=== PATIENT | female | born 1945 | race Caucasian/White ===

== ENCOUNTER 2016-11-24 05:46 | Outpatient (CLI) | payer MEDICARE ==
[~2016-11-24] VITALS: Ht 170.2 cm; Wt 122.5 kg
[~2016-11-24 05:46] MED LIST: ALBU8.5H2 IH; ALBUTEROL 90 MCG; ALPR.5T PO; AMLO1CAP31 PO; ASPI-84 PO; ATOR20TA66 PO; CALC-250 PO; CEFP500T4 PO; CHOL10003; CHOL10003 PO; CHOL2000 PO; CIPR-225 PO; CPR500T PO; ENXP40I.4 SQ; ERGO400C PO; ESTR0.3T PO; ESTR0.5T PO; EZET1TAB43 PO; FESO8TAB PO; FEXO-104 PO; FLONASE 50 MCG; FLT05NA16 NSEACH; FLUT16SP22 NS; HYDR-3454 PO; HYDR-3730 PO; HYDR1TAB PO; HYOS0.1217 SL; METH4TAB PO; MNTL10T PO; MTP100TCR PO; OXYC-309 PO; OXYC10TA8 PO; PREMARIN CREAM; SLMFT1E INH; SOLI10TA4 PO; SRTR100T PO; TR1C15; TRAZ50TA67 PO; TRIA1CAP4 PO
== END 2016-11-24 14:11 ==
LOC: PREOP 05:46
PROVIDERS: ATTEND Surgery Pediatric Surgery
DX: Z01.818 Encounter for other preprocedural examination (principal); Z86.010 Personal history of colon polyps

== ENCOUNTER 2016-11-27 11:29 | Day surgery (SDC) | payer MEDICARE ==
[~2016-11-27] VITALS: Ht 170.2 cm; Wt 122.5 kg
[2016-11-27] MEDS ORDERED: NS IV 500 ML 500 ML ONE (11:37)
[2016-11-27] MEDS ORDERED: LIDOCAINE JELLY 2% (XYLOCAINE) 5 ML TUBE MM PRN (11:45)
[2016-11-27] MEDS ORDERED: FLUMAZENIL (ROMAZICON) 0.1 MG/ML 5 ML VIAL INJ PRN (11:45)
[2016-11-27] MEDS ORDERED: NALOXONE 0.4 MG/ML 1 ML (NARCAN) VIAL IVP PRN (11:45)
[2016-11-27] MEDS ORDERED: NS IV 500 ML 500 ML IV PRN (12:00)
[2016-11-27 12:02] VITALS: BP 139/82
[2016-11-27] MEDS ORDERED: LIDOCAINE JELLY 2% (XYLOCAINE) 5 ML TUBE ONE (12:08)
[2016-11-27] MEDS ORDERED: fentaNYL INJECTION 100 MCG/2 ML AMP ONE ×2 (12:08)
[2016-11-27] MEDS ORDERED: MIDAZOLAM 2 MG/2 ML (VERSED) VIAL ONE ×4 (12:09)
[2016-11-27] MEDS: MIDAZOLAM 2 MG/2 ML (VERSED) VIAL IVP PRN ×3 (12:10→12:18)
[2016-11-27] MEDS: fentaNYL INJECTION 100 MCG/2 ML AMP IVP PRN ×2 (12:11→12:15)
--- NOTE | 2016-11-27 12:44 | Progress Note-Pre Operative ---
Pre-Operative Progress Note H&P Reviewed The H&P was reviewed, patient examined and no changes noted. Date H&P Reviewed: November 27, 2016 Time H&P Reviewed: 11:20 Pre-Operative Diagnosis: hx colon polyp, family hx colon ca JACOBO VALENCIA MD November 27, 2016 12:44 pm
--- NOTE | 2016-11-27 12:44 | Conscious Sedation/ASA ---
Conscious Sedation Pre-Proced Time Reviewed: 11:20 ASA Class: 2 Airway Mallampati Classification: ([place] appropriate class) I. II. III, IV Lungs Heart ASA score ASA 1: a normal healthy patient ASA 2: a patient with a mild systemic disease (mid diabetes, controlled hypertension, obesity ASA 3: a patient with a severe systemic disease that limits activity (angina , COPD, prior Myocardial infarction) ASA 4: a patient with an incapacitating disease that is a constant threat to life (CHF, renal failure) ASA 5: a moribund patient not expected to survive 24 hrs. (ruptured aneurysm) ASA 6: a declared brain patient whose organs are being harvested. For emergent operations, add the letter E after the classification Grade 3 Sedation Plan: Analgesia, Amnesia, Plan communicated to team members, Discussed options with patient/fam, Discussed risks with patient/fam Note The patient is an appropriate candidate to undergo the planned procedure, sedation, and anesthesia. The patient immediately re-assessed prior to indication. JACOBO VALENCIA MD November 27, 2016 12:44 pm
--- NOTE | 2016-11-27 12:46 | Progress Note-Post Operative ---
Post-Operative Progess Note Surgeon (s)/Hr Clerk (s) Surgeon JACOBO VALENCAI MD Hr Clerk: none Pre-Operative Diagnosis hx colon polyp, family hx colon ca Post-Operative Diagnosis chronic stage 1-2 ext and int hemorrhoids, mild sigmoid diverticulosis. Post-Op Procedure Note Date of Procedure: November 27, 2016 Name of Procedure Performed: Colonoscopy Description of the Procedure: Colonoscopy Findings of the Procedure . Anesthesia Type CS Estimated blood loss (mL): minimal Specimen(s) collected/removed none JACOBO VALENCIA MD November 27, 2016 12:46 pm
--- NOTE | 2016-11-27 12:47 | Discharge Inst-Surgical ---
D/C Lap Instructions-ANNIE Follow Up 5 years Activity as tolerated High Fiber Diet 25g or more per day Avoid Alcohol, Caffeine, Spicy [place] and Acid foods. Drink 64 fluid oz or more of fluids per day. Symptoms to Report: Fever over 101 degree F, Nausea/Vomiting If any problems/questions: Contact your physician or go to Emergency Room JACOBO VALENCIA MD November 27, 2016 12:47 pm
[2016-11-27 13:00] VITALS: BP 134/78
[2016-11-27 13:29] VITALS: BP 136/70
[2016-11-27 13:30] VITALS: BP 136/70
--- NOTE | 2016-11-27 13:41 | OPERATIVE REPORT ---
DATE OF SERVICE: 11/27/2016 PRIMARY CARE PHYSICIAN: Dr. Broderick. PREOPERATIVE DIAGNOSIS: History of colon polyp, family history of colon cancer. POSTOPERATIVE DIAGNOSIS: Chronic stage I external and internal hemorrhoids, mild sigmoid diverticulosis. PROCEDURE: Colonoscopy. SURGEON: Dr. Clements. ANESTHESIA: Conscious sedation. ESTIMATED BLOOD LOSS: Minimal. FINDINGS: Chronic stage I-II external and internal hemorrhoids, not actively edematous or inflamed and no bleeding. There was a mild or early sigmoid diverticulosis. The remainder of the colon was normal. There were no polyps identified. The patient is a 71-year-old female who we have seen before in the past. She underwent a ventral abdominal incisional hernia repair with mesh on 06/04/2016. She is doing well from that standpoint; however, is in need of a followup colonoscopy. She has had a total of three colonoscopies done in the past with the last one done in 2008 where two hyperplastic polyps were identified. She reports for the most part she is having normal bowel movements. She does not report any major issues of diarrhea or constipation, as well as no red blood per rectum or any dark tarry stools. She does have a family history of colon cancer with her father having the disease. The patient was brought to the endoscopy suite, laid in the left lateral decubitus position. After adequate IV pain and sedating medications and general anesthesia, a digital rectal examination was performed. Chronic stage II external internal hemorrhoids were identified which are not actively edematous or inflamed and no bleeding. Normal sphincter tone was felt and there were no palpable masses. The endoscope was then intubated to the anus and rectum and gently insufflated. The endoscope was then advanced to the [facility] [place] in the rectum with no polyps or any neoplasms identified. A mild or early sigmoid diverticulosis identified. There were no mucosal inflammatory changes to indicate any active diverticulitis. The endoscope was then advanced to the remainder of the descending, transverse, ascending colon to the cecum. These segments were normal. There were no polyps or any neoplasms identified throughout the colon or rectum. The endoscope was then slowly withdrawn while taking a second look and suctioning residual air with no additional findings. The patient tolerated the procedure well. We will recommend a high fiber diet with at least 25 grams of fiber daily to promote soft stools on a daily basis. We will also recommend a followup colonoscopy in approximately 5 years due to her family history of colon cancer. Job ID: [id number] DocumentID: [id number] Dictated Date: 11/27/2016 12:39:26 Property Utilization Officer Date: 11/27/2016 13:41:19 Dictated By: JACOBO CLEMENTS MD
== END 2016-11-27 13:31 | disposition home or self-care (01) ==
LOC: ENDO 11:29
PROVIDERS: ATTEND Surgery Pediatric Surgery
DX: Z12.11 Encounter for screening for malignant neoplasm of colon (principal); K57.30 Diverticulosis of large intestine without perforation or abscess without bleeding; K64.0 First degree hemorrhoids; Z86.010 Personal history of colon polyps; Z80.0 Family history of malignant neoplasm of digestive organs; I10 Essential (primary) hypertension; E78.00 Pure hypercholesterolemia, unspecified; G47.33 Obstructive sleep apnea (adult) (pediatric); J45.909 Unspecified asthma, uncomplicated; E66.01 Morbid (severe) obesity due to excess calories; Z68.41 Body mass index [BMI] 40.0-44.9, adult; Z79.899 Other long term (current) drug therapy

== ENCOUNTER → 2016-12-22 | Outpatient (CLI) | payer MEDICARE | LOC: RAD 09:22 | PROVIDERS: ATTEND Internal Medicine | DX: Z12.31 Encounter for screening mammogram for malignant neoplasm of breast (principal) | CPT/HCPCS: 77067 ==

== ENCOUNTER 2016-12-29 01:03 | Observation (INO) | payer MEDICARE ==
[~2016-12-29] VITALS: Ht 170.2 cm; Wt 127.1 kg
[2016-12-29] VITALS (10 sets, daily range): BP systolic 123–157; BP diastolic 59–82
[2016-12-29 01:23] LABS: BASOPHILS % (AUTO) 0 % (0-10); EOSINOPHILS # (AUTO) 0.3 10^3/uL (0.0-0.3); EOSINOPHILS % (AUTO) 3 % (0-10); LYMPHOCYTES # (AUTO) 2.6 X 10^3 (1.0-4.0); LYMPHOCYTES % (AUTO) 26 % (12-44); MEAN CORPUSCULAR HEMOGLOBIN 29 PG (25-34); MEAN CORPUSCULAR HGB CONC 33 G/DL (32-36); MEAN CORPUSCULAR VOLUME 87 FL (80-99); MEAN PLATELET VOLUME 9.7 FL (7.4-10.4); MONOCYTES # (AUTO) 0.8 X 10^3 (0.0-1.0); MONOCYTES % (AUTO) 8 % (0-12); NEUTROPHILS # (AUTO) 6.2 X 10^3 (1.8-7.8); NEUTROPHILS % (AUTO) 63 % (42-75); PLATELET COUNT 212 10^3/uL (130-400); RED BLOOD COUNT 4.95 10^6/uL (4.35-5.85); RED CELL DISTRIBUTION WIDTH 14.6 % (10.0-14.5)
[2016-12-29 01:33] LABS: BILIRUBIN,URINE NEGATIVE (NEGATIVE); KETONES,URINE NEGATIVE (NEGATIVE); LEUKOCYTE ESTERASE ,URINE 3+ (NEGATIVE); NITRITE,URINE POSITIVE (NEGATIVE); PH,URINE 6 (5-9); PROTEIN,URINE NEGATIVE (NEGATIVE); UROBILINOGEN,URINE NORMAL (NORMAL)
[2016-12-29 01:33] LABS: INR 0.9 (0.8-1.4); PROTHROMBIN TIME PATIENT 11.5 SEC (12.2-14.7)
[2016-12-29 01:44] LABS: WBC,URINE 25-50 /HPF
[2016-12-29 01:44] LABS: ALANINE AMINOTRANSFERASE 22 U/L (0-55); ALBUMIN 3.8 G/DL (3.2-4.5); ANION GAP 13 MMOL/L (5-14); ASPARTATE AMINO TRANSFERASE 22 U/L (5-34); BILIRUBIN,TOTAL 0.7 MG/DL (0.1-1.0); BLOOD UREA NITROGEN 20 MG/DL (7-18); BUN/CREATININE RATIO 21; CALCIUM 9.3 MG/DL (8.5-10.1); CARBON DIOXIDE 22 MMOL/L (21-32); CHLORIDE 106 MMOL/L (98-107); CREATININE SERUM 0.96 MG/DL (0.60-1.30); GFR ESTIMATED 58; GLUCOSE 113 MG/DL (70-105); POTASSIUM 4.3 MMOL/L (3.6-5.0); SODIUM 141 MMOL/L (135-145)
[2016-12-29 01:50] LABS: TROPONIN I < 0.30 NG/ML (<0.30)
[2016-12-29] MEDS ORDERED: cefTRIAXone INJECTION 1,000 MG in NS (IVPB) 50 ML IV ONE (02:00)
--- NOTE | 2016-12-29 02:13 | ED Neurological Problem ---
General Chief Complaint: Neuro-Stroke Like Symptoms Stated Complaint: DISORIENTED Nursing Triage Note: brought in by [facility] for altered mental status, delayed speech, last known well time approx. 2230 12/28/16 Nursing Sepsis Screen: No Definite Risk Source: patient, family Exam Limitations: no limitations History of Present Illness Time seen by provider: 01:06 Initial Comments This 71-year-old woman presents to the emergency room accompanied by her with complaints of stuttering and slow speech. She started feeling this way upon waking from sleep about 30 minutes prior to arrival. Her last known well time was at 22:15 when she went to bed. She arrives via EMS and her [place] stroke screening was negative. Fingerstick blood sugar was 120. Rhythm per EMS was normal sinus rhythm. Stroke activation was paged and patient was sent to CT. She also complains of some right posterior knee pain. Patient does feel anxious. She denies any focal numbness or weakness. Her systems project manager is Dr. Ang. Her primary care provider is Dr. Darnell. Allergies and Home Medications Allergies Coded Allergies: No Known Drug Allergies (Verified , 01/21/09) Home Medications Albuterol 8.5 Gm Hfa.aer.ad, 2 PUFF IH PRN Q4H, (Reported) Amlodipine Besylate/Benazepril 1 Each Capsule, 1 EACH PO DAILY, Ref 0 (Reported) Aspirin 81 Mg Tablet.dr, 81 MG PO daily, Ref 0 (Reported) Atorvastatin 20 Mg Tablet, 20 MG PO HS, (Reported) Cholecalciferol 5,000 Unit Capsule, 5,000 UNIT PO DAILY, (Reported) Estradiol 0.5 Mg Tablet, 0.5 MG PO DAILY, (Reported) Fluticasone Propionate 16 Gm Naspr, 1 SPRAY NS NEEDED, (Reported) Metoprolol Succinate 100 Mg Tab, 100 MG PO BID, Ref 0 (Reported) Montelukast Sodium 10 Mg Tab, 10 MG PO HS, Ref 0 (Reported) Salmeterol Xinaf/Fluticasone 1 Diskus Inhp, 0 DISKUS INH DAILY PRN, (Reported) Sertraline Hcl 100 Mg Tab, 150 MG PO DAILY, Ref 0 (Reported) TAKE 1 1/2 OF 100 MG TAB TO TOTAL 150MG Trazodone Hcl 50 Mg Tablet, 50 MG PO HS, Ref 0 (Reported) Triamterene/Hydrochlorothiazid 1 Each Capsule, 1 EACH PO DAILY, (Reported) Constitutional: no symptoms reported Eyes: No Symptoms Reported Ears, Nose, Mouth, Throat: no symptoms reported Respiratory: no symptoms reported Cardiovascular: no symptoms reported Gastrointestinal: no symptoms reported Genitourinary: no symptoms reported : No Musculoskeletal: see HPI Skin: no symptoms reported Psychiatric/Neurological: See HPI Endocrine: No Symptoms Reported Past Duolkcm-Tplndv-Oqbzxh Hx Patient Social History Alcohol Use: Denies Use Recreational Drug Use: No Smoking Status: Never a Smoker 2nd Hand Smoke Exposure: No Recent Foreign Travel: No Contact w/Someone Who Travel: No Recent Infectious Disease Expo: No Recent Hopitalizations: No Immunizations Up To Date Tetanus Booster (TDap): Less than 5yrs Date of Pneumonia Vaccine: May 22, 2015 Date of Influenza Vaccine: May 22, 2016 Seasonal Allergies Seasonal Allergies: No Surgeries HX Surgeries: Yes (HIATAL HERNIA, L TKR, R HIP REPLACEMENT, BLADDER x8, BILAT FOOT SX) Surgeries: Bladder Surgery, Gallbladder, Hysterectomy, Joint Replacement, Orthopedic Respiratory Hx Respiratory Disorders: Yes Respiratory Disorders: Asthma, Sleep Apnea Cardiovascular Hx Cardiac Disorders: Yes (history of tachycardia) Cardiac Disorders: High Cholesterol, Hypertension Neurological Hx Neurological Disorders: No Reproductive System : No Hx Reproductive Disorders: No Sexually Transmitted Disease: No 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 Genitourinary Hx Genitourinary Disorders: Yes (FOR STRESS INCONTINENCE, BOTOX INJECTIONS INTO BLADDER ) Genitourinary Disorders: UTI-Chronic Gastrointestinal Hx Gastrointestinal Disorders: Yes Gastrointestinal Disorders: Abdominal Hernia, Diverticulosis Musculoskeletal Hx Musculoskeletal Disorders: Yes Musculoskeletal Disorders: Arthritis Endocrine Hx Endocrine Disorders: No Endocrine Disorders: Diabetes, Non-Insulin dep HEENT HX ENT Disorders: Yes (GLASSES) HEENT Disorders: Cataract Loss of Vision: Bilateral Hearing Impairment: Denies Cancer Hx Cancer: No Psychosocial Hx Psychiatric Problems: Yes Behavioral Health Disorders: Anxiety, Depression Integumentary HX Skin/Integumentary Disorder: No Blood Transfusions Hx Blood Disorders: No Physical Exam Vital Signs Vital Sign - Last 12Hours 12/29/16 01:09 Temp 99.3 Pulse 52 Resp 16 B/P (MAP) 173/80 Pulse Ox 97 O2 Delivery Room Air Capillary Refill : Less Than 3 Seconds General Appearance: WD/WN, no apparent distress HEENT: PERRL/EOMI, normal ENT inspection, pharynx normal Neck: normal inspection Respiratory: lungs clear, normal breath sounds, no respiratory distress, no accessory muscle use Cardiovascular: regular rate, rhythm, no edema, no murmur Gastrointestinal: normal bowel sounds, non tender, soft Extremities: normal inspection, no pedal edema Neurologic/Psychiatric: no motor/sensory deficits, alert, normal mood/affect, oriented x 3, other (stuttering with delayed speech) Crainal Nerves: normal hearing, PERRL Coordination/Gait: normal finger to nose, abnormal gait (slow deliberate gait) Motor/Sensory: no motor deficit, no sensory deficit, no pronator drift Skin: normal color, warm/dry Stroke NIH Stroke Scale Assessment Level of Consciousness: 0=Alert Level of Consciousness-[place]: 0=Answers both month/age LOC Commands: 0=Performs both tasks Gaze: 0=Normal Visual [place]: 0=No visual loss Facial Movement (Facial Paresi: 0=Normal symmetrical mnt Motor Function-Arms Right: 0=No drift Motor Function-Arms Left: 0=No drift Motor Function-Legs Right: 0=No drift Limb Ataxia: 0=Absent Sensory: 0=Normal:no loss Best Language: 0=No aphasia Dysarthria: 0=Normal Extinction & Inattention: 0=No abnormality NIH Stroke Scale Score: 0 Progress/Results/Core Measures Results/Orders Lab Results Laboratory Tests Test 12/29/16 01:10 12/29/16 01:20 Range/Units White Blood Count 10.0 4.3-11.0 10^3/uL Red Blood Count 4.95 4.35-5.85 10^6/uL Hemoglobin 14.3 11.5-16.0 G/DL Hematocrit 43 35-52 % Mean Corpuscular Volume 87 80-99 FL Mean Corpuscular Hemoglobin 29 25-34 PG Mean Corpuscular Hemoglobin Concent 33 32-36 G/DL Red Cell Distribution Width 14.6 H 10.0-14.5 % Platelet Count 212 130-400 10^3/uL Mean Platelet Volume 9.7 7.4-10.4 FL Neutrophils (%) (Auto) 63 42-75 % Lymphocytes (%) (Auto) 26 12-44 % Monocytes (%) (Auto) 8 0-12 % Eosinophils (%) (Auto) 3 0-10 % Basophils (%) (Auto) 0 0-10 % Neutrophils # (Auto) 6.2 1.8-7.8 X 10^3 Lymphocytes # (Auto) 2.6 1.0-4.0 X 10^3 Monocytes # (Auto) 0.8 0.0-1.0 X 10^3 Eosinophils # (Auto) 0.3 0.0-0.3 10^3/uL Basophils # (Auto) 0.0 0.0-0.1 10^3/uL Prothrombin Time 11.5 L 12.2-14.7 SEC INR Comment 0.9 0.8-1.4 Activated Partial Thromboplast Time 22 L 24-35 SEC D-Dimer 0.67 H 0.00-0.49 UG/ML Sodium Level 141 135-145 MMOL/L Potassium Level 4.3 3.6-5.0 MMOL/L Chloride Level 106 98-107 MMOL/L Carbon Dioxide Level 22 21-32 MMOL/L Anion Gap 13 5-14 MMOL/L Blood Urea Nitrogen 20 H 7-18 MG/DL Creatinine 0.96 0.60-1.30 MG/DL Estimat Glomerular Filtration Rate 58 BUN/Creatinine Ratio 21 Glucose Level 113 H 70-105 MG/DL Calcium Level 9.3 8.5-10.1 MG/DL Total Bilirubin 0.7 0.1-1.0 MG/DL Aspartate Amino Transf (AST/SGOT) 22 5-34 U/L Alanine Aminotransferase (ALT/SGPT) 22 0-55 U/L Alkaline Phosphatase 79 40-136 U/L Troponin I < 0.30 <0.30 NG/ML Total Protein 7.0 6.4-8.2 G/DL Albumin 3.8 3.2-4.5 G/DL Urine Color YELLOW Urine Clarity SLIGHTLY CLOUDY Urine pH 6 5-9 Urine Specific [place] 1.010 L 1.016-1.022 Urine Protein NEGATIVE NEGATIVE Urine Glucose (UA) NEGATIVE NEGATIVE Urine Ketones NEGATIVE NEGATIVE Urine Nitrite POSITIVE H NEGATIVE Urine Bilirubin NEGATIVE NEGATIVE Urine Urobilinogen NORMAL NORMAL MG/DL Urine Leukocyte Esterase 3+ H NEGATIVE Urine RBC (Auto) 1+ H NEGATIVE Urine RBC NONE /HPF Urine WBC 25-50 H /HPF Urine Crystals NONE /LPF Urine Bacteria LARGE H /HPF Urine Casts NONE /LPF Urine Mucus NEGATIVE /LPF Urine Culture Indicated YES My Orders Orders - WOODY CAMPO MD Ct Head Wo (12/29/16 01:13) Cbc With Automated Diff (12/29/16 01:15) Protime With Inr (12/29/16 01:15) Partial Thromboplastin Time (12/29/16 01:15) Comprehensive Metabolic Panel (12/29/16 01:15) Fibrin Degradation Products (12/29/16 01:15) Troponin I (12/29/16 01:15) Ua Culture If Indicated (12/29/16 01:15) Chest 1 View, Ap/Pa Only (12/29/16 01:15) Ekg Tracing (12/29/16 01:15) Saline Lock/Iv-Start (12/29/16 01:15) Saline Lock/Iv-Start (12/29/16 01:15) Vital Signs-Stroke Q1H (12/29/16 01:15) O2 (12/29/16 01:15) Intake & Output 06,14,22 (12/29/16 01:15) Monitor-Rhythm Ecg Trace Only (12/29/16 01:15) Dysphagia Screening Tool (12/29/16 01:15) Urine Culture (12/29/16 01:20) Us Venous Lower Ext Rt (12/29/16 01:55) Ceftriaxone Injection (Rocephin Injectio (12/29/16 02:00) Aspirin Tablet (Aspirin Tablet) (12/29/16 02:15) Medications Given in ED Current Medications Medications Dose Ordered Sig/Lisa Route Start Time Stop Time Status Last Admin Dose Admin Aspirin 325 mg ONCE ONCE PO 12/29/16 02:15 12/29/16 02:16 DC 12/29/16 02:12 325 MG Ceftriaxone Sodium 1000 mg/ Sodium Chloride 50 ml @ 100 mls/hr ONCE ONCE IV 12/29/16 02:00 12/29/16 02:29 DC 12/29/16 02:05 100 MLS/HR Vital Signs/I&O Vital Sign - Last 12Hours 12/29/16 12/29/16 12/29/16 01:09 01:30 01:30 Temp 99.3 Pulse 52 49 Resp 16 21 B/P (MAP) 173/80 152/77 Pulse Ox 97 94 97 O2 Delivery Room Air Room Air Blood Pressure Mean: 111 Progress Note : Progress Note Stroke activation was paged after initial assessment. NIH stroke score was zero. Patient had subtle stuttering and delay of speech which appeared to resolve completely during her ER stay. Patient was not a TPA candidate due to very minor symptoms and low suspicion of stroke. Patient agrees with my assessment that TPA administration is not worth the risk. Urinary tract infection was identified. Urine cultures from prior visits were reviewed. Rocephin was selected as initial antibiotic therapy. Case was reviewed with Dr. Darnell who agrees with admission for observation and neuro checks. ECG Initial ECG Impression Date: Dec 29, 2016 Initial ECG Impression Time: 02:03 Initial ECG Rate: 51 Initial ECG Rhythm: Normal Sinus Comment Normal sinus rhythm with right bundle branch block and LVH. No ST elevation or depression. Diagnostic Imaging Diagonstic Imaging: Xray Plain Films/CT/US/NM/MRI: chest Comments Chest x-ray viewed by me and report available. No acute abnormalities appreciated. Diagonstic Imaging: CT Plain Films/CT/US/NM/MRI: head Comments CT head viewed by me and Stat Rad report reviewed. No acute abnormalities appreciated. Departure Communication Time/Spoke to Admitting Phy: 01:57 Impression Impression: Primary Impression: Dysarthria Additional Impression: Urinary tract infection Qualified Codes: N39.0 - Urinary tract infection, site not specified Disposition: ADMITTED INPATIENT Condition: Improved Decision to Admit Reason: Admit from ER (General) Decision to Admit/Date: Dec 29, 2016 Time/Decision to Admit Time: 01:57 Departure-Patient Inst. Referrals: ANAY DARNELL DO (PCP/Family) Primary Care Physician WOODY CAMPO MD Dec 29, 2016 02:13
[2016-12-29] MEDS ORDERED: ASPIRIN 325 MG (5 GR) TABLET PO ONE (02:15)
--- NOTE | 2016-12-29 07:18 | Diagnostic Imaging Report ---
PROCEDURE: CT head without contrast. TECHNIQUE: Multiple contiguous axial images were obtained through the brain without the use of intravenous contrast. INDICATION: CVA. FINDINGS: There is no mass, shift of midline or hemorrhage to suggest an acute intracranial abnormality. There is no evidence for an asymmetric hyperdense vessel either. The ventricles are not abnormally dilated and appear stable when compared to the prior exam of 06/15/14. There is cortical atrophy present. The degree of atrophy is consistent with the patient's age. The bone windows show no sign of a fracture or destructive lesion. The orbits are symmetrical and within normal limits. The sinuses are generally clear. IMPRESSION: 1. There is no evidence for an acute intracranial abnormality. When compared to the prior study, there has been no significant change. 2. If clinical concern regarding an underlying abnormality persists, then MRI would be recommended for further study. Dictated by: Dictated on workstation # [id number]
--- NOTE | 2016-12-29 07:59 | Diagnostic Imaging Report ---
INDICATION: Right leg pain. Right leg venous Doppler study was performed in the routine fashion with color flow Doppler and waveform analysis. FINDINGS: The right common femoral vein, superficial femoral vein, popliteal vein and visualized portion of the tibial veins show normal compressibility and venous flow patterns. There is normal augmentation. IMPRESSION: No evidence of deep vein thrombosis of the major veins of the right leg. Dictated by: Dictated on workstation # [id number]
--- NOTE | 2016-12-29 08:07 | Diagnostic Imaging Report ---
INDICATION: Stroke symptoms Frontal chest obtained at 1:33 a.m. Heart is mildly enlarged. There is no sign of edema or infiltrate or pleural fluid. There is no pneumothorax. IMPRESSION: Mild cardiomegaly with no acute process in the chest. Improved vascular congestion compared to 06/15/14. Dictated by: Dictated on workstation # [id number]
[2016-12-29] MEDS ORDERED: FLUT1DIS28 INH (08:15)
[2016-12-29] MEDS ORDERED: METO100T2 PO (08:15)
[2016-12-29] MEDS ORDERED: TRIA1TAB3 PO (08:15)
[2016-12-29] MEDS ORDERED: NAPR220T66 PO (08:16)
[2016-12-29] MEDS ORDERED: FLUTICASONE NASAL SPRAY (FLONASE) 16 GM BTL NS PRN (09:30)
--- NOTE | 2016-12-29 09:49 | Short Stay Summary-Hospitalist ---
HPI History of Present Illness: HPI/Chief Complaint CC: Stuttering w/altered mental status HPI: This is a 71-year-old white female clinic patient of mine for the past 12 years with past medical history of asthma, morbid obesity, osteoarthritis, insomnia, depression, and borderline diabetes the presents to the emergency room with abrupt onset of stuttering and thought that she may have sustained a stroke. She went for stroke protocol and that was ruled out but UTI was diagnosed of which she has multiple recurrent UTIs and sees urology [facility] regularly for procedures to prevent UTIs. She's never had issues like this before but she has become septic from UTI. At this current time patient feels much better has received Rocephin empirically urine culture pending and only having difficulties with right knee pain that she is unable to really ambulate well. Ultrasound was obtained in the right lower extremity showing no evidence of DVT and she has a history of Cuevas cyst and severe arthritis of the knees in the past that Dr. Rosenthal had managed before so I have talked to him and ordered x-rays and he will see the patient in consultation and I instructed her to bring back all of her home medication that I reconciled and bring back her walker which she has at home. Source: patient Exam Limitations: no limitations Date Seen 12/29/16 Attending Physician Breanna Darnell DO PCP Breanna Darnell DO Referring Physician Date of Admission Dec 29, 2016 at 02:17 Home Medications & Allergies Home Medications Reviewed patient Home Medication Reconciliation Form Allergies Allergies Coded Allergies No Known Drug Allergies (Verified01/21/09) Past Wfuhlxn-Wadpxn-Fnaxtp Hx Patient Social History Marrital Status: Employed/Student: retired Alcohol Use: Denies Use Recreational Drug Use: No Smoking Status: Never a Smoker 2nd Hand Smoke Exposure: No Physical Abuse Screen: No Sexual Abuse: No Recent Foreign Travel: No Contact w/other who traveled: No Recent Hopitalizations: No Recent Infectious Disease Expo: No Immunizations Up To Date Tetanus Booster (TDap): Less than 5yrs Date of Pneumonia Vaccine: May 22, 2015 Date of Influenza Vaccine: May 22, 2016 Seasonal Allergies Seasonal Allergies: No Surgeries HX Surgeries: Yes (HIATAL HERNIA, L TKR, R HIP REPLACEMENT, BLADDER x8, BILAT FOOT SX) Surgeries: Bladder Surgery, Gallbladder, Hysterectomy, Joint Replacement, Orthopedic Respiratory Hx Respiratory Disorders: Yes Respiratory Disorders: Asthma Cardiovascular Hx Cardiovascular Disorders: Yes (history of tachycardia) Cardiac Disorders: High Cholesterol, Hypertension Neurological Hx Neurological Disorders: No Reproductive System : No Hx Reproductive Disorders: No 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 Genitourinary Hx Genitourinary Disorders: Yes (FOR STRESS INCONTINENCE, BOTOX INJECTIONS INTO BLADDER ) Genitourinary Disorders: Bladder Infection, UTI-Chronic Gastrointestinal Hx Gastrointestinal Disorders: Yes Gastrointestinal Disorders: Abdominal Hernia, Diverticulosis Musculoskeletal Hx Musculoskeletal Disorders: Yes Musculoskeletal Disorders: Arthritis Endocrine Hx Endocrine Disorders: No Endocrine Disorders: Diabetes, Non-Insulin dep HEENT HX ENT Disorders: Yes (GLASSES) HEENT Disorders: Cataract Loss of Vision: Bilateral Hearing Impairment: Denies Cancer Hx Cancer: No Psychosocial Hx Psychiatric Problems: Yes Behavioral Health Disorders: Depression Integumentary HX Skin/Integumentary Disorder: No Blood Transfusions Hx Blood Disorders: No Family Medical History Family Hx: Arthritis 19 MOTHER Cataracts 19 FATHER 19 MOTHER Colon cancer 19 FATHER Deafness or hearing loss 19 FATHER Dementia 19 FATHER FH: macular degeneration 19 MOTHER FH: prostate cancer 19 FATHER FH: skin cancer 19 FATHER Gout 19 MOTHER Hypertension 19 FATHER 19 MOTHER Myocardial infarction 19 FATHER 19 MOTHER Review of Systems Date Seen by Provider: Dec 29, 2016 Time Seen by Provider: 09:50 Constitutional: see HPI, weakness EENTM: no symptoms reported Respiratory: no symptoms reported Cardiovascular: no symptoms reported Gastrointestinal: no symptoms reported Genitourinary: frequency Musculoskeletal: joint pain (right knee) Skin: no symptoms reported Psychiatric/Neurological: No Symptoms Reported All Other Systems Reviewed Negative Unless Noted: Yes Physical Exam Physical Exam Vital Signs Vital Sign - Last 12Hours 12/29/16 01:09 Temp 99.3 Pulse 52 Resp 16 B/P (MAP) 173/80 Pulse Ox 97 O2 Delivery Room Air Capillary Refill : Less Than 3 Seconds General Appearance: No Apparent Distress, WD/WN, Chronically ill, Obese Eyes: Bilateral Eye Normal Inspection, Bilateral Eye PERRL HEENT: PERRL/EOMI, Normal ENT Inspection, Pharynx Normal Neck: Full Range of Motion, Normal Inspection, Non Tender, Supple, Carotid Bruit Respiratory: Chest Non Tender, Lungs Clear, Normal Breath Sounds, No Accessory Muscle Use, No Respiratory Distress Cardiovascular: Regular Rate, Rhythm, No Edema, No Gallop, No JVD, No Murmur, Normal Peripheral Pulses Gastrointestinal: Normal Bowel Sounds, No Organomegaly, No Pulsatile Mass, Non Tender, Soft Back: Normal Inspection, No CVA Tenderness, No Vertebral Tenderness Extremity: Normal Capillary Refill, Normal Inspection, Normal Range of Motion ( decreased ROM right leg due to posterior knee pain), Non Tender, No Calf Tenderness, No Pedal Edema Neurologic/Psychiatric: Alert, Oriented x3, No Motor/Sensory Deficits, Normal Mood/Affect Skin: Normal Color, Warm/Dry Lymphatic: No Adenopathy Results Results/Procedures Lab Laboratory Tests 12/29/16 01:10 Short Stay Diagnosis Discharge Diagnosis-Short Stay Admission Diagnosis Assessment: Abrupt onset of neurological deficit manifested as stuttering but negative workup for stroke protocol UTI acute on chronic sees urologist at [facility] Morbid obesity Acute right posterior knee pain precluding ambulation Asthma Borderline diabetes Severe osteoarthritis of the knees Hypertension Hyperlipidemia Final Discharge Diagnosis Assessment: Abrupt onset of neurological deficit manifested as stuttering but negative workup for stroke protocol UTI acute on chronic sees urologist at [facility] Morbid obesity Acute right posterior knee pain precluding ambulation Asthma Borderline diabetes Severe osteoarthritis of the knees Hypertension Hyperlipidemia Conclusion Plan Plan: Empiric antibiotics Reviewed urine culture from 2014 and 2015 showing Escherichia coli pansensitive Reconcile all home meds Pain medication X-ray of right knee Consult Dr. ROSENTHAL Clinical Quality Measures DVT/VTE Risk/Contraindication: Risk Factor Score Per Nursin RFS Level Per Nursing on Admit: 4+=Very High BREANNA DARNELL DO Dec 29, 2016 09:49
[2016-12-29] MEDS ORDERED: HYDROcodone/APAP 5 MG/325 MG (LORTAB) TAB PO PRN (10:00)
[2016-12-29] MEDS ORDERED: amLODIPine 10 MG (NORVASC) TAB PO SCH (10:17)
[2016-12-29] MEDS ORDERED: meTOprolol TARTRATE 50 MG (LOPRESSOR) TAB PO SCH (10:18)
[2016-12-29] MEDS ORDERED: NAPROXEN 250 MG (NAPROSYN) TABLET PO PRN (10:30)
[2016-12-29] MEDS ORDERED: TRIAMTERENE/HCTZ 75-50 (MAXZIDE,DYAZIDE) TABLET PO SCH (10:30)
[2016-12-29] MEDS ORDERED: ESTRADIOL 1 MG TAB (ESTRACE) PO SCH (10:30)
[2016-12-29] MEDS ORDERED: RT-ALBUTEROL SULF 2.5 MG/3 ML PRE-MIX VIAL IH PRN (10:30)
--- NOTE | 2016-12-29 10:53 | Diagnostic Imaging Report ---
EXAMINATION: 3 views of the right knee. INDICATION: Right knee pain. FINDINGS: There is no fracture, dislocation or radiopaque foreign body. There is a tricompartmental osteoarthritis with the prominent osteophytes formation seen. There is a moderate suprapatellar effusion. No significant joint space narrowing in the medial and lateral compartments. There is suggestion of a significant joint space narrowing however in the patellofemoral compartment although this is better evaluated sunrise view. IMPRESSION: Mild to moderate osteoarthritis. Dictated by: Dictated on workstation # [id number]
[2016-12-29] MEDS ORDERED: LIDOCAINE 1% INJ 20 ML (XYLOCAINE) VIAL INJ NR (13:15)
[2016-12-29] MEDS ORDERED: BUPIVACAINE 0.25% 30 ML (SENSORCAINE) VIAL INJ NR (13:15)
[2016-12-29] MEDS ORDERED: DEXAMETHASONE 4 MG/ML SDV (DECADRON) IV NR (14:00)
[2016-12-29] MEDS ORDERED: HYDR-3812 PO (15:34)
[2016-12-29] MEDS ORDERED: AMOX-355 PO (15:34)
--- NOTE | 2016-12-29 17:30 | Consultation ---
KIZZY RODRIGUEZ [facility] 12/29/16 1730: History of Present Illness History of Present Illness Patient Consulted On(hayes/time) 12/29/16 17:25 Date of Admission Reason for Visit: admitted with stroke like symptoms and found to have a UTI/ Right knee History of Present Illness this 71-year-old female with admitted yesterday and found to have a urinary tract infection and is currently being treated. She is status post left total knee arthroplasty he and has been treated in the past for right knee pain also. Patient reports that she has done well with right knee Cortizone injections. she denies any recent injury or significant symptoms and involving the right knee. She does report pain and popping symptoms. Allergies and Home Medications Allergies Coded Allergies: No Known Drug Allergies (Verified , 01/21/09) Home Medications Albuterol 8.5 Gm Hfa.aer.ad, 2 PUFF IH Q4H PRN for SHORTNESS OF BREATH, ( Reported) Amlodipine Besylate/Benazepril 1 Each Capsule, 1 CAP PO DAILY, (Reported) Amoxicillin/Potassium Clav 1 Each Tablet, 1 EACH PO BID, #14 Prescribed by: ANAY DARNELL on 12/29/16 1534 Aspirin 81 Mg Tablet.dr, 81 MG PO DAILY, (Reported) Atorvastatin 20 Mg Tablet, 20 MG PO HS, (Reported) Cholecalciferol 5,000 Unit Capsule, 5,000 UNIT PO DAILY, (Reported) Estradiol 0.5 Mg Tablet, 0.5 MG PO DAILY, (Reported) Fluticasone Propionate 16 Gm Naspr, 2 SPRAY NS DAILY PRN for CONGESTION, ( Reported) Fluticasone/Salmeterol 1 Each Blst.w.dev, 1 PUFF INH BID PRN for SHORTNESS OF BREATH, (Reported) Hydrocodone/Acetaminophen 1 Each Tablet, 1 TAB PO Q4H PRN for PAIN-MODERATE, #30 Prescribed by: ANAY DARNELL on 12/29/16 1534 Metoprolol Tartrate 100 Mg Tablet, 100 MG PO BID, (Reported) Montelukast Sodium 10 Mg Tab, 10 MG PO HS, (Reported) Naproxen Sodium 220 Mg Tablet, 220 MG PO Q8H PRN for PAIN-MILD, (Reported) Sertraline Hcl 100 Mg Tab, 150 MG PO DAILY, (Reported) TAKES 1 & 1/2 (100MG) TABLET Trazodone Hcl 50 Mg Tablet, 50 MG PO HS, (Reported) Triamterene/Hydrochlorothiazid 1 Each Tablet, 1 TAB PO DAILY, (Reported) Past Qvzfrij-Fchwtn-Wdvbgt Hx Patient Social History Alcohol Use: Denies Use Recreational Drug Use: No Smoking Status: Never a Smoker 2nd Hand Smoke Exposure: No Recent Foreign Travel: No Contact w/Someone Who Travel: No Recent Infectious Disease Expo: No Recent Hopitalizations: No Physical Abuse Screen: No Sexual Abuse: No Immunizations Up To Date Tetanus Booster (TDap): Less than 5yrs Date of Pneumonia Vaccine: May 22, 2015 Date of Influenza Vaccine: May 22, 2016 Seasonal Allergies Seasonal Allergies: No Surgeries HX Surgeries: Yes (HIATAL HERNIA, L TKR, R HIP REPLACEMENT, BLADDER x8, BILAT FOOT SX) Surgeries: Bladder Surgery, Gallbladder, Hysterectomy, Joint Replacement, Orthopedic Respiratory Hx Respiratory Disorders: Yes Respiratory Disorders: Asthma, Sleep Apnea Cardiovascular Hx Cardiac Disorders: Yes (history of tachycardia) Cardiac Disorders: High Cholesterol, Hypertension Neurological Hx Neurological Disorders: No Reproductive System : No Hx Reproductive Disorders: No 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 Genitourinary Hx Genitourinary Disorders: Yes (FOR STRESS INCONTINENCE, BOTOX INJECTIONS INTO BLADDER ) Genitourinary Disorders: Bladder Infection, UTI-Chronic Gastrointestinal Hx Gastrointestinal Disorders: Yes Gastrointestinal Disorders: Abdominal Hernia, Diverticulosis Musculoskeletal Hx Musculoskeletal Disorders: Yes Musculoskeletal Disorders: Arthritis Endocrine Hx Endocrine Disorders: No Endocrine Disorders: Diabetes, Non-Insulin dep HEENT HX ENT Disorders: Yes (GLASSES) HEENT Disorders: Cataract Loss of Vision: Bilateral Hearing Impairment: Denies Cancer Hx Cancer: No Psychosocial Hx Psychiatric Problems: Yes Behavioral Health Disorders: Depression Integumentary HX Skin/Integumentary Disorder: No Blood Transfusions Hx Blood Disorders: No Family Medical History Family Medial History: Arthritis 19 MOTHER Cataracts 19 FATHER 19 MOTHER Colon cancer 19 FATHER Deafness or hearing loss 19 FATHER Dementia 19 FATHER FH: macular degeneration 19 MOTHER FH: prostate cancer 19 FATHER FH: skin cancer 19 FATHER Gout 19 MOTHER Hypertension 19 FATHER 19 MOTHER Myocardial infarction 19 FATHER 19 MOTHER Physical Exam-General Problems Physical Exam Vital Signs Vital Sign - Last 12Hours 12/29/16 01:09 Temp 99.3 Pulse 52 Resp 16 B/P (MAP) 173/80 Pulse Ox 97 O2 Delivery Room Air Capillary Refill : Less Than 3 Seconds Extremities: normal range of motion, non-tender, normal inspection, no pedal edema, no calf tenderness, normal capillary refill, pelvis stable, calf tenderness, inflammation, pedal edema, slow capillary refill, swelling, other Assessment/Plan Assessment/Plan Admission Diagnosis/Plan Diagnosis: right knee synovitis Plan:under sterile conditions with alcohol and Betadine prep the right knee was injected with 8 mg of Decadron and 2 mL each of lidocaine and Marcaine. She tolerated the injection well. Standard post injection precautions where discussed and ice treatments were recommended. She will call for outpatient follow-up in four weeks or as needed. Clinical Quality Measures DVT/VTE Risk/Contraindication: Risk Factor Score Per Nursin RFS Level Per Nursing on Admit: 4+=Very High STEPHANIE ARIAS MD 12/30/16 1153: Allergies and Home Medications Allergies Coded Allergies: No Known Drug Allergies (Verified , 01/21/09) Home Medications Albuterol 8.5 Gm Hfa.aer.ad, 2 PUFF IH Q4H PRN for SHORTNESS OF BREATH, ( Reported) Amlodipine Besylate/Benazepril 1 Each Capsule, 1 CAP PO DAILY, (Reported) Amoxicillin/Potassium Clav 1 Each Tablet, 1 EACH PO BID, #14 Prescribed by: ANAY DARNELL on 12/29/16 1534 Aspirin 81 Mg Tablet.dr, 81 MG PO DAILY, (Reported) Atorvastatin 20 Mg Tablet, 20 MG PO HS, (Reported) Cholecalciferol 5,000 Unit Capsule, 5,000 UNIT PO DAILY, (Reported) Estradiol 0.5 Mg Tablet, 0.5 MG PO DAILY, (Reported) Fluticasone Propionate 16 Gm Naspr, 2 SPRAY NS DAILY PRN for CONGESTION, ( Reported) Fluticasone/Salmeterol 1 Each Blst.w.dev, 1 PUFF INH BID PRN for SHORTNESS OF BREATH, (Reported) Hydrocodone/Acetaminophen 1 Each Tablet, 1 TAB PO Q4H PRN for PAIN-MODERATE, #30 Prescribed by: ANAY DARNELL on 12/29/16 1534 Metoprolol Tartrate 100 Mg Tablet, 100 MG PO BID, (Reported) Montelukast Sodium 10 Mg Tab, 10 MG PO HS, (Reported) Naproxen Sodium 220 Mg Tablet, 220 MG PO Q8H PRN for PAIN-MILD, (Reported) Sertraline Hcl 100 Mg Tab, 150 MG PO DAILY, (Reported) TAKES 1 & 1/2 (100MG) TABLET Trazodone Hcl 50 Mg Tablet, 50 MG PO HS, (Reported) Triamterene/Hydrochlorothiazid 1 Each Tablet, 1 TAB PO DAILY, (Reported) Past Lbinkps-Qcflfr-Dxspbe Hx Family Medical History Family Medial History: Arthritis 19 MOTHER Cataracts 19 FATHER 19 MOTHER Colon cancer 19 FATHER Deafness or hearing loss 19 FATHER Dementia 19 FATHER FH: macular degeneration 19 MOTHER FH: prostate cancer 19 FATHER FH: skin cancer 19 FATHER Gout 19 MOTHER Hypertension 19 FATHER 19 MOTHER Myocardial infarction 19 FATHER 19 MOTHER KIZZY RODRIGUEZ Dec 29, 2016 17:30 STEPHANIE ARIAS MD Dec 30, 2016 11:53
[2016-12-29] MEDS ORDERED: RT-ADVAIR HFA 115/21 MCG PER PUFF IH PRN (20:00)
[2016-12-29] MEDS ORDERED: traZODone 50 MG (DESYREL) TAB PO SCH (21:00)
[2016-12-29] MEDS ORDERED: ATORVASTATIN 20 MG (LIPITOR) TABLET PO SCH (21:00)
[2016-12-29] MEDS ORDERED: MONTELUKAST 10 MG (SINGULAIR) TAB PO SCH (21:00)
[2016-12-30] MEDS ORDERED: cefTRIAXone INJECTION 1,000 MG in NS (IVPB) 50 ML IV SCH (02:00)
[2016-12-30] MEDS ORDERED: ASPIRIN E.C. 81 MG (ECOTRIN) TAB PO SCH (09:00)
[2016-12-30] MEDS ORDERED: VITAMIN D3 5,000 UNITS (CHOLECALCIFEROL ) CAPSULE PO SCH (09:00)
[2016-12-30] MEDS ORDERED: SERTRALINE 100 MG (ZOLOFT) TAB PO SCH (09:00)
[2016-12-30] MEDS ORDERED: BENAZEPRIL 20 MG (LOTENSIN) TAB PO SCH (10:20)
== END 2016-12-29 17:04 | disposition home or self-care (01) ==
LOC: EDUNIT# 01:03 → ER 01:06 → UNDOADMOB 02:17 → 4TH 02:17
PROVIDERS: ADMIT Internal Medicine; ATTEND Internal Medicine
DX: F98.5 Adult onset fluency disorder (principal); N39.0 Urinary tract infection, site not specified; E66.01 Morbid (severe) obesity due to excess calories; M17.0 Bilateral primary osteoarthritis of knee; J45.909 Unspecified asthma, uncomplicated; R73.03 Prediabetes; I10 Essential (primary) hypertension; Z68.41 Body mass index [BMI] 40.0-44.9, adult
CPT/HCPCS: 36415; 70450; 71010; 73562; 80053; 81000; 84484; 85025; 85379; 85610; 85730; 87077; 87088; 87186; 93005; 93041; 99211; G0378

== ENCOUNTER → 2017-01-06 | Outpatient (CLI) | payer MEDICARE ==
[~2017-01-06] MED LIST changes: +AMOX-355 PO; +FLUT1DIS28 INH; +HYDR-3812 PO; +METO100T2 PO; +NAPR220T66 PO; +TRIA1TAB3 PO
== END ==
LOC: CARD 09:01
PROVIDERS: ATTEND Internal Medicine Cardiovascular Disease
DX: I25.10 Atherosclerotic heart disease of native coronary artery without angina pectoris (principal); E78.4 Other hyperlipidemia; I10 Essential (primary) hypertension; G47.33 Obstructive sleep apnea (adult) (pediatric); Z86.79 Personal history of other diseases of the circulatory system

== ENCOUNTER → 2018-03-11 | Outpatient (CLI) | payer MEDICARE ==
[~2018-03-11] MED LIST changes: +ACHD5005 PO; -HYDR-3812 PO; +METO100T12 PO; -METO100T2 PO
--- NOTE | 2018-03-11 10:41 | Diagnostic Imaging Report ---
INDICATION: Routine screening. Comparison is made with prior study from 12/22/2016 and 12/16/2015. 2-D and 3-D bilateral screening mammography was performed with a Computer Aided Detection (CAD) system. FINDINGS: Both breasts are heterogeneously dense, limiting the sensitivity of mammography. Rounded densities in both breasts are identified, waxing and waning in size consistent with cysts. No spiculated mass is seen. There are no malignant appearing microcalcifications. Benign calcifications are noted. The axillae are unremarkable. IMPRESSION: No mammographic features suspicious for malignancy are identified. ACR BI-RADS Category 2: Benign findings. Result letter will be mailed to the patient. Note: At least 10% of breast cancer is not imaged by mammography. Dictated by: Dictated on workstation # [id number]
== END ==
LOC: RAD 08:17
PROVIDERS: ATTEND Internal Medicine
DX: Z12.31 Encounter for screening mammogram for malignant neoplasm of breast (principal)
CPT/HCPCS: 77067

== ENCOUNTER 2018-10-02 20:38 | Inpatient (IN) | payer MEDICARE ==
[~2018-10-02] VITALS: Ht 170.2 cm; Wt 122.5 kg
[2018-10-02] MEDS ORDERED: NS IV 500 ML 500 ML IV ONE (21:05)
[2018-10-02] MEDS ORDERED: ASPIRIN 81 MG CHEW (CHILDREN'S ASA) PO ONE (21:15)
[2018-10-02] MEDS ORDERED: DILTIAZEM 25 MG/5 ML INJ (CARDIZEM) VIAL IVP ONE (21:30)
[2018-10-02] MEDS ORDERED: DILTIAZEM INJECTION 125 MG in NS (IVPB) 100 ML IV SCH (21:30)
[2018-10-02 21:32] LABS: BASOPHILS % (AUTO) 0 % (0-10); EOSINOPHILS # (AUTO) 0.2 10^3/uL (0.0-0.3); EOSINOPHILS % (AUTO) 2 % (0-10); HEMATOCRIT 43 % (35-52); HEMOGLOBIN 14.5 G/DL (11.5-16.0); LYMPHOCYTES # (AUTO) 1.8 X 10^3 (1.0-4.0); LYMPHOCYTES % (AUTO) 21 % (12-44); MEAN CORPUSCULAR HEMOGLOBIN 29 PG (25-34); MEAN CORPUSCULAR HGB CONC 34 G/DL (32-36); MEAN CORPUSCULAR VOLUME 87 FL (80-99); MEAN PLATELET VOLUME 9.5 FL (7.4-10.4); MONOCYTES # (AUTO) 0.5 X 10^3 (0.0-1.0); MONOCYTES % (AUTO) 6 % (0-12); NEUTROPHILS # (AUTO) 6.1 X 10^3 (1.8-7.8); NEUTROPHILS % (AUTO) 71 % (42-75); PLATELET COUNT 221 10^3/uL (130-400); RED CELL DISTRIBUTION WIDTH 14.3 % (10.0-14.5); WHITE BLOOD COUNT 8.6 10^3/uL (4.3-11.0)
[2018-10-02 21:45] LABS: INR 0.9 (0.8-1.4)
--- NOTE | 2018-10-02 21:45 | NUR ---
PT TOOK HOME ELIQUIS 5MG PO DOSE AT THIS TIME PER REQUEST OF DR. FOY.
[2018-10-02 21:51] LABS: ALANINE AMINOTRANSFERASE 19 U/L (0-55); ALKALINE PHOSPHATASE 90 U/L (40-136); BILIRUBIN,TOTAL 0.5 MG/DL (0.1-1.0); BUN/CREATININE RATIO 22; CALCIUM 9.3 MG/DL (8.5-10.1); CARBON DIOXIDE 22 MMOL/L (21-32); CHLORIDE 106 MMOL/L (98-107); GFR ESTIMATED > 60; GLUCOSE 189 MG/DL (70-105); MAGNESIUM 2.1 MG/DL (1.8-2.4); SODIUM 142 MMOL/L (135-145); TOTAL PROTEIN 7.1 GM/DL (6.4-8.2)
[2018-10-02 21:57] LABS: MYOGLOBIN SERUM 45.6 NG/ML (10.0-92.0)
--- NOTE | 2018-10-02 21:58 | Diagnostic Imaging Report ---
INDICATION: Shortness of air. EXAMINATION: Chest, 10/02/2018. 06/15/2014 COMPARISON: 12/29/2016. FINDINGS: There is cardiomegaly. Lungs are clear. No infiltrates, effusions or pneumothorax. The pulmonary vasculature is unremarkable. IMPRESSION: Cardiomegaly, otherwise negative chest. Please add up above a comparison of 2013 as well as Dictated by: Dictated on workstation # [id number]
[2018-10-02] MEDS ORDERED: meTOproloL SUCCINATE 50 MG (TOPROL XL) TAB PO SCH (22:30)
--- NOTE | 2018-10-02 22:46 | ED Cardiac General ---
History of Present Illness General Chief Complaint: Cardiac/General Problems Stated Complaint: A-FIB W/ RVR Source: patient Exam Limitations: no limitations History of Present Illness Date Seen by Provider: Oct 02, 2018 Time Seen by Provider: 21:00 Initial Comments Here with report of rapid heart rate. Feels the palpitations. Apparently just recently had bladder surgery at and after surgery she was told that she had atrial fibrillation as a result of the surgery and had fast heart rate. She was put on IV medicines and ultimately pills. Her heart rate improved after the IV medicines and they started her on some new medicines including flecainide. They did decrease her metoprolol as she was getting low heart rate. Arrives tonight with a palpitations and rapid heart rate in the 140s to 160s range. Blood pressure is normal. Denies chest pain otherwise. Timing/Duration: 1-3 hours Severity: moderate Location: central Activities at Onset: none Prior CP/Workup: cardiac cath, echocardiography, stress test NTG SL ENTRY SPECIALIST: No ASA po ENTRY SPECIALIST: No Associated Systoms: No Chest Pain, No Cough, No Diaphoresis, No Fever/Chills, No Nausea/Vomiting, No Shortness of Air, No Weakness Allergies and Home Medications Allergies Coded Allergies: No Known Drug Allergies (Verified , 01/21/09) Home Medications Albuterol 8.5 Gm Hfa.aer.ad, 2 PUFF IH Q4H PRN for SHORTNESS OF BREATH, ( Reported) Amlodipine Besylate/Benazepril 1 Each Capsule, 1 CAP PO DAILY, (Reported) Amoxicillin/Potassium Clav 1 Each Tablet, 1 EACH PO BID Prescribed by: ANAY DARNELL on 12/29/16 1534 Aspirin 81 Mg Tablet.dr, 81 MG PO DAILY, (Reported) Atorvastatin 20 Mg Tablet, 20 MG PO HS, (Reported) Cholecalciferol 5,000 Unit Capsule, 5,000 UNIT PO DAILY, (Reported) Estradiol 0.5 Mg Tablet, 0.5 MG PO DAILY, (Reported) Fluticasone Propionate 16 Gm Naspr, 2 SPRAY NS DAILY PRN for CONGESTION, ( Reported) Fluticasone/Salmeterol 1 Each Blst.w.dev, 1 PUFF INH BID PRN for SHORTNESS OF BREATH, (Reported) Hydrocodone Bit/Acetaminophen 1 Each Tablet, 1 TAB PO Q4H PRN for PAIN-MODERATE Prescribed by: ANAY DARNELL on 12/29/16 1534 Metoprolol Tartrate 100 Mg Tablet, 100 MG PO BID, (Reported) Montelukast Sodium 10 Mg Tab, 10 MG PO HS, (Reported) Naproxen Sodium 220 Mg Tablet, 220 MG PO Q8H PRN for PAIN-MILD, (Reported) Sertraline Hcl 100 Mg Tab, 150 MG PO DAILY, (Reported) TAKES 1 & 1/2 (100MG) TABLET Trazodone Hcl 50 Mg Tablet, 50 MG PO HS, (Reported) Triamterene/Hydrochlorothiazid 1 Each Tablet, 1 TAB PO DAILY, (Reported) Patient Home Medication List Home Medication List Reviewed: Yes Review of Systems Review of Systems Constitutional: see HPI; No chills, No fever EENTM: No Symptoms Reported Cardiovascular: See HPI, Irregular Heart Rate, Palpitations Gastrointestinal: Denies Abdominal Pain, Denies Nausea, Denies Vomiting Genitourinary: No Symptoms Reported All Other Systems Reviewed Negative Unless Noted: Yes Past Tjqbhir-Vgjhub-Ycnfkg Hx Past Med/Social Hx: Reviewed Nursing Past Med/Soc Hx Patient Social History Alcohol Use: Denies Use Recreational Drug Use: No Smoking Status: Never a Smoker 2nd Hand Smoke Exposure: No Recent Foreign Travel: No Contact w/Someone Who Travel: No Recent Hopitalizations: No Immunizations Up To Date Tetanus Booster (TDap): Less than 5yrs Date of Pneumonia Vaccine: May 22, 2015 Date of Influenza Vaccine: May 22, 2016 Seasonal Allergies Seasonal Allergies: No Past Medical History Surgeries: Yes (HIATAL HERNIA, L TKR, R HIP REPLACEMENT, BLADDER x8, BILAT FOOT SX) Bladder Surgery, Gallbladder, Hysterectomy, Joint Replacement, Orthopedic Respiratory: Yes Asthma, Sleep Apnea Currently Using CPAP: Yes Cardiac: Yes High Cholesterol, Hypertension Neurological: No 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 Sexually Transmitted Disease: No Genitourinary: No Bladder Infection, UTI-Chronic Gastrointestinal: Yes Abdominal Hernia, Diverticulosis Musculoskeletal: Yes Arthritis Endocrine: No Diabetes, Non-Insulin dep Cataract Loss of Vision: Bilateral Hearing Impairment: Denies Cancer: No Psychosocial: Yes Depression Integumentary: No Blood Disorders: No Family Medical History Reviewed Nursing Family Hx Arthritis 19 MOTHER Cataracts 19 FATHER 19 MOTHER Colon cancer 19 FATHER Deafness or hearing loss 19 FATHER Dementia 19 FATHER FH: macular degeneration 19 MOTHER FH: prostate cancer 19 FATHER FH: skin cancer 19 FATHER Gout 19 MOTHER Hypertension 19 FATHER 19 MOTHER Myocardial infarction 19 FATHER 19 MOTHER Physical Exam Vital Signs Capillary Refill : Height, Weight, BMI Height: 5'7.00" Weight: 280lbs. 4.8oz. [id number]; 43.9 BMI Method:Stated General Appearance: No Apparent Distress, WD/WN HEENT: PERRL/EOMI, Pharynx Normal Neck: Non Tender, Supple Respiratory: Lungs Clear, Normal Breath Sounds Cardiovascular: No Murmur, Irregularly Irregular, Tachycardia Gastrointestinal: Non Tender, Soft Extremity: Normal Range of Motion, Non Tender Neurologic/Psychiatric: Alert, Oriented x3 Skin: Normal Color, Warm/Dry Progress/Results/Core Measures Results/Orders Lab Results Laboratory Tests Test 10/02/18 21:25 Range/Units White Blood Count 8.6 4.3-11.0 10^3/uL Red Blood Count 4.98 4.35-5.85 10^6/uL Hemoglobin 14.5 11.5-16.0 G/DL Hematocrit 43 35-52 % Mean Corpuscular Volume 87 80-99 FL Mean Corpuscular Hemoglobin 29 25-34 PG Mean Corpuscular Hemoglobin Concent 34 32-36 G/DL Red Cell Distribution Width 14.3 10.0-14.5 % Platelet Count 221 130-400 10^3/uL Mean Platelet Volume 9.5 7.4-10.4 FL Neutrophils (%) (Auto) 71 42-75 % Lymphocytes (%) (Auto) 21 12-44 % Monocytes (%) (Auto) 6 0-12 % Eosinophils (%) (Auto) 2 0-10 % Basophils (%) (Auto) 0 0-10 % Neutrophils # (Auto) 6.1 1.8-7.8 X 10^3 Lymphocytes # (Auto) 1.8 1.0-4.0 X 10^3 Monocytes # (Auto) 0.5 0.0-1.0 X 10^3 Eosinophils # (Auto) 0.2 0.0-0.3 10^3/uL Basophils # (Auto) 0.0 0.0-0.1 10^3/uL Prothrombin Time 12.0 L 12.2-14.7 SEC INR Comment 0.9 0.8-1.4 Activated Partial Thromboplast Time 24 24-35 SEC Sodium Level 142 135-145 MMOL/L Potassium Level 4.0 3.6-5.0 MMOL/L Chloride Level 106 98-107 MMOL/L Carbon Dioxide Level 22 21-32 MMOL/L Anion Gap 14 5-14 MMOL/L Blood Urea Nitrogen 20 H 7-18 MG/DL Creatinine 0.90 0.60-1.30 MG/DL Estimat Glomerular Filtration Rate > 60 BUN/Creatinine Ratio 22 Glucose Level 189 H 70-105 MG/DL Calcium Level 9.3 8.5-10.1 MG/DL Corrected Calcium 9.3 8.5-10.1 MG/DL Magnesium Level 2.1 1.8-2.4 MG/DL Total Bilirubin 0.5 0.1-1.0 MG/DL Aspartate Amino Transf (AST/SGOT) 30 5-34 U/L Alanine Aminotransferase (ALT/SGPT) 19 0-55 U/L Alkaline Phosphatase 90 40-136 U/L Myoglobin 45.6 10.0-92.0 NG/ML Troponin I < 0.028 <0.028 NG/ML Total Protein 7.1 6.4-8.2 GM/DL Albumin 4.0 3.2-4.5 GM/DL My Orders Orders - FARHEEN FOY MD Cbc With Automated Diff (10/02/18 21:05) Magnesium (10/02/18 21:05) Chest 1 View, Ap/Pa Only (10/02/18 21:05) Ekg Tracing (10/02/18 21:05) Cardiac Profile 1 (10/02/18 21:05) Comprehensive Metabolic Panel (10/02/18 21:05) Myoglobin Serum (10/02/18 21:05) Protime With Inr (10/02/18 21:05) Partial Thromboplastin Time (10/02/18 21:05) O2 (10/02/18 21:05) Monitor-Rhythm Ecg Trace Only (10/02/18 21:05) Lipid Panel (10/03/18 06:00) Aspirin Chewable Tablet (Baby Aspirin Ch (10/02/18 21:15) Saline Lock/Iv-Start (10/02/18 21:05) Saline Lock/Iv-Start (10/02/18 21:05) Ns Iv 500 Ml (Sodium Chloride 0.9%) (10/02/18 21:05) Ns (Ivpb) (Sodium C... W/Diltiazem Injec (10/02/18 21:30) Diltiazem Injection (Cardizem Injection) (10/02/18 21:30) Metoprolol Succinate (Xl) Tab (Toprol Xl (10/02/18 22:30) Medications Given in ED Current Medications Medications Dose Ordered Sig/Lisa Route Start Time Stop Time Status Last Admin Dose Admin Aspirin 324 mg ONCE ONCE PO 10/02/18 21:15 10/02/18 21:16 DC 10/02/18 21:45 324 MG Diltiazem HCl 10 mg ONCE ONCE IVP 10/02/18 21:30 10/02/18 21:31 DC 10/02/18 21:44 10 MG Sodium Chloride 500 ml @ 0 mls/hr Q0M ONCE IV 10/02/18 21:05 10/02/18 21:06 DC 10/02/18 21:49 999 MLS/HR Progress Progress Note : Progress Note Seen and evaluated. IV, labs, EKG and chest x-ray ordered. ASA 324 mg by mouth. Patient did take her dose of liquids 5 mg by mouth. Cardizem bolus of 10 mg IV and drip of 10 mg an hour initiated. Normal saline 500 mL bolus ordered. Monitor patient. 2209 I did discuss the case with Dr. Darnell and she accepts patient for admission, inpatient status. I did discuss the case with Dr. Ang at 2217. He agrees with Rahulm. We will add metoprolol XL 50 mg by mouth now. Patient to be admitted to the ICU. Discussed with patient and family who agree with plan. Initial ECG Impression Date: Oct 02, 2018 Initial ECG Impression Time: 20:50 Initial ECG Rate: 154 Initial ECG Rhythm: A Fib/Flutter Comment Atrial fibrillation with rapid ventricular response. Normal axis. No evidence of ST elevation [place]. LVH noted. Right bundle branch block on this EKG. Interpreted by me. Diagnostic Imaging Diagonstic Imaging: Xray Plain Films/CT/US/NM/MRI: chest Comments NAME: TUSHAR ESTEVEZ [facility] REC#: [id number] PT STATUS: REG ER : 1945 PHYSICIAN: FARHEEN FOY MD ADMIT DATE: 10/02/18/ER Signed Date of Exam: 10/02/18 CHEST 1 VIEW, AP/PA ONLY INDICATION: Shortness of air. EXAMINATION: Chest, 10/02/2018. 06/15/2014 COMPARISON: 12/29/2016. FINDINGS: There is cardiomegaly. Lungs are clear. No infiltrates, effusions or pneumothorax. The pulmonary vasculature is unremarkable. IMPRESSION: Cardiomegaly, otherwise negative chest. Please add up above a comparison of 2013 as well as Dictated by: Dictated on workstation # [id number] Dict: 10/02/182141 Trans: 10/02/182226 Interpreted by: ALEXA DOUGHERTY MD Electronically signed by: ALEXA DOUGHERTY MD 10/02/182226 Departure Communication (Admissions) Time/Spoke to Admitting Phy: 22:10 Time/Spoke to Consulting Phy: 22:17 Impression Primary Impression: Atrial fibrillation with rapid ventricular response Disposition: ADMITTED INPATIENT Condition: Stable Admissions Decision to Admit Reason: Admit from ER (General) Decision to Admit/Date: Oct 02, 2018 Time/Decision to Admit Time: 22:10 Departure-Patient Inst. Referrals: ANAY DARENLL DO (PCP/Family) Primary Care Physician FARHEEN FOY MD Oct 02, 2018 22:46
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
--- OUTSIDE RECORDS SUMMARY | 2018-10-02 22:52 | XMS REPORT | Encounter Summary ---
Author Author [facility] Organization [facility] Address Unknown Phone Unavailable Care Team Providers Care Human Resources Benefits Manager Name Role Phone Alan Ramachandran MD Unavailable Shefali Herring MD Unavailable Breanna Broderick DO PCP Jody Salazar RN Unavailable Unavailable Jass Loving MD Unavailable Carla Bernal MD Unavailable Unavailable Louise Knott MD Unavailable Park Han RN Unavailable Unavailable Breanna Lazo MD Unavailable Unavailable Marjorie Wilburn RN Unavailable Unavailable Gumaro Lynne MD Unavailable Glory Ford RN Unavailable Unavailable Quintin Ivan RN Unavailable Unavailable Adeel Avila MD Unavailable Reason for Visit * Auth/Cert Referred By Contact Referred To Contact Status Reason Specialty Diagnoses / Procedures Diagnoses Urge urinary incontinence Urge urinary incontinence [N39.41] P rocedures AR CYSTOURETHROSCOPY INJ CHEMODENERVATION BLADDER CYSTOSCOPY WITH BOTOX INJECTION (150 UNITS) Encounter Details Care Team Description Date Type Department Nathanael Bradley SRNA 09/30/2018 Anesthesia Main Operating Room Event Main [facility] [address] [place] [address] Anesthesia Record Responsible Anesthesiologist Anesthesia Start Time Anesthesia Stop Time Procedure Name Pooja Morales MD 09/30/18 1002 09/30/18 1045 CYSTOSCOPY WITH BOTOX INJECTION (150 UNITS) (N/A ) Date Time Event Comment 932 AN Equip Check 2018 1002 1002 Anes Start 1005 An Start Data 1005 In Room 1010 An Induction The patient was reevaluated immediately before moderate or deep sedation use and before anesthesia induction. 1012 An Intubation 1014 Anesthesia Ready 1021 Antibiotic Given 1025 Proc Start 1037 An Extubation 1038 an stop data 1044 Handoff to RN I completed my SBAR handoff to the receiving nurse. 1045 An Stop Meds Name Total fentaNYL PF (SUBLIMAZE) injection 25 mcg lidocaine (2%) 200 mg/10mL Injection 80 mg syringe propofol (DIPRIVAN) 200 mg/ 20 mL 180 mg injection (VIAL) ondansetron (ZOFRAN) injection 4 mg dexamethasone (DECADRON) 4 mg/mL 4 mg injection dextran 70/hypromellose (GENTEAL TEARS; 2 drop BION TEARS) ophthalmic solution ceFAZolin (ANCEF) injection 2 g ePHEDrine 50 mg/mL 50 mg in sodium 30 mg chloride PF 0.9% 5 mL IV syringe glycopyrrolate (ROBINUL) 0.2mg/mL 0.4 mg injection lactated ringers infusion 650 mL * Name O2 N2O Inspired N2O Sevoflurane Inspired Sevoflurane * No blood administrations on file. Removal Type Details Placement Wounds 04/23/17; 0802; Perineum; Surgical 04/23/17 0802 by Yajaira, (NOT for Incision; no dressing MARIANO Oshea Pressure Injuries) Wounds 09/28/17; 1140; Perineum; Surgical 09/28/17 1140 by (NOT for Incision; no dressing Loren Nieto RN Pressure Injuries) Wounds 03/29/18; 1434; Groin; Surgical 03/29/18 1434 by Julee, (NOT for Incision; CLEANED AND DRIED MARIANO Patel Pressure Injuries) 10/02/18 1234 by Angle Montgomery RN Peripheral 09/30/18; 0948; RN; L; Lower; Wrist; 20 09/30/18 0948 by JESSICA Hale G; No; 1; Therapy completed; 10/02/18; MARIANO Hendrickson 1234 09/30/18 1037 by Joana Banerjee CRNA [place] 09/30/18; 1012; Ventilated by mask with 09/30/18 1012 by ic Airway oral airway (2); LMA; 4; 1 insertion Joana Banerjee CRNA attempt; Auscultation, End-tidal CO2; 09/30/18; 1037 in this encounter Social History Date Tobacco Use Types Packs/Day Years Used Never Smoker Smokeless Tobacco: Never Used Alcohol Use Drinks/Week oz/Week Comments No Sex Assigned at Date Recorded Not on file Industry Job Start Date Occupation Not on file Not on file Not on file Travel End Travel History Travel Start No recent travel history available. as of this encounter Plan of Treatment Care Team Description Date Type Specialty Shefali Herring MD [address] [facility] [address] [place] [address] [phone] CYSTOURETHROSCOPY WITH INJECTION FOR CHEMODENERVATION OF THE BLADDER (150UNITS) 03/31/2019 Surgery as of this encounter Results * ECG-SCAN (09/30/2018 12:00 AM BODY MAKE UP ARTIST) Narrative Performed At Ordered by an unspecified provider. in this encounter Visit Diagnoses Not on filein this encounter Administered Medications Action Date Dose Rate Site Medication Order MAR Action 09/30/2018 10:21 AM BODY MAKE [employer] ARTIST 2 g ceFAZolin (ANCEF) injection Given INTRA-PROCEDURE MED, Starting Wed09/30/18 at 1021, Until Wed09/30/18 at 1050, Anesthesia Intra-op 09/30/2018 10:25 AM BODY MAKE UP ARTIST 4 mg dexamethasone (DECADRON) injection Given Intravenous, INTRA-PROCEDURE MED, Starting Wed09/30/18 at 1025, Until Wed09/30/18 at 1050, Anesthesia Intra-op 09/30/2018 10:12 AM BODY MAKE UP ARTIST 2 drops dextran 70/hypromellose (GENTEAL TEARS; Given BION TEARS) ophthalmic solution INTRA-PROCEDURE MED, Starting Wed09/30/18 at 1012, Until Wed09/30/18 at 1050, Anesthesia Intra-op 09/30/2018 10:30 AM BODY MAKE UP ARTIST 10 mg ePHEDrine 50 mg/mL 50 mg in sodium Bolus chloride PF 0.9% 5 mL IV syringe 5 mL, INTRA-PROCEDURE MED(CONT), Starting Wed09/30/18 at 1015, Until Wed09/30/18 at 1050, Anesthesia Intra-op 10 mg Bolus 09/30/2018 10:22 AM BODY MAKE UP ARTIST 10 mg Given - New Bag 09/30/2018 10:15 AM BODY MAKE UP ARTIST 09/30/2018 10:10 AM BODY MAKE UP ARTIST 25 mcg fentaNYL citrate PF (SUBLIMAZE) Given injection INTRA-PROCEDURE MED, Starting Wed09/30/18 at 1010, Until Wed09/30/18 at 1050, Anesthesia Intra-op 09/30/2018 10:24 AM BODY MAKE UP ARTIST 0.2 mg glycopyrrolate (ROBINUL) injection Given INTRA-PROCEDURE MED, Starting Wed09/30/18 at 1015, Until Wed09/30/18 at 1050, Anesthesia Intra-op 0.2 mg Given 09/30/2018 10:15 AM BODY MAKE UP ARTIST 09/30/2018 11:33 AM BODY MAKE UP ARTIST 1,000 mL 20 mL/hr lactated ringers infusion Given - New 1,000 mL, 1,000 mL, Intravenous, at 20 Bag mL/hr, CONTINUOUS, Starting Wed09/30/18 at 0930, Until Wed09/30/18 at 1642, Pre-Op Given - New Bag 09/30/2018 9:55 AM BODY MAKE UP ARTIST 09/30/2018 10:10 AM BODY MAKE UP ARTIST 80 mg lidocaine (PF) injection Given INTRA-PROCEDURE MED, Starting Wed09/30/18 at 1010, Until Wed09/30/18 at 1050, Anesthesia Intra-op 09/30/2018 10:25 AM BODY MAKE UP ARTIST 4 mg ondansetron (ZOFRAN) injection Given Intravenous, INTRA-PROCEDURE MED, Starting Wed09/30/18 at 1025, Until Wed09/30/18 at 1050, Anesthesia Intra-op 09/30/2018 10:17 AM BODY MAKE UP ARTIST 40 mg propofol (DIPRIVAN) injection Given INTRA-PROCEDURE MED, Starting Wed09/30/18 at 1010, Until Wed09/30/18 at 1050, Anesthesia Intra-op 140 mg Given 09/30/2018 10:10 AM BODY MAKE UP ARTIST in this encounter
--- OUTSIDE RECORDS SUMMARY | 2018-10-02 22:52 | XMS REPORT | Encounter Summary ---
[facility] Address Unknown Phone Unavailable Care Team Providers Care Glass Setter Name Role Phone Alan Ramachandran MD Unavailable [...] incontinence Urge urinary incontinence [N39.41] P rocedures [place] CYSTOURETHROSCOPY INJ CHEMODENERVATION BLADDER CYSTOSCOPY WITH BOTOX INJECTION (150 UNITS) Encounter Details Care Team Description Date Type Department Shefali Herring MD [address] [facility] Ortho/Med Pavilion [address] [place], [place] [id number] Gumaro Dietrich MD [address] [place], [place] [id number] Amita Dye MD [address] [place] [address] [phone] Atrial fibrillation with rapid ventricular response (HCC) 09/30/2018 Hospital [facility] - Encounter [id number] 10/02/2018 [place] [address] Social History Date Tobacco Use Types Packs/Day Years Used Never Smoker Smokeless Tobacco: Never Used Alcohol Use Drinks/Week oz/Week Comments No Sex Assigned at Date Recorded Not on file Industry Job Start Date Occupation Not on file Not on file Not on file Travel End Travel History Travel Start No recent travel history available. as of this encounter Last Filed Vital Signs Time Taken Vital Sign Reading 10/02/2018 8:18 AM CDT Blood Pressure 171/59 10/02/2018 8:18 AM CDT Pulse 56 10/02/2018 8:18 AM CDT Temperature 36.9 C (98.4 F) - Respiratory Rate - 10/02/2018 8:18 AM CDT Oxygen Saturation 93% - Inhaled Oxygen - Concentration 10/01/2018 2:00 PM COLOR PRINT INSPECTOR Weight 121.6 kg (268 lb) 10/01/2018 2:00 PM COLOR PRINT INSPECTOR Height 170.2 cm (5' 7") 10/01/2018 2:00 PM COLOR PRINT INSPECTOR Body Mass Index 41.97 in this encounter Functional Status Date of Assessment Functional Status Response 10/02/2018 Does the patient have a hearing impairment: No 10/02/2018 Does the patient have a visual impairment: No 10/02/2018 Does the patient have impaired ambulation: No 10/02/2018 Does the patient have an activity of daily living No (ADL) impairment: 10/02/2018 Does the patient have an instrumental activity of No daily living (IADL) impairment: Date of Assessment Cognitive Status Response 10/02/2018 Does the patient have a cognitive impairment: No as of this encounter Discharge Instructions * Patient Instructions* Karly Mcmillan RN - 09/30/2018 10:54 AM COLOR PRINT INSPECTOR Discharge Instructions: After Your Surgery Youve just had surgery. During surgery, you were given medicine called anesthesia to keep you relaxed and free of pain. After surgery, you may have some pain or nausea. This is common. Here are some tips for feeling better and getting well after surgery. Stay on schedule with your medicine. Going home Your healthcare provider will show you how to take care of yourself when you go home. He or she will also answer your questions. Have an adult family member or friend drive you home. For the first 24 hours after your surgery: Do not drive or use heavy equipment. Do not make important decisions or sign legal papers. Do not drink alcohol. Have someone stay with you, if needed. He or she can watch for problems and help keep you safe. Be sure to go to all follow-up visits with your healthcare provider. And rest after your surgery for as long as your healthcare provider tells you to. Coping with pain If you have pain after surgery, pain medicine will help you feel better. Take it as told, before pain becomes severe. Also, ask your healthcare provider or pharmacist about other ways to control pain. This might be with heat, ice, or relaxation. And follow any other instructions your surgeon or nurse gives you. Tips for taking pain medicine To get the best relief possible, remember these points: Pain medicines can upset your stomach. Taking them with a little food may help. Most pain relievers taken by mouth need at least 20 to 30 minutes to start to work. Taking medicine on a schedule can help you remember to take it. Try to time your medicine so that you can take it before starting an activity. This might be before you get dressed, go for a walk, or sit down for dinner. Constipation is a common side effect of pain medicines. Call your healthcare provider before taking any medicines such as laxatives or stool softeners to help ease constipation. Also ask if you should skip any foods. Drinkinglots of fluids andeating foodssuch as fruits and vegetables that are high in fiber can also help. Remember, do not take laxatives unless your surgeon has prescribed them. Drinking alcohol and taking pain medicine can cause dizziness and slow your breathing. It can even be deadly. Do not drink alcohol while taking pain medicine. Pain medicine can make you react more slowly to things. Do not drive or run machinery while taking pain medicine. Your healthcare providermay tell you to take acetaminophen to help ease your pain. Ask him or her how much you are supposed to take each day. Acetaminophen or other pain relievers may interact with your prescription medicines or other sjyz-ybg-vyzarwf (OTC) medicines. Some prescription medicines have acetaminophen and other ingredients.Using both prescription and OTC acetaminophenfor paincan cause you to overdose. Readthe labels on your OTC medicineswith care. This will help youto clearly know the list of ingredients, how much to take, and anywarnings. It may also help you not take too muchacetaminophen.If you have questions or do not understand the information, ask your pharmacist or healthcare provider to explain it to you before you take the OTC medicine. Managing nausea Some people have an upset stomach after surgery. This is often because of anesthesia, pain, or pain medicine, or the stress of surgery. These tips will help you handle nausea and eat healthy foods as you get better. If you were on a special food plan before surgery, ask your healthcare provider if you should follow it while you get better. These tips may help: Do not push yourself to eat. Your body will tell you when to eat and how much. Start off with clear liquids and soup. They are easier to digest. Next try semi-solid foods, such as mashed potatoes, applesauce, and gelatin, as you feel ready. Slowly move to solid foods. Dont eat fatty, rich, or spicy foods at first. Do not force yourself to have 3 large meals a day. Instead eat smaller amounts more often. Take pain medicines with a small amount of solid food, such as crackers or toast, to avoid nausea. Call your surgeon if You still have pain an hour after taking medicine. The medicine may not be strong enough. You feel too sleepy, dizzy, or groggy. The medicine may be too strong. You have side effects like nausea, vomiting, or skin changes, such as rash, itching, or hives. If you have obstructive sleep apnea You were given anesthesia medicine during surgery to keep you comfortable and free of pain. After surgery, you may have more apnea spells because of this medicine and other medicines you were given. The spells may last longer than usual. At home: Keep using the continuous positive airway pressure (CPAP) device when you sleep. Unless your healthcare provider tells you not to, use it when you sleep, day or night. CPAP is a common device used to treat obstructive sleep apnea. Talk with your provider before taking any pain medicine, muscle relaxants, or sedatives. Your provider will tell you about the possible dangers of taking these medicines. Date Last Reviewed: 06/25/201619990569-3763 [employer] [address] [place] [address]. All rights reserved. This information is not intended as a substitute for professional medical care. Always follow your healthcare professional's instructions. R PRINT INSPECTOR * Appointments* Amita Dye MD - 10/02/2018 10:00 AM CDT Please schedule a follow up appointment with your primary field services director in the next 2-4 weeks. * Pre-Anesthesia Patient Instructions* Lucille Gomez RN - 09/06/2018 12:11 PM COLOR PRINT INSPECTOR GENERAL INFORMATION Before you come to the hospital Make arrangements for a responsible adult to drive you home and stay with you for 24 hours following surgery. Bath/Shower Instructions Take a bath or shower with antibacterial soap the night before or the morning of your procedure. Use clean towels. Put on clean clothes after bath or shower. Avoid using lotion and oils. Sleep on clean sheets if bath or shower is done the night before procedure. Leave money, credit cards, jewelry, and any other valuables at home. [facility] is not responsible for the loss or breakage of personal items. Remove nail tanzanian, makeup and all jewelry (including piercings) before coming to the hospital. The morning of your procedure: brush your teeth and tongue do not smoke do not shave the area where you will have surgery What to bring to the hospital ID/ Insurance Card Runner Worker card Official documents for legal guardianship Copy of your Living Will, Advanced Directives, and/or Durable Power of Principal Architectural Firm Small bag with a few personal belongings CPAP/BiPAP machine (including all supplies) Cases for glasses/hearing aids/contact lens (bring solutions for contacts) Dress in clean, loose, comfortable clothing Eating or drinking before surgery Do not eat or drink anything after 11:00 p.m. the day before your procedure ( including gum, mints, candy, or chewing tobacco) OR follow the specific instructions you were given by your Surgeon. You may have WATER ONLY up to 2 hours before arriving at the hospital. Other instructionsNotify your surgeon if: you become ill with a cough, fever, sore throat, nausea, vomiting or flu- like symptoms you have any open wounds/sores that are red, painful, draining, or are new since you last saw the doctor you need to cancel your procedure You will receive a call with your surgery arrival time from between 2:30pm and 4:30pm the last business day before your procedure. If you do not receive a call, please call [phone] before 4:30pm or [phone] after 4:30pm. Notify us at [facility]: if you need to cancel your procedure if you are going to [place] [address] Park in the Parking Garage, located directly across from the main entrance to the hospital. Straight Knife Machine Cutter parking is available from 7 AM to 4 PM Wednesday through Wednesday. Enter through the ground floor [place] hospital entrance and check in at the Information Desk in the lobby. They will validate your parking ticket and direct you to the next location. If you are a woman between the ages of 10 and 55, and have not had a hysterectomy, you will be asked for a urine sample prior to surgery. Please do not urinate before arriving in the Surgery Waiting Room. Once there, check in and let the attendant know if you need to provide a sample. R PRINT INSPECTOR * Pre-Anesthesia Medication Instructions* Lucille Gomez, MARIANO - 09/06/2018 12:13 PM COLOR PRINT INSPECTOR YOUR MEDICATIONS: albuterol (VENTOLIN HFA, PROAIR HFA, PROVENTIL HFA) 90 mcg/actuation inhaler Inhale 1-2 Puffs by mouth into the lungs every 6 hours as needed for Wheezing or Shortness of Breath. Shake well before use. amLODIPine/benazepril(+) (LOTREL) 10/20 mg tablet 1 Tab Take 1 Tab by mouth daily. aspirin 81 mg chewable tablet Take 81 mg by mouth every morning. ATORVASTATIN CALCIUM (LIPITOR PO) Take 1 Tab by mouth at bedtime daily. cholecalciferol (Vitamin D3) (VITAMIN D-3) 1,000 units tablet Take 5,000 Units by mouth every morning. estradiol (ESTRACE) 0.01 % (0.1 mg/g) vaginal cream INSERT OR APPLY TO VAGINAL AREA DAILY FOR SEVEN DAYS THEN TWICE A WEEK estradiol (ESTRACE) 0.5 mg tablet Take 0.5 mg by mouth daily. ezetimibe/simvastatin (VYTORIN) 10/20 mg tablet 1 Tab Take 1 Tab by mouth at bedtime daily. fluticasone (FLONASE) 50 mcg/actuation nasal spray Apply 2 Sprays to each nostril as directed twice daily. Shake bottle gently before using. FLUTICASONE/SALMETEROL (ADVAIR DISKUS IN) Inhale 1 Puff by mouth into the lungs as Needed. metoprolol (LOPRESSOR) 100 mg tablet Take 100 mg by mouth twice daily. montelukast (SINGULAIR) 10 mg tablet Take 10 mg by mouth at bedtime daily. sertraline (ZOLOFT) 100 mg tablet Take 150 mg by mouth every morning. traZODone (DESYREL) 50 mg tablet Take 50 mg by mouth at bedtime daily. triamterene/hydrochlorothiazide (MAXZIDE) 37.5/25 mg tablet Take 1 Tab by mouth every morning. YOUR MEDICATION INSTRUCTIONS FOR SURGERY: Before surgery Do not start any new vitamins, herbals, and natural supplements 14 days before surgery: Stop the following medications 7 days before surgery: Anti-inflammatory medications such as ibuprofen (Advil, Motrin) and naproxen (Aleve) You may use acetaminophen (Tylenol) Please follow these instructions regarding your blood thinner medications: Aspirin - please hold for 7 days before surgery Morning of surgery On the morning of surgery, do NOT take these medications: Remaining vitamins/supplements Ointments/creams/lotions Amlodipine/Benazepril Vitamin D Estrace Triamterene/HCTZ On the morning of surgery, take ONLY these medications with a sip (1-2 ounces) of water: Inhalers and nasal sprays Singulair Metoprolol Sertraline Other information Before surgery, please contact MARIANO Adkins with any medicine updates or questions. E-mail: [email or web address] Before going home from the hospital, please ask your doctor when you should re- start your medicines that were stopped before surgery. R PRINT INSPECTOR in this encounter Medications at Time of Discharge Start Date End Date Medication Sig Dispensed Refills albuterol (VENTOLIN HFA, Inhale 1-2 0 PROAIR HFA, PROVENTIL Puffs by HFA) 90 mcg/actuation mouth into inhaler the lungs every 6 hours as needed for Wheezing or Shortness of Breath. Shake well before use. amlodipine-benazepril Take 1 0 (LOTREL) 10-20 mg capsule capsule by mouth daily. 10/02/2018 apixaban (ELIQUIS) 5 mg Take one 60 tablet 1 tablet tablet by mouth twice daily. aspirin EC 81 mg tablet Take 81 mg by 0 mouth daily. Take with food. atorvastatin (LIPITOR) 20 Take 20 mg by 0 mg tablet mouth nightly as needed. cholecalciferol(+) Take 5,000 0 (VITAMIN D-3) 5,000 unit Units by tablet mouth daily. 03/20/2013 estradiol (ESTRACE) 0.01 INSERT OR 1 Container 11 % (0.1 mg/g) vaginal APPLY TO cream VAGINAL AREA DAILY FOR SEVEN DAYS THEN TWICE A WEEK estradiol (ESTRACE) 0.5 Take 0.5 mg 0 mg tablet by mouth daily. 10/02/2018 flecainide (TAMBOCOR) 150 Take two 6 tablet 0 mg tablet tablets by mouth daily as needed. For palpitations and symptoms of atrial fibrillation. Do not take more than once in a 24 hour period. Call your field services director if you have to use this medication. fluticasone (FLONASE) 50 Apply 2 0 mcg/actuation nasal sprays to sprayIndications: each nostril inflammation of the nose as directed due to an allergy daily as needed. Shake bottle gently before using. FLUTICASONE/SALMETEROL Inhale 1 Puff 0 (ADVAIR DISKUS IN) by mouth into the lungs as Needed. 10/02/2018 metoprolol tartrate Take one 180 tablet 3 (LOPRESSOR) 50 mg tablet tablet by mouth twice daily. montelukast (SINGULAIR) Take 10 mg by 0 10 mg tablet mouth at bedtime daily. sertraline (ZOLOFT) 100 Take 150 mg 0 mg tablet by mouth every morning. traZODone (DESYREL) 50 mg Take 50 mg by 0 tablet mouth at bedtime daily. triamterene/hydrochloroth Take 1 Tab by 0 iazide (MAXZIDE) 37.5/25 mouth every mg tablet morning. as of this encounter Progress Notes * Angle Montgomery RN - 10/02/2018 12:18 PM CDT Mame Archer discharged on 10/02/2018. . Discharge instructions reviewed with patient. Where Are Valuables Stored?: Pt belongings are stored in [facility]. . Functional assessment at discharge complete: Yes . AVS reviewed. Pt responded "no" when asked if she has any questions or concerns. Meds to Beds delivered pt's medications. This RN will wheel pt to lobby. * Harris Mckenzie PHARMD - 10/02/2018 11:27 AM CDT Pharmacy Anticoagulation Teaching Mame Archer was provided with both verbal and written drug information about Apixaban. Discussion with the patient included: the medication regimen, dosing, monitoring, possible adverse effects, food/drug interactions to be aware of and OTC/herbal medication use. Emphasis was placed on the importance of medication compliance. The patient was also encouraged to contact the pharmacist with any further questions. Harris Mckenzie PHARMD 10/02/2018 * Belia Hansen MD - 10/01/2018 5:16 PM COLOR PRINT INSPECTOR Cardiology progress note. Subjective: No acute events overnight. Patient converted to sinus rhythm. However she is sinus bradycardia currently. Current Facility-Administered Medications Medication Dose Route Frequency Provider Last Rate Last Dose acetaminophen (TYLENOL) tablet 650 mg 650 mg Oral Q6H PRN Gumaro Dietrich MD 650 mg at 10/01/18 1210 albuterol (PROAIR HFA, VENTOLIN HFA, or PROVENTIL HFA) inhaler 1-2 puff 1- 2 puff Inhalation Q6H PRN Gumaro Dietrich MD amLODIPine (NORVASC) tablet 10 mg 10 mg Oral QDAY Gumaro Dietrich MD 10 mg at 10/01/18 1003 aspirin EC tablet 81 mg 81 mg Oral QDAY Gumaro Dietrich MD 81 mg at 10/01/18 1004 atorvastatin (LIPITOR) tablet 80 mg 80 mg Oral QHS Gumaro Dietrich MD 80 mg at 09/30/18 210 cholecalciferol (VITAMIN D-3) tablet 5,000 Units 5,000 Units Oral QDAY Amita Dye MD 5,000 Units at 10/01/18 1210 diltiazem (cardIZEM) 125 mg in sodium chloride 0.9% (NS) 125 mL IV drip ( std conc) 5-15 mg/hr Intravenous TITRATE Gumaro Dietrich MD Stopped at 0221 enoxaparin (LOVENOX) syringe 120 mg 1 mg/kg Subcutaneous Q12H* Gumaro Dietrich MD 120 mg at 10/01/18 0605 estradiol (ESTRACE) tablet 0.5 mg 0.5 mg Oral QDAY Gumaro Dietrich MD 0.5 mg at 10/01/18 100 metoprolol tartrate (LOPRESSOR) tablet 50 mg 50 mg Oral BID Amita Dye MD montelukast (SINGULAIR) tablet 10 mg 10 mg Oral QHS Gumaro Dietrich MD 10 mg at 09/30/18 210 ondansetron (ZOFRAN) injection 4 mg 4 mg Intravenous Q6H PRN Gumaro Dietrich MD sertraline (ZOLOFT) tablet 150 mg 150 mg Oral Gumaro Stewart MD 150 mg at 10/01/18 100 traZODone (DESYREL) tablet 50 mg 50 mg Oral QHS Gumaro Dietrich MD 50 mg at 09/30/18 210 triamterene-hydrochlorothiazide (MAXZIDE) 37.5-25 mg tablet 1 tablet 1 tablet Oral Gumaro Stewart MD 1 tablet at 10/01/18 1004 Objective: Patient Vitals for the past 8 hrs: BP Temp Pulse SpO2 Height Weight 10/01/18 1440 152/79 36.2 C (97.2 F) 50 95 % 10/01/18 1400 1.702 m (5' 7") 121.6 kg (268 lb) 10/01/18 1053 135/61 36.3 C (97.3 F) 40 95 % Intake/Output Summary (Last 24 hours) at 10/01/2018 1717 Last data filed at 10/01/2018 1625 Gross per 24 hour Intake 1686.52 ml Output 1500 ml Net 186.52 ml General Appearance: Alert, cooperative, no distress, appears stated age Head: Normocephalic, without obvious abnormality, atraumatic Eyes: PERRL, conjunctiva/corneas clear Throat: Lips, mucosa, and tongue normal Neck: no carotid bruit or JVD Back: Symmetric, no curvature Lungs: Clear to auscultation bilaterally, respirations unlabored Chest Wall: No tenderness or deformity Heart: Regular rate and rhythm, S1 and S2 normal, no murmur, rub or gallop Abdomen: Soft, non-tender, bowel sounds active all four quadrants, no masses , no organomegaly Extremities: No edema Pulses: 2+ and symmetric all extremities Skin: Skin color, texture, turgor normal, no rashes or lesions Neurologic: Non focal TELE: SB, rates 40's-50's ECHO : LVEF=55% Moderate LV Dilatation Mild RV Dilatation On Some Contrast Views Moderate Left Atrial Dilatation Mild Mitral Valve Regurgitation No Pericardial Effusion PASP=37mmHg Assessment, plan: 1. Perioperative atrial fibrillation with rapid ventricular response: - Conversion to sinus bradycardia in less than 24 hours on Cardizem drip. - She received him metoprolol 100 mg daily this morning - She is sinus bradycardia in the 40s. I had a long discussion with the patient. - She will be treated with metoprolol twice daily will lower the dose to 50 mg twice daily for today. If heart rate is above 70BPM tomorrow might increase to 75 mg twice daily. - Please provide with zio patch for 14 days monitor on discharge - Please provide with flecainide 300 mg x1(pill in the pocket approach; may not repeat in ?24 hours) - [id number] at least 3. Discussed benefits and risk for anti-correlation. Patient is agreeable to proceed with anticoagulation at least temporary for the next 6 weeks. She will follow with outpatient cardiology with the results of the monitor monitor. Consideration for implantable loop recorder with discussion with outpatient field services director given 2 episodes of perioperative A. Fib to determine the longevity of anticoagulate. R PRINT INSPECTOR * Amita Dye MD - 10/01/2018 11:33 AM COLOR PRINT INSPECTOR Progress Note - Medicine Today's Date: 10/01/2018 Date of Admission: 09/30/2018 8:30 AM HD # LOS: 1 day Name: Mame Archer : 1945 Age: 73 y.o. Assessment/Plan: Active Problems: Atrial flutter with rapid ventricular response (HCC) MsSesar Archer is a 73 y.o. female with PMH of periprocedural atrial fibrillation, coronary artery disease, right bundle branch block, asthma, urinary incontinence, hypertension, depression, insomnia, ADOLPH, morbid obesity who presents with new onset atrial fibrillation with RVR following procedure. 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 Now with bradycardia, asymptomatic. We will decrease metoprolol to 50 mg twice daily Continue therapeutic anticoagulation for now, [facility] Card[facility] discussed flecainide for abortive therapy Patient to follow-up with her home field services director for zio patch monitoring to determine long-term anticoagulation Obtain echocardiogram today Coronary artery disease HTN Continue daily aspirin Continue amlodipine and benazepril, metoprolol, triamterene/ hydrochlorothiazide Asthma, currently controlled Continue Singulair and albuterol Depression Continue sertraline Insomnia Continue trazodone ADOLPH Continue CPAP Morbid obesity Body mass index is 41.97 kg/m. FEN: No IV fluids Cardiac diet DVT prophylaxis: Fully anticoagulated with therapeutic Lovenox Full code Disposition: Continue inpatient admission for further workup of atrial fibrillation. Anticipate discharge tomorrow. Greater than 35 minutes was spent in patient care with greater than 50% of time spent discussing current plan of care with patient and her granddaughter. Amita Dye MD [facility] Q- [id number] __ Subjective: No acute overnight events. Patient converted to sinus rhythm overnight in the morning. She was asleep so could not tell. Denies any lightheadedness this morning or shortness of breath. But has had limited movement. No palpitations. No chest pain. Objective: Medications: Scheduled Meds: amLODIPine (NORVASC) tablet 10 mg 10 mg Oral QDAY aspirin EC tablet 81 mg 81 mg Oral QDAY atorvastatin (LIPITOR) tablet 80 mg 80 mg Oral QHS enoxaparin (LOVENOX) syringe 120 mg 1 mg/kg Subcutaneous Q12H* estradiol (ESTRACE) tablet 0.5 mg 0.5 mg Oral QDAY metoprolol tartrate (LOPRESSOR) tablet 100 mg 100 mg Oral BID montelukast (SINGULAIR) tablet 10 mg 10 mg Oral QHS sertraline (ZOLOFT) tablet 150 mg 150 mg Oral QAM8 traZODone (DESYREL) tablet 50 mg 50 mg Oral QHS triamterene-hydrochlorothiazide (MAXZIDE) 37.5-25 mg tablet 1 tablet 1 tablet Oral QAM8 Continuous Infusions: diltiazem (cardIZEM) 125 mg in sodium chloride 0.9% (NS) 125 mL IV drip ( std conc) Stopped (10/01/18220) PRN and Respiratory Meds:acetaminophen Q6H PRN, albuterol Q6H PRN, ondansetron ( ZOFRAN) IV Q6H PRN Vitals: Vital Signs: Last Filed Vital Signs: 24 Hour Range BP: 139/86 (03/09 0730) Temp: 36.4 C (97.5 F) (10/01 0800) Pulse: (P) 40 (10/01 1053) Respirations: (P) 18 PER MINUTE (10/01 105) SpO2: 95 % (10/01 0902) O2 Delivery: (P) None (Room Air) (10/01 1053) SpO2 Pulse: 116 (09/30 1530) BP: (102-176)/(45-128) Temp: [36.4 C (97.5 F)-37.6 C (99.7 F)] Pulse: [40-129] Respirations: [14 PER MINUTE-30 PER MINUTE] SpO2: [88 %-97 %] O2 Delivery: (P) None (Room Air) Intensity Pain Scale (Self Report): (not recorded) Vitals: 09/30/18 0948 09/30/18 1635 Weight: 120 kg (264 lb 9.6 oz) 121.7 kg (268 lb 3.2 oz) Wt Readings from Last 1 Encounters: 09/30/18 121.7 kg (268 lb 3.2 oz) PIPP Score FLACC Intake/Output Summary : (Last 24 hours) Intake/Output Summary (Last 24 hours) at 10/01/2018 1133 Last data filed at 10/01/2018 1035 Gross per 24 hour Intake 1344.52 ml Output 2350 ml Net -1005.48 ml Physical Exam: Body mass index is 42.01 kg/m. Constitutional: Alert, no distress Heart: Regular rate and rhythm, no murmur Lungs: Good not examined as patient was getting an echocardiogram at the time of my visit Abdomen: Soft, nontender, normoactive bowel sounds Extremities: Trace pretibial edema Lab Review Recent Labs 09/30/18 1413 10/01/18 0429 NA 142 141 K 4.2 3.6 CL 108 108 CO2 25 25 GAP 9 8 BUN 17 15 CR 0.76 0.71 GLU 126* 112* CA 9.6 9.0 ALBUMIN -- 3.6 MG 1.9 1.9 PO4 3.4 -- Recent Labs 09/30/18 1413 09/30/18 1810 10/01/18 0429 WBC -- 10.2 9.1 HGB -- 15.1* 14.0 HCT -- 42.7 41.6 PLTCT -- 261 202 INR -- 1.0 -- AST -- -- 11 ALT -- -- 11 ALKPHOS -- -- 85 TNI 0.01 0.01 -- Estimated Creatinine Clearance: 98.2 mL/min (based on SCr of 0.71 mg/dL). Vitals: 09/30/18 0948 09/30/18 1635 Weight: 120 kg (264 lb 9.6 oz) 121.7 kg (268 lb 3.2 oz) No results for input(s): PHART, PO2ART in the last 72 hours. Invalid input(s): PC02A Point of Care Testing (Last 24 hours) Glucose: (!) 112 (10/01/18 2916) Radiology and other Diagnostics Review: Pertinent radiology reviewed. R PRINT INSPECTOR * Liza Hendricks RN - 10/01/2018 10:43 AM COLOR PRINT INSPECTOR Patient takes 5,000u vitamin D daily. Currently not on SEP. Sent text page to [facility] to notify. Tracking # [id number] R PRINT INSPECTOR * Mary Rowley - 10/01/2018 2:20 AM COLOR PRINT INSPECTOR MP Swing 4 paged to notify that patient has been at lowest rate of cardizem drip for one hour, has converted to sinus bradycardia and is sustaining a HR of low 40's. Pt BP low 100s/50s and pt resting comfortably in bed. Per william OVALLE to DC drip at this time. RN will continue to monitor. RAH * Lynda Barroso RN - 09/30/2018 5:18 PM COLOR PRINT INSPECTOR Patient arrived to room # (HC815*) via cart accompanied by RN. Patient transferred to the chair without assistance. Bedside safety checks completed. Initial patient assessment completed, refer to flowsheet for details. Admission skin assessment completed by: Lynda Sen and Elizabeth Gardner Pressure Injury Present on Hospital Admission (within 24 hours): No 1. Occiput: No 2. Ear: No 3. Scapula: No 4. Spinous Process: No 5. Shoulder: No 6. Elbow: No 7. Iliac Crest: No 8. Sacrum/Coccyx: No 9. Ischial Tuberosity: No 10. Trochanter: No 11. Knee: No 12. Malleolus: No 13. Heel: No 14. Toes: No 15. Assessed for device associated injury No 16. Nursing Nutrition Assessment Completed No See Doc Flowsheet for additional wound details. INTERVENTIONS: R PRINT INSPECTOR * Gumaro Dietrich MD - 09/30/2018 5:00 PM COLOR PRINT INSPECTOR Notified of preference for central line with esmolol infusion if duration anticipated to be prolonged. Since she has had minimal response to initial doses of esmolol, favor switching to Cardizem for rate control. Additionally, confirmed with her field services director that she does not have a history of tachybradycardia syndrome and therefore a short acting agent is not the most important characteristic of the infused medication. Will switch to Cardizem with dose to titrate 5-15 mg to keep rate less than 110 greater than 60. Gumaro Dietrich MD R PRINT INSPECTOR * Lucille Gomez RN - 09/06/2018 12:06 PM COLOR PRINT INSPECTOR PAC phone triage completed with patient for surgery on 09/27/[address] Herring. Medications, allergies and medical history reviewed and updated in chart. Had last surgery on 03/29/18 and denies changes to medical or functional status. She had hop replacement and states that stairs are not easy for her but can walk a couple of blocks without becoming symptomatic. Denies chest pain, SANDOVAL , palpitations or URI symptoms. No PAC visit indicated. Preop and medication instructions reviewed with patient. No vitamins or supplements for 14 days and no NSAIDS for 7 days before surgery. Will hold Aspirin for 7 days before surgery. NPO after 11 pm the night before surgery but ok to drink water until 2 hours before arrival at hospital. Patient verbalized understanding and copy of instructions emailed to her R PRINT INSPECTOR in this encounter H&P Notes * Gumaro Dietrich MD - 09/30/2018 2:13 PM COLOR PRINT INSPECTOR Admission H&P Department of Internal Medicine Assessment (current differential diagnosis) | Status Newonset atrial fibrillation with history of tachycardia (procedural physiologic stress v botulinum v ephedrine) | Asymptomatic, and the patient notes that historically had similar episodes.ERICH(2)DS(2)-VAsc score 3 and CVA risk ~3.2% per year for HTN, Age, Sex. Follows with a Kiln Puller in [facility], and she notes she has had "fast heart rates" in the past, and has been on metoprolol for up to 2 years. She took her dose this morning. She denies ever having been on anticoagulation, and states that she has been told to take a baby aspirin for thromboembolic prophylaxis. No known history of bleeding, and she denies it. *Update 3:34 PM I spoke with her primary Kiln Puller, who states after his note review that she has a history of palpitations, but no documented arrhythmia. Coronary artery disease | Asymptomatic. Prior to admission, on aspirin 81 mg daily. Her primary Kiln Puller highlighted that in 2006 she had a catheterization that demonstrated mild coronary artery disease. RBBB | Not new. Noted on old EKG. Asthma | Controlled, with no evidence of exacerbation. Prior to admission, on Singulair and albuterol asneeded. Has not regularly needed it. 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 Urinary incontinence | Status post Botox injection on 09/30/2018. Hypertension (essential versus secondary versus obesity) | Currently uncontrolled. Prior to admission, on amlodipine 10 mg combined with benazepril 20 mg. Also on metoprolol 100 mg twice daily. Also on triamterene hydrochlorothiazide 37.5-25 mg every morning. Depression | Controlled. On sertraline 150 mg every morning. Insomnia | Controlled on trazodone 50 mg every afternoon. 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 At risk for DVT (hospitalization/immobility) | Anticipating use of enoxaparin -- > DOAC v warfarin. Plan Start IV esmolol drip with goal heart rate less than 110 (update 9:52 PM transitioned to diltiazem) Give home dose of metoprolol now Check hemoglobin A1c based on fasting hyperglycemia and risk factors for DM Check lipid profile Trend troponins at least thrice (first negative) (update 7:50 PM 2nd negative and remains chest pain free so will DC) Initiate anticoagulation with enoxaparin unless formalized weight is less than 120kg, since there is a lack of clinical data in this population Check renal function prior to AC Echocardiogram Cardiology evaluation CPAP for ADOLPH Replace magnesium CBC/INR TSH *I spoke with her Primary Kiln Puller: Dr. Елена Ang [facility] [place] [address] [phone] Pager (I spoke with Urology, who stated that none of their procedures precluded use of anticoagulants post procedurally) Discharge Planning Back to home Chief Complaint (CC) Palpitations History of Present Illness (HPI) She is a 73-year-old female with a history of reported tachycardia who presented today to have a botulinum injection for urinary incontinence by Urology. During the procedure, she had intermittent episodes of tachycardia that were refractory to 25 mg of IV metoprolol. She notes that when the symptoms first started she had a sensation of her heart "pounding", but has not had any chest pain, shortness of breath, and has had no lightheadedness or back pain. No new LE edema. No hypotension. She is been in good health recently, with no recent illnesses or sick contacts. Denies fever, chills, nausea, vomiting, and has noted that she has been working hard to lose weight recently and the 20lb weight loss has been intentional. Reviewing her risk factors for atrial fibrillation/tachycardia, she has no known history of coronary artery disease (states she has had cardiac catheterization twice), does not have diabetes, has hyperlipidemia, has no known peripheral arterial disease. I spoke with her field services director, and he highlighted that she had a catheterization in 2006 that demonstrated mild coronary artery disease. She has no history of epistaxis, GI bleeding, surgery within 6 weeks, known brain mass, history of intracerebral hemorrhage. EKG demonstrated atrial fibrillation/flutter with RVR. She currently remains asymptomatic. In the PACU, she received 1 L of LR, and since 10 AM this morning, has received 25 mg IV metoprolol. During the procedure she received 0.2 mg of glycopyrrolate injections twice. She also received ephedrine. She received botulinum injection during the procedure and there were no complications. Review of Systems (ROS) A full 10-point review of systems was obtained and was negative except for symptoms outlined in the HPI as well as none. Diagnostic Studies Labs were reviewed, and notable for: Troponin 0 0.01 Sodium 142 Potassium 4.2 Chloride 108 BUN 17 Creatinine 0.76 Mg 1.9 Imaging studies were reviewed, and notable for: Single view chest x-ray performed on 09/30/2018 with poor depth of inspiration with bibasilar atelectasis. Telemetry reviewed - atrial fibrillation with RVR and rates in 120s. EKG reviewed and ?atrial flutter. Microbiological studies were reviewed, and notable for: None Operative report 09/30/18 reviewed. No immediate complications. Past Medical History (PMH) Past Medical History: Diagnosis Date Arthritis Asthma Coronary artery disease Depression (disease) Hyperlipidemia Hypertension Incontinence Obstructive sleep apnea on CPAP Urinary tract infection Past Surgical History (PSH) Past Surgical History: Procedure Laterality Date HX FOOT SURGERY Left 12/22/2006 Bebo's fracture KNEE REPLACEMENT Left 09/14/2012 HIP REPLACEMENT Right 05/25/2013 [place] CYSTOURETHROSCOPY INJ CHEMODENERVATION BLADDER N/A 10/22/2015 CYSTOSCOPY, INTRAVESICAL BOTOX INJECTION (150Units) performed by [facility]fali [facility] [place] CYSTOURETHROSCOPY INJ CHEMODENERVATION BLADDER N/A 04/21/2016 CYSTOSCOPY, INTRAVESICAL BOTOX INJECTION (150 UNITS) performed by [facility]fali [facility] ABDOMINAL HERNIA REPAIR 05/2016 [place] NDSC NJX IMPLT MATRL URT&/BLDR NCK N/A 10/23/2016 CYSTOSCOPY, INJECTION BOTOX (150 UNITS) performed by Shefali Her[facility] [place] CYSTOURETHROSCOPY INJ CHEMODENERVATION BLADDER N/A 04/23/2017 CYSTOSCOPY, INJECTION BOTOX (150 UNITS) performed by Shefali Herring MD [facility] CYSTOSCOPY N/A 09/28/2017 CYSTOSCOPY, INJECTION BOTOX (150 UNITS) performed by Shefali Her[facility] [place] CYSTOURETHROSCOPY INJ CHEMODENERVATION BLADDER N/A 03/29/2018 CYSTOSCOPY, INTRAVESICAL BOTOX INJECTION (150 UNITS) performed by Shefali Herring MD at [facility] BLADDER SURGERY CYSTOSCOPY FOOT FRACTURE SURGERY Left HIATAL HERNIA REPAIR HX CHOLECYSTECTOMY HX HEART CATHETERIZATION x2; aug 2006 last HX HYSTERECTOMY total HX KNEE SURGERY Left HX KNEE SURGERY Left HX TONSILLECTOMY Family History (FH) Family History Problem Relation Age of Onset Melanoma Father Social History (SH) Social History Tobacco Use Smoking status: Never Smoker Smokeless tobacco: Never Used Substance Use Topics Alcohol use: No Drug use: No Allergies Patient has no known allergies. Reported Home Medications Prior to Admission medications Medication Sig Start Date End Date Taking? Authorizing Provider albuterol (VENTOLIN HFA, PROAIR HFA, PROVENTIL HFA) 90 mcg/actuation inhaler Inhale 1-2 Puffs by mouth into the lungs every 6 hours as needed for Wheezing or Shortness of Breath. Shake well before use. HISTORICAL PROVIDER amLODIPine/benazepril(+) (LOTREL) 10/20 mg tablet 1 Tab Take 1 Tab by mouth daily. Provider, Historical aspirin 81 mg chewable tablet Take 81 mg by mouth every morning. Provider, Historical ATORVASTATIN CALCIUM (LIPITOR PO) Take 1 Tab by mouth at bedtime daily. Provider, Historical cholecalciferol (Vitamin D3) (VITAMIN D-3) 1,000 units tablet Take 5,000 Units by mouth every morning. Provider, Historical estradiol (ESTRACE) 0.01 % (0.1 mg/g) vaginal cream INSERT OR APPLY TO VAGINAL AREA DAILY FOR SEVEN DAYS THEN TWICE A WEEK 03/20/13 Shefali Herring MD estradiol (ESTRACE) 0.5 mg tablet Take 0.5 mg by mouth daily. HISTORICAL PROVIDER ezetimibe/simvastatin (VYTORIN) 10/20 mg tablet 1 Tab Take 1 Tab by mouth at bedtime daily. Provider, Historical fluticasone (FLONASE) 50 mcg/actuation nasal spray Apply 2 Sprays to each nostril as directed twice daily. Shake bottle gently before using. HISTORICAL PROVIDER FLUTICASONE/SALMETEROL (ADVAIR DISKUS IN) Inhale 1 Puff by mouth into the lungs as Needed. HISTORICAL PROVIDER metoprolol (LOPRESSOR) 100 mg tablet Take 100 mg by mouth twice daily. Provider, Historical montelukast (SINGULAIR) 10 mg tablet Take 10 mg by mouth at bedtime daily. Provider, Historical sertraline (ZOLOFT) 100 mg tablet Take 150 mg by mouth every morning. Provider, Historical traZODone (DESYREL) 50 mg tablet Take 50 mg by mouth at bedtime daily. Provider, Historical triamterene/hydrochlorothiazide (MAXZIDE) 37.5/25 mg tablet Take 1 Tab by mouth every morning. Provider, Historical Physical Examination Temp: [36.5 C (97.7 F)-36.8 C (98.2 F)] Pulse: [53-128] Respirations: [14 PER MINUTE-30 PER MINUTE] SpO2 Pulse: [78-124] SpO2: [88 %-99 %] BP: (125-169)/(60-130) Body mass index is 41.44 kg/m. GEN: Alert and oriented x3 (person/place/time). In no acute distress. Obese. EYES: PERRL, EOMI, no scleral icterus. HENT: Normocephalic, atraumatic. RESP: Lungs clear to ascultation. No wheezes, rhonchi, nor crackles CVS: S1/S2 audible, no murmurs audible. Appears and feels warm and well- perfused. Irregular rhythm. GI: Abdomen soft. Non-tender to palpation. MSK: No visible joint swelling. No obvious deformities. Normal bulk and tone. NEURO: CNII-XII intact grossly. Strength 5/5 in muscle groups tested. HEME/LYMPH: No palpable submandibular, anterior/posterior cervical lymphadenopathy. SKIN: Warm. Dry. PSYCH: Mood euthymic. Affect congruent with mood. Patient Name Mame Archer Patient Date of 1945 Date of Admission 09/30/2018 Primary Care Provider Breanna Broderick ____ Gumaro Dietrich M.D. Internal Medicine I spent a total of 70 minutes involved in this patient's initial hospital care. This included time spent communicating with the physician who accepted the patient from the PACU I spoke directly with the Urologist. R PRINT INSPECTOR * Shefali Herring MD - 09/30/2018 9:48 AM COLOR PRINT INSPECTOR Admission History and Physical Examination Name: Mame Archer Admission Date: 09/30/2018 Assessment/Plan: Active Problems: * No active hospital problems. * To OR for cysto botox 150 units. __ Primary Care Physician: Breanna Broderick Verified Chief Complaint: urge incontinence. History of Present Illness: Mame Archer is a 73 y.o. female presents with urge incontinence History of Present Illness Mame Archer is a 72 y.o. female with history of urge urinary incontinence with prior good response to intravesical Botox injection who presents for scheduled Botox injection. She has had worsening urinary urgency and frequency since she was last treated and desires repeat therapy. The patient denies any recent changes to her health including surgeries, hospitalizations, or other illnesses. Patient denies any history of trouble with anesthesia, bleeding problems, and confirms they have been NPO since midnight. Patient also specifically denies current fevers, chills, chest pain, SOB, nausea, vomiting, diarrhea, signs and symptoms of UTI. Denies current anticoagulation therapy. Past Medical History: Diagnosis Date Arthritis Asthma Coronary artery disease Depression (disease) Hyperlipidemia Hypertension Incontinence Obstructive sleep apnea on CPAP Urinary tract infection Past Surgical History: Procedure Laterality Date HX FOOT SURGERY Left 12/22/2006 Bebo's fracture KNEE REPLACEMENT Left 09/14/2012 HIP REPLACEMENT Right 05/25/2013 [place] CYSTOU[place]ROS[place] INJ CHEMODENERVATION BLADDER N/A 10/22/2015 CYSTOSCOPY, INTRAVESICAL BOTOX INJECTION (150Units) performed by Shefali Her[facility] [place] CYSTOU[place]THROS[place] INJ CHEMODENERVATION BLADDER N/A 04/21/2016 CYSTOSCOPY, INTRAVESICAL BOTOX INJECTION (150 UNITS) performed by Shefali Her[facility] MD [facility] ABDOMINAL HERNIA REPAIR 05/2016 [place] NDSC NJX IMPLT MATRL URT&/BLDR NCK N/A 10/23/2016 CYSTOSCOPY, INJECTION BOTOX (150 UNITS) performed by Shefali Her[facility] [place] CYSTOURETHROSCOPY INJ CHEMODENERVATION BLADDER N/A 04/23/2017 CYSTOSCOPY, INJECTION BOTOX (150 UNITS) performed by Shefali Her[facility] CYSTOSCOPY N/A 09/28/2017 CYSTOSCOPY, INJECTION BOTOX (150 UNITS) performed by Shefali Herring [facility] [place] CYSTOU[place]THROS[place] INJ CHEMODENERVATION BLADDER N/A 03/29/2018 CYSTOSCOPY, INTRAVESICAL BOTOX INJECTION (150 UNITS) performed by Shefali Herring MD at [facility] BLADDER SURGERY CYSTOSCOPY FOOT FRACTURE SURGERY Left HIATAL HERNIA REPAIR HX CHOLECYSTECTOMY HX HEART CATHETERIZATION x2; aug 2006 last HX HYSTERECTOMY total HX KNEE SURGERY Left HX KNEE SURGERY Left HX TONSILLECTOMY Family History Problem Relation Age of Onset Melanoma Father Social History Socioeconomic History Marital status: Spouse name: Not on file Number of children: Not on file Years of education: Not on file Highest education level: Not on file Social Needs Financial resource strain: Not on file Food insecurity - worry: Not on file Food insecurity - inability: Not on file Transportation needs - medical: Not on file Transportation needs - non-medical: Not on file Occupational History Not on file Tobacco Use Smoking status: Never Smoker Smokeless tobacco: Never Used Substance and Sexual Activity Alcohol use: No Drug use: No Sexual activity: Not Currently Other Topics Concern Not on file Social History Narrative Not on file Immunizations (includes history and patient reported): There is no immunization history on file for this patient. Allergies: Patient has no known allergies. Medications: Medications Prior to Admission Medication Sig albuterol (VENTOLIN HFA, PROAIR HFA, PROVENTIL HFA) 90 mcg/actuation inhaler Inhale 1-2 Puffs by mouth into the lungs every 6 hours as needed for Wheezing or Shortness of Breath. Shake well before use. amLODIPine/benazepril(+) (LOTREL) 10/20 mg tablet 1 Tab Take 1 Tab by mouth daily. aspirin 81 mg chewable tablet Take 81 mg by mouth every morning. ATORVASTATIN CALCIUM (LIPITOR PO) Take 1 Tab by mouth at bedtime daily. cholecalciferol (Vitamin D3) (VITAMIN D-3) 1,000 units tablet Take 5,000 Units by mouth every morning. estradiol (ESTRACE) 0.01 % (0.1 mg/g) vaginal cream INSERT OR APPLY TO VAGINAL AREA DAILY FOR SEVEN DAYS THEN TWICE A WEEK estradiol (ESTRACE) 0.5 mg tablet Take 0.5 mg by mouth daily. ezetimibe/simvastatin (VYTORIN) 10/20 mg tablet 1 Tab Take 1 Tab by mouth at bedtime daily. fluticasone (FLONASE) 50 mcg/actuation nasal spray Apply 2 Sprays to each nostril as directed twice daily. Shake bottle gently before using. FLUTICASONE/SALMETEROL (ADVAIR DISKUS IN) Inhale 1 Puff by mouth into the lungs as Needed. metoprolol (LOPRESSOR) 100 mg tablet Take 100 mg by mouth twice daily. montelukast (SINGULAIR) 10 mg tablet Take 10 mg by mouth at bedtime daily. sertraline (ZOLOFT) 100 mg tablet Take 150 mg by mouth every morning. traZODone (DESYREL) 50 mg tablet Take 50 mg by mouth at bedtime daily. triamterene/hydrochlorothiazide (MAXZIDE) 37.5/25 mg tablet Take 1 Tab by mouth every morning. ROS A 10 point review of systems was negative except for the above HPI. Physical Exam Vital Signs: Last Filed In 24 Hours Vital Signs: 24 Hour Range General: well developed, well appearing female in no acute distress HEENT: normocephalic and atraumatic Cardiovascular: regular rate and rhythm, equal pulses in all extremities Respiratory: Equal chest rise bilaterally, non labored respirations GI: soft, nontender, nondistended, no organomegaly : no CVA tenderness, normal genitalia Neuro: grossly intact moves all extremities Psych: normal behavior, normal cognition Extremities: no edema, no cyanosis Skin: warm, dry, intact Lab/Radiology/Other Diagnostic Tests: 24-hour labs: No results found for this visit on 09/30/18 (from the past 24 hour(s)). Pertinent radiology reviewed. Malcom Chaidez MD Pager [phone] ATTESTATION I personally performed the westfall portions of the E/M visit, discussed case with resident and concur with resident documentation of history, physical exam, assessment, and treatment plan unless otherwise noted. Staff name: Shefali Herring MD R PRINT INSPECTOR in this encounter Consult Notes * Megan Cutler MD - 09/30/2018 5:05 PM COLOR PRINT INSPECTOR Associated Order(s): CONSULT CARDIOLOGY PHYSICIAN STAFF CARDIOLOGY CONSULT NOTE Admission Date: 09/30/2018 Code Status: Full Code Reason for Consultation: New onset atrial fibrillation History of Present Illness: This is a 73 y.o. white female patient that was admitted to [facility] 2 undergo Botox injection of her bladder for urinary incontinence. During the procedure patient was noted to have intermittent episodes of tachycardia. She received metoprolol intravenously, the tachycardia did not resolve. Prior to the procedure, going to the operating room patient was in normal sinus rhythm. Fifteen minutes after being in the recovery, patient developed atrial fibrillation. She was also symptomatic with heart palpitations. Patient reports that she had a similar episode approximately 7 or 8 years ago when she underwent left foot surgery. She recalls that at that time she also developed atrial fibrillation in the postop period. She was started on metoprolol and sinus rhythm was restored. Patient does follow-up with a field services director in [place], [place]. She underwent a left heart catheterization in 2006, she was not found to have any significantly obstructive coronary artery disease. She was seen by her field services director a few days ago and was found to be stable. Patient thinks that she did undergo evaluation with an electrocardiogram in the past few months and she was told that she had normal sinus rhythm. Patient also has sleep apnea, she uses a CPAP machine. She does have hypertension that is treated with metoprolol, amlodipine and Maxide. She is morbidly obese with a BMI of 41.44. Family history: It is significant for premature CAD, both parents. Past Medical History Past Medical History: Diagnosis Date Arthritis Asthma Coronary artery disease Depression (disease) Hyperlipidemia Hypertension Incontinence Obstructive sleep apnea on CPAP Urinary tract infection Social History Social History Socioeconomic History Marital status: Spouse name: Not on file Number of children: Not on file Years of education: Not on file Highest education level: Not on file Social Needs Financial resource strain: Not on file Food insecurity - worry: Not on file Food insecurity - inability: Not on file Transportation needs - medical: Not on file Transportation needs - non-medical: Not on file Occupational History Not on file Tobacco Use Smoking status: Never Smoker Smokeless tobacco: Never Used Substance and Sexual Activity Alcohol use: No Drug use: No Sexual activity: Not Currently Other Topics Concern Not on file Social History Narrative Not on file Family History Family History Problem Relation Age of Onset Melanoma Father Home Medications Medications Prior to Admission Medication Sig albuterol (VENTOLIN HFA, PROAIR HFA, PROVENTIL HFA) 90 mcg/actuation inhaler Inhale 1-2 Puffs by mouth into the lungs every 6 hours as needed for Wheezing or Shortness of Breath. Shake well before use. amLODIPine/benazepril(+) (LOTREL) 10/20 mg tablet 1 Tab Take 1 Tab by mouth daily. aspirin 81 mg chewable tablet Take 81 mg by mouth every morning. ATORVASTATIN CALCIUM (LIPITOR PO) Take 1 Tab by mouth at bedtime daily. cholecalciferol (Vitamin D3) (VITAMIN D-3) 1,000 units tablet Take 5,000 Units by mouth every morning. estradiol (ESTRACE) 0.01 % (0.1 mg/g) vaginal cream INSERT OR APPLY TO VAGINAL AREA DAILY FOR SEVEN DAYS THEN TWICE A WEEK estradiol (ESTRACE) 0.5 mg tablet Take 0.5 mg by mouth daily. [DISCONTINUED] ezetimibe/simvastatin (VYTORIN) 10/20 mg tablet 1 Tab Take 1 Tab by mouth at bedtime daily. fluticasone (FLONASE) 50 mcg/actuation nasal spray Apply 2 Sprays to each nostril as directed twice daily. Shake bottle gently before using. FLUTICASONE/SALMETEROL (ADVAIR DISKUS IN) Inhale 1 Puff by mouth into the lungs as Needed. metoprolol (LOPRESSOR) 100 mg tablet Take 100 mg by mouth twice daily. montelukast (SINGULAIR) 10 mg tablet Take 10 mg by mouth at bedtime daily. sertraline (ZOLOFT) 100 mg tablet Take 150 mg by mouth every morning. traZODone (DESYREL) 50 mg tablet Take 50 mg by mouth at bedtime daily. triamterene/hydrochlorothiazide (MAXZIDE) 37.5/25 mg tablet Take 1 Tab by mouth every morning. Current Medications amLODIPine (NORVASC) tablet 10 mg 10 mg Oral QDAY atorvastatin (LIPITOR) tablet 80 mg 80 mg Oral QHS enoxaparin (LOVENOX) syringe 120 mg 1 mg/kg Subcutaneous BID [START ON 10/01/2018] estradiol (ESTRACE) tablet 0.5 mg 0.5 mg Oral QDAY magnesium chloride (MAG DELAY) tablet 535 mg 535 mg Oral BID metoprolol tartrate (LOPRESSOR) tablet 100 mg 100 mg Oral BID montelukast (SINGULAIR) tablet 10 mg 10 mg Oral QHS sertraline (ZOLOFT) tablet 150 mg 150 mg Oral QAM8 traZODone (DESYREL) tablet 50 mg 50 mg Oral QHS triamterene-hydrochlorothiazide (MAXZIDE) 37.5-25 mg tablet 1 tablet 1 tablet Oral QAM8 acetaminophen Q6H PRN, albuterol Q6H PRN, ondansetron (ZOFRAN) IV Q6H PRN Allergies No Known Allergies Review of Systems Constitutional: denies fever, chills, night sweats, weight loss Eyes: denies double vision, sudden vision loss ENT & mouth: no ringing in the ears, mucosas are moist Cardiovascular: denies chest pain, + palpitations Respiratory:denies cough, + shortness of breath GI: denies nausea, vomiting, diarrhea, constipation : denies increased urinary frequency, dysuria Musculoskeletal: denies joint pain, weakness Skin: denies new skin rash or skin lesions Neurological: denies dizziness, denies loss of consciousness Psychiatric: denies depression, suicidal ideation Endocrine: denies heat or cold intolerance Hematology/lymphatic: denies abnormal bleeding, bruising, new lymph nodes Vital Signs: Most Recent Vital Signs: 24 Hour Range BP: 143/110 (09/30 163) Temp: 37.2 C (99 F) (09/30 1634) Pulse: 106 (09/30 163) Respirations: 22 PER MINUTE (09/30 163) SpO2: 93 % (09/30 163) O2 Delivery: None (Room Air) (09/30 163) SpO2 Pulse: 116 (09/30 1530) Height: 170.2 cm (5' 7") (10/01 947) BP: (125-176)/(60-130) Temp: [36.5 C (97.7 F)-37.2 C (99 F)] Pulse: [53-129] Respirations: [14 PER MINUTE-30 PER MINUTE] SpO2: [88 %-99 %] O2 Delivery: None (Room Air) Vitals: 09/30/18 0948 09/30/18 1635 Weight: 120 kg (264 lb 9.6 oz) 121.7 kg (268 lb 3.2 oz) Intake/Output Summary (Last 24 hours) at 09/30/2018 1705 Last data filed at 09/30/2018 1635 Gross per 24 hour Intake 650 ml Output 850 ml Net -200 ml Stool Occurrence: 0 Physical Exam General Appearance: Morbidly obese Skin: warm, moist, no ulcers or xanthomas Eyes: conjunctivae and lids normal, pupils are equal and round Lips & Oral Mucosa: no pallor or cyanosis Neck Veins: neck veins are flat, neck veins are not distended Chest Inspection: chest is normal in appearance Respiratory Effort: breathing comfortably, no respiratory distress Auscultation/Percussion: lungs clear to auscultation, no rales or rhonchi, no wheezing Cardiac Rhythm: irregularly irregular rhythm and normal rate Cardiac Auscultation: S1, S2 normal, no rub, no gallop Murmurs: no murmur Carotid Arteries: normal carotid upstroke bilaterally, no bruit Abdominal Aorta: no abdominal aortic bruit Lower Extremity Edema: no lower extremity edema Abdominal Exam: soft, non-tender, no masses, bowel sounds normal Liver & Spleen: no organomegaly Neurologic Exam: neurological assessment grossly intact Labs Results for orders placed or performed during the hospital encounter of (from the past 24 hour(s)) BASIC METABOLIC PANEL Collection Time: 09/30/18 2:13 PM Result Value Ref Range Sodium 142 137 - 147 MMOL/L Potassium 4.2 3.5 - 5.1 MMOL/L Chloride 108 98 - 110 MMOL/L CO2 25 21 - 30 MMOL/L Anion Gap 9 3 - 12 Glucose 126 (H) 70 - 100 MG/DL Blood Urea Nitrogen 17 7 - 25 MG/DL Creatinine 0.76 0.4 - 1.00 MG/DL Calcium 9.6 8.5 - 10.6 MG/DL eGFR Non >60 >60 mL/min eGFR >60 >60 mL/min MAGNESIUM Collection Time: 09/30/18 2:13 PM Result Value Ref Range Magnesium 1.9 1.6 - 2.6 mg/dL PHOSPHORUS Collection Time: 09/30/18 2:13 PM Result Value Ref Range Phosphorus 3.4 2.0 - 4.5 MG/DL TROPONIN-I Collection Time: 09/30/18 2:13 PM Result Value Ref Range Troponin-I 0.01 0.0 - 0.05 NG/ML Cardiographics: Twelve-lead EKG demonstrates atrial fibrillation, ventricular rate was in the range of 110-120 bpm Assessment & Plan Mame Archer is a 73 y.o. patient with the following problems: Active Problems: Atrial flutter with rapid ventricular response (HCC) In summary: This is a very pleasant 73-year-old white female that presented today at our hospital to undergo Botox injection of the gallbladder due to underlying urinary incontinence, patient developed tachycardia and then later atrial fibrillation in the recovery room, patient was symptomatic with heart palpitations. She does have a history of atrial fibrillation that occurred several years ago following another surgical procedure. Patient follows with a field services director in [place], [place] and she does not have coronary artery disease, she underwent a left heart catheterization in 2006. In the light of the above, I recommend the followin. Admit to telemetry 2. Start diltiazem intravenously 3. Anticoagulation with enoxaparin, 1 mg/kg subcu twice daily 4. Continue all other home medications for blood pressure control 5. 2D echo Doppler study evaluation in the morning 6. The patient will not convert to normal sinus rhythm this , then she will undergo a T guided cardioversion on Wednesday. 7. Fasting lipid and liver profile 8. Risk factor modification, educational weight reduction, low-fat, low- cholesterol, low sugar and low carbohydrate diet 9. Patient will follow-up with her field services director in her hometown. Megan Cutler MD R PRINT INSPECTOR in this encounter Miscellaneous Notes * Care Plan - Angle Montgomery RN - 10/02/2018 12:11 PM CDT Problem: Discharge Planning Goal: Participation in plan of care Outcome: Goal Achieved Date Met: 10/02/18 Pt actively participated in care including medication management, ambulation, and personal care Goal: Knowledge regarding plan of care Outcome: Goal Achieved Date Met: 10/02/18 Pt aware of discharge today Goal: Prepared for discharge Outcome: Goal Achieved Date Met: 10/02/18 AVS will be reviewed and PIVs will be removed. * Care Coordination-Inpatient - Carlo He MD - 10/01/2018 3:50 AM COLOR PRINT INSPECTOR Please page [phone] with any questions until 8am after that please page med private Q R PRINT INSPECTOR * Operative Report (Direct Entry) - Shefali Herring MD - 09/30/2018 10:25 AM COLOR PRINT INSPECTOR OPERATIVE REPORT Name: Mame Archer is a 73 y.o. female : 1945 DATE OF OPERATION: 09/30/2018 Surgeon(s) and Role: * Shefali Herring MD - Primary * Malcom Chaidez MD - Resident - Assisting Preoperative Diagnosis: Urge urinary incontinence [N39.41] Post-op Diagnosis * Urge urinary incontinence [N39.41] Procedure(s): CYSTOSCOPY WITH BOTOX INJECTION (150 UNITS) Anesthesia Type: Defer to Anesthesia Indications For Procedure: 73yoF with urge incontinence. here for repeat botox injections. Description and Findings of Operative Procedure: After obtaining informed consent, patient was brought back to the operating room and placed in the supine position. General anesthesia was induced smoothly without complication. A proper timeout was performed confirming proper patient, procedure, and laterality. Patient was moved to the dorsal lithotomy position. Patient was prepped and draped in the usual sterile fashion. All instruments were sterile. We began by placing the injection scope into the urethra and this is passed into the bladder with ease. 360 panendoscopy the bladder performance revealed no tumors stones or defects. There was 2+ trabeculation noted. We then began to inject her Botox and were careful not to inject any large vessels. We used 150units of Botox injected in 3 rows of 5. Patient tolerated this well afterwards there is noted to be hemostasis. The bladder was drained and patient was awoken from anesthesia. Patient was transferred to the PACU in stable condition. Dr. Herring was present scrubbed and directed all [place] portions of procedure. Estimated Blood Loss: None Specimen(s) Removed/Disposition: none Malcom Chaidez MD ATTESTATION I performed this procedure with a resident. Staff name: Shefali Herring MD R PRINT INSPECTOR in this encounter Plan of Treatment Care Team Description Date Type Specialty Shefali Herring MD [address] [facility] [address] [place] [address] CYSTOURETHROSCOPY WITH INJECTION FOR CHEMODENERVATION OF THE BLADDER (150UNITS) 03/31/2019 Surgery as of this encounter Procedures Comments Procedure Name Priority Date/Time Associated Diagnosis CBC AND DIFF Routine 10/02/2018 5:49 AM CDT MAGNESIUM Routine 10/02/2018 5:49 AM CDT COMPREHENSIVE METABOLIC Routine 10/02/2018 PANEL 5:49 AM CDT 2-D + DOPPLER Routine 10/01/2018 ECHOCARDIOGRAM 2:00 PM COLOR PRINT INSPECTOR CBC AND DIFF Routine 10/01/2018 4:29 AM COLOR PRINT INSPECTOR THYROID STIMULATING Add on 10/01/2018 HORMONE-TSH 4:29 AM COLOR PRINT INSPECTOR MAGNESIUM Routine 10/01/2018 4:29 AM COLOR PRINT INSPECTOR HEMOGLOBIN A1C Add on 10/01/2018 4:29 AM COLOR PRINT INSPECTOR LIPID PROFILE Routine 10/01/2018 4:29 AM COLOR PRINT INSPECTOR COMPREHENSIVE METABOLIC Routine 10/01/2018 PANEL 4:29 AM COLOR PRINT INSPECTOR TROPONIN-I STAT 09/30/2018 6:10 PM COLOR PRINT INSPECTOR PROTIME INR (PT) STAT 09/30/2018 6:10 PM COLOR PRINT INSPECTOR CBC STAT 09/30/2018 6:10 PM COLOR PRINT INSPECTOR ECG 12-LEAD Routine 09/30/2018 4:42 PM COLOR PRINT INSPECTOR TROPONIN-I 09/30/2018 2:13 PM COLOR PRINT INSPECTOR PHOSPHORUS STAT 09/30/2018 2:13 PM COLOR PRINT INSPECTOR MAGNESIUM STAT 09/30/2018 2:13 PM COLOR PRINT INSPECTOR BASIC METABOLIC PANEL STAT 09/30/2018 2:13 PM COLOR PRINT INSPECTOR CHEST SINGLE VIEW STAT 09/30/2018 2:11 PM COLOR PRINT INSPECTOR CYSTOURETHROSCOPY WITH 09/30/2018 Urge urinary incontinence INJECTION FOR 10:25 AM COLOR PRINT INSPECTOR CHEMODENERVATION OF THE BLADDER Special Needs 09/13 PER CHANGE FORM CASE MOVED FROM 09/27 TO 09/30 TO FOLLOW - CSesar DEXTER RN ([id number]) ECG-SCAN 09/30/2018 12:00 AM COLOR PRINT INSPECTOR in this encounter Results * MAGNESIUM (10/02/2018 5:49 AM CDT) Magnesium 1.8 1.6 - 2.6 mg/dL [facility] Specimen Blood Performing Organization Address City/State/Zipcode Phone Number [facility] [address] [place] [address] * COMPREHENSIVE METABOLIC PANEL (10/02/2018 5:49 AM CDT) Sodium 142 137 - 147 MMOL/L [facility] [...] Organization Address City/State/Zipcode Phone Number MAIN LAB [address] [place] [address] * CBC AND DIFF (10/02/2018 5:49 AM CDT) White Blood Cells 6.4 4.5 - 11.0 [...] Basophil Count 0.00 0 - 0.20 K/UL [employer] [facility] Specimen Blood Performing Organization Address City/State/Zipcode Phone Number [facility] [address] [place] [address] * 2-D + DOPPLER ECHOCARDIOGRAM (10/01/2018 2:00 PM COLOR PRINT INSPECTOR) IVS 0.64 0.6 - 0.9 cm OTHER [...] 34 OTHER OUTSIDE LAB Cardiology Ultrasound Siemens [id number] OTHER OUTSIDE LAB Machine Left Ventricle Mass [...] No Pericardial Effusion PASP=37mmHg Performing Organization Address City/[facility]/Zipcode Phone Number OTHER OUTSIDE LAB * THYROID STIMULATING HORMONE-TSH (10/01/2018 4:29 AM COLOR PRINT INSPECTOR) TSH 0.970 0.35 - 5.00 MCU/ML [facility] Performing Organization Address City/[facility] Phone Number [facility] [address] [phone] * HEMOGLOBIN A1C (10/01/2018 4:29 AM COLOR PRINT INSPECTOR) Hemoglobin A1C 6.0 4.0 - 6.0 % [facility] Comment: The ADA recommends that most patients with type 1 and type 2 diabetes maintain an A1c level <7%. Performing Organization Address City/[facility] Phone Number [facility] [address] [place] [address] * MAGNESIUM (10/01/2018 4:29 AM COLOR PRINT INSPECTOR) Magnesium 1.9 1.6 - 2.6 mg/dL [facility] Specimen Blood Performing Organization Address [facility] Phone Number [facility] [address] [place] [address] * COMPREHENSIVE METABOLIC PANEL (10/01/2018 4:29 AM COLOR PRINT INSPECTOR) Sodium 141 137 - 147 MMOL/L [facility] Potassium 3.6 3.5 - 5.1 MMOL/L [facility] Chloride 108 98 - 110 MMOL/L [facility] Glucose 112 (H) 70 - 100 MG/DL [facility] Blood Urea Nitrogen 15 7 - 25 MG/DL [facility] Creatinine 0.71 0.4 - 1.00 MG/DL [facility] Calcium 9.0 8.5 - 10.6 MG/DL [facility] Total Protein 6.0 6.0 - 8.0 G/DL [facility] Total Bilirubin 0.6 0.3 - 1.2 MG/DL [facility] Albumin 3.6 3.5 - 5.0 G/DL [facility] Alk Phosphatase 85 25 - 110 U/L [facility] AST (SGOT) 11 7 - 40 U/L [facility] CO2 25 21 - 30 MMOL/L [facility] ALT (SGPT) 11 7 - 56 U/L [facility] Anion Gap 8 3 - 12 [facility] eGFR [...] Address City/State/Zipcode Phone Number [facility] [address] [place] [address] * CBC AND DIFF (10/01/2018 4:29 AM COLOR PRINT INSPECTOR) White Blood Cells 9.1 4.5 - 11.0 K/UL [facility] RBC 4.80 4.0 - 5.0 M/UL [facility] Hemoglobin 14.0 12.0 - 15.0 GM/DL [facility] Hematocrit 41.6 36 - 45 % [facility] MCV 86.6 80 - 100 FL [facility] MCH 29.2 26 - 34 PG [facility] MCHC 33.7 32.0 - 36.0 G/DL [facility] RDW 14.2 11 - 15 % [facility] Platelet Count 202 150 - 400 K/UL [facility] MPV 7.7 7 - 11 FL [facility] Neutrophils 77 41 - 77 % [facility] Lymphocytes 16 (L) 24 - 44 % [facility] Monocytes 7 4 - 12 % [facility] Eosinophils 0 0 - 5 % [facility] Basophils 0 0 - 2 % [facility] Absolute Neutrophil Count 6.90 1.8 - 7.0 K/UL [facility] Absolute Lymph Count 1.50 1.0 - 4.8 K/UL [facility] Absolute Monocyte Count 0.60 0 - 0.80 K/UL [facility] Absolute Eosinophil Count 0.00 0 - 0.45 K/UL [facility] Absolute Basophil Count 0.00 0 - 0.20 K/UL [facility] Specimen Blood Performing Organization Address [facility] Phone Number MA[facility] LAB [address] [place] [address] * LIPID PROFILE (10/01/2018 4:29 AM COLOR PRINT INSPECTOR) Cholesterol 123 <200 MG/DL [facility] [...] 130 mg/dL. Specimen Blood Performing Organization Address [facility] Phone Number [facility] [address] [place] [address] * CBC (09/30/2018 6:10 PM COLOR PRINT INSPECTOR) White Blood Cells 10.2 4.5 - 11.0 K/UL [facility] RBC 5.06 (H) 4.0 - 5.0 M/UL [facility] Hemoglobin 15.1 (H) 12.0 - 15.0 GM/DL [facility] Hematocrit 42.7 36 - 45 % [facility] MCV 84.3 80 - 100 FL [facility]IN [facility] MCH 29.7 26 - 34 PG MAIN [facility] MCHC 35.3 32.0 - 36.0 G/DL [facility] RDW 14.5 11 - 15 % MAIN LAB Platelet Count 261 150 - 400 K/UL [facility] MPV 8.5 7 - 11 FL [facility] Specimen Blood Performing Organization Address [facility] Phone Number MA[facility] [address] [place] [address] * PROTIME INR (PT) (09/30/2018 6:10 PM COLOR PRINT INSPECTOR) INR 1.0 0.8 - 1.2 [facility] Specimen Blood Performing Organization Address City/[facility] Phone Number [facility] [address] [place] [address] * TROPONIN-I (09/30/2018 6:10 PM COLOR PRINT INSPECTOR) Troponin-I 0.01 0.0 - 0.05 NG/ML [facility] Specimen Blood Performing Organization Address [facility] Phone Number [facility] [address] [place] [address] * TROPONIN-I (09/30/2018 2:13 PM COLOR PRINT INSPECTOR) Troponin-I 0.01 0.0 - 0.05 NG/ML [facility] Performing Organization Address [facility] Phone Number [facility] [address] [place] [phone] * PHOSPHORUS (09/30/2018 2:13 PM COLOR PRINT INSPECTOR) Phosphorus 3.4Comment: NOTE NEW REFERENCE 2.0 - 4.5 MG/DL [facility] RANGES Specimen Blood Performing Organization Address [facility] Phone Number [facility] [address] [phone] * MAGNESIUM (09/30/2018 2:13 PM COLOR PRINT INSPECTOR) Magnesium 1.9 1.6 - 2.6 mg/dL [facility] Specimen Blood Performing Organization Address [facility] Phone Number [facility] [address] [place] [address] * BASIC METABOLIC PANEL (09/30/2018 2:13 PM COLOR PRINT INSPECTOR) Sodium 142 137 - 147 MMOL/L [facility] [...] Address City/State/Zipcode Phone Number [facility] [address] [place] [address] * CHEST SINGLE VIEW (09/30/2018 2:11 PM COLOR PRINT INSPECTOR) Impressions Performed At Poor depth of inspiration [...] Interface, Radiant Results - 09/30/2018 2:15 PM COLOR PRINT INSPECTOR Single view of the chest Clinical history: [...] RAD RESULTS * ECG-SCAN (09/30/2018 12:00 AM COLOR PRINT INSPECTOR) Narrative Performed At Ordered by an unspecified provider. in this encounter Visit Diagnoses Diagnosis Atrial fibrillation with rapid ventricular response (HCC) - Primary Atrial fibrillation Urge incontinence Paroxysmal atrial fibrillation (HCC) Atrial fibrillation Morbid obesity (HCC) Morbid obesity Coronary artery disease Coronary atherosclerosis of unspecified type of vessel, [place] or graft Hypertension Unspecified essential hypertension Depression (disease) Depressive disorder, not elsewhere classified Hyperlipidemia Other and unspecified hyperlipidemia Obstructive sleep apnea on CPAP Obstructive sleep apnea (adult) (pediatric) Asthma Unspecified asthma in this encounter Admitting Diagnoses Diagnosis Atrial flutter with rapid ventricular response (HCC) Atrial flutter in this encounter Administered Medications Action Date Dose Rate Site Medication Order MAR Action 10/01/2018 12:10 PM COLOR PRINT INSPECTOR 650 mg acetaminophen (TYLENOL) tablet 650 mg Given 650 mg, Oral, EVERY 6 HOURS PRN, Starting Wed09/30/18 at 1642, Until 10/02/18 at 1511, Pain non-opioid: may be used alone or in combination with opioid analgesia, TOTAL ACETAMINOPHEN DOSE NOT TO EXCEED 4GM DAILY, 10/02/2018 10:13 AM CDT 10 mg amLODIPine (NORVASC) tablet 10 mg Given 10 mg, Oral, DAILY, First dose on Wed09/30/18 at 1645, Until Discontinued, NURSING: Please educate patient and document: Do not give with grapefruit juice., 10 mg Given 10/01/2018 10:03 AM COLOR PRINT INSPECTOR 10 mg Given 09/30/2018 5:47 PM COLOR PRINT INSPECTOR 10/02/2018 10:13 AM CDT 81 mg aspirin EC tablet 81 mg Given 81 mg, Oral, DAILY, First dose on Wed10/01/18 at 0900, Until Discontinued 81 mg Given 10/01/2018 10:04 AM COLOR PRINT INSPECTOR 10/01/2018 8:37 PM COLOR PRINT INSPECTOR 80 mg atorvastatin (LIPITOR) tablet 80 mg Given 80 mg, Oral, AT BEDTIME DAILY, First dose on Wed09/30/18 at 2100, Until Discontinued 80 mg Given 09/30/2018 9:05 PM COLOR PRINT INSPECTOR 10/02/2018 10:13 AM CDT 5,000 Units cholecalciferol (VITAMIN D-3) tablet Given 5,000 Units 5,000 Units, Oral, DAILY, First dose on Wed10/01/18 at 1245, Until Discontinued 5,000 Units Given 10/01/2018 12:10 PM COLOR PRINT INSPECTOR 10/01/2018 1:37 AM COLOR PRINT INSPECTOR 5 mg/hr 5 mL/hr diltiazem (cardIZEM) 125 mg in sodium Dose/Rate chloride 0.9% (NS) 125 mL IV drip (std Change conc) 5-15 mg/hr (5-15 mL/hr) 125 mL, at 5-15 mL/hr, Intravenous, TITRATE DIRECTED , Starting Wed09/30/18 at 1700, Until Wed10/02/18 at 0957, Initiate at 5 mg/hr Titrate to keep at: HR 60 to 110 Call MD if Diltiazem 5 mg/hr or less and patient able to tolerate oral medications. Std Conc: 1mg/mL., 7.5 mg/hr 7.5 mL/hr Given - New Bag 10/01/2018 1:19 AM COLOR PRINT INSPECTOR 10 mg/hr 10 mL/hr Dose/Rate Change 10/01/2018 1:06 AM COLOR PRINT INSPECTOR 10/02/2018 6:07 AM CDT 120 mg Abdominal Tissue enoxaparin (LOVENOX) syringe 120 mg Given 120 mg (1 mg/kg 120 kg), Subcutaneous, EVERY 12 HOURS, First dose on Wed09/30/18 at 1800, Until Discontinued, GIVE ONLY AFTER WEIGHT VERIFIED For patients undergoing surgery: Consult physician in advance -- enoxaparin is an anticoagulant and may need to be held for 12hr prior to surgery or invasive procedures. NOTE: This is a HIGH ALERT Medication., 120 mg Abdominal Tissue Given 10/01/2018 5:48 PM COLOR PRINT INSPECTOR 120 mg Abdominal Tissue Given 10/01/2018 6:05 AM COLOR PRINT INSPECTOR 09/30/2018 4:52 PM COLOR PRINT INSPECTOR 175 mcg/kg/min 126 mL/hr esmolol (BREVIBLOC) 2500 mg/NS 250 mL Dose/Rate infusion (std conc) Change 50-300 mcg/kg/min 120 kg (36-216 mL/hr) 250 mL, at 36-216 mL/hr, Intravenous, TITRATE DIRECTED , Starting Wed09/30/18 at 1445, Until Wed09/30/18 at 1659, Initiate at 50 mcg/kg/min Hold for heart rate < 100 bpm Hold if SBPBP less than 110mmHg Titrate to keep: HR <100 >60 Std Conc=10,000 mcg/ml NOTE: For weight-based dosing, use patient dosing weight., 125 mcg/kg/min 90 mL/hr Dose/Rate Change 09/30/2018 4:06 PM COLOR PRINT INSPECTOR 100 mcg/kg/min 72 mL/hr Dose/Rate Change 09/30/2018 3:46 PM COLOR PRINT INSPECTOR 10/02/2018 10:13 AM CDT 0.5 mg estradiol (ESTRACE) tablet 0.5 mg Given 0.5 mg, Oral, DAILY, First dose on 3/9/19 at 0900, Until Discontinued 0.5 mg Given 10/01/2018 10:05 AM COLOR PRINT INSPECTOR 09/30/2018 11:33 AM COLOR PRINT INSPECTOR 1,000 mL 20 mL/hr lactated ringers infusion Given - New 1,000 mL, 1,000 mL, Intravenous, at 20 Bag mL/hr, CONTINUOUS, Starting Wed09/30/18 at 0930, Until Wed09/30/18 at 1642, Pre-Op Given - New Bag 09/30/2018 9:55 AM COLOR PRINT INSPECTOR 10/01/2018 10:04 AM COLOR PRINT INSPECTOR 535 mg magnesium chloride (MAG DELAY) tablet Given 535 mg 535 mg, Oral, TWICE DAILY, 2 doses, First dose on Wed09/30/18 at 1515, Last dose on Wed10/01/18 at 0900, Each 535mg delivers 64mg elemental magnesium., 535 mg Given 09/30/2018 3:42 PM COLOR PRINT INSPECTOR 09/30/2018 12:38 PM COLOR PRINT INSPECTOR 10 mg metoprolol (LOPRESSOR) injection 10 mg Given 10 mg, Intravenous, ONCE, 1 dose, Wed09/30/18 at 1245, PROTECT FROM LIGHT, PACU (only) 09/30/2018 11:35 AM COLOR PRINT INSPECTOR 5 mg metoprolol (LOPRESSOR) injection 5 mg Given 5 mg, Intravenous, ONCE, 1 dose, Wed09/30/18 at 1145, PROTECT FROM LIGHT, PACU (only) 09/30/2018 11:58 AM COLOR PRINT INSPECTOR 5 mg metoprolol (LOPRESSOR) injection 5 mg Given 5 mg, Intravenous, ONCE, 1 dose, Wed09/30/18 at 1200, PROTECT FROM LIGHT, PACU (only) 09/30/2018 12:17 PM COLOR PRINT INSPECTOR 5 mg metoprolol (LOPRESSOR) injection 5 mg Given 5 mg, Intravenous, ONCE, 1 dose, Wed09/30/18 at 1230, PROTECT FROM LIGHT, PACU (only) 09/30/2018 9:05 PM COLOR PRINT INSPECTOR 100 mg metoprolol tartrate (LOPRESSOR) tablet Given 100 mg 100 mg, Oral, TWICE DAILY, First dose on Wed09/30/18 at 2100, Until Discontinued, Hold for heart rate < 60 bpm Hold if SBP less 100, metoprolol tartrate (LOPRESSOR) tablet 50 mg 50 mg, Oral, TWICE DAILY, First dose on Wed10/01/18 at 2100, Until Discontinued, Hold for heart rate < 60 bpm Hold if SBP less 100, METOPROLOL TARTRATE 5 MG/5 ML IV SOLN (Cabinet Override) NOW, 1 dose, Wed09/30/18 at 0945, Created by cabinet override PROTECT FROM LIGHT, Created by cabinet override, 10/01/2018 8:37 PM COLOR PRINT INSPECTOR 10 mg montelukast (SINGULAIR) tablet 10 mg Given 10 mg, Oral, AT BEDTIME DAILY, First dose on Wed09/30/18 at 2100, Until Discontinued 10 mg Given 09/30/2018 9:05 PM COLOR PRINT INSPECTOR 09/30/2018 4:07 PM COLOR PRINT INSPECTOR 100 Units ONAbotulinum toxin (BOTOX) syringe 100 Given - See Units OR/Proc 100 Units, SEE ADMIN INSTRUCTIONS, ONCE, Flowsheet 1 dose, Wed09/30/18 at 0730, ++For immediate use ++ Short Stability++, 10/01/2018 2:01 PM COLOR PRINT INSPECTOR 1 Diluted mL perflutren lipid microspheres (DEFINITY) Given injection 1-20 Diluted mL 1-20 Diluted mL, Intravenous, ONCE PRN, 1 dose, Starting 10/01/18 at 1305, Until 10/01/18 at 1401, For Procedure, A horse racer may only administer Definity through a saline lock. If IV is in use or a port, PICC, or central line is being used a nurse must administer. NOTE: This is a HIGH ALERT Medication., MAC Procedure Area Only - Medications 10/02/2018 10:13 AM CDT 150 mg sertraline (ZOLOFT) tablet 150 mg Given 150 mg, Oral, EVERY MORNING, First dose on Wed10/01/18 at 0800, Until Discontinued 150 mg Given 10/01/2018 10:04 AM COLOR PRINT INSPECTOR 10/01/2018 8:37 PM COLOR PRINT INSPECTOR 50 mg traZODone (DESYREL) tablet 50 mg Given 50 mg, Oral, AT BEDTIME DAILY, First dose on Wed09/30/18 at 2100, Until Discontinued 50 mg Given 09/30/2018 9:05 PM COLOR PRINT INSPECTOR 10/02/2018 10:14 AM CDT 1 tablet triamterene-hydrochlorothiazide Given (MAXZIDE) 37.5-25 mg tablet 1 tablet 1 tablet, Oral, EVERY MORNING, First dose on 10/01/18 at 0800, Until Discontinued 1 tablet Given 10/01/2018 10:04 AM COLOR PRINT INSPECTOR in this encounter
--- OUTSIDE RECORDS SUMMARY | 2018-10-02 22:53 | XMS REPORT | Encounter Summary ---
Author Author [facility] Organization [facility] Address Unknown Phone Unavailable Care Team Providers Care Director Clinical Pharmacology Name Role Phone Alan Ramachandran MD Unavailable [...] incontinence Urge urinary incontinence [N39.41] P rocedures [place] CYSTOURETHROSCOPY INJ CHEMODENERVATION BLADDER CYSTOSCOPY WITH BOTOX INJECTION (150 UNITS) Encounter Details Care Team Description Date Type Department Shefali Herring MD [address] [facility] [address] [place] [address] CYSTOSCOPY WITH BOTOX INJECTION (150 UNITS) 09/30/2018 Surgery [address] Operating Room [facility] [address] [place] [address] Social History Date Tobacco Use Types Packs/Day [...] Inhaled Oxygen - Concentration 10/01/2018 2:00 PM NEONATAL PEDIATRIC NURSE Weight 121.6 kg (268 lb) 10/01/2018 2:00 PM NEONATAL PEDIATRIC NURSE Height 170.2 cm (5' 7") 10/01/2018 2:00 PM NEONATAL PEDIATRIC NURSE Body Mass Index 41.97 in this encounter [...] cognitive impairment: No as of this encounter Medications at Time of Discharge [...] in a 24 hour period. Call your electrician apprentice powerhouse if you have to use this medication. [...] mg tablet morning. as of this encounter Plan of Treatment Care Team Description Date Type Specialty Shefali Herring MD [address] [facility] [address] [place] [address] [phone] CYSTOURETHROSCOPY WITH INJECTION FOR CHEMODENERVATION OF THE BLADDER (150UNITS) 03/31/2019 Surgery as of this encounter Procedures Comments Procedure Name Priority Date/Time Associated Diagnosis CBC AND DIFF Routine 10/02/2018 5:49 AM CDT MAGNESIUM Routine 10/02/2018 5:49 AM CDT COMPREHENSIVE METABOLIC Routine 10/02/2018 PANEL 5:49 AM CDT 2-D + DOPPLER Routine 10/01/2018 ECHOCARDIOGRAM 2:00 PM NEONATAL PEDIATRIC NURSE CBC AND DIFF Routine 10/01/2018 4:29 AM NEONATAL PEDIATRIC NURSE THYROID STIMULATING Add on 10/01/2018 HORMONE-TSH 4:29 AM NEONATAL PEDIATRIC NURSE MAGNESIUM Routine 10/01/2018 4:29 AM NEONATAL PEDIATRIC NURSE HEMOGLOBIN A1C Add on 10/01/2018 4:29 AM NEONATAL PEDIATRIC NURSE LIPID PROFILE Routine 10/01/2018 4:29 AM NEONATAL PEDIATRIC NURSE COMPREHENSIVE METABOLIC Routine 10/01/2018 PANEL 4:29 AM NEONATAL PEDIATRIC NURSE TROPONIN-I STAT 09/30/2018 6:10 PM NEONATAL PEDIATRIC NURSE PROTIME INR (PT) STAT 09/30/2018 6:10 PM NEONATAL PEDIATRIC NURSE CBC STAT 09/30/2018 6:10 PM NEONATAL PEDIATRIC NURSE ECG 12-LEAD Routine 09/30/2018 4:42 PM NEONATAL PEDIATRIC NURSE TROPONIN-I 09/30/2018 2:13 PM NEONATAL PEDIATRIC NURSE PHOSPHORUS STAT 09/30/2018 2:13 PM NEONATAL PEDIATRIC NURSE MAGNESIUM STAT 09/30/2018 2:13 PM NEONATAL PEDIATRIC NURSE BASIC METABOLIC PANEL STAT 09/30/2018 2:13 PM NEONATAL PEDIATRIC NURSE CHEST SINGLE VIEW STAT 09/30/2018 2:11 PM NEONATAL PEDIATRIC NURSE CYSTOURETHROSCOPY WITH 09/30/2018 Urge urinary incontinence INJECTION FOR 10:25 AM NEONATAL PEDIATRIC NURSE CHEMODENERVATION OF THE BLADDER Special Needs 09/13 PER CHANGE FORM CASE MOVED FROM 09/27 TO 09/30 TO FOLLOW - Viola DEXTER RN ([id number]) ECG-SCAN 09/30/2018 12:00 AM NEONATAL PEDIATRIC NURSE in this encounter Results * MAGNESIUM (10/02/2018 5:49 AM CDT) Magnesium 1.8 1.6 - 2.6 mg/dL [facility] Specimen Blood Performing Organization Address City/[facility] Phone Number [facility] [address] [phone] * COMPREHENSIVE METABOLIC PANEL (10/02/2018 5:49 AM [...] for questions. Specimen Blood Performing Organization Address [facility]/Zipcode Phone Number MAIN LAB [address] [place] [address] * CBC AND DIFF (10/02/2018 5:49 AM [...] LAB MCHC 34.6 32.0 - 36.0 G/DL [facility] RDW 14.1 11 - 15 % [facility] Platelet Count 179 150 - 400 K/UL [facility] MPV 7.4 7 - 11 FL [facility] Neutrophils 60 41 - 77 % [facility] Lymphocytes 30 24 - 44 % [facility] Monocytes 6 4 - 12 % [facility] Eosinophils 3 0 - 5 % [facility] Basophils 1 0 - 2 % [facility] Absolute Neutrophil Count 3.80 1.8 - 7.0 K/UL [facility] Absolute Lymph Count 1.90 1.0 - 4.8 K/UL [facility] Absolute Monocyte Count 0.40 0 - 0.80 K/UL [facility] Absolute Eosinophil Count 0.20 0 - 0.45 K/UL [facility] Absolute Basophil Count 0.00 0 - 0.20 K/UL [facility] Specimen Blood Performing Organization Address City/State/Zipcode Phone Number [facility] [address] [place] [address] * 2-D + DOPPLER ECHOCARDIOGRAM (10/01/2018 2:00 PM NEONATAL PEDIATRIC NURSE) IVS 0.64 0.6 - 0.9 cm OTHER [...] 34 OTHER OUTSIDE LAB Cardiology Ultrasound Siemens [id number] OTHER OUTSIDE LAB Machine Left Ventricle Mass [...] No Pericardial Effusion PASP=37mmHg Performing Organization Address City/[facility]/Zipcode Phone Number OTHER OUTSIDE LAB * THYROID STIMULATING HORMONE-TSH (10/01/2018 4:29 AM NEONATAL PEDIATRIC NURSE) TSH 0.970 0.35 - 5.00 MCU/ML MAIN LAB Performing Organization Address City/[facility] Phone Number MAIN [facility] [address] [place] [address] * HEMOGLOBIN A1C (10/01/2018 4:29 AM NEONATAL PEDIATRIC NURSE) Hemoglobin A1C 6.0 4.0 - 6.0 % MAIN [facility] Comment: The ADA recommends that most patients with type 1 and type 2 diabetes maintain an A1c level <7%. Performing Organization Address City/State/Zipcode Phone Number MAIN LAB [address] [place] [address] * MAGNESIUM (10/01/2018 4:29 AM NEONATAL PEDIATRIC NURSE) Magnesium 1.9 1.6 - 2.6 mg/dL MAIN LAB Specimen Blood Performing Organization Address City/[facility]/[employer] Phone Number MAIN LAB [address] [place] [address] * COMPREHENSIVE METABOLIC PANEL (10/01/2018 4:29 AM NEONATAL PEDIATRIC NURSE) Sodium 141 137 - 147 MMOL/L [facility] [...] Address City/State/Zipcode Phone Number [facility] [address] [place] [address] * CBC AND DIFF (10/01/2018 4:29 AM NEONATAL PEDIATRIC NURSE) White Blood Cells 9.1 4.5 - 11.0 [...] MAIN LAB Specimen Blood Performing Organization Address [facility] Phone Number [facility] [address] [place] [address] * LIPID PROFILE (10/01/2018 4:29 AM NEONATAL PEDIATRIC NURSE) Cholesterol 123 <200 MG/DL [facility] Triglycerides 155 (H) <150 MG/DL [facility] HDL 37 (L) >40 MG/DL [facility] LDL 62 <100 MG/DL [facility] VLDL 31 MG/DL [facility] Non HDL Cholesterol 86 MG/DL [facility] Comment: Calculated non-HDL Cholesterol (non-HDL-C) indirectly measures LDL-C, Lp(a), IDL-C, and VLDL-C.It is a surrogate marker for Apoprotein B.Goal should be less than 130 mg/dL. Specimen Blood Performing Organization Address [facility] Phone Number [facility] [address] [place] [address] * CBC (09/30/2018 6:10 PM NEONATAL PEDIATRIC NURSE) White Blood Cells 10.2 4.5 - 11.0 [...] MAIN LAB Specimen Blood Performing Organization Address City/[facility]code Phone Number MAIN LAB [address] [place] [address] * PROTIME INR (PT) (09/30/2018 6:10 PM NEONATAL PEDIATRIC NURSE) INR 1.0 0.8 - 1.2 MAIN LAB Specimen Blood Performing Organization Address [facility] Phone Number MAIN LAB [address] [place] [address] * TROPONIN-I (09/30/2018 6:10 PM NEONATAL PEDIATRIC NURSE) Troponin-I 0.01 0.0 - 0.05 NG/ML MAIN LAB Specimen Blood Performing Organization Address [facility]/[place] Phone Number MAIN LAB [address] [place] [address] * TROPONIN-I (09/30/2018 2:13 PM NEONATAL PEDIATRIC NURSE) Troponin-I 0.01 0.0 - 0.05 NG/ML MAIN LAB Performing Organization Address [facility]/[place] Phone Number MAIN LAB [address] [place] [address] * PHOSPHORUS (09/30/2018 2:13 PM NEONATAL PEDIATRIC NURSE) Phosphorus 3.4Comment: NOTE NEW REFERENCE 2.0 - 4.5 MG/DL MAIN LAB RANGES Specimen Blood Performing Organization Address [facility]/[place] Phone Number MAIN LAB [address] [place] [address] * MAGNESIUM (09/30/2018 2:13 PM NEONATAL PEDIATRIC NURSE) Magnesium 1.9 1.6 - 2.6 mg/dL [facility] Specimen Blood Performing Organization Address [facility] Phone Number MAIN LAB [address] [place] [address] * BASIC METABOLIC PANEL (09/30/2018 2:13 PM NEONATAL PEDIATRIC NURSE) Sodium 142 137 - 147 MMOL/L [facility] [...] City/State/Zipcode Phone Number [facility] [address] [place] [address] * CHEST SINGLE VIEW (09/30/2018 2:11 PM NEONATAL PEDIATRIC NURSE) Impressions Performed At Poor depth of inspiration [...] Interface, Radiant Results - 09/30/2018 2:15 PM NEONATAL PEDIATRIC NURSE Single view of the chest Clinical history: [...] RAD RESULTS * ECG-SCAN (09/30/2018 12:00 AM NEONATAL PEDIATRIC NURSE) Narrative Performed At Ordered by an unspecified provider. in this encounter Visit Diagnoses Diagnosis Urge urinary incontinence Urge incontinence in this encounter Admitting Diagnoses Diagnosis Atrial flutter with rapid ventricular response (HCC) Atrial flutter in this encounter Administered Medications Action Date Dose Rate Site Medication Order MAR Action 10/01/2018 12:10 PM NEONATAL PEDIATRIC NURSE 650 mg acetaminophen (TYLENOL) tablet 650 mg Given 650 mg, Oral, EVERY 6 HOURS PRN, Starting Wed09/30/18 at 1642, Until Wed10/02/18 at 1511, Pain non-opioid: may be used [...] juice., 10 mg Given 10/01/2018 10:03 AM NEONATAL PEDIATRIC NURSE 10 mg Given 09/30/2018 5:47 PM NEONATAL PEDIATRIC NURSE 10/02/2018 10:13 AM CDT 81 mg aspirin EC tablet 81 mg Given 81 mg, Oral, DAILY, First dose on Wed10/01/18 at 0900, Until Discontinued 81 mg Given 10/01/2018 10:04 AM NEONATAL PEDIATRIC NURSE 10/01/2018 8:37 PM NEONATAL PEDIATRIC NURSE 80 mg atorvastatin (LIPITOR) tablet 80 mg Given 80 mg, Oral, AT BEDTIME DAILY, First dose on Wed09/30/18 at 2100, Until Discontinued 80 mg Given 09/30/2018 9:05 PM NEONATAL PEDIATRIC NURSE 10/02/2018 10:13 AM CDT 5,000 Units cholecalciferol (VITAMIN D-3) tablet Given 5,000 Units 5,000 Units, Oral, DAILY, First dose on Wed10/01/18 at 1245, Until Discontinued 5,000 Units Given 10/01/2018 12:10 PM NEONATAL PEDIATRIC NURSE 10/02/2018 6:07 AM CDT 120 mg Abdominal [...] mg Abdominal Tissue Given 10/01/2018 5:48 PM NEONATAL PEDIATRIC NURSE 120 mg Abdominal Tissue Given 10/01/2018 6:05 AM NEONATAL PEDIATRIC NURSE 10/02/2018 10:13 AM CDT 0.5 mg estradiol (ESTRACE) tablet 0.5 mg Given 0.5 mg, Oral, DAILY, First dose on Wed10/01/18 at 0900, Until Discontinued 0.5 mg Given 10/01/2018 10:05 AM NEONATAL PEDIATRIC NURSE metoprolol tartrate (LOPRESSOR) tablet 50 mg 50 mg, Oral, TWICE DAILY, First dose on Wed10/01/18 at 2100, Until Discontinued, Hold for heart rate < 60 bpm Hold if SBP less 100, 10/01/2018 8:37 PM NEONATAL PEDIATRIC NURSE 10 mg montelukast (SINGULAIR) tablet 10 mg Given 10 mg, Oral, AT BEDTIME DAILY, First dose on Wed09/30/18 at 2100, Until Discontinued 10 mg Given 09/30/2018 9:05 PM NEONATAL PEDIATRIC NURSE 09/30/2018 10:15 AM NEONATAL PEDIATRIC NURSE 150 Units ONAbotulinum toxin A (BOTOX) injection Given INTRA-PROCEDURE MED, Starting Wed09/30/18 at 1026, Until Wed09/30/18 at 1037, Intra-op 10/02/2018 10:13 AM CDT 150 mg sertraline (ZOLOFT) tablet 150 mg Given 150 mg, Oral, EVERY MORNING, First dose on Wed10/01/18 at 0800, Until Discontinued 150 mg Given 10/01/2018 10:04 AM NEONATAL PEDIATRIC NURSE 09/30/2018 10:26 AM NEONATAL PEDIATRIC NURSE 3,000 mL sodium chloride 0.9 % irrigation bag Given INTRA-PROCEDURE MED, Starting Wed09/30/18 at 1026, Until Wed09/30/18 at 1037, Intra-op 10/01/2018 8:37 PM NEONATAL PEDIATRIC NURSE 50 mg traZODone (DESYREL) tablet 50 mg Given 50 mg, Oral, AT BEDTIME DAILY, First dose on Wed09/30/18 at 2100, Until Discontinued 50 mg Given 09/30/2018 9:05 PM NEONATAL PEDIATRIC NURSE 10/02/2018 10:14 AM CDT 1 tablet triamterene-hydrochlorothiazide Given (MAXZIDE) 37.5-25 mg tablet 1 tablet 1 tablet, Oral, EVERY MORNING, First dose on 10/01/18 at 0800, Until Discontinued 1 tablet Given 10/01/2018 10:04 AM NEONATAL PEDIATRIC NURSE in this encounter
--- OUTSIDE RECORDS SUMMARY | 2018-10-02 23:09 | XMS REPORT | Continuity of Care Document ---
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 CORONARY 01/13/2017 LISA OVALLE FACC, QAMAR FACP CCDS Ot Z86.79 PERSONAL HISTORY OF OTHER DISEASES OF TH 01/13/2017 QAMAR GONZALEZ MD, FACC FACP CCDS Ot E78.4 OTHER HYPERLIPIDEMIA 01/13/2017 LISA OVALLE FACC, QAMAR FACP CCDS Ot G47.33 OBSTRUCTIVE SLEEP APNEA (ADULT) (PEDIATR 01/13/2017 LISA OVALLE FACC, ALI FACP CCDS Ot I10 ESSENTIAL (PRIMARY) HYPERTENSION 01/13/2017 LISA OVALLE FACC, QAMAR FACP CCDS Ot I25.10 ATHSCL HEART DISEASE OF [place] CORONARY 01/13/2017 QAMAR GONZALEZ MD, FACC FACP CCDS Ot Z86.79 PERSONAL HISTORY OF OTHER DISEASES OF TH 01/13/2017 LISA OVALLE FACC, ALI FACP CCDS Ot E78.4 OTHER HYPERLIPIDEMIA 01/13/2017 LISA OVALLE FACC, ALI FACP CCDS Ot G47.33 OBSTRUCTIVE SLEEP APNEA (ADULT) (PEDIATR 01/13/2017 LISA OVALLE FACC, ALI FACP CCDS Ot I10 ESSENTIAL (PRIMARY) HYPERTENSION 01/13/2017 LISA OVALLE FACC, ALI FACP CCDS Ot I25.10 ATHSCL HEART DISEASE OF [place] CORONARY 01/13/2017 LISA OVALLE FACC, ALI FACP CCDS Ot Z86.79 PERSONAL HISTORY OF OTHER DISEASES OF TH 01/13/2017 LISA OVALLE FACC, ALI FACP CCDS Ot E78.4 OTHER HYPERLIPIDEMIA 01/13/2017 LISA OVALLE FACC, ALI FACP CCDS Ot G47.33 OBSTRUCTIVE SLEEP APNEA (ADULT) (PEDIATR 01/13/2017 LISA OVALLE FACC, ALI FACP CCDS Ot I10 ESSENTIAL (PRIMARY) HYPERTENSION 01/13/2017 LISA OVALLE FACC, ALI FACP CCDS Ot I25.10 ATHSCL HEART DISEASE OF [place] CORONARY 01/13/2017 LISA OVALLE FACC, ALI FACP CCDS Ot Z86.79 PERSONAL HISTORY OF OTHER DISEASES OF TH 01/13/2017 LISA OVALLE FACC, QAMAR FACP CCDS Ot E78.4 OTHER HYPERLIPIDEMIA 01/13/2017 LIAS OVALLE FACC, ALI FACP CCDS Ot G47.33 OBSTRUCTIVE SLEEP APNEA (ADULT) (PEDIATR 01/13/2017 LISA OVALLE FACC, QAMAR FACP CCDS Ot I10 ESSENTIAL (PRIMARY) HYPERTENSION 01/13/2017 LISA OVALLE FACC, ALI FACP CCDS Ot I25.10 ATHSCL HEART DISEASE OF [place] CORONARY 01/13/2017 LISA OVALLE FACC, ALI FACP CCDS Ot Z86.79 PERSONAL HISTORY OF OTHER DISEASES OF 01/21/2017 LISA OVALLE FACC, ALI FACP CCDS Ot E78.4 OTHER HYPERLIPIDEMIA 01/21/2017 LISA OVALLE FACC, ALI FACP CCDS Ot G47.33 OBSTRUCTIVE SLEEP APNEA (ADULT) (PEDIATR 01/21/2017 LISA OVALLE FACC, ALI FACP CCDS Ot I10 ESSENTIAL (PRIMARY) HYPERTENSION 01/21/2017 LISA OVALLE FACC, ALI FACP CCDS Ot I25.10 ATHSCL HEART DISEASE OF [place] CORONARY 01/21/2017 [facility]I FACP CCDS Ot Z86.79 PERSONAL HISTORY OF OTHER DISEASES OF TH 02/08/2017 LISA OVALLE [facility], ALI FACP CCDS Ot E78.4 OTHER HYPERLIPIDEMIA 02/08/2017 LISA OVALLE [facility], ALI FACP CCDS Ot G47.33 OBSTRUCTIVE SLEEP APNEA (ADULT) (PEDIATR 02/08/2017 LISA OVALLE [facility], ALI FACP CCDS Ot I10 ESSENTIAL (PRIMARY) HYPERTENSION 02/08/2017 LISA OVALLE [facility], ALI FACP CCDS Ot I25.10 ATHSCL HEART DISEASE OF [place] CORONARY 02/08/2017 LISA OVALLE [facility], ALI FACP CCDS Ot Z86.79 PERSONAL HISTORY OF OTHER DISEASES OF TH 03/01/2017 [facility]I FACP CCDS Ot E78.4 OTHER HYPERLIPIDEMIA 03/01/2017 [facility], [facility]I FACP CCDS Ot G47.33 OBSTRUCTIVE SLEEP APNEA (ADULT) (PEDIATR 03/01/2017 LISA OVALLE [facility], ALI FACP CCDS Ot I10 ESSENTIAL (PRIMARY) HYPERTENSION 03/01/2017 LISA OVALLE [facility], ALI FACP CCDS Ot I25.10 ATHSCL HEART DISEASE OF [place] CORONARY 03/01/2017 LISA OVALLE [facility], ALI FACP CCDS Ot Z86.79 PERSONAL HISTORY OF OTHER DISEASES OF 03/11/2018 Ot 401.9 HYPERTENSION NOS 03/11/2018 Ot 578.1 BLOOD IN STOOL 03/11/2018 Ot 782.3 EDEMA 03/11/2018 Ot 791.9 ABN URINE FINDINGS NEC 03/11/2018 Ot V43.65 KNEE JOINT REPLACEMENT STATUS 03/11/2018 DARNELL DOTABATHAI Ot V76.12 OTH SCREEN MAMMO-MALIGN NEOPLASM OF [place]LA[place] 03/11/2018 DARNELLTABATHA LEZAMA DOI Ot V76.12 OTH SCREEN MAMMO-MALIGN NEOPLASM OF [place]LA[place] 03/11/2018 RASHAUN HORN ROD DRAWER Ot 401.9 HYPERTENSION NOS 03/11/2018 RASHAUN HORN L ROD DRAWER Ot 414.00 CORON ATHEROSCLER NOS TYPE VESSEL, NATIV 03/11/2018 RASHAUN HORN L ROD DRAWER Ot 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 HEART DIS NEC 03/11/2018 RASHAUN HORN ROD DRAWER Ot 780.57 UNSPECIFIED SLEEP APNEA 03/11/2018 ANAY DARNELL DO Ot V76.12 OTH SCREEN MAMMO-MALIGN NEOPLASM OF [place]LA[place] 03/11/2018 ANNIE OVALLE, JACOBO Ot 530.81 ESOPHAGEAL REFLUX 03/11/2018 LISA MARTE, ALI FACP CCDS Ot 272.4 HYPERLIPIDEMIA NEC/NOS 03/11/2018 LISA OVALLE FACC, ALI FACP CCDS Ot 278.00 OBESITY, NOS 03/11/2018 LISA OVALLE FACC, ALI FACP CCDS Ot 401.9 HYPERTENSION NOS 03/11/2018 LISA OVALLE FACC, ALI FACP CCDS Ot 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 HEART DIS NEC 03/11/2018 LISA OVALLE FACC, ALI FACP CCDS Ot 780.57 UNSPECIFIED SLEEP APNEA 03/11/2018 LISA OVALLE FACC, ALI FACP CCDS Ot 790.29 OTHER ABNORMAL GLUCOSE 03/11/2018 ANAY DARNELL DO Ot Z12.31 ENCNTR SCREEN MAMMOGRAM FOR MALIGNANT NE 03/11/2018 BETHELRASHAUN PANTOJA Josh ROD DRAWER Ot R50.9 FEVER, UNSPECIFIED 03/11/2018 ANAY DARNELL DO Ot Z12.31 ENCNTR SCREEN MAMMOGRAM FOR MALIGNANT NE 03/11/2018 LISA MARTE, ALI FACP CCDS Ot E78.4 OTHER HYPERLIPIDEMIA 03/11/2018 LISA OVALLE FAC, ALI FACP CCDS Ot G47.33 OBSTRUCTIVE SLEEP APNEA (ADULT) (PEDIATR 03/11/2018 LISA MARTEC, ALI FACP CCDS Ot I10 ESSENTIAL (PRIMARY) HYPERTENSION 03/11/2018 LISA MARTE, ALI FACP CCDS Ot I25.10 ATHSCL HEART DISEASE OF [place] CORONARY 03/11/2018 LISA MARTEC, ALI FACP CCDS Ot Z86.79 PERSONAL HISTORY OF OTHER DISEASES OF TH 03/11/2018 ANAY DARNELL DO Ot Z12.31 ENCNTR SCREEN MAMMOGRAM FOR MALIGNANT NE 03/14/2018 ANAY DARNELL DO Ot Z12.31 ENCNTR SCREEN MAMMOGRAM FOR MALIGNANT NE 04/13/2018 ANAY DARNELL DO Ot Z12.31 ENCNTR SCREEN MAMMOGRAM FOR MALIGNANT NE Procedures Code Description Performed By Performed On 81.54 TOTAL KNEE REPLACEMENT 09/14/2012 Results Test Result Range Methicillin resistant Staphylococcus aureus (MRSA) screening culture - 13:35 Methicillin resistant Staphylococcus aureus (MRSA) screening culture NEG NRG Automated blood complete blood count (hemogram) panel - 06/04/16 07:31 Blood leukocytes automated count (number/volume) 8.4 10*3/uL 4.3-11.0 Blood erythrocytes automated count (number/volume) 4.79 10*6/uL 4.35-5.85 Venous blood hemoglobin measurement (mass/volume) 14.2 g/dL 11.5-16.0 Blood hematocrit (volume fraction) 42 % 35-52 Automated erythrocyte mean corpuscular volume 87 [foz_us] 80-99 Automated erythrocyte mean corpuscular hemoglobin (mass per erythrocyte) 30 pg 25-34 Automated erythrocyte mean corpuscular hemoglobin concentration measurement ( mass/volume) 34 g/dL 32-36 Automated erythrocyte distribution width ratio 13.9 % 10.0-14.5 Automated blood platelet count (count/volume) 221 10*3/uL 130-400 Automated blood platelet mean volume measurement 9.6 [foz_us] 7.4-10.4 Complete blood count (CBC) with automated white blood cell (WBC) differential - 06/26/16 15:42 Blood leukocytes automated count (number/volume) 9.8 10*3/uL 4.3-11.0 Blood erythrocytes automated count (number/volume) 4.55 10*6/uL 4.35-5.85 Venous blood hemoglobin measurement (mass/volume) 13.4 g/dL 11.5-16.0 Blood hematocrit (volume fraction) 40 % 35-52 Automated erythrocyte mean corpuscular volume 89 [foz_us] 80-99 Automated erythrocyte mean corpuscular hemoglobin (mass per erythrocyte) 30 pg 25-34 Automated erythrocyte mean corpuscular hemoglobin concentration measurement ( mass/volume) 33 g/dL 32-36 Automated erythrocyte distribution width ratio 14.3 % 10.0-14.5 Automated blood platelet count (count/volume) 239 10*3/uL 130-400 Automated blood platelet mean volume measurement 9.9 [foz_us] 7.4-10.4 Automated blood neutrophils/100 leukocytes 70 % 42-75 Automated blood lymphocytes/100 leukocytes 17 % 12-44 Blood monocytes/100 leukocytes 7 % 0-12 Automated blood eosinophils/100 leukocytes 6 % 0-10 Automated blood basophils/100 leukocytes 0 % 0-10 Blood neutrophils automated count (number/volume) 6.8 10*3 1.8-7.8 Blood lymphocytes automated count (number/volume) 1.7 10*3 1.0-4.0 Blood monocytes automated count (number/volume) 0.7 10*3 0.0-1.0 Automated eosinophil count 0.6 10*3/uL 0.0-0.3 Automated blood basophil count (count/volume) 0.0 10*3/uL 0.0-0.1 Complete urinalysis with reflex to culture - 06/26/16 15:45 Urine color determination YELLOW NRG Urine clarity determination CLEAR NRG Urine pH measurement by test strip 6.5 5-9 Specific gravity of urine by test strip 1.015 1.016- 1.022 Urine protein assay by test strip, semi-quantitative NEGATIVE NEGATIVE Urine glucose detection by automated test strip NEGATIVE NEGATIVE Erythrocytes detection in urine sediment by light microscopy 1+ NEGATIVE Urine ketones detection by automated test strip NEGATIVE NEGATIVE Urine nitrite detection by test strip NEGATIVE NEGATIVE Urine total bilirubin detection by test strip NEGATIVE NEGATIVE Urine urobilinogen measurement by automated test strip (mass/volume) NORMAL NORMAL Urine leukocyte esterase detection by dipstick 1+ NEGATIVE Automated urine sediment erythrocyte count by microscopy (number/high power field) [HPF] NRG Automated urine sediment leukocyte count by microscopy (number/high power field ) [HPF] NRG Bacteria detection in urine sediment by light microscopy MODERATE NRG Squamous epithelial cells detection in urine sediment by light microscopy 5-10 NRG Crystals detection in urine sediment by light microscopy NONE NRG Casts detection in urine sediment by light microscopy NONE NRG Mucus detection in urine sediment by light microscopy NEGATIVE NRG Complete urinalysis with reflex to culture YES NRG Bacterial urine culture - 06/26/16 15:45 Bacterial urine culture [id number] NRG COLONY COUNT <10,000 NRG FTX;REPORTABLE (AND NOT GROUP D STREP) NRG Complete blood count (CBC) with automated white blood cell (WBC) differential - 12/29/16 01:10 Blood leukocytes automated count (number/volume) 10.0 10*3/uL 4.3-11.0 Blood erythrocytes automated count (number/volume) 4.95 10*6/uL 4.35-5.85 Venous blood hemoglobin measurement (mass/volume) 14.3 g/dL 11.5-16.0 Blood hematocrit (volume fraction) 43 % 35-52 Automated erythrocyte mean corpuscular volume 87 [foz_us] 80-99 Automated erythrocyte mean corpuscular hemoglobin (mass per erythrocyte) 29 pg 25-34 Automated erythrocyte mean corpuscular hemoglobin concentration measurement ( mass/volume) 33 g/dL 32-36 Automated erythrocyte distribution width ratio 14.6 % 10.0-14.5 Automated blood platelet count (count/volume) 212 10*3/uL 130-400 Automated blood platelet mean volume measurement 9.7 [foz_us] 7.4-10.4 Automated blood neutrophils/100 leukocytes 63 % 42-75 Automated blood lymphocytes/100 leukocytes 26 % 12-44 Blood monocytes/100 leukocytes 8 % 0-12 Automated blood eosinophils/100 leukocytes 3 % 0-10 Automated blood basophils/100 leukocytes 0 % 0-10 Blood neutrophils automated count (number/volume) 6.2 10*3 1.8-7.8 Blood lymphocytes automated count (number/volume) 2.6 10*3 1.0-4.0 Blood monocytes automated count (number/volume) 0.8 10*3 0.0-1.0 Automated eosinophil count 0.3 10*3/uL 0.0-0.3 Automated blood basophil count (count/volume) 0.0 10*3/uL 0.0-0.1 PT panel in platelet poor plasma by coagulation assay - 12/29/16 01:10 Prothrombin time (PT) in platelet poor plasma by coagulation assay 11.5 s 12.2-14.7 INR in platelet poor plasma or blood by coagulation assay 0.9 0.8-1.4 Activated partial thromboplastin time (aPTT) in platelet poor plasma bycoagulation assay - 12/29/16 01:10 Activated partial thromboplastin time (aPTT) in platelet poor plasma bycoagulation assay 22 s 24-35 Fibrin D-dimer FEU measurement in platelet poor plasma (mass/volume) - 01:10 Fibrin D-dimer FEU measurement in platelet poor plasma (mass/volume) 0.67 ug/mL 0.00-0.49 Comprehensive metabolic panel - 12/29/16 01:10 Serum or plasma sodium measurement (moles/volume) 141 mmol/L 135-145 Serum or plasma potassium measurement (moles/volume) 4.3 mmol/L 3.6-5.0 Serum or plasma chloride measurement (moles/volume) 106 mmol/L 98-107 Carbon dioxide 22 mmol/L 21-32 Serum or plasma anion gap determination (moles/volume) 13 mmol/L 5-14 Serum or plasma urea nitrogen measurement (mass/volume) 20 mg/dL 7-18 Serum or plasma creatinine measurement (mass/volume) 0.96 mg/dL 0.60-1.30 Serum or plasma urea nitrogen/creatinine mass ratio 21 NRG Serum or plasma creatinine measurement with calculation of estimated glomerular filtration rate 58 NRG Serum or plasma glucose measurement (mass/volume) 113 mg/dL 70-105 Serum or plasma calcium measurement (mass/volume) 9.3 mg/dL 8.5-10.1 Serum or plasma total bilirubin measurement (mass/volume) 0.7 mg/dL 0.1-1.0 Serum or plasma alkaline phosphatase measurement (enzymatic activity/volume) 79 U/L 40-136 Serum or plasma aspartate aminotransferase measurement (enzymatic activity/ volume) 22 U/L 5-34 Serum or plasma alanine aminotransferase measurement (enzymatic activity/volume ) 22 U/L 0-55 Serum or plasma protein measurement (mass/volume) 7.0 g/dL 6.4-8.2 Serum or plasma albumin measurement (mass/volume) 3.8 g/dL 3.2-4.5 Serum or plasma troponin i.cardiac measurement (mass/volume) - 12/29/16 01:10 Serum or plasma troponin i.cardiac measurement (mass/volume) < ng/ mL <0.30 Complete urinalysis with reflex to culture - 12/29/16 01:20 Urine color determination YELLOW NRG Urine clarity determination SLIGHTLY CLOUDY NRG Urine pH measurement by test strip 6 5-9 Specific gravity of urine by test strip 1.010 1.016- 1.022 Urine protein assay by test strip, semi-quantitative NEGATIVE NEGATIVE Urine glucose detection by automated test strip NEGATIVE NEGATIVE Erythrocytes detection in urine sediment by light microscopy 1+ NEGATIVE Urine ketones detection by automated test strip NEGATIVE NEGATIVE Urine nitrite detection by test strip POSITIVE NEGATIVE Urine total bilirubin detection by test strip NEGATIVE NEGATIVE Urine urobilinogen measurement by automated test strip (mass/volume) NORMAL NORMAL Urine leukocyte esterase detection by dipstick 3+ NEGATIVE Automated urine sediment erythrocyte count by microscopy (number/high power field) NONE NRG Automated urine sediment leukocyte count by microscopy (number/high power field ) [HPF] NRG Bacteria detection in urine sediment by light microscopy LARGE NRG Crystals detection in urine sediment by light microscopy NONE NRG Casts detection in urine sediment by light microscopy NONE NRG Mucus detection in urine sediment by light microscopy NEGATIVE NRG Complete urinalysis with reflex to culture YES NRG Bacterial urine culture - 12/29/16 01:20 Bacterial urine culture [id number] NRG COLONY COUNT 10,000/ML - 100,000/ML NRG FTX;REPORTABLE SENSITIVITY REPORTED AT 1000, 6-17 NR URINE CULTURE RESULTS PLUS [facility] Bacterial susceptibility panel - 12/29/16 01:20 Gentamicin susceptibility test by minimum inhibitory concentration < = NRG Trimethoprim/sulfamethoxazole susceptibility test by minimum inhibitoryconcentration <= NRG Ampicillin susceptibility test by minimum inhibitory concentration R NRG Tobramycin susceptibility test by minimum inhibitory concentration < = NRG Cefazolin susceptibility test by minimum inhibitory concentration < = NRG Ceftriaxone susceptibility test by minimum inhibitory concentration <= NRG Ampicillin/sulbactam susceptibility test by minimum inhibitory concentration 4 NRG Piperacillin/tazobactam susceptibility test by minimum inhibitory concentration <= NRG Ciprofloxacin susceptibility test by minimum inhibitory concentration <= NRG Meropenem susceptibility test by minimum inhibitory concentration < = NRG Nitrofurantoin susceptibility test by minimum inhibitory concentration <= NRG Aztreonam susceptibility test by minimum inhibitory concentration < = NRG Extended spectrum beta lactamase (ESBL) producing bacteria susceptibility test by minimum inhibitory concentration - [facility] Bacterial susceptibility panel - 12/29/16 01:20 Gentamicin susceptibility test by minimum inhibitory concentration < = NRG Trimethoprim/sulfamethoxazole susceptibility test by minimum inhibitoryconcentration <= NRG Ampicillin susceptibility test by minimum inhibitory concentration < = NRG Tobramycin susceptibility test by minimum inhibitory concentration < = NRG Cefazolin susceptibility test by minimum inhibitory concentration < = NRG Ceftriaxone susceptibility test by minimum inhibitory concentration <= NRG Ampicillin/sulbactam susceptibility test by minimum inhibitory concentration <= NRG Piperacillin/tazobactam susceptibility test by minimum inhibitory concentration <= NRG Ciprofloxacin susceptibility test by minimum inhibitory concentration <= NRG Meropenem susceptibility test by minimum inhibitory concentration < = NRG Nitrofurantoin susceptibility test by minimum inhibitory concentration 128 NRG Aztreonam susceptibility test by minimum inhibitory concentration < = NRG Encounters ACCT No. Visit Date/Time Discharge Status Pt. Type Provider Facility Loc./Unit Complaint [id number] 03/11/2018 08:17:00 03/11/2018 23:59:59 CLS Outpatient TABATHA DARNELL DOI [facility] RAD Z12.31 SCREENING MAMMO [id number] 01/06/2017 09:01:00 01/06/2017 23:59:59 CLS Outpatient LISA OVALLE FACCQAMAR FACP CCDS [facility] CARD CAD I25.10 [id number] 12/29/2016 02:40:00 12/29/2016 17:25:00 DIS Inpatient ANAY DARNELL DO [facility] 4TH DYSARTHRIA,UTI [id number] 12/22/2016 09:22:00 12/22/2016 23:59:59 CLS Outpatient TABATHA DARNELL DOI [facility] RAD Z12.31 [id number] 11/27/2016 11:29:00 11/27/2016 13:31:00 DIS Outpatient JACOBO VALENCIA MD [facility] ENDO HISTORY OF POLYPS [id number] 11/24/2016 05:46:00 11/24/2016 14:11:00 DIS Outpatient JACOBO VALENCIA MD [facility] PREOP HISTORY OF POLYPS [id number] 06/26/2016 15:31:00 06/26/2016 23:59:59 CLS Outpatient RASHAUN HORN [facility] LAB FEVER,LOW GRADE [id number] 06/04/2016 07:00:00 06/05/2016 10:45:00 DIS Outpatient JACOBO VALENCIA MD [facility] SDC INCISIONAL HERNIA [id number] 05/28/2016 13:11:00 05/28/2016 13:50:00 DIS Outpatient JACOBO VALENCIA MD [facility] PREOP INCISIONAL HERNIA [id number] 12/16/2015 09:30:00 12/16/2015 23:59:59 CLS Outpatient ANAY DARNELL DO [facility] RAD SCREENING [id number] 04/10/2015 02:40:00 04/10/2015 04:53:00 DIS Emergency RENÉ KATE MD [facility] ER POSS KIDNEY INFECTION [id number] 01/17/2015 07:48:00 01/17/2015 23:59:59 CLS Outpatient LISA OVALLE FACC, QAMAR POST CCDS [facility] CARD HTN,HLP, [id number] 01/09/2015 08:17:00 01/09/2015 23:59:59 CLS Outpatient JACOBO VALENCIA MD [facility] RAD REFLUX [id number] 12/13/2014 10:49:00 12/13/2014 23:59:59 CLS Outpatient DARNELL DO, ANAY [facility] RAD SCREENING [id number] 06/15/2014 12:07:00 06/15/2014 14:06:00 DIS Emergency LINSEY LOERA MEDIA BUYER [facility] ER FALL [id number] 03/05/2014 13:48:00 03/05/2014 23:59:59 CLS Outpatient RASHAUN HORNP [facility] CARD CAD HTN HYPLIPIDEMIA [id number] 12/12/2013 11:16:00 12/12/2013 23:59:59 CLS Outpatient DARNELL DO, ANAY [facility] RAD ROUTINE [id number] 06/21/2013 09:36:00 07/12/2013 14:38:00 DIS Outpatient CLEOPATRA TARIQ MD [facility] REHAB TOTAL HIP REPLACEMENT [id number] 12/06/2012 09:11:00 12/06/2012 23:59:59 CLS Outpatient DARNELL DO, ANAY [facility] RAD SCREENING [id number] 11/25/2012 12:58:00 11/29/2012 08:52:00 DIS Outpatient KIZZY RODRIGUEZ ROD DRAWER [facility] REHAB S/P L TKR [id number] 09/23/2012 11:20:00 Document Registration [id number] 09/14/2012 06:12:00 Document Registration [id number] 09/08/2012 09:54:00 Document Registration [id number] 09/01/2012 13:14:00 Document Registration [id number] 07/05/2012 14:15:00 Document Registration [id number] 06/18/2012 12:31:00 Document Registration [id number] 06/16/2012 21:37:00 Document Registration [id number] 04/10/2012 08:43:00 Document Registration [id number] 01/13/2012 10:41:00 Document Registration [id number] 11/04/2011 09:26:00 Document Registration [id number] 09/04/2011 13:44:00 Document Registration [id number] 05/14/2011 15:42:00 Document Registration [id number] 05/12/2011 13:31:00 Document Registration [id number] 03/09/2011 06:27:00 Document Registration [id number] 03/03/2011 08:07:00 Document Registration [id number] 01/27/2011 10:49:00 Document Registration [id number] 01/23/2011 07:28:00 Document Registration [id number] 01/19/2011 08:56:00 Document Registration [id number] 01/16/2011 21:07:00 Document Registration [id number] 08/22/2010 12:50:00 Document Registration [id number] 08/14/2010 05:45:00 Document Registration [id number] 08/07/2010 15:18:00 Document Registration [id number] 07/29/2010 07:52:00 Document Registration [id number] 01/15/2010 12:57:00 Document Registration [id number] 12/26/2009 08:42:00 Document Registration [id number] 04/10/2015 09:00:09 ACT Document Registration
[2018-10-02 23:45] VITALS: BP 153/107
[2018-10-03] VITALS (16 sets, daily range): BP systolic 113–154; BP diastolic 56–94
[2018-10-03] MEDS ORDERED: DILTIAZEM 125 MG/NS 100 ML IV SCH ×2 (00:15)
[2018-10-03] MEDS ORDERED: ONDANSETRON 4 MG/2 ML (SDV) Z0FRAN IV PRN (00:15)
[2018-10-03] MEDS: NS IV 1000 ML 1,000 ML IV SCH ×2 (00:19→15:25)
[2018-10-03] MEDS ORDERED: traZODone 50 MG (DESYREL) TAB PO PRN (01:45)
[2018-10-03 03:45] LABS: BASOPHILS % (AUTO) 0 % (0-10); EOSINOPHILS # (AUTO) 0.2 10^3/uL (0.0-0.3); EOSINOPHILS % (AUTO) 2 % (0-10); HEMATOCRIT 40 % (35-52); HEMOGLOBIN 13.1 G/DL (11.5-16.0); LYMPHOCYTES % (AUTO) 25 % (12-44); MEAN CORPUSCULAR HEMOGLOBIN 29 PG (25-34); MEAN CORPUSCULAR HGB CONC 33 G/DL (32-36); MEAN CORPUSCULAR VOLUME 88 FL (80-99); MEAN PLATELET VOLUME 9.4 FL (7.4-10.4); MONOCYTES # (AUTO) 0.6 X 10^3 (0.0-1.0); MONOCYTES % (AUTO) 8 % (0-12); NEUTROPHILS # (AUTO) 5.3 X 10^3 (1.8-7.8); NEUTROPHILS % (AUTO) 65 % (42-75); PLATELET COUNT 216 10^3/uL (130-400); RED CELL DISTRIBUTION WIDTH 14.3 % (10.0-14.5); WHITE BLOOD COUNT 8.2 10^3/uL (4.3-11.0)
[2018-10-03 04:04] LABS: BUN/CREATININE RATIO 24; CALCIUM 8.9 MG/DL (8.5-10.1); CARBON DIOXIDE 24 MMOL/L (21-32); CHLORIDE 109 MMOL/L (98-107); CREATININE SERUM 0.72 MG/DL (0.60-1.30); GFR ESTIMATED > 60; GLUCOSE 100 MG/DL (70-105); MAGNESIUM 1.7 MG/DL (1.8-2.4); PHOSPHORUS 4.8 MG/DL (2.3-4.7); POTASSIUM 3.6 MMOL/L (3.6-5.0); SODIUM 144 MMOL/L (135-145)
[2018-10-03 04:06] LABS: CHOLESTEROL 115 MG/DL (< 200); HDL CHOLESTEROL 42 MG/DL (40-60); TRIGLYCERIDES 70 MG/DL (<150); VLDL CHOLESTEROL 14 MG/DL (5-40)
[2018-10-03] MEDS: POTASSIUM CL 10MEQ/50ML IVPB 50 ML IV SCH ×2 (05:51→06:44)
[2018-10-03] MEDS: MAGNESIUM 1 GM/100 ML IVPB 100 ML IV SCH ×2 (05:52→06:44)
[2018-10-03] MEDS ORDERED: KCL 20 MEQ TAB (K-DUR) PO SCH (06:00)
[2018-10-03] MEDS ORDERED: MAGNESIUM 1 GM/100 ML IVPB 100 ML IV SCH (06:00)
[2018-10-03] MEDS ORDERED: POTASSIUM CL 10MEQ/50ML IVPB 50 ML IV SCH (06:00)
--- NOTE | 2018-10-03 07:01 | Pulmonary Consultation ---
History of Present Illness History of Present Illness Date of Consultation 10/03/18 06:56 Time Seen by Provider: 07:05 Date of Admission History of Present Illness 73yo with hx of recent bladder surgery at , new dx of Afib, and ADOLPH compliant with CPAP per patient and is managed by Dr. Cuevas. She presented to ED secondary to palpitations she was found to have Afib RVR in the ED she was admitted to ICU with Cardizem gtt and cardiology consultation. PFT from 2007 shows mild COPD. I am consulted for ICU management. Allergies and Home Medications Allergies Coded Allergies: cephalexin (Verified Allergy, Unknown, 10/02/18) Home Medications Albuterol 8.5 Gm Hfa.aer.ad, 2 PUFF IH Q4H PRN for SHORTNESS OF BREATH, ( Reported) Amlodipine Besylate/Benazepril 1 Each Capsule, 1 CAP PO DAILY, (Reported) Amoxicillin/Potassium Clav 1 Each Tablet, 1 EACH PO BID Prescribed by: ANAY DARNELL on 12/29/161533 Aspirin 81 Mg Tablet.dr, 81 MG PO DAILY, (Reported) Atorvastatin 20 Mg Tablet, 20 MG PO HS, (Reported) Cholecalciferol 5,000 Unit Capsule, 5,000 UNIT PO DAILY, (Reported) Estradiol 0.5 Mg Tablet, 0.5 MG PO DAILY, (Reported) Fluticasone Propionate 16 Gm Naspr, 2 SPRAY NS DAILY PRN for CONGESTION, ( Reported) Fluticasone/Salmeterol 1 Each Blst.w.dev, 1 PUFF INH BID PRN for SHORTNESS OF BREATH, (Reported) Hydrocodone Bit/Acetaminophen 1 Each Tablet, 1 TAB PO Q4H PRN for PAIN-MODERATE Prescribed by: ANAY DARNELL on 12/29/161533 Metoprolol Tartrate 100 Mg Tablet, 100 MG PO BID, (Reported) Montelukast Sodium 10 Mg Tab, 10 MG PO HS, (Reported) Naproxen Sodium 220 Mg Tablet, 220 MG PO Q8H PRN for PAIN-MILD, (Reported) Sertraline Hcl 100 Mg Tab, 150 MG PO DAILY, (Reported) TAKES 1 & 1/2 (100MG) TABLET Trazodone Hcl 50 Mg Tablet, 50 MG PO HS, (Reported) Triamterene/Hydrochlorothiazid 1 Each Tablet, 1 TAB PO DAILY, (Reported) Past Auboefv-Bafapk-Jhmwgz Hx Past Med/Social Hx: Reviewed Nursing Past Med/Soc Hx Patient Social History Alcohol Use: Denies Use Recreational Drug Use: No Smoking Status: Never a Smoker 2nd Hand Smoke Exposure: No Recent Foreign Travel: No Contact w/Someone Who Travel: No Recent Infectious Disease Expo: No Recent Hopitalizations: Yes (RELEASED TODAY FROM P/O BLADDER SX ON 09/30/18) Immunizations Up To Date Tetanus Booster (TDap): Less than 5yrs Date of Pneumonia Vaccine: May 04, 2017 Date of Influenza Vaccine: May 04, 2018 Seasonal Allergies Seasonal Allergies: No Past Medical History Surgeries: Yes (HIATAL HERNIA, L TKR, R HIP REPLACEMENT, BLADDER x8, BILAT FOOT SX) Bladder Surgery, Gallbladder, Hysterectomy, Joint Replacement, Orthopedic Respiratory: Yes Asthma, Sleep Apnea Currently Using CPAP: Yes Cardiac: Yes High Cholesterol, Hypertension Neurological: No Reproductive Disorders: No 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 Sexually Transmitted Disease: No Genitourinary: No Bladder Infection, UTI-Chronic Gastrointestinal: Yes Abdominal Hernia, Diverticulosis Musculoskeletal: Yes Arthritis Endocrine: No Diabetes, Non-Insulin dep Cataract Loss of Vision: Bilateral Hearing Impairment: Denies Cancer: No Psychosocial: Yes Depression Integumentary: No Blood Disorders: No Family Medical History Reviewed Nursing Family Hx Arthritis 19 MOTHER Cataracts 19 FATHER 19 MOTHER Colon cancer 19 FATHER Deafness or hearing loss 19 FATHER Dementia 19 FATHER FH: macular degeneration 19 MOTHER FH: prostate cancer 19 FATHER FH: skin cancer 19 FATHER Gout 19 MOTHER Hypertension 19 FATHER 19 MOTHER Myocardial infarction 19 FATHER 19 MOTHER Review of Systems Time Seen by Provider: 07:05 Constitutional: No: Fever, Chills, Sweats, Weakness, Malaise, Other Eyes: No: Pain, Vision change, Conjunctivae inflammation, Eyelid inflammation, Other, Redness ENT: No: Ear pain, Ear discharge, Nose pain, Nose discharge, Nose congestion, Mouth pain, Mouth swelling, Throat pain, Throat swelling, Other Respiratory: No: Cough, Dry, Shortness of breath, SOB with excertion, Wheezing , Hemoptysis, Pleuritic Pain, Sputum, Wheezing, Other Cardiovascular: Palpitations; No: Chest Pain, Orthopnea, Paroxysmal Noc. Dyspnea, Edema, Lt Headedness, Other Gastrointestinal: No: Nausea, Vomiting, Abdominal Pain, Diarrhea, Constipation , Melena, Hematochezia, Other Sepsis Event Evaluation Height, Weight, BMI Height: 5'7.00" Weight: 268lbs. 3.0oz. 121.556905iu; 42.0 BMI Method:Stated Exam Exam Vital Signs Date Time Temp Pulse Resp B/P (MAP) Pulse Ox O2 Delivery O2 Flow Rate FiO2 10/03/18 06:00 52 15 124/67 (86) 97 Nasal Cannula 2.00 10/03/18 05:00 60 20 123/56 (78) 96 Nasal Cannula 2.00 10/03/18 04:45 97.6 10/03/18 04:00 Room Air 10/03/18 04:00 49 16 140/65 (90) 97 Nasal Cannula 2.00 10/03/18 03:00 49 17 115/68 (84) 96 Nasal Cannula 2.00 10/03/18 02:00 54 17 142/70 (94) 97 Nasal Cannula 2.00 10/03/18 01:30 103 18 121/73 (89) 96 Room Air 10/03/18 01:00 79 19 135/86 (102) 93 Room Air 10/03/18 01:00 114 10/03/18 00:30 93 19 119/82 (94) 94 Room Air 10/03/18 00:15 100 21 113/94 (100) 95 Room Air 10/03/18 00:00 105 17 121/86 (98) 96 Room Air 10/03/18 00:00 Room Air 10/02/18 23:48 111 10/02/18 23:45 99.1 105 17 153/107 (122) 95 Room Air 10/02/18 23:40 Room Air 10/02/18 23:30 99.7 122 18 127/88 (101) 93 Room Air 10/02/18 20:50 99.7 147 19 160/107 (124) I & O 10/03/18 06:59 Intake Total 550 ml Output Total 500 ml Balance 50 ml Height & Weight Height: 5'7.00" Weight: 268lbs. 3.0oz. 121.734604lx; 42.0 BMI Method:Stated General Appearance: No Apparent Distress, WD/WN HEENT: PERRL/EOMI, Pharynx Normal Neck: Non Tender, Supple Respiratory: Lungs Clear, Normal Breath Sounds Cardiovascular: No Murmur, Irregularly Irregular, Tachycardia Capillary Refill: Less Than 3 Seconds Extremity: Normal Range of Motion, Non Tender Neurologic/Psychiatric: Alert, Oriented x3 Skin: Normal Color, Warm/Dry Results Lab Laboratory Tests 10/02/18 21:25 10/03/18 03:20 Assessment/Plan Assessment/Plan Afib RVR - now converted and is nicolette -Cardiology following -Cardizem gtt is now off Hypomag -replace ADOLHP -Have family bring in home CPAP if possible -Dr. Cuevas manages ALEXSANDER LARSEN DO Oct 03, 2018 07:01
--- NOTE | 2018-10-03 08:32 | Diagnostic Imaging Report ---
INDICATION: Atrial fibrillation. TIME OF EXAM: 3:44 AM Correlation is made with prior study from one day earlier. FINDINGS: The heart size is stable. Lungs are clear. No infiltrate or failure is seen. There is no effusion or pneumothorax. IMPRESSION: No acute abnormality is detected. Dictated by: Dictated on workstation # [id number]
--- NOTE | 2018-10-03 08:33 | Consultation-Cardiology ---
HPI-Cardiology Cardiology Consultation: Date of Consultation 10/03/18 Time Seen by a Provider: 08:30 Date of Admission 10-03-18 Attending Physician Breanna Broderick DO Admitting Physician Breanna Broderick DO Consulting Physician Елена Ang MD HPI: Chief Complaint: A-fib with RVR Ms. Archer is a 73 year old female admitted to ICU 9 from the ED with new onset a -fib with RVR. She reports she went to [facility] on Wednesday for Botox injection in her bladder d/t urinary incontinence. She states while in recovery at [facility] she began to feel her heart "flutter" she states they told her she was in a-fib. She states she converted back to SR. She reports she was started on Eliquis and given Flecainde to use as a "pill in the pocket method'. She reports she was discharge home from [facility] yesterday morning and advised to call our office for an appt and "heart monitoring patch". She states yesterday afternoon she began to have palpitations again. No assoc CP or dyspnea. She reports she did not take the Flecainide and instead came to the ED. She was found to be in a- fib with RVR. She has since converted back a SR. She does report some lightheadedness with position changes while she was in a-fib. She denies any LE swelling. Review of Systems-Cardiology Review of Systems Constitutional: No chills, No fever, No malaise Eyes: No vision change Ears/Nose/Throat: No epistaxis, No recent hearing loss, No ulcerations Respiratory: As described under HPI Cardiovascular: As described under HPI Gastrointestinal: No constipation, No diarrhea, No nausea, No vomiting Genitourinary: No dysuria, No hematuria; incontinence (chronic) Musculoskeletal: no symptoms reported Skin: No rash, No ulcerations Psychiatric/Neurological: No anxiety, No depression, No seizure, No focal weakness, No syncope Hematologic: No bleeding abnormalities All Other Systems Reviewed Negative Unless Noted: Yes PVM-Eujhud-Hrneln Hx Patient Social History Alcohol Use: Denies Use Recreational Drug Use: No Smoking Status: Never a Smoker 2nd Hand Smoke Exposure: No Recent Foreign Travel: No Recent Infectious Disease Expo: No Hospitalization with Isolation: Denies Immunizations Up To Date Tetanus Booster (TDap): Less than 5yrs Date of Pneumonia Vaccine: May 04, 2017 Date of Influenza Vaccine: May 04, 2018 Past Medical History PMH As described under Assessment. Family Medical History Family Medical History: She reports her mother and father both had CAD and HTN. Family History: Arthritis 19 MOTHER Cataracts 19 FATHER 19 MOTHER Colon cancer 19 FATHER Deafness or hearing loss 19 FATHER Dementia 19 FATHER FH: macular degeneration 19 MOTHER FH: prostate cancer 19 FATHER FH: skin cancer 19 FATHER Gout 19 MOTHER Hypertension 19 FATHER 19 MOTHER Myocardial infarction 19 FATHER 19 MOTHER Allergies and Home Medications Allergies Coded Allergies: cephalexin (Verified Allergy, Unknown, 10/02/18) Home Medications Acetaminophen 500 Mg Tablet, 500-1,000 MG PO Q6H PRN for PAIN-MILD, (Reported) Albuterol Sulfate 18 Gm Hfa.aer.ad, 2 PUFF INH Q4H PRN for SHORTNESS OF BREATH, (Reported) Amlodipine Besylate/Benazepril 1 Each Capsule, 1 CAP PO DAILY, (Reported) Apixaban 5 Mg Tablet, 5 MG PO BID, (Reported) Aspirin 81 Mg Tablet.dr, 81 MG PO DAILY, (Reported) Atorvastatin Calcium 20 Mg Tablet, 20 MG PO HS, (Reported) Cholecalciferol 5,000 Unit Capsule, 5,000 UNIT PO DAILY, (Reported) Diltiazem HCl 240 Mg Cap.er.24h, 240 MG PO DAILY Prescribed by: RASHAUN HORN on 10/03/18 1323 Estradiol 0.5 Mg Tablet, 0.5 MG PO DAILY, (Reported) Estradiol 42.5 Gm Cream.appl, VG SuTuTh, (Reported) Flecainide Acetate 100 Mg Tablet, 100 MG PO BID Prescribed by: RASHAUN HORN on 10/03/18 1323 Fluticasone Propionate 16 Gm [place].susp, 2 SPRAYS NS DAILY PRN for ALLERGIES, ( Reported) Fluticasone/Salmeterol 1 Each Blst.w.dev, 1 PUFF INH BID PRN for SHORTNESS OF BREATH, (Reported) Montelukast Sodium 10 Mg Tablet, 10 MG PO HS, (Reported) Sertraline HCl 100 Mg Tablet, 150 MG PO DAILY, (Reported) TAKES 1 & 1/2 (100MG) TABLET Trazodone HCl 50 Mg Tablet, 50 MG PO HS, (Reported) Triamterene/Hydrochlorothiazid 1 Each Tablet, 1 TAB PO DAILY, (Reported) Physical Exam-Cardiology Physical Exam Vital Signs/I&O Capillary Refill : Less Than 3 Seconds Constitutional: well-developed, well-nourished HEENT: PERRL, hearing is well preserved, oral hygience is good Neck: No carotid bruit; carotid pulses are 2 + bilaterally Respiratory: No accessory muscle use, No respiratory distress; chest expansion is symmetric, chest is bilaterally symmetric, lungs clear to auscultation Cardiovascular: regular rate-rhythm; No JVD; S1 and S2 Gastrointestinal: No tender; soft, round, audible bowel sounds Rectal: deferred Extremities: no lower extremity edema bilateral Neurologic/Psychiatric: grossly intact, power is 5/5 both on sides Skin: No rash, No ulcerations Data Review Labs Microbiology 10/03/18 MRSA Screen - Final, Complete MRSA not isolated ECG Impression ECG Initial ECG Impression: Atrial Fibrillation w/RVR A/P-Cardiology Assessment/Admission Diagnosis PAF with RVR - (first documented on 09-30-18 at [facility]) converted to SR OAC with Eliquis Minor coronary artery disease per cardiac catheterization of July 2006. MPI of 01/17/15 did not show ischemia or infarction, and LVEF was 54% History of bronchial asthma, currently controlled. Hyperlipidemia, being treated and being followed by Dr. Broderick. Glucose intolerance being managed by Dr. Broderick Hypertension, under fair control Elevated body mass index of approximately 42 Echocardiography of 01/06/17 showed LVEF 55 - 60%, mild MR & TR, PASP 35-40 mmHg Minimal carotid arterial disease on carotid u/s of 03/09/17 H/o mild pulmonary hypertension probable related to obesity-hypoventilation syndrome due to body habitus. Sleep apnea syndrome for which is being treated with C-PAP therapy. History of overactive bladder and urinary incontinence. S/p botox injection September 30, 2017 by her urologist in [facility] in [place]. Left knee and R hip replacement. RBBB, chronic Chronic urinary incontinence treated with Botox bladder injections at [facility], [place] Discussion and Recomendations PAF with RVR - currently converted to SR. We will change Flecainde to 100mg BID instead of the "pill in the pocket method" We will add Diltiazem 240mg daily Stop BB Continue OAC with Eliquis Replace Mag Monitor lab Continue with tx for sleep apnea with CPAP tx Further recs will be based on her hospital course We would like to thank medical services for this consult Clinical Quality Measures AMI/AHF: ASA po Prior to arrival: No DVT/VTE Risk/Contraindication: Risk Factor Score Per Nursin RFS Level Per Nursing on Admit: 3=High RASHAUN HORN Oct 03, 2018 08:33
--- NOTE | 2018-10-03 08:48 | NUR ---
Initial visit: Pt is [employer], Her Michele less than a year ago. Pt's daughter travelled from [place] to be with pt overnight. Pt also has children in this area. Pt demonstrates trust in God and gratitude for community mental health social worker's visit. She welcomed prayer.
[2018-10-03] MEDS ORDERED: FLECAINIDE 100 MG (TAMBOCOR) TAB PO SCH (09:00)
[2018-10-03] MEDS ORDERED: APIXABAN 5 MG (ELIQUIS) TABLET PO SCH ×2 (09:00→21:00)
[2018-10-03] MEDS ORDERED: DILTIAZEM 240 MG (CARDIZEM CD) CAP PO NR (09:00)
--- NOTE | 2018-10-03 10:56 | Short Stay Summary-Hospitalist ---
History of Present Illness HPI/Chief Complaint CC: AF w/RVR HPI: This is a 73-year-old white female clinic patient of mine for the past 15 years who presented to the ER after palpitations were experienced and was found to have atrial fibrillation with rapid ventricular response new onset. She just recently was discharged from on Wednesday and they noted an episode of atrial fibrillation at that time was told to take flecainide if she felt palpitations and placed her on Eliquis for stroke prophylaxis so she settled in at home but then began experiencing palpitations which was very scary for her so she presented to the ER placed in the ICU on Cardizem drip and attained conversion at 1 o'clock this morning. She regularly sees Dr. Ang on a regular basis. I checked meds and labs and reconciled all home meds. She reports that Dr. Ang intends to discharge her today so I already arranged for follow-up with me on 10/10/18. Source: patient, RN/MD Exam Limitations: no limitations Date Seen 10/03/18 Time Seen by a Provider: 10:00 Attending Physician Breanna Broderick DO PCP Breanna Broderick DO Referring Physician Date of Admission Oct 02, 2018 at 22:15 Home Medications & Allergies Home Medications Reviewed patient Home Medication Reconciliation performed by pharmacy medication reconciliations orthodontic lab technician and/or nursing. Patients Allergies have been reviewed. Allergies Allergies Coded Allergies cephalexin (Verified Allergy, Unknown, 10/02/18) Past Knyxorn-Ldoygd-Qvudma Hx Past Med/Social Hx: Reviewed Nursing Past Med/Soc Hx, Reviewed and Corrections made Patient Social History Marrital Status: Employed/Student: retired Alcohol Use: Denies Use Recreational Drug Use: No Smoking Status: Never a Smoker 2nd Hand Smoke Exposure: No Recent Foreign Travel: No Contact w/other who traveled: No Recent Hopitalizations: Yes (RELEASED TODAY FROM P/O BLADDER SX ON 09/30/18) Recent Infectious Disease Expo: No Immunizations Up To Date Tetanus Booster (TDap): Less than 5yrs Date of Pneumonia Vaccine: May 04, 2017 Date of Influenza Vaccine: May 04, 2018 Seasonal Allergies Seasonal Allergies: No Past Medical History Surgeries: Bladder Surgery, Gallbladder, Hysterectomy, Joint Replacement, Orthopedic Respiratory: Asthma, Sleep Apnea Currently Using CPAP: Yes Cardiac: High Cholesterol, Hypertension Reproductive: No Sexually Transmitted Disease: No Menopausal Genitourinary: Bladder Infection, UTI-Chronic Gastrointestinal: Abdominal Hernia, Diverticulosis Musculoskeletal: Arthritis Endocrine: Diabetes, Non-Insulin dep HEENT: Cataract Loss of Vision: Bilateral Hearing Impairment: Denies Psychosocial: Depression History of Blood Disorders: No Family History Reviewed Nursing Family Hx Arthritis 19 MOTHER Cataracts 19 FATHER 19 MOTHER Colon cancer 19 FATHER Deafness or hearing loss 19 FATHER Dementia 19 FATHER FH: macular degeneration 19 MOTHER FH: prostate cancer 19 FATHER FH: skin cancer 19 FATHER Gout 19 MOTHER Hypertension 19 FATHER 19 MOTHER Myocardial infarction 19 FATHER 19 MOTHER Review of Systems Constitutional: see HPI, weakness EENTM: no symptoms reported Respiratory: dyspnea on exertion Cardiovascular: palpitations Gastrointestinal: no symptoms reported Genitourinary: no symptoms reported Musculoskeletal: no symptoms reported Skin: no symptoms reported Psychiatric/Neurological: No Symptoms Reported All Other Systems Reviewed Negative Unless Noted: Yes Physical Exam Physical Exam Vital Signs Vital Signs - First Documented 10/02/18 10/02/18 10/03/18 20:50 23:30 02:00 Temp 99.7 Pulse 147 Resp 19 B/P (MAP) 160/107 (124) Pulse Ox 93 O2 Delivery Room Air O2 Flow Rate 2.00 Capillary Refill : Less Than 3 Seconds Height, Weight, BMI Height: 5'7.00" Weight: 270lbs. 3.0oz. 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 Short Stay Diagnosis Discharge Diagnosis-Short Stay Admission Diagnosis Atrial fibrillation with rapid ventricular response new onset Hypertension ADOLPH on CPAP Asthma Hyperlipidemia Obesity Depression Insomnia Final Discharge Diagnosis Atrial fibrillation with rapid ventricular response new onset Hypertension ADOLPH on CPAP Asthma Hyperlipidemia Obesity Depression Insomnia Conclusion Plan Await plan from cardiology Discharge if okay with cardiology after confirming all cardiac meds Follow-up with me Wednesday Diagnosis/Problems Diagnosis/Problems (1) Atrial fibrillation with rapid ventricular response Status: Acute Clinical Quality Measures AMI/AHF: ASA po Prior to arrival: No DVT/VTE Risk/Contraindication: Risk Factor Score Per Nursin RFS Level Per Nursing on Admit: 3=High BREANNA BRODERICK DO Oct 03, 2018 10:56
[2018-10-03] MEDS ORDERED: APIX5TAB PO (11:27)
[2018-10-03] MEDS ORDERED: METO50TA15 PO (11:27)
[2018-10-03] MEDS ORDERED: FLUT16SP22 NS (11:27)
[2018-10-03] MEDS ORDERED: ATOR20TA66 PO (11:27)
[2018-10-03] MEDS ORDERED: ESTR42.52 VG (11:27)
[2018-10-03] MEDS ORDERED: MONT10TA24 PO (11:27)
[2018-10-03] MEDS ORDERED: ACET-2267 PO (11:27)
[2018-10-03] MEDS ORDERED: SERT100T8 PO (11:27)
[2018-10-03] MEDS ORDERED: ALBU18HF2 INH (11:27)
[2018-10-03] MEDS ORDERED: TRAZ-189 PO (11:27)
[2018-10-03] MEDS ORDERED: FLEC150T15 PO (11:27)
[2018-10-03] MEDS ORDERED: AMLO1CAP9 PO (11:27)
[2018-10-03] MEDS ORDERED: ASPI-983 PO (11:27)
--- NOTE | 2018-10-03 11:32 | NUR ---
WENT OVER THE EXT MED HX WITH THE PATIENT. SHE WAS VERY KNOWLEDGEABLE ABOUT WHAT SHE TAKES AND THE RECENT CHANGES. I UPDATED THE MED REC TO WHAT SHE WAS TAKING PRIOR TO BEING ADMITTED TO VIA [facility] THIS VISIT. SHE TAKES ASPIRIN 81MG DAILY, VITAMIN D, AND TYLENOL PRN OTC. SHE STATES SHE PREVIOUSLY TOOK ALEVE BUT WAS TOLD AT TO STOP THAT AND ONLY TAKE TYLENOL.
[2018-10-03] MEDS ORDERED: NON-FORMULARY MEDICATION 1 EA EA (Fluticasone/Salmeterol (Advair 100-50 Diskus) 1 PUFF) INH PRN (11:45)
[2018-10-03] MEDS ORDERED: NON-FORMULARY MEDICATION 1 EA EA (Acetaminophen (Tylenol Extra Strength) 1,000 MG) PO PRN (11:45)
[2018-10-03] MEDS ORDERED: FLUTICASONE NASAL SPRAY (FLONASE) 16 GM BTL NS PRN (11:45)
[2018-10-03] MEDS ORDERED: RT-ALBUTEROL SULF 2.5 MG/3 ML PRE-MIX VIAL INH PRN (11:45)
--- NOTE | 2018-10-03 13:13 | Consultation-Cardiology ---
HPI-Cardiology Cardiology Consultation: Date of Consultation 10/03/18 Time Seen by a Provider: 09:15 Date of Admission Attending Physician Breanna Broderick DO Admitting Physician Breanna Broderick DO Consulting Physician QAMAR GONZALEZ MD, MA, FACP, [facility]ACC, [facility], [facility] HPI: Chief Complaint: Reason for consultation: A-fib with RVR HPI: Ms. Archer is a 73 year old female admitted to ICU 9 from the ED with new onset a -fib with RVR. She reports she went to [facility] on Wednesday for Botox injection in her bladder d/t urinary incontinence. She states while in recovery at [facility] she began to feel her heart "flutter" she states they told her she was in a-fib. She states she converted back to SR. She reports she was started on Eliquis and given Flecainde to use as a "pill in the pocket method'. She reports she was discharge home from [facility] yesterday morning and advised to call our office for an appt and "heart monitoring patch". She states yesterday afternoon she began to have palpitations again. No assoc CP or dyspnea. She reports she did not take the Flecainide and instead came to the ED. She was found to be in a- fib with RVR. She has since converted back a SR. She does report some lightheadedness with position changes while she was in a-fib. She denies any LE swelling. Review of Systems-Cardiology Review of Systems Constitutional: No chills, No fever, No malaise Eyes: No vision change Ears/Nose/Throat: No epistaxis, No recent hearing loss, No ulcerations Respiratory: As described under HPI Cardiovascular: As described under HPI Gastrointestinal: No constipation, No diarrhea, No nausea, No vomiting Genitourinary: No dysuria, No hematuria; incontinence (chronic) Musculoskeletal: no symptoms reported Skin: No rash, No ulcerations Psychiatric/Neurological: No anxiety, No depression, No seizure, No focal weakness, No syncope Hematologic: No bleeding abnormalities All Other Systems Reviewed Negative Unless Noted: Yes [id number]-Fcvpiz Hx Patient Social History Marrital Status: Employed/Student: retired Alcohol Use: Denies Use Recreational Drug Use: No Smoking Status: Never a Smoker 2nd Hand Smoke Exposure: No Recent Foreign Travel: No Recent Infectious Disease Expo: No Hospitalization with Isolation: Denies Immunizations Up To Date Tetanus Booster (TDap): Less than 5yrs Date of Pneumonia Vaccine: May 04, 2017 Date of Influenza Vaccine: May 04, 2018 Past Medical History PMH As described under Assessment. Family Medical History Family Medical History: She reports her mother and father both had CAD and HTN. Family History: Arthritis 19 MOTHER Cataracts 19 FATHER 19 MOTHER Colon cancer 19 FATHER Deafness or hearing loss 19 FATHER Dementia 19 FATHER FH: macular degeneration 19 MOTHER FH: prostate cancer 19 FATHER FH: skin cancer 19 FATHER Gout 19 MOTHER Hypertension 19 FATHER 19 MOTHER Myocardial infarction 19 FATHER 19 MOTHER Allergies and Home Medications Allergies Coded Allergies: cephalexin (Verified Allergy, Unknown, 10/02/18) Home Medications Acetaminophen 500 Mg Tablet, 500-1,000 MG PO Q6H PRN for PAIN-MILD, (Reported) Albuterol Sulfate 18 Gm Hfa.aer.ad, 2 PUFF INH Q4H PRN for SHORTNESS OF BREATH, (Reported) Amlodipine Besylate/Benazepril 1 Each Capsule, 1 CAP PO DAILY, (Reported) Apixaban 5 Mg Tablet, 5 MG PO BID, (Reported) Aspirin 81 Mg Tablet.dr, 81 MG PO DAILY, (Reported) Atorvastatin Calcium 20 Mg Tablet, 20 MG PO HS, (Reported) Cholecalciferol 5,000 Unit Capsule, 5,000 UNIT PO DAILY, (Reported) Estradiol 0.5 Mg Tablet, 0.5 MG PO DAILY, (Reported) Estradiol 42.5 Gm Cream.appl, VG SuTuTh, (Reported) Flecainide Acetate 150 Mg Tablet, 300 MG PO DAILY PRN for HEART FLUTTER, ( Reported) TAKES 2 (150MG) TABLETS Fluticasone Propionate 16 Gm Holland.susp, 2 SPRAYS NS DAILY PRN for ALLERGIES, ( Reported) Fluticasone/Salmeterol 1 Each Blst.w.dev, 1 PUFF INH BID PRN for SHORTNESS OF BREATH, (Reported) Metoprolol Tartrate 50 Mg Tablet, 50 MG PO BID, (Reported) Montelukast Sodium 10 Mg Tablet, 10 MG PO HS, (Reported) Sertraline HCl 100 Mg Tablet, 150 MG PO DAILY, (Reported) TAKES 1 & 1/2 (100MG) TABLET Trazodone HCl 50 Mg Tablet, 50 MG PO HS, (Reported) Triamterene/Hydrochlorothiazid 1 Each Tablet, 1 TAB PO DAILY, (Reported) Patient Home Medication List Home Medication List Reviewed: Yes Physical Exam-Cardiology Physical Exam Vital Signs/I&O 10/03/18 10/03/18 10/03/18 10/03/18 01:30 02:00 03:00 04:00 Pulse 103 54 49 49 Resp 18 17 17 16 B/P (MAP) 121/73 (89) 142/70 (94) 115/68 (84) 140/65 (90) Pulse Ox 96 97 96 97 O2 Delivery Room Air Nasal Cannula Nasal Cannula Nasal Cannula O2 Flow Rate 2.00 2.00 2.00 10/03/18 10/03/18 10/03/18 10/03/18 04:00 04:45 05:00 06:00 Temp 97.6 Pulse 60 52 Resp 20 15 B/P (MAP) 123/56 (78) 124/67 (86) Pulse Ox 96 97 O2 Delivery Room Air Nasal Cannula Nasal Cannula O2 Flow Rate 2.00 2.00 10/03/18 10/03/18 10/03/18 10/03/18 07:00 07:00 07:46 08:15 Temp 97.7 Pulse 59 54 58 Resp 18 B/P (MAP) 132/75 (94) 149/72 (97) Pulse Ox 96 96 O2 Delivery Room Air Room Air Room Air 10/03/18 10/03/18 10/03/18 10/03/18 09:00 10:00 11:00 12:00 Pulse 62 58 54 63 Resp 36 25 44 33 B/P (MAP) 150/65 (93) 154/74 (100) 127/80 (96) Pulse Ox 95 95 93 94 O2 Delivery Room Air Room Air Room Air Room Air 10/03/18 00:00 Intake Total 500 ml Balance 500 ml Capillary Refill : Less Than 3 Seconds Constitutional: well-developed, well-nourished HEENT: PERRL, hearing is well preserved, oral hygience is good Neck: No carotid bruit; carotid pulses are 2 + bilaterally Respiratory: No accessory muscle use, No respiratory distress; chest expansion is symmetric, chest is bilaterally symmetric, lungs clear to auscultation Cardiovascular: regular rate-rhythm; No JVD; S1 and S2 Gastrointestinal: No tender; soft, round, audible bowel sounds Rectal: deferred Extremities: no lower extremity edema bilateral Neurologic/Psychiatric: grossly intact, power is 5/5 both on sides Skin: No rash, No ulcerations Data Review Labs Laboratory Tests 10/02/18 21:25: White Blood Count 8.6, Red Blood Count 4.98, Hemoglobin 14.5, Hematocrit 43, Mean Corpuscular Volume 87, Mean Corpuscular Hemoglobin 29, Mean Corpuscular Hemoglobin Concent 34, Red Cell Distribution Width 14.3, Platelet Count 221, Mean Platelet Volume 9.5, Neutrophils (%) (Auto) 71, Lymphocytes (%) (Auto) 21, Monocytes (%) (Auto) 6, Eosinophils (%) (Auto) 2, Basophils (%) (Auto) 0, Neutrophils # (Auto) 6.1, Lymphocytes # (Auto) 1.8, Monocytes # (Auto) 0.5, Eosinophils # (Auto) 0.2, Basophils # (Auto) 0.0, Prothrombin Time 12.0L, INR Comment 0.9, Activated Partial Thromboplast Time 24, Sodium Level 142, Potassium Level 4.0, Chloride Level 106, Carbon Dioxide Level 22, Anion Gap 14, Blood Urea Nitrogen 20H, Creatinine 0.90, Estimat Glomerular Filtration Rate > 60, BUN/Creatinine Ratio 22, Glucose Level 189H, Calcium Level 9.3, Corrected Calcium 9.3, Magnesium Level 2.1, Total Bilirubin 0.5, Aspartate Amino Transf ( AST/SGOT) 30, Alanine Aminotransferase (ALT/SGPT) 19, Alkaline Phosphatase 90, Myoglobin 45.6, Troponin I < 0.028, Total Protein 7.1, Albumin 4.0 10/03/18 03:20: White Blood Count 8.2, Red Blood Count 4.56, Hemoglobin 13.1, Hematocrit 40, Mean Corpuscular Volume 88, Mean Corpuscular Hemoglobin 29, Mean Corpuscular Hemoglobin Concent 33, Red Cell Distribution Width 14.3, Platelet Count 216, Mean Platelet Volume 9.4, Neutrophils (%) (Auto) 65, Lymphocytes (%) (Auto) 25, Monocytes (%) (Auto) 8, Eosinophils (%) (Auto) 2, Basophils (%) (Auto) 0, Neutrophils # (Auto) 5.3, Lymphocytes # (Auto) 2.0, Monocytes # (Auto) 0.6, Eosinophils # (Auto) 0.2, Basophils # (Auto) 0.0, Sodium Level 144, Potassium Level 3.6, Chloride Level 109H, Carbon Dioxide Level 24, Anion Gap 11, Blood Urea Nitrogen 17, Creatinine 0.72, Estimat Glomerular Filtration Rate > 60, BUN/ Creatinine Ratio 24, Glucose Level 100, Calcium Level 8.9, Magnesium Level 1.7L , Phosphorus Level 4.8H, Triglycerides Level 70, Cholesterol Level 115, LDL Cholesterol Direct 57, VLDL Cholesterol 14, HDL Cholesterol 42 A/P-Cardiology Assessment/Admission Diagnosis PAF with RVR - (first documented on 09-30-18 at [facility]) converted to SR OAC with Eliquis Minor coronary artery disease per cardiac catheterization of July 2006. MPI of 01/17/15 did not show ischemia or infarction, and LVEF was 54% History of bronchial asthma, currently controlled. Hyperlipidemia, being treated and being followed by Dr. Broderick. Glucose intolerance being managed by Dr. Broderick Hypertension, under fair control Elevated body mass index of approximately 42 Echocardiography of 01/06/17 showed LVEF 55 - 60%, mild MR & TR, PASP 35-40 mmHg Minimal carotid arterial disease on carotid u/s of 03/09/17 H/o mild pulmonary hypertension probable related to obesity-hypoventilation syndrome due to body habitus. Sleep apnea syndrome for which is being treated with C-PAP therapy. History of overactive bladder and urinary incontinence. S/p botox injection September 30, 2017 by her urologist in [facility] in [place]. Left knee and R hip replacement. RBBB, chronic Chronic urinary incontinence treated with Botox bladder injections at [facility], Discussion and Recomendations * Long-acting dilt for vent rate control (d/c beta-coy) * Flecainide for A Fib prevention * Eliquis for stroke prophylaxis * I had a long and detailed discussion with her regarding her new diagnosis and our treatment plan and treatment options * Close outpt f/u is advised Clinical Quality Measures AMI/AHF: ASA po Prior to arrival: No DVT/VTE Risk/Contraindication: Risk Factor Score Per Nursin RFS Level Per Nursing on Admit: 3=High QAMAR GONZALEZ MD [facility] CCDS Oct 03, 2018 13:13
[2018-10-03] MEDS ORDERED: FLEC100T PO (13:23)
[2018-10-03] MEDS ORDERED: DILT240C PO (13:23)
[2018-10-03] MEDS ORDERED: ATORVASTATIN 20 MG (LIPITOR) TABLET PO SCH (21:00)
[2018-10-03] MEDS ORDERED: traZODone 50 MG (DESYREL) TAB PO SCH (21:00)
[2018-10-03] MEDS ORDERED: MONTELUKAST 10 MG (SINGULAIR) TAB PO SCH (21:00)
[2018-10-04] MEDS ORDERED: VITAMIN D3 5,000 UNITS (CHOLECALCIFEROL ) CAPSULE PO SCH (09:00)
[2018-10-04] MEDS ORDERED: ASPIRIN E.C. 81 MG (ECOTRIN) TAB PO SCH (09:00)
[2018-10-04] MEDS ORDERED: SERTRALINE 100 MG (ZOLOFT) TAB PO SCH (09:00)
[2018-10-04] MEDS ORDERED: NON-FORMULARY MEDICATION 1 EA EA (Estradiol (Estradiol Tablet) 0.5 MG) PO SCH (09:00)
[2018-10-04] MEDS ORDERED: ESTRADIOL VAGINAL CREAM 42.5 GM (ESTRACE) VG SCH (11:45)
== END 2018-10-03 15:42 | disposition home or self-care (01) | DRG 309 ==
LOC: EDUNIT# 20:38 → ER 20:40 → ICU 22:15
PROVIDERS: ADMIT Internal Medicine; ATTEND Internal Medicine
DX: I48.0 Paroxysmal atrial fibrillation (principal); E83.42 Hypomagnesemia; E66.2 Morbid (severe) obesity with alveolar hypoventilation; Z68.41 Body mass index [BMI] 40.0-44.9, adult; J45.909 Unspecified asthma, uncomplicated; I10 Essential (primary) hypertension; E78.5 Hyperlipidemia, unspecified; E11.9 Type 2 diabetes mellitus without complications; F32.9 Major depressive disorder, single episode, unspecified; I25.10 Atherosclerotic heart disease of native coronary artery without angina pectoris; I08.1 Rheumatic disorders of both mitral and tricuspid valves; I45.10 Unspecified right bundle-branch block; I27.20 Pulmonary hypertension, unspecified
CPT/HCPCS: 36415; 71045; 80048; 80053; 80061; 83735; 83874; 84100; 84484; 85025; 85610; 85730; 87081; 93005; 93041

== ENCOUNTER 2018-10-09 21:38 | Emergency (ER) | payer MEDICARE ==
[~2018-10-09] VITALS: Ht 170.2 cm; Wt 122.6 kg
[~2018-10-09 21:38] MED LIST changes: +ACET-2267 PO; +ALBU18HF2 INH; +AMLO1CAP9 PO; +APIX5TAB PO; +ASPI-983 PO; +DILT240C PO; +ESTR42.52 VG; +FLEC100T PO; +FLEC150T15 PO; +METO50TA15 PO; +MONT10TA24 PO; +SERT100T8 PO; +TRAZ-189 PO
--- OUTSIDE RECORDS SUMMARY | 2018-10-09 21:44 | XMS REPORT | Clinical Summary ---
Author Author [facility] Organization [facility] Address Unknown Phone Unavailable Care Team Providers Care Print Finisher Name Role Phone Alan Ramachandran MD Unavailable Shefali Herring MD Unavailable Breanna Broderick DO PCP Jody Salazar RN Unavailable Unavailable Jass Loving MD Unavailable Carla Bernal MD Unavailable Unavailable Louise Knott MD Unavailable [place] RN Unavailable Unavailable Breanna Lazo MD Unavailable Unavailable Marjorie Wilburn RN Unavailable Unavailable Gumaro Lynne MD Unavailable Glory Ford RN Unavailable Unavailable FrostburgQuintin Canas RN Unavailable Unavailable Adeel Avila MD Unavailable Source Comments Some departments are not documenting in the electronic medical record. If you do not see the information that you expected, contact Release of Information in the Health Information Management department at [phone] for further assistance in locating additional records.[facility] Allergies No Known Allergies Medications End Date [...] a 24 hour period. Call your field supervisor seed production if you have to use this medication. [...] a 24 hour period. Call your field supervisor seed production if you have to use this medication. Active Problems Problem Noted Date Coronary artery disease 10/02/2018 Hypertension 10/02/2018 Depression (disease) 10/02/2018 Hyperlipidemia 10/02/2018 Obstructive sleep apnea on CPAP 10/02/2018 Asthma 10/02/2018 Paroxysmal atrial fibrillation 10/01/2018 Morbid obesity 10/01/2018 Urge urinary incontinence 10/11/2017 Overview: Added automatically from request for surgery [id number] Urinary urgency 04/23/2017 Overview: Added automatically from request for surgery [id number] Urge incontinence 07/28/2012 Overview: Anticholinergic refractory urgency [...] botox 04/21/2016 - 150u botox 07/13/2016 - [id number]; not performing timed and double voiding Last [...] Inhaled Oxygen - Concentration 10/01/2018 2:00 PM WINDOW DRESSER Weight 121.6 kg (268 lb) 10/01/2018 2:00 PM WINDOW DRESSER Height 170.2 cm (5' 7") 10/01/2018 2:00 PM WINDOW DRESSER Body Mass Index 41.97 Plan of Treatment Care Team Description Date Type Specialty Shefali Herring MD [address] [facility] [address] [place] [address] [phone] Urge incontinence 03/31/2019 Hospital Encounter Shefali Herring MD [address] [facility] [address] [place] [address] [phone] CYSTOURETHROSCOPY WITH INJECTION FOR CHEMODENERVATION OF THE BLADDER (BOTOX 150 UNITS) 03/31/2019 Surgery Health Maintenance Due Date Last [...] + DOPPLER Routine 10/01/2018 ECHOCARDIOGRAM 2:00 PM WINDOW DRESSER THYROID STIMULATING Add on 10/01/2018 HORMONE-TSH 4:29 AM WINDOW DRESSER HEMOGLOBIN A1C Add on 10/01/2018 4:29 AM WINDOW DRESSER LIPID PROFILE Routine 10/01/2018 4:29 AM WINDOW DRESSER MAGNESIUM Routine 10/01/2018 4:29 AM WINDOW DRESSER COMPREHENSIVE METABOLIC Routine 10/01/2018 PANEL 4:29 AM WINDOW DRESSER CBC AND DIFF Routine 10/01/2018 4:29 AM WINDOW DRESSER CBC STAT 09/30/2018 6:10 PM WINDOW DRESSER PROTIME INR (PT) STAT 09/30/2018 6:10 PM WINDOW DRESSER TROPONIN-I STAT 09/30/2018 6:10 PM WINDOW DRESSER ECG 12-LEAD Routine 09/30/2018 4:42 PM WINDOW DRESSER TROPONIN-I 09/30/2018 2:13 PM WINDOW DRESSER PHOSPHORUS STAT 09/30/2018 2:13 PM WINDOW DRESSER MAGNESIUM STAT 09/30/2018 2:13 PM WINDOW DRESSER BASIC METABOLIC PANEL STAT 09/30/2018 2:13 PM WINDOW DRESSER CHEST SINGLE VIEW STAT 09/30/2018 2:11 PM WINDOW DRESSER CYSTOURETHROSCOPY WITH 09/30/2018 Urge urinary incontinence INJECTION FOR 10:25 AM WINDOW DRESSER CHEMODENERVATION OF THE BLADDER Special Needs 09/13 PER CHANGE FORM CASE MOVED FROM 09/27 TO 09/30 TO FOLLOW - CSesar DEXTER RN ([id number]) TELEMETRY STRIPS-SCAN 09/30/2018 12:00 AM WINDOW DRESSER TELEMETRY STRIPS-SCAN 09/30/2018 12:00 AM WINDOW DRESSER TELEMETRY STRIPS-SCAN 09/30/2018 12:00 AM WINDOW DRESSER ECG-SCAN 09/30/2018 12:00 AM WINDOW DRESSER ECG-SCAN 09/30/2018 12:00 AM WINDOW DRESSER from Last 3 Months Results * CBC [...] MAIN LAB Specimen Blood Performing Organization Address City/[facility]/Zipcode Phone Number MAIN LAB [address] [place] [address] * MAGNESIUM (10/02/2018 5:49 AM CDT) Only the most recent of 3 results within the time period is included. Magnesium 1.8 1.6 - 2.6 mg/dL [facility] MAIN LAB Specimen Blood Performing Organization Address City/[facility] Phone Number MA[facility] LAB [address] [place] [address] * COMPREHENSIVE METABOLIC PANEL (10/02/2018 5:49 AM [...] Blood Performing Organization Address City/State/Zipcode Phone Number [facility] [address] [place] [address] * 2-D + DOPPLER ECHOCARDIOGRAM (10/01/2018 2:00 PM WINDOW DRESSER) IVS 0.64 0.6 - 0.9 cm OTHER [...] 34 OTHER OUTSIDE LAB Cardiology Ultrasound Siemens [id number] OTHER OUTSIDE LAB Machine Left Ventricle Mass [...] No Pericardial Effusion PASP=37mmHg Performing Organization Address City/[facility]/[place] Phone Number OTHER OUTSIDE LAB * THYROID STIMULATING HORMONE-TSH (10/01/2018 4:29 AM WINDOW DRESSER) TSH 0.970 0.35 - 5.00 MCU/ML [facility] MAIN LAB Performing Organization Address City/[facility]/[place] Phone Number [facility] MAIN LAB [address] [place] [phone] * HEMOGLOBIN A1C (10/01/2018 4:29 AM WINDOW DRESSER) Hemoglobin A1C 6.0 4.0 - 6.0 % [facility] MAIN [facility] Comment: The ADA recommends that most patients with type 1 and type 2 diabetes maintain an A1c level <7%. Performing Organization Address City/[facility]/Zipcode Phone Number MAIN LAB [address] [place] [address] * LIPID PROFILE (10/01/2018 4:29 AM WINDOW DRESSER) Cholesterol 123 <200 MG/DL [facility] MAIN LAB [...] 130 mg/dL. Specimen Blood Performing Organization Address [facility] Phone Number MAIN LAB [address] [place] [phone] * TROPONIN-I (09/30/2018 6:10 PM WINDOW DRESSER) Only the most recent of 2 results within the time period is included. Troponin-I 0.01 0.0 - 0.05 NG/ML MAIN LAB Specimen Blood Performing Organization Address [facility] Phone Number MAIN LAB [address] [place] [phone] * PROTIME INR (PT) (09/30/2018 6:10 PM WINDOW DRESSER) INR 1.0 0.8 - 1.2 MAIN LAB Specimen Blood Performing Organization Address [facility] Phone Number MAIN LAB [address] [place] [address] * CBC (09/30/2018 6:10 PM WINDOW DRESSER) White Blood Cells 10.2 4.5 - 11.0 K/UL MAIN LAB RBC 5.06 (H) 4.0 - 5.0 M/UL [facility] Hemoglobin 15.1 (H) 12.0 - 15.0 [...] MAIN LAB Specimen Blood Performing Organization Address [facility] Phone Number MAIN LAB [address] [place] [address] * PHOSPHORUS (09/30/2018 2:13 PM WINDOW DRESSER) Phosphorus 3.4Comment: NOTE NEW REFERENCE 2.0 - 4.5 MG/DL MAIN LAB RANGES Specimen Blood Performing Organization Address [facility] Phone Number MAIN LAB [address] [place] [address] * BASIC METABOLIC PANEL (09/30/2018 2:13 PM WINDOW DRESSER) Sodium 142 137 - 147 MMOL/L [facility] [...] Organization Address City/State/Zipcode Phone Number MAIN LAB [address] [place] [address] * CHEST SINGLE VIEW (09/30/2018 2:11 PM WINDOW DRESSER) Impressions Performed At Poor depth of inspiration [...] Interface, Radiant Results - 09/30/2018 2:15 PM WINDOW DRESSER Single view of the chest Clinical history: [...] City/State/Zipcode Phone Number [facility] RAD RESULTS * TELEMETRY STRIPS-SCAN (09/30/2018 12:00 AM WINDOW DRESSER) Narrative Performed At Ordered by an unspecified provider. * TELEMETRY STRIPS-SCAN (09/30/2018 12:00 AM WINDOW DRESSER) Narrative Performed At Ordered by an unspecified provider. * TELEMETRY STRIPS-SCAN (09/30/2018 12:00 AM WINDOW DRESSER) Narrative Performed At Ordered by an unspecified provider. * ECG-SCAN (09/30/2018 12:00 AM WINDOW DRESSER) Narrative Performed At Ordered by an unspecified provider. * ECG-SCAN (09/30/2018 12:00 AM WINDOW DRESSER) Narrative Performed At Ordered by an unspecified provider. from Last 3 Months Insurance Payer Benefit Subscriber ID Type Phone Address Plan / Group MEDICARE MEDICARE xxxxxxxxxx Medicare PART A AND B [facility] AARP xxxxxxxxxxx PPO Advance Directives Patient has advance care planning documents, and code status on file. For more information, please contact: [facility] [address] [place] [address] Date Inactivated Comments Code Status Date Activated 10/02/2018 3:17 PM Full Code 09/30/2018 4:42 PM Provider has discussed Code Status Yes w/Patient or Family?
--- OUTSIDE RECORDS SUMMARY | 2018-10-09 21:45 | XMS REPORT | Encounter Summary ---
Author Author [facility] Organization [facility] Address Unknown Phone Unavailable Care Team Providers Care Internet Retailer Name Role Phone Alan Ramachandran MD Unavailable [...] incontinence Urge urinary incontinence [N39.41] P rocedures RI CYSTOURETHROSCOPY INJ CHEMODENERVATION BLADDER CYSTOSCOPY WITH BOTOX INJECTION (150 UNITS) Encounter Details Care Team Description Date Type Department Shefali Herring MD [address] [facility] [address] [place] [address] [phone] Gumaro Dietrich MD [address] [place] [address] [phone] Inocente Kate MD [address] [place] [address] [phone] Atrial fibrillation with rapid ventricular response (HCC) 09/30/2018 Hospital HC[facility] - Encounter [id number] 10/02/2018 [place] [address] Social History Date Tobacco Use Types Packs/Day [...] Inhaled Oxygen - Concentration 10/01/2018 2:00 PM [employer]WORK[employer] Weight 121.6 kg (268 lb) 10/01/2018 2:00 PM [employer] Height 170.2 cm (5' 7") 10/01/2018 2:00 PM [employer] Body Mass Index 41.97 in this encounter [...] impairment: No as of this encounter Discharge Summaries * Breanna Houston - 10/02/2018 1:01 PM CDT Physician Discharge Summary Name: Mame Archer Date Of : 1945 Age: 73 years Admit date: 09/30/2018 Discharge date: 10/02/2018 Attending Physician: Inocente Kate MD Service: [facility] - 7052 Physician Summary completed by: Inocente Kate MD Reason for hospitalization: post-procedural atrial fibrillation with rapid ventricular response Significant PMH: Past Medical History: Diagnosis Date Arthritis Asthma Coronary artery disease Depression (disease) Hyperlipidemia Hypertension Incontinence Obstructive sleep apnea on CPAP Urinary tract infection Allergies: Patient has no known allergies. Admission Physical Exam notable for: GEN: Alert and oriented x3 (person/place/time). In [...] PSYCH: Mood euthymic. Affect congruent with mood. Admission Lab/Radiology studies notable for: Sodium 142 Potassium 4.2 Chloride 108 BUN 17 Creatinine 0.76 Mg 1.9 Ref. Range 10/01/2018 04:29 Cholesterol Latest Ref Range: <200 MG/DL 123 Triglycerides Latest Ref Range: <150 MG/DL 155 (H) HDL Latest Ref Range: >40 MG/DL 37 (L) LDL Latest Ref Range: <100 MG/DL 62 VLDL Latest Units: MG/DL 31 Non HDL Cholesterol Latest Units: MG/DL 86 Single view chest x-ray performed on 09/30/2018 with poor depth of inspiration with bibasilar atelectasis. 10/01/18 - 2-D + DOPPLER ECHOCARDIOGRAM Location Performed: [facility] Status: Final result Procedure Ordered By: Megan Cutler MD [phone] Referring Provider: Interpreting Physician: Aram Rojas MD Fellow: Location of Interp: [facility] Sales Coach: Lindsey Diaz Machine: Earnix [id number] Indications: Atrial fibrillation Study done at patient bedside Definity contrast was given to enhance imaging. Vitals Height Weight BSA (Calculated) BP Comments 170.2 cm (67") 121.6 kg (268 lb) 2.4 135/61 Interpretation Summary LVEF=55% Moderate LV Dilatation Mild RV Dilatation On Some Contrast Views Moderate Left Atrial Dilatation Mild Mitral Valve Regurgitation No Pericardial Effusion PASP=37mmHg Echocardiographic Findings Left Ventricle Normal wall thickness and mass. Moderately dilated. Normal ejection fraction. Normal left ventricular diastolic function. Normal left atrial pressure. Right Ventricle Normal wall thickness and septal motion. Mildly dilated. Mildly reduced ejection fraction. Left Atrium Moderately dilated. Right Atrium Normal size. IVC/SVC Normal central venous pressure (0-5 mm Hg). Mitral Valve Normal valve structure. No stenosis. Mild regurgitation. Tricuspid Valve The tricuspid valve was not well seen. No stenosis. Mild regurgitation. Aortic Valve Normal valve structure. No stenosis. No regurgitation. Pulmonary The pulmonic valve was not well seen. Normal valve structure. No stenosis. No regurgitation. Aorta Normal aorta. Pericardium Pericardium is normal. No pericardial effusion. Left Heart 2D Measurements (Normal Ranges) EF 55 % LVIDD 6.40 cm (Range: 3.8 - 5.2) LVIDS 3.92 cm (Range: 2.2 - 3.5) IVS 0.64 cm (Range: 0.6 - 0.9) LV PW 0.70 cm (Range: 0.6 - 0.9) LA Size 4.46 cm (Range: 2.7 - 3.8) Right Heart 2D & M-Mode Measurements (Normal Ranges) (Range) RV Basal Julita 5.52 cm (2.5 - 4.1) RV Mid Julita 3.97 cm (1.9 - 3.5) RAA 22.64 cm2 (<18) M-Mode TAPSE 3.82 cm (>1.7) Left Heart 2D Addnl Measurements (Normal Ranges) LV Systolic Vol 78.0 mL (Range: 14 - 42) LV Systolic Vol Index 32.50 mL (Range: 8 - 24) LV Diastolic Vol 208.0 mL (Range: 46 - 106) LV Diastolic Vol Index 86.67 mL (Range: 29 - 61) LA Vol 86.68 mL (Range: 22 - 52) LA Vol Index 36.12 (Range: 16 - 34) LV Mass 168.28 g (Range: 66 - 150) LV Mass Index 70.12 g/m2 (Range: 44 - 88) RWT 0.22 (Range: <=0.42) Aortic Root Measurements (Normal Ranges) Sinus 2.77 cm (Range: 2.4 - 3.6) Doppler (Spectral and Color Flow) Estimated Peak Systolic PA Pressure 37 mmHg Aortic valve peak velocity 1.86 m/s Signed at 1538 [employer] Brief Hospital Course: The patient was admitted and the following issues were addressed during this hospitalization: (with pertinent details). Patient was admitted following urologic procedure (botox injection for urge incontinence) for atrial fibrillation with rapid ventricular response. Patient symptomatic with palpitations. She had a similar episode of symptomatic afib following another procedure that resolved. Not on anticoagulation currently. She was started on IV diltiazem for rate control and lovenox for anticoagulation (chadsvasc score of 3). Cardiology was consulted. She converted to sinus rhythm and then became bradycardic to the 40s-50s. She was asymptomatic. She was taking metoprolol 100mg BID prior to admission, this was restarted but decreased to 50mg BID due to bradycardia and she tolerated this well. She was transitioned to Eliquis. We recommended that she follow up with her primary microsoft windows engineer and have a zio patch or some sort of longer-term atrial fibrillation monitoring in order to determine whether she needed mcfp anticoagulation or if afib was truly ollie -procedural and limited. Cardiology gave her flecainide for abortive therapy if symptoms recur. Condition at Discharge: Stable Discharge Diagnoses: Hospital Problems Active Problems Paroxysmal atrial fibrillation (HCC) Morbid obesity (HCC) Coronary artery disease Hypertension Depression (disease) Hyperlipidemia Obstructive sleep apnea on CPAP Asthma Resolved Problems * (Principal) RESOLVED: Atrial fibrillation with rapid ventricular response ( HCC) Surgical Procedures: None Significant Diagnostic Studies and Procedures: noted in brief hospital course Consults: Cardiology Patient Disposition: Home Patient instructions/medications: Activity as Tolerated It is important to keep increasing your activity level after you leave the hospital. Moving around can help prevent blood clots, lung infection (pneumonia ) and other problems. Gradually increasing the number of times you are up moving around will help you return to your normal activity level more quickly. Continue to increase the number of times you are up to the chair and walking daily to return to your normal activity level. Begin to work toward your normal activity level at discharge Report These Signs and Symptoms Please contact your doctor if you have any of the following symptoms: uncontrolled pain, difficulty breathing or chest pain. Questions About Your Stay For questions or concerns regarding your hospital stay. Call [phone] Discharging attending physician: INOCENTE KATE [[id number]] Regular Diet You have no dietary restriction. Please continue with a healthy balanced diet. Current Discharge Medication List START taking these medications Details apixaban (ELIQUIS) 5 mg tablet Take one tablet by mouth twice daily. Qty: 60 tablet, Refills: 1 PRESCRIPTION TYPE: Normal flecainide (TAMBOCOR) 150 mg tablet Take two tablets by mouth daily as needed. For palpitations and symptoms of atrial fibrillation. Do not take more than once in a 24 hour period. Call your microsoft windows engineer if you have to use this medication. Qty: 6 tablet, Refills: 0 PRESCRIPTION TYPE: Normal CONTINUE these medications which have been CHANGED or REFILLED Details metoprolol tartrate (LOPRESSOR) 50 mg tablet Take one tablet by mouth twice daily. Qty: 180 tablet, Refills: 3 PRESCRIPTION TYPE: Normal CONTINUE these medications which have NOT CHANGED Details albuterol (VENTOLIN HFA, PROAIR HFA, PROVENTIL HFA) 90 mcg/actuation inhaler Inhale 1-2 Puffs by mouth into the lungs every 6 hours as needed for Wheezing or Shortness of Breath. Shake well before use. PRESCRIPTION TYPE: Historical Med amlodipine-benazepril (LOTREL) 10-20 mg capsule Take 1 capsule by mouth daily. PRESCRIPTION TYPE: Historical Med aspirin EC 81 mg tablet Take 81 mg by mouth daily. Take with food. PRESCRIPTION TYPE: Historical Med atorvastatin (LIPITOR) 20 mg tablet Take 20 mg by mouth nightly as needed. PRESCRIPTION TYPE: Historical Med cholecalciferol(+) (VITAMIN D-3) 5,000 unit tablet Take 5,000 Units by mouth daily. PRESCRIPTION TYPE: Historical Med estradiol (ESTRACE) 0.01 % (0.1 mg/g) vaginal cream INSERT OR APPLY TO VAGINAL AREA DAILY FOR SEVEN DAYS THEN TWICE A WEEK Qty: 1 Container, Refills: 11 PRESCRIPTION TYPE: Normal estradiol (ESTRACE) 0.5 mg tablet Take 0.5 mg by mouth daily. PRESCRIPTION TYPE: Historical Med fluticasone (FLONASE) 50 mcg/actuation nasal spray Apply 2 sprays to each nostril as directed daily as needed. Shake bottle gently before using. PRESCRIPTION TYPE: Historical Med FLUTICASONE/SALMETEROL (ADVAIR DISKUS IN) Inhale 1 Puff by mouth into the lungs as Needed. PRESCRIPTION TYPE: Historical Med montelukast (SINGULAIR) 10 mg tablet Take 10 mg by mouth at bedtime daily. PRESCRIPTION TYPE: Historical Med sertraline (ZOLOFT) 100 mg tablet Take 150 mg by mouth every morning. PRESCRIPTION TYPE: Historical Med traZODone (DESYREL) 50 mg tablet Take 50 mg by mouth at bedtime daily. PRESCRIPTION TYPE: Historical Med triamterene/hydrochlorothiazide (MAXZIDE) 37.5/25 mg tablet Take 1 Tab by mouth every morning. PRESCRIPTION TYPE: Historical Med Scheduled appointments: Please schedule a follow up appointment with your primary microsoft windows engineer in the next 2-4 weeks. Pending items needing follow up: 1. Ambulatory cardiac monitoring 2. Determination of anticoagulation timeline Signed: Inocente Kate MD 10/05/2018 cc: Primary Care Physician: Breanna Broderick Verified Referring physicians: Breanna Broderick DO Additional provider(s): Dr. Елена Ang [address] [place] [phone] in this encounter Discharge Instructions * Patient Instructions* Karly Mcmillan RN - 09/30/2018 10:54 AM [employer] Discharge Instructions: After Your Surgery Youve just [...] interact with your prescription medicines or other iery-wrs-bpxgcvh (OTC) medicines. Some prescription medicines have acetaminophen [...] of taking these medicines. Date Last Reviewed: 06/25/201619995801-2659 [employer]. [address] [place] [address], [place] [address]. All rights reserved. This information is not intended as a substitute for professional medical care. Always follow your healthcare professional's instructions. WORKING [employer]OP HAND * Appointments* Inocente Kate MD - 10/02/2018 10:00 AM CDT Please schedule a follow up appointment with your primary microsoft windows engineer in the next 2-4 weeks. * Pre-Anesthesia Patient Instructions* Lucille Gomez RN - 09/06/2018 12:11 PM [employer] GENERAL INFORMATION Before you come to the [...] or breakage of personal items. Remove nail georgian, makeup and all jewelry (including piercings) before coming to the hospital. The morning of your procedure: brush your teeth and tongue do not smoke do not shave the area where you will have surgery What to bring to the hospital ID/ Insurance Card Supervisor [place] card Official documents for legal guardianship Copy of your Living Will, Advanced Directives, and/or Durable Power of Slubber Runner Small bag with a few personal belongings [...] do not receive a call, please call [phone] before 4:30pm or [phone] after 4:30pm. Notify us at [facility]: if you need to cancel your procedure if you are going to be late Arrival at the [facility] [address] [place] [address] Park in the [address]age, located directly across from the main entrance to the hospital. Electrical Development Engineer parking is available from 7 AM to 4 PM Wednesday through Wednesday. Enter through the ground floor [facility] entrance and check in at the [...] if you need to provide a sample. WORKING [employer] HAND * Pre-Anesthesia Medication Instructions* Lucille Gomez RN - 09/06/2018 12:13 PM [employer]WORK[employer] YOUR MEDICATIONS: albuterol (VENTOLIN HFA, PROAIR HFA, [...] with any medicine updates or questions. E-mail: [email or web address] Before going home from the hospital, please ask your doctor when you should re- start your medicines that were stopped before surgery. WORKING SHOP HAND in this encounter Medications at Time of [...] in a 24 hour period. Call your microsoft windows engineer if you have to use this medication. [...] as of this encounter Progress Notes * Inocente Kate MD - 10/02/2018 1:01 PM CDT Discharge day note: Patient seen and examined on rounds. Vital signs stable. Physical exam unchanged from prior. Patient remains in sinus rhythm today. Discussed discharge plans. Patient given new prescriptions. Patient to follow-up with her outside microsoft windows engineer for Zio patch. Return precautions discussed. Greater than 31 minutes spent in discharge planning including discussion with patient, placement of discharge orders, documentation of discharge summary. Inocente Kate MD [facility] Q- [id number] * Angle Montgomery RN - 10/02/2018 12:18 [...] Belia Hansen MD - 10/01/2018 5:16 PM [employer] Cardiology progress note. Subjective: No acute events [...] tablet 5,000 Units 5,000 Units Oral QDAY Inocente Kate MD 5,000 Units at 10/01/18 1210 diltiazem (cardIZEM) 125 mg in sodium chloride 0.9% (NS) 125 mL IV drip ( std conc) 5-15 mg/hr Intravenous TITRATE Gumaro Dietrich MD Stopped at 0221 enoxaparin (LOVENOX) syringe 120 mg 1 mg/kg Subcutaneous Q12H* Gmuaro Dietrich MD 120 mg at 10/01/18 0605 estradiol (ESTRACE) tablet 0.5 mg 0.5 mg Oral QDAY Gumaro Dietrich MD 0.5 mg at 10/01/18 1005 metoprolol tartrate (LOPRESSOR) tablet 50 mg 50 mg Oral BID Inocente Kate MD montelukast (SINGULAIR) tablet 10 mg 10 mg Oral QHS Gumaro Dietrich MD 10 mg at 09/30/18 210 ondansetron (ZOFRAN) injection 4 mg 4 mg Intravenous Q6H PRN Gumaro Dietrich MD sertraline (ZOLOFT) tablet 150 mg 150 mg Oral QAM8 Gumaro Dietrich MD 150 mg at 10/01/18 100 traZODone (DESYREL) tablet 50 mg 50 mg Oral QHS Gumaro Dietrich MD 50 mg at 09/30/18 210 triamterene-hydrochlorothiazide (MAXZIDE) 37.5-25 mg tablet 1 tablet 1 tablet Oral QAGumaro Jara MD 1 tablet at 10/01/18 1004 Objective: [...] may not repeat in ?24 hours) - [id number] at least 3. Discussed benefits and risk for anti-correlation. Patient is agreeable to proceed with anticoagulation at least temporary for the next 6 weeks. She will follow with outpatient cardiology with the results of the monitor monitor. Consideration for implantable loop recorder with discussion with outpatient microsoft windows engineer given 2 episodes of perioperative A. Fib to determine the longevity of anticoagulate. WORKING SHOP HAND * Inocente Kate MD - 10/01/2018 11:33 AM WOODWORK[employer] HAND Progress Note - Medicine Today's Date: 10/01/2018 [...] due to age, sex, hypertension Taking metoprolol [employer] COACH 100 mg twice daily Started on diltiazem and converted to sinus rhythm on 09/30. Now with bradycardia, asymptomatic. We will decrease metoprolol to 50 mg twice daily Continue therapeutic anticoagulation for now, okay to discharge on Eliis Cardiology discussed flecainide for abortive therapy Patient to follow-up with her home microsoft windows engineer for zio patch monitoring to determine long-term [...] of care with patient and her granddaughter. Inocente Kate MD [facility] Q- [id number] __ Subjective: No acute overnight events. Patient [...] mL IV drip ( std conc) Stopped (10/01/18 0221) PRN and Respiratory Meds:acetaminophen Q6H PRN, albuterol Q6H PRN, ondansetron ( ZOFRAN) IV Q6H PRN Vitals: Vital Signs: Last Filed Vital Signs: 24 Hour Range BP: 139/86 (10/01 0730) Temp: 36.4 C (97.5 F) (10/01 0800) Pulse: (P) 40 (10/01 1053) Respirations: (P) 18 PER MINUTE (10/01 105) SpO2: 95 % (10/01 0902) O2 Delivery: (P) None (Room Air) (10/01 105) SpO2 Pulse: 116 (09/30 1530) BP: (102-176)/(45-128) [...] (Last 24 hours) Glucose: (!) 112 (10/01/18 042) Radiology and other Diagnostics Review: Pertinent radiology reviewed. WORKING SHOP HAND * Liza Hendricks RN - 10/01/2018 10:43 AM WOODWORK[employer] HAND Patient takes 5,000u vitamin D daily. Currently not on SEP. Sent text page to [facility] to notify. Tracking # [id number] WORKING [employer]OP HAND * Mary Rowley - 10/01/2018 2:20 AM WOODWORK[employer] MP Swing 4 paged to notify that patient has been at lowest rate of cardizem drip for one hour, has converted to sinus bradycardia and is sustaining a HR of low 40's. Pt BP low 100s/50s and pt resting comfortably in bed. Per , william to DC drip at this time. RN will continue to monitor. Lynda Beltrán RN - 09/30/2018 5:18 PM [employer]WORK[employer] Patient arrived to room # (HC815*) via [...] Doc Flowsheet for additional wound details. INTERVENTIONS: WORKING SHOP HAND * Gumaro Dietrich MD - 09/30/2018 5:00 PM [employer] Notified of preference for central line with esmolol infusion if duration anticipated to be prolonged. Since she has had minimal response to initial doses of esmolol, favor switching to Cardizem for rate control. Additionally, confirmed with her microsoft windows engineer that she does not have a history of tachybradycardia syndrome and therefore a short acting agent is not the most important characteristic of the infused medication. Will switch to Cardizem with dose to titrate 5-15 mg to keep rate less than 110 greater than 60. Gumaro Dietrich MD WORK[employer] * Lucille Gomez RN - 09/06/2018 12:06 PM WOODWORK[employer] HAND PAC phone triage completed with patient for [...] and copy of instructions emailed to her WORKING SHOP HAND in this encounter H&P Notes * Gumaro Dietrich MD - 09/30/2018 2:13 PM [employer]WORK[employer] Admission H&P Department of Internal Medicine Assessment (current differential diagnosis) | Status Newonset atrial fibrillation with history of tachycardia (procedural physiologic stress v botulinum v ephedrine) | Asymptomatic, and the patient notes that historically had similar episodes.ERICH(2)DS(2)-VAsc score 3 and CVA risk ~3.2% per year for HTN, Age, Sex. Follows with a Surtass Analyst in [facility], and she notes she has had "fast [...] 3:34 PM I spoke with her primary Surtass Analyst, who states after his note review that she has a history of palpitations, but no documented arrhythmia. Coronary artery disease | Asymptomatic. Prior to admission, on aspirin 81 mg daily. Her primary Surtass Analyst highlighted that in 2006 she had a catheterization that demonstrated mild coronary artery disease. RBBB | Not new. Noted on old EKG. Asthma | Controlled, with no evidence of exacerbation. Prior to admission, on Singulair and albuterol asneeded. Has not regularly needed it. 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 Urinary incontinence | Status [...] mg every afternoon. 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 Елена Ang [address] [place] [address] [phone] Pager (I spoke with Urology, who stated [...] peripheral arterial disease. I spoke with her microsoft windows engineer, and he highlighted that she had a [...] REPLACEMENT Left 09/14/2012 HIP REPLACEMENT Right 05/25/2013 RI CYSTOURETHROSCOPY INJ CHEMODENERVATION BLADDER N/A 10/22/2015 CYSTOSCOPY, INTRAVESICAL BOTOX INJECTION (150Units) performed by Shefali Herring MD at [facility] RI CYSTOURETHROSCOPY INJ CHEMODENERVATION BLADDER N/A 04/21/2016 CYSTOSCOPY, INTRAVESICAL BOTOX INJECTION (150 UNITS) performed by Shefali Herring MD at [facility] ABDOMINAL HERNIA REPAIR 05/2016 RI NDSC NJX IMPLT MATRL URT&/BLDR NCK N/A 10/23/2016 CYSTOSCOPY, INJECTION BOTOX (150 UNITS) performed by Shefali Herring MD at [facility] RI CYSTOURETHROSCOPY INJ CHEMODENERVATION BLADDER N/A 04/23/2017 CYSTOSCOPY, INJECTION BOTOX (150 UNITS) performed by Shefali Herring MD at [facility] CYSTOSCOPY N/A 09/28/2017 CYSTOSCOPY, INJECTION BOTOX (150 UNITS) performed by Shefali Herring MD at [facility] RI CYSTOURETHROSCOPY INJ CHEMODENERVATION BLADDER N/A 03/29/2018 CYSTOSCOPY, [...] PACU I spoke directly with the Urologist. WORKING SHOP HAND * Shefali Herring MD - 09/30/2018 9:48 AM WOODWORKING [employer] HAND Admission History and Physical Examination Name: Mame [...] REPLACEMENT Left 09/14/2012 HIP REPLACEMENT Right 05/25/2013 RI CYSTOURETHROSCOPY INJ CHEMODENERVATION BLADDER N/A 10/22/2015 CYSTOSCOPY, INTRAVESICAL BOTOX INJECTION (150Units) performed by Shefali Herring MD at [facility]iop RI CYSTOURETHROSCOPY INJ CHEMODENERVATION BLADDER N/A 04/21/2016 CYSTOSCOPY, INTRAVESICAL BOTOX INJECTION (150 UNITS) performed by Shefali Herring MD at [facility] ABDOMINAL HERNIA REPAIR 05/2016 RI NDSC NJX IMPLT MATRL URT&/BLDR NCK N/A 10/23/2016 CYSTOSCOPY, INJECTION BOTOX (150 UNITS) performed by Shefali Herring MD at [facility] RI CYSTOURETHROSCOPY INJ CHEMODENERVATION BLADDER N/A 04/23/2017 CYSTOSCOPY, INJECTION BOTOX (150 UNITS) performed by Shefali Herring MD at [facility] CYSTOSCOPY N/A 09/28/2017 CYSTOSCOPY, INJECTION BOTOX (150 UNITS) performed by Shefali Herring MD at [facility] OR[facility]iop RI CYSTOURETHROSCOPY INJ CHEMODENERVATION BLADDER N/A 03/29/2018 CYSTOSCOPY, [...] Pertinent radiology reviewed. Malcom Chaidez MD Pager [phone] ATTESTATION I personally performed the westfall portions of the E/M visit, discussed case with resident and concur with resident documentation of history, physical exam, assessment, and treatment plan unless otherwise noted. Staff name: Shefali Hrering MD WORKING SHOP HAND in this encounter Consult Notes * Megan Cutler MD - 09/30/2018 5:05 PM WOODWORKING SHOP HAND Associated Order(s): CONSULT CARDIOLOGY PHYSICIAN STAFF CARDIOLOGY CONSULT NOTE Admission Date: 09/30/2018 Code Status: Full Code Reason for Consultation: New onset atrial fibrillation History of Present Illness: This is a 73 y.o. white female patient that was admitted to [facility] 2 undergo Botox injection of her [...] was restored. Patient does follow-up with a microsoft windows engineer in [place], [place]. She underwent a left heart catheterization in 2006, she was not found to have any significantly obstructive coronary artery disease. She was seen by her microsoft windows engineer a few days ago and was found [...] Signs: 24 Hour Range BP: 143/110 (09/30 1634) Temp: 37.2 C (99 F) (09/30 1634) Pulse: 106 (09/30 1634) Respirations: 22 PER MINUTE (09/30 1634) SpO2: 93 % (09/30 1634) O2 Delivery: None (Room Air) (09/30 1634) SpO2 Pulse: 116 (09/30 1530) Height: 170.2 [...] Intake/Output Summary (Last 24 hours) at 09/30/2018 170 Last data filed at 09/30/2018 1635 Gross [...] range of 110-120 bpm Assessment & Plan Mmae Archer is a 73 y.o. patient with [...] another surgical procedure. Patient follows with a microsoft windows engineer in [place], [place] and she does not have coronary [...] diet 9. Patient will follow-up with her microsoft windows engineer in her hometown. Megan Cutler MD WORKING SHOP HAND in this encounter Miscellaneous Notes * Care [...] Carlo He MD - 10/01/2018 3:50 AM [employer] Please page [phone] with any questions until 8am after that please page med private Q [employer] * Operative Report (Direct Entry) - Shefali Herring MD - 09/30/2018 10:25 AM [employer] OPERATIVE REPORT Name: Mame Archer is a [...] a resident. Staff name: Shefali Herring MD [employer] in this encounter Plan of Treatment Care Team Description Date Type Specialty Shefali Herring MD [address] [facility] [address] [place] [address] Urge incontinence 03/31/2019 Hospital Encounter Shefali Herring MD [address] [facility] [address] [place] [address] CYSTOURETHROSCOPY WITH INJECTION FOR CHEMODENERVATION OF THE BLADDER (BOTOX 150 UNITS) 03/31/2019 Surgery as of this encounter Procedures Comments Procedure Name Priority Date/Time Associated Diagnosis CBC AND DIFF Routine 10/02/2018 5:49 AM CDT MAGNESIUM Routine 10/02/2018 5:49 AM CDT COMPREHENSIVE METABOLIC Routine 10/02/2018 PANEL 5:49 AM CDT 2-D + DOPPLER Routine 10/01/2018 ECHOCARDIOGRAM 2:00 PM [employer] CBC AND DIFF Routine 10/01/2018 4:29 AM [employer] THYROID STIMULATING Add on 10/01/2018 HORMONE-TSH 4:29 AM [employer] MAGNESIUM Routine 10/01/2018 4:29 AM [employer] HEMOGLOBIN A1C Add on 10/01/2018 4:29 AM [employer] LIPID PROFILE Routine 10/01/2018 4:29 AM [employer] COMPREHENSIVE METABOLIC Routine 10/01/2018 PANEL 4:29 AM [employer] TROPONIN-I STAT 09/30/2018 6:10 PM [employer] PROTIME INR (PT) STAT 09/30/2018 6:10 PM [employer] CBC STAT 09/30/2018 6:10 PM [employer] ECG 12-LEAD Routine 09/30/2018 4:42 PM [employer] TROPONIN-I 09/30/2018 2:13 PM [employer] PHOSPHORUS STAT 09/30/2018 2:13 PM [employer] MAGNESIUM STAT 09/30/2018 2:13 PM [employer] BASIC METABOLIC PANEL STAT 09/30/2018 2:13 PM [employer] CHEST SINGLE VIEW STAT 09/30/2018 2:11 PM [employer] CYSTOURETHROSCOPY WITH 09/30/2018 Urge urinary incontinence INJECTION FOR 10:25 AM [employer] CHEMODENERVATION OF THE BLADDER Special Needs 09/13 PER CHANGE FORM CASE MOVED FROM 09/27 TO 09/30 TO FOLLOW - C. MARIANO DEXTER ([id number]) TELEMETRY STRIPS-SCAN 09/30/2018 12:00 AM [employer] HAND TELEMETRY STRIPS-SCAN 09/30/2018 12:00 AM [employer] TELEMETRY STRIPS-SCAN 09/30/2018 12:00 AM [employer] ECG-SCAN 09/30/2018 12:00 AM [employer] in this encounter Results * MAGNESIUM (10/02/2018 5:49 AM CDT) Magnesium 1.8 1.6 - 2.6 mg/dL [facility] Specimen Blood Performing Organization Address [facility] [place] [facility] [address] [phone] * COMPREHENSIVE METABOLIC PANEL (10/02/2018 5:49 AM [...] for questions. Specimen Blood Performing Organization Address [facility] Phone Number [facility] [address] [place] [address] * CBC AND DIFF (10/02/2018 5:49 AM CDT) White Blood Cells 6.4 4.5 - 11.0 K/UL [facility] RBC 4.75 4.0 - 5.0 M/UL [facility] Hemoglobin 14.1 12.0 - 15.0 GM/DL [facility] Hematocrit 40.6 36 - 45 % [facility] MCV 85.5 80 - 100 FL [facility] MCH 29.6 26 - 34 PG [facility] MCHC 34.6 32.0 - 36.0 G/DL [facility] RDW 14.1 11 - 15 % [facility] Platelet Count 179 150 - 400 K/UL [facility] MPV 7.4 7 - 11 FL [facility] Neutrophils 60 41 - 77 % [facility] Lymphocytes 30 24 - 44 % [facility] Monocytes 6 4 - 12 % [facility] Eosinophils 3 0 - 5 % [facility] Basophils 1 0 - 2 % [facility] Absolute Neutrophil Count 3.80 1.8 - 7.0 K/UL [facility] Absolute Lymph Count 1.90 1.0 - 4.8 K/UL [facility] Absolute Monocyte Count 0.40 0 - 0.80 K/UL [facility] Absolute Eosinophil Count 0.20 0 - 0.45 K/UL [facility] Absolute Basophil Count 0.00 0 - 0.20 K/UL [facility] Specimen Blood Performing Organization Address City/State/Zipcode Phone Number [facility] [address] [place] [address] * 2-D + DOPPLER ECHOCARDIOGRAM (10/01/2018 2:00 PM [employer]) IVS 0.64 0.6 - 0.9 cm OTHER [...] 34 OTHER OUTSIDE LAB Cardiology Ultrasound Siemens [id number] OTHER OUTSIDE LAB Machine Left Ventricle Mass [...] No Pericardial Effusion PASP=37mmHg Performing Organization Address City/State/Zipcode Phone Number OTHER OUTSIDE LAB * THYROID STIMULATING HORMONE-TSH (10/01/2018 4:29 AM [employer]) TSH 0.970 0.35 - 5.00 MCU/ML [facility] Performing Organization Address City/State/Zipcode Phone Number [facility] [address] [place] [address] * HEMOGLOBIN A1C (10/01/2018 4:29 AM [employer]) Hemoglobin A1C 6.0 4.0 - 6.0 % [facility] Comment: The ADA recommends that most patients with type 1 and type 2 diabetes maintain an A1c level <7%. Performing Organization Address City/State/Zipcode Phone Number [facility] [address] [place] [address] * MAGNESIUM (10/01/2018 4:29 AM [employer]) Magnesium 1.9 1.6 - 2.6 mg/dL [facility] Specimen Blood Performing Organization Address [facility] Phone Number [facility] [address] [place] [address] * COMPREHENSIVE METABOLIC PANEL (10/01/2018 4:29 AM [employer]) Sodium 141 137 - 147 MMOL/L [facility] [...] for questions. Specimen Blood Performing Organization Address City/[facility]/Zipcode Phone Number [facility] [address] [place] [address] * CBC AND DIFF (10/01/2018 4:29 AM [employer]) White Blood Cells 9.1 4.5 - 11.0 K/UL [facility] RBC 4.80 4.0 - 5.0 M/UL [facility] Hemoglobin 14.0 12.0 - 15.0 GM/DL [facility] Hematocrit 41.6 36 - 45 % [facility] MCV 86.6 80 - 100 FL [facility] MCH 29.2 26 - 34 PG [facility] MCHC 33.7 32.0 - 36.0 G/DL [facility] RDW 14.2 11 - 15 % [facility] Platelet Count 202 150 - 400 K/UL [facility] MPV 7.7 7 - 11 FL [facility] Neutrophils 77 41 - 77 % [facility] Lymphocytes 16 (L) 24 - 44 % [facility] Monocytes 7 4 - 12 % [facility] Eosinophils 0 0 - 5 % [facility] Basophils 0 0 - 2 % [facility] Absolute Neutrophil Count 6.90 1.8 - 7.0 K/UL MA[facility] Absolute Lymph Count 1.50 1.0 - 4.8 K/UL [facility] Absolute Monocyte Count 0.60 0 - 0.80 K/UL MA[facility] Absolute Eosinophil Count 0.00 0 - 0.45 K/UL [facility] Absolute Basophil Count 0.00 0 - 0.20 K/UL [facility] Specimen Blood Performing Organization Address City/[facility]/Zipcode Phone Number MAIN LAB [address] [place] [address] * LIPID PROFILE (10/01/2018 4:29 AM [employer]) Cholesterol 123 <200 MG/DL [facility] Triglycerides 155 (H) <150 MG/DL [facility] HDL 37 (L) >40 MG/DL [facility] LDL 62 <100 MG/DL [facility] VLDL 31 MG/DL [facility] Non HDL Cholesterol 86 MG/DL [facility] Comment: Calculated non-HDL Cholesterol (non-HDL-C) indirectly measures LDL-C, Lp(a), IDL-C, and VLDL-C.It is a surrogate marker for Apoprotein B.Goal should be less than 130 mg/dL. Specimen Blood Performing Organization Address City/[facility]/Zipcode Phone Number [facility] [address] [place] [address] * CBC (09/30/2018 6:10 PM [employer]) White Blood Cells 10.2 4.5 - 11.0 [...] MAIN LAB Specimen Blood Performing Organization Address City/[facility] Phone Number [facility] [address] [place] [address] * PROTIME INR (PT) (09/30/2018 6:10 PM [employer]) INR 1.0 0.8 - 1.2 [facility] Specimen Blood Performing Organization Address City/[facility] Phone Number [facility] [address] [place] [address] * TROPONIN-I (09/30/2018 6:10 PM [employer]) Troponin-I 0.01 0.0 - 0.05 NG/ML [facility] Specimen Blood Performing Organization Address [facility] Phone Number [facility] [address] [place] [address] * TROPONIN-I (09/30/2018 2:13 PM [employer]) Troponin-I 0.01 0.0 - 0.05 NG/ML [facility] Performing Organization Address [facility] Phone Number [facility] [address] [place] [address] * PHOSPHORUS (09/30/2018 2:13 PM [employer]) Phosphorus 3.4Comment: NOTE NEW REFERENCE 2.0 - 4.5 MG/DL [facility] RANGES Specimen Blood Performing Organization Address [facility] Phone Number [facility] [address] [place] [address] * MAGNESIUM (09/30/2018 2:13 PM [employer]) Magnesium 1.9 1.6 - 2.6 mg/dL [facility] Specimen Blood Performing Organization Address City/[facility] Phone Number [facility] [address] [place] [address] * BASIC METABOLIC PANEL (09/30/2018 2:13 PM [employer]) Sodium 142 137 - 147 MMOL/L [facility] [...] Address City/State/Zipcode Phone Number MAIN [facility] [address] [place] [address] * CHEST SINGLE VIEW (09/30/2018 2:11 PM [employer]) Impressions Performed At Poor depth of inspiration [...] Interface, Radiant Results - 09/30/2018 2:15 PM [employer] Single view of the chest Clinical history: [...] RESULTS * TELEMETRY STRIPS-SCAN (09/30/2018 12:00 AM [employer]) Narrative Performed At Ordered by an unspecified provider. * TELEMETRY STRIPS-SCAN (09/30/2018 12:00 AM [employer]) Narrative Performed At Ordered by an unspecified provider. * TELEMETRY STRIPS-SCAN (09/30/2018 12:00 AM [employer]) Narrative Performed At Ordered by an unspecified provider. * ECG-SCAN (09/30/2018 12:00 AM [employer]) Narrative Performed At Ordered by an unspecified provider. in this encounter Visit Diagnoses Diagnosis Atrial fibrillation with rapid ventricular response (HCC) - Primary Atrial fibrillation Urge incontinence Paroxysmal atrial fibrillation (HCC) Atrial fibrillation Morbid obesity (HCC) Morbid obesity Coronary artery disease Coronary atherosclerosis of unspecified type of vessel, makah or graft Hypertension Unspecified essential hypertension Depression (disease) Depressive disorder, not elsewhere classified Hyperlipidemia Other and unspecified hyperlipidemia Obstructive sleep apnea on CPAP Obstructive sleep apnea (adult) (pediatric) Asthma Unspecified asthma in this encounter Admitting Diagnoses Diagnosis Atrial flutter with rapid ventricular response (HCC) Atrial flutter in this encounter Administered Medications Action Date Dose Rate Site Medication Order MAR Action 10/01/2018 12:10 PM [employer] 650 mg acetaminophen (TYLENOL) tablet 650 mg Given 650 mg, Oral, EVERY 6 HOURS PRN, Starting 09/30/18 at 1642, Until 10/02/18 at 1511, Pain non-opioid: may be used alone or in combination with opioid analgesia, TOTAL ACETAMINOPHEN DOSE NOT TO EXCEED 4GM DAILY, 10/02/2018 10:13 AM CDT 10 mg amLODIPine (NORVASC) tablet 10 mg Given 10 mg, Oral, DAILY, First dose on 09/30/18 at 1645, Until Discontinued, NURSING: Please educate patient and document: Do not give with grapefruit juice., 10 mg Given 10/01/2018 10:03 AM [employer] 10 mg Given 09/30/2018 5:47 PM [employer] 10/02/2018 10:13 AM CDT 81 mg aspirin EC tablet 81 mg Given 81 mg, Oral, DAILY, First dose on Wed10/01/18 at 0900, Until Discontinued 81 mg Given 10/01/2018 10:04 AM [employer] 10/01/2018 8:37 PM [employer] 80 mg atorvastatin (LIPITOR) tablet 80 mg Given 80 mg, Oral, AT BEDTIME DAILY, First dose on Wed09/30/18 at 2100, Until Discontinued 80 mg Given 09/30/2018 9:05 PM [employer] 10/02/2018 10:13 AM CDT 5,000 Units cholecalciferol (VITAMIN D-3) tablet Given 5,000 Units 5,000 Units, Oral, DAILY, First dose on Wed10/01/18 at 1245, Until Discontinued 5,000 Units Given 10/01/2018 12:10 PM [employer] 10/01/2018 1:37 AM [employer] 5 mg/hr 5 mL/hr diltiazem (cardIZEM) 125 [...] Given - New Bag 10/01/2018 1:19 AM [employer] 10 mg/hr 10 mL/hr Dose/Rate Change 10/01/2018 1:06 AM [employer] 10/02/2018 6:07 AM CDT 120 mg Abdominal [...] mg Abdominal Tissue Given 10/01/2018 5:48 PM [employer] 120 mg Abdominal Tissue Given 10/01/2018 6:05 AM [employer] 09/30/2018 4:52 PM [employer] 175 mcg/kg/min 126 mL/hr esmolol (BREVIBLOC) 2500 [...] 90 mL/hr Dose/Rate Change 09/30/2018 4:06 PM [employer] 100 mcg/kg/min 72 mL/hr Dose/Rate Change 09/30/2018 3:46 PM [employer] 10/02/2018 10:13 AM CDT 0.5 mg estradiol (ESTRACE) tablet 0.5 mg Given 0.5 mg, Oral, DAILY, First dose on Wed10/01/18 at 0900, Until Discontinued 0.5 mg Given 10/01/2018 10:05 AM [employer] 09/30/2018 11:33 AM [employer] 1,000 mL 20 mL/hr lactated ringers infusion Given - New 1,000 mL, 1,000 mL, Intravenous, at 20 Bag mL/hr, CONTINUOUS, Starting Wed09/30/18 at 0930, Until Wed09/30/18 at 1642, Pre-Op Given - New Bag 09/30/2018 9:55 AM [employer] 10/01/2018 10:04 AM [employer] 535 mg magnesium chloride (MAG DELAY) tablet Given 535 mg 535 mg, Oral, TWICE DAILY, 2 doses, First dose on Wed09/30/18 at 1515, Last dose on Wed10/01/18 at 0900, Each 535mg delivers 64mg elemental magnesium., 535 mg Given 09/30/2018 3:42 PM [employer] 09/30/2018 12:38 PM [employer] 10 mg metoprolol (LOPRESSOR) injection 10 mg Given 10 mg, Intravenous, ONCE, 1 dose, Wed09/30/18 at 1245, PROTECT FROM LIGHT, PACU (only) 09/30/2018 11:35 AM [employer] 5 mg metoprolol (LOPRESSOR) injection 5 mg Given 5 mg, Intravenous, ONCE, 1 dose, Wed09/30/18 at 1145, PROTECT FROM LIGHT, PACU (only) 09/30/2018 11:58 AM [employer] 5 mg metoprolol (LOPRESSOR) injection 5 mg Given 5 mg, Intravenous, ONCE, 1 dose, Wed09/30/18 at 1200, PROTECT FROM LIGHT, PACU (only) 09/30/2018 12:17 PM [employer] 5 mg metoprolol (LOPRESSOR) injection 5 mg Given 5 mg, Intravenous, ONCE, 1 dose, Wed09/30/18 at 1230, PROTECT FROM LIGHT, PACU (only) 09/30/2018 9:05 PM [employer] 100 mg metoprolol tartrate (LOPRESSOR) tablet Given [...] Created by cabinet override, 10/01/2018 8:37 PM [employer] 10 mg montelukast (SINGULAIR) tablet 10 mg Given 10 mg, Oral, AT BEDTIME DAILY, First dose on Wed09/30/18 at 2100, Until Discontinued 10 mg Given 09/30/2018 9:05 PM [employer] 09/30/2018 4:07 PM [employer] 100 Units ONAbotulinum toxin (BOTOX) syringe 100 Given - See Units OR/Proc 100 Units, SEE ADMIN INSTRUCTIONS, ONCE, Flowsheet 1 dose, Wed09/30/18 at 0730, ++For immediate use ++ Short Stability++, 10/01/2018 2:01 PM [employer] 1 Diluted mL perflutren lipid microspheres (DEFINITY) Given injection 1-20 Diluted mL 1-20 Diluted mL, Intravenous, ONCE PRN, 1 dose, Starting 10/01/18 at 1305, Until 10/01/18 at 1401, For Procedure, A wiring inspector may only administer Definity through a saline lock. If IV is in use or a port, PICC, or central line is being used a nurse must administer. NOTE: This is a HIGH ALERT Medication., MAC Procedure Area Only - Medications 10/02/2018 10:13 AM CDT 150 mg sertraline (ZOLOFT) tablet 150 mg Given 150 mg, Oral, EVERY MORNING, First dose on 10/01/18 at 0800, Until Discontinued 150 mg Given 10/01/2018 10:04 AM [employer] 10/01/2018 8:37 PM [employer] 50 mg traZODone (DESYREL) tablet 50 mg Given 50 mg, Oral, AT BEDTIME DAILY, First dose on Wed09/30/18 at 2100, Until Discontinued 50 mg Given 09/30/2018 9:05 PM [employer] 10/02/2018 10:14 AM CDT 1 tablet triamterene-hydrochlorothiazide Given (MAXZIDE) 37.5-25 mg tablet 1 tablet 1 tablet, Oral, EVERY MORNING, First dose on 10/01/18 at 0800, Until Discontinued 1 tablet Given 10/01/2018 10:04 AM [employer] in this encounter
--- OUTSIDE RECORDS SUMMARY | 2018-10-09 21:45 | XMS REPORT | Encounter Summary ---
Author Author [facility] Organization [facility] Address Unknown Phone Unavailable Care Team Providers Care Tactical Debriefer Officer Name Role Phone Alan Ramachandran MD Unavailable [...] incontinence Urge urinary incontinence [N39.41] P rocedures [place] CYSTOURETHROSCOPY INJ CHEMODENERVATION BLADDER CYSTOSCOPY WITH BOTOX INJECTION (150 UNITS) Encounter Details Care Team Description Date Type Department Nathanael Bradley SRNA 09/30/2018 Anesthesia Main Operating Room Event Main [facility] [address] [place] [address] Anesthesia Record Responsible Anesthesiologist Anesthesia Start Time [...] Date Type Specialty Shefali Herring MD [address] [facility] [address] [place] [address] [phone] Urge incontinence 03/31/2019 Hospital Encounter Shefali Herring MD [address] [facility] [address] [place] [address] [phone] CYSTOURETHROSCOPY WITH INJECTION FOR CHEMODENERVATION OF THE BLADDER (BOTOX 150 UNITS) 03/31/2019 Surgery as of this encounter Results * ECG-SCAN (09/30/2018 12:00 AM AUTOMOTIVE LUBE TECHNICIAN) Narrative Performed At Ordered by an unspecified provider. in this encounter Visit Diagnoses Not on filein this encounter Administered Medications Action Date Dose Rate Site Medication Order MAR Action 09/30/2018 10:21 AM AUTOMOTIVE LUBE TECHNICIAN 2 g ceFAZolin (ANCEF) injection Given INTRA-PROCEDURE MED, Starting Wed09/30/18 at 1021, Until Wed09/30/18 at 1050, Anesthesia Intra-op 09/30/2018 10:25 AM AUTOMOTIVE LUBE TECHNICIAN 4 mg dexamethasone (DECADRON) injection Given Intravenous, INTRA-PROCEDURE MED, Starting Wed09/30/18 at 1025, Until Wed09/30/18 at 1050, Anesthesia Intra-op 09/30/2018 10:12 AM AUTOMOTIVE LUBE TECHNICIAN 2 drops dextran 70/hypromellose (GENTEAL TEARS; Given BION TEARS) ophthalmic solution INTRA-PROCEDURE MED, Starting Wed09/30/18 at 1012, Until Wed09/30/18 at 1050, Anesthesia Intra-op 09/30/2018 10:30 AM AUTOMOTIVE LUBE TECHNICIAN 10 mg ePHEDrine 50 mg/mL 50 mg in sodium Bolus chloride PF 0.9% 5 mL IV syringe 5 mL, INTRA-PROCEDURE MED(CONT), Starting Wed09/30/18 at 1015, Until Wed09/30/18 at 1050, Anesthesia Intra-op 10 mg Bolus 09/30/2018 10:22 AM AUTOMOTIVE LUBE TECHNICIAN 10 mg Given - New Bag 09/30/2018 10:15 AM AUTOMOTIVE LUBE TECHNICIAN 09/30/2018 10:10 AM AUTOMOTIVE LUBE TECHNICIAN 25 mcg fentaNYL citrate PF (SUBLIMAZE) Given injection INTRA-PROCEDURE MED, Starting Wed09/30/18 at 1010, Until Wed09/30/18 at 1050, Anesthesia Intra-op 09/30/2018 10:24 AM AUTOMOTIVE LUBE TECHNICIAN 0.2 mg glycopyrrolate (ROBINUL) injection Given INTRA-PROCEDURE MED, Starting Wed09/30/18 at 1015, Until Wed09/30/18 at 1050, Anesthesia Intra-op 0.2 mg Given 09/30/2018 10:15 AM AUTOMOTIVE LUBE TECHNICIAN 09/30/2018 11:33 AM AUTOMOTIVE LUBE TECHNICIAN 1,000 mL 20 mL/hr lactated ringers infusion Given - New 1,000 mL, 1,000 mL, Intravenous, at 20 Bag mL/hr, CONTINUOUS, Starting Wed09/30/18 at 0930, Until Wed09/30/18 at 1642, Pre-Op Given - New Bag 09/30/2018 9:55 AM AUTOMOTIVE LUBE TECHNICIAN 09/30/2018 10:10 AM AUTOMOTIVE LUBE TECHNICIAN 80 mg lidocaine (PF) injection Given INTRA-PROCEDURE MED, Starting Wed09/30/18 at 1010, Until Wed09/30/18 at 1050, Anesthesia Intra-op 09/30/2018 10:25 AM AUTOMOTIVE LUBE TECHNICIAN 4 mg ondansetron (ZOFRAN) injection Given Intravenous, INTRA-PROCEDURE MED, Starting Wed09/30/18 at 1025, Until Wed09/30/18 at 1050, Anesthesia Intra-op 09/30/2018 10:17 AM AUTOMOTIVE LUBE TECHNICIAN 40 mg propofol (DIPRIVAN) injection Given INTRA-PROCEDURE MED, Starting Wed09/30/18 at 1010, Until Wed09/30/18 at 1050, Anesthesia Intra-op 140 mg Given 09/30/2018 10:10 AM AUTOMOTIVE LUBE TECHNICIAN in this encounter
--- OUTSIDE RECORDS SUMMARY | 2018-10-09 21:46 | XMS REPORT | Encounter Summary ---
Author Author [facility] Organization [facility] Address Unknown Phone Unavailable Care Team Providers Care Song Writer Name Role Phone Alan Ramachandran MD Unavailable [...] incontinence Urge urinary incontinence [N39.41] P rocedures [place] CYSTOURETHROSCOPY INJ CHEMODENERVATION BLADDER CYSTOSCOPY WITH BOTOX INJECTION (150 UNITS) Encounter Details Care Team Description Date Type Department Shefali Herring MD [address] [facility] [address] [place] [address] CYSTOSCOPY WITH BOTOX INJECTION (150 UNITS) 09/30/2018 Surgery Main Operating Room [facility] [address] [place] [address] Social History Date Tobacco Use [...] Inhaled Oxygen - Concentration 10/01/2018 2:00 PM [employer] Weight 121.6 kg (268 lb) 10/01/2018 2:00 PM [employer] Height 170.2 cm (5' 7") 10/01/2018 2:00 PM [employer] Body Mass Index 41.97 in this encounter [...] in a 24 hour period. Call your director validation if you have to use this medication. [...] Date Type Specialty Shefali Herring MD [address] [facility] [address] [place] [address] [phone] Urge incontinence 03/31/2019 Hospital Encounter Shefali Herring MD [address] [facility] L[address] [place] [address] CYSTOURETHROSCOPY WITH INJECTION FOR CHEMODENERVATION OF THE BLADDER (BOTOX 150 UNITS) 03/31/2019 Surgery as of this encounter Procedures Comments Procedure Name Priority Date/Time Associated Diagnosis CBC AND DIFF Routine 10/02/2018 5:49 AM CDT MAGNESIUM Routine 10/02/2018 5:49 AM CDT COMPREHENSIVE METABOLIC Routine 10/02/2018 PANEL 5:49 AM CDT 2-D + DOPPLER Routine 10/01/2018 ECHOCARDIOGRAM 2:00 PM [employer] CBC AND DIFF Routine 10/01/2018 4:29 AM [employer] THYROID STIMULATING Add on 10/01/2018 HORMONE-TSH 4:29 AM [employer] MAGNESIUM Routine 10/01/2018 4:29 AM [employer] HEMOGLOBIN A1C Add on 10/01/2018 4:29 AM [employer] LIPID PROFILE Routine 10/01/2018 4:29 AM [employer] COMPREHENSIVE METABOLIC Routine 10/01/2018 PANEL 4:29 AM [employer] TROPONIN-I STAT 09/30/2018 6:10 PM [employer] PROTIME INR (PT) STAT 09/30/2018 6:10 PM [employer] CBC STAT 09/30/2018 6:10 PM [employer] ECG 12-LEAD Routine 09/30/2018 4:42 PM [employer] TROPONIN-I 09/30/2018 2:13 PM [employer] PHOSPHORUS STAT 09/30/2018 2:13 PM [employer] MAGNESIUM STAT 09/30/2018 2:13 PM [employer] BASIC METABOLIC PANEL STAT 09/30/2018 2:13 PM [employer] CHEST SINGLE VIEW STAT 09/30/2018 2:11 PM [employer] CYSTOURETHROSCOPY WITH 09/30/2018 Urge urinary incontinence INJECTION FOR 10:25 AM [employer] CHEMODENERVATION OF THE BLADDER Special Needs 09/13 PER CHANGE FORM CASE MOVED FROM 09/27 TO 09/30 TO FOLLOW - C. MARIANO DEXTER ([id number]) TELEMETRY STRIPS-SCAN 09/30/2018 12:00 AM [employer]ER [employer] TELEMETRY STRIPS-SCAN 09/30/2018 12:00 AM [employer]ER [employer] TELEMETRY STRIPS-SCAN 09/30/2018 12:00 AM [employer]ER [employer] ECG-SCAN 09/30/2018 12:00 AM [employer] in this encounter Results * MAGNESIUM (10/02/2018 5:49 AM CDT) Magnesium 1.8 1.6 - 2.6 mg/dL [facility] Specimen Blood Performing Organization Address City/State/Zipcode Phone Number MAIN LAB [address] [place] [address] * COMPREHENSIVE METABOLIC PANEL (10/02/2018 5:49 AM [...] for questions. Specimen Blood Performing Organization Address [facility]/Zipcode Phone Number [facility] [address] [place] [address] * CBC AND DIFF (10/02/2018 5:49 AM CDT) White Blood Cells 6.4 4.5 - 11.0 K/UL [facility] RBC 4.75 4.0 - 5.0 M/UL [facility] Hemoglobin 14.1 12.0 - 15.0 GM/DL [facility] Hematocrit 40.6 36 - 45 % [facility] MCV 85.5 80 - 100 FL [facility] MCH 29.6 26 - 34 PG [facility] MCHC 34.6 32.0 - 36.0 G/DL [facility] RDW 14.1 11 - 15 % [facility] Platelet Count 179 150 - 400 K/UL [facility] MPV 7.4 7 - 11 FL [facility] Neutrophils 60 41 - 77 % [facility] Lymphocytes 30 24 - 44 % [facility] Monocytes 6 4 - 12 % [facility] Eosinophils 3 0 - 5 % [facility] Basophils 1 0 - 2 % [facility] Absolute Neutrophil Count 3.80 1.8 - 7.0 K/UL [facility] Absolute Lymph Count 1.90 1.0 - 4.8 K/UL [facility] Absolute Monocyte Count 0.40 0 - 0.80 K/UL [facility] Absolute Eosinophil Count 0.20 0 - 0.45 K/UL [facility] Absolute Basophil Count 0.00 0 - 0.20 K/UL [facility] Specimen Blood Performing Organization Address City/[facility]/Zipcode Phone Number [facility] [address] [place] [address] * 2-D + DOPPLER ECHOCARDIOGRAM (10/01/2018 2:00 PM [employer]IN [employer]ER [employer]) IVS 0.64 0.6 - 0.9 cm OTHER [...] 34 OTHER OUTSIDE LAB Cardiology Ultrasound Siemens [id number] OTHER OUTSIDE LAB Machine Left Ventricle Mass [...] * THYROID STIMULATING HORMONE-TSH (10/01/2018 4:29 AM [employer]) TSH 0.970 0.35 - 5.00 MCU/ML MAIN LAB Performing Organization Address City/State/Zipcode Phone Number MAIN LAB [address] [place] [address] * HEMOGLOBIN A1C (10/01/2018 4:29 AM [employer]) Hemoglobin A1C 6.0 4.0 - 6.0 % [facility] Comment: The ADA recommends that most patients with type 1 and type 2 diabetes maintain an A1c level <7%. Performing Organization Address City/[facility] Phone Number [facility] [address] [place] [phone] * MAGNESIUM (10/01/2018 4:29 AM [employer]) Magnesium 1.9 1.6 - 2.6 mg/dL [facility] Specimen Blood Performing Organization Address [facility] Phone Number MA[facility] LAB [address] [place] [address] * COMPREHENSIVE METABOLIC PANEL (10/01/2018 4:29 AM [employer]) Sodium 141 137 - 147 MMOL/L [facility] [...] for questions. Specimen Blood Performing Organization Address [facility] Phone Number [facility] [address] [place] [place] [phone] * CBC AND DIFF (10/01/2018 4:29 AM [employer]ER [employer]) White Blood Cells 9.1 4.5 - 11.0 [...] MAIN LAB Specimen Blood Performing Organization Address City/[facility] Phone Number [facility] LAB [address] [place] [address] * LIPID PROFILE (10/01/2018 4:29 AM [employer]) Cholesterol 123 <200 MG/DL [facility] [...] 130 mg/dL. Specimen Blood Performing Organization Address [facility]/Zipcode Phone Number [facility] [address] [place] [address] * CBC (09/30/2018 6:10 PM TIN CON[employer]ER [employer]) White Blood Cells 10.2 4.5 - 11.0 [...] MAIN LAB Specimen Blood Performing Organization Address City/[facility] Phone Number MA[facility] LAB [address] [place] [address] * PROTIME INR (PT) (09/30/2018 6:10 PM [employer]ER [employer]) INR 1.0 0.8 - 1.2 MAIN LAB Specimen Blood Performing Organization Address [facility] Phone Number MA[facility] LAB [address] [place] [address] * TROPONIN-I (09/30/2018 6:10 PM [employer]ER [employer]) Troponin-I 0.01 0.0 - 0.05 NG/ML MAIN LAB Specimen Blood Performing Organization Address [facility] Phone [facility] LAB [address] [place] [address] * TROPONIN-I (09/30/2018 2:13 PM [employer]IN CON[employer]ER [employer]) Troponin-I 0.01 0.0 - 0.05 NG/ML MAIN LAB Performing Organization Address [facility] Phone Number [facility] LAB [address] [place] [address] * PHOSPHORUS (09/30/2018 2:13 PM [employer] CON[employer]ER [employer]) Phosphorus 3.4Comment: NOTE NEW REFERENCE 2.0 - 4.5 MG/DL MAIN LAB RANGES Specimen Blood Performing Organization Address [facility] Phone Number MA[facility] LAB [address] [place] [address] * MAGNESIUM (09/30/2018 2:13 PM TIN CON[employer]ER STRA[employer]ENER) Magnesium 1.9 1.6 - 2.6 mg/dL [facility] Specimen Blood Performing Organization Address City/[facility]/Zipcode Phone Number MAIN LAB [address] [place] [address] * BASIC METABOLIC PANEL (09/30/2018 2:13 PM TIN CON[employer]ER [employer]ENER) Sodium 142 137 - 147 MMOL/L [facility] [...] for questions. Specimen Blood Performing Organization Address [facility]/Zipcode Phone Number MAIN LAB [address] [place] [phone] * CHEST SINGLE VIEW (09/30/2018 2:11 PM TIN CONTAINER STRA[employer]ENER) Impressions Performed At Poor depth of inspiration [...] Interface, Radiant Results - 09/30/2018 2:15 PM TIN CON[employer]ER [employer] Single view of the chest Clinical history: [...] RESULTS * TELEMETRY STRIPS-SCAN (09/30/2018 12:00 AM TIN CONTAINER STRA[employer]ENER) Narrative Performed At Ordered by an unspecified provider. * TELEMETRY STRIPS-SCAN (09/30/2018 12:00 AM TIN CONTAINER STRA[employer]ENER) Narrative Performed At Ordered by an unspecified provider. * TELEMETRY STRIPS-SCAN (09/30/2018 12:00 AM TIN CON[employer]ER [employer]ENER) Narrative Performed At Ordered by an unspecified provider. * ECG-SCAN (09/30/2018 12:00 AM TIN CONTAINER STRA[employer]ENER) Narrative Performed At Ordered by an unspecified provider. in this encounter Visit Diagnoses Diagnosis Urge urinary incontinence Urge incontinence in this encounter Admitting Diagnoses Diagnosis Atrial flutter with rapid ventricular response (HCC) Atrial flutter in this encounter Administered Medications Action Date Dose Rate Site Medication Order MAR Action 10/01/2018 12:10 PM TIN CONTAINER STRA[employer]ENER 650 mg acetaminophen (TYLENOL) tablet 650 mg [...] juice., 10 mg Given 10/01/2018 10:03 AM TIN CON[employer]ER STRA[employer]ENER 10 mg Given 09/30/2018 5:47 PM TIN CON[employer]ER [employer]ENER 10/02/2018 10:13 AM CDT 81 mg aspirin EC tablet 81 mg Given 81 mg, Oral, DAILY, First dose on Wed10/01/18 at 0900, Until Discontinued 81 mg Given 10/01/2018 10:04 AM TIN CON[employer]ER [employer]ENER 10/01/2018 8:37 PM [employer]IN CON[employer]ER [employer]ENER 80 mg atorvastatin (LIPITOR) tablet 80 mg Given 80 mg, Oral, AT BEDTIME DAILY, First dose on Wed09/30/18 at 2100, Until Discontinued 80 mg Given 09/30/2018 9:05 PM TIN CON[employer]ER [employer]ENER 10/02/2018 10:13 AM CDT 5,000 Units cholecalciferol (VITAMIN D-3) tablet Given 5,000 Units 5,000 Units, Oral, DAILY, First dose on Wed10/01/18 at 1245, Until Discontinued 5,000 Units Given 10/01/2018 12:10 PM [employer]IN CON[employer]ER [employer]ENER 10/02/2018 6:07 AM CDT 120 mg Abdominal [...] mg Abdominal Tissue Given 10/01/2018 5:48 PM TIN CON[employer]ER [employer]ENER 120 mg Abdominal Tissue Given 10/01/2018 6:05 AM TIN CON[employer]ER [employer]ENER 10/02/2018 10:13 AM CDT 0.5 mg estradiol (ESTRACE) tablet 0.5 mg Given 0.5 mg, Oral, DAILY, First dose on Wed10/01/18 at 0900, Until Discontinued 0.5 mg Given 10/01/2018 10:05 AM [employer]ER [employer] metoprolol tartrate (LOPRESSOR) tablet 50 mg 50 mg, Oral, TWICE DAILY, First dose on Wed10/01/18 at 2100, Until Discontinued, Hold for heart rate < 60 bpm Hold if SBP less 100, 10/01/2018 8:37 PM [employer]ER [employer] 10 mg montelukast (SINGULAIR) tablet 10 mg Given 10 mg, Oral, AT BEDTIME DAILY, First dose on Wed09/30/18 at 2100, Until Discontinued 10 mg Given 09/30/2018 9:05 PM [employer]IN CON[employer]ER [employer]ENER 09/30/2018 10:15 AM [employer]IN CON[employer]ER [employer]ENER 150 Units ONAbotulinum toxin A (BOTOX) injection Given INTRA-PROCEDURE MED, Starting Wed09/30/18 at 1026, Until Wed09/30/18 at 1037, Intra-op 10/02/2018 10:13 AM CDT 150 mg sertraline (ZOLOFT) tablet 150 mg Given 150 mg, Oral, EVERY MORNING, First dose on 10/01/18 at 0800, Until Discontinued 150 mg Given 10/01/2018 10:04 AM TIN [employer]ER [employer] 09/30/2018 10:26 AM [employer]IN [employer]ER [employer] 3,000 mL sodium chloride 0.9 % irrigation bag Given INTRA-PROCEDURE MED, Starting Wed09/30/18 at 1026, Until Wed09/30/18 at 1037, Intra-op 10/01/2018 8:37 PM [employer]IN [employer]ER [employer] 50 mg traZODone (DESYREL) tablet 50 mg Given 50 mg, Oral, AT BEDTIME DAILY, First dose on Wed09/30/18 at 2100, Until Discontinued 50 mg Given 09/30/2018 9:05 PM [employer]IN CON[employer]ER [employer]ENER 10/02/2018 10:14 AM CDT 1 tablet triamterene-hydrochlorothiazide Given (MAXZIDE) 37.5-25 mg tablet 1 tablet 1 tablet, Oral, EVERY MORNING, First dose on 10/01/18 at 0800, Until Discontinued 1 tablet Given 10/01/2018 10:04 AM TIN CON[employer]ER STRA[employer]ENER in this encounter
--- OUTSIDE RECORDS SUMMARY | 2018-10-09 22:01 | XMS REPORT | Continuity of Care Document ---
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 17:25:00 DIS Inpatient ANAY DARNELL DO [facility] 4TH DYSARTHRIA,UTI [id number] 12/22/2016 09:22:00 12/22/2016 23:59:59 CLS Outpatient MANN KINGSLEY ANAY [facility] RAD Z12.31 [id number] 11/27/2016 11:29:00 11/27/2016 13:31:00 DIS Outpatient JCAOBO VALENCIA MD [facility] ENDO HISTORY OF POLYPS [id number] 11/24/2016 05:46:00 11/24/2016 14:11:00 DIS Outpatient JACOBO VALENCIA MD [facility] PREOP HISTORY OF POLYPS [id number] 06/26/2016 15:31:00 06/26/2016 23:59:59 CLS Outpatient RASHAUN HORN [facility] LAB FEVER,LOW GRADE [id number] 06/04/2016 07:00:00 06/05/2016 10:45:00 DIS Outpatient JACOBO VALENCIA MD [facility] SDC INCISIONAL HERNIA [id number] 05/28/2016 13:11:00 05/28/2016 13:50:00 DIS Outpatient JACOBO VALENCIA MD [facility] PREOP INCISIONAL HERNIA [id number] 12/16/2015 09:30:00 12/16/2015 23:59:59 CLS Outpatient DARNELL DO ANAY [facility] RAD SCREENING [id number] 04/10/2015 02:40:00 04/10/2015 04:53:00 DIS Emergency RENÉ KATE MD [facility] ER POSS KIDNEY INFECTION [id number] 01/17/2015 07:48:00 01/17/2015 23:59:59 CLS Outpatient LISA OVALLE FACCQAMAR FACP CCDS [facility] CARD HTN,HLP, [id number] 01/09/2015 08:17:00 01/09/2015 23:59:59 CLS Outpatient JACOBO VALENCIA MD [facility] RAD REFLUX [id number] 12/13/2014 10:49:00 12/13/2014 23:59:59 CLS Outpatient MANN KINGSLEY ANAY [facility] RAD SCREENING [id number] 06/15/2014 12:07:00 06/15/2014 14:06:00 DIS Emergency LINSEY LOERA [employer]CREATION 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 SPECIALIST [facility] ER FALL [id number] 03/05/2014 13:48:00 03/05/2014 23:59:59 CLS Outpatient RASHAUN HORN [facility] CARD CAD HTN HYPLIPIDEMIA [id number] 12/12/2013 11:16:00 12/12/2013 23:59:59 CLS Outpatient DARNELL DO ANAY [facility] RAD ROUTINE [id number] 06/21/2013 09:36:00 07/12/2013 14:38:00 DIS Outpatient CLEOPATRA TARIQ MD [facility] REHAB TOTAL HIP REPLACEMENT [id number] 12/06/2012 09:11:00 12/06/2012 23:59:59 CLS Outpatient ANAY DARNELL DO [facility] RAD SCREENING [id number] 11/25/2012 12:58:00 11/29/2012 08:52:00 DIS Outpatient KIZZY RODRIGUEZ Jigar DOMINGO [facility] REHAB S/P L TKR [id number] 09/23/2012 11:20:00 Document Registration [id number] 09/14/2012 06:12:00 Document Registration [id number] 09/08/2012 09:54:00 Document Registration [id number] 09/01/2012 13:14:00 Document Registration [id number] 07/05/2012 14:15:00 Document Registration [id number] 06/18/2012 12:31:00 Document Registration [id number] 06/16/2012 21:37:00 Document Registration [id number] 04/10/2012 08:43:00 Document Registration [id number] 01/13/2012 10:41:00 Document Registration [id number] 11/04/2011 09:26:00 Document Registration [id number] 09/04/2011 13:44:00 Document Registration [id number] 05/14/2011 15:42:00 Document Registration [id number] 05/12/2011 13:31:00 Document Registration [id number] 03/09/2011 06:27:00 Document Registration [id number] 03/03/2011 08:07:00 Document Registration [id number] 01/27/2011 10:49:00 Document Registration [id number] 01/23/2011 07:28:00 Document Registration [id number] 01/19/2011 08:56:00 Document Registration [id number] 01/16/2011 21:07:00 Document Registration [id number] 08/22/2010 12:50:00 Document Registration [id number] 08/14/2010 05:45:00 Document Registration [id number] 08/07/2010 15:18:00 Document Registration [id number] 07/29/2010 07:52:00 Document Registration [id number] 01/15/2010 12:57:00 Document Registration [id number] 12/26/2009 08:42:00 Document Registration [id number] 04/10/2015 09:00:09 ACT Document Registration
[2018-10-09] MEDS ORDERED: NS IV 1000 ML 1,000 ML IV SCH ×2 (22:13)
[2018-10-09 22:23] LABS: BASOPHILS % (AUTO) 0 % (0-10); EOSINOPHILS # (AUTO) 0.2 10^3/uL (0.0-0.3); EOSINOPHILS % (AUTO) 2 % (0-10); HEMATOCRIT 42 % (35-52); HEMOGLOBIN 14.1 G/DL (11.5-16.0); LYMPHOCYTES # (AUTO) 2.3 X 10^3 (1.0-4.0); LYMPHOCYTES % (AUTO) 21 % (12-44); MEAN CORPUSCULAR HEMOGLOBIN 29 PG (25-34); MEAN CORPUSCULAR HGB CONC 33 G/DL (32-36); MEAN CORPUSCULAR VOLUME 87 FL (80-99); MEAN PLATELET VOLUME 9.7 FL (7.4-10.4); MONOCYTES # (AUTO) 0.9 X 10^3 (0.0-1.0); MONOCYTES % (AUTO) 8 % (0-12); NEUTROPHILS # (AUTO) 7.7 X 10^3 (1.8-7.8); NEUTROPHILS % (AUTO) 69 % (42-75); PLATELET COUNT 313 10^3/uL (130-400); RED CELL DISTRIBUTION WIDTH 14.4 % (10.0-14.5); WHITE BLOOD COUNT 11.2 10^3/uL (4.3-11.0)
--- NOTE | 2018-10-09 22:24 | ED Cardiac General ---
History of Present Illness General Stated Complaint: HEART RATE RACING Source: patient, family (son) Exam Limitations: no limitations History of Present Illness Date Seen by Provider: Oct 09, 2018 Time Seen by Provider: 21:59 Initial Comments Patient presents by private conveyance with chief complaint of racing heart today. She's been expansion this intermittently over the past couple days. She has a history of paroxysmal atrial fibrillation and was here a week ago with atrial fibrillation and rapid ventricular response. At that time her heart control medications were changed and now she is on diltiazem cr 240 and flecainide 100 mg twice a day. She's not having any chest pain cough fevers chills nausea vomiting diarrhea or dysuria. She does have a history of incontinence because last week she got out of [facility] after having spent 8 days for a bladder repair with Botox. She says it has not helped yet because she is still having incontinence of urine. She is known to Dr. Ang. She is on Eliquis. Allergies and Home Medications Allergies Coded Allergies: cephalexin (Verified Allergy, Unknown, 10/02/18) Home Medications Acetaminophen 500 Mg Tablet, 500-1,000 MG PO Q6H PRN for PAIN-MILD, (Reported) Albuterol Sulfate 18 Gm Hfa.aer.ad, 2 PUFF INH Q4H PRN for SHORTNESS OF BREATH, (Reported) Amlodipine Besylate/Benazepril 1 Each Capsule, 1 CAP PO DAILY, (Reported) Apixaban 5 Mg Tablet, 5 MG PO BID, (Reported) Aspirin 81 Mg Tablet.dr, 81 MG PO DAILY, (Reported) Atorvastatin Calcium 20 Mg Tablet, 20 MG PO HS, (Reported) Cholecalciferol 5,000 Unit Capsule, 5,000 UNIT PO DAILY, (Reported) Diltiazem HCl 240 Mg Cap.er.24h, 240 MG PO DAILY Prescribed by: RASHAUN HORN on 10/03/18 1323 Estradiol 0.5 Mg Tablet, 0.5 MG PO DAILY, (Reported) Estradiol 42.5 Gm Cream.appl, VG HumauTh, (Reported) Flecainide Acetate 100 Mg Tablet, 100 MG PO BID Prescribed by: RASHAUN HORN on 10/03/18 1323 Fluticasone Propionate 16 Gm [place].susp, 2 SPRAYS NS DAILY PRN for ALLERGIES, ( Reported) Fluticasone/Salmeterol 1 Each Blst.w.dev, 1 PUFF INH BID PRN for SHORTNESS OF BREATH, (Reported) Montelukast Sodium 10 Mg Tablet, 10 MG PO HS, (Reported) Sertraline HCl 100 Mg Tablet, 150 MG PO DAILY, (Reported) TAKES 1 & 1/2 (100MG) TABLET Trazodone HCl 50 Mg Tablet, 50 MG PO HS, (Reported) Triamterene/Hydrochlorothiazid 1 Each Tablet, 1 TAB PO DAILY, (Reported) Patient Home Medication List Home Medication List Reviewed: Yes Review of Systems Review of Systems Constitutional: No chills, No fever, No malaise EENTM: No Blurred Vision, No Double Vision Respiratory: Denies Cough, Denies Shortness of Air Cardiovascular: See HPI; Denies Chest Pain, Denies Edema, Denies Irregular Heart Rate; Palpitations; Denies Syncope Gastrointestinal: Denies Abdomen Distended, Denies Abdominal Pain, Denies Constipated, Denies Diarrhea, Denies Nausea Genitourinary: Denies Burning, Denies Discharge, Denies Frequency, Denies Flank Pain; Incontinence Musculoskeletal: No back pain, No joint pain Skin: No pruritus, No rash Past Phkwnax-Bvrlpm-Awkqxt Hx Patient Social History Alcohol Use: Denies Use Recreational Drug Use: No Smoking Status: Never a Smoker 2nd Hand Smoke Exposure: No Recent Foreign Travel: No Contact w/Someone Who Travel: No Recent Hopitalizations: Yes (RELEASED TODAY FROM P/O BLADDER SX ON 09/30/18) Immunizations Up To Date Tetanus Booster (TDap): Less than 5yrs Date of Pneumonia Vaccine: May 04, 2017 Date of Influenza Vaccine: May 04, 2018 Seasonal Allergies Seasonal Allergies: No Past Medical History Surgeries: Yes (HIATAL HERNIA, L TKR, R HIP REPLACEMENT, BLADDER x8, BILAT FOOT SX) Bladder Surgery, Gallbladder, Hysterectomy, Joint Replacement, Orthopedic Respiratory: Yes Asthma, Sleep Apnea Currently Using CPAP: Yes Cardiac: Yes High Cholesterol, Hypertension Neurological: No Reproductive Disorders: No [employer] OUT[employer] 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 History: Menopausal Sexually Transmitted Disease: No Genitourinary: No Bladder Infection, UTI-Chronic Gastrointestinal: Yes Abdominal Hernia, Diverticulosis Musculoskeletal: Yes Arthritis Endocrine: No Diabetes, Non-Insulin dep Cataract Loss of Vision: Bilateral Hearing Impairment: Denies Cancer: No Psychosocial: Yes Depression Integumentary: No Blood Disorders: No Family Medical History Arthritis 19 MOTHER Cataracts 19 FATHER 19 MOTHER Colon cancer 19 FATHER Deafness or hearing loss 19 FATHER Dementia 19 FATHER FH: macular degeneration 19 MOTHER FH: prostate cancer 19 FATHER FH: skin cancer 19 FATHER Gout 19 MOTHER Hypertension 19 FATHER 19 MOTHER Myocardial infarction 19 FATHER 19 MOTHER Physical Exam Vital Signs Vital Signs - First Documented 10/09/18 21:55 Temp 99.6 Pulse 115 Resp 20 B/P (MAP) 135/84 (101) O2 Delivery Room Air Capillary Refill : Height, Weight, BMI Height: 5'7.00" Weight: 270lbs. 3.0oz. 122.540213ew; 42.0 BMI Method:Stated General Appearance: No Apparent Distress, Obese HEENT: PERRL/EOMI, Normal ENT Inspection, Pharynx Normal, Moist Mucous Membranes Neck: Full Range of Motion, Normal Inspection, Non Tender, Supple Respiratory: Chest Non Tender, Lungs Clear, Normal Breath Sounds, No Accessory Muscle Use, No Respiratory Distress Cardiovascular: Regular Rate, Rhythm, No Murmur, Normal Peripheral Pulses, Tachycardia (120) Gastrointestinal: Normal Bowel Sounds, Non Tender, Soft Extremity: Normal Inspection, No Pedal Edema Neurologic/Psychiatric: Alert, Oriented x3, No Motor/Sensory Deficits Skin: Normal Color, Warm/Dry Focused Exam Lactate Level 10/09/18 22:10: Lactic Acid Level 1.02 Lactic Acid Level Laboratory Tests Test 10/09/18 22:10 Lactic Acid Level 1.02 MMOL/L (0.50-2.00) Progress/Results/Core Measures Results/Orders Lab Results Laboratory Tests Test 10/09/18 22:10 10/09/18 22:20 Range/Units White Blood Count 11.2 H 4.3-11.0 10^3/uL Red Blood Count 4.88 4.35-5.85 10^6/uL Hemoglobin 14.1 11.5-16.0 G/DL Hematocrit 42 35-52 % Mean Corpuscular Volume 87 80-99 FL Mean Corpuscular Hemoglobin 29 25-34 PG Mean Corpuscular Hemoglobin Concent 33 32-36 G/DL Red Cell Distribution Width 14.4 10.0-14.5 % Platelet Count 313 130-400 10^3/uL Mean Platelet Volume 9.7 7.4-10.4 FL Neutrophils (%) (Auto) 69 42-75 % Lymphocytes (%) (Auto) 21 12-44 % Monocytes (%) (Auto) 8 0-12 % Eosinophils (%) (Auto) 2 0-10 % Basophils (%) (Auto) 0 0-10 % Neutrophils # (Auto) 7.7 1.8-7.8 X 10^3 Lymphocytes # (Auto) 2.3 1.0-4.0 X 10^3 Monocytes # (Auto) 0.9 0.0-1.0 X 10^3 Eosinophils # (Auto) 0.2 0.0-0.3 10^3/uL Basophils # (Auto) 0.0 0.0-0.1 10^3/uL Prothrombin Time 12.2 12.2-14.7 SEC INR Comment 0.9 0.8-1.4 Activated Partial Thromboplast Time 30 24-35 SEC Sodium Level 139 135-145 MMOL/L Potassium Level 3.7 3.6-5.0 MMOL/L Chloride Level 104 98-107 MMOL/L Carbon Dioxide Level 23 21-32 MMOL/L Anion Gap 12 5-14 MMOL/L Blood Urea Nitrogen 21 H 7-18 MG/DL Creatinine 1.02 0.60-1.30 MG/DL Estimat Glomerular Filtration Rate 53 BUN/Creatinine Ratio 21 Glucose Level 140 H 70-105 MG/DL Lactic Acid Level 1.02 0.50-2.00 MMOL/L Calcium Level 9.8 8.5-10.1 MG/DL Corrected Calcium 9.6 8.5-10.1 MG/DL Total Bilirubin 0.6 0.1-1.0 MG/DL Aspartate Amino Transf (AST/SGOT) 22 5-34 U/L Alanine Aminotransferase (ALT/SGPT) 39 0-55 U/L Alkaline Phosphatase 157 H 40-136 U/L Troponin I < 0.028 <0.028 NG/ML B-Type Natriuretic Peptide 13.9 <100.0 PG/ML Total Protein 7.3 6.4-8.2 GM/DL Albumin 4.3 3.2-4.5 GM/DL Urine Color YELLOW Urine Clarity CLEAR Urine pH 6.5 5-9 Urine Specific [place] 1.010 L 1.016-1.022 Urine Protein NEGATIVE NEGATIVE Urine Glucose (UA) NEGATIVE NEGATIVE Urine Ketones NEGATIVE NEGATIVE Urine Nitrite NEGATIVE NEGATIVE Urine Bilirubin NEGATIVE NEGATIVE Urine Urobilinogen NORMAL NORMAL MG/DL Urine Leukocyte Esterase NEGATIVE NEGATIVE Urine RBC (Auto) NEGATIVE NEGATIVE Urine RBC NONE /HPF Urine WBC NONE /HPF Urine Squamous Epithelial Cells 0-2 /HPF Urine Crystals NONE /LPF Urine Bacteria TRACE /HPF Urine Casts NONE /LPF Urine Mucus NEGATIVE /LPF Urine Culture Indicated CULTURE PENDING My Orders Orders - [place] Cbc With Automated Diff (10/09/18 22:13) Comprehensive Metabolic Panel (10/09/18 22:13) Blood Culture (10/09/18 22:13) Urinalysis (10/09/18 22:13) Urine Culture (10/09/18 22:13) Protime With Inr (10/09/18 22:13) Partial Thromboplastin Time (10/09/18 22:13) Saline Lock/Iv-Start (10/09/18 22:13) Saline Lock/Iv-Start (10/09/18 22:13) Ekg Tracing (10/09/18 22:13) Troponin I (10/09/18 22:13) O2 (10/09/18 22:13) Lactic Acid Analyzer (10/09/18 22:13) Ns Iv 1000 Ml (Sodium Chloride 0.9%) (10/09/18 22:13) Saline Lock/Iv-Start (10/09/18 22:13) Ns Iv 1000 Ml (Sodium Chloride 0.9%) (10/09/18 22:13) Chest Pa/Lat (2 View) (10/09/18 22:13) BNP (10/09/18 22:13) Flecainide Tablet (Tambocor Tablet) (10/09/18 23:52) Vital Signs/I&O 10/09/18 21:55 Temp 99.6 Pulse 115 Resp 20 B/P (MAP) 135/84 (101) O2 Delivery Room Air 10/10/18 00:00 Intake Total 1000 ml Balance 1000 ml Progress Progress Note : Time: 22:23 Progress Note Her pulse is regular and EKG demonstrates P waves. We'll treat this like sinus tachycardia. Her temperature is elevated at 99.5. Plan to get labs, urine give her a 20 mL/kg ideal body weight adjusted at 185 pounds fluid bolus of normal saline. Initial ECG Impression Date: Oct 09, 2018 Initial ECG Impression Time: 22:03 Initial ECG Rate: 117 Initial ECG Rhythm: Normal Sinus Initial ECG Intervals: QT (564) Initial ECG Impression: Normal, Nonspecific Changes Comment Sinus tachycardia with a right bundle branch block. Diagnostic Imaging Diagonstic Imaging: Xray Plain Films/CT/US/NM/MRI: chest Comments No acute cardiopulmonary processes a 2 view chest x-ray. Reviewed: Reviewed by Me Departure Impression Primary Impression: Mild dehydration Additional Impressions: Tachycardia History of atrial fibrillation Disposition: HOME, SELF-CARE Condition: Improved Departure-Patient Inst. Decision time for Depature: 00:18 Referrals: ANAY DARNELL DO (PCP) Primary Care Physician Patient Instructions: Dehydration, Adult (DC) Add. Discharge Instructions: Follow-up tomorrow at your scheduled appointment with primary care. Follow-up with cardiology. Return to the ER to begin to have a fast racing heart rate, palpitations, chest pain or other worrisome symptoms. BROCK GUERRA J Oct 09, 2018 22:24
[2018-10-09 22:31] LABS: BILIRUBIN,URINE NEGATIVE (NEGATIVE); CLARITY,URINE CLEAR; COLOR,URINE YELLOW; GLUCOSE, URINE (UA) NEGATIVE (NEGATIVE); KETONES,URINE NEGATIVE (NEGATIVE); LEUKOCYTE ESTERASE ,URINE NEGATIVE (NEGATIVE); NITRITE,URINE NEGATIVE (NEGATIVE); PH,URINE 6.5 (5-9); PROTEIN,URINE NEGATIVE (NEGATIVE); UROBILINOGEN,URINE NORMAL (NORMAL)
[2018-10-09 22:34] LABS: INR 0.9 (0.8-1.4); PROTHROMBIN TIME PATIENT 12.2 SEC (12.2-14.7)
[2018-10-09 22:37] LABS: BACTERIA,URINE TRACE /HPF; SQUAMOUS EPITHELIAL CELL,UR 0-2 /HPF
[2018-10-09 22:43] LABS: ALANINE AMINOTRANSFERASE 39 U/L (0-55); ALBUMIN 4.3 GM/DL (3.2-4.5); ALKALINE PHOSPHATASE 157 U/L (40-136); BILIRUBIN,TOTAL 0.6 MG/DL (0.1-1.0); BUN/CREATININE RATIO 21; CALCIUM 9.8 MG/DL (8.5-10.1); CARBON DIOXIDE 23 MMOL/L (21-32); CHLORIDE 104 MMOL/L (98-107); CREATININE SERUM 1.02 MG/DL (0.60-1.30); GFR ESTIMATED 53; GLUCOSE 140 MG/DL (70-105); POTASSIUM 3.7 MMOL/L (3.6-5.0); SODIUM 139 MMOL/L (135-145); TOTAL PROTEIN 7.3 GM/DL (6.4-8.2)
[2018-10-09] MEDS ORDERED: FLECAINIDE 100 MG (TAMBOCOR) TAB PO STA (23:52)
[2018-10-10 00:25] VITALS: BP 135/76
--- NOTE | 2018-10-10 07:04 | Diagnostic Imaging Report ---
INDICATION: Tachycardia. PA and lateral views of the chest are obtained. Comparison is made study of 10/03/2018. FINDINGS: Heart size and pulmonary vascularity are within normal limits. There is no pneumothorax or consolidation. There may be slight right perihilar atelectasis and/or pneumonitis. IMPRESSION: Slight right perihilar atelectasis and/or pneumonitis with otherwise unremarkable chest. Dictated by: Dictated on workstation # [id number]
== END 2018-10-10 00:28 | disposition home or self-care (01) ==
LOC: EDUNIT# 21:38 → ER 21:40
DX: E86.0 Dehydration (principal); R00.0 Tachycardia, unspecified; G47.30 Sleep apnea, unspecified; J45.909 Unspecified asthma, uncomplicated; E78.00 Pure hypercholesterolemia, unspecified; I10 Essential (primary) hypertension; I48.0 Paroxysmal atrial fibrillation; E11.9 Type 2 diabetes mellitus without complications; F32.9 Major depressive disorder, single episode, unspecified; Z87.19 Personal history of other diseases of the digestive system; Z96.641 Presence of right artificial hip joint; Z96.652 Presence of left artificial knee joint; Z80.0 Family history of malignant neoplasm of digestive organs; Z82.49 Family history of ischemic heart disease and other diseases of the circulatory system; Z80.42 Family history of malignant neoplasm of prostate; Z87.440 Personal history of urinary (tract) infections; Z87.448 Personal history of other diseases of urinary system; Z90.710 Acquired absence of both cervix and uterus; Z98.890 Other specified postprocedural states; Z88.1 Allergy status to other antibiotic agents; Z79.51 Long term (current) use of inhaled steroids; Z79.01 Long term (current) use of anticoagulants; Z79.82 Long term (current) use of aspirin
CPT/HCPCS: 36415; 71046; 80053; 81000; 83605; 83880; 84484; 85025; 85610; 85730; 87040; 87077; 87088; 87186; 93005; 96360

== ENCOUNTER 2018-10-16 13:08 | Emergency (ER) | payer MEDICARE ==
[~2018-10-16] VITALS: Ht 167.6 cm; Wt 117.9 kg
[2018-10-16] MEDS ORDERED: NS IV 500 ML 500 ML IV ONE (13:36)
[2018-10-16 13:41] LABS: BASOPHILS % (AUTO) 0 % (0-10); EOSINOPHILS # (AUTO) 0.2 10^3/uL (0.0-0.3); EOSINOPHILS % (AUTO) 2 % (0-10); HEMATOCRIT 43 % (35-52); HEMOGLOBIN 14.3 G/DL (11.5-16.0); LYMPHOCYTES # (AUTO) 1.7 X 10^3 (1.0-4.0); LYMPHOCYTES % (AUTO) 17 % (12-44); MEAN CORPUSCULAR HEMOGLOBIN 29 PG (25-34); MEAN CORPUSCULAR HGB CONC 33 G/DL (32-36); MEAN CORPUSCULAR VOLUME 87 FL (80-99); MEAN PLATELET VOLUME 9.1 FL (7.4-10.4); MONOCYTES # (AUTO) 0.6 X 10^3 (0.0-1.0); MONOCYTES % (AUTO) 6 % (0-12); NEUTROPHILS # (AUTO) 7.7 X 10^3 (1.8-7.8); NEUTROPHILS % (AUTO) 75 % (42-75); PLATELET COUNT 354 10^3/uL (130-400); RED CELL DISTRIBUTION WIDTH 14.5 % (10.0-14.5); WHITE BLOOD COUNT 10.2 10^3/uL (4.3-11.0)
[2018-10-16] MEDS ORDERED: DILTIAZEM 120 MG (CARDIZEM CD) CAP PO SCH (13:45)
[2018-10-16 13:55] LABS: ALBUMIN 4.1 GM/DL (3.2-4.5); BILIRUBIN,TOTAL 0.7 MG/DL (0.1-1.0); CALCIUM 9.2 MG/DL (8.5-10.1); CREATININE SERUM 1.09 MG/DL (0.60-1.30); MAGNESIUM 1.9 MG/DL (1.8-2.4); POTASSIUM 4.2 MMOL/L (3.6-5.0); TOTAL PROTEIN 7.1 GM/DL (6.4-8.2)
--- NOTE | 2018-10-16 14:04 | ED Cardiac General ---
History of Present Illness General Chief Complaint: Cardiac/General Problems Stated Complaint: HR OVER 100 FOR 4 HRS Source: patient Exam Limitations: no limitations History of Present Illness Date Seen by Provider: Oct 16, 2018 Time Seen by Provider: 13:18 Initial Comments Here with report of elevated heart rate and atrial fibrillation. Heart rates been over 100 for the last few hours. She had an episode yesterday and the day before the same that lasted about 2 hours. Denies chest pain with that. Does have known history of atrial fibrillation and is on oral anticoagulant. She has had adjustments of her meds and is currently on diltiazem ER 240 mg daily as well as flecainide 100 mg twice daily. Reports taking her medications as directed. Denies breathing problems or weakness. Reports eating and drinking okay. Timing/Duration: 4-6 hours, constant Severity: mild Location: central (palpitations) Activities at Onset: none Prior CP/Workup: cardiac cath, stress test Modifying Factors: improves with rest NTG SL SPOT WASHER: No ASA po SPOT WASHER: Yes Associated Systoms: No Chest Pain, No Cough, No Fever/Chills; Headaches ( Palpitations); No Nausea/Vomiting, No Shortness of Air, No Weakness Allergies and Home Medications Allergies Coded Allergies: cephalexin (Verified Allergy, Unknown, 10/02/18) Home Medications Acetaminophen 500 Mg Tablet, 500-1,000 MG PO Q6H PRN for PAIN-MILD, (Reported) Albuterol Sulfate 18 Gm Hfa.aer.ad, 2 PUFF INH Q4H PRN for SHORTNESS OF BREATH, (Reported) Amlodipine Besylate/Benazepril 1 Each Capsule, 1 CAP PO DAILY, (Reported) Apixaban 5 Mg Tablet, 5 MG PO BID, (Reported) Aspirin 81 Mg Tablet.dr, 81 MG PO DAILY, (Reported) Atorvastatin Calcium 20 Mg Tablet, 20 MG PO HS, (Reported) Cholecalciferol 5,000 Unit Capsule, 5,000 UNIT PO DAILY, (Reported) Diltiazem HCl 240 Mg Cap.er.24h, 240 MG PO DAILY Prescribed by: RASHAUN HORN on 10/03/18 1323 Estradiol 0.5 Mg Tablet, 0.5 MG PO DAILY, (Reported) Estradiol 42.5 Gm Cream.appl, [facility], (Reported) Flecainide Acetate 100 Mg Tablet, 100 MG PO BID Prescribed by: RASHAUN HORN on 10/03/18 1323 Fluticasone Propionate 16 Gm White Cloud.susp, 2 SPRAYS NS DAILY PRN for ALLERGIES, ( Reported) Fluticasone/Salmeterol 1 Each Blst.w.dev, 1 PUFF INH BID PRN for SHORTNESS OF BREATH, (Reported) Montelukast Sodium 10 Mg Tablet, 10 MG PO HS, (Reported) Sertraline HCl 100 Mg Tablet, 150 MG PO DAILY, (Reported) TAKES 1 & 1/2 (100MG) TABLET Trazodone HCl 50 Mg Tablet, 50 MG PO HS, (Reported) Triamterene/Hydrochlorothiazid 1 Each Tablet, 1 TAB PO DAILY, (Reported) Patient Home Medication List Home Medication List Reviewed: Yes Review of Systems Review of Systems Constitutional: see HPI; No chills, No fever EENTM: No Symptoms Reported Respiratory: No Symptoms Reported Cardiovascular: See HPI, Irregular Heart Rate, Palpitations Gastrointestinal: No Symptoms Reported Musculoskeletal: no symptoms reported Skin: no symptoms reported Psychiatric/Neurological: No Symptoms Reported Past Bafnwue-Oziyot-Cxtnui Hx Past Med/Social Hx: Reviewed Nursing Past Med/Soc Hx Patient Social History Alcohol Use: Denies Use Recreational Drug Use: No Smoking Status: Never a Smoker 2nd Hand Smoke Exposure: No Recent Foreign Travel: No Contact w/Someone Who Travel: No Recent Hopitalizations: Yes (RELEASED RECENTLY FROM P/O BLADDER SX ON 09/30/18 ) Immunizations Up To Date Tetanus Booster (TDap): Less than 5yrs Date of Pneumonia Vaccine: May 04, 2017 Date of Influenza Vaccine: May 04, 2018 Seasonal Allergies Seasonal Allergies: No Past Medical History Surgeries: Yes (HIATAL HERNIA, L TKR, R HIP REPLACEMENT, BLADDER x8, BILAT FOOT SX) Bladder Surgery, Gallbladder, Hysterectomy, Joint Replacement, Orthopedic Respiratory: Yes Asthma, Sleep Apnea Currently Using CPAP: Yes Cardiac: Yes High Cholesterol, Hypertension Neurological: No Reproductive Disorders: No 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 Sexually Transmitted Disease: No Genitourinary: No Bladder Infection, UTI-Chronic Gastrointestinal: Yes Abdominal Hernia, Diverticulosis Musculoskeletal: Yes Arthritis Endocrine: No Diabetes, Non-Insulin dep Cataract Loss of Vision: Bilateral Hearing Impairment: Denies Cancer: No Psychosocial: Yes Depression Integumentary: No Blood Disorders: No Family Medical History Reviewed Nursing Family Hx Arthritis 19 MOTHER Cataracts 19 FATHER 19 MOTHER Colon cancer 19 FATHER Deafness or hearing loss 19 FATHER Dementia 19 FATHER FH: macular degeneration 19 MOTHER FH: prostate cancer 19 FATHER FH: skin cancer 19 FATHER Gout 19 MOTHER Hypertension 19 FATHER 19 MOTHER Myocardial infarction 19 FATHER 19 MOTHER Physical Exam Vital Signs Vital Signs - First Documented 10/16/18 10/16/18 14:05 15:49 Temp 99.1 Pulse 108 Resp 18 B/P (MAP) 114/86 (95) Pulse Ox 92 Capillary Refill : Height, Weight, BMI Height: 5'7.00" Weight: 270lbs. 3.0oz. 122.226494ja; 42.0 BMI Method:Stated General Appearance: No Apparent Distress, WD/WN HEENT: PERRL/EOMI, Pharynx Normal Neck: Non Tender, Supple Respiratory: Lungs Clear, Normal Breath Sounds Cardiovascular: No Murmur, Irregularly Irregular, Tachycardia Gastrointestinal: Non Tender, Soft Extremity: Normal Range of Motion, Non Tender Neurologic/Psychiatric: Alert, Oriented x3 Skin: Normal Color, Warm/Dry Progress/Results/Core Measures Results/Orders Lab Results Laboratory Tests Test 10/16/18 13:28 Range/Units White Blood Count 10.2 4.3-11.0 10^3/uL Red Blood Count 4.94 4.35-5.85 10^6/uL Hemoglobin 14.3 11.5-16.0 G/DL Hematocrit 43 35-52 % Mean Corpuscular Volume 87 80-99 FL Mean Corpuscular Hemoglobin 29 25-34 PG Mean Corpuscular Hemoglobin Concent 33 32-36 G/DL Red Cell Distribution Width 14.5 10.0-14.5 % Platelet Count 354 130-400 10^3/uL Mean Platelet Volume 9.1 7.4-10.4 FL Neutrophils (%) (Auto) 75 42-75 % Lymphocytes (%) (Auto) 17 12-44 % Monocytes (%) (Auto) 6 0-12 % Eosinophils (%) (Auto) 2 0-10 % Basophils (%) (Auto) 0 0-10 % Neutrophils # (Auto) 7.7 1.8-7.8 X 10^3 Lymphocytes # (Auto) 1.7 1.0-4.0 X 10^3 Monocytes # (Auto) 0.6 0.0-1.0 X 10^3 Eosinophils # (Auto) 0.2 0.0-0.3 10^3/uL Basophils # (Auto) 0.0 0.0-0.1 10^3/uL Sodium Level 140 135-145 MMOL/L Potassium Level 4.2 3.6-5.0 MMOL/L Chloride Level 105 98-107 MMOL/L Carbon Dioxide Level 23 21-32 MMOL/L Anion Gap 12 5-14 MMOL/L Blood Urea Nitrogen 24 H 7-18 MG/DL Creatinine 1.09 0.60-1.30 MG/DL Estimat Glomerular Filtration Rate 49 BUN/Creatinine Ratio 22 Glucose Level 134 H 70-105 MG/DL Calcium Level 9.2 8.5-10.1 MG/DL Corrected Calcium 9.1 8.5-10.1 MG/DL Magnesium Level 1.9 1.8-2.4 MG/DL Total Bilirubin 0.7 0.1-1.0 MG/DL Aspartate Amino Transf (AST/SGOT) 19 5-34 U/L Alanine Aminotransferase (ALT/SGPT) 23 0-55 U/L Alkaline Phosphatase 105 40-136 U/L Troponin I < 0.028 <0.028 NG/ML Total Protein 7.1 6.4-8.2 GM/DL Albumin 4.1 3.2-4.5 GM/DL Thyroid Stimulating Hormone (TSH) 2.45 0.35-4.94 UIU/ML My Orders Orders - FARHEEN FOY MD Cbc With Automated Diff (10/16/18 13:22) Comprehensive Metabolic Panel (10/16/18 13:22) Magnesium (10/16/18 13:22) Saline Lock/Iv-Start (10/16/18 13:22) Ekg Tracing (10/16/18 13:22) Monitor-Rhythm Ecg Trace Only (10/16/18 13:22) Diltiazem Cd 24 Hr Capsule (Cardizem Cd (10/16/18 13:45) Saline Lock/Iv-Start (10/16/18 13:36) Ns Iv 500 Ml (Sodium Chloride 0.9%) (10/16/18 13:36) Troponin I (10/16/18 13:37) Thyroid Stimulating Hormone (10/16/18 14:15) Medications Given in ED Current Medications Medications Dose Ordered Sig/Lisa Route Start Time Stop Time Status Last Admin Dose Admin Sodium Chloride 500 ml @ 0 mls/hr Q0M ONCE IV 10/16/18 13:36 10/16/18 13:37 DC 10/16/18 13:56 500 MLS/HR Vital Signs/I&O 10/16/18 10/16/18 14:05 15:49 Temp 99.1 Pulse 108 107 Resp 18 18 B/P (MAP) 114/86 (95) 140/80 (100) Pulse Ox 92 Progress Progress Note : Progress Note Seen and evaluated. IV, labs, EKG, normal saline 1 L bolus and diltiazem 120 mg ER by mouth given. I did discuss the case with Dr. Randle. We will try the Cardizem by mouth. If this fails and will have to consider further evaluation and possibly hospitalization patient agrees. Monitor patient. 1630: Labs reviewed. Patient's heart rate now more in the range of 95-105. Patient has no chest pain. Overall feels well and feels comfortable to go home. I have rediscussed the case with Dr. Randle. We both agree that she is safe at this point with the understanding that she needs to return for any concerns including chest pain or increased or persistent heart rate. She does have appointment with Dr. Ang on Wednesday and will keep that. Her daughter is staying with her currently. We will initiate the diltiazem increased with to 240 in the morning and 120 in the evening. Discharged home with return precautions. Patient verbalize understanding instructions and agreement with plan. Initial ECG Impression Date: Oct 16, 2018 Initial ECG Impression Time: 13:21 Initial ECG Rate: 106 Initial ECG Rhythm: A Fib/Flutter Initial ECG Comparisson: Unchanged Comment Atrial flutter/fibrillation with rate of 106. LVH and right bundle branch block noted. Left axis deviation. Overall similar to 10/09/18 that overall lower rate. No evidence of ST elevation VT. Interpreted by me. Departure Impression Primary Impression: Atrial fibrillation Qualified Codes: I48.0 - Paroxysmal atrial fibrillation Disposition: 01 HOME, SELF-CARE Condition: Stable Departure-Patient Inst. Decision time for Depature: 16:41 Referrals: ANAY DARNELL DO (PCP/Family) Primary Care Physician Patient Instructions: Atrial Fibrillation (DC) Add. Discharge Instructions: All discharge instructions reviewed with patient and/or family. Voiced understanding. Take medications as directed. You will start new prescription of diltiazem ER 120 mg taking it in the evening and continuing her 240 mg dosing in the morning. Keep appointment with Dr. Ang on Wednesday as scheduled. Return for any chest pain, persistent increased heart rate greater than 110 bpm, weakness, breathing problems, sweating, nausea or vomiting or other concerns as needed. Continue other medications as previously prescribed. Scripts Diltiazem HCl (Diltiazem 24Hr ER) 120 Mg Cap.er.24h 120 MG PO DAILY, #14 CAP 0 Refills Prov: FARHEEN FOY MD 10/16/18 Copy Copies To 1: QAMAR ANG MD FACP [facility] FARHEEN FOY MD Oct 16, 2018 14:04
[2018-10-16 15:49] VITALS: BP 140/80
[2018-10-16 16:39] VITALS: BP 135/81
[2018-10-16] MEDS ORDERED: DILT-27 PO (16:45)
[2018-10-23] MEDS ORDERED: CIPR-225 PO (14:06)
[2018-10-23] MEDS ORDERED: NF-XOP-HFA INH (14:06)
[2018-10-23] MEDS ORDERED: PRD20T PO (14:40)
[2018-10-25] MEDS ORDERED: DILT-27 PO (09:57)
[2018-10-25] MEDS ORDERED: METO-370 PO (09:58)
== END 2018-10-16 16:51 | disposition home or self-care (01) ==
LOC: EDUNIT# 13:08 → ER 13:09
DX: I48.91 Unspecified atrial fibrillation (principal); J45.909 Unspecified asthma, uncomplicated; G47.30 Sleep apnea, unspecified; E78.00 Pure hypercholesterolemia, unspecified; E11.9 Type 2 diabetes mellitus without complications; I10 Essential (primary) hypertension; F32.9 Major depressive disorder, single episode, unspecified; Z87.440 Personal history of urinary (tract) infections; Z88.1 Allergy status to other antibiotic agents; Z87.19 Personal history of other diseases of the digestive system; Z80.0 Family history of malignant neoplasm of digestive organs; Z80.8 Family history of malignant neoplasm of other organs or systems; Z82.49 Family history of ischemic heart disease and other diseases of the circulatory system; Z80.42 Family history of malignant neoplasm of prostate; Z79.51 Long term (current) use of inhaled steroids; Z79.01 Long term (current) use of anticoagulants; Z79.82 Long term (current) use of aspirin; Z98.890 Other specified postprocedural states; Z96.641 Presence of right artificial hip joint; Z90.710 Acquired absence of both cervix and uterus
CPT/HCPCS: 36415; 80053; 83735; 84443; 84484; 85025; 93005; 93041; 96360

== ENCOUNTER 2018-10-18 10:36 | Emergency (ER) | payer MEDICARE ==
[~2018-10-18] VITALS: Ht 170.2 cm; Wt 117.9 kg
[~2018-10-18 10:36] MED LIST changes: +DILT-27 PO
--- OUTSIDE RECORDS SUMMARY | 2018-10-18 10:44 | XMS REPORT | Clinical Summary ---
Author Author [facility] Organization [facility] Address Unknown Phone Unavailable Care Team Providers Care Stummel Selector Name Role Phone Alan Ramachandran MD Unavailable Shefali Herring MD Unavailable Breanna Broderick DO PCP Jody Salazar RN Unavailable Unavailable Jass Loving MD Unavailable Carla Bernal MD Unavailable Unavailable Louise Knott MD Unavailable Park Han RN Unavailable Unavailable Breanna Lazo MD Unavailable Unavailable Marjorie Wilburn RN Unavailable Unavailable Gumaro Lynne MD Unavailable Glory Ford RN Unavailable Unavailable BeamanQuintin Canas RN Unavailable Unavailable Adeel Avila MD Unavailable Source Comments Some departments are not documenting in the electronic medical record. If you do not see the information that you expected, contact Release of Information in the Health Information Management department at [phone] for further assistance in locating additional records.[facility] Allergies No Known Allergies Medications End [...] mcg/actuation nasal sprays to sprayIndications: each nostril allergic rhinitis as directed daily as needed. Shake bottle [...] in a 24 hour period. Call your threat analyst if you have to use this medication. [...] in a 24 hour period. Call your threat analyst if you have to use this medication. Active Problems Problem Noted Date Coronary artery disease 10/02/2018 Hypertension 10/02/2018 Depression (disease) 10/02/2018 Hyperlipidemia 10/02/2018 Obstructive sleep apnea on CPAP 10/02/2018 Asthma 10/02/2018 Paroxysmal atrial fibrillation 10/01/2018 Morbid obesity 10/01/2018 Urge urinary incontinence 10/11/2017 Overview: Added automatically from request for surgery [id number] Urinary urgency 04/23/2017 Overview: Added automatically from request for surgery [id number] Urge incontinence 07/28/2012 Overview: Anticholinergic refractory urgency [...] botox 04/21/2016 - 150u botox 07/13/2016 - URU=405bM; not performing timed and double voiding Last [...] Inhaled Oxygen - Concentration 10/01/2018 2:00 PM [facility]ICAL SCIENCE [facility]IAISON Weight 121.6 kg (268 lb) 10/01/2018 2:00 PM [facility]ICAL SCIENCE LIAISON Height 170.2 cm (5' 7") 10/01/2018 2:00 PM MEDICAL SCIENCE LIAISON Body Mass Index 41.97 Plan of Treatment Care Team Description Date Type Specialty Shefali Herring MD [address] [facility] [address] [place] [address] [phone] Urge incontinence 03/31/2019 Hospital Encounter Shefali Herring MD [address] [facility] [address] [place] [address] [phone] CYSTOURETHROSCOPY WITH INJECTION FOR CHEMODENERVATION OF THE [...] + DOPPLER Routine 10/01/2018 ECHOCARDIOGRAM 2:00 PM [facility] THYROID STIMULATING Add on 10/01/2018 HORMONE-TSH 4:29 AM [facility]ICAL [facility]ENCE [facility]IA[facility] HEMOGLOBIN A1C Add on 10/01/2018 4:29 AM [facility] LIPID PROFILE Routine 10/01/2018 4:29 AM [facility]IA[facility] MAGNESIUM Routine 10/01/2018 4:29 AM [facility]IA[facility] COMPREHENSIVE METABOLIC Routine 10/01/2018 PANEL 4:29 AM MEDICAL [facility]ENCE [facility]IAISON CBC AND DIFF Routine 10/01/2018 4:29 AM MEDICAL SCIENCE LIAISON CBC STAT 09/30/2018 6:10 PM [facility]ICAL SCIENCE [facility]IAISON PROTIME INR (PT) STAT 09/30/2018 6:10 PM [facility] SCIENCE LIAISON TROPONIN-I STAT 09/30/2018 6:10 PM [facility]ICAL [facility]ENCE LIAISON ECG 12-LEAD Routine 09/30/2018 4:42 PM [facility]ICAL SCIENCE LIAISON TROPONIN-I 09/30/2018 2:13 PM [facility]ENCE [facility] PHOSPHORUS STAT 09/30/2018 2:13 PM [facility]ENCE [facility]IAISON MAGNESIUM STAT 09/30/2018 2:13 PM [facility]ICAL [facility]ENCE [facility]IAISON BASIC METABOLIC PANEL STAT 09/30/2018 2:13 PM [employer]ENCE [facility]IAISON CHEST SINGLE VIEW STAT 09/30/2018 2:11 PM [employer] [facility]ENCE [facility]IAISON CYSTOURETHROSCOPY WITH 09/30/2018 Urge urinary incontinence INJECTION FOR 10:25 AM MEDICAL [facility]ENCE [facility]IAISON CHEMODENERVATION OF THE BLADDER Special Needs 09/13 PER CHANGE FORM CASE MOVED FROM 09/27 TO 09/30 TO FOLLOW - Viola DEXTER RN ([id number]) TELEMETRY STRIPS-SCAN 09/30/2018 12:00 AM [facility]ICAL [facility]ENCE [facility]IAISON TELEMETRY STRIPS-SCAN 09/30/2018 12:00 AM MEDICAL SCIENCE LIAISON TELEMETRY STRIPS-SCAN 09/30/2018 12:00 AM MEDICAL SCIENCE LIAISON ECG-SCAN 09/30/2018 12:00 AM MEDICAL SCIENCE LIAISON ECG-SCAN 09/30/2018 12:00 AM MEDICAL SCIENCE LIAISON from Last 3 Months Results * CBC AND DIFF (10/02/2018 5:49 AM CDT) Only the most recent of 2 results within the time period is included. White Blood 6.4 4.5 - 11.0 K/UL [facility] Cells RBC 4.75 4.0 - 5.0 M/UL [facility] [...] - 2 % [facility] Absolute 3.80 1.8 - 7.0 K/UL [facility] Neutrophil Count Absolute Lymph 1.90 1.0 - 4.8 K/UL [facility] Count Absolute 0.40 0 - 0.80 K/UL [facility] Monocyte Count Absolute 0.20 0 - 0.45 K/UL [facility] Eosinophil Count Absolute 0.00 0 - 0.20 K/UL [facility] Basophil Count Specimen Blood Performing Organization Address City/[facility]/Zipcode Phone Number MAIN LAB [address] [place] [address] * MAGNESIUM (10/02/2018 5:49 AM CDT) Only the most recent of 3 results within the time period is included. Magnesium 1.8 1.6 - 2.6 mg/dL [facility] Specimen Blood Performing Organization Address City/[facility] Phone Number MAIN LAB [address] [place] [address] * COMPREHENSIVE METABOLIC PANEL (10/02/2018 5:49 AM CDT) Only the most recent of 2 results within the time period is included. Sodium 142 137 - 147 MMOL/L [facility] Potassium 3.5 3.5 - 5.1 MMOL/L [facility] Chloride 110 98 - 110 MMOL/L [facility] Glucose 108 (H) 70 - 100 MG/DL [facility] Blood Urea 17 7 - 25 MG/DL [facility] Nitrogen Creatinine 0.70 0.4 - 1.00 MG/DL [facility] [...] >60 >60 mL/min [facility] Comment: [place] The eGFR is not validated for use in drug dosing adjustments.Continue to use estimated creatinine clearance per dosing reference text.Please contact the Clinical Pharmacist for questions. eGFR >60 >60 mL/min [facility] [place] Comment: The eGFR is not validated for use in drug dosing adjustments.Continue to use estimated creatinine clearance per dosing reference text.Please contact the Clinical Pharmacist for questions. Specimen Blood Performing Organization Address City/State/Zipcode Phone Number [facility] [address] [place] [address] * 2-D + DOPPLER ECHOCARDIOGRAM (10/01/2018 2:00 PM MEDICAL SCIENCE LIAISON) IVS 0.64 0.6 - 0.9 cm OTHER OUTSIDE LAB LVIDD 6.40 3.8 - 5.2 cm OTHER OUTSIDE LAB LVIDS 3.92 2.2 - 3.5 cm OTHER OUTSIDE LAB PW 0.70 0.6 - 0.9 cm OTHER OUTSIDE LAB TDI e' 0.17 m/s OTHER OUTSIDE LAB Right 3.97 1.9 - 3.5 cm OTHER OUTSIDE Ventricular Mid LAB Diameter LA size 4.46 2.7 - 3.8 cm OTHER OUTSIDE LAB LA volume 86.68 22 - 52 mL OTHER OUTSIDE LAB Right Atrial 22.64 <18 cm2 OTHER OUTSIDE Area LAB Right Atrial 6.29 2.2 - 2.8 cm OTHER OUTSIDE Major Dimension LAB AV peak 1.86 m/s OTHER OUTSIDE velocity LAB MV Peak A [place] 0.73 m/s OTHER OUTSIDE LAB MV Peak E [place] 0.96 m/s OTHER OUTSIDE PW LAB Right 5.52 2.5 - 4.1 cm OTHER OUTSIDE Ventricular LAB Basal Diameter Right Heart 3.82 >1.7 cm OTHER OUTSIDE Systolic Mmode LAB TAPSE Sinus 2.77 2.4 - 3.6 cm OTHER OUTSIDE LAB BSA 2.4 m2 OTHER OUTSIDE LAB FS 38.75 28 - 44 % OTHER OUTSIDE LAB EF 65.88 % OTHER OUTSIDE LAB LV mass 168.28 66 - 150 g OTHER OUTSIDE LAB RWT 0.22 <=0.42 OTHER OUTSIDE LAB E/A ratio 1.32 OTHER OUTSIDE LAB E/E' ratio 5.65 OTHER OUTSIDE LAB Left Atrium 36.12 16 - 34 OTHER OUTSIDE Index LAB Cardiology Siemens [id number] OTHER OUTSIDE Ultrasound LAB Machine Left Ventricle 70.12 44 - 88 g/m2 OTHER OUTSIDE Mass Index LAB Left Ventricle 208.0 46 - 106 mL OTHER OUTSIDE Diastolic LAB Volume Left Ventricle 86.67 29 - 61 mL OTHER OUTSIDE Diastolic LAB Volume Index Left Ventricle 78.0 14 - 42 mL OTHER OUTSIDE Systolic Volume LAB Left Ventricle 32.50 8 - 24 mL OTHER OUTSIDE Systolic Volume LAB Index TV rest 37 mmHg OTHER OUTSIDE pulmonary LAB artery pressure Right Heart 0.150 m/s OTHER OUTSIDE Systolic TDI S' LAB ECHO EF 55 % OTHER OUTSIDE LAB Narrative Performed At OTHER OUTSIDE LAB LVEF=55% Moderate LV Dilatation Mild RV Dilatation On Some Contrast Views Moderate Left Atrial Dilatation Mild Mitral Valve Regurgitation No Pericardial Effusion PASP=37mmHg Performing Organization Address City/State/Zipcode Phone Number OTHER OUTSIDE LAB * THYROID STIMULATING HORMONE-TSH (10/01/2018 4:29 AM MEDICAL SCIENCE LIAISON) TSH 0.970 0.35 - 5.00 MCU/ML [facility] Performing Organization Address City/[facility]/Zipcode Phone Number [facility] [address] [place] [address] * HEMOGLOBIN A1C (10/01/2018 4:29 AM MEDICAL SCIENCE LIAISON) Hemoglobin A1C 6.0 4.0 - 6.0 % [facility] Comment: The ADA recommends that most patients with type 1 and type 2 diabetes maintain an A1c level <7%. Performing Organization Address City/State/Zipcode Phone Number [facility] [address] [place] [address] * LIPID PROFILE (10/01/2018 4:29 AM MEDICAL SCIENCE LIAISON) Cholesterol 123 <200 MG/DL [facility] Triglycerides 155 (H) <150 MG/DL [facility] HDL 37 (L) >40 MG/DL [facility] LDL 62 <100 MG/DL [facility] VLDL 31 MG/DL [facility] Non HDL 86 MG/DL [facility] Cholesterol Comment: Calculated non-HDL Cholesterol (non-HDL-C) indirectly measures LDL-C, Lp(a), IDL-C, and VLDL-C.It is a surrogate marker for Apoprotein B.Goal should be less than 130 mg/dL. Specimen Blood Performing Organization Address [facility]ode Phone Number MAIN LAB [address] [place] [phone] * TROPONIN-I (09/30/2018 6:10 PM MEDICAL SCIENCE LIAISON) Only the most recent of 2 results within the time period is included. Pathologist [facility] Troponin-I 0.01 0.0 - 0.05 NG/ML MAIN LAB Specimen Blood Performing Organization Address [facility] Cent[facility]ode Phone Number MAIN LAB [address] [place] [phone] * PROTIME INR (PT) (09/30/2018 6:10 PM MEDICAL SCIENCE LIAISON) Pathologist [facility] INR 1.0 0.8 - 1.2 MAIN LAB Specimen Blood Performing Organization Address [facility] Phone Number MAIN LAB [address] [place] [phone] * CBC (09/30/2018 6:10 PM MEDICAL SCIENCE LIAISON) Pathologist [facility] White Blood 10.2 4.5 - 11.0 K/UL MAIN LAB Cells RBC 5.06 (H) 4.0 - 5.0 M/UL [...] MAIN LAB Specimen Blood Performing Organization Address [facility] Centerconj Phone Number MAIN LAB [address] [place] [phone] * PHOSPHORUS (09/30/2018 2:13 PM MEDICAL SCIENCE LIAISON) Phosphorus 3.4Comment: NOTE NEW REFERENCE 2.0 - 4.5 MG/DL [facility] RANGES Specimen Blood Performing Organization Address [facility] Centercode Phone Number MAIN LAB [address] [place] [address] * BASIC METABOLIC PANEL (09/30/2018 2:13 PM MEDICAL SCIENCE LIAISON) Sodium 142 137 - 147 MMOL/L [facility] Potassium 4.2 3.5 - 5.1 MMOL/L [facility] Chloride 108 98 - 110 MMOL/L [facility] CO2 25 21 - 30 MMOL/L [facility] Anion Gap 9 3 - 12 [facility] Glucose 126 (H) 70 - 100 MG/DL [facility] Blood Urea 17 7 - 25 MG/DL [facility] Nitrogen Creatinine 0.76 0.4 - 1.00 MG/DL [facility] Calcium 9.6 8.5 - 10.6 MG/DL [facility] eGFR Non >60 >60 mL/min [facility] Comment: [place] The eGFR is not validated for use in drug dosing adjustments.Continue to use estimated creatinine clearance per dosing reference text.Please contact the Clinical Pharmacist for questions. eGFR >60 >60 mL/min [facility] [place] Comment: The eGFR is not validated for use in drug dosing adjustments.Continue to use estimated creatinine clearance per dosing reference text.Please contact the Clinical Pharmacist for questions. Specimen Blood Performing Organization Address City/State/Zipcode Phone Number MAIN LAB [address] [place] [address] * CHEST SINGLE VIEW (09/30/2018 2:11 PM MEDICAL SCIENCE LIAISON) Impressions Performed At Poor depth of inspiration [...] Interface, Radiant Results - 09/30/2018 2:15 PM MEDICAL SCIENCE LIAISON Single view of the chest Clinical history: [...] RESULTS * TELEMETRY STRIPS-SCAN (09/30/2018 12:00 AM MEDICAL SCIENCE LIAISON) Narrative Performed At Ordered by an unspecified provider. * TELEMETRY STRIPS-SCAN (09/30/2018 12:00 AM MEDICAL SCIENCE LIAISON) Narrative Performed At Ordered by an unspecified provider. * TELEMETRY STRIPS-SCAN (09/30/2018 12:00 AM MEDICAL SCIENCE LIAISON) Narrative Performed At Ordered by an unspecified provider. * ECG-SCAN (09/30/2018 12:00 AM MEDICAL SCIENCE LIAISON) Narrative Performed At Ordered by an unspecified provider. * ECG-SCAN (09/30/2018 12:00 AM MEDICAL SCIENCE LIAISON) Narrative Performed At Ordered by an unspecified provider. from Last 3 Months Insurance Type Payer Benefit Subscriber ID Effective Phone Address Plan / Dates Group Medicare MEDICARE MEDICARE xxxxxxxxxx 2012-P PART A AND resent B PPO FORMERLY [facility] xxxxxxxxxxx 2012-P resent (Home) [place] [address] Advance Directives Patient has advance care planning documents, and code status on file. For more information, please contact: [facility] [address] [place] [address] Date Inactivated Comments Code Status Date Activated 10/02/2018 3:17 PM Full Code 09/30/2018 4:42 PM Provider has discussed Code Status Yes w/Patient or Family?
--- OUTSIDE RECORDS SUMMARY | 2018-10-18 10:44 | XMS REPORT | Encounter Summary ---
Author Author [facility] Organization [facility] Address Unknown Phone Unavailable Care Team Providers Care Roller Helper Name Role Phone Alan Ramachandran MD Unavailable Shefali Herring MD Unavailable Breanna Broderick DO PCP Jody Salazar RN Unavailable Unavailable Jass Loving MD Unavailable Carla Bernal MD Unavailable Unavailable Louise Knott MD Unavailable Park Han RN Unavailable Unavailable Breanna Lazo MD Unavailable Unavailable Marjorie Wilburn RN Unavailable Unavailable Gumaro Lynne MD Unavailable Glory oFrd RN Unavailable Unavailable Quintin Ivan RN Unavailable Unavailable Adeel Avila MD Unavailable Reason for Visit * Auth/Cert Referred By Contact Referred To Contact Status Reason Specialty Diagnoses / Procedures Diagnoses Urge urinary incontinence Urge urinary incontinence [N39.41] P rocedures [place] CYSTOURETHROSCOPY INJ CHEMODENERVATION BLADDER CYSTOSCOPY WITH BOTOX INJECTION (150 UNITS) Encounter Details Care Team Description Date Type Department Nathanael Bradley SRNA 09/30/2018 Anesthesia [facility] OR [address] [address] Anesthesia Record Responsible Anesthesiologist Anesthesia Start Time Anesthesia Stop Time Procedure Name Pooja Morales MD 09/30/18 1002 09/30/18 1045 CYSTOSCOPY WITH BOTOX INJECTION (150 UNITS) (N/A ) Date Time Event Comment 932 AN Equip Check 2018 1001 1002 Anes Start 1005 An Start Data [...] oral airway (2); LMA; 4; 1 insertion Chriss, Joana, AUTHORIZATION NURSE attempt; Auscultation, End-tidal CO2; 09/30/18; 1037 documented in this encounter Social History Date Tobacco Use Types Packs/Day Years Used Never Smoker Smokeless Tobacco: Never Used Alcohol Use Drinks/Week oz/Week Comments No Sex Assigned at Date Recorded Not on file Industry Job Start Date Occupation Not on file Not on file Not on file Travel End Travel History Travel Start No recent travel history available. documented as of this encounter OR Notes * Anesthesia Postprocedure Evaluation - Susana Rojo MD - 09/30/2018 2:46 PM COLOR MAKER FORMULATOR Post-Anesthesia Evaluation Name: Mame Archer : 1945 Age: 73 y.o. Sex: female Procedure Date: 09/30/2018 Procedure: Procedure(s) with comments: CYSTOSCOPY WITH BOTOX INJECTION (150 UNITS) - CASE LENGTH 30 MINUTES Surgeon: Surgeon(s): Shefali Herring MD Jensen, Derek, MD Post-Anesthesia Vitals BP: 174/77 (09/30 1430) Pulse: 118 (09/30 1430) Respirations: 15 PER MINUTE (09/30 1430) SpO2: 93 % (09/30 1430) O2 Delivery: None (Room Air) (09/30 1430) SpO2 Pulse: 118 (09/30 1430) Post Anesthesia Evaluation Note Evaluation location: Pre/Post Patient participation: recovered; patient participated in evaluation Level of consciousness: alert Pain score: 1 Pain management: adequate Hydration: normovolemia Temperature: 36.0C - 38.4C Airway patency: adequate Perioperative Events Perioperative events: no Post-op nausea and vomiting: no PONV Postoperative Status Cardiovascular status: tachycardic (atrial fibrillation with HR in 110-120s) Respiratory status: spontaneous ventilation Follow-up needed: none Additional comments: Patient noted to be tachycardic to 120s and with symptomatic palpitations. EKG completed and notable for atrial fibrillation. Patient given a total of 25 mg IV metoprolol without slowing of HR, this was given in 5-10mg bolus doses. Her BP remained stable throughout. She did report the palpitations stopped after the IV metoprolol. Discussion with urology about admitting this patient for further monitoring. Internal medicine service to admit patient. AOD at bedside when patient signed out. Perioperative Events Perioperative Event: No Emergency Case Activation: No R MAKER FORMULATOR Associated attestation - Yobani Bahena MD - 09/30/2018 4:11 PM COLOR MAKER FORMULATOR ATTESTATION Post-Anesthesia Evaluation Attestation: I reviewed and agree the indicated post- anesthesia care was provided. Staff name: Yobani Bahena MD Date: 09/30/2018 * Anesthesia Preprocedure Evaluation - Pooja Morales MD - 09/30/2018 8:48 AM COLOR MAKER FORMULATOR Anesthesia Pre-Procedure Evaluation Name: Mame Archer : 1945 Age: 73 y.o. Sex: female Procedure Date: 09/30/2018 Procedure: Procedure(s) with comments: CYSTOSCOPY WITH BOTOX INJECTION (150 UNITS) - CASE LENGTH 30 MINUTES Physical Assessment Vital Signs (last filed in past 24 hours): Patient History No Known Allergies Current Medications Medication Directions albuterol (VENTOLIN HFA, PROAIR HFA, PROVENTIL HFA) [...] Take 1 Tab by mouth every morning. Scheduled Meds:Continuous Infusions: PRN and Respiratory Meds: Review of Systems/Medical History Patient summary reviewed Nursing notes reviewed Pertinent labs reviewed PONV Screening: Female gender, Non-smoker and Postoperative opioids No history of anesthetic complications No family history of anesthetic complications Pulmonary Asthma (Took Albuterol inhaler this AM) Sleep apnea Interventions: CPAP; compliant Cardiovascular Exercise tolerance: <4 METS (due to hip and knee issue) Beta Fabian therapy: Yes Beta blockers within 24 hours: Yes Hypertension, well controlled Coronary artery disease (last cardiac cath 5 years ago with mild CAD.) Dysrhythmias (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 See a telecommunications field engineer for tachycarida ) Hyperlipidemia Denies CP or SOB GI/Hepatic/Renal Hiatal hernia No GERD, Neuro/Psych Psychiatric history Depression Musculoskeletal Arthritis Endocrine/Other Obesity Physical Exam Airway Findings Mallampati: III TM distance: <3 FB Neck ROM: full Mouth opening: good Airway patency: adequate Dental Findings: Negative Cardiovascular Findings: Rhythm: regular Rate: normal Comments: Pt SB 40-50's. This is normal for pt. Pt took Metoprolol this AM. Pulmonary Findings: Breath sounds clear to auscultation. Abdominal Findings: Obese Abdomen soft Neurological Findings: Normal mental status Diagnostic Tests Hematology: Lab Results Component Value Date HGB 14.0 01/29/2012 HCT 43.1 01/29/2012 PLTCT 279 01/29/2012 WBC 8.6 01/29/2012 MCV 89.0 01/29/2012 MCH 29.0 01/29/2012 MCHC 33.0 01/29/2012 MPV 8.0 01/29/2012 RDW 14.2 01/29/2012 General Chemistry: Lab Results Component Value Date NA 139 01/29/2012 K 3.6 01/29/2012 CL 106 01/29/2012 CO2 23 01/29/2012 GAP 10 01/29/2012 BUN 17 01/29/2012 CR 0.72 01/29/2012 GLU 117 01/29/2012 CA 9.3 01/29/2012 Coagulation: Lab Results Component Value Date PTT 25.5 01/29/2012 INR 0.9 01/29/2012 Anesthesia Plan ASA score: 3 Plan: general Induction method: intravenous NPO status: acceptable Informed Consent Anesthetic plan and risks discussed with patient and spouse. Use of blood products discussed with patient and spouse Plan discussed with: anesthesiologist, AUTHORIZATION NURSE and SRNA. R MAKER FORMULATOR documented in this encounter Plan of Treatment Care Team Description Date Type Specialty Shefali Herring MD [address] [facility] [address] [place] [address] [phone] Urge incontinence 03/31/2019 Hospital Encounter Shefali Herring MD [address] [facility] [address] [place] [address] [phone] CYSTOURETHROSCOPY WITH INJECTION FOR CHEMODENERVATION OF THE BLADDER (BOTOX 150 UNITS) 03/31/2019 Surgery documented as of this encounter Results * ECG-SCAN (09/30/2018 12:00 AM COLOR MAKER FORMULATOR) Narrative Performed At Ordered by an unspecified provider. documented in this encounter Visit Diagnoses Not on filedocumented in this encounter Administered Medications Action Date Dose Rate Site Medication Order MAR Action 09/30/2018 10:21 AM COLOR MAKER FORMULATOR 2 g ceFAZolin (ANCEF) injection Given INTRA-PROCEDURE MED, Starting Wed09/30/18 at 1021, Until Wed09/30/18 at 1050, Anesthesia Intra-op 09/30/2018 10:25 AM COLOR MAKER FORMULATOR 4 mg dexamethasone (DECADRON) injection Given Intravenous, INTRA-PROCEDURE MED, Starting Wed09/30/18 at 1025, Until Wed09/30/18 at 1050, Anesthesia Intra-op 09/30/2018 10:12 AM COLOR MAKER FORMULATOR 2 drops dextran 70/hypromellose (GENTEAL TEARS; Given BION TEARS) ophthalmic solution INTRA-PROCEDURE MED, Starting Wed09/30/18 at 1012, Until Wed09/30/18 at 1050, Anesthesia Intra-op 09/30/2018 10:30 AM COLOR MAKER FORMULATOR 10 mg ePHEDrine 50 mg/mL 50 mg in sodium Bolus chloride PF 0.9% 5 mL IV syringe 5 mL, INTRA-PROCEDURE MED(CONT), Starting Wed09/30/18 at 1015, Until Wed09/30/18 at 1050, Anesthesia Intra-op 10 mg Bolus 09/30/2018 10:22 AM COLOR MAKER FORMULATOR 10 mg Given - New Bag 09/30/2018 10:15 AM COLOR MAKER FORMULATOR 09/30/2018 10:10 AM COLOR MAKER FORMULATOR 25 mcg fentaNYL citrate PF (SUBLIMAZE) Given injection INTRA-PROCEDURE MED, Starting Wed09/30/18 at 1010, Until Wed09/30/18 at 1050, Anesthesia Intra-op 09/30/2018 10:24 AM COLOR MAKER FORMULATOR 0.2 mg glycopyrrolate (ROBINUL) injection Given INTRA-PROCEDURE MED, Starting Wed09/30/18 at 1015, Until Wed09/30/18 at 1050, Anesthesia Intra-op 0.2 mg Given 09/30/2018 10:15 AM COLOR MAKER FORMULATOR 09/30/2018 11:33 AM COLOR MAKER FORMULATOR 1,000 mL 20 mL/hr lactated ringers infusion Given - New 1,000 mL, 1,000 mL, Intravenous, at 20 Bag mL/hr, CONTINUOUS, Starting Wed09/30/18 at 0930, Until Wed09/30/18 at 1642, Pre-Op Given - New Bag 09/30/2018 9:55 AM COLOR MAKER FORMULATOR 09/30/2018 10:10 AM COLOR MAKER FORMULATOR 80 mg lidocaine (PF) injection Given INTRA-PROCEDURE MED, Starting Wed09/30/18 at 1010, Until Wed09/30/18 at 1050, Anesthesia Intra-op 09/30/2018 10:25 AM COLOR MAKER FORMULATOR 4 mg ondansetron (ZOFRAN) injection Given Intravenous, INTRA-PROCEDURE MED, Starting Wed09/30/18 at 1025, Until Wed09/30/18 at 1050, Anesthesia Intra-op 09/30/2018 10:17 AM COLOR MAKER FORMULATOR 40 mg propofol (DIPRIVAN) injection Given INTRA-PROCEDURE MED, Starting Wed09/30/18 at 1010, Until Wed09/30/18 at 1050, Anesthesia Intra-op 140 mg Given 09/30/2018 10:10 AM COLOR MAKER FORMULATOR documented in this encounter
--- OUTSIDE RECORDS SUMMARY | 2018-10-18 10:44 | XMS REPORT | Encounter Summary ---
Author Author [facility] Organization [facility] Address Unknown Phone Unavailable Care Team Providers Care Shipping Support Clerk Name Role Phone Alan Ramachandran MD Unavailable [...] incontinence Urge urinary incontinence [N39.41] P rocedures [place] CYSTOURETHROSCOPY INJ CHEMODENERVATION BLADDER CYSTOSCOPY WITH BOTOX INJECTION (150 UNITS) Encounter Details Care Team Description Date Type Department Shefali Herring MD [address] [facility] [address] [place] [address] [phone] Gumaro Dietrich MD [address] [place] [address] [phone] Inocente Kate MD [address] [place] [address] Atrial fibrillation with rapid ventricular response (HCC) 09/30/2018 [facility] 10/02/2018 [place] [address] Social History Date Tobacco Use Types Packs/Day Years Used Never Smoker Smokeless Tobacco: Never Used Alcohol Use Drinks/Week oz/Week Comments No Sex Assigned at Date Recorded Not on file Industry Job Start Date Occupation Not on file Not on file Not on file Travel End Travel History Travel Start No recent travel history available. documented as of this encounter Last Filed Vital Signs Time Taken Vital Sign Reading 10/02/2018 8:18 AM CDT Blood Pressure 171/59 10/02/2018 8:18 AM CDT Pulse 56 10/02/2018 8:18 AM CDT Temperature 36.9 C (98.4 F) - Respiratory Rate - 10/02/2018 8:18 AM CDT Oxygen Saturation 93% - Inhaled Oxygen - Concentration 10/01/2018 2:00 PM DAIRY WORKER Weight 121.6 kg (268 lb) 10/01/2018 2:00 PM DAIRY WORKER Height 170.2 cm (5' 7") 10/01/2018 2:00 PM DAIRY WORKER Body Mass Index 41.97 documented in this encounter Functional Status Date of [...] the patient have a cognitive impairment: No documented as of this encounter Discharge Summaries * Breanna Houston - 10/02/2018 1:01 PM CDT Physician Discharge Summary Name: Mame Archer Date Of : 1945 Age: 73 years Admit date: 09/30/2018 Discharge date: 10/02/2018 Attending Physician: Inocente Kate MD Service: [facility] Q - [id number] Physician Summary completed by: Inocente [...] - 2-D + DOPPLER ECHOCARDIOGRAM Location Performed: [facility] Status: Final result Procedure Ordered By: Megan Cutler MD [phone] Referring Provider: Interpreting Physician: Aram Rojas MD Fellow: Location of Interp: [facility] Grouter Helper: Lindsey Diaz Machine: Shellcatch [id number] Indications: Atrial fibrillation Study done at patient [...] peak velocity 1.86 m/s Signed at 1538 DAIRY WORKER Brief Hospital Course: The patient was admitted [...] that she follow up with her primary track equipment operator and have a zio patch or some sort of longer-term atrial fibrillation monitoring in order to determine whether she needed long term care pharmacist anticoagulation or if afib was truly ollie [...] or concerns regarding your hospital stay. Call [phone] Discharging attending physician: INOCENTE KATE [[id number]] Regular Diet You have no dietary restriction. [...] in a 24 hour period. Call your track equipment operator if you have to use this [...] a follow up appointment with your primary track equipment operator in the next 2-4 weeks. Pending items needing follow up: 1. Ambulatory cardiac monitoring 2. Determination of anticoagulation timeline Signed: Inocente Kate MD 10/05/2018 cc: Primary Care Physician: Breanna Broderick Verified Referring physicians: Breanna Broderick DO Additional provider(s): Dr. Елена Ang [address] [place] [address] [phone] documented in this encounter Discharge Instructions * Patient Instructions* Karly Mcmillan RN - 09/30/2018 10:54 AM DAIRY WORKER Discharge Instructions: After Your Surgery Youve just [...] interact with your prescription medicines or other zjwq-vqi-ksblktl (OTC) medicines. Some prescription medicines have acetaminophen [...] of taking these medicines. Date Last Reviewed: 06/25/[id number] [employer]. [address] [place] [address], [place] [address]. All rights reserved. This information is not intended as a substitute for professional medical care. Always follow your healthcare professional's instructions. Y WORKER * Appointments* Inocente Kate MD - 10/02/2018 10:00 AM CDT Please schedule a follow up appointment with your primary track equipment operator in the next 2-4 weeks. * Pre-Anesthesia Patient Instructions* Lucille Gomez RN - 09/06/2018 12:11 PM DAIRY WORKER GENERAL INFORMATION Before you come to the [...] and any other valuables at home. The [facility] is not responsible for the loss or breakage of personal items. Remove nail italian, makeup and all jewelry (including piercings) before coming to the hospital. The morning of your procedure: brush your teeth and tongue do not smoke do not shave the area where you will have surgery What to bring to the hospital ID/ Insurance Card Disease And Insect Control Boss card Official documents for legal guardianship Copy of your Living Will, Advanced Directives, and/or Durable Power of Biomedical Service Engineer Small bag with a few personal belongings [...] do not receive a call, please call [phone] before 4:30pm or [phone] after 4:30pm. Notify us at [facility]: if you need to cancel your procedure if you are going to be late Arrival at the [facility] [address] [place] [address] Park in the [address] Parking Garage, located directly across from the main entrance to the hospital. Hog Room Supervisor parking is available from 7 AM to 4 PM Wednesday through Wednesday. Enter through the ground floor [facility] entrance and check in at the [...] if you need to provide a sample. Y WORKER * Pre-Anesthesia Medication Instructions* Lucille Gomez RN - 09/06/2018 12:13 PM DAIRY WORKER YOUR MEDICATIONS: albuterol (VENTOLIN HFA, PROAIR HFA, [...] with any medicine updates or questions. E-mail: [email or web address] Before going home from the hospital, please ask your doctor when you should re- start your medicines that were stopped before surgery. Y WORKER documented in this encounter Medications at Time of [...] in a 24 hour period. Call your track equipment operator if you have to use this [...] (MAXZIDE) 37.5/25 mouth every mg tablet morning. documented as of this encounter Progress Notes * Inocente Kate MD - 10/02/2018 1:01 PM CDT Discharge day note: Patient seen and examined on rounds. Vital signs stable. Physical exam unchanged from prior. Patient remains in sinus rhythm today. Discussed discharge plans. Patient given new prescriptions. Patient to follow-up with her outside track equipment operator for Zio patch. Return precautions discussed. Greater than 31 minutes spent in discharge planning including discussion with patient, placement of discharge orders, documentation of discharge summary. Inocente Kate MD [facility] Q- [id number] * Angle Montgomery RN - [...] Belia Hansen MD - 10/01/2018 5:16 PM DAIRY WORKER Cardiology progress note. Subjective: No acute events overnight. Patient converted to sinus rhythm. However she is sinus bradycardia currently. Current Facility-Administered Medications Medication Dose Route Frequency Provider Last Rate Last Dose acetaminophen (TYLENOL) tablet 650 mg 650 mg Oral Q6H PRN Gumrao Dietrich MD 650 mg at 10/01/18 1210 albuterol (PROAIR HFA, VENTOLIN HFA, or PROVENTIL HFA) inhaler 1-2 puff 1- 2 puff Inhalation Q6H PRN Gumaro Dietrich MD amLODIPine (NORVASC) tablet 10 mg 10 mg Oral QDAY Gumaro Dietrich MD 10 mg at 10/01/18 1003 aspirin EC tablet 81 mg 81 mg Oral QDAY Gumaro Dietrich MD 81 mg at 10/01/18 100 atorvastatin (LIPITOR) tablet 80 mg 80 mg [...] may not repeat in ?24 hours) - [id number] at least 3. Discussed benefits and risk for anti-correlation. Patient is agreeable to proceed with anticoagulation at least temporary for the next 6 weeks. She will follow with outpatient cardiology with the results of the monitor monitor. Consideration for implantable loop recorder with discussion with outpatient track equipment operator given 2 episodes of perioperative A. Fib to determine the longevity of anticoagulate. Y WORKER * Inocente Kate MD - 10/01/2018 11:33 AM DAIRY WORKER Progress Note - Medicine Today's Date: 10/01/2018 [...] due to age, sex, hypertension Taking metoprolol PROTECTIVE SIGNAL INSTALLER 100 mg twice daily Started on diltiazem and converted to sinus rhythm on 09/30. Now with bradycardia, asymptomatic. We will decrease metoprolol to 50 mg twice daily Continue therapeutic anticoagulation for now, okay to discharge on Eliquis Cardiology discussed flecainide for abortive therapy Patient to follow-up with her home track equipment operator for zio patch monitoring to determine long-term [...] patient and her granddaughter. Inocente Kate MD [facility] Q- 7052 __ Subjective: No acute overnight events. Patient [...] IV drip ( std conc) Stopped (10/01/18 022) PRN and Respiratory Meds:acetaminophen Q6H PRN, albuterol Q6H PRN, ondansetron ( ZOFRAN) IV Q6H PRN Vitals: Vital Signs: Last Filed Vital Signs: 24 Hour Range BP: 139/86 (10/01 0730) Temp: 36.4 C (97.5 F) (10/01 0800) Pulse: (P) 40 (10/01 1053) Respirations: (P) 18 PER MINUTE (10/01 1053) SpO2: 95 % (10/01 0902) O2 Delivery: [...] Testing (Last 24 hours) Glucose: (!) 112 (10/01/18428) Radiology and other Diagnostics Review: Pertinent radiology reviewed. Y WORKER * Liza Hendricks RN - 10/01/2018 10:43 AM DAIRY WORKER Patient takes 5,000u vitamin D daily. Currently not on SEP. Sent text page to [facility] to notify. Tracking # [id number] Y WORKER * Mary Rowley - 10/01/2018 2:20 AM DAIRY WORKER MP Swing 4 paged to notify that patient has been at lowest rate of cardizem drip for one hour, has converted to sinus bradycardia and is sustaining a HR of low 40's. Pt BP low 100s/50s and pt resting comfortably in bed. Per william OVALLE to DC drip at this time. RN will continue to monitor. Lynda Beltrán RN - 09/30/2018 5:18 PM DAIRY WORKER Patient arrived to room # (HC815*) via cart accompanied by RN. Patient transferred to the chair without assistance. Bedside safety checks completed. Initial patient assessment completed, refer to flowsheet for details. Admission skin assessment completed by: Lynda Sen Merle Gardner Pressure Injury Present on Hospital Admission [...] Doc Flowsheet for additional wound details. INTERVENTIONS: Y WORKER * Gumaro Dietrich MD - 09/30/2018 5:00 PM DAIRY WORKER Notified of preference for central line with esmolol infusion if duration anticipated to be prolonged. Since she has had minimal response to initial doses of esmolol, favor switching to Cardizem for rate control. Additionally, confirmed with her track equipment operator that she does not have a history of tachybradycardia syndrome and therefore a short acting agent is not the most important characteristic of the infused medication. Will switch to Cardizem with dose to titrate 5-15 mg to keep rate less than 110 greater than 60. Gumaro Dietrich MD Y WORKER * Lucille Gomez RN - 09/06/2018 12:06 PM DAIRY WORKER PAC phone triage completed with patient for [...] and copy of instructions emailed to her Y WORKER documented in this encounter H&P Notes * Gumaro Dietrich MD - 09/30/2018 2:13 PM DAIRY WORKER Admission H&P Department of Internal Medicine Assessment (current differential diagnosis) | Status Newonset atrial fibrillation with history of tachycardia (procedural physiologic stress v botulinum v ephedrine) | Asymptomatic, and the patient notes that historically had similar episodes.ERICH(2)DS(2)-VAsc score 3 and CVA risk ~3.2% per year for HTN, Age, Sex. Follows with a Food Analyst in [facility], and she notes she has had [...] 3:34 PM I spoke with her primary Food Analyst, who states after his note review that she has a history of palpitations, but no documented arrhythmia. Coronary artery disease | Asymptomatic. Prior to admission, on aspirin 81 mg daily. Her primary Food Analyst highlighted that in 2006 she had a catheterization that demonstrated mild coronary artery disease. RBBB | Not new. Noted on old EKG. Asthma | Controlled, with no evidence of exacerbation. Prior to admission, on Singulair and albuterol asneeded. Has not regularly needed it. Tolerates beta-coy PROTECTIVE SIGNAL INSTALLER with no bronchospasm. Urinary incontinence | Status [...] mg every afternoon. ADOLPH | On CPAP PROTECTIVE SIGNAL INSTALLER Morbid obesity | Body mass index is [...] CBC/INR TSH *I spoke with her Primary Food Analyst: Dr. Елена Ang [address] [place] [address] [phone] Pager (I spoke with Urology, who stated [...] peripheral arterial disease. I spoke with her track equipment operator, and he highlighted that she had a [...] REPLACEMENT Left 09/14/2012 HIP REPLACEMENT Right 05/25/2013 MO CYSTOURETHROSCOPY INJ CHEMODENERVATION BLADDER N/A 10/22/2015 CYSTOSCOPY, INTRAVESICAL BOTOX INJECTION (150Units) performed by Shefali Herring MD at Main OR/Periop MO CYSTOURETHROSCOPY INJ CHEMODENERVATION BLADDER N/A 04/21/2016 CYSTOSCOPY, INTRAVESICAL BOTOX INJECTION (150 UNITS) performed by Shefali Herring MD at Main OR/Periop ABDOMINAL HERNIA REPAIR 05/2016 MO NDSC NJX IMPLT MATRL URT&/BLDR NCK N/A 10/23/2016 CYSTOSCOPY, INJECTION BOTOX (150 UNITS) performed by Shefali Herring MD at Main OR/Periop [place] CYSTOURETHROSCOPY INJ CHEMODENERVATION BLADDER N/A 04/23/2017 CYSTOSCOPY, INJECTION BOTOX (150 UNITS) performed by Shefali Herring MD at Main OR/Periop CYSTOSCOPY N/A 09/28/2017 CYSTOSCOPY, INJECTION BOTOX (150 UNITS) performed by Shefali Herring MD at Main OR/Periop [place] CYSTOURETHROSCOPY INJ CHEMODENERVATION BLADDER N/A 03/29/2018 CYSTOSCOPY, [...] PACU I spoke directly with the Urologist. Y WORKER * Shefali Herring MD - 09/30/2018 9:48 AM DAIRY WORKER Admission History and Physical Examination Name: Mame [...] REPLACEMENT Left 09/14/2012 HIP REPLACEMENT Right 05/25/2013 MO CYSTOURETHROSCOPY INJ CHEMODENERVATION BLADDER N/A 10/22/2015 CYSTOSCOPY, INTRAVESICAL BOTOX INJECTION (150Units) performed by Shefali Herring MD at Main OR/Periop [place] CYSTOURETHROSCOPY INJ CHEMODENERVATION BLADDER N/A 04/21/2016 CYSTOSCOPY, INTRAVESICAL BOTOX INJECTION (150 UNITS) performed by Shefali Herring MD at Main OR/Periop ABDOMINAL HERNIA REPAIR 05/2016 MO NDSC NJX IMPLT MATRL URT&/BLDR NCK N/A 10/23/2016 CYSTOSCOPY, INJECTION BOTOX (150 UNITS) performed by Shefali Herring MD at Main OR/Periop [place] CYSTOURETHROSCOPY INJ CHEMODENERVATION BLADDER N/A 04/23/2017 CYSTOSCOPY, INJECTION BOTOX (150 UNITS) performed by Shefali Herring MD at Main OR/Periop CYSTOSCOPY N/A 09/28/2017 CYSTOSCOPY, INJECTION BOTOX (150 UNITS) performed by Shefali Herring MD at Main OR/Periop [place] CYSTOURETHROSCOPY INJ CHEMODENERVATION BLADDER N/A 03/29/2018 CYSTOSCOPY, [...] Pertinent radiology reviewed. Malcom Chaidez MD Pager [phone] ATTESTATION I personally performed the westfall portions of the E/M visit, discussed case with resident and concur with resident documentation of history, physical exam, assessment, and treatment plan unless otherwise noted. Staff name: Shefali Herring MD Y WORKER documented in this encounter Consult Notes * Megan Cutler MD - 09/30/2018 5:05 PM DAIRY WORKER Associated Order(s): CONSULT CARDIOLOGY PHYSICIAN STAFF CARDIOLOGY CONSULT NOTE Admission Date: 09/30/2018 Code Status: Full Code Reason for Consultation: New onset atrial fibrillation History of Present Illness: This is a 73 y.o. white female patient that was admitted to [facility] 2 undergo Botox injection of her bladder [...] was restored. Patient does follow-up with a track equipment operator in [place], [place]. She underwent a left heart catheterization in 2006, she was not found to have any significantly obstructive coronary artery disease. She was seen by her track equipment operator a few days ago and was found [...] another surgical procedure. Patient follows with a track equipment operator in [place], [place] and she does not have coronary [...] not convert to normal sinus rhythm this weekend, then she will undergo a T guided cardioversion on Wednesday. 7. Fasting lipid and liver profile 8. Risk factor modification, educational weight reduction, low-fat, low- cholesterol, low sugar and low carbohydrate diet 9. Patient will follow-up with her track equipment operator in her hometown. Megan Cutler MD Y WORKER documented in this encounter Miscellaneous Notes * Care [...] Carlo He MD - 10/01/2018 3:50 AM DAIRY WORKER Please page [phone] with any questions until 8am after that please page med private Q Y WORKER * Operative Report (Direct Entry) - Shefali Herring MD - 09/30/2018 10:25 AM DAIRY WORKER OPERATIVE REPORT Name: Mame Archer is a [...] a resident. Staff name: Shefali Herring MD documented in this encounter Plan of Treatment Care Team Description Date Type Specialty Shefali Herring MD [address] [facility]Med Pavilion L[address] [place] [address] Urge incontinence 03/31/2019 Hospital Encounter Shefali Herring MD [address] Ortho[facility]Med Pavilion [address] [place] [address] CYSTOURETHROSCOPY WITH INJECTION FOR CHEMODENERVATION OF THE BLADDER (BOTOX 150 UNITS) 03/31/2019 Surgery documented as of this encounter Procedures Comments Procedure Name Priority Date/Time Associated Diagnosis CBC AND DIFF Routine 10/02/2018 5:49 AM CDT MAGNESIUM Routine 10/02/2018 5:49 AM CDT COMPREHENSIVE METABOLIC Routine 10/02/2018 PANEL 5:49 AM CDT 2-D + DOPPLER Routine 10/01/2018 ECHOCARDIOGRAM 2:00 PM DAIRY WORKER CBC AND DIFF Routine 10/01/2018 4:29 AM DAIRY WORKER THYROID STIMULATING Add on 10/01/2018 HORMONE-TSH 4:29 AM DAIRY WORKER MAGNESIUM Routine 10/01/2018 4:29 AM DAIRY WORKER HEMOGLOBIN A1C Add on 10/01/2018 4:29 AM DAIRY WORKER LIPID PROFILE Routine 10/01/2018 4:29 AM DAIRY WORKER COMPREHENSIVE METABOLIC Routine 10/01/2018 PANEL 4:29 AM DAIRY WORKER TROPONIN-I STAT 09/30/2018 6:10 PM DAIRY WORKER PROTIME INR (PT) STAT 09/30/2018 6:10 PM DAIRY WORKER CBC STAT 09/30/2018 6:10 PM DAIRY WORKER ECG 12-LEAD Routine 09/30/2018 4:42 PM DAIRY WORKER TROPONIN-I 09/30/2018 2:13 PM DAIRY WORKER PHOSPHORUS STAT 09/30/2018 2:13 PM DAIRY WORKER MAGNESIUM STAT 09/30/2018 2:13 PM DAIRY WORKER BASIC METABOLIC PANEL STAT 09/30/2018 2:13 PM DAIRY WORKER CHEST SINGLE VIEW STAT 09/30/2018 2:11 PM DAIRY WORKER CYSTOURETHROSCOPY WITH 09/30/2018 Urge urinary incontinence INJECTION FOR 10:25 AM DAIRY WORKER CHEMODENERVATION OF THE BLADDER Special Needs 09/13 PER CHANGE FORM CASE MOVED FROM 09/27 TO 09/30 TO FOLLOW - CSesar DEXTER RN ([id number]) TELEMETRY STRIPS-SCAN 09/30/2018 12:00 AM DAIRY WORKER TELEMETRY STRIPS-SCAN 09/30/2018 12:00 AM DAIRY WORKER TELEMETRY STRIPS-SCAN 09/30/2018 12:00 AM DAIRY WORKER ECG-SCAN 09/30/2018 12:00 AM DAIRY WORKER documented in this encounter Results * MAGNESIUM (10/02/2018 5:49 AM CDT) Magnesium 1.8 1.6 - 2.6 mg/dL [facility] Specimen Blood Performing Organization Address [facility] Hospital[facility] Phone Number [facility] [address] [place] [address] * COMPREHENSIVE METABOLIC PANEL (10/02/2018 5:49 AM [...] >60 >60 mL/min [facility] Comment: [place] The eGFR is not validated for use in drug dosing adjustments.Continue to use estimated creatinine clearance per dosing reference text.Please contact the Clinical Pharmacist for questions. eGFR >60 >60 mL/min [facility] [place] Comment: The eGFR is not validated for use in drug dosing adjustments.Continue to use estimated creatinine clearance per dosing reference text.Please contact the Clinical Pharmacist for questions. Specimen Blood Performing Organization Address [facility] Hospital[facility] Phone Number [facility] [address] [place] [address] * CBC AND DIFF (10/02/2018 5:49 AM CDT) [facility] White Blood 6.4 4.5 - 11.0 K/UL [...] Basophil Count Specimen Blood Performing Organization Address City/State/Zipcode Phone Number MAIN LAB [address] [place] [phone] * 2-D + DOPPLER ECHOCARDIOGRAM (10/01/2018 2:00 PM DAIRY WORKER) [facility] IVS 0.64 0.6 - 0.9 cm OTHER [...] 34 OTHER OUTSIDE Index LAB Cardiology Siemens [id number] OTHER OUTSIDE Ultrasound LAB Machine Left Ventricle [...] * THYROID STIMULATING HORMONE-TSH (10/01/2018 4:29 AM DAIRY WORKER) TSH 0.970 0.35 - 5.00 MCU/ML [facility] Performing Organization Address City/State/Zipcode Phone Number [facility] [address] [place] [address] * HEMOGLOBIN A1C (10/01/2018 4:29 AM DAIRY WORKER) Hemoglobin A1C 6.0 4.0 - 6.0 % [facility] Comment: The ADA recommends that most patients with type 1 and type 2 diabetes maintain an A1c level <7%. Performing Organization Address [facility] Hospital[facility] Phone Number MAIN LAB [address] [place] [address] * MAGNESIUM (10/01/2018 4:29 AM DAIRY WORKER) Pathologist [facility] Magnesium 1.9 1.6 - 2.6 mg/dL [facility] Specimen Blood Performing Organization Address [facility] Phone Number MAIN LAB [address] [place] [address] * COMPREHENSIVE METABOLIC PANEL (10/01/2018 4:29 AM DAIRY WORKER) Pathologist [facility] Sodium 141 137 - 147 MMOL/L [facility] Potassium 3.6 3.5 - 5.1 MMOL/L [facility] Chloride 108 98 - 110 MMOL/L [facility] Glucose 112 (H) 70 - 100 MG/DL [facility] Blood Urea 15 7 - 25 MG/DL [facility] Nitrogen Creatinine 0.71 0.4 - 1.00 MG/DL [facility] [...] >60 >60 mL/min [facility] Comment: [place] The eGFR is not validated for use in drug dosing adjustments.Continue to use estimated creatinine clearance per dosing reference text.Please contact the Clinical Pharmacist for questions. eGFR >60 >60 mL/min [facility] [place] Comment: The eGFR is not validated for use in drug dosing adjustments.Continue to use estimated creatinine clearance per dosing reference text.Please contact the Clinical Pharmacist for questions. Specimen Blood Performing Organization Address [facility]/Zipcode Phone Number MAIN LAB [address] [place] [address] * CBC AND DIFF (10/01/2018 4:29 AM DAIRY WORKER) White Blood 9.1 4.5 - 11.0 K/UL [facility] Cells RBC 4.80 4.0 - 5.0 M/UL [facility] [...] - 2 % [facility] Absolute 6.90 1.8 - 7.0 K/UL [facility] Neutrophil Count Absolute Lymph 1.50 1.0 - 4.8 K/UL [facility] Count Absolute 0.60 0 - 0.80 K/UL [facility] Monocyte Count Absolute 0.00 0 - 0.45 K/UL [facility] Eosinophil Count Absolute 0.00 0 - 0.20 K/UL [facility] Basophil Count Specimen Blood Performing Organization Address City/[facility]/Zipcode Phone Number MAIN LAB [address] [place] [address] * LIPID PROFILE (10/01/2018 4:29 AM DAIRY WORKER) [facility] Cholesterol 123 <200 MG/DL [facility] [...] 130 mg/dL. Specimen Blood Performing Organization Address City/[facility]/Zipcode Phone Number MAIN LAB [address] [place] [address] * CBC (09/30/2018 6:10 PM DAIRY WORKER) [facility] White Blood 10.2 4.5 - 11.0 K/UL [...] MAIN LAB Specimen Blood Performing Organization Address City/[facility]/Zipcode Phone Number MAIN LAB [address] [place] [address] * PROTIME INR (PT) (09/30/2018 6:10 PM DAIRY WORKER) [facility] INR 1.0 0.8 - 1.2 MAIN LAB Specimen Blood Performing Organization Address City/[facility] Hospital[facility] Phone Number MAIN LAB [address] [place] [phone] * TROPONIN-I (09/30/2018 6:10 PM DAIRY WORKER) [facility] Troponin-I 0.01 0.0 - 0.05 NG/ML MAIN LAB Specimen Blood Performing Organization Address [facility] Hospital[facility] Phone Number MAIN LAB [address] [place] [address] * TROPONIN-I (09/30/2018 2:13 PM DAIRY WORKER) [facility] Troponin-I 0.01 0.0 - 0.05 NG/ML MAIN LAB Performing Organization Address [facility] System/[facility] Hospital[facility] Phone Number MAIN LAB [address] [place] [address] * PHOSPHORUS (09/30/2018 2:13 PM DAIRY WORKER) [facility] Phosphorus 3.4Comment: NOTE NEW REFERENCE 2.0 - 4.5 MG/DL MAIN LAB RANGES Specimen Blood Performing Organization Address [facility]/Zipcode Phone Number MAIN LAB [address] [place] [address] * MAGNESIUM (09/30/2018 2:13 PM DAIRY WORKER) Magnesium 1.9 1.6 - 2.6 mg/dL [facility] MAIN LAB Specimen Blood Performing Organization Address City/[facility]/Zipcode Phone Number MAIN LAB [address] [place] [address] * BASIC METABOLIC PANEL (09/30/2018 2:13 PM DAIRY WORKER) Sodium 142 137 - 147 MMOL/L [facility] [...] >60 >60 mL/min [facility] MAIN LAB Comment: [place] The eGFR is not validated for use in drug dosing adjustments.Continue to use estimated creatinine clearance per dosing reference text.Please contact the Clinical Pharmacist for questions. eGFR >60 >60 mL/min [facility] MAIN LAB [place] Comment: The eGFR is not validated for use in drug dosing adjustments.Continue to use estimated creatinine clearance per dosing reference text.Please contact the Clinical Pharmacist for questions. Specimen Blood Performing Organization Address City/[facility]/Zipcode Phone Number MAIN LAB [address] [place] [phone] * CHEST SINGLE VIEW (09/30/2018 2:11 PM DAIRY WORKER) Impressions Performed At Poor depth of inspiration [...] Interface, Radiant Results - 09/30/2018 2:15 PM DAIRY WORKER Single view of the chest Clinical history: [...] RESULTS * TELEMETRY STRIPS-SCAN (09/30/2018 12:00 AM DAIRY WORKER) Narrative Performed At Ordered by an unspecified provider. * TELEMETRY STRIPS-SCAN (09/30/2018 12:00 AM DAIRY WORKER) Narrative Performed At Ordered by an unspecified provider. * TELEMETRY STRIPS-SCAN (09/30/2018 12:00 AM DAIRY WORKER) Narrative Performed At Ordered by an unspecified provider. * ECG-SCAN (09/30/2018 12:00 AM DAIRY WORKER) Narrative Performed At Ordered by an unspecified provider. documented in this encounter Visit Diagnoses Diagnosis Atrial fibrillation with rapid ventricular response (HCC) - Primary Atrial fibrillation Urge incontinence Paroxysmal atrial fibrillation (HCC) Atrial fibrillation Morbid obesity (HCC) Morbid obesity Coronary artery disease Coronary atherosclerosis of unspecified type of vessel, [place] or graft Hypertension Unspecified essential hypertension Depression (disease) Depressive disorder, not elsewhere classified Hyperlipidemia Other and unspecified hyperlipidemia Obstructive sleep apnea on CPAP Obstructive sleep apnea (adult) (pediatric) Asthma Unspecified asthma documented in this encounter Admitting Diagnoses Diagnosis Atrial flutter with rapid ventricular response (HCC) Atrial flutter documented in this encounter Administered Medications Action Date Dose Rate Site Medication Order MAR Action 10/01/2018 12:10 PM DAIRY WORKER 650 mg acetaminophen (TYLENOL) tablet 650 mg [...] juice., 10 mg Given 10/01/2018 10:03 AM DAIRY WORKER 10 mg Given 09/30/2018 5:47 PM DAIRY WORKER 10/02/2018 10:13 AM CDT 81 mg aspirin EC tablet 81 mg Given 81 mg, Oral, DAILY, First dose on Wed10/01/18 at 0900, Until Discontinued 81 mg Given 10/01/2018 10:04 AM DAIRY WORKER 10/01/2018 8:37 PM DAIRY WORKER 80 mg atorvastatin (LIPITOR) tablet 80 mg Given 80 mg, Oral, AT BEDTIME DAILY, First dose on Wed09/30/18 at 2100, Until Discontinued 80 mg Given 09/30/2018 9:05 PM DAIRY WORKER 10/02/2018 10:13 AM CDT 5,000 Units cholecalciferol (VITAMIN D-3) tablet Given 5,000 Units 5,000 Units, Oral, DAILY, First dose on Wed10/01/18 at 1245, Until Discontinued 5,000 Units Given 10/01/2018 12:10 PM DAIRY WORKER 10/01/2018 1:37 AM DAIRY WORKER 5 mg/hr 5 mL/hr diltiazem (cardIZEM) 125 [...] Given - New Bag 10/01/2018 1:19 AM DAIRY WORKER 10 mg/hr 10 mL/hr Dose/Rate Change 10/01/2018 1:06 AM DAIRY WORKER 10/02/2018 6:07 AM CDT 120 mg Abdominal [...] mg Abdominal Tissue Given 10/01/2018 5:48 PM DAIRY WORKER 120 mg Abdominal Tissue Given 10/01/2018 6:05 AM DAIRY WORKER 09/30/2018 4:52 PM DAIRY WORKER 175 mcg/kg/min 126 mL/hr esmolol (BREVIBLOC) 2500 [...] 90 mL/hr Dose/Rate Change 09/30/2018 4:06 PM DAIRY WORKER 100 mcg/kg/min 72 mL/hr Dose/Rate Change 09/30/2018 3:46 PM DAIRY WORKER 10/02/2018 10:13 AM CDT 0.5 mg estradiol (ESTRACE) tablet 0.5 mg Given 0.5 mg, Oral, DAILY, First dose on Wed10/01/18 at 0900, Until Discontinued 0.5 mg Given 10/01/2018 10:05 AM DAIRY WORKER 09/30/2018 11:33 AM DAIRY WORKER 1,000 mL 20 mL/hr lactated ringers infusion Given - New 1,000 mL, 1,000 mL, Intravenous, at 20 Bag mL/hr, CONTINUOUS, Starting Wed09/30/18 at 0930, Until Wed09/30/18 at 1642, Pre-Op Given - New Bag 09/30/2018 9:55 AM DAIRY WORKER 10/01/2018 10:04 AM DAIRY WORKER 535 mg magnesium chloride (MAG DELAY) tablet Given 535 mg 535 mg, Oral, TWICE DAILY, 2 doses, First dose on Wed09/30/18 at 1515, Last dose on Wed10/01/18 at 0900, Each 535mg delivers 64mg elemental magnesium., 535 mg Given 09/30/2018 3:42 PM DAIRY WORKER 09/30/2018 12:38 PM DAIRY WORKER 10 mg metoprolol (LOPRESSOR) injection 10 mg Given 10 mg, Intravenous, ONCE, 1 dose, Wed09/30/18 at 1245, PROTECT FROM LIGHT, PACU (only) 09/30/2018 11:35 AM DAIRY WORKER 5 mg metoprolol (LOPRESSOR) injection 5 mg Given 5 mg, Intravenous, ONCE, 1 dose, Wed09/30/18 at 1145, PROTECT FROM LIGHT, PACU (only) 09/30/2018 11:58 AM DAIRY WORKER 5 mg metoprolol (LOPRESSOR) injection 5 mg Given 5 mg, Intravenous, ONCE, 1 dose, Wed09/30/18 at 1200, PROTECT FROM LIGHT, PACU (only) 09/30/2018 12:17 PM DAIRY WORKER 5 mg metoprolol (LOPRESSOR) injection 5 mg Given 5 mg, Intravenous, ONCE, 1 dose, Wed09/30/18 at 1230, PROTECT FROM LIGHT, PACU (only) 09/30/2018 9:05 PM DAIRY WORKER 100 mg metoprolol tartrate (LOPRESSOR) tablet Given [...] Created by cabinet override, 10/01/2018 8:37 PM DAIRY WORKER 10 mg montelukast (SINGULAIR) tablet 10 mg Given 10 mg, Oral, AT BEDTIME DAILY, First dose on Wed09/30/18 at 2100, Until Discontinued 10 mg Given 09/30/2018 9:05 PM DAIRY WORKER 09/30/2018 4:07 PM DAIRY WORKER 100 Units ONAbotulinum toxin (BOTOX) syringe 100 Given - See Units OR/Proc 100 Units, SEE ADMIN INSTRUCTIONS, ONCE, Flowsheet 1 dose, Wed09/30/18 at 0730, ++For immediate use ++ Short Stability++, 10/01/2018 2:01 PM DAIRY WORKER 1 Diluted mL perflutren lipid microspheres (DEFINITY) Given injection 1-20 Diluted mL 1-20 Diluted mL, Intravenous, ONCE PRN, 1 dose, Starting 10/01/18 at 1305, Until 10/01/18 at 1401, For Procedure, A grain oilseed or pasture farm manager may only administer Definity through a saline [...] Discontinued 150 mg Given 10/01/2018 10:04 AM DAIRY WORKER 10/01/2018 8:37 PM DAIRY WORKER 50 mg traZODone (DESYREL) tablet 50 mg Given 50 mg, Oral, AT BEDTIME DAILY, First dose on Wed09/30/18 at 2100, Until Discontinued 50 mg Given 09/30/2018 9:05 PM DAIRY WORKER 10/02/2018 10:14 AM CDT 1 tablet triamterene-hydrochlorothiazide Given (MAXZIDE) 37.5-25 mg tablet 1 tablet 1 tablet, Oral, EVERY MORNING, First dose on 10/01/18 at 0800, Until Discontinued 1 tablet Given 10/01/2018 10:04 AM DAIRY WORKER documented in this encounter
--- OUTSIDE RECORDS SUMMARY | 2018-10-18 10:45 | XMS REPORT | Encounter Summary ---
Author [facility] Address Unknown Phone Unavailable Care Team Providers Care Permastone Applicator Name Role Phone Alan Ramachandran MD Unavailable [...] Date Type Department Shefali Herring MD [address] Ortho/Med Pavilion L[address] [place] [address] CYSTOSCOPY WITH BOTOX INJECTION (150 UNITS) 09/30/2018 [facility] OR [address] [address] Social History Date Tobacco Use Types [...] Inhaled Oxygen - Concentration 10/01/2018 2:00 PM COMMISSIONING EDITOR Weight 121.6 kg (268 lb) 10/01/2018 2:00 PM COMMISSIONING EDITOR Height 170.2 cm (5' 7") 10/01/2018 2:00 PM COMMISSIONING EDITOR Body Mass Index 41.97 documented in this [...] 10/02/2018 Attending Physician: Inocente Kate MD Service: [facility] Q - [id number] Physician Summary completed [...] Location Performed: [facility] Status: Final result Procedure Ordered By: Megan Cutler MD [phone] Referring Provider: Interpreting Physician: Aram Rojas MD Fellow: Location of Interp: [facility] Care Consultant: Lindsey Diaz Machine: Siemens [id number] Indications: Atrial fibrillation Study done at patient [...] peak velocity 1.86 m/s Signed at 1538 COMMISSIONING EDITOR Brief Hospital Course: The patient was admitted [...] that she follow up with her primary poultry farmworker and have a zio patch or some sort of longer-term atrial fibrillation monitoring in order to determine whether she needed long term acute care registered nurse anticoagulation or if afib was truly ollie [...] or concerns regarding your hospital stay. Call [phone] Discharging attending physician: INOCENTE KATE [[id number]] Regular Diet You have no dietary restriction. [...] in a 24 hour period. Call your poultry farmworker if you have to use this medication. [...] a follow up appointment with your primary poultry farmworker in the next 2-4 weeks. Pending items needing follow up: 1. Ambulatory cardiac monitoring 2. Determination of anticoagulation timeline Signed: Inocente Kate MD 10/05/2018 cc: Primary Care Physician: Breanna Broderick Verified Referring physicians: Breanna Broderick DO Additional provider(s): Dr. Елена Ang [address] [place] [phone] documented in this encounter Discharge Instructions * Patient Instructions* Karly Mcmillan RN - 09/30/2018 10:54 AM COMMISSIONING EDITOR Discharge Instructions: After Your Surgery Youve just [...] interact with your prescription medicines or other shux-fex-zlkrlgq (OTC) medicines. Some prescription medicines have acetaminophen [...] of taking these medicines. Date Last Reviewed: 06/25/201619998787-1652 [employer]. [address] [place] [address]. All rights reserved. This information is not intended as a substitute for professional medical care. Always follow your healthcare professional's instructions. ISSIONING EDITOR * Appointments* Inocente Kate MD - 10/02/2018 10:00 AM CDT Please schedule a follow up appointment with your primary poultry farmworker in the next 2-4 weeks. * Pre-Anesthesia Patient Instructions* Lucille Gomez RN - 09/06/2018 12:11 PM COMMISSIONING EDITOR GENERAL INFORMATION Before you come to the [...] and any other valuables at home. [facility] is not responsible for the loss or breakage of personal items. Remove nail yemeni, makeup and all jewelry (including piercings) before coming to the hospital. The morning of your procedure: brush your teeth and tongue do not smoke do not shave the area where you will have surgery What to bring to the hospital ID/ Insurance Card Asbestos Abatement Worker card Official documents for legal guardianship Copy of your Living Will, Advanced Directives, and/or Durable Power of Installer Soft Top Small bag with a few personal belongings [...] do not receive a call, please call [phone] before 4:30pm or [phone] after 4:30pm. Notify us at [facility]: if you need to cancel your procedure if you are going to be late Arrival at the [facility] [address] [place] [address] Park in the Parking Garage, located directly across from the main entrance to the hospital. Direct Entry Midwife parking is available from 7 AM to 4 PM Wednesday through Wednesday. Enter through the ground floor main hospital entrance and check in at the [...] if you need to provide a sample. ISSIONING EDITOR * Pre-Anesthesia Medication Instructions* Lucille Gomez RN - 09/06/2018 12:13 PM COMMISSIONING EDITOR YOUR MEDICATIONS: albuterol (VENTOLIN HFA, PROAIR HFA, [...] with any medicine updates or questions. E-mail: [email or web address] Before going home from the hospital, please ask your doctor when you should re- start your medicines that were stopped before surgery. ISSIONING EDITOR documented in this encounter Medications at Time [...] in a 24 hour period. Call your poultry farmworker if you have to use this medication. [...] prescriptions. Patient to follow-up with her outside poultry farmworker for Zio patch. Return precautions discussed. Greater than 31 minutes spent in discharge planning including discussion with patient, placement of discharge orders, documentation of discharge summary. Inocente Kate MD [facility] Q- [id number] * Angle Montgomery RN [...] will wheel pt to lobby. * Harris Mckenzie, PHARMD - 10/02/2018 11:27 AM CDT Pharmacy [...] Belia Hansen MD - 10/01/2018 5:16 PM COMMISSIONING EDITOR Cardiology progress note. Subjective: No acute events [...] Gumaro Dietrich MD 10 mg at 09/30/18 2105 ondansetron (ZOFRAN) injection 4 mg 4 mg Intravenous Q6H PRN Gumaro Dietrich MD sertraline (ZOLOFT) tablet 150 mg 150 mg Oral QAM8 Gumaro Dietrich MD 150 mg at 10/01/18 1004 traZODone (DESYREL) tablet 50 mg 50 mg Oral QHS Gumaro Dietrich MD 50 mg at 09/30/18 2105 triamterene-hydrochlorothiazide (MAXZIDE) 37.5-25 mg tablet 1 tablet 1 tablet Oral QAM8 Gumaro Dietrich MD 1 tablet at 10/01/18 1004 Objective: [...] may not repeat in ?24 hours) - [id number] at least 3. Discussed benefits and risk for anti-correlation. Patient is agreeable to proceed with anticoagulation at least temporary for the next 6 weeks. She will follow with outpatient cardiology with the results of the monitor monitor. Consideration for implantable loop recorder with discussion with outpatient poultry farmworker given 2 episodes of perioperative A. Fib to determine the longevity of anticoagulate. ISSIONING EDITOR * Inocente Kate MD - 10/01/2018 11:33 AM COMMISSIONING EDITOR Progress Note - Medicine Today's Date: 10/01/2018 [...] due to age, sex, hypertension Taking metoprolol TORQUE TESTER 100 mg twice daily Started on diltiazem and converted to sinus rhythm on 09/30. Now with bradycardia, asymptomatic. We will decrease metoprolol to 50 mg twice daily Continue therapeutic anticoagulation for now, okay to discharge on [facility] Cardiology discussed flecainide for abortive therapy Patient to follow-up with her home poultry farmworker for zio patch monitoring to determine long-term [...] patient and her granddaughter. Inocente Kate MD [facility] Q- [id number] __ Subjective: No acute overnight events. Patient [...] Signs: 24 Hour Range BP: 139/86 (10/01 729) Temp: 36.4 C (97.5 F) (10/01 0800) Pulse: (P) 40 (10/01 1053) Respirations: (P) 18 PER MINUTE (10/01 105) SpO2: 95 % (03/09 0902) O2 Delivery: (P) None (Room Air) [...] (Last 24 hours) Glucose: (!) 112 (10/01/18 0429) Radiology and other Diagnostics Review: Pertinent radiology reviewed. ISSIONING EDITOR * Liza Hendricks RN - 10/01/2018 10:43 AM COMMISSIONING EDITOR Patient takes 5,000u vitamin D daily. Currently not on SEP. Sent text page to [facility] to notify. Tracking # [id number] ISSIONING EDITOR * Mary Rowley - 10/01/2018 2:20 AM COMMISSIONING EDITOR MP Swing 4 paged to notify that [...] Lynda Barroso RN - 09/30/2018 5:18 PM COMMISSIONING EDITOR Patient arrived to room # (HC815*) via cart accompanied by RN. Patient transferred to the chair without assistance. Bedside safety checks completed. Initial patient assessment completed, refer to flowsheet for details. Admission skin assessment completed by: Lynda Sen and Elizabeth Blanc. Pressure Injury Present on Hospital Admission (within [...] Doc Flowsheet for additional wound details. INTERVENTIONS: ISSIONING EDITOR * Gumaro Dietrich MD - 09/30/2018 5:00 PM COMMISSIONING EDITOR Notified of preference for central line with esmolol infusion if duration anticipated to be prolonged. Since she has had minimal response to initial doses of esmolol, favor switching to Cardizem for rate control. Additionally, confirmed with her poultry farmworker that she does not have a history of tachybradycardia syndrome and therefore a short acting agent is not the most important characteristic of the infused medication. Will switch to Cardizem with dose to titrate 5-15 mg to keep rate less than 110 greater than 60. Gumaro Dietrich MD ISSIONING EDITOR * Lucille Gomez RN - 09/06/2018 12:06 PM COMMISSIONING EDITOR PAC phone triage completed with patient for [...] and copy of instructions emailed to her ISSIONING EDITOR documented in this encounter H&P Notes * Gumaro Dietrich MD - 09/30/2018 2:13 PM COMMISSIONING EDITOR Admission H&P Department of Internal Medicine Assessment (current differential diagnosis) | Status Newonset atrial fibrillation with history of tachycardia (procedural physiologic stress v botulinum v ephedrine) | Asymptomatic, and the patient notes that historically had similar episodes.ERICH(2)DS(2)-VAsc score 3 and CVA risk ~3.2% per year for HTN, Age, Sex. Follows with a District Home Economics Agent in [facility], and she notes she has [...] 3:34 PM I spoke with her primary District Home Economics Agent, who states after his note review that she has a history of palpitations, but no documented arrhythmia. Coronary artery disease | Asymptomatic. Prior to admission, on aspirin 81 mg daily. Her primary District Home Economics Agent highlighted that in 2006 she had a catheterization that demonstrated mild coronary artery disease. RBBB | Not new. Noted on old EKG. Asthma | Controlled, with no evidence of exacerbation. Prior to admission, on Singulair and albuterol asneeded. Has not regularly needed it. Tolerates beta-coy TORQUE TESTER with no bronchospasm. Urinary incontinence | Status [...] mg every afternoon. ADOLPH | On CPAP TORQUE TESTER Morbid obesity | Body mass index is [...] CBC/INR TSH *I spoke with her Primary District Home Economics Agent: Dr. Елена Ang [address] [place] [address] [phone] Pager (I spoke with Urology, who stated [...] peripheral arterial disease. I spoke with her poultry farmworker, and he highlighted that she had a [...] REPLACEMENT Left 09/14/2012 HIP REPLACEMENT Right 05/25/2013 [place] CYSTOURETHROSCOPY INJ CHEMODENERVATION BLADDER N/A 10/22/2015 CYSTOSCOPY, INTRAVESICAL BOTOX INJECTION (150Units) performed by Shefali Herring MD at Main OR/Periop [place] CYSTOURETHROSCOPY INJ CHEMODENERVATION BLADDER N/A 04/21/2016 CYSTOSCOPY, INTRAVESICAL BOTOX INJECTION (150 UNITS) performed by Shefali Herring MD at Main OR/Periop ABDOMINAL HERNIA REPAIR 05/2016 [place] NDSC NJX IMPLT MATRL URT&/BLDR NCK N/A 10/23/2016 CYSTOSCOPY, INJECTION BOTOX (150 UNITS) performed by Shefali Herring MD at Main OR/Periop [place] CYSTOURETHROSCOPY INJ CHEMODENERVATION BLADDER N/A 04/23/2017 CYSTOSCOPY, INJECTION BOTOX (150 UNITS) performed by Shefali Herring MD at Main OR/Periop CYSTOSCOPY N/A 09/28/2017 CYSTOSCOPY, INJECTION BOTOX (150 UNITS) performed by Shefali Herring MD at Main OR/Periop [place] CYSTOURETHROSCOPY INJ CHEMODENERVATION BLADDER N/A 03/29/2018 CYSTOSCOPY, [...] PACU I spoke directly with the Urologist. ISSIONING EDITOR * Shefali Herring MD - 09/30/2018 9:48 AM COMMISSIONING EDITOR Admission History and Physical Examination Name: Mame [...] REPLACEMENT Left 09/14/2012 HIP REPLACEMENT Right 05/25/2013 [place] CYSTOURETHROSCOPY INJ CHEMODENERVATION BLADDER N/A 10/22/2015 CYSTOSCOPY, INTRAVESICAL BOTOX INJECTION (150Units) performed by Shefali Herring MD at Main OR/Periop [place] CYSTOURETHROSCOPY INJ CHEMODENERVATION BLADDER N/A 04/21/2016 CYSTOSCOPY, INTRAVESICAL BOTOX INJECTION (150 UNITS) performed by Shefali Herring MD at Main OR/Periop ABDOMINAL HERNIA REPAIR 05/2016 GA NDSC NJX IMPLT MATRL URT&/BLDR NCK N/A 10/23/2016 CYSTOSCOPY, INJECTION BOTOX (150 UNITS) performed by Shefali Herring MD at Main OR/Periop [place] CYSTOURETHROSCOPY INJ CHEMODENERVATION BLADDER N/A 04/23/2017 CYSTOSCOPY, INJECTION BOTOX (150 UNITS) performed by Shefali Herring MD at Main OR/Periop CYSTOSCOPY N/A 09/28/2017 CYSTOSCOPY, INJECTION BOTOX (150 UNITS) performed by Shefali Herring MD at Main OR/Periop [place] CYSTOURETHROSCOPY INJ CHEMODENERVATION BLADDER N/A 03/29/2018 CYSTOSCOPY, [...] Pertinent radiology reviewed. Malcom Chaidez MD Pager [phone] ATTESTATION I personally performed the westfall portions of the E/M visit, discussed case with resident and concur with resident documentation of history, physical exam, assessment, and treatment plan unless otherwise noted. Staff name: Shefali Herring MD ISSIONING EDITOR documented in this encounter Consult Notes * Megan Cutler MD - 09/30/2018 5:05 PM COMMISSIONING EDITOR Associated Order(s): CONSULT CARDIOLOGY PHYSICIAN STAFF CARDIOLOGY CONSULT NOTE Admission Date: 09/30/2018 Code Status: Full Code Reason for Consultation: New onset atrial fibrillation History of Present Illness: This is a 73 y.o. white female patient that was admitted to [facility] 2 undergo Botox injection of her [...] was restored. Patient does follow-up with a poultry farmworker in [place], [place]. She underwent a left heart catheterization in 2006, she was not found to have any significantly obstructive coronary artery disease. She was seen by her poultry farmworker a few days ago and was found [...] (09/30 1634) Temp: 37.2 C (99 F) (03/08 1635) Pulse: 106 (09/30 1635) Respirations: 22 PER MINUTE (09/30 1635) SpO2: 93 % (09/30 1635) O2 Delivery: None (Room Air) (09/30 163) [...] another surgical procedure. Patient follows with a poultry farmworker in [place], [place] and she does not have coronary [...] diet 9. Patient will follow-up with her poultry farmworker in her hometown. Megan Cutler MD ISSIONING EDITOR documented in this encounter Miscellaneous Notes * [...] Carlo He MD - 10/01/2018 3:50 AM COMMISSIONING EDITOR Please page [phone] with any questions until 8am after that please page med private Q ISSIONING EDITOR * Operative Report (Direct Entry) - Shefali Herring MD - 09/30/2018 10:25 AM COMMISSIONING EDITOR OPERATIVE REPORT Name: Mame Archer is a [...] Date Type Specialty Shefali Herring MD [address] Ortho/Med Pavilion Lvl [address] [place] [address] [phone] Urge incontinence 03/31/2019 Hospital Encounter Shefali Herring MD [address] Ortho/Med Pavilion L[address] [place] [address] [phone] CYSTOURETHROSCOPY WITH INJECTION FOR CHEMODENERVATION OF THE BLADDER (BOTOX 150 UNITS) 03/31/2019 Surgery documented as of this encounter Procedures Comments Procedure Name Priority Date/Time Associated Diagnosis CBC AND DIFF Routine 10/02/2018 5:49 AM CDT MAGNESIUM Routine 10/02/2018 5:49 AM CDT COMPREHENSIVE METABOLIC Routine 10/02/2018 PANEL 5:49 AM CDT 2-D + DOPPLER Routine 10/01/2018 ECHOCARDIOGRAM 2:00 PM COMMISSIONING EDITOR CBC AND DIFF Routine 10/01/2018 4:29 AM COMMISSIONING EDITOR THYROID STIMULATING Add on 10/01/2018 HORMONE-TSH 4:29 AM COMMISSIONING EDITOR MAGNESIUM Routine 10/01/2018 4:29 AM COMMISSIONING EDITOR HEMOGLOBIN A1C Add on 10/01/2018 4:29 AM COMMISSIONING EDITOR LIPID PROFILE Routine 10/01/2018 4:29 AM COMMISSIONING EDITOR COMPREHENSIVE METABOLIC Routine 10/01/2018 PANEL 4:29 AM COMMISSIONING EDITOR TROPONIN-I STAT 09/30/2018 6:10 PM COMMISSIONING EDITOR PROTIME INR (PT) STAT 09/30/2018 6:10 PM COMMISSIONING EDITOR CBC STAT 09/30/2018 6:10 PM COMMISSIONING EDITOR ECG 12-LEAD Routine 09/30/2018 4:42 PM COMMISSIONING EDITOR TROPONIN-I 09/30/2018 2:13 PM COMMISSIONING EDITOR PHOSPHORUS STAT 09/30/2018 2:13 PM COMMISSIONING EDITOR MAGNESIUM STAT 09/30/2018 2:13 PM COMMISSIONING EDITOR BASIC METABOLIC PANEL STAT 09/30/2018 2:13 PM COMMISSIONING EDITOR CHEST SINGLE VIEW STAT 09/30/2018 2:11 PM COMMISSIONING EDITOR CYSTOURETHROSCOPY WITH 09/30/2018 Urge urinary incontinence INJECTION FOR 10:25 AM COMMISSIONING EDITOR CHEMODENERVATION OF THE BLADDER Special Needs 09/13 PER CHANGE FORM CASE MOVED FROM 09/27 TO 09/30 TO FOLLOW - CSesar DEXTER RN ([id number]) TELEMETRY STRIPS-SCAN 09/30/2018 12:00 AM COMMISSIONING EDITOR TELEMETRY STRIPS-SCAN 09/30/2018 12:00 AM COMMISSIONING EDITOR TELEMETRY STRIPS-SCAN 09/30/2018 12:00 AM COMMISSIONING EDITOR ECG-SCAN 09/30/2018 12:00 AM COMMISSIONING EDITOR documented in this encounter Results * MAGNESIUM (10/02/2018 5:49 AM CDT) Magnesium 1.8 1.6 - 2.6 mg/dL [facility] Specimen Blood Performing Organization Address City/[facility]/Zipcode Phone Number [facility] [address] [place] [address] * COMPREHENSIVE METABOLIC PANEL (10/02/2018 5:49 AM CDT) [facility] [address] Sodium 142 137 - 147 MMOL/L [facility] [...] >60 >60 mL/min [facility] Comment: Iranian The eGFR is not validated for use in drug dosing adjustments.Continue to use estimated creatinine clearance per dosing reference text.Please contact the Clinical Pharmacist for questions. eGFR >60 >60 mL/min [facility] Iranian Comment: The eGFR is not validated for use in drug dosing adjustments.Continue to use estimated creatinine clearance per dosing reference text.Please contact the Clinical Pharmacist for questions. Specimen Blood Performing Organization Address City/[facility]/Zipcode Phone Number MAIN LAB [address] [place] [address] * CBC AND DIFF (10/02/2018 5:49 AM CDT) [facility] [address] White Blood 6.4 4.5 - 11.0 K/UL [facility] Cells RBC 4.75 4.0 - 5.0 M/UL [facility] Hemoglobin 14.1 12.0 - 15.0 GM/DL [facility] Hematocrit 40.6 36 - 45 % [facility] MCV 85.5 80 - 100 FL MAIN LAB MCH 29.6 26 - 34 PG [facility] MCHC 34.6 32.0 - 36.0 G/DL MAIN LAB RDW 14.1 11 - 15 [...] Absolute Lymph 1.90 1.0 - 4.8 K/UL [facility]IN [facility] Count Absolute 0.40 0 - 0.80 K/UL [facility] MAIN LAB Monocyte Count Absolute 0.20 0 - 0.45 K/UL [facility] Eosinophil Count Absolute 0.00 0 - 0.20 K/UL [facility] Basophil Count Specimen Blood Performing Organization Address City/State/Zipcode Phone Number [facility] [address] [place] [address] * 2-D + DOPPLER ECHOCARDIOGRAM (10/01/2018 2:00 PM COMMISSIONING EDITOR) IVS 0.64 0.6 - 0.9 cm OTHER [...] 34 OTHER OUTSIDE Index LAB Cardiology Siemens [id number] OTHER OUTSIDE Ultrasound LAB Machine Left Ventricle [...] No Pericardial Effusion PASP=37mmHg Performing Organization Address City/[facility]/Zipcode Phone Number OTHER OUTSIDE LAB * THYROID STIMULATING HORMONE-TSH (10/01/2018 4:29 AM COMMISSIONING EDITOR) TSH 0.970 0.35 - 5.00 MCU/ML MAIN LAB Performing Organization Address City/[facility] Phone Number [facility] LAB [address] [place] [address] * HEMOGLOBIN A1C (10/01/2018 4:29 AM COMMISSIONING EDITOR) Hemoglobin A1C 6.0 4.0 - 6.0 % [facility] Comment: The ADA recommends that most patients with type 1 and type 2 diabetes maintain an A1c level <7%. Performing Organization Address City/State/Zipcode Phone Number MAIN LAB [address] [place] [address] * MAGNESIUM (10/01/2018 4:29 AM COMMISSIONING EDITOR) Magnesium 1.9 1.6 - 2.6 mg/dL [facility] Specimen Blood Performing Organization Address City/[facility]/Zipcode Phone Number [facility] [address] [place] [address] * COMPREHENSIVE METABOLIC PANEL (10/01/2018 4:29 AM COMMISSIONING EDITOR) Sodium 141 137 - 147 MMOL/L [facility] [...] >60 >60 mL/min [facility] Comment: Iranian The eGFR is not validated for use in drug dosing adjustments.Continue to use estimated creatinine clearance per dosing reference text.Please contact the Clinical Pharmacist for questions. eGFR >60 >60 mL/min [facility] Iranian Comment: The eGFR is not validated for use in drug dosing adjustments.Continue to use estimated creatinine clearance per dosing reference text.Please contact the Clinical Pharmacist for questions. Specimen Blood Performing Organization Address City/State/Zipcode Phone Number [facility] [address] [place] [address] * CBC AND DIFF (10/01/2018 4:29 AM COMMISSIONING EDITOR) White Blood 9.1 4.5 - 11.0 K/UL [...] Basophil Count Specimen Blood Performing Organization Address City/[facility] Phone Number MAIN LAB [address] [place] [address] * LIPID PROFILE (10/01/2018 4:29 AM COMMISSIONING EDITOR) Cholesterol 123 <200 MG/DL [facility]IN [facility] [...] 130 mg/dL. Specimen Blood Performing Organization Address City/[facility] Phone Number [facility] [address] [place] [address] * CBC (09/30/2018 6:10 PM COMMISSIONING EDITOR) White Blood 10.2 4.5 - 11.0 K/UL [facility] Cells RBC 5.06 (H) 4.0 [...] MAIN LAB Specimen Blood Performing Organization Address City/[facility] Phone Number MAIN LAB [address] [place] [address] * PROTIME INR (PT) (09/30/2018 6:10 PM COMMISSIONING EDITOR) INR 1.0 0.8 - 1.2 MAIN LAB Specimen Blood Performing Organization Address City/[facility] Phone Number MAIN LAB [address] [place] [address] * TROPONIN-I (09/30/2018 6:10 PM COMMISSIONING EDITOR) Troponin-I 0.01 0.0 - 0.05 NG/ML MAIN LAB Specimen Blood Performing Organization Address [facility] Phone Number MAIN LAB [address] [place] [address] * TROPONIN-I (09/30/2018 2:13 PM COMMISSIONING EDITOR) Troponin-I 0.01 0.0 - 0.05 NG/ML MAIN LAB Performing Organization Address [facility] Phone Number MAIN LAB [address] [place] [address] * PHOSPHORUS (09/30/2018 2:13 PM COMMISSIONING EDITOR) Phosphorus 3.4Comment: NOTE NEW REFERENCE 2.0 - 4.5 MG/DL MAIN LAB RANGES Specimen Blood Performing Organization Address City/[facility] Phone Number MAIN LAB [address] [place] [address] * MAGNESIUM (09/30/2018 2:13 PM COMMISSIONING EDITOR) Magnesium 1.9 1.6 - 2.6 mg/dL MAIN LAB Specimen Blood Performing Organization Address [facility] Phone Number MAIN LAB [address] [place] [address] * BASIC METABOLIC PANEL (09/30/2018 2:13 PM COMMISSIONING EDITOR) Sodium 142 137 - 147 MMOL/L MAIN LAB Potassium 4.2 3.5 - 5.1 [...] >60 >60 mL/min [facility] Comment: Iranian The eGFR is not validated for use in drug dosing adjustments.Continue to use estimated creatinine clearance per dosing reference text.Please contact the Clinical Pharmacist for questions. eGFR >60 >60 mL/min [facility] Iranian Comment: The eGFR is not validated for use in drug dosing adjustments.Continue to use estimated creatinine clearance per dosing reference text.Please contact the Clinical Pharmacist for questions. Specimen Blood Performing Organization Address City/State/Zipcode Phone Number MAIN LAB [address] [place] [address] * CHEST SINGLE VIEW (09/30/2018 2:11 PM COMMISSIONING EDITOR) Impressions Performed At Poor depth of inspiration [...] Interface, Radiant Results - 09/30/2018 2:15 PM COMMISSIONING EDITOR Single view of the chest Clinical history: [...] RESULTS * TELEMETRY STRIPS-SCAN (09/30/2018 12:00 AM COMMISSIONING EDITOR) Narrative Performed At Ordered by an unspecified provider. * TELEMETRY STRIPS-SCAN (09/30/2018 12:00 AM COMMISSIONING EDITOR) Narrative Performed At Ordered by an unspecified provider. * TELEMETRY STRIPS-SCAN (09/30/2018 12:00 AM COMMISSIONING EDITOR) Narrative Performed At Ordered by an unspecified provider. * ECG-SCAN (09/30/2018 12:00 AM COMMISSIONING EDITOR) Narrative Performed At Ordered by an unspecified provider. documented in this encounter Visit Diagnoses Diagnosis Urge urinary incontinence Urge incontinence documented in this encounter Admitting Diagnoses Diagnosis Atrial flutter with rapid ventricular response (HCC) Atrial flutter documented in this encounter Administered Medications Action Date Dose Rate Site Medication Order MAR Action 10/01/2018 12:10 PM COMMISSIONING EDITOR 650 mg acetaminophen (TYLENOL) tablet 650 mg [...] juice., 10 mg Given 10/01/2018 10:03 AM COMMISSIONING EDITOR 10 mg Given 09/30/2018 5:47 PM COMMISSIONING EDITOR 10/02/2018 10:13 AM CDT 81 mg aspirin EC tablet 81 mg Given 81 mg, Oral, DAILY, First dose on Wed10/01/18 at 0900, Until Discontinued 81 mg Given 10/01/2018 10:04 AM COMMISSIONING EDITOR 10/01/2018 8:37 PM COMMISSIONING EDITOR 80 mg atorvastatin (LIPITOR) tablet 80 mg Given 80 mg, Oral, AT BEDTIME DAILY, First dose on 09/30/18 at 2100, Until Discontinued 80 mg Given 09/30/2018 9:05 PM COMMISSIONING EDITOR 10/02/2018 10:13 AM CDT 5,000 Units cholecalciferol (VITAMIN D-3) tablet Given 5,000 Units 5,000 Units, Oral, DAILY, First dose on Wed10/01/18 at 1245, Until Discontinued 5,000 Units Given 10/01/2018 12:10 PM COMMISSIONING EDITOR 10/02/2018 6:07 AM CDT 120 mg Abdominal [...] mg Abdominal Tissue Given 10/01/2018 5:48 PM COMMISSIONING EDITOR 120 mg Abdominal Tissue Given 10/01/2018 6:05 AM COMMISSIONING EDITOR 10/02/2018 10:13 AM CDT 0.5 mg estradiol (ESTRACE) tablet 0.5 mg Given 0.5 mg, Oral, DAILY, First dose on Wed10/01/18 at 0900, Until Discontinued 0.5 mg Given 10/01/2018 10:05 AM COMMISSIONING EDITOR metoprolol tartrate (LOPRESSOR) tablet 50 mg 50 mg, Oral, TWICE DAILY, First dose on Wed10/01/18 at 2100, Until Discontinued, Hold for heart rate < 60 bpm Hold if SBP less 100, 10/01/2018 8:37 PM COMMISSIONING EDITOR 10 mg montelukast (SINGULAIR) tablet 10 mg Given 10 mg, Oral, AT BEDTIME DAILY, First dose on Wed09/30/18 at 2100, Until Discontinued 10 mg Given 09/30/2018 9:05 PM COMMISSIONING EDITOR 09/30/2018 10:15 AM COMMISSIONING EDITOR 150 Units ONAbotulinum toxin A (BOTOX) injection Given INTRA-PROCEDURE MED, Starting Wed09/30/18 at 1026, Until Wed09/30/18 at 1037, Intra-op 10/02/2018 10:13 AM CDT 150 mg sertraline (ZOLOFT) tablet 150 mg Given 150 mg, Oral, EVERY MORNING, First dose on Wed10/01/18 at 0800, Until Discontinued 150 mg Given 10/01/2018 10:04 AM COMMISSIONING EDITOR 09/30/2018 10:26 AM COMMISSIONING EDITOR 3,000 mL sodium chloride 0.9 % irrigation bag Given INTRA-PROCEDURE MED, Starting Wed09/30/18 at 1026, Until Wed09/30/18 at 1037, Intra-op 10/01/2018 8:37 PM COMMISSIONING EDITOR 50 mg traZODone (DESYREL) tablet 50 mg Given 50 mg, Oral, AT BEDTIME DAILY, First dose on Wed09/30/18 at 2100, Until Discontinued 50 mg Given 09/30/2018 9:05 PM COMMISSIONING EDITOR 10/02/2018 10:14 AM CDT 1 tablet triamterene-hydrochlorothiazide Given (MAXZIDE) 37.5-25 mg tablet 1 tablet 1 tablet, Oral, EVERY MORNING, First dose on Wed10/01/18 at 0800, Until Discontinued 1 tablet Given 10/01/2018 10:04 AM COMMISSIONING EDITOR documented in this encounter
[2018-10-18] MEDS ORDERED: NS IV 1000 ML 1,000 ML IV SCH (10:58)
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
--- NOTE | 2018-10-18 11:06 | ED Cardiac General ---
History of Present Illness General Chief Complaint: Cardiac/General Problems Stated Complaint: TACHYCARDIA Source: patient Exam Limitations: no limitations History of Present Illness Date Seen by Provider: Oct 18, 2018 Time Seen by Provider: 10:45 Initial Comments Patient presents to ER by private conveyance with her daughter and chief complaint she's been having 3 days now of palpitations, racing heart rate. Her watch as detected her heart rate to be around the 120 for the past 3 days. It makes her dizzy lightheaded like she's tired but not about the pass out. She's not having any problems with vertigo. She's not having any chest pain nausea fevers chills cough shortness of breath. It's not worse with exertion or resting. She has a history of atrial fibrillation for the past 3 weeks since she had a bladder scope done at . She was put on Eliquis and Cardizem 240 mg a day. She was seen Wednesday, 2 days ago in the ER for this problem and he did a full workup including thyroid and increased her Cardizem to 120 mg at night in addition to her daily 240 mg. She does not feel like this has helped keep her heart rate under control. She's had several heart catheterizations in the past but never a stent or heart attack. She denies diabetes, hypertension, thyroidism. She does have high cholesterol and a familial history of coronary disease. The patient says she's been fastidious about taking her medications. Her daughter was recently diagnosed with pneumonia yesterday at the walk-in clinic. Allergies and Home Medications Allergies Coded Allergies: cephalexin (Verified Allergy, Unknown, 10/02/18) Home Medications Acetaminophen 500 Mg Tablet, 500-1,000 MG PO Q6H PRN for PAIN-MILD, (Reported) Albuterol Sulfate 18 Gm Hfa.aer.ad, 2 PUFF INH Q4H PRN for SHORTNESS OF BREATH, (Reported) Amlodipine Besylate/Benazepril 1 Each Capsule, 1 CAP PO DAILY, (Reported) Apixaban 5 Mg Tablet, 5 MG PO BID, (Reported) Aspirin 81 Mg Tablet.dr, 81 MG PO DAILY, (Reported) Atorvastatin Calcium 20 Mg Tablet, 20 MG PO HS, (Reported) Cholecalciferol 5,000 Unit Capsule, 5,000 UNIT PO DAILY, (Reported) Diltiazem HCl 240 Mg Cap.er.24h, 240 MG PO DAILY Prescribed by: RASHAUN HORN on 10/03/18 1323 Diltiazem HCl 120 Mg Cap.er.24h, 120 MG PO DAILY Prescribed by: FARHEEN FOY on 10/16/18 1645 Estradiol 0.5 Mg Tablet, 0.5 MG PO DAILY, (Reported) Estradiol 42.5 Gm Cream.appl, VG SuTuTh, (Reported) Flecainide Acetate 100 Mg Tablet, 100 MG PO BID Prescribed by: RASHAUN HORN on 10/03/18 1323 Fluticasone Propionate 16 Gm [place].susp, 2 SPRAYS NS DAILY PRN for ALLERGIES, ( Reported) Fluticasone/Salmeterol 1 Each Blst.w.dev, 1 PUFF INH BID PRN for SHORTNESS OF BREATH, (Reported) Montelukast Sodium 10 Mg Tablet, 10 MG PO HS, (Reported) Sertraline HCl 100 Mg Tablet, 150 MG PO DAILY, (Reported) TAKES 1 & 1/2 (100MG) TABLET Trazodone HCl 50 Mg Tablet, 50 MG PO HS, (Reported) Triamterene/Hydrochlorothiazid 1 Each Tablet, 1 TAB PO DAILY, (Reported) Patient Home Medication List Home Medication List Reviewed: Yes Review of Systems Review of Systems Constitutional: No chills, No fever, No malaise EENTM: No Blurred Vision, No Double Vision Respiratory: Denies Cough, Denies Shortness of Air Cardiovascular: Denies Chest Pain, Denies Edema; Irregular Heart Rate, Lightheadedness, Palpitations; Denies Syncope Gastrointestinal: Denies Abdominal Pain, Denies Constipated, Denies Diarrhea, Denies Nausea Genitourinary: Denies Burning, Denies Discharge Musculoskeletal: No back pain, No joint pain Skin: No pruritus, No rash Psychiatric/Neurological: Denies Headache, Denies Numbness, Denies Paresthesia Past Egajxij-Iokixd-Juxyem Hx Patient Social History Alcohol Use: Denies Use Recreational Drug Use: No Smoking Status: Never a Smoker 2nd Hand Smoke Exposure: No Recent Foreign Travel: No Contact w/Someone Who Travel: No Recent Hopitalizations: Yes (RELEASED RECENTLY FROM P/O BLADDER SX ON 09/30/18 ) Immunizations Up To Date Tetanus Booster (TDap): Less than 5yrs Date of Pneumonia Vaccine: May 04, 2017 Date of Influenza Vaccine: May 04, 2018 Seasonal Allergies Seasonal Allergies: No Past Medical History Surgeries: Yes (HIATAL HERNIA, L TKR, R HIP REPLACEMENT, BLADDER x8, BILAT FOOT SX) Bladder Surgery, Gallbladder, Hysterectomy, Joint Replacement, Orthopedic Respiratory: Yes Asthma, Sleep Apnea Currently Using CPAP: Yes Cardiac: Yes High Cholesterol, Hypertension Neurological: No Reproductive Disorders: No 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 Sexually Transmitted Disease: No Genitourinary: No Bladder Infection, UTI-Chronic Gastrointestinal: Yes Abdominal Hernia, Diverticulosis Musculoskeletal: Yes Arthritis Endocrine: No Diabetes, Non-Insulin dep Cataract Loss of Vision: Bilateral Hearing Impairment: Denies Cancer: No Psychosocial: Yes Depression Integumentary: No Blood Disorders: No Family Medical History Arthritis 19 MOTHER Cataracts 19 FATHER 19 MOTHER Colon cancer 19 FATHER Deafness or hearing loss 19 FATHER Dementia 19 FATHER FH: macular degeneration 19 MOTHER FH: prostate cancer 19 FATHER FH: skin cancer 19 FATHER Gout 19 MOTHER Hypertension 19 FATHER 19 MOTHER Myocardial infarction 19 FATHER 19 MOTHER Physical Exam Vital Signs Vital Signs - First Documented 10/18/18 11:05 Temp 98.9 Pulse 100 Resp 18 B/P (MAP) 113/71 (85) Pulse Ox 94 Capillary Refill : Height, Weight, BMI Height: 5'6.00" Weight: 260lbs. 3.0oz. 117.200060fg; 42.0 BMI Method:Stated General Appearance: No Apparent Distress, WD/WN HEENT: PERRL/EOMI, Pharynx Normal, Moist Mucous Membranes Neck: Normal Inspection, Non Tender, Supple Respiratory: Chest Non Tender, Lungs Clear, Normal Breath Sounds, No Accessory Muscle Use, No Respiratory Distress Cardiovascular: Regular Rate, Rhythm, No Edema, Normal Peripheral Pulses Gastrointestinal: Non Tender, Soft Extremity: Normal Capillary Refill, Normal Inspection, No Pedal Edema Neurologic/Psychiatric: Alert, Oriented x3 Skin: Normal Color, Warm/Dry Progress/Results/Core Measures Results/Orders Lab Results Laboratory Tests Test 10/18/18 11:07 Range/Units White Blood Count 10.5 4.3-11.0 10^3/uL Red Blood Count 4.98 4.35-5.85 10^6/uL Hemoglobin 14.6 11.5-16.0 G/DL Hematocrit 43 35-52 % Mean Corpuscular Volume 87 80-99 FL Mean Corpuscular Hemoglobin 29 25-34 PG Mean Corpuscular Hemoglobin Concent 34 32-36 G/DL Red Cell Distribution Width 14.4 10.0-14.5 % Platelet Count 322 130-400 10^3/uL Mean Platelet Volume 9.3 7.4-10.4 FL Neutrophils (%) (Auto) 77 H 42-75 % Lymphocytes (%) (Auto) 14 12-44 % Monocytes (%) (Auto) 7 0-12 % Eosinophils (%) (Auto) 1 0-10 % Basophils (%) (Auto) 1 0-10 % Neutrophils # (Auto) 8.0 H 1.8-7.8 X 10^3 Lymphocytes # (Auto) 1.5 1.0-4.0 X 10^3 Monocytes # (Auto) 0.8 0.0-1.0 X 10^3 Eosinophils # (Auto) 0.2 0.0-0.3 10^3/uL Basophils # (Auto) 0.1 0.0-0.1 10^3/uL Sodium Level 141 135-145 MMOL/L Potassium Level 4.1 3.6-5.0 MMOL/L Chloride Level 108 H 98-107 MMOL/L Carbon Dioxide Level 23 21-32 MMOL/L Anion Gap 10 5-14 MMOL/L Blood Urea Nitrogen 23 H 7-18 MG/DL Creatinine 0.91 0.60-1.30 MG/DL Estimat Glomerular Filtration Rate > 60 BUN/Creatinine Ratio 25 Glucose Level 107 H 70-105 MG/DL Calcium Level 9.4 8.5-10.1 MG/DL Corrected Calcium 9.3 8.5-10.1 MG/DL Magnesium Level 1.8 1.8-2.4 MG/DL Total Bilirubin 0.8 0.1-1.0 MG/DL Aspartate Amino Transf (AST/SGOT) 15 5-34 U/L Alanine Aminotransferase (ALT/SGPT) 18 0-55 U/L Alkaline Phosphatase 95 40-136 U/L Troponin I < 0.028 <0.028 NG/ML B-Type Natriuretic Peptide 60.4 <100.0 PG/ML Total Protein 6.9 6.4-8.2 GM/DL Albumin 4.1 3.2-4.5 GM/DL My Orders Orders - BROCK GUERRA Chest Pa/Lat (2 View) (10/18/18 10:58) BNP (10/18/18 10:58) Cbc With Automated Diff (10/18/18 10:58) Comprehensive Metabolic Panel (10/18/18 10:58) Magnesium (10/18/18 10:58) Troponin I (10/18/18 10:58) Saline Lock/Iv-Start (10/18/18 10:58) Ns Iv 1000 Ml (Sodium Chloride 0.9%) (10/18/18 10:58) Ekg Tracing (10/18/18 10:58) Continuous Ekg Monitoring (10/18/18 10:58) Vital Signs/I&O 10/18/18 11:05 Temp 98.9 Pulse 100 Resp 18 B/P (MAP) 113/71 (85) Pulse Ox 94 Progress Progress Note : Time: 11:05 Progress Note Patient is in A. fib with a heart rate 98-105. Seems like the last few days she' s not had good control of her heart heart rate is acceptable at rest now. We'll obtain some basic labs reviewed history and if her heart rate maintains his level will talk to Dr. Paul about modifying her medications. Initial ECG Impression Date: Oct 18, 2018 Initial ECG Impression Time: 10:53 Initial ECG Rate: 98 Initial ECG Rhythm: A Fib/Flutter Initial ECG Intervals: Normal Initial ECG Impression: Atrial Fibrillation Initial ECG Comparisson: Unchanged Comment A. fib with a rate of 98. Lots of artifact. Diagnostic Imaging Diagonstic Imaging: Xray Plain Films/CT/US/NM/MRI: chest (2v) Comments NAME: TUSHAR ESTEVEZ [facility] REC#: [id number] PHYSICIAN: BROCK GUERRA MD CC: ANDRIA RICHTER; BROCK GUERRA Page 1 of 1 RADIOLOGY REPORT [facility] [place], [place] CC: ANDRIA RICHTER; BROCK GUERRA Page 1 of 1 RADIOLOGY REPORT NAME: HERBTUSHAR [facility] REC#: [id number] PT STATUS: REG ER : 1945 PHYSICIAN: BROCK GUERRA MD ADMIT DATE: 10/18/18/ER Signed Date of Exam: 10/18/18 CHEST PA/LAT (2 VIEW) INDICATION: Tachycardia COMPARISON: 10/09/2018 FINDINGS: Frontal and lateral views the chest demonstrate clear lungs bilaterally. The heart is slightly enlarged but stable.. There is no pneumothorax. Osseous structures are normal. IMPRESSION: No acute findings. Dictated by: Dictated on workstation # [id number] Dict: 10/18/18 1155 Trans: 10/18/18 1156 Interpreted by: ANDRIA RICHTER Electronically signed by: ANDRIA RICHTER 10/18/18 1156 Reviewed: Reviewed by Me Consults : Consulting Physician: QAAMR ANG MD [facility] Consults Notes After discussing the case, symptoms, EKG labs and previous interventions he would recommend we do 180 mg additional dose now have her continue the other regimen of 240+120 and see him in the clinic tomorrow. Departure Impression Primary Impression: History of atrial fibrillation Disposition: HOME, SELF-CARE Condition: Stable Departure-Patient Inst. Decision time for Depature: 12:05 Referrals: ANAY DARNELL DO (PCP/Family) Primary Care Physician QAMAR ANG MD [facility] Add. Discharge Instructions: Continue to take the Cardizem 240 mg in the morning and 120 mg at night. [address] Dr. Ang's clinic and request an appointment tomorrow to decide whether medication changes or discussed possibility of an ablation. If you begin to have chest pain, shortness of breath or other worrisome symptoms then you should return to the nearest ER. All discharge instructions reviewed with patient and/or family. Voiced understanding. BROCK GUERRA Oct 18, 2018 11:05
[2018-10-18 11:19] LABS: BASOPHILS # (AUTO) 0.1 10^3/uL (0.0-0.1); BASOPHILS % (AUTO) 1 % (0-10); EOSINOPHILS # (AUTO) 0.2 10^3/uL (0.0-0.3); EOSINOPHILS % (AUTO) 1 % (0-10); HEMATOCRIT 43 % (35-52); HEMOGLOBIN 14.6 G/DL (11.5-16.0); LYMPHOCYTES # (AUTO) 1.5 X 10^3 (1.0-4.0); LYMPHOCYTES % (AUTO) 14 % (12-44); MEAN CORPUSCULAR HEMOGLOBIN 29 PG (25-34); MEAN CORPUSCULAR HGB CONC 34 G/DL (32-36); MEAN CORPUSCULAR VOLUME 87 FL (80-99); MEAN PLATELET VOLUME 9.3 FL (7.4-10.4); MONOCYTES # (AUTO) 0.8 X 10^3 (0.0-1.0); MONOCYTES % (AUTO) 7 % (0-12); NEUTROPHILS % (AUTO) 77 % (42-75); PLATELET COUNT 322 10^3/uL (130-400); RED CELL DISTRIBUTION WIDTH 14.4 % (10.0-14.5); WHITE BLOOD COUNT 10.5 10^3/uL (4.3-11.0)
[2018-10-18 11:42] LABS: ALANINE AMINOTRANSFERASE 18 U/L (0-55); ALBUMIN 4.1 GM/DL (3.2-4.5); ALKALINE PHOSPHATASE 95 U/L (40-136); BILIRUBIN,TOTAL 0.8 MG/DL (0.1-1.0); BUN/CREATININE RATIO 25; CALCIUM 9.4 MG/DL (8.5-10.1); CARBON DIOXIDE 23 MMOL/L (21-32); CHLORIDE 108 MMOL/L (98-107); CREATININE SERUM 0.91 MG/DL (0.60-1.30); GFR ESTIMATED > 60; GLUCOSE 107 MG/DL (70-105); MAGNESIUM 1.8 MG/DL (1.8-2.4); POTASSIUM 4.1 MMOL/L (3.6-5.0); SODIUM 141 MMOL/L (135-145); TOTAL PROTEIN 6.9 GM/DL (6.4-8.2)
--- NOTE | 2018-10-18 11:58 | Diagnostic Imaging Report ---
INDICATION: Tachycardia COMPARISON: 10/09/2018 FINDINGS: Frontal and lateral views the chest demonstrate clear lungs bilaterally. The heart is slightly enlarged but stable.. There is no pneumothorax. Osseous structures are normal. IMPRESSION: No acute findings. Dictated by: Dictated on workstation # [id number]
[2018-10-18 12:10] VITALS: BP 128/77
[2018-10-18] MEDS ORDERED: DILTIAZEM 180 MG (CARDIZEM CD) CAP PO ONE (12:15)
== END 2018-10-18 12:10 | disposition home or self-care (01) ==
LOC: EDUNIT# 10:36 → ER 10:37
DX: I48.91 Unspecified atrial fibrillation (principal); J45.909 Unspecified asthma, uncomplicated; I10 Essential (primary) hypertension; E78.00 Pure hypercholesterolemia, unspecified; E11.9 Type 2 diabetes mellitus without complications; F32.9 Major depressive disorder, single episode, unspecified; Z87.440 Personal history of urinary (tract) infections; Z87.19 Personal history of other diseases of the digestive system; Z95.9 Presence of cardiac and vascular implant and graft, unspecified; Z88.1 Allergy status to other antibiotic agents; Z96.652 Presence of left artificial knee joint; Z96.641 Presence of right artificial hip joint; Z90.710 Acquired absence of both cervix and uterus; Z80.0 Family history of malignant neoplasm of digestive organs; Z80.42 Family history of malignant neoplasm of prostate; Z80.59 Family history of malignant neoplasm of other urinary tract organ; Z79.82 Long term (current) use of aspirin
CPT/HCPCS: 36415; 71046; 80053; 83735; 83880; 84484; 85025; 93005; 96360

== ENCOUNTER 2018-10-23 11:57 | Emergency (ER) | payer MEDICARE ==
[~2018-10-23] VITALS: Ht 170.2 cm; Wt 117.9 kg
--- OUTSIDE RECORDS SUMMARY | 2018-10-23 12:23 | XMS REPORT | Clinical Summary ---
Author Author [facility] Organization [facility] Address Unknown Phone Unavailable Care Team Providers Care Desizing Machine Operator Head End Name Role Phone Alan Ramachandran MD Unavailable Shefali Herring MD Unavailable Breanna Broderick DO PCP Jdoy Salazar RN Unavailable Unavailable Jass Loving MD Unavailable Carla Bernal MD Unavailable Unavailable Louise Knott MD Unavailable Park Han RN Unavailable Unavailable Breanna Lazo MD Unavailable Unavailable Marjorie Wilburn RN Unavailable Unavailable Gumaro Lynne MD Unavailable Glory Ford RN Unavailable Unavailable CatronQuintin Canas RN Unavailable Unavailable Adeel Avila MD Unavailable Source Comments Some departments are not documenting in the electronic medical record. If you do not see the information that you expected, contact Release of Information in the Health Information Management department at [phone] for further assistance in locating additional records.[facility] Allergies No Known Allergies Medications End [...] in a 24 hour period. Call your pricing consultant if you have to use this medication. [...] in a 24 hour period. Call your pricing consultant if you have to use this medication. Active Problems Problem Noted Date Coronary artery disease 10/02/2018 Hypertension 10/02/2018 Depression (disease) 10/02/2018 Hyperlipidemia 10/02/2018 Obstructive sleep apnea on CPAP 10/02/2018 Asthma 10/02/2018 Paroxysmal atrial fibrillation 10/01/2018 Morbid obesity 10/01/2018 Urge urinary incontinence 10/11/2017 Overview: Added automatically from request for surgery [id number] Urinary urgency 04/23/2017 Overview: Added automatically from request for surgery [id number] Urge incontinence 07/28/2012 Overview: Anticholinergic refractory urgency [...] botox 04/21/2016 - 150u botox 07/13/2016 - UTB=241pO; not performing timed and double voiding Last [...] Inhaled Oxygen - Concentration 10/01/2018 2:00 PM SADDLE AND SIDE WIRE STITCHER Weight 121.6 kg (268 lb) 10/01/2018 2:00 PM SADDLE AND SIDE WIRE STITCHER Height 170.2 cm (5' 7") 10/01/2018 2:00 PM SADDLE AND SIDE WIRE STITCHER Body Mass Index 41.97 Plan of Treatment Care Team Description Date Type Specialty Shefali Herring MD [address] [facility] [address] [place] [address] [phone] Urge incontinence 03/31/2019 Hospital Encounter Shefali Herring MD [address] [facility] [address] [place] [address] [phone] CYSTOURETHROSCOPY WITH INJECTION FOR CHEMODENERVATION OF THE [...] + DOPPLER Routine 10/01/2018 ECHOCARDIOGRAM 2:00 PM SADDLE AND SIDE WIRE STITCHER THYROID STIMULATING Add on 10/01/2018 HORMONE-TSH 4:29 AM SADDLE AND SIDE WIRE STITCHER HEMOGLOBIN A1C Add on 10/01/2018 4:29 AM S[employer] AND SIDE WIRE STITCHER LIPID PROFILE Routine 10/01/2018 4:29 AM [employer] AND SIDE WIRE STITCHER MAGNESIUM Routine 10/01/2018 4:29 AM S[employer]LE AND SIDE WIRE STITCHER COMPREHENSIVE METABOLIC Routine 10/01/2018 PANEL 4:29 AM [employer]LE AND SIDE WIRE STITCHER CBC AND DIFF Routine 10/01/2018 4:29 AM [employer] AND SIDE WIRE STITCHER CBC STAT 09/30/2018 6:10 PM SADDLE AND SIDE WIRE STITCHER PROTIME INR (PT) STAT 09/30/2018 6:10 PM SADD[employer] AND SIDE WIRE STITCHER TROPONIN-I STAT 09/30/2018 6:10 PM S[employer]LE AND SIDE WIRE STITCHER ECG 12-LEAD Routine 09/30/2018 4:42 PM S[employer] AND SIDE WIRE STITCHER TROPONIN-I 09/30/2018 2:13 PM S[employer] AND SIDE WIRE STITCHER PHOSPHORUS STAT 09/30/2018 2:13 PM S[employer] AND SIDE WIRE STITCHER MAGNESIUM STAT 09/30/2018 2:13 PM S[employer] AND SIDE WIRE STITCHER BASIC METABOLIC PANEL STAT 09/30/2018 2:13 PM S[employer] AND SIDE WIRE STITCHER CHEST SINGLE VIEW STAT 09/30/2018 2:11 PM SADD[employer] AND SIDE WIRE STITCHER CYSTOURETHROSCOPY WITH 09/30/2018 Urge urinary incontinence INJECTION FOR 10:25 AM SADDLE AND SIDE WIRE STITCHER CHEMODENERVATION OF THE BLADDER Special Needs 09/13 PER CHANGE FORM CASE MOVED FROM 09/27 TO 09/30 TO FOLLOW - Viola DEXTER RN ([id number]) TELEMETRY STRIPS-SCAN 09/30/2018 12:00 AM SADDLE AND SIDE WIRE STITCHER TELEMETRY STRIPS-SCAN 09/30/2018 12:00 AM SADDLE AND SIDE WIRE STITCHER TELEMETRY STRIPS-SCAN 09/30/2018 12:00 AM SADDLE AND SIDE WIRE STITCHER ECG-SCAN 09/30/2018 12:00 AM SADDLE AND SIDE WIRE STITCHER ECG-SCAN 09/30/2018 12:00 AM SADDLE AND SIDE WIRE STITCHER from Last 3 Months Results * CBC [...] Basophil Count Specimen Blood Performing Organization Address City/[facility]/Zipcode Phone Number MAIN LAB [address] [place] [address] * MAGNESIUM (10/02/2018 5:49 AM CDT) Only the most recent of 3 results within the time period is included. Magnesium 1.8 1.6 - 2.6 mg/dL [facility] MAIN [facility] Specimen Blood Performing Organization Address City/[facility] Phone Number MAIN LAB [address] [place] [address] * COMPREHENSIVE METABOLIC PANEL (10/02/2018 5:49 AM [...] >60 >60 mL/min [facility]IN [facility] Comment: [place] The eGFR is not validated for use in drug dosing adjustments.Continue to use estimated creatinine clearance per dosing reference text.Please contact the Clinical Pharmacist for questions. eGFR >60 >60 mL/min [facility] [place] Comment: The eGFR is not validated for use in drug dosing adjustments.Continue to use estimated creatinine clearance per dosing reference text.Please contact the Clinical Pharmacist for questions. Specimen Blood Performing Organization Address City/State/Zipcode Phone Number [facility]3] LAB [address] [place] [address] * 2-D + DOPPLER ECHOCARDIOGRAM (10/01/2018 2:00 PM SADDLE AND SIDE WIRE STITCHER) IVS 0.64 0.6 - 0.9 cm OTHER [...] 34 OTHER OUTSIDE Index LAB Cardiology Siemens CO1021 OTHER OUTSIDE Ultrasound LAB Machine Left Ventricle [...] * THYROID STIMULATING HORMONE-TSH (10/01/2018 4:29 AM SADDLE AND SIDE WIRE STITCHER) TSH 0.970 0.35 - 5.00 MCU/ML [facility] MAIN [facility] Performing Organization Address City/[facility]/Zipcode Phone Number [facility] MAIN [facility] [address] [place] [address] * HEMOGLOBIN A1C (10/01/2018 4:29 AM SADDLE AND SIDE WIRE STITCHER) Hemoglobin A1C 6.0 4.0 - 6.0 % [facility]IN [facility] Comment: The ADA recommends that most patients with type 1 and type 2 diabetes maintain an A1c level <7%. Performing Organization Address City/State/Zipcode Phone Number [facility]IN [facility] [address] [place] [address] * LIPID PROFILE (10/01/2018 4:29 AM SADDLE AND SIDE WIRE STITCHER) Cholesterol 123 <200 MG/DL [facility] MAIN LAB [...] 130 mg/dL. Specimen Blood Performing Organization Address [facility] Phone Number MAIN LAB [address] [place] [phone] * TROPONIN-I (09/30/2018 6:10 PM SADDLE AND SIDE WIRE STITCHER) Only the most recent of 2 results within the time period is included. Pathologist [facility] Troponin-I 0.01 0.0 - 0.05 NG/ML MAIN LAB Specimen Blood Performing Organization Address [facility] Phone Number MAIN LAB [address] [place] [phone] * PROTIME INR (PT) (09/30/2018 6:10 PM SADDLE AND SIDE WIRE STITCHER) Pathologist [facility] INR 1.0 0.8 - 1.2 MAIN LAB Specimen Blood Performing Organization Address [facility] Phone Number MAIN LAB [address] [place] [phone] * CBC (09/30/2018 6:10 PM SADDLE AND SIDE WIRE STITCHER) Pathologist [facility] White Blood 10.2 4.5 - 11.0 K/UL [...] MAIN LAB Specimen Blood Performing Organization Address [facility] Phone Number MAIN LAB [address] [place] [phone] * PHOSPHORUS (09/30/2018 2:13 PM SADDLE AND SIDE WIRE STITCHER) Phosphorus 3.4Comment: NOTE NEW REFERENCE 2.0 - 4.5 MG/DL [facility] MAIN LAB RANGES Specimen Blood Performing Organization Address [facility] Phone Number MAIN LAB [address] [place] [address] * BASIC METABOLIC PANEL (09/30/2018 2:13 PM SADDLE AND SIDE WIRE STITCHER) Sodium 142 137 - 147 MMOL/L [facility] [...] >60 >60 mL/min [facility] Comment: [place] The eGFR is not validated for use in drug dosing adjustments.Continue to use estimated creatinine clearance per dosing reference text.Please contact the Clinical Pharmacist for questions. eGFR >60 >60 mL/min [facility] [place] Comment: The eGFR is not validated for use in drug dosing adjustments.Continue to use estimated creatinine clearance per dosing reference text.Please contact the Clinical Pharmacist for questions. Specimen Blood Performing Organization Address City/State/Zipcode Phone Number MAIN LAB [address] [place] [address] * CHEST SINGLE VIEW (09/30/2018 2:11 PM SADDLE AND SIDE WIRE STITCHER) Impressions Performed At Poor depth of inspiration [...] Interface, Radiant Results - 09/30/2018 2:15 PM SADDLE AND SIDE WIRE STITCHER Single view of the chest Clinical history: [...] RESULTS * TELEMETRY STRIPS-SCAN (09/30/2018 12:00 AM SADDLE AND SIDE WIRE STITCHER) Narrative Performed At Ordered by an unspecified provider. * TELEMETRY STRIPS-SCAN (09/30/2018 12:00 AM SADDLE AND SIDE WIRE STITCHER) Narrative Performed At Ordered by an unspecified provider. * TELEMETRY STRIPS-SCAN (09/30/2018 12:00 AM SADDLE AND SIDE WIRE STITCHER) Narrative Performed At Ordered by an unspecified provider. * ECG-SCAN (09/30/2018 12:00 AM SADDLE AND SIDE WIRE STITCHER) Narrative Performed At Ordered by an unspecified provider. * ECG-SCAN (09/30/2018 12:00 AM SADDLE AND SIDE WIRE STITCHER) Narrative Performed At Ordered by an unspecified provider. from Last 3 Months Insurance Type Payer Benefit Subscriber ID Effective Phone Address Plan / Dates Group Medicare MEDICARE MEDICARE xxxxxxxxxx 2012-P PART A AND resent B PPO [facility] xxxxxxxxxxx 2012-P resent (Home) [place] [address] Advance Directives Patient has advance care planning documents, and code status on file. For more information, please contact: [facility] [address] [place] [address] Date Inactivated Comments Code Status Date Activated 10/02/2018 3:17 PM Full Code 09/30/2018 4:42 PM Provider has discussed Code Status Yes w/Patient or Family?
[2018-10-23] MEDS ORDERED: NS IV 1000 ML 1,000 ML IV SCH (12:24)
[2018-10-23] MEDS ORDERED: RT-LEVALBUTEROL (XOPENEX) 1.25 MG/3 ML NEB NON-FORMULARY INH STA (12:24)
--- OUTSIDE RECORDS SUMMARY | 2018-10-23 12:24 | XMS REPORT | Encounter Summary ---
Author Author [facility] Organization [facility] Address Unknown Phone Unavailable Care Team Providers Care Ug Designer Name Role Phone Alan Ramachandran MD Unavailable [...] incontinence Urge urinary incontinence [N39.41] P rocedures NM CYSTOURETHROSCOPY INJ CHEMODENERVATION BLADDER CYSTOSCOPY WITH BOTOX INJECTION (150 UNITS) Encounter Details Care Team Description Date Type Department Nathanael Bradley SRNA 09/30/2018 Anesthesia [facility] OR [address] [address] Anesthesia Record Responsible Anesthesiologist Anesthesia [...] (2); LMA; 4; 1 insertion Chriss, Joana, STREET SWEEPER OPERATOR attempt; Auscultation, End-tidal CO2; 09/30/18; 1037 documented [...] Susana Rojo MD - 09/30/2018 2:46 PM ACCOUNTS PAYABLES CLERK Post-Anesthesia Evaluation Name: Mame Archer : 1945 [...] Perioperative Event: No Emergency Case Activation: No UNTS PAYABLES CLERK Associated attestation - Yobani Bahena MD - 09/30/2018 4:11 PM ACCOUNTS PAYABLES CLERK ATTESTATION Post-Anesthesia Evaluation Attestation: I reviewed and agree the indicated post- anesthesia care was provided. 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 See a nurse practitioner home assessments for tachycarida ) Hyperlipidemia Denies CP or [...] patient and spouse Plan discussed with: anesthesiologist, STREET SWEEPER OPERATOR and SRNA. UNTS PAYABLES CLERK documented in this encounter Plan of Treatment Care Team Description Date Type Specialty Shefali Herring MD [address] [facility] [address] [place] [address] [phone] Urge incontinence 03/31/2019 Hospital Encounter Shefali Herring MD [address] [facility] [address] [place] [address] [phone] CYSTOURETHROSCOPY WITH INJECTION FOR CHEMODENERVATION OF THE BLADDER (BOTOX 150 UNITS) 03/31/2019 Surgery documented as of this encounter Results * ECG-SCAN (09/30/2018 12:00 AM ACCOUNTS PAYABLES CLERK) Narrative Performed At Ordered by an unspecified provider. documented in this encounter Visit Diagnoses Not on filedocumented in this encounter Administered Medications Action Date Dose Rate Site Medication Order MAR Action 09/30/2018 10:21 AM ACCOUNTS PAYABLES CLERK 2 g ceFAZolin (ANCEF) injection Given INTRA-PROCEDURE MED, Starting Wed09/30/18 at 1021, Until Wed09/30/18 at 1050, Anesthesia Intra-op 09/30/2018 10:25 AM ACCOUNTS PAYABLES CLERK 4 mg dexamethasone (DECADRON) injection Given Intravenous, INTRA-PROCEDURE MED, Starting Wed09/30/18 at 1025, Until Wed09/30/18 at 1050, Anesthesia Intra-op 09/30/2018 10:12 AM ACCOUNTS PAYABLES CLERK 2 drops dextran 70/hypromellose (GENTEAL TEARS; Given BION TEARS) ophthalmic solution INTRA-PROCEDURE MED, Starting Wed09/30/18 at 1012, Until Wed09/30/18 at 1050, Anesthesia Intra-op 09/30/2018 10:30 AM ACCOUNTS PAYABLES CLERK 10 mg ePHEDrine 50 mg/mL 50 mg in sodium Bolus chloride PF 0.9% 5 mL IV syringe 5 mL, INTRA-PROCEDURE MED(CONT), Starting Wed09/30/18 at 1015, Until Wed09/30/18 at 1050, Anesthesia Intra-op 10 mg Bolus 09/30/2018 10:22 AM ACCOUNTS PAYABLES CLERK 10 mg Given - New Bag 09/30/2018 10:15 AM ACCOUNTS PAYABLES CLERK 09/30/2018 10:10 AM ACCOUNTS PAYABLES CLERK 25 mcg fentaNYL citrate PF (SUBLIMAZE) Given injection INTRA-PROCEDURE MED, Starting Wed09/30/18 at 1010, Until Wed09/30/18 at 1050, Anesthesia Intra-op 09/30/2018 10:24 AM ACCOUNTS PAYABLES CLERK 0.2 mg glycopyrrolate (ROBINUL) injection Given INTRA-PROCEDURE MED, Starting Wed09/30/18 at 1015, Until Wed09/30/18 at 1050, Anesthesia Intra-op 0.2 mg Given 09/30/2018 10:15 AM ACCOUNTS PAYABLES CLERK 09/30/2018 11:33 AM ACCOUNTS PAYABLES CLERK 1,000 mL 20 mL/hr lactated ringers infusion Given - New 1,000 mL, 1,000 mL, Intravenous, at 20 Bag mL/hr, CONTINUOUS, Starting Wed09/30/18 at 0930, Until Wed09/30/18 at 1642, Pre-Op Given - New Bag 09/30/2018 9:55 AM ACCOUNTS PAYABLES CLERK 09/30/2018 10:10 AM ACCOUNTS PAYABLES CLERK 80 mg lidocaine (PF) injection Given INTRA-PROCEDURE MED, Starting Wed09/30/18 at 1010, Until Wed09/30/18 at 1050, Anesthesia Intra-op 09/30/2018 10:25 AM ACCOUNTS PAYABLES CLERK 4 mg ondansetron (ZOFRAN) injection Given Intravenous, INTRA-PROCEDURE MED, Starting Wed09/30/18 at 1025, Until Wed09/30/18 at 1050, Anesthesia Intra-op 09/30/2018 10:17 AM ACCOUNTS PAYABLES CLERK 40 mg propofol (DIPRIVAN) injection Given INTRA-PROCEDURE MED, Starting Wed09/30/18 at 1010, Until Wed09/30/18 at 1050, Anesthesia Intra-op 140 mg Given 09/30/2018 10:10 AM ACCOUNTS PAYABLES CLERK documented in this encounter
--- OUTSIDE RECORDS SUMMARY | 2018-10-23 12:24 | XMS REPORT | Encounter Summary ---
Author Author [facility] Organization [facility] Address Unknown Phone Unavailable Care Team Providers Care Snow Maker Name Role Phone Alan Ramachandran MD Unavailable [...] incontinence Urge urinary incontinence [N39.41] P rocedures DE CYSTOURETHROSCOPY INJ CHEMODENERVATION BLADDER CYSTOSCOPY WITH BOTOX INJECTION (150 UNITS) Encounter Details Care Team Description Date Type Department Shefali Herring MD [address] Ortho[facility]Med Pavilion L[address] [place] [address] [phone] Gumaro Dietrich MD [address] [place] [address] [phone] Inocente Kate MD [address] [place] [address] Atrial fibrillation with rapid ventricular response (HCC) 09/30/2018 [facility] 10/02/2018 [place] [address] Social History Date Tobacco Use Types Packs/Day [...] Inhaled Oxygen - Concentration 10/01/2018 2:00 PM COOLER SUPERVISOR Weight 121.6 kg (268 lb) 10/01/2018 2:00 PM COOLER SUPERVISOR Height 170.2 cm (5' 7") 10/01/2018 2:00 PM COOLER SUPERVISOR Body Mass Index 41.97 documented in this [...] Physician: Inocente Kate MD Service: [facility] Q - [id number] Physician Summary completed [...] - 2-D + DOPPLER ECHOCARDIOGRAM Location Performed: [facility] Status: Final result Procedure Ordered By: Megan Cutler MD [phone] Referring Provider: Interpreting Physician: Aram Rojas MD Fellow: Location of Interp: [facility] Editorial Writer: Lindsey Diaz Machine: [id number] [id number] Indications: Atrial fibrillation Study done at patient [...] peak velocity 1.86 m/s Signed at 1538 COOLER SUPERVISOR Brief Hospital Course: The patient was admitted [...] that she follow up with her primary kettle loader and have a zio patch or some sort of longer-term atrial fibrillation monitoring in order to determine whether she needed exterminator anticoagulation or if afib was truly ollie [...] or concerns regarding your hospital stay. Call [phone] Discharging attending physician: INOCENTE KATE [[id number]] Regular Diet You have no dietary restriction. [...] in a 24 hour period. Call your kettle loader if you have to use this medication. [...] a follow up appointment with your primary kettle loader in the next 2-4 weeks. Pending items needing follow up: 1. Ambulatory cardiac monitoring 2. Determination of anticoagulation timeline Signed: Inocente Kate MD 10/05/2018 cc: Primary Care Physician: Breanna Broderick Verified Referring physicians: Breanna Broderick DO Additional provider(s): Dr. Елена Ang [address] [place] [address] [phone] documented in this encounter Discharge Instructions * Patient Instructions* Karly Mcmillan RN - 09/30/2018 10:54 AM COOLER SUPERVISOR Discharge Instructions: After Your Surgery Youve just [...] interact with your prescription medicines or other hgmw-dkf-nhkzuta (OTC) medicines. Some prescription medicines have acetaminophen [...] of taking these medicines. Date Last Reviewed: 06/25/[id number] [employer]. [address] [place] [address], [place] [address]. All rights reserved. This information is not intended as a substitute for professional medical care. Always follow your healthcare professional's instructions. ER SUPERVISOR * Appointments* Inocente Kate MD - 10/02/2018 10:00 AM CDT Please schedule a follow up appointment with your primary kettle loader in the next 2-4 weeks. * Pre-Anesthesia Patient Instructions* Lucille Gomez RN - 09/06/2018 12:11 PM COOLER SUPERVISOR GENERAL INFORMATION Before you come to the [...] and any other valuables at home. The [facility] is not responsible for the loss or breakage of personal items. Remove nail nauruan, makeup and all jewelry (including piercings) before coming to the hospital. The morning of your procedure: brush your teeth and tongue do not smoke do not shave the area where you will have surgery What to bring to the hospital ID/ Insurance Card Employment Recruiter card Official documents for legal guardianship Copy of your Living Will, Advanced Directives, and/or Durable Power of Military Cook Small bag with a few personal belongings [...] do not receive a call, please call [phone] before 4:30pm or [phone] after 4:30pm. Notify us at [facility]: if you need to cancel your procedure if you are going to be late Arrival at the [facility] [address] [place] [address] Park in the [address], located directly across from the main entrance to the hospital. Printing Machine Mechanic parking is available from 7 AM to 4 PM Wednesday through Wednesday. Enter through the ground floor [facility] entrance and check in at the [...] if you need to provide a sample. ER SUPERVISOR * Pre-Anesthesia Medication Instructions* Lucille Gomez RN - 09/06/2018 12:13 PM COOLER SUPERVISOR YOUR MEDICATIONS: albuterol (VENTOLIN HFA, PROAIR HFA, [...] with any medicine updates or questions. E-mail: [email or web address] Before going home from the hospital, please ask your doctor when you should re- start your medicines that were stopped before surgery. ER SUPERVISOR documented in this encounter Medications at Time [...] in a 24 hour period. Call your kettle loader if you have to use this medication. [...] prescriptions. Patient to follow-up with her outside kettle loader for Zio patch. Return precautions discussed. Greater than 31 minutes spent in discharge planning including discussion with patient, placement of discharge orders, documentation of discharge summary. Inocente Kate MD [facility] Q- [id number] * Angle Montgomery RN [...] Belia Hansen MD - 10/01/2018 5:16 PM COOLER SUPERVISOR Cardiology progress note. Subjective: No acute events [...] may not repeat in ?24 hours) - [id number] at least 3. Discussed benefits and risk for anti-correlation. Patient is agreeable to proceed with anticoagulation at least temporary for the next 6 weeks. She will follow with outpatient cardiology with the results of the monitor monitor. Consideration for implantable loop recorder with discussion with outpatient kettle loader given 2 episodes of perioperative A. Fib to determine the longevity of anticoagulate. ER SUPERVISOR * Inocente Kate MD - 10/01/2018 11:33 AM COOLER SUPERVISOR Progress Note - Medicine Today's Date: 10/01/2018 [...] due to age, sex, hypertension Taking metoprolol JET OPERATOR 100 mg twice daily Started on diltiazem and converted to sinus rhythm on 09/30. Now with bradycardia, asymptomatic. We will decrease metoprolol to 50 mg twice daily Continue therapeutic anticoagulation for now, okay to discharge on Eliquis Cardiology discussed flecainide for abortive therapy Patient to follow-up with her home kettle loader for zio patch monitoring to determine long-term [...] her granddaughter. Inocente Kate MD [facility] Q- [id number] __ Subjective: No acute [...] and other Diagnostics Review: Pertinent radiology reviewed. ER SUPERVISOR * Liza Hendricks RN - 10/01/2018 10:43 AM COOLER SUPERVISOR Patient takes 5,000u vitamin D daily. Currently not on SEP. Sent text page to [facility] to notify. Tracking # [id number] ER SUPERVISOR * Mary Rowley - 10/01/2018 2:20 AM COOLER SUPERVISOR MP Swing 4 paged to notify that patient has been at lowest rate of cardizem drip for one hour, has converted to sinus bradycardia and is sustaining a HR of low 40's. Pt BP low 100s/50s and pt resting comfortably in bed. Per william OVALLE to DC drip at this time. RN will continue to monitor. Lynda Beltrán RN - 09/30/2018 5:18 PM COOLER SUPERVISOR Patient arrived to room # (HC815*) via [...] Doc Flowsheet for additional wound details. INTERVENTIONS: ER SUPERVISOR * Gumaro Dietrich MD - 09/30/2018 5:00 PM COOLER SUPERVISOR Notified of preference for central line with esmolol infusion if duration anticipated to be prolonged. Since she has had minimal response to initial doses of esmolol, favor switching to Cardizem for rate control. Additionally, confirmed with her kettle loader that she does not have a history of tachybradycardia syndrome and therefore a short acting agent is not the most important characteristic of the infused medication. Will switch to Cardizem with dose to titrate 5-15 mg to keep rate less than 110 greater than 60. Gumaro Dietrich MD ER SUPERVISOR * Lucille Gomez RN - 09/06/2018 12:06 PM COOLER SUPERVISOR PAC phone triage completed with patient for [...] and copy of instructions emailed to her ER SUPERVISOR documented in this encounter H&P Notes * Gumaro Dietrich MD - 09/30/2018 2:13 PM COOLER SUPERVISOR Admission H&P Department of Internal Medicine Assessment (current differential diagnosis) | Status Newonset atrial fibrillation with history of tachycardia (procedural physiologic stress v botulinum v ephedrine) | Asymptomatic, and the patient notes that historically had similar episodes.ERICH(2)DS(2)-VAsc score 3 and CVA risk ~3.2% per year for HTN, Age, Sex. Follows with a Combat Engineer in [facility], and she notes she has had "fast [...] 3:34 PM I spoke with her primary Combat Engineer, who states after his note review that she has a history of palpitations, but no documented arrhythmia. Coronary artery disease | Asymptomatic. Prior to admission, on aspirin 81 mg daily. Her primary Combat Engineer highlighted that in 2006 she had a catheterization that demonstrated mild coronary artery disease. RBBB | Not new. Noted on old EKG. Asthma | Controlled, with no evidence of exacerbation. Prior to admission, on Singulair and albuterol asneeded. Has not regularly needed it. Tolerates beta-coy JET OPERATOR with no bronchospasm. Urinary incontinence | Status [...] mg every afternoon. ADOLPH | On CPAP JET OPERATOR Morbid obesity | Body mass index is [...] CBC/INR TSH *I spoke with her Primary Combat Engineer: Dr. Елена Ang [address] [place] [address] 13055 [phone] Pager (I spoke with Urology, who stated [...] peripheral arterial disease. I spoke with her kettle loader, and he highlighted that she had a [...] REPLACEMENT Left 09/14/2012 HIP REPLACEMENT Right 05/25/2013 DE CYSTOURETHROSCOPY INJ CHEMODENERVATION BLADDER N/A 10/22/2015 CYSTOSCOPY, INTRAVESICAL BOTOX INJECTION (150Units) performed by Shefali Herring MD at Main OR/Periop DE CYSTOURETHROSCOPY INJ CHEMODENERVATION BLADDER N/A 04/21/2016 CYSTOSCOPY, INTRAVESICAL BOTOX INJECTION (150 UNITS) performed by Shefali Herring MD at Main OR/Periop ABDOMINAL HERNIA REPAIR 05/2016 DE NDSC NJX IMPLT MATRL URT&/BLDR NCK N/A 10/23/2016 CYSTOSCOPY, INJECTION BOTOX (150 UNITS) performed by Shefali Herring MD at Main OR/Periop DE CYSTOURETHROSCOPY INJ CHEMODENERVATION BLADDER N/A 04/23/2017 CYSTOSCOPY, INJECTION BOTOX (150 UNITS) performed by Shefali Herring MD at Main OR/Periop CYSTOSCOPY N/A 09/28/2017 CYSTOSCOPY, INJECTION BOTOX (150 UNITS) performed by Shefali Herring MD at Main OR/Periop DE CYSTOURETHROSCOPY INJ CHEMODENERVATION BLADDER N/A 03/29/2018 CYSTOSCOPY, [...] PACU I spoke directly with the Urologist. ER SUPERVISOR * Shefali Herring MD - 09/30/2018 9:48 AM COOLER SUPERVISOR Admission History and Physical Examination Name: Mame [...] REPLACEMENT Left 09/14/2012 HIP REPLACEMENT Right 05/25/2013 DE CYSTOURETHROSCOPY INJ CHEMODENERVATION BLADDER N/A 10/22/2015 CYSTOSCOPY, INTRAVESICAL BOTOX INJECTION (150Units) performed by Shefali Herring MD at Main OR/Periop DE CYSTOURETHROSCOPY INJ CHEMODENERVATION BLADDER N/A 04/21/2016 CYSTOSCOPY, INTRAVESICAL BOTOX INJECTION (150 UNITS) performed by Shefali Herring MD at Main OR/Periop ABDOMINAL HERNIA REPAIR 05/2016 DE NDSC NJX IMPLT MATRL URT&/BLDR NCK N/A 10/23/2016 CYSTOSCOPY, INJECTION BOTOX (150 UNITS) performed by Shefali Herring MD at Main OR/Periop DE CYSTOURETHROSCOPY INJ CHEMODENERVATION BLADDER N/A 04/23/2017 CYSTOSCOPY, INJECTION BOTOX (150 UNITS) performed by Shefali Herring MD at Main OR/Periop CYSTOSCOPY N/A 09/28/2017 CYSTOSCOPY, INJECTION BOTOX (150 UNITS) performed by Shefali Herring MD at Main OR/Periop DE CYSTOURETHROSCOPY INJ CHEMODENERVATION BLADDER N/A 03/29/2018 CYSTOSCOPY, [...] Pertinent radiology reviewed. Malcom Chaidez MD Pager [phone] ATTESTATION I personally performed the westfall portions of the E/M visit, discussed case with resident and concur with resident documentation of history, physical exam, assessment, and treatment plan unless otherwise noted. Staff name: Shefali Herring MD ER SUPERVISOR documented in this encounter Consult Notes * Megan Cutler MD - 09/30/2018 5:05 PM COOLER SUPERVISOR Associated Order(s): CONSULT CARDIOLOGY PHYSICIAN STAFF CARDIOLOGY CONSULT NOTE Admission Date: 09/30/2018 Code Status: Full Code Reason for Consultation: New onset atrial fibrillation History of Present Illness: This is a 73 y.o. white female patient that was admitted to [facility] 2 undergo Botox injection of her [...] was restored. Patient does follow-up with a kettle loader in [place], [place]. She underwent a left heart catheterization in 2006, she was not found to have any significantly obstructive coronary artery disease. She was seen by her kettle loader a few days ago and was found [...] another surgical procedure. Patient follows with a kettle loader in [place], [place] and she does not have coronary [...] diet 9. Patient will follow-up with her kettle loader in her hometown. Megan Cutler MD ER SUPERVISOR documented in this encounter Miscellaneous Notes * [...] Carlo He MD - 10/01/2018 3:50 AM COOLER SUPERVISOR Please page [phone] with any questions until 8am after that please page med private Q ER SUPERVISOR * Operative Report (Direct Entry) - Shefali Herring MD - 09/30/2018 10:25 AM COOLER SUPERVISOR OPERATIVE REPORT Name: Mame Archer is a [...] Date Type Specialty Shefali Herring MD [address] [facility] Orth[facility]/Med Pavilion Lvl [address] [place] [address] Urge incontinence 03/31/2019 Hospital Encounter Shefali Herring MD [address] Ortho/Med Pavilion Lvl [address] [place] [address] CYSTOURETHROSCOPY WITH INJECTION FOR CHEMODENERVATION OF THE BLADDER (BOTOX 150 UNITS) 03/31/2019 Surgery documented as of this encounter Procedures Comments Procedure Name Priority Date/Time Associated Diagnosis CBC AND DIFF Routine 10/02/2018 5:49 AM CDT MAGNESIUM Routine 10/02/2018 5:49 AM CDT COMPREHENSIVE METABOLIC Routine 10/02/2018 PANEL 5:49 AM CDT 2-D + DOPPLER Routine 10/01/2018 ECHOCARDIOGRAM 2:00 PM COOLER SUPERVISOR CBC AND DIFF Routine 10/01/2018 4:29 AM COOLER SUPERVISOR THYROID STIMULATING Add on 10/01/2018 HORMONE-TSH 4:29 AM COOLER SUPERVISOR MAGNESIUM Routine 10/01/2018 4:29 AM COOLER SUPERVISOR HEMOGLOBIN A1C Add on 10/01/2018 4:29 AM COOLER SUPERVISOR LIPID PROFILE Routine 10/01/2018 4:29 AM COOLER SUPERVISOR COMPREHENSIVE METABOLIC Routine 10/01/2018 PANEL 4:29 AM COOLER SUPERVISOR TROPONIN-I STAT 09/30/2018 6:10 PM COOLER SUPERVISOR PROTIME INR (PT) STAT 09/30/2018 6:10 PM COOLER SUPERVISOR CBC STAT 09/30/2018 6:10 PM COOLER SUPERVISOR ECG 12-LEAD Routine 09/30/2018 4:42 PM COOLER SUPERVISOR TROPONIN-I 09/30/2018 2:13 PM COOLER SUPERVISOR PHOSPHORUS STAT 09/30/2018 2:13 PM COOLER SUPERVISOR MAGNESIUM STAT 09/30/2018 2:13 PM COOLER SUPERVISOR BASIC METABOLIC PANEL STAT 09/30/2018 2:13 PM COOLER SUPERVISOR CHEST SINGLE VIEW STAT 09/30/2018 2:11 PM COOLER SUPERVISOR CYSTOURETHROSCOPY WITH 09/30/2018 Urge urinary incontinence INJECTION FOR 10:25 AM COOLER SUPERVISOR CHEMODENERVATION OF THE BLADDER Special Needs 09/13 PER CHANGE FORM CASE MOVED FROM 09/27 TO 09/30 TO FOLLOW - CSesar DEXTER RN ([id number]) TELEMETRY STRIPS-SCAN 09/30/2018 12:00 AM COOLER SUPERVISOR TELEMETRY STRIPS-SCAN 09/30/2018 12:00 AM COOLER SUPERVISOR TELEMETRY STRIPS-SCAN 09/30/2018 12:00 AM COOLER SUPERVISOR ECG-SCAN 09/30/2018 12:00 AM COOLER SUPERVISOR documented in this encounter Results * MAGNESIUM (10/02/2018 5:49 AM CDT) Magnesium 1.8 1.6 - 2.6 mg/dL [facility] Specimen Blood Performing Organization Address [facility] Phone Number [facility] [address] [place] [address] * COMPREHENSIVE METABOLIC PANEL (10/02/2018 5:49 AM [...] >60 >60 mL/min [facility] Comment: [place] The eGFR is not validated for use in drug dosing adjustments.Continue to use estimated creatinine clearance per dosing reference text.Please contact the Clinical Pharmacist for questions. eGFR >60 >60 mL/min [facility] [place] Comment: The eGFR is not validated for use in drug dosing adjustments.Continue to use estimated creatinine clearance per dosing reference text.Please contact the Clinical Pharmacist for questions. Specimen Blood Performing Organization Address [facility] Phone Number [facility] [address] [place] [address] * CBC AND DIFF (10/02/2018 5:49 AM CDT) [facility] White Blood 6.4 4.5 - 11.0 [...] Address City/State/Zipcode Phone Number MAIN LAB [address] [place] [phone] * 2-D + DOPPLER ECHOCARDIOGRAM (10/01/2018 2:00 PM COOLER SUPERVISOR) [facility] IVS 0.64 0.6 - 0.9 cm [...] 34 OTHER OUTSIDE Index LAB Cardiology Siemens [id number] OTHER OUTSIDE Ultrasound LAB Machine Left Ventricle [...] * THYROID STIMULATING HORMONE-TSH (10/01/2018 4:29 AM COOLER SUPERVISOR) TSH 0.970 0.35 - 5.00 MCU/ML [facility] Performing Organization Address City/State/Zipcode Phone Number [facility] [address] [place] [address] * HEMOGLOBIN A1C (10/01/2018 4:29 AM COOLER SUPERVISOR) Hemoglobin A1C 6.0 4.0 - 6.0 % [facility] Comment: The ADA recommends that most patients with type 1 and type 2 diabetes maintain an A1c level <7%. Performing Organization Address [facility] Phone Number MAIN LAB [address] [place] [address] * MAGNESIUM (10/01/2018 4:29 AM COOLER SUPERVISOR) Pathologist [facility] Magnesium 1.9 1.6 - 2.6 mg/dL [facility] Specimen Blood Performing Organization Address [facility] Phone Number MAIN LAB [address] [place] [address] * COMPREHENSIVE METABOLIC PANEL (10/01/2018 4:29 AM COOLER SUPERVISOR) Pathologist [facility] Sodium 141 137 - 147 MMOL/L [facility] [...] >60 >60 mL/min [facility] Comment: [place] The eGFR is not validated for use in drug dosing adjustments.Continue to use estimated creatinine clearance per dosing reference text.Please contact the Clinical Pharmacist for questions. eGFR >60 >60 mL/min [facility] [place] Comment: The eGFR is not validated for use in drug dosing adjustments.Continue to use estimated creatinine clearance per dosing reference text.Please contact the Clinical Pharmacist for questions. Specimen Blood Performing Organization Address [facility]/Zipcode Phone Number MAIN LAB [address] [place] [address] * CBC AND DIFF (10/01/2018 4:29 AM COOLER SUPERVISOR) White Blood 9.1 4.5 - 11.0 K/UL [...] Basophil Count Specimen Blood Performing Organization Address City/[facility]/Zipcode Phone Number MAIN LAB [address] [place] [address] * LIPID PROFILE (10/01/2018 4:29 AM COOLER SUPERVISOR) [facility] Cholesterol 123 <200 MG/DL [facility] MAIN [...] 130 mg/dL. Specimen Blood Performing Organization Address City/[facility]/Zipcode Phone Number MAIN LAB [address] [place] [address] * CBC (09/30/2018 6:10 PM COOLER SUPERVISOR) [facility] White Blood 10.2 4.5 - 11.0 [...] MAIN LAB Specimen Blood Performing Organization Address City/[facility]/Zipcode Phone Number MAIN LAB [address] [place] [address] * PROTIME INR (PT) (09/30/2018 6:10 PM COOLER SUPERVISOR) [facility] INR 1.0 0.8 - 1.2 MAIN LAB Specimen Blood Performing Organization Address City/[facility] Phone Number MAIN LAB [address] [place] [phone] * TROPONIN-I (09/30/2018 6:10 PM COOLER SUPERVISOR) [facility] Troponin-I 0.01 0.0 - 0.05 NG/ML MAIN LAB Specimen Blood Performing Organization Address [facility] Phone Number MAIN LAB [address] [place] [address] * TROPONIN-I (09/30/2018 2:13 PM COOLER SUPERVISOR) [facility] Troponin-I 0.01 0.0 - 0.05 NG/ML MAIN LAB Performing Organization Address [facility] Phone Number MAIN LAB [address] [place] [address] * PHOSPHORUS (09/30/2018 2:13 PM COOLER SUPERVISOR) [facility] Phosphorus 3.4Comment: NOTE NEW REFERENCE 2.0 - 4.5 MG/DL MAIN LAB RANGES Specimen Blood Performing Organization Address [facility]/Zipcode Phone Number MAIN LAB [address] [place] [address] * MAGNESIUM (09/30/2018 2:13 PM COOLER SUPERVISOR) Magnesium 1.9 1.6 - 2.6 mg/dL [facility] Specimen Blood Performing Organization Address City/[facility]/Zipcode Phone Number MAIN LAB [address] [place] [address] * BASIC METABOLIC PANEL (09/30/2018 2:13 PM COOLER SUPERVISOR) Sodium 142 137 - 147 MMOL/L [facility] [...] >60 >60 mL/min [facility] Comment: [place] The eGFR is not validated for use in drug dosing adjustments.Continue to use estimated creatinine clearance per dosing reference text.Please contact the Clinical Pharmacist for questions. eGFR >60 >60 mL/min [facility] [place] Comment: The eGFR is not validated for use in drug dosing adjustments.Continue to use estimated creatinine clearance per dosing reference text.Please contact the Clinical Pharmacist for questions. Specimen Blood Performing Organization Address City/[facility]/Zipcode Phone Number MAIN LAB [address] [place] [phone] * CHEST SINGLE VIEW (09/30/2018 2:11 PM COOLER SUPERVISOR) Impressions Performed At Poor depth of inspiration [...] Interface, Radiant Results - 09/30/2018 2:15 PM COOLER SUPERVISOR Single view of the chest Clinical history: [...] RESULTS * TELEMETRY STRIPS-SCAN (09/30/2018 12:00 AM COOLER SUPERVISOR) Narrative Performed At Ordered by an unspecified provider. * TELEMETRY STRIPS-SCAN (09/30/2018 12:00 AM COOLER SUPERVISOR) Narrative Performed At Ordered by an unspecified provider. * TELEMETRY STRIPS-SCAN (09/30/2018 12:00 AM COOLER SUPERVISOR) Narrative Performed At Ordered by an unspecified provider. * ECG-SCAN (09/30/2018 12:00 AM COOLER SUPERVISOR) Narrative Performed At Ordered by an unspecified provider. documented in this encounter Visit Diagnoses Diagnosis Atrial fibrillation with rapid ventricular response (HCC) - Primary Atrial fibrillation Urge incontinence Paroxysmal atrial fibrillation (HCC) Atrial fibrillation Morbid obesity (HCC) Morbid obesity Coronary artery disease Coronary atherosclerosis of unspecified type of vessel, [place] or graft Hypertension Unspecified essential hypertension Depression [...] Medication Order MAR Action 10/01/2018 12:10 PM COOLER SUPERVISOR 650 mg acetaminophen (TYLENOL) tablet 650 mg [...] juice., 10 mg Given 10/01/2018 10:03 AM COOLER SUPERVISOR 10 mg Given 09/30/2018 5:47 PM COOLER SUPERVISOR 10/02/2018 10:13 AM CDT 81 mg aspirin EC tablet 81 mg Given 81 mg, Oral, DAILY, First dose on Wed10/01/18 at 0900, Until Discontinued 81 mg Given 10/01/2018 10:04 AM COOLER SUPERVISOR 10/01/2018 8:37 PM COOLER SUPERVISOR 80 mg atorvastatin (LIPITOR) tablet 80 mg Given 80 mg, Oral, AT BEDTIME DAILY, First dose on Wed09/30/18 at 2100, Until Discontinued 80 mg Given 09/30/2018 9:05 PM [employer]OLER SUPERVISOR 10/02/2018 10:13 AM CDT 5,000 Units cholecalciferol (VITAMIN D-3) tablet Given 5,000 Units 5,000 Units, Oral, DAILY, First dose on Wed10/01/18 at 1245, Until Discontinued 5,000 Units Given 10/01/2018 12:10 PM [employer]ER SUPER[employer]OR 10/01/2018 1:37 AM [employer]ER SUPERVISOR 5 mg/hr 5 mL/hr diltiazem (cardIZEM) 125 [...] Given - New Bag 10/01/2018 1:19 AM [employer]ER SUPER[employer]OR 10 mg/hr 10 mL/hr Dose/Rate Change 10/01/2018 1:06 AM [employer]ER SUPER[employer] 10/02/2018 6:07 AM CDT 120 mg Abdominal [...] mg Abdominal Tissue Given 10/01/2018 5:48 PM [employer]ER SUPERVISOR 120 mg Abdominal Tissue Given 10/01/2018 6:05 AM [employer]ER SUPERVISOR 09/30/2018 4:52 PM [employer]ER SUPER[employer]OR 175 mcg/kg/min 126 mL/hr esmolol (BREVIBLOC) 2500 [...] 90 mL/hr Dose/Rate Change 09/30/2018 4:06 PM [employer]ER SUPER[employer]OR 100 mcg/kg/min 72 mL/hr Dose/Rate Change 09/30/2018 3:46 PM [employer]ER SUPER[employer]OR 10/02/2018 10:13 AM CDT 0.5 mg estradiol (ESTRACE) tablet 0.5 mg Given 0.5 mg, Oral, DAILY, First dose on Wed10/01/18 at 0900, Until Discontinued 0.5 mg Given 10/01/2018 10:05 AM [employer]ER SUPERVISOR 09/30/2018 11:33 AM [employer]ER SUPERVISOR 1,000 mL 20 mL/hr lactated ringers infusion Given - New 1,000 mL, 1,000 mL, Intravenous, at 20 Bag mL/hr, CONTINUOUS, Starting Wed09/30/18 at 0930, Until Wed09/30/18 at 1642, Pre-Op Given - New Bag 09/30/2018 9:55 AM [employer]ER SUPER[employer]OR 10/01/2018 10:04 AM [employer]ER SUPERVISOR 535 mg magnesium chloride (MAG DELAY) tablet Given 535 mg 535 mg, Oral, TWICE DAILY, 2 doses, First dose on Wed09/30/18 at 1515, Last dose on Wed10/01/18 at 0900, Each 535mg delivers 64mg elemental magnesium., 535 mg Given 09/30/2018 3:42 PM [employer]ER SUPERVISOR 09/30/2018 12:38 PM [employer]ER SUPERVISOR 10 mg metoprolol (LOPRESSOR) injection 10 mg Given 10 mg, Intravenous, ONCE, 1 dose, Wed09/30/18 at 1245, PROTECT FROM LIGHT, PACU (only) 09/30/2018 11:35 AM [employer]ER SUPERVISOR 5 mg metoprolol (LOPRESSOR) injection 5 mg Given 5 mg, Intravenous, ONCE, 1 dose, Wed09/30/18 at 1145, PROTECT FROM LIGHT, PACU (only) 09/30/2018 11:58 AM [employer]ER SUPERVISOR 5 mg metoprolol (LOPRESSOR) injection 5 mg Given 5 mg, Intravenous, ONCE, 1 dose, Wed09/30/18 at 1200, PROTECT FROM LIGHT, PACU (only) 09/30/2018 12:17 PM [employer]ER SUPERVISOR 5 mg metoprolol (LOPRESSOR) injection 5 mg Given 5 mg, Intravenous, ONCE, 1 dose, Wed09/30/18 at 1230, PROTECT FROM LIGHT, PACU (only) 09/30/2018 9:05 PM CO[employer]ER SUPERVISOR 100 mg metoprolol tartrate (LOPRESSOR) tablet Given [...] Created by cabinet override, 10/01/2018 8:37 PM CO[employer]ER SUPERVISOR 10 mg montelukast (SINGULAIR) tablet 10 mg Given 10 mg, Oral, AT BEDTIME DAILY, First dose on Wed09/30/18 at 2100, Until Discontinued 10 mg Given 09/30/2018 9:05 PM CO[employer]ER SUPERVISOR 09/30/2018 4:07 PM COOLER SUPERVISOR 100 Units ONAbotulinum toxin (BOTOX) syringe 100 Given - See Units OR/Proc 100 Units, SEE ADMIN INSTRUCTIONS, ONCE, Flowsheet 1 dose, Wed09/30/18 at 0730, ++For immediate use ++ Short Stability++, 10/01/2018 2:01 PM COOLER SUPERVISOR 1 Diluted mL perflutren lipid microspheres (DEFINITY) Given injection 1-20 Diluted mL 1-20 Diluted mL, Intravenous, ONCE PRN, 1 dose, Starting 10/01/18 at 1305, Until 10/01/18 at 1401, For Procedure, A photoengraving sketch maker may only administer Definity through a saline [...] Discontinued 150 mg Given 10/01/2018 10:04 AM COOLER SUPERVISOR 10/01/2018 8:37 PM [employer]ER SUPERVISOR 50 mg traZODone (DESYREL) tablet 50 mg Given 50 mg, Oral, AT BEDTIME DAILY, First dose on Wed09/30/18 at 2100, Until Discontinued 50 mg Given 09/30/2018 9:05 PM [employer]ER SUPERVISOR 10/02/2018 10:14 AM CDT 1 tablet triamterene-hydrochlorothiazide Given (MAXZIDE) 37.5-25 mg tablet 1 tablet 1 tablet, Oral, EVERY MORNING, First dose on 10/01/18 at 0800, Until Discontinued 1 tablet Given 10/01/2018 10:04 AM COOLER SUPERVISOR documented in this encounter
--- OUTSIDE RECORDS SUMMARY | 2018-10-23 12:25 | XMS REPORT | Encounter Summary ---
Author Author [facility] Organization [facility] Address Unknown Phone Unavailable Care Team Providers Care Project Controls Scheduler Name Role Phone Alan Ramachandran MD Unavailable [...] incontinence Urge urinary incontinence [N39.41] P rocedures CA CYSTOURETHROSCOPY INJ CHEMODENERVATION BLADDER CYSTOSCOPY WITH BOTOX INJECTION (150 UNITS) Encounter Details Care Team Description Date Type Department Shefali Herring MD [address] Ortho/Med Pavilion L[address] [place] [address] CYSTOSCOPY WITH BOTOX INJECTION (150 UNITS) 09/30/2018 Surgery [facility] OR [address] [address] Social History Date Tobacco Use [...] Inhaled Oxygen - Concentration 10/01/2018 2:00 PM 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 Weight 121.6 kg (268 lb) 10/01/2018 2:00 PM 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 Height 170.2 cm (5' 7") 10/01/2018 2:00 PM 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 Body Mass Index 41.97 documented in this [...] 10/02/2018 Attending Physician: Inocente Kate MD Service: [facility] Q - [id number] Physician Summary completed by: [...] - 2-D + DOPPLER ECHOCARDIOGRAM Location Performed: [facility] Status: Final result Procedure Ordered By: Megan Cutler MD [phone] Referring Provider: Interpreting Physician: Aram Rojas MD Fellow: Location of Interp: [facility] Final Inspector Paper: Lindsey Diaz Machine: Siemens [id number] Indications: Atrial fibrillation Study done at patient [...] peak velocity 1.86 m/s Signed at 1538 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 Brief Hospital Course: The patient was admitted [...] that she follow up with her primary supply crib attendant and have a zio patch or some sort of longer-term atrial fibrillation monitoring in order to determine whether she needed predatory animal exterminator anticoagulation or if afib was truly [...] or concerns regarding your hospital stay. Call [phone] Discharging attending physician: INOCENTE KATE [[id number]] Regular Diet You have no dietary restriction. [...] in a 24 hour period. Call your supply crib attendant if you have to use this medication. [...] a follow up appointment with your primary supply crib attendant in the next 2-4 weeks. Pending items needing follow up: 1. Ambulatory cardiac monitoring 2. Determination of anticoagulation timeline Signed: Inocente Kate MD 10/05/2018 cc: Primary Care Physician: Breanna Broderick Verified Referring physicians: Breanna Broderick DO Additional provider(s): Dr. Елена Ang [address] [place] [phone] documented in this encounter Discharge Instructions * Patient Instructions* Karly Mcmillan RN - 09/30/2018 10:54 AM 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 Discharge Instructions: After Your Surgery Youve just [...] interact with your prescription medicines or other dmce-utn-pdteacl (OTC) medicines. Some prescription medicines have acetaminophen [...] of taking these medicines. Date Last Reviewed: 06/25/201619991428-1642 [employer]. [address] [place] [address]. All rights reserved. This information is not intended as a substitute for professional medical care. Always follow your healthcare professional's instructions. TROPLATING LABORER * Appointments* Inocente Kate MD - 10/02/2018 10:00 AM CDT Please schedule a follow up appointment with your primary supply crib attendant in the next 2-4 weeks. * Pre-Anesthesia Patient Instructions* Lucille Gomez RN - 09/06/2018 12:11 PM 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 GENERAL INFORMATION Before you come to the [...] and any other valuables at home. The [facility] is not responsible for the loss or breakage of personal items. Remove nail latvian, makeup and all jewelry (including piercings) before coming to the hospital. The morning of your procedure: brush your teeth and tongue do not smoke do not shave the area where you will have surgery What to bring to the hospital ID/ Insurance Card Bull Bucker card Official documents for legal guardianship Copy of your Living Will, Advanced Directives, and/or Durable Power of Painter Airbrush Small bag with a few personal belongings [...] do not receive a call, please call [phone] before 4:30pm or [phone] after 4:30pm. Notify us at [facility]: if you need to cancel your procedure if you are going to be late Arrival at the [facility] [address] [place] [address] Park in the Parking Garage, located directly across from the main entrance to the hospital. [employer] parking is available from 7 AM to [...] if you need to provide a sample. TROPLATING LABORER * Pre-Anesthesia Medication Instructions* Lucille Gomez RN - 09/06/2018 12:13 PM 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 YOUR MEDICATIONS: albuterol (VENTOLIN HFA, PROAIR HFA, [...] with any medicine updates or questions. E-mail: [email or web address] Before going home from the hospital, please ask your doctor when you should re- start your medicines that were stopped before surgery. TROPLATING LABORER documented in this encounter Medications at Time [...] in a 24 hour period. Call your supply crib attendant if you have to use this medication. [...] prescriptions. Patient to follow-up with her outside supply crib attendant for Zio patch. Return precautions discussed. Greater than 31 minutes spent in discharge planning including discussion with patient, placement of discharge orders, documentation of discharge summary. Inocente Kate MD [facility] Q- [id number] * Angle Montgomery RN [...] Belia Hansen MD - 10/01/2018 5:16 PM 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 Cardiology progress note. Subjective: No acute events [...] may not repeat in ?24 hours) - [id number] at least 3. Discussed benefits and risk for anti-correlation. Patient is agreeable to proceed with anticoagulation at least temporary for the next 6 weeks. She will follow with outpatient cardiology with the results of the monitor monitor. Consideration for implantable loop recorder with discussion with outpatient supply crib attendant given 2 episodes of perioperative A. Fib to determine the longevity of anticoagulate. TROPLATING LABORER * Inocente Kate MD - 10/01/2018 11:33 AM 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 Progress Note - Medicine Today's Date: 10/01/2018 [...] due to age, sex, hypertension Taking metoprolol SPA SUPERVISOR 100 mg twice daily Started on diltiazem and converted to sinus rhythm on 09/30. Now with bradycardia, asymptomatic. We will decrease metoprolol to 50 mg twice daily Continue therapeutic anticoagulation for now, okay to discharge on [facility] Cardiology discussed flecainide for abortive therapy Patient to follow-up with her home supply crib attendant for zio patch monitoring to determine long-term [...] patient and her granddaughter. Inocente Kate MD [facility] Q- [id number] __ Subjective: No acute overnight events. Patient [...] and other Diagnostics Review: Pertinent radiology reviewed. TROPLATING LABORER * Liza Hendricks RN - 10/01/2018 10:43 AM 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 Patient takes 5,000u vitamin D daily. Currently not on SEP. Sent text page to [facility] to notify. Tracking # [id number] TROPLATING LABORER * Mary Rowley - 10/01/2018 2:20 AM 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 MP Swing 4 paged to notify that [...] Lynda Barroso RN - 09/30/2018 5:18 PM 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 Patient arrived to room # (HC815*) via [...] Doc Flowsheet for additional wound details. INTERVENTIONS: TROPLATING LABORER * Gumaro Dietrich MD - 09/30/2018 5:00 PM 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 Notified of preference for central line with esmolol infusion if duration anticipated to be prolonged. Since she has had minimal response to initial doses of esmolol, favor switching to Cardizem for rate control. Additionally, confirmed with her supply crib attendant that she does not have a history of tachybradycardia syndrome and therefore a short acting agent is not the most important characteristic of the infused medication. Will switch to Cardizem with dose to titrate 5-15 mg to keep rate less than 110 greater than 60. Gumaro Dietrich MD TROPLATING LABORER * Lucille Gomez RN - 09/06/2018 12:06 PM 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 PAC phone triage completed with patient for [...] and copy of instructions emailed to her TROPLATING LABORER documented in this encounter H&P Notes * Gumaro Dietrich MD - 09/30/2018 2:13 PM 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 Admission H&P Department of Internal Medicine Assessment (current differential diagnosis) | Status Newonset atrial fibrillation with history of tachycardia (procedural physiologic stress v botulinum v ephedrine) | Asymptomatic, and the patient notes that historically had similar episodes.ERICH(2)DS(2)-VAsc score 3 and CVA risk ~3.2% per year for HTN, Age, Sex. Follows with a Health Insurance Assessor in [facility], and she notes she has had [...] 3:34 PM I spoke with her primary Health Insurance Assessor, who states after his note review that she has a history of palpitations, but no documented arrhythmia. Coronary artery disease | Asymptomatic. Prior to admission, on aspirin 81 mg daily. Her primary Health Insurance Assessor highlighted that in 2006 she had a catheterization that demonstrated mild coronary artery disease. RBBB | Not new. Noted on old EKG. Asthma | Controlled, with no evidence of exacerbation. Prior to admission, on Singulair and albuterol asneeded. Has not regularly needed it. Tolerates beta-coy SPA SUPERVISOR with no bronchospasm. Urinary incontinence | Status [...] mg every afternoon. ADOLPH | On CPAP SPA SUPERVISOR Morbid obesity | Body mass index is [...] CBC/INR TSH *I spoke with her Primary Health Insurance Assessor: Dr. Елена Ang [address] [place] [address] [phone] Pager (I spoke with Urology, who stated [...] peripheral arterial disease. I spoke with her supply crib attendant, and he highlighted that she had a [...] REPLACEMENT Left 09/14/2012 HIP REPLACEMENT Right 05/25/2013 CA CYSTOURETHROSCOPY INJ CHEMODENERVATION BLADDER N/A 10/22/2015 CYSTOSCOPY, INTRAVESICAL BOTOX INJECTION (150Units) performed by Shefali Herring MD at Main OR/Periop CA CYSTOURETHROSCOPY INJ CHEMODENERVATION BLADDER N/A 04/21/2016 CYSTOSCOPY, INTRAVESICAL BOTOX INJECTION (150 UNITS) performed by Shefali Herring MD at [facility] OR/Periop ABDOMINAL HERNIA REPAIR 05/2016 CA NDSC NJX IMPLT MATRL URT&/BLDR NCK N/A 10/23/2016 CYSTOSCOPY, INJECTION BOTOX (150 UNITS) performed by Shefali Herring MD at Main OR/Periop CA CYSTOURETHROSCOPY INJ CHEMODENERVATION BLADDER N/A 04/23/2017 CYSTOSCOPY, INJECTION BOTOX (150 UNITS) performed by Shefali Herring MD at Main OR/Periop CYSTOSCOPY N/A 09/28/2017 CYSTOSCOPY, INJECTION BOTOX (150 UNITS) performed by Shefali Herring MD at Main OR/Periop CA CYSTOURETHROSCOPY INJ CHEMODENERVATION BLADDER N/A 03/29/2018 CYSTOSCOPY, [...] PACU I spoke directly with the Urologist. TROPLATING LABORER * Shefali Herring MD - 09/30/2018 9:48 AM 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 Admission History and Physical Examination Name: Mame [...] REPLACEMENT Left 09/14/2012 HIP REPLACEMENT Right 05/25/2013 CA CYSTOURETHROSCOPY INJ CHEMODENERVATION BLADDER N/A 10/22/2015 CYSTOSCOPY, INTRAVESICAL BOTOX INJECTION (150Units) performed by Shefali Herring MD at Main OR/Periop CA CYSTOURETHROSCOPY INJ CHEMODENERVATION BLADDER N/A 04/21/2016 CYSTOSCOPY, INTRAVESICAL BOTOX INJECTION (150 UNITS) performed by Shefali Herring MD at Main OR/Periop ABDOMINAL HERNIA REPAIR 05/2016 CA NDSC NJX IMPLT MATRL URT&/BLDR NCK N/A 10/23/2016 CYSTOSCOPY, INJECTION BOTOX (150 UNITS) performed by Shefali Herring MD at Main OR/Periop CA CYSTOURETHROSCOPY INJ CHEMODENERVATION BLADDER N/A 04/23/2017 CYSTOSCOPY, INJECTION BOTOX (150 UNITS) performed by Shefali Herring MD at Main OR/Periop CYSTOSCOPY N/A 09/28/2017 CYSTOSCOPY, INJECTION BOTOX (150 UNITS) performed by Shefali Herring MD at Main OR/Periop CA CYSTOURETHROSCOPY INJ CHEMODENERVATION BLADDER N/A 03/29/2018 CYSTOSCOPY, [...] Pertinent radiology reviewed. Malcom Chaidez MD Pager [phone] ATTESTATION I personally performed the westfall portions of the E/M visit, discussed case with resident and concur with resident documentation of history, physical exam, assessment, and treatment plan unless otherwise noted. Staff name: Shefali Herring MD TROPLATING LABORER documented in this encounter Consult Notes * Megan Cutler MD - 09/30/2018 5:05 PM 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 Associated Order(s): CONSULT CARDIOLOGY PHYSICIAN STAFF CARDIOLOGY CONSULT NOTE Admission Date: 09/30/2018 Code Status: Full Code Reason for Consultation: New onset atrial fibrillation History of Present Illness: This is a 73 y.o. white female patient that [facility] undergo Botox injection of her [...] was restored. Patient does follow-up with a supply crib attendant in [place]. She underwent a left heart catheterization in 2006, she was not found to have any significantly obstructive coronary artery disease. She was seen by her supply crib attendant a few days ago and was found [...] another surgical procedure. Patient follows with a supply crib attendant in [place], [place] and she does not have coronary [...] diet 9. Patient will follow-up with her supply crib attendant in her hometown. Megan Cutler MD TROPLATING LABORER documented in this encounter Miscellaneous Notes * [...] Carlo He MD - 10/01/2018 3:50 AM 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 Please page [phone] with any questions until 8am after that please page med private Q TROPLATING LABORER * Operative Report (Direct Entry) - Shefali Herring MD - 09/30/2018 10:25 AM 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 OPERATIVE REPORT Name: Mame Archer is a [...] Date Type Specialty Shefali Herring MD [address] Ortho/Med Pavilion L[address] [place] [address] [phone] Urge incontinence 03/31/2019 Hospital Encounter Shefali Herring MD [address] Ortho/Med Pavilion [address] [place] [address] [phone] CYSTOURETHROSCOPY WITH INJECTION FOR CHEMODENERVATION OF THE BLADDER (BOTOX 150 UNITS) 03/31/2019 Surgery documented as of this encounter Procedures Comments Procedure Name Priority Date/Time Associated Diagnosis CBC AND DIFF Routine 10/02/2018 5:49 AM CDT MAGNESIUM Routine 10/02/2018 5:49 AM CDT COMPREHENSIVE METABOLIC Routine 10/02/2018 PANEL 5:49 AM CDT 2-D + DOPPLER Routine 10/01/2018 ECHOCARDIOGRAM 2:00 PM 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 CBC AND DIFF Routine 10/01/2018 4:29 AM 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 THYROID STIMULATING Add on 10/01/2018 HORMONE-TSH 4:29 AM 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 MAGNESIUM Routine 10/01/2018 4:29 AM 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 HEMOGLOBIN A1C Add on 10/01/2018 4:29 AM 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 LIPID PROFILE Routine 10/01/2018 4:29 AM 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 COMPREHENSIVE METABOLIC Routine 10/01/2018 PANEL 4:29 AM 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 TROPONIN-I STAT 09/30/2018 6:10 PM 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 PROTIME INR (PT) STAT 09/30/2018 6:10 PM 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 CBC STAT 09/30/2018 6:10 PM 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 ECG 12-LEAD Routine 09/30/2018 4:42 PM 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 TROPONIN-I 09/30/2018 2:13 PM 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 PHOSPHORUS STAT 09/30/2018 2:13 PM 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 MAGNESIUM STAT 09/30/2018 2:13 PM 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 BASIC METABOLIC PANEL STAT 09/30/2018 2:13 PM 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 CHEST SINGLE VIEW STAT 09/30/2018 2:11 PM 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 CYSTOURETHROSCOPY WITH 09/30/2018 Urge urinary incontinence INJECTION FOR 10:25 AM 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 CHEMODENERVATION OF THE BLADDER Special Needs 09/13 PER CHANGE FORM CASE MOVED FROM 09/27 TO 09/30 TO FOLLOW - CSesar DEXTER RN ([id number]) TELEMETRY STRIPS-SCAN 09/30/2018 12:00 AM 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 TELEMETRY STRIPS-SCAN 09/30/2018 12:00 AM 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 TELEMETRY STRIPS-SCAN 09/30/2018 12:00 AM 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 ECG-SCAN 09/30/2018 12:00 AM 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 documented in this encounter Results * MAGNESIUM (10/02/2018 5:49 AM CDT) Magnesium 1.8 1.6 - 2.6 mg/dL [facility] Specimen Blood Performing Organization Address City/[facility]/Zipcode Phone Number [facility] [address] [place] [address] * COMPREHENSIVE METABOLIC PANEL (10/02/2018 5:49 AM CDT) [facility] Sodium 142 137 - 147 MMOL/L [facility] [...] >60 >60 mL/min [facility] Comment: [place] The eGFR is not validated for use in drug dosing adjustments.Continue to use estimated creatinine clearance per dosing reference text.Please contact the Clinical Pharmacist for questions. eGFR >60 >60 mL/min [facility] [place] Comment: The eGFR is not validated for use in drug dosing adjustments.Continue to use estimated creatinine clearance per dosing reference text.Please contact the Clinical Pharmacist for questions. Specimen Blood Performing Organization Address City/[facility]/Zipcode Phone Number MAIN LAB [address] [place] [address] * CBC AND DIFF (10/02/2018 5:49 AM CDT) [facility] White Blood 6.4 4.5 - 11.0 K/UL [...] Absolute Lymph 1.90 1.0 - 4.8 K/UL [facility] MAIN LAB Count Absolute 0.40 0 - 0.80 K/UL [facility] MAIN LAB Monocyte Count Absolute 0.20 0 - 0.45 K/UL [facility] Eosinophil Count Absolute 0.00 0 - 0.20 K/UL [facility] Basophil Count Specimen Blood Performing Organization Address City/State/Zipcode Phone Number [facility] [address] [place] [address] * 2-D + DOPPLER ECHOCARDIOGRAM (10/01/2018 2:00 PM 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) IVS 0.64 0.6 - 0.9 cm OTHER [...] 34 OTHER OUTSIDE Index LAB Cardiology Siemens [id number] OTHER OUTSIDE Ultrasound LAB Machine Left Ventricle [...] No Pericardial Effusion PASP=37mmHg Performing Organization Address City/[facility]/Zipcode Phone Number OTHER OUTSIDE LAB * THYROID STIMULATING HORMONE-TSH (10/01/2018 4:29 AM 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) TSH 0.970 0.35 - 5.00 MCU/ML MAIN LAB Performing Organization Address City/[facility] Phone Number [facility] [address] [place] [address] * HEMOGLOBIN A1C (10/01/2018 4:29 AM 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) Hemoglobin A1C 6.0 4.0 - 6.0 % [facility] Comment: The ADA recommends that most patients with type 1 and type 2 diabetes maintain an A1c level <7%. Performing Organization Address City/State/Zipcode Phone Number MAIN LAB [address] [place] [address] * MAGNESIUM (10/01/2018 4:29 AM 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) Magnesium 1.9 1.6 - 2.6 mg/dL [facility] Specimen Blood Performing Organization Address City/[facility]/Zipcode Phone Number [facility] [address] [place] [address] * COMPREHENSIVE METABOLIC PANEL (10/01/2018 4:29 AM 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) Sodium 141 137 - 147 MMOL/L [facility] [...] >60 >60 mL/min [facility] Comment: [place] The eGFR is not validated for use in drug dosing adjustments.Continue to use estimated creatinine clearance per dosing reference text.Please contact the Clinical Pharmacist for questions. eGFR >60 >60 mL/min [facility] [place] Comment: The eGFR is not validated for use in drug dosing adjustments.Continue to use estimated creatinine clearance per dosing reference text.Please contact the Clinical Pharmacist for questions. Specimen Blood Performing Organization Address City/State/Zipcode Phone Number [facility] [address] [place] [address] * CBC AND DIFF (10/01/2018 4:29 AM 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) White Blood 9.1 4.5 - 11.0 K/UL [...] Basophil Count Specimen Blood Performing Organization Address City/[facility] Phone Number MAIN LAB [address] [place] [address] * LIPID PROFILE (10/01/2018 4:29 AM 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) Cholesterol 123 <200 MG/DL [facility]IN [facility] [...] 130 mg/dL. Specimen Blood Performing Organization Address City/[facility] Phone Number [facility] [address] [place] [address] * CBC (09/30/2018 6:10 PM 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) White Blood 10.2 4.5 - 11.0 K/UL [...] MAIN LAB Specimen Blood Performing Organization Address City/[facility] Phone Number MAIN LAB [address] [place] [address] * PROTIME INR (PT) (09/30/2018 6:10 PM 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) INR 1.0 0.8 - 1.2 MAIN LAB Specimen Blood Performing Organization Address City/[facility] Cent[facility]ode Phone Number MAIN LAB [address] [place] [address] * TROPONIN-I (09/30/2018 6:10 PM 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) Troponin-I 0.01 0.0 - 0.05 NG/ML MAIN LAB Specimen Blood Performing Organization Address [facility] Cent[facility] Phone Number MAIN LAB [address] [place] [address] * TROPONIN-I (09/30/2018 2:13 PM 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) Troponin-I 0.01 0.0 - 0.05 NG/ML MAIN LAB Performing Organization Address [facility] Phone Number MAIN LAB [address] [place] [address] * PHOSPHORUS (09/30/2018 2:13 PM 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) Phosphorus 3.4Comment: NOTE NEW REFERENCE 2.0 - 4.5 MG/DL MAIN LAB RANGES Specimen Blood Performing Organization Address City/[facility] Cent[facility] Phone Number MAIN LAB [address] [place] [address] * MAGNESIUM (09/30/2018 2:13 PM 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) Magnesium 1.9 1.6 - 2.6 mg/dL MAIN LAB Specimen Blood Performing Organization Address [facility] Cent[facility]ode Phone Number MAIN LAB [address] [place] [address] * BASIC METABOLIC PANEL (09/30/2018 2:13 PM 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) Sodium 142 137 - 147 MMOL/L MAIN [...] >60 >60 mL/min [facility] Comment: [place] The eGFR is not validated for use in drug dosing adjustments.Continue to use estimated creatinine clearance per dosing reference text.Please contact the Clinical Pharmacist for questions. eGFR >60 >60 mL/min [facility] [place] Comment: The eGFR is not validated for use in drug dosing adjustments.Continue to use estimated creatinine clearance per dosing reference text.Please contact the Clinical Pharmacist for questions. Specimen Blood Performing Organization Address City/State/Zipcode Phone Number MAIN LAB [address] [place] [address] * CHEST SINGLE VIEW (09/30/2018 2:11 PM 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) Impressions Performed At Poor depth of inspiration [...] Interface, Radiant Results - 09/30/2018 2:15 PM 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 Single view of the chest Clinical history: [...] RESULTS * TELEMETRY STRIPS-SCAN (09/30/2018 12:00 AM 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) Narrative Performed At Ordered by an unspecified provider. * TELEMETRY STRIPS-SCAN (09/30/2018 12:00 AM 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) Narrative Performed At Ordered by an unspecified provider. * TELEMETRY STRIPS-SCAN (09/30/2018 12:00 AM 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) Narrative Performed At Ordered by an unspecified provider. * ECG-SCAN (09/30/2018 12:00 AM 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) Narrative Performed At Ordered by an unspecified provider. documented in this encounter Visit Diagnoses Diagnosis Urge urinary incontinence Urge incontinence documented in this encounter Admitting Diagnoses Diagnosis Atrial flutter with rapid ventricular response (HCC) Atrial flutter documented in this encounter Administered Medications Action Date Dose Rate Site Medication Order MAR Action 10/01/2018 12:10 PM 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 650 mg acetaminophen (TYLENOL) tablet 650 mg [...] juice., 10 mg Given 10/01/2018 10:03 AM 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 10 mg Given 09/30/2018 5:47 PM 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 10/02/2018 10:13 AM CDT 81 mg aspirin EC tablet 81 mg Given 81 mg, Oral, DAILY, First dose on Wed10/01/18 at 0900, Until Discontinued 81 mg Given 10/01/2018 10:04 AM 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 10/01/2018 8:37 PM 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 80 mg atorvastatin (LIPITOR) tablet 80 mg Given 80 mg, Oral, AT BEDTIME DAILY, First dose on 09/30/18 at 2100, Until Discontinued 80 mg Given 09/30/2018 9:05 PM 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 10/02/2018 10:13 AM CDT 5,000 Units cholecalciferol (VITAMIN D-3) tablet Given 5,000 Units 5,000 Units, Oral, DAILY, First dose on Wed10/01/18 at 1245, Until Discontinued 5,000 Units Given 10/01/2018 12:10 PM 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 10/02/2018 6:07 AM CDT 120 mg Abdominal [...] mg Abdominal Tissue Given 10/01/2018 5:48 PM 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 120 mg Abdominal Tissue Given 10/01/2018 6:05 AM 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 10/02/2018 10:13 AM CDT 0.5 mg estradiol (ESTRACE) tablet 0.5 mg Given 0.5 mg, Oral, DAILY, First dose on Wed10/01/18 at 0900, Until Discontinued 0.5 mg Given 10/01/2018 10:05 AM 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 metoprolol tartrate (LOPRESSOR) tablet 50 mg 50 mg, Oral, TWICE DAILY, First dose on Wed10/01/18 at 2100, Until Discontinued, Hold for heart rate < 60 bpm Hold if SBP less 100, 10/01/2018 8:37 PM 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 10 mg montelukast (SINGULAIR) tablet 10 mg Given 10 mg, Oral, AT BEDTIME DAILY, First dose on Wed09/30/18 at 2100, Until Discontinued 10 mg Given 09/30/2018 9:05 PM 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 09/30/2018 10:15 AM 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 150 Units ONAbotulinum toxin A (BOTOX) injection Given INTRA-PROCEDURE MED, Starting Wed09/30/18 at 1026, Until Wed09/30/18 at 1037, Intra-op 10/02/2018 10:13 AM CDT 150 mg sertraline (ZOLOFT) tablet 150 mg Given 150 mg, Oral, EVERY MORNING, First dose on Wed10/01/18 at 0800, Until Discontinued 150 mg Given 10/01/2018 10:04 AM 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 09/30/2018 10:26 AM 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 3,000 mL sodium chloride 0.9 % irrigation bag Given INTRA-PROCEDURE MED, Starting Wed09/30/18 at 1026, Until Wed09/30/18 at 1037, Intra-op 10/01/2018 8:37 PM 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 50 mg traZODone (DESYREL) tablet 50 mg Given 50 mg, Oral, AT BEDTIME DAILY, First dose on Wed09/30/18 at 2100, Until Discontinued 50 mg Given 09/30/2018 9:05 PM 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 10/02/2018 10:14 AM CDT 1 tablet triamterene-hydrochlorothiazide Given (MAXZIDE) 37.5-25 mg tablet 1 tablet 1 tablet, Oral, EVERY MORNING, First dose on Wed10/01/18 at 0800, Until Discontinued 1 tablet Given 10/01/2018 10:04 AM 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 documented in this encounter
[2018-10-23] MEDS ORDERED: ACETAMINOPHEN 500 MG TAB (TYLENOL) PO PRN (12:30)
[2018-10-23] MEDS ORDERED: methylPREDNISolone 125 MG (Solu-MEDROL) VIAL IVP ONE (12:30)
[2018-10-23] MEDS ORDERED: diphenhydrAMINE 50 MG/ML INJ (BENADRYL) IVP ONE (12:30)
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
[2018-10-23 12:56] LABS: BASOPHILS % (AUTO) 0 % (0-10); EOSINOPHILS # (AUTO) 0.1 10^3/uL (0.0-0.3); EOSINOPHILS % (AUTO) 1 % (0-10); HEMATOCRIT 42 % (35-52); HEMOGLOBIN 13.8 G/DL (11.5-16.0); LYMPHOCYTES # (AUTO) 0.9 X 10^3 (1.0-4.0); LYMPHOCYTES % (AUTO) 13 % (12-44); MEAN CORPUSCULAR HEMOGLOBIN 29 PG (25-34); MEAN CORPUSCULAR HGB CONC 33 G/DL (32-36); MEAN CORPUSCULAR VOLUME 87 FL (80-99); MEAN PLATELET VOLUME 9.8 FL (7.4-10.4); MONOCYTES # (AUTO) 0.6 X 10^3 (0.0-1.0); MONOCYTES % (AUTO) 8 % (0-12); NEUTROPHILS # (AUTO) 5.3 X 10^3 (1.8-7.8); NEUTROPHILS % (AUTO) 77 % (42-75); PLATELET COUNT 218 10^3/uL (130-400); RED CELL DISTRIBUTION WIDTH 14.5 % (10.0-14.5); WHITE BLOOD COUNT 6.9 10^3/uL (4.3-11.0)
[2018-10-23 13:07] LABS: INR 1.1 (0.8-1.4); PROTHROMBIN TIME PATIENT 14.7 SEC (12.2-14.7)
[2018-10-23 13:15] LABS: ALANINE AMINOTRANSFERASE 31 U/L (0-55); ALBUMIN 4.1 GM/DL (3.2-4.5); ALKALINE PHOSPHATASE 121 U/L (40-136); BILIRUBIN,TOTAL 0.7 MG/DL (0.1-1.0); BUN/CREATININE RATIO 19; CALCIUM 9.2 MG/DL (8.5-10.1); CARBON DIOXIDE 22 MMOL/L (21-32); CHLORIDE 107 MMOL/L (98-107); CREATININE SERUM 0.84 MG/DL (0.60-1.30); GFR ESTIMATED > 60; GLUCOSE 147 MG/DL (70-105); POTASSIUM 3.6 MMOL/L (3.6-5.0); SODIUM 143 MMOL/L (135-145)
--- NOTE | 2018-10-23 13:24 | ED Respiratory ---
General Chief Complaint: Respiratory Problems Stated Complaint: SOA,POSSIBLE ALLERGIC RXN Nursing Triage Note: Ambulatory to rm 8. Pt reports SOB, rash on chest, groin, and legs since starting Bactrim for UTI yesterday. Pt 93% O2 on room air. Pt placed on 2 L NC for pt comfort. History of Present Illness Date Seen by Provider: Oct 23, 2018 Time Seen by Provider: 12:00 Initial Comments 73-year-old female began Bactrim DS for UTI yesterday, she took her second dose this morning and began to have pruritic rash to chest, abdomen, upper arms, groin and upper thigh. She also reports shortness of air and feeling similar to when she has an asthma attack. He is been trying to limit her use of albuterol inhaler because of the A. fib. She is scheduled shoulder for a cardioversion in [address] Ang. Timing/Duration: just prior to arrival Severity: mild Prior Episodes/Possible Cause: occasional episodes Associated Symptoms: No chest pain/soreness; cough; No dizziness, No earache, No facial pain, No fever/chills, No headache, No lightheadedness, No muscle aches, No nasal congestion, No nasal drainage; shortness of breath; No sinus infection, No sore throat; wheezing Allergies and Home Medications Allergies Coded Allergies: sulfamethoxazole (Verified Allergy, Intermediate, rash, SOB, 10/23/18) trimethoprim (Verified Allergy, Intermediate, rash, SOB, 10/23/18) cephalexin (Verified Allergy, Unknown, 10/02/18) Home Medications Acetaminophen 500 Mg Tablet, 500-1,000 MG PO Q6H PRN for PAIN-MILD, (Reported) Albuterol Sulfate 18 Gm Hfa.aer.ad, 2 PUFF INH Q4H PRN for SHORTNESS OF BREATH, (Reported) Amlodipine Besylate/Benazepril 1 Each Capsule, 1 CAP PO DAILY, (Reported) Apixaban 5 Mg Tablet, 5 MG PO BID, (Reported) Aspirin 81 Mg Tablet.dr, 81 MG PO DAILY, (Reported) Atorvastatin Calcium 20 Mg Tablet, 20 MG PO HS, (Reported) Cholecalciferol 5,000 Unit Capsule, 5,000 UNIT PO DAILY, (Reported) Ciprofloxacin HCl 500 Mg Tablet, 500 MG PO BID Prescribed by: SARANYA PRATT on 10/23/18 1406 Diltiazem HCl 240 Mg Cap.er.24h, 240 MG PO DAILY Prescribed by: RASHAUN HORN on 10/03/18 1323 Diltiazem HCl 120 Mg Cap.er.24h, 120 MG PO DAILY Prescribed by: FARHEEN FOY on 10/16/18 1645 Estradiol 0.5 Mg Tablet, 0.5 MG PO DAILY, (Reported) Estradiol 42.5 Gm Cream.appl, VG SuTuTh, (Reported) Flecainide Acetate 100 Mg Tablet, 100 MG PO BID Prescribed by: RASHAUN HORN on 10/03/18 1323 Fluticasone Propionate 16 Gm [place].susp, 2 SPRAYS NS DAILY PRN for ALLERGIES, ( Reported) Fluticasone/Salmeterol 1 Each Blst.w.dev, 1 PUFF INH BID PRN for SHORTNESS OF BREATH, (Reported) Levalbuterol Tartrate 15 Gm Hfa.aer.ad, 15 GM INH Q4H Prescribed by: SARANYA PRATT on 10/23/18 1406 Montelukast Sodium 10 Mg Tablet, 10 MG PO HS, (Reported) Prednisone 20 Mg Tab, 40 MG PO DAILY Take 2 tablets once daily for 3 days, then take one tablet once daily for 3 days. Prescribed by: SARANYA PRATT on 10/23/18 1440 Sertraline HCl 100 Mg Tablet, 150 MG PO DAILY, (Reported) TAKES 1 & 1/2 (100MG) TABLET Trazodone HCl 50 Mg Tablet, 50 MG PO HS, (Reported) Triamterene/Hydrochlorothiazid 1 Each Tablet, 1 TAB PO DAILY, (Reported) Patient Home Medication List Home Medication List Reviewed: Yes Review of Systems Review of Systems Constitutional: no symptoms reported, chills Respiratory: see HPI, dyspnea on exertion, short of breath, wheezing Skin: see HPI, pruritus, rash All Other Systems Reviewed Negative Unless Noted: Yes Past Ukndqyn-Pdofrv-Rcaqqd Hx Past Med/Social Hx: Reviewed Nursing Past Med/Soc Hx Patient Social History Alcohol Use: Denies Use Recreational Drug Use: No 2nd Hand Smoke Exposure: No Recent Foreign Travel: No Contact w/Someone Who Travel: No Recent Infectious Disease Expo: No Recent Hopitalizations: Yes (RELEASED RECENTLY FROM [facility] P/O BLADDER SX ON 09/30/18 ) Physical Abuse: No Sexual Abuse: No Immunizations Up To Date Tetanus Booster (TDap): Less than 5yrs Date of Pneumonia Vaccine: May 04, 2017 Date of Influenza Vaccine: May 04, 2018 Seasonal Allergies Seasonal Allergies: No Past Medical History Surgeries: Yes (HIATAL HERNIA, L TKR, R HIP REPLACEMENT, BLADDER x8, BILAT FOOT SX) Bladder Surgery, Gallbladder, Hysterectomy, Joint Replacement, Orthopedic Respiratory: Yes Asthma, Sleep Apnea Currently Using CPAP: Yes Cardiac: Yes Atrial Fibrillation, High Cholesterol, Hypertension Neurological: No Reproductive Disorders: No [employer]EDIT [employer] History: Menopausal Sexually Transmitted Disease: No Genitourinary: No Bladder Infection, UTI-Chronic Gastrointestinal: Yes Abdominal Hernia, Diverticulosis Musculoskeletal: Yes Arthritis Endocrine: No Diabetes, Non-Insulin dep Cataract Loss of Vision: Bilateral Hearing Impairment: Denies Cancer: No Psychosocial: Yes Depression Integumentary: No Blood Disorders: No Family Medical History Arthritis 19 MOTHER Cataracts 19 FATHER 19 MOTHER Colon cancer 19 FATHER Deafness or hearing loss 19 FATHER Dementia 19 FATHER FH: macular degeneration 19 MOTHER FH: prostate cancer 19 FATHER FH: skin cancer 19 FATHER Gout 19 MOTHER Hypertension 19 FATHER 19 MOTHER Myocardial infarction 19 FATHER 19 MOTHER Physical Exam Vital Signs - First Documented 10/23/18 12:00 Temp 100.6 Pulse 104 Resp 27 B/P (MAP) 146/96 (113) Pulse Ox 93 O2 Delivery Room Air Capillary Refill : Less Than 3 Seconds Height: 5'7.00" Weight: 260lbs. 3.0oz. 117.287173hi; 42.0 BMI Method:Stated General Appearance: WD/WN, no apparent distress Eyes: Bilateral Eye Normal Inspection, Bilateral Eye PERRL, Bilateral Eye EOMI HEENT: PERRL/EOMI, normal ENT inspection, TMs normal, pharynx normal Neck: non-tender, full range of motion, supple, normal inspection Respiratory: chest non-tender, no respiratory distress, decreased breath sounds , wheezing, expiration, inspiration Cardiovascular: no JVD, no murmur, tachycardia, irregularly irregular Gastrointestinal: normal bowel sounds, non tender, soft Extremities: normal range of motion, non-tender, normal capillary refill, pedal edema (1+) Neurologic/Psychiatric: no motor/sensory deficits, alert, normal mood/affect, oriented x 3 Skin: normal color, warm/dry, cyanosis, rash (macular papular rash to chest, abdomen, arms, and upper leg/groin.) Focused Exam Lactate Level 10/23/18 12:18: Lactic Acid Level 1.14 Lactic Acid Level Laboratory Tests Test 10/23/18 12:18 Lactic Acid Level 1.14 MMOL/L (0.50-2.00) Progress/Results/Core Measures Suspected Sepsis Recent Fever Within 48 Hours: Yes Infection Criteria Present: None New/Unexplained Altered Menta: No Sepsis Screen: No Definite Risk SIRS Temperature:100.6 Pulse: 104 Respiratory Rate: 27 Laboratory Tests 10/23/18 12:18: White Blood Count 6.9 Blood Pressure 146 /96 Mean: 113 10/23/18 12:18: Lactic Acid Level 1.14 Laboratory Tests 10/23/18 12:18: Creatinine 0.84, INR Comment 1.1, Platelet Count 218, Total Bilirubin 0.7 Results/Orders Lab Results Laboratory Tests Test 10/23/18 12:18 10/23/18 13:45 Range/Units White Blood Count 6.9 4.3-11.0 10^3/uL Red Blood Count 4.79 4.35-5.85 10^6/uL Hemoglobin 13.8 11.5-16.0 G/DL Hematocrit 42 35-52 % Mean Corpuscular Volume 87 80-99 FL Mean Corpuscular Hemoglobin 29 25-34 PG Mean Corpuscular Hemoglobin Concent 33 32-36 G/DL Red Cell Distribution Width 14.5 10.0-14.5 % Platelet Count 218 130-400 10^3/uL Mean Platelet Volume 9.8 7.4-10.4 FL Neutrophils (%) (Auto) 77 H 42-75 % Lymphocytes (%) (Auto) 13 12-44 % Monocytes (%) (Auto) 8 0-12 % Eosinophils (%) (Auto) 1 0-10 % Basophils (%) (Auto) 0 0-10 % Neutrophils # (Auto) 5.3 1.8-7.8 X 10^3 Lymphocytes # (Auto) 0.9 L 1.0-4.0 X 10^3 Monocytes # (Auto) 0.6 0.0-1.0 X 10^3 Eosinophils # (Auto) 0.1 0.0-0.3 10^3/uL Basophils # (Auto) 0.0 0.0-0.1 10^3/uL Prothrombin Time 14.7 12.2-14.7 SEC INR Comment 1.1 0.8-1.4 Activated Partial Thromboplast Time 33 24-35 SEC Sodium Level 143 135-145 MMOL/L Potassium Level 3.6 3.6-5.0 MMOL/L Chloride Level 107 98-107 MMOL/L Carbon Dioxide Level 22 21-32 MMOL/L Anion Gap 14 5-14 MMOL/L Blood Urea Nitrogen 16 7-18 MG/DL Creatinine 0.84 0.60-1.30 MG/DL Estimat Glomerular Filtration Rate > 60 BUN/Creatinine Ratio 19 Glucose Level 147 H 70-105 MG/DL Lactic Acid Level 1.14 0.50-2.00 MMOL/L Calcium Level 9.2 8.5-10.1 MG/DL Corrected Calcium 9.1 8.5-10.1 MG/DL Total Bilirubin 0.7 0.1-1.0 MG/DL Aspartate Amino Transf (AST/SGOT) 24 5-34 U/L Alanine Aminotransferase (ALT/SGPT) 31 0-55 U/L Alkaline Phosphatase 121 40-136 U/L Troponin I < 0.028 <0.028 NG/ML Total Protein 7.0 6.4-8.2 GM/DL Albumin 4.1 3.2-4.5 GM/DL Urine Color YELLOW Urine Clarity CLEAR Urine pH 6 5-9 Urine Specific [place] 1.015 L 1.016-1.022 Urine Protein 1+ H NEGATIVE Urine Glucose (UA) NEGATIVE NEGATIVE Urine Ketones NEGATIVE NEGATIVE Urine Nitrite NEGATIVE NEGATIVE Urine Bilirubin NEGATIVE NEGATIVE Urine Urobilinogen NORMAL NORMAL MG/DL Urine Leukocyte Esterase NEGATIVE NEGATIVE Urine RBC (Auto) 2+ H NEGATIVE Urine RBC RARE /HPF Urine WBC RARE /HPF Urine Squamous Epithelial Cells 10-25 H /HPF Urine Crystals NONE /LPF Urine Bacteria TRACE /HPF Urine Casts NONE /LPF Urine Mucus NEGATIVE /LPF Urine Culture Indicated YES Micro Results Microbiology 10/23/18 Influenza Types A,B Antigen (JONY) - Final, Complete My Orders Orders - SARANYA PRATT Cbc With Automated Diff (10/23/18 12:24) Comprehensive Metabolic Panel (10/23/18 12:24) Blood Culture (10/23/18 12:24) Urinalysis (10/23/18 12:24) Urine Culture (10/23/18 12:24) Protime With Inr (10/23/18 12:24) Partial Thromboplastin Time (10/23/18 12:24) Acetaminophen Tablet (Tylenol Tablet) (10/23/18 12:30) Saline Lock/Iv-Start (10/23/18 12:24) Ekg Tracing (10/23/18 12:24) Troponin I (10/23/18 12:24) Vital Signs Adult Sepsis Patie Q15M (10/23/18 12:24) O2 (10/23/18 12:24) Influenza A And B Antigens (10/23/18 12:24) Ns Iv 1000 Ml (Sodium Chloride 0.9%) (10/23/18 12:24) Lactic Acid Analyzer (10/23/18 12:24) Levalbuterol (Non-Formulary) (Xopenex (N (10/23/18 12:24) Chest Pa/Lat (2 View) (10/23/18 12:24) Methylprednisolone Sod Succ (Solu-Medrol (10/23/18 12:30) Diphenhydramine Injection (Benadryl Inje (10/23/18 12:30) Medications Given in ED Current Medications Medications Dose Ordered Sig/Lisa Route Start Time Stop Time Status Last Admin Dose Admin Acetaminophen 1,000 mg ONCE PRN PO 10/23/18 12:30 10/23/18 12:43 DC 10/23/18 12:42 1,000 MG Diphenhydramine HCl 25 mg ONCE ONCE IVP 10/23/18 12:30 10/23/18 12:31 DC 10/23/18 12:42 25 MG Methylprednisolone Sodium Succinate 125 mg ONCE ONCE IVP 10/23/18 12:30 10/23/18 12:31 DC 10/23/18 12:43 125 MG Vital Signs/I&O 10/23/18 10/23/18 12:00 14:50 Temp 100.6 98.8 Pulse 104 99 Resp 27 22 B/P (MAP) 146/96 (113) 154/108 (123) Pulse Ox 93 94 O2 Delivery Room Air Room Air Capillary Refill : Less Than 3 Seconds Blood Pressure Mean: 113 Progress Note : Time: 12:00 Progress Note Patient seen and evaluated. Will obtain CXR, UA, Labs, EKG, continue O2 per NC, IV 1 Liter NS for fever 100.6 and pulse 104. Recently diagnosed and treated for A-Fib with RVR. SoluMedrol 125 mg IV and Xopenex Neb breathing Tx (since Tachy, will avoid Albuterol). Tylenol 1,000 mg. 1300 Rash has improved to chest and arms, less erythema and pruritus. 1320 only 500 ml of IV fluid infused, pulse down to 93. Temp 98.8. 1400 patient reports improvement in her rash, decreased SOA, less wheezing, and request discharge to home. Discharge instructions and return precautions reviewed with her. We will switch her to Cipro from the Bactrim for her urinary tract infection. ECG Initial ECG Impression Date: Oct 23, 2018 Initial ECG Impression Time: 11:10 Initial ECG Rate: 111 Initial ECG Rhythm: A Fib/Flutter Initial ECG Intervals: Normal Initial ECG Intervals QRSD 164, QT 336, QTc 457. [place] QRS 1, T 75 Initial ECG Impression: Nonspecific Changes Initial ECG Comparisson: Unchanged Comment Reviewed with Dr. Avina, No ST elevation. Agreed with interpretation. Diagnostic Imaging Diagonstic Imaging: Xray Plain Films/CT/US/NM/MRI: chest Comments ARUNA: TUSHAR ESTEVEZ [facility] REC#: [id number] PT STATUS: REG ER : 1945 PHYSICIAN: SARANYA PRATT ADMIT DATE: 10/23/18/ER Draft Date of Exam:10/23/18 CHEST PA/LAT (2 VIEW) EXAMINATION: CHEST (PA AND LATERAL) CLINICAL INDICATION: 73-year-old female, shortness of breath. Possible allergic reaction. COMPARISON: October 18, 2018. FINDINGS: Heart size and mediastinal contours are unremarkable. There is no identified pneumothorax. There is no pleural effusion. There is no identified interval focal airspace consolidation. There are degenerative changes of the thoracic spine. IMPRESSION: No identified interval acute cardiopulmonary abnormality. Dictated on workstation # [id number] Dict: 10/23/18 1303 Trans: 10/23/18 1346 [facility] [id number] Interpreted by: MARVA CULVER MD Electronically signed by: Reviewed: Reviewed by Me Departure Impression Primary Impression: Urinary tract infection Qualified Codes: N30.01 - Acute cystitis with hematuria Additional Impressions: Allergic reaction caused by a drug Qualified Codes: T78.40XA - Allergy, unspecified, initial encounter Acute asthma exacerbation Qualified Codes: J45.21 - Mild intermittent asthma with (acute) exacerbation Atrial fibrillation and flutter Disposition: 01 HOME, SELF-CARE Condition: Improved Departure-Patient Inst. Decision time for Depature: 13:50 Referrals: ANAY DARNELL DO (PCP/Family) Primary Care Physician Patient Instructions: Adverse Drug Reactions, Adult (DC), Asthma, Adult (DC), Atrial Fibrillation (DC) Add. Discharge Instructions: Discontinue Bactrim, take Cipro as prescribed. Take prednisone as prescribed. You may take Benadryl 25 mg every 8 hours for rash or itching. This may make you drowsy. Use Xopenex instead of albuterol, if good coverage with your insurance. Keep your scheduled appointment with Dr. Ang, call his office tomorrow to make him aware of this ER visit. Continue all of your home medications. You may take Tylenol 650 mg alternating with ibuprofen 600 mg every 4 hours for pain or fever Follow-up with Dr. Darnell in 2-3 days, sooner if symptoms are not improving or worsen. Return to emergency department for difficulty breathing, fever greater than 101 not relieved by Tylenol or ibuprofen, or new concerns. All discharge instructions reviewed with patient and/or family. Voiced understanding. Scripts Prednisone (Prednisone) 20 Mg Tab 40 MG PO DAILY, #9 TAB 0 Refills Take 2 tablets once daily for 3 days, then take one tablet once daily for 3 days. Prov: SARANYA PRATT 10/23/18 Ciprofloxacin HCl (Cipro) 500 Mg Tablet 500 MG PO BID, #10 TAB 0 Refills Prov: SARANYA PRATT 10/23/18 Levalbuterol Tartrate (Xopenex Hfa) 15 Gm Hfa.aer.ad 15 GM INH Q4H, #1 GM 2 Refills Prov: SARANYA PRATT 10/23/18 Copy Copies To 1: ANAY DARNELL DO; QAMAR ANG MD [facility] SARANYA PRATT Oct 23, 2018 13:24
--- NOTE | 2018-10-23 13:45 | NUR ---
Pt's temperature 98.8 tympanic at this time. Reported to Svetlana Lagos.
--- NOTE | 2018-10-23 13:46 | Diagnostic Imaging Report ---
EXAMINATION: CHEST (PA AND LATERAL) CLINICAL INDICATION: 73-year-old female, shortness of breath. Possible allergic reaction. COMPARISON: October 18, 2018. FINDINGS: Heart size and mediastinal contours are unremarkable. There is no identified pneumothorax. There is no pleural effusion. There is no identified interval focal airspace consolidation. There are degenerative changes of the thoracic spine. IMPRESSION: No identified interval acute cardiopulmonary abnormality. Dictated by: Dictated on workstation # [id number]
[2018-10-23 14:02] LABS: BILIRUBIN,URINE NEGATIVE (NEGATIVE); CLARITY,URINE CLEAR; COLOR,URINE YELLOW; GLUCOSE, URINE (UA) NEGATIVE (NEGATIVE); KETONES,URINE NEGATIVE (NEGATIVE); LEUKOCYTE ESTERASE ,URINE NEGATIVE (NEGATIVE); NITRITE,URINE NEGATIVE (NEGATIVE); PH,URINE 6 (5-9); PROTEIN,URINE 1+ (NEGATIVE); UROBILINOGEN,URINE NORMAL (NORMAL)
[2018-10-23] MEDS ORDERED: CIPR-225 PO ×2 (14:06)
[2018-10-23] MEDS ORDERED: NF-XOP-HFA INH ×2 (14:06)
[2018-10-23 14:09] LABS: BACTERIA,URINE TRACE /HPF; RBC,URINE RARE /HPF; WBC,URINE RARE /HPF
[2018-10-23] MEDS ORDERED: PRD20T PO ×2 (14:40)
[2018-10-23 14:50] VITALS: BP 154/108
[2018-10-25] MEDS ORDERED: DILT-27 PO ×2 (09:57)
[2018-10-25] MEDS ORDERED: METO-370 PO ×2 (09:58)
== END 2018-10-23 14:50 | disposition home or self-care (01) ==
LOC: EDUNIT# 11:57 → ER 11:58
DX: T36.8X5A Adverse effect of other systemic antibiotics, initial encounter (principal); N39.0 Urinary tract infection, site not specified; I48.91 Unspecified atrial fibrillation; J45.901 Unspecified asthma with (acute) exacerbation; G47.30 Sleep apnea, unspecified; E78.00 Pure hypercholesterolemia, unspecified; I10 Essential (primary) hypertension; E11.9 Type 2 diabetes mellitus without complications; F32.9 Major depressive disorder, single episode, unspecified; Z87.19 Personal history of other diseases of the digestive system; Z82.49 Family history of ischemic heart disease and other diseases of the circulatory system; Z80.8 Family history of malignant neoplasm of other organs or systems; Z80.42 Family history of malignant neoplasm of prostate; Z87.448 Personal history of other diseases of urinary system; Z87.440 Personal history of urinary (tract) infections; Z88.2 Allergy status to sulfonamides; Z88.1 Allergy status to other antibiotic agents; Z88.8 Allergy status to other drugs, medicaments and biological substances; Z79.01 Long term (current) use of anticoagulants; Z79.82 Long term (current) use of aspirin; Z79.51 Long term (current) use of inhaled steroids; Z79.52 Long term (current) use of systemic steroids; Z96.652 Presence of left artificial knee joint; Z96.641 Presence of right artificial hip joint; Z90.710 Acquired absence of both cervix and uterus
CPT/HCPCS: 36415; 71046; 80053; 81000; 83605; 84484; 85025; 85610; 85730; 87040; 87088; 87804; 93005; 96361; 96374; 96375

== ENCOUNTER → 2018-10-25 | Day surgery (SDC) | payer MEDICARE ==
[2018-10-25] VITALS (8 sets, daily range): BP systolic 109–136; BP diastolic 68–103
[~2018-10-25] VITALS: Ht 170.2 cm; Wt 117.9 kg
[~2018-10-25] MED LIST changes: +METO-370 PO; +MIDAZOLAM 2 MG/2 ML (VERSED) VIAL ONE; +NF-XOP-HFA INH; +NS IV 1000 ML 1,000 ML IV SCH; +NS IV 1000 ML 1,000 ML ONE; +PRD20T PO; +proPOfol 200 MG/20 ML (DIPRIVAN) VIAL IV ONE
--- OUTSIDE RECORDS SUMMARY | 2018-10-25 08:50 | XMS REPORT | Clinical Summary ---
Author Author [facility] Organization [facility] Address Unknown Phone Unavailable Care Team Providers Care Hospital Attendant Name Role Phone Alan Ramachandran MD Unavailable Shefali Herring MD Unavailable Breanna Broderick DO PCP Jody Salazar RN Unavailable Unavailable Jass Loving MD Unavailable Carla Bernal MD Unavailable Unavailable Louise Knott MD Unavailable Park Han RN Unavailable Unavailable Breanna Lazo MD Unavailable Unavailable Marjorie Wilburn RN Unavailable Unavailable Gumaro Lynne MD Unavailable Glory Ford RN Unavailable Unavailable QueenslandQuintin Canas RN Unavailable Unavailable Adeel Avila MD Unavailable Source Comments Some departments are not documenting in the electronic medical record. If you do not see the information that you expected, contact Release of Information in the Health Information Management department at [phone] for further assistance in locating additional records.[facility] Allergies No Known Allergies Medications End [...] in a 24 hour period. Call your knifer up if you have to use this medication. [...] in a 24 hour period. Call your knifer up if you have to use this medication. Active Problems Problem Noted Date Coronary artery disease 10/02/2018 Hypertension 10/02/2018 Depression (disease) 10/02/2018 Hyperlipidemia 10/02/2018 Obstructive sleep apnea on CPAP 10/02/2018 Asthma 10/02/2018 Paroxysmal atrial fibrillation 10/01/2018 Morbid obesity 10/01/2018 Urge urinary incontinence 10/11/2017 Overview: Added automatically from request for surgery [id number] Urinary urgency 04/23/2017 Overview: Added automatically from request for surgery [id number] Urge incontinence 07/28/2012 Overview: Anticholinergic refractory urgency [...] botox 04/21/2016 - 150u botox 07/13/2016 - [id number]; not performing timed and double voiding Last [...] Inhaled Oxygen - Concentration 10/01/2018 2:00 PM SHREDDER OPERATOR Weight 121.6 kg (268 lb) 10/01/2018 2:00 PM SHREDDER OPERATOR Height 170.2 cm (5' 7") 10/01/2018 2:00 PM SHREDDER OPERATOR Body Mass Index 41.97 Plan of Treatment Care Team Description Date Type Specialty Shefali Herring MD [address] [facility] [address] [place] [address] [phone] Urge incontinence 03/31/2019 Hospital Encounter Shefali Herring MD [address] [facility] [address] [place] [address] [phone] CYSTOURETHROSCOPY WITH INJECTION FOR CHEMODENERVATION OF THE [...] + DOPPLER Routine 10/01/2018 ECHOCARDIOGRAM 2:00 PM SHREDDER OPERATOR THYROID STIMULATING Add on 10/01/2018 HORMONE-TSH 4:29 AM SHREDDER OPERATOR HEMOGLOBIN A1C Add on 10/01/2018 4:29 AM SHREDDER OPERATOR LIPID PROFILE Routine 10/01/2018 4:29 AM SHREDDER OPERATOR MAGNESIUM Routine 10/01/2018 4:29 AM SHREDDER OPERATOR COMPREHENSIVE METABOLIC Routine 10/01/2018 PANEL 4:29 AM SHREDDER OPERATOR CBC AND DIFF Routine 10/01/2018 4:29 AM SHREDDER OPERATOR CBC STAT 09/30/2018 6:10 PM SHREDDER OPERATOR PROTIME INR (PT) STAT 09/30/2018 6:10 PM SHREDDER OPERATOR TROPONIN-I STAT 09/30/2018 6:10 PM SHREDDER OPERATOR ECG 12-LEAD Routine 09/30/2018 4:42 PM SHREDDER OPERATOR TROPONIN-I 09/30/2018 2:13 PM SHREDDER OPERATOR PHOSPHORUS STAT 09/30/2018 2:13 PM SHREDDER OPERATOR MAGNESIUM STAT 09/30/2018 2:13 PM SHREDDER OPERATOR BASIC METABOLIC PANEL STAT 09/30/2018 2:13 PM SHREDDER OPERATOR CHEST SINGLE VIEW STAT 09/30/2018 2:11 PM SHREDDER OPERATOR CYSTOURETHROSCOPY WITH 09/30/2018 Urge urinary incontinence INJECTION FOR 10:25 AM SHREDDER OPERATOR CHEMODENERVATION OF THE BLADDER Special Needs 09/13 PER CHANGE FORM CASE MOVED FROM 09/27 TO 09/30 TO FOLLOW - Viola DEXTER RN ([id number]) TELEMETRY STRIPS-SCAN 09/30/2018 12:00 AM SHREDDER OPERATOR TELEMETRY STRIPS-SCAN 09/30/2018 12:00 AM SHREDDER OPERATOR TELEMETRY STRIPS-SCAN 09/30/2018 12:00 AM SHREDDER OPERATOR ECG-SCAN 09/30/2018 12:00 AM SHREDDER OPERATOR ECG-SCAN 09/30/2018 12:00 AM SHREDDER OPERATOR from Last 3 Months Results * CBC [...] Basophil Count Specimen Blood Performing Organization Address City/[facility]/Zipcode Phone Number MAIN LAB [address] [place] [address] * MAGNESIUM (10/02/2018 5:49 AM CDT) Only the most recent of 3 results within the time period is included. Magnesium 1.8 1.6 - 2.6 mg/dL [facility] Specimen Blood Performing Organization Address City/[facility] [address] [place] [address] * COMPREHENSIVE METABOLIC PANEL (10/02/2018 5:49 AM [...] >60 >60 mL/min [facility] Comment: [place] The eGFR is not validated for use in drug dosing adjustments.Continue to use estimated creatinine clearance per dosing reference text.Please contact the Clinical Pharmacist for questions. eGFR >60 >60 mL/min [facility] [place] Comment: The eGFR is not validated for use in drug dosing adjustments.Continue to use estimated creatinine clearance per dosing reference text.Please contact the Clinical Pharmacist for questions. Specimen Blood Performing Organization Address City/State/Zipcode Phone Number [facility] [address] [place] [address] * 2-D + DOPPLER ECHOCARDIOGRAM (10/01/2018 2:00 PM SHREDDER OPERATOR) IVS 0.64 0.6 - 0.9 cm OTHER [...] 34 OTHER OUTSIDE Index LAB Cardiology Siemens [id number] OTHER OUTSIDE Ultrasound LAB Machine Left Ventricle [...] * THYROID STIMULATING HORMONE-TSH (10/01/2018 4:29 AM SHREDDER OPERATOR) TSH 0.970 0.35 - 5.00 MCU/ML [facility] Performing Organization Address City/[facility]/Zipcode Phone Number [facility] [address] [place] [address] * HEMOGLOBIN A1C (10/01/2018 4:29 AM SHREDDER OPERATOR) Hemoglobin A1C 6.0 4.0 - 6.0 % [facility] Comment: The ADA recommends that most patients with type 1 and type 2 diabetes maintain an A1c level <7%. Performing Organization Address City/State/Zipcode Phone Number [facility] [address] [place] [address] * LIPID PROFILE (10/01/2018 4:29 AM SHREDDER OPERATOR) Cholesterol 123 <200 MG/DL [facility] [...] 130 mg/dL. Specimen Blood Performing Organization Address [facility] Phone Number MA[facility] [address] [place] [phone] * TROPONIN-I (09/30/2018 6:10 PM SHREDDER OPERATOR) Only the most recent of 2 results within the time period is included. Pathologist [facility] Troponin-I 0.01 0.0 - 0.05 NG/ML MAIN LAB Specimen Blood Performing Organization Address [facility] Phone Number MA[facility] [address] [place] [phone] * PROTIME INR (PT) (09/30/2018 6:10 PM SHREDDER OPERATOR) Pathologist [facility] INR 1.0 0.8 - 1.2 MAIN LAB Specimen Blood Performing Organization Address [facility] Phone Number MAIN [facility] [address] [place] [phone] * CBC (09/30/2018 6:10 PM SHREDDER OPERATOR) Pathologist [facility] White Blood 10.2 4.5 - 11.0 K/UL [...] MAIN LAB Specimen Blood Performing Organization Address [facility] Phone Number MA[facility] [address] [place] [phone] * PHOSPHORUS (09/30/2018 2:13 PM SHREDDER OPERATOR) Phosphorus 3.4Comment: NOTE NEW REFERENCE 2.0 - 4.5 MG/DL [facility]IN [facility] RANGES Specimen Blood Performing Organization Address [facility]ode Phone Number MAIN [facility] [address] [place] [address] * BASIC METABOLIC PANEL (09/30/2018 2:13 PM SHREDDER OPERATOR) Sodium 142 137 - 147 MMOL/L [facility] [...] >60 >60 mL/min [facility] Comment: [place] The eGFR is not validated for use in drug dosing adjustments.Continue to use estimated creatinine clearance per dosing reference text.Please contact the Clinical Pharmacist for questions. eGFR >60 >60 mL/min [facility] [place] Comment: The eGFR is not validated for use in drug dosing adjustments.Continue to use estimated creatinine clearance per dosing reference text.Please contact the Clinical Pharmacist for questions. Specimen Blood Performing Organization Address City/State/Zipcode Phone Number MAIN LAB [address] [place] [address] * CHEST SINGLE VIEW (09/30/2018 2:11 PM SHREDDER OPERATOR) Impressions Performed At Poor depth of inspiration [...] Interface, Radiant Results - 09/30/2018 2:15 PM SHREDDER OPERATOR Single view of the chest Clinical history: [...] RESULTS * TELEMETRY STRIPS-SCAN (09/30/2018 12:00 AM SHREDDER OPERATOR) Narrative Performed At Ordered by an unspecified provider. * TELEMETRY STRIPS-SCAN (09/30/2018 12:00 AM SHREDDER OPERATOR) Narrative Performed At Ordered by an unspecified provider. * TELEMETRY STRIPS-SCAN (09/30/2018 12:00 AM SHREDDER OPERATOR) Narrative Performed At Ordered by an unspecified provider. * ECG-SCAN (09/30/2018 12:00 AM SHREDDER OPERATOR) Narrative Performed At Ordered by an unspecified provider. * ECG-SCAN (09/30/2018 12:00 AM SHREDDER OPERATOR) Narrative Performed At Ordered by an unspecified provider. from Last 3 Months Insurance Type Payer Benefit Subscriber ID Effective Phone Address Plan / Dates Group Medicare MEDICARE MEDICARE xxxxxxxxxx 2012-P PART A AND resent B PPO [facility] xxxxxxxxxxx 2012-P resent (Home) [place] [address] Advance Directives Patient has advance care planning documents, and code status on file. For more information, please contact: [facility] [address] [place] [address] Date Inactivated Comments Code Status Date Activated 10/02/2018 3:17 PM Full Code 09/30/2018 4:42 PM Provider has discussed Code Status Yes w/Patient or Family?
--- OUTSIDE RECORDS SUMMARY | 2018-10-25 08:51 | XMS REPORT | Encounter Summary ---
Author Author [facility] Organization [facility] Address Unknown Phone Unavailable Care Team Providers Care Bung Dropper Name Role Phone Alan Ramachandran MD Unavailable Shefali Herring MD Unavailable Breanna Broderick DO PCP Jody Salazar RN Unavailable Unavailable Jass Loving MD Unavailable Carla Bernal MD Unavailable Unavailable Louise Knott MD Unavailable Prak Han RN Unavailable Unavailable Breanna Lazo MD Unavailable Unavailable Marjorie Wilburn RN Unavailable Unavailable Gumaro Lynne MD Unavailable Glory Ford RN Unavailable Unavailable Quintin Ivan RN Unavailable Unavailable Adeel Avila MD Unavailable Reason for Visit * Auth/Cert Referred By Contact Referred To Contact Status Reason Specialty Diagnoses / Procedures Diagnoses Urge urinary incontinence Urge urinary incontinence [N39.41] P rocedures [place] CYSTOURETHROSCOPY INJ CHEMODENERVATION BLADDER CYSTOSCOPY WITH BOTOX INJECTION (150 UNITS) Encounter Details Care Team Description Date Type Department Shefali Herring MD [address] Ortho/Med Pavilion [address] [place] [address] [phone] Gumaro Dietrich MD [address] [place] [address] [phone] Inocente Kate MD [address] [place] [address] Atrial fibrillation with rapid ventricular response (HCC) 09/30/2018 [facility] 10/02/2018 [place] [address] Social History Date Tobacco Use Types Packs/Day [...] Inhaled Oxygen - Concentration 10/01/2018 2:00 PM FISH GRADER Weight 121.6 kg (268 lb) 10/01/2018 2:00 PM FISH GRADER Height 170.2 cm (5' 7") 10/01/2018 2:00 PM FISH GRADER Body Mass Index 41.97 documented in this [...] 10/02/2018 Attending Physician: Inocente Kate MD Service: [facility] Q - [id number] Physician Summary completed by: [...] - 2-D + DOPPLER ECHOCARDIOGRAM Location Performed: [facility] Status: Final result Procedure Ordered By: Megan Cutler MD [phone] Referring Provider: Interpreting Physician: Aram Rojas MD Fellow: Location of Interp: [facility] Humane Officer: Lindsey Diaz Machine: [id number] Indications: Atrial fibrillation Study done at patient [...] peak velocity 1.86 m/s Signed at 1538 FISH GRADER Brief Hospital Course: The patient was admitted [...] that she follow up with her primary structural steel shop supervisor and have a zio patch or some sort of longer-term atrial fibrillation monitoring in order to determine whether 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 Call [phone] Discharging attending physician: INOCNETE KATE [[id number]] Regular Diet You have no dietary restriction. [...] in a 24 hour period. Call your structural steel shop supervisor if you have to use this medication. [...] a follow up appointment with your primary structural steel shop supervisor in the next 2-4 weeks. Pending items needing follow up: 1. Ambulatory cardiac monitoring 2. Determination of anticoagulation timeline Signed: Inocente Kate MD 10/05/2018 cc: Primary Care Physician: Breanna Broderick Verified Referring physicians: Breanna Broderick DO Additional provider(s): Dr. Елена Ang [address] [place] [address] [phone] documented in this encounter Discharge Instructions * Patient Instructions* Karly Mcmillan RN - 09/30/2018 10:54 AM FISH GRADER Discharge Instructions: After Your Surgery Youve just [...] interact with your prescription medicines or other enlr-kxs-oyvjqya (OTC) medicines. Some prescription medicines have acetaminophen [...] of taking these medicines. Date Last Reviewed: 06/25/[id number] [facility]. [address] [place] [address], [place] [address]. All rights reserved. This information is not intended as a substitute for professional medical care. Always follow your healthcare professional's instructions. GRADER * Appointments* Inocente Kate MD - 10/02/2018 10:00 AM CDT Please schedule a follow up appointment with your primary structural steel shop supervisor in the next 2-4 weeks. * Pre-Anesthesia Patient Instructions* Lucille Gomez RN - 09/06/2018 12:11 PM FISH GRADER GENERAL INFORMATION Before you come to the [...] and any other valuables at home. The [facility] is not responsible for the loss or breakage of personal items. Remove nail bhutanese, makeup and all jewelry (including piercings) before coming to the hospital. The morning of your procedure: brush your teeth and tongue do not smoke do not shave the area where you will have surgery What to bring to the hospital ID/ Insurance Card General Helper card Official documents for legal guardianship Copy of your Living Will, Advanced Directives, and/or Durable Power of Health Assistant Small bag with a few personal belongings [...] do not receive a call, please call [phone] before 4:30pm or [phone] after 4:30pm. Notify us at [facility]: if you need to cancel your procedure if you are going to be late Arrival at the [facility] [address] [place] [address] Park in the [address]age, located directly across from the main entrance to the hospital. [employer] parking is available from 7 AM to 4 PM Wednesday through Wednesday. Enter through the ground floor [facility] entrance and check in at the [...] if you need to provide a sample. GRADER * Pre-Anesthesia Medication Instructions* Lucille Gomez RN - 09/06/2018 12:13 PM FISH GRADER YOUR MEDICATIONS: albuterol (VENTOLIN HFA, PROAIR HFA, [...] updates or questions. E-mail: [email or web address] Before going home from the hospital, please ask your doctor when you should re- start your medicines that were stopped before surgery. GRADER documented in this encounter Medications at Time [...] in a 24 hour period. Call your structural steel shop supervisor if you have to use this medication. [...] prescriptions. Patient to follow-up with her outside structural steel shop supervisor for Zio patch. Return precautions discussed. Greater than 31 minutes spent in discharge planning including discussion with patient, placement of discharge orders, documentation of discharge summary. Inocente Kate MD [facility] Q- 7052 * Angle Montgomery RN - [...] Belia Hansen MD - 10/01/2018 5:16 PM FISH GRADER Cardiology progress note. Subjective: No acute events [...] may not repeat in ?24 hours) - [id number] at least 3. Discussed benefits and risk for anti-correlation. Patient is agreeable to proceed with anticoagulation at least temporary for the next 6 weeks. She will follow with outpatient cardiology with the results of the monitor monitor. Consideration for implantable loop recorder with discussion with outpatient structural steel shop supervisor given 2 episodes of perioperative A. Fib to determine the longevity of anticoagulate. GRADER * Inocente Kate MD - 10/01/2018 11:33 AM FISH GRADER Progress Note - Medicine Today's Date: 10/01/2018 [...] due to age, sex, hypertension Taking metoprolol GRINDER OPERATOR TOOL 100 mg twice daily Started on diltiazem and converted to sinus rhythm on 09/30. Now with bradycardia, asymptomatic. We will decrease metoprolol to 50 mg twice daily Continue therapeutic anticoagulation for now, okay to discharge on Eliquis Cardiology discussed flecainide for abortive therapy Patient to follow-up with her home structural steel shop supervisor for zio patch monitoring to determine long-term [...] patient and her granddaughter. Inocente Kate MD [facility] Q- 7052 __ Subjective: No acute overnight [...] and other Diagnostics Review: Pertinent radiology reviewed. GRADER * Liza Hendricks RN - 10/01/2018 10:43 AM FISH GRADER Patient takes 5,000u vitamin D daily. Currently not on SEP. Sent text page to [facility] to notify. Tracking # [id number] GRADER * Mary Rowley - 10/01/2018 2:20 AM FISH GRADER MP Swing 4 paged to notify that patient has been at lowest rate of cardizem drip for one hour, has converted to sinus bradycardia and is sustaining a HR of low 40's. Pt BP low 100s/50s and pt resting comfortably in bed. Per william OVALLE to DC drip at this time. RN will continue to monitor. Lynda Beltrán RN - 09/30/2018 5:18 PM FISH GRADER Patient arrived to room # (HC815*) via [...] Doc Flowsheet for additional wound details. INTERVENTIONS: GRADER * Gumaro Dietrich MD - 09/30/2018 5:00 PM FISH GRADER Notified of preference for central line with esmolol infusion if duration anticipated to be prolonged. Since she has had minimal response to initial doses of esmolol, favor switching to Cardizem for rate control. Additionally, confirmed with her structural steel shop supervisor that she does not have a history of tachybradycardia syndrome and therefore a short acting agent is not the most important characteristic of the infused medication. Will switch to Cardizem with dose to titrate 5-15 mg to keep rate less than 110 greater than 60. Gumaro Dietrich MD GRADER * Lucille Gomez RN - 09/06/2018 12:06 PM FISH GRADER PAC phone triage completed with patient for [...] and copy of instructions emailed to her GRADER documented in this encounter H&P Notes * Gumaro Dietrich MD - 09/30/2018 2:13 PM FISH GRADER Admission H&P Department of Internal Medicine Assessment (current differential diagnosis) | Status Newonset atrial fibrillation with history of tachycardia (procedural physiologic stress v botulinum v ephedrine) | Asymptomatic, and the patient notes that historically had similar episodes.ERICH(2)DS(2)-VAsc score 3 and CVA risk ~3.2% per year for HTN, Age, Sex. Follows with a City Letter Carrier in [facility], and she notes she has had [...] 3:34 PM I spoke with her primary City Letter Carrier, who states after his note review that she has a history of palpitations, but no documented arrhythmia. Coronary artery disease | Asymptomatic. Prior to admission, on aspirin 81 mg daily. Her primary City Letter Carrier highlighted that in 2006 she had a catheterization that demonstrated mild coronary artery disease. RBBB | Not new. Noted on old EKG. Asthma | Controlled, with no evidence of exacerbation. Prior to admission, on Singulair and albuterol asneeded. Has not regularly needed it. Tolerates beta-coy GRINDER OPERATOR TOOL with no bronchospasm. Urinary incontinence | Status [...] mg every afternoon. ADOLPH | On CPAP GRINDER OPERATOR TOOL Morbid obesity | Body mass index is [...] CBC/INR TSH *I spoke with her Primary City Letter Carrier: Dr. Елена Ang [address] [place] [address]7224 [phone] Pager (I spoke with Urology, who stated [...] peripheral arterial disease. I spoke with her structural steel shop supervisor, and he highlighted that she had a [...] REPLACEMENT Left 09/14/2012 HIP REPLACEMENT Right 05/25/2013 [place] CYSTOURETHROSCOPY INJ CHEMODENERVATION BLADDER N/A 10/22/2015 CYSTOSCOPY, INTRAVESICAL BOTOX INJECTION (150Units) performed by Shefali Herring MD at Main OR/Periop [place] CYSTOURETHROSCOPY INJ CHEMODENERVATION BLADDER N/A 04/21/2016 CYSTOSCOPY, INTRAVESICAL BOTOX INJECTION (150 UNITS) performed by Shefali Herring MD at Main OR/Periop ABDOMINAL HERNIA REPAIR 05/2016 [place] NDSC NJX IMPLT MATRL URT&/BLDR NCK N/A 10/23/2016 CYSTOSCOPY, INJECTION BOTOX (150 UNITS) performed by Shefali Herring MD at Main OR/Periop [place] CYSTOURETHROSCOPY INJ CHEMODENERVATION BLADDER N/A 04/23/2017 CYSTOSCOPY, INJECTION BOTOX (150 UNITS) performed by Shefali Herrnig MD at Main OR/Periop CYSTOSCOPY N/A 09/28/2017 CYSTOSCOPY, INJECTION BOTOX (150 UNITS) performed by Shefali Herring MD at Main OR/Periop [place] CYSTOURETHROSCOPY INJ CHEMODENERVATION BLADDER N/A 03/29/2018 CYSTOSCOPY, [...] PACU I spoke directly with the Urologist. GRADER * Shefail Herring MD - 09/30/2018 9:48 AM FISH GRADER Admission History and Physical Examination Name: Mame [...] REPLACEMENT Left 09/14/2012 HIP REPLACEMENT Right 05/25/2013 [place] CYSTOURETHROSCOPY INJ CHEMODENERVATION BLADDER N/A 10/22/2015 CYSTOSCOPY, INTRAVESICAL BOTOX INJECTION (150Units) performed by Shefali Herring MD at Main OR/Periop [place] CYSTOURETHROSCOPY INJ CHEMODENERVATION BLADDER N/A 04/21/2016 CYSTOSCOPY, INTRAVESICAL BOTOX INJECTION (150 UNITS) performed by Shefali Herring MD at Main OR/Periop ABDOMINAL HERNIA REPAIR 05/2016 [place] NDSC NJX IMPLT MATRL URT&/BLDR NCK N/A 10/23/2016 CYSTOSCOPY, INJECTION BOTOX (150 UNITS) performed by Shefali Herring MD at Main OR/Periop [place] CYSTOURETHROSCOPY INJ CHEMODENERVATION BLADDER N/A 04/23/2017 CYSTOSCOPY, INJECTION BOTOX (150 UNITS) performed by Shefali Herring MD at Main OR/Periop CYSTOSCOPY N/A 09/28/2017 CYSTOSCOPY, INJECTION BOTOX (150 UNITS) performed by Shefali Herring MD at Main OR/Periop [place] CYSTOURETHROSCOPY INJ CHEMODENERVATION BLADDER N/A 03/29/2018 CYSTOSCOPY, [...] Pertinent radiology reviewed. Malcom Chaidez MD Pager [phone] ATTESTATION I personally performed the westfall portions of the E/M visit, discussed case with resident and concur with resident documentation of history, physical exam, assessment, and treatment plan unless otherwise noted. Staff name: Shefali Herring MD GRADER documented in this encounter Consult Notes * Megan Cutler MD - 09/30/2018 5:05 PM FISH GRADER Associated Order(s): CONSULT CARDIOLOGY PHYSICIAN STAFF CARDIOLOGY CONSULT NOTE Admission Date: 09/30/2018 Code Status: Full Code Reason for Consultation: New onset atrial fibrillation History of Present Illness: This is a 73 y.o. white female patient that was admitted to [facility] 2 undergo Botox injection of her [...] was restored. Patient does follow-up with a structural steel shop supervisor in [place], [place]. She underwent a left heart catheterization in 2006, she was not found to have any significantly obstructive coronary artery disease. She was seen by her structural steel shop supervisor a few days ago and was found [...] another surgical procedure. Patient follows with a structural steel shop supervisor in [place] and she does not have coronary [...] diet 9. Patient will follow-up with her structural steel shop supervisor in her hometown. Megan Cutler MD GRADER documented in this encounter Miscellaneous Notes * [...] Carlo He MD - 10/01/2018 3:50 AM FISH GRADER Please page [phone] with any questions until 8am after that please page med private Q GRADER * Operative Report (Direct Entry) - Shefali Herring MD - 09/30/2018 10:25 AM FISH GRADER OPERATIVE REPORT Name: Mame Archer is a [...] Date Type Specialty Shefali Herring MD [address] [facility] Ortho/Med Pavilion Lvl 2 [address] [place] [address] Urge incontinence 03/31/2019 Hospital Encounter Shefali Herring MD [address] Ortho/Med Pavilion Lvl [address] [place] [address] CYSTOURETHROSCOPY WITH INJECTION FOR CHEMODENERVATION OF THE BLADDER (BOTOX 150 UNITS) 03/31/2019 Surgery documented as of this encounter Procedures Comments Procedure Name Priority Date/Time Associated Diagnosis CBC AND DIFF Routine 10/02/2018 5:49 AM CDT MAGNESIUM Routine 10/02/2018 5:49 AM CDT COMPREHENSIVE METABOLIC Routine 10/02/2018 PANEL 5:49 AM CDT 2-D + DOPPLER Routine 10/01/2018 ECHOCARDIOGRAM 2:00 PM FISH GRADER CBC AND DIFF Routine 10/01/2018 4:29 AM FISH GRADER THYROID STIMULATING Add on 10/01/2018 HORMONE-TSH 4:29 AM FISH GRADER MAGNESIUM Routine 10/01/2018 4:29 AM FISH GRADER HEMOGLOBIN A1C Add on 10/01/2018 4:29 AM FISH GRADER LIPID PROFILE Routine 10/01/2018 4:29 AM FISH GRADER COMPREHENSIVE METABOLIC Routine 10/01/2018 PANEL 4:29 AM FISH GRADER TROPONIN-I STAT 09/30/2018 6:10 PM FISH GRADER PROTIME INR (PT) STAT 09/30/2018 6:10 PM FISH GRADER CBC STAT 09/30/2018 6:10 PM FISH GRADER ECG 12-LEAD Routine 09/30/2018 4:42 PM FISH GRADER TROPONIN-I 09/30/2018 2:13 PM FISH GRADER PHOSPHORUS STAT 09/30/2018 2:13 PM FISH GRADER MAGNESIUM STAT 09/30/2018 2:13 PM FISH GRADER BASIC METABOLIC PANEL STAT 09/30/2018 2:13 PM FISH GRADER CHEST SINGLE VIEW STAT 09/30/2018 2:11 PM FISH GRADER CYSTOURETHROSCOPY WITH 09/30/2018 Urge urinary incontinence INJECTION FOR 10:25 AM FISH GRADER CHEMODENERVATION OF THE BLADDER Special Needs 09/13 PER CHANGE FORM CASE MOVED FROM 09/27 TO 09/30 TO FOLLOW - CSesar DEXTER RN ([id number]) TELEMETRY STRIPS-SCAN 09/30/2018 12:00 AM FISH GRADER TELEMETRY STRIPS-SCAN 09/30/2018 12:00 AM FISH GRADER TELEMETRY STRIPS-SCAN 09/30/2018 12:00 AM FISH GRADER ECG-SCAN 09/30/2018 12:00 AM FISH GRADER documented in this encounter Results * MAGNESIUM (10/02/2018 5:49 AM CDT) Magnesium 1.8 1.6 - 2.6 mg/dL [facility] Specimen Blood Performing Organization Address [facility] Phone Number [facility] [address] [place] [address] * COMPREHENSIVE METABOLIC PANEL (10/02/2018 5:49 AM [...] >60 >60 mL/min [facility] Comment: [place] The eGFR is not validated for use in drug dosing adjustments.Continue to use estimated creatinine clearance per dosing reference text.Please contact the Clinical Pharmacist for questions. eGFR >60 >60 mL/min [facility] [place]ian Comment: The eGFR is not validated for use in drug dosing adjustments.Continue to use estimated creatinine clearance per dosing reference text.Please contact the Clinical Pharmacist for questions. Specimen Blood Performing Organization Address [facility] Centercode Phone Number [facility] [address] [place] [address] * CBC AND DIFF (10/02/2018 5:49 AM CDT) [facility] White Blood 6.4 4.5 - 11.0 [...] Address City/State/Zipcode Phone Number MAIN LAB [address] [place] [phone] * 2-D + DOPPLER ECHOCARDIOGRAM (10/01/2018 2:00 PM FISH GRADER) [facility] IVS 0.64 0.6 - 0.9 cm [...] 34 OTHER OUTSIDE Index LAB Cardiology Siemens [id number] OTHER OUTSIDE Ultrasound LAB Machine Left Ventricle [...] * THYROID STIMULATING HORMONE-TSH (10/01/2018 4:29 AM FISH GRADER) TSH 0.970 0.35 - 5.00 MCU/ML [facility] Performing Organization Address City/State/Zipcode Phone Number [facility] [address] [place] [address] * HEMOGLOBIN A1C (10/01/2018 4:29 AM FISH GRADER) Hemoglobin A1C 6.0 4.0 - 6.0 % [facility] Comment: The ADA recommends that most patients with type 1 and type 2 diabetes maintain an A1c level <7%. Performing Organization Address [facility] Centercode Phone Number MAIN LAB [address] [place] [address] * MAGNESIUM (10/01/2018 4:29 AM FISH GRADER) Pathologist [facility] Magnesium 1.9 1.6 - 2.6 mg/dL [facility] Specimen Blood Performing Organization Address [facility] Centercode Phone Number MAIN LAB [address] [place] [address] * COMPREHENSIVE METABOLIC PANEL (10/01/2018 4:29 AM FISH GRADER) Pathologist [facility] Sodium 141 137 - 147 MMOL/L [facility] [...] >60 >60 mL/min [facility] Comment: [place] The eGFR is not validated for use in drug dosing adjustments.Continue to use estimated creatinine clearance per dosing reference text.Please contact the Clinical Pharmacist for questions. eGFR >60 >60 mL/min [facility] [place] Comment: The eGFR is not validated for use in drug dosing adjustments.Continue to use estimated creatinine clearance per dosing reference text.Please contact the Clinical Pharmacist for questions. Specimen Blood Performing Organization Address [facility]/Zipcode Phone Number MAIN LAB [address] [place] [address] * CBC AND DIFF (10/01/2018 4:29 AM FISH GRADER) White Blood 9.1 4.5 - 11.0 K/UL [...] Basophil Count Specimen Blood Performing Organization Address City/[facility]/Zipcode Phone Number MAIN LAB [address] [place] [address] * LIPID PROFILE (10/01/2018 4:29 AM FISH GRADER) [facility] Cholesterol 123 <200 MG/DL [facility] MAIN [...] 130 mg/dL. Specimen Blood Performing Organization Address City/[facility]/Zipcode Phone Number MAIN LAB [address] [place] [address] * CBC (09/30/2018 6:10 PM FISH GRADER) [facility] White Blood 10.2 4.5 - 11.0 [...] MAIN LAB Specimen Blood Performing Organization Address City/[facility]/Zipcode Phone Number MAIN LAB [address] [place] [address] * PROTIME INR (PT) (09/30/2018 6:10 PM FISH GRADER) [facility] INR 1.0 0.8 - 1.2 MAIN LAB Specimen Blood Performing Organization Address City/[facility] Centercode Phone Number MAIN LAB [address] [place] [phone] * TROPONIN-I (09/30/2018 6:10 PM FISH GRADER) [facility] Troponin-I 0.01 0.0 - 0.05 NG/ML MAIN LAB Specimen Blood Performing Organization Address [facility] Centercode Phone Number MAIN LAB [address] [place] [address] * TROPONIN-I (09/30/2018 2:13 PM FISH GRADER) [facility] Troponin-I 0.01 0.0 - 0.05 NG/ML MAIN LAB Performing Organization Address [facility] Centercode Phone Number MAIN LAB [address] [place] [address] * PHOSPHORUS (09/30/2018 2:13 PM FISH GRADER) [facility] Phosphorus 3.4Comment: NOTE NEW REFERENCE 2.0 - 4.5 MG/DL MAIN LAB RANGES Specimen Blood Performing Organization Address [facility]/Zipcode Phone Number MAIN LAB [address] [place] [address] * MAGNESIUM (09/30/2018 2:13 PM FISH GRADER) Magnesium 1.9 1.6 - 2.6 mg/dL [facility] Specimen Blood Performing Organization Address City/[facility]/Zipcode Phone Number MAIN LAB [address] [place] [address] * BASIC METABOLIC PANEL (09/30/2018 2:13 PM FISH GRADER) Sodium 142 137 - 147 MMOL/L [facility] [...] >60 >60 mL/min [facility] Comment: [place] The eGFR is not validated for use in drug dosing adjustments.Continue to use estimated creatinine clearance per dosing reference text.Please contact the Clinical Pharmacist for questions. eGFR >60 >60 mL/min [facility] [place] Comment: The eGFR is not validated for use in drug dosing adjustments.Continue to use estimated creatinine clearance per dosing reference text.Please contact the Clinical Pharmacist for questions. Specimen Blood Performing Organization Address City/[facility]/Zipcode Phone Number MAIN LAB [address] [place] [phone] * CHEST SINGLE VIEW (09/30/2018 2:11 PM FISH GRADER) Impressions Performed At Poor depth of inspiration [...] Interface, Radiant Results - 09/30/2018 2:15 PM FISH GRADER Single view of the chest Clinical history: [...] RESULTS * TELEMETRY STRIPS-SCAN (09/30/2018 12:00 AM FISH GRADER) Narrative Performed At Ordered by an unspecified provider. * TELEMETRY STRIPS-SCAN (09/30/2018 12:00 AM FISH GRADER) Narrative Performed At Ordered by an unspecified provider. * TELEMETRY STRIPS-SCAN (09/30/2018 12:00 AM FISH GRADER) Narrative Performed At Ordered by an unspecified provider. * ECG-SCAN (09/30/2018 12:00 AM FISH GRADER) Narrative Performed At Ordered by an unspecified provider. documented in this encounter Visit Diagnoses Diagnosis Atrial fibrillation with rapid ventricular response (HCC) - Primary Atrial fibrillation Urge incontinence Paroxysmal atrial fibrillation (HCC) Atrial fibrillation Morbid obesity (HCC) Morbid obesity Coronary artery disease Coronary atherosclerosis of unspecified type of vessel, telida or graft Hypertension Unspecified essential hypertension Depression [...] Medication Order MAR Action 10/01/2018 12:10 PM FISH GRADER 650 mg acetaminophen (TYLENOL) tablet 650 mg [...] juice., 10 mg Given 10/01/2018 10:03 AM FISH GRADER 10 mg Given 09/30/2018 5:47 PM FISH GRADER 10/02/2018 10:13 AM CDT 81 mg aspirin EC tablet 81 mg Given 81 mg, Oral, DAILY, First dose on Wed10/01/18 at 0900, Until Discontinued 81 mg Given 10/01/2018 10:04 AM FISH GRADER 10/01/2018 8:37 PM FISH GRADER 80 mg atorvastatin (LIPITOR) tablet 80 mg Given 80 mg, Oral, AT BEDTIME DAILY, First dose on Wed09/30/18 at 2100, Until Discontinued 80 mg Given 09/30/2018 9:05 PM FISH GRADER 10/02/2018 10:13 AM CDT 5,000 Units cholecalciferol (VITAMIN D-3) tablet Given 5,000 Units 5,000 Units, Oral, DAILY, First dose on Wed10/01/18 at 1245, Until Discontinued 5,000 Units Given 10/01/2018 12:10 PM FISH GRADER 10/01/2018 1:37 AM FISH GRADER 5 mg/hr 5 mL/hr diltiazem (cardIZEM) 125 [...] Given - New Bag 10/01/2018 1:19 AM FISH GRADER 10 mg/hr 10 mL/hr Dose/Rate Change 10/01/2018 1:06 AM FISH GRADER 10/02/2018 6:07 AM CDT 120 mg Abdominal [...] mg Abdominal Tissue Given 10/01/2018 5:48 PM FISH GRADER 120 mg Abdominal Tissue Given 10/01/2018 6:05 AM FISH GRADER 09/30/2018 4:52 PM FISH GRADER 175 mcg/kg/min 126 mL/hr esmolol (BREVIBLOC) 2500 [...] 90 mL/hr Dose/Rate Change 09/30/2018 4:06 PM FISH GRADER 100 mcg/kg/min 72 mL/hr Dose/Rate Change 09/30/2018 3:46 PM FISH GRADER 10/02/2018 10:13 AM CDT 0.5 mg estradiol (ESTRACE) tablet 0.5 mg Given 0.5 mg, Oral, DAILY, First dose on Wed10/01/18 at 0900, Until Discontinued 0.5 mg Given 10/01/2018 10:05 AM FISH GRADER 09/30/2018 11:33 AM FISH GRADER 1,000 mL 20 mL/hr lactated ringers infusion Given - New 1,000 mL, 1,000 mL, Intravenous, at 20 Bag mL/hr, CONTINUOUS, Starting Wed09/30/18 at 0930, Until Wed09/30/18 at 1642, Pre-Op Given - New Bag 09/30/2018 9:55 AM FISH GRADER 10/01/2018 10:04 AM FISH GRADER 535 mg magnesium chloride (MAG DELAY) tablet Given 535 mg 535 mg, Oral, TWICE DAILY, 2 doses, First dose on Wed09/30/18 at 1515, Last dose on Wed10/01/18 at 0900, Each 535mg delivers 64mg elemental magnesium., 535 mg Given 09/30/2018 3:42 PM FISH GRADER 09/30/2018 12:38 PM FISH GRADER 10 mg metoprolol (LOPRESSOR) injection 10 mg Given 10 mg, Intravenous, ONCE, 1 dose, Wed09/30/18 at 1245, PROTECT FROM LIGHT, PACU (only) 09/30/2018 11:35 AM FISH GRADER 5 mg metoprolol (LOPRESSOR) injection 5 mg Given 5 mg, Intravenous, ONCE, 1 dose, Wed09/30/18 at 1145, PROTECT FROM LIGHT, PACU (only) 09/30/2018 11:58 AM FISH GRADER 5 mg metoprolol (LOPRESSOR) injection 5 mg Given 5 mg, Intravenous, ONCE, 1 dose, Wed09/30/18 at 1200, PROTECT FROM LIGHT, PACU (only) 09/30/2018 12:17 PM FISH GRADER 5 mg metoprolol (LOPRESSOR) injection 5 mg Given 5 mg, Intravenous, ONCE, 1 dose, Wed09/30/18 at 1230, PROTECT FROM LIGHT, PACU (only) 09/30/2018 9:05 PM FISH GRADER 100 mg metoprolol tartrate (LOPRESSOR) tablet Given [...] Created by cabinet override, 10/01/2018 8:37 PM FISH GRADER 10 mg montelukast (SINGULAIR) tablet 10 mg Given 10 mg, Oral, AT BEDTIME DAILY, First dose on Wed09/30/18 at 2100, Until Discontinued 10 mg Given 09/30/2018 9:05 PM FISH GRADER 09/30/2018 4:07 PM FISH GRADER 100 Units ONAbotulinum toxin (BOTOX) syringe 100 Given - See Units OR/Proc 100 Units, SEE ADMIN INSTRUCTIONS, ONCE, Flowsheet 1 dose, Wed09/30/18 at 0730, ++For immediate use ++ Short Stability++, 10/01/2018 2:01 PM FISH GRADER 1 Diluted mL perflutren lipid microspheres (DEFINITY) Given injection 1-20 Diluted mL 1-20 Diluted mL, Intravenous, ONCE PRN, 1 dose, Starting 10/01/18 at 1305, Until 10/01/18 at 1401, For Procedure, A j2ee software engineer may only administer Definity through a saline [...] Discontinued 150 mg Given 10/01/2018 10:04 AM FISH GRADER 10/01/2018 8:37 PM FISH GRADER 50 mg traZODone (DESYREL) tablet 50 mg Given 50 mg, Oral, AT BEDTIME DAILY, First dose on Wed09/30/18 at 2100, Until Discontinued 50 mg Given 09/30/2018 9:05 PM FISH GRADER 10/02/2018 10:14 AM CDT 1 tablet triamterene-hydrochlorothiazide Given (MAXZIDE) 37.5-25 mg tablet 1 tablet 1 tablet, Oral, EVERY MORNING, First dose on 10/01/18 at 0800, Until Discontinued 1 tablet Given 10/01/2018 10:04 AM FISH GRADER documented in this encounter
--- OUTSIDE RECORDS SUMMARY | 2018-10-25 08:51 | XMS REPORT | Encounter Summary ---
Author Author [facility] Organization [facility] Address Unknown Phone Unavailable Care Team Providers Care Modeling Analyst Name Role Phone Alan Ramachandran MD Unavailable [...] Department Nathanael Bradley SRNA 09/30/2018 Anesthesia [facility] OR [address] [address] Anesthesia Record Responsible Anesthesiologist Anesthesia [...] (2); LMA; 4; 1 insertion Chriss, Joana, DIRECTOR MEDICAL SAFETY attempt; Auscultation, End-tidal CO2; 09/30/18; 1037 documented [...] Susana Rojo MD - 09/30/2018 2:46 PM H[facility]MER SMITH Post-Anesthesia Evaluation Name: Mame Archer : 1945 [...] Perioperative Event: No Emergency Case Activation: No ER SMITH Associated attestation - Yobani Bahena MD - 09/30/2018 4:11 PM [facility]MER SM[facility] ATTESTATION Post-Anesthesia Evaluation Attestation: I reviewed and agree the indicated post- anesthesia care was provided. 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 See a salon shampoo assistant for tachycarida ) Hyperlipidemia Denies CP or [...] patient and spouse Plan discussed with: anesthesiologist, DIRECTOR MEDICAL SAFETY and SRNA. ER SMITH documented in this encounter Plan of Treatment Care Team Description Date Type Specialty Shefali Herring MD [address] [facility] [address] [place] [address] [phone] Urge incontinence 03/31/2019 Hospital Encounter Shefali Herring MD [address] [facility] [address] [place] [address] [phone] CYSTOURETHROSCOPY WITH INJECTION FOR CHEMODENERVATION OF THE BLADDER (BOTOX 150 UNITS) 03/31/2019 Surgery documented as of this encounter Results * ECG-SCAN (09/30/2018 12:00 AM HAMMER SMITH) Narrative Performed At Ordered by an unspecified provider. documented in this encounter Visit Diagnoses Not on filedocumented in this encounter Administered Medications Action Date Dose Rate Site Medication Order MAR Action 09/30/2018 10:21 AM HAMMER SMITH 2 g ceFAZolin (ANCEF) injection Given INTRA-PROCEDURE MED, Starting Wed09/30/18 at 1021, Until Wed09/30/18 at 1050, Anesthesia Intra-op 09/30/2018 10:25 AM HAMMER SMITH 4 mg dexamethasone (DECADRON) injection Given Intravenous, INTRA-PROCEDURE MED, Starting Wed09/30/18 at 1025, Until Wed09/30/18 at 1050, Anesthesia Intra-op 09/30/2018 10:12 AM HAMMER SMITH 2 drops dextran 70/hypromellose (GENTEAL TEARS; Given BION TEARS) ophthalmic solution INTRA-PROCEDURE MED, Starting Wed09/30/18 at 1012, Until Wed09/30/18 at 1050, Anesthesia Intra-op 09/30/2018 10:30 AM HAMMER SMITH 10 mg ePHEDrine 50 mg/mL 50 mg in sodium Bolus chloride PF 0.9% 5 mL IV syringe 5 mL, INTRA-PROCEDURE MED(CONT), Starting Wed09/30/18 at 1015, Until Wed09/30/18 at 1050, Anesthesia Intra-op 10 mg Bolus 09/30/2018 10:22 AM HAMMER SMITH 10 mg Given - New Bag 09/30/2018 10:15 AM HAMMER SMITH 09/30/2018 10:10 AM HAMMER SMITH 25 mcg fentaNYL citrate PF (SUBLIMAZE) Given injection INTRA-PROCEDURE MED, Starting Wed09/30/18 at 1010, Until Wed09/30/18 at 1050, Anesthesia Intra-op 09/30/2018 10:24 AM HAMMER SMITH 0.2 mg glycopyrrolate (ROBINUL) injection Given INTRA-PROCEDURE MED, Starting Wed09/30/18 at 1015, Until Wed09/30/18 at 1050, Anesthesia Intra-op 0.2 mg Given 09/30/2018 10:15 AM HAMMER SMITH 09/30/2018 11:33 AM HAMMER SMITH 1,000 mL 20 mL/hr lactated ringers infusion Given - New 1,000 mL, 1,000 mL, Intravenous, at 20 Bag mL/hr, CONTINUOUS, Starting Wed09/30/18 at 0930, Until Wed09/30/18 at 1642, Pre-Op Given - New Bag 09/30/2018 9:55 AM HAMMER SMITH 09/30/2018 10:10 AM HAMMER SMITH 80 mg lidocaine (PF) injection Given INTRA-PROCEDURE MED, Starting Wed09/30/18 at 1010, Until Wed09/30/18 at 1050, Anesthesia Intra-op 09/30/2018 10:25 AM HAMMER SMITH 4 mg ondansetron (ZOFRAN) injection Given Intravenous, INTRA-PROCEDURE MED, Starting Wed09/30/18 at 1025, Until Wed09/30/18 at 1050, Anesthesia Intra-op 09/30/2018 10:17 AM HAMMER SMITH 40 mg propofol (DIPRIVAN) injection Given INTRA-PROCEDURE MED, Starting Wed09/30/18 at 1010, Until Wed09/30/18 at 1050, Anesthesia Intra-op 140 mg Given 09/30/2018 10:10 AM HAMMER SMITH documented in this encounter
--- OUTSIDE RECORDS SUMMARY | 2018-10-25 08:52 | XMS REPORT | Encounter Summary ---
Author Author [facility] Address Unknown Phone Unavailable Care Team Providers Care Embedded Software Development Engineer Name Role Phone Alan Ramachandran MD Unavailable [...] Date Type Department Shefali Herring MD [address] Ortho/Med Pavilion L[address] [place] [address] CYSTOSCOPY WITH BOTOX INJECTION (150 UNITS) 09/30/2018 Surgery [facility] - [facility] OR [address] [address] Social History Date Tobacco Use [...] Inhaled Oxygen - Concentration 10/01/2018 2:00 PM SUPERVISOR COMPUTER OPERATIONS Weight 121.6 kg (268 lb) 10/01/2018 2:00 PM SUPERVISOR COMPUTER OPERATIONS Height 170.2 cm (5' 7") 10/01/2018 2:00 PM SUPERVISOR COMPUTER OPERATIONS Body Mass Index 41.97 documented in this [...] 10/02/2018 Attending Physician: Inocente Kate MD Service: [facility] Q - [id number] Physician Summary [...] - 2-D + DOPPLER ECHOCARDIOGRAM Location Performed: [facility] Status: Final result Procedure Ordered By: Megan Cutler MD [phone] Referring Provider: Interpreting Physician: Aram Rojas MD Fellow: Location of Interp: [facility] Ammonium Sulfate Operator: Lindsey Diaz Machine: Siemens [id number] Indications: Atrial fibrillation Study done at patient [...] peak velocity 1.86 m/s Signed at 1538 SUPERVISOR COMPUTER OPERATIONS Brief Hospital Course: The patient was admitted [...] that she follow up with her primary director of global sales and have a zio patch or some sort of longer-term atrial fibrillation monitoring in order to determine whether she needed local intermodal truck driver anticoagulation or if afib [...] or concerns regarding your hospital stay. Call [phone] Discharging attending physician: INOCENTE KATE [[id number]] Regular Diet You have no dietary restriction. [...] a 24 hour period. Call your director of global sales if you have to use this medication. [...] a follow up appointment with your primary director of global sales in the next 2-4 weeks. Pending items needing follow up: 1. Ambulatory cardiac monitoring 2. Determination of anticoagulation timeline Signed: Inocente Kate MD 10/05/2018 cc: Primary Care Physician: Breanna Broderick Verified Referring physicians: Breanna Broderick DO Additional provider(s): Dr. Елена Ang [address] [place] [address] [phone] documented in this encounter Discharge Instructions * Patient Instructions* Karly Mcmillan RN - 09/30/2018 10:54 AM SUPERVISOR COMPUTER OPERATIONS Discharge Instructions: After Your Surgery Youve just [...] interact with your prescription medicines or other hxay-vdj-dhvrtvz (OTC) medicines. Some prescription medicines have acetaminophen [...] of taking these medicines. Date Last Reviewed: 06/25/[id number] [employer]. [address] [place] [address]. All rights reserved. This information is not intended as a substitute for professional medical care. Always follow your healthcare professional's instructions. RVISOR COMPUTER OPERATIONS * Appointments* Inocente Kate MD - 10/02/2018 10:00 AM CDT Please schedule a follow up appointment with your primary director of global sales in the next 2-4 weeks. * Pre-Anesthesia Patient Instructions* Lucille Gomez RN - 09/06/2018 12:11 PM SUPERVISOR COMPUTER OPERATIONS GENERAL INFORMATION Before you come to the [...] and any other valuables at home. The [facility] is not responsible for the loss or breakage of personal items. Remove nail czech, makeup and all jewelry (including piercings) before coming to the hospital. The morning of your procedure: brush your teeth and tongue do not smoke do not shave the area where you will have surgery What to bring to the hospital ID/ Insurance Card Training And Development Manager card Official documents for legal guardianship Copy of your Living Will, Advanced Directives, and/or Durable Power of Supervisor Powdered Metal Small bag with a few personal belongings [...] do not receive a call, please call [phone] before 4:30pm or [phone] after 4:30pm. Notify us at [facility]: if you need to cancel your procedure if you are going to be late Arrival at the [facility] [address] [place] [address] Park in the Parking Garage, located directly across from the main entrance to the hospital. Transportation Solutions Manager parking is available from 7 AM to [...] if you need to provide a sample. RVISOR COMPUTER OPERATIONS * Pre-Anesthesia Medication Instructions* Lucille Gomez RN - 09/06/2018 12:13 PM SUPERVISOR COMPUTER OPERATIONS YOUR MEDICATIONS: albuterol (VENTOLIN HFA, PROAIR HFA, [...] with any medicine updates or questions. E-mail: [email or web address] Before going home from the hospital, please ask your doctor when you should re- start your medicines that were stopped before surgery. RVISOR COMPUTER OPERATIONS documented in this encounter Medications at Time [...] a 24 hour period. Call your director of global sales if you have to use this medication. [...] prescriptions. Patient to follow-up with her outside director of global sales for Zio patch. Return precautions discussed. Greater than 31 minutes spent in discharge planning including discussion with patient, placement of discharge orders, documentation of discharge summary. Inocente Kate MD [facility] Q- [id number] * Angle Montgomery [...] Belia Hansen MD - 10/01/2018 5:16 PM SUPERVISOR COMPUTER OPERATIONS Cardiology progress note. Subjective: No acute events [...] may not repeat in ?24 hours) - [id number] at least 3. Discussed benefits and risk for anti-correlation. Patient is agreeable to proceed with anticoagulation at least temporary for the next 6 weeks. She will follow with outpatient cardiology with the results of the monitor monitor. Consideration for implantable loop recorder with discussion with outpatient director of global sales given 2 episodes of perioperative A. Fib to determine the longevity of anticoagulate. RVISOR COMPUTER OPERATIONS * Inocente Kate MD - 10/01/2018 11:33 AM SUPERVISOR COMPUTER OPERATIONS Progress Note - Medicine Today's Date: 10/01/2018 [...] due to age, sex, hypertension Taking metoprolol THERMOSPRAY OPERATOR 100 mg twice daily Started on diltiazem and converted to sinus rhythm on 09/30. Now with bradycardia, asymptomatic. We will decrease metoprolol to 50 mg twice daily Continue therapeutic anticoagulation for now, okay to discharge on [facility] Cardiology discussed flecainide for abortive therapy Patient to follow-up with her home director of global sales for zio patch monitoring to determine long-term [...] patient and her granddaughter. Inocente Kate MD [facility] Q- [id number] __ Subjective: No acute overnight events. Patient [...] and other Diagnostics Review: Pertinent radiology reviewed. RVISOR COMPUTER OPERATIONS * Liza Hendricks RN - 10/01/2018 10:43 AM SUPERVISOR COMPUTER OPERATIONS Patient takes 5,000u vitamin D daily. Currently not on SEP. Sent text page to [facility] to notify. Tracking # [id number] [employer]OR COMPUTER [employer]PERATIONS * Mary Rowley - 10/01/2018 2:20 AM SUPERVISOR COMPUTER OPERATIONS MP Swing 4 paged to notify that [...] Lynda Barroso RN - 09/30/2018 5:18 PM SUPERVISOR COMPUTER OPERATIONS Patient arrived to room # (HC815*) via [...] Doc Flowsheet for additional wound details. INTERVENTIONS: RVISOR COMPUTER OPERATIONS * Gumaro Dietrich MD - 09/30/2018 5:00 PM SUPERVISOR COMPUTER OPERATIONS Notified of preference for central line with esmolol infusion if duration anticipated to be prolonged. Since she has had minimal response to initial doses of esmolol, favor switching to Cardizem for rate control. Additionally, confirmed with her director of global sales that she does not have a history of tachybradycardia syndrome and therefore a short acting agent is not the most important characteristic of the infused medication. Will switch to Cardizem with dose to titrate 5-15 mg to keep rate less than 110 greater than 60. Gumaro Dietrich MD RVISOR COMPUTER [employer]PERATIONS * Lucille Gomez RN - 09/06/2018 12:06 PM SUPERVISOR COMPUTER OPERATIONS PAC phone triage completed with patient for [...] and copy of instructions emailed to her RVISOR COMPUTER OPERATIONS documented in this encounter H&P Notes * Gumaro Dietrich MD - 09/30/2018 2:13 PM SUPERVISOR COMPUTER OPERATIONS Admission H&P Department of Internal Medicine Assessment (current differential diagnosis) | Status Newonset atrial fibrillation with history of tachycardia (procedural physiologic stress v botulinum v ephedrine) | Asymptomatic, and the patient notes that historically had similar episodes.ERICH(2)DS(2)-VAsc score 3 and CVA risk ~3.2% per year for HTN, Age, Sex. Follows with a Meter And Service Line Inspector in [facility], and she notes she has [...] 3:34 PM I spoke with her primary Meter And Service Line Inspector, who states after his note review that she has a history of palpitations, but no documented arrhythmia. Coronary artery disease | Asymptomatic. Prior to admission, on aspirin 81 mg daily. Her primary Meter And Service Line Inspector highlighted that in 2006 she had a catheterization that demonstrated mild coronary artery disease. RBBB | Not new. Noted on old EKG. Asthma | Controlled, with no evidence of exacerbation. Prior to admission, on Singulair and albuterol asneeded. Has not regularly needed it. Tolerates beta-coy THERMOSPRAY OPERATOR with no bronchospasm. Urinary incontinence | [...] mg every afternoon. ADOLPH | On CPAP THERMOSPRAY OPERATOR Morbid obesity | Body mass index [...] CBC/INR TSH *I spoke with her Primary Meter And Service Line Inspector: Dr. Елена Ang [address] [place] [address] [phone] Pager (I spoke with Urology, who stated [...] peripheral arterial disease. I spoke with her director of global sales, and he highlighted that she had a [...] REPLACEMENT Left 09/14/2012 HIP REPLACEMENT Right 05/25/2013 NM CYSTOURETHROSCOPY INJ CHEMODENERVATION BLADDER N/A 10/22/2015 CYSTOSCOPY, INTRAVESICAL BOTOX INJECTION (150Units) performed by Shefali Herring MD at Main OR/Periop NM CYSTOURETHROSCOPY INJ CHEMODENERVATION BLADDER N/A 04/21/2016 CYSTOSCOPY, INTRAVESICAL BOTOX INJECTION (150 UNITS) performed by Shefali Herring MD at Main OR/Periop ABDOMINAL HERNIA REPAIR 05/2016 NM NDSC NJX IMPLT MATRL URT&/BLDR NCK N/A 10/23/2016 CYSTOSCOPY, INJECTION BOTOX (150 UNITS) performed by Shefali Herring MD at Main OR/Periop NM CYSTOURETHROSCOPY INJ CHEMODENERVATION BLADDER N/A 04/23/2017 CYSTOSCOPY, INJECTION BOTOX (150 UNITS) performed by Shefali Herring MD at Main OR/Periop CYSTOSCOPY N/A 09/28/2017 CYSTOSCOPY, INJECTION BOTOX (150 UNITS) performed by Shefali Herring MD at Main OR/Periop NM CYSTOURETHROSCOPY INJ CHEMODENERVATION BLADDER N/A 03/29/2018 CYSTOSCOPY, [...] PACU I spoke directly with the Urologist. RVISOR COMPUTER OPERATIONS * Shefali Herring MD - 09/30/2018 9:48 AM SUPERVISOR COMPUTER OPERATIONS Admission History and Physical Examination Name: Mame [...] REPLACEMENT Left 09/14/2012 HIP REPLACEMENT Right 05/25/2013 NM CYSTOURETHROSCOPY INJ CHEMODENERVATION BLADDER N/A 10/22/2015 CYSTOSCOPY, INTRAVESICAL BOTOX INJECTION (150Units) performed by Shefali Herring MD at Main OR/Periop NM CYSTOURETHROSCOPY INJ CHEMODENERVATION BLADDER N/A 04/21/2016 CYSTOSCOPY, INTRAVESICAL BOTOX INJECTION (150 UNITS) performed by Shefali Herring MD at Main OR/Periop ABDOMINAL HERNIA REPAIR 05/2016 NM NDSC NJX IMPLT MATRL URT&/BLDR NCK N/A 10/23/2016 CYSTOSCOPY, INJECTION BOTOX (150 UNITS) performed by Shefali Herring MD at Main OR/Periop NM CYSTOURETHROSCOPY INJ CHEMODENERVATION BLADDER N/A 04/23/2017 CYSTOSCOPY, INJECTION BOTOX (150 UNITS) performed by Shefali Herring MD at Main OR/Periop CYSTOSCOPY N/A 09/28/2017 CYSTOSCOPY, INJECTION BOTOX (150 UNITS) performed by Shefali Herring MD at Main OR/Periop NM CYSTOURETHROSCOPY INJ CHEMODENERVATION BLADDER N/A 03/29/2018 CYSTOSCOPY, [...] Pertinent radiology reviewed. Malcom Chaidez MD Pager [phone] ATTESTATION I personally performed the westfall portions of the E/M visit, discussed case with resident and concur with resident documentation of history, physical exam, assessment, and treatment plan unless otherwise noted. Staff name: Shefali Herring MD [employer]ISOR COMPUTER [employer]PERATIONS documented in this encounter Consult Notes * Megan Cutler MD - 09/30/2018 5:05 PM SUPERVISOR COMPUTER OPERATIONS Associated Order(s): CONSULT CARDIOLOGY PHYSICIAN STAFF CARDIOLOGY CONSULT NOTE Admission Date: 09/30/2018 Code Status: Full Code Reason for Consultation: New onset atrial fibrillation History of Present Illness: This is a 73 y.o. white female patient that was admitted to [facility] 2 undergo Botox injection of her [...] was restored. Patient does follow-up with a director of global sales in [place]. She underwent a left heart catheterization in 2006, she was not found to have any significantly obstructive coronary artery disease. She was seen by her director of global sales a few days ago and was found [...] another surgical procedure. Patient follows with a director of global sales in [place], [place] and she does not have coronary [...] diet 9. Patient will follow-up with her director of global sales in her hometown. Megan Cutler MD RVISOR COMPUTER OPERATIONS documented in this encounter Miscellaneous Notes * [...] Carlo He MD - 10/01/2018 3:50 AM SUPERVISOR COMPUTER OPERATIONS Please page [phone] with any questions until 8am after that please page med private Q [employer]ISOR COMPUTER OPERATIONS * Operative Report (Direct Entry) - Shefali Herring MD - 09/30/2018 10:25 AM SUPERVISOR COMPUTER OPERATIONS OPERATIVE REPORT Name: Mame Archer is a [...] Date Type Specialty Shefali Herring MD [address] Ortho/Med Pavilion L[address] [place] [address] [phone] Urge incontinence 03/31/2019 Hospital Encounter Shefali Herring MD [address] Ortho/Med Pavilion [address] [place] [address] [phone] CYSTOURETHROSCOPY WITH INJECTION FOR CHEMODENERVATION OF THE BLADDER (BOTOX 150 UNITS) 03/31/2019 Surgery documented as of this encounter Procedures Comments Procedure Name Priority Date/Time Associated Diagnosis CBC AND DIFF Routine 10/02/2018 5:49 AM CDT MAGNESIUM Routine 10/02/2018 5:49 AM CDT COMPREHENSIVE METABOLIC Routine 10/02/2018 PANEL 5:49 AM CDT 2-D + DOPPLER Routine 10/01/2018 ECHOCARDIOGRAM 2:00 PM SUPERVISOR COMPUTER OPERATIONS CBC AND DIFF Routine 10/01/2018 4:29 AM SUPERVISOR COMPUTER OPERATIONS THYROID STIMULATING Add on 10/01/2018 HORMONE-TSH 4:29 AM SUPERVISOR COMPUTER OPERATIONS MAGNESIUM Routine 10/01/2018 4:29 AM SUPERVISOR COMPUTER OPERATIONS HEMOGLOBIN A1C Add on 10/01/2018 4:29 AM SUPERVISOR COMPUTER OPERATIONS LIPID PROFILE Routine 10/01/2018 4:29 AM SUPERVISOR COMPUTER OPERATIONS COMPREHENSIVE METABOLIC Routine 10/01/2018 PANEL 4:29 AM SUPERVISOR COMPUTER OPERATIONS TROPONIN-I STAT 09/30/2018 6:10 PM SUPERVISOR COMPUTER OPERATIONS PROTIME INR (PT) STAT 09/30/2018 6:10 PM SUPERVISOR COMPUTER OPERATIONS CBC STAT 09/30/2018 6:10 PM SUPERVISOR COMPUTER OPERATIONS ECG 12-LEAD Routine 09/30/2018 4:42 PM SUPERVISOR COMPUTER OPERATIONS TROPONIN-I 09/30/2018 2:13 PM SUPERVISOR COMPUTER OPERATIONS PHOSPHORUS STAT 09/30/2018 2:13 PM SUPERVISOR COMPUTER OPERATIONS MAGNESIUM STAT 09/30/2018 2:13 PM SUPERVISOR COMPUTER OPERATIONS BASIC METABOLIC PANEL STAT 09/30/2018 2:13 PM SUPERVISOR COMPUTER OPERATIONS CHEST SINGLE VIEW STAT 09/30/2018 2:11 PM SUPERVISOR COMPUTER OPERATIONS CYSTOURETHROSCOPY WITH 09/30/2018 Urge urinary incontinence INJECTION FOR 10:25 AM SUPERVISOR COMPUTER OPERATIONS CHEMODENERVATION OF THE BLADDER Special Needs 09/13 PER CHANGE FORM CASE MOVED FROM 09/27 TO 09/30 TO FOLLOW - CSesar DEXTER RN ([id number]) TELEMETRY STRIPS-SCAN 09/30/2018 12:00 AM SUPERVISOR COMPUTER OPERATIONS TELEMETRY STRIPS-SCAN 09/30/2018 12:00 AM SUPERVISOR COMPUTER OPERATIONS TELEMETRY STRIPS-SCAN 09/30/2018 12:00 AM SUPERVISOR COMPUTER OPERATIONS ECG-SCAN 09/30/2018 12:00 AM SUPERVISOR COMPUTER OPERATIONS documented in this encounter Results * MAGNESIUM (10/02/2018 5:49 AM CDT) Magnesium 1.8 1.6 - 2.6 mg/dL [facility] Specimen Blood Performing Organization Address City/[facility]/Zipcode Phone Number [facility] [address] [place] [address] * COMPREHENSIVE METABOLIC PANEL (10/02/2018 5:49 AM CDT) [facility] Sodium 142 137 - 147 MMOL/L K[facility] [...] >60 >60 mL/min [facility] Comment: [place] The eGFR is not validated for use in drug dosing adjustments.Continue to use estimated creatinine clearance per dosing reference text.Please contact the Clinical Pharmacist for questions. eGFR >60 >60 mL/min [facility] [place] Comment: The eGFR is not validated for use in drug dosing adjustments.Continue to use estimated creatinine clearance per dosing reference text.Please contact the Clinical Pharmacist for questions. Specimen Blood Performing Organization Address City/[facility]/Zipcode Phone Number MAIN LAB [address] [place] [address] * CBC AND DIFF (10/02/2018 5:49 AM CDT) [facility] White Blood 6.4 4.5 - 11.0 K/UL [...] Absolute Lymph 1.90 1.0 - 4.8 K/[facility]IN [facility] Count Absolute 0.40 0 - 0.80 K/[facility]IN [facility] Monocyte Count Absolute 0.20 0 - 0.45 K/UL [facility] Eosinophil Count Absolute 0.00 0 - 0.20 K/UL [facility] Basophil Count Specimen Blood Performing Organization Address City/State/Zipcode Phone Number [facility] [address] [place] [address] * 2-D + DOPPLER ECHOCARDIOGRAM (10/01/2018 2:00 PM SUPERVISOR COMPUTER OPERATIONS) IVS 0.64 0.6 - 0.9 cm OTHER [...] 34 OTHER OUTSIDE Index LAB Cardiology Siemens [id number] OTHER OUTSIDE Ultrasound LAB Machine Left Ventricle [...] No Pericardial Effusion PASP=37mmHg Performing Organization Address City/[facility]/Zipcode Phone Number OTHER OUTSIDE LAB * THYROID STIMULATING HORMONE-TSH (10/01/2018 4:29 AM SUPERVISOR COMPUTER OPERATIONS) TSH 0.970 0.35 - 5.00 MCU/ML MAIN LAB Performing Organization Address City/[facility] Phone Number MA[facility] LAB [address] [place] [address] * HEMOGLOBIN A1C (10/01/2018 4:29 AM SUPERVISOR COMPUTER OPERATIONS) Hemoglobin A1C 6.0 4.0 - 6.0 % [facility] Comment: The ADA recommends that most patients with type 1 and type 2 diabetes maintain an A1c level <7%. Performing Organization Address City/State/Zipcode Phone Number MAIN LAB [address] [place] [address] * MAGNESIUM (10/01/2018 4:29 AM SUPERVISOR COMPUTER OPERATIONS) Magnesium 1.9 1.6 - 2.6 mg/dL [facility] Specimen Blood Performing Organization Address City/[facility]/Zipcode Phone Number [facility] [address] [place] [address] * COMPREHENSIVE METABOLIC PANEL (10/01/2018 4:29 AM SUPERVISOR COMPUTER OPERATIONS) Sodium 141 137 - 147 MMOL/L K[facility] [...] >60 >60 mL/min [facility] Comment: [place] The eGFR is not validated for use in drug dosing adjustments.Continue to use estimated creatinine clearance per dosing reference text.Please contact the Clinical Pharmacist for questions. eGFR >60 >60 mL/min [facility] [place] Comment: The eGFR is not validated for use in drug dosing adjustments.Continue to use estimated creatinine clearance per dosing reference text.Please contact the Clinical Pharmacist for questions. Specimen Blood Performing Organization Address City/State/Zipcode Phone Number [facility] [address] [place] [address] * CBC AND DIFF (10/01/2018 4:29 AM SUPERVISOR COMPUTER OPERATIONS) White Blood 9.1 4.5 - 11.0 K/UL [...] Organization Address City/[facility] Phone Number MAIN LAB [address] [place] [address] * LIPID PROFILE (10/01/2018 4:29 AM SUPERVISOR COMPUTER OPERATIONS) Cholesterol 123 <200 MG/DL [facility] [...] Organization Address City/[facility] Phone Number [facility] [address] [place] [address] * CBC (09/30/2018 6:10 PM SUPERVISOR COMPUTER OPERATIONS) White Blood 10.2 4.5 - 11.0 K/UL [...] Organization Address City/[facility] Phone Number MAIN LAB [address] [place] [address] * PROTIME INR (PT) (09/30/2018 6:10 PM SUPERVISOR COMPUTER OPERATIONS) INR 1.0 0.8 - 1.2 MAIN LAB Specimen Blood Performing Organization Address City/[facility] Phone Number MAIN LAB [address] [place] [address] * TROPONIN-I (09/30/2018 6:10 PM SUPERVISOR COMPUTER OPERATIONS) Troponin-I 0.01 0.0 - 0.05 NG/ML MAIN LAB Specimen Blood Performing Organization Address [facility] Phone Number MAIN LAB [address] [place] [address] * TROPONIN-I (09/30/2018 2:13 PM SUPERVISOR COMPUTER OPERATIONS) Troponin-I 0.01 0.0 - 0.05 NG/ML MAIN LAB Performing Organization Address [facility] Phone Number MAIN LAB [address] [place] [address] * PHOSPHORUS (09/30/2018 2:13 PM SUPERVISOR COMPUTER OPERATIONS) Phosphorus 3.4Comment: NOTE NEW REFERENCE 2.0 - 4.5 MG/DL MAIN LAB RANGES Specimen Blood Performing Organization Address City/[facility] Phone Number MAIN LAB [address] [place] [address] * MAGNESIUM (09/30/2018 2:13 PM SUPERVISOR COMPUTER OPERATIONS) Magnesium 1.9 1.6 - 2.6 mg/dL MAIN LAB Specimen Blood Performing Organization Address [facility] Phone Number MAIN LAB [address] [place] [address] * BASIC METABOLIC PANEL (09/30/2018 2:13 PM SUPERVISOR COMPUTER OPERATIONS) Sodium 142 137 - 147 MMOL/L MAIN [...] >60 >60 mL/min [facility] Comment: [place] The eGFR is not validated for use in drug dosing adjustments.Continue to use estimated creatinine clearance per dosing reference text.Please contact the Clinical Pharmacist for questions. eGFR >60 >60 mL/min [facility] [place] Comment: The eGFR is not validated for use in drug dosing adjustments.Continue to use estimated creatinine clearance per dosing reference text.Please contact the Clinical Pharmacist for questions. Specimen Blood Performing Organization Address City/State/Zipcode Phone Number MAIN LAB [address] [place] [address] * CHEST SINGLE VIEW (09/30/2018 2:11 PM SUPERVISOR COMPUTER OPERATIONS) Impressions Performed At Poor depth of inspiration [...] Interface, Radiant Results - 09/30/2018 2:15 PM SUPERVISOR COMPUTER OPERATIONS Single view of the chest Clinical history: [...] RESULTS * TELEMETRY STRIPS-SCAN (09/30/2018 12:00 AM SUPERVISOR COMPUTER OPERATIONS) Narrative Performed At Ordered by an unspecified provider. * TELEMETRY STRIPS-SCAN (09/30/2018 12:00 AM SUPERVISOR COMPUTER OPERATIONS) Narrative Performed At Ordered by an unspecified provider. * TELEMETRY STRIPS-SCAN (09/30/2018 12:00 AM SUPERVISOR COMPUTER OPERATIONS) Narrative Performed At Ordered by an unspecified provider. * ECG-SCAN (09/30/2018 12:00 AM SUPERVISOR COMPUTER OPERATIONS) Narrative Performed At Ordered by an unspecified provider. documented in this encounter Visit Diagnoses Diagnosis Urge urinary incontinence Urge incontinence documented in this encounter Admitting Diagnoses Diagnosis Atrial flutter with rapid ventricular response (HCC) Atrial flutter documented in this encounter Administered Medications Action Date Dose Rate Site Medication Order MAR Action 10/01/2018 12:10 PM SUPERVISOR COMPUTER OPERATIONS 650 mg acetaminophen (TYLENOL) tablet 650 mg [...] juice., 10 mg Given 10/01/2018 10:03 AM [employer] 10 mg Given 09/30/2018 5:47 PM [employer] 10/02/2018 10:13 AM CDT 81 mg aspirin EC tablet 81 mg Given 81 mg, Oral, DAILY, First dose on Wed10/01/18 at 0900, Until Discontinued 81 mg Given 10/01/2018 10:04 AM [employer] 10/01/2018 8:37 PM [employer] 80 mg atorvastatin (LIPITOR) tablet 80 mg Given 80 mg, Oral, AT BEDTIME DAILY, First dose on 09/30/18 at 2100, Until Discontinued 80 mg Given 09/30/2018 9:05 PM [employer] 10/02/2018 10:13 AM CDT 5,000 Units cholecalciferol (VITAMIN D-3) tablet Given 5,000 Units 5,000 Units, Oral, DAILY, First dose on Wed10/01/18 at 1245, Until Discontinued 5,000 Units Given 10/01/2018 12:10 PM [employer] 10/02/2018 6:07 AM CDT 120 mg Abdominal [...] mg Abdominal Tissue Given 10/01/2018 5:48 PM [employer] 120 mg Abdominal Tissue Given 10/01/2018 6:05 AM [employer] 10/02/2018 10:13 AM CDT 0.5 mg estradiol (ESTRACE) tablet 0.5 mg Given 0.5 mg, Oral, DAILY, First dose on Wed10/01/18 at 0900, Until Discontinued 0.5 mg Given 10/01/2018 10:05 AM [employer] metoprolol tartrate (LOPRESSOR) tablet 50 mg 50 mg, Oral, TWICE DAILY, First dose on Wed10/01/18 at 2100, Until Discontinued, Hold for heart rate < 60 bpm Hold if SBP less 100, 10/01/2018 8:37 PM [employer] 10 mg montelukast (SINGULAIR) tablet 10 mg Given 10 mg, Oral, AT BEDTIME DAILY, First dose on Wed09/30/18 at 2100, Until Discontinued 10 mg Given 09/30/2018 9:05 PM [employer] 09/30/2018 10:15 AM [employer] 150 Units ONAbotulinum toxin A (BOTOX) injection Given INTRA-PROCEDURE MED, Starting Wed09/30/18 at 1026, Until Wed09/30/18 at 1037, Intra-op 10/02/2018 10:13 AM CDT 150 mg sertraline (ZOLOFT) tablet 150 mg Given 150 mg, Oral, EVERY MORNING, First dose on Wed10/01/18 at 0800, Until Discontinued 150 mg Given 10/01/2018 10:04 AM [employer] 09/30/2018 10:26 AM [employer] 3,000 mL sodium chloride 0.9 % irrigation bag Given INTRA-PROCEDURE MED, Starting Wed09/30/18 at 1026, Until Wed09/30/18 at 1037, Intra-op 10/01/2018 8:37 PM [employer] 50 mg traZODone (DESYREL) tablet 50 mg Given 50 mg, Oral, AT BEDTIME DAILY, First dose on Wed09/30/18 at 2100, Until Discontinued 50 mg Given 09/30/2018 9:05 PM [employer] 10/02/2018 10:14 AM CDT 1 tablet triamterene-hydrochlorothiazide Given (MAXZIDE) 37.5-25 mg tablet 1 tablet 1 tablet, Oral, EVERY MORNING, First dose on Wed10/01/18 at 0800, Until Discontinued 1 tablet Given 10/01/2018 10:04 AM [employer] documented in this encounter
[2018-10-25 09:02] LABS: HEMOGLOBIN 13.8 G/DL (11.5-16.0); MEAN PLATELET VOLUME 9.2 FL (7.4-10.4); RED CELL DISTRIBUTION WIDTH 14.5 % (10.0-14.5); WHITE BLOOD COUNT 10.6 10^3/uL (4.3-11.0)
--- OUTSIDE RECORDS SUMMARY | 2018-10-25 09:10 | XMS REPORT | Continuity of Care Document ---
Author Author [facility] Organization [facility] Address Unknown Phone Unavailable Allergies Active Description Code Type Severity Reaction Onset Reported/Identified Relationship to Patient Clinical Status Yes No Known Drug Allergies [id number] Drug Allergy Unknown N/A 01/21/2009 Yes cephalexin [id number] Drug Allergy Unknown N/A 10/02/2018 Yes sulfamethoxazole [id number] Drug Allergy Moderate rash, SOB 10/23/2018 Yes trimethoprim [id number] Drug Allergy Moderate rash, SOB 10/23/2018 Medications There is no data. 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 06/18/2012 Ot 786.50 CHEST PAIN NOS 06/18/2012 [...] 727.51 POPLITEAL SYNOVIAL CYST 11/29/2012 KIZZY RODRIGUEZ 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 Ot V43.65 KNEE JOINT REPLACEMENT STATUS 11/29/2012 KIZZY RODRIGUEZ 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 Ot V54.81 AFTERCARE FOLLOWING JOINT REPLACEMENT 11/29/2012 KIZZY RODRIGUEZ 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 Ot V57.1 PHYSICAL THERAPY NEC 07/12/2013 CLEOPATRA [...] OTHER EXTERNAL CAUSE STATUS 06/15/2014 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 FILTER TIP Ot E849.[address] NEC 06/15/2014 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 FILTER TIP Ot E888.9 FALL NOS 01/17/2015 ANAY DARNELL [...] 04/10/2015 Ot 791.9 04/10/2015 Ot V43.65 04/10/2015 MANN KINGSLEY, ANAY Ot V76.12 04/10/2015 MANN KINGSLEY ANAY Ot V76.12 04/10/2015 BAISCARLETT RASHAUN L 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 Ot 401.9 04/10/2015 BAIMA RASHAUN L 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 Ot 414.00 04/10/2015 BAIMA RASHAUN L 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 Ot 416.8 04/10/2015 BAIMA RASHAUN L 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 Ot 780.57 04/10/2015 MANN KINGSLEY ANAY Ot V76.12 04/10/2015 JACOBO VALENCIA MD Ot 530.81 04/10/2015 LISA OVALLE FACC, ALI FACP CCDS Ot 272.4 04/10/2015 LISA VOALLE FACC, ALI FACP CCDS Ot 278.00 04/10/2015 [...] MAMMO-MALIGN NEOPLASM OF BLA[place] 12/16/2015 RASHAUN HORN 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 Ot 401.9 HYPERTENSION NOS 12/16/2015 RASHAUN HORN 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 Ot 414.00 CORON ATHEROSCLER NOS TYPE VESSEL, NATIV 12/16/2015 RASHAUN HORN 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 Ot 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 HEART DIS NEC 12/16/2015 RASHAUN HORN 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 Ot 780.57 UNSPECIFIED SLEEP APNEA [...] OTH SCREEN MAMMO-MALIGN NEOPLASM OF [place]LA[place] 05/28/2016 BETHELEBENEZER PANTOJAHER Moreno 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 Ot 401.9 HYPERTENSION NOS 05/28/2016 BAIRASHAUN PANTOJA L 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 Ot 414.00 CORON ATHEROSCLER NOS TYPE VESSEL, NATIV 05/28/2016 BETHELRASHAUN PANTOJA L 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 Ot 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 HEART DIS NEC 05/28/2016 BAIRASHAUN PANTOJA L 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 Ot 780.57 UNSPECIFIED SLEEP APNEA 05/28/2016 ANAY DARNELL DO Ot V76.12 OTH SCREEN MAMMO-MALIGN NEOPLASM OF [place]LA[place] 05/28/2016 ANNIE OVALLE, JACOBO Ot 530.81 ESOPHAGEAL REFLUX 05/28/2016 LISA OVALLE FACC, ALI FACP CCDS Ot 272.4 HYPERLIPIDEMIA NEC/NOS 05/28/2016 LISA OVALLE FACC, ALI FACP CCDS Ot 278.00 OBESITY, NOS 05/28/2016 LISA OVALLE FACC, ALI FACP CCDS Ot 401.9 HYPERTENSION NOS 05/28/2016 LISA OVALLE [facility] CCDS Ot 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 HEART DIS NEC 05/28/2016 LISA OVALLE [facility] CCDS Ot 780.57 UNSPECIFIED SLEEP APNEA 05/28/2016 LISA OVALLE [facility], [facility] FACP CCDS Ot 790.29 OTHER ABNORMAL GLUCOSE 05/28/2016 ANAY DARNELL DO Ot Z12.31 ENCNTR SCREEN MAMMOGRAM FOR MALIGNANT NE 05/28/2016 JACOBO VALENCIA MD Ot K43.2 INCISIONAL HERNIA WITHOUT OBSTRUCTION OR 05/28/2016 JACOBO VALENCIA MD Ot Z01.818 ENCOUNTER FOR OTHER PREPROCEDURAL EXAMIN 05/28/2016 JACOBO VALENCIA MD, Ot Z11.2 ENCOUNTER FOR SCREENING FOR OTHER BACTER 05/29/2016 JACOBO VALENCIA MD, Ot K43.2 INCISIONAL HERNIA WITHOUT OBSTRUCTION OR 05/29/2016 JACOBO VALENCIA MD Ot Z01.818 ENCOUNTER FOR OTHER PREPROCEDURAL EXAMIN 05/29/2016 JACOBO VALENCIA MD Ot Z11.2 ENCOUNTER FOR [...] MAMMO-MALIGN NEOPLASM OF [place]LA[place] 06/04/2016 RASHAUN HORN 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 Ot 401.9 HYPERTENSION NOS 06/04/2016 RASHAUN HORN 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 Ot 414.00 CORON ATHEROSCLER NOS TYPE VESSEL, NATIV 06/04/2016 BETHELRASHAUN PANTOJA Josh 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 Ot 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 HEART DIS NEC 06/04/2016 BETHELRASHAUN PANTOJA 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 Ot 780.57 UNSPECIFIED SLEEP APNEA 06/04/2016 ANAY DARNELL DO Ot V76.12 OTH SCREEN MAMMO-MALIGN NEOPLASM OF [place] 06/04/2016 JACOBO VALENCIA MD Ot 530.81 ESOPHAGEAL REFLUX 06/04/2016 LISA OVALLE FACC, ALI FACP CCDS Ot 272.4 HYPERLIPIDEMIA NEC/NOS 06/04/2016 LISA OVALLE FACC, ALI FACP CCDS Ot 278.00 OBESITY, NOS 06/04/2016 LISA OVALLE FACC, ALI FACP CCDS Ot 401.9 HYPERTENSION NOS 06/04/2016 LISA OVALLE FACC, ALI FACP CCDS Ot 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 HEART DIS NEC 06/04/2016 LISA OVALLE FACC, ALI FACP CCDS Ot 780.57 UNSPECIFIED SLEEP APNEA 06/04/2016 LISA OVALLE FACFrancy, ALI FACP CCDS Ot 790.29 OTHER ABNORMAL [...] NEOPLASM OF [place]LA[place] 06/26/2016 BETHELRASHAUN PANTOJA Josh 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 Ot 401.9 HYPERTENSION NOS 06/26/2016 BAIRASHAUN PANTOJA Josh 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 Ot 414.00 CORON ATHEROSCLER NOS TYPE VESSEL, NATIV 06/26/2016 BETHELSCARLETT RASHAUN Josh 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 Ot 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 HEART DIS NEC 06/26/2016 BETHELRASHAUN PANTOJA 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 Ot 780.57 UNSPECIFIED SLEEP APNEA 06/26/2016 ANAY DARNELL DO Ot V76.12 OTH SCREEN MAMMO-MALIGN NEOPLASM OF [place]LA[place] 06/26/2016 ANNIE OVALLE, JACOBO Ot 530.81 ESOPHAGEAL REFLUX 06/26/2016 LISA OVALLE FACC, ALI FACP CCDS Ot 272.4 HYPERLIPIDEMIA NEC/NOS 06/26/2016 [...] OTH SCREEN MAMMO-MALIGN NEOPLASM OF [place]LA[place] 06/30/2016 RASHAUN HORN 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 Ot 401.9 HYPERTENSION NOS 06/30/2016 BAIRASHAUN PANTOJA 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 Ot 414.00 CORON ATHEROSCLER NOS TYPE VESSEL, NATIV 06/30/2016 RASHAUN HORN 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 Ot 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 HEART DIS NEC 06/30/2016 RASHAUN HORN 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 Ot 780.57 UNSPECIFIED SLEEP APNEA 06/30/2016 ANAY DARNELL DO Ot V76.12 OTH SCREEN MAMMO-MALIGN NEOPLASM OF [place] 06/30/2016 ANNIE OVALLE, JACOBO Ot 530.81 ESOPHAGEAL REFLUX 06/30/2016 LISA OVALLE FACC, QAMAR FACP CCDS Ot 272.4 HYPERLIPIDEMIA NEC/NOS 06/30/2016 LISA OVALLE FACC, QAMAR FACP CCDS Ot 278.00 OBESITY, NOS 06/30/2016 LISA OVALLE FACC, ALI FACP CCDS Ot 401.9 HYPERTENSION NOS 06/30/2016 LISA OVALLE FACC, ALI FACP CCDS Ot 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 HEART DIS NEC 06/30/2016 LISA OVALLE FACC, QAMAR FACP CCDS Ot 780.57 UNSPECIFIED SLEEP APNEA 06/30/2016 LISA OVALLE FACC, ALI FACP CCDS Ot 790.29 OTHER ABNORMAL GLUCOSE 06/30/2016 DARNELL ANAY Ot Z12.31 ENCNTR SCREEN MAMMOGRAM FOR MALIGNANT NE 06/30/2016 RASHAUN HORN 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 Ot R50.9 FEVER, UNSPECIFIED 07/23/2016 RASHAUN HORN 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 Ot R50.9 FEVER, UNSPECIFIED 11/23/2016 [...] MAMMO-MALIGN NEOPLASM OF [place]LA[place] 11/23/2016 RASHAUN HORN 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 Ot 401.9 HYPERTENSION NOS 11/23/2016 RASHAUN HORN 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 Ot 414.00 CORON ATHEROSCLER NOS TYPE VESSEL, NATIV 11/23/2016 RASHAUN HORN 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 Ot 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 HEART DIS NEC 11/23/2016 RASHAUN HORN 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 Ot 780.57 UNSPECIFIED SLEEP APNEA 11/23/2016 ANAY DARNELL DO Ot V76.12 OTH SCREEN MAMMO-MALIGN NEOPLASM OF [place]LA[place] 11/23/2016 JACOBO VALENCIA MD Ot 530.81 ESOPHAGEAL REFLUX 11/23/2016 LISA OVALLE FACC, ALI FACP CCDS Ot 272.4 HYPERLIPIDEMIA NEC/NOS 11/23/2016 LISA OVALLE FACC, ALI FACP CCDS Ot 278.00 OBESITY, NOS 11/23/2016 LISA OVALLE FACC, ALI FACP CCDS Ot 401.9 HYPERTENSION NOS 11/23/2016 LISA MARTE, QAMAR POST CCDS Ot 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 HEART DIS NEC 11/23/2016 LISA [facility]VALLE [facility], [facility] 780.57 UNSPECIFIED SLEEP APNEA 11/23/2016 LISA OVALLE FAC, QAMAR POST CCDS Ot 790.29 OTHER ABNORMAL GLUCOSE 11/23/2016 ANAY DARNELL DO Ot Z12.31 ENCNTR SCREEN MAMMOGRAM FOR MALIGNANT NE 11/23/2016 RASHAUN HORN Ot R50.9 FEVER, UNSPECIFIED 11/24/2016 JACOBO VALENCIA [...] SLEEP APNEA (ADULT) (PEDIATR 11/27/2016 JACOBO VALENCIA MD, Ot I10 ESSENTIAL (PRIMARY) HYPERTENSION 11/27/2016 JACOBO VALENCIA MD, Ot J45.909 UNSPECIFIED ASTHMA, UNCOMPLICATED 11/27/2016 JACOBO VALENCIA MD, Ot K57.30 DVRTCLOS OF LG INT W/O PERFORATION OR AB 11/27/2016 JACOBO VALENCIA MD, Ot K64.0 FIRST DEGREE HEMORRHOIDS 11/27/2016 JACOBO VALENCIA MD, Ot Z12.11 ENCOUNTER FOR SCREENING FOR MALIGNANT NE 11/27/2016 JACOBO VALENCIA MD, Ot Z68.41 BODY MASS INDEX (BMI) 40.0-44.9, ADULT 11/27/2016 JACOBO VALENCIA MD, Ot Z79.899 OTHER TRAINING GENERALIST (CURRENT) DRUG THERAPY 11/27/2016 JACOBO VALENCIA MD, Ot Z80.0 FAMILY HISTORY OF MALIGNANT NEOPLASM OF 11/27/2016 JACOBO VALENCIA MD, Ot Z86.010 PERSONAL HISTORY [...] 12/01/2016 JACOBO VALENCIA MD, Ot Z79.899 OTHER LONG-TERM (CURRENT) DRUG THERAPY 12/01/2016 JACOBO VALENCIA MD, [...] OTH SCREEN MAMMO-MALIGN NEOPLASM OF [place]LAINE 12/29/2016 BAIRASHAUN PANTOJA L 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 Ot 401.9 HYPERTENSION NOS 12/29/2016 BAIMARASHAUN L 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 Ot 414.00 CORON ATHEROSCLER NOS TYPE VESSEL, NATIV 12/29/2016 BAIRASHAUN PANTOJA L 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 Ot 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 HEART DIS NEC 12/29/2016 BAIRASHAUN PANTOJA L 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 Ot 780.57 UNSPECIFIED SLEEP APNEA [...] CCDS Ot 790.29 OTHER ABNORMAL GLUCOSE 12/29/2016 TABATHA DARNELL DOI Ot Z12.31 ENCNTR SCREEN MAMMOGRAM FOR MALIGNANT NE 12/29/2016 RASHAUN HORN JOSE L Ot R50.9 FEVER, UNSPECIFIED 12/29/2016 TABATHA DARNELL DOI Ot Z12.31 ENCNTR SCREEN MAMMOGRAM FOR MALIGNANT NE 12/29/2016 TABATHA DARNELL DOI Ot E66.01 MORBID (SEVERE) OBESITY DUE TO EXCESS CA 12/29/2016 TABATHA DARNELL DOI Ot F98.5 ADULT ONSET FLUENCY DISORDER 12/29/2016 MANN KINGSLEY ANAY Ot I10 ESSENTIAL (PRIMARY) HYPERTENSION 12/29/2016 TABATHA DARNELL DOI Ot J45.909 UNSPECIFIED ASTHMA, UNCOMPLICATED 12/29/2016 TABATHA DARNELL DOI Ot M17.0 BILATERAL PRIMARY OSTEOARTHRITIS OF KNEE 12/29/2016 TABATHA DARNELL DOI Ot N39.0 URINARY TRACT INFECTION, SITE NOT SPECIF 12/29/2016 TABATHA DARNELL DOI Ot R73.03 PREDIABETES 12/29/2016 TABATHA DARNELL DOI Ot Z68.41 BODY MASS INDEX (BMI) 40.0-44.9, ADULT 01/05/2017 TABATHA DARNELL DOI Ot Z12.31 ENCNTR SCREEN [...] CCDS Ot I25.10 ATHSCL HEART DISEASE OF [place] CORONARY 01/13/2017 LISA OVALLE FACC, QAMAR FACP CCDS Ot Z86.79 PERSONAL HISTORY OF OTHER DISEASES OF TH 01/13/2017 QAMAR GONZALEZ MD, FACC FACP CCDS Ot E78.4 OTHER HYPERLIPIDEMIA 01/13/2017 LISA OVALLE FACC, QAMAR MARTEP CCDS Ot G47.33 OBSTRUCTIVE SLEEP APNEA (ADULT) (PEDIATR 01/13/2017 LISA MD FACC, ALI FACP CCDS Ot I10 ESSENTIAL (PRIMARY) HYPERTENSION 01/13/2017 LISA OVALLE FACC, ALI FACP CCDS Ot I25.10 ATHSCL HEART DISEASE OF [place] CORONARY 01/13/2017 LISA OVALLE FACC, ALI FACP [...] CCDS Ot I25.10 ATHSCL HEART DISEASE OF [place] CORONARY 01/13/2017 LISA OVALLE FACC, ALI FACP [...] CCDS Ot I25.10 ATHSCL HEART DISEASE OF [place] CORONARY 01/13/2017 LISA OVALLE FACC, ALI FACP [...] CCDS Ot I25.10 ATHSCL HEART DISEASE OF [place] CORONARY 01/13/2017 LISA OVALLE FACC, ALI FACP CCDS Ot Z86.79 PERSONAL HISTORY OF OTHER DISEASES OF TH 01/21/2017 LISA OVALLE FACC, ALI FACP CCDS Ot E78.4 OTHER HYPERLIPIDEMIA 01/21/2017 LISA MD FACC, ALI FACP CCDS Ot G47.33 OBSTRUCTIVE SLEEP APNEA (ADULT) (PEDIATR 01/21/2017 LISA OVALLE FACC, ALI FACP CCDS Ot I10 ESSENTIAL (PRIMARY) HYPERTENSION 01/21/2017 LISA OVALLE FACC, ALI FACP CCDS Ot I25.10 ATHSCL HEART DISEASE OF [place] CORONARY 01/21/2017 LISA OVALLE FACC, ALI FACP CCDS Ot Z86.79 PERSONAL HISTORY OF OTHER DISEASES OF TH 02/08/2017 LISA OVALLE FACC, ALI FACP CCDS Ot E78.4 OTHER HYPERLIPIDEMIA 02/08/2017 LISA OVALLE FACC, ALI FACP CCDS Ot G47.33 OBSTRUCTIVE SLEEP APNEA (ADULT) (PEDIATR 02/08/2017 LISA OVALLE FACC, ALI FACP CCDS Ot I10 ESSENTIAL (PRIMARY) HYPERTENSION 02/08/2017 LISA OVALLE FACC, ALI FACP CCDS Ot I25.10 ATHSCL HEART DISEASE OF [place] CORONARY 02/08/2017 LISA OVALLE [facility], ALI FACP CCDS Ot Z86.79 PERSONAL HISTORY OF OTHER DISEASES OF TH 03/01/2017 LISA OVALLE [facility], ALI FACP CCDS Ot E78.4 OTHER HYPERLIPIDEMIA 03/01/2017 LISA OVALLE [facility], ALI FACP CCDS Ot G47.33 OBSTRUCTIVE SLEEP APNEA (ADULT) (PEDIATR 03/01/2017 LISA OVALLE [facility], ALI FACP CCDS Ot I10 ESSENTIAL (PRIMARY) HYPERTENSION 03/01/2017 LISA OVALLE [facility], ALI FACP CCDS Ot I25.10 ATHSCL HEART DISEASE OF [place] CORONARY 03/01/2017 LISA OVALLE [facility], ALI FACP CCDS Ot Z86.79 PERSONAL HISTORY OF OTHER DISEASES OF 03/11/2018 Ot 401.9 HYPERTENSION NOS 03/11/2018 Ot 578.1 BLOOD IN STOOL 03/11/2018 Ot 782.3 EDEMA 03/11/2018 Ot 791.9 ABN URINE FINDINGS NEC 03/11/2018 Ot V43.65 KNEE JOINT REPLACEMENT STATUS 03/11/2018 ANAY DARNELL DO Ot V76.12 OTH SCREEN MAMMO-MALIGN NEOPLASM OF [place]LA[place] 03/11/2018 ANAY DARNELL DO Ot V76.12 OTH SCREEN MAMMO-MALIGN NEOPLASM OF [place] 03/11/2018 RASHAUN HORN 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 Ot 401.9 HYPERTENSION NOS 03/11/2018 RASHAUN HORN 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 Ot 414.00 CORON ATHEROSCLER NOS TYPE VESSEL, NATIV 03/11/2018 RASHAUN HORN 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 Ot 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 HEART DIS NEC 03/11/2018 RASHAUN HORN 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 Ot 780.57 UNSPECIFIED SLEEP APNEA [...] Ot 780.57 UNSPECIFIED SLEEP APNEA 03/11/2018 LISA MARTEC, ALI FACP CCDS Ot 790.29 OTHER ABNORMAL GLUCOSE 03/11/2018 ANAY DARNELL DO Ot Z12.31 ENCNTR SCREEN MAMMOGRAM FOR MALIGNANT NE 03/11/2018 RASHAUN HORN 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 Ot R50.9 FEVER, UNSPECIFIED 03/11/2018 ANAY DARNELL DO Ot Z12.31 ENCNTR SCREEN MAMMOGRAM FOR MALIGNANT NE 03/11/2018 LISA OVALLE FACC, ALI FACP CCDS Ot E78.4 OTHER HYPERLIPIDEMIA 03/11/2018 LISA MARTEC, ALI FACP CCDS Ot G47.33 OBSTRUCTIVE SLEEP APNEA (ADULT) (PEDIATR 03/11/2018 LISA OVALLE FACC, ALI FACP CCDS Ot I10 ESSENTIAL (PRIMARY) HYPERTENSION 03/11/2018 LISA MARTEC, ALI FACP CCDS Ot I25.10 ATHSCL HEART DISEASE OF [place] CORONARY 03/11/2018 LISA OVALLE FACC, ALI FACP CCDS Ot Z86.79 PERSONAL HISTORY OF OTHER DISEASES OF TH 03/11/2018 ANAY DARNELL DO Ot Z12.31 ENCNTR SCREEN MAMMOGRAM FOR MALIGNANT NE 03/14/2018 ANAY DARNELL DO Ot Z12.31 ENCNTR SCREEN MAMMOGRAM FOR MALIGNANT NE 04/13/2018 ANAY DARNELL DO Ot Z12.31 ENCNTR SCREEN MAMMOGRAM FOR MALIGNANT NE 10/03/2018 ANAY DARNELL DO Ot E11.9 TYPE 2 DIABETES MELLITUS WITHOUT COMPLIC 10/03/2018 MANN KINGSLEY ANAY Ot E66.2 MORBID (SEVERE) OBESITY WITH ALVEOLAR HY 10/03/2018 TABATHA DARNELL DOI Ot E78.5 HYPERLIPIDEMIA, UNSPECIFIED 10/03/2018 MANN KINGSLEY ANAY Ot E83.42 HYPOMAGNESEMIA 10/03/2018 MANN KINGSLEY ANAY Ot F32.9 MAJOR DEPRESSIVE DISORDER, SINGLE EPISOD 10/03/2018 TABATHA DARNELL DOI Ot I08.1 RHEUMATIC DISORDERS OF BOTH MITRAL AND T 10/03/2018 MANN KINGSLEY ANAY Ot I10 ESSENTIAL (PRIMARY) HYPERTENSION 10/03/2018 MANN KINGSLEY ANAY Ot I25.10 ATHSCL HEART DISEASE OF [place] CORONARY 10/03/2018 MANN KINGSLEY ANAY Ot I27.20 PULMONARY HYPERTENSION, UNSPECIFIED 10/03/2018 MANN KINGSLEY ANAY Ot I45.10 UNSPECIFIED RIGHT BUNDLE-BRANCH BLOCK 10/03/2018 MANN KINGSLEY ANAY Ot I48.0 PAROXYSMAL ATRIAL FIBRILLATION 10/03/2018 ANAY DARNELL DO Ot J45.909 UNSPECIFIED ASTHMA, UNCOMPLICATED 10/03/2018 MANN KINGSLEY ANAY Ot Z68.41 BODY MASS INDEX (BMI) 40.0-44.9, ADULT 10/12/2018 MARI OVALLE, BROCK J Ot E11.9 TYPE 2 DIABETES MELLITUS WITHOUT COMPLIC 10/12/2018 MARI OVALLE, BROCK J Ot E78.00 PURE HYPERCHOLESTEROLEMIA, UNSPECIFIED 10/12/2018 MARI OVALLE, BROCK J Ot E86.0 DEHYDRATION 10/12/2018 BROCK GUERRA MD Ot F32.9 MAJOR DEPRESSIVE DISORDER, SINGLE EPISOD 10/12/2018 BROCK GUERRA MD J Ot G47.30 SLEEP APNEA, UNSPECIFIED 10/12/2018 BROCK GUERRA MD J Ot I10 ESSENTIAL (PRIMARY) HYPERTENSION 10/12/2018 BROCK GUERRA MD J Ot I48.0 PAROXYSMAL ATRIAL FIBRILLATION 10/12/2018 BROCK GUERRA MD J Ot J45.909 UNSPECIFIED ASTHMA, UNCOMPLICATED 10/12/2018 BROCK GUERRA MD Ot R00.0 TACHYCARDIA, UNSPECIFIED 10/12/2018 BROCK GUERRA MD Ot Z79.01 LONG-TERM (CURRENT) USE OF ANTICOAGULANT 10/12/2018 BROCK GUERRA MD Ot Z79.51 LONG-TERM (CURRENT) USE OF INHALED STERO 10/12/2018 BROCK GUERRA MD Ot Z79.82 TRAINING GENERALIST (CURRENT) USE OF ASPIRIN 10/12/2018 BROCK GUERRA MD Ot Z80.0 FAMILY HISTORY OF MALIGNANT NEOPLASM OF 10/12/2018 BROCK GUERRA MD Ot Z80.42 FAMILY HISTORY OF MALIGNANT NEOPLASM OF 10/12/2018 BROCK GUERRA MD Ot Z82.49 FAMILY HX OF ISCHEM HEART DIS AND OTH DI 10/12/2018 BROCK GUERRA MD Ot Z87.19 PERSONAL HISTORY [...] UNSPECIFIED 10/18/2018 FARHEEN FOY MD Ot Z79.01 LONG-TERM (CURRENT) USE OF ANTICOAGULANT 10/18/2018 FARHEEN FOY MD, Ot Z79.51 LONG-TERM (CURRENT) USE OF INHALED STERO 10/18/2018 FARHEEN FOY MD Ot Z79.82 LONG-TERM (CURRENT) USE OF ASPIRIN 10/18/2018 FARHEEN FOY MD, Ot Z80.0 FAMILY HISTORY OF MALIGNANT NEOPLASM OF 10/18/2018 FARHEEN FOY MD Ot Z80.42 FAMILY HISTORY OF MALIGNANT NEOPLASM OF 10/18/2018 FARHEEN FOY MD, Ot Z80.8 FAMILY HISTORY OF MALIGNANT NEOPLASM OF 10/18/2018 FARHEEN FOY MD, Ot Z82.49 FAMILY HX OF ISCHEM HEART DIS AND OTH DI 10/18/2018 FARHEEN FOY MD Ot Z87.19 PERSONAL HISTORY OF OTHER [...] Ot R00.0 TACHYCARDIA, UNSPECIFIED 10/19/2018 FARHEEN FOY MD, Ot Z79.01 LONG-TERM (CURRENT) USE OF ANTICOAGULANT 10/19/2018 FARHEEN FOY MD, Ot Z79.51 LONG-TERM (CURRENT) USE OF INHALED STERO 10/19/2018 FARHEEN FOY MD, Ot Z79.82 TRAINING GENERALIST (CURRENT) USE OF ASPIRIN 10/19/2018 FARHEEN FOY MD, Ot Z80.0 FAMILY HISTORY OF MALIGNANT NEOPLASM OF 10/19/2018 FARHEEN FOY MD, Ot Z80.42 FAMILY HISTORY OF MALIGNANT NEOPLASM OF 10/19/2018 FARHEEN FOY MD, Ot Z80.8 FAMILY HISTORY OF MALIGNANT NEOPLASM OF 10/19/2018 FARHEEN FOY MD, Ot Z82.49 FAMILY HX OF ISCHEM HEART DIS AND OTH DI 10/19/2018 FARHEEN FOY MD Ot Z87.19 PERSONAL HISTORY OF OTHER DISEASES OF TH 10/19/2018 FARHEEN FOY MD, Ot Z87.440 PERSONAL HISTORY OF [...] PALPITATIONS 10/21/2018 BROCK GUERRA MD Ot Z79.82 TRAINING GENERALIST (CURRENT) USE OF ASPIRIN 10/21/2018 BROCK GUERRA [...] Z96.652 PRESENCE OF LEFT ARTIFICIAL KNEE JOINT 10/23/2018 ANAY DARNELL DO Ot V76.12 OTH SCREEN MAMMO-MALIGN NEOPLASM OF [place]LA[place] 10/23/2018 RASHAUN HORN 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 Ot 401.9 HYPERTENSION NOS 10/23/2018 RASHAUN HORN 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 Ot 414.00 CORON ATHEROSCLER NOS TYPE VESSEL, NATIV 10/23/2018 RASHAUN HRON 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 Ot 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 HEART DIS NEC 10/23/2018 RASHAUN HORN 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 Ot 780.57 UNSPECIFIED SLEEP APNEA 10/23/2018 MANN KINGSLEY ANAY Ot V76.12 OTH SCREEN MAMMO-MALIGN NEOPLASM OF [place] 10/23/2018 ANNIE OVALLE, JACOBO Ot 530.81 ESOPHAGEAL REFLUX 10/23/2018 LISA OVALLE FACC, ALI FACP CCDS Ot 272.4 HYPERLIPIDEMIA NEC/NOS 10/23/2018 LISA OVALLE [facility], ALI FAC CCDS Ot 278.00 OBESITY, NOS 10/23/2018 LISA OVALLE FAC, ALI FACP CCDS Ot 401.9 HYPERTENSION NOS 10/23/2018 LISA OVALLE FAC, ALI FACP CCDS Ot 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 HEART DIS NEC 10/23/2018 LISA OVALLE FAC, ALI FACP CCDS Ot 780.57 UNSPECIFIED SLEEP APNEA 10/23/2018 LISA OVALLE [facility], ALI FACP CCDS Ot 790.29 OTHER ABNORMAL GLUCOSE 10/23/2018 ANAY DARNELL DO Ot Z12.31 ENCNTR SCREEN MAMMOGRAM FOR MALIGNANT NE 10/23/2018 RASHAUN HORN Ot R50.9 FEVER, UNSPECIFIED Procedures Code Description Performed By Performed On [...] culture - 06/26/16 15:45 Bacterial urine culture [id number] NRG COLONY COUNT <10,000 NRG FTX;REPORTABLE (AND [...] culture - 12/29/16 01:20 Bacterial urine culture [id number] NRG COLONY COUNT 10,000/ML - 100,000/ML NRG [...] susceptibility test by minimum inhibitory concentration - [facility] Bacterial susceptibility panel - 12/29/16 01:20 Gentamicin [...] culture - 10/09/18 22:20 Bacterial urine culture [id number] NRG COLONY COUNT 50,000 CFU/ML NRG FTX;REPORTABLE [...] i.cardiac measurement (mass/volume) < ng/ mL <0.028 Complete blood count (CBC) with automated white blood cell (WBC) differential - 10/23/18 12:18 Blood leukocytes automated count (number/volume) 6.9 10*3/uL 4.3-11.0 Blood erythrocytes automated count (number/volume) 4.79 10*6/uL 4.35-5.85 Venous blood hemoglobin measurement (mass/volume) 13.8 g/dL 11.5-16.0 Blood hematocrit (volume fraction) 42 % 35-52 Automated erythrocyte mean corpuscular volume 87 [foz_us] 80-99 Automated erythrocyte mean corpuscular hemoglobin (mass per erythrocyte) 29 pg 25-34 Automated erythrocyte mean corpuscular hemoglobin concentration measurement ( mass/volume) 33 g/dL 32-36 Automated erythrocyte distribution width ratio 14.5 % 10.0-14.5 Automated blood platelet count (count/volume) 218 10*3/uL 130-400 Automated blood platelet mean volume measurement 9.8 [foz_us] 7.4-10.4 Automated blood neutrophils/100 leukocytes 77 % 42-75 Automated blood lymphocytes/100 leukocytes 13 % 12-44 Blood monocytes/100 leukocytes 8 % 0-12 Automated blood eosinophils/100 leukocytes 1 % 0-10 Automated blood basophils/100 leukocytes 0 % 0-10 Blood neutrophils automated count (number/volume) 5.3 10*3 1.8-7.8 Blood lymphocytes automated count (number/volume) 0.9 10*3 1.0-4.0 Blood monocytes automated count (number/volume) 0.6 10*3 0.0-1.0 Automated eosinophil count 0.1 10*3/uL 0.0-0.3 Automated blood basophil count (count/volume) 0.0 10*3/uL 0.0-0.1 Blood lactic acid measurement (moles/volume) - 10/23/18 12:18 Blood lactic acid measurement (moles/volume) 1.14 mmol/L 0.50-2.00 PT panel in platelet poor plasma by coagulation assay - 10/23/18 12:18 Prothrombin time (PT) in platelet poor plasma by coagulation assay 14.7 s 12.2-14.7 INR in platelet poor plasma or blood by coagulation assay 1.1 0.8-1.4 Activated partial thromboplastin time (aPTT) in platelet poor plasma bycoagulation assay - 10/23/18 12:18 Activated partial thromboplastin time (aPTT) in platelet poor plasma bycoagulation assay 33 s 24-35 Comprehensive metabolic panel - 10/23/18 12:18 Serum or plasma sodium measurement (moles/volume) 143 mmol/L 135-145 Serum or plasma potassium measurement (moles/volume) 3.6 mmol/L 3.6-5.0 Serum or plasma chloride measurement (moles/volume) 107 mmol/L 98-107 Carbon dioxide 22 mmol/L 21-32 Serum or plasma anion gap determination (moles/volume) 14 mmol/L 5-14 Serum or plasma urea nitrogen measurement (mass/volume) 16 mg/dL 7-18 Serum or plasma creatinine measurement (mass/volume) 0.84 mg/dL 0.60-1.30 Serum or plasma urea nitrogen/creatinine mass ratio 19 NRG Serum or plasma creatinine measurement with calculation of estimated glomerular filtration rate > NRG Serum or plasma glucose measurement (mass/volume) 147 mg/dL 70-105 Serum or plasma calcium measurement (mass/volume) 9.2 mg/dL 8.5-10.1 Serum or plasma total bilirubin measurement (mass/volume) 0.7 mg/dL 0.1-1.0 Serum or plasma alkaline phosphatase measurement (enzymatic activity/volume) 121 U/L 40-136 Serum or plasma aspartate aminotransferase measurement (enzymatic activity/ volume) 24 U/L 5-34 Serum or plasma alanine aminotransferase measurement (enzymatic activity/volume ) 31 U/L 0-55 Serum or plasma protein measurement (mass/volume) 7.0 g/dL 6.4-8.2 Serum or plasma albumin measurement (mass/volume) 4.1 g/dL 3.2-4.5 CALCIUM CORRECTED 9.1 mg/dL 8.5-10.1 Serum or plasma troponin i.cardiac measurement (mass/volume) - 10/23/18 12:18 Serum or plasma troponin i.cardiac measurement (mass/volume) < ng/ mL <0.028 Bacterial blood culture - 10/23/18 12:22 Bacterial blood culture [facility] Influenza virus A and B antigen detection - 10/23/18 12:24 FLU RESULT NEGATIVE FOR INFLUENZA A AND B ANTIGENS BY IA NRG Complete urinalysis with reflex to culture - 10/23/18 13:45 Urine color determination YELLOW NRG Urine clarity determination CLEAR NRG Urine pH measurement by test strip 6 5-9 Specific gravity of urine by test strip 1.015 1.016- 1.022 Urine protein assay by test strip, semi-quantitative 1+ NEGATIVE Urine glucose detection by automated test strip NEGATIVE NEGATIVE Erythrocytes detection in urine sediment by light microscopy 2+ NEGATIVE Urine ketones detection by automated test strip NEGATIVE NEGATIVE Urine nitrite detection by test strip NEGATIVE NEGATIVE Urine total bilirubin detection by test strip NEGATIVE NEGATIVE Urine urobilinogen measurement by automated test strip (mass/volume) NORMAL NORMAL Urine leukocyte esterase detection by dipstick NEGATIVE NEGATIVE Automated urine sediment erythrocyte count by microscopy (number/high power field) RARE NRG Automated urine sediment leukocyte count by microscopy (number/high power field ) RARE NRG Bacteria detection in urine sediment by light microscopy TRACE NRG Squamous epithelial cells detection in urine sediment by light microscopy 10-25 NRG Crystals detection in urine sediment by light microscopy NONE NRG Casts detection in urine sediment by light microscopy NONE NRG Mucus detection in urine sediment by light microscopy NEGATIVE NRG Complete urinalysis with reflex to culture YES NRG Bacterial urine culture - 10/23/18 13:45 Bacterial urine culture 3 OR MORE NRG COLONY COUNT 10,000 CFU/ML NRG FTX;REPORTABLE SUGGESTING PROBABLE COLLECTION NRG FREE TEXT ENTRY 2 CONTAMINATION WITH SKIN MAME NRG FREE TEXT ENTRY 3 NO SUSCEPTIBILITY PERFORMED NRG Bacterial blood culture - 10/23/18 13:45 Bacterial blood culture NG NRG Encounters ACCT No. Visit Date/Time Discharge Status Pt. Type Provider Facility Loc./Unit Complaint [id number] 10/23/2018 11:58:00 10/23/2018 14:50:00 DIS Emergency SANTASARANYA Via [facility] ER SOA,POSSIBLE ALLERGIC RXN [id number] 10/18/2018 10:37:00 10/18/2018 12:10:00 DIS Outpatient BROCK GUERRA MD [facility] ER TACHYCARDIA [id number] 10/16/2018 13:09:00 10/16/2018 16:51:00 DIS Outpatient FARHEEN FOY MD [facility] ER HR OVER 100 FOR 4 HRS [id number] 10/09/2018 21:40:00 10/10/2018 00:28:00 DIS Outpatient MARI OVALLE, BROCK Vo [facility] ER HEART RATE RACING [id number] 10/02/2018 22:15:00 10/03/2018 15:42:00 DIS Outpatient DARNELL DO, ANAY [facility] ICU A-FIB W/ RVR [id number] 03/11/2018 08:17:00 03/11/2018 23:59:59 CLS Outpatient DARNELL DO, ANAY [facility] RAD Z12.31 SCREENING MAMMO [id number] 01/06/2017 09:01:00 01/06/2017 23:59:59 CLS Outpatient LISA OVALLE FACCQAMAR FACP CCDS [facility] CARD CAD I25.10 [id number] 12/29/2016 02:40:00 12/29/2016 17:25:00 DIS Inpatient DARNELL DO, ANAY [facility] 4TH DYSARTHRIA,UTI [id number] 12/22/2016 09:22:00 12/22/2016 23:59:59 CLS Outpatient DARNELL DO, ANAY [facility] RAD Z12.31 [id number] 11/27/2016 11:29:00 11/27/2016 13:31:00 DIS Outpatient JACOBO VALENCIA MD [facility] ENDO HISTORY OF POLYPS [id number] 11/24/2016 05:46:00 11/24/2016 14:11:00 DIS Outpatient JACOBO VALENCIA MD [facility] PREOP HISTORY OF POLYPS [id number] 06/26/2016 15:31:00 06/26/2016 23:59:59 CLS Outpatient RASHAUN HORN [facility] LAB FEVER,LOW GRADE [id number] 06/04/2016 07:00:00 06/05/2016 10:45:00 DIS Outpatient JACOBO VALENCIA MD [facility] INCISIONAL HERNIA [id number] 05/28/2016 13:11:00 05/28/2016 13:50:00 DIS Outpatient JACOBO VALENCIA MD [facility] PREOP INCISIONAL HERNIA [id number] 12/16/2015 09:30:00 12/16/2015 23:59:59 CLS Outpatient DARNELL DO, ANAY [facility] RAD SCREENING [id number] 04/10/2015 02:40:00 04/10/2015 04:53:00 DIS Emergency RNEÉ KATE MD [facility] ER POSS KIDNEY INFECTION [id number] 01/17/2015 07:48:00 01/17/2015 23:59:59 CLS Outpatient LISA OVALLE FACC, QAMAR POST CCDS [facility] CARD HTN,HLP, [id number] 01/09/2015 08:17:00 01/09/2015 23:59:59 CLS Outpatient JACOBO VALENCIA MD [facility] RAD REFLUX [id number] 12/13/2014 10:49:00 12/13/2014 23:59:59 CLS Outpatient DARNELL DO, ANAY [facility] RAD SCREENING [id number] 06/15/2014 12:07:00 06/15/2014 14:06:00 DIS Emergency 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 TIP [facility] ER FALL [id number] 03/05/2014 13:48:00 03/05/2014 23:59:59 CLS Outpatient RASHAUN HORN [facility] CARD CAD HTN HYPLIPIDEMIA [id number] 12/12/2013 11:16:00 12/12/2013 23:59:59 CLS Outpatient DARNELL DO, ANAY [facility] RAD ROUTINE [id number] 06/21/2013 09:36:00 07/12/2013 14:38:00 DIS Outpatient CLEOPATRA TARIQ MD [facility] REHAB TOTAL HIP REPLACEMENT [id number] 12/06/2012 09:11:00 12/06/2012 23:59:59 CLS Outpatient DARNELL DO, ANAY [facility] RAD SCREENING [id number] 11/25/2012 12:58:00 11/29/2012 08:52:00 DIS Outpatient KIZZY RODRIGUEZ 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 [facility] REHAB S/P L TKR [id number] 10/25/2018 10:00:00 GALILEA GONZALEZ MD FACC, QAMAR POST CCDS [facility] CATH A-FIB,CAD,CAROTID ARTERIAL DISEASE,HTN [id number] 09/23/2012 11:20:00 Document Registration [id number] 09/14/2012 06:12:00 Document Registration [id number] 09/08/2012 09:54:00 Document Registration [id number] 09/01/2012 13:14:00 Document Registration [id number] 07/05/2012 14:15:00 Document Registration [id number] 06/18/2012 12:31:00 Document Registration [id number] 06/16/2012 21:37:00 Document Registration [id number] 04/10/2012 08:43:00 Document Registration [id number] 01/13/2012 10:41:00 Document Registration [id number] 11/04/2011 09:26:00 Document Registration [id number] 09/04/2011 13:44:00 Document Registration [id number] 05/14/2011 15:42:00 Document Registration [id number] 05/12/2011 13:31:00 Document Registration [id number] 03/09/2011 06:27:00 Document Registration [id number] 03/03/2011 08:07:00 Document Registration [id number] 01/27/2011 10:49:00 Document Registration [id number] 01/23/2011 07:28:00 Document Registration [id number] 01/19/2011 08:56:00 Document Registration [id number] 01/16/2011 21:07:00 Document Registration [id number] 08/22/2010 12:50:00 Document Registration [id number] 08/14/2010 05:45:00 Document Registration [id number] 08/07/2010 15:18:00 Document Registration [id number] 07/29/2010 07:52:00 Document Registration [id number] 01/15/2010 12:57:00 Document Registration [id number] 12/26/2009 08:42:00 Document Registration [id number] 04/10/2015 09:00:09 ACT Document Registration
[2018-10-25 09:14] LABS: INR 1.2 (0.8-1.4); PROTHROMBIN TIME PATIENT 15.6 SEC (12.2-14.7)
[2018-10-25 09:21] LABS: ALANINE AMINOTRANSFERASE 51 U/L (0-55); ALBUMIN 3.9 GM/DL (3.2-4.5); ALKALINE PHOSPHATASE 111 U/L (40-136); BILIRUBIN,TOTAL 0.7 MG/DL (0.1-1.0); BUN/CREATININE RATIO 30; CALCIUM 8.9 MG/DL (8.5-10.1); CARBON DIOXIDE 22 MMOL/L (21-32); CHLORIDE 109 MMOL/L (98-107); CHOLESTEROL 142 MG/DL (< 200); GFR ESTIMATED > 60; GLUCOSE 94 MG/DL (70-105); HDL CHOLESTEROL 56 MG/DL (40-60); POTASSIUM 3.8 MMOL/L (3.6-5.0); SODIUM 143 MMOL/L (135-145); TOTAL PROTEIN 6.6 GM/DL (6.4-8.2); TRIGLYCERIDES 99 MG/DL (<150); VLDL CHOLESTEROL 20 MG/DL (5-40)
--- NOTE | 2018-10-25 09:59 | NUR ---
Received medication list and looked at patient bottles
--- NOTE | 2018-10-25 10:56 | Anesthesia-Procedure Note ---
Procedures/Interventions Procedure Start/Stop/Diagnosis Date of Procedure: Oct 25, 2018 Start Time: 09:46 Referring Physician: Sav Preprocedural Diagnosis: A Fib Brief History [id number] Called to lab assistant to provide sedation for cardioversion. The patient 's history was reviewed directly with her, as well as allergies discussed. O2/ NC. The patient was given 70mg total of Propofol IV total for the procedure and tolerated it well. She was awake and denied complaints after the procedure. I reported off to Ronit Mandel RN. Stop Time: 10:01 SHYAM LUTZ CRNA Oct 25, 2018 10:56
--- NOTE | 2018-10-25 14:43 | OPERATIVE REPORT ---
DATE OF SERVICE: 10/25/2018 PREOPERATIVE DIAGNOSIS: Atrial flutter. POSTOPERATIVE DIAGNOSIS: Sinus rhythm. PROCEDURE PERFORMED: External electrical cardioversion. DESCRIPTION OF PROCEDURE: The patient is a 73-year-old lady, who has paroxysmal atrial flutter. She has been fully anticoagulated with Eliquis for more than 3 weeks without any interruption. She comes in for electrical cardioversion. She provided informed consent. The nurse top flavor attendant delivered short acting anesthesia under, which external electrical cardioversion was carried out. We used 50 joules of synchronized shock, which restored sinus rhythm. She tolerated the procedure well. Job ID: [id number] DocumentID: [id number] Dictated Date: 10/25/2018 10:06:04 Pharmacognosist Date: 10/25/2018 14:42:48 Dictated By: QAMAR GONZALEZ MD, MA, FACP, FACC,
== END | disposition home or self-care (01) ==
LOC: CATH 08:18
PROVIDERS: ATTEND Internal Medicine Cardiovascular Disease
DX: I48.3 Typical atrial flutter (principal); I25.10 Atherosclerotic heart disease of native coronary artery without angina pectoris; I10 Essential (primary) hypertension; E78.5 Hyperlipidemia, unspecified; I27.20 Pulmonary hypertension, unspecified; G47.30 Sleep apnea, unspecified; R73.02 Impaired glucose tolerance (oral); I45.10 Unspecified right bundle-branch block; E66.9 Obesity, unspecified; Z68.41 Body mass index [BMI] 40.0-44.9, adult; Z79.01 Long term (current) use of anticoagulants; Z79.82 Long term (current) use of aspirin; Z79.899 Other long term (current) drug therapy
CPT/HCPCS: 36415; 80053; 80061; 85027; 85610; 85730; 87081; 92960; 93005

== ENCOUNTER 2018-10-28 16:10 | Inpatient (IN) | payer MEDICARE | END 2018-11-01 14:20 | disposition other institution (70) | LOC: 4TH 10-29 17:33 → ICU 16:10 | DX: J45.901 Unspecified asthma with (acute) exacerbation (principal); I48.0 Paroxysmal atrial fibrillation; Z68.41 Body mass index [BMI] 40.0-44.9, adult; I48.3 Typical atrial flutter; E66.2 Morbid (severe) obesity with alveolar hypoventilation; I25.10 Atherosclerotic heart disease of native coronary artery without angina pectoris; E78.5 Hyperlipidemia, unspecified; E74.39 Other disorders of intestinal carbohydrate absorption; I10 Essential (primary) hypertension; I08.1 Rheumatic disorders of both mitral and tricuspid valves; I27.29 Other secondary pulmonary hypertension; N32.81 Overactive bladder; R32 Unspecified urinary incontinence; E11.9 Type 2 diabetes mellitus without complications; F41.9 Anxiety disorder, unspecified; F32.9 Major depressive disorder, single episode, unspecified; F51.01 Primary insomnia; K21.9 Gastro-esophageal reflux disease without esophagitis; M19.91 Primary osteoarthritis, unspecified site; I45.10 Unspecified right bundle-branch block; Z79.01 Long term (current) use of anticoagulants; Z87.440 Personal history of urinary (tract) infections; Z88.2 Allergy status to sulfonamides; Z96.641 Presence of right artificial hip joint; Z96.652 Presence of left artificial knee joint ==

== ENCOUNTER → 2018-11-25 | Outpatient (CLI) | payer MEDICARE ==
[~2018-11-25] MED LIST changes: -MIDAZOLAM 2 MG/2 ML (VERSED) VIAL ONE; -NS IV 1000 ML 1,000 ML IV SCH; -NS IV 1000 ML 1,000 ML ONE; +PRED10TA22 PO; -proPOfol 200 MG/20 ML (DIPRIVAN) VIAL IV ONE
--- NOTE | 2018-11-25 11:55 | Diagnostic Imaging Report ---
PROCEDURE: CT head without contrast. TECHNIQUE: Multiple contiguous axial images were obtained through the brain without the use of intravenous contrast. Auto Exposure Controls were utilized during the CT exam to meet ALARA standards for radiation dose reduction. INDICATION: Hypertension FINDINGS: There is no intracranial hemorrhage, hydrocephalus, edema, mass, mass effect or evidence for elevated intracranial pressures. The orbits and sinuses appear normal at CT. There has been no change from prior performed 12/29/2016. IMPRESSION: Stable unremarkable CT head Dictated by: Dictated on workstation # [id number]
== END ==
LOC: RAD 11:18
PROVIDERS: ATTEND Nurse Practitioner Family
DX: I11.0 Hypertensive heart disease with heart failure (principal); I50.9 Heart failure, unspecified; E78.00 Pure hypercholesterolemia, unspecified; G47.30 Sleep apnea, unspecified; E66.9 Obesity, unspecified; I48.91 Unspecified atrial fibrillation; H11.33 Conjunctival hemorrhage, bilateral; I99.8 Other disorder of circulatory system; R23.3 Spontaneous ecchymoses; R51 Headache
CPT/HCPCS: 70450

== ENCOUNTER → 2018-12-01 | Outpatient (CLI) | payer MEDICARE ==
[2018-12-01 17:20] LABS: HEMOGLOBIN 12.9 G/DL (11.5-16.0); MEAN PLATELET VOLUME 8.6 FL (7.4-10.4); RED CELL DISTRIBUTION WIDTH 14.9 % (10.0-14.5); WHITE BLOOD COUNT 9.4 10^3/uL (4.3-11.0)
--- NOTE | 2018-12-01 17:31 | Diagnostic Imaging Report ---
INDICATION: Dyspnea. COMPARISON: October 28, 2018. TECHNIQUE: Single radiograph of the chest dated December 01, 2018. FINDINGS: The cardiac silhouette is mildly enlarged, though stable. Mild central pulmonary vascular congestion. The lungs are clear of focal pulmonary opacity. No pleural effusion. No pneumothorax. No acute osseous abnormality. IMPRESSION: Borderline cardiomegaly with mild central pulmonary vascular congestion without significant interstitial edema or pleural effusion. Dictated by: Dictated on workstation # [id number]
[2018-12-01 17:42] LABS: ALANINE AMINOTRANSFERASE 18 U/L (0-55); ALBUMIN 4.1 GM/DL (3.2-4.5); ALKALINE PHOSPHATASE 96 U/L (40-136); BUN/CREATININE RATIO 16; CALCIUM 9.2 MG/DL (8.5-10.1); CARBON DIOXIDE 23 MMOL/L (21-32); CHLORIDE 109 MMOL/L (98-107); CREATININE SERUM 0.73 MG/DL (0.60-1.30); GFR ESTIMATED > 60; GLUCOSE 99 MG/DL (70-105); POTASSIUM 3.9 MMOL/L (3.6-5.0); SODIUM 140 MMOL/L (135-145); TOTAL PROTEIN 6.5 GM/DL (6.4-8.2)
== END ==
LOC: RAD 16:10
PROVIDERS: ATTEND Internal Medicine
DX: I51.7 Cardiomegaly (principal); E87.6 Hypokalemia; N28.9 Disorder of kidney and ureter, unspecified; R09.89 Other specified symptoms and signs involving the circulatory and respiratory systems; R06.00 Dyspnea, unspecified
CPT/HCPCS: 36415; 71045; 80053; 83880; 85027; 85652

== ENCOUNTER 2018-12-15 13:55 | Inpatient (IN) | payer MEDICARE ==
[~2018-12-15] VITALS: Ht 170.2 cm; Wt 127.9 kg
[~2018-12-15 13:55] MED LIST changes: -TRAZ-189 PO; +TRAZ-222 PO
[2018-12-15] MEDS ORDERED: KCL 20 MEQ TAB (K-DUR) PO NR ×2 (14:30→19:15)
[2018-12-15] MEDS ORDERED: FUROSEMIDE 40 MG/4 ML INJ (LASIX) IVP NR (14:30)
[2018-12-15] MEDS ORDERED: KCL 20 MEQ TAB (K-DUR) PO ONE (14:34)
[2018-12-15] MEDS ORDERED: FUROSEMIDE 40 MG/4 ML INJ (LASIX) ONE (14:34)
[2018-12-15 14:40] VITALS: BP 161/82
[2018-12-15] MEDS ORDERED: CATHETER FLUSH 10 ML SYR IV PRN ×2 (14:45→16:45)
[2018-12-15 15:29] LABS: BASOPHILS % (AUTO) 1 % (0-10); EOSINOPHILS % (AUTO) 0 % (0-10); HEMATOCRIT 39 % (35-52); HEMOGLOBIN 12.9 G/DL (11.5-16.0); LYMPHOCYTES # (AUTO) 1.7 X 10^3 (1.0-4.0); LYMPHOCYTES % (AUTO) 20 % (12-44); MEAN CORPUSCULAR HEMOGLOBIN 28 PG (25-34); MEAN CORPUSCULAR HGB CONC 33 G/DL (32-36); MEAN CORPUSCULAR VOLUME 85 FL (80-99); MONOCYTES # (AUTO) 0.6 X 10^3 (0.0-1.0); MONOCYTES % (AUTO) 7 % (0-12); NEUTROPHILS # (AUTO) 6.3 X 10^3 (1.8-7.8); NEUTROPHILS % (AUTO) 73 % (42-75); PLATELET COUNT 224 10^3/uL (130-400); RED CELL DISTRIBUTION WIDTH 15.4 % (10.0-14.5); WHITE BLOOD COUNT 8.6 10^3/uL (4.3-11.0)
[2018-12-15] MEDS ORDERED: BUME1TAB4 PO (15:31)
[2018-12-15] MEDS ORDERED: DOXA2TAB2 PO (15:31)
[2018-12-15] MEDS ORDERED: RT-ALBUINH IH (15:31)
[2018-12-15] MEDS ORDERED: ALBU2.5V4 NEB (15:31)
[2018-12-15] MEDS ORDERED: FLEC100T PO (15:31)
[2018-12-15] MEDS ORDERED: POTA10TA36 PO (15:31)
[2018-12-15] MEDS ORDERED: DILT120C85 PO (15:31)
[2018-12-15] MEDS ORDERED: DILT240C87 PO (15:31)
--- NOTE | 2018-12-15 15:33 | Consultation-Cardiology ---
HPI-Cardiology Cardiology Consultation: Date of Consultation 12/15/18 Time Seen by a Provider: 15:45 Date of Admission 12-15-18 Attending Physician Breanna Darnell DO Admitting Physician Breanna Darnell DO Consulting Physician Елена Ang MD HPI: Chief Complaint: Dyspnea Ms. Estevez is a 73 year old female direct admitted from Dr. Darnell's office (her PCP) d/t progressive exertional dyspnea. She reports she feels she has had abdominal distension and bilat LE swelling which has been progressive. She states she felt as though she was in a-fib Mother's day, describing a feeling of palpitations which lasted for approx less than 30 minutes and resolved on its own. She denies any c/o CP, syncope or near syncope. She reports she has been compliant with her medications. She states her PCP has increased her diuretic r egimen, but feels this has not helped her shortness of breath. Review of Systems-Cardiology Review of Systems Constitutional: No chills, No fever; malaise Eyes: No vision change Ears/Nose/Throat: No epistaxis, No recent hearing loss Respiratory: As described under HPI Cardiovascular: As described under HPI Gastrointestinal: No constipation, No diarrhea, No nausea, No vomiting Genitourinary: No dysuria, No hematuria Musculoskeletal: no symptoms reported Skin: No rash, No ulcerations Psychiatric/Neurological: No anxiety, No depression, No seizure, No focal weakness, No syncope Hematologic: No bleeding abnormalities HGF-Ljfzww-Aperxs Hx Patient Social History Alcohol Use: Denies Use Recreational Drug Use: No 2nd Hand Smoke Exposure: No Physical Abuse Screen: No Sexual Abuse: No Immunizations Up To Date Tetanus Booster (TDap): Less than 5yrs Date of Pneumonia Vaccine: May 04, 2017 Date of Influenza Vaccine: May 04, 2018 Past Medical History PMH As described under Assessment. Family Medical History Family Medical History: She reports her mother and father both had CAD and HTN. Family History: Arthritis 19 MOTHER Cataracts 19 FATHER 19 MOTHER Colon cancer 19 FATHER Deafness or hearing loss 19 FATHER Dementia 19 FATHER FH: macular degeneration 19 MOTHER FH: prostate cancer 19 FATHER FH: skin cancer 19 FATHER Gout 19 MOTHER Hypertension 19 FATHER 19 MOTHER Myocardial infarction 19 FATHER 19 MOTHER Allergies and Home Medications Allergies Coded Allergies: sulfamethoxazole (Verified Allergy, Intermediate, rash, SOB, 10/23/18) trimethoprim (Verified Allergy, Intermediate, rash, SOB, 10/23/18) cephalexin (Verified Allergy, Unknown, 10/02/18) Home Medications Albuterol Sulfate 1 Puff Puff, 2 PUFF IH Q4H PRN for SHORTNESS OF BREATH, (Reported) 1 PUFF = 90 MCG Albuterol Sulfate 2.5 Mg/3 Ml Vial.neb, 2.5 MG NEB Q4H PRN for SHORTNESS OF BREATH, (Reported) Apixaban 5 Mg Tablet, 5 MG PO BID, (Reported) Atorvastatin Calcium 20 Mg Tablet, 20 MG PO HS, (Reported) Bumetanide 1 Mg Tablet, 1 MG PO Q48H, (Reported) Cholecalciferol 5,000 Unit Capsule, 5,000 UNIT PO DAILY, (Reported) Diltiazem HCl 240 Mg Capsule.er, 240 MG PO DAILY, (Reported) Diltiazem HCl 120 Mg Capsule.er, 120 MG PO HS, (Reported) Doxazosin Mesylate 2 Mg Tablet, 2 MG PO HS, (Reported) Estradiol 0.5 Mg Tablet, 0.5 MG PO DAILY, (Reported) Flecainide Acetate 100 Mg Tablet, 100 MG PO BID, (Reported) Fluticasone Propionate 16 Gm [place].susp, 2 SPRAYS NS HS PRN for ALLERGIES, (Reported) Fluticasone/Salmeterol 1 Each Blst.w.dev, 1 PUFF INH BID, (Reported) Metoprolol Succinate 50 Mg Tab.er.24h, 50 MG PO BID, (Reported) Montelukast Sodium 10 Mg Tablet, 10 MG PO HS, (Reported) Potassium Chloride 10 Meq Tab.er.prt, 10 MEQ PO Q48H, (Reported) TAKES ALONG WITH BUMETANIDE Sertraline HCl 100 Mg Tablet, 150 MG PO DAILY, (Reported) TAKES 1 & 1/2 (100MG) TABLET Trazodone HCl 50 Mg Tablet, 50 MG PO HS, (Reported) Patient Home Medication List Home Medication List Reviewed: Yes Physical Exam-Cardiology Physical Exam Vital Signs/I&O 12/15/18 12/15/18 12/15/18 14:40 14:40 15:16 Temp 98.9 98.9 Pulse 61 61 Resp 18 18 B/P (MAP) 161/82 161/82 (108) Pulse Ox 95 95 O2 Delivery Nasal Cannula Nasal Cannula Nasal Cannula O2 Flow Rate 2.00 2.00 2.00 Capillary Refill : Constitutional: AAO x 3, well-developed, well-nourished HEENT: PERRL, hearing is well preserved, oral hygience is good Neck: No carotid bruit; carotid pulses are 2 + bilaterally Respiratory: No accessory muscle use, No respiratory distress; chest expansion is symmetric, chest is bilaterally symmetric, lungs clear to auscultation, other (dyspneic with conversation) Cardiovascular: regular rate-rhythm; No JVD; S1 and S2 Gastrointestinal: soft, distended, audible bowel sounds Rectal: deferred Extremities: other (mild bilat LE swelling) Neurologic/Psychiatric: grossly intact, power is 5/5 both on sides Skin: No rash, No ulcerations Data Review Labs Laboratory Tests 12/15/18 15:17: White Blood Count 8.6, Red Blood Count 4.55, Hemoglobin 12.9, Hematocrit 39, Mean Corpuscular Volume 85, Mean Corpuscular Hemoglobin 28, Mean Corpuscular Hemoglobin Concent 33, Red Cell Distribution Width 15.4H, Platelet Count 224, Mean Platelet Volume 9.0, Neutrophils (%) (Auto) 73, Lymphocytes (%) (Auto) 20, Monocytes (%) (Auto) 7, Eosinophils (%) (Auto) 0, Basophils (%) (Auto) 1, Neutrophils # (Auto) 6.3, Lymphocytes # (Auto) 1.7, Monocytes # (Auto) 0.6, Eosinophils # (Auto) 0.0, Basophils # (Auto) 0.0, Sodium Level 145, Potassium Level 3.6, Chloride Level 109H, Carbon Dioxide Level 24, Anion Gap 12, Blood Urea Nitrogen 12, Creatinine 0.78, Estimat Glomerular Filtration Rate > 60, BUN/Creatinine Ratio 15, Glucose Level 95, Calcium Level 9.7, Corrected Calcium 9.5, Total Bilirubin 0.8, Aspartate Amino Transf (AST/SGOT) 17, Alanine Aminotransferase (ALT/SGPT) 13, Alkaline Phosphatase 85, Troponin I < 0.028, B- Type Natriuretic Peptide 116.8H, Total Protein 6.8, Albumin 4.3 Laboratory Tests 12/15/18 15:17 Radiology NAME: TUSHAR ESTEVEZ [facility] REC#: [id number] PT STATUS: ADM Katherine : 1945 PHYSICIAN: BREANNA DARNELL DO ADMIT DATE: 12/15/18/ Signed Date of Exam: 12/15/18 CHEST PA/LAT (2 VIEW) INDICATION: Shortness of breath. TIME OF EXAM: 02:56 p.m. Correlation is made with prior chest from 12/01/2018. FINDINGS: Lungs show some mild hyperinflation suggesting COPD. The heart size is stable. No infiltrates are seen. There is no effusion or pneumothorax. IMPRESSION: No acute cardiopulmonary process is detected. Dictated by: Dictated on workstation # [id number] Dict: 12/15/18 1521 Trans: 12/15/18 1527 Interpreted by: JOHNNY FAITH MD Electronically signed by: JOHNNY FAITH MD 12/15/18 1527 ECG Impression ECG Initial ECG Rhythm: Normal Sinus A/P-Cardiology Assessment/Admission Diagnosis Progressive exertional dyspnea likely multi-factorial, r/t chronic bronchial asthma, obesity hypoventilation syndrome Paroxysmal A fib and typical A flutter. PAF with RVR - (first documented on 09-30-18 at [facility]). Placed on flecainide at [facility] on 09/30/18. Underwent elec cardioversion for A Fl on 10/25/18 - currently maintaining SR - awaiting ablation by Dr. Donna MCKEON with Eliquis Minor coronary artery disease per cardiac catheterization of July 2006. MPI of 01/17/15 did not show ischemia or infarction, and LVEF was 54% History of bronchial asthma Hyperlipidemia, being treated and being followed by Dr. Darnell. Glucose intolerance being managed by Dr. Darnell Hypertension, under fair control Elevated body mass index of approximately 42 Echocardiography of 01/06/17 showed LVEF 55 - 60%, mild MR & TR, PASP 35-40 mmHg Minimal carotid arterial disease on carotid u/s of 03/09/17 H/o mild pulmonary hypertension probable related to obesity-hypoventilation syndrome due to body habitus. Sleep apnea syndrome for which is being treated with C-PAP therapy. History of overactive bladder and urinary incontinence. S/p botox injection September 30, 2017 by her urologist in [facility] in [place]. Left knee and R hip replacement. RBBB, chronic Chronic urinary incontinence treated with Botox bladder injections at [facility], [place] Discussion and Recomendations Progressive dyspnea likely multi-factorial as noted above Echocardiogram to eval structure and LVEF Advise CT angio of the chest Monitor on tele Continue current medication regimen including OAC, BB, calcium channel coy, Flecainide and doxazosin Monitor lab closely Further recs will be based on her hospital course Clinical Quality Measures DVT/VTE Risk/Contraindication: Risk Factor Score Per Nursin RFS Level Per Nursing on Admit: 4+=Very High RASHAUN HORN December 15, 2018 15:33
[2018-12-15] MEDS: CATHETER FLUSH 10 ML SYR IV SCH (15:35)
--- NOTE | 2018-12-15 15:36 | NUR ---
WENT OVER THE EXT MED HX WITH THE PATIENT WELL HER DETAILED MEDICATION LIST SHE BROUGHT IN. SHE VERIFIED HOW SHE TAKES EACH MEDICATION. SHE HAS RECENTLY BEEN STARTED ON THE BUMEX 1MG AND POTASSIUM 10MEQ EVERY OTHER DAY THAT WERE NOT YET UPDATED ON HER LIST HOWEVER SHE HAD THOSE BOTTLES WITH HER.
[2018-12-15 15:45] LABS: ALANINE AMINOTRANSFERASE 13 U/L (0-55); ALBUMIN 4.3 GM/DL (3.2-4.5); ALKALINE PHOSPHATASE 85 U/L (40-136); BILIRUBIN,TOTAL 0.8 MG/DL (0.1-1.0); BUN/CREATININE RATIO 15; CALCIUM 9.7 MG/DL (8.5-10.1); CARBON DIOXIDE 24 MMOL/L (21-32); CHLORIDE 109 MMOL/L (98-107); CREATININE SERUM 0.78 MG/DL (0.60-1.30); GFR ESTIMATED > 60; GLUCOSE 95 MG/DL (70-105); POTASSIUM 3.6 MMOL/L (3.6-5.0); SODIUM 145 MMOL/L (135-145); TOTAL PROTEIN 6.8 GM/DL (6.4-8.2)
[2018-12-15 16:11] VITALS: BP 168/80
[2018-12-15] MEDS ORDERED: FLUTICASONE NASAL SPRAY (FLONASE) 16 GM BTL NS PRN (16:15)
[2018-12-15] MEDS ORDERED: RT-ALBUTEROL SULF 2.5 MG/3 ML PRE-MIX VIAL IH PRN ×2 (16:15)
[2018-12-15] MEDS ORDERED: IOHEXOL 350 MG/ML 100 ML (OMNIPAQUE 350) VIAL IV ONE (16:45)
[2018-12-15] MEDS ORDERED: HOLD METFORMIN - RECEIVED CONTRAST 20 ML VIAL IV SCH (16:45)
[2018-12-15] MEDS ORDERED: NS 100 ML (IVPB) BAG IV ONE (16:45)
[2018-12-15 16:55] VITALS: BP 168/80
[2018-12-15] MEDS ORDERED: RT-ALBUTEROL/IPRATROPIUM 3 ML (DUONEB) VIAL INH PRN (17:15)
--- NOTE | 2018-12-15 19:14 | Consultation-Cardiology ---
HPI-Cardiology Cardiology Consultation: Date of Consultation 12/15/18 Time Seen by a Provider: 18:30 Date of Admission Attending Physician Breanna Broderick DO Admitting Physician Breanna Broderick DO Consulting Physician QAMAR GONZALEZ MD, MA, FACP, FACC, [facility], CCDS Physician requesting consult: Dr Broderick HPI: Chief Complaint: CC: Shortness of breath HPI: Ms. Archer is a 73 year old female direct admitted from Dr. Broderick's office (her PCP) d/t progressive exertional dyspnea. She reports she feels she has had abdominal distension and bilat LE swelling which has been progressive. She states she felt as though she was in a-fib Mother's day, describing a feeling of palpitations which lasted for approx less than 30 minutes and resolved on its own. She denies any c/o CP, syncope or near syncope. She reports she has been compliant with her medications. She states her PCP has increased her diuretic regimen, but feels this has not helped her shortness of breath. Review of Systems-Cardiology Review of Systems Constitutional: No chills, No fever; malaise Eyes: No vision change Ears/Nose/Throat: No epistaxis, No recent hearing loss Respiratory: As described under HPI Cardiovascular: As described under HPI Gastrointestinal: No constipation, No diarrhea, No nausea, No vomiting Genitourinary: No dysuria, No hematuria Musculoskeletal: no symptoms reported Skin: No rash, No ulcerations Psychiatric/Neurological: No anxiety, No depression, No seizure, No focal weakness, No syncope Hematologic: No bleeding abnormalities [id number] Hx Patient Social History Alcohol Use: Denies Use Recreational Drug Use: No 2nd Hand Smoke Exposure: No Recent Foreign Travel: No Recent Infectious Disease Expo: No Physical Abuse Screen: No Sexual Abuse: No Immunizations Up To Date Tetanus Booster (TDap): Less than 5yrs Date of Pneumonia Vaccine: May 04, 2017 Date of Influenza Vaccine: May 04, 2018 Past Medical History PMH As described under Assessment. Family Medical History Family Medical History: She reports her mother and father both had CAD and HTN. Family History: Arthritis 19 MOTHER Cataracts 19 FATHER 19 MOTHER Colon cancer 19 FATHER Deafness or hearing loss 19 FATHER Dementia 19 FATHER FH: macular degeneration 19 MOTHER FH: prostate cancer 19 FATHER FH: skin cancer 19 FATHER Gout 19 MOTHER Hypertension 19 FATHER 19 MOTHER Myocardial infarction 19 FATHER 19 MOTHER Allergies and Home Medications Allergies Coded Allergies: sulfamethoxazole (Verified Allergy, Intermediate, rash, SOB, 10/23/18) trimethoprim (Verified Allergy, Intermediate, rash, SOB, 10/23/18) cephalexin (Verified Allergy, Unknown, 10/02/18) Home Medications Albuterol Sulfate 1 Puff Puff, 2 PUFF IH Q4H PRN for SHORTNESS OF BREATH, (Reported) 1 PUFF = 90 MCG Albuterol Sulfate 2.5 Mg/3 Ml Vial.neb, 2.5 MG NEB Q4H PRN for SHORTNESS OF BREATH, (Reported) Apixaban 5 Mg Tablet, 5 MG PO BID, (Reported) Atorvastatin Calcium 20 Mg Tablet, 20 MG PO HS, (Reported) Bumetanide 1 Mg Tablet, 1 MG PO Q48H, (Reported) Cholecalciferol 5,000 Unit Capsule, 5,000 UNIT PO DAILY, (Reported) Diltiazem HCl 240 Mg Capsule.er, 240 MG PO DAILY, (Reported) Diltiazem HCl 120 Mg Capsule.er, 120 MG PO HS, (Reported) Doxazosin Mesylate 2 Mg Tablet, 2 MG PO HS, (Reported) Estradiol 0.5 Mg Tablet, 0.5 MG PO DAILY, (Reported) Flecainide Acetate 100 Mg Tablet, 100 MG PO BID, (Reported) Fluticasone Propionate 16 Gm [place].susp, 2 SPRAYS NS HS PRN for ALLERGIES, (Reported) Fluticasone/Salmeterol 1 Each Blst.w.dev, 1 PUFF INH BID, (Reported) Metoprolol Succinate 50 Mg Tab.er.24h, 50 MG PO BID, (Reported) Montelukast Sodium 10 Mg Tablet, 10 MG PO HS, (Reported) Potassium Chloride 10 Meq Tab.er.prt, 10 MEQ PO Q48H, (Reported) TAKES ALONG WITH BUMETANIDE Sertraline HCl 100 Mg Tablet, 150 MG PO DAILY, (Reported) TAKES 1 & 1/2 (100MG) TABLET Trazodone HCl 50 Mg Tablet, 50 MG PO HS, (Reported) Patient Home Medication List Home Medication List Reviewed: Yes Physical Exam-Cardiology Physical Exam Vital Signs/I&O 12/15/18 12/15/18 12/15/18 12/15/18 14:40 14:40 15:16 16:11 Temp 98.9 98.9 99.1 Pulse 61 61 59 Resp 18 18 18 B/P (MAP) 161/82 161/82 (108) 168/80 (109) Pulse Ox 95 95 94 O2 Delivery Nasal Cannula Nasal Cannula Nasal Cannula Nasal Cannula O2 Flow Rate 2.00 2.00 2.00 2.00 12/15/18 12/15/18 16:21 16:55 Pulse 60 59 Pulse Ox 94 FiO2 24 Capillary Refill : Constitutional: AAO x 3, well-developed, well-nourished HEENT: PERRL, hearing is well preserved, oral hygience is good Neck: No carotid bruit; carotid pulses are 2 + bilaterally Respiratory: No accessory muscle use, No respiratory distress; chest expansion is symmetric, chest is bilaterally symmetric, lungs clear to auscultation, other (dyspneic with conversation) Cardiovascular: regular rate-rhythm; No JVD; S1 and S2 Gastrointestinal: soft, distended, audible bowel sounds Rectal: deferred Extremities: other (mild bilat LE swelling) Neurologic/Psychiatric: grossly intact, power is 5/5 both on sides Skin: No rash, No ulcerations Data Review Labs Laboratory Tests 12/15/18 15:17: White Blood Count 8.6, Red Blood Count 4.55, Hemoglobin 12.9, Hematocrit 39, Mean Corpuscular Volume 85, Mean Corpuscular Hemoglobin 28, Mean Corpuscular Hemoglobin Concent 33, Red Cell Distribution Width 15.4H, Platelet Count 224, Mean Platelet Volume 9.0, Neutrophils (%) (Auto) 73, Lymphocytes (%) (Auto) 20, Monocytes (%) (Auto) 7, Eosinophils (%) (Auto) 0, Basophils (%) (Auto) 1, Neutr ophils # (Auto) 6.3, Lymphocytes # (Auto) 1.7, Monocytes # (Auto) 0.6, Eosinophils # (Auto) 0.0, Basophils # (Auto) 0.0, Sodium Level 145, Potassium Level 3.6, Chloride Level 109H, Carbon Dioxide Level 24, Anion Gap 12, Blood Urea Nitrogen 12, Creatinine 0.78, Estimat Glomerular Filtration Rate > 60, BUN/Creatinine Ratio 15, Glucose Level 95, Calcium Level 9.7, Corrected Calcium 9.5, Total Bilirubin 0.8, Aspartate Amino Transf (AST/SGOT) 17, Alanine Aminotransferase (ALT/SGPT) 13, Alkaline Phosphatase 85, Troponin I < 0.028, B- Type Natriuretic Peptide 116.8H, Total Protein 6.8, Albumin 4.3 Breanna Broderick DO Laboratory Tests 12/15/18 15:17 A/P-Cardiology Assessment/Admission Diagnosis Progressive exertional dyspnea likely multi-factorial, r/t chronic bronchial asthma, obesity hypoventilation syndrome, ac mendez CHF Paroxysmal A fib and typical A flutter. PAF with RVR - (first documented on 09-30-18 at [facility]). Placed on flecainide at [facility] on 09/30/18. Underwent elec cardioversion for A Fl on 10/25/18 - currently maintaining SR - awaiting ablation OAC with Eliquis Minor coronary artery disease per cardiac catheterization of July 2006. MPI of 01/17/15 did not show ischemia or infarction, and LVEF was 54% History of bronchial asthma Hyperlipidemia, being treated and being followed by Dr. Broderick. Glucose intolerance being managed by Dr. Broderick Hypertension, under fair control Elevated body mass index of approximately 42 Echocardiography of 01/06/17 showed LVEF 55 - 60%, mild MR & TR, PASP 35-40 mmHg Minimal carotid arterial disease on carotid u/s of 03/09/17 H/o mild pulmonary hypertension probable related to obesity-hypoventilation syndrome due to body habitus. Sleep apnea syndrome for which is being treated with C-PAP therapy. History of overactive bladder and urinary incontinence. S/p botox injection September 30, 2017 by her urologist in [facility] in [place]. Left knee and R hip replacement. RBBB, chronic Chronic urinary incontinence treated with Botox bladder injections at [facility], Discussion and Recomendations * Echocardiogram to eval structure and LVEF * Advise CT angio of the chest * Consider Pulm consult * Monitor on tele * Continue current medication regimen including OAC, BB, calcium channel coy, Flecainide, furosemide, and doxazosin * Monitor lab closely * Further recs will be based on her hospital course Clinical Quality Measures DVT/VTE Risk/Contraindication: Risk Factor Score Per Nursin RFS Level Per Nursing on Admit: 4+=Very High QAMAR GONZALEZ MD FACP [facility] CCDS December 15, 2018 19:13
[2018-12-15 19:51] VITALS: BP 158/69
[2018-12-15] MEDS: traZODone 50 MG (DESYREL) TAB PO SCH (20:29)
--- NOTE | 2018-12-15 20:29 | Diagnostic Imaging Report ---
PROCEDURE: CT angiography of the chest with contrast. TECHNIQUE: Multiple contiguous axial images were obtained through the chest after uneventful bolus administration of intravenous contrast. 2D reconstructed CTA MIP acquisitions were also performed. Auto Exposure Controls were utilized during the CT exam to meet ALARA standards for radiation dose reduction. DATE: December 15, 2018. COMPARISON: Chest radiographs, December 15, 2018. INDICATION: 73-year-old female, progressive exertional dyspnea. FINDINGS: There is some respiratory motion artifact. There is no identified pulmonary nodule or lung mass. There are areas of mosaic lung attenuation which may reflect small airways disease and air-trapping. There is mild dependent atelectasis. There is no additional identified focal airspace consolidation. The central airways are patent. There is no pneumothorax. There is a minimal amount of pleural fluid, bilaterally. There is no identified pulmonary embolus. The main pulmonary artery measures 2.9 cm in diameter which is just slightly above upper limits of normal. This potentially could reflect pulmonary artery hypertension. The heart is not enlarged. There is no pericardial effusion. There are atherosclerotic calcifications. The patient is status post cholecystectomy. There is sequela of prior granulomatous disease. There is a right hilar lymph node on axial image 42 measuring 1.5 cm in short axis. There is an AP window lymph node on axial image 36 measuring 9 mm in short axis. There are multilevel degenerative changes of the spine. There is no identified acute bony abnormality. IMPRESSION: CT chest: 1. No identified pulmonary embolus. 2. Minimal pleural effusions, bilaterally. 3. Mosaic lung attenuation which may relate to small airways disease and air-trapping. 4. Slight prominence of main pulmonary artery caliber which may reflect pulmonary artery hypertension. Dictated by: Dictated on workstation # [id number]
[2018-12-15] MEDS: ATORVASTATIN 20 MG (LIPITOR) TABLET PO SCH (20:30)
[2018-12-15] MEDS: APIXABAN 5 MG (ELIQUIS) TABLET PO SCH (20:30)
[2018-12-15] MEDS: FLECAINIDE 100 MG (TAMBOCOR) TAB PO SCH (20:30)
[2018-12-15] MEDS: DILTIAZEM 120 MG (CARDIZEM CD) CAP PO SCH (20:30)
[2018-12-15] MEDS: meTOproloL SUCCINATE 50 MG (TOPROL XL) TAB PO SCH (20:30)
[2018-12-15] MEDS: doxAzosin 2 MG (CARDURA) TAB PO SCH (20:30)
[2018-12-15] MEDS: MONTELUKAST 10 MG (SINGULAIR) TAB PO SCH (20:35)
[2018-12-15] MEDS ORDERED: NON-FORMULARY MEDICATION 1 EA EA (Diltiazem HCl (Diltiazem ER) 120 MG) PO SCH (21:00)
[2018-12-15] MEDS ORDERED: NON-FORMULARY MEDICATION 1 EA EA (Fluticasone/Salmeterol (Advair 100-50 Diskus) 1 PUFF) INH SCH (21:00)
[2018-12-15] MEDS ORDERED: NON-FORMULARY MEDICATION 1 EA EA (Flecainide Acetate 100 MG) PO SCH (21:00)
[2018-12-15] MEDS: RT-ALBUTEROL/IPRATROPIUM 3 ML (DUONEB) VIAL INH SCH (21:15)
[2018-12-15] MEDS: RT-ADVAIR HFA 45/21 MCG PER PUFF IH SCH (21:20)
[2018-12-16] VITALS (7 sets, daily range): BP systolic 130–164; BP diastolic 63–84
[2018-12-16 05:28] LABS: BASOPHILS % (AUTO) 1 % (0-10); EOSINOPHILS % (AUTO) 0 % (0-10); HEMATOCRIT 37 % (35-52); HEMOGLOBIN 12.4 G/DL (11.5-16.0); LYMPHOCYTES # (AUTO) 1.6 X 10^3 (1.0-4.0); LYMPHOCYTES % (AUTO) 23 % (12-44); MEAN CORPUSCULAR HEMOGLOBIN 28 PG (25-34); MEAN CORPUSCULAR HGB CONC 33 G/DL (32-36); MEAN CORPUSCULAR VOLUME 85 FL (80-99); MEAN PLATELET VOLUME 9.3 FL (7.4-10.4); MONOCYTES # (AUTO) 0.7 X 10^3 (0.0-1.0); MONOCYTES % (AUTO) 10 % (0-12); NEUTROPHILS # (AUTO) 4.7 X 10^3 (1.8-7.8); NEUTROPHILS % (AUTO) 66 % (42-75); PLATELET COUNT 159 10^3/uL (130-400); WHITE BLOOD COUNT 7.1 10^3/uL (4.3-11.0)
[2018-12-16 06:06] LABS: ALANINE AMINOTRANSFERASE 13 U/L (0-55); ALBUMIN 3.8 GM/DL (3.2-4.5); ALKALINE PHOSPHATASE 75 U/L (40-136); BILIRUBIN,TOTAL 0.8 MG/DL (0.1-1.0); BUN/CREATININE RATIO 16; CALCIUM 9.1 MG/DL (8.5-10.1); CARBON DIOXIDE 24 MMOL/L (21-32); CHLORIDE 106 MMOL/L (98-107); CREATININE SERUM 0.82 MG/DL (0.60-1.30); GFR ESTIMATED > 60; GLUCOSE 107 MG/DL (70-105); POTASSIUM 3.4 MMOL/L (3.6-5.0); SODIUM 140 MMOL/L (135-145); TOTAL PROTEIN 5.8 GM/DL (6.4-8.2)
[2018-12-16] MEDS: FUROSEMIDE 40 MG/4 ML INJ (LASIX) IVP SCH ×2 (06:08→16:28)
[2018-12-16] MEDS: CATHETER FLUSH 10 ML SYR IV SCH ×3 (06:08→23:22)
[2018-12-16] MEDS ORDERED: KCL 20 MEQ TAB (K-DUR) PO SCH ×2 (07:00→17:00)
[2018-12-16] MEDS: meTOproloL SUCCINATE 50 MG (TOPROL XL) TAB PO SCH ×2 (08:29→20:08)
[2018-12-16] MEDS: ESTRADIOL 1 MG TAB (ESTRACE) PO SCH (08:29)
[2018-12-16] MEDS: APIXABAN 5 MG (ELIQUIS) TABLET PO SCH ×2 (08:29→20:08)
[2018-12-16] MEDS: SERTRALINE 100 MG (ZOLOFT) TAB PO SCH (08:29)
[2018-12-16] MEDS: VITAMIN D3 5,000 UNITS (CHOLECALCIFEROL ) CAPSULE PO SCH (08:29)
[2018-12-16] MEDS: DILTIAZEM 240 MG (CARDIZEM CD) CAP PO SCH (08:29)
[2018-12-16] MEDS: FLECAINIDE 100 MG (TAMBOCOR) TAB PO SCH ×2 (08:39→20:08)
[2018-12-16] MEDS ORDERED: NON-FORMULARY MEDICATION 1 EA EA (Estradiol (Estradiol Tablet) 0.5 MG) PO SCH (09:00)
[2018-12-16] MEDS ORDERED: NON-FORMULARY MEDICATION 1 EA EA (Diltiazem HCl (Diltiazem ER) 240 MG) PO SCH (09:00)
[2018-12-16] MEDS ORDERED: CALCIUM CARBONATE 500 MG (TUMS) TAB.CHEW PO NR (11:00)
[2018-12-16] MEDS ORDERED: CALCIUM CARBONATE 500 MG (TUMS) TAB.CHEW PO PRN (11:00)
--- NOTE | 2018-12-16 11:13 | History & Physical-Hospitalist ---
History of Present Illness HPI/Chief Complaint Chief complaint: Anasarca HPI: This is a 73yoWF clinic Pt of mine for 15 years with a PMH of recent cardiology issues of atrial fibrillation with rapid ventricular response and volume overload managed by Dr. Ang. Pt had failed ora diuretics and required IV Lasix of 80 Mg IV x1 yesterday and [address] Ang and Dr. Jerome consultation due to cardiac and pulmonary issues both being a factor in volume overload. Creatinine was monitored closely. Echocardiogram was ordered along with CT scan and Tums was given for acute reflux issues. At this current time Pt had output of 1500 yesterday afternoon after Lasix and an additional 2100 through the night and has already had a significant decrease in edema and SOB Source: patient Exam Limitations: no limitations Date Seen 12/16/18 Time Seen by a Provider: 09:30 Attending Physician Breanna Darnell DO PCP Breanna Darnell DO Referring Physician Date of Admission December 15, 2018 at 14:33 Home Medications & Allergies Home Medications Reviewed patient Home Medication Reconciliation performed by pharmacy medication reconciliations wind commissioning technician and/or nursing. Patients Allergies have been reviewed. Allergies Allergies Coded Allergies sulfamethoxazole (Verified Allergy, Intermediate, rash, SOB, 10/23/18) trimethoprim (Verified Allergy, Intermediate, rash, SOB, 10/23/18) cephalexin (Verified Allergy, Unknown, 10/02/18) Past [id number] Hx Past Med/Social Hx: Reviewed Nursing Past Med/Soc Hx, Reviewed and Corrections made Patient Social History Marrital Status: Employed/Student: retired Alcohol Use: Denies Use Recreational Drug Use: No Smoking Status: Never a Smoker 2nd Hand Smoke Exposure: No Physical Abuse Screen: No Sexual Abuse: No Recent Foreign Travel: No Contact w/other who traveled: No Recent Hopitalizations: Yes (ER VISIT FEW DAYS AGO DRUG REACTION AND ASTHMA ATTACK) Recent Infectious Disease Expo: No Immunizations Up To Date Tetanus Booster (TDap): Less than 5yrs Date of Pneumonia Vaccine: May 04, 2017 Date of Influenza Vaccine: May 04, 2018 Seasonal Allergies Seasonal Allergies: No Past Medical History Surgeries: Bladder Surgery, Gallbladder, Hysterectomy, Joint Replacement Respiratory: Asthma, Sleep Apnea Currently Using CPAP: Yes Currently Using BIPAP: No Cardiac: Atrial Fibrillation, Chronic Edema/Swelling, Hypertension, Palpitations Reproductive: No Sexually Transmitted Disease: No Menopausal Genitourinary: Bladder Infection Gastrointestinal: Gastroesophageal Reflux Musculoskeletal: Arthritis Endocrine: Diabetes, Non-Insulin dep HEENT: Cataract Loss of Vision: Bilateral Hearing Impairment: Denies Psychosocial: Depression History of Blood Disorders: No Adverse Reaction to Blood Singh: No Family History Arthritis 19 MOTHER Cataracts 19 FATHER 19 MOTHER Colon cancer 19 FATHER Deafness or hearing loss 19 FATHER Dementia 19 FATHER FH: macular degeneration 19 MOTHER FH: prostate cancer 19 FATHER FH: skin cancer 19 FATHER Gout 19 MOTHER Hypertension 19 FATHER 19 MOTHER Myocardial infarction 19 FATHER 19 MOTHER Review of Systems Constitutional: see HPI EENTM: no symptoms reported Respiratory: dyspnea on exertion, short of breath Cardiovascular: edema Gastrointestinal: no symptoms reported Genitourinary: no symptoms reported Musculoskeletal: no symptoms reported Skin: no symptoms reported Psychiatric/Neurological: No Symptoms Reported All Other Systems Reviewed Negative Unless Noted: Yes Physical Exam Physical Exam Vital Signs Vital Signs - First Documented 12/15/18 16:55 FiO2 24 Capillary Refill : Height, Weight, BMI Height: 5'7.00" Weight: 280lbs. 14.4oz. 127.022303bj; 44.0 BMI Method:Stated General Appearance: No Apparent Distress, WD/WN, Chronically ill, Obese Eyes: Right Eye Normal Inspection, Right Eye PERRL HEENT: PERRL/EOMI, Normal ENT Inspection, Pharynx Normal, Moist Mucous Membranes Neck: Full Range of Motion, Normal Inspection, Non Tender Respiratory: Chest Non Tender, Lungs Clear, Normal Breath Sounds, No Accessory Muscle Use, No Respiratory Distress, Decreased Breath Sounds Cardiovascular: Regular Rate, Rhythm, No Gallop, No JVD, No Murmur, Normal Peripheral Pulses Gastrointestinal: Normal Bowel Sounds, No Organomegaly, No Pulsatile Mass, Non Tender, Soft Back: Normal Inspection, No CVA Tenderness, No Vertebral Tenderness Extremity: Normal Capillary Refill, Normal Inspection, Normal Range of Motion, Non Tender, No Calf Tenderness, Pedal Edema Neurologic/Psychiatric: Alert, Oriented x3, No Motor/Sensory Deficits, Normal Mood/Affect Skin: Normal Color, Warm/Dry Lymphatic: No Adenopathy Results Results/Procedures Labs Laboratory Tests 12/15/18 15:17 12/16/18 05:00 12/16/18 05:07 Patient resulted labs reviewed. Assessment/Plan Admission Diagnosis Assessment: AE asthma Anasarca Volume overload with elevated BNP improved with diuresis with aggressive Lasix ADOLPH on CPAP Night time hypoxia on O2 at night HTN AF Borderline DM Recurrent UTI's managed with Botox injections of the urethra at [facility] Chronic depression Severe insomnia Anticoagulation Plan: Monitor O2 sat Lasix Monitor creatinine Steroids Nebs Admission Status: Inpatient Order (span 2 midnights) Reason for Inpatient Admission: Severe anasarca with dyspnea and failure of PO diuretics with elevated BNP Diagnosis/Problems Diagnosis/Problems (1) Anasarca Status: Acute (2) Respiratory insufficiency Status: Acute (3) ADOLPH on CPAP Status: Chronic (4) Recurrent UTI Status: Chronic (5) Obesity Status: Chronic Qualifiers: Obesity type: due to excess calories Obesity classification: adult class 3 (BMI >= 40) Body mass index: BMI 40.0-44.9 (6) Hyperlipidemia Status: Chronic Qualifiers: Hyperlipidemia type: mixed hyperlipidemia Qualified Codes: E78.2 - Mixed hyperlipidemia (7) Anxiety Status: Chronic (8) Insomnia Status: Chronic Qualifiers: Insomnia type: primary Qualified Codes: F51.01 - Primary insomnia (9) Hypertension Status: Chronic Qualifiers: Hypertension type: essential hypertension Qualified Codes: I10 - Essential (primary) hypertension (10) RESPIRATORY FAILURE, UNSP, UNSP W HYPOXIA OR HYPERCAPNIA Status: Chronic (11) Depression Status: Chronic Qualifiers: Depression Type: unspecified Qualified Codes: F32.9 - Major depressive disorder, single episode, unspecified (12) Acute asthma exacerbation Status: Acute Qualifiers: Asthma severity: moderate Asthma persistence: persistent Qualified Codes: J45.41 - Moderate persistent asthma with (acute) exacerbation (13) Atrial fibrillation Status: Chronic Qualifiers: Atrial fibrillation type: paroxysmal Qualified Codes: I48.0 - Paroxysmal atrial fibrillation Clinical Quality Measures DVT/VTE Risk/Contraindication: Risk Factor Score Per Nursin RFS Level Per Nursing on Admit: 4+=Very High BREANNA DARNELL DO December 16, 2018 11:13
--- NOTE | 2018-12-16 12:59 | Pulmonary Consultation ---
History of Present Illness History of Present Illness Date of Consultation 12/16/18 12:59 Date of Admission Allergies and Home Medications Allergies Coded Allergies: sulfamethoxazole (Verified Allergy, Intermediate, rash, SOB, 10/23/18) trimethoprim (Verified Allergy, Intermediate, rash, SOB, 10/23/18) cephalexin (Verified Allergy, Unknown, 10/02/18) Home Medications Albuterol Sulfate 1 Puff Puff, 2 PUFF IH Q4H PRN for SHORTNESS OF BREATH, (Reported) 1 PUFF = 90 MCG Albuterol Sulfate 2.5 Mg/3 Ml Vial.neb, 2.5 MG NEB Q4H PRN for SHORTNESS OF BREATH, (Reported) Apixaban 5 Mg Tablet, 5 MG PO BID, (Reported) Atorvastatin Calcium 20 Mg Tablet, 20 MG PO HS, (Reported) Bumetanide 1 Mg Tablet, 1 MG PO Q48H, (Reported) Cholecalciferol 5,000 Unit Capsule, 5,000 UNIT PO DAILY, (Reported) Diltiazem HCl 240 Mg Capsule.er, 240 MG PO DAILY, (Reported) Diltiazem HCl 120 Mg Capsule.er, 120 MG PO HS, (Reported) Doxazosin Mesylate 2 Mg Tablet, 2 MG PO HS, (Reported) Estradiol 0.5 Mg Tablet, 0.5 MG PO DAILY, (Reported) Flecainide Acetate 100 Mg Tablet, 100 MG PO BID, (Reported) Fluticasone Propionate 16 Gm [place].susp, 2 SPRAYS NS HS PRN for ALLERGIES, (Reported) Fluticasone/Salmeterol 1 Each Blst.w.dev, 1 PUFF INH BID, (Reported) Metoprolol Succinate 50 Mg Tab.er.24h, 50 MG PO BID, (Reported) Montelukast Sodium 10 Mg Tablet, 10 MG PO HS, (Reported) Potassium Chloride 10 Meq Tab.er.prt, 10 MEQ PO Q48H, (Reported) TAKES ALONG WITH BUMETANIDE Sertraline HCl 100 Mg Tablet, 150 MG PO DAILY, (Reported) TAKES 1 & 1/2 (100MG) TABLET Trazodone HCl 50 Mg Tablet, 50 MG PO HS, (Reported) Past Flrwltz-Ozurpu-Gdnwwt Hx Patient Social History Alcohol Use: Denies Use Recreational Drug Use: No 2nd Hand Smoke Exposure: No Recent Foreign Travel: No Contact w/Someone Who Travel: No Recent Infectious Disease Expo: No Recent Hopitalizations: Yes (ER VISIT FEW DAYS AGO DRUG REACTION AND ASTHMA ATTACK) Immunizations Up To Date Tetanus Booster (TDap): Less than 5yrs Date of Pneumonia Vaccine: May 04, 2017 Date of Influenza Vaccine: May 04, 2018 Seasonal Allergies Seasonal Allergies: No Past Medical History Surgeries: Yes (HIATAL HERNIA, L TKR, R HIP REPLACEMENT, BLADDER x8, BILAT FOOT SX) Bladder Surgery, Gallbladder, Hysterectomy, Joint Replacement Respiratory: Yes (pulmonary edema ) Asthma, Sleep Apnea Currently Using CPAP: Yes Currently Using BIPAP: No Cardiac: Yes Atrial Fibrillation, Hypertension, Palpitations Neurological: No Reproductive Disorders: No 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 Sexually Transmitted Disease: No Genitourinary: Yes Bladder Infection Gastrointestinal: Yes Gastroesophageal Reflux Musculoskeletal: Yes Arthritis Endocrine: No Diabetes, Non-Insulin dep Cataract Loss of Vision: Bilateral Hearing Impairment: Denies Cancer: No Psychosocial: Yes Depression Integumentary: No Blood Disorders: No Adverse Reaction/Blood Tranf: No Family Medical History Arthritis 19 MOTHER Cataracts 19 FATHER 19 MOTHER Colon cancer 19 FATHER Deafness or hearing loss 19 FATHER Dementia 19 FATHER FH: macular degeneration 19 MOTHER FH: prostate cancer 19 FATHER FH: skin cancer 19 FATHER Gout 19 MOTHER Hypertension 19 FATHER 19 MOTHER Myocardial infarction 19 FATHER 19 MOTHER Sepsis Event Evaluation Height, Weight, BMI Height: 5'7.00" Weight: 280lbs. 14.4oz. 127.428888zb; 44.0 BMI Method:Stated Exam Exam Vital Signs Date Time Temp Pulse Resp B/P (MAP) Pulse Ox O2 Delivery O2 Flow Rate FiO2 12/16/18 12:00 97.8 56 18 164/84 (110) 92 Room Air 12/16/18 08:00 97.4 51 20 130/63 (85) 92 Room Air 12/16/18 07:04 52 12/16/18 04:43 98.1 57 16 136/66 (89) 94 Nasal Cannula 1.50 12/16/18 02:25 91 NIV Bilevel 2.00 12/16/18 01:00 50 12/16/18 00:28 98.2 61 18 131/72 (91) 91 Nasal Cannula 1.50 12/15/18 21:20 98 Room Air 12/15/18 21:15 93 Room Air 12/15/18 20:00 Nasal Cannula 1.00 12/15/18 19:51 98.6 61 22 158/69 (98) 94 Nasal Cannula 1.50 12/15/18 19:00 60 12/15/18 16:55 59 94 24 12/15/18 16:21 60 12/15/18 16:11 99.1 59 18 168/80 (109) 94 Nasal Cannula 2.00 12/15/18 15:16 Nasal Cannula 2.00 12/15/18 14:40 98.9 61 18 161/82 (108) 95 Nasal Cannula 2.00 12/15/18 14:40 98.9 61 18 161/82 95 Nasal Cannula 2.00 I & O 12/16/18 07:00 Intake Total 1710 ml Output Total 3050 ml Balance -1340 ml Height & Weight Height: 5'7.00" Weight: 280lbs. 14.4oz. 127.889907mc; 44.0 BMI Method:Stated Results Lab Laboratory Tests 12/15/18 15:17 12/16/18 05:00 12/16/18 05:07 Assessment/Plan Assessment/Plan Asthma AE -DuoNebs, Advair -Add Singulair, claritin -Add Solumedrol 40 Q 6 Pulmonary infiltrates with mediastinal lymphadenopathy r/o PNA -No fever, No leukocytosis -Probable airtrapping and pulmonary edema contributing to infiltration on CT scan Diastolic CHFAE EF 54% -Continue Lasix Obesity hypoventilation syndrome -Check ABG CAD -Cardiology following ADOLPH -Home CPAP machine Chronic RBBB ALEXSANDER LARSEN DO December 16, 2018 12:59
--- NOTE | 2018-12-16 14:08 | Progress Note-Cardiology ---
Cardiology SOAP Progress Note Subjective: Feels somewhat better today Less short of breath No cp or palp or syncope Objective: I&O/Vital Signs 12/16/18 12/16/18 12/16/18 12/16/18 02:25 04:43 07:04 08:00 Temp 98.1 97.4 Pulse 57 52 51 Resp 16 20 B/P (MAP) 136/66 (89) 130/63 (85) Pulse Ox 91 94 92 O2 Delivery NIV Bilevel Nasal Cannula Room Air O2 Flow Rate 2.00 1.50 12/16/18 12/16/18 08:00 12:00 Temp 97.8 Pulse 56 Resp 18 B/P (MAP) 164/84 (110) Pulse Ox 92 O2 Delivery Room Air Room Air 12/16/18 00:00 Intake Total 1460 ml Output Total 2150 ml Balance -690 ml Weight (Pounds): 280 Weight (Ounces): 14.4 Weight (Calculated Kilograms): 127.311849 Constitutional: AAO x 3, well-developed, well-nourished Respiratory: No accessory muscle use, No respiratory distress; chest expansion is symmetric, chest is bilaterally symmetric, lungs clear to auscultation, other (dyspneic with conversation) Cardiovascular: regular rate-rhythm; No JVD; S1 and S2 Gastrointestional: soft, distended, audible bowel sounds Extremities: other (mild bilat LE swelling) Neurologic/Psychiatric: grossly intact, power is 5/5 both on sides Skin: No rash, No ulcerations Results/Procedures: Labs Laboratory Tests 12/15/18 15:17: White Blood Count 8.6, Red Blood Count 4.55, Hemoglobin 12.9, Hematocrit 39, Mean Corpuscular Volume 85, Mean Corpuscular Hemoglobin 28, Mean Corpuscular Hemoglobin Concent 33, Red Cell Distribution Width 15.4H, Platelet Count 224, Mean Platelet Volume 9.0, Neutrophils (%) (Auto) 73, Lymphocytes (%) (Auto) 20, Monocytes (%) (Auto) 7, Eosinophils (%) (Auto) 0, Basophils (%) (Auto) 1, Neutrophils # (Auto) 6.3, Lymphocytes # (Auto) 1.7, Monocytes # (Auto) 0.6, Eosinophils # (Auto) 0.0, Basophils # (Auto) 0.0, Sodium Level 145, Potassium Level 3.6, Chloride Level 109H, Carbon Dioxide Level 24, Anion Gap 12, Blood Urea Nitrogen 12, Creatinine 0.78, Estimat Glomerular Filtration Rate > 60, BUN/Creatinine Ratio 15, Glucose Level 95, Calcium Level 9.7, Corrected Calcium 9.5, Total Bilirubin 0.8, Aspartate Amino Transf (AST/SGOT) 17, Alanine Aminotransferase (ALT/SGPT) 13, Alkaline Phosphatase 85, Troponin I < 0.028, B- Type Natriuretic Peptide 116.8H, Total Protein 6.8, Albumin 4.3 12/16/18 05:00: Sodium Level 140, Potassium Level 3.4L, Chloride Level 106, Carbon Dioxide Level 24, Anion Gap 10, Blood Urea Nitrogen 13, Creatinine 0.82, Estimat Glomerular Filtration Rate > 60, BUN/Creatinine Ratio 16, Glucose Level 107H, Calcium Level 9.1, Corrected Calcium 9.3, Total Bilirubin 0.8, Aspartate Amino Transf (AST/SGOT) 13, Alanine Aminotransferase (ALT/SGPT) 13, Alkaline Phosphatase 75, Total Protein 5.8L, Albumin 3.8 12/16/18 05:07: White Blood Count 7.1, Red Blood Count 4.37, Hemoglobin 12.4, Hematocrit 37, Mean Corpuscular Volume 85, Mean Corpuscular Hemoglobin 28, Mean Corpuscular Hemoglobin Concent 33, Red Cell Distribution Width 15.0H, Platelet Count 159, Mean Platelet Volume 9.3, Neutrophils (%) (Auto) 66, Lymphocytes (%) (Auto) 23, Monocytes (%) (Auto) 10, Eosinophils (%) (Auto) 0, Basophils (%) (Auto) 1, Neutrophils # (Auto) 4.7, Lymphocytes # (Auto) 1.6, Monocytes # (Auto) 0.7, Eosinophils # (Auto) 0.0, Basophils # (Auto) 0.0 A/P: Assessment: Progressive exertional dyspnea likely multi-factorial, r/t chronic bronchial asthma, obesity hypoventilation syndrome, ac mendez CHF Paroxysmal A fib and typical A flutter. PAF with RVR - (first documented on 09-30-18 at [facility]). Placed on flecainide at [facility] on 09/30/18. Underwent elec cardioversion for A Fl on 10/25/18 - currently maintaining SR - awaiting ablation OAC with Eliquis Minor coronary artery disease per cardiac catheterization of July 2006. MPI of 01/17/15 did not show ischemia or infarction, and LVEF was 54% History of bronchial asthma Hyperlipidemia, being treated and being followed by Dr. Broderick. Glucose intolerance being managed by Dr. Broderick Hypertension, under fair control Elevated body mass index of approximately 42 Echo 12/16/18 showed LVEF 60-65%, mild MR, RVSP 25 mmHg Minimal carotid arterial disease on carotid u/s of 03/09/17 H/o mild pulmonary hypertension probable related to obesity-hypoventilation syndrome due to body habitus. Sleep apnea syndrome for which is being treated with C-PAP therapy. History of overactive bladder and urinary incontinence. S/p botox injection September 30, 2017 by her urologist in [facility] in [place]. Left knee and R hip replacement. RBBB, chronic Chronic urinary incontinence treated with Botox bladder injections at [facility], Plan: * Consider Pulm consult * Monitor on tele * Continue current medication regimen including OAC, BB, calcium channel coy, Flecainide, furosemide, and doxazosin * Increase K * Monitor lab closely * Dr Randle covering this long weekend QAMAR GONZALEZ MD FACP [facility] December 16, 2018 14:08
[2018-12-16] MEDS: RT-ADVAIR HFA 45/21 MCG PER PUFF IH SCH ×2 (16:17→20:27)
[2018-12-16] MEDS: RT-ALBUTEROL/IPRATROPIUM 3 ML (DUONEB) VIAL INH SCH ×3 (16:19→20:27)
[2018-12-16] MEDS: methylPREDNISolone 40 MG/ML (Solu-MEDROL) VIAL IV SCH ×2 (16:28→23:22)
[2018-12-16] MEDS ORDERED: KCL 10 MEQ TAB (MICRO K) PO NR (16:45)
[2018-12-16] MEDS: traZODone 50 MG (DESYREL) TAB PO SCH (20:08)
[2018-12-16] MEDS: DILTIAZEM 120 MG (CARDIZEM CD) CAP PO SCH (20:08)
[2018-12-16] MEDS: ATORVASTATIN 20 MG (LIPITOR) TABLET PO SCH (20:08)
[2018-12-16] MEDS: doxAzosin 2 MG (CARDURA) TAB PO SCH (20:08)
[2018-12-16] MEDS: MONTELUKAST 10 MG (SINGULAIR) TAB PO SCH (21:04)
[2018-12-17] MEDS: RT-ALBUTEROL/IPRATROPIUM 3 ML (DUONEB) VIAL INH SCH ×4 (02:46→19:26)
[2018-12-17 04:25] VITALS: BP 166/74
--- NOTE | 2018-12-17 05:23 | Pulmonary Progress Note ---
Sepsis Event Evaluation Height, Weight, BMI Height: 5'7.00" Weight: 280lbs. 14.4oz. 127.101327jh; 44.0 BMI Method:Stated Exam Exam Vital Signs Date Time Temp Pulse Resp B/P (MAP) Pulse Ox O2 Delivery O2 Flow Rate FiO2 12/17/18 04:25 96.6 67 18 166/74 (104) 94 Room Air 12/17/18 02:46 93 NIV CPAP 2.00 12/17/18 01:00 55 12/16/18 23:35 97.4 56 18 141/64 (89) 92 Room Air 12/16/18 20:33 Nasal Cannula 1.00 12/16/18 20:27 93 Nasal Cannula 1.00 12/16/18 20:10 Nasal Cannula 0.50 12/16/18 19:53 99.0 64 18 160/63 (95) 90 Room Air 12/16/18 19:00 66 12/16/18 16:24 97.5 58 18 145/66 (92) 91 Room Air 12/16/18 16:23 93 Room Air 12/16/18 13:52 58 12/16/18 12:00 97.8 56 18 164/84 (110) 92 Room Air 12/16/18 08:00 Room Air 12/16/18 08:00 97.4 51 20 130/63 (85) 92 Room Air 12/16/18 07:04 52 I & O 12/17/18 07:00 Intake Total 2630 ml Output Total 3400 ml Balance -770 ml Height & Weight Height: 5'7.00" Weight: 280lbs. 14.4oz. 127.037678er; 44.0 BMI Method:Stated General Appearance: No Apparent Distress, WD/WN, Chronically ill, Obese HEENT: PERRL/EOMI, Normal ENT Inspection, Pharynx Normal, Moist Mucous Membranes Neck: Full Range of Motion, Normal Inspection, Non Tender Respiratory: Chest Non Tender, Lungs Clear, Normal Breath Sounds, No Accessory Muscle Use, No Respiratory Distress, Decreased Breath Sounds Cardiovascular: Regular Rate, Rhythm, No Gallop, No JVD, No Murmur, Normal Peripheral Pulses Extremity: Normal Capillary Refill, Normal Inspection, Normal Range of Motion, Non Tender, No Calf Tenderness, Pedal Edema Neurologic/Psychiatric: Alert, Oriented x3, No Motor/Sensory Deficits, Normal Mood/Affect Skin: Normal Color, Warm/Dry Lymphatic: No Adenopathy Results Lab Laboratory Tests 12/15/18 15:17 12/16/18 05:00 12/16/18 05:07 Assessment/Plan Assessment/Plan Asthma AE -DuoNebs, Advair -Singulair, claritin - Solumedrol 40 Q 6 Pulmonary infiltrates with mediastinal lymphadenopathy r/o PNA -No fever, No leukocytosis -Probable airtrapping and pulmonary edema contributing to infiltration on CT scan Diastolic CHFAE EF 54% -Continue Lasix Obesity hypoventilation syndrome -Check ABG CAD -Cardiology following ADOLPH -Home CPAP machine Chronic RBBB ALEXSANDER LARSEN DO December 17, 2018 05:23
[2018-12-17] MEDS: methylPREDNISolone 40 MG/ML (Solu-MEDROL) VIAL IV SCH ×3 (06:05→17:21)
[2018-12-17] MEDS: KCL 10 MEQ TAB (MICRO K) PO SCH (06:05)
[2018-12-17] MEDS: FUROSEMIDE 40 MG/4 ML INJ (LASIX) IVP SCH ×2 (06:05→17:20)
[2018-12-17] MEDS: CATHETER FLUSH 10 ML SYR IV SCH ×2 (06:06→11:48)
[2018-12-17] MEDS: RT-ADVAIR HFA 45/21 MCG PER PUFF IH SCH ×2 (07:00→19:27)
[2018-12-17 08:00] VITALS: BP 132/66
[2018-12-17] MEDS: ESTRADIOL 1 MG TAB (ESTRACE) PO SCH (09:46)
[2018-12-17] MEDS: VITAMIN D3 5,000 UNITS (CHOLECALCIFEROL ) CAPSULE PO SCH (09:46)
[2018-12-17] MEDS: DILTIAZEM 240 MG (CARDIZEM CD) CAP PO SCH (09:46)
[2018-12-17] MEDS: FLECAINIDE 100 MG (TAMBOCOR) TAB PO SCH ×2 (09:47→19:56)
[2018-12-17] MEDS: LORATADINE (CLARITIN) 10 MG TAB PO SCH (09:49)
[2018-12-17] MEDS: SERTRALINE 100 MG (ZOLOFT) TAB PO SCH (09:49)
[2018-12-17] MEDS: APIXABAN 5 MG (ELIQUIS) TABLET PO SCH ×2 (09:49→19:51)
--- NOTE | 2018-12-17 09:49 | Cardiology Progress Note ---
Subjective Date Seen by Provider: December 17, 2018 Time Seen by Provider: 09:47 Subjective/Events-last exam Patient is in bed, feeling better, no new complaint, still having some dyspnea Review of Systems General: No Chills, No Night Sweats, No Fatigue, No Malaise, No Appetite, No Other HEENT: No Head Aches, No Visual Changes, No Eye Pain, No Ear Pain, No Dysphasia, No Sinus Congestion, No Post Nasal Drip, No Sore Throat, No Other Pulmonary: Dyspnea; No Cough, No Pleuritic Chest Pain, No Other Cardiovascular: Edema; No: Chest Pain, Palpitations, Orthopnea, Paroxysmal Noc. Dyspnea, Lt Headedness, Other Objective-Cardiology Exam Last Set of Vital Signs Vital Signs 12/15/18 12/17/18 12/17/18 16:55 07:01 08:00 Temp 98.2 Pulse 82 Resp 20 B/P (MAP) 132/66 (88) Pulse Ox 91 O2 Delivery Room Air O2 Flow Rate 2.00 FiO2 24 Capillary Refill : I&O Intake and Output 12/17/18 00:00 Intake Total 2880 ml Output Total 4300 ml Balance -1420 ml Intake Oral 2880 ml Output Urine Total 4300 ml # Bowel Movements 3 General: Alert, Oriented X3, Cooperative HEENT: Atraumatic, PERRLA Neck: Supple, No JVD, No Thyromegaly Lungs: Normal Air Movement, Other (rhonchi) Heart: Regular Rate, Normal S1, Normal S2, No Murmurs Abdomen: Normal Bowel Sounds, Soft, No Tenderness, No Hepatosplenomegaly, No Masses Extremities: No Clubbing, No Cyanosis, Normal Pulses, No Tenderness/Swelling Skin: No Rashes, No Breakdown, No Significant Lesion Neuro: Normal Gait, Normal Speech, Strength at 5/5 X4 Ext, Normal Tone, Sensation Intact Psych/Mental Status: Mental Status NL, Mood NL A/P-Cardiology Admission Diagnosis Dyspnea Chronic atrial fibrillation Hypertension Hyperlipidemia Assessment/Plan Progressive exertional dyspnea likely multi-factorial, r/t chronic bronchial asthma, obesity hypoventilation syndrome, feeling better today Paroxysmal A fib and typical A flutter. PAF with RVR - (first documented on 09-30-18 at [facility]). Placed on flecainide at [facility] on 09/30/18. Underwent elec cardioversion for A Fl on 10/25/18 - currently maintaining SR - awaiting ablation OAC with Eliquis Minor coronary artery disease per cardiac catheterization of July 2006. MPI of 01/17/15 did not show ischemia or infarction, and LVEF was 54% History of bronchial asthma Hyperlipidemia, being treated and being followed by Dr. Broderick. Glucose intolerance being managed by Dr. Broderick Hypertension, under fair control Elevated body mass index of approximately 42 Echo 12/16/18 showed LVEF 60-65%, mild MR, RVSP 25 mmHg Minimal carotid arterial disease on carotid u/s of 03/09/17 H/o mild pulmonary hypertension probable related to obesity-hypoventilation syndrome due to body habitus. Sleep apnea syndrome for which is being treated with C-PAP therapy. History of overactive bladder and urinary incontinence. S/p botox injection September 30, 2017 by her urologist in [facility] in [place]. Left knee and R hip replacement. RBBB, chronic Chronic urinary incontinence treated with Botox bladder injections at [facility], Clinical Quality Measures DVT/VTE Risk/Contraindication: Risk Factor Score Per Nursin RFS Level Per Nursing on Admit: 4+=Very High ELLA JEAN-BAPTISET MD December 17, 2018 09:49
[2018-12-17] MEDS: meTOproloL SUCCINATE 50 MG (TOPROL XL) TAB PO SCH ×2 (09:56→19:52)
[2018-12-17 12:00] VITALS: BP 134/74
--- NOTE | 2018-12-17 13:07 | Progress Note-Hospitalist ---
Subjective HPI/CC On Admission Date Seen by Provider: December 17, 2018 Time Seen by Provider: 13:30 Chief complaint: Anasarca HPI: This is a 73[facility]WF clinic [facility] years with a PMH of recent cardiology issues of atrial fibrillation with rapid ventricular response and volume overload managed by Dr. Ang. Pt had failed ora diuretics and required IV Lasix of 80 Mg IV x1 yesterday and [address] Ang and Dr. Jerome consultation due to cardiac and pulmonary issues both being a factor in volume overload. Creatinine was monitored closely. Echocardiogram was ordered along with CT scan and Tums was given for acute reflux issues. At this current time Pt had output of 1500 yesterday afternoon after Lasix and an additional 2100 through the night and has already had a significant decrease in edema and SOB Subjective/Events-last exam Urinary output good with IV Lasix Bowels are moving Potassium 3.4 Daughter at the bedside from [facility] mental restarted IV steroids from asthma inflammation of the bronchioles Ambulating around in room a little bit and now back on oxygen Review of Systems General: Fatigue Pulmonary: Dyspnea Objective Exam Vital Signs Vital Signs Date Time Temp Pulse Resp B/P (MAP) Pulse Ox O2 Delivery O2 Flow Rate FiO2 12/17/18 13:00 78 12/17/18 08:00 Nasal Cannula 0.50 12/17/18 08:00 98.2 20 132/66 (88) 91 12/15/18 16:55 24 Capillary Refill : General Appearance: No Apparent Distress, WD/WN, Chronically ill, Obese HEENT: PERRL/EOMI, Normal ENT Inspection, Pharynx Normal, Moist Mucous Membranes Neck: Full Range of Motion, Normal Inspection, Non Tender Respiratory: Chest Non Tender, Lungs Clear, Normal Breath Sounds, No Accessory Muscle Use, No Respiratory Distress, Decreased Breath Sounds Cardiovascular: Regular Rate, Rhythm, No Gallop, No JVD, No Murmur, Normal Peripheral Pulses Gastrointestinal: Normal Bowel Sounds, No Organomegaly, No Pulsatile Mass, Non Tender, Soft Back: Normal Inspection, No CVA Tenderness, No Vertebral Tenderness Extremity: Normal Capillary Refill, Normal Inspection, Normal Range of Motion, Non Tender, No Calf Tenderness, Pedal Edema Neurologic/Psychiatric: Alert, Oriented x3, No Motor/Sensory Deficits, Normal Mood/Affect Skin: Normal Color, Warm/Dry Lymphatic: No Adenopathy Results/Procedures Lab Patient resulted labs reviewed. Assessment/Plan Assessment and Plan Assess & Plan/Chief Complaint Assessment: AE asthma Anasarca Volume overload with elevated BNP improved with diuresis with aggressive Lasix ADOLPH on CPAP Night time hypoxia on O2 at night HTN AF Borderline DM Recurrent UTI's managed with Botox injections of the urethra at [facility] Dr Law Chronic depression Severe insomnia Anticoagulation Plan: Monitor O2 sat Lasix Monitor creatinine Steroids Nebs Diagnosis/Problems Diagnosis/Problems (1) Anasarca Status: Acute (2) Respiratory insufficiency Status: Acute (3) ADOLPH on CPAP Status: Chronic (4) Recurrent UTI Status: Chronic (5) Obesity Status: Chronic Qualifiers: Obesity type: due to excess calories Obesity classification: adult class 3 (BMI >= 40) Body mass index: BMI 40.0-44.9 (6) Hyperlipidemia Status: Chronic Qualifiers: Hyperlipidemia type: mixed hyperlipidemia Qualified Codes: E78.2 - Mixed hyperlipidemia (7) Anxiety Status: Chronic (8) Insomnia Status: Chronic Qualifiers: Insomnia type: primary Qualified Codes: F51.01 - Primary insomnia (9) Hypertension Status: Chronic Qualifiers: Hypertension type: essential hypertension Qualified Codes: I10 - Essential (primary) hypertension (10) RESPIRATORY FAILURE, UNSP, UNSP W HYPOXIA OR HYPERCAPNIA Status: Chronic (11) Depression Status: Chronic Qualifiers: Depression Type: unspecified Qualified Codes: F32.9 - Major depressive disorder, single episode, unspecified (12) Acute asthma exacerbation Status: Acute Qualifiers: Asthma severity: moderate Asthma persistence: persistent Qualified Codes: J45.41 - Moderate persistent asthma with (acute) exacerbation (13) Atrial fibrillation Status: Chronic Qualifiers: Atrial fibrillation type: paroxysmal Qualified Codes: I48.0 - Paroxysmal atrial fibrillation Clinical Quality Measures DVT/VTE Risk/Contraindication: Risk Factor Score Per Nursin RFS Level Per Nursing on Admit: 4+=Very High ANAY DARNELL DO December 17, 2018 13:07
[2018-12-17 16:15] VITALS: BP 146/67
[2018-12-17] MEDS: MONTELUKAST 10 MG (SINGULAIR) TAB PO SCH (19:51)
[2018-12-17] MEDS: traZODone 50 MG (DESYREL) TAB PO SCH (19:51)
[2018-12-17] MEDS: ATORVASTATIN 20 MG (LIPITOR) TABLET PO SCH (19:51)
[2018-12-17] MEDS: doxAzosin 2 MG (CARDURA) TAB PO SCH (19:52)
[2018-12-17] MEDS: DILTIAZEM 120 MG (CARDIZEM CD) CAP PO SCH (19:52)
[2018-12-17 20:46] VITALS: BP 150/67
[2018-12-18] VITALS (7 sets, daily range): BP systolic 136–190; BP diastolic 61–77
[2018-12-18] MEDS: methylPREDNISolone 40 MG/ML (Solu-MEDROL) VIAL IV SCH ×3 (00:03→12:00)
[2018-12-18] MEDS: CATHETER FLUSH 10 ML SYR IV SCH ×4 (00:03→19:48)
[2018-12-18] MEDS: RT-ALBUTEROL/IPRATROPIUM 3 ML (DUONEB) VIAL INH SCH ×4 (02:35→20:52)
[2018-12-18] MEDS: FUROSEMIDE 40 MG/4 ML INJ (LASIX) IVP SCH ×2 (06:07→18:44)
[2018-12-18] MEDS: KCL 10 MEQ TAB (MICRO K) PO SCH (06:07)
[2018-12-18] MEDS: RT-ADVAIR HFA 45/21 MCG PER PUFF IH SCH ×2 (08:09→20:51)
[2018-12-18] MEDS: meTOproloL SUCCINATE 50 MG (TOPROL XL) TAB PO SCH ×2 (08:38→19:47)
[2018-12-18] MEDS: VITAMIN D3 5,000 UNITS (CHOLECALCIFEROL ) CAPSULE PO SCH (08:38)
[2018-12-18] MEDS: LORATADINE (CLARITIN) 10 MG TAB PO SCH (08:38)
[2018-12-18] MEDS: APIXABAN 5 MG (ELIQUIS) TABLET PO SCH ×2 (08:38→19:47)
[2018-12-18] MEDS: SERTRALINE 100 MG (ZOLOFT) TAB PO SCH (08:38)
[2018-12-18] MEDS: ESTRADIOL 1 MG TAB (ESTRACE) PO SCH (08:38)
[2018-12-18] MEDS: FLECAINIDE 100 MG (TAMBOCOR) TAB PO SCH ×2 (08:38→19:51)
[2018-12-18] MEDS: DILTIAZEM 240 MG (CARDIZEM CD) CAP PO SCH (08:45)
--- NOTE | 2018-12-18 11:26 | Progress Note-Hospitalist ---
Subjective HPI/CC On Admission Date Seen by Provider: December 18, 2018 Time Seen by Provider: 12:15 Chief complaint: Anasarca HPI: This is a 73yoWF clinic Pt of [facility] for 15 years with a PMH of recent cardiology issues of atrial fibrillation with rapid ventricular response and volume overload managed by Dr. Ang. Pt had failed ora diuretics and required IV Lasix of 80 Mg IV x1 yesterday and [address] Ang and Dr. Jerome consultation due to cardiac and pulmonary issues both being a factor in volume overload. Creatinine was monitored closely. Echocardiogram was ordered along with CT scan and Tums was given for acute reflux issues. At this current time Pt had output of 1500 yesterday afternoon after Lasix and an additional 2100 through the night and has already had a significant decrease in edema and SOB Subjective/Events-last exam Patient much improved Lower extremity edema much improved Will change steroids to once daily Elevated wbc from steroid effect Spoke to Dr Randle Elevated BP due to steroids but I have struggled with elevated BP as outpatient also recently BM+ Ambulating well Urinating well Review of Systems General: Fatigue Objective Exam Vital Signs Vital Signs Date Time Temp Pulse Resp B/P (MAP) Pulse Ox O2 Delivery O2 Flow Rate FiO2 12/18/18 15:17 90 Nasal Cannula 2.00 12/18/18 13:00 61 12/18/18 12:00 97.1 19 158/67 (97) 12/15/18 16:55 24 Capillary Refill : General Appearance: No Apparent Distress, WD/WN, Chronically ill, Obese HEENT: PERRL/EOMI, Normal ENT Inspection, Pharynx Normal, Moist Mucous Membranes Neck: Full Range of Motion, Normal Inspection, Non Tender Respiratory: Chest Non Tender, Lungs Clear, Normal Breath Sounds, No Accessory Muscle Use, No Respiratory Distress Cardiovascular: Regular Rate, Rhythm, No Gallop, No JVD, No Murmur, Normal Peripheral Pulses Gastrointestinal: Normal Bowel Sounds, No Organomegaly, No Pulsatile Mass, Non Tender, Soft Back: Normal Inspection, No CVA Tenderness, No Vertebral Tenderness Extremity: Normal Capillary Refill, Normal Inspection, Normal Range of Motion, Non Tender, No Calf Tenderness, Pedal Edema Neurologic/Psychiatric: Alert, Oriented x3, No Motor/Sensory Deficits, Normal M ood/Affect Skin: Normal Color, Warm/Dry Lymphatic: No Adenopathy Results/Procedures Lab Laboratory Tests 12/18/18 11:49 Patient resulted labs reviewed. Assessment/Plan Assessment and Plan Assess & Plan/Chief Complaint Assessment: AE asthma Anasarca much improved decreasing IV diuresis Volume overload with elevated BNP improved with diuresis with aggressive Lasix ADOLPH on CPAP Night time hypoxia on O2 at night HTN AF Borderline DM Recurrent UTI's managed with Botox injections of the urethra at [facility] Dr Law Chronic depression Severe insomnia Anticoagulation Plan: Monitor O2 sat Lasix Monitor creatinine Steroid taper to once daily Nebs Diagnosis/Problems Diagnosis/Problems (1) Anasarca Status: Acute (2) Respiratory insufficiency Status: Acute (3) ADOLPH on CPAP Status: Chronic (4) Recurrent UTI Status: Chronic (5) Obesity Status: Chronic Qualifiers: Obesity type: due to excess calories Obesity classification: adult class 3 (BMI >= 40) Body mass index: BMI 40.0-44.9 (6) Hyperlipidemia Status: Chronic Qualifiers: Hyperlipidemia type: mixed hyperlipidemia Qualified Codes: E78.2 - Mixed hyperlipidemia (7) Anxiety Status: Chronic (8) Insomnia Status: Chronic Qualifiers: Insomnia type: primary Qualified Codes: F51.01 - Primary insomnia (9) Hypertension Status: Chronic Qualifiers: Hypertension type: essential hypertension Qualified Codes: I10 - Essential (primary) hypertension (10) RESPIRATORY FAILURE, UNSP, UNSP W HYPOXIA OR HYPERCAPNIA Status: Chronic (11) Depression Status: Chronic Qualifiers: Depression Type: unspecified Qualified Codes: F32.9 - Major depressive disorder, single episode, unspecified (12) Acute asthma exacerbation Status: Acute Qualifiers: Asthma severity: moderate Asthma persistence: persistent Qualified Codes: J45.41 - Moderate persistent asthma with (acute) exacerbation (13) Atrial fibrillation Status: Chronic Qualifiers: Atrial fibrillation type: paroxysmal Qualified Codes: I48.0 - Paroxysmal atrial fibrillation Clinical Quality Measures DVT/VTE Risk/Contraindication: Risk Factor Score Per Nursin RFS Level Per Nursing on Admit: 4+=Very High ANAY DARNLEL DO December 18, 2018 11:26
--- NOTE | 2018-12-18 12:11 | Cardiology Progress Note ---
Subjective Date Seen by Provider: December 18, 2018 Time Seen by Provider: 12:09 Subjective/Events-last exam patient is sitting in a chair, feeling better, breathing better. No chest pain. Review of Systems General: No Chills, No Night Sweats, No Fatigue, No Malaise, No Appetite, No Other HEENT: No Head Aches, No Visual Changes, No Eye Pain, No Ear Pain, No Dysphasia, No Sinus Congestion, No Post Nasal Drip, No Sore Throat, No Other Pulmonary: Dyspnea; No Cough, No Pleuritic Chest Pain, No Other Cardiovascular: No: Chest Pain, Palpitations, Orthopnea, Paroxysmal Noc. Dyspnea, Edema, Lt Headedness, Other Objective-Cardiology Exam Last Set of Vital Signs Vital Signs 12/15/18 12/18/18 16:55 08:44 Temp 97.2 Pulse 56 Resp 20 B/P (MAP) 190/77 (114) Pulse Ox 92 O2 Delivery Room Air O2 Flow Rate 0.00 FiO2 24 Capillary Refill : I&O Intake and Output 12/18/18 00:00 Intake Total 2310 ml Output Total 3300 ml Balance -990 ml Intake Oral 2310 ml Output Urine Total 3300 ml General: Alert, Oriented X3, Cooperative HEENT: Atraumatic, PERRLA Neck: Supple, No JVD, No Thyromegaly Lungs: Normal Air Movement, Other (rhonchi) Heart: Normal S1, Normal S2, No Murmurs, Other (irregular rhythm) Abdomen: Normal Bowel Sounds, Soft, No Tenderness, No Hepatosplenomegaly, No Masses Extremities: No Clubbing, No Cyanosis, Normal Pulses, No Tenderness/Swelling Skin: No Rashes, No Breakdown, No Significant Lesion Neuro: Normal Gait, Normal Speech, Strength at 5/5 X4 Ext, Normal Tone, Sensation Intact Psych/Mental Status: Mental Status NL, Mood NL A/P-Cardiology Admission Diagnosis Dyspnea Chronic atrial fibrillation Hypertension Hyperlipidemia Assessment/Plan Progressive exertional dyspnea likely multi-factorial, r/t chronic bronchial asthma, obesity hypoventilation syndrome, improving, still on steroid tapering doses Hypertension, poorly controlled. Probably due to the steroid in addition to the underlying hypertension, I will add lisinopril and monitor tolerance and response Anasarca, better at this time, I will decrease Lasix to 20 mg IV twice daily and monitor tolerance and response. Paroxysmal A fib and typical A flutter. PAF with RVR - (first documented on 09-30-18 at [facility]). Placed on flecainide at [facility] on 09/30/18. Underwent elec cardioversion for A Fl on 10/25/18 - currently maintaining SR - awaiting ablation OAC with Eliquis Minor coronary artery disease per cardiac catheterization of July 2006. MPI of 01/17/15 did not show ischemia or infarction, and LVEF was 54% History of bronchial asthma Hyperlipidemia, being treated and being followed by Dr. Broderick. Glucose intolerance being managed by Dr. Broderick Elevated body mass index of approximately 42 Echo 12/16/18 showed LVEF 60-65%, mild MR, RVSP 25 mmHg Minimal carotid arterial disease on carotid u/s of 03/09/17 H/o mild pulmonary hypertension probable related to obesity-hypoventilation syndrome due to body habitus. Sleep apnea syndrome for which is being treated with C-PAP therapy. History of overactive bladder and urinary incontinence. S/p botox injection September 30, 2017 by her urologist in [facility] in [place]. Left knee and R hip replacement. RBBB, chronic Chronic urinary incontinence treated with Botox bladder injections at [facility], Clinical Quality Measures DVT/VTE Risk/Contraindication: Risk Factor Score Per Nursin RFS Level Per Nursing on Admit: 4+=Very High ELLA JEAN-BAPTISTE MD December 18, 2018 12:10
[2018-12-18 12:26] LABS: BASOPHILS % (AUTO) 0 % (0-10); EOSINOPHILS % (AUTO) 0 % (0-10); HEMATOCRIT 40 % (35-52); HEMOGLOBIN 13.7 G/DL (11.5-16.0); LYMPHOCYTES # (AUTO) 0.7 X 10^3 (1.0-4.0); LYMPHOCYTES % (AUTO) 4 % (12-44); MEAN CORPUSCULAR HEMOGLOBIN 29 PG (25-34); MEAN CORPUSCULAR HGB CONC 34 G/DL (32-36); MEAN CORPUSCULAR VOLUME 85 FL (80-99); MEAN PLATELET VOLUME 9.5 FL (7.4-10.4); MONOCYTES # (AUTO) 0.4 X 10^3 (0.0-1.0); MONOCYTES % (AUTO) 2 % (0-12); NEUTROPHILS # (AUTO) 16.9 X 10^3 (1.8-7.8); NEUTROPHILS % (AUTO) 94 % (42-75); PLATELET COUNT 232 10^3/uL (130-400); WHITE BLOOD COUNT 18.1 10^3/uL (4.3-11.0)
[2018-12-18 12:54] LABS: LYMPHOCYTES % (MANUAL) 2 %; NEUTROPHILS % (MANUAL) 98 %; RBC MORPH NORMAL
[2018-12-18 12:59] LABS: ALBUMIN 4.2 GM/DL (3.2-4.5); BILIRUBIN,TOTAL 0.5 MG/DL (0.1-1.0); CALCIUM 9.5 MG/DL (8.5-10.1); CREATININE SERUM 1.02 MG/DL (0.60-1.30); POTASSIUM 3.7 MMOL/L (3.6-5.0); TOTAL PROTEIN 6.6 GM/DL (6.4-8.2)
[2018-12-18] MEDS: lisINopril 10 MG (PRINIVIL) TABLET PO SCH (14:01)
[2018-12-18] MEDS: ATORVASTATIN 20 MG (LIPITOR) TABLET PO SCH (19:47)
[2018-12-18] MEDS: MONTELUKAST 10 MG (SINGULAIR) TAB PO SCH (19:47)
[2018-12-18] MEDS: traZODone 50 MG (DESYREL) TAB PO SCH (19:47)
[2018-12-18] MEDS: doxAzosin 2 MG (CARDURA) TAB PO SCH (19:48)
[2018-12-18] MEDS: DILTIAZEM 120 MG (CARDIZEM CD) CAP PO SCH (19:51)
[2018-12-18] MEDS ORDERED: LORazepam 0.5 MG (ATIVAN) TABLET ONE (23:17)
[2018-12-18] MEDS ORDERED: LORazepam 0.5 MG (ATIVAN) TABLET PO PRN (23:30)
[2018-12-19] VITALS (7 sets, daily range): BP systolic 129–151; BP diastolic 60–77
[2018-12-19] MEDS: RT-ALBUTEROL/IPRATROPIUM 3 ML (DUONEB) VIAL INH SCH ×4 (03:03→20:14)
[2018-12-19 05:43] LABS: BASOPHILS % (AUTO) 0 % (0-10); EOSINOPHILS % (AUTO) 0 % (0-10); HEMATOCRIT 39 % (35-52); HEMOGLOBIN 12.8 G/DL (11.5-16.0); LYMPHOCYTES # (AUTO) 1.4 X 10^3 (1.0-4.0); LYMPHOCYTES % (AUTO) 10 % (12-44); MEAN CORPUSCULAR HEMOGLOBIN 29 PG (25-34); MEAN CORPUSCULAR HGB CONC 33 G/DL (32-36); MEAN CORPUSCULAR VOLUME 87 FL (80-99); MEAN PLATELET VOLUME 9.4 FL (7.4-10.4); MONOCYTES # (AUTO) 1.1 X 10^3 (0.0-1.0); MONOCYTES % (AUTO) 8 % (0-12); NEUTROPHILS # (AUTO) 11.6 X 10^3 (1.8-7.8); NEUTROPHILS % (AUTO) 82 % (42-75); PLATELET COUNT 233 10^3/uL (130-400); RED CELL DISTRIBUTION WIDTH 15.3 % (10.0-14.5); WHITE BLOOD COUNT 14.1 10^3/uL (4.3-11.0)
[2018-12-19] MEDS: KCL 10 MEQ TAB (MICRO K) PO SCH (06:01)
[2018-12-19] MEDS: FUROSEMIDE 40 MG/4 ML INJ (LASIX) IVP SCH ×2 (06:01→17:48)
[2018-12-19] MEDS: CATHETER FLUSH 10 ML SYR IV SCH ×3 (06:01→20:37)
[2018-12-19 06:08] LABS: ALANINE AMINOTRANSFERASE 14 U/L (0-55); ALBUMIN 3.6 GM/DL (3.2-4.5); ALKALINE PHOSPHATASE 68 U/L (40-136); BILIRUBIN,TOTAL 0.3 MG/DL (0.1-1.0); BUN/CREATININE RATIO 36; CARBON DIOXIDE 25 MMOL/L (21-32); CHLORIDE 108 MMOL/L (98-107); CREATININE SERUM 0.78 MG/DL (0.60-1.30); GFR ESTIMATED > 60; GLUCOSE 134 MG/DL (70-105); POTASSIUM 3.5 MMOL/L (3.6-5.0); SODIUM 144 MMOL/L (135-145); TOTAL PROTEIN 5.5 GM/DL (6.4-8.2)
[2018-12-19] MEDS: SERTRALINE 100 MG (ZOLOFT) TAB PO SCH (08:41)
[2018-12-19] MEDS: APIXABAN 5 MG (ELIQUIS) TABLET PO SCH ×2 (08:41→20:36)
[2018-12-19] MEDS: ESTRADIOL 1 MG TAB (ESTRACE) PO SCH (08:41)
[2018-12-19] MEDS: VITAMIN D3 5,000 UNITS (CHOLECALCIFEROL ) CAPSULE PO SCH (08:41)
[2018-12-19] MEDS: lisINopril 10 MG (PRINIVIL) TABLET PO SCH (08:41)
[2018-12-19] MEDS: LORATADINE (CLARITIN) 10 MG TAB PO SCH (08:42)
[2018-12-19] MEDS: FLECAINIDE 100 MG (TAMBOCOR) TAB PO SCH ×2 (08:44→20:36)
--- NOTE | 2018-12-19 08:54 | Pulmonary Progress Note ---
Subjective Date Seen by a Provider: December 18, 2018 (Late entry for 12/18 today is 12/19 ) Time Seen by a Provider: 08:54 Subjective/Events-last exam Pt appears to be doing better. No complications noted. Sepsis Event Evaluation Height, Weight, BMI Height: " Weight: 279lbs. 2.9oz. 126.522243ct; 44.0 BMI Method:Stated Exam Exam Vital Signs Date Time Temp Pulse Resp B/P (MAP) Pulse Ox O2 Delivery O2 Flow Rate FiO2 12/19/18 08:24 96.9 50 22 134/60 (84) 93 Room Air 0.00 12/19/18 07:00 51 12/19/18 04:38 97.1 53 20 151/77 (101) 95 Nasal Cannula 2.00 12/19/18 03:03 94 NIV CPAP 2.00 12/19/18 01:00 50 12/19/18 00:52 96.8 52 22 143/71 (95) 96 Nasal Cannula 2.00 12/18/18 20:58 90 Room Air 12/18/18 20:52 90 Room Air 12/18/18 20:52 55 90 21 12/18/18 20:42 Nasal Cannula 2.00 12/18/18 19:08 98.6 54 18 176/71 (106) 95 Nasal Cannula 2.00 12/18/18 19:00 66 12/18/18 16:11 97.6 58 16 136/61 (86) 93 Nasal Cannula 2.00 12/18/18 15:17 90 Nasal Cannula 2.00 12/18/18 13:00 61 12/18/18 12:00 97.1 60 19 158/67 (97) 93 Nasal Cannula 2.00 I & O 12/19/18 07:00 Intake Total 3140 ml Output Total 2500 ml Balance 640 ml Height & Weight Height: 5'7." Weight: 279lbs. 2.9oz. 126.168075bk; 44.0 BMI Method:Stated General Appearance: No Apparent Distress, WD/WN, Chronically ill, Obese HEENT: PERRL/EOMI, Normal ENT Inspection, Pharynx Normal, Moist Mucous Membranes Neck: Full Range of Motion, Normal Inspection, Non Tender Respiratory: Chest Non Tender, Lungs Clear, Normal Breath Sounds, No Accessory Muscle Use, No Respiratory Distress Cardiovascular: Regular Rate, Rhythm, No Gallop, No JVD, No Murmur, Normal Peripheral Pulses Extremity: Normal Capillary Refill, Normal Inspection, Normal Range of Motion, Non Tender, No Calf Tenderness, Pedal Edema Neurologic/Psychiatric: Alert, Oriented x3, No Motor/Sensory Deficits, Normal Mood/Affect Skin: Normal Color, Warm/Dry Lymphatic: No Adenopathy Results Lab Laboratory Tests 12/18/18 11:49 12/19/18 05:17 Assessment/Plan Assessment/Plan Asthma AE -DuoNebs, Advair -Singulair, claritin - Solumedrol Pulmonary infiltrates with mediastinal lymphadenopathy r/o PNA -No fever, No leukocytosis -Probable airtrapping and pulmonary edema contributing to infiltration on CT scan Diastolic CHFAE EF 54% -Continue Lasix Obesity hypoventilation syndrome -Check ABG CAD -Cardiology following ADOLPH -Home CPAP machine Chronic RBBB ALEXSANDER LARSEN DO December 19, 2018 08:54
--- NOTE | 2018-12-19 08:54 | Pulmonary Progress Note ---
Subjective Time Seen by a Provider: 09:47 Subjective/Events-last exam PT feels improved. Sepsis Event Evaluation Height, Weight, BMI Height: 5'7.00" Weight: 279lbs. 2.9oz. 126.403257vh; 44.0 BMI Method:Stated Exam Exam Vital Signs Date Time Temp Pulse Resp B/P (MAP) Pulse Ox O2 Delivery O2 Flow Rate FiO2 12/19/18 08:24 96.9 50 22 134/60 (84) 93 Room Air 0.00 12/19/18 07:00 51 12/19/18 04:38 97.1 53 20 151/77 (101) 95 Nasal Cannula 2.00 12/19/18 03:03 94 NIV CPAP 2.00 12/19/18 01:00 50 12/19/18 00:52 96.8 52 22 143/71 (95) 96 Nasal Cannula 2.00 12/18/18 20:58 90 Room Air 12/18/18 20:52 90 Room Air 12/18/18 20:52 55 90 21 12/18/18 20:42 Nasal Cannula 2.00 12/18/18 19:08 98.6 54 18 176/71 (106) 95 Nasal Cannula 2.00 12/18/18 19:00 66 12/18/18 16:11 97.6 58 16 136/61 (86) 93 Nasal Cannula 2.00 12/18/18 15:17 90 Nasal Cannula 2.00 12/18/18 13:00 61 12/18/18 12:00 97.1 60 19 158/67 (97) 93 Nasal Cannula 2.00 I & O 12/19/18 07:00 Intake Total 3140 ml Output Total 2500 ml Balance 640 ml Height & Weight Height: 5'7.00" Weight: 279lbs. 2.9oz. 126.085502ac; 44.0 BMI Method:Stated General Appearance: No Apparent Distress, WD/WN, Chronically ill, Obese HEENT: PERRL/EOMI, Normal ENT Inspection, Pharynx Normal, Moist Mucous Membranes Neck: Full Range of Motion, Normal Inspection, Non Tender Respiratory: Chest Non Tender, Lungs Clear, Normal Breath Sounds, No Accessory Muscle Use, No Respiratory Distress Cardiovascular: Regular Rate, Rhythm, No Gallop, No JVD, No Murmur, Normal Peripheral Pulses Extremity: Normal Capillary Refill, Normal Inspection, Normal Range of Motion, Non Tender, No Calf Tenderness, Pedal Edema Neurologic/Psychiatric: Alert, Oriented x3, No Motor/Sensory Deficits, Normal Mood/Affect Skin: Normal Color, Warm/Dry Lymphatic: No Adenopathy Results Lab Laboratory Tests 12/18/18 11:49 12/19/18 05:17 Assessment/Plan Assessment/Plan Asthma AE -DuoNebs, Advair -Singulair, claritin - Solumedrol 40 Q 6 Pulmonary infiltrates with mediastinal lymphadenopathy r/o PNA -Repeat CXR this AM -No fever, No leukocytosis -Probable airtrapping and pulmonary edema contributing to infiltration on CT scan Diastolic CHFAE EF 54% -Continue Lasix Obesity hypoventilation syndrome -Check ABG CAD -Cardiology following ADOLPH -Home CPAP machine Chronic RBBB ALEXSANDER LARSEN DO December 19, 2018 08:54
[2018-12-19] MEDS: meTOproloL SUCCINATE 50 MG (TOPROL XL) TAB PO SCH ×2 (09:00→20:37)
[2018-12-19] MEDS ORDERED: methylPREDNISolone 40 MG/ML (Solu-MEDROL) VIAL IV SCH (09:00)
[2018-12-19] MEDS: DILTIAZEM 240 MG (CARDIZEM CD) CAP PO SCH (09:00)
[2018-12-19] MEDS: RT-ADVAIR HFA 45/21 MCG PER PUFF IH SCH ×2 (09:29→20:15)
--- NOTE | 2018-12-19 10:55 | NUR ---
DR JEAN-BAPTISTE NOTIFIED OF PT HR 50's-65 THIS AM. ORDER RECEIVED TO HOLD AM DOSE OF METOPROLOL AND DILTAZEM.
--- NOTE | 2018-12-19 10:55 | Cardiology Progress Note ---
Subjective Date Seen by Provider: December 19, 2018 Time Seen by Provider: 10:53 Subjective/Events-last exam patient is sitting in a chair, feeling better. Denied any chest pain, reporting improvement in her dyspnea Review of Systems General: No Chills, No Night Sweats, No Fatigue, No Malaise, No Appetite, No Other HEENT: No Head Aches, No Visual Changes, No Eye Pain, No Ear Pain, No Dysphasia, No Sinus Congestion, No Post Nasal Drip, No Sore Throat, No Other Pulmonary: Dyspnea; No Cough, No Pleuritic Chest Pain, No Other Cardiovascular: No: Chest Pain, Palpitations, Orthopnea, Paroxysmal Noc. Dyspnea, Edema, Lt Headedness, Other Objective-Cardiology Exam Last Set of Vital Signs Vital Signs 12/18/18 12/19/18 12/19/18 20:52 08:24 09:30 Temp 96.9 Pulse 50 Resp 22 B/P (MAP) 134/60 (84) Pulse Ox 90 O2 Delivery Room Air O2 Flow Rate 0.00 FiO2 21 Capillary Refill : I&O Intake and Output 12/19/18 00:00 Intake Total 3040 ml Output Total 1100 ml Balance 1940 ml Intake Oral 3040 ml Output Urine Total 1100 ml # Voids 3 # Bowel Movements 1 General: Alert, Oriented X3, Cooperative HEENT: Atraumatic, PERRLA Neck: Supple, No JVD, No Thyromegaly Lungs: Normal Air Movement, Other (rhonchi) Heart: Regular Rate, Normal S1, Normal S2, No Murmurs Abdomen: Normal Bowel Sounds, Soft, No Tenderness, No Hepatosplenomegaly, No Masses Extremities: No Clubbing, No Cyanosis, Normal Pulses, No Tenderness/Swelling Skin: No Rashes, No Breakdown, No Significant Lesion Neuro: Normal Gait, Normal Speech, Strength at 5/5 X4 Ext, Normal Tone, Sensation Intact Psych/Mental Status: Mental Status NL, Mood NL Results Lab Laboratory Tests 12/18/18 11:49 12/19/18 05:17 A/P-Cardiology Admission Diagnosis Dyspnea Chronic atrial fibrillation Hypertension Hyperlipidemia Assessment/Plan Progressive exertional dyspnea likely multi-factorial, r/t chronic bronchial asthma, obesity hypoventilation syndrome, improving, still on steroid tapering doses Hypertension, poorly controlled. Probably due to the steroid in addition to the underlying hypertension, started on lisinopril, noted to be bradycardic today, I will hold metoprolol and Cardizem for today and continue to monitor Anasarca, better at this time, I will decrease Lasix to 20 mg IV twice daily and monitor tolerance and response. Paroxysmal A fib and typical A flutter. PAF with RVR - (first documented on 09-30-18 at [facility]). Placed on flecainide at [facility] on 09/30/18. Underwent elec cardioversion for A Fl on 10/25/18 - currently maintaining SR - awaiting ablation OAC with Eliquis Minor coronary artery disease per cardiac catheterization of July 2006. MPI of 01/17/15 did not show ischemia or infarction, and LVEF was 54% History of bronchial asthma Hyperlipidemia, being treated and being followed by Dr. Broderick. Glucose intolerance being managed by Dr. Broderick Elevated body mass index of approximately 42 Echo 12/16/18 showed LVEF 60-65%, mild MR, RVSP 25 mmHg Minimal carotid arterial disease on carotid u/s of 03/09/17 H/o mild pulmonary hypertension probable related to obesity-hypoventilation syndrome due to body habitus. Sleep apnea syndrome for which is being treated with C-PAP therapy. History of overactive bladder and urinary incontinence. S/p botox injection September 30, 2017 by her urologist in [facility] in [place]. Left knee and R hip replacement. RBBB, chronic Chronic urinary incontinence treated with Botox bladder injections at [facility], Clinical Quality Measures DVT/VTE Risk/Contraindication: Risk Factor Score Per Nursin RFS Level Per Nursing on Admit: 4+=Very High ELLA JEAN-BAPTISTE MD December 19, 2018 10:55
[2018-12-19 11:37] LABS: ABG OXYGEN SATURATION 93 % (94-100); ABG PCO2 41 MMHG (35-45); ABG PH 7.43 (7.37-7.43); ABG PO2 67 MMHG (79-93); ABG TCO2 28.3 MMOL/L (21.0-31.0)
[2018-12-19 11:38] LABS: ALLENS TEST YES-POS; INSPIRED O2 ROOM AIR; PATIENT TEMP 98.2; VENTILATOR NO
--- NOTE | 2018-12-19 11:58 | Diagnostic Imaging Report ---
Indication: Cough. Atrial fibrillation with fluid retention. Comparison made to the CT study from 12/15/2018, prior chest radiograph from 03/17/2019. Findings: Mild prominence of the cardiac silhouette is unchanged. The central pulmonary vascularity appears slightly improved compared to the previous exam. There is no significant effusion. There is no alveolar consolidation. There is no pneumothorax. Impression: 1. Enlarged cardiac silhouette with mild interval improvement in prior pulmonary vascular prominence. There is no overt failure. Dictated by: Dictated on workstation # [id number]
--- NOTE | 2018-12-19 12:37 | Progress Note-Hospitalist ---
Subjective HPI/CC On Admission Date Seen by Provider: December 19, 2018 Time Seen by Provider: 12:00 Chief complaint: Anasarca HPI: This is a 73yoWF clinic Pt of [facility] for 15 years with a PMH of recent cardiology issues of atrial fibrillation with rapid ventricular response and volume overload managed by Dr. Ang. Pt had failed ora diuretics and required IV Lasix of 80 Mg IV x1 yesterday and [address] Ang and Dr. Jerome consultation due to cardiac and pulmonary issues both being a factor in volume overload. Creatinine was monitored closely. Echocardiogram was ordered along with CT scan and Tums was given for acute reflux issues. At this current time Pt had output of 1500 yesterday afternoon after Lasix and an additional 2100 through the night and has already had a significant decrease in edema and SOB Subjective/Events-last exam Patient improved overall ABG ordered from Dr Jerome and noted baseline room air non exertional PaO2 67 No CO2 retention Updated patient and daughter visiting [place] Checked meds and labs DC steroids wbc 14k down Potassium noted on supplement Checked meds and labs Review of Systems General: Fatigue Objective Exam Vital Signs Vital Signs Date Time Temp Pulse Resp B/P (MAP) Pulse Ox O2 Delivery O2 Flow Rate FiO2 12/19/18 12:44 58 12/19/18 09:30 90 Room Air 12/19/18 08:24 96.9 22 134/60 (84) 0.00 12/18/18 20:52 21 Capillary Refill : General Appearance: No Apparent Distress, WD/WN, Chronically ill, Obese HEENT: PERRL/EOMI, Normal ENT Inspection, Pharynx Normal, Moist Mucous Membr anes Neck: Full Range of Motion, Normal Inspection, Non Tender Respiratory: Chest Non Tender, Lungs Clear, Normal Breath Sounds, No Accessory Muscle Use, No Respiratory Distress Cardiovascular: Regular Rate, Rhythm, No Gallop, No JVD, No Murmur, Normal Peripheral Pulses Gastrointestinal: Normal Bowel Sounds, No Organomegaly, No Pulsatile Mass, Non Tender, Soft Back: Normal Inspection, No CVA Tenderness, No Vertebral Tenderness Extremity: Normal Capillary Refill, Normal Inspection, Normal Range of Motion, Non Tender, No Calf Tenderness, Pedal Edema Neurologic/Psychiatric: Alert, Oriented x3, No Motor/Sensory Deficits, Normal Mood/Affect Skin: Normal Color, Warm/Dry Lymphatic: No Adenopathy Results/Procedures Lab Laboratory Tests 12/19/18 05:17 Patient resulted labs reviewed. Assessment/Plan Assessment and Plan Assess & Plan/Chief Complaint Assessment: AE asthma Anasarca much improved decreasing IV diuresis Volume overload with elevated BNP improved with diuresis with aggressive Lasix ADOLPH on CPAP Night time hypoxia on O2 at night HTN AF Borderline DM Recurrent UTI's managed with Botox injections of the urethra at [facility] Dr Law Chronic depression Severe insomnia Anticoagulation Plan: Monitor O2 sat Lasix IV BID Monitor creatinine Steroid DC Nebs Diagnosis/Problems Diagnosis/Problems (1) Anasarca Status: Acute (2) Respiratory insufficiency Status: Acute (3) ADOLPH on CPAP Status: Chronic (4) Recurrent UTI Status: Chronic (5) Obesity Status: Chronic Qualifiers: Obesity type: due to excess calories Obesity classification: adult class 3 (BMI >= 40) Body mass index: BMI 40.0-44.9 (6) Hyperlipidemia Status: Chronic Qualifiers: Hyperlipidemia type: mixed hyperlipidemia Qualified Codes: E78.2 - Mixed hyperlipidemia (7) Anxiety Status: Chronic (8) Insomnia Status: Chronic Qualifiers: Insomnia type: primary Qualified Codes: F51.01 - Primary insomnia (9) Hypertension Status: Chronic Qualifiers: Hypertension type: essential hypertension Qualified Codes: I10 - Essential (primary) hypertension (10) RESPIRATORY FAILURE, UNSP, UNSP W HYPOXIA OR HYPERCAPNIA Status: Chronic (11) Depression Status: Chronic Qualifiers: Depression Type: unspecified Qualified Codes: F32.9 - Major depressive disorder, single episode, unspecified (12) Acute asthma exacerbation Status: Acute Qualifiers: Asthma severity: moderate Asthma persistence: persistent Qualified Codes: J45.41 - Moderate persistent asthma with (acute) exacerbation (13) Atrial fibrillation Status: Chronic Qualifiers: Atrial fibrillation type: paroxysmal Qualified Codes: I48.0 - Paroxysmal atrial fibrillation Clinical Quality Measures DVT/VTE Risk/Contraindication: Risk Factor Score Per Nursin RFS Level Per Nursing on Admit: 4+=Very High ANAY DARNELL DO December 19, 2018 12:37
[2018-12-19] MEDS: DILTIAZEM 120 MG (CARDIZEM CD) CAP PO SCH (20:36)
[2018-12-19] MEDS: ATORVASTATIN 20 MG (LIPITOR) TABLET PO SCH (20:37)
[2018-12-19] MEDS: traZODone 50 MG (DESYREL) TAB PO SCH (20:37)
[2018-12-19] MEDS: MONTELUKAST 10 MG (SINGULAIR) TAB PO SCH (20:37)
[2018-12-19] MEDS: doxAzosin 2 MG (CARDURA) TAB PO SCH (20:37)
[2018-12-20] MEDS: RT-ALBUTEROL/IPRATROPIUM 3 ML (DUONEB) VIAL INH SCH ×2 (03:44→09:32)
[2018-12-20 04:00] VITALS: BP 169/74
[2018-12-20 06:00] LABS: BASOPHILS % (AUTO) 0 % (0-10); EOSINOPHILS % (AUTO) 0 % (0-10); HEMATOCRIT 38 % (35-52); HEMOGLOBIN 12.8 G/DL (11.5-16.0); LYMPHOCYTES # (AUTO) 1.8 X 10^3 (1.0-4.0); LYMPHOCYTES % (AUTO) 16 % (12-44); MEAN CORPUSCULAR HEMOGLOBIN 29 PG (25-34); MEAN CORPUSCULAR HGB CONC 33 G/DL (32-36); MEAN CORPUSCULAR VOLUME 87 FL (80-99); MEAN PLATELET VOLUME 9.4 FL (7.4-10.4); MONOCYTES # (AUTO) 0.9 X 10^3 (0.0-1.0); MONOCYTES % (AUTO) 8 % (0-12); NEUTROPHILS # (AUTO) 8.3 X 10^3 (1.8-7.8); NEUTROPHILS % (AUTO) 76 % (42-75); PLATELET COUNT 209 10^3/uL (130-400)
[2018-12-20] MEDS: KCL 10 MEQ TAB (MICRO K) PO SCH (06:13)
[2018-12-20] MEDS: FUROSEMIDE 40 MG/4 ML INJ (LASIX) IVP SCH (06:13)
[2018-12-20] MEDS: CATHETER FLUSH 10 ML SYR IV SCH (06:14)
[2018-12-20 06:23] LABS: ALANINE AMINOTRANSFERASE 16 U/L (0-55); ALBUMIN 3.5 GM/DL (3.2-4.5); ALKALINE PHOSPHATASE 63 U/L (40-136); BILIRUBIN,TOTAL 0.4 MG/DL (0.1-1.0); BUN/CREATININE RATIO 33; CALCIUM 8.5 MG/DL (8.5-10.1); CARBON DIOXIDE 26 MMOL/L (21-32); CHLORIDE 107 MMOL/L (98-107); CREATININE SERUM 0.82 MG/DL (0.60-1.30); GFR ESTIMATED > 60; GLUCOSE 114 MG/DL (70-105); POTASSIUM 3.7 MMOL/L (3.6-5.0); SODIUM 141 MMOL/L (135-145); TOTAL PROTEIN 5.3 GM/DL (6.4-8.2)
[2018-12-20 08:21] VITALS: BP 161/69
--- NOTE | 2018-12-20 08:46 | Progress Note-Cardiology ---
Cardiology SOAP Progress Note Subjective: Sitting up in a chair at the bedside. States she is feeling better. Reports medical services is wanting to discharge her home today. No c/o CP, palpitations, syncope or near syncope. Feels breathing has improved. Objective: I&O/Vital Signs 12/19/18 12/20/18 12/20/18 12/20/18 23:54 01:00 03:45 04:00 Temp 96.9 98.1 Pulse 68 65 61 Resp 20 20 B/P (MAP) 134/63 (86) 169/74 (105) Pulse Ox 94 94 93 O2 Delivery NIV CPAP NIV CPAP NIV CPAP O2 Flow Rate 2.00 12/20/18 12/20/18 07:00 08:21 Temp 96.9 Pulse 57 58 Resp 20 B/P (MAP) 161/69 (99) Pulse Ox 92 O2 Delivery Room Air O2 Flow Rate 0.00 12/20/18 00:00 Intake Total 2490 ml Output Total 2100 ml Balance 390 ml Weight (Pounds): 282 Weight (Ounces): 2.9 Weight (Calculated Kilograms): 127.923239 Constitutional: AAO x 3, well-developed, well-nourished Respiratory: No accessory muscle use, No respiratory distress; chest expansion is symmetric, chest is bilaterally symmetric, lungs clear to auscultation Cardiovascular: regular rate-rhythm; No JVD; S1 and S2 Gastrointestional: soft, distended, audible bowel sounds Extremities: no lower extremity edema bilateral Neurologic/Psychiatric: grossly intact, power is 5/5 both on sides Skin: No rash, No ulcerations Results/Procedures: Labs Laboratory Tests 12/19/18 11:25: Blood Gas Puncture Site RT RAD, Blood Gas Patient Temperature 98.2, Arterial Blood pH 7.43, Arterial Blood Partial Pressure CO2 41, Arterial Blood Partial Pressure O2 67L, Arterial Blood HCO3 27, Arterial Blood Total CO2 28.3, Arterial Blood Oxygen Saturation 93L, Arterial Blood Base Excess 3.0H, Anish Test YES- POS, Blood Gas Ventilator Setting NO, Blood Gas Inspired Oxygen ROOM AIR 12/20/18 05:40: White Blood Count 11.0, Red Blood Count 4.44, Hemoglobin 12.8, Hematocrit 38, Mean Corpuscular Volume 87, Mean Corpuscular Hemoglobin 29, Mean Corpuscular Hemoglobin Concent 33, Red Cell Distribution Width 15.0H, Platelet Count 209, Mean Platelet Volume 9.4, Neutrophils (%) (Auto) 76H, Lymphocytes (%) (Auto) 16, Monocytes (%) (Auto) 8, Eosinophils (%) (Auto) 0, Basophils (%) (Auto) 0, Neutrophils # (Auto) 8.3H, Lymphocytes # (Auto) 1.8, Monocytes # (Auto) 0.9, Eosinophils # (Auto) 0.0, Basophils # (Auto) 0.0, Sodium Level 141, Potassium Level 3.7, Chloride Level 107, Carbon Dioxide Level 26, Anion Gap 8, Blood Urea Nitrogen 27H, Creatinine 0.82, Estimat Glomerular Filtration Rate > 60, BUN/Creatinine Ratio 33, Glucose Level 114H, Calcium Level 8.5, Corrected Calcium 8.9, Total Bilirubin 0.4, Aspartate Amino Transf (AST/SGOT) 11, Alanine Aminotransferase (ALT/SGPT) 16, Alkaline Phosphatase 63, Total Protein 5.3L, Albumin 3.5 A/P: Assessment: Progressive exertional dyspnea likely multi-factorial, r/t chronic bronchial asthma, obesity hypoventilation syndrome, ac mendez CHF Paroxysmal A fib and typical A flutter. PAF with RVR - (first documented on 09-30-18 at [facility]). Placed on flecainide at [facility] on 09/30/18. Underwent elec cardioversion for A Fl on 10/25/18 - currently maintaining SR - awaiting ablation OAC with Eliquis Minor coronary artery disease per cardiac catheterization of July 2006. MPI of 01/17/15 did not show ischemia or infarction, and LVEF was 54% History of bronchial asthma Hyperlipidemia, being treated and being followed by Dr. Broderick. Glucose intolerance being managed by Dr. Broderick Hypertension, under fair control Elevated body mass index of approximately 42 Echo 12/16/18 showed LVEF 60-65%, mild MR, RVSP 25 mmHg Minimal carotid arterial disease on carotid u/s of 03/09/17 H/o mild pulmonary hypertension probable related to obesity-hypoventilation syndrome due to body habitus. Sleep apnea syndrome for which is being treated with C-PAP therapy. History of overactive bladder and urinary incontinence. S/p botox injection September 30, 2017 by her urologist in [facility] in [place]. Left knee and R hip replacement. RBBB, chronic Chronic urinary incontinence treated with Botox bladder injections at [facility], [place] Plan: * D/t somewhat low HR (albeit asymptomatic) Calcium channel coy and BB have been held * HTN - we will restart BB * Change lasix to oral * F/U appt with lab in a week RASHAUN HORN December 20, 2018 08:46
[2018-12-20] MEDS: ESTRADIOL 1 MG TAB (ESTRACE) PO SCH (08:52)
[2018-12-20] MEDS: LORATADINE (CLARITIN) 10 MG TAB PO SCH (08:53)
[2018-12-20] MEDS: FLECAINIDE 100 MG (TAMBOCOR) TAB PO SCH (08:53)
[2018-12-20] MEDS: APIXABAN 5 MG (ELIQUIS) TABLET PO SCH (08:53)
[2018-12-20] MEDS: meTOproloL SUCCINATE 50 MG (TOPROL XL) TAB PO SCH (08:53)
[2018-12-20] MEDS: lisINopril 10 MG (PRINIVIL) TABLET PO SCH (08:53)
[2018-12-20] MEDS: VITAMIN D3 5,000 UNITS (CHOLECALCIFEROL ) CAPSULE PO SCH (08:53)
[2018-12-20] MEDS: SERTRALINE 100 MG (ZOLOFT) TAB PO SCH (08:53)
[2018-12-20] MEDS: DILTIAZEM 240 MG (CARDIZEM CD) CAP PO SCH (08:53)
[2018-12-20] MEDS ORDERED: LISI10TA2 PO (08:57)
[2018-12-20] MEDS ORDERED: POTA10TA6 PO (08:57)
[2018-12-20] MEDS ORDERED: METO-370 PO (08:57)
[2018-12-20] MEDS ORDERED: FURO-124 PO (08:57)
[2018-12-20] MEDS: RT-ADVAIR HFA 45/21 MCG PER PUFF IH SCH (09:35)
[2018-12-20] MEDS ORDERED: LORA10TA7 PO (09:55)
--- NOTE | 2018-12-20 09:57 | Discharge Summary-Hospitalist ---
Diagnosis/Chief Complaint Date of Admission December 16, 2018 at 14:16 Date of Discharge Discharge Date: December 20, 2018 Admission Diagnosis Assessment: AE asthma Anasarca Volume overload with elevated BNP improved with diuresis with aggressive Lasix ADOLPH on CPAP Night time hypoxia on O2 at night HTN AF Borderline DM Recurrent UTI's managed with Botox injections of the urethra at [facility] Dr Law Chronic depression Severe insomnia Anticoagulation Plan: Monitor O2 sat Lasix Monitor creatinine Steroids Nebs Discharge Diagnosis (1) Anasarca Status: Resolved (2) Respiratory insufficiency Status: Resolved (3) ADOLPH on CPAP Status: Chronic (4) Recurrent UTI Status: Chronic (5) Obesity Status: Chronic (6) Hyperlipidemia Status: Chronic (7) Anxiety Status: Chronic (8) Insomnia Status: Chronic (9) Hypertension Status: Chronic (10) RESPIRATORY FAILURE, UNSP, UNSP W HYPOXIA OR HYPERCAPNIA Status: Chronic (11) Depression Status: Chronic (12) Acute asthma exacerbation Status: Resolved (13) Atrial fibrillation Status: Chronic Discharge Summary Discharge Physical Exam Allergies: Coded Allergies: sulfamethoxazole (Verified Allergy, Intermediate, rash, SOB, 10/23/18) trimethoprim (Verified Allergy, Intermediate, rash, SOB, 10/23/18) cephalexin (Verified Allergy, Unknown, 10/02/18) Vitals & I&Os Vital Signs Date Time Temp Pulse Resp B/P (MAP) Pulse Ox O2 Delivery O2 Flow Rate FiO2 12/20/18 13:00 12/20/18 12:00 96.9 73 19 92 Room Air 0.00 12/18/18 20:52 21 General Appearance: No Apparent Distress, WD/WN, Chronically ill, Obese Respiratory: Chest Non Tender, Lungs Clear, Normal Breath Sounds, No Accessory Muscle Use, No Respiratory Distress Cardiovascular: Regular Rate, Rhythm, No Edema, No Gallop, No JVD, No Murmur, Normal Peripheral Pulses Neurologic/Psychiatric: Alert, Oriented x3, No Motor/Sensory Deficits, Normal Mood/Affect Hospital Course Was the Problem List Reviewed?: Yes Hospital course: Pt had a uneventful but lengthy hospital course for five days after admitted for anasarca, volume overload requiring IV diuresis. Cardiology was consulted and they followed along. A few medications were changed due to bradycardia although asymptomatic. Bowels remained normal, eating and drinking well, Pt stabilized on oxygen and nebulizer treatments. Dr. Jerome was consulted, placed on IV steroids with good results and chest X-ray and CT scan showed air trapping. Pt was maintained on oxygen led into the CPAP machine as she does at home. ABG on room air revealed PA O2 of 67 but no CO2 retention. No evidence of obesity hypoventilation syndrome. Pt was deemed stable for discharge diuretic therapy, she had completed her steroids while hospitalized. Pt will have close follow-up with me on along with Dr. Jerome and Dr. Ang. Labs (last 24 hrs) Laboratory Tests 12/20/18 05:40: White Blood Count 11.0, Red Blood Count 4.44, Hemoglobin 12.8, Hematocrit 38, Mean Corpuscular Volume 87, Mean Corpuscular Hemoglobin 29, Mean Corpuscular Hemoglobin Concent 33, Red Cell Distribution Width 15.0H, Platelet Count 209, Mean Platelet Volume 9.4, Neutrophils (%) (Auto) 76H, Lymphocytes (%) (Auto) 16, Monocytes (%) (Auto) 8, Eosinophils (%) (Auto) 0, Basophils (%) (Auto) 0, Neutrophils # (Auto) 8.3H, Lymphocytes # (Auto) 1.8, Monocytes # (Auto) 0.9, Eosinophils # (Auto) 0.0, Basophils # (Auto) 0.0, Sodium Level 141, Potassium Level 3.7, Chloride Level 107, Carbon Dioxide Level 26, Anion Gap 8, Blood Urea Nitrogen 27H, Creatinine 0.82, Estimat Glomerular Filtration Rate > 60, BUN/Creatinine Ratio 33, Glucose Level 114H, Calcium Level 8.5, Corrected Calcium 8.9, Total Bilirubin 0.4, Aspartate Amino Transf (AST/SGOT) 11, Alanine Aminotransferase (ALT/SGPT) 16, Alkaline Phosphatase 63, Total Protein 5.3L, Albumin 3.5 Patient resulted labs reviewed. Pending Labs Discussion & Recommendations Discharge Planning: <30 minutes discharge planning Discharge Home Medications: Active Scripts Active Loratadine 10 Mg Tablet 10 Mg PO DAILY Metoprolol Succinate 50 Mg Tab.er.24h 50 Mg PO DAILY Lasix (Furosemide) 40 Mg Tablet 40 Mg PO DAILY Klor-Con 10 (Potassium Chloride) 10 Meq Tablet.er 20 Meq PO DAILY@0700 Lisinopril 10 Mg Tablet 10 Mg PO DAILY Reported Albuterol Sulfate 2.5 Mg/3 Ml Vial.neb 2.5 Mg NEB Q4H PRN Proair Hfa (Albuterol Sulfate) 1 Puff Puff 2 Puff IH Q4H PRN 1 PUFF = 90 MCG Diltiazem ER (Diltiazem HCl) 240 Mg Capsule.er 240 Mg PO DAILY Flecainide Acetate 100 Mg Tablet 100 Mg PO BID Doxazosin Mesylate 2 Mg Tablet 2 Mg PO HS Montelukast Sodium 10 Mg Tablet 10 Mg PO HS Atorvastatin Calcium 20 Mg Tablet 20 Mg PO HS Trazodone HCl 50 Mg Tablet 50 Mg PO HS Sertraline HCl 100 Mg Tablet 150 Mg PO DAILY TAKES 1 & 1/2 (100MG) TABLET Eliquis (Apixaban) 5 Mg Tablet 5 Mg PO BID Fluticasone Propionate 16 Gm Kyburz.susp 2 Sprays NS HS PRN Advair 100-50 Diskus (Fluticasone/Salmeterol) 1 Each Blst.w.dev 1 Puff INH BID Vitamin D (Cholecalciferol) 5,000 Unit Capsule 5,000 Unit PO DAILY Estradiol Tablet (Estradiol) 0.5 Mg Tablet 0.5 Mg PO DAILY Instructions to patient/family Please see electronic discharge instructions given to patient. Clinical Quality Measures DVT/VTE Risk/Contraindication: Risk Factor Score Per Nursin RFS Level Per Nursing on Admit: 4+=Very High Problem Qualifiers (1) Obesity: Obesity type: due to excess calories Obesity classification: adult class 3 (BMI >= 40) Body mass index: BMI 40.0-44.9 (2) Hyperlipidemia: Hyperlipidemia type: mixed hyperlipidemia Qualified Codes: E78.2 - Mixed hyperlipidemia (3) Insomnia: Insomnia type: primary Qualified Codes: F51.01 - Primary insomnia (4) Hypertension: Hypertension type: essential hypertension Qualified Codes: I10 - Essential (primary) hypertension (5) Depression: Depression Type: unspecified Qualified Codes: F32.9 - Major depressive disorder, single episode, unspecified (6) Acute asthma exacerbation: Asthma severity: moderate Asthma persistence: persistent Qualified Codes: J45.41 - Moderate persistent asthma with (acute) exacerbation (7) Atrial fibrillation: Atrial fibrillation type: paroxysmal Qualified Codes: I48.0 - Paroxysmal atrial fibrillation ANAY DARNELL DO December 20, 2018 09:57
[2018-12-20 12:00] VITALS: BP 129/60
--- NOTE | 2018-12-20 13:43 | Pulmonary Progress Note ---
Subjective Time Seen by a Provider: 13:43 Sepsis Event Evaluation Height, Weight, BMI Height: 5'7.00" Weight: 282lbs. 2.9oz. 127.290977dm; 44.0 BMI Method:Stated Exam Exam Vital Signs Date Time Temp Pulse Resp B/P (MAP) Pulse Ox O2 Delivery O2 Flow Rate FiO2 12/20/18 12:00 96.9 73 19 129/60 (83) 92 Room Air 0.00 12/20/18 09:34 94 Room Air 12/20/18 08:21 96.9 58 20 161/69 (99) 92 Room Air 0.00 12/20/18 07:00 57 12/20/18 04:00 98.1 61 20 169/74 (105) 93 NIV CPAP 12/20/18 03:45 94 NIV CPAP 2.00 12/20/18 01:00 65 12/19/18 23:54 96.9 68 20 134/63 (86) 94 NIV CPAP 12/19/18 20:27 94 Nasal Cannula 2.00 12/19/18 20:15 93 Nasal Cannula 2.00 12/19/18 20:00 Nasal Cannula 2.00 12/19/18 20:00 98.1 59 20 143/64 (90) 93 Room Air 12/19/18 19:00 64 12/19/18 16:00 98.0 68 20 141/65 (90) 91 Room Air 12/19/18 14:47 90 Room Air I & O 12/20/18 07:00 Intake Total 2590 ml Output Total 2500 ml Balance 90 ml Height & Weight Height: 5'7.00" Weight: 282lbs. 2.9oz. 127.527959cd; 44.0 BMI Method:Stated General Appearance: No Apparent Distress, WD/WN, Chronically ill, Obese HEENT: PERRL/EOMI, Normal ENT Inspection, Pharynx Normal, Moist Mucous Membranes Neck: Full Range of Motion, Normal Inspection, Non Tender Respiratory: Chest Non Tender, Lungs Clear, Normal Breath Sounds, No Accessory Muscle Use, No Respiratory Distress Cardiovascular: Regular Rate, Rhythm, No Gallop, No JVD, No Murmur, Normal Peripheral Pulses Extremity: Normal Capillary Refill, Normal Inspection, Normal Range of Motion, Non Tender, No Calf Tenderness, Pedal Edema Neurologic/Psychiatric: Alert, Oriented x3, No Motor/Sensory Deficits, Normal Mood/Affect Skin: Normal Color, Warm/Dry Lymphatic: No Adenopathy Results Lab Laboratory Tests 12/19/18 05:17 12/20/18 05:40 Assessment/Plan Assessment/Plan Asthma AE -DuoNebs, Advair -Singulair, claritin Pulmonary infiltrates with mediastinal lymphadenopathy r/o PNA -Repeat CXR this AM -No fever, No leukocytosis -Probable airtrapping and pulmonary edema contributing to infiltration on CT scan Diastolic CHFAE EF 54% -Continue Lasix Obesity hypoventilation syndrome - ABG - C02 41 CAD -Cardiology following ADOLPH -Home CPAP machine Chronic RBBB ALEXSANDER LARSEN DO December 20, 2018 13:43
== END 2018-12-20 13:00 | disposition home or self-care (01) | DRG 291 ==
LOC: UNDOADMOB 14:33 → 4TH 14:33 → OBSVTOIN 12-16 14:16 → INTOOBSV 12-16 14:16 → UNDODISIN 12-20 13:00
PROVIDERS: ADMIT Internal Medicine; ATTEND Internal Medicine
DX: I11.0 Hypertensive heart disease with heart failure (principal); I50.31 Acute diastolic (congestive) heart failure; J45.41 Moderate persistent asthma with (acute) exacerbation; E66.2 Morbid (severe) obesity with alveolar hypoventilation; J96.10 Chronic respiratory failure, unspecified whether with hypoxia or hypercapnia; I48.3 Typical atrial flutter; Z68.41 Body mass index [BMI] 40.0-44.9, adult; I48.0 Paroxysmal atrial fibrillation; R73.03 Prediabetes; R91.8 Other nonspecific abnormal finding of lung field; R59.0 Localized enlarged lymph nodes; I27.29 Other secondary pulmonary hypertension; I25.10 Atherosclerotic heart disease of native coronary artery without angina pectoris; E78.2 Mixed hyperlipidemia; F51.01 Primary insomnia; F41.9 Anxiety disorder, unspecified; F32.9 Major depressive disorder, single episode, unspecified; I08.1 Rheumatic disorders of both mitral and tricuspid valves; I45.10 Unspecified right bundle-branch block; M19.91 Primary osteoarthritis, unspecified site; Z79.01 Long term (current) use of anticoagulants; Z96.652 Presence of left artificial knee joint; Z96.641 Presence of right artificial hip joint; Z87.440 Personal history of urinary (tract) infections
CPT/HCPCS: 36415; 36600; 71046; 71275; 80053; 82805; 83880; 84484; 85007; 85025; 85027; 93306; 94640; 94664; 94760; G0378

== ENCOUNTER 2019-01-30 07:16 | Day surgery (SDC) | payer MEDICARE ==
[2019-01-30] VITALS (16 sets, daily range): BP systolic 129–173; BP diastolic 61–90
[~2019-01-30] VITALS: Ht 170.2 cm; Wt 124.7 kg
[~2019-01-30 07:16] MED LIST changes: +ALBU2.5V4 NEB; +BUME1TAB4 PO; +DILT120C85 PO; +DILT240C87 PO; +DOXA2TAB2 PO; +FURO-124 PO; +LISI10TA2 PO; +LORA10TA7 PO; +POTA10TA36 PO; +POTA10TA6 PO; +RT-ALBUINH IH
[2019-01-30] MEDS ORDERED: NS IV 1000 ML 1,000 ML ONE ×2 (07:17→08:55)
[2019-01-30] MEDS ORDERED: LIDOCAINE 1% INJ 20 ML 20 ML VIAL ONE (07:17)
[2019-01-30] MEDS ORDERED: HEParin (CATH LAB) 2,000 ML IV ONE (07:17)
[2019-01-30] MEDS ORDERED: NS IV 1000 ML 1,000 ML IV SCH (07:18)
--- OUTSIDE RECORDS SUMMARY | 2019-01-30 07:21 | XMS REPORT | Encounter Summary ---
Author Author [facility] Organization [facility] Address Unknown Phone Unavailable Care Team Providers Care Plastering Supervisor Name Role Phone Alan Ramachandran MD Unavailable [...] Avila MD Unavailable Reason for Visit * Reason Comments General Question Encounter Details Care Team Description Date Type Department Shefali Herring MD [address] [facility] [address] [place] [address] General Question 11/07/2018 Telephone [facility] [address] [place] [address] Social History Date Tobacco Use Types Packs/Day Years Used Never Smoker Smokeless Tobacco: Never Used Drinks/Week oz/Week Comments Alcohol Use No Sex Assigned at Date Recorded Not on file Industry Job Start Date Occupation Not on file Not on file Not on file Travel End Travel History Travel Start No recent travel history available. documented as of this encounter Functional Status Date of Assessment [...] impairment: No documented as of this encounter Miscellaneous Notes * Telephone Encounter - Alisa Santiago - 11/07/2018 4:48 PM CDT Spoke with patient and she states that she has taken her last dose of the Pred a nd wants to wait for a week or so to see what happens with her bladder. She quincy l call us next week with a update * Telephone Encounter - Alisa Santiago - 11/07/2018 4:44 PM CDT ----- Message from Ana Oreilly sent at 11/04/2018 1:48 PM CDT ----- Regarding: Bladder Control Ms. Archer called to report that she has no bladder control and that she has been taking steroids because of her recent heart issues. She asked if stopping the steroids would help with her bladder control? If not, is there something else that she can take in conjunction with the steroids? Ana Jones documented in this encounter Plan of Treatment Care Team Description Date Type Specialty Ranjit Braun MD [address] [facility] [address] [place] [address] [phone] Urge incontinence 03/30/2019 Hospital Encounter documented as of this encounter Visit Diagnoses Not on filedocumented in this encounter
--- OUTSIDE RECORDS SUMMARY | 2019-01-30 07:21 | XMS REPORT | Clinical Summary ---
Author Author [facility] Organization [facility] Address Unknown Phone Unavailable Care Team Providers Care Fruit Farmer Name Role Phone Alan Ramachandran MD Unavailable Shefali Herring MD Unavailable Breanna Broderick DO PCP Jody Salazar RN Unavailable Unavailable Jass Loving MD Unavailable Carla Bernal MD Unavailable Unavailable Louise Knott MD Unavailable Park Han RN Unavailable Unavailable Breanna Lazo MD Unavailable Unavailable Marjorie Wilburn RN Unavailable Unavailable Gumaro Lynne MD Unavailable Glory Ford RN Unavailable Unavailable ManatiQuintin Canas RN Unavailable Unavailable Adeel Avila MD Unavailable Source Comments Some departments are not documenting in the electronic medical record. If you d o not see the information that you expected, contact Release of Information in [facility] department at [phone] for further assistan ce in locating additional records.[facility] Allergies Comments Active Allergy Reactions Severity Noted Date Sulfamethoxazole-Trimetho HIVES, Medium 11/07/2018 prim SHORTNESS OF BREATH, WHEEZING Medications End Date Status Medication Sig Dispensed [...] in a 24 hour period. Call your pet care associate if you have to use this medication. Active metoprolol tartrate Take one 180 tablet 3 (LOPRESSOR) 50 mg tablet tablet by 9 mouth twice daily. Active Problems Problem Noted Date Coronary artery disease 10/02/2018 Hypertension 10/02/2018 Depression (disease) 10/02/2018 Hyperlipidemia 10/02/2018 Obstructive sleep apnea on CPAP 10/02/2018 Asthma 10/02/2018 Paroxysmal atrial fibrillation 10/01/2018 Morbid obesity 10/01/2018 Urge urinary incontinence 10/11/2017 Overview: Added automatically from request for surgery [id number] Urinary urgency 04/23/2017 Overview: Added automatically from request for surgery [id number] Urge incontinence 07/28/2012 Overview: Anticholinergic refractory urgency [...] botox 04/21/2016 - 150u botox 07/13/2016 - [id number]; not performing timed and double voiding Last [...] Encounters Care Team Description Date Type Specialty Janie Calero RN Appointment Request (evaluation for EPS/ablation) 12/06/2018 Telephone Cardiology Shefali Herring MD General Question 11/07/2018 Telephone Urology from Last 3 Months Family History Medical [...] travel history available. Last Filed Vital Signs Reading Time Taken Comments Vital Sign 171/59 10/02/2018 8:18 AM CDT Blood Pressure 56 10/02/2018 8:18 AM CDT Pulse 36.9 C (98.4 F) 10/02/2018 8:18 AM CDT Temperature 16 03/19/2014 2:10 PM CDT Respiratory Rate 93% 10/02/2018 8:18 AM CDT Oxygen Saturation - - Inhaled Oxygen Concentration 121.6 kg (268 lb) 10/01/2018 2:00 PM MANAGER NON PROFIT Weight 170.2 cm (5' 7") 10/01/2018 2:00 PM MANAGER NON PROFIT Height 41.97 10/01/2018 2:00 PM MANAGER NON PROFIT Body Mass Index Plan of Treatment Care Team Description Date Type Specialty Ranjit Braun MD [address] [facility] [address] [place] [address] [phone] Urge incontinence 03/30/2019 Hospital Encounter Health Maintenance Due Date Last Done Comments HEPATITIS C SCREENING 1947 PHYSICAL (COMPREHENSIVE) 1954 EXAM DTAP/TDAP VACCINES (1 - 1965 Tdap) BREAST CANCER SCREENING 1987 COLORECTAL CANCER 1997 SCREENING SHINGLES RECOMBINANT 1997 VACCINE (1 of 2) OSTEOPOROSIS 2012 SCREENING/MONITORING PNEUMONIA (PCV13/PPSV23) 2012 VACCINES (1 of 2 - PCV13) INFLUENZA VACCINE 04/25/2019 Implants Device Identifier Shelf Expiration Date Model / Serial / Lot Implanted Type Area Manufactur er Hip Hip Knee Knee Results Not on filefrom Last 3 Months Insurance Type Payer Benefit Subscriber ID Effective Phone Address Plan / Dates Group Medicare MEDICARE MEDICARE xxxxxxxxxxx 2012-P PART A AND resent B PPO [facility] xxxxxxxxxxx 2012-P resent ([place]) [place] [address] Advance Directives Patient Bundle Sorter Explanation Type Date Recorded Advance 09/14/2012 12:00 AM Directive/DPOA Advance 09/14/2012 12:00 AM Directive/DPOA Date Inactivated Comments Code Status Date Activated 10/02/2018 3:17 PM Full Code 09/30/2018 4:42 PM Provider has discussed Code Status Yes w/Patient or Family?
--- OUTSIDE RECORDS SUMMARY | 2019-01-30 07:21 | XMS REPORT | Encounter Summary ---
Author Author [facility] Organization [facility] Address Unknown Phone Unavailable Care Team Providers Care Cream Tester Name Role Phone Alan Ramachandran MD Unavailable [...] Unavailable Reason for Visit * Reason Comments Appointment Request evaluation for EPS/ablation Encounter Details Care Team Description Date Type Department Janie Calero RN Appointment Request (evaluation for EPS/ablation) 12/06/2018 Telephone [facility] [address] [place] [address] Social History Date Tobacco Use Types Packs/Day [...] encounter Miscellaneous Notes * Telephone Encounter - Janie Calero RN - 12/06/2018 1:55 PM CDT reviewed with Dr Thompson - will see if she is able to come in at 1 pm and request records STAT * Telephone Encounter - Janie Calero RN - 12/06/2018 1:55 PM CDT ----- Message from Jaxson Gil sent at 11/29/2018 2:34 PM CDT ----- Regarding: New pt requesting MPE Carmelina Lima pt called requesting more information on MPE. Her able bodied watchman in [facility] wants her to have an ablation, but he will not be in office in December and can't sc hedule her until January. She had a cardioversion 10/31/18 and pt is anxious to get t his ablation, wanting it done as soon as possible. She says she is experiencing a lot of fluttering since the cardioversion didn't work. Just schedule first addie ilable with MPE? Thanks! documented in this encounter Plan of Treatment Care Team Description Date Type Specialty Ranjit Braun MD [address] [facility] [address] [place] [address] [phone] Urge incontinence 03/30/2019 Hospital Encounter documented as of this encounter Visit Diagnoses Not on filedocumented in this encounter
--- OUTSIDE RECORDS SUMMARY | 2019-01-30 07:23 | XMS REPORT | Encounter Summary ---
Author Author [facility] Organization [facility] Address Unknown Phone Unavailable Care Team Providers Care Client Services Analyst Name Role Phone Alan Ramachandran MD [...] Date Type Department Shefali Herring MD [address] [facility] [address] [place] [address] [phone] Gumaro Dietrich MD [address] [place] [address] [phone] Amita Kate MD [address] [place] [address] [phone] Atrial fibrillation with rapid ventricular response (HCC) 09/30/2018 [facility] 10/02/2018 [address] [place] [address] Social History Date Tobacco Use Types Packs/Day Years Used Never Smoker Smokeless Tobacco: Never Used Drinks/Week oz/Week Comments Alcohol Use No Sex Assigned at Date Recorded Not on file Industry Job Start Date Occupation Not on file Not on file Not on file Travel End Travel History Travel Start No recent travel history available. documented as of this encounter Last Filed Vital Signs Reading Time Taken Comments Vital Sign 171/59 10/02/2018 8:18 AM CDT Blood Pressure 56 10/02/2018 8:18 AM CDT Pulse 36.9 C (98.4 F) 10/02/2018 8:18 AM CDT Temperature - - Respiratory Rate 93% 10/02/2018 8:18 AM CDT Oxygen Saturation - - Inhaled Oxygen Concentration 121.6 kg (268 lb) 10/01/2018 2:00 PM [employer] Weight 170.2 cm (5' 7") 10/01/2018 2:00 PM [employer] Height 41.97 10/01/2018 2:00 PM [employer] Body Mass Index documented in this encounter Functional Status Date [...] date: 09/30/2018 Discharge date: 10/02/2018 Attending Physician: Amita Kate MD Service: [email or web address] [facility] Q - 7052 Physician Summary completed by: Amita Kate MD Reason for hospitalization: post-procedural atrial fibrillation with rapid ventr icular response Significant PMH: Past Medical History: Diagnosis [...] murmurs audible. Appears and feels warm and well-perfused . Irregular rhythm. GI: Abdomen soft. Non-tender to palpation. MSK: No visible joint swelling. No obvious deformities. Normal bulk and tone. NEURO: CNII-XII intact grossly. Strength 5/5 in muscle groups tested. HEME/LYMPH: No palpable submandibular, anterior/posterior cervical lymphadenopat hy. SKIN: Warm. Dry. PSYCH: Mood euthymic. Affect [...] on 09/30/2018 with poor depth of inspiration wit h bibasilar atelectasis. 10/01/18 - 2-D + DOPPLER ECHOCARDIOGRAM Location Performed: [facility] Status: Final result Procedure Ordered By: Megan Cutler MD [phone] Referring Provider: Interpreting Physician: Aram Rojas MD Fellow: Location of Interp: [facility] Case Picker: Lindsey Diaz Machine: [employer]el [id number] Indications: Atrial fibrillation Study done at patient [...] wall thickness and mass. Moderately dilated. Normal ejecti on fraction. Normal left ventricular diastolic function. Normal left atrial pres sure. Right Ventricle Normal wall thickness and septal motion. Mildly dilated. Mildly reduced ejection fraction. Left Atrium Moderately dilated. Right Atrium Normal size. IVC/SVC Normal central venous pressure (0-5 mm Hg). Mitral Valve Normal valve structure. No stenosis. Mild regurgitation. Tricuspid Valve The tricuspid valve was not well seen. No stenosis. Mild regurgi tation. Aortic Valve Normal valve structure. No stenosis. No regurgitation. Pulmonary The pulmonic valve was not well seen. Normal valve structure. No steno sis. No regurgitation. Aorta Normal aorta. Pericardium Pericardium [...] M-Mode Measurements (Normal Ranges) (Range) RV Basal Shirlene 5.52 cm (2.5 - 4.1) RV Mid Shirlene 3.97 cm (1.9 - 3.5) RAA 22.64 [...] peak velocity 1.86 m/s Signed at 1538 [employer] Brief Hospital Course: The patient was admitted and the following issues were a ddressed during this hospitalization: (with pertinent details). Patient was admitted following urologic procedure (botox injection for urge inco ntinence) for atrial fibrillation with rapid ventricular response. Patient sympt omatic with palpitations. She had a similar episode of symptomatic afib followin g another procedure that resolved. Not on anticoagulation currently. She was started on IV diltiazem for rate control and lovenox for anticoagulatio n (chadsvasc score of 3). Cardiology was consulted. She converted to sinus rhyth m and then became bradycardic to the 40s-50s. She was asymptomatic. She was taking metoprolol 100mg BID prior to admission, this was restarted but d ecreased to 50mg BID due to bradycardia and she tolerated this well. She was tra nsitioned to [place]. We recommended that she follow up with her primary travel accommodations rater and have a o [facility] or some sort of longer-term atrial fibrillation monitoring in order to dete rmine whether she needed snf anticoagulation or if afib was truly ollie-pro cedural and limited. Cardiology gave her flecainide for abortive therapy if symptoms recur. Condition at Discharge: Stable Discharge Diagnoses: Hospital Problems Active Problems Paroxysmal atrial fibrillation (HCC) Morbid obesity (HCC) Coronary artery disease Hypertension Depression (disease) Hyperlipidemia Obstructive sleep apnea on CPAP Asthma Resolved Problems * (Principal) RESOLVED: Atrial fibrillation with rapid ventricular response (HC C) Surgical Procedures: None Significant Diagnostic Studies and Procedures: noted in brief hospital course Consults: Cardiology Patient Disposition: Home Patient instructions/medications: Activity as Tolerated It is important to keep increasing your activity level after you leave the hosp ital. Moving around can help prevent blood clots, lung infection (pneumonia) an d other problems. Gradually increasing the number of times you are up moving ar ound will help you return to your normal activity level more quickly. Continue to increase the number of times you are up to the chair and walking daily to ret urn to your normal activity level. Begin to work toward your normal activity lev el at discharge Report These Signs and Symptoms Please contact your doctor if you have any of the following symptoms: uncontrol led pain, difficulty breathing or chest pain. Questions About Your Stay For questions or concerns regarding your hospital stay. Call [phone] Discharging attending physician: AMITA KATE [[id number]] Regular Diet You have no dietary restriction. Please continue with a healthy balanced diet. Current Discharge Medication List START taking these medications Details apixaban (ELIQUIS) 5 mg tablet Take one tablet by mouth twice daily. Qty: 60 tablet, Refills: 1 PRESCRIPTION TYPE: Normal flecainide (TAMBOCOR) 150 mg tablet Take two tablets by mouth daily as needed. F or palpitations and symptoms of atrial fibrillation. Do not take more than once in a 24 hour period. Call your travel accommodations rater if you have to use this medication. Qty: 6 tablet, Refills: 0 PRESCRIPTION TYPE: Normal CONTINUE these medications which have been CHANGED or REFILLED Details metoprolol tartrate (LOPRESSOR) 50 mg tablet Take one tablet by mouth twice ernie y. Qty: 180 tablet, Refills: 3 PRESCRIPTION TYPE: Normal CONTINUE these medications which have NOT CHANGED Details albuterol (VENTOLIN HFA, PROAIR HFA, PROVENTIL HFA) 90 mcg/actuation inhaler Inh gerber 1-2 Puffs by mouth into the lungs every 6 hours as needed for Wheezing or Sh ortness of Breath. Shake well before use. PRESCRIPTION [...] unit tablet Take 5,000 Units by mouth renaldo ly. PRESCRIPTION TYPE: Historical Med estradiol (ESTRACE) 0.01 % (0.1 mg/g) vaginal cream INSERT OR APPLY TO VAGINAL A JACINTO DAILY FOR SEVEN DAYS THEN TWICE A WEEK Qty: 1 Container, Refills: 11 PRESCRIPTION TYPE: Normal estradiol (ESTRACE) 0.5 mg tablet Take 0.5 mg by mouth daily. PRESCRIPTION TYPE: Historical Med fluticasone (FLONASE) 50 mcg/actuation nasal spray Apply 2 sprays to each nostri l as directed daily as needed. Shake bottle [...] a follow up appointment with your primary travel accommodations rater in the n ext 2-4 weeks. Pending items needing follow up: 1. Ambulatory cardiac monitoring 2. Determination of anticoagulation timeline Signed: Amita Kate MD 10/05/2018 cc: Primary Care Physician: Breanna Broderick Verified Referring physicians: Breanna Broderick DO Additional provider(s): Dr. Елена Ang [address] [place] [phone] documented in this encounter Discharge Instructions * Patient Instructions* Karly Mcmillan RN - 09/30/2018 10:54 AM [employer] Discharge Instructions: After Your Surgery Youve just had surgery. During surgery, you were given medicine called anesth esia to keep you relaxed and free of pain. After surgery, you may have some pain or nausea. This is common. Here are some tips for feeling better and getting we ll after surgery. Stay on schedule with your [...] or she can watch for problems and h elp keep you safe. Be sure to go to all follow-up visits with your healthcare provider. And rest af ter your surgery for as long as your healthcare provider tells you to. Coping with pain If you have pain after surgery, pain medicine will help you feel better. Take it as told, before pain becomes severe. Also, ask your healthcare provider or phar macist about other ways to control pain. This might be with heat, ice, or relaxa tion. And follow any other instructions your surgeon or nurse gives you. Tips for taking pain medicine To get the best relief possible, remember these points: Pain medicines can upset your stomach. Taking them with a little food may hel p. Most pain relievers taken by mouth need at least 20 to 30 minutes to start to work. Taking medicine on a schedule can help you remember to take it. Try to time y our medicine so that you can take it before starting an activity. This might be before you get dressed, go for a walk, or sit down for dinner. Constipation is a common side effect of pain medicines. Call your healthcare provider before taking any medicines such as laxatives or stool softeners to hel p ease constipation. Also ask if you should skip any foods. Drinkinglots of fl uids andeating foodssuch as fruits and vegetables that are high in fiber can also help. Remember, do not take laxatives unless your surgeon has prescribed t hem. Drinking alcohol and taking pain medicine can cause dizziness and slow your b reathing. It can even be deadly. Do not drink alcohol while taking pain medicine . Pain medicine can make you react more slowly to things. Do not drive or run m achinery while taking pain medicine. Your healthcare providermay tell you to take acetaminophen to help ease your p ain. Ask him or her how much you are supposed to take each day. Acetaminophen or other pain relievers may interact with your prescription medicines or other ove b-ypi-kuuhzmv (OTC) medicines. Some prescription medicines have acetaminophen an d other ingredients.Using both prescription and OTC acetaminophenfor painc an cause you to overdose. Readthe labels on your OTC medicineswith care. Thi s will help youto clearly know the list of ingredients, how much to take, and anywarnings. It may also help you not take too muchacetaminophen.If you jarvis ve questions or do not understand the information, ask your pharmacist or health care provider to explain it to you before you take the OTC medicine. Managing nausea Some people have an upset stomach after surgery. This is often because of anesth esia, pain, or pain medicine, or the stress [...] tell you when to eat and how much . Start off with clear liquids and soup. They are easier to digest. Next try semi-solid foods, such as mashed potatoes, applesauce, and gelatin, as you feel ready. Slowly move to solid foods. Dont eat fatty, rich, or spicy foods at first. Do not force yourself to have 3 large meals a day. Instead eat smaller amount s more often. Take pain medicines with a small amount of solid food, such as crackers or to ast, to avoid nausea. Call your surgeon if You still have pain an hour after taking medicine. The medicine may not be st [facility] enough. You feel too sleepy, dizzy, or groggy. The medicine may be too strong. You have side effects like nausea, vomiting, or skin changes, such as rash, i tching, or hives. If you have obstructive sleep apnea You were given anesthesia medicine during surgery to keep you comfortable and fr ee of pain. After surgery, you may have more apnea spells because of this medici ne and other medicines you were given. The spells may last longer than usual. At home: Keep using the continuous positive airway pressure (CPAP) device when you sle ep. Unless your healthcare provider tells you not to, use it when you sleep, day or night. CPAP is a common device used to treat obstructive sleep apnea. Talk with your provider before taking any pain medicine, muscle relaxants, or sedatives. Your provider will tell you about the possible dangers of taking the se medicines. Date Last Reviewed: 06/25/201619991728-3232 [employer]. [address] [place] [address], [place], [place] [address]. All rights reserved. This information is not intended as a substitute for pro fessional medical care. Always follow your healthcare professional's instruction s. L [employer] PLASTIC HEATER * Appointments* Amita Kate MD - 10/02/2018 10:00 AM CDT Please schedule a follow up appointment with your primary travel accommodations rater in the in xt 2-4 weeks. * Pre-Anesthesia Patient Instructions* Lucille Gomez RN - 09/06/2018 12:11 PM [employer] GENERAL INFORMATION Before you come to the [...] and any other valuables at home. The [facility] is not responsible for the loss or breakage of persona [employer] items. Remove nail lebanese, makeup and all jewelry (including piercings) before comin g to the hospital. The morning of your procedure: brush your teeth and tongue do not smoke do not shave the area where you will have surgery What to bring to the hospital ID/ Insurance Card Supervisor Prop Making card Official documents for legal guardianship Copy of your Living Will, Advanced Directives, and/or Durable Power of Attorn ey Small bag with a few personal belongings CPAP/BiPAP machine (including all supplies) Cases for glasses/hearing aids/contact lens (bring solutions for contacts) Dress in clean, loose, comfortable clothing Eating or drinking before surgery Do not eat or drink anything after 11:00 p.m. the day before your procedure ( including gum, mints, candy, or chewing tobacco) OR follow the specific instruct ions you were given by your Surgeon. You may have WATER ONLY up to 2 hours before arriving at the hospital. Other instructions Notify your surgeon if: you become ill with a cough, fever, sore throat, nausea, vomiting or flu-like symptoms you have any open wounds/sores that are red, painful, draining, or are new si nce you last saw the doctor you need to cancel your procedure You will receive a call with your surgery arrival time from between 2:30pm an d 4:30pm the last business day before your procedure. If you do not receive a c all, please call [phone] before 4:30pm or [phone] after 4:30pm. Notify us at [facility]: if you need to cancel your procedure if you are going to [place] [address] Park in the Parking Garage, located directly across from the main entrance to the hospital. [employer] parking is available from 7 AM to 4 PM Wednesday through Wednesday. Enter through the ground floor [facility] entrance and check in at the Inf ormation Desk in the lobby. They will validate your parking ticket and direct you to the next location. If you are a woman between the ages of 10 and 55, and have not had a hysterec matheus, you will be asked for a urine sample prior to surgery. Please do not urin ate before arriving in the Surgery Waiting Room. Once there, check in and let t he attendant know if you need to provide a sample. L [employer] PLASTIC HEATER * Pre-Anesthesia Medication Instructions* Lucille Gomez RN - 09/06/2018 12:13 PM [employer] YOUR MEDICATIONS: albuterol (VENTOLIN HFA, PROAIR HFA, PROVENTIL HFA) 90 mcg/actuation inhaler Inhale 1-2 Puffs by mouth into the lungs every 6 hours as needed for Wheezing o r Shortness of Breath. Shake well before use. amLODIPine/benazepril(+) (LOTREL) 10/20 mg tablet 1 Tab Take 1 Tab by mouth daily. aspirin 81 mg chewable tablet Take 81 mg by mouth every morning. ATORVASTATIN CALCIUM (LIPITOR PO) Take 1 Tab by mouth at bedtime daily. cholecalciferol (Vitamin D3) (VITAMIN D-3) 1,000 units tablet Take 5,000 Uni ts by mouth every morning. estradiol (ESTRACE) 0.01 % (0.1 mg/g) vaginal cream INSERT OR APPLY TO VAGIN AL AREA DAILY FOR SEVEN DAYS THEN TWICE A WEEK estradiol (ESTRACE) 0.5 mg tablet Take 0.5 mg by mouth daily. ezetimibe/simvastatin (VYTORIN) 10/20 mg tablet 1 Tab Take 1 Tab by mouth at bedtime daily. fluticasone (FLONASE) 50 mcg/actuation nasal spray Apply 2 Sprays to each no stril as directed twice daily. Shake bottle gently before using. FLUTICASONE/SALMETEROL (ADVAIR DISKUS IN) Inhale 1 Puff by mouth into the colette ngs as Needed. metoprolol (LOPRESSOR) 100 mg tablet Take 100 mg by mouth twice daily. montelukast (SINGULAIR) 10 mg tablet Take 10 mg by mouth at bedtime daily. sertraline (ZOLOFT) 100 mg tablet Take 150 mg by mouth every morning. traZODone (DESYREL) 50 mg tablet Take 50 mg by mouth at bedtime daily. triamterene/hydrochlorothiazide (MAXZIDE) 37.5/25 mg tablet Take 1 Tab by mo uth every morning. YOUR MEDICATION INSTRUCTIONS FOR SURGERY: Before surgery Do not start any new vitamins, herbals, and natural supplements 14 days before s urgery: Stop the following medications 7 days before [...] these medications with a sip (1-2 ounces) o f water: Inhalers and nasal sprays Singulair Metoprolol Sertraline Other information Before surgery, please contact MARIANO Adkins with any medicine updates or questions . E-mail: [email or web address] Before going home from the hospital, please ask your doctor when you should re-s tart your medicines that were stopped before surgery. L [employer] P[employer]IC HEATER documented in this encounter Medications at Time [...] in a 24 hour period. Call your travel accommodations rater if you have to use this medication. [...] as of this encounter Progress Notes * Amita Kate MD - 10/02/2018 1:01 PM CDT Discharge day note: Patient seen and examined on rounds. Vital signs stable. Physical exam unchang ed from prior. Patient remains in sinus rhythm today. Discussed discharge plan s. Patient given new prescriptions. Patient to follow-up with her outside card iologist for Zio patch. Return precautions discussed. Greater than 31 minutes spent in discharge planning including discussion with jeet campos, placement of discharge orders, documentation of discharge summary. Amita Kate MD [facility] Q- 7052 * Angle Montgomery RN - [...] wheel pt to lobby. * Harris Mckenzie, IVY - 10/02/2018 11:27 AM CDT Pharmacy Anticoagulation Teaching Mame Lacy Suzi was provided with both verbal and written drug information about Apixaban. Discussion with the patient included: the medication regimen, dosing, monitoring, possible adverse effects, food/drug interactions to be aware of and OTC/herbal medication use. Emphasis was placed on the importance of medication compliance. The patient was also encouraged to contact the pharmacist with any f williamther questions. Harris Mckenzie PHARMD 10/02/2018 * Belia Hansen MD - 10/01/2018 5:16 PM [employer] Cardiology progress note. Subjective: No acute events overnight. Patient converted to sinus rhythm. However she is s inus bradycardia currently. Current Facility-Administered Medications Medication Dose Route Frequency Provider Last Rate Last Dose acetaminophen (TYLENOL) tablet 650 mg 650 mg Oral Q6H PRN Gumaro Dietrich MD 650 mg at 10/01/18 1210 albuterol (PROAIR HFA, VENTOLIN HFA, or PROVENTIL HFA) inhaler 1-2 puff 1-2 puff Inhalation Q6H PRN Gumaro Dietrich MD amLODIPine (NORVASC) tablet 10 mg 10 mg Oral QDAY Gumaro Dietrich MD 10 mg at 10/01/18 1003 aspirin EC tablet 81 mg 81 mg Oral QDAY Gumaro Dietrich MD 81 mg at 0 10/01/18 1004 atorvastatin (LIPITOR) tablet 80 mg 80 mg Oral QHS Gumaro Dietrich MD 80 mg at 09/30/18 210 cholecalciferol (VITAMIN D-3) tablet 5,000 Units 5,000 Units Oral QDAY Jonnyl Amita choudhary MD 5,000 Units at 10/01/18 1210 diltiazem (cardIZEM) 125 mg in sodium chloride 0.9% (NS) 125 mL IV drip (std conc) 5-15 mg/hr Intravenous TITRATE Gumaro Dietrich MD Stopped at 10/01 0221 enoxaparin (LOVENOX) syringe 120 mg 1 mg/kg Subcutaneous Q12H* Eliz Dietrich MD 120 mg at 10/01/18 0605 estradiol (ESTRACE) tablet 0.5 mg 0.5 mg Oral QDAY Gumaro Dietrich MD 0.5 mg at 10/01/18 1005 metoprolol tartrate (LOPRESSOR) tablet 50 mg 50 mg Oral BID Amita Kate MD montelukast (SINGULAIR) tablet 10 mg 10 mg Oral QHS Gumaro Dietrich MD 10 mg at 09/30/18 210 ondansetron (ZOFRAN) injection 4 mg 4 mg Intravenous Q6H PRN Nan Dietrich MD sertraline (ZOLOFT) tablet 150 mg 150 mg Oral QASosa8 Gumaro Dietrich MD 150 mg at 10/01/18 1004 traZODone (DESYREL) tablet 50 mg 50 mg Oral QHS Gumaro Dietrich MD 50 mg at 09/30/18 2105 triamterene-hydrochlorothiazide (MAXZIDE) 37.5-25 mg tablet 1 tablet 1 tabl et Oral QASosa8 Gumaro Dietrich MD 1 tablet at 10/01/18 [...] will lower the dose to 50 mg t wice daily for today. If heart rate is above 70BPM tomorrow might increase to 7 5 mg twice daily. - Please provide with zio patch for 14 days monitor on discharge - Please provide with flecainide 300 mg x1(pill in the pocket approach; may not repeat in ?24 hours) - [id number] at least 3. Discussed benefits and risk for anti-correlation. P atient is agreeable to proceed with anticoagulation at least temporary for the n ext 6 weeks. She will follow with outpatient cardiology with the results of the monitor monitor. Consideration for implantable loop recorder with discussion w the [facility] outpatient travel accommodations rater given 2 episodes of perioperative A. Fib to determin e the longevity of anticoagulate. L AND PLASTIC HEATER * Amita Kate MD - 10/01/2018 11:33 AM [employer] Progress Note - Medicine Today's Date: 10/01/2018 Date of Admission: 09/30/2018 8:30 AM # LOS: 1 day Name: Mame Archer : 1945 Age: 73 y.o. Assessment/Plan: Active Problems: Atrial flutter with rapid ventricular response (HCC) Ms. Mame Archer is a 73 y.o. female with PMH of periprocedural atrial fibril lation, coronary artery disease, right bundle branch block, asthma, urinary inco ntinence, hypertension, depression, insomnia, ADOLPH, morbid obesity who presents w ith new onset atrial fibrillation with RVR following procedure. 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 Now with bradycar shirlene, asymptomatic. We will decrease metoprolol to 50 mg twice daily Continue therapeutic anticoagulation for now, okay to discharge on Eliqu Cardiology discussed flecainide for abortive therapy Patient to follow-up with her home travel accommodations rater for zio patch monitoring to d etermine long-term anticoagulation Obtain echocardiogram today Coronary artery disease HTN Continue daily aspirin Continue amlodipine and benazepril, metoprolol, triamterene/hydrochlorothiazi de Asthma, currently controlled Continue Singulair and albuterol Depression Continue sertraline Insomnia Continue trazodone ADOLPH Continue CPAP Morbid obesity Body mass index is 41.97 kg/m. FEN: No IV fluids Cardiac diet DVT prophylaxis: Fully anticoagulated with therapeutic Lovenox Full code Disposition: Continue inpatient admission for further workup of atrial fibrillat ion. Anticipate discharge tomorrow. Greater than 35 minutes was spent in patient care with greater than 50% of time spent discussing current plan of care with patient and her granddaughter. Amita Kate MD [facility] Q- [id number] __ Subjective: No acute overnight events. Patient converted to sinus rhythm overnight in the [facility]. She was asleep so could not tell. Denies any lightheadedness this morn ing or shortness of breath. But has had [...] 37.5-25 mg tablet 1 tablet 1 tablet Or al QAM8 Continuous Infusions: diltiazem (cardIZEM) 125 mg in sodium chloride 0.9% (NS) 125 mL IV drip (std conc) Stopped (10/01/18 0221) PRN and Respiratory [...] -- Recent Labs 09/30/18 1413 09/30/18 1810 10/01/18428 WBC -- 10.2 9.1 HGB -- 15.1* [...] and other Diagnostics Review: Pertinent radiology reviewed. L AND PLASTIC HEATER * Liza Hendricks RN - 10/01/2018 10:43 AM METAL AND PLASTIC HEATER Patient takes 5,000u vitamin D daily. Currently not on SEP. Sent text page to [facility] to notify. Tracking # [id number] L AND PLASTIC HEATER * Mary Rowley - 10/01/2018 2:20 AM METAL AND PLASTIC HEATER MP Swing 4 paged to notify that patient has been at lowest rate of cardizem drip for one hour, has converted to sinus bradycardia and is sustaining a HR of low 40's. Pt BP low 100s/50s and pt resting comfortably in bed. Per , william to DC d rip at this time. RN will continue to monitor. L AND PLASTIC HEATER * Lynda Barroso RN - 09/30/2018 5:18 PM METAL AND PLASTIC HEATER Patient arrived to room # (HC815*) via cart accompanied by RN. Patient transferr ed to the chair without assistance. Bedside safety checks completed. Initial pat ient assessment completed, refer to flowsheet for details. Admission skin assess ment completed by: Lynda Sen and Elizabeth Gardner [...] Doc Flowsheet for additional wound details. INTERVENTIONS: L AND PLASTIC HEATER * Gumaro Dietrich MD - 09/30/2018 5:00 PM METAL AND PLASTIC HEATER Notified of preference for central line with esmolol infusion if duration antici pated to be prolonged. Since she has had minimal response to initial doses of e smolol, favor switching to Cardizem for rate control. Additionally, confirmed w ith her travel accommodations rater that she does not have a history of tachybradycardia syndro me and therefore a short acting agent is not the most important characteristic o f the infused medication. Will switch to Cardizem with dose to titrate 5-15 mg to keep rate less than 110 greater than 60. Gumaro Dietrich MD L AND PLASTIC HEATER * Lucille Gomez RN - 09/06/2018 12:06 PM MET[employer] AND PLASTIC HEATER PAC phone triage completed with patient for surgery on 09/27/[address] Cary jasso. Medications, allergies and medical history reviewed and updated in chart. Ismael caldwell last surgery on 03/29/18 and denies changes to medical or functional status. She had hop replacement and states that stairs are not easy for her but can walk a couple of blocks without becoming symptomatic. Denies chest pain, SANDOVAL, palpitati ons or URI symptoms. No PAC visit indicated. Preop and medication instructions reviewed with patient. No vitamins or suppleme nts for 14 days and no NSAIDS for 7 days before surgery. Will hold Aspirin for 7 days before surgery. NPO after 11 pm the night before surgery but ok to drink w ater until 2 hours before arrival at hospital. Patient verbalized understanding and copy of instructions emailed to her L AND PLASTIC HEATER documented in this encounter H&P Notes * Gumaro Dietrich MD - 09/30/2018 2:13 PM METAL AND PLASTIC HEATER Admission H&P Department of Internal Medicine Assessment (current differential diagnosis) | Status Newonset atrial fibrillation with history of tachycardia (procedural physiol ogic stress v botulinum v ephedrine) | Asymptomatic, and the patient notes that historically had similar episodes.ERICH(2)DS(2)-VAsc score 3 and CVA risk ~3.2% pe r year for HTN, Age, Sex. Follows with a Supervisor [employer] Spl[employer] in [facility], and she notes she has had [...] 3:34 PM I spoke with her primary Supervisor [employer], who states after his note review that she has a history of palpitations, but no documented arrhythmia. Coronary artery disease | Asymptomatic. Prior to admission, on aspirin 81 mg da perry. Her primary Supervisor [employer] highlighted that in 2006 she had a catheterizatio n that demonstrated mild coronary artery disease. RBBB | Not new. Noted on old EKG. Asthma | Controlled, with no evidence of exacerbation. Prior to admission, on S ingulair and albuterol asneeded. Has not regularly needed it. 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 Urinary incontinence | Status post Botox injection on 09/30/2018. Hypertension (essential versus secondary versus obesity) | Currently uncontrolle d. Prior to admission, on amlodipine 10 mg combined with benazepril 20 mg. Als o on metoprolol 100 mg twice daily. Also on triamterene hydrochlorothiazide 37. 5-25 mg every morning. Depression | Controlled. On sertraline 150 mg every morning. Insomnia | Controlled on trazodone 50 mg every afternoon. 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 At risk for DVT (hospitalization/immobility) | Anticipating use of enoxaparin -- > DOAC v warfarin. Plan Start IV esmolol drip with goal heart rate less than 110 (update 9:52 PM transit ioned to diltiazem) Give home dose of metoprolol now Check hemoglobin A1c based on fasting hyperglycemia and risk factors for DM Check lipid profile Trend troponins at least thrice (first negative) (update 7:50 PM 2nd negative an d remains chest pain free so will DC) Initiate anticoagulation with enoxaparin unless formalized weight is less than 1 20kg, since there is a lack of clinical data in this population Check renal function prior to AC Echocardiogram Cardiology evaluation CPAP for ADOLPH Replace magnesium CBC/INR TSH *I spoke with her Primary Supervisor Slate Splitting: Dr. Елена Ang [address] [place] [address] [phone] Pager (I spoke with Urology, who stated [...] had intermittent episodes of tachycardia that were ref ractory to 25 mg of IV metoprolol. She [...] diabetes, has hyperlipidemia, has no known peripheral jackie rial disease. I spoke with her travel accommodations rater, and he highlighted that she had a catheterization in 2006 that demonstrated mild coronary artery disease. She has no history of epistaxis, GI bleeding, surgery within 6 weeks, known brai n mass, history of intracerebral hemorrhage. EKG demonstrated atrial fibrillation/flutter with RVR. She currently remains as ymptomatic. In the PACU, she received 1 L of LR, and since 10 AM this morning, has received 25 mg IV metoprolol. During the procedure she received 0.2 mg of glycopyrrolate injections twice. She also received ephedrine. She received botulinum injection during the procedure and there were no complica tions. Review of Systems (ROS) A full 10-point review of systems was obtained and was negative except for sympt oms outlined in the HPI as well as none. Diagnostic Studies Labs were reviewed, and notable for: Troponin 0 0.01 Sodium 142 Potassium 4.2 Chloride 108 BUN 17 Creatinine 0.76 Mg 1.9 Imaging studies were reviewed, and notable for: Single view chest x-ray performed on 09/30/2018 with poor depth of inspiration wit h bibasilar atelectasis. Telemetry reviewed - atrial fibrillation with RVR and rates in 120s. EKG reviewe d and ?atrial flutter. Microbiological studies were reviewed, [...] REPLACEMENT Left 09/14/2012 HIP REPLACEMENT Right 05/25/2013 [place] CYSTOURETHROSCOPY INJ CHEMODENERVATION BLADDER N/A 10/22/2015 CYSTOSCOPY, INTRAVESICAL BOTOX INJECTION (150Units) performed by Shefali viera MD at [facility]Periop [place] CYSTOURETHROSCOPY INJ CHEMODENERVATION BLADDER N/A 04/21/2016 CYSTOSCOPY, INTRAVESICAL BOTOX INJECTION (150 UNITS) performed by Shefali rhodes MD at [facility] OR/Periop ABDOMINAL HERNIA REPAIR 05/2016 [place] NDSC NJX IMPLT MATRL URT&/BLDR NCK N/A 10/23/2016 CYSTOSCOPY, INJECTION BOTOX (150 UNITS) performed by Shefali Herring MD at [facility] OR/Periop [place] CYSTOURETHROSCOPY INJ CHEMODENERVATION BLADDER N/A 04/23/2017 CYSTOSCOPY, INJECTION BOTOX (150 UNITS) performed by Shefali Herring MD at [facility] OR/Periop CYSTOSCOPY N/A 09/28/2017 CYSTOSCOPY, INJECTION BOTOX (150 UNITS) performed by Shefali Herring MD at [facility] OR/Periop [place] CYSTOURETHROSCOPY INJ CHEMODENERVATION BLADDER N/A 03/29/2018 CYSTOSCOPY, [...] PROAIR HFA, PROVENTIL HFA) 90 mcg/actuation inhaler Inh gerber 1-2 Puffs by mouth into the lungs every 6 hours as needed for Wheezing or Sh ortness of Breath. Shake well before use. HISTORICAL PROVIDER amLODIPine/benazepril(+) (LOTREL) 10/20 mg tablet 1 Tab Take 1 Tab by mouth ernie y. Provider, Historical aspirin 81 mg chewable tablet Take 81 mg by mouth every morning. Provider, [facility] ATORVASTATIN CALCIUM (LIPITOR PO) Take 1 Tab by mouth at bedtime daily. Provi brenda, Historical cholecalciferol (Vitamin D3) (VITAMIN D-3) 1,000 units tablet Take 5,000 Units b y mouth every morning. Provider, Historical estradiol (ESTRACE) 0.01 % (0.1 mg/g) vaginal cream INSERT OR APPLY TO VAGINAL A JACINTO DAILY FOR SEVEN DAYS THEN TWICE A WEEK 03/20/13 Shefali Herring MD estradiol (ESTRACE) 0.5 mg tablet Take 0.5 mg by mouth daily. HISTORICAL PROV IDER ezetimibe/simvastatin (VYTORIN) 10/20 mg tablet 1 Tab Take 1 Tab by mouth at bed time daily. Provider, Historical fluticasone (FLONASE) 50 mcg/actuation nasal spray Apply 2 Sprays to each nostri l as directed twice daily. Shake bottle gently before using. HISTORICAL PROVI BRENDA FLUTICASONE/SALMETEROL (ADVAIR DISKUS IN) Inhale 1 Puff by mouth into the lungs as Needed. HISTORICAL PROVIDER metoprolol (LOPRESSOR) 100 mg tablet Take 100 mg by mouth twice daily. Prov ider, Historical montelukast (SINGULAIR) 10 mg tablet Take 10 mg by mouth at bedtime daily. Pr ovider, Historical sertraline (ZOLOFT) 100 mg tablet Take 150 mg by mouth every morning. Provide r, Historical traZODone (DESYREL) 50 mg tablet Take 50 mg by mouth at bedtime daily. Prov ider, Historical triamterene/hydrochlorothiazide (MAXZIDE) 37.5/25 mg tablet Take [...] murmurs audible. Appears and feels warm and well-perfused . Irregular rhythm. GI: Abdomen soft. Non-tender to palpation. MSK: No visible joint swelling. No obvious deformities. Normal bulk and tone. NEURO: CNII-XII intact grossly. Strength 5/5 in muscle groups tested. HEME/LYMPH: No palpable submandibular, anterior/posterior cervical lymphadenopat hy. SKIN: Warm. Dry. PSYCH: Mood euthymic. Affect congruent with mood. Patient Name Mame Archer Patient Date of 1945 Date of Admission 09/30/2018 Primary Care Provider Breanna Broderick ____ Gumaro Dietrich M.D. Internal Medicine I spent a total of 70 minutes involved in this patient's initial hospital care. This included time spent communicating with the physician who accepted the patie nt from the PACU I spoke directly with the Urologist. L AND PLASTIC HEATER * Shefali Herring MD - 09/30/2018 9:48 AM METAL AND PLASTIC HEATER Admission History and Physical Examination Name: Mame Archer Admission Date: 09/30/2018 Assessment/Plan: Active Problems: * No active hospital problems. * To OR for cysto botox 150 units. __ Primary Care Physician: Breanna Broderick Verified Chief Complaint: urge incontinence. History of Present Illness: Mame Archer is a 73 y.o. female presents with ur ge incontinence History of Present Illness Mame Archer is a 72 y.o. female with history of urge urinary incontinence wi th prior good response to intravesical Botox injection who presents for schedule d Botox injection. She has had worsening urinary urgency and frequency since she was last treated and desires repeat therapy. The patient denies any recent lilly ges to her health including surgeries, hospitalizations, or other illnesses. Shalini hsieh denies any history of trouble with anesthesia, bleeding problems, and confi eduarda they have been NPO since midnight. Patient [...] REPLACEMENT Left 09/14/2012 HIP REPLACEMENT Right 05/25/2013 [place] CYSTOURETHROSCOPY INJ CHEMODENERVATION BLADDER N/A 10/22/2015 CYSTOSCOPY, INTRAVESICAL BOTOX INJECTION (150Units) performed by Shefali viera MD at [facility]iop [place] CYSTOURETHROSCOPY INJ CHEMODENERVATION BLADDER N/A 04/21/2016 CYSTOSCOPY, INTRAVESICAL BOTOX INJECTION (150 UNITS) performed by Shefali rhodes MD at [facility] OR/[facility]iop ABDOMINAL HERNIA REPAIR 05/2016 [facility] NDSC NJX IMPLT MATRL URT&/BLDR NCK N/A 10/23/2016 CYSTOSCOPY, INJECTION BOTOX (150 UNITS) performed by Shefali Herring MD at [facility] OR/Periop [place] CYSTOURETHROSCOPY INJ CHEMODENERVATION BLADDER N/A 04/23/2017 CYSTOSCOPY, INJECTION BOTOX (150 UNITS) performed by Shefali Herring MD at [facility] OR/Periop CYSTOSCOPY N/A 09/28/2017 CYSTOSCOPY, INJECTION BOTOX (150 UNITS) performed by Shefali Herring MD at [facility]iop [place] CYSTOURETHROSCOPY INJ CHEMODENERVATION BLADDER N/A 03/29/2018 CYSTOSCOPY, [...] (VITAMIN D-3) 1,000 units tablet Take 5,000 Uni ts by mouth every morning. estradiol (ESTRACE) 0.01 % (0.1 mg/g) vaginal cream INSERT OR APPLY TO VAGIN AL AREA DAILY FOR SEVEN DAYS THEN TWICE A WEEK estradiol (ESTRACE) 0.5 mg tablet Take 0.5 mg by mouth daily. ezetimibe/simvastatin (VYTORIN) 10/20 mg tablet 1 Tab Take 1 Tab by mouth at bedtime daily. fluticasone (FLONASE) 50 mcg/actuation nasal spray Apply 2 Sprays to each no stril as directed twice daily. Shake bottle gently before using. FLUTICASONE/SALMETEROL (ADVAIR DISKUS IN) Inhale 1 Puff by mouth into the colette ngs as Needed. metoprolol (LOPRESSOR) 100 mg tablet Take 100 mg by mouth twice daily. montelukast (SINGULAIR) 10 mg tablet Take 10 mg by mouth at bedtime daily. sertraline (ZOLOFT) 100 mg tablet Take 150 mg by mouth every morning. traZODone (DESYREL) 50 mg tablet Take 50 mg by mouth at bedtime daily. triamterene/hydrochlorothiazide (MAXZIDE) 37.5/25 mg tablet Take 1 Tab by mo uth every morning. ROS A 10 point review [...] visit on 09/30/18 (from the past 24 kaur r(s)). Pertinent radiology reviewed. Malcom Chaidez MD Pager [phone] ATTESTATION I personally performed the westfall portions of the E/M visit, discussed case with re sident and concur with resident documentation of history, physical exam, assessm ent, and treatment plan unless otherwise noted. Staff name: Shefali Herring MD L AND PLASTIC HEATER documented in this encounter Consult Notes * Megan Cutler MD - 09/30/2018 5:05 PM METAL AND PLASTIC HEATER Associated Order(s): CONSULT CARDIOLOGY PHYSICIAN STAFF CARDIOLOGY CONSULT NOTE Admission Date: 09/30/2018 Code Status: Full Code Reason for Consultation: New onset atrial fibrillation History of Present Illness: This is a 73 y.o. white female patient that was admitted to [facility] 2 undergo Botox injection of her bladder for urina ry incontinence. During the procedure patient was noted to have intermittent ep isodes of tachycardia. She received metoprolol intravenously, the tachycardia d id not resolve. Prior to the procedure, going to the operating room patient was in normal sinus rhythm. Fifteen minutes after being in the recovery, patient d eveloped atrial fibrillation. She was also symptomatic with heart palpitations. Patient reports that she had a similar episode approximately 7 or 8 years ago wh en she underwent left foot surgery. She recalls that at that time she also deve loped atrial fibrillation in the postop period. She was started on metoprolol a nd sinus rhythm was restored. Patient does follow-up with a travel accommodations rater in [place], [place]. She underwent a left heart catheterization in 2006, she was not found to have any si gnificantly obstructive coronary artery disease. She was seen by her travel accommodations rater a few days ago and was found to be stable. Shalini hsieh thinks that she did undergo evaluation with an electrocardiogram in the [facility] t few months and she was told that she had normal sinus rhythm. Patient also has sleep apnea, she uses a CPAP machine. She does have hypertensi on that is treated with metoprolol, amlodipine and Maxide. She is morbidly obes e with a BMI of 41.44. Family history: [...] (VITAMIN D-3) 1,000 units tablet Take 5,000 Uni ts by mouth every morning. estradiol (ESTRACE) 0.01 % (0.1 mg/g) vaginal cream INSERT OR APPLY TO VAGIN AL AREA DAILY FOR SEVEN DAYS THEN TWICE A WEEK estradiol (ESTRACE) 0.5 mg tablet Take 0.5 mg by mouth daily. [DISCONTINUED] ezetimibe/simvastatin (VYTORIN) 10/20 mg tablet 1 Tab Take 1 Tab by mouth at bedtime daily. fluticasone (FLONASE) 50 mcg/actuation nasal spray Apply 2 Sprays to each no stril as directed twice daily. Shake bottle gently before using. FLUTICASONE/SALMETEROL (ADVAIR DISKUS IN) Inhale 1 Puff by mouth into the colette ngs as Needed. metoprolol (LOPRESSOR) 100 mg tablet Take 100 mg by mouth twice daily. montelukast (SINGULAIR) 10 mg tablet Take 10 mg by mouth at bedtime daily. sertraline (ZOLOFT) 100 mg tablet Take 150 mg by mouth every morning. traZODone (DESYREL) 50 mg tablet Take 50 mg by mouth at bedtime daily. triamterene/hydrochlorothiazide (MAXZIDE) 37.5/25 mg tablet Take 1 Tab by mo uth every morning. Current Medications amLODIPine (NORVASC) tablet [...] 37.5-25 mg tablet 1 tablet 1 tablet Or al QAM8 acetaminophen Q6H PRN, albuterol Q6H PRN, [...] Vital Signs: Most Recent Vital Signs: 24 Ho ur Range BP: 143/110 (09/30 163) Temp: 37.2 C (99 F) (09/30 1634) Pulse: 106 (09/30 163) Respirations: 22 PER MINUTE (09/30 1634) SpO2: 93 % (09/30 1634) O2 Delivery: None (Room Air) (09/30 1634) SpO2 Pulse: 116 (09/30 1530) Height: 170.2 cm (5' 7") (03/08 0948) BP: (125-176)/(60-130) Temp: [36.5 C (97.7 F)-37.2 [...] to auscultation, no rales or rhonchi, no wh eezing Cardiac Rhythm: irregularly irregular rhythm and normal [...] or performed during the hospital encounter of 09/30/18 (from the past 24 hour(s)) BASIC METABOLIC [...] Cardiographics: Twelve-lead EKG demonstrates atrial fibrillation, ventricular ra te was in the range of 110-120 bpm Assessment & Plan Mame Archer is a 73 y.o. patient with the following problems: Active Problems: Atrial flutter with rapid ventricular response (HCC) In summary: This is a very pleasant 73-year-old white female that presented toda y at our hospital to undergo Botox injection of the gallbladder due to underlyin g urinary incontinence, patient developed tachycardia and then later atrial fibr illation in the recovery room, patient was symptomatic with heart palpitations. She does have a history of atrial fibrillation that occurred several years ago following another surgical procedure. Patient follows with a travel accommodations rater in [place], [place] and she does not have coronary artery disease, she und erwent a left heart catheterization in 2006. In [...] normal sinus rhythm this , then she w ill undergo a T guided cardioversion on Wednesday. 7. Fasting lipid and liver profile 8. Risk factor modification, educational weight reduction, low-fat, low-cholest jourdan, low sugar and low carbohydrate diet 9. Patient will follow-up with her travel accommodations rater in her hometown. Megan Cutler MD L AND PLASTIC HEATER documented in this encounter Miscellaneous Notes * Care Plan - Angle [place] RN - 10/02/2018 12:11 PM CDT Problem: Discharge Planning Goal: Participation in plan of care Outcome: Goal Achieved Date Met: 10/02/18 Pt actively participated in care including medication management, ambulation, an d personal care Goal: Knowledge regarding plan of care Outcome: Goal Achieved Date Met: 10/02/18 Pt aware of discharge today Goal: Prepared for discharge Outcome: Goal Achieved Date Met: 10/02/18 AVS will be reviewed and PIVs will be removed. * Care Coordination-Inpatient - Carlo He MD - 10/01/2018 3:50 AM METAL AND PLASTIC HEATER Please page [phone] with any questions until 8am after that please page [facility] [place] Q L AND PLASTIC HEATER * Operative Report (Direct Entry) - Sehfali Herring MD - 09/30/2018 10:25 AM METAL AND PLASTIC HEATER OPERATIVE REPORT Name: Mame Archer is a 73 y.o. female : 1945 MRN#: [id number] DATE OF OPERATION: 09/30/2018 Surgeon(s) and Role: * Shefali Herring MD - Primary * Malcom Chaidez MD - Resident - Assisting Preoperative Diagnosis: Urge urinary incontinence [N39.41] Post-op Diagnosis * Urge urinary incontinence [N39.41] Procedure(s): CYSTOSCOPY WITH BOTOX INJECTION (150 UNITS) Anesthesia Type: Defer to Anesthesia Indications For Procedure: 73yoF with urge incontinence. here for repeat botox i njections. Description and Findings of Operative Procedure: After obtaining informed consent, patient was brought back to the operating darling m and placed in the supine position. General anesthesia was induced smoothly wit hout complication. A proper timeout was performed confirming proper patient, pro cedure, and laterality. Patient was moved to the dorsal lithotomy position. Kelsey ent was prepped and draped in the usual sterile fashion. All instruments were st erile. We began by placing the injection scope into the urethra and this is pas sed into the bladder with ease. 360 panendoscopy the bladder performance reve aled no tumors stones or defects. There was 2+ trabeculation noted. We then be gautam to inject her Botox and were careful not to inject any large vessels. We us ed 150units of Botox injected in 3 rows of 5. Patient tolerated this well after wards there is noted to be hemostasis. The bladder was drained and patient was awoken from anesthesia. Patient was transferred to the PACU in stable condition . Dr. Herring was present scrubbed and directed all westfall portions of procedu re. Estimated Blood Loss: None Specimen(s) Removed/Disposition: none Malcom Chaidez MD ATTESTATION I performed this procedure with a resident. Staff name: Shefali Herring MD documented in this encounter Plan of Treatment Care Team Description Date Type Specialty Ranjit Braun MD [address] [facility] [address] [place] [address] [phone] Urge incontinence 03/30/2019 Hospital Encounter documented as of this encounter Procedures Comments Procedure Name Priority Date/Time Associated Diagnosis CBC AND DIFF Routine 10/02/2018 5:49 AM CDT MAGNESIUM Routine 10/02/2018 5:49 AM CDT COMPREHENSIVE METABOLIC Routine 10/02/2018 PANEL 5:49 AM CDT 2-D + DOPPLER Routine 10/01/2018 ECHOCARDIOGRAM 2:00 PM METAL AND PLASTIC HEATER CBC AND DIFF Routine 10/01/2018 4:29 AM METAL AND PLASTIC HEATER THYROID STIMULATING Add on 10/01/2018 HORMONE-TSH 4:29 AM METAL AND PLASTIC HEATER MAGNESIUM Routine 10/01/2018 4:29 AM METAL AND PLASTIC HEATER HEMOGLOBIN A1C Add on 10/01/2018 4:29 AM METAL AND PLASTIC HEATER LIPID PROFILE Routine 10/01/2018 4:29 AM METAL AND PLASTIC HEATER COMPREHENSIVE METABOLIC Routine 10/01/2018 PANEL 4:29 AM METAL AND PLASTIC HEATER TROPONIN-I STAT 09/30/2018 6:10 PM METAL AND PLASTIC HEATER PROTIME INR (PT) STAT 09/30/2018 6:10 PM METAL AND PLASTIC HEATER CBC STAT 09/30/2018 6:10 PM METAL AND PLASTIC HEATER ECG 12-LEAD Routine 09/30/2018 4:42 PM METAL AND PLASTIC HEATER TROPONIN-I 09/30/2018 2:13 PM METAL AND PLASTIC HEATER PHOSPHORUS STAT 09/30/2018 2:13 PM METAL AND PLASTIC HEATER MAGNESIUM STAT 09/30/2018 2:13 PM METAL AND PLASTIC HEATER BASIC METABOLIC PANEL STAT 09/30/2018 2:13 PM METAL AND PLASTIC HEATER CHEST SINGLE VIEW STAT 09/30/2018 2:11 PM METAL AND PLASTIC HEATER CYSTOURETHROSCOPY WITH 09/30/2018 Urge urinary incontinence INJECTION FOR 9:30 AM METAL AND PLASTIC HEATER CHEMODENERVATION OF THE BLADDER Special Needs 09/13 PER CHANGE FORM CASE MOVED FROM 09/27 TO 09/30 TO FOLLOW - CSesar DEXTER RN ([id number]) TELEMETRY STRIPS-SCAN 09/30/2018 12:00 AM METAL AND PLASTIC HEATER TELEMETRY STRIPS-SCAN 09/30/2018 12:00 AM METAL AND PLASTIC HEATER TELEMETRY STRIPS-SCAN 09/30/2018 12:00 AM METAL AND PLASTIC HEATER ECG-SCAN 09/30/2018 12:00 AM METAL AND PLASTIC HEATER documented in this encounter Results * MAGNESIUM (10/02/2018 5:49 AM CDT) Magnesium 1.8 1.6 - 2.6 mg/dL [facility] Specimen Blood Performing Organization Address City/State/Zipcode Phone Number [facility] [address] [place] [address] * COMPREHENSIVE METABOLIC PANEL (10/02/2018 5:49 AM [...] >60 >60 mL/min [facility] Comment: [place] The eGFR is not validated for use in drug dosing adjustments.Continue to use estimated creatinine clearance per dosing reference text.Please contact the Clinical Pharmacist for questions. eGFR >60 >60 mL/min [facility] [place] Comment: The eGFR is not validated for use in drug dosing adjustments.Continue to use estimated creatinine clearance per dosing reference text.Please contact the Clinical Pharmacist for questions. Specimen Blood Performing Organization Address City/State/Zipcode Phone Number MAIN [facility] [address] [place] [address] * CBC AND DIFF (10/02/2018 5:49 AM CDT) White Blood 6.4 4.5 - 11.0 K/UL [...] Blood Performing Organization Address City/State/Zipcode Phone Number [facility] [address] [place] [address] * 2-D + DOPPLER ECHOCARDIOGRAM (10/01/2018 2:00 PM [facility]LASTIC HEATER) IVS 0.64 0.6 - 0.9 cm OTHER [...] 34 OTHER OUTSIDE Index LAB Cardiology Siemens [id number] OTHER OUTSIDE Ultrasound LAB Machine Left Ventricle [...] ECHO EF 55 % OTHER OUTSIDE LAB Specimen Narrative Performed At OTHER OUTSIDE LAB LVEF=55% Moderate LV Dilatation Mild RV Dilatation On Some Contrast Views Moderate Left Atrial Dilatation Mild Mitral Valve Regurgitation No Pericardial Effusion PASP=37mmHg Performing Organization Address City/[facility]/Zipcode Phone Number OTHER OUTSIDE LAB * THYROID STIMULATING HORMONE-TSH (10/01/2018 4:29 AM [facility] HE[facility]) TSH 0.970 0.35 - 5.00 MCU/ML [facility] Specimen Performing Organization Address [facility] Phone Number [facility] [address] [phone] * HEMOGLOBIN A1C (10/01/2018 4:29 AM [facility] PLASTIC HEATER) Hemoglobin A1C 6.0 4.0 - 6.0 % [facility] Comment: The ADA recommends that most patients with type 1 and type 2 diabetes maintain an A1c level <7%. Specimen Performing Organization Address [facility] Phone Number [facility] [address] [place] [address] * MAGNESIUM (10/01/2018 4:29 AM [facility] PLASTIC HEATER) Magnesium 1.9 1.6 - 2.6 mg/dL [facility] Specimen Blood Performing Organization Address [facility] Phone Number [facility] [address] [place] [address] * COMPREHENSIVE METABOLIC PANEL (10/01/2018 4:29 AM [facility] AND PLASTIC HEATER) Sodium 141 137 - 147 MMOL/L [facility] [...] >60 >60 mL/min [facility] Comment: [place] The eGFR is not validated for use in drug dosing adjustments.Continue to use estimated creatinine clearance per dosing reference text.Please contact the Clinical Pharmacist for questions. eGFR >60 >60 mL/min [facility] [place] Comment: The eGFR is not validated for use in drug dosing adjustments.Continue to use estimated creatinine clearance per dosing reference text.Please contact the Clinical Pharmacist for questions. Specimen Blood Performing Organization Address City/State/Zipcode Phone Number [facility] [address] [place] [address] * CBC AND DIFF (10/01/2018 4:29 AM [facility]AL AND PLASTIC HEATER) White Blood 9.1 4.5 - 11.0 K/UL [...] Basophil Count Specimen Blood Performing Organization Address [facility] Phone Number MAIN LAB [address] [place] [address] * LIPID PROFILE (10/01/2018 4:29 AM [facility]AL AND PLASTIC HEATER) [facility] Cholesterol 123 <200 MG/DL [facility] [...] 130 mg/dL. Specimen Blood Performing Organization Address [facility] Phone Number MA[facility] [address] [place] [address] * CBC (09/30/2018 6:10 PM METAL AND PLASTIC HEATER) [facility] White Blood 10.2 4.5 - 11.0 [...] MAIN LAB Specimen Blood Performing Organization Address [facility] Phone Number MAIN LAB [address] [place] [address] * PROTIME INR (PT) (09/30/2018 6:10 PM [facility] AND PLASTIC HEATER) INR 1.0 0.8 - 1.2 [facility] Specimen Blood Performing Organization Address City/[facility]/Zipcode Phone Number [facility] [address] [place] [address] * TROPONIN-I (09/30/2018 6:10 PM [facility] AND PLASTIC HEATER) Troponin-I 0.01 0.0 - 0.05 NG/ML [facility] Specimen Blood Performing Organization Address City/[facility] Phone Number [facility] [address] [place] [address] * TROPONIN-I (09/30/2018 2:13 PM [facility] AND PLASTIC HEATER) Troponin-I 0.01 0.0 - 0.05 NG/ML [facility] Specimen Performing Organization Address [facility] Phone Number [facility] [address] [place] [address] * PHOSPHORUS (09/30/2018 2:13 PM METAL AND PLASTIC HEATER) Phosphorus 3.4Comment: NOTE NEW REFERENCE 2.0 - 4.5 MG/DL [facility] RANGES Specimen Blood Performing Organization Address City/[facility] Phone Number [facility] [address] [place] [address] * MAGNESIUM (09/30/2018 2:13 PM METAL AND PLASTIC HEATER) Magnesium 1.9 1.6 - 2.6 mg/dL [facility] Specimen Blood Performing Organization Address [facility] Phone Number [facility] [address] [place] [address] * BASIC METABOLIC PANEL (09/30/2018 2:13 PM METAL AND PLASTIC HEATER) Sodium 142 137 - 147 MMOL/L [facility] [...] >60 >60 mL/min [facility] Comment: [place] The eGFR is not validated for use in drug dosing adjustments.Continue to use estimated creatinine clearance per dosing reference text.Please contact the Clinical Pharmacist for questions. eGFR >60 >60 mL/min [facility] [place] Comment: The eGFR is not validated for use in drug dosing adjustments.Continue to use estimated creatinine clearance per dosing reference text.Please contact the Clinical Pharmacist for questions. Specimen Blood Performing Organization Address City/State/Zipcode Phone Number MAIN LAB [address] [place] [address] * CHEST SINGLE VIEW (09/30/2018 2:11 PM [facility]AL AND PLASTIC HEATER) Specimen Impressions Performed At Poor depth of inspiration [...] Interface, Radiant Results - 09/30/2018 2:15 PM [facility] AND PLASTIC HEATER Single view of the chest Clinical history: [...] RESULTS * TELEMETRY STRIPS-SCAN (09/30/2018 12:00 AM [facility] AND PLASTIC HEATER) Narrative Performed At Ordered by an unspecified provider. * TELEMETRY STRIPS-SCAN (09/30/2018 12:00 AM [facility] AND PLASTIC HEATER) Narrative Performed At Ordered by an unspecified provider. * TELEMETRY STRIPS-SCAN (09/30/2018 12:00 AM [facility]AL AND PLASTIC HEATER) Narrative Performed At Ordered by an unspecified provider. * ECG-SCAN (09/30/2018 12:00 AM METAL AND PLASTIC HEATER) Narrative Performed At Ordered by an unspecified provider. documented in this encounter Visit Diagnoses Diagnosis Atrial fibrillation with rapid ventricular response (HCC) - Primary Atrial fibrillation Urge incontinence Paroxysmal atrial fibrillation (HCC) Atrial fibrillation Morbid obesity (HCC) Morbid obesity Coronary artery disease Coronary atherosclerosis of unspecified type of vessel, [place] or graft Hypertension Unspecified essential hypertension Depression [...] Medication Order MAR Action 10/01/2018 12:10 PM [facility] AND PLASTIC HEATER 650 mg acetaminophen (TYLENOL) tablet 650 mg [...] juice., 10 mg Given 10/01/2018 10:03 AM [facility]AL AND PLASTIC HEATER 10 mg Given 09/30/2018 5:47 PM [facility]AL AND PLASTIC HEATER 10/02/2018 10:13 AM CDT 81 mg aspirin EC tablet 81 mg Given 81 mg, Oral, DAILY, First dose on Wed10/01/18 at 0900, Until Discontinued 81 mg Given 10/01/2018 10:04 AM [facility]AL AND PLASTIC HEATER 10/01/2018 8:37 PM [facility]AL AND PLASTIC HEATER 80 mg atorvastatin (LIPITOR) tablet 80 mg Given 80 mg, Oral, AT BEDTIME DAILY, First dose on 09/30/18 at 2100, Until Discontinued 80 mg Given 09/30/2018 9:05 PM METAL AND PLASTIC HEATER 10/02/2018 10:13 AM CDT 5,000 Units cholecalciferol (VITAMIN D-3) tablet Given 5,000 Units 5,000 Units, Oral, DAILY, First dose on Wed10/01/18 at 1245, Until Discontinued 5,000 Units Given 10/01/2018 12:10 PM [facility] AND PLASTIC HEATER 10/01/2018 1:37 AM [facility]AL AND PLASTIC HEATER 5 mg/hr 5 mL/hr diltiazem (cardIZEM) 125 mg in sodium Dose/Rate chloride 0.9% (NS) 125 mL IV drip (std Change conc) 5-15 mg/hr (5-15 mL/hr), 125 mL, at 5-15 mL/hr, Intravenous, TITRATE DIRECTED , Starting Wed09/30/18 at 1700, Until Wed10/02/18 at 0957, Initiate at 5 mg/hr Titrate to keep at: HR 60 to 110 Call MD if Diltiazem 5 mg/hr or less and patient able to tolerate oral medications. Std Conc: 1mg/mL., 7.5 mg/hr 7.5 mL/hr Given - New Bag 10/01/2018 1:19 AM [facility]AL AND PLASTIC HEATER 10 mg/hr 10 mL/hr Dose/Rate Change 10/01/2018 1:06 AM [facility]AL AND PLASTIC HEATER 10/02/2018 6:07 AM CDT 120 mg Abdominal [...] mg Abdominal Tissue Given 10/01/2018 5:48 PM METAL AND PLASTIC HEATER 120 mg Abdominal Tissue Given 10/01/2018 6:05 AM [facility]AL AND PLASTIC HEATER 09/30/2018 4:52 PM [facility]AL AND PLASTIC HEATER 175 mcg/kg/min 126 mL/hr esmolol (BREVIBLOC) 2500 mg/NS 250 mL Dose/Rate infusion (std conc) Change 50-300 mcg/kg/min 120 kg (36-216 mL/hr), 250 mL, at 36-216 mL/hr, Intravenous, TITRATE DIRECTED , Starting Wed09/30/18 at 1445, Until Wed09/30/18 at 1659, Initiate at 50 mcg/kg/min Hold for heart rate < 100 bpm Hold if SBPBP less than 110mmHg Titrate to keep: HR <100 >60 Std Conc=10,000 mcg/ml NOTE: For weight-based dosing, use patient dosing weight., 125 mcg/kg/min 90 mL/hr Dose/Rate Change 09/30/2018 4:06 PM [facility]AL AND PLASTIC HEATER 100 mcg/kg/min 72 mL/hr Dose/Rate Change 09/30/2018 3:46 PM [facility]AL AND PLASTIC HEATER 10/02/2018 10:13 AM CDT 0.5 mg estradiol (ESTRACE) tablet 0.5 mg Given 0.5 mg, Oral, DAILY, First dose on Wed10/01/18 at 0900, Until Discontinued 0.5 mg Given 10/01/2018 10:05 AM [facility] AND PLASTIC HEATER 09/30/2018 11:33 AM [facility]AL AND PLASTIC HEATER 1,000 mL 20 mL/hr lactated ringers infusion Given - New 1,000 mL, 1,000 mL, Intravenous, at 20 Bag mL/hr, CONTINUOUS, Starting Wed09/30/18 at 0930, Until Wed09/30/18 at 1642, Pre-Op Given - New Bag 09/30/2018 9:55 AM [facility]AL AND PLASTIC HEATER 10/01/2018 10:04 AM [facility]AL AND PLASTIC HEATER 535 mg magnesium chloride (MAG DELAY) tablet Given 535 mg 535 mg, Oral, TWICE DAILY, 2 doses, First dose on Wed09/30/18 at 1515, Last dose on Wed10/01/18 at 0900, Each 535mg delivers 64mg elemental magnesium., 535 mg Given 09/30/2018 3:42 PM [facility] AND PLASTIC HEATER 09/30/2018 12:38 PM [facility]AL AND PLASTIC HEATER 10 mg metoprolol (LOPRESSOR) injection 10 mg Given 10 mg, Intravenous, ONCE, 1 dose, Wed09/30/18 at 1245, PROTECT FROM LIGHT, PACU (only) 09/30/2018 11:35 AM [facility]AL AND PLASTIC HEATER 5 mg metoprolol (LOPRESSOR) injection 5 mg Given 5 mg, Intravenous, ONCE, 1 dose, Wed09/30/18 at 1145, PROTECT FROM LIGHT, PACU (only) 09/30/2018 11:58 AM [facility]AL AND PLASTIC HEATER 5 mg metoprolol (LOPRESSOR) injection 5 mg Given 5 mg, Intravenous, ONCE, 1 dose, Wed09/30/18 at 1200, PROTECT FROM LIGHT, PACU (only) 09/30/2018 12:17 PM METAL AND PLASTIC HEATER 5 mg metoprolol (LOPRESSOR) injection 5 mg Given 5 mg, Intravenous, ONCE, 1 dose, Wed09/30/18 at 1230, PROTECT FROM LIGHT, PACU (only) 09/30/2018 9:05 PM [facility]AL AND PLASTIC HEATER 100 mg metoprolol tartrate (LOPRESSOR) tablet Given [...] Created by cabinet override, 10/01/2018 8:37 PM [facility] PLASTIC HEATER 10 mg montelukast (SINGULAIR) tablet 10 mg Given 10 mg, Oral, AT BEDTIME DAILY, First dose on Wed09/30/18 at 2100, Until Discontinued 10 mg Given 09/30/2018 9:05 PM [facility] AND PLASTIC HEATER 09/30/2018 4:07 PM [facility] AND PLASTIC HEATER 100 Units ONAbotulinum toxin (BOTOX) syringe 100 Given - See Units OR/Proc 100 Units, SEE ADMIN INSTRUCTIONS, ONCE, Flowsheet 1 dose, Wed09/30/18 at 0730, ++For immediate use ++ Short Stability++, 10/01/2018 2:01 PM [facility] AND PLASTIC HEATER 1 Diluted mL perflutren lipid microspheres (DEFINITY) Given injection 1-20 Diluted mL 1-20 Diluted mL, Intravenous, ONCE PRN, 1 dose, Starting 10/01/18 at 1305, Until 10/01/18 at 1401, For Procedure, A paper novelty maker may only administer Definity through a saline lock. If IV is in use or a port, PICC, or central line is being used a nurse must administer. NOTE: This is a HIGH ALERT Medication., MAC Procedure Area Only - Medications 10/02/2018 10:13 AM CDT 150 mg sertraline (ZOLOFT) tablet 150 mg Given 150 mg, Oral, EVERY MORNING, First dose on 3/9/19 at 0800, Until Discontinued 150 mg Given 10/01/2018 10:04 AM [facility] PLASTIC HEATER 10/01/2018 8:37 PM [facility] AND PLASTIC HEATER 50 mg traZODone (DESYREL) tablet 50 mg Given 50 mg, Oral, AT BEDTIME DAILY, First dose on Wed09/30/18 at 2100, Until Discontinued 50 mg Given 09/30/2018 9:05 PM [facility] AND PLASTIC HEATER 10/02/2018 10:14 AM CDT 1 tablet triamterene-hydrochlorothiazide Given (MAXZIDE) 37.5-25 mg tablet 1 tablet 1 tablet, Oral, EVERY MORNING, First dose on Wed10/01/18 at 0800, Until Discontinued 1 tablet Given 10/01/2018 10:04 AM [facility] documented in this encounter
--- OUTSIDE RECORDS SUMMARY | 2019-01-30 07:23 | XMS REPORT | Encounter Summary ---
Author Author [facility] Organization [facility] Address Unknown Phone Unavailable Care Team Providers Care Direct Marketing Coordinator Name Role Phone Alan Ramachandran MD Unavailable [...] Department Nathanael Bradley SRNA 09/30/2018 Anesthesia [facility] [place] [address] [address] Anesthesia Record Responsible Anesthesiologist Anesthesia [...] CRNA attempt; Auscultation, End-tidal CO2; 09/30/18; 1037 documented [...] Rojo MD - 09/30/2018 2:46 PM COLOR LABORATORY TECHNICIAN Post-Anesthesia Evaluation Name: Mame Archer : 1945 [...] to be tachycardic to 120s and with symptomati c palpitations. EKG completed and notable for atrial fibrillation. Patient given a total of 25 mg IV metoprolol without slowing of HR, this was given in 5-10mg bolus doses. Her BP remained stable throughout. She did report the palpitations stopped after the IV metoprolol. Discussion with urology about admitting this pa tient for further monitoring. Internal medicine service to admit patient. AOD at bedside when patient signed out. Perioperative Events Perioperative Event: No Emergency Case Activation: No R LABORATORY TECHNICIAN Associated attestation - Yobani Bahena MD - 09/30/2018 4:11 PM COLOR LABORATORY TECHNICIAN ATTESTATION Post-Anesthesia Evaluation Attestation: I reviewed and agree the indicated post- anesthesia care was provided. Staff name: Yobani Bahena MD Date: 09/30/2018 * Anesthesia Preprocedure Evaluation - Pooja Morales MD - 09/30/2018 8:48 AM COLOR LABORATORY TECHNICIAN Anesthesia Pre-Procedure Evaluation Name: Mame Archer : [...] ortness of Breath. Shake well before use. amLODIPine/benazepril(+) (LOTREL) 10/20 mg tablet 1 Tab Take 1 Tab by mouth ernie y. aspirin 81 mg chewable tablet Take 81 mg by mouth every morning. ATORVASTATIN CALCIUM (LIPITOR PO) Take 1 Tab by mouth at bedtime daily. cholecalciferol (Vitamin D3) (VITAMIN D-3) 1,000 units tablet Take 5,000 Units b y mouth every morning. estradiol (ESTRACE) 0.01 % (0.1 mg/g) vaginal cream INSERT OR APPLY TO VAGINAL A JACINTO DAILY FOR SEVEN DAYS THEN TWICE A WEEK estradiol (ESTRACE) 0.5 mg tablet Take 0.5 mg by mouth daily. ezetimibe/simvastatin (VYTORIN) 10/20 mg tablet 1 Tab Take 1 Tab by mouth at bed time daily. 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 See a area director for tachycarida ) Hyperlipidemia Denies CP or [...] patient and spouse Plan discussed with: anesthesiologist, COAL GETTER and SRNA. R LABORATORY TECHNICIAN documented in this encounter Plan of Treatment Care Team Description Date Type Specialty Ranjit Braun MD 1997 Counts Include 234 Beds At [facility] [address] [place] [address] [phone] Urge incontinence 03/30/2019 Hospital Encounter documented as of this encounter Results * ECG-SCAN (09/30/2018 12:00 AM COLOR LABORATORY TECHNICIAN) Narrative Performed At Ordered by an unspecified provider. documented in this encounter Visit Diagnoses Not on filedocumented in this encounter Administered Medications Action Date Dose Rate Site Medication Order MAR Action 09/30/2018 10:21 AM COLOR LABORATORY TECHNICIAN 2 g ceFAZolin (ANCEF) injection Given INTRA-PROCEDURE MED, Starting Wed09/30/18 at 1021, Until Wed09/30/18 at 1050, Anesthesia Intra-op 09/30/2018 10:25 AM COLOR LABORATORY TECHNICIAN 4 mg dexamethasone (DECADRON) injection Given Intravenous, INTRA-PROCEDURE MED, Starting Wed09/30/18 at 1025, Until Wed09/30/18 at 1050, Anesthesia Intra-op 09/30/2018 10:12 AM COLOR LABORATORY TECHNICIAN 2 drops dextran 70/hypromellose (GENTEAL TEARS; Given BION TEARS) ophthalmic solution INTRA-PROCEDURE MED, Starting Wed09/30/18 at 1012, Until Wed09/30/18 at 1050, Anesthesia Intra-op 09/30/2018 10:30 AM COLOR LABORATORY TECHNICIAN 10 mg ePHEDrine 50 mg/mL 50 mg in sodium Bolus chloride PF 0.9% 5 mL IV syringe 5 mL, INTRA-PROCEDURE MED(CONT), Starting Wed09/30/18 at 1015, Until Wed09/30/18 at 1050, Anesthesia Intra-op 10 mg Bolus 09/30/2018 10:22 AM COLOR LABORATORY TECHNICIAN 10 mg Given - New Bag 09/30/2018 10:15 AM COLOR LABORATORY TECHNICIAN 09/30/2018 10:10 AM COLOR LABORATORY TECHNICIAN 25 mcg fentaNYL citrate PF (SUBLIMAZE) Given injection INTRA-PROCEDURE MED, Starting Wed09/30/18 at 1010, Until Wed09/30/18 at 1050, Anesthesia Intra-op 09/30/2018 10:24 AM COLOR LABORATORY TECHNICIAN 0.2 mg glycopyrrolate (ROBINUL) injection Given INTRA-PROCEDURE MED, Starting Wed09/30/18 at 1015, Until Wed09/30/18 at 1050, Anesthesia Intra-op 0.2 mg Given 09/30/2018 10:15 AM COLOR LABORATORY TECHNICIAN 09/30/2018 11:33 AM COLOR LABORATORY TECHNICIAN 1,000 mL 20 mL/hr lactated ringers infusion Given - New 1,000 mL, 1,000 mL, Intravenous, at 20 Bag mL/hr, CONTINUOUS, Starting Wed09/30/18 at 0930, Until Wed09/30/18 at 1642, Pre-Op Given - New Bag 09/30/2018 9:55 AM COLOR LABORATORY TECHNICIAN 09/30/2018 10:10 AM COLOR LABORATORY TECHNICIAN 80 mg lidocaine (PF) injection Given INTRA-PROCEDURE MED, Starting Wed09/30/18 at 1010, Until Wed09/30/18 at 1050, Anesthesia Intra-op 09/30/2018 10:25 AM COLOR LABORATORY TECHNICIAN 4 mg ondansetron (ZOFRAN) injection Given Intravenous, INTRA-PROCEDURE MED, Starting Wed09/30/18 at 1025, Until Wed09/30/18 at 1050, Anesthesia Intra-op 09/30/2018 10:17 AM COLOR LABORATORY TECHNICIAN 40 mg propofol (DIPRIVAN) injection Given INTRA-PROCEDURE MED, Starting Wed09/30/18 at 1010, Until Wed09/30/18 at 1050, Anesthesia Intra-op 140 mg Given 09/30/2018 10:10 AM COLOR LABORATORY TECHNICIAN documented in this encounter
--- OUTSIDE RECORDS SUMMARY | 2019-01-30 07:24 | XMS REPORT | Encounter Summary ---
Author Author [facility] Organization [facility] Address Unknown Phone Unavailable Care Team Providers Care Knife Cutter Name Role Phone Alan Ramachanrdan MD Unavailable Shefali Herring MD Unavailable Breanna Broderick DO PCP Jody Salazar RN Unavailable Unavailable Jass Loving MD Unavailable Carla Bernal MD Unavailable Unavailable Louise Knott MD Unavailable aPrk Han RN Unavailable Unavailable Breanna Lazo MD Unavailable Unavailable Marjorie Wilburn RN Unavailable Unavailable Gumaro Lynne MD Unavailable Glory Ford RN Unavailable Unavailable Quintin Ivan RN Unavailable Unavailable Adeel Avila MD Unavailable Reason for Visit * Auth/Cert Referred By Contact Referred To Contact Status Reason Specialty Diagnoses / Procedures Diagnoses Urge urinary incontinence Urge urinary incontinence [N39.41] P rocedures CT CYSTOURETHROSCOPY INJ CHEMODENERVATION BLADDER CYSTOSCOPY WITH BOTOX INJECTION (150 UNITS) Encounter Details Care Team Description Date Type Department Shefali Herring MD [address] Ortho[facility]Med Pavilion L[address] [place] [address] CYSTOSCOPY WITH BOTOX INJECTION (150 UNITS) 09/30/2018 Surgery [facility] OR [address] [address] Social History Date Tobacco Use [...] 121.6 kg (268 lb) 10/01/2018 2:00 PM DIRT BIKE MECHANIC Weight 170.2 cm (5' 7") 10/01/2018 2:00 PM DIRT BIKE MECHANIC Height 41.97 10/01/2018 2:00 PM DIRT BIKE MECHANIC Body Mass Index documented in this encounter [...] 10/02/2018 Attending Physician: Inocente Kate MD Service: [facility] Q - [id number] Physician Summary completed [...] - 2-D + DOPPLER ECHOCARDIOGRAM Location Performed: [facility] Status: Final result Procedure Ordered By: Megan Cutler MD [phone] Referring Provider: Interpreting Physician: Aram Rojas MD Fellow: Location of Interp: [facility] Lokie Driver: Lindsey Diaz Machine: Siemens [id number] Indications: Atrial fibrillation Study done at patient [...] peak velocity 1.86 m/s Signed at 1538 DIRT BIKE MECHANIC Brief Hospital Course: The patient was admitted [...] this well. She was tra nsitioned to Eliquis. We recommended that she follow up with her primary bioassayist and have a o p atc or some sort of longer-term atrial fibrillation monitoring in order to dete rmine whether she needed long-term anticoagulation or if afib was truly ollie-pro [...] or concerns regarding your hospital stay. Call [phone] Discharging attending physician: INOCENTE KATE [[id number]] Regular Diet You have no dietary restriction. [...] in a 24 hour period. Call your bioassayist if you have to use this medication. [...] a follow up appointment with your primary bioassayist in the n ext 2-4 weeks. Pending items needing follow up: 1. Ambulatory cardiac monitoring 2. Determination of anticoagulation timeline Signed: Inocente Kate MD 10/05/2018 cc: Primary Care Physician: Breanna Broderick Verified Referring physicians: Breanna Broderick DO Additional provider(s): Dr. Елена Ang [address] [place] [address] [phone] documented in this encounter Discharge Instructions * Patient Instructions* Karly Mcmillan RN - 09/30/2018 10:54 AM DIRT BIKE MECHANIC Discharge Instructions: After Your Surgery Youve just [...] with your prescription medicines or other ove r-icl-rlnrkus (OTC) medicines. Some prescription medicines have acetaminophen [...] taking the se medicines. Date Last Reviewed: 06/25/[id number] [employer]. [address] [place] [address] 1906 7. All rights reserved. This information is not intended as a substitute for pro fessional medical care. Always follow your healthcare professional's instruction s. BIKE MECHANIC * Appointments* Inocente Kate MD - 10/02/2018 10:00 AM CDT Please schedule a follow up appointment with your primary bioassayist in the ne xt 2-4 weeks. * Pre-Anesthesia Patient Instructions* Lucille Gomez RN - 09/06/2018 12:11 PM DIRT BIKE MECHANIC GENERAL INFORMATION Before you come to the [...] responsible for the loss or breakage of personSmallRivers items. Remove nail urdu, makeup and all jewelry (including piercings) before comin g to the hospital. The morning of your procedure: brush your teeth and tongue do not smoke do not shave the area where you will have surgery What to bring to the hospital ID/ Insurance Card Tailings Worker card Official documents for legal guardianship [...] not receive a c all, please call [phone] before 4:30pm or [phone] after 4:30pm. Notify us at [facility]: if you need to cancel your procedure if you are going to be late Arrival at the [facility] [address] [place] [address] Park in the [address] Park[address]age, located directly across from the main entrance to the hospital. Laboratory Chemist parking is available from 7 AM to 4 PM Wednesday through Wednesday. Enter through the ground floor [facility] entrance and check in at the [...] if you need to provide a sample. BIKE MECHANIC * Pre-Anesthesia Medication Instructions* Lucille Gomez RN - 09/06/2018 12:13 PM DIRT BIKE MECHANIC YOUR MEDICATIONS: albuterol (VENTOLIN HFA, PROAIR HFA, [...] any medicine updates or questions . E-mail: [email or web address] Before going home from the hospital, please ask your doctor when you should re-s tart your medicines that were stopped before surgery. BIKE MECHANIC documented in this encounter Medications at Time [...] in a 24 hour period. Call your bioassayist if you have to use this medication. [...] documentation of discharge summary. Inocente Kate MD [facility] Q- [id number] * Angle Montgomery RN [...] to contact the pharmacist with any f urther questions. Harris Mckenzie PHARMD 10/02/2018 * Belia Hansen MD - 10/01/2018 5:16 PM DIRT BIKE MECHANIC Cardiology progress note. Subjective: No acute events overnight. Patient converted to sinus rhythm. However she is s inus bradycardia currently. Current Facility-Administered Medications Medication Dose Route Frequency Provider Last Rate Last Dose acetaminophen (TYLENOL) tablet 650 mg 650 mg Oral Q6H PRN Sanderse, Gumaro M, MD 650 mg at 10/01/18 1210 albuterol [...] tablet 5,000 Units 5,000 Units Oral QDAY Tayl Inocente choudhary MD 5,000 Units at 10/01/18 1210 [...] tablet 1 tablet 1 tabl et Oral QAM8 Gumaro Dietrich MD 1 tablet [...] may not repeat in ?24 hours) - [id number] at least 3. Discussed benefits and risk for anti-correlation. P atient is agreeable to proceed with anticoagulation at least temporary for the n ext 6 weeks. She will follow with outpatient cardiology with the results of the monitor monitor. Consideration for implantable loop recorder with discussion w [facility] outpatient bioassayist given 2 episodes of perioperative A. Fib to determin e the longevity of anticoagulate. BIKE MECHANIC * Inocente Kate MD - 10/01/2018 11:33 AM DIRT BIKE MECHANIC Progress Note - Medicine Today's Date: 10/01/2018 [...] insomnia, ADOLPH, morbid obesity who presents w [facility] new onset atrial fibrillation with RVR following procedure. Atrial fibrillation with RVRresolved Patient with symptoms of palpitations Chads Vasc score of 3 due to age, sex, hypertension Taking metoprolol AUTOMOTIVE ELECTRICAL HELPER 100 mg twice daily Started on diltiazem and converted to sinus rhythm on 09/30. Now with bradycar shirlene, asymptomatic. We will decrease metoprolol to 50 mg twice daily Continue therapeutic anticoagulation for now, okay to discharge on Eliquis Cardiology discussed flecainide for abortive therapy Patient to follow-up with her home bioassayist for zio patch monitoring to d etermine [...] patient and her granddaughter. Inocente Kate MD [facility] Q- [id number] __ Subjective: No acute overnight events. Patient converted to sinus rhythm overnight in the [facility]. She was asleep so could not [...] F) (10/01 0800) Pulse: (P) 40 (10/01 105) Respirations: (P) 18 PER MINUTE (10/01 105) [...] and other Diagnostics Review: Pertinent radiology reviewed. BIKE MECHANIC * Liza Hendricks RN - 10/01/2018 10:43 AM DIRT BIKE MECHANIC Patient takes 5,000u vitamin D daily. Currently not on SEP. Sent text page to CHARMAINE Del Rosario to notify. Tracking # [id number] RAH * Mary Rowley - 10/01/2018 2:20 AM DEBORAH MONTANO Swing 4 paged to notify that patient has been at lowest rate of cardizem drip for one hour, has converted to sinus bradycardia and is sustaining a HR of low 40's. Pt BP low 100s/50s and pt resting comfortably in bed. Per , okay to ANNIKA caldwell rip at this time. RN will continue to monitor. BIKE MECHANIC * Lynda Barroso RN - 09/30/2018 5:18 PM DIRT BIKE MECHANIC Patient arrived to room # (HC815*) via [...] Doc Flowsheet for additional wound details. INTERVENTIONS: BIKE MECHANIC * Gumaro Dietrich MD - 09/30/2018 5:00 PM DIRT BIKE MECHANIC Notified of preference for central line with esmolol infusion if duration antici pated to be prolonged. Since she has had minimal response to initial doses of e smolol, favor switching to Cardizem for rate control. Additionally, confirmed w ith her bioassayist that she does not have a history of tachybradycardia syndro me and therefore a short acting agent is not the most important characteristic o f the infused medication. Will switch to Cardizem with dose to titrate 5-15 mg to keep rate less than 110 greater than 60. Gumaro Dietrich MD BIKE MECHANIC * Lucille Gomez RN - 09/06/2018 12:06 PM DIRT BIKE MECHANIC PAC phone triage completed with patient for surgery on 09/27/[address] Cary jasso. Medications, allergies and medical history reviewed and updated in chart. Jarvis d last surgery on 03/29/18 and denies changes [...] and copy of instructions emailed to her BIKE MECHANIC documented in this encounter H&P Notes * Gumaro Dietrich MD - 09/30/2018 2:13 PM DIRT BIKE MECHANIC Admission H&P Department of Internal Medicine Assessment (current differential diagnosis) | Status Newonset atrial fibrillation with history of tachycardia (procedural physiol ogic stress v botulinum v ephedrine) | Asymptomatic, and the patient notes that historically had similar episodes.ERICH(2)DS(2)-VAsc score 3 and CVA risk ~3.2% pe r year for HTN, Age, Sex. Follows with a Prototype Deicer Assembler in [facility], and she notes she has had [...] 3:34 PM I spoke with her primary Prototype Deicer Assembler, who states after his note review that she has a history of palpitations, but no documented arrhythmia. Coronary artery disease | Asymptomatic. Prior to admission, on aspirin 81 mg da perry. Her primary Prototype Deicer Assembler highlighted that in 2006 she had a catheterizatio n that demonstrated mild coronary artery disease. RBBB | Not new. Noted on old EKG. Asthma | Controlled, with no evidence of exacerbation. Prior to admission, on S ingulair and albuterol asneeded. Has not regularly needed it. Tolerates beta -coy AUTOMOTIVE ELECTRICAL HELPER with no bronchospasm. Urinary incontinence | Status [...] mg every afternoon. ADOLPH | On CPAP AUTOMOTIVE ELECTRICAL HELPER Morbid obesity | Body mass index is [...] CBC/INR TSH *I spoke with her Primary Prototype Deicer Assembler: Dr. Елена Ang [address] [place] [phone] Pager (I spoke with Urology, who stated [...] jackie rial disease. I spoke with her bioassayist, and he highlighted that she had a [...] REPLACEMENT Left 09/14/2012 HIP REPLACEMENT Right 05/25/2013 CT CYSTOURETHROSCOPY INJ CHEMODENERVATION BLADDER N/A 10/22/2015 CYSTOSCOPY, INTRAVESICAL BOTOX INJECTION (150Units) performed by Shefali viera MD at [facility] OR/Periop CT CYSTOURETHROSCOPY INJ CHEMODENERVATION BLADDER N/A 04/21/2016 CYSTOSCOPY, INTRAVESICAL BOTOX INJECTION (150 UNITS) performed by Shefali rhodes MD at [facility] OR/Periop ABDOMINAL HERNIA REPAIR 05/2016 CT NDSC NJX IMPLT MATRL URT&/BLDR NCK N/A 10/23/2016 CYSTOSCOPY, INJECTION BOTOX (150 UNITS) performed by Shefali Herring MD at [facility] OR/Periop CT CYSTOURETHROSCOPY INJ CHEMODENERVATION BLADDER N/A 04/23/2017 CYSTOSCOPY, INJECTION BOTOX (150 UNITS) performed by Shefali Herring MD at [facility] OR/Periop CYSTOSCOPY N/A 09/28/2017 CYSTOSCOPY, INJECTION BOTOX (150 UNITS) performed by Shefali Herring MD at [facility] OR/Periop CT CYSTOURETHROSCOPY INJ CHEMODENERVATION BLADDER N/A 03/29/2018 CYSTOSCOPY, [...] 81 mg by mouth every morning. Provider, Hi storical ATORVASTATIN CALCIUM (LIPITOR PO) Take 1 Tab [...] PACU I spoke directly with the Urologist. BIKE MECHANIC * Shefali Herring MD - 09/30/2018 9:48 AM DIRT BIKE MECHANIC Admission History and Physical Examination Name: Mame [...] REPLACEMENT Left 09/14/2012 HIP REPLACEMENT Right 05/25/2013 CT CYSTOURETHROSCOPY INJ CHEMODENERVATION BLADDER N/A 10/22/2015 CYSTOSCOPY, INTRAVESICAL BOTOX INJECTION (150Units) performed by Shefali viera MD at [facility] OR/Periop CT CYSTOURETHROSCOPY INJ CHEMODENERVATION BLADDER N/A 04/21/2016 CYSTOSCOPY, INTRAVESICAL BOTOX INJECTION (150 UNITS) performed by Shefali rhodes MD at [facility] OR/Periop ABDOMINAL HERNIA REPAIR 05/2016 CT NDSC NJX IMPLT MATRL URT&/BLDR NCK N/A 10/23/2016 CYSTOSCOPY, INJECTION BOTOX (150 UNITS) performed by Shefali Herring MD at [facility] OR/Periop CT CYSTOURETHROSCOPY INJ CHEMODENERVATION BLADDER N/A 04/23/2017 CYSTOSCOPY, INJECTION BOTOX (150 UNITS) performed by Shefali Herring MD at [facility] OR/Periop CYSTOSCOPY N/A 09/28/2017 CYSTOSCOPY, INJECTION BOTOX (150 UNITS) performed by Shefali Herring MD at [facility] OR/Periop CT CYSTOURETHROSCOPY INJ CHEMODENERVATION BLADDER N/A 03/29/2018 CYSTOSCOPY, [...] Pertinent radiology reviewed. Malcom Chaidez MD Pager [phone] ATTESTATION I personally performed the westfall portions of the E/M visit, discussed case with re sident and concur with resident documentation of history, physical exam, assessm ent, and treatment plan unless otherwise noted. Staff name: Shefali Herring MD BIKE MECHANIC documented in this encounter Consult Notes * Megan Cutler MD - 09/30/2018 5:05 PM DIRT BIKE MECHANIC Associated Order(s): CONSULT CARDIOLOGY PHYSICIAN STAFF CARDIOLOGY CONSULT NOTE Admission Date: 09/30/2018 Code Status: Full Code Reason for Consultation: New onset atrial fibrillation History of Present Illness: This is a 73 y.o. white female patient that was admitted to [facility] 2 undergo Botox injection of her [...] was restored. Patient does follow-up with a bioassayist in [place], [place]. She underwent a left heart catheterization in 2006, she was not found to have any si gnificantly obstructive coronary artery disease. She was seen by her bioassayist a few days ago and was found to be stable. Shalini мария thinks that she did undergo evaluation with an electrocardiogram in the [facility] t few months and she was told [...] 163) Temp: 37.2 C (99 F) (09/30 163) Pulse: 106 (09/30 163) Respirations: 22 PER [...] another surgical procedure. Patient follows with a bioassayist in [place], [place] and she does not have coronary [...] diet 9. Patient will follow-up with her bioassayist in her hometown. Megan Cutler MD BIKE MECHANIC documented in this encounter Miscellaneous Notes * [...] Carlo He MD - 10/01/2018 3:50 AM DIRT BIKE MECHANIC Please page [phone] with any questions until 8am after that please page med vane az Q BIKE MECHANIC * Operative Report (Direct Entry) - Shefali Herring MD - 09/30/2018 10:25 AM DIRT BIKE MECHANIC OPERATIVE REPORT Name: Mame Archer is a 73 y.o. female : 1945 MRN#: [id number] DATE OF OPERATION: 09/30/2018 Surgeon(s) and Role: [...] Date Type Specialty Ranjit Braun MD [address] Ortho[facility] Pavilion [address] [place] [address] [phone] Urge incontinence 03/30/2019 Hospital Encounter documented as of this encounter Procedures Comments Procedure Name Priority Date/Time Associated Diagnosis CBC AND DIFF Routine 10/02/2018 5:49 AM CDT MAGNESIUM Routine 10/02/2018 5:49 AM CDT COMPREHENSIVE METABOLIC Routine 10/02/2018 PANEL 5:49 AM CDT 2-D + DOPPLER Routine 10/01/2018 ECHOCARDIOGRAM 2:00 PM DIRT BIKE MECHANIC CBC AND DIFF Routine 10/01/2018 4:29 AM DIRT BIKE MECHANIC THYROID STIMULATING Add on 10/01/2018 HORMONE-TSH 4:29 AM DIRT BIKE MECHANIC MAGNESIUM Routine 10/01/2018 4:29 AM DIRT BIKE MECHANIC HEMOGLOBIN A1C Add on 10/01/2018 4:29 AM DIRT BIKE MECHANIC LIPID PROFILE Routine 10/01/2018 4:29 AM DIRT BIKE MECHANIC COMPREHENSIVE METABOLIC Routine 10/01/2018 PANEL 4:29 AM DIRT BIKE MECHANIC TROPONIN-I STAT 09/30/2018 6:10 PM DIRT BIKE MECHANIC PROTIME INR (PT) STAT 09/30/2018 6:10 PM DIRT BIKE MECHANIC CBC STAT 09/30/2018 6:10 PM DIRT BIKE MECHANIC ECG 12-LEAD Routine 09/30/2018 4:42 PM DIRT BIKE MECHANIC TROPONIN-I 09/30/2018 2:13 PM DIRT BIKE MECHANIC PHOSPHORUS STAT 09/30/2018 2:13 PM DIRT BIKE MECHANIC MAGNESIUM STAT 09/30/2018 2:13 PM DIRT BIKE MECHANIC BASIC METABOLIC PANEL STAT 09/30/2018 2:13 PM DIRT BIKE MECHANIC CHEST SINGLE VIEW STAT 09/30/2018 2:11 PM DIRT BIKE MECHANIC CYSTOURETHROSCOPY WITH 09/30/2018 Urge urinary incontinence INJECTION FOR 9:30 AM DIRT BIKE MECHANIC CHEMODENERVATION OF THE BLADDER Special Needs 09/13 PER CHANGE FORM CASE MOVED FROM 09/27 TO 09/30 TO FOLLOW - Viola DEXTER RN ([phone]) TELEMETRY STRIPS-SCAN 09/30/2018 12:00 AM DIRT BIKE MECHANIC TELEMETRY STRIPS-SCAN 09/30/2018 12:00 AM DIRT BIKE MECHANIC TELEMETRY STRIPS-SCAN 09/30/2018 12:00 AM DIRT BIKE MECHANIC ECG-SCAN 09/30/2018 12:00 AM DIRT BIKE MECHANIC documented in this encounter Results * MAGNESIUM (10/02/2018 5:49 AM CDT) Magnesium 1.8 1.6 - 2.6 mg/dL [facility] Specimen Blood Performing Organization Address City/State/Zipcode Phone Number MAIN LAB [address] [place] [address] * COMPREHENSIVE METABOLIC PANEL (10/02/2018 5:49 AM [...] >60 >60 mL/min [facility] Comment: [place] The eGFR is not validated for use in drug dosing adjustments.Continue to use estimated creatinine clearance per dosing reference text.Please contact the Clinical Pharmacist for questions. eGFR >60 >60 mL/min [facility] [place] Comment: The eGFR is not validated for use in drug dosing adjustments.Continue to use estimated creatinine clearance per dosing reference text.Please contact the Clinical Pharmacist for questions. Specimen Blood Performing Organization Address City/State/Zipcode Phone Number [facility] [address] [place] [address] * CBC AND DIFF (10/02/2018 5:49 AM [...] Count Absolute 0.00 0 - 0.20 [facility] Basophil Count Specimen Blood Performing Organization Address City/State/Zipcode Phone Number [facility] [address] [place] [address] * 2-D + DOPPLER ECHOCARDIOGRAM (10/01/2018 2:00 PM DIRT BIKE MECHANIC) IVS 0.64 0.6 - 0.9 cm OTHER [...] 34 OTHER OUTSIDE Index LAB Cardiology Siemens [id number] OTHER OUTSIDE Ultrasound LAB Machine Left Ventricle [...] No Pericardial Effusion PASP=37mmHg Performing Organization Address City[facility] Phone Number OTHER OUTSIDE LAB * THYROID STIMULATING HORMONE-TSH (10/01/2018 4:29 AM DIRT BIKE MECHANIC) TSH 0.970 0.35 - 5.00 MCU/ML [facility] Specimen Performing Organization Address [facility] Phone Number [facility] [address] [place] [address] * HEMOGLOBIN A1C (10/01/2018 4:29 AM DIRT BIKE MECHANIC) Hemoglobin A1C 6.0 4.0 - 6.0 % [facility] Comment: The ADA recommends that most patients with type 1 and type 2 diabetes maintain an A1c level <7%. Specimen Performing Organization Address [facility] Phone Number [facility] [address] [place] [address] * MAGNESIUM (10/01/2018 4:29 AM DIRT BIKE MECHANIC) Magnesium 1.9 1.6 - 2.6 mg/dL [facility] Specimen Blood Performing Organization Address [facility] Phone Number [facility] [address] [place] [address] * COMPREHENSIVE METABOLIC PANEL (10/01/2018 4:29 AM DIRT BIKE MECHANIC) Sodium 141 137 - 147 MMOL/L [facility] [...] >60 >60 mL/min [facility] Comment: [place] The eGFR is not validated for use in drug dosing adjustments.Continue to use estimated creatinine clearance per dosing reference text.Please contact the Clinical Pharmacist for questions. eGFR >60 >60 mL/min [facility] [place] Comment: The eGFR is not validated for use in drug dosing adjustments.Continue to use estimated creatinine clearance per dosing reference text.Please contact the Clinical Pharmacist for questions. Specimen Blood Performing Organization Address City/State/Zipcode Phone Number [facility] [address] [place] [address] * CBC AND DIFF (10/01/2018 4:29 AM DIRT BIKE MECHANIC) White Blood 9.1 4.5 - 11.0 [facility] [...] Address City/State/Zipcode Phone Number MAIN LAB [address] [place] [address] * LIPID PROFILE (10/01/2018 4:29 AM DIRT BIKE MECHANIC) Pathologist [facility] Cholesterol 123 <200 MG/DL MAIN LAB Triglycerides 155 (H) <150 MG/DL [facility] HDL 37 (L) >40 MG/DL [facility] LDL 62 <100 MG/DL [facility] VLDL 31 MG/DL [facility] Non HDL 86 MG/DL MAIN [facility] Cholesterol Comment: Calculated non-HDL Cholesterol (non-HDL-C) indirectly measures LDL-C, Lp(a), IDL-C, and VLDL-C.It is a surrogate marker for Apoprotein B.Goal should be less than 130 mg/dL. Specimen Blood Performing Organization Address City/[facility]/Zipcode Phone Number MAIN LAB [address] [place] [phone] * CBC (09/30/2018 6:10 PM DIRT BIKE MECHANIC) [facility] White Blood 10.2 4.5 - 11.0 [facility] Cells RBC 5.06 (H) 4.0 - 5.0 M/[facility] Hemoglobin 15.1 (H) 12.0 - 15.0 GM/DL [facility]IN [facility] Hematocrit 42.7 36 - 45 % [facility] MCV 84.3 80 - 100 FL [facility]IN [facility] MCH 29.7 26 - 34 PG MAIN LAB MCHC 35.3 32.0 - 36.0 G/DL [facility] RDW 14.5 11 - 15 % MAIN LAB Platelet Count 261 150 - 400 [facility] MPV 8.5 7 - 11 FL [facility]IN [facility] Specimen Blood Performing Organization Address City/[facility] Phone Number [facility] [address] [place] [address] * PROTIME INR (PT) (09/30/2018 6:10 PM DIRT BIKE MECHANIC) Pathologist [facility] INR 1.0 0.8 - 1.2 MAIN LAB Specimen Blood Performing Organization Address City/[facility] Phone Number [facility] [address] [place] [address] * TROPONIN-I (09/30/2018 6:10 PM DIRT BIKE MECHANIC) [facility] Troponin-I 0.01 0.0 - 0.05 NG/ML [facility] Specimen Blood Performing Organization Address City/[facility] Phone Number [facility] [address] [place] [address] * TROPONIN-I (09/30/2018 2:13 PM DIRT BIKE MECHANIC) Troponin-I 0.01 0.0 - 0.05 NG/ML [facility] Specimen Performing Organization Address [facility] Phone Number [facility] [address] [place] [address] * PHOSPHORUS (09/30/2018 2:13 PM DIRT BIKE MECHANIC) Phosphorus 3.4Comment: NOTE NEW REFERENCE 2.0 - 4.5 MG/DL [facility] RANGES Specimen Blood Performing Organization Address [facility] Phone Number [facility] [address] [place] [address] * MAGNESIUM (09/30/2018 2:13 PM DIRT BIKE MECHANIC) Magnesium 1.9 1.6 - 2.6 mg/dL [facility] Specimen Blood Performing Organization Address [facility] Phone Number [facility] [address] [place] [address] * BASIC METABOLIC PANEL (09/30/2018 2:13 PM DIRT BIKE MECHANIC) Sodium 142 137 - 147 MMOL/L [facility] [...] >60 >60 mL/min [facility] Comment: [place] The eGFR is not validated for use in drug dosing adjustments.Continue to use estimated creatinine clearance per dosing reference text.Please contact the Clinical Pharmacist for questions. eGFR >60 >60 mL/min [facility] [place] Comment: The eGFR is not validated for use in drug dosing adjustments.Continue to use estimated creatinine clearance per dosing reference text.Please contact the Clinical Pharmacist for questions. Specimen Blood Performing Organization Address City/[facility]/Zipcode Phone Number MAIN LAB [id number] [place] [address] * CHEST SINGLE VIEW (09/30/2018 2:11 PM DIRT BIKE MECHANIC) Specimen Impressions Performed At Poor depth of [...] Interface, Radiant Results - 09/30/2018 2:15 PM DIRT BIKE MECHANIC Single view of the chest Clinical history: [...] on 09/30/2018 2:11 PM. Performing Organization Address [facility]/Zipcode Phone Number [facility] RESULTS * TELEMETRY STRIPS-SCAN (09/30/2018 12:00 AM DIRT BIKE MECHANIC) Narrative Performed At Ordered by an unspecified provider. * TELEMETRY STRIPS-SCAN (09/30/2018 12:00 AM DIRT BIKE MECHANIC) Narrative Performed At Ordered by an unspecified provider. * TELEMETRY STRIPS-SCAN (09/30/2018 12:00 AM DIRT BIKE MECHANIC) Narrative Performed At Ordered by an unspecified provider. * ECG-SCAN (09/30/2018 12:00 AM DIRT BIKE MECHANIC) Narrative Performed At Ordered by an unspecified provider. documented in this encounter Visit Diagnoses Diagnosis Urge urinary incontinence Urge incontinence documented in this encounter Admitting Diagnoses Diagnosis Atrial flutter with rapid ventricular response (HCC) Atrial flutter documented in this encounter Administered Medications Action Date Dose Rate Site Medication Order MAR Action 10/01/2018 12:10 PM DIRT BIKE MECHANIC 650 mg acetaminophen (TYLENOL) tablet 650 mg [...] juice., 10 mg Given 10/01/2018 10:03 AM DIRT BIKE MECHANIC 10 mg Given 09/30/2018 5:47 PM DIRT BIKE MECHANIC 10/02/2018 10:13 AM CDT 81 mg aspirin EC tablet 81 mg Given 81 mg, Oral, DAILY, First dose on Wed10/01/18 at 0900, Until Discontinued 81 mg Given 10/01/2018 10:04 AM DIRT BIKE MECHANIC 10/01/2018 8:37 PM DIRT BIKE MECHANIC 80 mg atorvastatin (LIPITOR) tablet 80 mg Given 80 mg, Oral, AT BEDTIME DAILY, First dose on Wed09/30/18 at 2100, Until Discontinued 80 mg Given 09/30/2018 9:05 PM DIRT BIKE MECHANIC 10/02/2018 10:13 AM CDT 5,000 Units cholecalciferol (VITAMIN D-3) tablet Given 5,000 Units 5,000 Units, Oral, DAILY, First dose on Wed10/01/18 at 1245, Until Discontinued 5,000 Units Given 10/01/2018 12:10 PM DIRT BIKE MECHANIC 10/02/2018 6:07 AM CDT 120 mg Abdominal [...] mg Abdominal Tissue Given 10/01/2018 5:48 PM DIRT BIKE MECHANIC 120 mg Abdominal Tissue Given 10/01/2018 6:05 AM DIRT BIKE MECHANIC 10/02/2018 10:13 AM CDT 0.5 mg estradiol (ESTRACE) tablet 0.5 mg Given 0.5 mg, Oral, DAILY, First dose on Wed10/01/18 at 0900, Until Discontinued 0.5 mg Given 10/01/2018 10:05 AM DIRT BIKE MECHANIC metoprolol tartrate (LOPRESSOR) tablet 50 mg 50 mg, Oral, TWICE DAILY, First dose on Wed10/01/18 at 2100, Until Discontinued, Hold for heart rate < 60 bpm Hold if SBP less 100, 10/01/2018 8:37 PM DIRT BIKE MECHANIC 10 mg montelukast (SINGULAIR) tablet 10 mg Given 10 mg, Oral, AT BEDTIME DAILY, First dose on Wed09/30/18 at 2100, Until Discontinued 10 mg Given 09/30/2018 9:05 PM DIRT BIKE MECHANIC 09/30/2018 10:15 AM DIRT BIKE MECHANIC 150 Units ONAbotulinum toxin A (BOTOX) injection Given INTRA-PROCEDURE MED, Starting Wed09/30/18 at 1026, Until Wed09/30/18 at 1037, Intra-op 10/02/2018 10:13 AM CDT 150 mg sertraline (ZOLOFT) tablet 150 mg Given 150 mg, Oral, EVERY MORNING, First dose on Wed10/01/18 at 0800, Until Discontinued 150 mg Given 10/01/2018 10:04 AM DIRT BIKE MECHANIC 09/30/2018 10:26 AM DIRT BIKE MECHANIC 3,000 mL sodium chloride 0.9 % irrigation bag Given INTRA-PROCEDURE MED, Starting Wed09/30/18 at 1026, Until Wed09/30/18 at 1037, Intra-op 10/01/2018 8:37 PM DIRT BIKE MECHANIC 50 mg traZODone (DESYREL) tablet 50 mg Given 50 mg, Oral, AT BEDTIME DAILY, First dose on Wed09/30/18 at 2100, Until Discontinued 50 mg Given 09/30/2018 9:05 PM DIRT BIKE MECHANIC 10/02/2018 10:14 AM CDT 1 tablet triamterene-hydrochlorothiazide Given (MAXZIDE) 37.5-25 mg tablet 1 tablet 1 tablet, Oral, EVERY MORNING, First dose on Wed10/01/18 at 0800, Until Discontinued 1 tablet Given 10/01/2018 10:04 AM DIRT BIKE MECHANIC documented in this encounter
[2019-01-30] MEDS ORDERED: ISOPROTERENOL 0.2 MG/D5W 50 ML IV ONE (07:30)
[2019-01-30] MEDS ORDERED: proPOfol 200 MG/20 ML (DIPRIVAN) VIAL IV ONE (07:44)
[2019-01-30] MEDS ORDERED: ONDANSETRON 4 MG/2 ML (SDV) Z0FRAN ONE (07:44)
[2019-01-30] MEDS ORDERED: MIDAZOLAM 2 MG/2 ML (VERSED) VIAL ONE (07:44)
[2019-01-30] MEDS ORDERED: SEVOFLURANE (ULTANE) 15 ML INHAL SOLN ONE ×2 (07:45→10:55)
[2019-01-30 07:50] LABS: MEAN PLATELET VOLUME 9.6 FL (7.4-10.4); RED CELL DISTRIBUTION WIDTH 14.8 % (10.0-14.5); WHITE BLOOD COUNT 7.5 10^3/uL (4.3-11.0)
[2019-01-30 08:07] LABS: ALANINE AMINOTRANSFERASE 18 U/L (0-55); ALBUMIN 4.1 GM/DL (3.2-4.5); ALKALINE PHOSPHATASE 112 U/L (40-136); BILIRUBIN,TOTAL 0.7 MG/DL (0.1-1.0); BUN/CREATININE RATIO 17; CALCIUM 9.7 MG/DL (8.5-10.1); CARBON DIOXIDE 28 MMOL/L (21-32); CHLORIDE 105 MMOL/L (98-107); CREATININE SERUM 0.87 MG/DL (0.60-1.30); GFR ESTIMATED > 60; GLUCOSE 117 MG/DL (70-105); POTASSIUM 3.7 MMOL/L (3.6-5.0); SODIUM 143 MMOL/L (135-145); TOTAL PROTEIN 6.8 GM/DL (6.4-8.2)
[2019-01-30] MEDS ORDERED: fentaNYL INJECTION 100 MCG/2 ML AMP ONE (08:10)
[2019-01-30 08:30] LABS: INR 1.1 (0.8-1.4); PROTHROMBIN TIME PATIENT 14.9 SEC (12.2-14.7)
[2019-01-30] MEDS ORDERED: PATIENT MAY USE OWN MEDS, ALL PO SCH (10:45)
--- NOTE | 2019-01-30 10:45 | Electrophysiology Procedure ---
EP Procedure DATE OF SERVICE:01/30/19 REFERRING PHYSICIAN: Елена Ang MD, [facility] DIRECTOR: Divya Thompson MD, [facility] INDICATION: symptomatic typical atrial flutter. PREOPERATIVE DIAGNOSIS:symptomatic typical atrial flutter. POSTOPERATIVE DIAGNOSES: successful typical atrial flutter ablation. HISTORY: this is a 73-year-old lady with history of symptomatic typical atrial flutter and atrial fibrillation. The patient is planned for comprehensive EP study and ablation. PROCEDURE PERFORMED: 1. Comprehensive EP study with induction. 2. Fluoroscopy. 3. left atrial pacing and recording. 4. Drug infusion. 5. Ablation of typical atrial flutter. 6. Comprehensive 3D mapping with the carto system. COMPLICATION: None. ESTIMATED BLOOD LOSS: 10 mL. CONTRAST USED: None. FLUOROSCOPY TIME: 12.4 minutes. FLUOROSCOPY DOSE: 359 mgy. SPECIMENS: None. ANESTHESIA: Done by our anesthesia colleagues. ANTICOAGULATION: uninterrupted oral anticoagulation. PROCEDURE IN DETAIL: After informed consent was taken, the patient was brought to the EP lab. Anesthesia was provided by our anesthesia colleagues. The patient was draped and prepped in the usual sterile fashion. The patient presented to the EP lab in sinus rhythm. Access was gained in the right femoral vein with a 6-Brazilian and an 8-Brazilian sheath. Left access in left femoral vein was gained with 5-Brazilian and 6-Brazilian sheath respectively. High right atrial catheter was an ablation catheter, right ventricular catheter was placed, his catheter and the CS catheter were also placed. A comprehensive EP study was done. left atrial pacing and recording was done which did not demonstrate left lateral pathway. dual AV marla physiology was not demonstrated. RV pacing demonstrated concentric atrial activation. RV pacing at 600 ms demonstrated VA dissociation. Typical atrial flutter was not induced with rapid atrial pacing with and without Isuprel infusion. A 3D electroanatomic mapping was donewith the carto system. Ablation was performed in the cavotricuspid isthmus.CS pacing and pacing from the ablation catheter at different positions on the lateral side of the ablation line were used to verify bidirectional block. We then waited for 30 minutes and rechecked and confirmed bidirectional block.Isuprel was given post-procedure, however, we could not induce atrial flutter.The patienttolerated the procedure well and did not have any complication. The patientleft the lab in sinus rhythm. Total ablation time was 652 seconds. MEASUREMENTS/EP STUDY: AV Wenckebach when pacing at 320 ms, Retrograde Wenckebach when pacing at 700 ms, Atrial ERP 600/340 ms, Retrograde ERP was 750/520 ms, AH interval 1150 ms, AH interval 95 ms, HV interval 50 ms, FL interval 135 ms, QRS duration 74 ms, QT interval 399 ms, R-R interval 1097 ms, dual AV marla physiology not demonstrated, Left atrial pacing and recording did not demonstrate left lateral pathway, RV pacing showed VA dissociation at cycle length 600 ms, RV pacing showed concentric atrial activation. On Isuprel 4 mcg/min: AV Wenckebach cycle length 320 ms, Retrograde Wenckebach cycle length 420 ms, Atrial ERP 600/220 ms, Retrograde ERP 600/290 ms. PLAN: The patient will be observed overnight and will be discharged home tomorrow with precise followup instructions. Divya Thompson MD, [facility] Cardiac Electrophysiology Sosa THOMPSON MD Jan 30, 2019 10:45
--- NOTE | 2019-01-30 10:50 | History & Physicial-Cardiolgy ---
HPI-Cardiology Cardiology Consultation: Date of Consultation 01/30/19 Date of Admission Attending Physician Sosa Thompson MD Admitting Physician Breanna Darnell DO Consulting Physician Sosa THOMPSON MD HPI: Time Seen by a Provider: 07:50 Chief Complaint: symptomatic atrial flutter this is a 73-year-old lady who has been referred by Dr. Ang for typical atrial flutter. She also has history of atrial fibrillation and is on oral anticoagulation and Cardizem. Review of Systems-Cardiology Review of Systems Constitutional: As described under HPI; No As described under HPI, No no symptoms reported, No chills, No fever, No lightheadedness Eyes: No As described under HPI, No no symptoms reported, No blindness, No blurred vision, No contact lenses, No drainage, No decreased acuity, No foreign body sensation, No pain, No vision change Ears/Nose/Throat: No As described under HPI, No no symptoms reported, No chronic hearing loss, No ear discharge, No ear pain, No nasal drainage, No ulcerations Respiratory: No no symptoms reported; As described under HPI; No As described under HPI, No cough, No orthopnea, No shortness of breath, No SOB with excertion Cardiovascular: No no symptoms reported; As described under HPI; No As described under HPI, No chest pain, No edema, No irregular heart rate, No lightheadedness; palpitations Gastrointestinal: No no symptoms reported, No As described under HPI, No abdomen distended, No abdominal pain, No blood streaked bowels, No constipation, No diarrhea, No nausea, No vomiting, No stool coloration changes Genitourinary: No As described under HPI, No burning, No dysuria, No discharge, No frequency, No flank pain, No hematuria, No urgency : Yes : No Skin: No rash, No skin related problems, No ulcerations Psychiatric/Neurological: No anxiety, No depression, No seizure, No focal weakness, No syncope Hematologic: No bleeding abnormalities DAA-Nuhokp-Ymrpom Hx Patient Social History Alcohol Use: Denies Use Recreational Drug Use: No Smoking Status: Never a Smoker 2nd Hand Smoke Exposure: Yes Recent Foreign Travel: No Recent Infectious Disease Expo: No Immunizations Up To Date Tetanus Booster (TDap): Less than 5yrs Date of Pneumonia Vaccine: May 04, 2017 Date of Influenza Vaccine: May 04, 2018 Past Medical History PMH As described under Assessment. Family Medical History Family Medical History: She reports her mother and father both had CAD and HTN. Family History: Arthritis 19 MOTHER Cataracts 19 FATHER 19 MOTHER Colon cancer 19 FATHER Deafness or hearing loss 19 FATHER Dementia 19 FATHER FH: macular degeneration 19 MOTHER FH: prostate cancer 19 FATHER FH: skin cancer 19 FATHER Gout 19 MOTHER Hypertension 19 FATHER 19 MOTHER Myocardial infarction 19 FATHER 19 MOTHER Allergies and Home Medications Allergies Coded Allergies: sulfamethoxazole (Verified Allergy, Intermediate, rash, SOB, 10/23/18) trimethoprim (Verified Allergy, Intermediate, rash, SOB, 10/23/18) cephalexin (Verified Allergy, Unknown, 10/02/18) Home Medications Albuterol Sulfate 1 Puff Puff, 2 PUFF IH Q4H PRN for SHORTNESS OF BREATH, (Reported) 1 PUFF = 90 MCG Albuterol Sulfate 2.5 Mg/3 Ml Vial.neb, 2.5 MG NEB Q4H PRN for SHORTNESS OF BREATH, (Reported) Apixaban 5 Mg Tablet, 5 MG PO BID, (Reported) Atorvastatin Calcium 20 Mg Tablet, 20 MG PO HS, (Reported) Cholecalciferol 5,000 Unit Capsule, 5,000 UNIT PO DAILY, (Reported) Diltiazem HCl 240 Mg Capsule.er, 240 MG PO DAILY, (Reported) Doxazosin Mesylate 2 Mg Tablet, 2 MG PO HS, (Reported) Estradiol 0.5 Mg Tablet, 0.5 MG PO DAILY, (Reported) Flecainide Acetate 100 Mg Tablet, 100 MG PO BID, (Reported) Fluticasone Propionate 16 Gm [place].susp, 2 SPRAYS NS HS PRN for ALLERGIES, (Reported) Fluticasone/Salmeterol 1 Each Blst.w.dev, 1 PUFF INH BID, (Reported) Furosemide 40 Mg Tablet, 40 MG PO DAILY Prescribed by: RASHAUN HORN on 12/20/18856 Lisinopril 10 Mg Tablet, 10 MG PO DAILY Prescribed by: RASHAUN HORN on 12/20/18856 Loratadine 10 Mg Tablet, 10 MG PO DAILY Prescribed by: BREANNA DARNELL on 12/20/18954 Metoprolol Succinate 50 Mg Tab.er.24h, 50 MG PO DAILY Prescribed by: RASHAUN HORN on 12/20/18856 Montelukast Sodium 10 Mg Tablet, 10 MG PO HS, (Reported) Potassium Chloride 10 Meq Tablet.er, 20 MEQ PO DAILY@0700 Prescribed by: RASHAUN HORN on 12/20/18 0857 Sertraline HCl 100 Mg Tablet, 150 MG PO DAILY, (Reported) TAKES 1 & 1/2 (100MG) TABLET Trazodone HCl 50 Mg Tablet, 50 MG PO HS, (Reported) Patient Home Medication List Home Medication List Reviewed: Yes Physical Exam-Cardiology Physical Exam Vital Signs/I&O 01/30/19 07:37 Temp 100.2 Pulse 69 Resp 16 B/P (MAP) 173/90 (117) Pulse Ox 95 O2 Delivery Room Air Capillary Refill : Constitutional: appears stated age, AAO x 3; No apparent distress; well- developed, well-nourished HEENT: PERRL; No discharge; hearing is well preserved, oral hygience is good; No ulceration, No xanthelasmas are seen Neck: No carotid bruit; carotid pulses are 2 + bilaterally Respiratory: No accessory muscle use, No respiratory distress, No chest tender, No chest expansion is symmetric; chest is bilaterally symmetric; No lungs clear to percussion, No lungs clear to auscultation, No crackles, No rhonchi, No rales, No stridor, No wheezing, No pleural rub, No other Cardiovascular: regular rate-rhythm; No irregularly irregular, No extra beats, No parasternal heave is noted, No JVD, No edema, No bradycardia, No tachycardia, No point of maximal impulse, No cardiac thrills are palpable; S1 and S2; No gallop/S3, No gallop/S4, No diastolic murmur, No systolic murmur, No friction rub, No click, No other Gastrointestinal: No tender, No soft, No round, No distended, No pulsatile mass, No organomegaly, No guarding, No rebound, No tenderness, No hernia, No mass, No audible bowel sounds, No abnormal bowel sounds, No abdominal bruits, No spleenomegaly, No other Rectal: deferred Extremities: No clubbing, No cyanosis, No significant edema Neurologic/Psychiatric: no motor/sensory deficits, alert, normal mood/affect, oriented x 3, power is 5/5 both on sides Skin: No rash, No ulcerations Data Review Labs Laboratory Tests 01/30/19 07:35: White Blood Count 7.5, Red Blood Count 4.97, Hemoglobin 14.0, Hematocrit 43, Mean Corpuscular Volume 86, Mean Corpuscular Hemoglobin 28, Mean Corpuscular Hemoglobin Concent 33, Red Cell Distribution Width 14.8H, Platelet Count 253, Mean Platelet Volume 9.6, Prothrombin Time 14.9H, INR Comment 1.1, Activated Partial Thromboplast Time 29, Sodium Level 143, Potassium Level 3.7, Chloride Level 105, Carbon Dioxide Level 28, Anion Gap 10, Blood Urea Nitrogen 15, Creatinine 0.87, Estimat Glomerular Filtration Rate > 60, BUN/Creatinine Ratio 17, Glucose Level 117H, Calcium Level 9.7, Corrected Calcium 9.6, Total Bilirubin 0.7, Aspartate Amino Transf (AST/SGOT) 15, Alanine Aminotransferase (ALT/SGPT) 18, Alkaline Phosphatase 112, Total Protein 6.8, Albumin 4.1 A/P-Cardiology Assessment/Admission Diagnosis symptomatic typical atrial flutter, Paroxysmal atrial fibrillation Admission Status: Observation Plan typical atrial flutter ablation is recommended. Sosa THOMPSON MD Jan 30, 2019 10:50
[2019-01-30] MEDS ORDERED: ONDANSETRON 4 MG/2 ML (SDV) Z0FRAN IVP PRN (11:30)
[2019-01-30] MEDS ORDERED: morphine INJ 10 MG/ML 1ML (SYR OR VIAL) IVP ONE (11:30)
[2019-01-30] MEDS ORDERED: MEPERIDINE (DEMEROL) INJ 50 MG/ML IVP ONE (11:30)
--- NOTE | 2019-01-30 12:10 | NUR ---
TUSHAR ESTEVEZ admitted to room CU9-1, with an admitting diagnosis of S/P EP, on 01/30/19 from PACU via BED, accompanied by STAFF.TUSHAR ESTEVEZ introduced to surroundings, call light, bed controls, phone, TV, temperature control, lights, meal times, smoking policy, visitor policy, side rail policy, bathrooms and showers. Patient Rights given to patient in the handbook. TUSHAR ESTEVEZ verbalizes understanding that [facility] is not responsible for the loss or damage to any personal effects or valuables that are kept in the patients posession during their hospitalization. The following Patient Care Plans were discussed with the PT: Discharge Planning, HIGH RISK BLEEDING,PAIN, and KNOWLEDGE DEFICIT. TUSHAR ESTEVEZ verbalizes understanding of Interdisciplinary Patient Education. Patient and family were informed about the Rapid Response Team and its purpose.
[2019-01-30] MEDS: NS IV 1000 ML 1,000 ML IV SCH ×2 (12:31→20:51)
[2019-01-30] MEDS ORDERED: FLUTICASONE NASAL SPRAY (FLONASE) 16 GM BTL NS PRN (19:30)
[2019-01-30] MEDS ORDERED: RT-ALBUTEROL SULF 2.5 MG/3 ML PRE-MIX VIAL IH PRN ×2 (19:30)
[2019-01-30] MEDS: FLECAINIDE 100 MG (TAMBOCOR) TAB PO SCH (20:49)
[2019-01-30] MEDS: APIXABAN 5 MG (ELIQUIS) TABLET PO SCH (20:50)
[2019-01-30] MEDS ORDERED: NON-FORMULARY MEDICATION 1 EA EA (Flecainide Acetate 100 MG) PO SCH (21:00)
[2019-01-30] MEDS ORDERED: ATORVASTATIN 20 MG (LIPITOR) TABLET PO SCH (21:00)
[2019-01-30] MEDS ORDERED: MONTELUKAST 10 MG (SINGULAIR) TAB PO SCH (21:00)
[2019-01-30] MEDS ORDERED: APIXABAN 5 MG (ELIQUIS) TABLET PO SCH (21:00)
[2019-01-30] MEDS ORDERED: doxAzosin 2 MG (CARDURA) TAB PO SCH (21:00)
[2019-01-30] MEDS ORDERED: NON-FORMULARY MEDICATION 1 EA EA (Fluticasone/Salmeterol (Advair 100-50 Diskus) 1 PUFF) INH SCH (21:00)
[2019-01-30] MEDS ORDERED: traZODone 50 MG (DESYREL) TAB PO SCH (21:00)
[2019-01-31] VITALS: BP 114/65
[2019-01-31 03:58] LABS: HEMOGLOBIN 12.5 G/DL (11.5-16.0); MEAN PLATELET VOLUME 9.5 FL (7.4-10.4); RED CELL DISTRIBUTION WIDTH 14.3 % (10.0-14.5); WHITE BLOOD COUNT 7.6 10^3/uL (4.3-11.0)
[2019-01-31 04:19] LABS: BUN/CREATININE RATIO 16; CALCIUM 8.6 MG/DL (8.5-10.1); CARBON DIOXIDE 24 MMOL/L (21-32); CHLORIDE 110 MMOL/L (98-107); CREATININE SERUM 0.74 MG/DL (0.60-1.30); GFR ESTIMATED > 60; GLUCOSE 102 MG/DL (70-105); POTASSIUM 4.1 MMOL/L (3.6-5.0); SODIUM 143 MMOL/L (135-145)
[2019-01-31] MEDS ORDERED: KCL 10 MEQ TAB (MICRO K) PO SCH (07:00)
[2019-01-31 08:00] VITALS: BP 138/76
[2019-01-31] MEDS: FLECAINIDE 100 MG (TAMBOCOR) TAB PO SCH (08:50)
[2019-01-31] MEDS: APIXABAN 5 MG (ELIQUIS) TABLET PO SCH (08:53)
[2019-01-31] MEDS ORDERED: FUROSEMIDE 40 MG (LASIX) TAB PO SCH (09:00)
[2019-01-31] MEDS ORDERED: VITAMIN D3 5,000 UNITS (CHOLECALCIFEROL ) CAPSULE PO SCH (09:00)
[2019-01-31] MEDS ORDERED: meTOproloL SUCCINATE 50 MG (TOPROL XL) TAB PO SCH (09:00)
[2019-01-31] MEDS ORDERED: ESTRADIOL 1 MG TAB (ESTRACE) PO SCH (09:00)
[2019-01-31] MEDS ORDERED: lisINopril 10 MG (PRINIVIL) TABLET PO SCH (09:00)
[2019-01-31] MEDS ORDERED: NON-FORMULARY MEDICATION 1 EA EA (Estradiol (Estradiol Tablet) 0.5 MG) PO SCH (09:00)
[2019-01-31] MEDS ORDERED: SERTRALINE 100 MG (ZOLOFT) TAB PO SCH (09:00)
[2019-01-31] MEDS ORDERED: LORATADINE (CLARITIN) 10 MG TAB PO SCH (09:00)
[2019-01-31] MEDS ORDERED: DILTIAZEM 240 MG (CARDIZEM CD) CAP PO SCH (09:00)
[2019-01-31] MEDS ORDERED: NON-FORMULARY MEDICATION 1 EA EA (Diltiazem HCl (Diltiazem ER) 240 MG) PO SCH (09:00)
[2019-01-31] MEDS: NS IV 1000 ML 1,000 ML IV SCH (09:03)
[2019-01-31] MEDS: RT-ADVAIR HFA 45/21 MCG PER PUFF IH SCH (09:04)
--- NOTE | 2019-01-31 09:15 | Anesthesia-General Post-Op ---
General Patient Condition Mental Status/LOC: Same as Preop Cardiovascular: Satisfactory Nausea/Vomiting: Absent Respiratory: Satisfactory Pain: Controlled Complications: Absent Post Op Complications Complications None Follow Up Care/Instructions Patient Instructions None needed. Anesthesia/Patient Condition Patient Condition Patient is doing well, no complaints, stable vital signs, no apparent adverse anesthesia problems. No complications reported per nursing. D/C home per [facility] Criteria: Yes CHEKO PARKS CRNA Jan 31, 2019 09:15
--- NOTE | 2019-01-31 09:46 | Cardiology Discharge Summary ---
Diagnosis/Chief Complaint Date of Admission 01/30/2019 Date of Discharge 01/31/2019 Admission Diagnosis Typical atrial flutter Final/Discharge Diagnosis Successful typical atrial flutter ablation Chief Complaint/HPI Chief Complaint/HPI this is a 73-year-old lady who has been referred by Dr. Ang for typical atrial flutter. She also has history of atrial fibrillation and is on oral anticoagulation and Cardizem. Discharge Summary Procedures Typical atrial flutter ablation. Discharge Physical Examination Unremarkable. Hospital Course Was the Problem List Reviewed?: Yes Stable. Pending Labs Discussion & Recommendations Discussion Discharge took over 30 minutes to complete. All discharge instructions were discussed at length. The procedure was discussed at length. Patient will continue oral anticoagulation and rate controlling agent. I will see the patient in 2-3 weeks. Follow up appt.: Dr. Thompson in 3 weeks. Dicharge Diet: Cardiac Diet Activity as Tolerated: Yes Home Medications Reviewed patient Home Medication Reconciliation performed by pharmacy medication reconciliations property maintenance technician and/or nursing. Patients Allergies have been reviewed. Discharge Home Medications: Reviewed and agree with Discharge Medication list on patient's Discharge Instruction sheet Condition at discharge Stable. Instructions to patient/family Discussed with the patient. Sosa THOMPSON MD Jan 31, 2019 09:46
--- NOTE | 2019-01-31 09:47 | Discharge Inst-Post CATH ---
Discharge Inst-CATH/EP Post Cardiac Cath/EP D/C Inst Follow Up/Plan Dr Thompson in 3-4 weeks. <b>CARDIAC CATH/EP PROCEDURE DISCHARGE INSTRUCTIONS</b> ACTIVITY * Go Home directly and rest. * Limit activity of the leg (or wrist if it was used) for 7 days including aerobics, swimming, jogging, bicycling, etc. * Restrict stair-climbing for 7 days if possible, if not, climb up with your non-cath leg, then bring together on the same step. * Avoid lifting, pushing, pulling or excessive movement of the affected extremity for 7 days. * Customary sexual activity may be resumed after 2 days-use caution not to use a position that strains or causes pain to the affected extremity. * No driving for 24 hours. * NO SMOKING. * Avoid straining for bowel movements for 7 days. * Gentle walking on level ground is allowed. * Returning to work will depend on the type of procedure and the results. Your doctor will discuss this with you. CALL YOUR DOCTOR FOR ANY OF THE FOLLOWING: *If bleeding from the puncture site occurs- Apply gentle pressure to site with clean cloth and call your doctor or EMS. * If a knot or lump forms under the skin, increases in size, or causes pain. * If bruising appears to be worsening or moving further down your leg instead of disappearing. * Temperature above 101 F. CARE OF YOUR GROIN INCISION; * Bruising or purple discoloration of the skin near the puncture site is common. * You may shower only, no bathtub bathing for 5 days. Be careful to avoid slipping as your leg may feel stiff. * If a closure device was used on your femoral artery, please see the attached guide regarding care of the device and your leg. * Leave dressing on FOR 24 hours. CARE OF YOUR WRIST INCISION; * Bruising or purple discoloration of the skin near the puncture site is common. * You may shower. * DO NOT submerge wrist. * Leave dressing on FOR 24 hours. Sosa THOMPSON MD Jan 31, 2019 09:47
[2019-01-31 10:43] VITALS: BP 138/76
== END 2019-01-31 10:37 | disposition home or self-care (01) ==
LOC: CATH 07:16 → ICU 12:29 → CATH 01-31 10:37
PROVIDERS: ATTEND Internal Medicine Interventional Cardiology
DX: I48.4 Atypical atrial flutter (principal); I48.0 Paroxysmal atrial fibrillation; I25.10 Atherosclerotic heart disease of native coronary artery without angina pectoris; I10 Essential (primary) hypertension; E78.5 Hyperlipidemia, unspecified; I27.20 Pulmonary hypertension, unspecified; E74.39 Other disorders of intestinal carbohydrate absorption; E66.9 Obesity, unspecified; Z68.41 Body mass index [BMI] 40.0-44.9, adult; Z79.01 Long term (current) use of anticoagulants; Z79.899 Other long term (current) drug therapy
CPT/HCPCS: 36415; 80048; 80053; 85027; 85610; 85730; 87081; 93005; 93613; 93620; 93621; 93623; 93653

== ENCOUNTER 2019-02-28 08:17 | Outpatient (RCR) | payer MEDICARE ==
[~2019-02-28 08:17] MED LIST changes: +AMLO-66 PO; -AMLO1CAP9 PO; -BUME1TAB4 PO; +BUME1TAB8 PO
[2019-05-22] MEDS ORDERED: LISI10TA2 PO (07:44)
[2019-05-22] MEDS ORDERED: METO-370 PO (07:44)
[2019-05-22] MEDS ORDERED: POTA10TA10 PO (07:44)
[2019-05-22] MEDS ORDERED: FURO40TA4 PO (07:44)
[2019-05-22] MEDS ORDERED: LORA10TA7 PO (07:44)
== END 2019-05-29 | disposition home or self-care (01) ==
LOC: CARD 08:17
PROVIDERS: ATTEND Internal Medicine Interventional Cardiology
DX: I48.3 Typical atrial flutter (principal); I48.0 Paroxysmal atrial fibrillation

== ENCOUNTER → 2019-03-16 | Outpatient (CLI) | payer MEDICARE ==
--- NOTE | 2019-03-16 22:32 | Diagnostic Imaging Report ---
INDICATION: Routine screening. Comparison is made with prior mammograms from 03/11/2018 and 12/22/2016. 2-D and 3-D bilateral screening mammography was performed. The current study was also evaluated with a Computer Aided Detection (CAD) system. 3-D tomosynthesis was also performed and reviewed. FINDINGS: Both breasts remain heterogeneously dense, limiting the sensitivity of mammography. Rounded masses in retroareolar right breast appear stable. No malignant-appearing microcalcifications are seen. There are benign calcifications bilaterally. Axillae are unremarkable. IMPRESSION: No mammographic features suspicious for malignancy are identified. ACR BI-RADS Category 2: Benign findings. Result letter will be mailed to the patient. Note: At least 10% of breast cancer is not imaged by mammography. Dictated by: Dictated on workstation # [id number]
== END ==
LOC: RAD 10:39
PROVIDERS: ATTEND Internal Medicine
DX: Z12.31 Encounter for screening mammogram for malignant neoplasm of breast (principal)
CPT/HCPCS: 77067

== ENCOUNTER → 2019-04-06 | Day surgery (SDC) | payer MEDICARE ==
[~2019-04-06] VITALS: Ht 170.2 cm; Wt 124.7 kg
[~2019-04-06] MED LIST changes: +LIDOCAINE 1% INJ 20 ML 20 ML VIAL ONE
[2019-04-06 14:54] VITALS: BP 163/91
--- NOTE | 2019-04-06 16:58 | Implantation of Loop Monitor ---
Implant of Loop Monitior PROCEDURE PHYSICIAN: Divya Thompson MD IMPLANTATION OF LOOP MONITOR REPORT DATE OF PROCEDURE: 04/06/19 PERFORMING PHYSICIAN: Dr. Crescencio Thompson. INDICATION: Long-term surveillance of atrial fibrillation PREOP DIAGNOSIS: Long-term surveillance of atrial fibrillation POSTOP DIAGNOSIS: Atrial fibrillation, s/p implantation of loop recorder. PROCEDURE DETAILS: The patient is a 73 female with history of paroxysmal atrial fibrillation re quiring long-term surveillance. Therefore implantable loop recorder was discussed and agreed with the patient. Informed consent was taken. All risks and complications were discussed at length. The patient was draped and prepped in the usual sterile fashion. Local anesthesia was lidocaine, which was given in the substernal area close to the 4th intercostal space. Loop monitor was i mplanted according to the protocol. Steri-Strips were placed at the end of the procedure. There were no complications and the patient tolerated the procedure well. The device was interrogated with a voltage of 0.44 mV. ANESTHESIA: Local anesthesia with lidocaine. COMPLICATIONS: None CONTRAST/FLUOROSCOPY: None CONCLUSION: 1. Successful implantation of loop monitor for paroxysmal atrial fibrillation. 2. No complication and the patient tolerated the procedure well. Divya Thompson MD, [facility], CCDS Cardiac Electrophysiology Sosa THOMPSON MD Apr 06, 2019 16:58
== END ==
LOC: CATH 14:13
PROVIDERS: ATTEND Internal Medicine Interventional Cardiology
DX: I48.0 Paroxysmal atrial fibrillation (principal); J45.909 Unspecified asthma, uncomplicated; I25.10 Atherosclerotic heart disease of native coronary artery without angina pectoris; I27.20 Pulmonary hypertension, unspecified; E78.5 Hyperlipidemia, unspecified; I10 Essential (primary) hypertension; E66.9 Obesity, unspecified; I48.3 Typical atrial flutter; Z88.1 Allergy status to other antibiotic agents; Z79.52 Long term (current) use of systemic steroids; Z79.51 Long term (current) use of inhaled steroids; Z79.01 Long term (current) use of anticoagulants; Z68.41 Body mass index [BMI] 40.0-44.9, adult; Z82.49 Family history of ischemic heart disease and other diseases of the circulatory system; Z90.710 Acquired absence of both cervix and uterus; Z90.49 Acquired absence of other specified parts of digestive tract; Z96.649 Presence of unspecified artificial hip joint
CPT/HCPCS: 33285

== ENCOUNTER → 2019-04-17 | Outpatient (CLI) | payer MEDICARE ==
[~2019-04-17] MED LIST changes: -LIDOCAINE 1% INJ 20 ML 20 ML VIAL ONE; +RT-ALBUTEROL SULF 2.5 MG/3 ML PRE-MIX VIAL INH ONE
== END ==
LOC: RT 13:10
PROVIDERS: ATTEND Nurse Practitioner Family
DX: J45.909 Unspecified asthma, uncomplicated (principal); G47.36 Sleep related hypoventilation in conditions classified elsewhere; I48.0 Paroxysmal atrial fibrillation
CPT/HCPCS: 94060; 94726; 94729

== ENCOUNTER 2019-05-22 07:06 | Day surgery (SDC) | payer MEDICARE ==
[~2019-05-22] VITALS: Ht 170.2 cm; Wt 133.2 kg
[2019-05-22] VITALS (19 sets, daily range): BP systolic 147–179; BP diastolic 69–93
[~2019-05-22 07:06] MED LIST changes: -RT-ALBUTEROL SULF 2.5 MG/3 ML PRE-MIX VIAL INH ONE
[2019-05-22] MEDS ORDERED: ISOPROTERENOL 0.2 MG/D5W 50 ML IV ONE (07:15)
[2019-05-22] MEDS ORDERED: HEParin (CATH LAB) 4,000 ML IV ONE (07:15)
[2019-05-22] MEDS ORDERED: NS IV 1000 ML 1,000 ML ONE ×3 (07:15→09:53)
[2019-05-22] MEDS ORDERED: LIDOCAINE 1% INJ 20 ML 20 ML VIAL ONE (07:15)
[2019-05-22] MEDS ORDERED: HEParin 1000 UNIT/ML (10ML VIAL) FOR BOLUS ONE ×3 (07:21→11:20)
[2019-05-22] MEDS ORDERED: HEParin DRIP 25000 UNIT/500ML 500 ML IV ONE (07:21)
[2019-05-22 07:41] LABS: HEMOGLOBIN 14.2 G/DL (11.5-16.0); MEAN PLATELET VOLUME 9.3 FL (7.4-10.4); RED CELL DISTRIBUTION WIDTH 14.4 % (10.0-14.5); WHITE BLOOD COUNT 7.4 10^3/uL (4.3-11.0)
[2019-05-22] MEDS ORDERED: FURO40TA4 PO (07:44)
[2019-05-22] MEDS ORDERED: POTA10TA10 PO (07:44)
[2019-05-22] MEDS ORDERED: LORA10TA7 PO (07:44)
[2019-05-22] MEDS ORDERED: LISI10TA2 PO (07:44)
[2019-05-22] MEDS ORDERED: METO-370 PO (07:44)
[2019-05-22] MEDS ORDERED: MIDAZOLAM 2 MG/2 ML (VERSED) VIAL ONE (07:58)
[2019-05-22] MEDS ORDERED: fentaNYL INJECTION 100 MCG/2 ML AMP ONE (07:59)
[2019-05-22] MEDS ORDERED: LIDOCAINE BOLUS 100 MG/5 ML (IMS) SYR ONE (07:59)
[2019-05-22] MEDS ORDERED: proPOfol 200 MG/20 ML (DIPRIVAN) VIAL IV ONE (07:59)
[2019-05-22] MEDS ORDERED: ROCURONIUM 10 MG/ML 5 ML SYRINGE IV ONE ×2 (07:59→09:50)
[2019-05-22 08:02] LABS: ALANINE AMINOTRANSFERASE 16 U/L (0-55); ALBUMIN 4.1 GM/DL (3.2-4.5); ALKALINE PHOSPHATASE 94 U/L (40-136); BILIRUBIN,TOTAL 0.9 MG/DL (0.1-1.0); BUN/CREATININE RATIO 18; CALCIUM 9.4 MG/DL (8.5-10.1); CARBON DIOXIDE 25 MMOL/L (21-32); CHLORIDE 105 MMOL/L (98-107); CREATININE SERUM 0.87 MG/DL (0.60-1.30); GFR ESTIMATED > 60; GLUCOSE 114 MG/DL (70-105); POTASSIUM 3.9 MMOL/L (3.6-5.0); SODIUM 143 MMOL/L (135-145); TOTAL PROTEIN 6.9 GM/DL (6.4-8.2)
--- NOTE | 2019-05-22 08:36 | NUR ---
SPOKE WITH PT WELL CALLING [facility] TO COMPLETE THE MED REC. THE PT WAS ABLE TO TELL HER ALL HER MEDICATIONS AND HOW SHE TAKES THEM. THE FOLLOWING ARE FILL DATES FROM [facility]: 01-03-2019 METOPROLOL #90/90DS 01-05-2019 LISINOPRIL #30/30DS 02-24-2019 ADVAIR INH #1/30DS 02-24-2019 DOXAZOSIN #90/90 04-04-2019 ESTRACE #90/90DS 04-04-2019 FLECAINIDE #180/90DS 04-04-2019 SERTRALINE #135/90DS 04-04-2019 TRAZODONE #90/90DS 04-29-2019 ATORVASTATIN #90/90DS 04-29-2019 MONTELUKAST #90/90DS 04-29-2019 POTASSIUM #60/30DS 05-09-2019 ELIQUIS #60/30DS 05-09-2019 FUROSEMIDE #30/30DS 05-09-2019 DILTAZEM #90/90DS OTC MEDS: LORATADINE FLONASE
[2019-05-22] MEDS ORDERED: SEVOFLURANE (ULTANE) 15 ML INHAL SOLN ONE ×2 (12:35→13:40)
[2019-05-22] MEDS ORDERED: HEParin (CATH LAB) 1,000 ML IV ONE (12:42)
[2019-05-22] MEDS ORDERED: PROTAMINE 50 MG/5 ML VIAL ONE (13:10)
[2019-05-22] MEDS ORDERED: PHENYLEPHRINE 100 MCG/ML 10 ML (ANESTHESIA) SYR ONE (13:12)
--- NOTE | 2019-05-22 13:19 | Electrophysiology Procedure ---
EP Procedure DATE OF SERVICE:05/22/19 REFERRING ADMINISTRATIVE ASSISTANT DATA ENTRY: Елена Ang MD, FACP, FAC, [facility] CARDIAC CORRECTIONAL MAINTENANCE TECHNICIAN: Divya Thompson MD, [facility] INDICATION: symptomatic paroxysmal atrial fibrillation refractory to antiarrhyth truong therapy. PREOPERATIVE DIAGNOSIS: symptomatic paroxysmal atrial fibrillation refractory to antiarrhythmic therapy. POSTOPERATIVE DIAGNOSES: successful paroxysmal atrial fibrillation ablation. HISTORY: 74-year-old lady who has been referred by Dr. Ang. She has history of typical atrial flutter, status post successful ablation. She continued to have symptomatic paroxysmal atrial fibrillation refractory to flecainide. This is a class I indication for paroxysmal atrial fibrillation ablation. PROCEDURE PERFORMED: 1. Comprehensive EP study with induction. 2. Fluoroscopy. 3. Left atrial pacing and recording. 4. Left ventricular pacing and recording. 5. Drug infusion. 6. Pulmonary vein isolation. 7. Comprehensive 3D mapping with the carto system. 8. Intracardiac Echocardiogram. COMPLICATION: None. ESTIMATED BLOOD LOSS: 10 mL. CONTRAST USED: None. FLUOROSCOPY TIME: 4.1 minutes. FLUOROSCOPY DOSE: 79 mgy. SPECIMENS: None. ANESTHESIA: Done by our anesthesia colleagues. ANTICOAGULATION: Uninterrupted oral anticoagulation and IV heparin. PROCEDURE IN DETAIL: After informed consent was taken, the patient was brought to the EP lab. Anesthesia was provided by our anesthesia colleagues. The patient was draped and prepped in the usual sterile fashion. The patient presented to the EP lab in sinus rhythm. Access was gained in the right femoral vein with a 8 [place]an and a 6 Chilean sheath. Left access in the left femoral vein with a 10 [place]an and 6 [place]an sheath respectively. His Catheter and ICE catheter were advanced from the left access sites. CS multipolar catheter was advanced placed in the CS from the right access site. A guidewire was advanced into the SVC. Long sheath was advanced on top of the guidewire into the SVC. The wire was taken out. We then went in with the transseptal needle. Under fluoroscopic and intracardiac echocardiogram guidance, the sheath and transseptal needle were pulled into the fossa ovalis. Transseptal access was performed under intracardiac echocardiogram guidance. This was confirmed with left atrial pressure measurements. IV heparin was given and ACT was kept over 350 seconds. BiosVestor Soto Pentaray catheter was advanced for left atrial mapping. We also used the intracardiac echocardiogram to create an ultrasound shell of the left atrium and identified all vital landmarks including the left atrial appendage, left pulmonary veins, right pulmonary veins, mitral valve, fossa ovalis, aortic cusps. With this multipolar mapping catheter left atrial voltage and electro anatomical map was created. The multipolar mapping catheter was then taken out. We then advanced a guidewire which was placed in the left superior pulmonary vein and the sheath and introducer were taken out. We then advanced a large curve steerable sheath into the left atrium. The guidewire was taken out and a and and irrigated ablation catheter was advanced into the left atrium. Pulmonary vein isolation was performed. Bidirectional block in both left and right sided pulmonary veins was confirmed. This was done with high output pacing in each pulmonary vein. High-dose Isuprel was started at 20mg/minute. Rapid atrial pacing did not induce atrial fibrillation. After 30 minutes of ablation we rechecked the veins and reconfirmed bidirectional block. Comprehensive EP study was done. Left atrial pacing did not demonstrate any evidence of left-sided bypass tract. Left ventricular pacing and recording was also done, which did not demonstrate any VA conduction at pacing at cycle length 600 ms. atrial fibrillation was not induced. A 3D electroanatomic mapping was donewith the carto system. Throughout the procedure, intracardiac echocardiogram did not demonstrate any pericardial effusion.The patienttolerated the procedurewell and did not have any complication. The patientleft the lab in sinus rhythm. Total ablation time was 59.32 minutes. MEASUREMENTS/EP STUDY: A interval 1091 ms, AH interval and 6 ms, HV interval 51 ms, ND interval 161 ms, QRS duration 73 ms, QT interval 365 ms, R-R interval 1097 ms, Left ventricular pacing and recording did not demonstrate a left-sided pathway. Retrograde Wenckebach when pacing at 730 ms. Left atrial pacing and recording did not demonstrate a left lateral bypass tract. AV Wenckebach at cycle length 430 ms. Atrial ERP at 700/250 ms. PLAN: The patient will be observed overnight and will be discharged home tomorrow with precise followup instructions. she will continue oral anticoagulation and flecainide and follow-up in the office in 4 weeks. Divya Thompson MD, [facility] Cardiac Electrophysiology Sosa THOMPSON MD May 22, 2019 1:19 pm POS
--- NOTE | 2019-05-22 13:24 | History & Physicial-Cardiolgy ---
HPI-Cardiology Cardiology Consultation: Date of Consultation 05/22/19 Date of Admission Attending Physician Sosa Thompson MD Admitting Physician Breanna Broderick DO Consulting Physician Sosa THOMPSON MD HPI: Time Seen by a Provider: 08:30 Chief Complaint: Atrial fibrillation 74-year-old lady who was referred by Dr. Ang for typical atrial flutter, atrial fibrillation. Symptomatic atrial fibrillation refractory to antiarrhythmic therapy. Atrial fibrillation ablation is recommended. Review of Systems-Cardiology Review of Systems Constitutional: As described under HPI; No As described under HPI, No no symptoms reported, No chills, No fever, No lightheadedness Eyes: No As described under HPI, No no symptoms reported, No blindness, No blurred vision, No contact lenses, No drainage, No decreased acuity, No foreign body sensation, No pain, No vision change Ears/Nose/Throat: No As described under HPI, No no symptoms reported, No chronic hearing loss, No ear discharge, No ear pain, No nasal drainage, No ulcerations Respiratory: No no symptoms reported; As described under HPI; No As described under HPI, No cough, No orthopnea, No shortness of breath, No SOB with excertion Cardiovascular: No no symptoms reported; As described under HPI; No As described under HPI, No chest pain, No edema, No irregular heart rate, No lightheadedness, No palpitations Gastrointestinal: No no symptoms reported, No As described under HPI, No abdomen distended, No abdominal pain, No blood streaked bowels, No constipation, No diarrhea, No nausea, No vomiting, No stool coloration changes Genitourinary: No As described under HPI, No burning, No dysuria, No discharge, No frequency, No flank pain, No hematuria, No urgency : Yes : No Skin: No rash, No skin related problems, No ulcerations Psychiatric/Neurological: No anxiety, No depression, No seizure, No focal weakness, No syncope Hematologic: No bleeding abnormalities [id number] Hx Patient Social History Alcohol Use: Rarely Uses Recreational Drug Use: No Smoking Status: Never a Smoker Type Used: Cigarettes 2nd Hand Smoke Exposure: No Recent Foreign Travel: No Recent Infectious Disease Expo: No Immunizations Up To Date Tetanus Booster (TDap): Less than 5yrs Date of Pneumonia Vaccine: May 04, 2017 Date of Influenza Vaccine: Apr 25, 2019 Past Medical History PMH As described under Assessment. Family Medical History Family Medical History: She reports her mother and father both had CAD and HTN. Family History: Arthritis 19 MOTHER Cataracts 19 FATHER 19 MOTHER Colon cancer 19 FATHER Deafness or hearing loss 19 FATHER Dementia 19 FATHER FH: macular degeneration 19 MOTHER FH: prostate cancer 19 FATHER FH: skin cancer 19 FATHER Gout 19 MOTHER Hypertension 19 FATHER 19 MOTHER Myocardial infarction 19 FATHER 19 MOTHER Allergies and Home Medications Allergies Coded Allergies: sulfamethoxazole (Verified Allergy, Intermediate, rash, SOB, 10/23/18) trimethoprim (Verified Allergy, Intermediate, rash, SOB, 10/23/18) cephalexin (Verified Allergy, Unknown, 10/02/18) Home Medications Albuterol Sulfate 1 Puff Puff, 2 PUFF IH Q4H PRN for SHORTNESS OF BREATH, (Reported) Albuterol Sulfate 2.5 Mg/3 Ml Vial.neb, 2.5 MG NEB Q4H PRN for SHORTNESS OF BREATH, (Reported) Apixaban 5 Mg Tablet, 5 MG PO BID, (Reported) Atorvastatin Calcium 20 Mg Tablet, 20 MG PO HS, (Reported) Cholecalciferol 5,000 Unit Capsule, 5,000 UNIT PO DAILY, (Reported) Diltiazem HCl 240 Mg Capsule.er, 240 MG PO DAILY, (Reported) Doxazosin Mesylate 2 Mg Tablet, 2 MG PO HS, (Reported) Estradiol 0.5 Mg Tablet, 0.5 MG PO DAILY, (Reported) Flecainide Acetate 100 Mg Tablet, 100 MG PO BID, (Reported) Fluticasone Propionate 16 Gm [place].susp, 2 SPRAYS NS HS PRN for ALLERGIES, (Reported) Fluticasone/Salmeterol 1 Each Blst.w.dev, 1 PUFF INH BID PRN for SHORTNESS OF BREATH, (Reported) Furosemide 40 Mg Tablet, 40 MG PO DAILY, (Reported) Lisinopril 10 Mg Tablet, 10 MG PO DAILY, (Reported) LAST FILLED 01-05-2019 #30 Loratadine 10 Mg Tablet, 10 MG PO DAILY, (Reported) Metoprolol Succinate 50 Mg Tab.er.24h, 50 MG PO DAILY, (Reported) LAST FILLED 01-03-2019 #90 Montelukast Sodium 10 Mg Tablet, 10 MG PO HS, (Reported) Potassium Chloride 10 Meq Tablet.er, 20 MEQ PO DAILY, (Reported) Sertraline HCl 100 Mg Tablet, 150 MG PO DAILY, (Reported) TAKES 1 & 1/2 (100MG) TABLET Trazodone HCl 50 Mg Tablet, 50 MG PO HS, (Reported) Patient Home Medication List Home Medication List Reviewed: Yes Physical Exam-Cardiology Physical Exam Vital Signs/I&O 05/22/19 07:23 Temp 38.1 Pulse 60 Resp 20 B/P (MAP) 147/79 (101) Pulse Ox 93 O2 Delivery Room Air Capillary Refill : Constitutional: appears stated age; No apparent distress; well-developed, well- nourished HEENT: PERRL; No discharge; hearing is well preserved, oral hygience is good; No ulceration, No xanthelasmas are seen Neck: No carotid bruit; carotid pulses are 2 + bilaterally Respiratory: chest is bilaterally symmetric, lungs clear to auscultation Cardiovascular: regular rate-rhythm, S1 and S2 Gastrointestinal: soft, audible bowel sounds; No spleenomegaly Rectal: deferred Extremities: normal range of motion, non-tender, normal inspection; No clubbing, No cyanosis; no lower extremity edema bilateral; No significant edema Neurologic/Psychiatric: no motor/sensory deficits, alert, normal mood/affect, oriented x 3, power is 5/5 both on sides Skin: normal color, warm/dry; No rash, No ulcerations Data Review Labs Laboratory Tests 05/22/19 07:30: White Blood Count 7.4, Red Blood Count 4.96, Hemoglobin 14.2, Hematocrit 42, Mean Corpuscular Volume 85, Mean Corpuscular Hemoglobin 29, Mean Corpuscular Hemoglobin Concent 34, Red Cell Distribution Width 14.4, Platelet Count 248, Mean Platelet Volume 9.3, Prothrombin Time 14.0, INR Comment 1.0, Activated Partial Thromboplast Time 30, Sodium Level 143, Potassium Level 3.9, Chloride Level 105, Carbon Dioxide Level 25, Anion Gap 13, Blood Urea Nitrogen 16, Creatinine 0.87, Estimat Glomerular Filtration Rate > 60, BUN/Creatinine Ratio 18, Glucose Level 114H, Calcium Level 9.4, Corrected Calcium 9.3, Total Bilirubin 0.9, Aspartate Amino Transf (AST/SGOT) 15, Alanine Aminotransferase (ALT/SGPT) 16, Alkaline Phosphatase 94, Total Protein 6.9, Albumin 4.1 ECG Impression ECG Initial ECG Rhythm: Normal Sinus A/P-Cardiology Assessment/Admission Diagnosis Symptomatic proximal atrial fibrillation refractory to antiarrhythmic therapy Admission Status: Observation Plan Atrial fibrillation ablation is recommended. Sosa THOMPSON MD May 22, 2019 1:24 pm POS
[2019-05-22] MEDS ORDERED: PATIENT MAY USE OWN MEDS, ALL PO SCH (13:30)
[2019-05-22] MEDS ORDERED: GLYCOPYRROLATE 0.2 MG/ML (ROBINUL) 2 ML VIAL ONE (13:33)
[2019-05-22] MEDS ORDERED: NEOSTIGMINE 3 MG/3 ML VIAL ONE (13:33)
[2019-05-22] MEDS ORDERED: morphine INJ 10 MG/ML 1ML (SYR OR VIAL) IVP ONE (14:30)
[2019-05-22] MEDS ORDERED: ONDANSETRON 4 MG/2 ML (SDV) Z0FRAN IVP PRN (14:30)
[2019-05-22] MEDS ORDERED: MEPERIDINE (DEMEROL) INJ 50 MG/ML IVP ONE (14:30)
[2019-05-22] MEDS: NS IV 1000 ML 1,000 ML IV SCH ×2 (16:18→23:19)
[2019-05-22] MEDS: APIXABAN 5 MG (ELIQUIS) TABLET PO SCH (20:54)
[2019-05-22] MEDS ORDERED: ACETAMINOPHEN 500 MG TAB (TYLENOL) ONE (22:13)
[2019-05-22] MEDS: ACETAMINOPHEN 500 MG TAB (TYLENOL) PO PRN (22:17)
[2019-05-23] VITALS (7 sets, daily range): BP systolic 134–168; BP diastolic 61–99
[2019-05-23 03:21] LABS: HEMOGLOBIN 11.4 G/DL (11.5-16.0); MEAN PLATELET VOLUME 9.3 FL (7.4-10.4); RED CELL DISTRIBUTION WIDTH 13.9 % (10.0-14.5); WHITE BLOOD COUNT 9.9 10^3/uL (4.3-11.0)
[2019-05-23 03:44] LABS: BUN/CREATININE RATIO 16; CALCIUM 7.7 MG/DL (8.5-10.1); CARBON DIOXIDE 23 MMOL/L (21-32); CHLORIDE 109 MMOL/L (98-107); CREATININE SERUM 0.69 MG/DL (0.60-1.30); GFR ESTIMATED > 60; GLUCOSE 111 MG/DL (70-105); POTASSIUM 3.6 MMOL/L (3.6-5.0); SODIUM 141 MMOL/L (135-145)
[2019-05-23] MEDS: ACETAMINOPHEN 500 MG TAB (TYLENOL) PO PRN (06:34)
--- NOTE | 2019-05-23 07:23 | Anesthesia-General Post-Op ---
General Patient Condition Mental Status/LOC: Same as Preop Cardiovascular: Satisfactory Nausea/Vomiting: Absent Respiratory: Satisfactory Pain: Controlled Complications: Absent Post Op Complications Complications None Follow Up Care/Instructions Patient Instructions None needed. Anesthesia/Patient Condition Patient Condition Patient is doing well, no complaints, stable vital signs, no apparent adverse anesthesia problems. No complications reported per nursing. RAMAKRISHNA SERNA CRNA May 23, 2019 07:23 POS
[2019-05-23] MEDS: APIXABAN 5 MG (ELIQUIS) TABLET PO SCH (08:11)
--- NOTE | 2019-05-23 08:21 | Anesthesia-General Post-Op ---
General Patient Condition Mental Status/LOC: Same as Preop Cardiovascular: Satisfactory Nausea/Vomiting: Absent Respiratory: Satisfactory Pain: Controlled Complications: Absent Post Op Complications Complications None Follow Up Care/Instructions Patient Instructions None needed. Anesthesia/Patient Condition Patient Condition Patient is doing well, no complaints, stable vital signs, no apparent adverse anesthesia problems. No complications reported per nursing. KIZZY LOJA CRNA May 23, 2019 08:21 POS
[2019-05-23] MEDS: NS IV 1000 ML 1,000 ML IV SCH (10:02)
--- NOTE | 2019-05-23 13:45 | NUR ---
Pt given discharge instructions at this time. Encouraged pt follow-up appt with Dr. Thompson. IVs removed prior to discharge. Pt sister to take pt home at this time. Personal belongings with pt.
--- NOTE | 2019-05-23 15:22 | Cardiology Discharge Summary ---
Diagnosis/Chief Complaint Date of Admission 05/22/2019 Date of Discharge 05/23/2019 Admission Diagnosis Paroxysmal atrial fibrillation refractory to antiarrhythmic therapy. Final/Discharge Diagnosis Successful pulmonary vein isolation. Chief Complaint/HPI Chief Complaint/HPI 74-year-old lady who was referred by Dr. Ang for typical atrial flutter, atrial fibrillation. Symptomatic atrial fibrillation refractory to antiarrhythmic therapy. Atrial fibrillation ablation is recommended. Discharge Summary Procedures Successful pulmonary vein isolation. Discharge Physical Examination Normal cardiovascular examination. Hospital Course Was the Problem List Reviewed?: Yes Unremarkable. Discussion & Recommendations Discussion Discharge took over 30 minutes to complete. The procedure were discussed at length with the patient. All the medications were discussed. All restrictions were also discussed. Follow up appt.: Dr. Thompson in 3-4 weeks. Dicharge Diet: Cardiac Diet Activity as Tolerated: Yes Home Medications Reviewed patient Home Medication Reconciliation performed by pharmacy medication reconciliations switch technician and/or nursing. Patients Allergies have been reviewed. Discharge Home Medications: Reviewed and agree with Discharge Medication list on patient's Discharge Instruction sheet Condition at discharge Stable. Instructions to patient/family Discussed with the patient. Clinical Quality Measures DVT/VTE Risk/Contraindication: Risk Factor Score Per Nursin RFS Level Per Nursing on Admit: 4+=Very High Sosa THOMPSON MD May 23, 2019 15:22 POS
== END 2019-05-23 13:45 | disposition home or self-care (01) ==
LOC: CATH 07:06 → ICU 15:49 → CATH 05-23 13:45
PROVIDERS: ATTEND Internal Medicine Interventional Cardiology
DX: I48.0 Paroxysmal atrial fibrillation (principal); Z88.1 Allergy status to other antibiotic agents; Z88.2 Allergy status to sulfonamides; Z79.899 Other long term (current) drug therapy; Z82.49 Family history of ischemic heart disease and other diseases of the circulatory system; Z82.61 Family history of arthritis; Z80.0 Family history of malignant neoplasm of digestive organs
CPT/HCPCS: 36415; 80048; 80053; 82962; 85027; 85610; 85730; 87081; 93005; 93613; 93622; 93623; 93656; 93662

== ENCOUNTER → 2019-08-08 | Outpatient (RCR) | payer MEDICARE ==
[2019-05-03 09:04] LABS: BUN/CREATININE RATIO 18; CREATININE SERUM 0.77 MG/DL (0.60-1.30); GFR ESTIMATED > 60
--- NOTE | 2019-05-03 12:38 | Diagnostic Imaging Report ---
PROCEDURE: CT angiography of the chest with contrast. TECHNIQUE: Multiple contiguous axial images were obtained through the chest after uneventful bolus administration of intravenous contrast. 3D reconstructed CTA MIP acquisitions were also performed. Auto Exposure Controls were utilized during the CT exam to meet ALARA standards for radiation dose reduction. INDICATION: Hypoxemia, dyspnea and abnormal pulmonary function testing. COMPARISON: Correlation is made with prior CT angiogram of the chest from 12/15/2018. FINDINGS: No axillary lymphadenopathy is detected. No mediastinal or hilar lymphadenopathy is detected. The heart remains enlarged. The thoracic aorta is normal caliber. No dissection is seen. There is suboptimal opacification of the pulmonary arterial system, limiting evaluation for pulmonary emboli. No definite central filling defects are seen. There is no pericardial fluid. There appears to be trace right pleural fluid or pleural thickening. No pulmonary mass or parenchymal consolidation is seen. There is minimal dependent atelectasis in the right lower lobe. Upper abdomen is unremarkable. IMPRESSION: Trace right-sided pleural effusion or pleural thickening. The study is otherwise unremarkable apart from cardiomegaly. No acute features detected. Dictated by: Dictated on workstation # [id number]
[~2019-08-08] MED LIST changes: -DILT240C PO; +DILT240C91 PO; +FURO40TA4 PO; +HOLD METFORMIN - RECEIVED CONTRAST 20 ML VIAL IV SCH; +IOHEXOL 350 MG/ML 100 ML (OMNIPAQUE 350) VIAL IV ONE; -METO-370 PO; +METO50TA7 PO; +NS 100 ML (IVPB) BAG IV ONE; +POTA10TA10 PO; -TRAZ-222 PO; +TRZ50T PO
== END | disposition home or self-care (01) ==
LOC: PULM 05-03 07:55
PROVIDERS: ATTEND Nurse Practitioner Family
DX: J30.9 Allergic rhinitis, unspecified (principal); I48.0 Paroxysmal atrial fibrillation; J98.4 Other disorders of lung
CPT/HCPCS: 36415; 71275; 82565; 84520; 99211

== ENCOUNTER 2019-10-05 10:45 | Outpatient (RCR) | payer MEDICARE ==
[2019-08-29 10:40] VITALS: BP 130/85
[2019-08-29 11:55] VITALS: BP 130/80
[2019-09-05 10:30] VITALS: BP 140/60
[2019-09-05 11:50] VITALS: BP 125/82
[2019-09-07 10:40] VITALS: BP 168/60
[2019-09-07 11:55] VITALS: BP 140/60
[2019-09-21 10:40] VITALS: BP 115/50
[2019-09-26 10:40] VITALS: BP 140/60
[2019-09-26 12:00] VITALS: BP 124/62
[2019-09-28 10:35] VITALS: BP 130/70
[2019-09-28 12:05] VITALS: BP 112/73
[2019-10-05 10:42] VITALS: BP 120/68
[~2019-10-05 10:45] MED LIST changes: -HOLD METFORMIN - RECEIVED CONTRAST 20 ML VIAL IV SCH; -IOHEXOL 350 MG/ML 100 ML (OMNIPAQUE 350) VIAL IV ONE; -MONT10TA24 PO; +MONT10TA26 PO; -NS 100 ML (IVPB) BAG IV ONE
[2019-10-12 10:40] VITALS: BP 130/68
[2019-10-12 11:20] VITALS: BP 130/60
== END 2019-11-13 | disposition home or self-care (01) ==
LOC: PULM 10:45
PROVIDERS: ATTEND Nurse Practitioner Family
DX: J30.9 Allergic rhinitis, unspecified (principal); J98.4 Other disorders of lung; I48.0 Paroxysmal atrial fibrillation; R94.2 Abnormal results of pulmonary function studies; R09.02 Hypoxemia

== ENCOUNTER → 2019-12-13 | Outpatient (CLI) | payer MEDICARE | LOC: PULM 10:07 | PROVIDERS: ATTEND Nurse Practitioner Family | DX: R94.2 Abnormal results of pulmonary function studies (principal); R09.02 Hypoxemia; G47.36 Sleep related hypoventilation in conditions classified elsewhere; R05 Cough; R06.00 Dyspnea, unspecified ==

== ENCOUNTER → 2020-04-19 | Outpatient (CLI) | payer MEDICARE ==
[~2020-04-19] MED LIST changes: +ASPI-1238 PO; -ASPI-983 PO
--- NOTE | 2020-04-22 14:23 | Diagnostic Imaging Report ---
Digital mammogram. Bilateral screening This study was compared to the prior exams of 03/16/2019, 03/11/2018 and 12/22/2016. At this time there are no current complaints. Findings: The fibroglandular tissue in both breasts is heterogeneously dense. This does limit the sensitivity of this exam. As on the prior study there are benign-appearing rounded asymmetries in the retroareolar region of the right breast. There are also microcalcifications scattered throughout each breast. These microcalcifications seem stable. There is no primary or secondary sign of malignancy noted. Impression: There is no evidence of malignancy. ACR BI-RADS Category 1: Negative. Result letter will be mailed to the patient. Note: At least 10% of breast cancer is not imaged by mammography. Dictated by: Dictated on workstation # [id number]
== END ==
LOC: RAD 11:12
PROVIDERS: ATTEND Internal Medicine
DX: Z12.31 Encounter for screening mammogram for malignant neoplasm of breast (principal)
CPT/HCPCS: 77063; 77067

== ENCOUNTER 2020-06-16 11:10 | Inpatient (IN) | payer MEDICARE ==
[~2020-06-16] VITALS: Ht 170.2 cm; Wt 130.0 kg
[2020-06-16] VITALS (7 sets, daily range): BP systolic 148–187; BP diastolic 69–96
[2020-06-16] MEDS ORDERED: LACTATED RINGERS 1,000 ML IV SCH (11:30)
[2020-06-16 11:31] LABS: ABG BASE EXCESS 1.6 MMOL/L (-2.5-2.5); ABG OXYGEN SATURATION 97 % (94-100); ABG PCO2 41 MMHG (35-45); ABG PH 7.41 (7.37-7.43); ABG PO2 86 MMHG (79-93); ABG TCO2 27.3 MMOL/L (21.0-31.0); ALLENS TEST YES-POS; INSPIRED O2 ROOM AIR; PATIENT TEMP 96.8; VENTILATOR NO
--- NOTE | 2020-06-16 11:34 | ED Respiratory ---
General Stated Complaint: CHEST PRESSURE/COUGH Source: patient Exam Limitations: no limitations History of Present Illness Date Seen by Provider: Jun 16, 2020 Time Seen by Provider: 11:18 Initial Comments Patient presents ER by EMS from home with chief complaint she's been having a cough nonproductive for greater than a week. She has not been tested for COVID. She follows with Dr. Darnell and did call and talk to her but since her symptoms are mildly did not do any testing or workup. She does have a history of asthma and feels wheezy and tight. She has not been on steroids for over a year. She's had no fevers. Today she started having some pressure in the substernal region of her chest that did not radiate. She was given 324 aspirin by EMS on route and her pressure is gone by the time she's here in the ER. She has no history of coronary disease. She does have a history of atrial fibrillation status post her second ablation by Dr. Thompson. She's known to Dr. Ang for primary cardiology. No nausea vomiting diarrhea. She is still on her Eliquis. Allergies and Home Medications Allergies Coded Allergies: sulfamethoxazole (Verified Allergy, Intermediate, rash, SOB, 10/23/18) trimethoprim (Verified Allergy, Intermediate, rash, SOB, 10/23/18) cephalexin (Verified Allergy, Unknown, 10/02/18) Home Medications Albuterol Sulfate 1 Puff Puff, 2 PUFF IH Q4H PRN for SHORTNESS OF BREATH, (Reported) Albuterol Sulfate 2.5 Mg/3 Ml Vial.neb, 2.5 MG NEB Q4H PRN for SHORTNESS OF BREATH, (Reported) Apixaban 5 Mg Tablet, 5 MG PO BID, (Reported) Atorvastatin Calcium 20 Mg Tablet, 20 MG PO HS, (Reported) Cholecalciferol 5,000 Unit Capsule, 5,000 UNIT PO DAILY, (Reported) Diltiazem HCl 240 Mg Capsule.er, 240 MG PO DAILY, (Reported) Doxazosin Mesylate 2 Mg Tablet, 2 MG PO HS, (Reported) Estradiol 0.5 Mg Tablet, 0.5 MG PO DAILY, (Reported) Flecainide Acetate 100 Mg Tablet, 100 MG PO BID, (Reported) Fluticasone Propionate 16 Gm [place].susp, 2 SPRAYS NS HS PRN for ALLERGIES, (Reported) Fluticasone/Salmeterol 1 Each Blst.w.dev, 1 PUFF INH BID PRN for SHORTNESS OF BREATH, (Reported) Furosemide 40 Mg Tablet, 40 MG PO DAILY, (Reported) Lisinopril 10 Mg Tablet, 10 MG PO DAILY, (Reported) LAST FILLED 01-05-2019 #30 Loratadine 10 Mg Tablet, 10 MG PO DAILY, (Reported) Metoprolol Succinate 50 Mg Tab.er.24h, 50 MG PO DAILY, (Reported) LAST FILLED 01-03-2019 #90 Montelukast Sodium 10 Mg Tablet, 10 MG PO HS, (Reported) Potassium Chloride 10 Meq Tablet.er, 20 MEQ PO DAILY, (Reported) Sertraline HCl 100 Mg Tablet, 150 MG PO DAILY, (Reported) TAKES 1 & 1/2 (100MG) TABLET Trazodone HCl 50 Mg Tablet, 50 MG PO HS, (Reported) Patient Home Medication List Home Medication List Reviewed: Yes Review of Systems Review of Systems Constitutional: No chills, No fever; malaise EENTM: No ear discharge, No hearing loss Respiratory: cough; No phlegm; short of breath, wheezing Cardiovascular: chest pain; No palpitations Gastrointestinal: No abdominal pain, No constipation, No diarrhea, No nausea, No vomiting Genitourinary: No discharge, No dysuria Musculoskeletal: No back pain, No joint pain All Other Systems Reviewed Negative Unless Noted: Yes Past Llmqiut-Rolkcw-Pqhvzg Hx Patient Social History Alcohol Use: Occasionally Uses Alcohol Beverage of Choice: Wine Recreational Drug Use: No Smoking Status: Current Everyday Smoker Type Used: Cigarettes 2nd Hand Smoke Exposure: No Recent Hopitalizations: Yes (ER VISIT FEW DAYS AGO DRUG REACTION AND ASTHMA ATTACK) Immunizations Up To Date Tetanus Booster (TDap): Less than 5yrs Date of Pneumonia Vaccine: May 04, 2017 Date of Influenza Vaccine: Apr 25, 2019 Seasonal Allergies Seasonal Allergies: No Past Medical History Surgeries: Yes (HIATAL HERNIA, L TKR, R HIP REPLACEMENT, BLADDER x8, BILAT FOOT SX) Bladder Surgery, Gallbladder, Hysterectomy, Joint Replacement, Orthopedic Respiratory: Yes Asthma, Sleep Apnea Currently Using CPAP: Yes (WITH O2) Currently Using BIPAP: No Cardiac: Yes Atrial Fibrillation, High Cholesterol, Hypertension Neurological: No 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 Sexually Transmitted Disease: No Genitourinary: Yes (BOTOX FOR URINARY INCONT Q 6 MONTHS) Bladder Infection Gastrointestinal: Yes Hiatal Hernia Musculoskeletal: Yes Arthritis Endocrine: No Diabetes, Non-Insulin dep Cataract Loss of Vision: Bilateral Hearing Impairment: Denies Cancer: No Psychosocial: Yes Depression Integumentary: No Blood Disorders: No Adverse Reaction/Blood Tranf: No Family Medical History Arthritis 19 MOTHER Cataracts 19 FATHER 19 MOTHER Colon cancer 19 FATHER Deafness or hearing loss 19 FATHER Dementia 19 FATHER FH: macular degeneration 19 MOTHER FH: prostate cancer 19 FATHER FH: skin cancer 19 FATHER Gout 19 MOTHER Hypertension 19 FATHER 19 MOTHER Myocardial infarction 19 FATHER 19 MOTHER Physical Exam Vital Signs - First Documented 06/16/20 11:11 Temp 36.0 Pulse 76 Resp 36 B/P (MAP) 177/96 (123) Pulse Ox 95 Capillary Refill : Height: 5'7.00" Weight: 286lbs. 0.4oz. 124.522711cj; 43.70 BMI Method:Stated General Appearance: WD/WN, moderate distress Eyes: Bilateral Eye Normal Inspection, Bilateral Eye PERRL, Bilateral Eye EOMI HEENT: PERRL/EOMI, normal ENT inspection, pharynx normal Neck: full range of motion, normal inspection Respiratory: no accessory muscle use, respiratory distress, decreased breath sounds, wheezing Cardiovascular: normal peripheral pulses, regular rate, rhythm Gastrointestinal: normal bowel sounds, non tender, soft Extremities: normal range of motion, normal capillary refill Neurologic/Psychiatric: alert, normal mood/affect, oriented x 3 Skin: normal color, warm/dry Progress/Results/Core Measures Suspected Sepsis SIRS Temperature: Pulse: Respiratory Rate: Laboratory Tests 06/16/20 11:30: White Blood Count 6.2 Blood Pressure / Mean: Laboratory Tests 06/16/20 11:30: Creatinine 0.77, INR Comment 1.1, Platelet Count 179, Total Bilirubin 0.7 Results/Orders Lab Results Laboratory Tests Test 06/16/20 11:20 06/16/20 11:23 06/16/20 11:30 Range/Units Coronavirus 2019 (JOÃO) Positive H Negative Blood Gas Puncture Site LT RADIAL Blood Gas Patient Temperature 96.8 Arterial Blood pH 7.41 7.37-7.43 Arterial Blood Partial Pressure CO2 41 35-45 MMHG Arterial Blood Partial Pressure O2 86 79-93 MMHG Arterial Blood HCO3 26 23-27 MMOL/L Arterial Blood Total CO2 27.3 21.0-31.0 MMOL/L Arterial Blood Oxygen Saturation 97 94-100 % Arterial Blood Base Excess 1.6 -2.5-2.5 MMOL/L Anish Test YES-POS Blood Gas Ventilator Setting NO Blood Gas Inspired Oxygen ROOM AIR White Blood Count 6.2 4.3-11.0 10^3/uL Red Blood Count 4.84 3.80-5.11 10^6/uL Hemoglobin 14.0 11.5-16.0 g/dL Hematocrit 43 35-52 % Mean Corpuscular Volume 90 80-99 fL Mean Corpuscular Hemoglobin 29 25-34 pg Mean Corpuscular Hemoglobin Concent 32 32-36 g/dL Red Cell Distribution Width 13.5 10.0-14.5 % Platelet Count 179 130-400 10^3/uL Mean Platelet Volume 9.9 9.0-12.2 fL Immature Granulocyte % (Auto) 1 % Neutrophils (%) (Auto) 72 42-75 % Lymphocytes (%) (Auto) 20 12-44 % Monocytes (%) (Auto) 6 0-12 % Eosinophils (%) (Auto) 2 0-10 % Basophils (%) (Auto) 0 0-10 % Neutrophils # (Auto) 4.4 1.8-7.8 10^3/uL Lymphocytes # (Auto) 1.2 1.0-4.0 10^3/uL Monocytes # (Auto) 0.4 0.0-1.0 10^3/uL Eosinophils # (Auto) 0.1 0.0-0.3 10^3/uL Basophils # (Auto) 0.0 0.0-0.1 10^3/uL Immature Granulocyte # (Auto) 0.0 0.0-0.1 10^3/uL Prothrombin Time 14.3 12.2-14.7 SEC INR Comment 1.1 0.8-1.4 Sodium Level 141 135-145 MMOL/L Potassium Level 4.3 3.6-5.0 MMOL/L Chloride Level 105 98-107 MMOL/L Carbon Dioxide Level 22 21-32 MMOL/L Anion Gap 14 5-14 MMOL/L Blood Urea Nitrogen 12 7-18 MG/DL Creatinine 0.77 0.60-1.30 MG/DL Estimat Glomerular Filtration Rate > 60 BUN/Creatinine Ratio 16 Glucose Level 132 H 70-105 MG/DL Calcium Level 8.8 8.5-10.1 MG/DL Corrected Calcium 8.7 8.5-10.1 MG/DL Total Bilirubin 0.7 0.1-1.0 MG/DL Aspartate Amino Transf (AST/SGOT) 17 5-34 U/L Alanine Aminotransferase (ALT/SGPT) 18 0-55 U/L Alkaline Phosphatase 89 40-136 U/L Troponin I < 0.028 <0.028 NG/ML C-Reactive Protein High Sensitivity 0.81 H 0.00-0.50 MG/DL Total Protein 6.8 6.4-8.2 GM/DL Albumin 4.1 3.2-4.5 GM/DL Procalcitonin 0.04 <0.10 NG/ML Micro Results Microbiology 06/16/20 Influenza Types A,B Antigen (JONY) - Final, Complete My Orders Orders - BROCK GUERRA Arterial Blood Gas (06/16/20 11:25) Cbc With Automated Diff (06/16/20 11:28) Comprehensive Metabolic Panel (06/16/20 11:28) Protime With Inr (06/16/20 11:28) Hs C Reactive Protein (06/16/20 11:28) Procalcitonin (Pct) (06/16/20 11:28) Chest 1 View, Ap/Pa Only (06/16/20 11:28) Ekg Tracing (06/16/20 11:28) Continuous Ekg Monitoring (06/16/20 11:28) Troponin I (06/16/20 11:28) Lactated Ringers (Lr 1000 Ml Iv Solution (06/16/20 11:30) Influenza A And B Antigens (06/16/20 11:28) Covid 19 Inhouse Test (06/16/20 11:28) Dexamethasone Injection (Decadron Injec (06/16/20 11:30) Medications Given in ED Current Medications Medications Dose Ordered Sig/Lisa Route Start Time Stop Time Status Last Admin Dose Admin Dexamethasone Sodium Phosphate 6 mg ONCE ONCE IV 06/16/20 11:30 06/16/20 11:32 DC 06/16/20 12:04 6 MG Vital Signs/I&O 06/16/20 11:11 Temp 36.0 Pulse 76 Resp 36 B/P (MAP) 177/96 (123) Pulse Ox 95 Capillary Refill : Progress Note : Time: 12:53 Progress Note The patient is quite wheezy and improved after some albuterol. She has COVID-19. Her labs are unremarkable as is chest x-ray. We discussed this with her primary care doctor who is familiar with her and knows she is a very brittle asthmatic and would like her placed inpatient. We already gave her Decadron. ECG Initial ECG Impression Date: Jun 16, 2020 Initial ECG Impression Time: 11:51 Initial ECG Rate: 56 Initial ECG Rhythm: Normal Sinus Initial ECG Intervals: Normal Initial ECG Impression: Normal Initial ECG Comparisson: No Previous ECG Available Comment Normal sinus rhythm no clinically relevant ST changes. Diagnostic Imaging Diagonstic Imaging: Xray Plain Films/CT/US/NM/MRI: chest Comments [facility] [place] [place] NAME: TUSHAR ESTEVEZ [facility] REC#: [id number] PT STATUS: REG ER : 1945 PHYSICIAN: BROCK GUERRA MD ADMIT DATE: 06/16/20/ER Signed Date of Exam:06/16/20 CHEST 1 VIEW, AP/PA ONLY EXAMINATION: Chest 1 view HISTORY: Cough. Shortness of breath. COMPARISON: 12/19/2018. FINDINGS: The lung volumes are normal. No focal consolidation is seen. No large pleural effusion or pneumothorax is seen. The cardiomediastinal silhouette is prominent. No acute osseous abnormality is seen. IMPRESSION: 1. Cardiomegaly. No overt pulmonary edema. No focal consolidations. Dictated by: Dictated on workstation # [id number] Dict: 06/16/20 1216 Trans: 06/16/20 1227 [facility] [id number] Interpreted by: MICHELE COLLAZO DO Electronically signed by: MICHELE COLLAZO DO 06/16/20 1227 Reviewed: Reviewed by Me Departure Communication (Admissions) Time/Spoke to Admitting Phy: 12:30 Discussed the case with Dr. Darnell and she would like to admit the patient for asthma attack and COVID-19 and initiate steroids, remdesivir, convalescent plasma. She will put orders in. Impression Primary Impression: COVID-19 Additional Impression: Asthma attack Qualified Codes: J45.901 - Unspecified asthma with (acute) exacerbation Disposition: ADMITTED INPATIENT Condition: Stable Admissions Decision to Admit Reason: Admit from ER (General) Decision to Admit/Date: Jun 16, 2020 Time/Decision to Admit Time: 12:00 Departure-Patient Inst. Referrals: ANAY DARNELL DO (PCP/Family) Primary Care Physician BROCK GUERRA Jun 16, 2020 11:33
[2020-06-16 11:43] LABS: BASOPHILS % (AUTO) 0 % (0-10); EOSINOPHILS # (AUTO) 0.1 10^3/uL (0.0-0.3); EOSINOPHILS % (AUTO) 2 % (0-10); HEMATOCRIT 43 % (35-52); LYMPHOCYTES # (AUTO) 1.2 10^3/uL (1.0-4.0); LYMPHOCYTES % (AUTO) 20 % (12-44); MEAN CORPUSCULAR HEMOGLOBIN 29 pg (25-34); MEAN CORPUSCULAR HGB CONC 32 g/dL (32-36); MEAN CORPUSCULAR VOLUME 90 fL (80-99); MEAN PLATELET VOLUME 9.9 fL (9.0-12.2); MONOCYTES # (AUTO) 0.4 10^3/uL (0.0-1.0); MONOCYTES % (AUTO) 6 % (0-12); NEUTROPHILS # (AUTO) 4.4 10^3/uL (1.8-7.8); NEUTROPHILS % (AUTO) 72 % (42-75); PLATELET COUNT 179 10^3/uL (130-400); WHITE BLOOD COUNT 6.2 10^3/uL (4.3-11.0)
[2020-06-16 11:52] LABS: INR 1.1 (0.8-1.4); PROTHROMBIN TIME PATIENT 14.3 SEC (12.2-14.7)
[2020-06-16 11:54] LABS: ALBUMIN 4.1 GM/DL (3.2-4.5); CHLORIDE 105 MMOL/L (98-107); POTASSIUM 4.3 MMOL/L (3.6-5.0); SODIUM 141 MMOL/L (135-145)
[2020-06-16 11:55] LABS: CALCIUM 8.8 MG/DL (8.5-10.1)
[2020-06-16 11:56] LABS: GLUCOSE 132 MG/DL (70-105); TOTAL PROTEIN 6.8 GM/DL (6.4-8.2)
[2020-06-16 11:57] LABS: CARBON DIOXIDE 22 MMOL/L (21-32)
[2020-06-16 11:58] LABS: BILIRUBIN,TOTAL 0.7 MG/DL (0.1-1.0)
[2020-06-16 12:00] LABS: ALKALINE PHOSPHATASE 89 U/L (40-136); CREATININE SERUM 0.77 MG/DL (0.60-1.30); GFR ESTIMATED > 60
[2020-06-16 12:01] LABS: BUN/CREATININE RATIO 16
[2020-06-16 12:03] LABS: ALANINE AMINOTRANSFERASE 18 U/L (0-55)
--- NOTE | 2020-06-16 12:19 | Diagnostic Imaging Report ---
EXAMINATION: Chest 1 view HISTORY: Cough. Shortness of breath. COMPARISON: 12/19/2018. FINDINGS: The lung volumes are normal. No focal consolidation is seen. No large pleural effusion or pneumothorax is seen. The cardiomediastinal silhouette is prominent. No acute osseous abnormality is seen. IMPRESSION: 1. Cardiomegaly. No overt pulmonary edema. No focal consolidations. Dictated by: Dictated on workstation # [id number]
--- NOTE | 2020-06-16 13:13 | History & Physical-Hospitalist ---
History of Present Illness HPI/Chief Complaint CC: Dypsnea HPI: This is a 75yoWF clinic patient of [facility] for the past 17 years who has a complicated medical history mainly from AF RVR requiring ablation and multiple anti-arrhythmic meds managed by Dr Ang and Dr Thompson along with asthma and ADOLPH on CPAP with O2 at night who presents to the ER with worsened dyspnea and the start of a cough and was found to have COVID + swab. she started with a cough a few days after her son was found to have COVID. No fever reported. Patient is at high risk for complications given obesity, asthma, ADOLPH with O2 dependency and diabetes. Patient was counseled regarding convalescent plasma and Decadron and Rendesivir and she agreed with the plan. Source: patient Exam Limitations: no limitations Date Seen 06/16/20 Time Seen by a Provider: 13:00 Attending Physician Breanna Darnell DO PCP Breanna Darnell DO Referring Physician Date of Admission Jun 16, 2020 at 12:43 Home Medications & Allergies Home Medications Reviewed patient Home Medication Reconciliation performed by pharmacy medication reconciliations fisheries technician and/or nursing. Patients Allergies have been reviewed. Allergies Allergies Coded Allergies sulfamethoxazole (Verified Allergy, Intermediate, rash, SOB, 10/23/18) trimethoprim (Verified Allergy, Intermediate, rash, SOB, 10/23/18) cephalexin (Verified Allergy, Unknown, 10/02/18) Past Eiempgs-Mrnhfq-Tgdbkw Hx Past Med/Social Hx: Reviewed Nursing Past Med/Soc Hx, Reviewed and Corrections made Patient Social History Marrital Status: Employed/Student: retired Alcohol Use: Occasionally Uses Alcohol Beverage of Choice: Wine Recreational Drug Use: No Smoking Status: Never a Smoker Type Used: Cigarettes 2nd Hand Smoke Exposure: No Recent Foreign Travel: No Contact w/other who traveled: No Recent Hopitalizations: No (ER VISIT FEW DAYS AGO DRUG REACTION AND ASTHMA ATTACK) Recent Infectious Disease Expo: No Immunizations Up To Date Tetanus Booster (TDap): Less than 5yrs Date of Pneumonia Vaccine: May 04, 2017 Date of Influenza Vaccine: Apr 25, 2019 Seasonal Allergies Seasonal Allergies: No Past Medical History Surgeries: Bladder Surgery, Gallbladder, Hysterectomy, Joint Replacement, Orthopedic Respiratory: Asthma, Sleep Apnea Currently Using CPAP: Yes (WITH O2) Currently Using BIPAP: No Cardiac: Atrial Fibrillation, High Cholesterol, Hypertension Reproductive: No Sexually Transmitted Disease: No Menopausal Genitourinary: Bladder Infection Gastrointestinal: Hiatal Hernia Musculoskeletal: Arthritis Endocrine: Diabetes, Non-Insulin dep HEENT: Cataract Loss of Vision: Bilateral Hearing Impairment: Denies Psychosocial: Depression History of Blood Disorders: No Adverse Reaction to Blood Singh: No Family History Arthritis 19 MOTHER Cataracts 19 FATHER 19 MOTHER Colon cancer 19 FATHER Deafness or hearing loss 19 FATHER Dementia 19 FATHER FH: macular degeneration 19 MOTHER FH: prostate cancer 19 FATHER FH: skin cancer 19 FATHER Gout 19 MOTHER Hypertension 19 FATHER 19 MOTHER Myocardial infarction 19 FATHER 19 MOTHER Review of Systems Constitutional: see HPI, malaise, weakness Respiratory: cough, dyspnea on exertion Physical Exam Physical Exam Vital Signs Vital Signs - First Documented 06/16/20 06/16/20 06/16/20 06/16/20 11:11 14:06 15:41 16:21 Temp 36.0 Pulse 76 Resp 36 B/P (MAP) 177/96 (123) Pulse Ox 95 O2 Delivery Room Air O2 Flow Rate 2.00 FiO2 21 Capillary Refill : Less Than 3 Seconds Height, Weight, BMI Height: 5'7.00" Weight: 286lbs. 0.4oz. 124.491614qk; 43.00 BMI Method:Stated General Appearance: No Apparent Distress, Chronically ill Eyes: Right Eye Normal Inspection, Right Eye PERRL HEENT: PERRL/EOMI, Normal ENT Inspection, Pharynx Normal, Moist Mucous Membranes Neck: Full Range of Motion, Normal Inspection, Non Tender Respiratory: Chest Non Tender, Lungs Clear, No Accessory Muscle Use, No Respiratory Distress, Decreased Breath Sounds Cardiovascular: Regular Rate, Rhythm, No Edema, No Gallop, No JVD, No Murmur, Normal Peripheral Pulses Gastrointestinal: Normal Bowel Sounds, No Organomegaly, No Pulsatile Mass, Non Tender, Soft Back: Normal Inspection, No CVA Tenderness, No Vertebral Tenderness Extremity: Normal Capillary Refill, Normal Inspection, Normal Range of Motion, Non Tender, No Calf Tenderness, No Pedal Edema Neurologic/Psychiatric: Alert, Oriented x3, No Motor/Sensory Deficits, Normal 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 Assessment/Plan Admission Diagnosis Assessment: COVID-19 with dyspnea and cough Asthma ADOLPH on CPAP with O2 at night bled into machine DM HTN HLP AF s/p ablation DR Thompson UTI Urinary incontinence sees Urology [facility] Plan: Plasma Remdesivir Decadron O2 CPAP Dr Thompson counseled Home Eliquis Admission Status: Inpatient Order (span 2 midnights) Reason for Inpatient Admission: covid 19 Diagnosis/Problems Diagnosis/Problems (1) COVID-19 Status: Acute (2) ADOLPH on CPAP Status: Chronic (3) Recurrent UTI Status: Chronic (4) Obesity Status: Chronic (5) Hyperlipidemia Status: Chronic (6) Depression Status: Chronic (7) Anxiety Status: Chronic (8) Insomnia Status: Chronic (9) PAF (paroxysmal atrial fibrillation) (10) Mild dehydration Status: Acute BREANNA DARNELL DO Jun 16, 2020 13:13
[2020-06-16] MEDS ORDERED: CALCIUM CARBONATE 500 MG (TUMS) TAB.CHEW PO PRN (13:15)
[2020-06-16] MEDS ORDERED: REMDESIVIR INJ 100 MG in NS (IVPB) 230 ML IV SCH (13:15)
[2020-06-16] MEDS ORDERED: ACETAMINOPHEN 325 MG TABLET PO PRN (13:15)
[2020-06-16] MEDS ORDERED: REMDESIVIR INJ 200 MG in NS (IVPB) 210 ML IV ONE (13:15)
[2020-06-16] MEDS ORDERED: DOCUSATE SODIUM 100 MG (COLACE) CAP PO PRN (13:15)
[2020-06-16] MEDS ORDERED: diphenhydrAMINE 25 MG TAB (BENADRYL) PO PRN (13:15)
[2020-06-16] MEDS ORDERED: guaiFENesin/CODEINE (ROBITUSSIN AC) 10ML UDC PO PRN (13:15)
[2020-06-16] MEDS ORDERED: ALPRAZolam 0.25 MG (XANAX) TAB PO PRN (13:15)
[2020-06-16] MEDS ORDERED: MELATONIN 3 MG TABLET PO PRN (13:15)
[2020-06-16] MEDS ORDERED: ONDANSETRON 4 MG/5 ML ORAL SOLN (ZOFRAN) 5 ML PO PRN (13:15)
[2020-06-16] MEDS ORDERED: ONDANSETRON 4 MG/2 ML (SDV) Z0FRAN IVP PRN (13:15)
[2020-06-16] MEDS ORDERED: HYDROcodone/APAP 5 MG/325 MG (LORTAB) TAB PO PRN (13:15)
[2020-06-16] MEDS ORDERED: RT-ALBUTEROL INHALER HFA (VENTOLIN HFA) 18 GM IH PRN (15:45)
[2020-06-16] MEDS: NS IV 1000 ML 1,000 ML IV SCH (15:58)
[2020-06-16] MEDS ORDERED: LORATADINE (CLARITIN) 10 MG TAB PO ONE (17:00)
[2020-06-16] MEDS: APIXABAN 5 MG (ELIQUIS) TABLET PO SCH (21:06)
[2020-06-16] MEDS: MONTELUKAST 10 MG (SINGULAIR) TAB PO SCH (21:06)
[2020-06-16] MEDS: SENNA W/DOCUSATE (SENOKOT S) TABLET PO SCH (21:06)
[2020-06-16] MEDS: ADVAIR HFA 115/21 MCG INHALER 8 GM IH SCH (21:26)
[2020-06-16] MEDS: ALBUTEROL/IPRATROP (COMBIVENT RESPIMAT) 4 GM INHALER IH SCH (21:27)
[2020-06-17] VITALS (8 sets, daily range): BP systolic 124–206; BP diastolic 71–86
[2020-06-17] MEDS: ALBUTEROL/IPRATROP (COMBIVENT RESPIMAT) 4 GM INHALER IH SCH ×4 (02:16→19:40)
[2020-06-17 06:07] LABS: BASOPHILS % (AUTO) 0 % (0-10); EOSINOPHILS % (AUTO) 0 % (0-10); HEMATOCRIT 40 % (35-52); HEMOGLOBIN 13.1 g/dL (11.5-16.0); LYMPHOCYTES # (AUTO) 0.9 10^3/uL (1.0-4.0); LYMPHOCYTES % (AUTO) 10 % (12-44); MEAN CORPUSCULAR HEMOGLOBIN 29 pg (25-34); MEAN CORPUSCULAR HGB CONC 32 g/dL (32-36); MEAN CORPUSCULAR VOLUME 90 fL (80-99); MEAN PLATELET VOLUME 9.6 fL (9.0-12.2); MONOCYTES # (AUTO) 0.3 10^3/uL (0.0-1.0); MONOCYTES % (AUTO) 4 % (0-12); NEUTROPHILS # (AUTO) 7.6 10^3/uL (1.8-7.8); NEUTROPHILS % (AUTO) 85 % (42-75); PLATELET COUNT 182 10^3/uL (130-400); WHITE BLOOD COUNT 8.9 10^3/uL (4.3-11.0)
[2020-06-17 06:24] LABS: ALBUMIN 3.8 GM/DL (3.2-4.5); CHLORIDE 104 MMOL/L (98-107); POTASSIUM 4.2 MMOL/L (3.6-5.0); SODIUM 140 MMOL/L (135-145)
[2020-06-17 06:25] LABS: CALCIUM 8.6 MG/DL (8.5-10.1)
[2020-06-17 06:27] LABS: GLUCOSE 130 MG/DL (70-105); TOTAL PROTEIN 6.4 GM/DL (6.4-8.2)
[2020-06-17 06:28] LABS: BILIRUBIN,TOTAL 0.6 MG/DL (0.1-1.0); CARBON DIOXIDE 24 MMOL/L (21-32)
[2020-06-17 06:30] LABS: ALKALINE PHOSPHATASE 79 U/L (40-136); CREATININE SERUM 0.76 MG/DL (0.60-1.30); GFR ESTIMATED > 60
[2020-06-17 06:31] LABS: BUN/CREATININE RATIO 20
[2020-06-17 06:33] LABS: ALANINE AMINOTRANSFERASE 19 U/L (0-55)
[2020-06-17] MEDS: dexAMETHasone 6 MG TAB (DECADRON) PO SCH (08:08)
[2020-06-17] MEDS: SENNA W/DOCUSATE (SENOKOT S) TABLET PO SCH ×2 (08:08→20:22)
[2020-06-17] MEDS: LORATADINE (CLARITIN) 10 MG TAB PO SCH (08:09)
[2020-06-17] MEDS: APIXABAN 5 MG (ELIQUIS) TABLET PO SCH ×3 (08:09→19:51)
[2020-06-17] MEDS: NS IV 1000 ML 1,000 ML IV SCH (10:24)
[2020-06-17] MEDS: ADVAIR HFA 115/21 MCG INHALER 8 GM IH SCH ×2 (11:02→19:40)
--- NOTE | 2020-06-17 11:04 | Progress Note - Hospitalist ---
Subjective HPI/CC On Admission Date Seen by Provider: Jun 17, 2020 Time Seen by Provider: 10:30 CC: Dypsnea HPI: This is a 75yoWF clinic patient of [facility] for the past 17 years who has a complicated medical history mainly from AF RVR requiring ablation and multiple anti-arrhythmic meds managed by Dr Ang and Dr Thompson along with asthma and ADOLPH on CPAP with O2 at night who presents to the ER with worsened dyspnea and start of a cough and was found to have COVID + swab. she started with a cough a few days after her son was found to have COVID. No fever reported. Patient is at high risk for complications given obesity, asthma, ADOLPH with O2 dependency and diabetes. Patient was counseled regarding convalescent plasma and Decadron and Rendesivir and she agreed with the plan. Subjective/Events-last exam Pt doing pretty well although having urinary frequency so UA will be obtained with in and out cath Received plasma yesterday for Covid-19 On Remdesivir Cardiology consulted but no acute issues so will monitor that closely Will heplock IV fluid to decrease the chance of overload Review of Systems General: Fatigue, Malaise Objective Exam Vital Signs Vital Signs Date Time Temp Pulse Resp B/P (MAP) Pulse Ox O2 Delivery O2 Flow Rate FiO2 06/18/20 02:23 94 Nasal Cannula 2.00 06/18/20 01:43 36.0 46 18 184/92 (122) 06/16/20 15:41 21 Capillary Refill : Less Than 3 SecondsLess Than 3 Seconds General Appearance: No Apparent Distress, WD/WN, Chronically ill, Obese Respiratory: Chest Non Tender, Normal Breath Sounds, No Accessory Muscle Use, No Respiratory Distress, Decreased Breath Sounds Cardiovascular: Regular Rate, Rhythm, No Edema, No Gallop, No JVD, No Murmur, Normal Peripheral Pulses Neurologic/Psychiatric: Alert, Oriented x3, No Motor/Sensory Deficits, Normal Mood/Affect Results/Procedures Lab Laboratory Tests 06/17/20 05:33 Patient resulted labs reviewed. Assessment/Plan Assessment and Plan Assess & Plan/Chief Complaint Assessment: COVID-19 with dyspnea and cough Asthma ADOLPH on CPAP with O2 at night bled into machine DM HTN HLP AF s/p ablation DR Thompson UTI Urinary incontinence sees Urology [facility] Plan: Plasma Remdesivir Decadron O2 CPAP Dr Thompson counseled Home Eliquis 06/17/20: Check UA in/out cath Home meds COVID-19 treatment Diagnosis/Problems Diagnosis/Problems (1) COVID-19 Status: Acute (2) ADOLPH on CPAP Status: Chronic (3) Recurrent UTI Status: Chronic (4) Obesity Status: Chronic (5) Hyperlipidemia Status: Chronic (6) Depression Status: Chronic (7) Anxiety Status: Chronic (8) Insomnia Status: Chronic (9) PAF (paroxysmal atrial fibrillation) (10) Mild dehydration Status: Acute Clinical Quality Measures DVT/VTE Risk/Contraindication: Risk Factor Score Per Nursin RFS Level Per Nursing on Admit: 3=High ANAY DARNELL DO Jun 17, 2020 11:04
[2020-06-17] MEDS ORDERED: LISI-552 PO (11:21)
[2020-06-17] MEDS ORDERED: [UNRECOGNIZED DRUG - CODE] PO (11:21)
[2020-06-17] MEDS ORDERED: POTA10CA43 PO (11:21)
[2020-06-17] MEDS ORDERED: ACET-2267 PO (11:21)
[2020-06-17] MEDS ORDERED: ASCO-262 PO (11:21)
[2020-06-17 11:22] LABS: BILIRUBIN,URINE NEGATIVE (NEGATIVE); CLARITY,URINE CLEAR; COLOR,URINE YELLOW; GLUCOSE, URINE (UA) NEGATIVE (NEGATIVE); KETONES,URINE NEGATIVE (NEGATIVE); LEUKOCYTE ESTERASE ,URINE NEGATIVE (NEGATIVE); NITRITE,URINE NEGATIVE (NEGATIVE); PH,URINE 6.5 (5-9); PROTEIN,URINE NEGATIVE (NEGATIVE)
--- NOTE | 2020-06-17 11:24 | NUR ---
SPOKE WITH THE PT (CALLED HER ROOM PHONE) AND WENT THRU THE EXT MED HISTORY TO COMPLETE THE MED REC PT WAS ABLE TO NAME ALL HER MEDICATIONS WELL WHEN/HOW SHE TAKES EACH THE FOLLOWING MEDICATIONS REFILLS ARE PAST DUE- I INCLUDED THE FILL DATES ON THE MED REC: DOXAZOSIN 2MG LAST FILLED 11-20-2019 #90/90DS FUROSEMIDE 40MG LAST FILLED 11-19-2019 #90/90DS ATORVASTATIN 20MG LAST FILLED 10-26-2019 #90/90DS OTC MEDS: LORATADINE VIT D3 VIT C TYLENOL
[2020-06-17] MEDS ORDERED: ACETAMINOPHEN 500 MG TAB (TYLENOL) PO PRN (11:30)
[2020-06-17] MEDS ORDERED: FLUTICASONE NASAL SPRAY (FLONASE) 16 GM BTL NS PRN (11:30)
[2020-06-17] MEDS ORDERED: NON-FORMULARY MEDICATION 1 EA EA (Fluticasone/Salmeterol (Advair 100-50 Diskus) 1 PUFF) INH PRN (11:30)
[2020-06-17 11:50] LABS: RBC,URINE 0-2 /HPF
[2020-06-17 11:51] LABS: BACTERIA,URINE NEGATIVE /HPF; SQUAMOUS EPITHELIAL CELL,UR 0-2 /HPF; WBC,URINE 0-2 /HPF
[2020-06-17] MEDS ORDERED: RT-ALBUTEROL INHALER HFA (VENTOLIN HFA) 18 GM IH PRN (12:15)
[2020-06-17] MEDS ORDERED: meTOproloL SUCCINATE 50 MG (TOPROL XL) TAB PO ONE (12:50)
[2020-06-17] MEDS ORDERED: lisINopril 20 MG (PRINIVIL) TABLET ONE (12:50)
[2020-06-17] MEDS: meTOproloL SUCCINATE 50 MG (TOPROL XL) TAB PO SCH (12:52)
[2020-06-17] MEDS: REMDESIVIR INJ 100 MG in NS (IVPB) 230 ML IV SCH (12:53)
[2020-06-17] MEDS: lisINopril 20 MG (PRINIVIL) TABLET PO SCH (12:53)
--- NOTE | 2020-06-17 12:54 | NUR ---
b/p elevated this a.m., Dr. Broderick wanted all a.m. b/p medications to be restarted this a.m. not tomorrow. This RN gave b/p medications per Dr. Broderick.
--- NOTE | 2020-06-17 14:33 | NUR ---
"RD ASSESSMENT PMHx: afib; hypercholesterolemia; HTN; DM; PT INTERACTION: Note pt is currently in COVID isolation, per chart review. Note all diet information for nutrition assessment is per Salas RN or per chart review. Salas states current appetite appears good. Note PO intake 100% x1meal, per chart review. Salas states no issues with nausea, vomiting, constipation, or diarrhea that he is aware of, and that their last BM was 06/15. Note pt currently on bowel regimen of senna BID, per chart review. Note unable to determine recent wt hx, per chart review. Note unable to determine current level of DM management, or recent HbA1c, per chart review. ABNORMAL NUTRITION-RELATED LAB VALUES LOW: HIGH: glu 130; Est. kcal needs: 4165-5159 kcal | 15-18 kcal/kg Est. Pro needs: 104-130 g Pro | 0.8-1.0 g Pro/kg PES STATEMENT: Given current PO intake, no nutrition diagnosis at this time (NO-1.1). INTERVENTION: Continue with current diet order of CHO 45g/m 3snack diet. Did not offer diet education on DM management d/t COVID isolation. Will continue to follow and reassess as pt needs, intake, and status change. Arie Cary, MS RD LD"
[2020-06-17] MEDS: MONTELUKAST 10 MG (SINGULAIR) TAB PO SCH ×2 (18:52→19:51)
[2020-06-17] MEDS: traZODone 50 MG (DESYREL) TAB PO SCH (19:51)
[2020-06-17] MEDS: doxAzosin 2 MG (CARDURA) TAB PO SCH (19:51)
[2020-06-17] MEDS ORDERED: cloNIDine 0.1 MG (CATAPRES) TAB PO PRN (20:00)
[2020-06-17] MEDS ORDERED: amLODIPine 5 MG (NORVASC) TAB ONE (20:00)
[2020-06-17] MEDS ORDERED: amLODIPine 5 MG (NORVASC) TAB PO NR (20:00)
[2020-06-17] MEDS ORDERED: cloNIDine 0.1 MG (CATAPRES) TAB ONE (20:02)
--- NOTE | 2020-06-17 22:44 | NUR ---
Dr. Broderick notified at 1955 about this pt's last 2 BP's being systolically >200. Norvasc PO 5mg ONCE and Clonidine 0.1mg PO q4HR PRN were ordered and given. BP was 159/76 at 2215. Will continue to monitor and provide care as ordered.
[2020-06-18] VITALS (8 sets, daily range): BP systolic 134–190; BP diastolic 63–92
[2020-06-18] MEDS: cloNIDine 0.1 MG (CATAPRES) TAB PO PRN ×2 (00:42→04:53)
[2020-06-18] MEDS: ALBUTEROL/IPRATROP (COMBIVENT RESPIMAT) 4 GM INHALER IH SCH ×4 (02:23→18:29)
[2020-06-18 06:06] LABS: BASOPHILS % (AUTO) 0 % (0-10); EOSINOPHILS % (AUTO) 0 % (0-10); HEMATOCRIT 41 % (35-52); HEMOGLOBIN 13.4 g/dL (11.5-16.0); LYMPHOCYTES # (AUTO) 1.2 10^3/uL (1.0-4.0); LYMPHOCYTES % (AUTO) 11 % (12-44); MEAN CORPUSCULAR HEMOGLOBIN 29 pg (25-34); MEAN CORPUSCULAR HGB CONC 33 g/dL (32-36); MEAN CORPUSCULAR VOLUME 89 fL (80-99); MEAN PLATELET VOLUME 9.7 fL (9.0-12.2); MONOCYTES # (AUTO) 0.5 10^3/uL (0.0-1.0); MONOCYTES % (AUTO) 4 % (0-12); NEUTROPHILS # (AUTO) 8.8 10^3/uL (1.8-7.8); NEUTROPHILS % (AUTO) 83 % (42-75); PLATELET COUNT 191 10^3/uL (130-400); WHITE BLOOD COUNT 10.6 10^3/uL (4.3-11.0)
[2020-06-18] MEDS: KCL 20 MEQ TAB (K-DUR) PO SCH (06:16)
[2020-06-18 06:20] LABS: ALBUMIN 3.8 GM/DL (3.2-4.5)
[2020-06-18 06:21] LABS: CHLORIDE 105 MMOL/L (98-107); POTASSIUM 3.8 MMOL/L (3.6-5.0); SODIUM 142 MMOL/L (135-145)
[2020-06-18 06:22] LABS: CALCIUM 8.6 MG/DL (8.5-10.1)
[2020-06-18 06:23] LABS: GLUCOSE 118 MG/DL (70-105); TOTAL PROTEIN 6.3 GM/DL (6.4-8.2)
[2020-06-18 06:24] LABS: CARBON DIOXIDE 26 MMOL/L (21-32)
[2020-06-18 06:25] LABS: BILIRUBIN,TOTAL 0.5 MG/DL (0.1-1.0)
[2020-06-18 06:27] LABS: ALKALINE PHOSPHATASE 70 U/L (40-136); CREATININE SERUM 0.76 MG/DL (0.60-1.30); GFR ESTIMATED > 60
[2020-06-18 06:28] LABS: BUN/CREATININE RATIO 25
[2020-06-18 06:30] LABS: ALANINE AMINOTRANSFERASE 14 U/L (0-55)
[2020-06-18] MEDS: ADVAIR HFA 115/21 MCG INHALER 8 GM IH SCH ×2 (06:31→18:30)
[2020-06-18] MEDS: lisINopril 20 MG (PRINIVIL) TABLET PO SCH (08:29)
[2020-06-18] MEDS: ESTRADIOL 1 MG TAB (ESTRACE) PO SCH (08:32)
[2020-06-18] MEDS: APIXABAN 5 MG (ELIQUIS) TABLET PO SCH ×3 (08:33→21:09)
[2020-06-18] MEDS: SERTRALINE 100 MG (ZOLOFT) TAB PO SCH (08:34)
[2020-06-18] MEDS: LORATADINE (CLARITIN) 10 MG TAB PO SCH ×2 (08:34→08:36)
[2020-06-18] MEDS: SENNA W/DOCUSATE (SENOKOT S) TABLET PO SCH ×2 (08:35→21:10)
[2020-06-18] MEDS: dexAMETHasone 6 MG TAB (DECADRON) PO SCH (08:35)
[2020-06-18] MEDS: FUROSEMIDE 40 MG (LASIX) TAB PO SCH (08:45)
[2020-06-18] MEDS: meTOproloL SUCCINATE 50 MG (TOPROL XL) TAB PO SCH (08:45)
--- NOTE | 2020-06-18 10:37 | Progress Note - Hospitalist ---
Subjective HPI/CC On Admission Date Seen by Provider: Jun 18, 2020 Time Seen by Provider: 10:00 CC: Dypsnea HPI: This is a 75yoWF clinic patient of [facility] for the past 17 years who has a complicated medical history mainly from AF RVR requiring ablation and multiple anti-arrhythmic meds managed by Dr Ang and Dr Thompson along with asthma and ADOLPH on CPAP with O2 at night who presents to the ER with worsened dyspnea and start of a cough and was found to have COVID + swab. she started with a cough a few days after her son was found to have COVID. No fever reported. Patient is at high risk for complications given obesity, asthma, ADOLPH with O2 dependency and diabetes. Patient was counseled regarding convalescent plasma and Decadron and Rendesivir and she agreed with the plan. Subjective/Events-last exam Will discontinue telemetry Pt doing really well overall Told her UA was normal Not requiring oxygen right now Continuing on Covid treatment, she is high risk for intubation Review of Systems General: Fatigue, Malaise Pulmonary: Dyspnea Objective Exam Vital Signs Vital Signs Date Time Temp Pulse Resp B/P (MAP) Pulse Ox O2 Delivery O2 Flow Rate FiO2 06/19/20 03:37 36.3 46 21 155/72 (99) 95 NIV CPAP 06/19/20 02:58 2.00 06/16/20 15:41 21 Capillary Refill : Less Than 3 SecondsLess Than 3 Seconds General Appearance: No Apparent Distress, WD/WN, Chronically ill Respiratory: Chest Non Tender, Lungs Clear, Normal Breath Sounds, No Accessory Muscle Use, No Respiratory Distress, Decreased Breath Sounds Cardiovascular: Regular Rate, Rhythm, No Edema, No Gallop, No JVD, No Murmur, Normal Peripheral Pulses Neurologic/Psychiatric: Alert, Oriented x3, No Motor/Sensory Deficits, Normal Mood/Affect Results/Procedures Lab Laboratory Tests 06/19/20 05:55 Patient resulted labs reviewed. Assessment/Plan Assessment and Plan Assess & Plan/Chief Complaint Assessment: COVID-19 with dyspnea and cough Asthma ADOLPH on CPAP with O2 at night bled into machine DM HTN HLP AF s/p ablation DR Thompson UTI Urinary incontinence sees Urology [facility] Plan: Plasma Remdesivir Decadron O2 CPAP Dr Thompson counseled Home Eliquis 06/17/20: Check UA in/out cath Home meds COVID-19 treatment 06/18/20: Complete COVID-19 treatment Monitor pain Diagnosis/Problems Diagnosis/Problems (1) COVID-19 Status: Acute (2) ADOLPH on CPAP Status: Chronic (3) Recurrent UTI Status: Chronic (4) Obesity Status: Chronic (5) Hyperlipidemia Status: Chronic (6) Depression Status: Chronic (7) Anxiety Status: Chronic (8) Insomnia Status: Chronic (9) PAF (paroxysmal atrial fibrillation) (10) Mild dehydration Status: Acute Clinical Quality Measures DVT/VTE Risk/Contraindication: Risk Factor Score Per Nursin RFS Level Per Nursing on Admit: 3=High ANAY DARNELL DO Jun 18, 2020 10:37
[2020-06-18] MEDS: REMDESIVIR INJ 100 MG in NS (IVPB) 230 ML IV SCH (13:28)
[2020-06-18] MEDS: doxAzosin 2 MG (CARDURA) TAB PO SCH (21:08)
[2020-06-18] MEDS: traZODone 50 MG (DESYREL) TAB PO SCH (21:09)
[2020-06-18] MEDS: MONTELUKAST 10 MG (SINGULAIR) TAB PO SCH ×2 (21:10)
[2020-06-19] MEDS: ALBUTEROL/IPRATROP (COMBIVENT RESPIMAT) 4 GM INHALER IH SCH ×4 (02:58→21:18)
[2020-06-19 03:37] VITALS: BP 155/72
[2020-06-19] MEDS: KCL 20 MEQ TAB (K-DUR) PO SCH (06:04)
[2020-06-19 06:05] LABS: BASOPHILS % (AUTO) 0 % (0-10); EOSINOPHILS % (AUTO) 0 % (0-10); HEMATOCRIT 42 % (35-52); HEMOGLOBIN 13.7 g/dL (11.5-16.0); LYMPHOCYTES # (AUTO) 1.2 10^3/uL (1.0-4.0); LYMPHOCYTES % (AUTO) 11 % (12-44); MEAN CORPUSCULAR HEMOGLOBIN 29 pg (25-34); MEAN CORPUSCULAR HGB CONC 33 g/dL (32-36); MEAN CORPUSCULAR VOLUME 88 fL (80-99); MEAN PLATELET VOLUME 9.7 fL (9.0-12.2); MONOCYTES # (AUTO) 0.6 10^3/uL (0.0-1.0); MONOCYTES % (AUTO) 5 % (0-12); NEUTROPHILS # (AUTO) 9.5 10^3/uL (1.8-7.8); NEUTROPHILS % (AUTO) 83 % (42-75); PLATELET COUNT 200 10^3/uL (130-400); WHITE BLOOD COUNT 11.4 10^3/uL (4.3-11.0)
[2020-06-19 06:16] LABS: ALBUMIN 3.8 GM/DL (3.2-4.5)
[2020-06-19 06:17] LABS: CHLORIDE 105 MMOL/L (98-107); POTASSIUM 3.8 MMOL/L (3.6-5.0); SODIUM 142 MMOL/L (135-145)
[2020-06-19 06:18] LABS: CALCIUM 8.5 MG/DL (8.5-10.1)
[2020-06-19 06:19] LABS: GLUCOSE 117 MG/DL (70-105); TOTAL PROTEIN 6.2 GM/DL (6.4-8.2)
[2020-06-19 06:20] LABS: CARBON DIOXIDE 25 MMOL/L (21-32)
[2020-06-19 06:21] LABS: BILIRUBIN,TOTAL 0.6 MG/DL (0.1-1.0)
[2020-06-19 06:22] LABS: ALKALINE PHOSPHATASE 70 U/L (40-136)
[2020-06-19 06:23] LABS: CREATININE SERUM 0.76 MG/DL (0.60-1.30); GFR ESTIMATED > 60
[2020-06-19 06:24] LABS: BUN/CREATININE RATIO 30
[2020-06-19 06:26] LABS: ALANINE AMINOTRANSFERASE 16 U/L (0-55)
--- NOTE | 2020-06-19 07:13 | Progress Note - Hospitalist ---
Subjective HPI/CC On Admission Date Seen by Provider: Jun 19, 2020 Time Seen by Provider: 10:30 CC: Dypsnea HPI: This is a 75yoWF clinic patient of [facility] for the past 17 years who has a complicated medical history mainly from AF RVR requiring ablation and multiple anti-arrhythmic meds managed by Dr Ang and Dr Thompson along with asthma and ADOLPH on CPAP with O2 at night who presents to the ER with worsened dyspnea and start of a cough and was found to have COVID + swab. she started with a cough a few days after her son was found to have COVID. No fever reported. Patient is at high risk for complications given obesity, asthma, ADOLPH with O2 dependency and diabetes. Patient was counseled regarding convalescent plasma and Decadron and Rendesivir and she agreed with the plan. Subjective/Events-last exam Pt doing pretty well Giving one dose of Lasix 40mg IV in addition to her 40mg PO Elevated BP is still being monitored Two more days of Remdesivir then will likely DC home Wednesday or Wednesday Bowels are moving well Review of Systems General: Fatigue Pulmonary: Dyspnea Neurological: Weakness Objective Exam Vital Signs Vital Signs Date Time Temp Pulse Resp B/P (MAP) Pulse Ox O2 Delivery O2 Flow Rate FiO2 06/20/20 00:11 36.5 54 18 183/72 (109) 93 Nasal Cannula 2.00 06/16/20 15:41 21 Capillary Refill : Less Than 3 SecondsLess Than 3 Seconds General Appearance: No Apparent Distress, WD/WN, Chronically ill, Obese Respiratory: Chest Non Tender, Normal Breath Sounds, No Accessory Muscle Use, No Respiratory Distress, Decreased Breath Sounds Cardiovascular: Regular Rate, Rhythm, No Edema, No Gallop, No JVD, No Murmur, Normal Peripheral Pulses Neurologic/Psychiatric: Alert, Oriented x3, No Motor/Sensory Deficits, Normal Mood/Affect Results/Procedures Lab Laboratory Tests 06/19/20 05:55 Patient resulted labs reviewed. Assessment/Plan Assessment and Plan Assess & Plan/Chief Complaint Assessment: COVID-19 with dyspnea and cough Asthma ADOLPH on CPAP with O2 at night bled into machine DM HTN HLP AF s/p ablation DR Thompson UTI Urinary incontinence sees Urology [facility] Plan: Plasma Remdesivir Decadron O2 CPAP Dr Thompson counseled Home Eliquis 06/17/20: Check UA in/out cath Home meds COVID-19 treatment 06/18/20: Complete COVID-19 treatment Monitor pain 06/19/20: Lasix O2 COVID-19 treatment Diagnosis/Problems Diagnosis/Problems (1) COVID-19 Status: Acute (2) ADOLPH on CPAP Status: Chronic (3) Recurrent UTI Status: Chronic (4) Obesity Status: Chronic (5) Hyperlipidemia Status: Chronic (6) Depression Status: Chronic (7) Anxiety Status: Chronic (8) Insomnia Status: Chronic (9) PAF (paroxysmal atrial fibrillation) (10) Mild dehydration Status: Acute Clinical Quality Measures DVT/VTE Risk/Contraindication: Risk Factor Score Per Nursin RFS Level Per Nursing on Admit: 3=High ANAY DARNELL DO Jun 19, 2020 07:13
[2020-06-19 08:00] VITALS: BP 185/74
[2020-06-19] MEDS: lisINopril 20 MG (PRINIVIL) TABLET PO SCH (09:19)
[2020-06-19] MEDS: SERTRALINE 100 MG (ZOLOFT) TAB PO SCH (09:19)
[2020-06-19] MEDS: ESTRADIOL 1 MG TAB (ESTRACE) PO SCH (09:20)
[2020-06-19] MEDS: LORATADINE (CLARITIN) 10 MG TAB PO SCH ×2 (09:20→09:27)
[2020-06-19] MEDS: APIXABAN 5 MG (ELIQUIS) TABLET PO SCH ×2 (09:21→21:17)
[2020-06-19] MEDS: SENNA W/DOCUSATE (SENOKOT S) TABLET PO SCH ×2 (09:21→21:08)
[2020-06-19] MEDS: dexAMETHasone 6 MG TAB (DECADRON) PO SCH (09:21)
[2020-06-19] MEDS: meTOproloL SUCCINATE 50 MG (TOPROL XL) TAB PO SCH (09:21)
[2020-06-19] MEDS: FUROSEMIDE 40 MG (LASIX) TAB PO SCH (09:25)
[2020-06-19] MEDS: ADVAIR HFA 115/21 MCG INHALER 8 GM IH SCH ×2 (10:06→21:17)
[2020-06-19] MEDS ORDERED: FUROSEMIDE 40 MG/4 ML INJ (LASIX) IVP ONE (10:15)
[2020-06-19] MEDS: REMDESIVIR INJ 100 MG in NS (IVPB) 230 ML IV SCH (13:33)
[2020-06-19 16:35] VITALS: BP 136/66
[2020-06-19] MEDS: MONTELUKAST 10 MG (SINGULAIR) TAB PO SCH ×2 (21:08→21:17)
[2020-06-19] MEDS: doxAzosin 2 MG (CARDURA) TAB PO SCH (21:17)
[2020-06-19] MEDS: traZODone 50 MG (DESYREL) TAB PO SCH (21:17)
[2020-06-19 21:22] VITALS: BP 139/65
[2020-06-20 00:11] VITALS: BP 183/72
[2020-06-20] MEDS: ALBUTEROL/IPRATROP (COMBIVENT RESPIMAT) 4 GM INHALER IH SCH ×4 (02:30→19:15)
[2020-06-20 05:35] LABS: BASOPHILS % (AUTO) 0 % (0-10); EOSINOPHILS % (AUTO) 0 % (0-10); HEMATOCRIT 44 % (35-52); HEMOGLOBIN 14.1 g/dL (11.5-16.0); LYMPHOCYTES # (AUTO) 1.5 10^3/uL (1.0-4.0); LYMPHOCYTES % (AUTO) 12 % (12-44); MEAN CORPUSCULAR HEMOGLOBIN 29 pg (25-34); MEAN CORPUSCULAR HGB CONC 32 g/dL (32-36); MEAN CORPUSCULAR VOLUME 90 fL (80-99); MEAN PLATELET VOLUME 9.6 fL (9.0-12.2); MONOCYTES # (AUTO) 0.7 10^3/uL (0.0-1.0); MONOCYTES % (AUTO) 6 % (0-12); NEUTROPHILS # (AUTO) 9.7 10^3/uL (1.8-7.8); NEUTROPHILS % (AUTO) 80 % (42-75); PLATELET COUNT 212 10^3/uL (130-400); WHITE BLOOD COUNT 12.2 10^3/uL (4.3-11.0)
--- NOTE | 2020-06-20 06:06 | Progress Note - Hospitalist ---
Subjective HPI/CC On Admission Date Seen by Provider: Jun 20, 2020 Time Seen by Provider: 10:00 CC: Dypsnea HPI: This is a 75yoWF clinic patient of mine for the past 17 years who has a complicated medical history mainly from AF RVR requiring ablation and multiple anti-arrhythmic meds managed by Dr Ang and Dr Thompson along with asthma and ADOLPH on CPAP with O2 at night who presents to the ER with worsened dyspnea and start of a cough and was found to have COVID + swab. she started with a cough a few days after her son was found to have COVID. No fever reported. Patient is at high risk for complications given obesity, asthma, ADOLPH with O2 dependency and diabetes. Patient was counseled regarding convalescent plasma and Decadron and Rendesivir and she agreed with the plan. Subjective/Events-last exam Patient doing well No hypoxia noted Tolerating COVID treatment well No significant pain issues WBC 12.2 Review of Systems General: Fatigue, Malaise Objective Exam Vital Signs Vital Signs Date Time Temp Pulse Resp B/P (MAP) Pulse Ox O2 Delivery O2 Flow Rate FiO2 06/20/20 19:15 96 Nasal Cannula 2.00 06/20/20 16:22 36.5 53 20 130/63 (85) 06/16/20 15:41 21 Capillary Refill : Less Than 3 SecondsLess Than 3 Seconds General Appearance: No Apparent Distress, WD/WN, Chronically ill Respiratory: Chest Non Tender, Lungs Clear, Normal Breath Sounds, No Accessory Muscle Use, No Respiratory Distress Cardiovascular: Regular Rate, Rhythm, No Edema, No Gallop, No JVD, No Murmur, Normal Peripheral Pulses Neurologic/Psychiatric: Alert, Oriented x3, No Motor/Sensory Deficits, Normal Mood/Affect Results/Procedures Lab Laboratory Tests 06/20/20 04:47 Patient resulted labs reviewed. Assessment/Plan Assessment and Plan Assess & Plan/Chief Complaint Assessment: COVID-19 with dyspnea and cough Asthma ADOLPH on CPAP with O2 at night bled into machine DM HTN HLP AF s/p ablation DR Thompson UTI Urinary incontinence sees Urology [facility] Plan: Plasma Remdesivir Decadron O2 CPAP Dr Thompson counseled Home Eliquis 06/17/20: Check UA in/out cath Home meds COVID-19 treatment 06/18/20: Complete COVID-19 treatment Monitor pain 06/19/20: Lasix O2 COVID-19 treatment 06/20/20: Doing well Still high risk for decompensation Diagnosis/Problems Diagnosis/Problems (1) COVID-19 Status: Acute (2) ADOLPH on CPAP Status: Chronic (3) Recurrent UTI Status: Chronic (4) Obesity Status: Chronic (5) Hyperlipidemia Status: Chronic (6) Depression Status: Chronic (7) Anxiety Status: Chronic (8) Insomnia Status: Chronic (9) PAF (paroxysmal atrial fibrillation) (10) Mild dehydration Status: Acute Clinical Quality Measures DVT/VTE Risk/Contraindication: Risk Factor Score Per Nursin RFS Level Per Nursing on Admit: 3=High ANAY DARNELL DO Jun 20, 2020 06:06
[2020-06-20 06:21] LABS: ALBUMIN 3.8 GM/DL (3.2-4.5)
[2020-06-20 06:22] LABS: CHLORIDE 103 MMOL/L (98-107); POTASSIUM 3.6 MMOL/L (3.6-5.0); SODIUM 140 MMOL/L (135-145)
[2020-06-20 06:23] LABS: CALCIUM 8.3 MG/DL (8.5-10.1)
[2020-06-20 06:24] LABS: GLUCOSE 121 MG/DL (70-105); TOTAL PROTEIN 6.2 GM/DL (6.4-8.2)
[2020-06-20 06:25] LABS: CARBON DIOXIDE 24 MMOL/L (21-32)
[2020-06-20 06:26] LABS: BILIRUBIN,TOTAL 0.6 MG/DL (0.1-1.0)
[2020-06-20 06:27] LABS: ALKALINE PHOSPHATASE 70 U/L (40-136)
[2020-06-20 06:28] LABS: CREATININE SERUM 0.87 MG/DL (0.60-1.30); GFR ESTIMATED > 60
[2020-06-20 06:29] LABS: BUN/CREATININE RATIO 32
[2020-06-20 06:30] LABS: ALANINE AMINOTRANSFERASE 15 U/L (0-55)
[2020-06-20 06:41] VITALS: BP 191/86
[2020-06-20] MEDS: KCL 20 MEQ TAB (K-DUR) PO SCH (06:43)
[2020-06-20] MEDS: cloNIDine 0.1 MG (CATAPRES) TAB PO PRN (06:47)
[2020-06-20 08:00] VITALS: BP 149/68
[2020-06-20] MEDS: ADVAIR HFA 115/21 MCG INHALER 8 GM IH SCH ×2 (08:40→19:15)
[2020-06-20] MEDS: dexAMETHasone 6 MG TAB (DECADRON) PO SCH (08:47)
[2020-06-20] MEDS: lisINopril 20 MG (PRINIVIL) TABLET PO SCH (08:47)
[2020-06-20] MEDS: FUROSEMIDE 40 MG (LASIX) TAB PO SCH (08:47)
[2020-06-20] MEDS: ESTRADIOL 1 MG TAB (ESTRACE) PO SCH (08:47)
[2020-06-20] MEDS: APIXABAN 5 MG (ELIQUIS) TABLET PO SCH ×2 (08:48→19:46)
[2020-06-20] MEDS: LORATADINE (CLARITIN) 10 MG TAB PO SCH ×2 (08:48)
[2020-06-20] MEDS: SENNA W/DOCUSATE (SENOKOT S) TABLET PO SCH ×2 (08:48→19:46)
[2020-06-20] MEDS: SERTRALINE 100 MG (ZOLOFT) TAB PO SCH (08:48)
[2020-06-20] MEDS: meTOproloL SUCCINATE 50 MG (TOPROL XL) TAB PO SCH (08:48)
[2020-06-20] MEDS: REMDESIVIR INJ 100 MG in NS (IVPB) 230 ML IV SCH (13:20)
[2020-06-20 16:22] VITALS: BP 130/63
[2020-06-20] MEDS: MONTELUKAST 10 MG (SINGULAIR) TAB PO SCH ×2 (19:00→19:46)
[2020-06-20] MEDS: doxAzosin 2 MG (CARDURA) TAB PO SCH (19:46)
[2020-06-20] MEDS: traZODone 50 MG (DESYREL) TAB PO SCH (19:47)
[2020-06-20 23:53] VITALS: BP 172/72
[2020-06-21] MEDS: ALBUTEROL/IPRATROP (COMBIVENT RESPIMAT) 4 GM INHALER IH SCH ×2 (02:21→07:20)
[2020-06-21] MEDS: KCL 20 MEQ TAB (K-DUR) PO SCH (05:29)
[2020-06-21 05:48] LABS: BASOPHILS % (AUTO) 0 % (0-10); EOSINOPHILS % (AUTO) 0 % (0-10); HEMATOCRIT 45 % (35-52); HEMOGLOBIN 14.3 g/dL (11.5-16.0); LYMPHOCYTES # (AUTO) 1.5 10^3/uL (1.0-4.0); LYMPHOCYTES % (AUTO) 12 % (12-44); MEAN CORPUSCULAR HEMOGLOBIN 29 pg (25-34); MEAN CORPUSCULAR HGB CONC 32 g/dL (32-36); MEAN CORPUSCULAR VOLUME 91 fL (80-99); MEAN PLATELET VOLUME 9.6 fL (9.0-12.2); MONOCYTES # (AUTO) 0.8 10^3/uL (0.0-1.0); MONOCYTES % (AUTO) 6 % (0-12); NEUTROPHILS # (AUTO) 10.3 10^3/uL (1.8-7.8); NEUTROPHILS % (AUTO) 79 % (42-75); PLATELET COUNT 235 10^3/uL (130-400)
[2020-06-21 06:01] LABS: ALBUMIN 3.7 GM/DL (3.2-4.5); CHLORIDE 104 MMOL/L (98-107); POTASSIUM 3.8 MMOL/L (3.6-5.0)
[2020-06-21 06:02] LABS: SODIUM 140 MMOL/L (135-145)
[2020-06-21 06:03] LABS: CALCIUM 8.3 MG/DL (8.5-10.1)
[2020-06-21 06:04] LABS: GLUCOSE 116 MG/DL (70-105); TOTAL PROTEIN 6.2 GM/DL (6.4-8.2)
[2020-06-21 06:05] LABS: CARBON DIOXIDE 23 MMOL/L (21-32)
[2020-06-21 06:06] LABS: BILIRUBIN,TOTAL 0.7 MG/DL (0.1-1.0)
[2020-06-21 06:07] LABS: ALKALINE PHOSPHATASE 65 U/L (40-136)
[2020-06-21 06:08] LABS: CREATININE SERUM 0.83 MG/DL (0.60-1.30); GFR ESTIMATED > 60
[2020-06-21 06:09] LABS: BUN/CREATININE RATIO 31
[2020-06-21 06:10] LABS: ALANINE AMINOTRANSFERASE 15 U/L (0-55)
[2020-06-21] MEDS: ADVAIR HFA 115/21 MCG INHALER 8 GM IH SCH (07:19)
[2020-06-21 08:00] VITALS: BP 184/79
[2020-06-21] MEDS: SENNA W/DOCUSATE (SENOKOT S) TABLET PO SCH (08:24)
[2020-06-21] MEDS: cloNIDine 0.1 MG (CATAPRES) TAB PO PRN (08:24)
[2020-06-21] MEDS: APIXABAN 5 MG (ELIQUIS) TABLET PO SCH (08:25)
[2020-06-21] MEDS: FUROSEMIDE 40 MG (LASIX) TAB PO SCH (08:25)
[2020-06-21] MEDS: ESTRADIOL 1 MG TAB (ESTRACE) PO SCH (08:25)
[2020-06-21] MEDS: LORATADINE (CLARITIN) 10 MG TAB PO SCH ×2 (08:25)
[2020-06-21] MEDS: meTOproloL SUCCINATE 50 MG (TOPROL XL) TAB PO SCH (08:25)
[2020-06-21] MEDS: lisINopril 20 MG (PRINIVIL) TABLET PO SCH (08:25)
[2020-06-21] MEDS: dexAMETHasone 6 MG TAB (DECADRON) PO SCH (08:25)
[2020-06-21] MEDS: SERTRALINE 100 MG (ZOLOFT) TAB PO SCH (08:26)
--- NOTE | 2020-06-21 12:14 | NUR ---
DISCHARGE PLANNING: Patient is to discharge to home today. She has oxygen already and has arranged for transportation. I reminded her to have her ride bring her portable for transport. NO other needs identified.
[2020-06-21] MEDS ORDERED: ALPR.25T PO (12:24)
[2020-06-21] MEDS ORDERED: GUAI473L29 PO (12:24)
[2020-06-21] MEDS ORDERED: HYDR-3923 PO (12:24)
[2020-06-21] MEDS ORDERED: CLN.1T PO (12:24)
--- NOTE | 2020-06-21 12:26 | Discharge Summary ---
Discharge Summary Hospital Course Was the Problem List Reviewed?: Yes Problems/Dx: (1) COVID-19 Status: Acute (2) ADOLPH on CPAP Status: Chronic (3) Recurrent UTI Status: Chronic (4) Obesity Status: Chronic (5) Hyperlipidemia Status: Chronic (6) Depression Status: Chronic (7) Anxiety Status: Chronic (8) Insomnia Status: Chronic (9) PAF (paroxysmal atrial fibrillation) (10) Mild dehydration Status: Acute Hospital Course Date of Admission: Jun 16, 2020 at 12:43 Admission Diagnosis : Family Physician/Provider: Breanna Broderick DO Date of Discharge: 06/21/20 Discharge Diagnosis: COVID-19, hypoxia, ADOLPH, DM, CHF, AF, HTN Hospital Course: [facility]. Patient was admitted due to high risk for resp failure due to obesity, ADOLPH, DM and cardiac issues. Patient received plasma, Remdesivir and Decadron and restarted all home meds. Patient had slow recovery but ultimately returned back to baseline and was able to be DC without any new meds. Labs and Pending Lab Test: Laboratory Tests 06/20/20 15:44: Glucometer 191H 06/20/20 19:52: Glucometer 145H 06/21/20 05:30: White Blood Count 13.0H, Red Blood Count 4.97, Hemoglobin 14.3, Hematocrit 45, Mean Corpuscular Volume 91, Mean Corpuscular Hemoglobin 29, Mean Corpuscular Hemoglobin Concent 32, Red Cell Distribution Width 13.4, Platelet Count 235, Mean Platelet Volume 9.6, Immature Granulocyte % (Auto) 3, Neutrophils (%) (Auto) 79H, Lymphocytes (%) (Auto) 12, Monocytes (%) (Auto) 6, Eosinophils (%) (Auto) 0, Basophils (%) (Auto) 0, Neutrophils # (Auto) 10.3H, Lymphocytes # (Auto) 1.5, Monocytes # (Auto) 0.8, Eosinophils # (Auto) 0.0, Basophils # (Auto) 0.0, Immature Granulocyte # (Auto) 0.3H, Sodium Level 140, Potassium Level 3.8, Chloride Level 104, Carbon Dioxide Level 23, Anion Gap 13, Blood Urea Nitrogen 26H, Creatinine 0.83, Estimat Glomerular Filtration Rate > 60, BUN/Creatinine Ratio 31, Glucose Level 116H, Calcium Level 8.3L, Corrected Calcium 8.5, Total Bilirubin 0.7, Aspartate Amino Transf (AST/SGOT) 12, Alanine Aminotransferase (ALT/SGPT) 15, Alkaline Phosphatase 65, Total Protein 6.2L, Albumin 3.7 06/21/20 11:10: Glucometer 94 Microbiology 06/16/20 Influenza Types A,B Antigen (JONY) - Final, Complete Home Meds Active Guaifenesin AC Cough Syrup (Guaifenesin/Codeine Phosphate) 473 Ml Liquid 5 Ml PO Q4H PRN Hydralazine HCl 25 Mg Tablet 25 Mg PO TID Xanax Tablet (Alprazolam) 0.25 Mg Tab 0.25 Mg PO Q8H PRN Clonidine HCl 0.1 Mg Tablet 0.1 Mg PO Q4HR PRN Reported Tylenol Extra Strength (Acetaminophen) 500 Mg Tablet 500-1,000 Mg PO Q8H PRN Vitamin C (Ascorbate Calcium) 500 Mg Tablet 500 Mg PO DAILY Potassium Chloride 10 Meq Capsule.er 20 Meq PO DAILY TAKES 2 (10MEQ) CAPS Lisinopril 20 Mg Tablet 20 Mg PO DAILY Vitamin D3 (Cholecalciferol (Vitamin D3)) 125 Mcg/1 Ml Drops 125 Mcg PO DAILY Furosemide 40 Mg Tablet 40 Mg PO DAILY LAST FILLED 11-19-2019 #90/ DAY SUPPLY Loratadine 10 Mg Tablet 10 Mg PO DAILY Metoprolol Succinate 50 Mg Tab.er.24h 50 Mg PO DAILY Albuterol Sulfate 2.5 Mg/3 Ml Vial.neb 2.5 Mg NEB Q4H PRN Proair Hfa (Albuterol Sulfate) 1 Puff Puff 2 Puff IH Q4H PRN Diltiazem ER (Diltiazem HCl) 240 Mg Capsule.er 240 Mg PO DAILY Doxazosin Mesylate 2 Mg Tablet 2 Mg PO HS LAST FILLED 11-20-2019 #90/90 DAY SUPPLY Montelukast Sodium 10 Mg Tablet 10 Mg PO HS Atorvastatin Calcium 20 Mg Tablet 20 Mg PO HS LAST FILLED 10-26-2019 #90/ DAY SUPPLY Trazodone HCl 50 Mg Tablet 50 Mg PO HS Sertraline HCl 100 Mg Tablet 150 Mg PO DAILY TAKES 1 & 1/2 (100MG) TABLET Eliquis (Apixaban) 5 Mg Tablet 5 Mg PO BID Fluticasone Propionate 16 Gm [place].susp 2 Sprays NS HS PRN Advair 100-50 Diskus (Fluticasone/Salmeterol) 1 Each Blst.w.dev 1 Puff INH BID PRN Estradiol Tablet (Estradiol) 0.5 Mg Tablet 0.5 Mg PO DAILY Assessment/Pt Instructions Dr Broderick in 2 week Discharge Planning: <30 minutes discharge planning Discharge Physical Examination Vital Signs Vital Signs Date Time Temp Pulse Resp B/P (MAP) Pulse Ox O2 Delivery O2 Flow Rate FiO2 06/21/20 08:00 Nasal Cannula 2.00 06/21/20 08:00 36.3 51 18 184/79 (114) 93 06/16/20 15:41 21 General Appearance: No Apparent Distress, WD/WN, Chronically ill, Obese Respiratory: Chest Non Tender, Lungs Clear, Normal Breath Sounds, No Accessory Muscle Use, No Respiratory Distress Cardiovascular: Regular Rate, Rhythm, No Edema, No Gallop, No JVD, No Murmur, Normal Peripheral Pulses Neurologic/Psychiatric: Alert, Oriented x3, No Motor/Sensory Deficits, Normal Mood/Affect Allergies: Coded Allergies: sulfamethoxazole (Verified Allergy, Intermediate, rash, SOB, 10/23/18) trimethoprim (Verified Allergy, Intermediate, rash, SOB, 10/23/18) cephalexin (Verified Allergy, Unknown, 10/02/18) Discharge Summary Date of Admission Jun 16, 2020 at 12:43 Date of Discharge Discharge Date: Jun 21, 2020 Admission Diagnosis Assessment: COVID-19 with dyspnea and cough Asthma ADOLPH on CPAP with O2 at night bled into machine DM HTN HLP AF s/p ablation DR Thompson UTI Urinary incontinence sees Urology [facility] Plan: Plasma Remdesivir Decadron O2 CPAP Dr Thompson counseled Home Eliquis Discharge Diagnosis Assessment: COVID-19 with dyspnea and cough Asthma ADOLPH on CPAP with O2 at night bled into machine DM HTN HLP AF s/p ablation DR Thompson UTI Urinary incontinence sees Urology [facility] Plan: Plasma Remdesivir Decadron O2 CPAP Dr Thompson counseled Home Eliquis 06/17/20: Check UA in/out cath Home meds COVID-19 treatment 06/18/20: Complete COVID-19 treatment Monitor pain 06/19/20: Lasix O2 COVID-19 treatment 06/20/20: Doing well Still high risk for decompensation (1) COVID-19 Status: Acute (2) ADOLPH on CPAP Status: Chronic (3) Recurrent UTI Status: Chronic (4) Obesity Status: Chronic (5) Hyperlipidemia Status: Chronic (6) Depression Status: Chronic (7) Anxiety Status: Chronic (8) Insomnia Status: Chronic (9) PAF (paroxysmal atrial fibrillation) (10) Mild dehydration Status: Acute Clinical Quality Measures DVT/VTE Risk/Contraindication: Risk Factor Score Per Nursin RFS Level Per Nursing on Admit: 3=High BREANNA BRODERICK DO Jun 21, 2020 12:26
--- NOTE | 2020-06-23 23:08 | Physician Query Clarification ---
PQ-CHF Specificity Admission Date: Jun 16, 2020 at 12:43 Discharge Date: Jun 21, 2020 at 14:15 ANAY Daly DO The medical record reflects the following clinical scenario: History/Risk Factors: 75 y/o female patient with medical history mainly from atrial fibrillation RVR, asthma and ADOLPH admitted with dyspnea, cough and was found to have COVID 19. Hand P, 06/16: COVID with dyspnea and cough, asthma, atrial fibrillation. Discharge summary, 06/21: COVID-19, hypoxia, ADOLPH, DM, CHF, AF, HTN. Clinical Findings: normal EKG. Treatment: Lasix IV Question: Can you further specify the acuity &/or type of CHF per the clinical indicators above? Please document a response in the Progress Notes or Discharge Summary. 1. Acuity: Acute, Chronic or Acute on Chronic 2. Type: Systolic, Diastolic or Systolic & Diastolic 3. Unspecified: CHF cannot be further specified regarding type or acuity 4. Other, with explanation of clinical findings 5. Clinically undetermined, no explanation for clinical findings PHYSICIAN RESPONSE Acuity: Chronic Type: Diastolic Please remember a lack of response to the above will prompt a phone page by [facility] staff. In responding to this query, please exercise your independent professional judgm ent. The purpose of this communication is to more accurately reflect the complexity of your patients condition. The fact that a question is asked does not imply that any particular answer is desired or expected. Thank you for your timely response to this clarification. Requestors name: [ ] Phone # [ ] THIS PHYSICIAN QUERY FORM IS A PERMANENT PART OF THE MEDICAL RECORD JELANI FERNANDEZ Jun 23, 2020 23:08 ANAY DARNELL DO Jun 24, 2020 08:02
== END 2020-06-21 14:15 | disposition home or self-care (01) | DRG 178 ==
LOC: EDUNIT# 11:10 → ER 11:11 → 4TH 12:43
PROVIDERS: ADMIT Internal Medicine; ATTEND Internal Medicine
PROC: XW033E5 Introduction of Remdesivir Anti-infective into Peripheral Vein, Percutaneous Approach, New Technology Group 5 (ICD-10-PCS; principal; 2020-06-16)
PROC: XW13325 Transfusion of Convalescent Plasma (Nonautologous) into Peripheral Vein, Percutaneous Approach, New Technology Group 5 (ICD-10-PCS; 2020-06-16)
DX: U07.1 COVID-19 (principal); Z68.41 Body mass index [BMI] 40.0-44.9, adult; N39.0 Urinary tract infection, site not specified; J45.901 Unspecified asthma with (acute) exacerbation; I50.32 Chronic diastolic (congestive) heart failure; G47.33 Obstructive sleep apnea (adult) (pediatric); I48.0 Paroxysmal atrial fibrillation; E66.9 Obesity, unspecified; E78.00 Pure hypercholesterolemia, unspecified; K44.9 Diaphragmatic hernia without obstruction or gangrene; M19.91 Primary osteoarthritis, unspecified site; E11.9 Type 2 diabetes mellitus without complications; E86.0 Dehydration; F32.9 Major depressive disorder, single episode, unspecified; F41.9 Anxiety disorder, unspecified; R32 Unspecified urinary incontinence; F51.04 Psychophysiologic insomnia; Z96.641 Presence of right artificial hip joint; Z96.652 Presence of left artificial knee joint; I11.0 Hypertensive heart disease with heart failure; Z79.01 Long term (current) use of anticoagulants; Z99.81 Dependence on supplemental oxygen; Z88.1 Allergy status to other antibiotic agents; Z88.2 Allergy status to sulfonamides
CPT/HCPCS: 36415; 71045; 80053; 81000; 82805; 82962; 84145; 84484; 85025; 85610; 86141; 86900; 86901; 87635; 87804; 93005; 94640; 94660; 94760

== ENCOUNTER 2020-08-13 10:41 | Emergency (ER) | payer MEDICARE ==
[~2020-08-13] VITALS: Ht 170.2 cm; Wt 131.5 kg
[~2020-08-13 10:41] MED LIST changes: +ALPR.25T PO; +ASCO-262 PO; +CLN.1T PO; +GUAI473L29 PO; +HYDR-3923 PO; +LISI-552 PO; -MONT10TA26 PO; +MONT10TA97 PO; +POTA10CA43 PO; +[UNRECOGNIZED DRUG - CODE] PO
[2020-08-13 11:10] LABS: BILIRUBIN,URINE NEGATIVE (NEGATIVE); CLARITY,URINE CLEAR; COLOR,URINE DARK YELLOW; GLUCOSE, URINE (UA) NEGATIVE (NEGATIVE); KETONES,URINE NEGATIVE (NEGATIVE); LEUKOCYTE ESTERASE ,URINE NEGATIVE (NEGATIVE); NITRITE,URINE NEGATIVE (NEGATIVE); PROTEIN,URINE NEGATIVE (NEGATIVE)
[2020-08-13 11:16] LABS: BACTERIA,URINE TRACE /HPF; WBC,URINE RARE /HPF
--- NOTE | 2020-08-13 11:58 | ED Back Pain ---
General Chief Complaint: Back Problems Stated Complaint: LOWER BACK PAIN Nursing Triage Note: PT AMB TO TRIAGE WITH COMPLAINT OF MID TO LOW BACK PAIN THAT RADIATES INTO ABD. STATES HAS BEEN GOING ON FOR [address] DARNELL LAST WEEK AND PRESCRIBED MUSCLE RELAXERS. HAS BEEN HAVING ISSUES WITH INCONTINENCE. Nursing Sepsis Screen: No Definite Risk (BREANNA BETANCOURT MED STUDENT) History of Present Illness Date Seen by Provider: Aug 13, 2020 Time Seen by Provider: 11:15 Initial Comments This is a 75 year old female presenting to the Emergency Department via ambula tion for a chief complaint of back pain for 4 weeks. The pain is in the middle of the spine and along both sides that radiates to the abdomen. She also complains of nausea. She denies numbness or tingling in her abdomen or legs but feels it in her hands. Her pain is worsened by activity and movement and relieved when laying still. She has seen Dr. Darnell and was prescribed muscle r elaxers last week but that didn't improve her symptoms. PSHx: hysterectomy (1989), gallbaldder (1996), hiatal hernia (2004), foot surgery - bunions (2006), foot surgery - broken (2006), knee surgery (2008), bladder surgery, total knee replacement (2012), hip replacement (2012), hernia (2015), colonoscopy, cardiac catheterization, urethra stretching She travels to every 6 months for bladder botox injections for bladder leakage. PMHx: Asthma, carpel tunnel bilaterally, A. fib, cardioversion, linq implant Medications: kiltiazem, sertraline, estradiol, metoprolol, loratadine, vitamin D, eliquis, furosemide, lisinopril, potassium chloride, atorvastatin, trazodone, montulukast, doxazosin. Location: Lumbar Spine Timing/Duration: 4-5 Days (BREANNA BETANCOURT MED STUDENT) Initial Comments Patient additionally gives a history of bladder disease for which she receives routine Botox injections under anesthesia at [facility]. She missed the last round of injections due to Covid. Bladder scan was obtained and showed no residual. Patient denies any new bowel or bladder dysfunction, lower extremity weakness, or saddle paresthesia. She cannot take NSAIDs due to use of Eliquis. Muscle relaxers did not benefit her much. Steroids tend to accelerate hypertension. (WOODY CAMPO MD) Allergies and Home Medications Allergies Coded Allergies: sulfamethoxazole (Verified Allergy, Intermediate, rash, SOB, 10/23/18) trimethoprim (Verified Allergy, Intermediate, rash, SOB, 10/23/18) cephalexin (Verified Allergy, Unknown, 10/02/18) Home Medications ALPRAZolam 0.25 Mg Tab, 0.25 MG PO Q8H PRN for ANXIETY Prescribed by: ANAY DARNELL on 06/21/20 1225 Acetaminophen 500 Mg Tablet, 500-1,000 MG PO Q8H PRN for PAIN-MILD (1-4), (Reported) Albuterol Sulfate 1 Puff Puff, 2 PUFF IH Q4H PRN for SHORTNESS OF BREATH, (Reported) Albuterol Sulfate 2.5 Mg/3 Ml Vial.neb, 2.5 MG NEB Q4H PRN for SHORTNESS OF BREATH, (Reported) Apixaban 5 Mg Tablet, 5 MG PO BID, (Reported) Ascorbate Calcium 500 Mg Tablet, 500 MG PO DAILY, (Reported) Atorvastatin Calcium 20 Mg Tablet, 20 MG PO HS, (Reported) LAST FILLED 10-26-2019 #90/90 DAY SUPPLY Cholecalciferol (Vitamin D3) 125 Mcg/1 Ml Drops, 125 MCG PO DAILY, (Reported) Clonidine HCl 0.1 Mg Tablet, 0.1 MG PO Q4HR PRN for Systolic BP > 170 Prescribed by: ANAY DARNELL on 06/21/20 1224 Diltiazem HCl 240 Mg Capsule.er, 240 MG PO DAILY, (Reported) Doxazosin Mesylate 2 Mg Tablet, 2 MG PO HS, (Reported) LAST FILLED 11-20-2019 #90/90 DAY SUPPLY Estradiol 0.5 Mg Tablet, 0.5 MG PO DAILY, (Reported) Fluticasone Propionate 16 Gm [place].susp, 2 SPRAYS NS HS PRN for ALLERGIES, (Reported) Fluticasone/Salmeterol 1 Each Blst.w.dev, 1 PUFF INH BID PRN for SHORTNESS OF BREATH, (Reported) Furosemide 40 Mg Tablet, 40 MG PO DAILY, (Reported) LAST FILLED 11-19-2019 #90/90 DAY SUPPLY Guaifenesin/Codeine Phosphate 473 Ml Liquid, 5 ML PO Q4H PRN for COUGH Prescribed by: ANAY DARNELL on 06/21/20 1225 Hydralazine HCl 25 Mg Tablet, 25 MG PO TID Prescribed by: ANAY DARNELL on 06/21/20 1224 Lisinopril 20 Mg Tablet, 20 MG PO DAILY, (Reported) Loratadine 10 Mg Tablet, 10 MG PO DAILY, (Reported) Metoprolol Succinate 50 Mg Tab.er.24h, 50 MG PO DAILY, (Reported) Montelukast Sodium 10 Mg Tablet, 10 MG PO HS, (Reported) Oxycodone HCl/Acetaminophen 1 Each Tablet, 1-2 TAB PO Q6H PRN for PAIN- BREAKTHROUGH Use if hydrocodone is not sufficient. Prescribed by: WOODY BETANCOURT on 08/13/20 1228 Potassium Chloride 10 Meq Capsule.er, 20 MEQ PO DAILY, (Reported) TAKES 2 (10MEQ) CAPS Sertraline HCl 100 Mg Tablet, 150 MG PO DAILY, (Reported) TAKES 1 & 1/2 (100MG) TABLET Trazodone HCl 50 Mg Tablet, 50 MG PO HS, (Reported) Patient Home Medication List Home Medication List Reviewed: Yes (WOODY CAMPO MD) Review of Systems Constitutional: no symptoms reported EENTM: no symptoms reported Respiratory: no symptoms reported Cardiovascular: no symptoms reported Gastrointestinal: abdominal pain Genitourinary: no symptoms reported Musculoskeletal: back pain, other (radiates to abdomen) Skin: no symptoms reported Psychiatric/Neurological: Numbness (hands), Tingling (hands) (BREANNA BETANCOURT STUDENT) Past Dvugool-Drccjn-Lrvinh Hx Past Med/Social Hx: Reviewed Nursing Past Med/Soc Hx (WOODY CAMPO MD) Patient Social History Alcohol Use: Denies Use Number of Drinks Today: Alcohol Beverage of Choice: Wine Smoking Status: Never a Smoker Type Used: Cigarettes 2nd Hand Smoke Exposure: No Recent Infectious Disease Expo: No Recent Hopitalizations: No (BREANNA BETANCOURT) Immunizations Up To Date Tetanus Booster (TDap): Less than 5yrs Date of Pneumonia Vaccine: Apr 04, 2020 Date of Influenza Vaccine: Apr 16, 2020 (BREANNA BETANCOURT) Seasonal Allergies Seasonal Allergies: No (BREANNA BETANCOURT) Past Medical History Surgeries: Yes (HIATAL HERNIA, L TKR, R HIP REPLACEMENT, BLADDER x8, BILAT FOOT SX) Bladder Surgery, Gallbladder, Hysterectomy, Joint Replacement, Orthopedic Respiratory: Yes Asthma, Sleep Apnea Currently Using CPAP: Yes (WITH O2) Currently Using BIPAP: No Cardiac: Yes Atrial Fibrillation, High Cholesterol, Hypertension Neurological: No Reproductive Disorders: 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 Sexually Transmitted Disease: No Genitourinary: Yes (BOTOX FOR URINARY INCONT Q 6 MONTHS) Bladder Infection Gastrointestinal: Yes Hiatal Hernia Musculoskeletal: Yes Arthritis Endocrine: No Diabetes, Non-Insulin dep Cataract Loss of Vision: Bilateral Hearing Impairment: Denies Cancer: No Psychosocial: Yes Depression Integumentary: No Blood Disorders: No Adverse Reaction/Blood Tranf: No (BREANNA BETANCOURT MED STUDENT) Family Medical History Arthritis 19 MOTHER Cataracts 19 FATHER 19 MOTHER Colon cancer 19 FATHER Deafness or hearing loss 19 FATHER Dementia 19 FATHER FH: macular degeneration 19 MOTHER FH: prostate cancer 19 FATHER FH: skin cancer 19 FATHER Gout 19 MOTHER Hypertension 19 FATHER 19 MOTHER Myocardial infarction 19 FATHER 19 MOTHER Physical Exam Vital Signs Vital Signs - First Documented 08/13/20 10:48 Temp 37.0 Pulse 66 Resp 20 B/P (MAP) 178/95 (122) Pulse Ox 96 O2 Delivery Room Air (WOODY CAMPO MD) Vital Signs Capillary Refill : Less Than 3 Seconds (BREANNA BETANCOURT MED STUDENT) Height, Weight, BMI Height: 5'7.00" Weight: 286lbs. 0.4oz. 124.783336tr; 45.00 BMI Method:Stated (BREANNA BETANCOURT MED STUDENT) General Appearance: WD/WN, Mild Distress, Obese HEENT: PERRL/EOMI, Normal ENT Inspection Neck: Normal Inspection Cardiovascular: Regular Rate, Rhythm, No Edema, No Murmur Respiratory: Lungs Clear, Normal Breath Sounds, No Accessory Muscle Use Gastrointestinal: Normal Bowel Sounds, Non Tender, Soft Back: Normal Inspection, Other (No point tenderness along the thoracic or lumbar spine) Extremity: Normal Inspection, No Pedal Edema Neurologic/Psychiatric: Alert, Oriented x3, No Motor/Sensory Deficits, Normal Mood/Affect, seat coverer II-XII Norm as Tested Skin: Normal Color, Warm/Dry (WOODY CAMPO MD) Progress/Results/Core Measures Results/Orders Lab Results Laboratory Tests Test 08/13/20 11:00 Range/Units Urine Color DARK YELLOW Urine Clarity CLEAR Urine pH 6.0 5-9 Urine Specific [place] 1.025 H 1.016-1.022 Urine Protein NEGATIVE NEGATIVE Urine Glucose (UA) NEGATIVE NEGATIVE Urine Ketones NEGATIVE NEGATIVE Urine Nitrite NEGATIVE NEGATIVE Urine Bilirubin NEGATIVE NEGATIVE Urine Urobilinogen 0.2 < = 1.0 MG/DL Urine Leukocyte Esterase NEGATIVE NEGATIVE Urine RBC (Auto) NEGATIVE NEGATIVE Urine RBC NONE /HPF Urine WBC RARE /HPF Urine Squamous Epithelial Cells 5-10 /HPF Urine Crystals NONE /LPF Urine Bacteria TRACE /HPF Urine Casts PRESENT /LPF Urine Hyaline Casts 5-10 H /LPF Urine Mucus NEGATIVE /LPF Urine Culture Indicated NO (WOODY CAMPO MD) My Orders Orders - WOODY CAMPO MD Ua Culture If Indicated (08/13/20 10:45) Bladder Scan (08/13/20 11:13) Oxycodone/Apap 5/325mg Tablet (Percocet (08/13/20 12:15) (WOODY CAMPO MD) Medications Given in ED Current Medications Medications Dose Ordered Sig/Lisa Route Start Time Stop Time Status Last Admin Dose Admin Oxycodone/ Acetaminophen 1 tab ONCE ONCE PO 08/13/20 12:15 08/13/20 12:16 DC 08/13/20 12:48 1 TAB (WOODY CAMPO MD) Vital Signs/I&O 08/13/20 08/13/20 10:48 12:53 Temp 37.0 Pulse 66 86 Resp 20 16 B/P (MAP) 178/95 (122) 166/86 Pulse Ox 96 96 O2 Delivery Room Air Room Air (WOODY CAMPO MD) Blood Pressure Mean: 122 Progress Progress Note : Progress Note Urinalysis was relatively unremarkable. There is no residual urine on bladder scan. We discussed treatment options. Patient ultimately will probably need some sort of nonpharmacologic therapy such as physical therapy. MRI may be necessary for further evaluation of her pain. She was advised to follow-up in the outpatient setting. We selected Percocet as the treatment for her pain at this time given her allergy profile and the relative efficacies of medications discussed.Patient's intermittent upper abdominal pain that wraps around bilaterally could be radicular pain. She describes her pain as being in the lower thoracic or upper lumbar region which could correlate with abdominal radicular pain. If she obtains imaging such as MRI, I advised that she obtain thoracic and lumbar spine images. (WOODY CAMPO MD) Departure Impression Primary Impression: Back pain Qualified Codes: M54.9 - Dorsalgia, unspecified Disposition: 01 HOME, SELF-CARE Condition: Improved Departure-Patient Inst. Decision time for Depature: 12:00 (WOODY CAMPO MD) Referrals: ANAY DARNELL DO (PCP/Family) Primary Care Physician Patient Instructions: Low Back Pain (DC) Add. Discharge Instructions: You may continue light activity as tolerated but avoid strenuous activity, excessive bending, heavy lifting, etc. until pain resolves. For mild pain use Tylenol alone. For moderate pain use hydrocodone. For more severe pain use Percocet as prescribed. Do not exceed 4000 mg of acetaminophen in 1 day. Consider using a stool softener such as Colace while you are on opioid medications. You may use your muscle relaxers if helpful. Follow-up with Dr. Darnell to discuss further treatment options which might include physical therapy. Also discussed further work-up which might include MRI of the back. I suggest that you include MRI of both the thoracic and lumbar spine due to the location of your pain and symptoms that wraparound to your abdomen. Return to the emergency room if you have worsening symptoms, especially if you develop weakness of your legs, numbness in your groin, or decreased control of bowel or bladder function. Call with questions or concerns. All discharge instructions reviewed with patient and/or family. Voiced understanding. Scripts Oxycodone HCl/Acetaminophen (Percocet 5-325 mg Tablet) 1 Each Tablet 1-2 TAB PO Q6H PRN for PAIN-BREAKTHROUGH MDD 6 TABS, #20 TAB Use if hydrocodone is not sufficient. Prov: WOODY CAMPO MD 08/13/20 Medical Student Attestation and Attending Note: I have personally interviewed and examined this patient along with Breanna reinoso, MS 3. I have reviewed student documentation including history, physical, and assessments. I agree with the documentation except where otherwise noted. (WOODY CAMPO MD) Copy Copies To 1: ANAY DARNELL ELIZABETH X MED STUDENT Aug 13, 2020 11:58 WOODY CAMPO MD Aug 13, 2020 12:28
[2020-08-13] MEDS ORDERED: oxyCODONE/APAP 5/325MG (PERCOCET 5) TABLET PO ONE (12:15)
[2020-08-13] MEDS ORDERED: OXYC1TAB87 PO (12:28)
[2020-08-13 12:53] VITALS: BP 166/86
== END 2020-08-13 12:53 | disposition home or self-care (01) ==
LOC: EDUNIT# 10:41 → ER 10:43
DX: M54.5 Low back pain (principal); I48.91 Unspecified atrial fibrillation; E66.9 Obesity, unspecified; F32.9 Major depressive disorder, single episode, unspecified; E78.00 Pure hypercholesterolemia, unspecified; I10 Essential (primary) hypertension; J45.909 Unspecified asthma, uncomplicated; Z68.42 Body mass index [BMI] 45.0-49.9, adult; Z88.2 Allergy status to sulfonamides; Z88.1 Allergy status to other antibiotic agents; Z82.61 Family history of arthritis; Z80.0 Family history of malignant neoplasm of digestive organs; Z82.49 Family history of ischemic heart disease and other diseases of the circulatory system; Z80.8 Family history of malignant neoplasm of other organs or systems; Z80.42 Family history of malignant neoplasm of prostate; Z79.01 Long term (current) use of anticoagulants
CPT/HCPCS: 81000; 99283

== ENCOUNTER → 2020-08-15 | Outpatient (CLI) | payer MEDICARE ==
[~2020-08-15] MED LIST changes: +CATHETER FLUSH 10 ML SYR IV PRN; +HOLD METFORMIN - RECEIVED CONTRAST 20 ML VIAL IV SCH; +IOHEXOL 350 MG/ML 100 ML (OMNIPAQUE 350) VIAL IV ONE; +NS 100 ML (IVPB) BAG IV ONE; +OXYC1TAB87 PO
[2020-08-15 12:53] LABS: BUN/CREATININE RATIO 17; CREATININE SERUM 0.83 MG/DL (0.60-1.30); GFR ESTIMATED > 60
--- NOTE | 2020-08-15 15:22 | Diagnostic Imaging Report ---
PROCEDURE: CT chest with contrast only. TECHNIQUE: Multiple contiguous axial images were obtained through the chest after administration of intravenous contrast. Auto Exposure Controls were utilized during the CT exam to meet ALARA standards for radiation dose reduction. INDICATION: COVID. COMPARISON: 05/03/2019 FINDINGS: The lungs are clear. No acute or chronic pulmonary parenchymal pathology found. There is resolution of previous tiny pleural effusions. No lung mass. No thoracic adenopathy. The aorta is patent and nonaneurysmal. No lung mass or lymphadenopathy. No acute chest wall pathology. The visualized upper abdomen is unremarkable. IMPRESSION: Normal CT chest. Dictated by: Dictated on workstation # [id number]
== END ==
LOC: RAD 12:19
PROVIDERS: ATTEND Nurse Practitioner Family
DX: J18.9 Pneumonia, unspecified organism (principal)
CPT/HCPCS: 36415; 71260; 82565; 84520

== ENCOUNTER → 2020-08-16 | Outpatient (CLI) | payer MEDICARE ==
[~2020-08-16] MED LIST changes: -CATHETER FLUSH 10 ML SYR IV PRN; -HOLD METFORMIN - RECEIVED CONTRAST 20 ML VIAL IV SCH; -IOHEXOL 350 MG/ML 100 ML (OMNIPAQUE 350) VIAL IV ONE; -NS 100 ML (IVPB) BAG IV ONE
--- NOTE | 2020-08-16 12:18 | Diagnostic Imaging Report ---
INDICATION: Back pain. COMPARISON: None FINDINGS: Frontal and lateral radiograph views of the lumbar spine were obtained. Evaluation static alignment shows slight grade 1 anterolisthesis at L4-L5. There is no evidence of jumped facets. Note is also made of mild levoscoliotic deformity epicentered at the L2 level. Vertebral body heights are maintained. There is no acute fracture. There are mild multilevel degenerative changes consistent with intervertebral disc height loss and multilevel facet arthropathy. Included small bowel loops are nondistended. IMPRESSION: 1. No acute fracture dislocation lumbar spine. 2. Mild multilevel degenerative changes. Dictated by: Dictated on workstation # [id number]
--- NOTE | 2020-08-16 12:33 | Diagnostic Imaging Report ---
INDICATION: Back pain. COMPARISON: None FINDINGS: Evaluation of static alignment shows slight dextroscoliotic deformity of the thoracic spine epicentered at the T8 level. AP static alignment is maintained. Upper thoracic spine is obscured by overlying osseous structures, but visualized vertebral body heights are maintained. There is no acute fracture. There are moderate multilevel degenerative changes consistent with intervertebral disc height loss with endplate osteophyte formations. Included portions of the lungs are clear. IMPRESSION: 1. Moderate degenerative changes of the thoracic spine, but no acute fracture or dislocation. Dictated by: Dictated on workstation # [id number]
== END ==
LOC: RAD 11:33
PROVIDERS: ATTEND Internal Medicine
DX: M47.814 Spondylosis without myelopathy or radiculopathy, thoracic region (principal); M47.816 Spondylosis without myelopathy or radiculopathy, lumbar region
CPT/HCPCS: 72072; 72100

== ENCOUNTER → 2020-09-13 | Outpatient (CLI) | payer MEDICARE ==
[~2020-09-13] MED LIST changes: -LISI-552 PO; -LISI10TA2 PO; +LISI10TA25 PO; +LISI20TA26 PO; +MONT10TA32 PO; -MONT10TA97 PO; +SERT-414 PO; -SERT100T8 PO
== END ==
LOC: RAD 10:36
PROVIDERS: ATTEND Physical Medicine & Rehabilitation
DX: M54.6 Pain in thoracic spine (principal)

== ENCOUNTER 2020-12-17 10:00 | Outpatient (RCR) | payer MEDICARE ==
[2020-11-07 13:52] VITALS: BP 132/60
[~2020-12-17] VITALS: Ht 170.2 cm; Wt 132.2 kg
== END 2021-02-05 | disposition home or self-care (01) ==
LOC: PULM 10:00
PROVIDERS: ATTEND Internal Medicine
DX: J44.9 Chronic obstructive pulmonary disease, unspecified (principal)
CPT/HCPCS: G0463 ×2; 99211

== ENCOUNTER 2021-01-17 08:38 | Outpatient (RCR) | payer MEDICARE | END 2021-01-18 | disposition home or self-care (01) | LOC: CR3 08:38 | PROVIDERS: ATTEND Internal Medicine | DX: Z29.8 Encounter for other specified prophylactic measures (principal) ==

== ENCOUNTER → 2021-02-19 | Outpatient (RCR) | payer MEDICARE | END | disposition home or self-care (01) | LOC: CR3 01-20 09:41 | PROVIDERS: ATTEND Internal Medicine | DX: Z29.8 Encounter for other specified prophylactic measures (principal) ==

== ENCOUNTER 2021-03-21 08:02 | Outpatient (RCR) | payer MEDICARE | END 2021-03-23 | LOC: CR3 08:02 | PROVIDERS: ATTEND Internal Medicine | DX: Z29.8 Encounter for other specified prophylactic measures (principal) ==

== ENCOUNTER → 2021-04-08 | Outpatient (CLI) | payer MEDICARE ==
[~2021-04-08] MED LIST changes: +GFCD10B PO; -GUAI473L29 PO; +REGADENOSON 0.4 MG/5 ML SYR (LEXISCAN) IV ONE
[2021-04-08] MEDS: CATHETER FLUSH 10 ML SYR IV PRN ×2 (08:06→09:19)
[2021-04-08 09:17] VITALS: BP 201/98
--- NOTE | 2021-04-08 12:44 | STRESS TEST ---
DATE OF SERVICE: 04/08/2021 RESTING AND POST REGADENOSON TECHNETIUM-99M TETROFOSMIN SPECT CT IMAGING ORDERING PHYSICIAN: Emily Okeefe APRN PRIMARY PHYSICIAN: Dr. Broderick. CLINICAL DIAGNOSIS: Chest discomfort. Baseline images were carried out after injection of 10.07 mCi of technetium-99m Tetrofosmin. This was followed by 0.4 mg regadenoson and 31.8 mCi of technetium-99m Tetrofosmin for stress imaging. The electrocardiogram showed sinus rhythm at baseline. There is considerable baseline artifact and there is right bundle branch block throughout the study. The patient tolerated the procedure well. Review of images at rest and following stress does not indicate any distinct perfusion defects consistent with significant myocardial ischemia or infarction. Gated images show normal regional wall motion and well preserved global left ventricular systolic function. Left ventricular ejection fraction is calculated to be 70%. Left ventricular end diastolic volume is 108 mL. TID is absent (1.03). CONCLUSIONS: 1. Mild cardiomegaly. 2. No evidence of significant myocardial ischemia or infarction on this study. 3. Normal regional wall motion. 4. Normal global left ventricular systolic function with a calculated ejection fraction of 70%. Job ID: [id number] DocumentID: [id number] Dictated Date: 04/08/2021 12:01:40 Tea Bag Packer Date: 04/08/2021 12:44:08 Dictated By: QAMAR GONZALEZ MD, MA, FACP, FACC,
== END ==
LOC: CARD 07:42
PROVIDERS: ATTEND Nurse Practitioner Family
DX: R07.89 Other chest pain (principal); I51.7 Cardiomegaly
CPT/HCPCS: 78452; 93017; A9502

== ENCOUNTER → 2021-04-09 | Outpatient (CLI) | payer MEDICARE ==
[~2021-04-09] MED LIST changes: -REGADENOSON 0.4 MG/5 ML SYR (LEXISCAN) IV ONE
== END ==
LOC: CARD 15:00
PROVIDERS: ATTEND Nurse Practitioner Family
DX: I34.0 Nonrheumatic mitral (valve) insufficiency (principal); I51.7 Cardiomegaly
CPT/HCPCS: 93306

== ENCOUNTER 2021-04-11 08:26 | Outpatient (RCR) | payer MEDICARE ==
[~2021-04-11 08:26] MED LIST changes: -FLEC150T15 PO; +FLEC150T2 PO
[2021-04-17] MEDS ORDERED: BACL10TA PO (17:00)
[2021-04-17] MEDS ORDERED: DOXY100C5 PO (17:00)
[2021-04-17] MEDS ORDERED: DOCU100C37 PO (17:00)
[2021-04-17] MEDS ORDERED: OXYC1TAB11 PO (17:00)
[2021-04-17] MEDS ORDERED: ALPR0.254 PO (17:00)
[2021-04-17] MEDS ORDERED: TIZA4TAB4 PO (17:00)
[2021-04-21] MEDS ORDERED: LISI20TA26 PO (09:03)
[2021-04-21] MEDS ORDERED: HYDR-3923 PO (09:03)
[2021-04-21] MEDS ORDERED: PRED10TA22 PO (09:03)
[2021-04-21] MEDS ORDERED: AMLO10TA4 PO (09:20)
[2021-04-21] MEDS ORDERED: IPRA3AMP31 INH (09:29)
== END 2021-04-23 | disposition home or self-care (01) ==
LOC: CR3 08:26
PROVIDERS: ATTEND Internal Medicine
DX: Z29.8 Encounter for other specified prophylactic measures (principal)

== ENCOUNTER 2021-04-17 15:17 | Inpatient (IN) | payer MEDICARE ==
[~2021-04-17] VITALS: Ht 170.2 cm; Wt 126.4 kg
[2021-04-17] MEDS ORDERED: LOPERAMIDE 2 MG (IMODIUM) TABLET PO PRN (15:45)
[2021-04-17] MEDS ORDERED: ALPRAZolam 0.25 MG (XANAX) TAB PO PRN (15:45)
[2021-04-17] MEDS ORDERED: ONDANSETRON 4 MG (ZOFRAN) ORAL DISSOLVE TAB PO PRN (15:45)
[2021-04-17] MEDS ORDERED: DOCUSATE SODIUM 100 MG (COLACE) CAP PO PRN ×2 (15:45→21:00)
[2021-04-17] MEDS ORDERED: guaiFENesin/CODEINE (ROBITUSSIN AC) 10ML UDC PO PRN (15:45)
[2021-04-17] MEDS ORDERED: HYDROcodone/APAP 5 MG/325 MG (LORTAB) TAB PO PRN (15:45)
[2021-04-17] MEDS ORDERED: diphenhydrAMINE 25 MG TAB (BENADRYL) PO PRN (15:45)
[2021-04-17] MEDS ORDERED: ONDANSETRON 4 MG/2 ML (SDV) Z0FRAN IVP PRN (15:45)
[2021-04-17] MEDS ORDERED: MELATONIN 3 MG TABLET PO PRN (15:45)
[2021-04-17] MEDS ORDERED: CALCIUM CARBONATE 500 MG (TUMS) TAB.CHEW PO PRN (15:45)
[2021-04-17] MEDS ORDERED: ACETAMINOPHEN 325 MG TABLET PO PRN (16:45)
[2021-04-17] MEDS ORDERED: DOXY100C5 PO (17:00)
[2021-04-17] MEDS ORDERED: TIZA4TAB4 PO (17:00)
[2021-04-17] MEDS ORDERED: DOCU100C37 PO (17:00)
[2021-04-17] MEDS ORDERED: ALPR0.254 PO (17:00)
[2021-04-17] MEDS ORDERED: OXYC1TAB11 PO (17:00)
[2021-04-17] MEDS ORDERED: BACL10TA PO (17:00)
[2021-04-17] MEDS: DOXYCYCLINE 100 MG (VIBRAMYCIN) TABLET PO SCH (17:11)
[2021-04-17] MEDS: methylPREDNISolone 125 MG (Solu-MEDROL) VIAL IVP SCH (17:11)
[2021-04-17 17:46] VITALS: BP 188/84
[2021-04-17 17:52] LABS: BASOPHILS % (AUTO) 0 % (0-10); EOSINOPHILS % (AUTO) 0 % (0-10); HEMATOCRIT 43 % (35-52); HEMOGLOBIN 14.2 g/dL (11.5-16.0); LYMPHOCYTES # (AUTO) 1.1 10^3/uL (1.0-4.0); LYMPHOCYTES % (AUTO) 10 % (12-44); MEAN CORPUSCULAR HEMOGLOBIN 29 pg (25-34); MEAN CORPUSCULAR HGB CONC 33 g/dL (32-36); MEAN CORPUSCULAR VOLUME 88 fL (80-99); MEAN PLATELET VOLUME 9.7 fL (9.0-12.2); MONOCYTES # (AUTO) 0.6 10^3/uL (0.0-1.0); MONOCYTES % (AUTO) 5 % (0-12); NEUTROPHILS # (AUTO) 9.6 10^3/uL (1.8-7.8); NEUTROPHILS % (AUTO) 83 % (42-75); PLATELET COUNT 245 10^3/uL (130-400); WHITE BLOOD COUNT 11.5 10^3/uL (4.3-11.0)
[2021-04-17 18:05] LABS: ALBUMIN 4.1 GM/DL (3.2-4.5); POTASSIUM 4.1 MMOL/L (3.6-5.0)
[2021-04-17 18:06] LABS: CALCIUM 9.4 MG/DL (8.5-10.1)
[2021-04-17 18:07] LABS: TOTAL PROTEIN 6.5 GM/DL (6.4-8.2)
[2021-04-17 18:09] LABS: BILIRUBIN,TOTAL 0.7 MG/DL (0.1-1.0)
[2021-04-17 18:11] LABS: CREATININE SERUM 0.81 MG/DL (0.60-1.30)
[2021-04-17] MEDS: CEFEPIME INJECTION 1,000 MG in WATER (STERILE) FOR INJECTION 10 ML IV SCH (18:22)
--- NOTE | 2021-04-17 18:29 | Diagnostic Imaging Report ---
HISTORY: Cough COMPARISON: 06/16/2020 TECHNIQUE: Frontal view of the chest FINDINGS: Lung volumes are normal. No focal consolidation is seen. There is no pleural effusion or pneumothorax. The cardiac silhouette is mildly large but stable since the prior study. cardiac monitor device is noted. IMPRESSION: 1. Stable cardiomegaly. No acute pulmonary abnormality is seen. Dictated by: Dictated on workstation # [id number]
[2021-04-17 18:59] LABS: ABG BASE EXCESS 1.8 MMOL/L (-2.5-2.5); ABG OXYGEN SATURATION 95 % (94-100); ABG PCO2 39 MMHG (35-45); ABG PH 7.43 (7.37-7.43); ABG PO2 67 MMHG (79-93); ABG TCO2 27.2 MMOL/L (21.0-31.0); ALLENS TEST YES-POS; INSPIRED O2 ROOM AIR; PATIENT TEMP 35.9; VENTILATOR NO
[2021-04-17 20:00] VITALS: BP 176/93
[2021-04-17] MEDS ORDERED: FUROSEMIDE 40 MG (LASIX) TAB PO PRN (21:00)
[2021-04-17] MEDS ORDERED: FLUTICASONE NASAL SPRAY (FLONASE) 16 GM BTL NS PRN (21:00)
[2021-04-17] MEDS ORDERED: oxyCODONE/APAP 5/325MG (PERCOCET 5) TABLET PO PRN (21:00)
[2021-04-17] MEDS ORDERED: BACLOFEN 10 MG (LIORESAL) TAB PO PRN (21:00)
[2021-04-17] MEDS ORDERED: RT-ALBUTEROL SULF 2.5 MG/3 ML PRE-MIX VIAL IH PRN (21:00)
[2021-04-17] MEDS: SENNA W/DOCUSATE (SENOKOT S) TABLET PO SCH (21:04)
[2021-04-17] MEDS: RT-ALBUTEROL SULF 2.5 MG/3 ML PRE-MIX VIAL INH SCH (21:39)
[2021-04-17] MEDS ORDERED: KCL 20 MEQ TAB (K-DUR) PO PRN (21:45)
[2021-04-17] MEDS: MONTELUKAST 10 MG (SINGULAIR) TAB PO SCH (22:03)
[2021-04-17] MEDS: APIXABAN 5 MG (ELIQUIS) TABLET PO SCH (22:03)
[2021-04-17] MEDS: doxAzosin 2 MG (CARDURA) TAB PO SCH (22:03)
[2021-04-17] MEDS: traZODone 50 MG (DESYREL) TAB PO SCH (22:03)
[2021-04-17 22:10] VITALS: BP 168/80
[2021-04-17] MEDS: ALPRAZolam 0.25 MG (XANAX) TAB PO PRN (22:11)
[2021-04-17 23:30] VITALS: BP 165/81
[2021-04-18] VITALS (9 sets, daily range): BP systolic 144–196; BP diastolic 70–98
[2021-04-18] MEDS: methylPREDNISolone 125 MG (Solu-MEDROL) VIAL IVP SCH ×4 (00:28→18:43)
[2021-04-18] MEDS: CEFEPIME INJECTION 1,000 MG in WATER (STERILE) FOR INJECTION 10 ML IV SCH ×2 (00:29→06:10)
[2021-04-18] MEDS: cloNIDine 0.1 MG (CATAPRES) TAB PO PRN ×3 (03:51→15:57)
[2021-04-18 06:11] LABS: BASOPHILS % (AUTO) 0 % (0-10); EOSINOPHILS % (AUTO) 0 % (0-10); HEMATOCRIT 40 % (35-52); HEMOGLOBIN 13.4 g/dL (11.5-16.0); LYMPHOCYTES # (AUTO) 0.6 10^3/uL (1.0-4.0); LYMPHOCYTES % (AUTO) 7 % (12-44); MEAN CORPUSCULAR HEMOGLOBIN 29 pg (25-34); MEAN CORPUSCULAR HGB CONC 33 g/dL (32-36); MEAN CORPUSCULAR VOLUME 88 fL (80-99); MEAN PLATELET VOLUME 9.6 fL (9.0-12.2); MONOCYTES # (AUTO) 0.1 10^3/uL (0.0-1.0); MONOCYTES % (AUTO) 1 % (0-12); NEUTROPHILS # (AUTO) 8.7 10^3/uL (1.8-7.8); NEUTROPHILS % (AUTO) 91 % (42-75); PLATELET COUNT 234 10^3/uL (130-400); WHITE BLOOD COUNT 9.6 10^3/uL (4.3-11.0)
[2021-04-18 06:22] LABS: ALBUMIN 3.8 GM/DL (3.2-4.5); POTASSIUM 4.1 MMOL/L (3.6-5.0)
[2021-04-18 06:23] LABS: CALCIUM 9.3 MG/DL (8.5-10.1)
[2021-04-18 06:24] LABS: TOTAL PROTEIN 6.2 GM/DL (6.4-8.2)
[2021-04-18 06:26] LABS: BILIRUBIN,TOTAL 0.7 MG/DL (0.1-1.0)
[2021-04-18 06:28] LABS: CREATININE SERUM 0.84 MG/DL (0.60-1.30)
[2021-04-18 06:42] LABS: LYMPHOCYTES % (MANUAL) 9 %; MONOCYTES % (MANUAL) 1 %; NEUTROPHILS % (MANUAL) 90 %; RBC MORPH NORMAL
[2021-04-18] MEDS: DOXYCYCLINE 100 MG (VIBRAMYCIN) TABLET PO SCH (07:03)
[2021-04-18] MEDS: SENNA W/DOCUSATE (SENOKOT S) TABLET PO SCH ×2 (08:40→20:44)
[2021-04-18] MEDS: VITAMIN D3 125 MCG (5,000 UNITS) CAPSULE PO SCH (08:41)
[2021-04-18] MEDS: LORATADINE (CLARITIN) 10 MG TAB PO SCH (08:41)
[2021-04-18] MEDS: APIXABAN 5 MG (ELIQUIS) TABLET PO SCH ×2 (08:41→20:43)
[2021-04-18] MEDS: SERTRALINE 100 MG (ZOLOFT) TAB PO SCH (08:41)
[2021-04-18] MEDS: ESTRADIOL 1 MG TAB (ESTRACE) PO SCH (08:41)
[2021-04-18] MEDS: lisINopril 20 MG (PRINIVIL) TABLET PO SCH (08:42)
[2021-04-18] MEDS: meTOproloL SUCCINATE 50 MG (TOPROL XL) TAB PO SCH (09:50)
[2021-04-18] MEDS: RT--FLUTICASONE/SALMETEROL 113-14 (AIRDUO RespiCLICK) IH SCH ×2 (09:53→20:53)
[2021-04-18] MEDS: RT-ALBUTEROL SULF 2.5 MG/3 ML PRE-MIX VIAL INH SCH ×3 (09:53→20:53)
--- NOTE | 2021-04-18 10:51 | History & Physical ---
INOCENCIO CARCAMO 04/18/21 1050: History of Present Illness History of Present Illness Reason for visit/HPI CC: SOB on exertion HPI:76 yo F was admitted yesterday afternoon after being seen by Dr. Darnell due to SOB on exertion that has been going on since Wednesday. She went to urgent care on Wednesday and returned home to find that her symptoms returned. She reports no changes her SOB from yesterday and reports a subjective fever on Wednesday, and currently has a headache. She is coughing mucus and is stable at rest, with wheezing on exertion. She has no signs of sepsis with Procalcitonin level that is normal and lactic acid is 1.00. Her BP is elevated, but it is normally well maintained. Date of Admission Apr 17, 2021 at 16:27 Time Seen by a Provider: 08:30 I consulted on this patient on 04/18/21 10:47 Attending Physician Breanna Darnell DO Admitting Physician Breanna Darnell DO Consult Allergies and Home Medications Allergies Coded Allergies: sulfamethoxazole (Verified Allergy, Intermediate, rash, SOB, 10/23/18) trimethoprim (Verified Allergy, Intermediate, rash, SOB, 10/23/18) cephalexin (Verified Allergy, Unknown, 10/02/18) Patient Home Medication List ALPRAZolam (ALPRAZolam) 0.25 Mg Tablet, 0.25 MG PO Q8H PRN for ANXIETY, (Reported) Entered as Reported by: TOMI OCONNOR on 04/17/21 1700 Last Action: Continued Albuterol Sulfate (Proair Hfa) 1 Puff Puff, 2 PUFF IH Q4H PRN for SHORTNESS OF BREATH, (Reported) Entered as Reported by: EDGARDO RIVAS on 12/15/18 1531 Last Action: Continued Apixaban (Eliquis) 5 Mg Tablet, 5 MG PO BID, (Reported) Entered as Reported by: EDGARDO RIVAS on 10/03/18 1127 Last Action: Continued Atorvastatin Calcium (Atorvastatin Calcium) 20 Mg Tablet, 20 MG PO HS, (Reported) Entered as Reported by: EDGARDO RIVAS on 10/03/18 1127 Last Action: Continued Baclofen (Baclofen) 10 Mg Tablet, 10 MG PO BID PRN for MUSCLE SPASMS, (Reported) Entered as Reported by: TOMI OCONNOR on 04/17/21 170 Last Action: Continued Cholecalciferol (Vitamin D3) (Vitamin D3) 125 Mcg/1 Ml Drops, 125 MCG PO DAILY, (Reported) Entered as Reported by: TOMI OCONNOR on 06/17/201120 Last Action: Converted Diltiazem HCl (Diltiazem ER) 240 Mg Capsule.er, 240 MG PO DAILY, (Reported) Entered as Reported by: EDGARDO RIVAS on 12/15/18 153 Last Action: Converted Docusate Sodium (Docusate Sodium) 100 Mg Capsule, 100 MG PO TID PRN for CONSTIPATION-1ST LINE, (Reported) Entered as Reported by: TOMI OCONNOR on 04/17/211699 Last Action: Continued Doxazosin Mesylate (Doxazosin Mesylate) 2 Mg Tablet, 2 MG PO HS, (Reported) Entered as Reported by: EDGARDO RIVAS on 12/15/18 153 Last Action: Continued Doxycycline Hyclate (Doxycycline Hyclate) 100 Mg Capsule, 100 MG PO BID, (Reported) Entered as Reported by: TOMI OCONNOR on 04/17/211699 Last Action: Held Estradiol (Estradiol Tablet) 0.5 Mg Tablet, 0.5 MG PO DAILY, (Reported) Entered as Reported by: VICTOR MANUEL DASILVA on 05/28/16 1331 Last Action: Converted Fluticasone Propionate (Fluticasone Propionate) 16 Gm Granger.susp, 2 SPRAYS NS HS PRN for ALLERGIES, (Reported) Entered as Reported by: EDGARDO RIVAS on 10/03/18 1127 Last Action: Continued Fluticasone/Salmeterol (Advair 100-50 Diskus) 1 Each Blst.w.dev, 1 PUFF INH BID PRN for SHORTNESS OF BREATH, (Reported) Entered as Reported by: EDGARDO RIVAS on 12/29/16 0815 Last Action: Converted Furosemide (Furosemide) 40 Mg Tablet, 40 MG PO DAILY PRN for FLUID RETENTION, (Reported) Entered as Reported by: TOMI OCONNOR on 05/22/19 0744 Last Action: Continued Lisinopril (Lisinopril) 20 Mg Tablet, 20 MG PO DAILY, (Reported) Entered as Reported by: TOMI OCONNOR on 06/17/20 112 Last Action: Continued Loratadine (Loratadine) 10 Mg Tablet, 10 MG PO DAILY, (Reported) Entered as Reported by: TOMI OCONNOR on 05/22/19743 Last Action: Continued Metoprolol Succinate (Metoprolol Succinate) 50 Mg Tab.er.24h, 50 MG PO DAILY, (Reported) Entered as Reported by: TOMI OCONNOR on 05/22/19743 Last Action: Continued Montelukast Sodium (Montelukast Sodium) 10 Mg Tablet, 10 MG PO HS, (Reported) Entered as Reported by: EDGARDO RIVAS on 10/03/181126 Last Action: Continued Oxycodone HCl/Acetaminophen (Oxycodone-Acetaminophen 5-325) 1 Each Tablet, 1-2 EA PO Q6H PRN for PAIN-MODERATE (5-7), (Reported) Entered as Reported by: TOMI OCONNOR on 04/17/211699 Last Action: Continued Potassium Chloride (Potassium Chloride) 10 Meq Capsule.er, 20 MEQ PO DAILY PRN for WHEN TAKING FUROSEMIDE, (Reported) Entered as Reported by: TOMI OCONNOR on 06/17/201120 Last Action: Converted Sertraline HCl (Sertraline HCl) 100 Mg Tablet, 150 MG PO DAILY, (Reported) Entered as Reported by: EDGARDO RIVAS on 10/03/181126 Last Action: Continued Tizanidine HCl (Tizanidine HCl) 4 Mg Tablet, 4 MG PO TID PRN for MUSCLE SPASMS, (Reported) Entered as Reported by: TOMI OCONNOR on 04/17/211699 Last Action: Continued Trazodone HCl (Trazodone HCl) 50 Mg Tablet, 50 MG PO HS, (Reported) Entered as Reported by: EDGARDO RIVAS on 10/03/181126 Last Action: Continued Discontinued Medications ALPRAZolam (Xanax Tablet) 0.25 Mg Tab, 0.25 MG PO Q8H PRN for ANXIETY Discontinued Reason: No Longer Taking Prescribed by: BREANNA DARNELL on 06/21/20 1225 Last Action: Discontinued Acetaminophen (Tylenol Extra Strength) 500 Mg Tablet, 500-1,000 MG PO Q8H PRN for PAIN-MILD (1-4), (Reported) Discontinued Reason: No Longer Taking Entered as Reported by: TOMI OCONNOR on 06/17/20 1121 Last Action: Discontinued Albuterol Sulfate (Albuterol Sulfate) 2.5 Mg/3 Ml Vial.neb, 2.5 MG NEB Q4H PRN for SHORTNESS OF BREATH, (Reported) Discontinued Reason: No Longer Taking Entered as Reported by: EDGARDO RIVAS on 12/15/18 1531 Last Action: Discontinued Ascorbate Calcium (Vitamin C) 500 Mg Tablet, 500 MG PO DAILY, (Reported) Discontinued Reason: No Longer Taking Entered as Reported by: TOMI OCONNOR on 06/17/20 1121 Last Action: Discontinued Clonidine HCl (Clonidine HCl) 0.1 Mg Tablet, 0.1 MG PO Q4HR PRN for Systolic BP > 170 Discontinued Reason: No Longer Taking Prescribed by: BREANNA DARNELL on 06/21/20 1224 Last Action: Discontinued Guaifenesin/Codeine (Robitussin Ac (Codeine) Syrup) 473 Ml Liquid, 5 ML PO Q4H PRN for COUGH Discontinued Reason: No Longer Taking Prescribed by: BREANNA DARNELL on 06/21/20 1225 Last Action: Discontinued Hydralazine HCl (Hydralazine HCl) 25 Mg Tablet, 25 MG PO TID Discontinued Reason: No Longer Taking Prescribed by: BREANNA DARNELL on 06/21/20 1224 Last Action: Discontinued Oxycodone HCl/Acetaminophen (Percocet 5-325 mg Tablet) 1 Each Tablet, 1-2 TAB PO Q6H PRN for PAIN-BREAKTHROUGH Discontinued Reason: No Longer Taking Prescribed by: WOODY BETANCOURT on 08/13/20 1228 Last Action: Discontinued Past Kkkqrjx-Ousirl-Kxkofg Hx Patient Social History Marrital Status: Number of Children: 2 Number of living children: 2 Living Status: healthy Employed/Student: retired Tobacco Use?: No Smoking Status: Never a Smoker Smokeless Tobacco Frequency: Never a User Use of E-Cig and/or Vaping dev: No Substance use?: No Alcohol Use?: No Pt feels they are or have been: No Immunizations Up To Date Date of Influenza Vaccine: Apr 16, 2020 First/Initial COVID19 Vaccinat: SEPTEMBER 2020 Second COVID19 Vaccination Jamar: OCTOBER 2020 Tetanus Booster (TDap): Less Than 5 Years Hepatitis A: No Hepatitis B: No Date of Pneumonia Vaccine: Apr 04, 2020 Seasonal Allergies Seasonal Allergies: Yes Current Status status: No Advance Directives: Yes Advance Directive Location: Home Communicates: Verbally Primary Language: Niuean Preferred Spoken Language: Niuean Is interpretation needed?: No Sensory deficits: Vision impairment Implanted or Applied Medical D: Orthopedic hardware Past Medical History Surgeries: Bladder Surgery, Gallbladder, Hysterectomy, Joint Replacement, Orthopedic Asthma, Sleep Apnea Currently Using CPAP: Yes (WITH O2) Currently Using BIPAP: No Atrial Fibrillation, High Cholesterol, Hypertension [employer] History: Menopausal Sexually Transmitted Disease: No Bladder Infection Hiatal Hernia Arthritis Diabetes, Non-Insulin dep Cataract Loss of Vision: Bilateral Hearing Impairment: Denies Depression Blood Disorders: No Adverse Reaction/Blood Tranf: No Family Medical History Arthritis 19 MOTHER Cataracts 19 FATHER 19 MOTHER Colon cancer 19 FATHER Deafness or hearing loss 19 FATHER Dementia 19 FATHER FH: macular degeneration 19 MOTHER FH: prostate cancer 19 FATHER FH: skin cancer 19 FATHER Gout 19 MOTHER Hypertension 19 FATHER 19 MOTHER Myocardial infarction 19 FATHER 19 MOTHER Review of Systems Respiratory: cough, dyspnea on exertion, short of breath, wheezing Cardiovascular: No chest pain Gastrointestinal: No constipation, No diarrhea, No nausea, No vomiting Physical Exam Vital Signs Vital Signs - First Documented 04/17/21 04/17/21 16:44 17:46 Temp 36.8 Pulse 60 Resp 20 B/P (MAP) 188/84 (118) Pulse Ox 94 O2 Delivery Room Air O2 Flow Rate 94.00 Capillary Refill : Height, Weight, BMI Height: 5'7.00" Weight: 291lbs. 6.0oz. 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 Has an appointment for her Afib in [place] with Electro physiology Tylenol started for BREANNA FIGUEROA DO 04/19/21 0630: History of Present Illness History of Present Illness Reason for visit/HPI Chief complaint: Exacerbation of COPD History of present illness: This is a 76-year-old white female clinic patient of [facility] for the past 17 years who is complex medical history including severe sleep apnea, oxygen dependent asthma, atrial fibrillation status post ablation but now atrial fibrillation has resurfaced in process of seeing Dr. Hoyt at , and morbid obesity who presented to my clinic with shortness of breath and wheezing. She had just had a Covid test that was negative at urgent care. Chest x-ray did not show any infiltrate so antibiotics were discontinued. Today she feels better but still very wheezy. Allergies and Home Medications Allergies Coded Allergies: sulfamethoxazole (Verified Allergy, Intermediate, rash, SOB, 10/23/18) trimethoprim (Verified Allergy, Intermediate, rash, SOB, 10/23/18) cephalexin (Verified Allergy, Unknown, 10/02/18) Patient Home Medication List Home Medication List Reviewed: Yes ALPRAZolam (ALPRAZolam) 0.25 Mg Tablet, 0.25 MG PO Q8H PRN for ANXIETY, (Reported) Entered as Reported by: TOMI OCONNOR on 04/17/211699 Last Action: Continued Albuterol Sulfate (Proair Hfa) 1 Puff Puff, 2 PUFF IH Q4H PRN for SHORTNESS OF BREATH, (Reported) Entered as Reported by: EDGARDO RIVAS on 12/15/181530 Last Action: Continued Apixaban (Eliquis) 5 Mg Tablet, 5 MG PO BID, (Reported) Entered as Reported by: EDGARDO RIVAS on 10/03/181126 Last Action: Continued Atorvastatin Calcium (Atorvastatin Calcium) 20 Mg Tablet, 20 MG PO HS, (Reported) Entered as Reported by: EDGARDO RIVAS on 10/03/181126 Last Action: Continued Baclofen (Baclofen) 10 Mg Tablet, 10 MG PO BID PRN for MUSCLE SPASMS, (Reported) Entered as Reported by: TOMI OCONNOR on 04/17/211699 Last Action: Continued Cholecalciferol (Vitamin D3) (Vitamin D3) 125 Mcg/1 Ml Drops, 125 MCG PO DAILY, (Reported) Entered as Reported by: TOMI OCONNOR on 06/17/201120 Last Action: Converted Diltiazem HCl (Diltiazem ER) 240 Mg Capsule.er, 240 MG PO DAILY, (Reported) Entered as Reported by: EDGARDO RIVAS on 12/15/18 153 Last Action: Converted Docusate Sodium (Docusate Sodium) 100 Mg Capsule, 100 MG PO TID PRN for CONSTIPATION-1ST LINE, (Reported) Entered as Reported by: TOMI OCONNOR on 04/17/21 170 Last Action: Continued Doxazosin Mesylate (Doxazosin Mesylate) 2 Mg Tablet, 2 MG PO HS, (Reported) Entered as Reported by: EDGARDO RIVAS on 12/15/18 1531 Last Action: Continued Doxycycline Hyclate (Doxycycline Hyclate) 100 Mg Capsule, 100 MG PO BID, (Reported) Entered as Reported by: TOMI OCONNOR on 04/17/21 170 Last Action: Held Estradiol (Estradiol Tablet) 0.5 Mg Tablet, 0.5 MG PO DAILY, (Reported) Entered as Reported by: VICTOR MANUEL DASILVA on 05/28/16 1331 Last Action: Converted Fluticasone Propionate (Fluticasone Propionate) 16 Gm Granger.susp, 2 SPRAYS NS HS PRN for ALLERGIES, (Reported) Entered as Reported by: EDGARDO RIVAS on 10/03/18 112 Last Action: Continued Fluticasone/Salmeterol (Advair 100-50 Diskus) 1 Each Blst.w.dev, 1 PUFF INH BID PRN for SHORTNESS OF BREATH, (Reported) Entered as Reported by: EDGARDO RIVAS on 12/29/16 0815 Last Action: Converted Furosemide (Furosemide) 40 Mg Tablet, 40 MG PO DAILY PRN for FLUID RETENTION, (Reported) Entered as Reported by: TOMI OCONNOR on 05/22/19743 Last Action: Continued Lisinopril (Lisinopril) 20 Mg Tablet, 20 MG PO DAILY, (Reported) Entered as Reported by: TOMI OCONNOR on 06/17/20 112 Last Action: Continued Loratadine (Loratadine) 10 Mg Tablet, 10 MG PO DAILY, (Reported) Entered as Reported by: TOMI OCONNOR on 05/22/19743 Last Action: Continued Metoprolol Succinate (Metoprolol Succinate) 50 Mg Tab.er.24h, 50 MG PO DAILY, (Reported) Entered as Reported by: TOMI OCONNOR on 05/22/19743 Last Action: Continued Montelukast Sodium (Montelukast Sodium) 10 Mg Tablet, 10 MG PO HS, (Reported) Entered as Reported by: EDGARDO RIVAS on 10/03/181126 Last Action: Continued Oxycodone HCl/Acetaminophen (Oxycodone-Acetaminophen 5-325) 1 Each Tablet, 1-2 EA PO Q6H PRN for PAIN-MODERATE (5-7), (Reported) Entered as Reported by: TOMI OCONNOR on 04/17/211699 Last Action: Continued Potassium Chloride (Potassium Chloride) 10 Meq Capsule.er, 20 MEQ PO DAILY PRN for WHEN TAKING FUROSEMIDE, (Reported) Entered as Reported by: TOMI OCONNOR on 06/17/201120 Last Action: Converted Sertraline HCl (Sertraline HCl) 100 Mg Tablet, 150 MG PO DAILY, (Reported) Entered as Reported by: EDGARDO RIVAS on 10/03/181126 Last Action: Continued Tizanidine HCl (Tizanidine HCl) 4 Mg Tablet, 4 MG PO TID PRN for MUSCLE SPASMS, (Reported) Entered as Reported by: TOMI OCONNOR on 04/17/211699 Last Action: Continued Trazodone HCl (Trazodone HCl) 50 Mg Tablet, 50 MG PO HS, (Reported) Entered as Reported by: EDGARDO RIVAS on 10/03/181126 Last Action: Continued Discontinued Medications ALPRAZolam (Xanax Tablet) 0.25 Mg Tab, 0.25 MG PO Q8H PRN for ANXIETY Discontinued Reason: No Longer Taking Prescribed by: BREANNA DARNELL on 06/21/20 1225 Last Action: Discontinued Acetaminophen (Tylenol Extra Strength) 500 Mg Tablet, 500-1,000 MG PO Q8H PRN for PAIN-MILD (1-4), (Reported) Discontinued Reason: No Longer Taking Entered as Reported by: TOMI OCONNOR on 06/17/201120 Last Action: Discontinued Albuterol Sulfate (Albuterol Sulfate) 2.5 Mg/3 Ml Vial.neb, 2.5 MG NEB Q4H PRN for SHORTNESS OF BREATH, (Reported) Discontinued Reason: No Longer Taking Entered as Reported by: EDGARDO RIVAS on 12/15/18 1531 Last Action: Discontinued Ascorbate Calcium (Vitamin C) 500 Mg Tablet, 500 MG PO DAILY, (Reported) Discontinued Reason: No Longer Taking Entered as Reported by: TOMI OCONNOR on 06/17/20 112 Last Action: Discontinued Clonidine HCl (Clonidine HCl) 0.1 Mg Tablet, 0.1 MG PO Q4HR PRN for Systolic BP > 170 Discontinued Reason: No Longer Taking Prescribed by: BREANNA DARNELL on 06/21/20 1224 Last Action: Discontinued Guaifenesin/Codeine (Robitussin Ac (Codeine) Syrup) 473 Ml Liquid, 5 ML PO Q4H PRN for COUGH Discontinued Reason: No Longer Taking Prescribed by: BREANNA DARNELL on 06/21/20 1225 Last Action: Discontinued Hydralazine HCl (Hydralazine HCl) 25 Mg Tablet, 25 MG PO TID Discontinued Reason: No Longer Taking Prescribed by: BREANNA DARNELL on 06/21/20 1224 Last Action: Discontinued Oxycodone HCl/Acetaminophen (Percocet 5-325 mg Tablet) 1 Each Tablet, 1-2 TAB PO Q6H PRN for PAIN-BREAKTHROUGH Discontinued Reason: No Longer Taking Prescribed by: WOODY BETANCOURT on 08/13/20 1228 Last Action: Discontinued Past Xyohpru-Uryshv-Esqgwc Hx Patient Social History Marrital Status: Employed/Student: retired Smoking Status: Never a Smoker Past Medical History Surgeries: Orthopedic Pneumonia, Sleep Apnea Currently Using CPAP: Yes Atrial Fibrillation, Chronic Edema/Swelling, High Cholesterol, Hypertension Bladder Infection Gastroesophageal Reflux Arthritis, Chronic Back Pain Anxiety, Depression Family Medical History Arthritis 19 MOTHER Cataracts 19 FATHER 19 MOTHER Colon cancer 19 FATHER Deafness or hearing loss 19 FATHER Dementia 19 FATHER FH: macular degeneration 19 MOTHER FH: prostate cancer 19 FATHER FH: skin cancer 19 FATHER Gout 19 MOTHER Hypertension 19 FATHER 19 MOTHER Myocardial infarction 19 FATHER 19 MOTHER Review of Systems Constitutional: see HPI EENTM: no symptoms reported Respiratory: no symptoms reported, dyspnea on exertion, short of breath, wheezing Gastrointestinal: no symptoms reported Musculoskeletal: no symptoms reported Skin: no symptoms reported Psychiatric/Neurological: No Symptoms Reported Physical Exam General Appearance: No Apparent Distress, WD/WN, Chronically ill, Obese Eyes: Bilateral Eye Normal Inspection, Bilateral Eye PERRL, Bilateral Eye EOMI HEENT: PERRL/EOMI, Normal ENT Inspection, Pharynx Normal Neck: Full Range of Motion, Normal Inspection, Non Tender, Supple, Carotid Bruit Respiratory: Chest Non Tender, No Accessory Muscle Use, No Respiratory Distress, Decreased Breath Sounds, Expiration, Wheezing Cardiovascular: Regular Rate, Rhythm, No Edema, No Gallop, No JVD, No Murmur, Normal Peripheral Pulses Gastrointestinal: Normal Bowel Sounds, No Organomegaly, No Pulsatile Mass, Non Tender, Soft Back: Normal Inspection, No CVA Tenderness, No Vertebral Tenderness Extremity: Normal Capillary Refill, Normal Inspection, Normal Range of Motion, Non Tender, No Calf Tenderness, No Pedal Edema Neurologic/Psychiatric: Alert, Oriented x3, No Motor/Sensory Deficits, Normal Mood/Affect Skin: Normal Color, Warm/Dry Lymphatic: No Adenopathy Assessment/Plan Assessment and Plan Assessment: Acute exacerbation of COPD failed outpatient treatment Recurrence of atrial fibrillation status post ablations in process of seeing Dr. Hoyt at Severe hypertension due to steroids Obstructive sleep apnea on CPAP Nocturnal hypoxia on oxygen Anxiety Depression Recurrent UTI Plan: IV steroids Blood pressure management Monitor closely Admission Diagnosis Admission Status: Inpatient Order (span 2 midnights) Reason for Inpatient Admission: Failed outpatient treatment Supervisory-Addendum Brief Verification & Attestation Participated in pt care: history, MDM, physical Personally performed: exam, history, MDM, supervision of care Care discussed with: Medical Student Procedures: n/a Results interpretation: Verified all documentation Verification and Attestation of Medical Student E/M Service A medical student performed and documented this service in my presence. I reviewed and verified all information documented by the medical student and made modifications to such information, when appropriate. I personally performed the physical exam and medical decision making. Breanna Darnell, Apr 19, 2021,06:30 INOCENCIO CARCAMO Apr 18, 2021 10:50 BREANNA DARNELL DO Apr 19, 2021 06:30
--- NOTE | 2021-04-18 10:55 | Consultation-Cardiology ---
HPI-Cardiology Cardiology Consultation: Date of Consultation 04/18/21 Time Seen by a Provider: 09:10 Date of Admission Attending Physician Breanna Darnell DO Admitting Physician Breanna Darnell DO Consulting Physician QAMAR GONZALEZ MD, MA, FACP, FACC, FSCAI, CCDS Physician requesting consult: Dr Darnell HPI: Chief Complaint: Reason for Card consult: Shortness of breath HPI 76 yo woman with increasing shortness of breath and increasing productive cough for nearly a week. Also gen malaise but w/o fever or chills. Went to see Dr Darnell yesterday and was hospitalized. No cp or palp or syncope. Chronic, intermittent leg swelling. Review of Systems-Cardiology Review of Systems Constitutional: malaise, tiredness; No weight loss, No weight gain Eyes: No vision change Ears/Nose/Throat: No ear discharge, No nasal drainage, No recent hearing loss Respiratory: As described under HPI Cardiovascular: As described under HPI Gastrointestinal: No diarrhea, No nausea, No vomiting Genitourinary: No dysuria, No hematuria, No urine frequency changes Musculoskeletal: back pain (chronic) Skin: No rash, No ulcerations Psychiatric/Neurological: No seizure, No focal weakness, No syncope Hematologic: No bleeding abnormalities CFI-Ykzdsj-Oocjfp Hx Patient Social History Smoking Status: Never a Smoker 2nd Hand Smoke Exposure: No Have you traveled recently?: No Alcohol Use?: No Pt feels they are or have been: No Immunizations Up To Date Tetanus Booster (TDap): Less than 5yrs Date of Pneumonia Vaccine: Apr 04, 2020 Date of Influenza Vaccine: Apr 16, 2020 Past Medical History PMH As described under Assessment. Family Medical History Family Medical History: She reports her mother and father both had CAD and HTN. Family History: Arthritis 19 MOTHER Cataracts 19 FATHER 19 MOTHER Colon cancer 19 FATHER Deafness or hearing loss 19 FATHER Dementia 19 FATHER FH: macular degeneration 19 MOTHER FH: prostate cancer 19 FATHER FH: skin cancer 19 FATHER Gout 19 MOTHER Hypertension 19 FATHER 19 MOTHER Myocardial infarction 19 FATHER 19 MOTHER Allergies and Home Medications Allergies Coded Allergies: sulfamethoxazole (Verified Allergy, Intermediate, rash, SOB, 10/23/18) trimethoprim (Verified Allergy, Intermediate, rash, SOB, 10/23/18) cephalexin (Verified Allergy, Unknown, 10/02/18) Patient Home Medication List Home Medication List Reviewed: Yes ALPRAZolam (ALPRAZolam) 0.25 Mg Tablet, 0.25 MG PO Q8H PRN for ANXIETY, (Reported) Entered as Reported by: TOMI OCONNOR on 04/17/211699 Last Action: Continued Albuterol Sulfate (Proair Hfa) 1 Puff Puff, 2 PUFF IH Q4H PRN for SHORTNESS OF BREATH, (Reported) Entered as Reported by: EDGARDO RIVAS on 12/15/181530 Last Action: Continued Apixaban (Eliquis) 5 Mg Tablet, 5 MG PO BID, (Reported) Entered as Reported by: EDGARDO RIVAS on 10/03/181126 Last Action: Continued Atorvastatin Calcium (Atorvastatin Calcium) 20 Mg Tablet, 20 MG PO HS, (Reported) Entered as Reported by: EDGRADO RIVAS on 10/03/181126 Last Action: Continued Baclofen (Baclofen) 10 Mg Tablet, 10 MG PO BID PRN for MUSCLE SPASMS, (Reported) Entered as Reported by: TOMI OCONNOR on 04/17/211699 Last Action: Continued Cholecalciferol (Vitamin D3) (Vitamin D3) 125 Mcg/1 Ml Drops, 125 MCG PO DAILY, (Reported) Entered as Reported by: TOMI OCONNOR on 06/17/201120 Last Action: Converted Diltiazem HCl (Diltiazem ER) 240 Mg Capsule.er, 240 MG PO DAILY, (Reported) Entered as Reported by: EDGARDO RIVAS on 12/15/181530 Last Action: Converted Docusate Sodium (Docusate Sodium) 100 Mg Capsule, 100 MG PO TID PRN for CONS TIPATION-1ST LINE, (Reported) Entered as Reported by: TOMI OCONNOR on 04/17/211699 Last Action: Continued Doxazosin Mesylate (Doxazosin Mesylate) 2 Mg Tablet, 2 MG PO HS, (Reported) Entered as Reported by: EDGARDO RIVAS on 12/15/181530 Last Action: Continued Doxycycline Hyclate (Doxycycline Hyclate) 100 Mg Capsule, 100 MG PO BID, (Reported) Entered as Reported by: TOMI OCONNOR on 04/17/211699 Last Action: Held Estradiol (Estradiol Tablet) 0.5 Mg Tablet, 0.5 MG PO DAILY, (Reported) Entered as Reported by: VICTOR MANUEL DASILVA on 05/28/16 1331 Last Action: Converted Fluticasone Propionate (Fluticasone Propionate) 16 Gm [place].susp, 2 SPRAYS NS HS PRN for ALLERGIES, (Reported) Entered as Reported by: EDGARDO RIVAS on 10/03/181126 Last Action: Continued Fluticasone/Salmeterol (Advair 100-50 Diskus) 1 Each Blst.w.dev, 1 PUFF INH BID PRN for SHORTNESS OF BREATH, (Reported) Entered as Reported by: EDGARDO RIVAS on 12/29/16 0815 Last Action: Converted Furosemide (Furosemide) 40 Mg Tablet, 40 MG PO DAILY PRN for FLUID RETENTION, (Reported) Entered as Reported by: TOMI OCONNOR on 05/22/19743 Last Action: Continued Lisinopril (Lisinopril) 20 Mg Tablet, 20 MG PO DAILY, (Reported) Entered as Reported by: TOMI OCONNOR on 06/17/201120 Last Action: Continued Loratadine (Loratadine) 10 Mg Tablet, 10 MG PO DAILY, (Reported) Entered as Reported by: TOMI OCONNOR on 05/22/19743 Last Action: Continued Metoprolol Succinate (Metoprolol Succinate) 50 Mg Tab.er.24h, 50 MG PO DAILY, (Reported) Entered as Reported by: TOMI OCONNOR on 05/22/19743 Last Action: Continued Montelukast Sodium (Montelukast Sodium) 10 Mg Tablet, 10 MG PO HS, (Reported) Entered as Reported by: EDGARDO RIVAS on 10/03/181126 Last Action: Continued Oxycodone HCl/Acetaminophen (Oxycodone-Acetaminophen 5-325) 1 Each Tablet, 1-2 EA PO Q6H PRN for PAIN-MODERATE (5-7), (Reported) Entered as Reported by: TOMI OCONNOR on 04/17/21 1700 Last Action: Continued Potassium Chloride (Potassium Chloride) 10 Meq Capsule.er, 20 MEQ PO DAILY PRN for WHEN TAKING FUROSEMIDE, (Reported) Entered as Reported by: TOMI OCONNOR on 06/17/201120 Last Action: Converted Sertraline HCl (Sertraline HCl) 100 Mg Tablet, 150 MG PO DAILY, (Reported) Entered as Reported by: EDGARDO RIVAS on 10/03/181126 Last Action: Continued Tizanidine HCl (Tizanidine HCl) 4 Mg Tablet, 4 MG PO TID PRN for MUSCLE SPASMS, (Reported) Entered as Reported by: TOMI OCONNOR on 04/17/21 1700 Last Action: Continued Trazodone HCl (Trazodone HCl) 50 Mg Tablet, 50 MG PO HS, (Reported) Entered as Reported by: EDGARDO RIVAS on 10/03/181126 Last Action: Continued Discontinued Medications ALPRAZolam (Xanax Tablet) 0.25 Mg Tab, 0.25 MG PO Q8H PRN for ANXIETY Discontinued Reason: No Longer Taking Prescribed by: BREANNA DARNELL on 06/21/20 1225 Last Action: Discontinued Acetaminophen (Tylenol Extra Strength) 500 Mg Tablet, 500-1,000 MG PO Q8H PRN for PAIN-MILD (1-4), (Reported) Discontinued Reason: No Longer Taking Entered as Reported by: TOMI OCONNOR on 06/17/20 112 Last Action: Discontinued Albuterol Sulfate (Albuterol Sulfate) 2.5 Mg/3 Ml Vial.neb, 2.5 MG NEB Q4H PRN for SHORTNESS OF BREATH, (Reported) Discontinued Reason: No Longer Taking Entered as Reported by: EDGARDO RIVAS on 12/15/18 1531 Last Action: Discontinued Ascorbate Calcium (Vitamin C) 500 Mg Tablet, 500 MG PO DAILY, (Reported) Discontinued Reason: No Longer Taking Entered as Reported by: TOMI OCONNOR on 06/17/20 1121 Last Action: Discontinued Clonidine HCl (Clonidine HCl) 0.1 Mg Tablet, 0.1 MG PO Q4HR PRN for Systolic BP > 170 Discontinued Reason: No Longer Taking Prescribed by: BREANNA DARNELL on 06/21/20 1224 Last Action: Discontinued Guaifenesin/Codeine (Robitussin Ac (Codeine) Syrup) 473 Ml Liquid, 5 ML PO Q4H PRN for COUGH Discontinued Reason: No Longer Taking Prescribed by: BREANNA DARNELL on 06/21/20 1225 Last Action: Discontinued Hydralazine HCl (Hydralazine HCl) 25 Mg Tablet, 25 MG PO TID Discontinued Reason: No Longer Taking Prescribed by: BREANNA DARNELL on 06/21/20 1224 Last Action: Discontinued Oxycodone HCl/Acetaminophen (Percocet 5-325 mg Tablet) 1 Each Tablet, 1-2 TAB PO Q6H PRN for PAIN-BREAKTHROUGH Discontinued Reason: No Longer Taking Prescribed by: WOODY BETANCOURT on 08/13/20 1228 Last Action: Discontinued Physical Exam-Cardiology Physical Exam Vital Signs/I&O 04/17/21 04/18/21 04/18/21 04/18/21 23:30 01:00 03:29 05:15 Temp 35.8 36.0 Pulse 54 47 57 Resp 18 18 B/P (MAP) 165/81 (109) 195/88 (123) 174/80 (111) Pulse Ox 93 95 O2 Delivery NIV Bilevel NIV Bilevel 04/18/21 04/18/21 04/18/21 04/18/21 07:00 08:00 08:00 09:53 Temp 36.7 Pulse 39 59 Resp 18 B/P (MAP) 196/94 (128) Pulse Ox 95 98 O2 Delivery Room Air Room Air Room Air 04/17/21 23:59 Intake Total 840 ml Balance 840 ml Capillary Refill : Constitutional: AAO x 3, well-developed, well-nourished HEENT: EOMI, hearing is well preserved; No xanthelasmas are seen Neck: carotid pulses are 2 + bilaterally, with good upstrokes Respiratory: No accessory muscle use; other (Generally diminished air entry, prolonged exp, expiratory wheezes and rhonchi) Cardiovascular: irregularly irregular, S1 and S2, systolic murmur (soft [place] at card base) Gastrointestinal: No tender; soft; No guarding, No rebound; audible bowel sounds Extremities: swelling (mild, bilateral ankle swelling); No clubbing, No cyanosis Neurologic/Psychiatric: oriented x 3, other (moves all her limbs equally) Skin: No rash on exposed areas, No ulcerations on exposed areas Data Review Labs Laboratory Tests 04/17/21 17:25: White Blood Count 11.5H, Red Blood Count 4.86, Hemoglobin 14.2, Hematocrit 43, Mean Corpuscular Volume 88, Mean Corpuscular Hemoglobin 29, Mean Corpuscular Hemoglobin Concent 33, Red Cell Distribution Width 13.2, Platelet Count 245, Mean Platelet Volume 9.7, Immature Granulocyte % (Auto) 2, Neutrophils (%) (Auto) 83H, Lymphocytes (%) (Auto) 10L, Monocytes (%) (Auto) 5, Eosinophils (%) (Auto) 0, Basophils (%) (Auto) 0, Neutrophils # (Auto) 9.6H, Lymphocytes # (Auto) 1.1, Monocytes # (Auto) 0.6, Eosinophils # (Auto) 0.0, Basophils # (Auto) 0.0, Immature Granulocyte # (Auto) 0.2H, Sodium Level 141, Potassium Level 4.1, Chloride Level 106, Carbon Dioxide Level 21, Anion Gap 14, Blood Urea Nitrogen 17, Creatinine 0.81, Estimat Glomerular Filtration Rate 69, BUN/Creatinine Ratio 21, Glucose Level 117H, Lactic Acid Level 1.00, Calcium Level 9.4, Corrected Calcium 9.3, Total Bilirubin 0.7, Aspartate Amino Transf (AST/SGOT) 16, Alanine Aminotransferase (ALT/SGPT) 23, Alkaline Phosphatase 80, Total Protein 6.5, Albumin 4.1, Procalcitonin 0.04 04/17/21 18:46: Blood Gas Puncture Site LT RADIAL, Blood Gas Patient Temperature 35.9, Arterial Blood pH 7.43, Arterial Blood Partial Pressure CO2 39, Arterial Blood Partial Pressure O2 67L, Arterial Blood HCO3 26, Arterial Blood Total CO2 27.2, Arterial Blood Oxygen Saturation 95, Arterial Blood Base Excess 1.8, Anish Test YES-POS, Blood Gas Ventilator Setting NO, Blood Gas Inspired Oxygen ROOM AIR 04/18/21 05:28: White Blood Count 9.6, Red Blood Count 4.59, Hemoglobin 13.4, Hematocrit 40, Mean Corpuscular Volume 88, Mean Corpuscular Hemoglobin 29, Mean Corpuscular Hemoglobin Concent 33, Red Cell Distribution Width 13.2, Platelet Count 234, Mean Platelet Volume 9.6, Immature Granulocyte % (Auto) 2, Neutrophils (%) (Auto) 91H, Lymphocytes (%) (Auto) 7L, Monocytes (%) (Auto) 1, Eosinophils (%) (Auto) 0, Basophils (%) (Auto) 0, Neutrophils # (Auto) 8.7H, Lymphocytes # (Auto) 0.6L, Monocytes # (Auto) 0.1, Eosinophils # (Auto) 0.0, Basophils # (Auto) 0.0, Immature Granulocyte # (Auto) 0.2H, Sodium Level 140, Potassium Level 4.1, Chloride Level 105, Carbon Dioxide Level 23, Anion Gap 12, Blood Urea Nitrogen 19H, Creatinine 0.84, Estimat Glomerular Filtration Rate 66, BUN/Creatinine Ratio 23, Glucose Level 164H, Calcium Level 9.3, Corrected Calcium 9.5, Total Bilirubin 0.7, Aspartate Amino Transf (AST/SGOT) 12, Alanine Aminotransferase (ALT/SGPT) 15, Alkaline Phosphatase 76, Total Protein 6.2L, Albumin 3.8, Neutrophils % (Manual) 90, Lymphocytes % (Manual) 9, Monocytes % (Manual) 1, Blood Morphology Comment NORMAL Laboratory Tests 04/17/21 17:25 04/18/21 05:28 A/P-Cardiology Assessment/Admission Diagnosis Acute asthmatic bronchitis Paroxysmal A fib and typical A flutter - first documented on 09-30-18 at [facility]). Placed on flecainide at [facility] on 09/30/18 - has had typical atrial flutter ablation by Dr Thompson on 01/30/19 - has had ILR placement by Dr Thompson n 04/06/19 - Post a-fib ablation on 05-22-2019 by . Now off flecainide - ILR interrogation of Feb 2021 showed episodes of a-fib with RVR in January - awaiting apptt at [facility] for recurrent a fib at [facility] (Dr Thompson) - OAC with Eliquis CAD - Minor coronary artery disease per cardiac catheterization of July 2006. - MPI of 01/17/15 did not show ischemia or infarction, and LVEF was 54% - Echo 12/16/18 showed LVEF 60-65%, mild MR, RVSP 25 mmHg Abnormal ECG - RBBB, chronic History of bronchial asthma - managed by PCP Hyperlipidemia - being treated and being followed by Dr. Darnell. Glucose intolerance - being managed by Dr. Darnell Hypertension - not well controlled at the time of this admission Obesity - Elevated body mass index of approximately 44 Chronic diastolic CHF - clinically compensated Carotid dz - Minimal carotid arterial disease on carotid u/s of 03/09/17 H/o mild pulmonary hypertension - probable related to obesity-hypoventilation syndrome due to body habitus, i mproved since treatment of ADOLPH. Obstructive sleep apnea syndrome - treated with C-PAP therapy. History of overactive bladder and urinary incontinence - S/p botox injection in September 2017 and Mar 2019 by her urologist in [facility] in [place]. Orthopedic - Left knee and R hip replacement. Discussion and Recomendations * Continue long-acting diltiazem for ventricular rate control * Add beta-coy for better bp control and a-fib control * Dr. Darnell managing ac asthmatic bronchitis * Monitor labs * Dr Hager covering Card svce over the weekend QAMAR GONZALEZ MD FACP FAC CCDS Apr 18, 2021 10:55
[2021-04-18] MEDS: FUROSEMIDE 40 MG/4 ML INJ (LASIX) IVP SCH (11:14)
[2021-04-18] MEDS ORDERED: meTOproloL SUCCINATE 50 MG (TOPROL XL) TAB PO ONE (11:30)
[2021-04-18] MEDS ORDERED: ACETAMINOPHEN 325 MG TABLET PO PRN (12:00)
[2021-04-18] MEDS: MONTELUKAST 10 MG (SINGULAIR) TAB PO SCH (20:43)
[2021-04-18] MEDS: traZODone 50 MG (DESYREL) TAB PO SCH (20:43)
[2021-04-18] MEDS: doxAzosin 2 MG (CARDURA) TAB PO SCH (20:43)
[2021-04-18] MEDS: ALPRAZolam 0.25 MG (XANAX) TAB PO PRN (21:33)
[2021-04-19] VITALS (7 sets, daily range): BP systolic 114–190; BP diastolic 65–101
[2021-04-19] MEDS: methylPREDNISolone 125 MG (Solu-MEDROL) VIAL IVP SCH ×3 (00:06→20:00)
[2021-04-19] MEDS: cloNIDine 0.1 MG (CATAPRES) TAB PO PRN (03:28)
[2021-04-19 07:02] LABS: BASOPHILS % (AUTO) 0 % (0-10); EOSINOPHILS % (AUTO) 0 % (0-10); HEMATOCRIT 42 % (35-52); HEMOGLOBIN 13.8 g/dL (11.5-16.0); LYMPHOCYTES # (AUTO) 0.9 10^3/uL (1.0-4.0); LYMPHOCYTES % (AUTO) 6 % (12-44); MEAN CORPUSCULAR HEMOGLOBIN 29 pg (25-34); MEAN CORPUSCULAR HGB CONC 33 g/dL (32-36); MEAN CORPUSCULAR VOLUME 87 fL (80-99); MEAN PLATELET VOLUME 9.8 fL (9.0-12.2); MONOCYTES # (AUTO) 0.3 10^3/uL (0.0-1.0); MONOCYTES % (AUTO) 2 % (0-12); NEUTROPHILS # (AUTO) 13.5 10^3/uL (1.8-7.8); NEUTROPHILS % (AUTO) 90 % (42-75); PLATELET COUNT 225 10^3/uL (130-400)
[2021-04-19 07:26] LABS: ALBUMIN 3.7 GM/DL (3.2-4.5); POTASSIUM 3.9 MMOL/L (3.6-5.0)
[2021-04-19 07:27] LABS: CALCIUM 9.2 MG/DL (8.5-10.1)
[2021-04-19 07:28] LABS: TOTAL PROTEIN 6.1 GM/DL (6.4-8.2)
[2021-04-19 07:30] LABS: BILIRUBIN,TOTAL 0.5 MG/DL (0.1-1.0)
[2021-04-19 07:32] LABS: CREATININE SERUM 0.79 MG/DL (0.60-1.30)
[2021-04-19 07:39] LABS: BAND NEUTROPHILS 1 %; BASOPHILS % (MANUAL) 0 %; EOSINOPHILS % (MANUAL) 0 %; LYMPHOCYTES % (MANUAL) 6 %; MONOCYTES % (MANUAL) 5 %; NEUTROPHILS % (MANUAL) 88 %; RBC MORPH NORMAL
[2021-04-19] MEDS: RT--FLUTICASONE/SALMETEROL 113-14 (AIRDUO RespiCLICK) IH SCH ×2 (07:43→19:56)
[2021-04-19] MEDS: RT-ALBUTEROL SULF 2.5 MG/3 ML PRE-MIX VIAL INH SCH ×3 (07:43→19:56)
--- NOTE | 2021-04-19 07:49 | Progress Note ---
Subjective Date Seen by a Provider: Apr 19, 2021 Time Seen by a Provider: 11:00 Subjective/Events-last exam Patient doing really well Denies any new issues Wheezing but improved Blood pressure much improved Decrease steroids today Check meds and labs No concerns Bowels are moving Took a shower Review of Systems General: Fatigue Pulmonary: Dyspnea Focused Exam Lactate Level 04/17/21 17:25: Lactic Acid Level 1.00 Objective Exam Last Set of Vital Signs Vital Signs Date Time Temp Pulse Resp B/P (MAP) Pulse Ox O2 Delivery O2 Flow Rate FiO2 04/19/21 07:00 41 04/19/21 03:35 35.8 20 186/101 (129) 94 Room Air 04/17/21 16:44 94.00 Capillary Refill : I&O Intake and Output 04/19/21 00:00 Intake Total 2427 ml Balance 2427 ml Intake Oral 2407 ml IV Total 20 ml # Voids 9 # Bowel Movements 1 General: Alert, Oriented X3, Cooperative, No Acute Distress Lungs: Other (Wheezing bilateral upper and lower) Heart: Regular Rate, Normal S1, Normal S2, No Murmurs Neuro: Normal Gait, Normal Speech, Strength at 5/5 X4 Ext, Normal Tone Psych/Mental Status: Mental Status NL, Mood NL Results Lab Laboratory Tests 04/19/21 06:20: Sodium Level 141, Potassium Level 3.9, Chloride Level 107, Carbon Dioxide Level 22, Anion Gap 12, Blood Urea Nitrogen 25H, Creatinine 0.79, Estimat Glomerular Filtration Rate 71, BUN/Creatinine Ratio 32, Glucose Level 155H, Calcium Level 9.2, Corrected Calcium 9.4, Total Bilirubin 0.5, Aspartate Amino Transf (AST/SGOT) 8, Alanine Aminotransferase (ALT/SGPT) 14, Alkaline Phosphatase 68, Total Protein 6.1L, Albumin 3.7 04/19/21 06:30: White Blood Count 15.0H, Red Blood Count 4.78, Hemoglobin 13.8, Hematocrit 42, Mean Corpuscular Volume 87, Mean Corpuscular Hemoglobin 29, Mean Corpuscular Hemoglobin Concent 33, Red Cell Distribution Width 13.2, Platelet Count 225, Mean Platelet Volume 9.8, Immature Granulocyte % (Auto) 2, Neutrophils (%) (Auto) 90H, Lymphocytes (%) (Auto) 6L, Monocytes (%) (Auto) 2, Eosinophils (%) (Auto) 0, Basophils (%) (Auto) 0, Neutrophils # (Auto) 13.5H, Lymphocytes # (Auto) 0.9L, Monocytes # (Auto) 0.3, Eosinophils # (Auto) 0.0, Basophils # (Auto) 0.0, Immature Granulocyte # (Auto) 0.3H, Neutrophils % (Manual) 88, Lymphocytes % (Manual) 6, Monocytes % (Manual) 5, Eosinophils % (Manual) 0, Basophils % (Manual) 0, Band Neutrophils 1, Blood Morphology Comment NORMAL Microbiology 04/17/21 Blood Culture - Preliminary, Resulted No growth Assessment/Plan Assessment/Plan Assess & Plan/Chief Complaint Assessment: Acute exacerbation of COPD failed outpatient treatment Recurrence of atrial fibrillation status post ablations in process of seeing Dr. Hoyt at Severe hypertension due to steroids Obstructive sleep apnea on CPAP Previous 2019 Nocturnal hypoxia on oxygen Anxiety Depression Recurrent UTI history Plan: IV steroids Blood pressure management Monitor closely 04/19/2021: Nebulizers IV steroids Monitor closely Clinical Quality Measures Admission Status Admission Dx Assessment: Acute exacerbation of COPD failed outpatient treatment Recurrence of atrial fibrillation status post ablations in process of seeing Dr. Hoyt at Severe hypertension due to steroids Obstructive sleep apnea on CPAP Nocturnal hypoxia on oxygen Anxiety Depression Recurrent UTI Plan: IV steroids Blood pressure management Monitor closely ANAY DARNELL DO Apr 19, 2021 07:49
[2021-04-19] MEDS ORDERED: meTOproloL SUCCINATE 50 MG (TOPROL XL) TAB PO SCH ×2 (09:00→16:15)
[2021-04-19] MEDS: hydrALAZINE (APRESOLINE) 25 MG TAB PO SCH ×3 (09:13→20:03)
[2021-04-19] MEDS: LORATADINE (CLARITIN) 10 MG TAB PO SCH (09:14)
[2021-04-19] MEDS: lisINopril 20 MG (PRINIVIL) TABLET PO SCH (09:14)
[2021-04-19] MEDS: SERTRALINE 100 MG (ZOLOFT) TAB PO SCH (09:14)
[2021-04-19] MEDS: meTOproloL SUCCINATE 50 MG (TOPROL XL) TAB PO SCH (09:14)
[2021-04-19] MEDS: VITAMIN D3 125 MCG (5,000 UNITS) CAPSULE PO SCH (09:15)
[2021-04-19] MEDS: APIXABAN 5 MG (ELIQUIS) TABLET PO SCH ×2 (09:15→20:00)
[2021-04-19] MEDS: ESTRADIOL 1 MG TAB (ESTRACE) PO SCH (09:15)
[2021-04-19] MEDS: SENNA W/DOCUSATE (SENOKOT S) TABLET PO SCH ×2 (09:15→20:01)
[2021-04-19] MEDS: FUROSEMIDE 40 MG/4 ML INJ (LASIX) IVP SCH (09:16)
--- NOTE | 2021-04-19 16:11 | Cardiology Progress Note ---
Progress Note-Cardiology Events since last exam Date Seen by Provider: Apr 19, 2021 Time Seen by Provider: 16:07 Events since last exam We are following her for atrial fibrillation among other cardiac issues. She normally follows with one of my partners, Dr. Ang. She feels as though her breathing is a little bit better but she still has some wheezing and is not quite back to normal. She denies chest pain, palpitations, syncope, or ankle edema. Certain portions of this document may have been dictated utilizing voice recognition technology. Inherent to this technology, typographical and grammatical errors may exist. As much as I am diligent to identify and correct these mistakes, some errors may remain in the document. Vitals Last set of Vitals Signs Vital Signs 04/19/21 04/19/21 07:40 15:48 Temp 36.2 Pulse 60 Resp 18 B/P (MAP) 158/65 (96) Pulse Ox 93 O2 Delivery Room Air O2 Flow Rate 2.00 Labs Labs Laboratory Tests 04/19/21 06:20 04/19/21 06:30 Exam Vital Signs Vital Signs Date Time Temp Pulse Resp B/P (MAP) Pulse Ox O2 Delivery O2 Flow Rate FiO2 04/19/21 15:48 36.2 60 18 158/65 (96) 93 Room Air 04/19/21 07:40 2.00 Physical Exam General: Alert. No acute distress. She is obese. Eye: No xanthelasma. HENT: Normocephalic. Neck: Jugular venous pressure does not appear elevated. Respiratory: Lungs are clear to auscultation. Respirations are non-labored. Breath sounds are equal. Symmetrical chest wall expansion. Cardiovascular: Normal rate. Irregular rhythm. No murmur. No gallop. No edema. Gastrointestinal: Soft. Normal bowel sounds. Skin: Warm. Dry. Neurologic: Alert and oriented to person, place, time. Cranial nerves 3-11 grossly intact. Psychiatric: Cooperative. Appropriate mood & affect. Labs Laboratory Tests Test 04/19/21 06:20 04/19/21 06:30 Range/Units Sodium Level 141 135-145 MMOL/L Potassium Level 3.9 3.6-5.0 MMOL/L Chloride Level 107 98-107 MMOL/L Carbon Dioxide Level 22 21-32 MMOL/L Anion Gap 12 5-14 MMOL/L Blood Urea Nitrogen 25 H 7-18 MG/DL Creatinine 0.79 0.60-1.30 MG/DL Estimat Glomerular Filtration Rate 71 BUN/Creatinine Ratio 32 Glucose Level 155 H 70-105 MG/DL Calcium Level 9.2 8.5-10.1 MG/DL Corrected Calcium 9.4 8.5-10.1 MG/DL Total Bilirubin 0.5 0.1-1.0 MG/DL Aspartate Amino Transf (AST/SGOT) 8 5-34 U/L Alanine Aminotransferase (ALT/SGPT) 14 0-55 U/L Alkaline Phosphatase 68 40-136 U/L Total Protein 6.1 L 6.4-8.2 GM/DL Albumin 3.7 3.2-4.5 GM/DL Triglycerides Level 75 <150 MG/DL VLDL Cholesterol 15 5-40 MG/DL White Blood Count 15.0 H 4.3-11.0 10^3/uL Red Blood Count 4.78 3.80-5.11 10^6/uL Hemoglobin 13.8 11.5-16.0 g/dL Hematocrit 42 35-52 % Mean Corpuscular Volume 87 80-99 fL Mean Corpuscular Hemoglobin 29 25-34 pg Mean Corpuscular Hemoglobin Concent 33 32-36 g/dL Red Cell Distribution Width 13.2 10.0-14.5 % Platelet Count 225 130-400 10^3/uL Mean Platelet Volume 9.8 9.0-12.2 fL Immature Granulocyte % (Auto) 2 % Neutrophils (%) (Auto) 90 H 42-75 % Lymphocytes (%) (Auto) 6 L 12-44 % Monocytes (%) (Auto) 2 0-12 % Eosinophils (%) (Auto) 0 0-10 % Basophils (%) (Auto) 0 0-10 % Neutrophils # (Auto) 13.5 H 1.8-7.8 10^3/uL Lymphocytes # (Auto) 0.9 L 1.0-4.0 10^3/uL Monocytes # (Auto) 0.3 0.0-1.0 10^3/uL Eosinophils # (Auto) 0.0 0.0-0.3 10^3/uL Basophils # (Auto) 0.0 0.0-0.1 10^3/uL Immature Granulocyte # (Auto) 0.3 H 0.0-0.1 10^3/uL Neutrophils % (Manual) 88 % Lymphocytes % (Manual) 6 % Monocytes % (Manual) 5 % Eosinophils % (Manual) 0 % Basophils % (Manual) 0 % Band Neutrophils 1 % Blood Morphology Comment NORMAL Diagnosis/Problems Diagnosis/Problems (1) Persistent atrial fibrillation Assessment & Plan: She has had previous atrial flutter and fibrillation ablations. She is now back in recurrent atrial fibrillation. Her heart rate seem to be reasonably controlled with combination of diltiazem and metoprolol succinate. In light of the elevated blood pressure, I will increase the dose of metoprolol succinate. We will continue apixaban for stroke prophylaxis. She is awaiting a consultation at [facility] for consideration of recurrent atrial fibrillation ablation. (2) Chronic diastolic heart failure Assessment & Plan: At this point, it appears as though the primary problem with her breathing during this admission is bronchitis as opposed to worsening heart failure. We can continue the intravenous Lasix and reassess tomorrow. I will obtain a follow-up chest x-ray in the morning. (3) Coronary artery disease without angina pectoris Assessment & Plan: She had mild coronary artery disease at previous catheterization noted by Dr. Ang. She is not having any angina. Continue beta-coy and statin medication. No aspirin because she is taking apixaban for the atrial fibrillation (4) Primary hypertension Assessment & Plan: Blood pressures are intermittently elevated. I will increase the dose of metoprolol succinate and give her an extra dose today. (5) Mixed hyperlipidemia (6) Morbid obesity Assessment & Plan: She needs to work on weight loss. There is data the has shown 20 pounds weight loss can help reduce the risk of recurrent atrial fibrillation, assuming that she will have a successful atrial fibrillation ablation. AMINA LARA JR, MD Apr 19, 2021 16:11
[2021-04-19 16:18] LABS: TRIGLYCERIDES 75 MG/DL (<150); VLDL CHOLESTEROL 15 MG/DL (5-40)
[2021-04-19 16:23] LABS: CHOLESTEROL 142 MG/DL (< 200)
[2021-04-19 16:24] LABS: HDL CHOLESTEROL 54 MG/DL (40-60)
--- NOTE | 2021-04-19 19:16 | Diagnostic Imaging Report ---
EXAMINATION: Chest 2 view. HISTORY: 12/19/2018. COMPARISON: None available. FINDINGS: Heart size and pulmonary vasculature are mildly enlarged. The lungs are clear without consolidation, pleural effusion, or pneumothorax. Degenerative changes of the thoracic spine. Osseous structures are otherwise intact. IMPRESSION: No acute radiographic abnormality in the chest. Dictated by: Dictated on workstation # [id number]
[2021-04-19] MEDS: MONTELUKAST 10 MG (SINGULAIR) TAB PO SCH (20:00)
[2021-04-19] MEDS: traZODone 50 MG (DESYREL) TAB PO SCH (20:00)
[2021-04-19] MEDS: doxAzosin 2 MG (CARDURA) TAB PO SCH (20:00)
[2021-04-19] MEDS: ALPRAZolam 0.25 MG (XANAX) TAB PO PRN (20:05)
[2021-04-20] VITALS (7 sets, daily range): BP systolic 143–187; BP diastolic 68–88
[2021-04-20] MEDS: cloNIDine 0.1 MG (CATAPRES) TAB PO PRN (03:53)
[2021-04-20 06:37] LABS: BASOPHILS % (AUTO) 0 % (0-10); EOSINOPHILS % (AUTO) 0 % (0-10); HEMATOCRIT 40 % (35-52); HEMOGLOBIN 13.5 g/dL (11.5-16.0); LYMPHOCYTES # (AUTO) 0.8 10^3/uL (1.0-4.0); LYMPHOCYTES % (AUTO) 5 % (12-44); MEAN CORPUSCULAR HEMOGLOBIN 29 pg (25-34); MEAN CORPUSCULAR HGB CONC 34 g/dL (32-36); MEAN CORPUSCULAR VOLUME 88 fL (80-99); MEAN PLATELET VOLUME 10.1 fL (9.0-12.2); MONOCYTES # (AUTO) 0.4 10^3/uL (0.0-1.0); MONOCYTES % (AUTO) 3 % (0-12); NEUTROPHILS # (AUTO) 13.5 10^3/uL (1.8-7.8); NEUTROPHILS % (AUTO) 88 % (42-75); PLATELET COUNT 230 10^3/uL (130-400); WHITE BLOOD COUNT 15.3 10^3/uL (4.3-11.0)
--- NOTE | 2021-04-20 06:37 | Progress Note ---
Subjective Date Seen by a Provider: Apr 20, 2021 Time Seen by a Provider: 12:00 Subjective/Events-last exam Patient feeling much better Increased air expansion on exam No major issues Blood pressure much improved Check meds and labs Review of Systems General: Fatigue Pulmonary: Dyspnea Focused Exam Lactate Level 04/17/21 17:25: Lactic Acid Level 1.00 Objective Exam Last Set of Vital Signs Vital Signs Date Time Temp Pulse Resp B/P (MAP) Pulse Ox O2 Delivery O2 Flow Rate FiO2 04/20/21 04:24 36.0 53 20 187/76 (113) 96 Room Air 04/19/21 22:55 28 04/19/21 07:40 2.00 Capillary Refill : I&O Intake and Output 04/20/21 00:00 Intake Total 3510 ml Balance 3510 ml Intake Oral 3510 ml # Voids 7 General: Alert, Oriented X3, Cooperative, No Acute Distress Lungs: Other (Minimal wheezing) Heart: Regular Rate Neuro: Normal Gait, Normal Speech, Strength at 5/5 X4 Ext Psych/Mental Status: Mental Status NL Results Lab Laboratory Tests 04/20/21 05:38: Microbiology 04/17/21 Blood Culture - Preliminary, Resulted No growth Assessment/Plan Assessment/Plan Assess & Plan/Chief Complaint Assessment: Acute exacerbation of COPD failed outpatient treatment Recurrence of atrial fibrillation status post ablations in process of seeing Dr. 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
[2021-04-20 06:52] LABS: ALBUMIN 3.4 GM/DL (3.2-4.5); POTASSIUM 3.6 MMOL/L (3.6-5.0)
[2021-04-20 06:53] LABS: CALCIUM 8.7 MG/DL (8.5-10.1)
[2021-04-20 06:55] LABS: TOTAL PROTEIN 5.5 GM/DL (6.4-8.2)
[2021-04-20 06:56] LABS: BILIRUBIN,TOTAL 0.5 MG/DL (0.1-1.0)
[2021-04-20 06:58] LABS: CREATININE SERUM 0.78 MG/DL (0.60-1.30)
[2021-04-20] MEDS: RT-ALBUTEROL/IPRATROPIUM 3 ML (DUONEB) VIAL INH SCH ×2 (08:12→20:29)
[2021-04-20] MEDS: RT--FLUTICASONE/SALMETEROL 113-14 (AIRDUO RespiCLICK) IH SCH ×2 (08:13→20:29)
[2021-04-20] MEDS ORDERED: meTOproloL SUCCINATE 50 MG (TOPROL XL) TAB PO SCH (09:00)
[2021-04-20] MEDS: methylPREDNISolone 125 MG (Solu-MEDROL) VIAL IVP SCH ×2 (09:13→20:33)
[2021-04-20] MEDS: FUROSEMIDE 40 MG/4 ML INJ (LASIX) IVP SCH (09:13)
[2021-04-20] MEDS: ESTRADIOL 1 MG TAB (ESTRACE) PO SCH (09:14)
[2021-04-20] MEDS: VITAMIN D3 125 MCG (5,000 UNITS) CAPSULE PO SCH (09:14)
[2021-04-20] MEDS: LORATADINE (CLARITIN) 10 MG TAB PO SCH (09:14)
[2021-04-20] MEDS: lisINopril 20 MG (PRINIVIL) TABLET PO SCH (09:14)
[2021-04-20] MEDS: APIXABAN 5 MG (ELIQUIS) TABLET PO SCH ×2 (09:14→20:33)
[2021-04-20] MEDS: SENNA W/DOCUSATE (SENOKOT S) TABLET PO SCH ×2 (09:14→20:33)
[2021-04-20] MEDS: SERTRALINE 100 MG (ZOLOFT) TAB PO SCH (09:15)
[2021-04-20] MEDS: hydrALAZINE (APRESOLINE) 25 MG TAB PO SCH ×3 (09:53→20:33)
--- NOTE | 2021-04-20 09:54 | Cardiology Progress Note ---
Progress Note-Cardiology Events since last exam Date Seen by Provider: Apr 20, 2021 Time Seen by Provider: 15:04 Events since last exam We are following her for atrial fibrillation. She seems to be intermittently going in and out of atrial fibrillation. She feels as though her breathing is nearly back to baseline. She has almost no wheezing. She denies chest pain, palpitations, syncope, or ankle edema. Certain portions of this document may have been dictated utilizing voice recognition technology. Inherent to this technology, typographical and grammatical errors may exist. As much as I am diligent to identify and correct these mistakes, some errors may remain in the document. Vitals Last set of Vitals Signs Vital Signs 04/19/21 04/19/21 04/20/21 04/20/21 07:40 22:55 11:32 12:46 Temp 35.7 Pulse 49 Resp 20 B/P (MAP) 143/79 (100) Pulse Ox 94 O2 Delivery Room Air O2 Flow Rate 2.00 FiO2 28 Labs Labs Laboratory Tests 04/20/21 05:38 Exam Vital Signs Vital Signs Date Time Temp Pulse Resp B/P (MAP) Pulse Ox O2 Delivery O2 Flow Rate FiO2 04/20/21 12:46 49 04/20/21 11:32 35.7 20 143/79 (100) 94 Room Air 04/19/21 22:55 28 04/19/21 07:40 2.00 Physical Exam General: Alert. No acute distress. She is obese. Eye: No xanthelasma. HENT: Normocephalic. Neck: Jugular venous pressure does not appear elevated. Respiratory: Lungs are clear to auscultation. Respirations are non-labored. Breath sounds are equal. Symmetrical chest wall expansion. Cardiovascular: Bradycardic. Regular rhythm. No murmur. No gallop. No edema. Gastrointestinal: Soft. Normal bowel sounds. Skin: Warm. Dry. Neurologic: Alert and oriented to person, place, time. Cranial nerves 3-11 grossly intact. Psychiatric: Cooperative. Appropriate mood & affect. Labs Laboratory Tests Test 04/20/21 05:38 Range/Units White Blood Count 15.3 H 4.3-11.0 10^3/uL Red Blood Count 4.60 3.80-5.11 10^6/uL Hemoglobin 13.5 11.5-16.0 g/dL Hematocrit 40 35-52 % Mean Corpuscular Volume 88 80-99 fL Mean Corpuscular Hemoglobin 29 25-34 pg Mean Corpuscular Hemoglobin Concent 34 32-36 g/dL Red Cell Distribution Width 13.2 10.0-14.5 % Platelet Count 230 130-400 10^3/uL Mean Platelet Volume 10.1 9.0-12.2 fL Immature Granulocyte % (Auto) 3 % Neutrophils (%) (Auto) 88 H 42-75 % Lymphocytes (%) (Auto) 5 L 12-44 % Monocytes (%) (Auto) 3 0-12 % Eosinophils (%) (Auto) 0 0-10 % Basophils (%) (Auto) 0 0-10 % Neutrophils # (Auto) 13.5 H 1.8-7.8 10^3/uL Lymphocytes # (Auto) 0.8 L 1.0-4.0 10^3/uL Monocytes # (Auto) 0.4 0.0-1.0 10^3/uL Eosinophils # (Auto) 0.0 0.0-0.3 10^3/uL Basophils # (Auto) 0.0 0.0-0.1 10^3/uL Immature Granulocyte # (Auto) 0.5 H 0.0-0.1 10^3/uL Sodium Level 141 135-145 MMOL/L Potassium Level 3.6 3.6-5.0 MMOL/L Chloride Level 106 98-107 MMOL/L Carbon Dioxide Level 24 21-32 MMOL/L Anion Gap 11 5-14 MMOL/L Blood Urea Nitrogen 28 H 7-18 MG/DL Creatinine 0.78 0.60-1.30 MG/DL Estimat Glomerular Filtration Rate 72 BUN/Creatinine Ratio 36 Glucose Level 143 H 70-105 MG/DL Calcium Level 8.7 8.5-10.1 MG/DL Corrected Calcium 9.2 8.5-10.1 MG/DL Total Bilirubin 0.5 0.1-1.0 MG/DL Aspartate Amino Transf (AST/SGOT) 8 5-34 U/L Alanine Aminotransferase (ALT/SGPT) 13 0-55 U/L Alkaline Phosphatase 60 40-136 U/L Total Protein 5.5 L 6.4-8.2 GM/DL Albumin 3.4 3.2-4.5 GM/DL Diagnosis/Problems Diagnosis/Problems (1) Persistent atrial fibrillation Assessment & Plan: She has had previous atrial flutter and fibrillation ablations. She seems to be alternating between atrial fibrillation, sinus rhythm and at times even perhaps junctional rhythm. With the combination of metoprolol and diltiazem, she had been having bradycardia down into the 40 bpm range. Furthermore, the metoprolol could have been worsening her symptoms from her underlying pulmonary disease. I discontinued the metoprolol on 04/19. Today her breathing seems better. Continue diltiazem. We will continue apixaban for stroke prophylaxis. She is awaiting a consultation at [facility] for consideration of repeat atrial fibrillation ablation. (2) Bradycardia Assessment & Plan: She was having fairly significant bradycardia with the combination of beta-coy and diltiazem. As above, I discontinued the metoprolol on 04/19. If she starts to develop tachycardia, then we can consider increasing the diltiazem as opposed to adding on the beta-coy. She most likely has some degree of sinus node dysfunction and/or or AV marla dysfunction in light of the bradycardia. However, I do not see any strong indication for permanent pacemaker at this time. (3) Chronic diastolic heart failure Assessment & Plan: GroverAt this point, it appears as though the primary problem with her breathing during this admission is bronchitis as opposed to worsening heart failure. Her chest x-ray from 04/19 was improved. I will change her furosemide from intravenous to oral. She may want to take this every day as opposed to as needed when she is discharged. (4) Coronary artery disease without angina pectoris Assessment & Plan: She had mild coronary artery disease at previous catheterization noted by Dr. Ang. She is not having any angina. Continue diltiazem and statin medication. As above, I stopped the beta-coy due to bradycardia. No aspirin because she is taking apixaban for the atrial fibrillation (5) Primary hypertension Assessment & Plan: Blood pressures are still intermittently elevated. I had tried to increase her metoprolol but this made her bradycardia more severe and the metoprolol was discontinued. I have taken the liberty of increasing her lisinopril. (6) Morbid obesity Assessment & Plan: She needs to work on weight loss. There is data that has shown 20 pounds o weight loss can help reduce the risk of recurrent atrial fibrillation, assuming that she will have a successful atrial fibrillation ablation. AMINA LARA JR, MD Apr 20, 2021 09:54
[2021-04-20] MEDS: ALPRAZolam 0.25 MG (XANAX) TAB PO PRN (20:33)
[2021-04-20] MEDS: doxAzosin 2 MG (CARDURA) TAB PO SCH (20:33)
[2021-04-20] MEDS: traZODone 50 MG (DESYREL) TAB PO SCH (20:33)
[2021-04-20] MEDS: MONTELUKAST 10 MG (SINGULAIR) TAB PO SCH (20:33)
[2021-04-21 00:43] VITALS: BP 173/75
[2021-04-21 04:00] VITALS: BP 174/81
[2021-04-21 06:16] LABS: BASOPHILS % (AUTO) 0 % (0-10); EOSINOPHILS % (AUTO) 0 % (0-10); HEMATOCRIT 42 % (35-52); LYMPHOCYTES # (AUTO) 0.8 10^3/uL (1.0-4.0); LYMPHOCYTES % (AUTO) 5 % (12-44); MEAN CORPUSCULAR HEMOGLOBIN 29 pg (25-34); MEAN CORPUSCULAR HGB CONC 33 g/dL (32-36); MEAN CORPUSCULAR VOLUME 88 fL (80-99); MEAN PLATELET VOLUME 9.9 fL (9.0-12.2); MONOCYTES # (AUTO) 0.5 10^3/uL (0.0-1.0); MONOCYTES % (AUTO) 3 % (0-12); NEUTROPHILS % (AUTO) 87 % (42-75); PLATELET COUNT 242 10^3/uL (130-400)
[2021-04-21 06:33] LABS: ALBUMIN 3.5 GM/DL (3.2-4.5); BILIRUBIN,TOTAL 0.6 MG/DL (0.1-1.0); CALCIUM 8.8 MG/DL (8.5-10.1); CREATININE SERUM 0.79 MG/DL (0.60-1.30); POTASSIUM 3.6 MMOL/L (3.6-5.0); TOTAL PROTEIN 5.7 GM/DL (6.4-8.2)
[2021-04-21 08:00] VITALS: BP 193/70
--- NOTE | 2021-04-21 08:01 | Progress Note - Cardiology ---
Cardiology SOAP Progress Note Subjective: Sitting up in recliner Feels SOB is much better No c/o CP, palpitations Objective: I&O/Vital Signs 04/20/21 04/21/21 04/21/21 04/21/21 22:20 00:43 01:00 04:00 Temp 36.0 36.0 Pulse 51 48 55 Resp 18 18 B/P (MAP) 156/74 (101) 173/75 (107) 174/81 (112) Pulse Ox 96 96 O2 Delivery Room Air Room Air 04/21/21 04/21/21 06:43 08:00 Temp 36.1 Pulse 46 57 Resp 18 B/P (MAP) 193/70 (111) Pulse Ox 96 O2 Delivery Room Air 04/21/21 00:00 Intake Total 1930 ml Balance 1930 ml Weight (Pounds): 291 Weight (Ounces): 6.0 Weight (Calculated Kilograms): 132.452180 Constitutional: AAO x 3, well-developed, well-nourished Respiratory: No accessory muscle use; other (Generally diminished air entry, prolonged exp, expiratory wheezes and rhonchi) Cardiovascular: irregularly irregular, S1 and S2, systolic murmur (soft [place] at card base) Gastrointestional: No tender; soft; No guarding, No rebound; audible bowel sounds Extremities: No clubbing, No cyanosis; no lower extremity edema bilateral Neurologic/Psychiatric: oriented x 3, other (moves all her limbs equally) Skin: No rash on exposed areas, No ulcerations on exposed areas Results/Procedures: Labs Laboratory Tests 04/21/21 05:20: White Blood Count 15.0H, Red Blood Count 4.78, Hemoglobin 14.0, Hematocrit 42, Mean Corpuscular Volume 88, Mean Corpuscular Hemoglobin 29, Mean Corpuscular Hemoglobin Concent 33, Red Cell Distribution Width 13.4, Platelet Count 242, Mean Platelet Volume 9.9, Immature Granulocyte % (Auto) 5, Neutrophils (%) (Auto) 87H, Lymphocytes (%) (Auto) 5L, Monocytes (%) (Auto) 3, Eosinophils (%) (Auto) 0, Basophils (%) (Auto) 0, Neutrophils # (Auto) 13.0H, Lymphocytes # (Auto) 0.8L, Monocytes # (Auto) 0.5, Eosinophils # (Auto) 0.0, Basophils # (Auto) 0.0, Immature Granulocyte # (Auto) 0.7H, Sodium Level 141, Potassium Level 3.6, Chloride Level 106, Carbon Dioxide Level 22, Anion Gap 13, Blood Urea Nitrogen 31H, Creatinine 0.79, Estimat Glomerular Filtration Rate 71, BUN/Creatinine Ratio 39, Glucose Level 155H, Calcium Level 8.8, Corrected Calcium 9.2, Total Bilirubin 0.6, Aspartate Amino Transf (AST/SGOT) 10, Alanine Aminotransferase (ALT/SGPT) 17, Alkaline Phosphatase 65, Total Protein 5.7L, Albumin 3.5 Microbiology 04/17/21 Blood Culture - Preliminary, Resulted No growth A/P: Assessment: Acute asthmatic bronchitis Paroxysmal A fib and typical A flutter - first documented on 09-30-18 at [facility]). Placed on flecainide at [facility] on 09/30/18 - has had typical atrial flutter ablation by Dr Thompson on 01/30/19 - has had ILR placement by Dr Thompson n 04/06/19 - Post a-fib ablation on 05-22-2019 by . Now off flecainide - ILR interrogation of Feb 2021 showed episodes of a-fib with RVR in January - awaiting apptt at [facility] for recurrent a fib at [facility] (Dr Thompson) - OAC with Eliquis CAD - Minor coronary artery disease per cardiac catheterization of July 2006. - MPI of 01/17/15 did not show ischemia or infarction, and LVEF was 54% - Echo 12/16/18 showed LVEF 60-65%, mild MR, RVSP 25 mmHg Abnormal ECG - RBBB, chronic History of bronchial asthma - managed by PCP Hyperlipidemia - being treated and being followed by Dr. Broderick. Glucose intolerance - being managed by Dr. Broderick Hypertension - not well controlled at the time of this admission Obesity - Elevated body mass index of approximately 44 Chronic diastolic CHF - clinically compensated Carotid dz - Minimal carotid arterial disease on carotid u/s of 03/09/17 H/o mild pulmonary hypertension - probable related to obesity-hypoventilation syndrome due to body habitus, improved since treatment of ADOLPH. Obstructive sleep apnea syndrome - treated with C-PAP therapy. History of overactive bladder and urinary incontinence - S/p botox injection in September 2017 and Mar 2019 by her urologist in [facility] in [place]. Orthopedic - Left knee and R hip replacement. Plan: * Continue long-acting diltiazem for ventricular rate control * BB dc'd over the weekend d/t asymptomatic bradycardia * BP not well controlled * Start Norvasc * Dr. Broderick managing ac asthmatic bronchitis * Monitor labs * Replace electrolytes as indicated RASHAUN HORN Apr 21, 2021 08:01
[2021-04-21] MEDS: ESTRADIOL 1 MG TAB (ESTRACE) PO SCH (08:14)
[2021-04-21] MEDS: VITAMIN D3 125 MCG (5,000 UNITS) CAPSULE PO SCH (08:14)
[2021-04-21] MEDS: APIXABAN 5 MG (ELIQUIS) TABLET PO SCH (08:15)
[2021-04-21] MEDS: hydrALAZINE (APRESOLINE) 25 MG TAB PO SCH (08:15)
[2021-04-21] MEDS: LORATADINE (CLARITIN) 10 MG TAB PO SCH (08:15)
[2021-04-21] MEDS: SERTRALINE 100 MG (ZOLOFT) TAB PO SCH (08:19)
[2021-04-21] MEDS: SENNA W/DOCUSATE (SENOKOT S) TABLET PO SCH (08:20)
[2021-04-21] MEDS ORDERED: FUROSEMIDE 40 MG (LASIX) TAB PO SCH (09:00)
[2021-04-21] MEDS ORDERED: methylPREDNISolone 125 MG (Solu-MEDROL) VIAL IVP SCH (09:00)
[2021-04-21] MEDS ORDERED: lisINopril 20 MG (PRINIVIL) TABLET PO SCH (09:00)
[2021-04-21] MEDS ORDERED: HYDR-3923 PO (09:03)
[2021-04-21] MEDS ORDERED: PRED10TA22 PO (09:03)
[2021-04-21] MEDS ORDERED: LISI20TA26 PO (09:03)
--- NOTE | 2021-04-21 09:03 | Discharge Summary ---
Diagnosis/Chief Complaint Date of Admission Apr 17, 2021 at 16:27 Date of Discharge Discharge Date: Apr 21, 2021 Discharge Diagnosis Assessment: Acute exacerbation of COPD failed outpatient treatment Recurrence of atrial fibrillation status post ablations in process of seeing Dr. 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 Hoyt at , and morbid obesity who presented to my clinic with shortness of breath and wheezing. She had just had a Covid test that was negative at urgent care. Chest x-ray did not show any infiltrate so antibiotics were discontinued. Today she feels better but still very wheezy. Discharge Summary Discharge Physical Examination Allergies: Coded Allergies: sulfamethoxazole (Verified Allergy, Intermediate, rash, SOB, 10/23/18) trimethoprim (Verified Allergy, Intermediate, rash, SOB, 10/23/18) cephalexin (Verified Allergy, Unknown, 10/02/18) Vitals & I&Os Vital Signs Date Time Temp Pulse Resp B/P (MAP) Pulse Ox O2 Delivery O2 Flow Rate FiO2 04/21/21 12:00 36.9 83 20 180/82 (114) 91 Room Air 04/19/21 22:55 28 04/19/21 07:40 2.00 General Appearance: Alert, Oriented X3, Cooperative Respiratory: Other (Minimal wheeze) Cardiovascular: Other (Bradycardic) Neuro: Normal Gait, Normal Speech, Strength at 5/5 X4 Ext Psych/Mental Status: Mental Status NL, Mood NL Hospital Course Was the Problem List Reviewed?: Yes On 04/17 a 76yo F presented with SOB on exertion at [facility] and was ad mitted here on the same day. She also complains of coughing with mucus production and wheezing. She has been having these symptoms for the past one week and went to urgent care last Wednesday. She has a PMH of asthma, HTN, and Atrial Fibrillation. Her CXR was normal and indicated no signs of pneumonia so she was discontinued off of cefepime and treated for acute asthma bronchitis. Over the next few days her symptoms improved. She was discharged on 04/21 to her home with changes to her HTN medications, prednisone taper, and a one week follow up with Dr[facility]. She was also seen by cardiology due to her reoccurring Afib. They determined that this event was not due to her Afib. She was initially started on Diltiazem and metoprolol to control her rate, but DC her metoprolol due to her low HR and increased Diltiazem. She will be kept on anticoagulation medications and will be seen in [place] to address her Afib. INOCENCIO CARCAMO Verification and Attestation of Medical Student E/M Service A medical student performed and documented this service in my presence. I reviewed and verified all information documented by the medical student and made modifications to such information, when appropriate. I personally performed the physical exam and medical decision making. Breanna Darnell, Apr 22, 2021,04:45 Labs (last 24 hrs) Laboratory Tests 04/17/21 17:25: White Blood Count 11.5H, Red Blood Count 4.86, Hemoglobin 14.2, Hematocrit 43, Mean Corpuscular Volume 88, Mean Corpuscular Hemoglobin 29, Mean Corpuscular Hemoglobin Concent 33, Red Cell Distribution Width 13.2, Platelet Count 245, Mean Platelet Volume 9.7, Immature Granulocyte % (Auto) 2, Neutrophils (%) (Auto) 83H, Lymphocytes (%) (Auto) 10L, Monocytes (%) (Auto) 5, Eosinophils (%) (Auto) 0, Basophils (%) (Auto) 0, Neutrophils # (Auto) 9.6H, Lymphocytes # (Auto) 1.1, Monocytes # (Auto) 0.6, Eosinophils # (Auto) 0.0, Basophils # (Auto) 0.0, Immature Granulocyte # (Auto) 0.2H, Sodium Level 141, Potassium Level 4.1, Chloride Level 106, Carbon Dioxide Level 21, Anion Gap 14, Blood Urea Nitrogen 17, Creatinine 0.81, Estimat Glomerular Filtration Rate 69, BUN/Creatinine Ratio 21, Glucose Level 117H, Lactic Acid Level 1.00, Calcium Level 9.4, Corrected Calcium 9.3, Total Bilirubin 0.7, Aspartate Amino Transf (AST/SGOT) 16, Alanine Aminotransferase (ALT/SGPT) 23, Alkaline Phosphatase 80, Total Protein 6.5, Albumin 4.1, Procalcitonin 0.04 04/17/21 18:46: Blood Gas Puncture Site LT RADIAL, Blood Gas Patient Temperature 35.9, Arterial Blood pH 7.43, Arterial Blood Partial Pressure CO2 39, Arterial Blood Partial Pressure O2 67L, Arterial Blood HCO3 26, Arterial Blood Total CO2 27.2, Arterial Blood Oxygen Saturation 95, Arterial Blood Base Excess 1.8, Anish Test YES-POS, Blood Gas Ventilator Setting NO, Blood Gas Inspired Oxygen ROOM AIR 04/18/21 05:28: White Blood Count 9.6, Red Blood Count 4.59, Hemoglobin 13.4, Hematocrit 40, Mean Corpuscular Volume 88, Mean Corpuscular Hemoglobin 29, Mean Corpuscular Hemoglobin Concent 33, Red Cell Distribution Width 13.2, Platelet Count 234, Mean Platelet Volume 9.6, Immature Granulocyte % (Auto) 2, Neutrophils (%) (Auto) 91H, Lymphocytes (%) (Auto) 7L, Monocytes (%) (Auto) 1, Eosinophils (%) (Auto) 0, Basophils (%) (Auto) 0, Neutrophils # (Auto) 8.7H, Lymphocytes # (Auto) 0.6L, Monocytes # (Auto) 0.1, Eosinophils # (Auto) 0.0, Basophils # (Auto) 0.0, Immature Granulocyte # (Auto) 0.2H, Sodium Level 140, Potassium Level 4.1, Chloride Level 105, Carbon Dioxide Level 23, Anion Gap 12, Blood Urea Nitrogen 19H, Creatinine 0.84, Estimat Glomerular Filtration Rate 66, BUN/Creatinine Ratio 23, Glucose Level 164H, Calcium Level 9.3, Corrected Calcium 9.5, Total Bilirubin 0.7, Aspartate Amino Transf (AST/SGOT) 12, Alanine Aminotransferase (ALT/SGPT) 15, Alkaline Phosphatase 76, Total Protein 6.2L, Albumin 3.8, Neutrophils % (Manual) 90, Lymphocytes % (Manual) 9, Monocytes % (Manual) 1, Blood Morphology Comment NORMAL 04/19/21 06:20: Sodium Level 141, Potassium Level 3.9, Chloride Level 107, Carbon Dioxide Level 22, Anion Gap 12, Blood Urea Nitrogen 25H, Creatinine 0.79, Estimat Glomerular Filtration Rate 71, BUN/Creatinine Ratio 32, Glucose Level 155H, Calcium Level 9.2, Corrected Calcium 9.4, Total Bilirubin 0.5, Aspartate Amino Transf (AST/SGOT) 8, Alanine Aminotransferase (ALT/SGPT) 14, Alkaline Phosphatase 68, Total Protein 6.1L, Albumin 3.7, Triglycerides Level 75, Cholesterol Level 142, LDL Cholesterol Direct 80, VLDL Cholesterol 15, HDL Cholesterol 54 04/19/21 06:30: White Blood Count 15.0H, Red Blood Count 4.78, Hemoglobin 13.8, Hematocrit 42, Mean Corpuscular Volume 87, Mean Corpuscular Hemoglobin 29, Mean Corpuscular Hemoglobin Concent 33, Red Cell Distribution Width 13.2, Platelet Count 225, Mean Platelet Volume 9.8, Immature Granulocyte % (Auto) 2, Neutrophils (%) (Auto) 90H, Lymphocytes (%) (Auto) 6L, Monocytes (%) (Auto) 2, Eosinophils (%) (Auto) 0, Basophils (%) (Auto) 0, Neutrophils # (Auto) 13.5H, Lymphocytes # (Auto) 0.9L, Monocytes # (Auto) 0.3, Eosinophils # (Auto) 0.0, Basophils # (Auto) 0.0, Immature Granulocyte # (Auto) 0.3H, Neutrophils % (Manual) 88, Lymphocytes % (Manual) 6, Monocytes % (Manual) 5, Eosinophils % (Manual) 0, Basophils % (Manual) 0, Band Neutrophils 1, Blood Morphology Comment NORMAL 04/20/21 05:38: White Blood Count 15.3H, Red Blood Count 4.60, Hemoglobin 13.5, Hematocrit 40, Mean Corpuscular Volume 88, Mean Corpuscular Hemoglobin 29, Mean Corpuscular Hemoglobin Concent 34, Red Cell Distribution Width 13.2, Platelet Count 230, Mean Platelet Volume 10.1, Immature Granulocyte % (Auto) 3, Neutrophils (%) (Auto) 88H, Lymphocytes (%) (Auto) 5L, Monocytes (%) (Auto) 3, Eosinophils (%) (Auto) 0, Basophils (%) (Auto) 0, Neutrophils # (Auto) 13.5H, Lymphocytes # (Auto) 0.8L, Monocytes # (Auto) 0.4, Eosinophils # (Auto) 0.0, Basophils # (Auto) 0.0, Immature Granulocyte # (Auto) 0.5H, Sodium Level 141, Potassium Level 3.6, Chloride Level 106, Carbon Dioxide Level 24, Anion Gap 11, Blood Urea Nitrogen 28H, Creatinine 0.78, Estimat Glomerular Filtration Rate 72, BUN/Creatinine Ratio 36, Glucose Level 143H, Calcium Level 8.7, Corrected Calcium 9.2, Total Bilirubin 0.5, Aspartate Amino Transf (AST/SGOT) 8, Alanine Aminotransferase (ALT/SGPT) 13, Alkaline Phosphatase 60, Total Protein 5.5L, Albumin 3.4 04/21/21 05:20: White Blood Count 15.0H, Red Blood Count 4.78, Hemoglobin 14.0, Hematocrit 42, Mean Corpuscular Volume 88, Mean Corpuscular Hemoglobin 29, Mean Corpuscular Hemoglobin Concent 33, Red Cell Distribution Width 13.4, Platelet Count 242, Mean Platelet Volume 9.9, Immature Granulocyte % (Auto) 5, Neutrophils (%) (Auto) 87H, Lymphocytes (%) (Auto) 5L, Monocytes (%) (Auto) 3, Eosinophils (%) (Auto) 0, Basophils (%) (Auto) 0, Neutrophils # (Auto) 13.0H, Lymphocytes # (Auto) 0.8L, Monocytes # (Auto) 0.5, Eosinophils # (Auto) 0.0, Basophils # (Auto) 0.0, Immature Granulocyte # (Auto) 0.7H, Sodium Level 141, Potassium Level 3.6, Chloride Level 106, Carbon Dioxide Level 22, Anion Gap 13, Blood Urea Nitrogen 31H, Creatinine 0.79, Estimat Glomerular Filtration Rate 71, BUN/Creatinine Ratio 39, Glucose Level 155H, Calcium Level 8.8, Corrected Calcium 9.2, Total Bilirubin 0.6, Aspartate Amino Transf (AST/SGOT) 10, Alanine Aminotransferase (ALT/SGPT) 17, Alkaline Phosphatase 65, Total Protein 5.7L, Albumin 3.5 Microbiology 04/17/21 Blood Culture - Preliminary, Resulted No growth Pending Labs Microbiology Date/Time Source Procedure Growth Status 04/17/21 17:35 Peripheral :Lab Indicates After Collectio Blood Culture - Preliminary No growth Resulted 04/17/21 17:25 Peripheral Lt Hand Blood Culture - Preliminary No growth Resulted Laboratory Tests 04/17/21 17:25: White Blood Count 11.5, Red Blood Count 4.86, Hemoglobin 14.2, Hematocrit 43, Mean Corpuscular Volume 88, Mean Corpuscular Hemoglobin 29, Mean Corpuscular Hemoglobin Concent 33, Red Cell Distribution Width 13.2, Platelet Count 245, Mean Platelet Volume 9.7, Immature Granulocyte % (Auto) 2, Neutrophils (%) (A uto) 83, Lymphocytes (%) (Auto) 10, Monocytes (%) (Auto) 5, Eosinophils (%) (Auto) 0, Basophils (%) (Auto) 0, Neutrophils # (Auto) 9.6, Lymphocytes # (Auto) 1.1, Monocytes # (Auto) 0.6, Eosinophils # (Auto) 0.0, Basophils # (Auto) 0.0, Immature Granulocyte # (Auto) 0.2, Sodium Level 141, Potassium Level 4.1, Chloride Level 106, Carbon Dioxide Level 21, Anion Gap 14, Blood Urea Nitrogen 17, Creatinine 0.81, Estimat Glomerular Filtration Rate 69, BUN/Creatinine Ratio 21, Glucose Level 117, Lactic Acid Level 1.00, Calcium Level 9.4, Corrected Calcium 9.3, Total Bilirubin 0.7, Aspartate Amino Transf (AST/SGOT) 16, Alanine Aminotransferase (ALT/SGPT) 23, Alkaline Phosphatase 80, Total Protein 6.5, Albumin 4.1, Procalcitonin 0.04 04/17/21 18:46: Blood Gas Puncture Site LT RADIAL, Blood Gas Patient Temperature 35.9, Arterial Blood pH 7.43, Arterial Blood Partial Pressure CO2 39, Arterial Blood Partial Pressure O2 67, Arterial Blood HCO3 26, Arterial Blood Total CO2 27.2, Arterial Blood Oxygen Saturation 95, Arterial Blood Base Excess 1.8, Anish Test YES-POS, Blood Gas Ventilator Setting NO, Blood Gas Inspired Oxygen ROOM AIR 04/18/21 05:28: White Blood Count 9.6, Red Blood Count 4.59, Hemoglobin 13.4, Hematocrit 40, Mean Corpuscular Volume 88, Mean Corpuscular Hemoglobin 29, Mean Corpuscular Hemoglobin Concent 33, Red Cell Distribution Width 13.2, Platelet Count 234, Mean Platelet Volume 9.6, Immature Granulocyte % (Auto) 2, Neutrophils (%) (Auto) 91, Lymphocytes (%) (Auto) 7, Monocytes (%) (Auto) 1, Eosinophils (%) (Auto) 0, Basophils (%) (Auto) 0, Neutrophils # (Auto) 8.7, Lymphocytes # (Auto) 0.6, Monocytes # (Auto) 0.1, Eosinophils # (Auto) 0.0, Basophils # (Auto) 0.0, Immature Granulocyte # (Auto) 0.2, Sodium Level 140, Potassium Level 4.1, Chloride Level 105, Carbon Dioxide Level 23, Anion Gap 12, Blood Urea Nitrogen 19, Creatinine 0.84, Estimat Glomerular Filtration Rate 66, BUN/Creatinine Ratio 23, Glucose Level 164, Calcium Level 9.3, Corrected Calcium 9.5, Total Bilirubin 0.7, Aspartate Amino Transf (AST/SGOT) 12, Alanine Aminotransferase (ALT/SGPT) 15, Alkaline Phosphatase 76, Total Protein 6.2, Albumin 3.8, Neutrophils % (Manual) 90, Lymphocytes % (Manual) 9, Monocytes % (Manual) 1, Blood Morphology Comment NORMAL 04/19/21 06:20: Sodium Level 141, Potassium Level 3.9, Chloride Level 107, Carbon Dioxide Level 22, Anion Gap 12, Blood Urea Nitrogen 25, Creatinine 0.79, Estimat Glomerular Filtration Rate 71, BUN/Creatinine Ratio 32, Glucose Level 155, Calcium Level 9.2, Corrected Calcium 9.4, Total Bilirubin 0.5, Aspartate Amino Transf (AST/SGOT) 8, Alanine Aminotransferase (ALT/SGPT) 14, Alkaline Phosphatase 68, Total Protein 6.1, Albumin 3.7, Triglycerides Level 75, Cholesterol Level 142, LDL Cholesterol Direct 80, VLDL Cholesterol 15, HDL Cholesterol 54 04/19/21 06:30: White Blood Count 15.0, Red Blood Count 4.78, Hemoglobin 13.8, Hematocrit 42, Mean Corpuscular Volume 87, Mean Corpuscular Hemoglobin 29, Mean Corpuscular Hemoglobin Concent 33, Red Cell Distribution Width 13.2, Platelet Count 225, Mean Platelet Volume 9.8, Immature Granulocyte % (Auto) 2, Neutrophils (%) (Auto) 90, Lymphocytes (%) (Auto) 6, Monocytes (%) (Auto) 2, Eosinophils (%) (Auto) 0, Basophils (%) (Auto) 0, Neutrophils # (Auto) 13.5, Lymphocytes # (Auto) 0.9, Monocytes # (Auto) 0.3, Eosinophils # (Auto) 0.0, Basophils # (Auto) 0.0, Immature Granulocyte # (Auto) 0.3, Neutrophils % (Manual) 88, Lymphocytes % (Manual) 6, Monocytes % (Manual) 5, Eosinophils % (Manual) 0, Basophils % (Manual) 0, Band Neutrophils 1, Blood Morphology Comment NORMAL 04/20/21 05:38: White Blood Count 15.3, Red Blood Count 4.60, Hemoglobin 13.5, Hematocrit 40, Mean Corpuscular Volume 88, Mean Corpuscular Hemoglobin 29, Mean Corpuscular Hemoglobin Concent 34, Red Cell Distribution Width 13.2, Platelet Count 230, Mean Platelet Volume 10.1, Immature Granulocyte % (Auto) 3, Neutrophils (%) (Auto) 88, Lymphocytes (%) (Auto) 5, Monocytes (%) (Auto) 3, Eosinophils (%) (Auto) 0, Basophils (%) (Auto) 0, Neutrophils # (Auto) 13.5, Lymphocytes # (Auto) 0.8, Monocytes # (Auto) 0.4, Eosinophils # (Auto) 0.0, Basophils # (Auto) 0.0, Immature Granulocyte # (Auto) 0.5, Sodium Level 141, Potassium Level 3.6, Chloride Level 106, Carbon Dioxide Level 24, Anion Gap 11, Blood Urea Nitrogen 28, Creatinine 0.78, Estimat Glomerular Filtration Rate 72, BUN/Creatinine Ratio 36, Glucose Level 143, Calcium Level 8.7, Corrected Calcium 9.2, Total Bilirubin 0.5, Aspartate Amino Transf (AST/SGOT) 8, Alanine Aminotransferase (ALT/SGPT) 13, Alkaline Phosphatase 60, Total Protein 5.5, Albumin 3.4 04/21/21 05:20: White Blood Count 15.0, Red Blood Count 4.78, Hemoglobin 14.0, Hematocrit 42, Mean Corpuscular Volume 88, Mean Corpuscular Hemoglobin 29, Mean Corpuscular Hemoglobin Concent 33, Red Cell Distribution Width 13.4, Platelet Count 242, Mean Platelet Volume 9.9, Immature Granulocyte % (Auto) 5, Neutrophils (%) (Auto) 87, Lymphocytes (%) (Auto) 5, Monocytes (%) (Auto) 3, Eosinophils (%) (Auto) 0, Basophils (%) (Auto) 0, Neutrophils # (Auto) 13.0, Lymphocytes # (Auto) 0.8, Monocytes # (Auto) 0.5, Eosinophils # (Auto) 0.0, Basophils # (Auto) 0.0, Immature Granulocyte # (Auto) 0.7, Sodium Level 141, Potassium Level 3.6, Chloride Level 106, Carbon Dioxide Level 22, Anion Gap 13, Blood Urea Nitrogen 31, Creatinine 0.79, Estimat Glomerular Filtration Rate 71, BUN/Creatinine Ratio 39, Glucose Level 155, Calcium Level 8.8, Corrected Calcium 9.2, Total Bilirubin 0.6, Aspartate Amino Transf (AST/SGOT) 10, Alanine Aminotransferase (ALT/SGPT) 17, Alkaline Phosphatase 65, Total Protein 5.7, Albumin 3.5 Discharge Home Medications: Active Scripts Active Iprat-Albut 0.5-3(2.5) mg/3 ml (Ipratropium/Albuterol Sulfate) 3 Ml Ampul.neb 3 Ml INH RTBID Norvasc (Amlodipine Besylate) 10 Mg Tablet 10 Mg PO DAILY Prednisone 10 Mg Tab.ds.pk 10 Mg PO DAILY Take 6 tabs(60mg)daily,decrease by 1 tab(10MG)daily. Lisinopril 20 Mg Tablet 40 Mg PO DAILY Hydralazine HCl 25 Mg Tablet 25 Mg PO TID Reported ALPRAZolam 0.25 Mg Tablet 0.25 Mg PO Q8H PRN Docusate Sodium 100 Mg Capsule 100 Mg PO TID PRN Oxycodone-Acetaminophen 5-325 (Oxycodone HCl/Acetaminophen) 1 Each Tablet 1-2 Ea PO Q6H PRN Tizanidine HCl 4 Mg Tablet 4 Mg PO TID PRN Baclofen 10 Mg Tablet 10 Mg PO BID PRN Potassium Chloride 10 Meq Capsule.er 20 Meq PO DAILY PRN TAKES 2 (10MEQ) CAPS Vitamin D3 (Cholecalciferol (Vitamin D3)) 125 Mcg/1 Ml Drops 125 Mcg PO DAILY Furosemide 40 Mg Tablet 40 Mg PO DAILY PRN Loratadine 10 Mg Tablet 10 Mg PO DAILY Proair Hfa (Albuterol Sulfate) 1 Puff Puff 2 Puff IH Q4H PRN Diltiazem ER (Diltiazem HCl) 240 Mg Capsule.er 240 Mg PO DAILY Montelukast Sodium 10 Mg Tablet 10 Mg PO HS Atorvastatin Calcium 20 Mg Tablet 20 Mg PO HS Trazodone HCl 50 Mg Tablet 50 Mg PO HS Sertraline HCl 100 Mg Tablet 150 Mg PO DAILY TAKES 1 & 1/2 (100MG) TABLET Eliquis (Apixaban) 5 Mg Tablet 5 Mg PO BID Fluticasone Propionate 16 Gm Boyd.susp 2 Sprays NS HS PRN Advair 100-50 Diskus (Fluticasone/Salmeterol) 1 Each Blst.w.dev 1 Puff INH BID PRN Estradiol Tablet (Estradiol) 0.5 Mg Tablet 0.5 Mg PO DAILY Instructions to patient/family Please see electronic discharge instructions given to patient. BREANNA DARNELL DO Apr 21, 2021 09:03
[2021-04-21] MEDS ORDERED: AMLO10TA4 PO (09:20)
[2021-04-21] MEDS ORDERED: IPRA3AMP31 INH (09:29)
[2021-04-21] MEDS ORDERED: amLODIPine 10 MG (NORVASC) TAB PO ONE (09:30)
--- NOTE | 2021-04-21 10:06 | Progress Note ---
DARRELLLINDAINOCENCIO 04/21/21 1006: Progress Note On 04/17 a 76yo F presented with SOB on exertion at [facility] and was admitted here on the same day. She also complains of coughing with mucus production and wheezing. She has been having these symptoms for the past one week and went to urgent care last Wednesday. She has a PMH of asthma, HTN, and Atrial Fibrillation. Her CXR was normal and indicated no signs of pneumonia so she was discontinued off of cefepime and treated for acute asthma bronchitis. Over the next few days her symptoms improved. She was discharged on 04/21 to her home with changes to her HTN medications, prednisone taper, and a one week follow up with Dr[facility]. She was also seen by cardiology due to her reoccurring Afib. They determined that this event was not due to her Afib. She was initially started on Diltiazem and metoprolol to control her rate, but DC her metoprolol due to her low HR and increased Diltiazem. She will be kept on anticoagulation medications and will be seen in [place] to address her Afib. BREANNA DARNELL DO 04/22/21 0452: Supervisory-Addendum Brief Verification & Attestation Participated in pt care: history, MDM, physical Personally performed: exam, history, MDM, supervision of care Care discussed with: Medical Student Procedures: n/a Results interpretation: Verified all documentation Verification and Attestation of Medical Student E/M Service A medical student performed and documented this service in my presence. I reviewed and verified all information documented by the medical student and made modifications to such information, when appropriate. I personally performed the physical exam and medical decision making. Breanna Darnell Apr 22, 2021,04:52 INOCENCIO CARCAMO Apr 21, 2021 10:06 BREANNA DARNELL DO Apr 22, 2021 04:52
[2021-04-21] MEDS: RT-ALBUTEROL/IPRATROPIUM 3 ML (DUONEB) VIAL INH SCH (11:05)
[2021-04-21] MEDS: RT--FLUTICASONE/SALMETEROL 113-14 (AIRDUO RespiCLICK) IH SCH (11:05)
--- NOTE | 2021-04-21 11:36 | Progress Note - Cardiology ---
Cardiology SOAP Progress Note Subjective: Feels better Shortness of breath has improved No cp or palp or syncope or swelling No n/v/d Objective: I&O/Vital Signs 04/21/21 04/21/21 04/21/21 04/21/21 00:43 01:00 04:00 06:43 Temp 36.0 36.0 Pulse 51 48 55 46 Resp 18 18 B/P (MAP) 173/75 (107) 174/81 (112) Pulse Ox 96 96 O2 Delivery Room Air Room Air 04/21/21 04/21/21 04/21/21 08:00 08:00 11:06 Temp 36.1 Pulse 57 Resp 18 B/P (MAP) 193/70 (111) Pulse Ox 96 91 O2 Delivery Room Air Room Air Room Air 04/21/21 00:00 Intake Total 1930 ml Balance 1930 ml Weight (Pounds): 291 Weight (Ounces): 6.0 Weight (Calculated Kilograms): 132.379519 Constitutional: AAO x 3, well-developed, well-nourished Respiratory: No accessory muscle use; other (Generally diminished air entry, prolonged exp, expiratory wheezes and rhonchi) Cardiovascular: irregularly irregular, S1 and S2, systolic murmur (soft [place] at card base) Gastrointestional: No tender; soft; No guarding, No rebound; audible bowel sounds Extremities: No clubbing, No cyanosis; no lower extremity edema bilateral Neurologic/Psychiatric: oriented x 3, other (moves all her limbs equally) Skin: No rash on exposed areas, No ulcerations on exposed areas Results/Procedures: Labs Laboratory Tests 04/21/21 05:20: White Blood Count 15.0H, Red Blood Count 4.78, Hemoglobin 14.0, Hematocrit 42, Mean Corpuscular Volume 88, Mean Corpuscular Hemoglobin 29, Mean Corpuscular Hemoglobin Concent 33, Red Cell Distribution Width 13.4, Platelet Count 242, Mean Platelet Volume 9.9, Immature Granulocyte % (Auto) 5, Neutrophils (%) (Auto) 87H, Lymphocytes (%) (Auto) 5L, Monocytes (%) (Auto) 3, Eosinophils (%) (Auto) 0, Basophils (%) (Auto) 0, Neutrophils # (Auto) 13.0H, Lymphocytes # (Auto) 0.8L, Monocytes # (Auto) 0.5, Eosinophils # (Auto) 0.0, Basophils # (Auto) 0.0, Immature Granulocyte # (Auto) 0.7H, Sodium Level 141, Potassium Level 3.6, Chloride Level 106, Carbon Dioxide Level 22, Anion Gap 13, Blood Urea Nitrogen 31H, Creatinine 0.79, Estimat Glomerular Filtration Rate 71, BUN/Creatinine Ratio 39, Glucose Level 155H, Calcium Level 8.8, Corrected Calcium 9.2, Total Bilirubin 0.6, Aspartate Amino Transf (AST/SGOT) 10, Alanine Aminotransferase (ALT/SGPT) 17, Alkaline Phosphatase 65, Total Protein 5.7L, Albumin 3.5 Microbiology 04/17/21 Blood Culture - Preliminary, Resulted No growth Laboratory Tests 04/20/21 05:38 04/21/21 05:20 Laboratory Tests 04/20/21 05:38 04/21/21 05:20 A/P: Assessment: Acute asthmatic bronchitis Paroxysmal A fib and typical A flutter - first documented on 09-30-18 at [facility]). Placed on flecainide at [facility] on 09/30/18 - has had typical atrial flutter ablation by Dr Thompson on 01/30/19 - has had ILR placement by Dr Thompson n 04/06/19 - Post a-fib ablation on 05-22-2019 by . Now off flecainide - ILR interrogation of Feb 2021 showed episodes of a-fib with RVR in January - awaiting apptt at [facility] for recurrent a fib at [facility] (Dr Thompson) - OAC with Eliquis CAD - Minor coronary artery disease per cardiac catheterization of July 2006. - MPI of 01/17/15 did not show ischemia or infarction, and LVEF was 54% - Echo 12/16/18 showed LVEF 60-65%, mild MR, RVSP 25 mmHg Abnormal ECG - RBBB, chronic History of bronchial asthma - managed by PCP Hyperlipidemia - being treated and being followed by Dr. Broderick. Glucose intolerance - being managed by Dr. Broderick Hypertension - not well controlled at the time of this admission Obesity - Elevated body mass index of approximately 44 Chronic diastolic CHF - clinically compensated Carotid dz - Minimal carotid arterial disease on carotid u/s of 03/09/17 H/o mild pulmonary hypertension - probable related to obesity-hypoventilation syndrome due to body habitus, improved since treatment of ADOLPH. Obstructive sleep apnea syndrome - treated with C-PAP therapy. History of overactive bladder and urinary incontinence - S/p botox injection in September 2017 and Mar 2019 by her urologist in [facility] in [place]. Orthopedic - Left knee and R hip replacement. Plan: * Continue long-acting diltiazem for ventricular rate control * BB dc'd over the weekend d/t asymptomatic bradycardia * BP not well controlled * Start Norvasc * Dr. Broderick managing ac asthmatic bronchitis * Monitor labs * Replace electrolytes as indicated QAMAR GONZALEZ MD FACP FACC CCDS Apr 21, 2021 11:36
[2021-04-21 12:00] VITALS: BP 180/82
[2021-04-22] MEDS ORDERED: amLODIPine 10 MG (NORVASC) TAB PO SCH (09:00)
== END 2021-04-21 12:30 | disposition home or self-care (01) | DRG 191 ==
LOC: 4TH 16:27
PROVIDERS: ADMIT Internal Medicine; ATTEND Internal Medicine
DX: J44.1 Chronic obstructive pulmonary disease with (acute) exacerbation (principal); I48.19 Other persistent atrial fibrillation; Z68.41 Body mass index [BMI] 40.0-44.9, adult; I50.32 Chronic diastolic (congestive) heart failure; I48.92 Unspecified atrial flutter; E66.01 Morbid (severe) obesity due to excess calories; I11.0 Hypertensive heart disease with heart failure; E11.9 Type 2 diabetes mellitus without complications; I27.20 Pulmonary hypertension, unspecified; E78.2 Mixed hyperlipidemia; E78.00 Pure hypercholesterolemia, unspecified; H54.7 Unspecified visual loss; K21.9 Gastro-esophageal reflux disease without esophagitis; I25.10 Atherosclerotic heart disease of native coronary artery without angina pectoris; M19.91 Primary osteoarthritis, unspecified site; F32.9 Major depressive disorder, single episode, unspecified; I45.10 Unspecified right bundle-branch block; T38.0X5A Adverse effect of glucocorticoids and synthetic analogues, initial encounter; Z79.01 Long term (current) use of anticoagulants; Z99.81 Dependence on supplemental oxygen; Z87.01 Personal history of pneumonia (recurrent); Z88.1 Allergy status to other antibiotic agents; Z88.2 Allergy status to sulfonamides; Z82.61 Family history of arthritis; Z82.49 Family history of ischemic heart disease and other diseases of the circulatory system; Z82.2 Family history of deafness and hearing loss; Z96.652 Presence of left artificial knee joint; Z96.641 Presence of right artificial hip joint
CPT/HCPCS: 36415; 36600; 71045; 71046; 80053; 80061; 82805; 83605; 84145; 85007; 85025; 85027; 87040; 94640; 94760

== ENCOUNTER 2021-04-27 12:33 | Emergency (ER) | payer MEDICARE ==
[~2021-04-27] VITALS: Ht 170 cm; Wt 128.0 kg
[~2021-04-27 12:33] MED LIST changes: +ALPR0.254 PO; +AMLO10TA4 PO; +BACL10TA PO; +DOCU100C37 PO; +DOXY100C5 PO; +IPRA3AMP31 INH; +OXYC1TAB11 PO; +TIZA4TAB4 PO
--- NOTE | 2021-04-27 12:48 | ED General ---
General Stated Complaint: FAST HR Source of Information: Patient Exam Limitations: No Limitations History of Present Illness Date Seen by Provider: Apr 27, 2021 Time Seen by Provider: 12:44 Initial Comments To ER with c/o fast heart rate. She arrives by EMS from home. She was here last week for COPD exacerbation. No fevers no chills no chest pain. She felt her heart was racing and upon EMS arrival her heart rate was found to be 157 atrial fibrillation. The time of the ER it is fallen down to about 110 atrial fibrillation. She is on Eliquis and diltiazem at home. Timing/Duration: 4-6 Hours Severity: Moderate Associated Systoms: Denies Symptoms Allergies and Home Medications Allergies Coded Allergies: sulfamethoxazole (Verified Allergy, Intermediate, rash, SOB, 10/23/18) trimethoprim (Verified Allergy, Intermediate, rash, SOB, 10/23/18) cephalexin (Verified Allergy, Unknown, 10/02/18) Patient Home Medication List Home Medication List Reviewed: Yes ALPRAZolam (ALPRAZolam) 0.25 Mg Tablet, 0.25 MG PO Q8H PRN for ANXIETY, (Reported) Entered as Reported by: TOMI OCONNOR on 04/17/21 1700 Albuterol Sulfate (Proair Hfa) 1 Puff Puff, 2 PUFF IH Q4H PRN for SHORTNESS OF BREATH, (Reported) Entered as Reported by: EDGARDO RIVAS on 12/15/18 1531 Amlodipine Besylate (Norvasc) 10 Mg Tablet, 10 MG PO DAILY Prescribed by: RASHAUN HORN on 04/21/21 0920 Apixaban (Eliquis) 5 Mg Tablet, 5 MG PO BID, (Reported) Entered as Reported by: EDGARDO RIVAS on 10/03/18 1127 Atorvastatin Calcium (Atorvastatin Calcium) 20 Mg Tablet, 20 MG PO HS, (Reported) Entered as Reported by: EDGARDO RIVAS on 10/03/18 1127 Baclofen (Baclofen) 10 Mg Tablet, 10 MG PO BID PRN for MUSCLE SPASMS, (Reported) Entered as Reported by: TOMI OCONNOR on 04/17/21 1700 Cholecalciferol (Vitamin D3) (Vitamin D3) 125 Mcg/1 Ml Drops, 125 MCG PO DAILY, (Reported) Entered as Reported by: TOMI OCONNOR on 06/17/20 1121 Diltiazem HCl (Diltiazem ER) 240 Mg Capsule.er, 240 MG PO DAILY, (Reported) Entered as Reported by: EDGARDO RIVAS on 12/15/18 1531 Docusate Sodium (Docusate Sodium) 100 Mg Capsule, 100 MG PO TID PRN for CONSTIPATION-1ST LINE, (Reported) Entered as Reported by: TOMI OCONNOR on 04/17/21 1700 Estradiol (Estradiol Tablet) 0.5 Mg Tablet, 0.5 MG PO DAILY, (Reported) Entered as Reported by: VICTOR MANUEL DASILVA on 05/28/16 1331 Fluticasone Propionate (Fluticasone Propionate) 16 Gm [place].susp, 2 SPRAYS NS HS PRN for ALLERGIES, (Reported) Entered as Reported by: EDGARDO RIVAS on 10/03/18 112 Fluticasone/Salmeterol (Advair 100-50 Diskus) 1 Each Blst.w.dev, 1 PUFF INH BID PRN for SHORTNESS OF BREATH, (Reported) Entered as Reported by: EDGARDO RIVAS on 12/29/16 0815 Furosemide (Furosemide) 40 Mg Tablet, 40 MG PO DAILY PRN for FLUID RETENTION, (Reported) Entered as Reported by: TOMI OCONNOR on 05/22/19 0744 Hydralazine HCl (Hydralazine HCl) 25 Mg Tablet, 25 MG PO TID Prescribed by: ANAY DARNELL on 04/21/21 0903 Ipratropium/Albuterol Sulfate (Iprat-Albut 0.5-3(2.5) mg/3 ml) 3 Ml Ampul.neb, 3 ML INH RTBID Prescribed by: ANAY DARNELL on 04/21/21 0929 Lisinopril (Lisinopril) 20 Mg Tablet, 40 MG PO DAILY Prescribed by: ANAY DARNELL on 04/21/21 0903 Loratadine (Loratadine) 10 Mg Tablet, 10 MG PO DAILY, (Reported) Entered as Reported by: TOMI OCONNOR on 05/22/19 0744 Montelukast Sodium (Montelukast Sodium) 10 Mg Tablet, 10 MG PO HS, (Reported) Entered as Reported by: EDGARDO RIVAS on 10/03/18 1127 Oxycodone HCl/Acetaminophen (Oxycodone-Acetaminophen 5-325) 1 Each Tablet, 1-2 EA PO Q6H PRN for PAIN-MODERATE (5-7), (Reported) Entered as Reported by: TOMI OCONNOR on 04/17/21 1700 Potassium Chloride (Potassium Chloride) 10 Meq Capsule.er, 20 MEQ PO DAILY PRN for WHEN TAKING FUROSEMIDE, (Reported) Entered as Reported by: TOMI OCONNOR on 06/17/20 112 Prednisone (Prednisone) 10 Mg Tab.ds.pk, 10 MG PO DAILY Prescribed by: ANAY DARNELL on 04/21/21 0903 Sertraline HCl (Sertraline HCl) 100 Mg Tablet, 150 MG PO DAILY, (Reported) Entered as Reported by: EDGARDO RIVAS on 10/03/18 112 Tizanidine HCl (Tizanidine HCl) 4 Mg Tablet, 4 MG PO TID PRN for MUSCLE SPASMS, (Reported) Entered as Reported by: TOMI OCONNOR on 04/17/21 170 Trazodone HCl (Trazodone HCl) 50 Mg Tablet, 50 MG PO HS, (Reported) Entered as Reported by: EDGARDO RIVAS on 10/03/18 112 Discontinued Medications Doxazosin Mesylate (Doxazosin Mesylate) 2 Mg Tablet, 2 MG PO HS, (Reported) Entered as Reported by: EDGARDO RIVAS on 12/15/18 153 Doxycycline Hyclate (Doxycycline Hyclate) 100 Mg Capsule, 100 MG PO BID, (Reported) Entered as Reported by: TOMI OCONNOR on 04/17/21 170 Lisinopril (Lisinopril) 20 Mg Tablet, 20 MG PO DAILY, (Reported) Entered as Reported by: TOMI OCONNOR on 06/17/20 112 Metoprolol Succinate (Metoprolol Succinate) 50 Mg Tab.er.24h, 50 MG PO DAILY, (Reported) Entered as Reported by: TOMI OCONNOR on 05/22/19 0744 Review of Systems Review of Systems Constitutional: see HPI EENTM: see HPI Respiratory: see HPI; No dyspnea on exertion, No short of breath Cardiovascular: see HPI, palpitations Genitourinary: no symptoms reported Musculoskeletal: no symptoms reported Skin: no symptoms reported Psychiatric/Neurological: No Symptoms Reported Hematologic/Lymphatic: No Symptoms Reported Past Icyxlro-Avrvjx-Dcnpiv Hx Immunizations Up To Date Tetanus Booster (TDap): Less than 5yrs First/Initial COVID19 Vaccinat: SEPTEMBER 2020 Second COVID19 Vaccination Jamar: OCTOBER 2020 Seasonal Allergies Seasonal Allergies: Yes Past Medical History Surgery/Hospitalization HX: SEE CHART LIST Surgeries: Yes (HIATAL HERNIA, L TKR, R HIP REPLACEMENT, BLADDER x8, BILAT FOOT SX) Orthopedic Respiratory: Yes Pneumonia, Sleep Apnea Currently Using CPAP: Yes Currently Using BIPAP: No Cardiac: Yes Atrial Fibrillation, Chronic Edema/Swelling, High Cholesterol, Hypertension Neurological: No Reproductive Disorders: 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 Sexually Transmitted Disease: No Genitourinary: Yes (BOTOX FOR URINARY INCONT Q 6 MONTHS) Bladder Infection Gastrointestinal: Yes Gastroesophageal Reflux Musculoskeletal: Yes Arthritis, Chronic Back Pain Endocrine: No Diabetes, Non-Insulin dep Cataract Loss of Vision: Bilateral Hearing Impairment: Denies Cancer: No Psychosocial: Yes Anxiety, Depression Integumentary: No Blood Disorders: No Adverse Reaction/Blood Tranf: No Family Medical History Arthritis 19 MOTHER Cataracts 19 FATHER 19 MOTHER Colon cancer 19 FATHER Deafness or hearing loss 19 FATHER Dementia 19 FATHER FH: macular degeneration 19 MOTHER FH: prostate cancer 19 FATHER FH: skin cancer 19 FATHER Gout 19 MOTHER Hypertension 19 FATHER 19 MOTHER Myocardial infarction 19 FATHER 19 MOTHER Physical Exam Vital Signs Vital Signs - First Documented 04/27/21 12:34 Temp 36.8 Pulse 101 Resp 22 B/P (MAP) 182/109 (133) Pulse Ox 98 O2 Delivery Nasal Cannula O2 Flow Rate 2.00 FiO2 94 Capillary Refill : Height, Weight, BMI Height: 5'7.00" Weight: 291lbs. 6.0oz. 132.881964oj; 43.63 BMI Method:Stated General Appearance: No Apparent Distress, WD/WN Eyes: Bilateral Eye Normal Inspection, Bilateral Eye PERRL, Bilateral Eye EOMI Neck: Full Range of Motion, Normal Inspection Respiratory: Normal Breath Sounds, No Accessory Muscle Use, No Respiratory Di stress Cardiovascular: Irregularly Irregular, Tachycardia Gastrointestinal: Normal Bowel Sounds, Non Tender, Soft Extremity: Normal Capillary Refill, Normal Inspection Neurologic/Psychiatric: Alert, Oriented x3 Skin: Normal Color, Warm/Dry Progress/Results/Core Measures Suspected Sepsis SIRS Temperature: Pulse: Respiratory Rate: Laboratory Tests 04/27/21 12:47: White Blood Count 20.3H Blood Pressure / Mean: Laboratory Tests 04/27/21 12:47: Creatinine 0.89, INR Comment 1.1, Platelet Count 309, Total Bilirubin 0.9 Results/Orders Lab Results Laboratory Tests Test 04/27/21 12:47 Range/Units White Blood Count 20.3 H 4.3-11.0 10^3/uL Red Blood Count 5.62 H 3.80-5.11 10^6/uL Hemoglobin 16.3 H 11.5-16.0 g/dL Hematocrit 50 35-52 % Mean Corpuscular Volume 89 80-99 fL Mean Corpuscular Hemoglobin 29 25-34 pg Mean Corpuscular Hemoglobin Concent 33 32-36 g/dL Red Cell Distribution Width 13.8 10.0-14.5 % Platelet Count 309 130-400 10^3/uL Mean Platelet Volume 9.7 9.0-12.2 fL Immature Granulocyte % (Auto) 5 % Neutrophils (%) (Auto) 84 H 42-75 % Lymphocytes (%) (Auto) 7 L 12-44 % Monocytes (%) (Auto) 4 0-12 % Eosinophils (%) (Auto) 0 0-10 % Basophils (%) (Auto) 0 0-10 % Neutrophils # (Auto) 17.0 H 1.8-7.8 10^3/uL Lymphocytes # (Auto) 1.4 1.0-4.0 10^3/uL Monocytes # (Auto) 0.9 0.0-1.0 10^3/uL Eosinophils # (Auto) 0.0 0.0-0.3 10^3/uL Basophils # (Auto) 0.1 0.0-0.1 10^3/uL Immature Granulocyte # (Auto) 1.0 H 0.0-0.1 10^3/uL Neutrophils % (Manual) 85 % Lymphocytes % (Manual) 8 % Monocytes % (Manual) 5 % Metamyelocytes % 1 % Myelocytes % 1 % Blood Morphology Comment NORMAL Prothrombin Time 14.4 12.2-14.7 SEC INR Comment 1.1 0.8-1.4 Activated Partial Thromboplast Time 24 24-35 SEC Sodium Level 141 135-145 MMOL/L Potassium Level 4.6 3.6-5.0 MMOL/L Chloride Level 104 98-107 MMOL/L Carbon Dioxide Level 22 21-32 MMOL/L Anion Gap 15 H 5-14 MMOL/L Blood Urea Nitrogen 26 H 7-18 MG/DL Creatinine 0.89 0.60-1.30 MG/DL Estimat Glomerular Filtration Rate 62 BUN/Creatinine Ratio 29 Glucose Level 193 H 70-105 MG/DL Calcium Level 9.5 8.5-10.1 MG/DL Corrected Calcium 9.7 8.5-10.1 MG/DL Magnesium Level 2.0 1.6-2.4 MG/DL Total Bilirubin 0.9 0.1-1.0 MG/DL Aspartate Amino Transf (AST/SGOT) 14 5-34 U/L Alanine Aminotransferase (ALT/SGPT) 25 0-55 U/L Alkaline Phosphatase 68 40-136 U/L Myoglobin 57.0 10.0-92.0 NG/ML B-Type Natriuretic Peptide < 10.0 <100.0 PG/ML Total Protein 6.1 L 6.4-8.2 GM/DL Albumin 3.8 3.2-4.5 GM/DL My Orders Orders - LINSEY LOERA 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 OPERATOR Cbc With Automated Diff (04/27/21 12:38) Magnesium (04/27/21 12:38) Chest 1 View, Ap/Pa Only (04/27/21 12:38) Ekg Tracing (04/27/21 12:38) Comprehensive Metabolic Panel (04/27/21 12:38) Myoglobin Serum (04/27/21 12:38) Protime With Inr (04/27/21 12:38) Partial Thromboplastin Time (04/27/21 12:38) O2 (04/27/21 12:38) Monitor-Rhythm Ecg Trace Only (04/27/21 12:38) Lipid Panel (04/28/21 06:00) Ed Iv/Invasive Line Start (04/27/21 12:38) BNP (04/27/21 12:38) Diltiazem Injection (Cardizem Injection) (04/27/21 12:45) Manual Differential (04/27/21 12:47) Diltiazem Cd 24 Hr Capsule (Cardizem Cd (04/27/21 13:30) Ns Iv 500 Ml (Sodium Chloride 0.9%) (04/27/21 14:00) Medications Given in ED Current Medications Medications Dose Ordered Sig/Lisa Route Start Time Stop Time Status Last Admin Dose Admin Diltiazem HCl 10 mg ONCE ONCE IVP 04/27/21 12:45 04/27/21 12:46 DC 04/27/21 13:02 10 MG Vital Signs/I&O 04/27/21 04/27/21 04/27/21 12:34 12:34 12:34 Temp 36.8 Pulse 101 Resp 22 B/P (MAP) 182/109 (133) Pulse Ox 98 O2 Delivery Nasal Cannula Nasal Cannula Nasal Cannula O2 Flow Rate 2.00 2.00 FiO2 94 Capillary Refill : Departure Communication (Admissions) 1320-patient has converted to a normal sinus rhythm at 70 10:08 milligrams of Cardizem IV push. She was not given oral Cardizem CD. Impression Primary Impression: Atrial fibrillation with RVR Disposition: HOME, SELF-CARE Condition: Stable Departure-Patient Inst. Decision time for Depature: 12:47 Referrals: ANAY DARNELL DO (PCP/Family) Primary Care Physician Patient Instructions: Atrial Fibrillation LINSEY LOERA APRN Apr 27, 2021 12:47
[2021-04-27 13:07] LABS: BASOPHILS # (AUTO) 0.1 10^3/uL (0.0-0.1); BASOPHILS % (AUTO) 0 % (0-10); EOSINOPHILS % (AUTO) 0 % (0-10); HEMATOCRIT 50 % (35-52); HEMOGLOBIN 16.3 g/dL (11.5-16.0); LYMPHOCYTES # (AUTO) 1.4 10^3/uL (1.0-4.0); LYMPHOCYTES % (AUTO) 7 % (12-44); MEAN CORPUSCULAR HEMOGLOBIN 29 pg (25-34); MEAN CORPUSCULAR HGB CONC 33 g/dL (32-36); MEAN CORPUSCULAR VOLUME 89 fL (80-99); MEAN PLATELET VOLUME 9.7 fL (9.0-12.2); MONOCYTES # (AUTO) 0.9 10^3/uL (0.0-1.0); MONOCYTES % (AUTO) 4 % (0-12); NEUTROPHILS % (AUTO) 84 % (42-75); PLATELET COUNT 309 10^3/uL (130-400); WHITE BLOOD COUNT 20.3 10^3/uL (4.3-11.0)
--- NOTE | 2021-04-27 13:08 | Diagnostic Imaging Report ---
INDICATION: Chest pain COMPARISON: 04/19/2021 TECHNIQUE: Single radiograph of the chest dated 04/27/2020. FINDINGS: Loop recorder is again seen overlying the cardiac silhouette. The cardiac silhouette is within normal limits in size. No significant pulmonary vascular congestion. The lungs are clear. No pleural effusion. No pneumothorax. No acute osseous abnormality. IMPRESSION: Stable examination without acute cardiopulmonary abnormality. Dictated by: Dictated on workstation # [id number]
[2021-04-27 13:20] LABS: ALBUMIN 3.8 GM/DL (3.2-4.5); INR 1.1 (0.8-1.4); POTASSIUM 4.6 MMOL/L (3.6-5.0); PROTHROMBIN TIME PATIENT 14.4 SEC (12.2-14.7)
[2021-04-27 13:21] LABS: CALCIUM 9.5 MG/DL (8.5-10.1)
[2021-04-27 13:22] LABS: TOTAL PROTEIN 6.1 GM/DL (6.4-8.2)
[2021-04-27 13:24] LABS: BILIRUBIN,TOTAL 0.9 MG/DL (0.1-1.0)
[2021-04-27 13:26] LABS: CREATININE SERUM 0.89 MG/DL (0.60-1.30)
[2021-04-27] MEDS ORDERED: dilTIAZem120 MG (CARDIZEM CD) CAP PO SCH (13:30)
[2021-04-27 13:33] LABS: LYMPHOCYTES % (MANUAL) 8 %; METAMYELOCYTES % 1 %; MONOCYTES % (MANUAL) 5 %; MYELOCYTES % 1 %; NEUTROPHILS % (MANUAL) 85 %; RBC MORPH NORMAL
[2021-04-27] MEDS ORDERED: NS IV 500 ML 500 ML IV SCH (14:00)
[2021-04-27 14:21] VITALS: BP 124/74
[2021-04-30] MEDS ORDERED: MTP25TSR PO (09:43)
[2021-04-30] MEDS ORDERED: DILT240C91 PO (09:43)
== END 2021-04-27 14:21 | disposition home or self-care (01) ==
LOC: EDUNIT# 12:33 → ER 12:36
DX: I48.20 Chronic atrial fibrillation, unspecified (principal); G47.30 Sleep apnea, unspecified; I10 Essential (primary) hypertension; E78.00 Pure hypercholesterolemia, unspecified; F41.9 Anxiety disorder, unspecified; F32.9 Major depressive disorder, single episode, unspecified; E11.9 Type 2 diabetes mellitus without complications; Z79.01 Long term (current) use of anticoagulants; Z79.899 Other long term (current) drug therapy
CPT/HCPCS: 36415; 71045; 80053; 83735; 83874; 83880; 85007; 85027; 85610; 85730; 93005; 93041

== ENCOUNTER 2021-04-29 14:20 | Observation (INO) | payer MEDICARE ==
[~2021-04-29] VITALS: Ht 170 cm; Wt 127.4 kg
[2021-04-29] VITALS (8 sets, daily range): BP systolic 117–155; BP diastolic 68–106
--- NOTE | 2021-04-29 16:54 | Diagnostic Imaging Report ---
EXAMINATION: Chest 1 view HISTORY: Dyspnea COMPARISON: 04/27/2021 FINDINGS: Heart size and pulmonary vasculature are stable. The lungs are clear without consolidation, pleural effusion, or pneumothorax. Degenerative changes of the thoracic spine. Osseous structures are otherwise intact. IMPRESSION: 1. No acute radiographic abnormality in the chest. Dictated by: Dictated on workstation # [id number]
--- NOTE | 2021-04-29 17:05 | Tele-ICU Consult ---
History of Present Illness History of Present Illness Date Seen by Provider: Apr 29, 2021 Time Seen by Provider: 16:52 Date of Admission Allergies and Home Medications Allergies Coded Allergies: sulfamethoxazole (Verified Allergy, Intermediate, rash, SOB, 10/23/18) trimethoprim (Verified Allergy, Intermediate, rash, SOB, 10/23/18) cephalexin (Verified Allergy, Unknown, 10/02/18) Home Medications ALPRAZolam 0.25 Mg Tablet, 0.25 MG PO Q8H PRN for ANXIETY, (Reported) Albuterol Sulfate 1 Puff Puff, 2 PUFF IH Q4H PRN for SHORTNESS OF BREATH, (Reported) Amlodipine Besylate 10 Mg Tablet, 10 MG PO DAILY Prescribed by: RASHAUN HORN on 04/21/21919 Apixaban 5 Mg Tablet, 5 MG PO BID, (Reported) Atorvastatin Calcium 20 Mg Tablet, 20 MG PO HS, (Reported) Baclofen 10 Mg Tablet, 10 MG PO BID PRN for MUSCLE SPASMS, (Reported) Cholecalciferol (Vitamin D3) 125 Mcg/1 Ml Drops, 125 MCG PO DAILY, (Reported) Diltiazem HCl 240 Mg Capsule.er, 240 MG PO DAILY, (Reported) Docusate Sodium 100 Mg Capsule, 100 MG PO TID PRN for CONSTIPATION-1ST LINE, (Reported) Estradiol 0.5 Mg Tablet, 0.5 MG PO DAILY, (Reported) Fluticasone Propionate 16 Gm [place].susp, 2 SPRAYS NS HS PRN for ALLERGIES, (Reported) Fluticasone/Salmeterol 1 Each Blst.w.dev, 1 PUFF INH BID PRN for SHORTNESS OF BREATH, (Reported) Furosemide 40 Mg Tablet, 40 MG PO DAILY PRN for FLUID RETENTION, (Reported) Hydralazine HCl 25 Mg Tablet, 25 MG PO TID Prescribed by: ANAY DARNELL on 04/21/21902 Ipratropium/Albuterol Sulfate 3 Ml Ampul.neb, 3 ML INH RTBID Prescribed by: ANAY DARNELL on 04/21/21928 Lisinopril 20 Mg Tablet, 40 MG PO DAILY Prescribed by: ANAY DARNELL on 04/21/21902 Loratadine 10 Mg Tablet, 10 MG PO DAILY, (Reported) Montelukast Sodium 10 Mg Tablet, 10 MG PO HS, (Reported) Oxycodone HCl/Acetaminophen 1 Each Tablet, 1-2 EA PO Q6H PRN for PAIN-MODERATE (5-7), (Reported) Potassium Chloride 10 Meq Capsule.er, 20 MEQ PO DAILY PRN for WHEN TAKING FUROSEMIDE, (Reported) TAKES 2 (10MEQ) CAPS Prednisone 10 Mg Tab.ds.pk, 10 MG PO DAILY Take 6 tabs(60mg)daily,decrease by 1 tab(10MG)daily. Prescribed by: ANAY DARNELL on 04/21/21 0903 Sertraline HCl 100 Mg Tablet, 150 MG PO DAILY, (Reported) TAKES 1 & 1/2 (100MG) TABLET Tizanidine HCl 4 Mg Tablet, 4 MG PO TID PRN for MUSCLE SPASMS, (Reported) Trazodone HCl 50 Mg Tablet, 50 MG PO HS, (Reported) Past Medical/Social/Family Hx Immunizations Up To Date Influenza Vaccine Up-to-Date: No; Not Current First/Initial COVID19 Vaccinat: 09/23/20 Second COVID19 Vaccination Jamar: 10/24/20 Tetanus Booster (TDap): Less Than 5 Years Hepatitis A: No Hepatitis B: No TB Skin Test: None Date of Pneumonia Vaccine: Apr 04, 2020 Current Status Primary Language: Greek Review of Systems Constitutional: see HPI Sepsis Event Evaluation Height, Weight, BMI Height: 5'7.00" Weight: 291lbs. 6.0oz. 132.829908ag; 44.56 BMI Method:Stated Exam Exam Patient acknowledged, consented, and participated in this virtual visit which was conducted using real time audio/video Vital Signs Date Time Temp Pulse Resp B/P (MAP) Pulse Ox O2 Delivery O2 Flow Rate FiO2 04/29/21 16:25 94 18 132/76 (94) 93 Room Air Height & Weight Height: 5'7.00" Weight: 291lbs. 6.0oz. 132.193264dt; 44.56 BMI Method:Stated General Appearance: No Apparent Distress Capillary Refill: Less Than 3 Seconds Assessment/Plan Assessment/Plan (Tele-ICU Physician , consultation) no H&P - direct admit from office Patient's information available about PMH, Shx, Fhx allergy reviewed in EMR from previous admissions ROS as per RN report Now in ICU, hemodynamically stable Video assessment done using teleICU camera, rest of exam as per RN Discussed with RN. Consultants: maria guadalupe Hospital course: discharged 04/21 with AECOPD, a fib 04/29 - direct admit from office with a fib RVR A/P Paroxysmal A fib and typical A flutter - rate control as per cards - Post a-fib ablation -2018 - [facility] with Eliquis CAD - Echo 12/16/18 LVEF 60-65%, mild MR, RVSP 25 mmHg COPD with recent exacrbation - d/c ed on prednisone taper 6 days - OFF now , amber oliveira Chronic diastolic CHF - clinically compensated ADOLPH /? [facility] - C-PAP therapy- reportedly compliant - to cont home settings Recurrent UTI history Plans in collaboration with bedside consultants and IM MDs - patient is stable , await labs to be done , consultants input Discussed with RN to reach out if any questions or concerns A total of 20 minutes of critical care time was devoted to this patient today, required to treat and/or prevent further deterioration of critical care condition ( as above ) . NENA KAMARA MD Apr 29, 2021 17:05
[2021-04-29 17:25] LABS: BASOPHILS % (AUTO) 0 % (0-10); EOSINOPHILS # (AUTO) 0.2 10^3/uL (0.0-0.3); EOSINOPHILS % (AUTO) 1 % (0-10); HEMATOCRIT 46 % (35-52); LYMPHOCYTES # (AUTO) 1.6 10^3/uL (1.0-4.0); LYMPHOCYTES % (AUTO) 9 % (12-44); MEAN CORPUSCULAR HEMOGLOBIN 30 pg (25-34); MEAN CORPUSCULAR HGB CONC 33 g/dL (32-36); MEAN CORPUSCULAR VOLUME 91 fL (80-99); MONOCYTES # (AUTO) 1.4 10^3/uL (0.0-1.0); MONOCYTES % (AUTO) 8 % (0-12); NEUTROPHILS # (AUTO) 14.3 10^3/uL (1.8-7.8); NEUTROPHILS % (AUTO) 80 % (42-75); PLATELET COUNT 218 10^3/uL (130-400); WHITE BLOOD COUNT 17.8 10^3/uL (4.3-11.0)
[2021-04-29] MEDS ORDERED: dilTIAZem DRIP PRE-MIX 125 ML IV SCH (17:30)
[2021-04-29] MEDS ORDERED: FLU QUAD HIGH DOSE 240 MCG/0.7 ML 2021-22 (FLUZONE) IM ONE (17:30)
[2021-04-29 17:40] LABS: ALBUMIN 3.6 GM/DL (3.2-4.5); POTASSIUM 4.4 MMOL/L (3.6-5.0)
[2021-04-29 17:41] LABS: CALCIUM 9.6 MG/DL (8.5-10.1)
[2021-04-29 17:44] LABS: BILIRUBIN,TOTAL 0.7 MG/DL (0.1-1.0)
[2021-04-29 17:46] LABS: CREATININE SERUM 1.08 MG/DL (0.60-1.30)
--- NOTE | 2021-04-29 17:50 | Consultation-Cardiology ---
HPI-Cardiology Cardiology Consultation: Date of Consultation 04/29/21 Time Seen by a Provider: 17:00 Date of Admission Attending Physician Breanna Darnell DO Admitting Physician Breanna Darnell DO Consulting Physician QAMAR GONZALEZ MD, MA, FACP, FACC, FSCAI, CCDS Physician requesting consult: Dr Darnell HPI: Chief Complaint: CC: Palpitations HPI 76 yo woman with h/o PAF who has been experiencing marked palpitations for the last several days. This has caused her discomfort and anxiety. She has come to the [facility] for this on one occasion recently. Today, she went to see her pcp from whose office she was admitted. She also had an admission in late Mar 2021 for ac asthmatic bronchitis. Notes gen malaise. Denies focal weakness. Denies cp. Has chronic, exertional shortness of breath. Denies swelling Review of Systems-Cardiology Review of Systems Constitutional: malaise, tiredness Eyes: No vision change Ears/Nose/Throat: No ear discharge, No nasal drainage, No recent hearing loss Respiratory: As described under HPI Cardiovascular: As described under HPI Gastrointestinal: No diarrhea, No nausea, No vomiting Genitourinary: No dysuria, No hematuria, No urine frequency changes Musculoskeletal: back pain (chronic) Skin: No rash, No ulcerations Psychiatric/Neurological: No seizure, No focal weakness, No syncope Hematologic: No bleeding abnormalities PXM-Pdnhpj-Jwnkaw Hx Patient Social History 2nd Hand Smoke Exposure: No Immunizations Up To Date Tetanus Booster (TDap): Less than 5yrs Date of Pneumonia Vaccine: Apr 04, 2020 Date of Influenza Vaccine: Apr 16, 2020 Past Medical History PMH As described under Assessment. Family Medical History Family Medical History: She reports her mother and father both had CAD and HTN. Family History: Arthritis 19 MOTHER Cataracts 19 FATHER 19 MOTHER Colon cancer 19 FATHER Deafness or hearing loss 19 FATHER Dementia 19 FATHER FH: macular degeneration 19 MOTHER FH: prostate cancer 19 FATHER FH: skin cancer 19 FATHER Gout 19 MOTHER Hypertension 19 FATHER 19 MOTHER Myocardial infarction 19 FATHER 19 MOTHER Allergies and Home Medications Allergies Coded Allergies: sulfamethoxazole (Verified Allergy, Intermediate, rash, SOB, 10/23/18) trimethoprim (Verified Allergy, Intermediate, rash, SOB, 10/23/18) cephalexin (Verified Allergy, Unknown, 10/02/18) Patient Home Medication List Home Medication List Reviewed: Yes ALPRAZolam (ALPRAZolam) 0.25 Mg Tablet, 0.25 MG PO Q8H PRN for ANXIETY, (Reported) Entered as Reported by: TOMI OCONNOR on 04/17/211699 Last Action: Reviewed Albuterol Sulfate (Proair Hfa) 1 Puff Puff, 2 PUFF IH Q4H PRN for SHORTNESS OF BREATH, (Reported) Entered as Reported by: EDGARDO RIVAS on 12/15/18 153 Last Action: Reviewed Amlodipine Besylate (Norvasc) 10 Mg Tablet, 10 MG PO DAILY Prescribed by: RASHAUN HORN on 04/21/21 0920 Last Action: Reviewed Apixaban (Eliquis) 5 Mg Tablet, 5 MG PO BID, (Reported) Entered as Reported by: EDGARDO RIVAS on 10/03/181126 Last Action: Reviewed Atorvastatin Calcium (Atorvastatin Calcium) 20 Mg Tablet, 20 MG PO HS, (Reported) Entered as Reported by: EDGARDO RIVAS on 10/03/181126 Last Action: Reviewed Baclofen (Baclofen) 10 Mg Tablet, 10 MG PO BID PRN for MUSCLE SPASMS, (Reported) Entered as Reported by: TOMI OCONNOR on 04/17/211699 Last Action: Reviewed Cholecalciferol (Vitamin D3) (Vitamin D3) 125 Mcg/1 Ml Drops, 125 MCG PO DAILY, (Reported) Entered as Reported by: TOMI OCONNOR on 06/17/201120 Last Action: Reviewed Diltiazem HCl (Diltiazem ER) 240 Mg Capsule.er, 240 MG PO DAILY, (Reported) Entered as Reported by: EDGARDO RIVAS on 12/15/181530 Last Action: Reviewed Docusate Sodium (Docusate Sodium) 100 Mg Capsule, 100 MG PO TID PRN for CONSTIPATION-1ST LINE, (Reported) Entered as Reported by: TOMI OCONNOR on 04/17/211699 Last Action: Reviewed Estradiol (Estradiol Tablet) 0.5 Mg Tablet, 0.5 MG PO DAILY, (Reported) Entered as Reported by: VICTOR MANUEL DASILVA on 05/28/16 1331 Last Action: Reviewed Fluticasone Propionate (Fluticasone Propionate) 16 Gm Powers.susp, 2 SPRAYS NS HS PRN for ALLERGIES, (Reported) Entered as Reported by: EDGARDO RIVAS on 10/03/181126 Last Action: Reviewed Fluticasone/Salmeterol (Advair 100-50 Diskus) 1 Each Blst.w.dev, 1 PUFF INH BID PRN for SHORTNESS OF BREATH, (Reported) Entered as Reported by: EDGARDO RIVAS on 12/29/16 0815 Last Action: Reviewed Furosemide (Furosemide) 40 Mg Tablet, 40 MG PO DAILY PRN for FLUID RETENTION, (Reported) Entered as Reported by: TOMI OCONNOR on 05/22/19 07 Last Action: Reviewed Hydralazine HCl (Hydralazine HCl) 25 Mg Tablet, 25 MG PO TID Prescribed by: BREANNA DARNELL on 04/21/21902 Last Action: Reviewed Ipratropium/Albuterol Sulfate (Iprat-Albut 0.5-3(2.5) mg/3 ml) 3 Ml Ampul.neb, 3 ML INH RTBID Prescribed by: BREANNA DARNELL on 04/21/21 09 Last Action: Reviewed Lisinopril (Lisinopril) 20 Mg Tablet, 40 MG PO DAILY Prescribed by: BREANNA DARNELL on 04/21/21902 Last Action: Reviewed Loratadine (Loratadine) 10 Mg Tablet, 10 MG PO DAILY, (Reported) Entered as Reported by: TOMI OCONNOR on 05/22/19743 Last Action: Reviewed Montelukast Sodium (Montelukast Sodium) 10 Mg Tablet, 10 MG PO HS, (Reported) Entered as Reported by: EDGARDO RIVAS on 10/03/181126 Last Action: Reviewed Oxycodone HCl/Acetaminophen (Oxycodone-Acetaminophen 5-325) 1 Each Tablet, 1-2 EA PO Q6H PRN for PAIN-MODERATE (5-7), (Reported) Entered as Reported by: TOMI OCONNOR on 04/17/21 1700 Last Action: Reviewed Potassium Chloride (Potassium Chloride) 10 Meq Capsule.er, 20 MEQ PO DAILY PRN for WHEN TAKING FUROSEMIDE, (Reported) Entered as Reported by: TOMI OCONNOR on 06/17/20 112 Last Action: Reviewed Prednisone (Prednisone) 10 Mg Tab.ds.pk, 10 MG PO DAILY Prescribed by: BREANNA DARNELL on 9/27/21 0903 Last Action: Reviewed Sertraline HCl (Sertraline HCl) 100 Mg Tablet, 150 MG PO DAILY, (Reported) Entered as Reported by: EDGARDO RIVAS on 10/03/18 112 Last Action: Reviewed Tizanidine HCl (Tizanidine HCl) 4 Mg Tablet, 4 MG PO TID PRN for MUSCLE SPASMS, (Reported) Entered as Reported by: TOMI OCONNOR on 04/17/21 1700 Last Action: Reviewed Trazodone HCl (Trazodone HCl) 50 Mg Tablet, 50 MG PO HS, (Reported) Entered as Reported by: EDGARDO RIVAS on 10/03/181126 Last Action: Reviewed Physical Exam-Cardiology Physical Exam Vital Signs/I&O 04/29/21 16:25 Pulse 94 Resp 18 B/P (MAP) 132/76 (94) Pulse Ox 93 O2 Delivery Room Air Capillary Refill : Less Than 3 Seconds Constitutional: AAO x 3, well-developed, well-nourished HEENT: EOMI, hearing is well preserved; No xanthelasmas are seen Neck: carotid pulses are 2 + bilaterally Respiratory: No accessory muscle use; other (good, bilat air entry) Cardiovascular: irregularly irregular, S1 and S2, systolic murmur (soft [place] at card base) Gastrointestinal: No tender; soft; No guarding, No rebound; audible bowel sounds Extremities: No clubbing, No cyanosis, No significant edema Neurologic/Psychiatric: oriented x 3, other (moves all limbs equally) Skin: No rash on exposed areas, No ulcerations on exposed areas Data Review Labs Laboratory Tests 04/29/21 17:17: White Blood Count 17.8H, Red Blood Count 5.05, Hemoglobin 15.0, Hematocrit 46, Mean Corpuscular Volume 91, Mean Corpuscular Hemoglobin 30, Mean Corpuscular Hemoglobin Concent 33, Red Cell Distribution Width 14.0, Platelet Count 218, Mean Platelet Volume 9.0, Immature Granulocyte % (Auto) 2, Neutrophils (%) (Auto) 80H, Lymphocytes (%) (Auto) 9L, Monocytes (%) (Auto) 8, Eosinophils (%) (Auto) 1, Basophils (%) (Auto) 0, Neutrophils # (Auto) 14.3H, Lymphocytes # (Auto) 1.6, Monocytes # (Auto) 1.4H, Eosinophils # (Auto) 0.2, Basophils # (Auto) 0.0, Immature Granulocyte # (Auto) 0.3H, Sodium Level 139, Potassium Level 4.4, Chloride Level 102, Carbon Dioxide Level 27, Anion Gap 10, Glucose Level 116H, Calcium Level 9.6, Corrected Calcium 9.9, Total Protein 6.0L, Albumin 3.6 Laboratory Tests 04/29/21 17:17 A/P-Cardiology Assessment/Admission Diagnosis Paroxysmal A fib and typical A flutter - first documented on 09-30-18 at [facility]). Placed on flecainide at [facility] on 09/30/18 - has had typical atrial flutter ablation by Dr Thompson on 01/30/19 - has had ILR placement by Dr Thompson n 04/06/19 - Post a-fib ablation on 05-22-2019 by . Now off flecainide - ILR interrogation of Feb 2021 showed episodes of a-fib with RVR in January - awaiting apptt at [facility] for recurrent a fib at [facility] (Dr Thompson) - OAC with Eliquis CAD - Minor coronary artery disease per cardiac catheterization of July 2006. - MPI of 01/17/15 did not show ischemia or infarction, and LVEF was 54% - Echo 12/16/18 showed LVEF 60-65%, mild MR, RVSP 25 mmHg Abnormal ECG - RBBB, chronic History of bronchial asthma - managed by PCP Hyperlipidemia - being treated and being followed by Dr. Darnell. Glucose intolerance - being managed by Dr. Darnell Hypertension - not well controlled at the time of this admission Obesity - Elevated body mass index of approximately 44 Chronic diastolic CHF - clinically compensated Carotid dz - Minimal carotid arterial disease on carotid u/s of 03/09/17 H/o mild pulmonary hypertension - probable related to obesity-hypoventilation syndrome due to body habitus, improved since treatment of ADOLPH. Obstructive sleep apnea syndrome - treated with C-PAP therapy. History of overactive bladder and urinary incontinence - S/p botox injection in September 2017 and Mar 2019 by her urologist in [facility] in [place]. Orthopedic - Left knee and R hip replacement. Discussion and Recomendations * Increase oral dilt. Consider iv dilt if needed during this hospitalization * Add beta-coy * Consider dig if above not enough or if above causes hypotension * Monitor and correct labs * Oral anticoag for stroke prophylaxis * Further recs to be based on hosp course QAMAR GONZALEZ MD FACP FAC CCDS Apr 29, 2021 17:50
[2021-04-29] MEDS ORDERED: APIXABAN 5 MG (ELIQUIS) TABLET PO SCH (21:00)
[2021-04-29] MEDS ORDERED: RT-ALBUTEROL SULF 2.5 MG/3 ML PRE-MIX VIAL IH PRN (21:15)
[2021-04-29] MEDS ORDERED: BACLOFEN 10 MG (LIORESAL) TAB PO PRN (21:15)
[2021-04-29] MEDS ORDERED: DOCUSATE SODIUM 100 MG (COLACE) CAP PO PRN ×2 (21:15→21:45)
[2021-04-29] MEDS ORDERED: oxyCODONE/APAP 5/325MG (PERCOCET 5) TABLET PO PRN (21:15)
[2021-04-29] MEDS ORDERED: FUROSEMIDE 40 MG (LASIX) TAB PO PRN (21:15)
[2021-04-29] MEDS ORDERED: FLUTICASONE NASAL SPRAY (FLONASE) 16 GM BTL NS PRN (21:15)
[2021-04-29] MEDS ORDERED: ONDANSETRON 4 MG/2 ML (SDV) Z0FRAN IVP PRN (21:45)
[2021-04-29] MEDS ORDERED: LOPERAMIDE 2 MG (IMODIUM) TABLET PO PRN (21:45)
[2021-04-29] MEDS ORDERED: diphenhydrAMINE 25 MG TAB (BENADRYL) PO PRN (21:45)
[2021-04-29] MEDS ORDERED: KCL 20 MEQ TAB (K-DUR) PO PRN (21:45)
[2021-04-29] MEDS ORDERED: MELATONIN 3 MG TABLET PO PRN (21:45)
[2021-04-29] MEDS ORDERED: CALCIUM CARBONATE 500 MG (TUMS) TAB.CHEW PO PRN (21:45)
[2021-04-29] MEDS ORDERED: ACETAMINOPHEN 500 MG TAB (TYLENOL) PO PRN (21:45)
[2021-04-29] MEDS: MONTELUKAST 10 MG (SINGULAIR) TAB PO SCH (22:49)
[2021-04-29] MEDS: traZODone 50 MG (DESYREL) TAB PO SCH (22:50)
[2021-04-29] MEDS: APIXABAN 5 MG (ELIQUIS) TABLET PO SCH (22:50)
[2021-04-29] MEDS: ALPRAZolam 0.25 MG (XANAX) TAB PO PRN (22:51)
[2021-04-30] VITALS (13 sets, daily range): BP systolic 89–159; BP diastolic 48–91
[2021-04-30 04:37] LABS: BASOPHILS % (AUTO) 0 % (0-10); EOSINOPHILS # (AUTO) 0.2 10^3/uL (0.0-0.3); EOSINOPHILS % (AUTO) 2 % (0-10); HEMATOCRIT 42 % (35-52); HEMOGLOBIN 13.4 g/dL (11.5-16.0); LYMPHOCYTES # (AUTO) 2.2 10^3/uL (1.0-4.0); LYMPHOCYTES % (AUTO) 14 % (12-44); MEAN CORPUSCULAR HEMOGLOBIN 29 pg (25-34); MEAN CORPUSCULAR HGB CONC 32 g/dL (32-36); MEAN CORPUSCULAR VOLUME 91 fL (80-99); MEAN PLATELET VOLUME 9.3 fL (9.0-12.2); MONOCYTES # (AUTO) 1.2 10^3/uL (0.0-1.0); MONOCYTES % (AUTO) 8 % (0-12); NEUTROPHILS # (AUTO) 11.3 10^3/uL (1.8-7.8); NEUTROPHILS % (AUTO) 74 % (42-75); PLATELET COUNT 182 10^3/uL (130-400); WHITE BLOOD COUNT 15.2 10^3/uL (4.3-11.0)
[2021-04-30 04:55] LABS: ALBUMIN 3.2 GM/DL (3.2-4.5)
[2021-04-30 04:56] LABS: POTASSIUM 4.1 MMOL/L (3.6-5.0)
[2021-04-30 04:58] LABS: TOTAL PROTEIN 5.2 GM/DL (6.4-8.2)
[2021-04-30 05:00] LABS: BILIRUBIN,TOTAL 1.1 MG/DL (0.1-1.0)
[2021-04-30 05:02] LABS: CREATININE SERUM 1.03 MG/DL (0.60-1.30)
[2021-04-30 05:47] LABS: PHOSPHORUS 4.2 MG/DL (2.3-4.7)
[2021-04-30 05:48] LABS: MAGNESIUM 2.1 MG/DL (1.6-2.4)
[2021-04-30] MEDS ORDERED: POTASSIUM CL 10MEQ/50ML IVPB 50 ML IV SCH (06:00)
[2021-04-30] MEDS ORDERED: MAGNESIUM 1 GM/100 ML IVPB 100 ML IV SCH (06:00)
[2021-04-30] MEDS ORDERED: KCL 20 MEQ TAB (K-DUR) PO SCH (06:00)
[2021-04-30] MEDS: RT-ALBUTEROL/IPRATROPIUM 3 ML (DUONEB) VIAL INH SCH ×2 (06:55→20:58)
--- NOTE | 2021-04-30 08:13 | Tele-ICU Progress Note ---
Subjective Date Seen by a Provider: Apr 30, 2021 Time Seen by a Provider: 08:09 Subjective/Events-last exam here for AECOPD, a fib currentlly on loporessor and po cardizem for rate control Airduo and albuterol for COPD CXR shows enlarged HS, not much hyperinflation Hb 15 from yesterday which suggest a reactive polycythemia from hypoxia Has home CPAP, pt is using according to RN Sepsis Event Evaluation Height, Weight, BMI Height: 5'7.00" Weight: 291lbs. 6.0oz. 132.496596bl; 44.56 BMI Method:Stated Exam Exam Patient acknowledged, consented, and participated in this virtual visit which was conducted using real time audio/video Vital Signs Date Time Temp Pulse Resp B/P (MAP) Pulse Ox O2 Delivery O2 Flow Rate FiO2 04/30/21 07:49 36.5 04/30/21 06:57 94 Room Air 04/30/21 06:53 67 18 95 Room Air 04/30/21 06:00 61 10 123/77 (92) 94 NIV CPAP 2.00 04/30/21 05:00 57 21 104/58 (73) 94 NIV CPAP 2.00 04/30/21 04:00 65 27 159/74 (102) 94 NIV CPAP 2.00 04/30/21 04:00 94 NIV CPAP 2.00 04/30/21 03:00 63 22 104/48 (66) 94 NIV CPAP 2.00 04/30/21 02:00 72 23 89/53 (65) 94 NIV CPAP 2.00 04/30/21 01:00 70 04/30/21 01:00 70 22 100/60 (73) 94 NIV CPAP 2.00 04/30/21 00:00 71 23 102/60 (74) 94 NIV CPAP 2.00 04/29/21 23:10 82 26 94 NIV CPAP 2.00 04/29/21 23:00 82 20 136/81 (99) 96 Room Air 04/29/21 22:00 82 18 117/73 (88) 92 Room Air 04/29/21 21:00 85 129/77 (94) 92 Room Air 04/29/21 20:42 35.9 04/29/21 20:00 91 24 126/69 (88) 94 Room Air 04/29/21 19:48 92 04/29/21 19:30 90 31 140/68 (92) 94 Room Air 04/29/21 19:00 90 04/29/21 18:29 93 Room Air 04/29/21 18:00 81 27 140/99 (113) 94 Room Air 04/29/21 17:00 98 22 155/106 (122) 93 Room Air 04/29/21 16:25 104 04/29/21 16:25 94 18 132/76 (94) 93 Room Air I & O 04/30/21 07:00 Intake Total 790 ml Balance 790 ml Height & Weight Height: 5'7.00" Weight: 291lbs. 6.0oz. 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 OHVS - C-PAP therapy- reportedly compliant - to cont home settings Recurrent UTI history Critical Care: Critically Ill Patient Time spent with patient (mins): 25 ENID MARTE MD Apr 30, 2021 08:13
[2021-04-30] MEDS: VITAMIN D3 125 MCG (5,000 UNITS) CAPSULE PO SCH (08:34)
[2021-04-30] MEDS: APIXABAN 5 MG (ELIQUIS) TABLET PO SCH ×2 (08:34→21:07)
[2021-04-30] MEDS: amLODIPine 10 MG (NORVASC) TAB PO SCH (08:34)
[2021-04-30] MEDS: LORATADINE (CLARITIN) 10 MG TAB PO SCH (08:34)
[2021-04-30] MEDS: lisINopril 40 MG (PRINIVIL) TABLET PO SCH (08:34)
[2021-04-30] MEDS: SENNA W/DOCUSATE (SENOKOT S) TABLET PO SCH ×2 (08:34→21:07)
[2021-04-30] MEDS: ESTRADIOL 1 MG TAB (ESTRACE) PO SCH (08:35)
[2021-04-30] MEDS: SERTRALINE 100 MG (ZOLOFT) TAB PO SCH (08:35)
[2021-04-30] MEDS ORDERED: APIXABAN 5 MG (ELIQUIS) TABLET PO SCH (09:00)
[2021-04-30] MEDS ORDERED: NON-FORMULARY MEDICATION 1 EA EA (Diltiazem HCl (Diltiazem ER) 240 MG) PO SCH (09:00)
[2021-04-30] MEDS ORDERED: hydrALAZINE (APRESOLINE) 25 MG TAB PO SCH (09:00)
[2021-04-30] MEDS ORDERED: MTP25TSR PO ×2 (09:43)
[2021-04-30] MEDS ORDERED: DILT240C91 PO ×2 (09:43)
--- NOTE | 2021-04-30 13:51 | Progress Note - Cardiology ---
Cardiology SOAP Progress Note Subjective: Rested well at night No shortness of breath at rest Gen malaise present No n/v/d No cp or palp or syncope Objective: I&O/Vital Signs 04/30/21 04/30/21 04/30/21 04/30/21 02:00 03:00 04:00 04:00 Pulse 72 63 65 Resp 23 22 27 B/P (MAP) 89/53 (65) 104/48 (66) 159/74 (102) Pulse Ox 94 94 94 94 O2 Delivery NIV CPAP NIV CPAP NIV CPAP NIV CPAP O2 Flow Rate 2.00 2.00 2.00 2.00 04/30/21 04/30/21 04/30/21 04/30/21 05:00 06:00 06:53 06:57 Pulse 57 61 67 Resp 21 10 18 B/P (MAP) 104/58 (73) 123/77 (92) Pulse Ox 94 94 95 94 O2 Delivery NIV CPAP NIV CPAP Room Air Room Air O2 Flow Rate 2.00 2.00 04/30/21 04/30/21 04/30/21 04/30/21 07:00 07:00 07:49 08:00 Temp 36.5 Pulse 64 58 62 Resp 9 21 B/P (MAP) 114/57 (76) 123/84 (97) Pulse Ox 94 89 O2 Delivery Room Air Room Air 04/30/21 04/30/21 04/30/21 04/30/21 08:30 09:00 10:00 11:00 Pulse 77 61 61 Resp 28 27 25 B/P (MAP) 104/91 (95) 126/66 (86) Pulse Ox 94 93 94 93 O2 Delivery Room Air Room Air Room Air Room Air 04/30/21 04/30/21 12:00 12:55 Pulse 62 82 Resp 24 B/P (MAP) Pulse Ox 93 O2 Delivery Room Air 04/30/21 00:00 Intake Total 540 ml Balance 540 ml Weight (Pounds): 291 Weight (Ounces): 6.0 Weight (Calculated Kilograms): 132.842757 Constitutional: AAO x 3, well-developed, well-nourished Respiratory: No accessory muscle use; other (good, bilat air entry) Cardiovascular: irregularly irregular, S1 and S2, systolic murmur (soft [place] at card base) Gastrointestional: No tender; soft; No guarding, No rebound; audible bowel sounds Extremities: No clubbing, No cyanosis, No significant edema Neurologic/Psychiatric: oriented x 3, other (moves all limbs equally) Skin: No rash on exposed areas, No ulcerations on exposed areas Results/Procedures: Labs Laboratory Tests 04/29/21 17:17: White Blood Count 17.8H, Red Blood Count 5.05, Hemoglobin 15.0, Hematocrit 46, Mean Corpuscular Volume 91, Mean Corpuscular Hemoglobin 30, Mean Corpuscular Hemoglobin Concent 33, Red Cell Distribution Width 14.0, Platelet Count 218, Mean Platelet Volume 9.0, Immature Granulocyte % (Auto) 2, Neutrophils (%) (Auto) 80H, Lymphocytes (%) (Auto) 9L, Monocytes (%) (Auto) 8, Eosinophils (%) (Auto) 1, Basophils (%) (Auto) 0, Neutrophils # (Auto) 14.3H, Lymphocytes # (Auto) 1.6, Monocytes # (Auto) 1.4H, Eosinophils # (Auto) 0.2, Basophils # (Auto) 0.0, Immature Granulocyte # (Auto) 0.3H, Sodium Level 139, Potassium Level 4.4, Chloride Level 102, Carbon Dioxide Level 27, Anion Gap 10, Blood Urea Nitrogen 29H, Creatinine 1.08, Estimat Glomerular Filtration Rate 50, BUN/Creatinine Ratio 27, Glucose Level 116H, Calcium Level 9.6, Corrected Calc ium 9.9, Total Bilirubin 0.7, Aspartate Amino Transf (AST/SGOT) 12, Alanine Aminotransferase (ALT/SGPT) 22, Alkaline Phosphatase 64, B-Type Natriuretic Peptide < 10.0, Total Protein 6.0L, Albumin 3.6 04/30/21 04:05: White Blood Count 15.2H, Red Blood Count 4.60, Hemoglobin 13.4, Hematocrit 42, Mean Corpuscular Volume 91, Mean Corpuscular Hemoglobin 29, Mean Corpuscular Hemoglobin Concent 32, Red Cell Distribution Width 14.2, Platelet Count 182, Mean Platelet Volume 9.3, Immature Granulocyte % (Auto) 2, Neutrophils (%) (Auto) 74, Lymphocytes (%) (Auto) 14, Monocytes (%) (Auto) 8, Eosinophils (%) (Auto) 2, Basophils (%) (Auto) 0, Neutrophils # (Auto) 11.3H, Lymphocytes # (Auto) 2.2, Monocytes # (Auto) 1.2H, Eosinophils # (Auto) 0.2, Basophils # (Auto) 0.0, Immature Granulocyte # (Auto) 0.3H, Sodium Level 138, Potassium Level 4.1, Chloride Level 102, Carbon Dioxide Level 24, Anion Gap 12, Blood Urea Nitrogen 32H, Creatinine 1.03, Estimat Glomerular Filtration Rate 52, BUN/Creatinine Ratio 31, Glucose Level 131H, Calcium Level 9.0, Corrected Calcium 9.6, Total Bilirubin 1.1H, Aspartate Amino Transf (AST/SGOT) 9, Alanine Aminotransferase (ALT/SGPT) 18, Alkaline Phosphatase 54, Total Protein 5.2L, Albumin 3.2, Phosphorus Level 4.2, Magnesium Level 2.1 A/P: Assessment: Paroxysmal A fib and typical A flutter - first documented on 09-30-18 at [facility]). Placed on flecainide at [facility] on 09/30/18 - has had typical atrial flutter ablation by Dr Thompson on 01/30/19 - has had ILR placement by Dr Thompson n 04/06/19 - Post a-fib ablation on 05-22-2019 by . Now off flecainide - ILR interrogation of Feb 2021 showed episodes of a-fib with RVR in January - awaiting apptt at [facility] for recurrent a fib at [facility] (Dr Thompson) - OAC with Eliquis CAD - Minor coronary artery disease per cardiac catheterization of July 2006. - MPI of 01/17/15 did not show ischemia or infarction, and LVEF was 54% - Echo 12/16/18 showed LVEF 60-65%, mild MR, RVSP 25 mmHg Abnormal ECG - RBBB, chronic History of bronchial asthma - managed by PCP Hyperlipidemia - being treated and being followed by Dr. Broderick. Glucose intolerance - being managed by Dr. Broderick Hypertension - not well controlled at the time of this admission Obesity - Elevated body mass index of approximately 44 Chronic diastolic CHF - clinically compensated Carotid dz - Minimal carotid arterial disease on carotid u/s of 03/09/17 H/o mild pulmonary hypertension - probable related to obesity-hypoventilation syndrome due to body habitus, improved since treatment of ADOLPH. Obstructive sleep apnea syndrome - treated with C-PAP therapy. History of overactive bladder and urinary incontinence - S/p botox injection in September 2017 and Mar 2019 by her urologist in [facility] in [place]. Orthopedic - Left knee and R hip replacement. Plan: * Dilt increased. BB added back to regimen * D/c hydralazine to provide room on bp * Monitor and correct labs * Oral anticoag for stroke prophylaxis * Ok to d/c from cardiac standpoint * Has outpt f/u apptt at our office on 05/02/21 QAMAR GONZALEZ MD FACP FAC CCDS Apr 30, 2021 13:50
--- NOTE | 2021-04-30 14:18 | History & Physical ---
RICHARPILLO 04/30/21 1418: History of Present Illness History of Present Illness Reason for visit/HPI CC: AFib w RVR 76 yo woman w/ hx of CAD, CHF, pulm HTN, glucose intolerance, ADOLPH, chronic RBBB and COPD w recent exacerbation presents to ICU after clinic evaluation revealed AFib with RVR. Pt first noticed heart palpitations last week after being taken off of metoprolol. Pt had been hospitalized with COPD and emphysema last week. Date of Admission Apr 29, 2021 at 16:07 I consulted on this patient on 04/30/21 14:13 Attending Physician Breanna Darnell DO Admitting Physician Breanna Darnell DO Consult Allergies and Home Medications Allergies Coded Allergies: sulfamethoxazole (Verified Allergy, Intermediate, rash, SOB, 10/23/18) trimethoprim (Verified Allergy, Intermediate, rash, SOB, 10/23/18) cephalexin (Verified Allergy, Unknown, 10/02/18) Patient Home Medication List ALPRAZolam (ALPRAZolam) 0.25 Mg Tablet, 0.25 MG PO Q8H PRN for ANXIETY, (Reported) Entered as Reported by: TOMI OCONNOR on 04/17/21 1700 Last Action: Continued Albuterol Sulfate (Proair Hfa) 1 Puff Puff, 2 PUFF IH Q4H PRN for SHORTNESS OF BREATH, (Reported) Entered as Reported by: EDGARDO RIVAS on 12/15/18 1531 Last Action: Continued Amlodipine Besylate (Norvasc) 10 Mg Tablet, 10 MG PO DAILY Prescribed by: RASHAUN HORN on 04/21/21 0920 Last Action: Continued Apixaban (Eliquis) 5 Mg Tablet, 5 MG PO BID, (Reported) Entered as Reported by: EDGARDO RIVAS on 10/03/18 1127 Last Action: Continued Atorvastatin Calcium (Atorvastatin Calcium) 20 Mg Tablet, 20 MG PO HS, (Reported) Entered as Reported by: EDGARDO RIVAS on 10/03/18 112 Last Action: Continued Baclofen (Baclofen) 10 Mg Tablet, 10 MG PO BID PRN for MUSCLE SPASMS, (Reported) Entered as Reported by: TOMI OCONNOR on 04/17/21 1700 Last Action: Continued Cholecalciferol (Vitamin D3) (Vitamin D3) 125 Mcg/1 Ml Drops, 125 MCG PO DAILY, (Reported) Entered as Reported by: TOMI OCONNOR on 06/17/20 1121 Last Action: Converted Diltiazem HCl (Diltiazem ER) 240 Mg Capsule.er, 240 MG PO DAILY, (Reported) Entered as Reported by: EDGARDO RIVAS on 12/15/18 1531 Last Action: Converted Diltiazem HCl (Diltiazem 24Hr ER) 240 Mg Cap.er.24h, 240 MG PO BID Prescribed by: RASHAUN HORN on 04/30/21 0943 Docusate Sodium (Docusate Sodium) 100 Mg Capsule, 100 MG PO TID PRN for CONSTIPATION-1ST LINE, (Reported) Entered as Reported by: TOMI OCONNOR on 04/17/21 1700 Last Action: Continued Estradiol (Estradiol Tablet) 0.5 Mg Tablet, 0.5 MG PO DAILY, (Reported) Entered as Reported by: VICTOR MANUEL DASILVA on 05/28/16 1331 Last Action: Converted Fluticasone Propionate (Fluticasone Propionate) 16 Gm [place].susp, 2 SPRAYS NS HS PRN for ALLERGIES, (Reported) Entered as Reported by: EDGARDO RIVAS on 10/03/18 1127 Last Action: Continued Fluticasone/Salmeterol (Advair 100-50 Diskus) 1 Each Blst.w.dev, 1 PUFF INH BID PRN for SHORTNESS OF BREATH, (Reported) Entered as Reported by: EDGARDO RIVAS on 12/29/16 0815 Last Action: Converted Furosemide (Furosemide) 40 Mg Tablet, 40 MG PO DAILY PRN for FLUID RETENTION, (Reported) Entered as Reported by: TOMI OCONNOR on 05/22/19 0744 Last Action: Continued Hydralazine HCl (Hydralazine HCl) 25 Mg Tablet, 25 MG PO TID Prescribed by: BREANNA DARNELL on 04/21/21 0903 Last Action: Continued Ipratropium/Albuterol Sulfate (Iprat-Albut 0.5-3(2.5) mg/3 ml) 3 Ml Ampul.neb, 3 ML INH RTBID Prescribed by: BREANNA DARNELL on 04/21/21 0929 Last Action: Continued Lisinopril (Lisinopril) 20 Mg Tablet, 40 MG PO DAILY Prescribed by: BREANNA DARNELL on 04/21/21902 Last Action: Continued Loratadine (Loratadine) 10 Mg Tablet, 10 MG PO DAILY, (Reported) Entered as Reported by: TOMI OCONNOR on 05/22/19743 Last Action: Continued Metoprolol Succinate (Metoprolol Succinate) 25 Mg Tab.er.24h, 25 MG PO BID Prescribed by: RASHAUN HORN on 04/30/21942 Montelukast Sodium (Montelukast Sodium) 10 Mg Tablet, 10 MG PO HS, (Reported) Entered as Reported by: EDGARDO RIVAS on 10/03/181126 Last Action: Continued Oxycodone HCl/Acetaminophen (Oxycodone-Acetaminophen 5-325) 1 Each Tablet, 1-2 EA PO Q6H PRN for PAIN-MODERATE (5-7), (Reported) Entered as Reported by: TOMI OCONNOR on 04/17/211699 Last Action: Continued Potassium Chloride (Potassium Chloride) 10 Meq Capsule.er, 20 MEQ PO DAILY PRN for WHEN TAKING FUROSEMIDE, (Reported) Entered as Reported by: TOMI OCONNOR on 06/17/201120 Last Action: Converted Prednisone (Prednisone) 10 Mg Tab.ds.pk, 10 MG PO DAILY Prescribed by: BREANNA DARNELL on 04/21/21902 Last Action: Held Sertraline HCl (Sertraline HCl) 100 Mg Tablet, 150 MG PO DAILY, (Reported) Entered as Reported by: EDGARDO RIVAS on 10/03/181126 Last Action: Continued Tizanidine HCl (Tizanidine HCl) 4 Mg Tablet, 4 MG PO TID PRN for MUSCLE SPASMS, (Reported) Entered as Reported by: TOMI OCONNOR on 04/17/211699 Last Action: Continued Trazodone HCl (Trazodone HCl) 50 Mg Tablet, 50 MG PO HS, (Reported) Entered as Reported by: EDGARDO RIVAS on 10/03/181126 Last Action: Continued Past Adlzexy-Opxotj-Ncpcyb Hx Immunizations Up To Date Date of Influenza Vaccine: Apr 16, 2020 First/Initial COVID19 Vaccinat: 09/23/20 Second COVID19 Vaccination Jamar: 10/24/20 Tetanus Booster (TDap): Less Than 5 Years Hepatitis A: No Hepatitis B: No Date of Pneumonia Vaccine: Apr 04, 2020 Seasonal Allergies Seasonal Allergies: Yes Current Status Primary Language: Bermudian Past Medical History Surgeries: Orthopedic Pneumonia, Sleep Apnea Currently Using CPAP: Yes Currently Using BIPAP: No Atrial Fibrillation, Chronic Edema/Swelling, High Cholesterol, Hypertension 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: 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 Sexually Transmitted Disease: No Bladder Infection Gastroesophageal Reflux Arthritis, Chronic Back Pain Diabetes, Non-Insulin dep Cataract Loss of Vision: Bilateral Hearing Impairment: Denies Anxiety, Depression Blood Disorders: No Adverse Reaction/Blood Tranf: No Family Medical History Arthritis 19 MOTHER Cataracts 19 FATHER 19 MOTHER Colon cancer 19 FATHER Deafness or hearing loss 19 FATHER Dementia 19 FATHER FH: macular degeneration 19 MOTHER FH: prostate cancer 19 FATHER FH: skin cancer 19 FATHER Gout 19 MOTHER Hypertension 19 FATHER 19 MOTHER Myocardial infarction 19 FATHER 19 MOTHER Review of Systems Constitutional: malaise Cardiovascular: palpitations Psychiatric/Neurological: Anxiety Physical Exam Vital Signs Vital Signs - First Documented 04/29/21 04/29/21 20:42 23:10 Temp 35.9 O2 Flow Rate 2.00 Capillary Refill : Less Than 3 Seconds Height, Weight, BMI Height: 5'7.00" Weight: 291lbs. 6.0oz. 132.446588uk; 44.56 BMI Method:Stated General Appearance: No Apparent Distress, WD/WN, Obese Respiratory: Normal Breath Sounds, No Accessory Muscle Use Cardiovascular: Irregularly Irregular Extremity: Pedal Edema Neurologic/Psychiatric: Alert, Oriented x3 Skin: Normal Color Assessment/Plan Assessment and Plan Assessment AFib w/ RVR CAD Diastolic CHF ADOLPH Glucose intolerance Asthma Plan: Move to 4th floor for monitoring Restarted metoprolol Increased diltiazem Added beta blockers Oral anticoag for stroke prophylaxis D/C hydralazine Continue CPap use Follow up on Electrophysiology appt at [facility] 05/01/21 7061: History of Present Illness History of Present Illness Reason for visit/HPI CC: AF with RVR HPI: This is a 76yoWF who was admitted from my office due to episodes of AF with RVR and SOB at home for 2 days. She had gone to the ER two days prior and finally she became frightened. She came to my office, was admitted, Dr. Ang saw her, started her back on Metoprolol, increased to Diltaizem and she will be moved to 4th floor for PT and OT and will go home tomorrow. Time Seen by a Provider: 10:00 Allergies and Home Medications Allergies Coded Allergies: sulfamethoxazole (Verified Allergy, Intermediate, rash, SOB, 10/23/18) trimethoprim (Verified Allergy, Intermediate, rash, SOB, 10/23/18) cephalexin (Verified Allergy, Unknown, 10/02/18) Patient Home Medication List Home Medication List Reviewed: Yes ALPRAZolam (ALPRAZolam) 0.25 Mg Tablet, 0.25 MG PO Q8H PRN for ANXIETY, (Reported) Entered as Reported by: TOMI OCONNOR on 04/17/211699 Last Action: Continued Albuterol Sulfate (Proair Hfa) 1 Puff Puff, 2 PUFF IH Q4H PRN for SHORTNESS OF BREATH, (Reported) Entered as Reported by: EDGARDO RIVAS on 12/15/181530 Last Action: Continued Amlodipine Besylate (Norvasc) 10 Mg Tablet, 10 MG PO DAILY Prescribed by: RASHAUN HORN on 04/21/21 0920 Last Action: Continued Apixaban (Eliquis) 5 Mg Tablet, 5 MG PO BID, (Reported) Entered as Reported by: EDGARDO RIVAS on 10/03/181126 Last Action: Continued Atorvastatin Calcium (Atorvastatin Calcium) 20 Mg Tablet, 20 MG PO HS, (Reported) Entered as Reported by: EDGARDO RIVAS on 10/03/181126 Last Action: Continued Baclofen (Baclofen) 10 Mg Tablet, 10 MG PO BID PRN for MUSCLE SPASMS, (Reported) Entered as Reported by: TOMI OCONNOR on 04/17/211699 Last Action: Continued Cholecalciferol (Vitamin D3) (Vitamin D3) 125 Mcg/1 Ml Drops, 125 MCG PO DAILY, (Reported) Entered as Reported by: TOMI OCONNOR on 06/17/201120 Last Action: Converted Diltiazem HCl (Diltiazem ER) 240 Mg Capsule.er, 240 MG PO DAILY, (Reported) Entered as Reported by: EDGARDO RIVAS on 12/15/181530 Last Action: Converted Diltiazem HCl (Diltiazem 24Hr ER) 240 Mg Cap.er.24h, 240 MG PO BID Prescribed by: RASHAUN HORN on 04/30/21 0943 Docusate Sodium (Docusate Sodium) 100 Mg Capsule, 100 MG PO TID PRN for CON STIPATION-1ST LINE, (Reported) Entered as Reported by: TOMI OCONNOR on 04/17/21 1700 Last Action: Continued Estradiol (Estradiol Tablet) 0.5 Mg Tablet, 0.5 MG PO DAILY, (Reported) Entered as Reported by: VICTOR MANUEL DASILVA on 05/28/16 1331 Last Action: Converted Fluticasone Propionate (Fluticasone Propionate) 16 Gm [place].susp, 2 SPRAYS NS HS PRN for ALLERGIES, (Reported) Entered as Reported by: EDGARDO RIVAS on 10/03/18 1127 Last Action: Continued Fluticasone/Salmeterol (Advair 100-50 Diskus) 1 Each Blst.w.dev, 1 PUFF INH BID PRN for SHORTNESS OF BREATH, (Reported) Entered as Reported by: EDGARDO RIVAS on 12/29/16 0815 Last Action: Converted Furosemide (Furosemide) 40 Mg Tablet, 40 MG PO DAILY PRN for FLUID RETENTION, (Reported) Entered as Reported by: TOMI OCONNOR on 05/22/19743 Last Action: Continued Hydralazine HCl (Hydralazine HCl) 25 Mg Tablet, 25 MG PO TID Prescribed by: BREANNA DARNELL on 04/21/21902 Last Action: Continued Ipratropium/Albuterol Sulfate (Iprat-Albut 0.5-3(2.5) mg/3 ml) 3 Ml Ampul.neb, 3 ML INH RTBID Prescribed by: BREANNA DARNELL on 04/21/21928 Last Action: Continued Lisinopril (Lisinopril) 20 Mg Tablet, 40 MG PO DAILY Prescribed by: BREANNA DARNELL on 04/21/21902 Last Action: Continued Loratadine (Loratadine) 10 Mg Tablet, 10 MG PO DAILY, (Reported) Entered as Reported by: TOMI OCONNOR on 05/22/19743 Last Action: Continued Metoprolol Succinate (Metoprolol Succinate) 25 Mg Tab.er.24h, 25 MG PO BID Prescribed by: RASHAUN HORN on 04/30/21942 Montelukast Sodium (Montelukast Sodium) 10 Mg Tablet, 10 MG PO HS, (Reported) Entered as Reported by: EDGARDO RIVAS on 10/03/181126 Last Action: Continued Oxycodone HCl/Acetaminophen (Oxycodone-Acetaminophen 5-325) 1 Each Tablet, 1-2 EA PO Q6H PRN for PAIN-MODERATE (5-7), (Reported) Entered as Reported by: TOMI OCONNOR on 04/17/21 1700 Last Action: Continued Potassium Chloride (Potassium Chloride) 10 Meq Capsule.er, 20 MEQ PO DAILY PRN for WHEN TAKING FUROSEMIDE, (Reported) Entered as Reported by: TOMI OCONNOR on 06/17/20 112 Last Action: Converted Prednisone (Prednisone) 10 Mg Tab.ds.pk, 10 MG PO DAILY Prescribed by: BREANNA DARNELL on 04/21/21 0903 Last Action: Held Sertraline HCl (Sertraline HCl) 100 Mg Tablet, 150 MG PO DAILY, (Reported) Entered as Reported by: EDGARDO RIVAS on 10/03/181126 Last Action: Continued Tizanidine HCl (Tizanidine HCl) 4 Mg Tablet, 4 MG PO TID PRN for MUSCLE SPASMS, (Reported) Entered as Reported by: TOMI OCONNOR on 04/17/21 170 Last Action: Continued Trazodone HCl (Trazodone HCl) 50 Mg Tablet, 50 MG PO HS, (Reported) Entered as Reported by: EDGARDO RIVAS on 10/03/181126 Last Action: Continued Past Zvjkcff-Yztoyz-Okyvdc Hx Patient Social History Marrital Status: Employed/Student: retired Smoking Status: Never a Smoker Past Medical History Asthma, Sleep Apnea Currently Using CPAP: Yes Currently Using BIPAP: No Atrial Fibrillation, High Cholesterol, Hypertension Family Medical History Arthritis 19 MOTHER Cataracts 19 FATHER 19 MOTHER Colon cancer 19 FATHER Deafness or hearing loss 19 FATHER Dementia 19 FATHER FH: macular degeneration 19 MOTHER FH: prostate cancer 19 FATHER FH: skin cancer 19 FATHER Gout 19 MOTHER Hypertension 19 FATHER 19 MOTHER Myocardial infarction 19 FATHER 19 MOTHER Review of Systems Constitutional: see HPI, malaise EENTM: no symptoms reported Respiratory: short of breath Cardiovascular: palpitations Gastrointestinal: no symptoms reported Musculoskeletal: no symptoms reported Skin: no symptoms reported Psychiatric/Neurological: No Symptoms Reported All Other Systems Reviewed Negative Unless Noted: Yes Physical Exam General Appearance: No Apparent Distress, WD/WN, Chronically ill, Obese Eyes: Bilateral Eye Normal Inspection, Bilateral Eye PERRL, Bilateral Eye EOMI HEENT: PERRL/EOMI, Normal ENT Inspection, Pharynx Normal Neck: Full Range of Motion, Normal Inspection, Non Tender, Supple, Carotid Bruit Respiratory: Chest Non Tender, Lungs Clear, Normal Breath Sounds, No Accessory Muscle Use, No Respiratory Distress Cardiovascular: No Edema, No Gallop, No JVD, No Murmur, Normal Peripheral Pulses, Irregularly Irregular Gastrointestinal: Normal Bowel Sounds, No Organomegaly, No Pulsatile Mass, Non Tender, Soft Back: Normal Inspection, No CVA Tenderness, No Vertebral Tenderness Extremity: Normal Capillary Refill, Normal Inspection, Normal Range of Motion, Non Tender, No Calf Tenderness, No Pedal Edema Neurologic/Psychiatric: Alert, Oriented x3, No Motor/Sensory Deficits, Normal Mood/Affect Skin: Normal Color, Warm/Dry Lymphatic: No Adenopathy Assessment/Plan Assessment and Plan Assessment: Paroxysmal atrial fibrillation with rapid ventricular response Plan: Telemetry Cardiology management Addition of metoprolol Increase diltiazem EPS appointment in 2 weeks Admission Diagnosis Admission Status: Observation Supervisory-Addendum Brief Verification & Attestation Participated in pt care: history, MDM, physical Personally performed: exam, history, MDM, supervision of care Care discussed with: Medical Student Procedures: n/a Results interpretation: Verified all documentation Verification and Attestation of Medical Student E/M Service A medical student performed and documented this service in my presence. I reviewed and verified all information documented by the medical student and made modifications to such information, when appropriate. I personally performed the physical exam and medical decision making. Breanna Darnell, May 01, 2021,05:27 PILLO MCQUEEN Apr 30, 2021 14:18 BREANNA DARNELL DO May 01, 2021 05:27
[2021-04-30] MEDS: RT--FLUTICASONE/SALMETEROL 113-14 (AIRDUO RespiCLICK) IH PRN (20:59)
[2021-04-30] MEDS: MONTELUKAST 10 MG (SINGULAIR) TAB PO SCH (21:06)
[2021-04-30] MEDS: ALPRAZolam 0.25 MG (XANAX) TAB PO PRN (22:13)
[2021-04-30] MEDS: traZODone 50 MG (DESYREL) TAB PO SCH (22:13)
[2021-05-01 00:32] VITALS: BP 107/63
[2021-05-01 04:48] LABS: BASOPHILS % (AUTO) 0 % (0-10); EOSINOPHILS # (AUTO) 0.2 10^3/uL (0.0-0.3); EOSINOPHILS % (AUTO) 2 % (0-10); HEMATOCRIT 40 % (35-52); HEMOGLOBIN 12.7 g/dL (11.5-16.0); LYMPHOCYTES # (AUTO) 1.7 10^3/uL (1.0-4.0); LYMPHOCYTES % (AUTO) 13 % (12-44); MEAN CORPUSCULAR HEMOGLOBIN 29 pg (25-34); MEAN CORPUSCULAR HGB CONC 32 g/dL (32-36); MEAN CORPUSCULAR VOLUME 91 fL (80-99); MEAN PLATELET VOLUME 9.8 fL (9.0-12.2); MONOCYTES % (AUTO) 8 % (0-12); NEUTROPHILS # (AUTO) 9.6 10^3/uL (1.8-7.8); NEUTROPHILS % (AUTO) 76 % (42-75); PLATELET COUNT 171 10^3/uL (130-400); WHITE BLOOD COUNT 12.6 10^3/uL (4.3-11.0)
[2021-05-01 05:12] VITALS: BP 116/60
[2021-05-01 05:46] LABS: POTASSIUM 4.2 MMOL/L (3.6-5.0)
[2021-05-01 05:47] LABS: CALCIUM 8.5 MG/DL (8.5-10.1)
[2021-05-01 05:49] LABS: TOTAL PROTEIN 5.1 GM/DL (6.4-8.2)
[2021-05-01 05:52] LABS: CREATININE SERUM 0.82 MG/DL (0.60-1.30)
[2021-05-01] MEDS: RT-ALBUTEROL/IPRATROPIUM 3 ML (DUONEB) VIAL INH SCH (07:29)
[2021-05-01] MEDS: RT--FLUTICASONE/SALMETEROL 113-14 (AIRDUO RespiCLICK) IH PRN (07:29)
[2021-05-01] MEDS: APIXABAN 5 MG (ELIQUIS) TABLET PO SCH (08:48)
[2021-05-01] MEDS: amLODIPine 10 MG (NORVASC) TAB PO SCH (08:48)
[2021-05-01] MEDS: ESTRADIOL 1 MG TAB (ESTRACE) PO SCH (08:49)
[2021-05-01] MEDS: SENNA W/DOCUSATE (SENOKOT S) TABLET PO SCH (08:49)
[2021-05-01] MEDS: lisINopril 40 MG (PRINIVIL) TABLET PO SCH (08:49)
[2021-05-01] MEDS: LORATADINE (CLARITIN) 10 MG TAB PO SCH (08:49)
[2021-05-01] MEDS: SERTRALINE 100 MG (ZOLOFT) TAB PO SCH (08:49)
[2021-05-01] MEDS: VITAMIN D3 125 MCG (5,000 UNITS) CAPSULE PO SCH (08:49)
--- NOTE | 2021-05-01 10:50 | Discharge Summary ---
Diagnosis/Chief Complaint Date of Admission Apr 29, 2021 at 16:07 Date of Discharge Discharge Date: May 01, 2021 Discharge Diagnosis Atrial fibrillation with rapid ventricular response Reason Hospital Visit CC: AF with RVR HPI: This is a 76yoWF who was admitted from my office due to episodes of AF with RVR and SOB at home for 2 days. She had gone to the ER two days prior and finally she became frightened. She came to my office, was admitted, Dr. Ang saw her, started her back on Metoprolol, increased to Diltaizem and she will be moved to 4th floor for PT and OT and will go home tomorrow. Discharge Summary Discharge Physical Examination Allergies: Coded Allergies: sulfamethoxazole (Verified Allergy, Intermediate, rash, SOB, 10/23/18) trimethoprim (Verified Allergy, Intermediate, rash, SOB, 10/23/18) cephalexin (Verified Allergy, Unknown, 10/02/18) Vitals & I&Os Vital Signs Date Time Temp Pulse Resp B/P (MAP) Pulse Ox O2 Delivery O2 Flow Rate FiO2 05/01/21 12:11 36.0 05/01/21 12:00 05/01/21 08:00 94 Room Air 05/01/21 08:00 79 79 2.00 General Appearance: Alert, Oriented X3, Cooperative Respiratory: Clear to Auscultation Neuro: Normal Gait, Normal Speech, Strength at 5/5 X4 Ext Psych/Mental Status: Mental Status NL Hospital Course Was the Problem List Reviewed?: Yes 76 yo woman with hx of AFib w RVR, CAD, recent COPD exacerbation, ADOLPH, chronic RBBB, asthma, hyperlipidemia, glucose intolerance, HTN, obesity, diastolic HF, and overactive bladder presented to IM clinic after 2 days of SOB and palpitations. Clinic exam revealed AFib w RVR; pt was admitted to the ICU on 04/29. Cardiology consult restarted the pt on metoprolol, increased her diltiazem, and discontinued hydralazine. Pt continued her regular medication regimen and was on anticoag prophylaxis during the course of her stay. Pt improved rapidly and was monitored for two days before being discharged on 05/01. Pt has a f/u appt with Dr. Arvizu tomorrow (05/02), with Dr. Darnell next week, and for EPS in two weeks. Pt received flu shot during her stay. PILLO MCQUEEN Labs (last 24 hrs) Laboratory Tests 04/29/21 17:17: White Blood Count 17.8H, Red Blood Count 5.05, Hemoglobin 15.0, Hematocrit 46, Mean Corpuscular Volume 91, Mean Corpuscular Hemoglobin 30, Mean Corpuscular Hemoglobin Concent 33, Red Cell Distribution Width 14.0, Platelet Count 218, Mean Platelet Volume 9.0, Immature Granulocyte % (Auto) 2, Neutrophils (%) (Auto) 80H, Lymphocytes (%) (Auto) 9L, Monocytes (%) (Auto) 8, Eosinophils (%) (Auto) 1, Basophils (%) (Auto) 0, Neutrophils # (Auto) 14.3H, Lymphocytes # (Auto) 1.6, Monocytes # (Auto) 1.4H, Eosinophils # (Auto) 0.2, Basophils # (Auto) 0.0, Immature Granulocyte # (Auto) 0.3H, Sodium Level 139, Potassium Level 4.4, Chloride Level 102, Carbon Dioxide Level 27, Anion Gap 10, Blood Urea Nitrogen 29H, Creatinine 1.08, Estimat Glomerular Filtration Rate 50, BUN/Creatinine Ratio 27, Glucose Level 116H, Calcium Level 9.6, Corrected Calcium 9.9, Total Bilirubin 0.7, Aspartate Amino Transf (AST/SGOT) 12, Alanine Aminotransferase (ALT/SGPT) 22, Alkaline Phosphatase 64, B-Type Natriuretic Peptide < 10.0, Total Protein 6.0L, Albumin 3.6 04/30/21 04:05: White Blood Count 15.2H, Red Blood Count 4.60, Hemoglobin 13.4, Hematocrit 42, Mean Corpuscular Volume 91, Mean Corpuscular Hemoglobin 29, Mean Corpuscular Hemoglobin Concent 32, Red Cell Distribution Width 14.2, Platelet Count 182, Mean Platelet Volume 9.3, Immature Granulocyte % (Auto) 2, Neutrophils (%) (Auto) 74, Lymphocytes (%) (Auto) 14, Monocytes (%) (Auto) 8, Eosinophils (%) (Auto) 2, Basophils (%) (Auto) 0, Neutrophils # (Auto) 11.3H, Lymphocytes # (Auto) 2.2, Monocytes # (Auto) 1.2H, Eosinophils # (Auto) 0.2, Basophils # (Auto) 0.0, Immature Granulocyte # (Auto) 0.3H, Sodium Level 138, Potassium Level 4.1, Chloride Level 102, Carbon Dioxide Level 24, Anion Gap 12, Blood Urea Nitrogen 32H, Creatinine 1.03, Estimat Glomerular Filtration Rate 52, BUN/Creatinine Ratio 31, Glucose Level 131H, Calcium Level 9.0, Corrected Calcium 9.6, Total Bilirubin 1.1H, Aspartate Amino Transf (AST/SGOT) 9, Alanine Aminotransferase (ALT/SGPT) 18, Alkaline Phosphatase 54, Total Protein 5.2L, Albumin 3.2, Phosphorus Level 4.2, Magnesium Level 2.1 05/01/21 04:07: White Blood Count 12.6H, Red Blood Count 4.35, Hemoglobin 12.7, Hematocrit 40, Mean Corpuscular Volume 91, Mean Corpuscular Hemoglobin 29, Mean Corpuscular Hemoglobin Concent 32, Red Cell Distribution Width 14.1, Platelet Count 171, Mean Platelet Volume 9.8, Immature Granulocyte % (Auto) 1, Neutrophils (%) (Auto) 76H, Lymphocytes (%) (Auto) 13, Monocytes (%) (Auto) 8, Eosinophils (%) (Auto) 2, Basophils (%) (Auto) 0, Neutrophils # (Auto) 9.6H, Lymphocytes # (Auto) 1.7, Monocytes # (Auto) 1.0, Eosinophils # (Auto) 0.2, Basophils # (Auto) 0.0, Immature Granulocyte # (Auto) 0.2H, Sodium Level 138, Potassium Level 4.2, Chloride Level 104, Carbon Dioxide Level 23, Anion Gap 11, Blood Urea Nitrogen 23H, Creatinine 0.82, Estimat Glomerular Filtration Rate 68, BUN/Creatinine Ratio 28, Glucose Level 133H, Calcium Level 8.5, Corrected Calcium 9.3, Total Bilirubin 1.0, Aspartate Amino Transf (AST/SGOT) 11, Alanine Aminotransferase (ALT/SGPT) 18, Alkaline Phosphatase 50, Total Protein 5.1L, Albumin 3.0L Microbiology 04/29/21 MRSA Screen - Final, Complete MRSA not isolated Pending Labs Microbiology Date/Time Source Procedure Growth Status 04/29/21 17:04 Nasal MRSA Screen - Final MRSA not isolated Complete Laboratory Tests 04/29/21 17:17: White Blood Count 17.8, Red Blood Count 5.05, Hemoglobin 15.0, Hematocrit 46, Mean Corpuscular Volume 91, Mean Corpuscular Hemoglobin 30, Mean Corpuscular Hemoglobin Concent 33, Red Cell Distribution Width 14.0, Platelet Count 218, Mean Platelet Volume 9.0, Immature Granulocyte % (Auto) 2, Neutrophils (%) (A uto) 80, Lymphocytes (%) (Auto) 9, Monocytes (%) (Auto) 8, Eosinophils (%) (Auto) 1, Basophils (%) (Auto) 0, Neutrophils # (Auto) 14.3, Lymphocytes # (Auto) 1.6, Monocytes # (Auto) 1.4, Eosinophils # (Auto) 0.2, Basophils # (Auto) 0.0, Immature Granulocyte # (Auto) 0.3, Sodium Level 139, Potassium Level 4.4, Chloride Level 102, Carbon Dioxide Level 27, Anion Gap 10, Blood Urea Nitrogen 29, Creatinine 1.08, Estimat Glomerular Filtration Rate 50, BUN/Creatinine Ratio 27, Glucose Level 116, Calcium Level 9.6, Corrected Calcium 9.9, Total Bilirubin 0.7, Aspartate Amino Transf (AST/SGOT) 12, Alanine Aminotransferase (ALT/SGPT) 22, Alkaline Phosphatase 64, B-Type Natriuretic Peptide < 10.0, Total Protein 6.0, Albumin 3.6 04/30/21 04:05: White Blood Count 15.2, Red Blood Count 4.60, Hemoglobin 13.4, Hematocrit 42, Mean Corpuscular Volume 91, Mean Corpuscular Hemoglobin 29, Mean Corpuscular Hemoglobin Concent 32, Red Cell Distribution Width 14.2, Platelet Count 182, Mean Platelet Volume 9.3, Immature Granulocyte % (Auto) 2, Neutrophils (%) (Auto) 74, Lymphocytes (%) (Auto) 14, Monocytes (%) (Auto) 8, Eosinophils (%) (Auto) 2, Basophils (%) (Auto) 0, Neutrophils # (Auto) 11.3, Lymphocytes # (Auto) 2.2, Monocytes # (Auto) 1.2, Eosinophils # (Auto) 0.2, Basophils # (Auto) 0.0, Immature Granulocyte # (Auto) 0.3, Sodium Level 138, Potassium Level 4.1, Chloride Level 102, Carbon Dioxide Level 24, Anion Gap 12, Blood Urea Nitrogen 32, Creatinine 1.03, Estimat Glomerular Filtration Rate 52, BUN/Creatinine Ratio 31, Glucose Level 131, Calcium Level 9.0, Corrected Calcium 9.6, Total Bilirubin 1.1, Aspartate Amino Transf (AST/SGOT) 9, Alanine Aminotransferase (ALT/SGPT) 18, Alkaline Phosphatase 54, Total Protein 5.2, Albumin 3.2, Phosphorus Level 4.2, Magnesium Level 2.1 05/01/21 04:07: White Blood Count 12.6, Red Blood Count 4.35, Hemoglobin 12.7, Hematocrit 40, M jassi Corpuscular Volume 91, Mean Corpuscular Hemoglobin 29, Mean Corpuscular Hemoglobin Concent 32, Red Cell Distribution Width 14.1, Platelet Count 171, Mean Platelet Volume 9.8, Immature Granulocyte % (Auto) 1, Neutrophils (%) (Auto) 76, Lymphocytes (%) (Auto) 13, Monocytes (%) (Auto) 8, Eosinophils (%) (Auto) 2, Basophils (%) (Auto) 0, Neutrophils # (Auto) 9.6, Lymphocytes # (Auto) 1.7, Monocytes # (Auto) 1.0, Eosinophils # (Auto) 0.2, Basophils # (Auto) 0.0, Immature Granulocyte # (Auto) 0.2, Sodium Level 138, Potassium Level 4.2, Chloride Level 104, Carbon Dioxide Level 23, Anion Gap 11, Blood Urea Nitrogen 23, Creatinine 0.82, Estimat Glomerular Filtration Rate 68, BUN/Creatinine Ratio 28, Glucose Level 133, Calcium Level 8.5, Corrected Calcium 9.3, Total Bilirubin 1.0, Aspartate Amino Transf (AST/SGOT) 11, Alanine Aminotransferase (ALT/SGPT) 18, Alkaline Phosphatase 50, Total Protein 5.1, Albumin 3.0 Discharge Home Medications: Active Scripts Active Diltiazem 24Hr ER (Diltiazem HCl) 240 Mg Cap.er.24h 240 Mg PO BID Metoprolol Succinate 25 Mg Tab.er.24h 25 Mg PO BID Iprat-Albut 0.5-3(2.5) mg/3 ml (Ipratropium/Albuterol Sulfate) 3 Ml Ampul.neb 3 Ml INH RTBID Norvasc (Amlodipine Besylate) 10 Mg Tablet 10 Mg PO DAILY Lisinopril 20 Mg Tablet 40 Mg PO DAILY Reported ALPRAZolam 0.25 Mg Tablet 0.25 Mg PO Q8H PRN Docusate Sodium 100 Mg Capsule 100 Mg PO TID PRN Oxycodone-Acetaminophen 5-325 (Oxycodone HCl/Acetaminophen) 1 Each Tablet 1-2 Ea PO Q6H PRN Tizanidine HCl 4 Mg Tablet 4 Mg PO TID PRN Baclofen 10 Mg Tablet 10 Mg PO BID PRN Potassium Chloride 10 Meq Capsule.er 20 Meq PO DAILY PRN TAKES 2 (10MEQ) CAPS Vitamin D3 (Cholecalciferol (Vitamin D3)) 125 Mcg/1 Ml Drops 125 Mcg PO DAILY Furosemide 40 Mg Tablet 40 Mg PO DAILY PRN Loratadine 10 Mg Tablet 10 Mg PO DAILY Proair Hfa (Albuterol Sulfate) 1 Puff Puff 2 Puff IH Q4H PRN Montelukast Sodium 10 Mg Tablet 10 Mg PO HS Atorvastatin Calcium 20 Mg Tablet 20 Mg PO HS Trazodone HCl 50 Mg Tablet 50 Mg PO HS Sertraline HCl 100 Mg Tablet 150 Mg PO DAILY TAKES 1 & 1/2 (100MG) TABLET Eliquis (Apixaban) 5 Mg Tablet 5 Mg PO BID Fluticasone Propionate 16 Gm [place].susp 2 Sprays NS HS PRN Advair 100-50 Diskus (Fluticasone/Salmeterol) 1 Each Blst.w.dev 1 Puff INH BID PRN Estradiol Tablet (Estradiol) 0.5 Mg Tablet 0.5 Mg PO DAILY Instructions to patient/family Please see electronic discharge instructions given to patient. ANAY DARNELL DO May 01, 2021 10:50
--- NOTE | 2021-05-01 15:17 | Progress Note - Cardiology ---
Cardiology SOAP Progress Note Subjective: No cp or palp or syncope No shortness of breath at rest Malaise has improved Objective: I&O/Vital Signs 05/01/21 05/01/21 05/01/21 05/01/21 04:00 05:12 07:00 07:30 Temp 36.9 Pulse 61 70 Resp 17 B/P (MAP) 116/60 (78) Pulse Ox 94 95 O2 Delivery NIV CPAP Room Air O2 Flow Rate 2.00 05/01/21 05/01/21 05/01/21 05/01/21 07:49 08:00 08:00 12:00 Temp 36.9 Pulse 79 Resp 79 B/P (MAP) Pulse Ox 94 O2 Delivery NIV CPAP Room Air O2 Flow Rate 2.00 05/01/21 12:11 Temp 36.0 05/01/21 00:00 Intake Total 1320 ml Balance 1320 ml Weight (Pounds): 291 Weight (Ounces): 6.0 Weight (Calculated Kilograms): [phone] Constitutional: AAO x 3, well-developed, well-nourished Respiratory: other Cardiovascular: irregularly irregular, S1 and S2, systolic murmur Gastrointestional: soft, audible bowel sounds Extremities: No clubbing, No cyanosis, No significant edema Neurologic/Psychiatric: oriented x 3, other Skin: No rash on exposed areas, No ulcerations on exposed areas Results/Procedures: Labs Laboratory Tests 05/01/21 04:07: White Blood Count 12.6H, Red Blood Count 4.35, Hemoglobin 12.7, Hematocrit 40, Mean Corpuscular Volume 91, Mean Corpuscular Hemoglobin 29, Mean Corpuscular Hemoglobin Concent 32, Red Cell Distribution Width 14.1, Platelet Count 171, Mean Platelet Volume 9.8, Immature Granulocyte % (Auto) 1, Neutrophils (%) ( Auto) 76H, Lymphocytes (%) (Auto) 13, Monocytes (%) (Auto) 8, Eosinophils (%) (Auto) 2, Basophils (%) (Auto) 0, Neutrophils # (Auto) 9.6H, Lymphocytes # (Auto) 1.7, Monocytes # (Auto) 1.0, Eosinophils # (Auto) 0.2, Basophils # (Auto) 0.0, Immature Granulocyte # (Auto) 0.2H, Sodium Level 138, Potassium Level 4.2, Chloride Level 104, Carbon Dioxide Level 23, Anion Gap 11, Blood Urea Nitrogen 23H, Creatinine 0.82, Estimat Glomerular Filtration Rate 68, BUN/Creatinine Ratio 28, Glucose Level 133H, Calcium Level 8.5, Corrected Calcium 9.3, Total Bilirubin 1.0, Aspartate Amino Transf (AST/SGOT) 11, Alanine Aminotransferase (ALT/SGPT) 18, Alkaline Phosphatase 50, Total Protein 5.1L, Albumin 3.0L Microbiology 04/29/21 MRSA Screen - Final, Complete MRSA not isolated Laboratory Tests 04/29/21 17:17 04/30/21 04:05 05/01/21 04:07 A/P: Assessment: Paroxysmal A fib and typical A flutter - first documented on 09-30-18 at [facility]). Placed on flecainide at [facility] on 09/30/18 - has had typical atrial flutter ablation by Dr Thompson on 01/30/19 - has had ILR placement by Dr Thompson n 04/06/19 - Post a-fib ablation on 05-22-2019 by . Now off flecainide - ILR interrogation of Feb 2021 showed episodes of a-fib with RVR in January - awaiting apptt at [facility] for recurrent a fib at [facility] (Dr Thompson) - OAC with Eliquis CAD - Minor coronary artery disease per cardiac catheterization of July 2006. - MPI of 01/17/15 did not show ischemia or infarction, and LVEF was 54% - Echo 12/16/18 showed LVEF 60-65%, mild MR, RVSP 25 mmHg Abnormal ECG - RBBB, chronic History of bronchial asthma - managed by PCP Hyperlipidemia - being treated and being followed by Dr. Broderick. Glucose intolerance - being managed by Dr. Broderick Hypertension - not well controlled at the time of this admission Obesity - Elevated body mass index of approximately 44 Chronic diastolic CHF - clinically compensated Carotid dz - Minimal carotid arterial disease on carotid u/s of 03/09/17 H/o mild pulmonary hypertension - probable related to obesity-hypoventilation syndrome due to body habitus, improved since treatment of ADOLPH. Obstructive sleep apnea syndrome - treated with C-PAP therapy. History of overactive bladder and urinary incontinence - S/p botox injection in September 2017 and Mar 2019 by her urologist in [facility] in [place]. Orthopedic - Left knee and R hip replacement. Plan: * Dilt increased. BB added back to regimen * Hydralazine d/c'd to provide room on bp * Oral anticoag for stroke prophylaxis * Ok to d/c from cardiac standpoint * Has outpt f/u apptt at our office on 05/02/21 QAMAR GONZALEZ MD FACP FAC CCDS May 01, 2021 15:17
--- NOTE | 2021-05-01 17:01 | Progress Note ---
PILLO MCQUEEN 05/01/21 1701: Progress Note 76 yo woman with hx of AFib w RVR, CAD, recent COPD exacerbation, ADOLPH, chronic RBBB, asthma, hyperlipidemia, glucose intolerance, HTN, obesity, diastolic HF, and overactive bladder presented to IM clinic after 2 days of SOB and palpitations. Clinic exam revealed AFib w RVR; pt was admitted to the ICU on 04/29. Cardiology consult restarted the pt on metoprolol, increased her diltiazem, and discontinued hydralazine. Pt continued her regular medication regimen and was on anticoag prophylaxis during the course of her stay. Pt improved rapidly and was monitored for two days before being discharged on 05/01. Pt has a f/u appt with Dr. Arvizu tomorrow (05/02), with Dr. Broderick next week, and for EPS in two weeks. Pt received flu shot during her stay. BREANNA BRODERICK DO 05/01/212110: Supervisory-Addendum Brief Verification & Attestation Participated in pt care: history, MDM, physical Personally performed: exam, history, MDM, supervision of care Care discussed with: Medical Student Procedures: n/a Results interpretation: Verified all documentation Verification and Attestation of Medical Student E/M Service A medical student performed and documented this service in my presence. I reviewed and verified all information documented by the medical student and made modifications to such information, when appropriate. I personally performed the physical exam and medical decision making. Breanna Broderick May 01, 2021,21:11 PILLO MCQUEEN May 01, 2021 17:01 BREANNA BRODERICK DO May 01, 2021 21:11
== END 2021-05-01 12:00 | disposition home or self-care (01) ==
LOC: ICU 16:07 → INTOOBSV 16:07 → ICU 16:08
PROVIDERS: ADMIT Internal Medicine; ATTEND Internal Medicine
DX: I48.0 Paroxysmal atrial fibrillation (principal); I25.10 Atherosclerotic heart disease of native coronary artery without angina pectoris; I27.20 Pulmonary hypertension, unspecified; I45.10 Unspecified right bundle-branch block; J43.9 Emphysema, unspecified; I10 Essential (primary) hypertension; I50.9 Heart failure, unspecified; E78.00 Pure hypercholesterolemia, unspecified; K21.9 Gastro-esophageal reflux disease without esophagitis; M19.90 Unspecified osteoarthritis, unspecified site; G89.29 Other chronic pain; M54.9 Dorsalgia, unspecified; E11.9 Type 2 diabetes mellitus without complications; F32.9 Major depressive disorder, single episode, unspecified; F41.9 Anxiety disorder, unspecified; Z79.891 Long term (current) use of opiate analgesic; Z79.899 Other long term (current) drug therapy; Z80.42 Family history of malignant neoplasm of prostate; Z80.8 Family history of malignant neoplasm of other organs or systems; Z80.0 Family history of malignant neoplasm of digestive organs
CPT/HCPCS: 36415; 71045; 80053; 83735; 83880; 84100; 85025; 85027; 87081; 94640

== ENCOUNTER 2021-05-03 10:03 | Emergency (ER) | payer MEDICARE ==
[~2021-05-03] VITALS: Ht 170 cm; Wt 129.0 kg
[~2021-05-03 10:03] MED LIST changes: +MTP25TSR PO
[2021-05-03] MEDS ORDERED: ACETAMINOPHEN 500 MG TAB (TYLENOL) PO ONE (10:45)
[2021-05-03] MEDS ORDERED: NS IV 500 ML 500 ML IV SCH (10:45)
--- NOTE | 2021-05-03 10:46 | ED General ---
General Chief Complaint: Fever-Adult/Adol Stated Complaint: FEVER/NAUSEA/WEAKNESS/NEG COVID TEST Nursing Triage Note: ARRIVED VIA FROM [facility]. [facility] SENT HER OUT HERE WITH A FEVER AND SOA. COVID NEG AT [facility]. PT WAS JUST DISCHARGED FROM THE HOSPITAL YESTERDAY. STATES HER CHILLING STARTED ON WED. History of Present Illness Date Seen by Provider: May 03, 2021 Time Seen by Provider: 10:30 Initial Comments Patient is a 76-year-old female who presents to the emergency department today with a chief complaint of fever, generalized malaise and weakness. Patient has had multiple visits in and out of the hospital over the course of the last 2 weeks including a couple of 3 to 4-day hospitalizations. She presented to [facility] clinic this morning and had a Covid test which was reported as negative. She is Covid vaccinated. Patient states she started having chills this past Wednesday and a gradual onset of symptoms. She has a history of having Botox injections to her bladder, has frequent urinary tract infections and still describes a little bit of urgency but denies dysuria (she would not manifest this with her Botox). Temp 103 at presentation. No productive cough no earache sore throat or runny nose. She uses oxygen at night with a history of COPD. She is slightly nauseated. No joint pain, rashes or swelling. No diarrhea. She did receive her flu shot Wednesday of last week. All other review of systems reviewed and negative except as stated. Timing/Duration: 2-3 Days Severity: Moderate Associated Systoms: Malaise, Nausea/Vomiting Allergies and Home Medications Allergies Coded Allergies: sulfamethoxazole (Verified Allergy, Intermediate, rash, SOB, 10/23/18) trimethoprim (Verified Allergy, Intermediate, rash, SOB, 10/23/18) cephalexin (Verified Allergy, Unknown, 10/02/18) Patient Home Medication List Home Medication List Reviewed: Yes ALPRAZolam (ALPRAZolam) 0.25 Mg Tablet, 0.25 MG PO Q8H PRN for ANXIETY, (Reported) Entered as Reported by: TOMI OCONNOR on 04/17/21 1700 Albuterol Sulfate (Proair Hfa) 1 Puff Puff, 2 PUFF IH Q4H PRN for SHORTNESS OF BREATH, (Reported) Entered as Reported by: EGDARDO RIVAS on 12/15/18 1531 Amlodipine Besylate (Norvasc) 10 Mg Tablet, 10 MG PO DAILY Prescribed by: RASHAUN HORN on 04/21/21 0920 Apixaban (Eliquis) 5 Mg Tablet, 5 MG PO BID, (Reported) Entered as Reported by: EDGARDO RIVAS on 10/03/18 1127 Atorvastatin Calcium (Atorvastatin Calcium) 20 Mg Tablet, 20 MG PO HS, (Repo rted) Entered as Reported by: EDGARDO RIVAS on 10/03/18 1127 Baclofen (Baclofen) 10 Mg Tablet, 10 MG PO BID PRN for MUSCLE SPASMS, (Reported) Entered as Reported by: TOMI OCONNOR on 04/17/21 1700 Cholecalciferol (Vitamin D3) (Vitamin D3) 125 Mcg/1 Ml Drops, 125 MCG PO DAILY, (Reported) Entered as Reported by: TOMI COONNOR on 06/17/20 1121 Diltiazem HCl (Diltiazem 24Hr ER) 240 Mg Cap.er.24h, 240 MG PO BID Prescribed by: RASHAUN HORN on 04/30/21 0943 Docusate Sodium (Docusate Sodium) 100 Mg Capsule, 100 MG PO TID PRN for CONSTIPATION-1ST LINE, (Reported) Entered as Reported by: TOMI OCONNOR on 04/17/21 1700 Estradiol (Estradiol Tablet) 0.5 Mg Tablet, 0.5 MG PO DAILY, (Reported) Entered as Reported by: VICTOR MANUEL DASILVA on 05/28/16 1331 Fluticasone Propionate (Fluticasone Propionate) 16 Gm [place].susp, 2 SPRAYS NS HS PRN for ALLERGIES, (Reported) Entered as Reported by: EDGARDO RIVAS on 10/03/18 1127 Fluticasone/Salmeterol (Advair 100-50 Diskus) 1 Each Blst.w.dev, 1 PUFF INH BID PRN for SHORTNESS OF BREATH, (Reported) Entered as Reported by: EDGARDO RIVAS on 12/29/16 0815 Furosemide (Furosemide) 40 Mg Tablet, 40 MG PO DAILY PRN for FLUID RETENTION, (Reported) Entered as Reported by: TOMI OCONNOR on 05/22/19 0744 Ipratropium/Albuterol Sulfate (Iprat-Albut 0.5-3(2.5) mg/3 ml) 3 Ml Ampul.neb, 3 ML INH RTBID Prescribed by: ANAY DARNELL on 04/21/21 09 Lisinopril (Lisinopril) 20 Mg Tablet, 40 MG PO DAILY Prescribed by: ANAY DARNELL on 04/21/21 0903 Loratadine (Loratadine) 10 Mg Tablet, 10 MG PO DAILY, (Reported) Entered as Reported by: TOMI OCONNOR on 05/22/19 0744 Metoprolol Succinate (Metoprolol Succinate) 25 Mg Tab.er.24h, 25 MG PO BID Prescribed by: RASHAUN HORN on 04/30/21 0943 Montelukast Sodium (Montelukast Sodium) 10 Mg Tablet, 10 MG PO HS, (Reported) Entered as Reported by: EDGARDO RIVAS on 10/03/18 112 Oxycodone HCl/Acetaminophen (Oxycodone-Acetaminophen 5-325) 1 Each Tablet, 1-2 EA PO Q6H PRN for PAIN-MODERATE (5-7), (Reported) Entered as Reported by: TOMI OCONNOR on 04/17/21 1700 Potassium Chloride (Potassium Chloride) 10 Meq Capsule.er, 20 MEQ PO DAILY PRN for WHEN TAKING FUROSEMIDE, (Reported) Entered as Reported by: TOMI OCONNOR on 06/17/20 112 Sertraline HCl (Sertraline HCl) 100 Mg Tablet, 150 MG PO DAILY, (Reported) Entered as Reported by: EDGARDO RIVAS on 10/03/18 112 Tizanidine HCl (Tizanidine HCl) 4 Mg Tablet, 4 MG PO TID PRN for MUSCLE SPASMS, (Reported) Entered as Reported by: TOMI OCONNOR on 04/17/21 1700 Trazodone HCl (Trazodone HCl) 50 Mg Tablet, 50 MG PO HS, (Reported) Entered as Reported by: EDGARDO RIVAS on 10/03/18 112 Discontinued Medications Diltiazem HCl (Diltiazem ER) 240 Mg Capsule.er, 240 MG PO DAILY, (Reported) Entered as Reported by: EDGARDO RIVAS on 12/15/18 1531 Hydralazine HCl (Hydralazine HCl) 25 Mg Tablet, 25 MG PO TID Prescribed by: ANAY DARNELL on 04/21/21902 Prednisone (Prednisone) 10 Mg Tab.ds.pk, 10 MG PO DAILY Prescribed by: ANAY DARNELL on 04/21/21902 Review of Systems Review of Systems Constitutional: see HPI, chills, fever EENTM: no symptoms reported Respiratory: no symptoms reported Cardiovascular: no symptoms reported Gastrointestinal: nausea Genitourinary: other (urgency) Musculoskeletal: no symptoms reported Skin: no symptoms reported Psychiatric/Neurological: No Symptoms Reported All Other Systems Reviewed Negative Unless Noted: Yes Past Egovlgr-Bkgjtn-Zzxure Hx Patient Social History Tobacco Use?: No Substance use?: No Alcohol Use?: No Immunizations Up To Date Tetanus Booster (TDap): Less than 5yrs First/Initial COVID19 Vaccinat: 09/23/20 Second COVID19 Vaccination Jamar: 10/13 COVID19 Vaccine 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 Sexually Transmitted Disease: No Genitourinary: Yes (BOTOX FOR URINARY INCONT Q 6 MONTHS) Bladder Infection Gastrointestinal: Yes Gastroesophageal Reflux Musculoskeletal: Yes Arthritis, Chronic Back Pain Endocrine: No Diabetes, Non-Insulin dep Cataract Loss of Vision: Bilateral Hearing Impairment: Denies Cancer: No Psychosocial: Yes Anxiety, Depression Integumentary: No Blood Disorders: No Adverse Reaction/Blood Tranf: No Family Medical History Arthritis 19 MOTHER Cataracts 19 FATHER 19 MOTHER Colon cancer 19 FATHER Deafness or hearing loss 19 FATHER Dementia 19 FATHER FH: macular degeneration 19 MOTHER FH: prostate cancer 19 FATHER FH: skin cancer 19 FATHER Gout 19 MOTHER Hypertension 19 FATHER 19 MOTHER Myocardial infarction 19 FATHER 19 MOTHER Physical Exam Vital Signs Vital Signs - First Documented 05/03/21 10:07 Temp 37.9 Pulse 90 Resp 16 B/P (MAP) 144/85 (104) Pulse Ox 92 O2 Delivery Nasal Cannula O2 Flow Rate 2.00 Capillary Refill : Less Than 3 Seconds Height, Weight, BMI Height: 5'7.00" Weight: 291lbs. 6.0oz. 132.398294pr; 44.00 BMI Method:Stated General Appearance: No Apparent Distress, WD/WN Eyes: Bilateral Eye Normal Inspection, Bilateral Eye PERRL, Bilateral Eye EOMI HEENT: PERRL/EOMI Neck: Normal Inspection Respiratory: Lungs Clear, Normal Breath Sounds, No Accessory Muscle Use, No Respiratory Distress Cardiovascular: Regular Rate, Rhythm Gastrointestinal: Normal Bowel Sounds, Non Tender, Soft Back: Normal Inspection Extremity: Normal Capillary Refill, Normal Inspection, Normal Range of Motion, Non Tender, No Calf Tenderness Neurologic/Psychiatric: Alert, Oriented x3, No Motor/Sensory Deficits, Normal Mood/Affect Skin: Normal Color, Warm/Dry, Other (appears flushed) Focused Exam Lactate Level 05/03/21 10:30: Lactic Acid Level 1.20 Lactic Acid Level Laboratory Tests Test 05/03/21 10:30 Lactic Acid Level 1.20 MMOL/L (0.50-2.00) Progress/Results/Core Measures Suspected Sepsis SIRS Temperature: Pulse: 90 Respiratory Rate: 16 Laboratory Tests 05/03/21 10:30: White Blood Count 16.1H Blood Pressure 144 /85 Mean: 104 05/03/21 10:30: Lactic Acid Level 1.20 Laboratory Tests 05/03/21 10:30: Creatinine 0.79, Platelet Count 212, Total Bilirubin 1.7H Results/Orders Lab Results Laboratory Tests Test 05/03/21 10:30 05/03/21 11:22 05/03/21 12:09 Range/Units White Blood Count 16.1 H 4.3-11.0 10^3/uL Red Blood Count 4.70 3.80-5.11 10^6/uL Hemoglobin 13.7 11.5-16.0 g/dL Hematocrit 42 35-52 % Mean Corpuscular Volume 89 80-99 fL Mean Corpuscular Hemoglobin 29 25-34 pg Mean Corpuscular Hemoglobin Concent 33 32-36 g/dL Red Cell Distribution Width 13.9 10.0-14.5 % Platelet Count 212 130-400 10^3/uL Mean Platelet Volume 10.0 9.0-12.2 fL Immature Granulocyte % (Auto) 1 % Neutrophils (%) (Auto) 88 H 42-75 % Lymphocytes (%) (Auto) 4 L 12-44 % Monocytes (%) (Auto) 7 0-12 % Eosinophils (%) (Auto) 0 0-10 % Basophils (%) (Auto) 0 0-10 % Neutrophils # (Auto) 14.1 H 1.8-7.8 10^3/uL Lymphocytes # (Auto) 0.7 L 1.0-4.0 10^3/uL Monocytes # (Auto) 1.0 0.0-1.0 10^3/uL Eosinophils # (Auto) 0.1 0.0-0.3 10^3/uL Basophils # (Auto) 0.0 0.0-0.1 10^3/uL Immature Granulocyte # (Auto) 0.2 H 0.0-0.1 10^3/uL Neutrophils % (Manual) 85 % Lymphocytes % (Manual) 5 % Monocytes % (Manual) 5 % Band Neutrophils 4 % Atypical Lymphocytes 1 % Anisocytosis SLIGHT Microcytosis MODERATE Sodium Level 138 135-145 MMOL/L Potassium Level 4.5 3.6-5.0 MMOL/L Chloride Level 103 98-107 MMOL/L Carbon Dioxide Level 22 21-32 MMOL/L Anion Gap 13 5-14 MMOL/L Blood Urea Nitrogen 14 7-18 MG/DL Creatinine 0.79 0.60-1.30 MG/DL Estimat Glomerular Filtration Rate 71 BUN/Creatinine Ratio 18 Glucose Level 131 H 70-105 MG/DL Lactic Acid Level 1.20 0.50-2.00 MMOL/L Calcium Level 9.5 8.5-10.1 MG/DL Corrected Calcium 9.7 8.5-10.1 MG/DL Total Bilirubin 1.7 H 0.1-1.0 MG/DL Aspartate Amino Transf (AST/SGOT) 41 H 5-34 U/L Alanine Aminotransferase (ALT/SGPT) 48 0-55 U/L Alkaline Phosphatase 119 40-136 U/L Total Protein 6.7 6.4-8.2 GM/DL Albumin 3.7 3.2-4.5 GM/DL Urine Color YELLOW Urine Clarity CLEAR Urine pH 6.5 5-9 Urine Specific [place] 1.015 L 1.016-1.022 Urine Protein NEGATIVE NEGATIVE Urine Glucose (UA) NEGATIVE NEGATIVE Urine Ketones NEGATIVE NEGATIVE Urine Nitrite NEGATIVE NEGATIVE Urine Bilirubin NEGATIVE NEGATIVE Urine Urobilinogen 1.0 < = 1.0 MG/DL Urine Leukocyte Esterase NEGATIVE NEGATIVE Urine RBC (Auto) TRACE-I H NEGATIVE Urine RBC 0-2 /HPF Urine WBC NONE /HPF Urine Squamous Epithelial Cells 2-5 /HPF Urine Crystals NONE /LPF Urine Bacteria NEGATIVE /HPF Urine Casts NONE /LPF Urine Mucus NEGATIVE /LPF Urine Culture Indicated CULTURE PENDING Influenza Type A Antigen NEGATIVE NEGATIVE Influenza Type B Antigen NEGATIVE NEGATIVE My Orders Orders - ISRAEL BELL MD Cbc With Automated Diff (05/03/21 10:45) Comprehensive Metabolic Panel (05/03/21 10:45) Blood Culture (05/03/21 10:45) Urinalysis (05/03/21 10:45) Urine Culture (05/03/21 10:45) Chest 1 View, Ap/Pa Only (05/03/21 10:45) Ed Iv/Invasive Line Start (05/03/21 10:45) Ed Iv/Invasive Line Start (05/03/21 10:45) Vital Signs Adult Sepsis Patie Q15M (05/03/21 10:45) O2 (05/03/21 10:45) Remove Rings In Anticipation O (05/03/21 10:45) Lactic Acid Analyzer (05/03/21 10:45) Acetaminophen Tablet (Tylenol Tablet) (05/03/21 10:45) Ns Iv 500 Ml (Sodium Chloride 0.9%) (05/03/21 10:45) Manual Differential (05/03/21 10:30) Influenza A & B Antigens (05/03/21 11:07) Medications Given in ED Vital Signs/I&O 05/03/21 05/03/21 05/03/21 05/03/21 10:07 10:07 12:10 13:23 Temp 37.9 37.8 36.9 Pulse 90 79 Resp 16 92 B/P (MAP) 144/85 (104) 137/84 Pulse Ox 92 O2 Delivery Nasal Cannula Nasal Cannula Room Air O2 Flow Rate 2.00 Capillary Refill : Less Than 3 Seconds Blood Pressure Mean: 104 Progress Note : Time: 13:10 Progress Note Influenza negative, chest x-ray clear of infiltrate, labs basically unremarkable except for a mildly elevated white blood cell count at 16,000. Patient's temperature has come down with Tylenol. She looks clinically so much better after her fever is resolved. No concerns for sepsis, pneumonia, urinary tract infection. I talked to her about pending blood culture, urine culture. She is already had a negative Covid test today. We will send her home with close follow-up with Dr. Darnell on Wednesday. Return precautions given. She is comfortable with this plan of care. No clinical or objective findings to warrant further studies from the emergency department at this time. All questions are sought and answered. Patient is stable for discharge. Departure Impression Primary Impression: Febrile illness Disposition: HOME, SELF-CARE Condition: Stable Departure-Patient Inst. Decision time for Depature: 13:11 Referrals: ANAY DARNELL DO (PCP/Family) Primary Care Physician Patient Instructions: Fever of Unknown Origin (DC) Add. Discharge Instructions: Continue to take Tylenol, extra strength, 2 tablets every 6 hours as needed for any temperature over 100.4. Drink lots of fluids to stay well-hydrated. Please call and follow-up with Dr. Darnell first thing Wednesday morning Return to the emergency room if you have any elevated fevers especially with new symptoms such as increasing shortness of breath, productive cough, rashes or any other emergent concerning symptoms. Copy Copies To 1: ANAY DARNELL KATHRYN M MD May 03, 2021 10:46
[2021-05-03 10:53] LABS: BASOPHILS % (AUTO) 0 % (0-10); EOSINOPHILS # (AUTO) 0.1 10^3/uL (0.0-0.3); EOSINOPHILS % (AUTO) 0 % (0-10); HEMATOCRIT 42 % (35-52); HEMOGLOBIN 13.7 g/dL (11.5-16.0); LYMPHOCYTES # (AUTO) 0.7 10^3/uL (1.0-4.0); LYMPHOCYTES % (AUTO) 4 % (12-44); MEAN CORPUSCULAR HEMOGLOBIN 29 pg (25-34); MEAN CORPUSCULAR HGB CONC 33 g/dL (32-36); MEAN CORPUSCULAR VOLUME 89 fL (80-99); MONOCYTES % (AUTO) 7 % (0-12); NEUTROPHILS # (AUTO) 14.1 10^3/uL (1.8-7.8); NEUTROPHILS % (AUTO) 88 % (42-75); PLATELET COUNT 212 10^3/uL (130-400); WHITE BLOOD COUNT 16.1 10^3/uL (4.3-11.0)
[2021-05-03 10:55] LABS: ALBUMIN 3.7 GM/DL (3.2-4.5); POTASSIUM 4.5 MMOL/L (3.6-5.0)
[2021-05-03 10:56] LABS: CALCIUM 9.5 MG/DL (8.5-10.1)
[2021-05-03 10:57] LABS: TOTAL PROTEIN 6.7 GM/DL (6.4-8.2)
[2021-05-03 10:59] LABS: BILIRUBIN,TOTAL 1.7 MG/DL (0.1-1.0)
[2021-05-03 11:01] LABS: CREATININE SERUM 0.79 MG/DL (0.60-1.30)
[2021-05-03 11:23] LABS: ANISOCYTOSIS SLIGHT; ATYPICAL LYMPHOCYTES 1 %; BAND NEUTROPHILS 4 %; LYMPHOCYTES % (MANUAL) 5 %; MICROCYTOSIS MODERATE; MONOCYTES % (MANUAL) 5 %; NEUTROPHILS % (MANUAL) 85 %
[2021-05-03 11:29] LABS: BILIRUBIN,URINE NEGATIVE (NEGATIVE); CLARITY,URINE CLEAR; COLOR,URINE YELLOW; GLUCOSE, URINE (UA) NEGATIVE (NEGATIVE); KETONES,URINE NEGATIVE (NEGATIVE); LEUKOCYTE ESTERASE ,URINE NEGATIVE (NEGATIVE); NITRITE,URINE NEGATIVE (NEGATIVE); PH,URINE 6.5 (5-9); PROTEIN,URINE NEGATIVE (NEGATIVE)
--- NOTE | 2021-05-03 11:30 | Diagnostic Imaging Report ---
EXAMINATION: Chest 1 view HISTORY: Sepsis. Elevated WBC. COMPARISON: 04/29/2021. FINDINGS: Interval increase in interstitial markings in the perihilar regions bilaterally. No focal consolidation. No large pleural effusion or pneumothorax. Stable cardiac silhouette with a loop recorder overlying the cardiac silhouette. IMPRESSION: 1. Increasing perihilar interstitial markings, suggestive of central pulmonary vascular congestion. Dictated by: Dictated on workstation # [id number]
[2021-05-03 11:37] LABS: BACTERIA,URINE NEGATIVE /HPF; RBC,URINE 0-2 /HPF
[2021-05-03 13:23] VITALS: BP 137/84
== END 2021-05-03 13:23 | disposition home or self-care (01) ==
LOC: EDUNIT# 10:03 → ER 10:05
DX: R50.9 Fever, unspecified (principal); J45.909 Unspecified asthma, uncomplicated; G47.30 Sleep apnea, unspecified; I10 Essential (primary) hypertension; I48.91 Unspecified atrial fibrillation; E78.00 Pure hypercholesterolemia, unspecified; E11.9 Type 2 diabetes mellitus without complications; F41.9 Anxiety disorder, unspecified; F32.9 Major depressive disorder, single episode, unspecified; Z20.822 Contact with and (suspected) exposure to COVID-19; Z79.01 Long term (current) use of anticoagulants; Z79.899 Other long term (current) drug therapy
CPT/HCPCS: 36415; 71045; 80053; 81000; 83605; 85007; 85027; 87040; 87088; 87804

== ENCOUNTER 2021-05-05 16:35 | Observation (INO) | payer MEDICARE ==
[~2021-05-05] VITALS: Ht 170.2 cm; Wt 126.0 kg
[2021-05-05] MEDS ORDERED: PHARMACY TO DOSE IV ONE (16:45)
[2021-05-05] MEDS ORDERED: VANCOMYCIN INJECTION 1,000 MG in NS (IVPB) 250 ML IV ONE (16:45)
[2021-05-05] MEDS ORDERED: CATHETER FLUSH 10 ML SYR IV PRN (17:45)
[2021-05-05] MEDS ORDERED: CEFEPIME INJECTION 1,000 MG in WATER (STERILE) FOR INJECTION 10 ML IV NR (17:45)
[2021-05-05 17:56] VITALS: BP 128/70
--- NOTE | 2021-05-05 17:58 | Diagnostic Imaging Report ---
INDICATION: Fever. Portable chest 5:56 PM FINDINGS: There is a 4 cm round infiltrate in the left midlung at the level of the hilum. There are no effusions or pneumothoraces. IMPRESSION: Left perihilar infiltrate new since 05/03/2021 suspicious for pneumonia. Dictated by: Dictated on workstation # [id number]
[2021-05-05] MEDS ORDERED: VANCOMYCIN 2000 MG/NS 500 ML IVPB IV NR ×2 (18:00)
[2021-05-05 18:05] LABS: BASOPHILS % (AUTO) 0 % (0-10); EOSINOPHILS # (AUTO) 0.1 10^3/uL (0.0-0.3); EOSINOPHILS % (AUTO) 1 % (0-10); HEMATOCRIT 40 % (35-52); HEMOGLOBIN 13.1 g/dL (11.5-16.0); LYMPHOCYTES # (AUTO) 1.2 10^3/uL (1.0-4.0); LYMPHOCYTES % (AUTO) 11 % (12-44); MEAN CORPUSCULAR HEMOGLOBIN 29 pg (25-34); MEAN CORPUSCULAR HGB CONC 33 g/dL (32-36); MEAN CORPUSCULAR VOLUME 89 fL (80-99); MEAN PLATELET VOLUME 9.6 fL (9.0-12.2); MONOCYTES # (AUTO) 0.7 10^3/uL (0.0-1.0); MONOCYTES % (AUTO) 6 % (0-12); NEUTROPHILS # (AUTO) 8.6 10^3/uL (1.8-7.8); NEUTROPHILS % (AUTO) 81 % (42-75); PLATELET COUNT 194 10^3/uL (130-400); WHITE BLOOD COUNT 10.6 10^3/uL (4.3-11.0)
[2021-05-05 18:14] LABS: ALBUMIN 3.5 GM/DL (3.2-4.5)
[2021-05-05 18:16] LABS: CALCIUM 9.8 MG/DL (8.5-10.1)
[2021-05-05 18:17] LABS: TOTAL PROTEIN 6.7 GM/DL (6.4-8.2)
[2021-05-05 18:19] LABS: BILIRUBIN,TOTAL 0.9 MG/DL (0.1-1.0)
[2021-05-05 18:21] LABS: CREATININE SERUM 0.79 MG/DL (0.60-1.30)
[2021-05-05 18:43] LABS: CLARITY,URINE CLEAR; COLOR,URINE YELLOW; GLUCOSE, URINE (UA) NEGATIVE (NEGATIVE); KETONES,URINE NEGATIVE (NEGATIVE); LEUKOCYTE ESTERASE ,URINE TRACE (NEGATIVE); NITRITE,URINE NEGATIVE (NEGATIVE); PROTEIN,URINE 1+ (NEGATIVE)
[2021-05-05 18:57] LABS: BACTERIA,URINE NEGATIVE /HPF; BILIRUBIN,URINE 1+ (NEGATIVE); RBC,URINE 0-2 /HPF; WBC,URINE 0-2 /HPF
[2021-05-05 19:46] VITALS: BP 185/79
[2021-05-05] MEDS: methylPREDNISolone 40 MG/ML (Solu-MEDROL) VIAL IV SCH ×2 (19:49→23:02)
[2021-05-05 20:45] VITALS: BP 128/70
[2021-05-05] MEDS ORDERED: RT-ALBUTEROL/IPRATROPIUM 3 ML (DUONEB) VIAL INH ONE (21:00)
[2021-05-05] MEDS ORDERED: RT-ALBUTEROL/IPRATROPIUM 3 ML (DUONEB) VIAL INH PRN (21:00)
[2021-05-05] MEDS ORDERED: RT-ALBUTEROL/IPRATROPIUM 3 ML (DUONEB) VIAL ONE (21:08)
[2021-05-05] MEDS: CATHETER FLUSH 10 ML SYR IV SCH (23:01)
[2021-05-05] MEDS: APIXABAN 5 MG (ELIQUIS) TABLET PO SCH (23:01)
[2021-05-05] MEDS: CEFEPIME 1,000 MG/SWFI 10 ML IV PUSH IV SCH ×2 (23:02)
[2021-05-05 23:35] VITALS: BP 125/64
[2021-05-06 04:03] VITALS: BP 126/67
[2021-05-06] MEDS ORDERED: RT-ALBUTEROL SULF 2.5 MG/3 ML PRE-MIX VIAL IH PRN (05:15)
[2021-05-06] MEDS ORDERED: FLUTICASONE NASAL SPRAY (FLONASE) 16 GM BTL NS PRN (05:15)
[2021-05-06] MEDS ORDERED: FUROSEMIDE 40 MG (LASIX) TAB PO PRN (05:15)
[2021-05-06] MEDS ORDERED: DOCUSATE SODIUM 100 MG (COLACE) CAP PO PRN (05:15)
[2021-05-06 05:45] LABS: BASOPHILS % (AUTO) 0 % (0-10); EOSINOPHILS % (AUTO) 0 % (0-10); HEMATOCRIT 37 % (35-52); LYMPHOCYTES # (AUTO) 0.6 10^3/uL (1.0-4.0); LYMPHOCYTES % (AUTO) 7 % (12-44); MEAN CORPUSCULAR HEMOGLOBIN 29 pg (25-34); MEAN CORPUSCULAR HGB CONC 33 g/dL (32-36); MEAN CORPUSCULAR VOLUME 89 fL (80-99); MEAN PLATELET VOLUME 9.6 fL (9.0-12.2); MONOCYTES # (AUTO) 0.1 10^3/uL (0.0-1.0); MONOCYTES % (AUTO) 1 % (0-12); NEUTROPHILS # (AUTO) 6.8 10^3/uL (1.8-7.8); NEUTROPHILS % (AUTO) 91 % (42-75); PLATELET COUNT 161 10^3/uL (130-400); WHITE BLOOD COUNT 7.6 10^3/uL (4.3-11.0)
[2021-05-06] MEDS ORDERED: KCL 20 MEQ TAB (K-DUR) PO PRN (05:45)
[2021-05-06 05:57] LABS: ALBUMIN 3.1 GM/DL (3.2-4.5)
[2021-05-06 05:58] LABS: POTASSIUM 3.9 MMOL/L (3.6-5.0)
[2021-05-06 05:59] LABS: CALCIUM 9.1 MG/DL (8.5-10.1)
[2021-05-06] MEDS: CATHETER FLUSH 10 ML SYR IV SCH ×3 (05:59→20:19)
[2021-05-06] MEDS: CEFEPIME 1,000 MG/SWFI 10 ML IV PUSH IV SCH ×8 (05:59→23:10)
[2021-05-06 06:00] LABS: TOTAL PROTEIN 6.1 GM/DL (6.4-8.2)
[2021-05-06] MEDS: VANCOMYCIN 1250 MG/NS 250 ML IVPB IV SCH ×4 (06:00→19:05)
[2021-05-06 06:02] LABS: BILIRUBIN,TOTAL 0.6 MG/DL (0.1-1.0)
[2021-05-06 06:04] LABS: CREATININE SERUM 0.68 MG/DL (0.60-1.30)
[2021-05-06] MEDS: RT-ALBUTEROL/IPRATROPIUM 3 ML (DUONEB) VIAL INH SCH ×2 (07:25→21:20)
[2021-05-06 07:29] VITALS: BP 164/78
--- NOTE | 2021-05-06 07:32 | Diagnostic Imaging Report ---
EXAMINATION: Chest radiograph, portable AP view. DATE: 05/06/2021 6:57 AM INDICATION: 76-year-old female, shortness of breath. Followup pneumonia. COMPARISON: May 05, 2021. FINDINGS: There is redemonstrated somewhat nodular consolidation in the left midlung which is essentially unchanged. Heart size and mediastinal contours are unchanged. There is no identified pneumothorax. There is no large pleural effusion. IMPRESSION: 1. Redemonstrated nodular masslike consolidation in the left midlung which is unchanged. Dictated by: Dictated on workstation # [id number]
[2021-05-06] MEDS: ESTRADIOL 1 MG TAB (ESTRACE) PO SCH (08:41)
[2021-05-06] MEDS: SERTRALINE 100 MG (ZOLOFT) TAB PO SCH (08:41)
[2021-05-06] MEDS: lisINopril 20 MG (PRINIVIL) TABLET PO SCH (08:41)
[2021-05-06] MEDS: APIXABAN 5 MG (ELIQUIS) TABLET PO SCH ×2 (08:42→20:18)
[2021-05-06] MEDS: LORATADINE (CLARITIN) 10 MG TAB PO SCH (08:42)
[2021-05-06] MEDS: VITAMIN D3 125 MCG (5,000 UNITS) CAPSULE PO SCH (08:42)
[2021-05-06] MEDS: methylPREDNISolone 40 MG/ML (Solu-MEDROL) VIAL IV SCH ×2 (08:42→20:19)
[2021-05-06] MEDS: amLODIPine 10 MG (NORVASC) TAB PO SCH (08:42)
--- NOTE | 2021-05-06 08:52 | Consultation-Cardiology ---
HPI-Cardiology Cardiology Consultation: Date of Consultation 05/06/21 Time Seen by a Provider: 08:45 Date of Admission 05-05-21 Attending Physician Breanna Darnell DO Admitting Physician Breanna Darnell DO Consulting Physician Елена Ang MD HPI: Chief Complaint: SOB Ms. Estevez is a 76 yr old female admitted to [address] Darnell's office. She reports she went home last week from the hospital and by the weekend she developed fever, chills and increasing SOB along with frequent cough. She reports she went to the ED to be evaluated and was told she had an infection and to f/u with her PCP. She went to see Dr. Darnell yesterday at her office d/t continuing to feel increasingly unwell. She denies any c/o CP, syncope, near syncope or LE swelling. She reports an occ feeling of rapid heartbeat which only lasts for a few minutes and have been infrequent. She reports her BP has been elevated at home. Review of Systems-Cardiology Review of Systems Constitutional: chills, fever, malaise Eyes: vision change Ears/Nose/Throat: No recent hearing loss Respiratory: As described under HPI Cardiovascular: As described under HPI Gastrointestinal: No constipation; diarrhea Musculoskeletal: no symptoms reported Skin: No rash on exposed areas, No ulcerations on exposed areas Psychiatric/Neurological: anxiety; No seizure, No focal weakness, No syncope KWG-Tzldmz-Pghmic Hx Patient Social History Smoking Status: Never a Smoker 2nd Hand Smoke Exposure: No Have you traveled recently?: No Alcohol Use?: No Pt feels they are or have been: No Immunizations Up To Date Tetanus Booster (TDap): Less than 5yrs Date of Pneumonia Vaccine: Apr 04, 2020 Date of Influenza Vaccine: Apr 30, 2021 Past Medical History PMH As described under Assessment. Family Medical History Family Medical History: She reports her mother and father both had CAD and HTN. Family History: Arthritis 19 MOTHER Cataracts 19 FATHER 19 MOTHER Colon cancer 19 FATHER Deafness or hearing loss 19 FATHER Dementia 19 FATHER FH: macular degeneration 19 MOTHER FH: prostate cancer 19 FATHER FH: skin cancer 19 FATHER Gout 19 MOTHER Hypertension 19 FATHER 19 MOTHER Myocardial infarction 19 FATHER 19 MOTHER Allergies and Home Medications Allergies Coded Allergies: sulfamethoxazole (Verified Allergy, Intermediate, rash, SOB, 10/23/18) trimethoprim (Verified Allergy, Intermediate, rash, SOB, 10/23/18) cephalexin (Verified Allergy, Unknown, 10/02/18) Patient Home Medication List Home Medication List Reviewed: Yes ALPRAZolam (ALPRAZolam) 0.25 Mg Tablet, 0.25 MG PO Q8H PRN for ANXIETY, (Reported) Entered as Reported by: TOMI OCONNOR on 04/17/21 1700 Last Action: Held Albuterol Sulfate (Proair Hfa) 1 Puff Puff, 2 PUFF IH Q4H PRN for SHORTNESS OF BREATH, (Reported) Entered as Reported by: EDGARDO RIVAS on 12/15/18 1531 Last Action: Continued Amlodipine Besylate (Norvasc) 10 Mg Tablet, 10 MG PO DAILY Prescribed by: RASHAUN HORN on 04/21/21 0920 Last Action: Continued Apixaban (Eliquis) 5 Mg Tablet, 5 MG PO BID, (Reported) Entered as Reported by: EDGARDO RIVAS on 10/03/18 112 Last Action: Continued Atorvastatin Calcium (Atorvastatin Calcium) 20 Mg Tablet, 20 MG PO HS, (Reported) Entered as Reported by: EDGARDO RIVAS on 10/03/18 112 Last Action: Continued Cholecalciferol (Vitamin D3) (Vitamin D3) 125 Mcg/1 Ml Drops, 125 MCG PO DAILY, (Reported) Entered as Reported by: TOMI OCONNOR on 06/17/20 112 Last Action: Converted Diltiazem HCl (Diltiazem 24Hr ER) 240 Mg Cap.er.24h, 240 MG PO BID Prescribed by: RASHAUN HORN on 04/30/21 0943 Last Action: Continued Docusate Sodium (Docusate Sodium) 100 Mg Capsule, 100 MG PO TID PRN for CONSTIPATION-1ST LINE, (Reported) Entered as Reported by: TOMI OCONNOR on 04/17/21 170 Last Action: Continued Estradiol (Estradiol Tablet) 0.5 Mg Tablet, 0.5 MG PO DAILY, (Reported) Entered as Reported by: VICTOR MANUEL DASILVA on 05/28/16 1331 Last Action: Converted Fluticasone Propionate (Fluticasone Propionate) 16 Gm [place].susp, 2 SPRAYS NS HS PRN for ALLERGIES, (Reported) Entered as Reported by: EDGARDO RIVAS on 10/03/18 112 Last Action: Continued Furosemide (Furosemide) 40 Mg Tablet, 40 MG PO DAILY PRN for FLUID RETENTION, (Reported) Entered as Reported by: TOMI OCONNOR on 05/22/19743 Last Action: Continued Ipratropium/Albuterol Sulfate (Iprat-Albut 0.5-3(2.5) mg/3 ml) 3 Ml Ampul.neb, 3 ML INH RTBID Prescribed by: BREANNA DARNELL on 04/21/21 09 Last Action: Continued Lisinopril (Lisinopril) 20 Mg Tablet, 40 MG PO DAILY Prescribed by: BREANNA DARNELL on 04/21/21 09 Last Action: Continued Loratadine (Loratadine) 10 Mg Tablet, 10 MG PO DAILY, (Reported) Entered as Reported by: TOMI OCONNOR on 05/22/19743 Last Action: Continued Metoprolol Succinate (Metoprolol Succinate) 25 Mg Tab.er.24h, 25 MG PO BID Prescribed by: RASHAUN HORN on 04/30/21 0943 Last Action: Continued Montelukast Sodium (Montelukast Sodium) 10 Mg Tablet, 10 MG PO HS, (Reported) Entered as Reported by: EDGARDO RIVAS on 10/03/181126 Last Action: Continued Potassium Chloride (Potassium Chloride) 10 Meq Capsule.er, 20 MEQ PO DAILY PRN for WHEN TAKING FUROSEMIDE, (Reported) Entered as Reported by: TOMI OCONNOR on 06/17/20 112 Last Action: Converted Sertraline HCl (Sertraline HCl) 100 Mg Tablet, 150 MG PO DAILY, (Reported) Entered as Reported by: EDGARDO RIVAS on 10/03/181126 Last Action: Continued Trazodone HCl (Trazodone HCl) 50 Mg Tablet, 50 MG PO HS, (Reported) Entered as Reported by: EDGARDO RIVAS on 10/03/181126 Last Action: Continued Discontinued Medications Baclofen (Baclofen) 10 Mg Tablet, 10 MG PO BID PRN for MUSCLE SPASMS, (Reported) Discontinued Reason: No Longer Taking Entered as Reported by: TOMI OCONNOR on 04/17/21 1700 Last Action: Discontinued Diltiazem HCl (Diltiazem ER) 240 Mg Capsule.er, 240 MG PO DAILY, (Reported) Entered as Reported by: EDGARDO RIVAS on 12/15/18 1531 Fluticasone/Salmeterol (Advair 100-50 Diskus) 1 Each Blst.w.dev, 1 PUFF INH BID PRN for SHORTNESS OF BREATH, (Reported) Discontinued Reason: No Longer Taking Entered as Reported by: EDGARDO RIVAS on 12/29/16 0815 Last Action: Discontinued Hydralazine HCl (Hydralazine HCl) 25 Mg Tablet, 25 MG PO TID Prescribed by: BREANNA DARNELL on 04/21/21 0903 Oxycodone HCl/Acetaminophen (Oxycodone-Acetaminophen 5-325) 1 Each Tablet, 1-2 EA PO Q6H PRN for PAIN-MODERATE (5-7), (Reported) Discontinued Reason: No Longer Taking Entered as Reported by: TOMI OCONNOR on 04/17/211699 Last Action: Discontinued Prednisone (Prednisone) 10 Mg Tab.ds.pk, 10 MG PO DAILY Prescribed by: BREANNA DARNELL on 04/21/21902 Tizanidine HCl (Tizanidine HCl) 4 Mg Tablet, 4 MG PO TID PRN for MUSCLE SPASMS, (Reported) Discontinued Reason: No Longer Taking Entered as Reported by: TOMI OCONNOR on 04/17/211699 Last Action: Discontinued Physical Exam-Cardiology Physical Exam Vital Signs/I&O 05/06/21 05/06/21 05/07/21 05/07/21 21:20 23:30 01:05 04:00 Temp 36.4 36.0 Pulse 50 58 65 Resp 18 20 B/P (MAP) 131/63 (85) 135/59 (84) Pulse Ox 96 94 93 O2 Delivery Nasal Cannula NIV CPAP NIV CPAP O2 Flow Rate 2.00 05/07/21 05/07/21 05/07/21 07:00 07:21 08:00 Temp 36.7 Pulse 54 63 Resp 20 B/P (MAP) 156/74 (101) Pulse Ox 93 93 O2 Delivery Nasal Cannula NIV CPAP O2 Flow Rate 2.00 05/07/21 00:00 Intake Total 1425 ml Output Total 700 ml Balance 725 ml Capillary Refill : Constitutional: AAO x 3, well-developed, well-nourished HEENT: PERRL, hearing is well preserved, oral hygience is good Neck: carotid bruit, carotid pulses are 2 + bilaterally Respiratory: accessory muscle use, respiratory distress, chest expansion is symmetric, chest is bilaterally symmetric, other (diminshed breath sounds) Cardiovascular: regular rate-rhythm, JVD, S1 and S2 Gastrointestinal: No tender; soft, round, audible bowel sounds Extremities: no lower extremity edema bilateral Neurologic/Psychiatric: grossly intact (moves all extremities) Skin: No rash on exposed areas, No ulcerations on exposed areas Data Review Labs Laboratory Tests 05/07/21 05:23: White Blood Count 10.0, Red Blood Count 4.01, Hemoglobin 11.7, Hematocrit 35, Mean Corpuscular Volume 88, Mean Corpuscular Hemoglobin 29, Mean Corpuscular Hemoglobin Concent 33, Red Cell Distribution Width 13.1, Platelet Count 183, Mean Platelet Volume 9.6, Immature Granulocyte % (Auto) 1, Neutrophils (%) (Auto) 90H, Lymphocytes (%) (Auto) 7L, Monocytes (%) (Auto) 2, Eosinophils (%) (Auto) 0, Basophils (%) (Auto) 0, Neutrophils # (Auto) 8.9H, Lymphocytes # (Auto) 0.7L, Monocytes # (Auto) 0.2, Eosinophils # (Auto) 0.0, Basophils # (Auto) 0.0, Immature Granulocyte # (Auto) 0.1, Sodium Level 138, Potassium Level 4.2, Chloride Level 107, Carbon Dioxide Level 20L, Anion Gap 11, Blood Urea Nitrogen 19H, Creatinine 0.74, Estimat Glomerular Filtration Rate 77, BUN/Creatinine Ratio 26, Glucose Level 224H, Calcium Level 9.0, Corrected Calcium 9.8, Total Bilirubin 0.4, Aspartate Amino Transf (AST/SGOT) 20, Alanine Aminotransferase (ALT/SGPT) 56H, Alkaline Phosphatase 140H, Total Protein 5.7L, Albumin 3.0L, Vancomycin Level Trough 13.8 Microbiology 05/05/21 MRSA Screen - Final, Complete MRSA not isolated 05/05/21 Urine Culture - Preliminary, Resulted Culture In Progress 05/05/21 Blood Culture - Preliminary, Resulted No growth Radiology [facility], [place] NAME: TUSHAR ESTEVEZ [facility] REC#: [id number] PT STATUS: ADM Katherine : 1945 PHYSICIAN: BREANNA DARNELL DO ADMIT DATE: 05/05/21 Signed Date of Exam:05/06/21 CHEST 1 VIEW, AP/PA ONLY EXAMINATION: Chest radiograph, portable AP view. DATE: 05/06/2021 6:57 AM INDICATION: 76-year-old female, shortness of breath. Followup pneumonia. COMPARISON: May 05, 2021. FINDINGS: There is redemonstrated somewhat nodular consolidation in the left midlung which is essentially unchanged. Heart size and mediastinal contours are unchanged. There is no identified pneumothorax. There is no large pleural effusion. IMPRESSION: 1. Redemonstrated nodular masslike consolidation in the left midlung which is unchanged. Dictated by: Dictated on workstation # [id number] Dict: 05/06/21717 Trans: 05/06/21801 CVB [id number] Interpreted by: MARVA CULVER MD Electronically signed by: MARVA CULVER MD 05/06/21801 A/P-Cardiology Assessment/Admission Diagnosis Progressive dyspnea - Redemonstrated nodular masslike consolidation in the left midlung which is unchanged per CXR of 05-06-21 - management per medical services Paroxysmal A fib and typical A flutter - first documented on 09-30-18 at [facility]). Placed on flecainide at [facility] on 09/30/18 - has had typical atrial flutter ablation by Dr Thompson on 01/30/19 - has had ILR placement by Dr Thompson n 04/06/19 - Post a-fib ablation on 05-22-2019 by . Now off flecainide - ILR interrogation of Feb 2021 showed episodes of a-fib with RVR in January - awaiting apptt at [facility] for recurrent a fib at [facility] (Dr Thompson) - OAC with Eliquis CAD - Minor coronary artery disease per cardiac catheterization of July 2006. - MPI of 01/17/15 did not show ischemia or infarction, and LVEF was 54% - Echo 12/16/18 showed LVEF 60-65%, mild MR, RVSP 25 mmHg Abnormal ECG - RBBB, chronic History of bronchial asthma - managed by PCP Hyperlipidemia - being treated and being followed by Dr. Darnell. Glucose intolerance - being managed by Dr. Darnell Hypertension - fairly well controlled Obesity - Elevated body mass index of approximately 44 Chronic diastolic CHF - clinically compensated Carotid dz - Minimal carotid arterial disease on carotid u/s of 03/09/17 H/o mild pulmonary hypertension - probable related to obesity-hypoventilation syndrome due to body habitus, im proved since treatment of ADOLPH. Obstructive sleep apnea syndrome - treated with C-PAP therapy. History of overactive bladder and urinary incontinence - S/p botox injection in September 2017 and Mar 2019 by her urologist in [facility] in [place]. Orthopedic - Left knee and R hip replacement. Discussion and Recomendations Pneumonia - masslike consolidation seen on CXR of 05-05 and 05-06-21 - management per medical services PAF - currently in SR with controlled rate - continue home medications including OAC for stroke prophylaxis Continue home cardiac medications Monitor on tele Adjust anti-hypertensive regimen as indicated Monitor lab closely Further recs will be based on her hospital course We would like to thank medical services for this consult RASHAUN HORN May 06, 2021 08:52
[2021-05-06] MEDS ORDERED: APIXABAN 5 MG (ELIQUIS) TABLET PO SCH (09:00)
[2021-05-06 11:25] VITALS: BP 150/76
--- NOTE | 2021-05-06 12:42 | History & Physical ---
LAWRENCERozDAYA WESTON 05/06/21 1241: History of Present Illness History of Present Illness Reason for visit/HPI CC: Pneumonia, new-onset fever subsequent to recent hospitalization HPI: Mame Estevez is a 76 yo female, with a history of CAD, CHF, pulm HTN, glucose intolerance, ADOLPH, chronic RBBB and COPD w recent exacerbation, and A-fib w/ RVR, who presents for evaluation and management of new-onset febrile illness. Following recent discharge from the hospital, Mame reports that she developed fever, chills, increasing SOB, and frequent cough. This prompted a visit to the ED; she was informed that she had an infection and was counseled to f/u with her PCP (Dr. Darnell). Mame went to see Dr. Darnell yesterday (05/05/21) at her office d/t continuing malaise and fever, which she was previously managing with tylenol QID; upon assessment, Dr. Darnell decided to admit Mame to med/surg (room 411) for work-up and assessment. On CXR (05/05/21) there was L ollie-hilar infiltrate, suspicious for lobar pneumonia. IV cefepime and vancomycin were initiated. Today, Mame is conversational and pleasant. She denies any pain, and has an appetite; Mame states that she has not had a bowel movement since admission. She reports that she slept well, but has new-onset tremor in the right hand, and worsening night sweats. Date of Admission May 05, 2021 at 17:11 Date Seen by a Provider: May 06, 2021 Time Seen by a Provider: 08:30 I consulted on this patient on 05/06/21 12:36 Attending Physician Breanna Darnell DO Admitting Physician Breanna Darnell DO Consult Allergies and Home Medications Allergies Coded Allergies: sulfamethoxazole (Verified Allergy, Intermediate, rash, SOB, 10/23/18) trimethoprim (Verified Allergy, Intermediate, rash, SOB, 10/23/18) cephalexin (Verified Allergy, Unknown, 10/02/18) Patient Home Medication List Home Medication List Reviewed: Yes ALPRAZolam (ALPRAZolam) 0.25 Mg Tablet, 0.25 MG PO Q8H PRN for ANXIETY, (Reported) Entered as Reported by: TOMI OCONNOR on 04/17/21 1700 Last Action: Held Albuterol Sulfate (Proair Hfa) 1 Puff Puff, 2 PUFF IH Q4H PRN for SHORTNESS OF BREATH, (Reported) Entered as Reported by: EDGARDO RIVAS on 12/15/18 1531 Last Action: Continued Amlodipine Besylate (Norvasc) 10 Mg Tablet, 10 MG PO DAILY Prescribed by: RASHAUN HORN on 04/21/21 0920 Last Action: Continued Apixaban (Eliquis) 5 Mg Tablet, 5 MG PO BID, (Reported) Entered as Reported by: EDGARDO RIVAS on 10/03/181126 Last Action: Continued Atorvastatin Calcium (Atorvastatin Calcium) 20 Mg Tablet, 20 MG PO HS, (Reported) Entered as Reported by: EDGARDO RIVAS on 10/03/181126 Last Action: Continued Cholecalciferol (Vitamin D3) (Vitamin D3) 125 Mcg/1 Ml Drops, 125 MCG PO DAILY, (Reported) Entered as Reported by: TOMI OCONNOR on 06/17/201120 Last Action: Converted Diltiazem HCl (Diltiazem 24Hr ER) 240 Mg Cap.er.24h, 240 MG PO BID Prescribed by: RASHAUN HORN on 04/30/21 0943 Last Action: Continued Docusate Sodium (Docusate Sodium) 100 Mg Capsule, 100 MG PO TID PRN for CONSTIPATION-1ST LINE, (Reported) Entered as Reported by: TOMI OCONNOR on 04/17/21 170 Last Action: Continued Estradiol (Estradiol Tablet) 0.5 Mg Tablet, 0.5 MG PO DAILY, (Reported) Entered as Reported by: VICTOR MANUEL DASILVA on 05/28/16 1331 Last Action: Converted Fluticasone Propionate (Fluticasone Propionate) 16 Gm Sumner.susp, 2 SPRAYS NS HS PRN for ALLERGIES, (Reported) Entered as Reported by: EDGARDO RIVAS on 10/03/181126 Last Action: Continued Furosemide (Furosemide) 40 Mg Tablet, 40 MG PO DAILY PRN for FLUID RETENTION, (Reported) Entered as Reported by: TOMI OCONNOR on 05/22/19 0744 Last Action: Continued Ipratropium/Albuterol Sulfate (Iprat-Albut 0.5-3(2.5) mg/3 ml) 3 Ml Ampul.neb, 3 ML INH RTBID Prescribed by: BREANNA DARNELL on 04/21/21 09 Last Action: Continued Lisinopril (Lisinopril) 20 Mg Tablet, 40 MG PO DAILY Prescribed by: BREANNA DARNELL on 04/21/21 09 Last Action: Continued Loratadine (Loratadine) 10 Mg Tablet, 10 MG PO DAILY, (Reported) Entered as Reported by: TOMI OCONNOR on 05/22/19 0744 Last Action: Continued Metoprolol Succinate (Metoprolol Succinate) 25 Mg Tab.er.24h, 25 MG PO BID Prescribed by: RASHAUN HORN on 04/30/21 0943 Last Action: Continued Montelukast Sodium (Montelukast Sodium) 10 Mg Tablet, 10 MG PO HS, (Reported) Entered as Reported by: EDGARDO RIVAS on 10/03/181126 Last Action: Continued Potassium Chloride (Potassium Chloride) 10 Meq Capsule.er, 20 MEQ PO DAILY PRN for WHEN TAKING FUROSEMIDE, (Reported) Entered as Reported by: TOMI OCONNOR on 06/17/20 112 Last Action: Converted Sertraline HCl (Sertraline HCl) 100 Mg Tablet, 150 MG PO DAILY, (Reported) Entered as Reported by: EDGARDO RIVAS on 10/03/181126 Last Action: Continued Trazodone HCl (Trazodone HCl) 50 Mg Tablet, 50 MG PO HS, (Reported) Entered as Reported by: EDGARDO RIVAS on 10/03/181126 Last Action: Continued Discontinued Medications Baclofen (Baclofen) 10 Mg Tablet, 10 MG PO BID PRN for MUSCLE SPASMS, (Reported) Discontinued Reason: No Longer Taking Entered as Reported by: TOMI OCONNOR on 04/17/21 1700 Last Action: Discontinued Diltiazem HCl (Diltiazem ER) 240 Mg Capsule.er, 240 MG PO DAILY, (Reported) Entered as Reported by: EDGARDO RIVAS on 12/15/18 1531 Fluticasone/Salmeterol (Advair 100-50 Diskus) 1 Each Blst.w.dev, 1 PUFF INH BID PRN for SHORTNESS OF BREATH, (Reported) Discontinued Reason: No Longer Taking Entered as Reported by: EDGARDO RIVAS on 12/29/16 0815 Last Action: Discontinued Hydralazine HCl (Hydralazine HCl) 25 Mg Tablet, 25 MG PO TID Prescribed by: BREANNA DARNELL on 04/21/21 09 Oxycodone HCl/Acetaminophen (Oxycodone-Acetaminophen 5-325) 1 Each Tablet, 1-2 EA PO Q6H PRN for PAIN-MODERATE (5-7), (Reported) Discontinued Reason: No Longer Taking Entered as Reported by: TOMI OCONNOR on 04/17/211699 Last Action: Discontinued Prednisone (Prednisone) 10 Mg Tab.ds.pk, 10 MG PO DAILY Prescribed by: BREANNA DARNELL on 04/21/21902 Tizanidine HCl (Tizanidine HCl) 4 Mg Tablet, 4 MG PO TID PRN for MUSCLE SPASMS, (Reported) Discontinued Reason: No Longer Taking Entered as Reported by: TOMI OCONNOR on 04/17/211699 Last Action: Discontinued Past Iqcjswt-Kblkvh-Uoofwv Hx Patient Social History Employed/Student: retired Tobacco Use?: No Smoking Status: Never a Smoker Use of E-Cig and/or Vaping dev: No Substance use?: No Alcohol Use?: No Pt feels they are or have been: No Immunizations Up To Date Date of Influenza Vaccine: Apr 30, 2021 First/Initial COVID19 Vaccinat: 09/2020 Second COVID19 Vaccination Jamar: 09/2020 Tetanus Booster (TDap): Less Than 5 Years Hepatitis A: No Hepatitis B: No Date of Pneumonia Vaccine: Apr 04, 2020 Seasonal Allergies Seasonal Allergies: Yes Current Status status: No status: No Advance Directives: Yes Advance Directive Location: Copy from prev record Communicates: Verbally Primary Language: Belarusian Preferred Spoken Language: Belarusian Is interpretation needed?: No Sensory deficits: Vision impairment Implanted or Applied Medical D: None Past Medical History Surgeries: Orthopedic Asthma, Sleep Apnea Currently Using CPAP: Yes Currently Using BIPAP: No Atrial Fibrillation, High Cholesterol, Hypertension [employer] History: Menopausal Sexually Transmitted Disease: No Bladder Infection Gastroesophageal Reflux Arthritis, Chronic Back Pain Diabetes, Non-Insulin dep Cataract Loss of Vision: Bilateral Hearing Impairment: Denies Anxiety, Depression Blood Disorders: No Adverse Reaction/Blood Tranf: No Family Medical History Arthritis 19 MOTHER Cataracts 19 FATHER 19 MOTHER Colon cancer 19 FATHER Deafness or hearing loss 19 FATHER Dementia 19 FATHER FH: macular degeneration 19 MOTHER FH: prostate cancer 19 FATHER FH: skin cancer 19 FATHER Gout 19 MOTHER Hypertension 19 FATHER 19 MOTHER Myocardial infarction 19 FATHER 19 MOTHER Review of Systems Constitutional: see HPI, fever, malaise, weakness Respiratory: see HPI, cough, phlegm Cardiovascular: see HPI Psychiatric/Neurological: No Symptoms Reported, Other (Mild episodes of delirium/disorientation d/t penumonia) Physical Exam Vital Signs Vital Signs - First Documented 05/05/21 05/05/21 05/05/21 05/05/21 17:51 17:56 20:00 20:45 Temp 37.6 Pulse 79 Resp 22 B/P (MAP) 128/70 (89) Pulse Ox 91 O2 Delivery Room Air O2 Flow Rate 2.00 FiO2 21 Capillary Refill : Height, Weight, BMI Height: 5'7.00" Weight: 291lbs. 6.0oz. 132.887896ab; 44.87 BMI Method:Stated General Appearance: No Apparent Distress, WD/WN, Mild Distress HEENT: PERRL/EOMI Respiratory: Chest Non Tender, Lungs Clear, Normal Breath Sounds, No Accessory Muscle Use, No Respiratory Distress Cardiovascular: Regular Rate, Rhythm, No Edema, No Gallop Neurologic/Psychiatric: Alert, Oriented x3, Normal Mood/Affect Skin: Normal Color, Warm/Dry Comments Laboratory Tests 05/06/21 05:36: White Blood Count 7.6, Red Blood Count 4.17, Hemoglobin 12.0, Hematocrit 37, Mean Corpuscular Volume 89, Mean Corpuscular Hemoglobin 29, Mean Corpuscular Hemoglobin Concent 33, Red Cell Distribution Width 13.4, Platelet Count 161, Mean Platelet Volume 9.6, Immature Granulocyte % (Auto) 1, Neutrophils (%) (Auto) 91H, Lymphocytes (%) (Auto) 7L, Monocytes (%) (Auto) 1, Eosinophils (%) (Auto) 0, Basophils (%) (Auto) 0, Neutrophils # (Auto) 6.8, Lymphocytes # (Auto) 0.6L, Monocytes # (Auto) 0.1, Eosinophils # (Auto) 0.0, Basophils # (Auto) 0.0, Immature Granulocyte # (Auto) 0.1, Sodium Level 137, Potassium Level 3.9, Chloride Level 105, Carbon Dioxide Level 21, Anion Gap 11, Blood Urea Nitrogen 11, Creatinine 0.68, Estimat Glomerular Filtration Rate 85, BUN/Creatinine Ratio 16, Glucose Level 210H, Calcium Level 9.1, Corrected Calcium 9.8, Total Bilirubin 0.6, Aspartate Amino Transf (AST/SGOT) 32, Alanine Aminotransferase (ALT/SGPT) 71H, Alkaline Phosphatase 177H, Total Protein 6.1L, Albumin 3.1L Imaging NAME: MAME [facility]EV[facility] REC#: [id number] PT STATUS: ADM Katherine : 1945 PHYSICIAN: BREANNA DARNELL DO ADMIT DATE: 05/05/21 Signed Date of Exam:05/05/21 CHEST 1 VIEW, AP/PA ONLY INDICATION: Fever. Portable chest 5:56 PM FINDINGS: There is a 4 cm round infiltrate in the left midlung at the level of the hilum. There are no effusions or pneumothoraces. IMPRESSION: Left perihilar infiltrate new since 05/03/2021 suspicious for pneumonia. Dictated by: Dictated on workstation # [id number] Dict: 05/05/[id number] Trans: 05/05/211758 [id number] Interpreted by: FARHEEN RODRIGUEZ MD Electronically signed by: FARHEEN RODRIGUEZ MD 05/05/211758 Assessment/Plan Assessment and Plan Lobar Pneumonia Redemonstrated nodular masslike consolidation in the left midlung which is unchanged per CXR of 05-06-21 Continue IV vancomycin and cefepime Monitor vitals (BP, HR) Paroxysmal A fib and typical A flutter First documented on 09-30-18 at [facility]). Placed on flecainide at [facility] on 09/30/18 Has had typical atrial flutter ablation by Dr Thompson on 01/30/19 Has had ILR placement by Dr Thompson n 04/06/19 Post a-fib ablation on 05-22-2019 by . Now off flecainide ILR interrogation of Feb 2021 showed episodes of a-fib with RVR in January Awaiting apptt at [facility] for recurrent a fib at [facility] (Dr Thompson) OAC with Eliquis CAD Minor coronary artery disease per cardiac catheterization of July 2006. MPI of 01/17/15 did not show ischemia or infarction, and LVEF was 54% Echo 12/16/18 showed LVEF 60-65%, mild MR, RVSP 25 mmHg Abnormal ECG RBBB, chronic History of bronchial asthma Managed by PCP Hyperlipidemia Being treated and being followed by Dr. Darnell. Glucose intolerance Managed by Dr. Darnell Hypertension Fairly well controlled Currently mildly elevated Obesity Elevated body mass index of approximately 44 Chronic diastolic CHF Clinically compensated Obstructive sleep apnea syndrome - treated with C-PAP therapy. History of overactive bladder and urinary incontinence - S/p botox injection in September 2017 and Mar 2019 by her urologist in [facility] in [place]. Orthopedic - Left knee and R hip replacement. Admission Diagnosis New-onset fever following recent hospitalization Admission Status: Inpatient Order (span 2 midnights) Reason for Inpatient Admission: Pneumonia BREANNA DARNELL DO 05/07/21 0514: History of Present Illness History of Present Illness Reason for visit/HPI Chief complaint: Fever with left lower lobe pneumonia History of present illness: This is a 76-year-old white female history of atrial fibrillation and diastolic heart failure who has had several ER visits and inpatient stays the last few weeks following a recurrence of atrial fibrillation with rapid ventricular response. She has had this issue before before ablation resolve the atrial fibrillation since it appears when she is in A. fib with RVR and difficulty controlling that condition it destabilizes the rest of her body. She had an ER visit due to fever of unknown source chest x-ray normal UA normal influenza was normal so she was discharged home but seen in my clinic on Wednesday found to have findings consistent with bacterial infection so the decision was made to admit to the hospital to fully evaluate. Patient was placed on empiric antibiotics and chest x-ray revealed left lower lobe pneumonia. Currently she is feeling much better and overall grateful to be in the hospital due to new onset delirium prior to admission. Allergies and Home Medications Allergies Coded Allergies: sulfamethoxazole (Verified Allergy, Intermediate, rash, SOB, 10/23/18) trimethoprim (Verified Allergy, Intermediate, rash, SOB, 10/23/18) cephalexin (Verified Allergy, Unknown, 10/02/18) Patient Home Medication List Home Medication List Reviewed: Yes ALPRAZolam (ALPRAZolam) 0.25 Mg Tablet, 0.25 MG PO Q8H PRN for ANXIETY, (Reported) Entered as Reported by: TOMI OCONNOR on 04/17/21 170 Last Action: Held Albuterol Sulfate (Proair Hfa) 1 Puff Puff, 2 PUFF IH Q4H PRN for SHORTNESS OF BREATH, (Reported) Entered as Reported by: EDGARDO RIVAS on 12/15/18 1531 Last Action: Continued Amlodipine Besylate (Norvasc) 10 Mg Tablet, 10 MG PO DAILY Prescribed by: RASHAUN HORN on 04/21/21 0920 Last Action: Continued Apixaban (Eliquis) 5 Mg Tablet, 5 MG PO BID, (Reported) Entered as Reported by: EDGARDO RIVAS on 10/03/181126 Last Action: Continued Atorvastatin Calcium (Atorvastatin Calcium) 20 Mg Tablet, 20 MG PO HS, (Reported) Entered as Reported by: EDGARDO RIVAS on 10/03/181126 Last Action: Continued Cholecalciferol (Vitamin D3) (Vitamin D3) 125 Mcg/1 Ml Drops, 125 MCG PO DAILY, (Reported) Entered as Reported by: TOMI OCONNOR on 06/17/201120 Last Action: Converted Diltiazem HCl (Diltiazem 24Hr ER) 240 Mg Cap.er.24h, 240 MG PO BID Prescribed by: RASHAUN HORN on 04/30/21 0943 Last Action: Continued Docusate Sodium (Docusate Sodium) 100 Mg Capsule, 100 MG PO TID PRN for CONSTIPATION-1ST LINE, (Reported) Entered as Reported by: TOMI OCONNOR on 04/17/21 170 Last Action: Continued Estradiol (Estradiol Tablet) 0.5 Mg Tablet, 0.5 MG PO DAILY, (Reported) Entered as Reported by: VICTOR MANUEL DASILVA on 05/28/16 1331 Last Action: Converted Fluticasone Propionate (Fluticasone Propionate) 16 Gm Sumner.susp, 2 SPRAYS NS HS PRN for ALLERGIES, (Reported) Entered as Reported by: EDGARDO RIVAS on 10/03/181126 Last Action: Continued Furosemide (Furosemide) 40 Mg Tablet, 40 MG PO DAILY PRN for FLUID RETENTION, (Reported) Entered as Reported by: TOMI OCONNOR on 05/22/19 0744 Last Action: Continued Ipratropium/Albuterol Sulfate (Iprat-Albut 0.5-3(2.5) mg/3 ml) 3 Ml Ampul.neb, 3 ML INH RTBID Prescribed by: BREANNA DARNELL on 04/21/21928 Last Action: Continued Lisinopril (Lisinopril) 20 Mg Tablet, 40 MG PO DAILY Prescribed by: BREANNA DARNELL on 04/21/21 09 Last Action: Continued Loratadine (Loratadine) 10 Mg Tablet, 10 MG PO DAILY, (Reported) Entered as Reported by: TOMI OCONNOR on 05/22/19 0744 Last Action: Continued Metoprolol Succinate (Metoprolol Succinate) 25 Mg Tab.er.24h, 25 MG PO BID Prescribed by: RASHAUN HORN on 04/30/21 0943 Last Action: Continued Montelukast Sodium (Montelukast Sodium) 10 Mg Tablet, 10 MG PO HS, (Reported) Entered as Reported by: EDGARDO RIVAS on 10/03/181126 Last Action: Continued Potassium Chloride (Potassium Chloride) 10 Meq Capsule.er, 20 MEQ PO DAILY PRN for WHEN TAKING FUROSEMIDE, (Reported) Entered as Reported by: TOMI OCONNOR on 06/17/201120 Last Action: Converted Sertraline HCl (Sertraline HCl) 100 Mg Tablet, 150 MG PO DAILY, (Reported) Entered as Reported by: EDGARDO RIVAS on 10/03/181126 Last Action: Continued Trazodone HCl (Trazodone HCl) 50 Mg Tablet, 50 MG PO HS, (Reported) Entered as Reported by: EDGARDO RIVAS on 10/03/181126 Last Action: Continued Discontinued Medications Baclofen (Baclofen) 10 Mg Tablet, 10 MG PO BID PRN for MUSCLE SPASMS, (Reported) Discontinued Reason: No Longer Taking Entered as Reported by: TOMI OCONNOR on 04/17/21 1700 Last Action: Discontinued Diltiazem HCl (Diltiazem ER) 240 Mg Capsule.er, 240 MG PO DAILY, (Reported) Entered as Reported by: EDGARDO RIVAS on 12/15/18 1531 Fluticasone/Salmeterol (Advair 100-50 Diskus) 1 Each Blst.w.dev, 1 PUFF INH BID PRN for SHORTNESS OF BREATH, (Reported) Discontinued Reason: No Longer Taking Entered as Reported by: EDGARDO RIVAS on 12/29/16 0815 Last Action: Discontinued Hydralazine HCl (Hydralazine HCl) 25 Mg Tablet, 25 MG PO TID Prescribed by: BREANNA DARNELL on 04/21/21902 Oxycodone HCl/Acetaminophen (Oxycodone-Acetaminophen 5-325) 1 Each Tablet, 1-2 EA PO Q6H PRN for PAIN-MODERATE (5-7), (Reported) Discontinued Reason: No Longer Taking Entered as Reported by: TOMI OCONNOR on 04/17/211699 Last Action: Discontinued Prednisone (Prednisone) 10 Mg Tab.ds.pk, 10 MG PO DAILY Prescribed by: BREANNA DARNELL on 04/21/21902 Tizanidine HCl (Tizanidine HCl) 4 Mg Tablet, 4 MG PO TID PRN for MUSCLE SPASMS, (Reported) Discontinued Reason: No Longer Taking Entered as Reported by: TOMI OCONNOR on 04/17/211699 Last Action: Discontinued Past Rsvexxc-Zznuhi-Hjmjpd Hx Patient Social History Marrital Status: Employed/Student: retired Smoking Status: Never a Smoker Past Medical History Surgeries: Orthopedic Asthma, Sleep Apnea Currently Using CPAP: Yes Currently Using BIPAP: No Atrial Fibrillation, Chronic Edema/Swelling, High Cholesterol, Hypertension Kidney Infection, Bladder Infection Arthritis, Chronic Back Pain Anxiety, Depression Family Medical History Arthritis 19 MOTHER Cataracts 19 FATHER 19 MOTHER Colon cancer 19 FATHER Deafness or hearing loss 19 FATHER Dementia 19 FATHER FH: macular degeneration 19 MOTHER FH: prostate cancer 19 FATHER FH: skin cancer 19 FATHER Gout 19 MOTHER Hypertension 19 FATHER 19 MOTHER Myocardial infarction 19 FATHER 19 MOTHER Review of Systems Constitutional: see HPI, dizziness, fever, malaise, weakness EENTM: no symptoms reported Respiratory: see HPI, cough Cardiovascular: see HPI Gastrointestinal: no symptoms reported Genitourinary: no symptoms reported Musculoskeletal: no symptoms reported Skin: no symptoms reported Psychiatric/Neurological: See HPI All Other Systems Reviewed Negative Unless Noted: Yes Physical Exam General Appearance: No Apparent Distress, WD/WN, Anxious, Chronically ill, Obese Eyes: Bilateral Eye Normal Inspection, Bilateral Eye PERRL, Bilateral Eye EOMI HEENT: PERRL/EOMI, Normal ENT Inspection, Pharynx Normal Neck: Full Range of Motion, Normal Inspection, Non Tender, Supple, Carotid Bruit Respiratory: Chest Non Tender, No Accessory Muscle Use, No Respiratory Distress, Decreased Breath Sounds, Wheezing Cardiovascular: Regular Rate, Rhythm, No Edema, No Gallop, No JVD, No Murmur, Normal Peripheral Pulses Gastrointestinal: Normal Bowel Sounds, No Organomegaly, No Pulsatile Mass, Non Tender, Soft Back: Normal Inspection, No CVA Tenderness, No Vertebral Tenderness Extremity: Normal Capillary Refill, Normal Inspection, Normal Range of Motion, Non Tender, No Calf Tenderness, No Pedal Edema Neurologic/Psychiatric: Alert, Oriented x3, No Motor/Sensory Deficits, Normal Mood/Affect Skin: Normal Color, Warm/Dry Lymphatic: No Adenopathy Assessment/Plan Assessment and Plan Assessment: Left lower lobe pneumonia Fever/SIRS Atrial fibrillation with rapid ventricular response recent in need of ablation History of UTIs Diastolic heart failure Obstructive sleep apnea on CPAP Arthritis Depression Insomnia Plan: Home meds Rate control Monitor closely IV antibiotics Problems: (1) SIRS (systemic inflammatory response syndrome) (2) Pneumonia (3) ADOLPH on CPAP Status: Chronic (4) Morbid obesity (5) Mixed hyperlipidemia (6) Persistent atrial fibrillation (7) Chronic diastolic heart failure (8) Bradycardia (9) Primary hypertension (10) Recurrent UTI Status: Chronic (11) Hyperlipidemia Status: Chronic (12) Depression Status: Chronic (13) Anxiety Status: Chronic (14) Insomnia Status: Chronic (15) Acute asthma exacerbation Status: Resolved Admission Diagnosis Admission Status: Observation Supervisory-Addendum Brief Verification & Attestation Participated in pt care: history, MDM, physical Personally performed: exam, history, MDM, supervision of care Care discussed with: Medical Student Procedures: n/a Results interpretation: Verified all documentation Verification and Attestation of Medical Student E/M Service A medical student performed and documented this service in my presence. I reviewed and verified all information documented by the medical student and made modifications to such information, when appropriate. I personally performed the physical exam and medical decision making. Breanna Darnell, May 07, 2021,05:08 DAYA SHEPPARD May 06, 2021 12:41 BREANNA DARNELL DO May 07, 2021 05:14
--- NOTE | 2021-05-06 14:16 | Consultation-Cardiology ---
HPI-Cardiology Cardiology Consultation: Date of Consultation 05/06/21 Time Seen by a Provider: 13:50 Date of Admission Attending Physician Breanna Darnell DO Admitting Physician Breanna Darnell DO Consulting Physician QAMAR GONZALEZ MD, MA, FACP, FACC, FSCAI, CCDS HPI: Chief Complaint: Reason for Cardiology consult: Shortness of breath HPI Ms. Archer is a 76 yr old female admitted to [facility] from Dr. Darnell's office. She reports she went home last week from the hospital and by the weekend she developed fever, chills and increasing SOB along with frequent cough. She reports she went to the ED to be evaluated and was told she had an infection and to f/u with her PCP. She went to see Dr. Darnell yesterday at her office d/t continuing to feel increasingly unwell. She denies any c/o CP, syncope, near syncope or LE swelling. She reports an occ feeling of rapid heartbeat which only lasts for a few minutes and have been infrequent. She reports her BP has been elevated at home. Review of Systems-Cardiology Review of Systems Constitutional: chills, fever, malaise Eyes: vision change Ears/Nose/Throat: No recent hearing loss Respiratory: As described under HPI Cardiovascular: As described under HPI Gastrointestinal: No constipation; diarrhea Musculoskeletal: no symptoms reported Skin: No rash on exposed areas, No ulcerations on exposed areas Psychiatric/Neurological: anxiety; No seizure, No focal weakness, No syncope XYN-Zozkti-Nzeeto Hx Patient Social History Employed/Student: retired Smoking Status: Never a Smoker 2nd Hand Smoke Exposure: No Have you traveled recently?: No Alcohol Use?: No Pt feels they are or have been: No Immunizations Up To Date Tetanus Booster (TDap): Less than 5yrs Date of Pneumonia Vaccine: Apr 04, 2020 Date of Influenza Vaccine: Apr 30, 2021 Past Medical History PMH As described under Assessment. Family Medical History Family Medical History: She reports her mother and father both had CAD and HTN. Family History: Arthritis 19 MOTHER Cataracts 19 FATHER 19 MOTHER Colon cancer 19 FATHER Deafness or hearing loss 19 FATHER Dementia 19 FATHER FH: macular degeneration 19 MOTHER FH: prostate cancer 19 FATHER FH: skin cancer 19 FATHER Gout 19 MOTHER Hypertension 19 FATHER 19 MOTHER Myocardial infarction 19 FATHER 19 MOTHER Allergies and Home Medications Allergies Coded Allergies: sulfamethoxazole (Verified Allergy, Intermediate, rash, SOB, 3/31/19) trimethoprim (Verified Allergy, Intermediate, rash, SOB, 10/23/18) cephalexin (Verified Allergy, Unknown, 10/02/18) Patient Home Medication List Home Medication List Reviewed: Yes ALPRAZolam (ALPRAZolam) 0.25 Mg Tablet, 0.25 MG PO Q8H PRN for ANXIETY, (Reported) Entered as Reported by: TOMI OCONNOR on 04/17/21 1700 Last Action: Held Albuterol Sulfate (Proair Hfa) 1 Puff Puff, 2 PUFF IH Q4H PRN for SHORTNESS OF BREATH, (Reported) Entered as Reported by: EDGARDO RIVAS on 12/15/18 1531 Last Action: Continued Amlodipine Besylate (Norvasc) 10 Mg Tablet, 10 MG PO DAILY Prescribed by: RASHAUN HORN on 04/21/21 0920 Last Action: Continued Apixaban (Eliquis) 5 Mg Tablet, 5 MG PO BID, (Reported) Entered as Reported by: EDGARDO RIVAS on 10/03/18 112 Last Action: Continued Atorvastatin Calcium (Atorvastatin Calcium) 20 Mg Tablet, 20 MG PO HS, (Reported) Entered as Reported by: EDGARDO RIVAS on 10/03/18 112 Last Action: Continued Cholecalciferol (Vitamin D3) (Vitamin D3) 125 Mcg/1 Ml Drops, 125 MCG PO DAILY, (Reported) Entered as Reported by: TOMI OCONNOR on 06/17/20 1121 Last Action: Converted Diltiazem HCl (Diltiazem 24Hr ER) 240 Mg Cap.er.24h, 240 MG PO BID Prescribed by: RASHAUN HORN on 04/30/21 0943 Last Action: Continued Docusate Sodium (Docusate Sodium) 100 Mg Capsule, 100 MG PO TID PRN for CONSTIPATION-1ST LINE, (Reported) Entered as Reported by: TOMI OCONNOR on 04/17/21 1700 Last Action: Continued Estradiol (Estradiol Tablet) 0.5 Mg Tablet, 0.5 MG PO DAILY, (Reported) Entered as Reported by: VICTOR MANUEL DASILVA on 05/28/16 1331 Last Action: Converted Fluticasone Propionate (Fluticasone Propionate) 16 Gm Saline.susp, 2 SPRAYS NS HS PRN for ALLERGIES, (Reported) Entered as Reported by: EDGARDO RIVAS on 10/03/181126 Last Action: Continued Furosemide (Furosemide) 40 Mg Tablet, 40 MG PO DAILY PRN for FLUID RETENTION, (Reported) Entered as Reported by: TOMI OCONNOR on 05/22/19743 Last Action: Continued Ipratropium/Albuterol Sulfate (Iprat-Albut 0.5-3(2.5) mg/3 ml) 3 Ml Ampul.neb, 3 ML INH RTBID Prescribed by: BREANNA DARNELL on 04/21/21 09 Last Action: Continued Lisinopril (Lisinopril) 20 Mg Tablet, 40 MG PO DAILY Prescribed by: BREANNA DARNELL on 04/21/21 09 Last Action: Continued Loratadine (Loratadine) 10 Mg Tablet, 10 MG PO DAILY, (Reported) Entered as Reported by: TOMI OCONNOR on 05/22/19743 Last Action: Continued Metoprolol Succinate (Metoprolol Succinate) 25 Mg Tab.er.24h, 25 MG PO BID Prescribed by: RASHAUN HORN on 04/30/21 0943 Last Action: Continued Montelukast Sodium (Montelukast Sodium) 10 Mg Tablet, 10 MG PO HS, (Reported) Entered as Reported by: EDGARDO RIVAS on 10/03/181126 Last Action: Continued Potassium Chloride (Potassium Chloride) 10 Meq Capsule.er, 20 MEQ PO DAILY PRN for WHEN TAKING FUROSEMIDE, (Reported) Entered as Reported by: TOMI OCONNOR on 06/17/20 112 Last Action: Converted Sertraline HCl (Sertraline HCl) 100 Mg Tablet, 150 MG PO DAILY, (Reported) Entered as Reported by: EDGARDO RIVAS on 10/03/181126 Last Action: Continued Trazodone HCl (Trazodone HCl) 50 Mg Tablet, 50 MG PO HS, (Reported) Entered as Reported by: EDGARDO RIVAS on 10/03/181126 Last Action: Continued Discontinued Medications Baclofen (Baclofen) 10 Mg Tablet, 10 MG PO BID PRN for MUSCLE SPASMS, (Reported) Discontinued Reason: No Longer Taking Entered as Reported by: TOMI OCONNOR on 04/17/21 1700 Last Action: Discontinued Diltiazem HCl (Diltiazem ER) 240 Mg Capsule.er, 240 MG PO DAILY, (Reported) Entered as Reported by: EDGARDO RIVAS on 12/15/18 1531 Fluticasone/Salmeterol (Advair 100-50 Diskus) 1 Each Blst.w.dev, 1 PUFF INH BID PRN for SHORTNESS OF BREATH, (Reported) Discontinued Reason: No Longer Taking Entered as Reported by: EDGARDO RIVAS on 12/29/16 0815 Last Action: Discontinued Hydralazine HCl (Hydralazine HCl) 25 Mg Tablet, 25 MG PO TID Prescribed by: BREANNA DARNELL on 04/21/21 09 Oxycodone HCl/Acetaminophen (Oxycodone-Acetaminophen 5-325) 1 Each Tablet, 1-2 EA PO Q6H PRN for PAIN-MODERATE (5-7), (Reported) Discontinued Reason: No Longer Taking Entered as Reported by: TOMI OCONNOR on 04/17/211699 Last Action: Discontinued Prednisone (Prednisone) 10 Mg Tab.ds.pk, 10 MG PO DAILY Prescribed by: BREANNA DARNELL on 04/21/21 09 Tizanidine HCl (Tizanidine HCl) 4 Mg Tablet, 4 MG PO TID PRN for MUSCLE SPASMS, (Reported) Discontinued Reason: No Longer Taking Entered as Reported by: TOMI OCONNOR on 04/17/211699 Last Action: Discontinued Physical Exam-Cardiology Physical Exam Vital Signs/I&O 05/06/21 05/06/21 05/06/21 05/06/21 04:03 07:26 07:29 07:50 Temp 35.6 35.8 Pulse 63 63 74 Resp 18 18 B/P (MAP) 126/67 (86) 164/78 (106) Pulse Ox 93 96 96 O2 Delivery Nasal Cannula O2 Flow Rate 2.00 05/06/21 05/06/21 05/06/21 08:00 11:25 13:00 Temp 36.6 Pulse 70 66 Resp 18 B/P (MAP) 150/76 (100) Pulse Ox 96 O2 Delivery Nasal Cannula O2 Flow Rate 2.00 05/06/21 00:00 Intake Total 600 ml Balance 600 ml Capillary Refill : Constitutional: AAO x 3, well-developed, well-nourished HEENT: PERRL, hearing is well preserved, oral hygience is good Neck: carotid bruit, carotid pulses are 2 + bilaterally Respiratory: accessory muscle use, respiratory distress, chest expansion is symmetric, chest is bilaterally symmetric, other (diminshed breath sounds) Cardiovascular: regular rate-rhythm, JVD, S1 and S2 Gastrointestinal: No tender; soft, round, audible bowel sounds Extremities: no lower extremity edema bilateral Neurologic/Psychiatric: grossly intact (moves all extremities) Skin: No rash on exposed areas, No ulcerations on exposed areas Data Review Labs Laboratory Tests 05/05/21 17:46: White Blood Count 10.6, Red Blood Count 4.51, Hemoglobin 13.1, Hematocrit 40, Mean Corpuscular Volume 89, Mean Corpuscular Hemoglobin 29, Mean Corpuscular Hemoglobin Concent 33, Red Cell Distribution Width 13.8, Platelet Count 194, Mean Platelet Volume 9.6, Immature Granulocyte % (Auto) 1, Neutrophils (%) (Auto) 81H, Lymphocytes (%) (Auto) 11L, Monocytes (%) (Auto) 6, Eosinophils (%) (Auto) 1, Basophils (%) (Auto) 0, Neutrophils # (Auto) 8.6H, Lymphocytes # (Auto) 1.2, Monocytes # (Auto) 0.7, Eosinophils # (Auto) 0.1, Basophils # (Auto) 0.0, Immature Granulocyte # (Auto) 0.1, Sodium Level 137, Potassium Level 4.0, Chloride Level 104, Carbon Dioxide Level 20L, Anion Gap 13, Blood Urea Nitrogen 11, Creatinine 0.79, Estimat Glomerular Filtration Rate 71, BUN/Creatinine Ratio 14, Glucose Level 131H, Lactic Acid Level 1.00, Calcium Level 9.8, Corrected Calcium 10.2H, Total Bilirubin 0.9, Aspartate Amino Transf (AST/SGOT) 48H, Alanine Aminotransferase (ALT/SGPT) 85H, Alkaline Phosphatase 192H, Total Protein 6.7, Albumin 3.5 05/05/21 18:23: Urine Color YELLOW, Urine Clarity CLEAR, Urine pH 6.0, Urine Specific [place] 1.010L, Urine Protein 1+H, Urine Glucose (UA) NEGATIVE, Urine Ketones NEGATIVE, Urine Nitrite NEGATIVE, Urine Bilirubin 1+H, Urine Urobilinogen 1.0, Urine Leukocyte Esterase TRACEH, Urine RBC (Auto) TRACE-IH, Urine RBC 0-2, Urine WBC 0-2, Urine Squamous Epithelial Cells 2-5, Urine Crystals NONE, Urine Bacteria NEGATIVE, Urine Casts NONE, Urine Mucus NEGATIVE, Urine Culture Indicated NO 05/06/21 05:36: White Blood Count 7.6, Red Blood Count 4.17, Hemoglobin 12.0, Hematocrit 37, Mean Corpuscular Volume 89, Mean Corpuscular Hemoglobin 29, Mean Corpuscular Hemoglobin Concent 33, Red Cell Distribution Width 13.4, Platelet Count 161, Mean Platelet Volume 9.6, Immature Granulocyte % (Auto) 1, Neutrophils (%) (Auto) 91H, Lymphocytes (%) (Auto) 7L, Monocytes (%) (Auto) 1, Eosinophils (%) (Auto) 0, Basophils (%) (Auto) 0, Neutrophils # (Auto) 6.8, Lymphocytes # (Auto) 0.6L, Monocytes # (Auto) 0.1, Eosinophils # (Auto) 0.0, Basophils # (Auto) 0.0, Immature Granulocyte # (Auto) 0.1, Sodium Level 137, Potassium Level 3.9, Chloride Level 105, Carbon Dioxide Level 21, Anion Gap 11, Blood Urea Nitrogen 11, Creatinine 0.68, Estimat Glomerular Filtration Rate 85, BUN/Creatinine Ratio 16, Glucose Level 210H, Calcium Level 9.1, Corrected Calcium 9.8, Total Bilirubin 0.6, Aspartate Amino Transf (AST/SGOT) 32, Alanine Aminotransferase (ALT/SGPT) 71H, Alkaline Phosphatase 177H, Total Protein 6.1L, Albumin 3.1L A/P-Cardiology Assessment/Admission Diagnosis Progressive dyspnea - Redemonstrated nodular, masslike consolidation in the left midlung which is unchanged per CXR of 05-06-21, managed by Dr Darnell Paroxysmal A fib and typical A flutter - first documented on 09-30-18 at [facility]). Placed on flecainide at [facility] on 09/30/18 - has had typical atrial flutter ablation by Dr Thompson on 01/30/19 - has had ILR placement by Dr Thompson n 04/06/19 - Post a-fib ablation on 05-22-2019 by . Now off flecainide - ILR interrogation of Feb 2021 showed episodes of a-fib with RVR in January - awaiting apptt at [facility] for recurrent a fib at [facility] (Dr Thompson) - OAC with Eliquis CAD - Minor coronary artery disease per cardiac catheterization of July 2006. - MPI of 01/17/15 did not show ischemia or infarction, and LVEF was 54% - Echo 12/16/18 showed LVEF 60-65%, mild MR, RVSP 25 mmHg Abnormal ECG - RBBB, chronic History of bronchial asthma - managed by PCP Hyperlipidemia - being treated and being followed by Dr. Darnell. Glucose intolerance - being managed by Dr. Darnell Hypertension - fairly well controlled Obesity - Elevated body mass index of approximately 44 Chronic diastolic CHF - clinically compensated Carotid dz - Minimal carotid arterial disease on carotid u/s of 03/09/17 H/o mild pulmonary hypertension - probable related to obesity-hypoventilation syndrome due to body habitus, improved since treatment of ADOLPH. Obstructive sleep apnea syndrome - treated with C-PAP therapy. History of overactive bladder and urinary incontinence - S/p botox injection in September 2017 and Mar 2019 by her urologist in [facility] in [place]. Orthopedic - Left knee and R hip replacement. Discussion and Recomendations Pneumonia - masslike consolidation seen on CXR of 05-05 and 05-06-21 - management by Dr Darnell PAF - currently in SR with controlled rate - continue home medications including OAC for stroke prophylaxis Continue home cardiac medications Monitor on tele Adjust anti-hypertensive regimen as indicated Monitor lab closely Further recs will be based on her hospital course We would like to thank the Medical services for this consult QAMAR GONZALEZ MD FACP [facility] CCDS May 06, 2021 14:16
[2021-05-06 15:43] VITALS: BP 149/76
[2021-05-06 19:59] VITALS: BP 158/75
[2021-05-06] MEDS ORDERED: MONTELUKAST 10 MG (SINGULAIR) TAB PO SCH (21:00)
[2021-05-06] MEDS ORDERED: traZODone 50 MG (DESYREL) TAB PO SCH (21:00)
[2021-05-06 23:30] VITALS: BP 131/63
[2021-05-07 04:00] VITALS: BP 135/59
[2021-05-07 05:38] LABS: BASOPHILS % (AUTO) 0 % (0-10); EOSINOPHILS % (AUTO) 0 % (0-10); HEMATOCRIT 35 % (35-52); HEMOGLOBIN 11.7 g/dL (11.5-16.0); LYMPHOCYTES # (AUTO) 0.7 10^3/uL (1.0-4.0); LYMPHOCYTES % (AUTO) 7 % (12-44); MEAN CORPUSCULAR HEMOGLOBIN 29 pg (25-34); MEAN CORPUSCULAR HGB CONC 33 g/dL (32-36); MEAN CORPUSCULAR VOLUME 88 fL (80-99); MEAN PLATELET VOLUME 9.6 fL (9.0-12.2); MONOCYTES # (AUTO) 0.2 10^3/uL (0.0-1.0); MONOCYTES % (AUTO) 2 % (0-12); NEUTROPHILS # (AUTO) 8.9 10^3/uL (1.8-7.8); NEUTROPHILS % (AUTO) 90 % (42-75); PLATELET COUNT 183 10^3/uL (130-400)
[2021-05-07 05:49] LABS: POTASSIUM 4.2 MMOL/L (3.6-5.0)
[2021-05-07 05:52] LABS: TOTAL PROTEIN 5.7 GM/DL (6.4-8.2)
[2021-05-07 05:54] LABS: BILIRUBIN,TOTAL 0.4 MG/DL (0.1-1.0)
[2021-05-07 05:55] LABS: CREATININE SERUM 0.74 MG/DL (0.60-1.30)
[2021-05-07] MEDS ORDERED: TROUGH ORDER-PHARMACY XX NR (06:00)
[2021-05-07 06:06] LABS: VANCOMYCIN,TROUGH 13.8 UG/ML (10.0-20.0)
[2021-05-07] MEDS: CEFEPIME 1,000 MG/SWFI 10 ML IV PUSH IV SCH ×2 (06:14)
[2021-05-07] MEDS: CATHETER FLUSH 10 ML SYR IV SCH (06:14)
[2021-05-07] MEDS: VANCOMYCIN 1250 MG/NS 250 ML IVPB IV SCH ×2 (06:15)
[2021-05-07] MEDS: RT-ALBUTEROL/IPRATROPIUM 3 ML (DUONEB) VIAL INH SCH (07:21)
[2021-05-07 08:00] VITALS: BP 156/74
[2021-05-07] MEDS: methylPREDNISolone 40 MG/ML (Solu-MEDROL) VIAL IV SCH (08:37)
[2021-05-07] MEDS: APIXABAN 5 MG (ELIQUIS) TABLET PO SCH (08:37)
[2021-05-07] MEDS: lisINopril 20 MG (PRINIVIL) TABLET PO SCH (08:38)
[2021-05-07] MEDS: SERTRALINE 100 MG (ZOLOFT) TAB PO SCH (08:38)
[2021-05-07] MEDS: LORATADINE (CLARITIN) 10 MG TAB PO SCH (08:38)
[2021-05-07] MEDS: amLODIPine 10 MG (NORVASC) TAB PO SCH (08:38)
[2021-05-07] MEDS: VITAMIN D3 125 MCG (5,000 UNITS) CAPSULE PO SCH (08:39)
[2021-05-07] MEDS: ESTRADIOL 1 MG TAB (ESTRACE) PO SCH (08:39)
[2021-05-07 09:42] LABS: LYMPHOCYTES % (MANUAL) 6 %; MONOCYTES % (MANUAL) 1 %; NEUTROPHILS % (MANUAL) 93 %; RBC MORPH NORMAL
--- NOTE | 2021-05-07 09:46 | Progress Note - Cardiology ---
Cardiology SOAP Progress Note Subjective: Sitting up in bed States her breathing and cough are unchanged from yesterday No c/o CP or palpitations Objective: I&O/Vital Signs Weight (Pounds): 291 Weight (Ounces): 6.0 Weight (Calculated Kilograms): 132.623223 Constitutional: AAO x 3, well-developed, well-nourished Respiratory: No accessory muscle use, No respiratory distress; chest expansion is symmetric, chest is bilaterally symmetric, other (diminshed breath sounds) Cardiovascular: regular rate-rhythm, JVD, S1 and S2 Gastrointestional: No tender; soft, round, audible bowel sounds Extremities: no lower extremity edema bilateral Neurologic/Psychiatric: grossly intact (moves all extremities) Skin: No rash on exposed areas, No ulcerations on exposed areas Results/Procedures: Labs Microbiology 05/05/21 MRSA Screen - Final, Complete MRSA not isolated 05/05/21 Urine Culture - Final, Complete NO GROWTH 05/05/21 Blood Culture - Final, Complete No growth A/P: Assessment: Progressive dyspnea - Redemonstrated nodular, masslike consolidation in the left midlung which is unchanged per CXR of 05-06-21, managed by Dr Broderick Paroxysmal A fib and typical A flutter - first documented on 09-30-18 at [facility]). Placed on flecainide at [facility] on 09/30/18 - has had typical atrial flutter ablation by Dr Thompson on 01/30/19 - has had ILR placement by Dr Thompson n 04/06/19 - Post a-fib ablation on 05-22-2019 by . Now off flecainide - ILR interrogation of Feb 2021 showed episodes of a-fib with RVR in January - awaiting apptt at [facility] for recurrent a fib at [facility] (Dr Thompson) - OAC with Eliquis CAD - Minor coronary artery disease per cardiac catheterization of July 2006. - MPI of 01/17/15 did not show ischemia or infarction, and LVEF was 54% - Echo 12/16/18 showed LVEF 60-65%, mild MR, RVSP 25 mmHg Abnormal ECG - RBBB, chronic History of bronchial asthma - managed by PCP Hyperlipidemia - being treated and being followed by Dr. Broderick. Glucose intolerance - being managed by Dr. Broderick Hypertension - fairly well controlled Obesity - Elevated body mass index of approximately 44 Chronic diastolic CHF - clinically compensated Carotid dz - Minimal carotid arterial disease on carotid u/s of 03/09/17 H/o mild pulmonary hypertension - probable related to obesity-hypoventilation syndrome due to body habitus, improved since treatment of ADOLPH. Obstructive sleep apnea syndrome - treated with C-PAP therapy. History of overactive bladder and urinary incontinence - S/p botox injection in September 2017 and Mar 2019 by her urologist in [facility] in [place]. Orthopedic - Left knee and R hip replacement. Plan: Pneumonia - masslike consolidation seen on CXR of 05-05 and 05-06-21 - management by Dr Broderick PAF - currently in SR with controlled rate - continue home medications including OAC for stroke prophylaxis Continue home cardiac medications Monitor on tele Adjust anti-hypertensive regimen as indicated Monitor lab closely RASHAUN HORN May 07, 2021 09:46
[2021-05-07] MEDS ORDERED: DOXA1TAB2 PO (10:07)
--- NOTE | 2021-05-07 10:08 | Discharge Summary ---
Diagnosis/Chief Complaint Date of Admission May 05, 2021 at 17:11 Date of Discharge Discharge Date: May 07, 2021 Discharge Diagnosis Assessment: Left lower lobe pneumonia Fever/SIRS Atrial fibrillation with rapid ventricular response recent in need of ablation History of UTIs Diastolic heart failure Obstructive sleep apnea on CPAP Arthritis Depression Insomnia Reason Hospital Visit Chief complaint: Fever with left lower lobe pneumonia History of present illness: This is a 76-year-old white female history of atrial fibrillation and diastolic heart failure who has had several ER visits and inpatient stays the last few weeks following a recurrence of atrial fibrillation with rapid ventricular response. She has had this issue before before ablation resolve the atrial fibrillation since it appears when she is in A. fib with RVR and difficulty controlling that condition it destabilizes the rest of her body. She had an ER visit due to fever of unknown source chest x-ray normal UA normal influenza was normal so she was discharged home but seen in my clinic on Wednesday found to have findings consistent with bacterial infection so the decision was made to admit to the hospital to fully evaluate. Patient was placed on empiric antibiotics and chest x-ray revealed left lower lobe pneumonia. Currently she is feeling much better and overall grateful to be in the hospital due to new onset delirium prior to admission. Discharge Summary Discharge Physical Examination Allergies: Coded Allergies: sulfamethoxazole (Verified Allergy, Intermediate, rash, SOB, 10/23/18) trimethoprim (Verified Allergy, Intermediate, rash, SOB, 10/23/18) cephalexin (Verified Allergy, Unknown, 10/02/18) Vitals & I&Os Vital Signs Date Time Temp Pulse Resp B/P (MAP) Pulse Ox O2 Delivery O2 Flow Rate FiO2 05/07/21 11:00 36.7 63 20 156/74 93 Nasal Cannula 2.00 05/05/21 20:45 21 General Appearance: Alert, Oriented X3, Cooperative Respiratory: Clear to Auscultation Cardiovascular: Other (Irregular) Psych/Mental Status: Mental Status NL Hospital Course Was the Problem List Reviewed?: Yes CC: Pneumonia, new-onset fever subsequent to recent hospitalization HPI: Mame Archer is a 76 yo female, with a history of CAD, CHF, pulm HTN, glucose intolerance, ADOLPH, chronic RBBB and COPD w recent exacerbation, and A-fib w/ RVR, who presented for evaluation and management of new-onset febrile illness on 05/05/2021. Following recent discharge from the hospital, Mame re ports that she developed fever, chills, increasing SOB, and frequent cough. This prompted a visit to the ED; she was informed that she had an infection and was counseled to f/u with her PCP (Dr. Broderick). Mame went to see Dr. Broderick on 05/05/21 at her office d/t continuing malaise and fever, which she was previously managing with tylenol QID; upon assessment, Dr. Broderick decided to admit Mame to med/surg (room 411) for work-up and assessment. On CXR (05/05/21) there was L ollie-hilar infiltrate, suspicious for lobar pneumonia. Respiratory cultures did not isolate MRSA, so vancomycin was D/C, but she continues to recieve IV cefepime. Today, 05/07/2021, Mame is conversational and states her BID breathing treatments have been helpful. She states that her appetite is ok, and has been able to have bowel movements last night. Upon discussion with Dr. Broderick, it was determined that Mame will do well on the rehabilitation floor to prevent readmission. Mame agreed with this plan. Labs (last 24 hrs) Laboratory Tests 05/05/21 17:46: White Blood Count 10.6, Red Blood Count 4.51, Hemoglobin 13.1, Hematocrit 40, Mean Corpuscular Volume 89, Mean Corpuscular Hemoglobin 29, Mean Corpuscular Hemoglobin Concent 33, Red Cell Distribution Width 13.8, Platelet Count 194, Mean Platelet Volume 9.6, Immature Granulocyte % (Auto) 1, Neutrophils (%) (Auto) 81H, Lymphocytes (%) (Auto) 11L, Monocytes (%) (Auto) 6, Eosinophils (%) (Auto) 1, Basophils (%) (Auto) 0, Neutrophils # (Auto) 8.6H, Lymphocytes # (Auto) 1.2, Monocytes # (Auto) 0.7, Eosinophils # (Auto) 0.1, Basophils # (Auto) 0.0, Immature Granulocyte # (Auto) 0.1, Sodium Level 137, Potassium Level 4.0, Chloride Level 104, Carbon Dioxide Level 20L, Anion Gap 13, Blood Urea Nitrogen 11, Creatinine 0.79, Estimat Glomerular Filtration Rate 71, BUN/Creatinine Ratio 14, Glucose Level 131H, Lactic Acid Level 1.00, Calcium Level 9.8, Corrected Calcium 10.2H, Total Bilirubin 0.9, Aspartate Amino Transf (AST/SGOT) 48H, Alanine Aminotransferase (ALT/SGPT) 85H, Alkaline Phosphatase 192H, Total Protein 6.7, Albumin 3.5 05/05/21 18:23: Urine Color YELLOW, Urine Clarity CLEAR, Urine pH 6.0, Urine Specific [place] 1.010L, Urine Protein 1+H, Urine Glucose (UA) NEGATIVE, Urine Ketones NEGATIVE, Urine Nitrite NEGATIVE, Urine Bilirubin 1+H, Urine Urobilinogen 1.0, Urine Leukocyte Esterase TRACEH, Urine RBC (Auto) TRACE-IH, Urine RBC 0-2, Urine WBC 0-2, Urine Squamous Epithelial Cells 2-5, Urine Crystals NONE, Urine Bacteria NEGATIVE, Urine Casts NONE, Urine Mucus NEGATIVE, Urine Culture Indicated NO 05/06/21 05:36: White Blood Count 7.6, Red Blood Count 4.17, Hemoglobin 12.0, Hematocrit 37, Mean Corpuscular Volume 89, Mean Corpuscular Hemoglobin 29, Mean Corpuscular Hemoglobin Concent 33, Red Cell Distribution Width 13.4, Platelet Count 161, Mean Platelet Volume 9.6, Immature Granulocyte % (Auto) 1, Neutrophils (%) (Auto) 91H, Lymphocytes (%) (Auto) 7L, Monocytes (%) (Auto) 1, Eosinophils (%) (Auto) 0, Basophils (%) (Auto) 0, Neutrophils # (Auto) 6.8, Lymphocytes # (Auto) 0.6L, Monocytes # (Auto) 0.1, Eosinophils # (Auto) 0.0, Basophils # (Auto) 0.0, Immature Granulocyte # (Auto) 0.1, Sodium Level 137, Potassium Level 3.9, Chloride Level 105, Carbon Dioxide Level 21, Anion Gap 11, Blood Urea Nitrogen 11, Creatinine 0.68, Estimat Glomerular Filtration Rate 85, BUN/Creatinine Ratio 16, Glucose Level 210H, Calcium Level 9.1, Corrected Calcium 9.8, Total Bilirubin 0.6, Aspartate Amino Transf (AST/SGOT) 32, Alanine Aminotransferase (ALT/SGPT) 71H, Alkaline Phosphatase 177H, Total Protein 6.1L, Albumin 3.1L 05/07/21 05:23: White Blood Count 10.0, Red Blood Count 4.01, Hemoglobin 11.7, Hematocrit 35, Mean Corpuscular Volume 88, Mean Corpuscular Hemoglobin 29, Mean Corpuscular Hemoglobin Concent 33, Red Cell Distribution Width 13.1, Platelet Count 183, Mean Platelet Volume 9.6, Immature Granulocyte % (Auto) 1, Neutrophils (%) (Auto) 90H, Lymphocytes (%) (Auto) 7L, Monocytes (%) (Auto) 2, Eosinophils (%) (Auto) 0, Basophils (%) (Auto) 0, Neutrophils # (Auto) 8.9H, Lymphocytes # (Auto) 0.7L, Monocytes # (Auto) 0.2, Eosinophils # (Auto) 0.0, Basophils # (Auto) 0.0, Immature Granulocyte # (Auto) 0.1, Sodium Level 138, Potassium Level 4.2, Chloride Level 107, Carbon Dioxide Level 20L, Anion Gap 11, Blood Urea Nitrogen 19H, Creatinine 0.74, Estimat Glomerular Filtration Rate 77, BUN/Creatinine Ratio 26, Glucose Level 224H, Calcium Level 9.0, Corrected Calcium 9.8, Total Bilirubin 0.4, Aspartate Amino Transf (AST/SGOT) 20, Alanine Aminotransferase (ALT/SGPT) 56H, Alkaline Phosphatase 140H, Total Protein 5.7L, Albumin 3.0L, Neutrophils % (Manual) 93, Lymphocytes % (Manual) 6, Monocytes % (Manual) 1, Blood Morphology Comment NORMAL, Vancomycin Level Trough 13.8 Microbiology 05/05/21 MRSA Screen - Final, Complete MRSA not isolated 05/05/21 Urine Culture - Final, Complete NO GROWTH 05/05/21 Blood Culture - Preliminary, Resulted No growth Pending Labs Microbiology Date/Time Source Procedure Growth Status 05/05/21 18:46 Nasal MRSA Screen - Final MRSA not isolated Complete 05/05/21 18:23 Urine Straight Cath, In/Out Urine Culture - Final NO GROWTH Complete 05/05/21 17:55 Peripheral Lt Hand Blood Culture - Preliminary No growth Resulted 05/05/21 17:46 Peripheral Rt Hand Blood Culture - Preliminary No growth Resulted Laboratory Tests 05/05/21 17:46: White Blood Count 10.6, Red Blood Count 4.51, Hemoglobin 13.1, Hematocrit 40, Mean Corpuscular Volume 89, Mean Corpuscular Hemoglobin 29, Mean Corpuscular Hemoglobin Concent 33, Red Cell Distribution Width 13.8, Platelet Count 194, Mean Platelet Volume 9.6, Immature Granulocyte % (Auto) 1, Neutrophils (%) (Auto) 81, Lymphocytes (%) (Auto) 11, Monocytes (%) (Auto) 6, Eosinophils (%) (Auto) 1, Basophils (%) (Auto) 0, Neutrophils # (Auto) 8.6, Lymphocytes # (Auto) 1.2, Monocytes # (Auto) 0.7, Eosinophils # (Auto) 0.1, Basophils # (Auto) 0.0, Immature Granulocyte # (Auto) 0.1, Sodium Level 137, Potassium Level 4.0, Chloride Level 104, Carbon Dioxide Level 20, Anion Gap 13, Blood Urea Nitrogen 11, Creatinine 0.79, Estimat Glomerular Filtration Rate 71, BUN/Creatinine Ratio 14, Glucose Level 131, Lactic Acid Level 1.00, Calcium Level 9.8, Corrected Calcium 10.2, Total Bilirubin 0.9, Aspartate Amino Transf (AST/SGOT) 48, Alanine Aminotransferase (ALT/SGPT) 85, Alkaline Phosphatase 192, Total Protein 6.7, Albumin 3.5 05/05/21 18:23: Urine Color YELLOW, Urine Clarity CLEAR, Urine pH 6.0, Urine Specific [place] 1.010, Urine Protein 1+, Urine Glucose (UA) NEGATIVE, Urine Ketones NEGATIVE, Urine Nitrite NEGATIVE, Urine Bilirubin 1+, Urine Urobilinogen 1.0, Urine Leukocyte Esterase TRACE, Urine RBC (Auto) TRACE-I, Urine RBC 0-2, Urine WBC 0- 2, Urine Squamous Epithelial Cells 2-5, Urine Crystals NONE, Urine Bacteria NEGATIVE, Urine Casts NONE, Urine Mucus NEGATIVE, Urine Culture Indicated NO 05/06/21 05:36: White Blood Count 7.6, Red Blood Count 4.17, Hemoglobin 12.0, Hematocrit 37, Mean Corpuscular Volume 89, Mean Corpuscular Hemoglobin 29, Mean Corpuscular Hemoglobin Concent 33, Red Cell Distribution Width 13.4, Platelet Count 161, Mean Platelet Volume 9.6, Immature Granulocyte % (Auto) 1, Neutrophils (%) (Auto) 91, Lymphocytes (%) (Auto) 7, Monocytes (%) (Auto) 1, Eosinophils (%) (Auto) 0, Basophils (%) (Auto) 0, Neutrophils # (Auto) 6.8, Lymphocytes # (Auto) 0.6, Monocytes # (Auto) 0.1, Eosinophils # (Auto) 0.0, Basophils # (Auto) 0.0, Immature Granulocyte # (Auto) 0.1, Sodium Level 137, Potassium Level 3.9, Chloride Level 105, Carbon Dioxide Level 21, Anion Gap 11, Blood Urea Nitrogen 11, Creatinine 0.68, Estimat Glomerular Filtration Rate 85, BUN/Creatinine Ratio 16, Glucose Level 210, Calcium Level 9.1, Corrected Calcium 9.8, Total Bilirubin 0.6, Aspartate Amino Transf (AST/SGOT) 32, Alanine Aminotransferase (ALT/SGPT) 71, Alkaline Phosphatase 177, Total Protein 6.1, Albumin 3.1 05/07/21 05:23: White Blood Count 10.0, Red Blood Count 4.01, Hemoglobin 11.7, Hematocrit 35, Mean Corpuscular Volume 88, Mean Corpuscular Hemoglobin 29, Mean Corpuscular Hemoglobin Concent 33, Red Cell Distribution Width 13.1, Platelet Count 183, Mean Platelet Volume 9.6, Immature Granulocyte % (Auto) 1, Neutrophils (%) (Auto) 90, Lymphocytes (%) (Auto) 7, Monocytes (%) (Auto) 2, Eosinophils (%) (Auto) 0, Basophils (%) (Auto) 0, Neutrophils # (Auto) 8.9, Lymphocytes # (Auto) 0.7, Monocytes # (Auto) 0.2, Eosinophils # (Auto) 0.0, Basophils # (Auto) 0.0, Immature Granulocyte # (Auto) 0.1, Sodium Level 138, Potassium Level 4.2, Chloride Level 107, Carbon Dioxide Level 20, Anion Gap 11, Blood Urea Nitrogen 19, Creatinine 0.74, Estimat Glomerular Filtration Rate 77, BUN/Creatinine Ratio 26, Glucose Level 224, Calcium Level 9.0, Corrected Calcium 9.8, Total Bilirubin 0.4, Aspartate Amino Transf (AST/SGOT) 20, Alanine Aminotransferase (ALT/SGPT) 56, Alkaline Phosphatase 140, Total Protein 5.7, Albumin 3.0, Neutrophils % (Manual) 93, Lymphocytes % (Manual) 6, Monocytes % (Manual) 1, Blood Morphology Comment NORMAL, Vancomycin Level Trough 13.8 Discharge Home Medications: Active Scripts Active Doxazosin Mesylate 1 Mg Tablet 1 Mg PO HS 30 Days Diltiazem 24Hr ER (Diltiazem HCl) 240 Mg Cap.er.24h 240 Mg PO BID Metoprolol Succinate 25 Mg Tab.er.24h 25 Mg PO BID Iprat-Albut 0.5-3(2.5) mg/3 ml (Ipratropium/Albuterol Sulfate) 3 Ml Ampul.neb 3 Ml INH RTBID Norvasc (Amlodipine Besylate) 10 Mg Tablet 10 Mg PO DAILY Lisinopril 20 Mg Tablet 40 Mg PO DAILY Reported ALPRAZolam 0.25 Mg Tablet 0.25 Mg PO Q8H PRN Docusate Sodium 100 Mg Capsule 100 Mg PO TID PRN Potassium Chloride 10 Meq Capsule.er 20 Meq PO DAILY PRN TAKES 2 (10MEQ) CAPS Vitamin D3 (Cholecalciferol (Vitamin D3)) 125 Mcg/1 Ml Drops 125 Mcg PO DAILY Furosemide 40 Mg Tablet 40 Mg PO DAILY PRN Loratadine 10 Mg Tablet 10 Mg PO DAILY Proair Hfa (Albuterol Sulfate) 1 Puff Puff 2 Puff IH Q4H PRN Montelukast Sodium 10 Mg Tablet 10 Mg PO HS Atorvastatin Calcium 20 Mg Tablet 20 Mg PO HS Trazodone HCl 50 Mg Tablet 50 Mg PO HS Sertraline HCl 100 Mg Tablet 150 Mg PO DAILY TAKES 1 & 1/2 (100MG) TABLET Eliquis (Apixaban) 5 Mg Tablet 5 Mg PO BID Fluticasone Propionate 16 Gm [place].susp 2 Sprays NS HS PRN Estradiol Tablet (Estradiol) 0.5 Mg Tablet 0.5 Mg PO DAILY Instructions to patient/family Please see electronic discharge instructions given to patient. Diagnosis/Problems Diagnosis/Problems (1) SIRS (systemic inflammatory response syndrome) (2) Pneumonia (3) ADOLPH on CPAP Status: Chronic (4) Morbid obesity (5) Mixed hyperlipidemia (6) Persistent atrial fibrillation (7) Chronic diastolic heart failure (8) Bradycardia (9) Primary hypertension (10) Recurrent UTI Status: Chronic (11) Hyperlipidemia Status: Chronic (12) Depression Status: Chronic (13) Anxiety Status: Chronic (14) Insomnia Status: Chronic (15) Acute asthma exacerbation Status: Resolved Resolution Date/Time: 12/20/18 @ 09:57 ANAY BRODERICK DO May 07, 2021 10:08
[2021-05-07 11:00] VITALS: BP 156/74
--- NOTE | 2021-05-07 11:41 | Progress Note ---
VALARIEDAYA 05/07/21 1141: Progress Note CC: Pneumonia, new-onset fever subsequent to recent hospitalization HPI: Mame Archer is a 76 yo female, with a history of CAD, CHF, pulm HTN, glucose intolerance, ADOLPH, chronic RBBB and COPD w recent exacerbation, and A-fib w/ RVR, who presented for evaluation and management of new-onset febrile illness on 05/05/2021. Following recent discharge from the hospital, Mame reports that she developed fever, chills, increasing SOB, and frequent cough. This prompted a visit to the ED; she was informed that she had an infection and was counseled to f/u with her PCP (Dr. Broderick). Mame went to see Dr. Broderick on 05/05/21 at her office d/t continuing malaise and fever, which she was previously managing with tylenol QID; upon assessment, Dr. Broderick decided to admit Mame to med/surg (room 411) for work-up and assessment. On CXR (05/05/21) there was L ollie-hilar infiltrate, suspicious for lobar pneumonia. Respiratory c ultures did not isolate MRSA, so vancomycin was D/C, but she continues to recieve IV cefepime. Today, 05/07/2021, Mame is conversational and states her BID breathing treatments have been helpful. She states that her appetite is ok, and has been able to have bowel movements last night. Upon discussion with Dr. Broderick, it was determined that Mame will do well on the rehabilitation floor to prevent readmission. Mame agreed with this plan. Laboratory Tests 05/05/21 17:46: White Blood Count 10.6, Red Blood Count 4.51, Hemoglobin 13.1, Hematocrit 40, Mean Corpuscular Volume 89, Mean Corpuscular Hemoglobin 29, Mean Corpuscular Hemoglobin Concent 33, Red Cell Distribution Width 13.8, Platelet Count 194, Mean Platelet Volume 9.6, Immature Granulocyte % (Auto) 1, Neutrophils (%) (Auto) 81H, Lymphocytes (%) (Auto) 11L, Monocytes (%) (Auto) 6, Eosinophils (%) (Auto) 1, Basophils (%) (Auto) 0, Neutrophils # (Auto) 8.6H, Lymphocytes # (Auto) 1.2, Monocytes # (Auto) 0.7, Eosinophils # (Auto) 0.1, Basophils # (Auto) 0.0, Immature Granulocyte # (Auto) 0.1, Sodium Level 137, Potassium Level 4.0, Chloride Level 104, Carbon Dioxide Level 20L, Anion Gap 13, Blood Urea Nitrogen 11, Creatinine 0.79, Estimat Glomerular Filtration Rate 71, BUN/Creatinine Ratio 14, Glucose Level 131H, Lactic Acid Level 1.00, Calcium Level 9.8, Corrected Calcium 10.2H, Total Bilirubin 0.9, Aspartate Amino Transf (AST/SGOT) 48H, Alanine Aminotransferase (ALT/SGPT) 85H, Alkaline Phosphatase 192H, Total Protein 6.7, Albumin 3.5 05/05/21 18:23: Urine Color YELLOW, Urine Clarity CLEAR, Urine pH 6.0, Urine Specific [place] 1.010L, Urine Protein 1+H, Urine Glucose (UA) NEGATIVE, Urine Ketones NEGATIVE, Urine Nitrite NEGATIVE, Urine Bilirubin 1+H, Urine Urobilinogen 1.0, Urine Leukocyte Esterase TRACEH, Urine RBC (Auto) TRACE-IH, Urine RBC 0-2, Urine WBC 0-2, Urine Squamous Epithelial Cells 2-5, Urine Crystals NONE, Urine Bacteria NEGATIVE, Urine Casts NONE, Urine Mucus NEGATIVE, Urine Culture Indicated NO 05/06/21 05:36: White Blood Count 7.6, Red Blood Count 4.17, Hemoglobin 12.0, Hematocrit 37, Mean Corpuscular Volume 89, Mean Corpuscular Hemoglobin 29, Mean Corpuscular Hemoglobin Concent 33, Red Cell Distribution Width 13.4, Platelet Count 161, Mean Platelet Volume 9.6, Immature Granulocyte % (Auto) 1, Neutrophils (%) (Auto) 91H, Lymphocytes (%) (Auto) 7L, Monocytes (%) (Auto) 1, Eosinophils (%) (Auto) 0, Basophils (%) (Auto) 0, Neutrophils # (Auto) 6.8, Lymphocytes # (Auto) 0.6L, Monocytes # (Auto) 0.1, Eosinophils # (Auto) 0.0, Basophils # (Auto) 0.0, Immature Granulocyte # (Auto) 0.1, Sodium Level 137, Potassium Level 3.9, Chloride Level 105, Carbon Dioxide Level 21, Anion Gap 11, Blood Urea Nitrogen 11, Creatinine 0.68, Estimat Glomerular Filtration Rate 85, BUN/Creatinine Ratio 16, Glucose Level 210H, Calcium Level 9.1, Corrected Calcium 9.8, Total Bilirubin 0.6, Aspartate Amino Transf (AST/SGOT) 32, Alanine Aminotransferase (ALT/SGPT) 71H, Alkaline Phosphatase 177H, Total Protein 6.1L, Albumin 3.1L 05/07/21 05:23: White Blood Count 10.0, Red Blood Count 4.01, Hemoglobin 11.7, Hematocrit 35, Me an Corpuscular Volume 88, Mean Corpuscular Hemoglobin 29, Mean Corpuscular Hemoglobin Concent 33, Red Cell Distribution Width 13.1, Platelet Count 183, Mean Platelet Volume 9.6, Immature Granulocyte % (Auto) 1, Neutrophils (%) (Auto) 90H, Lymphocytes (%) (Auto) 7L, Monocytes (%) (Auto) 2, Eosinophils (%) (Auto) 0, Basophils (%) (Auto) 0, Neutrophils # (Auto) 8.9H, Lymphocytes # (Au to) 0.7L, Monocytes # (Auto) 0.2, Eosinophils # (Auto) 0.0, Basophils # (Auto) 0.0, Immature Granulocyte # (Auto) 0.1, Sodium Level 138, Potassium Level 4.2, Chloride Level 107, Carbon Dioxide Level 20L, Anion Gap 11, Blood Urea Nitrogen 19H, Creatinine 0.74, Estimat Glomerular Filtration Rate 77, BUN/Creatinine Ratio 26, Glucose Level 224H, Calcium Level 9.0, Corrected Calcium 9.8, Total Bilirubin 0.4, Aspartate Amino Transf (AST/SGOT) 20, Alanine Aminotransferase (ALT/SGPT) 56H, Alkaline Phosphatase 140H, Total Protein 5.7L, Albumin 3.0L, Neutrophils % (Manual) 93, Lymphocytes % (Manual) 6, Monocytes % (Manual) 1, Blood Morphology Comment NORMAL, Vancomycin Level Trough 13.8 Microbiology 05/05/21 MRSA Screen - Final, Complete MRSA not isolated 05/05/21 Urine Culture - Preliminary, Resulted Culture In Progress 05/05/21 Blood Culture - Preliminary, Resulted No growth VS - Last 72 Hours, by Label 05/05/21 05/05/21 05/05/21 05/05/21 17:51 17:56 19:46 20:00 Temp 37.6 38.5 Pulse 79 73 74 Resp 22 22 B/P (MAP) 128/70 (89) 185/79 (114) Pulse Ox 91 96 O2 Delivery Room Air Room Air 05/05/21 05/05/21 05/05/21 05/05/21 20:00 20:45 21:11 23:35 Temp 37.6 37.2 Pulse 79 85 Resp 17 B/P (MAP) 125/64 (84) Pulse Ox 91 96 94 O2 Delivery Nasal Cannula Nasal Cannula O2 Flow Rate 2.00 2.00 FiO2 21 05/06/21 05/06/21 05/06/21 05/06/21 01:00 04:03 07:26 07:29 Temp 35.6 35.8 Pulse 73 63 63 Resp 18 18 B/P (MAP) 126/67 (86) 164/78 (106) Pulse Ox 93 96 96 O2 Delivery Nasal Cannula O2 Flow Rate 2.00 05/06/21 05/06/21 05/06/21 05/06/21 07:50 08:00 11:25 13:00 Temp 36.6 Pulse 74 70 66 Resp 18 B/P (MAP) 150/76 (100) Pulse Ox 96 O2 Delivery Nasal Cannula O2 Flow Rate 2.00 05/06/21 05/06/21 05/06/21 05/06/21 15:43 19:00 19:59 20:00 Temp 35.6 36.7 Pulse 73 66 77 Resp 20 20 B/P (MAP) 149/76 (100) 158/75 (102) Pulse Ox 95 96 O2 Delivery Nasal Cannula Nasal Cannula Nasal Cannula O2 Flow Rate 2.00 2.00 2.00 05/06/21 05/06/21 05/07/21 05/07/21 21:20 23:30 01:05 04:00 Temp 36.4 36.0 Pulse 50 58 65 Resp 18 20 B/P (MAP) 131/63 (85) 135/59 (84) Pulse Ox 96 94 93 O2 Delivery Nasal Cannula NIV CPAP NIV CPAP O2 Flow Rate 2.00 05/07/21 05/07/21 05/07/21 05/07/21 07:00 07:21 08:00 08:00 Temp 36.7 Pulse 54 63 Resp 20 B/P (MAP) 156/74 (101) Pulse Ox 93 93 93 O2 Delivery Nasal Cannula NIV CPAP Nasal Cannula O2 Flow Rate 2.00 2.00 10/13/21 11:00 Temp 36.7 Pulse 63 Resp 20 B/P (MAP) 156/74 Pulse Ox 93 O2 Delivery Nasal Cannula O2 Flow Rate 2.00 BREANNA BRODERICK DO 05/08/21 0502: Supervisory-Addendum Brief Verification & Attestation Participated in pt care: history, MDM, physical Personally performed: exam, history, MDM, supervision of care Care discussed with: Medical Student Procedures: n/a Results interpretation: Verified all documentation Verification and Attestation of Medical Student E/M Service A medical student performed and documented this service in my presence. I reviewed and verified all information documented by the medical student and made modifications to such information, when appropriate. I personally performed the physical exam and medical decision making. Breanna Broderick, May 08, 2021,05:02 DAYA SHEPPARD May 07, 2021 11:41 BREANNA BRODERICK DO May 08, 2021 05:02
--- NOTE | 2021-05-07 13:21 | Progress Note - Cardiology ---
Cardiology SOAP Progress Note Subjective: Malaise and weakness are improving No cp or palp or syncope No n/v/d No focal weakness Shortness of breath with exertion is present Objective: I&O/Vital Signs 05/07/21 05/07/21 05/07/21 05/07/21 04:00 07:00 07:21 08:00 Temp 36.0 36.7 Pulse 65 54 63 Resp 20 20 B/P (MAP) 135/59 (84) 156/74 (101) Pulse Ox 93 93 93 O2 Delivery NIV CPAP Nasal Cannula NIV CPAP O2 Flow Rate 2.00 05/07/21 05/07/21 08:00 11:00 Temp 36.7 Pulse 63 Resp 20 B/P (MAP) 156/74 Pulse Ox 93 93 O2 Delivery Nasal Cannula Nasal Cannula O2 Flow Rate 2.00 2.00 05/07/21 00:00 Intake Total 1425 ml Output Total 700 ml Balance 725 ml Weight (Pounds): 291 Weight (Ounces): 6.0 Weight (Calculated Kilograms): [id number] Constitutional: AAO x 3, well-developed, well-nourished Respiratory: No accessory muscle use, No respiratory distress; chest expansion is symmetric, chest is bilaterally symmetric, other (diminshed breath sounds) Cardiovascular: regular rate-rhythm, JVD, S1 and S2 Gastrointestional: No tender; soft, round, audible bowel sounds Extremities: no lower extremity edema bilateral Neurologic/Psychiatric: grossly intact (moves all extremities) Skin: No rash on exposed areas, No ulcerations on exposed areas Results/Procedures: Labs Laboratory Tests 05/07/21 05:23: White Blood Count 10.0, Red Blood Count 4.01, Hemoglobin 11.7, Hematocrit 35, Mean Corpuscular Volume 88, Mean Corpuscular Hemoglobin 29, Mean Corpuscular Hemoglobin Concent 33, Red Cell Distribution Width 13.1, Platelet Count 183, Mean Platelet Volume 9.6, Immature Granulocyte % (Auto) 1, Neutrophils (%) (Auto) 90H, Lymphocytes (%) (Auto) 7L, Monocytes (%) (Auto) 2, Eosinophils (%) (Auto) 0, Basophils (%) (Auto) 0, Neutrophils # (Auto) 8.9H, Lymphocytes # (Auto) 0.7L, Monocytes # (Auto) 0.2, Eosinophils # (Auto) 0.0, Basophils # (Auto) 0.0, Immature Granulocyte # (Auto) 0.1, Neutrophils % (Manual) 93, Lympho cytes % (Manual) 6, Monocytes % (Manual) 1, Blood Morphology Comment NORMAL, Sodium Level 138, Potassium Level 4.2, Chloride Level 107, Carbon Dioxide Level 20L, Anion Gap 11, Blood Urea Nitrogen 19H, Creatinine 0.74, Estimat Glomerular Filtration Rate 77, BUN/Creatinine Ratio 26, Glucose Level 224H, Calcium Level 9.0, Corrected Calcium 9.8, Total Bilirubin 0.4, Aspartate Amino Transf (AST/SGOT) 20, Alanine Aminotransferase (ALT/SGPT) 56H, Alkaline Phosphatase 140H, Total Protein 5.7L, Albumin 3.0L, Vancomycin Level Trough 13.8 Microbiology 05/05/21 MRSA Screen - Final, Complete MRSA not isolated 05/05/21 Urine Culture - Final, Complete NO GROWTH 05/05/21 Blood Culture - Preliminary, Resulted No growth Laboratory Tests 05/05/21 17:46 05/06/21 05:36 05/07/21 05:23 A/P: Assessment: Progressive dyspnea - Redemonstrated nodular, masslike consolidation in the left midlung which is unchanged per CXR of 05-06-21, managed by Dr Broderick Paroxysmal A fib and typical A flutter - first documented on 09-30-18 at [facility]). Placed on flecainide at [facility] on 09/30/18 - has had typical atrial flutter ablation by Dr Thompson on 01/30/19 - has had ILR placement by Dr Thompson n 04/06/19 - Post a-fib ablation on 05-22-2019 by . Now off flecainide - ILR interrogation of Feb 2021 showed episodes of a-fib with RVR in January - awaiting apptt at [facility] for recurrent a fib at [facility] (Dr Thompson) - OAC with Eliquis CAD - Minor coronary artery disease per cardiac catheterization of July 2006. - MPI of 01/17/15 did not show ischemia or infarction, and LVEF was 54% - Echo 12/16/18 showed LVEF 60-65%, mild MR, RVSP 25 mmHg Abnormal ECG - RBBB, chronic History of bronchial asthma - managed by PCP Hyperlipidemia - being treated and being followed by Dr. Broderick. Glucose intolerance - being managed by Dr. Broderick Hypertension - fairly well controlled Obesity - Elevated body mass index of approximately 44 Chronic diastolic CHF - clinically compensated Carotid dz - Minimal carotid arterial disease on carotid u/s of 03/09/17 H/o mild pulmonary hypertension - probable related to obesity-hypoventilation syndrome due to body habitus, improved since treatment of ADOLPH. Obstructive sleep apnea syndrome - treated with C-PAP therapy. History of overactive bladder and urinary incontinence - S/p botox injection in September 2017 and Mar 2019 by her urologist in [facility] in [place]. Orthopedic - Left knee and R hip replacement. Plan: Pneumonia - masslike consolidation seen on CXR of 05-05 and 05-06-21 - management by Dr rBoderick PAF - currently in SR with controlled rate - continue home medications including OAC for stroke prophylaxis Adjust anti-hypertensive regimen as indicated Monitor lab closely QAMAR GONZALEZ MD FACP [facility] May 07, 2021 13:21
[2021-05-07] MEDS ORDERED: doxAzosin 1 MG (CARDURA) TAB PO SCH (21:00)
[2021-05-10] MEDS ORDERED: PRED10TA22 PO (13:35)
[2021-05-10] MEDS ORDERED: CEFD300C3 PO (13:35)
== END 2021-05-07 10:06 ==
LOC: UNDOADMOB 17:11 → 4TH 17:11 → UNDODISOB 05-07 11:00
PROVIDERS: ADMIT Internal Medicine; ATTEND Internal Medicine
DX: J18.1 Lobar pneumonia, unspecified organism (principal); I25.10 Atherosclerotic heart disease of native coronary artery without angina pectoris; I11.0 Hypertensive heart disease with heart failure; I50.32 Chronic diastolic (congestive) heart failure; I27.20 Pulmonary hypertension, unspecified; G47.33 Obstructive sleep apnea (adult) (pediatric); I45.19 Other right bundle-branch block; J44.1 Chronic obstructive pulmonary disease with (acute) exacerbation; I48.20 Chronic atrial fibrillation, unspecified; E78.00 Pure hypercholesterolemia, unspecified; K21.9 Gastro-esophageal reflux disease without esophagitis; M19.90 Unspecified osteoarthritis, unspecified site; G89.29 Other chronic pain; M54.9 Dorsalgia, unspecified; E11.36 Type 2 diabetes mellitus with diabetic cataract; F32.9 Major depressive disorder, single episode, unspecified; F41.9 Anxiety disorder, unspecified; E78.2 Mixed hyperlipidemia; I48.3 Typical atrial flutter; I48.0 Paroxysmal atrial fibrillation; E66.9 Obesity, unspecified; Z79.01 Long term (current) use of anticoagulants; Z79.899 Other long term (current) drug therapy; Z68.41 Body mass index [BMI] 40.0-44.9, adult
CPT/HCPCS: 36410; 71045 ×2; 76937; 80053 ×3; 80202; 81000; 83605; 85007; 85025 ×3; 85027; 87040; 87081; 87088; 94640 ×4; 94760 ×3; C1751; G0378; G0379; 36415

== ENCOUNTER 2021-05-07 09:51 | Inpatient (IN) | payer MEDICARE ==
[~2021-05-07] VITALS: Ht 170.2 cm; Wt 126.0 kg
[2021-05-07] MEDS ORDERED: DOXA1TAB2 PO (10:07)
[2021-05-07] MEDS ORDERED: ALPRAZolam 0.25 MG (XANAX) TAB PO PRN (10:30)
[2021-05-07] MEDS ORDERED: guaiFENesin/CODEINE (ROBITUSSIN AC) 10ML UDC PO PRN (10:30)
[2021-05-07] MEDS ORDERED: LACTULOSE SYRUP 10GM/15ML (ENULOSE) 30ML UDC PO PRN (10:30)
[2021-05-07] MEDS ORDERED: LOPERAMIDE 2 MG (IMODIUM) TABLET PO PRN (10:30)
[2021-05-07] MEDS ORDERED: ONDANSETRON 4 MG (ZOFRAN) ORAL DISSOLVE TAB PO PRN (10:30)
[2021-05-07] MEDS ORDERED: CALCIUM CARBONATE 500 MG (TUMS) TAB.CHEW PO PRN (10:30)
[2021-05-07] MEDS ORDERED: DOCUSATE SODIUM 100 MG (COLACE) CAP PO PRN ×2 (10:30→18:15)
[2021-05-07] MEDS ORDERED: diphenhydrAMINE 25 MG TAB (BENADRYL) PO PRN (10:30)
[2021-05-07] MEDS ORDERED: FLEET ENEMA ADULT 1 EA BTL PR PRN (10:30)
[2021-05-07] MEDS ORDERED: BISACODYL 10 MG SUPP (DULCOLAX) PR PRN (10:30)
[2021-05-07] MEDS ORDERED: MELATONIN 3 MG TABLET PO PRN (10:30)
--- NOTE | 2021-05-07 11:25 | Occupational Therapy Eval ---
OT Evaluation-General/PLF Medical Diagnosis Admission Date 2020 Medical Diagnosis: COPD exacerbation Onset Date: May 05, 2021 Therapy Diagnosis Therapy Diagnosis: decreased ADL stauts, weakness Height/Weight Height (Feet): 5 Height (Inches): 7.00 Weight (Pounds): 291 Weight (Ounces): 6.0 Precautions Precautions/Isolations: Fall Prevention, Standard Precautions Referral Physician: Meggan Referral Reason: Evaluation/Treatment Medical History Pertinent Medical History: Atrial Fib, DM, HTN Additional Medical History CAD, CHF, pulmonary HTN, glucose intolerance, ADOLPH, chronic RBBB, COPD with recent exacerbation, AFib with RVR, Asthma, GERD Current History Admit from PCP for work up and assessment, CXR 05/05 shoes L ollie-hilar infiltrate, suspicious for lobar PNA Social History Home: Single Level Current Living Status: Alone Entry Into Home: Stairs With Railing Steps Into Home: 3 2 steps up to sun room with rail, 1 step into house. ADL-Prior Level of Function SCALE: Activities may be completed with or without assistive devices. 8-[id number]-[id number] completes the activity by him/herself with no assistance from a helper. 5-Set-up or Clean-up Assistance-helper sets up or cleans up; patient completes activity. [place] assists only prior to or following the activity. 4-Supervision or Touching Assistance-helper provides verbal cues and/or touching/steadying and/or contact guard assistance as patient completes activity. Assistance may be provided throughout the activity or intermittently. 3-Partial/Moderate Assistance-helper does LESS THAN HALF the effort. [place] lifts, holds or supports trunk or limbs, but provides less than half the effort. 2-Substantial/Maximal Assistance-helper does MORE THAN HALF the effort. [place] lifts or holds trunk or limbs and provides more than half the effort. 4-Rxskhsnrz-qkyadf does ALL the effort. Patient does none of the effort to complete the activity. Or, the assistance of 2 or more helpers is required for the patient to complete the activity. If activity was not attempted, code reason: 7-Patient Refused. 9-Not Applicable-not attempted and the patient did not perform the activity b efore the current illness, exacerbation or injury. 10-Not Attempted due to Environmental Limitations-(lack of equipment, weather restraints, etc.). 88-Not Attempted due to Medical Conditions or Safety Concerns. ADL PLOF Comments Pt reports IND with ADLs at PLOF, uses a cane as needed for functional mobility. She wears O2 at night and sometimes during the day with exertion. She has a walk in shower with a small threshold and owns a SC although she doesn't typically use SC Self Care: Independent Functional Cognition: Independent DME/Equipment: Bath Chair, Shower OT Current Status Subjective Pt agreeable to OT evaluation. Mental Status/Objective Patient Orientation: Person, Place, Time, Situation Attachments: Oxygen (2L) Current Glasses/Contacts: Yes Hand Dominance: Right Upper Extremity ROM WFL, BUE shoulder flexion to approx 130 degrees Upper Extremity Coordination WFL Upper Extremity Sensation WFL Upper Extremity Strength grossly 3+/5 BUEs. Pt has slight difficulty following instructions for testing. ADL-Treatment Eating (QC): 7 Oral Hygiene (QC): 7 Shower/Bathe Self (QC): 7 Upper Body Dressing (QC): 7 Lower Body Dressing (QC): 7 On/Off Footwear (QC): 7 Toileting Hygiene (QC): 7 Other Treatments Pt in chair agreeable to OT evaluation. OT educated pt on purpose and benefit of OT, she verbalized understanding. Pt provided information about PLOF and home set up, and participated in UE screen. MAGAÑA present to take over tx, all needs met with pt. Education OT Patient Education: Correct positioning, Modified ADL techniques, Progress toward Goal/Update tx plan, Purpose of tx/functional activities, Rehab process, Safety issues, Transfer techniques Teaching Recipient: Patient Teaching Methods: Discussion Response to Teaching: Verbalize Understanding OT Short Term Goals Short Term Goals Time Frame: May 14, 2021 Oral hygiene: 5 Toileting hygiene: 5 Shower/bathe self: 5 Upper body dressin Lower body dressin OT [facility] Goals Research Study Assistant Goals Time Frame: May 23, 2021 Eating (QC): 6 Oral Hygiene (QC): 6 Toileting Hygiene (QC): 6 Shower/Bathe Self (QC): 6 Upper Body Dressing (QC): 6 Lower Body Dressing (QC): 6 On/Off Footwear (QC): 6 Additional Goals: 1-Demonstrate ADL Tasks, 2-Verbalize Understanding, 3- ImproveStrength/Sesar 1=Demonstrate adherence to instructed precautions during ADL tasks. 2=Patient will verbalize/demonstrate understanding of assistive devices/modifications for ADL. 3=Patient will improve strength/tolerance for activity to enable patient to perform ADL's. OT Education/Plan Problem List/Assessment Assessment: Decreased Activ Tolerance, Decreased UE Strength, Impaired Funct Balance, Impaired I ADL's, Impaired Self-Care Skills Discharge Recommendations Plan/Recommendations: Continue POC Treatment Plan/Plan of Care Patient would benefit from OT for education, treatment and training to promote independence in ADL's, mobility, safety and/or upper extremity function for ADL's. Plan of Care: ADL Retraining, Functional Mobility, Group Exercise/Act as Ind, UE Funct Exercise/Act Treatment Duration: May 23, 2021 Frequency: At least 5 of 7 days/Wk (IRF) Estimated Hrs Per Day: 1.5 hours per day Rehab Potential: Good Time/GCodes Start Time: 11:05 Stop Time: 11:15 Total Time Billed (hr/min): 10 Billed Treatment Time 1, RAMÓN ALLEN OT May 07, 2021 11:25
--- NOTE | 2021-05-07 11:48 | Progress Note ---
BRAVOJOSEDAYA 05/07/21 1148: Progress Note CC: Lobar Pneumonia, Generalized weakness following multiple hospital visits HPI: Mame Archer is a 76 yo female, with a history of CAD, CHF, pulm HTN, glucose intolerance, ADOLPH, chronic RBBB and COPD w recent exacerbation, and A-fib w/ RVR, who presents for evaluation and management of lobar pneumonia and weakness. Following recent discharge from the hospital, Mame reports that she developed fever, chills, increasing SOB, and frequent cough. This prompted a visit to the ED; she was informed that she had an infection and was counseled to f/u with her PCP (Dr. Darnell). Mame went to see Dr. Darnell on 05/05/21 at her office d/t continuing malaise and fever, which she was previously managing with tylenol QID; upon assessment, Dr. Darnell decided to admit Mame to med/surg (room 411) for work-up and assessment. On CXR (05/05/21) there was L ollie-hilar infiltrate, suspicious for lobar pneumonia. Respiratory cultures did not isolate MRSA, so vancomycin was D/C, but she continues to recieve IV cefepime. Today, 05/07/2021, Mame is conversational and states her BID breathing treatments have been helpful. She states that her appetite is ok, and has been able to have bowel movements last night. Upon discussion with Dr. Darnell, it was determined that Mame will do well on the rehabilitation floor to prevent readmission. Mame agreed with this plan and understands that episodes of a-fib seem to destabilize her, and that rehab and continued abx will prevent another hospitalization. 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 History: Menopausal Sexually Transmitted Disease: No Bladder Infection Gastroesophageal Reflux Arthritis, Chronic Back Pain Diabetes, Non-Insulin dep Cataract Loss of Vision: Bilateral Hearing Impairment: Denies Anxiety, Depression Blood Disorders: No Adverse Reaction/Blood Tranf: No ALLERGIES: Sulfamethoxazole (Verified Allergy, Intermediate, rash, SOB, 10/23/18) Trimethoprim (Verified Allergy, Intermediate, rash, SOB, 10/23/18) Cephalexin (Verified Allergy, Unknown, 3/10/19) MEDS Item Value Date Time Vancomycin Level Trough 13.8 UG/ML 05/07/21 0523 Senna 1 ea 05/07/21 2100 (Senokot S BID/PO Tablet) Polyethylene 17 gm 05/07/21 2100 Glycol BID/PO (Miralax 17 Gm Packet) Ondansetron HCl 4 mg 05/07/21 1030 (Zofran Oral Q6H PRN/PO Dissolve Tablet) Melatonin 3 mg 05/07/21 1030 (Melatonin HS PRN/PO Tablet) Docusate Sodium 100 mg 05/07/21 2100 (Colace Capsule) BID/PO Loperamide HCl 2 mg 05/07/21 1030 (Imodium Tablet) PRN PRN/PO Guaifenesin/ 10 ml 05/07/21 1030 Codeine Phosphate Q4H PRN/PO (Robitussin Ac (Codeine) Syrup) Sodium 1 ea 05/07/21 1030 Biphosphate/ BID PRN/ID Sodium Phosphate (Fleet Enema Adult) Lactulose 10 gm 05/07/21 1030 (Enulose Oral BID PRN/PO Solution) Bisacodyl 10 mg 05/07/21 1030 (Dulcolax DAILY PRN/ID Suppository) Docusate Sodium 100 mg 05/07/21 1030 (Colace Capsule) BID PRN/PO Diphenhydramine 25 mg 05/07/21 1030 HCl Q6H PRN/PO (Benadryl Tablet) Calcium Carbonate 500 mg 05/07/21 1030 (Antacid TID PRN/PO Chewable Tablet) Alprazolam 0.25 mg 05/07/21 1030 (Xanax Tablet) Q8H PRN/PO ROS Constitutional: see HPI, fever, malaise, weakness Respiratory: see HPI, cough, phlegm Cardiovascular: see HPI Psychiatric/Neurological: No Symptoms Reported, Other (Mild episodes of delirium/disorientation d/t penumonia) Vitals 05/05/21 05/07/21 20:45 11:00 Temp 36.7 Pulse 63 Resp 20 B/P (MAP) 156/74 Pulse Ox 93 O2 Delivery Nasal Cannula O2 Flow Rate 2.00 FiO2 21 PE: Height, Weight, BMI Height: 5'7.00" Weight: 291lbs. 6.0oz. 132.269651dx; 44.87 BMI Method:Stated General Appearance: No Apparent Distress, WD/WN, Mild Distress HEENT: PERRL/EOMI Respiratory: Chest Non Tender, Wheezing present, No Accessory Muscle Use, No Respiratory Distress Cardiovascular: Regular Rate, Rhythm, No Edema, No Gallop Neurologic/Psychiatric: Alert, Oriented x3, Normal Mood/Affect Skin: Normal Color, Warm/Dry Laboratory Tests 05/07/21 05:23: White Blood Count 10.0, Red Blood Count 4.01, Hemoglobin 11.7, Hematocrit 35, Mean Corpuscular Volume 88, Mean Corpuscular Hemoglobin 29, Mean Corpuscular Hemoglobin Concent 33, Red Cell Distribution Width 13.1, Platelet Count 183, Mean Platelet Volume 9.6, Immature Granulocyte % (Auto) 1, Neutrophils (%) (Auto) 90H, Lymphocytes (%) (Auto) 7L, Monocytes (%) (Auto) 2, Eosinophils (%) (Auto) 0, Basophils (%) (Auto) 0, Neutrophils # (Auto) 8.9H, Lymphocytes # (Auto) 0.7L, Monocytes # (Auto) 0.2, Eosinophils # (Auto) 0.0, Basophils # (Auto) 0.0, Immature Granulocyte # (Auto) 0.1, Neutrophils % (Manual) 93, Lympho cytes % (Manual) 6, Monocytes % (Manual) 1, Blood Morphology Comment NORMAL, Sodium Level 138, Potassium Level 4.2, Chloride Level 107, Carbon Dioxide Level 20L, Anion Gap 11, Blood Urea Nitrogen 19H, Creatinine 0.74, Estimat Glomerular Filtration Rate 77, BUN/Creatinine Ratio 26, Glucose Level 224H, Calcium Level 9.0, Corrected Calcium 9.8, Total Bilirubin 0.4, Aspartate Amino Transf (AST/SGOT) 20, Alanine Aminotransferase (ALT/SGPT) 56H, Alkaline Phosphatase 140H, Total Protein 5.7L, Albumin 3.0L, Vancomycin Level Trough 13.8 Microbiology 05/05/21 MRSA Screen - Final, Complete MRSA not isolated 05/05/21 Urine Culture - Preliminary, Resulted Culture In Progress 05/05/21 Blood Culture - Preliminary, Resulted No growth Assessment/Plan Lobar Pneumonia, general weakness Redemonstrated nodular masslike consolidation in the left midlung which is unchanged per CXR of 05-06-21 Continue IV vancomycin and cefepime Monitor vitals (BP, HR) PT/OT to evaluate and assess for post-illness debility/weakness Paroxysmal A fib and typical A flutter First documented on 09-30-18 at [facility]). Placed on flecainide at [facility] on 09/30/18 Has had typical atrial flutter ablation by Dr Thompson on 01/30/19 Has had ILR placement by Dr Thompson n 04/06/19 Post a-fib ablation on 05-22-2019 by . Now off flecainide ILR interrogation of Feb 2021 showed episodes of a-fib with RVR in January Awaiting apptt at [facility] for recurrent a fib at [facility] (Dr Thompson) OAC with Eliquis CAD Minor coronary artery disease per cardiac catheterization of July 2006. MPI of 01/17/15 did not show ischemia or infarction, and LVEF was 54% Echo 12/16/18 showed LVEF 60-65%, mild MR, RVSP 25 mmHg Abnormal ECG RBBB, chronic History of bronchial asthma Managed by PCP Hyperlipidemia Being treated and being followed by Dr. Darnell. Glucose intolerance Managed by Dr. Darenll Hypertension Fairly well controlled Currently mildly elevated Obesity Elevated body mass index of approximately 44 Chronic diastolic CHF Clinically compensated Obstructive sleep apnea syndrome - treated with C-PAP therapy. History of overactive bladder and urinary incontinence - S/p botox injection in September 2017 and Mar 2019 by her urologist in [facility] in [place]. Orthopedic - Left knee and R hip replacement. BREANNA DARNELL DO 05/08/21 0503: Supervisory-Addendum Brief Verification & Attestation Participated in pt care: history, MDM, physical Personally performed: exam, history, MDM, supervision of care Care discussed with: Medical Student Procedures: n/a Results interpretation: Verified all documentation Verification and Attestation of Medical Student E/M Service A medical student performed and documented this service in my presence. I reviewed and verified all information documented by the medical student and made modifications to such information, when appropriate. I personally performed the physical exam and medical decision making. Breanna Darnell, May 08, 2021,05:03 DAYA SHEPPARD May 07, 2021 11:48 BREANNA DARNELL DO May 08, 2021 05:03
[2021-05-07 12:00] VITALS: BP 148/80
--- NOTE | 2021-05-07 12:41 | Occupational Ther Daily Note ---
OT Current Status-Daily Note Subjective Pt alert, MAGAÑA took over OT treatment. Pt agreed to therapy. No c/o pain reported. Mental Status/Objective Patient Orientation: Person, Place, Time, Situation Attachments: IV, Oxygen, Telemetry ADL-Treatment Co-treat with PT ([id number]), 2 clinicians required due to decrease in functional mobility, activity tolerance, and safety. Pt agreed to shower. Pt ambulated to shower bench using FWW with supervision. Pt doffed gown independently while sitting at shower bench. Sit-stand using grab bars to doff brief with supervision. Pt cleansed/dried UB, LB, chest, abdomen, ollie parts, and buttocks with supervision due to decrease strength. Pt required shower bench, grab bars, and hand held shower head to complete shower safely due to decrease standing and activity tolerance. After shower pt transferred to chair with supervision. After set up, pt donned shirt independently. Pt able to thread B STACY through LB dressing. Pt sit-stand with supervision using grab bars to hike LB dressing. Pt brushed hair while standing at sink with supervision due to decrease dynamic standing balance. Pt ambulated back to room using FWW and oglesby sferred to chair with supervision. After therapy, pt sitting in chair. Call light in reach. All needs met. Therapy Code Descriptions/Definitions Functional [place] Measure: 0=Not Assessed/NA 4=Minimal Assistance 1=Total Assistance 5=Supervision or Setup 2=Maximal Assistance 6=Modified [place] 3=Moderate Assistance 7=Complete IndependenceSCALE: Activities may be completed with or without assistive devices. 3-Jipbigrmib-lpmpnve completes the activity by him/herself with no assistance from a helper. 5-Set-up or Clean-up Assistance-helper sets up or cleans up; patient completes activity. Hiram assists only prior to or following the activity. 4-Supervision or Touching Assistance-helper provides verbal cues and/or touching/steadying and/or contact guard assistance as patient completes activity. Assistance may be provided throughout the activity or intermittently. 3-Partial/Moderate Assistance-helper does LESS THAN HALF the effort. Hiram lifts, holds or supports trunk or limbs, but provides less than half the effort. 2-Substantial/Maximal Assistance-helper does MORE THAN HALF the effort. Hiram lifts or holds trunk or limbs and provides more than half the effort. 0-Nqcqiyxxh-[id number] does ALL the effort. Patient does none of the effort to complete the activity. Or, the assistance of 2 or more helpers is required for the patient to complete the activity. If activity was not attempted, code reason: 7-Patient Refused. 9-Not Applicable-not attempted and the patient did not perform the activity before the current illness, exacerbation or injury. 10-Not Attempted due to Environmental Limitations-(lack of equipment, weather restraints, etc.). 88-Not Attempted due to Medical Conditions or Safety Concerns. Eating (QC): 6 Oral Hygiene (QC): 7 Shower/Bathe Self (QC): 4 Upper Body Dressing (QC): 5 Lower Body Dressing (QC): 4 On/Off Footwear: 4 Toileting Hygiene (QC): 4 Education OT Patient Education: Correct positioning, Energy conservation, Modified ADL techniques, Progress toward Goal/Update tx plan, Purpose of tx/functional activities, Safety issues, Transfer techniques Teaching Recipient: Patient Teaching Methods: Discussion Response to Teaching: Verbalize Understanding OT Short Term Goals Short Term Goals Time Frame: May 14, 2021 Oral hygiene: 5 Toileting hygiene: 5 Shower/bathe self: 5 Upper body dressin Lower body dressin OT Senior Care Goals Sap Pi Developer Goals Time Frame: May 23, 2021 Eating (QC): 6 Oral Hygiene (QC): 6 Toileting Hygiene (QC): 6 Shower/Bathe Self (QC): 6 Upper Body Dressing (QC): 6 Lower Body Dressing (QC): 6 On/Off Footwear (QC): 6 Additional Goals: 1-Demonstrate ADL Tasks, 2-Verbalize Understanding, 3- ImproveStrength/Sesar 1=Demonstrate adherence to instructed precautions during ADL tasks. 2=Patient will verbalize/demonstrate understanding of assistive devices/m odifications for ADL. 3=Patient will improve strength/tolerance for activity to enable patient to perform ADL's. OT Education/Plan Problem List/Assessment Assessment: Decreased Activ Tolerance, Decreased UE Strength, Impaired Self- Care Skills Discharge Recommendations Plan/Recommendations: Continue POC Treatment Plan/Plan of Care Patient would benefit from OT for education, treatment and training to promote independence in ADL's, mobility, safety and/or upper extremity function for ADL's. Plan of Care: ADL Retraining, Functional Mobility, Group Exercise/Act as Ind, UE Funct Exercise/Act Treatment Duration: May 23, 2021 Frequency: At least 5 of 7 days/Wk (IRF) Estimated Hrs Per Day: 1.5 hours per day Rehab Potential: Good Time/GCodes Start Time: 11:15 Stop Time: 12:00 Total Time Billed (hr/min): 45 Billed Treatment Time 1 visit- ADL 3 (45 min) Co-treat with PT [id number] SHARONA TERAN May 07, 2021 12:41
--- NOTE | 2021-05-07 12:51 | Physical Therapy Evaluation ---
PT Evaluation-General Medical Diagnosis Admission Date May 07, 2021 at 11:11 Medical Diagnosis: COPD exacerbation Onset Date: May 05, 2021 Therapy Diagnosis Therapy Diagnosis: impaired mobility, strength, endurance Height/Weight Height (Feet): 5 Height (Inches): 7.00 Weight (Pounds): 291 Weight (Ounces): 6.0 Precautions Precautions/Isolations: Fall Prevention, Standard Precautions Referral Physician: Breanna Broderick DO Reason for Referral: Evaluation/Treatment Medical History Pertinent Medical History: Atrial Fib, DM, HTN Reviewed History: Yes Social History Home: Single Level Current Living Status: Alone Entry Into Home: Stairs With Railing PT Steps Into Home: 3 Prior Prior Level of Function SCALE: Activities may be completed with or without assistive devices. 1-Cilnowxyaz-lkxxnsu completes the activity by him/herself with no assistance from a helper. 5-Set-up or Clean-up Assistance-helper sets up or cleans up; patient completes activity. [place] assists only prior to or following the activity. 4-Supervision or Touching Assistance-helper provides verbal cues and/or touching/steadying and/or contact guard assistance as patient completes activity. Assistance may be provided throughout the activity or intermittently. 3-Partial/Moderate Assistance-helper does LESS THAN HALF the effort. [place] lifts, holds or supports trunk or limbs, but provides less than half the effort. 2-Substantial/Maximal Assistance-helper does MORE THAN HALF the effort. [place] lifts or holds trunk or limbs and provides more than half the effort. 7-Urzmbnhoj-qfvmgb does ALL the effort. Patient does none of the effort to complete the activity. Or, the assistance of 2 or more helpers is required for the patient to complete the activity. If activity was not attempted, code reason: 7-Patient Refused. 9-Not Applicable-not attempted and the patient did not perform the activity before the current illness, exacerbation or injury. 10-Not Attempted due to Environmental Limitations-(lack of equipment, weather restraints, etc.). 88-Not Attempted due to Medical Conditions or Safety Concerns. Bed Mobility: 6 Transfers (B,C,W/C): 6 Gait: 6 Stairs: 6 Indoor Mobility (Ambulation): Independent Stairs: Independent Patient states she uses a cane occasionally. PT Evaluation-Current Subjective Patient in recliner pre tx, agrees to PT, has no complaints of pain. Will be co-treating with OT for part of tx due to poor patient mobility, strength, endurance, coordinate UE and LE during activity, safety and reduce risk of falls. Pt/Family Goals to be independent at home Objective Patient Orientation: Person, Place, Situation Attachments: Oxygen ROM/Strength ROM Lower Extremities WNL Strength Lower Extremities LLE (hip flexion 3/5, knee flexion 4+/5, knee extension 4/5, dorsiflexion 4+/5), RLE (hip flexion 3/5, knee flexion 4+/5, knee extension 4/5, dorsiflexion 4+/5) Sensory Vision: Wears Glasses Hearing: Functional Hand Dominance: Right Sensation Right Lower Extremit: Intact Sensation Left Lower Extremity: Intact Transfers Roll Left & Right (QC): 6 Sit to Lying (QC): 6 Lying to Sitting/Side of Bed(Q: 6 Sit to Stand (QC): 4 Chair/Hfs-uz-Ncrvs Xfer(QC): 4 Toilet Transfer (QC): 4 Car Transfer (QC): 4 Patient performs bed mobility and supine <-> sit with independence, sit <-> stand and transfers with CGA, car transfer CGA. Patient needs occasional cues for hand placement and positioning, has a lot of difficulty getting her legs into the car transfer marine mammal trainer but she can do it without assist. Gait Does the Patient Walk?: Yes Mode of Locomotion: Walk Anticipated Mode of Locomotion: Walk Walk 10 feet (QC): 4 Walk 50 ft with 2 Turns(QC): 4 Walk 150 ft (QC): 4 Walking 10ft/uneven surface-QC: 4 Distance: 250', 120' Gait Assistive Device: FWW Comments/Gait Description Patient can ambulate 250' with a rolling walker with CGA (including 50' with at least 2 turns of 90 degrees and 10' over an uneven surface). Patient ambulates very slowly, has moments of unsteadiness but no LOB. Wheelchair Training Does the Pt Use a Wheelchair?: No Wheel 50 ft with 2 turns (QC): 9 Wheel 150 ft (QC): 9 Stairs #of Steps: 1 1 Step (curb) (QC): 4 4 Steps (QC): 88 12 Steps (QC): 88 Walking Assistive Device: Walker Patient can go up and down 1 step using a rolling walker with CGA, cues for foot placement. Balance Sitting Static: Normal Sitting Dynamic: Normal Standing Static: Fair Standing Dynamic: Fair Picking up an Object (QC): 88 Treatment PT performed bed mobility and transfers, ambulation, stair training, gait training, assisted with balance and positioning during bathing and dressing and ADL's, OT performed ADL's, bathing, dressing, UE positioning and safety during activity. Assessment/Needs Patient has impaired mobility, strength, endurance. Patient in recliner post tx with nurse call, phone, tray, all needs met. Patient CGA with transfers and ambulation but she does have some unsteadiness. Rehab Potential: Fair PT Short Term Goals Short Term Goals Time Frame: May 14, 2021 Roll Left & Right: 6 Sit to lyin Lying to sitting on side of be: 6 Sit to stand: 4 (SBA) Chair/onh-hu-bntvc transfer: 4 (SBA) Walk 10 feet: 4 (SBA) Walk 50 feet with two turns: 4 (SBA) Walk 150 feet: 4 (SBA) PT Research Nutritionist Goals Research Nutritionist Goals PT Assisted Goals Time Frame: May 28, 2021 Roll Left & Right (QC): 6 Sit to Lying (QC): 6 Lying-Sitting on Side/Bed(QC): 6 Sit to Stand (QC): 6 Chair/Ixe-hc-Hlupf Xfer(QC): 6 Toilet Transfer (QC): 6 Car Transfer (QC): 6 Does the Patient Walk: Yes Walk 10 feet (QC): 6 Walk 50ft with 2 Turns (QC): 6 Walk 150 ft (QC): 6 Walking 10ft on Uneven Surface: 6 1 Step (curb) (QC): 4 4 Steps (QC): 4 12 Steps (QC): 88 Picking up an Object (QC): 4 Wheel 50 feet with 2 turns (QC: 9 Wheel 150 feet: 9 PT Plan Problem List Problem List: Activity Tolerance, Functional Strength, Safety, Balance, Gait, Transfer, Bed Mobility, ROM Treatment/Plan Treatment Plan: Continue Plan of Care Treatment Plan: Bed Mobility, Education, Functional Activity Sesar, Functional Strength, Group Therapy, Gait, Safety, Therapeutic Exercise, Transfers Treatment Duration: May 28, 2021 Frequency: At least 5 of 7 days/Wk (IRF) Estimated Hrs Per Day: 1.5 hours per day Patient and/or Family Agrees t: Yes Safety Risks/Education Patient Education: Gait Training, Transfer Techniques, Steps, Correct Positioning, Safety Issues Teaching Recipient: Patient Teaching Methods: Demonstration, Discussion Response to Teaching: Reinforcement Needed Discharge Recommendations Plan Patient will perform bed mobility and transfer training, balance and endurance training, functional strengthening, stair training, gait training, and educa tion, to improve functional mobility and independence at home. Therapy Discharge Recommendati: Home & Family, Post Acute PT Time/GCodes Time In: 1055 Time Out: 1200 Total Billed Treatment Time: 55 Total Billed Treatment 1 visit EVM 10' FA 45' PT eval from 2511-1030, OT eval from [id number], co-treat from [id number] ABHISHEK THOMAS PT May 07, 2021 12:51
--- NOTE | 2021-05-07 14:36 | Occupational Ther Daily Note ---
OT Current Status-Daily Note Subjective Pt alert, standing at counter when therapy entered. Pt agreed to therapy. No c/o pain reported. Mental Status/Objective Patient Orientation: Person, Place, Time, Situation Attachments: IV, Oxygen, Telemetry ADL-Treatment Therapy Code Descriptions/Definitions Functional [place] Measure: 0=Not Assessed/NA 4=Minimal Assistance 1=Total Assistance 5=Supervision or Setup 2=Maximal Assistance 6=Modified [place] 3=Moderate Assistance 7=Complete IndependenceSCALE: Activities may be completed with or without assistive devices. 1-Gerbiplnzv-hkbbiec completes the activity by him/herself with no assistance from a helper. 5-Set-up or Clean-up Assistance-helper sets up or cleans up; patient completes activity. [place] assists only prior to or following the activity. 4-Supervision or Touching Assistance-helper provides verbal cues and/or touching/steadying and/or contact guard assistance as patient completes activity. Assistance may be provided throughout the activity or intermittently. 3-Partial/Moderate Assistance-helper does LESS THAN HALF the effort. [place] lifts, holds or supports trunk or limbs, but provides less than half the effort. 2-Substantial/Maximal Assistance-helper does MORE THAN HALF the effort. [place] lifts or holds trunk or limbs and provides more than half the effort. 8-Qgctdnpwv-hwfjdn does ALL the effort. Patient does none of the effort to complete the activity. Or, the assistance of 2 or more helpers is required for the patient to complete the activity. If activity was not attempted, code reason: 7-Patient Refused. 9-Not Applicable-not attempted and the patient did not perform the activity before the current illness, exacerbation or injury. 10-Not Attempted due to Environmental Limitations-(lack of equipment, weather restraints, etc.). 88-Not Attempted due to Medical Conditions or Safety Concerns. Other Treatment Skilled instruction provided of B UE theraband exercises. Pt completed x2 of 10x of green theraband exercises while seated in chair at room to increase BUE strength for improved independence in ADLs. Pt required demonstration of exercise and was able to return demonstration. Pt required x2 resting break during exercise due to decrease activity tolerance and B UE strength. After session, pt sitting in chair. Call light in reach and all needs met. Education OT Patient Education: Exercise program Teaching Recipient: Patient Teaching Methods: Demonstration, Handout Response to Teaching: Verbalize Understanding, Return Demonstration OT Short Term Goals Short Term Goals Time Frame: May 14, 2021 Oral hygiene: 5 Toileting hygiene: 5 Shower/bathe self: 5 Upper body dressin Lower body dressin OT Assisted Goals Assisted Goals Time Frame: May 23, 2021 Eating (QC): 6 Oral Hygiene (QC): 6 Toileting Hygiene (QC): 6 Shower/Bathe Self (QC): 6 Upper Body Dressing (QC): 6 Lower Body Dressing (QC): 6 On/Off Footwear (QC): 6 Additional Goals: 1-Demonstrate ADL Tasks, 2-Verbalize Understanding, 3- ImproveStrength/Sesar 1=Demonstrate adherence to instructed precautions during ADL tasks. 2=Patient will verbalize/demonstrate understanding of assistive devices/modifications for ADL. 3=Patient will improve strength/tolerance for activity to enable patient to perform ADL's. OT Education/Plan Problem List/Assessment Assessment: Decreased Activ Tolerance, Decreased UE Strength, Impaired Self- Care Skills Discharge Recommendations Plan/Recommendations: Continue POC Treatment Plan/Plan of Care Patient would benefit from OT for education, treatment and training to promote independence in ADL's, mobility, safety and/or upper extremity function for ADL's. Plan of Care: ADL Retraining, Functional Mobility, Group Exercise/Act as Ind, UE Funct Exercise/Act Treatment Duration: May 23, 2021 Frequency: At least 5 of 7 days/Wk (IRF) Estimated Hrs Per Day: 1.5 hours per day Rehab Potential: Fair Time/GCodes Start Time: 13:30 Stop Time: 14:05 Total Time Billed (hr/min): 35 Billed Treatment Time 1 visit- Ex 2(35 mins) SHARONA TERAN May 07, 2021 14:36
--- NOTE | 2021-05-07 14:39 | Physical Therapy Daily Note ---
PT Daily Note-Current Subjective Pt in recliner upon arrival and agrees to tx, pt has no c/o pain. Mental Status Patient Orientation: Person, Place, Time, Situation Transfers SCALE: Activities may be completed with or without assistive devices. 4-Mywjswativ-tbowpvi completes the activity by him/herself with no assistance from a helper. 5-Set-up or Clean-up Assistance-helper sets up or cleans up; patient completes activity. [place] assists only prior to or following the activity. 4-Supervision or Touching Assistance-helper provides verbal cues and/or touching/steadying and/or contact guard assistance as patient completes activity. Assistance may be provided throughout the activity or intermittently. 3-Partial/Moderate Assistance-helper does LESS THAN HALF the effort. [place] lifts, holds or supports trunk or limbs, but provides less than half the effort. 2-Substantial/Maximal Assistance-helper does MORE THAN HALF the effort. [place] lifts or holds trunk or limbs and provides more than half the effort. 1-Qizclztii-yrrpms does ALL the effort. Patient does none of the effort to complete the activity. Or, the assistance of 2 or more helpers is required for the patient to complete the activity. If activity was not attempted, code reason: 7-Patient Refused. 9-Not Applicable-not attempted and the patient did not perform the activity before the current illness, exacerbation or injury. 10-Not Attempted due to Environmental Limitations-(lack of equipment, weather restraints, etc.). 88-Not Attempted due to Medical Conditions or Safety Concerns. Sit to Stand (QC): 3 VC given to uses arms of chair w/ sit to/from stand TF. Mary for sit to stand. Gait Training Does the Patient Walk?: Yes Distance: 200', 100' Walk 10 feet (QC): 4 Walk 50 ft with 2 Turns(QC): 4 Walk 150 ft (QC): 4 Gait Assistive Device: FWW Exercises NuStep Minutes: 15 NuStep Workload: 5 Treatments Pt sit to stand from recliner Mary and amb 200' to NuStep in therapy gym. Pt completes 15 mins with WL 5. Pt amb back to room and returns to recliner. Pt remains in recliner with all needs met, call light in hand. Assessment Current Status: Good Progress VC for sit to stand. Pt CGA/SBA for all mobility with steady, but slow gait. PT Short Term Goals Short Term Goals Time Frame: May 14, 2021 Roll Left & Right: 6 Sit to lyin Lying to sitting on side of be: 6 Sit to stand: 4 (SBA) Chair/whz-zz-odcbb transfer: 4 (SBA) Walk 10 feet: 4 (SBA) Walk 50 feet with two turns: 4 (SBA) Walk 150 feet: 4 (SBA) PT Operator Vacuum Goals Mcfp Goals PT Operator Vacuum Goals Time Frame: May 28, 2021 Roll Left & Right (QC): 6 Sit to Lying (QC): 6 Lying-Sitting on Side/Bed(QC): 6 Sit to Stand (QC): 6 Chair/Tev-fu-Okvrj Xfer(QC): 6 Toilet Transfer (QC): 6 Car Transfer (QC): 6 Does the Patient Walk: Yes Walk 10 feet (QC): 6 Walk 50ft with 2 Turns (QC): 6 Walk 150 ft (QC): 6 Walking 10ft on Uneven Surface: 6 1 Step (curb) (QC): 4 4 Steps (QC): 4 12 Steps (QC): 88 Picking up an Object (QC): 4 Wheel 50 feet with 2 turns (QC: 9 Wheel 150 feet: 9 PT Plan Treatment/Plan Treatment Plan: Continue Plan of Care Treatment Plan: Bed Mobility, Education, Functional Activity Sesar, Functional Strength, Group Therapy, Gait, Safety, Therapeutic Exercise, Transfers Treatment Duration: May 28, 2021 Frequency: At least 5 of 7 days/Wk (IRF) Estimated Hrs Per Day: 1.5 hours per day Patient and/or Family Agrees t: Yes Time/GCodes Time In: 1410 Time Out: 1445 Total Billed Treatment Time: 35 Total Billed Treatment 1, Ex, GT KYRIE COOL HUMAN RESOURCES OPERATIONS MANAGER May 07, 2021 14:39
[2021-05-07] MEDS ORDERED: FUROSEMIDE 40 MG (LASIX) TAB PO PRN (18:15)
[2021-05-07] MEDS ORDERED: NON-FORMULARY MEDICATION 1 EA EA (Potassium Chloride 20 MEQ) PO PRN (18:15)
[2021-05-07] MEDS ORDERED: FLUTICASONE NASAL SPRAY (FLONASE) 16 GM BTL NS PRN (18:15)
[2021-05-07] MEDS ORDERED: RT-ALBUTEROL SULF 2.5 MG/3 ML PRE-MIX VIAL IH PRN (18:15)
[2021-05-07] MEDS ORDERED: KCL 20 MEQ TAB (K-DUR) PO PRN (18:30)
[2021-05-07] MEDS: CEFEPIME INJECTION 1,000 MG in WATER (STERILE) FOR INJECTION 10 ML IV SCH (18:44)
[2021-05-07] MEDS: methylPREDNISolone 40 MG/ML (Solu-MEDROL) VIAL IV SCH (18:44)
--- NOTE | 2021-05-07 20:44 | PM&R Post Admission Assessment ---
PM&R HP Date of Visit: May 07, 2021 Time of Visit: 12:00 History of Present Illness Chief complaint: COPD myopathy with debility History of present illness: This is a 76-year-old white female clinic patient of mine for 17 years who has a past medical history of complex medical issues including ADOLPH on CPAP with nocturnal oxygen supplementation, atrial fibrillation previous ablations but in need of repeat procedure in process with Dr. Hoyt at on Wednesday consultation, and previous Covid last year who presents to inpatient rehab after multiple ER visits and hospital stays due to exacerbation of COPD with atrial fibrillation with rapid ventricular response and now left lower lobe pneumonia. She lives alone. She ambulates around with a cane. She is in need of strengthening to get back to baseline in order to decrease the chance of readmissions and falls at home. H&P from Med student DAYA SHEPPARD CC: Lobar Pneumonia, Generalized weakness following multiple hospital visits HPI: Mame Archer is a 76 yo female, with a history of CAD, CHF, pulm HTN, glucose intolerance, ADOLPH, chronic RBBB and COPD w recent exacerbation, and A-fib w/ RVR, who presents for evaluation and management of lobar pneumonia and weakness. Following recent discharge from the hospital, Mame reports that she developed fever, chills, increasing SOB, and frequent cough. This prompted a visit to the ED; she was informed that she had an infection and was counseled to f/u with her PCP (Dr. Darnell). Mame went to see Dr. Darnell on 05/05/21 at her office d/t continuing malaise and fever, which she was previously managing with tylenol QID; upon assessment, Dr. Darnell decided to admit Mame to med/surg (room 411) for work-up and assessment. On CXR (05/05/21) there was L ollie-hilar infiltrate, suspicious for lobar pneumonia. Respiratory cultures did not isolate MRSA, so vancomycin was D/C, but she continues to recieve IV cefepime. Today, 05/07/2021, Mame is conversational and states her BID breathing treatments have been helpful. She states that her appetite is ok, and has been able to have bowel movements last night. Upon discussion with Dr. Darnell, it was determined that Mame will do well on the rehabilitation floor to prevent readmission. Mame agreed with this plan and understands that episodes of a-fib seem to destabilize her, and that rehab and continued abx will prevent another hospitalization. Assessment/Plan Lobar Pneumonia, general weakness Redemonstrated nodular masslike consolidation in the left midlung which is unchanged per CXR of 05-06-21 Continue IV vancomycin and cefepime Monitor vitals (BP, HR) PT/OT to evaluate and assess for post-illness debility/weakness Paroxysmal A fib and typical A flutter First documented on 09-30-18 at [facility]). Placed on flecainide at [facility] on 09/30/18 Has had typical atrial flutter ablation by Dr Thompson on 01/30/19 Has had ILR placement by Dr Thompson n 04/06/19 Post a-fib ablation on 05-22-2019 by . Now off flecainide ILR interrogation of Feb 2021 showed episodes of a-fib with RVR in January Awaiting apptt at [facility] for recurrent a fib at [facility] (Dr Thompson) OAC with Eliquis CAD Minor coronary artery disease per cardiac catheterization of July 2006. MPI of 01/17/15 did not show ischemia or infarction, and LVEF was 54% Echo 12/16/18 showed LVEF 60-65%, mild MR, RVSP 25 mmHg Abnormal ECG RBBB, chronic History of bronchial asthma Managed by PCP Hyperlipidemia Being treated and being followed by Dr. Darnell. Glucose intolerance Managed by Dr. Darnell Hypertension Fairly well controlled Currently mildly elevated Obesity Elevated body mass index of approximately 44 Chronic diastolic CHF Clinically compensated Obstructive sleep apnea syndrome - treated with C-PAP therapy. History of overactive bladder and urinary incontinence - S/p botox injection in September 2017 and Mar 2019 by her urologist in [facility] in [place]. Orthopedic - Left knee and R hip replacement. Past Ixwcymh-Ltyrbw-Ijdwqd Hx Past Med/Social Hx: Reviewed Nursing Past Med/Soc Hx, Reviewed and Corrections made Patient Social History Marrital Status: Employed/Student: retired Alcohol Use: Rarely Uses Alcohol Beverage of Choice: Wine Smoking Status: Never a Smoker Type Used: Cigarettes 2nd Hand Smoke Exposure: No Recent Hopitalizations: No Immunizations Up To Date Tetanus Booster (TDap): Less than 5yrs Date of Pneumonia Vaccine: Apr 04, 2020 Date of Influenza Vaccine: Apr 30, 2021 Seasonal Allergies Seasonal Allergies: Yes Past Medical History Surgeries: Orthopedic Respiratory: Asthma, Sleep Apnea Currently Using CPAP: Yes Currently Using BIPAP: No Cardiac: Atrial Fibrillation, Chronic Edema/Swelling, High Cholesterol, Hypertension Reproductive: No Sexually Transmitted Disease: No Menopausal Genitourinary: Kidney Infection, Bladder Infection Gastrointestinal: Gastroesophageal Reflux Musculoskeletal: Arthritis, Chronic Back Pain Endocrine: Diabetes, Non-Insulin dep HEENT: Cataract Loss of Vision: Bilateral Hearing Impairment: Denies Psychosocial: Anxiety, Depression History of Blood Disorders: No Adverse Reaction to Blood Singh: No Family History Arthritis 19 MOTHER Cataracts 19 FATHER 19 MOTHER Colon cancer 19 FATHER Deafness or hearing loss 19 FATHER Dementia 19 FATHER FH: macular degeneration 19 MOTHER FH: prostate cancer 19 FATHER FH: skin cancer 19 FATHER Gout 19 MOTHER Hypertension 19 FATHER 19 MOTHER Myocardial infarction 19 FATHER 19 MOTHER Prior Level of Function Bed Mobility: 6 Transfers: 6 Gait: 6 Stairs: 6 Indoor Mobility (Ambulation): Independent Stairs: Independent Self Care: Independent Functional Cognition: Independent Current Level of Fuctioning Roll Left to Right: 6 Sit to Lyin Lying to Sitting/Side of Bed: 6 Sit to Stand: 3 Chair/Lkt-ol-Hqiyz Xfer: 4 Car Transfer: 4 Does the Patient Walk: Yes Mode of Locomotion: Walk Anticipated Mode of Locomotion: Walk Walk 10 feet: 4 Walk 50 ft with 2 Turns: 4 Walk 150 ft: 4 Walking 10ft on uneven surface: 4 Gait Assistive Device: FWW Does the Pt Use a Wheelchair: No Wheel 50 ft with 2 turns: 9 Wheel 150 ft: 9 #of Steps: 1 1 Step (curb): 4 4 Steps: 88 Walking Assistive Device: Walker 12 Steps: 88 Picking up an Object: 88 Eatin Oral Hygiene: 7 Shower/Bathe Self: 4 Upper Body Dressin Lower Body Dressin On/Off Footwear: 4 Toileting Hygiene: 4 PM&R Allergy/Meds/Data Review Allergies Coded Allergies: sulfamethoxazole (Verified Allergy, Intermediate, rash, SOB, 10/23/18) trimethoprim (Verified Allergy, Intermediate, rash, SOB, 10/23/18) cephalexin (Verified Allergy, Unknown, 10/02/18) Home Medications Scheduled Amlodipine Besylate (Norvasc), 10 MG PO DAILY Apixaban (Eliquis), 5 MG PO BID, (Reported) Atorvastatin Calcium (Atorvastatin Calcium), 20 MG PO HS, (Reported) Cholecalciferol (Vitamin D3) (Vitamin D3), 125 MCG PO DAILY, (Reported) Diltiazem HCl (Diltiazem 24Hr ER), 240 MG PO BID Doxazosin Mesylate (Doxazosin Mesylate), 1 MG PO HS Estradiol (Estradiol Tablet), 0.5 MG PO DAILY, (Reported) Ipratropium/Albuterol Sulfate (Iprat-Albut 0.5-3(2.5) mg/3 ml), 3 ML INH RTBID Lisinopril (Lisinopril), 40 MG PO DAILY Loratadine (Loratadine), 10 MG PO DAILY, (Reported) Metoprolol Succinate (Metoprolol Succinate), 25 MG PO BID Montelukast Sodium (Montelukast Sodium), 10 MG PO HS, (Reported) Sertraline HCl (Sertraline HCl), 150 MG PO DAILY, (Reported) Trazodone HCl (Trazodone HCl), 50 MG PO HS, (Reported) Scheduled PRN ALPRAZolam (ALPRAZolam), 0.25 MG PO Q8H PRN for ANXIETY, (Reported) Albuterol Sulfate (Proair Hfa), 2 PUFF IH Q4H PRN for SHORTNESS OF BREATH, (Reported) Docusate Sodium (Docusate Sodium), 100 MG PO TID PRN for CONSTIPATION-1ST LINE, (Reported) Fluticasone Propionate (Fluticasone Propionate), 2 SPRAYS NS HS PRN for ALLERGIES, (Reported) Furosemide (Furosemide), 40 MG PO DAILY PRN for FLUID RETENTION, (Reported) Potassium Chloride (Potassium Chloride), 20 MEQ PO DAILY PRN for WHEN TAKING FUROSEMIDE, (Reported) Discontinued Medications Baclofen (Baclofen), 10 MG PO BID PRN for MUSCLE SPASMS, (Reported) Discontinued Reason: No Longer Taking Fluticasone/Salmeterol (Advair 100-50 Diskus), 1 PUFF INH BID PRN for SHORTNESS OF BREATH, (Reported) Discontinued Reason: No Longer Taking Oxycodone HCl/Acetaminophen (Oxycodone-Acetaminophen 5-325), 1-2 EA PO Q6H PRN for PAIN-MODERATE (5-7), (Reported) Discontinued Reason: No Longer Taking Prednisone (Prednisone), 10 MG PO DAILY Tizanidine HCl (Tizanidine HCl), 4 MG PO TID PRN for MUSCLE SPASMS, (Reported) Discontinued Reason: No Longer Taking Current Medications Current Medications Reviewed Review of Systems Constitutional: see HPI, malaise, weakness EENTM: no symptoms reported Respiratory: dyspnea on exertion, short of breath, wheezing Cardiovascular: palpitations Gastrointestinal: no symptoms reported Genitourinary: no symptoms reported Musculoskeletal: back pain, joint pain Skin: no symptoms reported Psychiatric/Neurological: Anxiety, Depressed All Other Systems Reviewed Negative Unless Noted: Yes Physical Exam Physical Exam Vital Signs Vital Signs - First Documented 05/07/21 12:00 Temp 36.8 Pulse 66 Resp 18 B/P (MAP) 148/80 (102) Pulse Ox 94 O2 Delivery Nasal Cannula O2 Flow Rate 2.00 Capillary Refill : Height, Weight, BMI Height: 5'7.00" Weight: 291lbs. 6.0oz. 132.557128bh; 44.87 BMI Method:Stated General Appearance: No Apparent Distress, WD/WN, Anxious, Chronically ill, Ob ward Eyes: Bilateral Eye Normal Inspection, Bilateral Eye PERRL HEENT: PERRL/EOMI, Normal ENT Inspection, Pharynx Normal Neck: Full Range of Motion, Normal Inspection, Non Tender, Supple, Carotid Bruit Respiratory: Chest Non Tender, Lungs Clear, No Accessory Muscle Use, No Respiratory Distress, Wheezing (Subtle upper respiratory) Cardiovascular: No Edema, No Gallop, No JVD, No Murmur, Normal Peripheral Pulses, Irregularly Irregular, Tachycardia Gastrointestinal: Normal Bowel Sounds, No Organomegaly, No Pulsatile Mass, Non Tender, Soft Back: Normal Inspection, No CVA Tenderness, No Vertebral Tenderness Extremity: Normal Capillary Refill, Normal Inspection, Normal Range of Motion, Non Tender, No Calf Tenderness, No Pedal Edema Neurologic/Psychiatric: Alert, Oriented x3, Normal Mood/Affect, engineering group manager II-XII Norm as Tested, Abnormal Gait, Motor Weakness (Generalized 4/5) Skin: Normal Color, Warm/Dry Lymphatic: No Adenopathy PM&R Medical Assessment & Plan REHAB/MEDICAL ASSESSMENT AND PLAN: REHAB IMPAIRMENT GROUP: COPD myopathy ETIOLOGIC DIAGNOSIS: COPD myopathy The comorbidities that impact the patients function and/or functional outcome by: Obesity BMI 44, chronic O2 dependence, atrial fibrillation with RVR in need of ablation Lives alone REHAB PLAN: The patient is being admitted to our comprehensive inpatient rehabilitation facility and can tolerate the intensity of service consisting of at least: 180 minutes of therapy a day, 5 out of 7 days a week Rehab treatment will consist of: PT and OT will focus on regaining function with the use of assistive devices and increase independence of ADLs to help with stamina with hypoxia and atrial fibrillation management The patient/family has a good understanding of our discharge process and will benefit from an interdisciplinary inpatient rehabilitation program. The patient has potential to make improvement and is in need of at least two of the following multidisciplinary therapies including but not limited to physical, occupational, speech, and prosthetics and orthotics. Additionally the patient will need services from respiratory, nutritional services, wound care, psychology, etc. (Customize this to each patient). Given the patients complex condition and risk of further medical complications, rehabilitation services cannot be safely or effectively provided at a lower level of care such as a [facility] facility. BARRIERS TO DISCHARGE: Lives alone ESTIMATED LOS: 7 days DISPOSITION: Home RELEVANT CHANGES SINCE PREADMISSION SCREENING: I have compared the patients medical and functional status at the time of the preadmission screening and there are: No changes PROGNOSIS: Guarded REHABILITATION GOALS: 1. PT and OT will focus on regaining function with the use of assistive devices and increase independence of ADLs to help with stamina with hypoxia and atrial fibrillation management All the above goals were reviewed with the patient and he/she is in agreement. By signing this document, I acknowledge that I have personally performed a full physical examination on this patient within 24 hours of admission to this inpatient rehabilitation facility and have determined the patient to be able to tolerate the above course of treatment at an intensive level for a reasonable period of time. I will be completing a detailed individualized Plan of Care for this patient by day #4 of the patients stay based upon the Preadmission Screen, the Post-Admission Evaluation, and the therapy evaluations. Admission Dx/Comorbidities: (1) Myopathy ICD Codes: G72.9 - Myopathy, unspecified (2) SIRS (systemic inflammatory response syndrome) ICD Codes: R65.10 - Systemic inflammatory response syndrome (SIRS) of non- infectious origin without acute organ dysfunction (3) Pneumonia ICD Codes: J18.9 - Pneumonia, unspecified organism (4) Chronic diastolic heart failure ICD Codes: I50.32 - Chronic diastolic (congestive) heart failure (5) Persistent atrial fibrillation ICD Codes: I48.19 - Other persistent atrial fibrillation (6) ADOLPH on CPAP Status: Chronic ICD Codes: G47.33 - Obstructive sleep apnea (adult) (pediatric); Z99.89 - Dependence on other enabling machines and devices (7) Insomnia Status: Chronic ICD Codes: G47.00 - Insomnia, unspecified (8) Anxiety Status: Chronic ICD Codes: F41.9 - Anxiety disorder, unspecified (9) Mixed hyperlipidemia ICD Codes: E78.2 - Mixed hyperlipidemia Assessment/Plan Assessment and Plan Assess & Plan/Chief Complaint Assessment: COPD myopathy Asthma/COPD with current acute exacerbation Left lower lobe pneumonia facility acquired Debility Recurrence of atrial fibrillation status post ablations in process of seeing Dr. Hoyt at on Wednesday Severe hypertension due to steroids Obstructive sleep apnea on CPAP Previous 2019 Nocturnal hypoxia on oxygen Anxiety Depression Recurrent UTI history Plan: Aggressive rehab Supportive care Oxygen Steroids IV antibiotics ANAY DARNELL DO May 07, 2021 20:44
[2021-05-07 20:45] VITALS: BP 136/62
[2021-05-07] MEDS: RT-ALBUTEROL/IPRATROPIUM 3 ML (DUONEB) VIAL INH SCH (20:47)
[2021-05-07] MEDS: polyethylene glycoL POWDER 17 GM (MIRALAX) PACK PO SCH (21:00)
[2021-05-07] MEDS: traZODone 50 MG (DESYREL) TAB PO SCH (22:07)
[2021-05-07] MEDS: ALPRAZolam 0.25 MG (XANAX) TAB PO PRN (22:07)
[2021-05-07] MEDS: APIXABAN 5 MG (ELIQUIS) TABLET PO SCH (22:08)
[2021-05-07] MEDS: SENNA W/DOCUSATE (SENOKOT S) TABLET PO SCH (22:08)
[2021-05-07] MEDS: DOCUSATE SODIUM 100 MG (COLACE) CAP PO SCH (22:08)
[2021-05-07] MEDS: MONTELUKAST 10 MG (SINGULAIR) TAB PO SCH (22:09)
[2021-05-07] MEDS: doxAzosin 1 MG (CARDURA) TAB PO SCH (22:23)
[2021-05-08] MEDS: CEFEPIME INJECTION 1,000 MG in WATER (STERILE) FOR INJECTION 10 ML IV SCH ×4 (00:47→18:39)
[2021-05-08] MEDS: methylPREDNISolone 40 MG/ML (Solu-MEDROL) VIAL IV SCH ×2 (06:24→18:39)
[2021-05-08 06:42] LABS: BASOPHILS % (AUTO) 0 % (0-10); EOSINOPHILS % (AUTO) 0 % (0-10); HEMATOCRIT 35 % (35-52); HEMOGLOBIN 11.4 g/dL (11.5-16.0); LYMPHOCYTES # (AUTO) 0.7 10^3/uL (1.0-4.0); LYMPHOCYTES % (AUTO) 7 % (12-44); MEAN CORPUSCULAR HEMOGLOBIN 29 pg (25-34); MEAN CORPUSCULAR HGB CONC 33 g/dL (32-36); MEAN CORPUSCULAR VOLUME 88 fL (80-99); MEAN PLATELET VOLUME 9.5 fL (9.0-12.2); MONOCYTES # (AUTO) 0.3 10^3/uL (0.0-1.0); MONOCYTES % (AUTO) 3 % (0-12); NEUTROPHILS # (AUTO) 8.3 10^3/uL (1.8-7.8); NEUTROPHILS % (AUTO) 85 % (42-75); PLATELET COUNT 203 10^3/uL (130-400); WHITE BLOOD COUNT 9.7 10^3/uL (4.3-11.0)
[2021-05-08 07:01] LABS: ALBUMIN 2.9 GM/DL (3.2-4.5); BILIRUBIN,TOTAL 0.4 MG/DL (0.1-1.0); CALCIUM 8.8 MG/DL (8.5-10.1); CREATININE SERUM 0.8 MG/DL (0.60-1.30); POTASSIUM 4.4 MMOL/L (3.6-5.0); TOTAL PROTEIN 5.4 GM/DL (6.4-8.2)
[2021-05-08 08:26] VITALS: BP 141/72
[2021-05-08] MEDS: polyethylene glycoL POWDER 17 GM (MIRALAX) PACK PO SCH ×2 (09:00→21:55)
[2021-05-08] MEDS ORDERED: NON-FORMULARY MEDICATION 1 EA EA (Cholecalciferol (Vitamin D3) (Vitamin D3) 125 MCG) PO SCH (09:00)
[2021-05-08] MEDS ORDERED: NON-FORMULARY MEDICATION 1 EA EA (Estradiol (Estradiol Tablet) 0.5 MG) PO SCH (09:00)
[2021-05-08] MEDS: DOCUSATE SODIUM 100 MG (COLACE) CAP PO SCH ×2 (09:00→21:55)
--- NOTE | 2021-05-08 09:16 | Occupational Ther Daily Note ---
OT Current Status-Daily Note Subjective Pt alert, sitting in chair when therapy entered. Pt agreed to therapy. No c/o pain reported. Pt requested sponge bath. Mental Status/Objective Patient Orientation: Person, Place, Time, Situation Attachments: IV, Oxygen, Telemetry ADL-Treatment Pt requested sponge bath of UB. Pt sit-stand from chair to FWW with supervision. Pt ambulated to closet in room to retrieve UB dressing and shoes using FWW with supervision. Pt ambulated to bathroom using FWW with supervision. Pt transferred to toilet and completed toilet hygiene independently. Pt sit-stand from toilet using grab bars to hike LB dressing with supervision. Pt transferred to shower bench with supervision. Pt doffed UB dressing independently while seated at shower bench. Pt then completed sponge bath of the UB while seated at shower bench. Pt donned UB dressing and shoes independently. Pt sit-stand from shower bench to FWW and ambulated to sink with supervision. Pt completed oral hygiene and brushing hair standing at sink using FWW with supervision. Pt ambulated to gym using FWW with supervision. Therapy Code Descriptions/Definitions Functional Cavalier Measure: 0=Not Assessed/NA 4=Minimal Assistance 1=Total Assistance 5=Supervision or Setup 2=Maximal Assistance 6=Modified Cavalier 3=Moderate Assistance 7=Complete IndependenceSCALE: Activities may be completed with or without assistive devices. 5-Aqcoqllzsv-mdeytzg completes the activity by him/herself with no assistance from a helper. 5-Set-up or Clean-up Assistance-helper sets up or cleans up; patient completes activity. [place] assists only prior to or following the activity. 4-Supervision or Touching Assistance-helper provides verbal cues and/or touching/steadying and/or contact guard assistance as patient completes activity. Assistance may be provided throughout the activity or intermittently. 3-Partial/Moderate Assistance-helper does LESS THAN HALF the effort. [place] lifts, holds or supports trunk or limbs, but provides less than half the effort. 2-Substantial/Maximal Assistance-helper does MORE THAN HALF the effort. [place] lifts or holds trunk or limbs and provides more than half the effort. 4-Xjbwjwfol-haqjuk does ALL the effort. Patient does none of the effort to complete the activity. Or, the assistance of 2 or more helpers is required for the patient to complete the activity. If activity was not attempted, code reason: 7-Patient Refused. 9-Not Applicable-not attempted and the patient did not perform the activity before the current illness, exacerbation or injury. 10-Not Attempted due to Environmental Limitations-(lack of equipment, weather restraints, etc.). 88-Not Attempted due to Medical Conditions or Safety Concerns. Other Treatment Skilled instruction provided of B UE exercises. Pt completed x1 set of 10 reps of B UE exercises of: shlder flexion, shlder extension, shlder adduction/abduction, internal rotation, and chest press while seated at chair to increase activity tolerance and BUE strength to complete ADLS safely and functionally. Pt required demonstration of exercises and was able to return demonstration. Pt required several rest breaks throughout exercises due to low endurance and fatigue. After therapy, pt left with PT in gym. All needs met. Education OT Patient Education: Energy conservation, Home exercise program Teaching Recipient: Patient Teaching Methods: Demonstration, Discussion Response to Teaching: Verbalize Understanding, Return Demonstration OT Short Term Goals Short Term Goals Time Frame: May 14, 2021 Oral hygiene: 5 Toileting hygiene: 5 Shower/bathe self: 5 Upper body dressin Lower body dressin OT Marketer Goals Fdc Goals Time Frame: May 23, 2021 Eating (QC): 6 Oral Hygiene (QC): 6 Toileting Hygiene (QC): 6 Shower/Bathe Self (QC): 6 Upper Body Dressing (QC): 6 Lower Body Dressing (QC): 6 On/Off Footwear (QC): 6 Additional Goals: 1-Demonstrate ADL Tasks, 2-Verbalize Understanding, 3- ImproveStrength/Sesar 1=Demonstrate adherence to instructed precautions during ADL tasks. 2=Patient will verbalize/demonstrate understanding of assistive devices/modifications for ADL. 3=Patient will improve strength/tolerance for activity to enable patient to perform ADL's. OT Education/Plan Problem List/Assessment Assessment: Decreased Activ Tolerance, Decreased UE Strength, Impaired Self- Care Skills Discharge Recommendations Plan/Recommendations: Continue POC Treatment Plan/Plan of Care Patient would benefit from OT for education, treatment and training to promote independence in ADL's, mobility, safety and/or upper extremity function for ADL's. Plan of Care: ADL Retraining, Functional Mobility, Group Exercise/Act as Ind, UE Funct Exercise/Act Treatment Duration: May 23, 2021 Frequency: At least 5 of 7 days/Wk (IRF) Estimated Hrs Per Day: 1.5 hours per day Rehab Potential: Fair Time/GCodes Start Time: 08:00 Stop Time: 09:00 Total Time Billed (hr/min): 60 Billed Treatment Time 1 visit- ADL 2 (35 mins), EX 2 (25 mins) (60 min) SHARONA TERAN May 08, 2021 09:16
--- NOTE | 2021-05-08 10:01 | Physical Therapy Daily Note ---
PT Daily Note-Current Subjective Pt sitting in chair after finishing w/OT upon arrival. Pt agrees to PT. Pain Location: No Pain Reported Mental Status Patient Orientation: Person, Place, Time, Situation Attachments: Oxygen (2L) Transfers SCALE: Activities may be completed with or without assistive devices. 4-Qtfaycdqbm-gokkxhj completes the activity by him/herself with no assistance from a helper. 5-Set-up or Clean-up Assistance-helper sets up or cleans up; patient completes activity. [place] assists only prior to or following the activity. 4-Supervision or Touching Assistance-helper provides verbal cues and/or touching/steadying and/or contact guard assistance as patient completes activity. Assistance may be provided throughout the activity or intermittently. 3-Partial/Moderate Assistance-helper does LESS THAN HALF the effort. [place] lifts, holds or supports trunk or limbs, but provides less than half the effort. 2-Substantial/Maximal Assistance-helper does MORE THAN HALF the effort. [place] lifts or holds trunk or limbs and provides more than half the effort. 4-Outwklhqg-duhjxf does ALL the effort. Patient does none of the effort to complete the activity. Or, the assistance of 2 or more helpers is required for the patient to complete the activity. If activity was not attempted, code reason: 7-Patient Refused. 9-Not Applicable-not attempted and the patient did not perform the activity before the current illness, exacerbation or injury. 10-Not Attempted due to Environmental Limitations-(lack of equipment, weather restraints, etc.). 88-Not Attempted due to Medical Conditions or Safety Concerns. Sit to Stand (QC): 5 Weight Bearing Full Weight Bearing Full Weight Bearing Gait Training Does the Patient Walk?: Yes Distance: 150' Walk 10 feet (QC): 5 Walk 50 ft with 2 Turns(QC): 5 Walk 150 ft (QC): 5 Gait Persons Needed: 1 Gait Assistive Device: FWW Stair Training Stair Training: Handrails/: 2 handrails #of Steps: 4 1 Step (curb) (QC): 5 4 Steps (QC): 5 Stairs: Pattern: Step to Exercises Seated Therapy Exercises: Ankle pumps, Long arc quads, Hip flexion, Hip abd/add, Glut set Seated Reps: 15 NuStep Minutes: 17 NuStep Workload: 4 Treatments Pt communicates concern over whether to keep Cardiac CANDY appt. or reschedule. Dr Ang advises its up to pt. Discuss progress/progression of COVID & pneumonia. TF to standing and uses NuStep for 17m at WL 4 then completes Seated Ex. Pt amb. in hallway, returning to room to rest in recliner w/all needs met, call light in hand. Assessment Current Status: Good Progress Pt is improving with strength and mobility. PT Short Term Goals Short Term Goals Time Frame: May 14, 2021 Roll Left & Right: 6 Sit to lyin Lying to sitting on side of be: 6 Sit to stand: 4 (SBA) Chair/gny-ud-tjgid transfer: 4 (SBA) Walk 10 feet: 4 (SBA) Walk 50 feet with two turns: 4 (SBA) Walk 150 feet: 4 (SBA) PT Discharge Specialist Goals [facility] Goals PT Discharge Specialist Goals Time Frame: May 28, 2021 Roll Left & Right (QC): 6 Sit to Lying (QC): 6 Lying-Sitting on Side/Bed(QC): 6 Sit to Stand (QC): 6 Chair/Msp-yh-Rqwht Xfer(QC): 6 Toilet Transfer (QC): 6 Car Transfer (QC): 6 Does the Patient Walk: Yes Walk 10 feet (QC): 6 Walk 50ft with 2 Turns (QC): 6 Walk 150 ft (QC): 6 Walking 10ft on Uneven Surface: 6 1 Step (curb) (QC): 4 4 Steps (QC): 4 12 Steps (QC): 88 Picking up an Object (QC): 4 Wheel 50 feet with 2 turns (QC: 9 Wheel 150 feet: 9 PT Plan Problem List Problem List: Activity Tolerance Treatment/Plan Treatment Plan: Continue Plan of Care Treatment Plan: Bed Mobility, Education, Functional Activity Sesar, Functional Strength, Group Therapy, Gait, Safety, Therapeutic Exercise, Transfers Treatment Duration: May 28, 2021 Frequency: At least 5 of 7 days/Wk (IRF) Estimated Hrs Per Day: 1.5 hours per day Patient and/or Family Agrees t: Yes Time/GCodes Time In: 900 Time Out: 1000 Total Billed Treatment Time: 60 Total Billed Treatment 1, FA (15m), EX x2 (30m) & GT (15m) SUSANA GARCIA TURKEY FARMER May 08, 2021 10:01
[2021-05-08] MEDS: SERTRALINE 100 MG (ZOLOFT) TAB PO SCH (10:25)
[2021-05-08] MEDS: VITAMIN D3 125 MCG (5,000 UNITS) CAPSULE PO SCH (10:25)
[2021-05-08] MEDS: LORATADINE (CLARITIN) 10 MG TAB PO SCH (10:26)
[2021-05-08] MEDS: SENNA W/DOCUSATE (SENOKOT S) TABLET PO SCH ×2 (10:26→21:50)
[2021-05-08] MEDS: APIXABAN 5 MG (ELIQUIS) TABLET PO SCH ×2 (10:27→21:55)
[2021-05-08] MEDS: ESTRADIOL 1 MG TAB (ESTRACE) PO SCH (10:27)
[2021-05-08] MEDS: amLODIPine 10 MG (NORVASC) TAB PO SCH (10:27)
[2021-05-08] MEDS: RT-ALBUTEROL/IPRATROPIUM 3 ML (DUONEB) VIAL INH SCH ×2 (10:31→18:51)
[2021-05-08] MEDS: lisINopril 20 MG (PRINIVIL) TABLET PO SCH (10:31)
--- NOTE | 2021-05-08 11:43 | PM&R Progress Note ---
Subjective HPI/CC On Admission Date Seen by Provider: May 08, 2021 Time Seen by Provider: 11:00 Subjective/Events-last exam 05/08/2021: Patient doing very well Settling in well No wheezing today Lasix will be given due to fluid retention Wants to reschedule consultation appoint with Dr. Hoyt at until she is fully recovered because of the long ride back and forth Dr. Ang is in agreement with this plan Check meds and labs Maintain on antibiotics Review of Systems General: Fatigue Pulmonary: Dyspnea Objective Exam Vital Signs Vital Signs Date Time Temp Pulse Resp B/P (MAP) Pulse Ox O2 Delivery O2 Flow Rate FiO2 05/09/21 01:08 45 05/08/21 21:55 93 Nasal Cannula 2.00 05/08/21 20:00 36.4 18 131/62 (85) Capillary Refill : General Appearance: No Apparent Distress, WD/WN, Anxious, Chronically ill, Obese HEENT: PERRL/EOMI, Normal ENT Inspection, Pharynx Normal Neck: Full Range of Motion, Normal Inspection, Non Tender, Supple, Carotid Bruit Respiratory: Chest Non Tender, Lungs Clear, No Accessory Muscle Use, No Respiratory Distress, Wheezing (Subtle upper respiratory) Cardiovascular: No Edema, No Gallop, No JVD, No Murmur, Normal Peripheral Pul ses, Irregularly Irregular, Tachycardia Gastrointestinal: Normal Bowel Sounds, No Organomegaly, No Pulsatile Mass, Non Tender, Soft Back: Normal Inspection, No CVA Tenderness, No Vertebral Tenderness Extremity: Normal Capillary Refill, Normal Inspection, Normal Range of Motion, Non Tender, No Calf Tenderness, No Pedal Edema Neurologic/Psychiatric: Alert, Oriented x3, Normal Mood/Affect, skidder driver II-XII Norm as Tested, Abnormal Gait, Motor Weakness (Generalized 4/5) Skin: Normal Color, Warm/Dry Lymphatic: No Adenopathy Results/Procedures Lab Laboratory Tests 05/08/21 06:20 Patient resulted labs reviewed. FIM Transfers Therapy Code Descriptions/Definitions Functional Jack Measure: 0=Not Assessed/NA 4=Minimal Assistance 1=Total Assistance 5=Supervision or Setup 2=Maximal Assistance 6=Modified Jack 3=Moderate Assistance 7=Complete IndependenceSCALE: Activities may be completed with or without assistive devices. 1-Xbcrnacwxv-zunyidi completes the activity by him/herself with no assistance from a helper. 5-Set-up or Clean-up Assistance-helper sets up or cleans up; patient completes activity. [place] assists only prior to or following the activity. 4-Supervision or Touching Assistance-helper provides verbal cues and/or touching/steadying and/or contact guard assistance as patient completes activity. Assistance may be provided throughout the activity or intermittently. 3-Partial/Moderate Assistance-helper does LESS THAN HALF the effort. [place] lifts, holds or supports trunk or limbs, but provides less than half the effort. 2-Substantial/Maximal Assistance-helper does MORE THAN HALF the effort. [place] lifts or holds trunk or limbs and provides more than half the effort. 5-Zhxrwguaw-foezdw does ALL the effort. Patient does none of the effort to complete the activity. Or, the assistance of 2 or more helpers is required for the patient to complete the activity. If activity was not attempted, code reason: 7-Patient Refused. 9-Not Applicable-not attempted and the patient did not perform the activity before the current illness, exacerbation or injury. 10-Not Attempted due to Environmental Limitations-(lack of equipment, weather restraints, etc.). 88-Not Attempted due to Medical Conditions or Safety Concerns. Roll Left to Right (QC): 6 Sit to Lying (QC): 6 Sit to Stand (QC): 5 Chair/Ekr-fg-Qvhlh Xfer(QC): 4 Car Transfer (QC): 4 Gait Training Does the Patient Walk?: Yes Distance: 150' Walk 10 feet (QC): 5 Walk 50 ft with 2 Turns(QC): 5 Walk 150 ft (QC): 5 Walking 10ft/uneven surface-QC: 4 Gait Persons Needed: 1 Gait Assistive Device: FWW Wheelchair Training Does the Pt Use a Wheelchair?: No Wheel 50 ft with 2 turns (QC): 9 Wheel 150 ft (QC): 9 Stair Training Stair Training: Handrails/: 2 handrails #of Steps: 4 1 Step (curb) (QC): 5 4 Steps (QC): 5 12 Steps (QC): 88 Stairs: Pattern: Step to Balance Picking up an Object (QC): 88 ADL-Treatment Eating (QC): 6 Oral Hygiene (QC): 7 Shower/Bathe Self (QC): 4 Upper Body Dressing (QC): 5 Lower Body Dressing (QC): 4 On/Off Footwear (QC): 4 Toileting Hygiene (QC): 4 Assessment/Plan Assessment and Plan Assess & Plan/Chief Complaint Assessment: COPD myopathy Asthma/COPD with current acute exacerbation Left lower lobe pneumonia facility acquired Debility Recurrence of atrial fibrillation status post ablations in process of seeing Dr. 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 prednisone tomorrow (1) Myopathy (2) SIRS (systemic inflammatory response syndrome) (3) Pneumonia (4) Chronic diastolic heart failure (5) Persistent atrial fibrillation (6) ADOLPH on CPAP Status: Chronic (7) Insomnia Status: Chronic (8) Anxiety Status: Chronic (9) Mixed hyperlipidemia ANAY DARNELL DO May 08, 2021 11:43
--- NOTE | 2021-05-08 11:43 | Individualized Plan of Care ---
Individualized Plan of Care Rehab Nursing IPOC Order Admission Date May 07, 2021 at 11:11 Current Orders Orders Admission Order(Inpt,Obs,Sdc) (05/07/21 10:22) Vital Signs: Per Unit Policy ( 08,16,00 (05/07/21 10:22) Cement Or Concrete Finishing Supervisor-Inpt Rehab Con (05/07/21 10:22) Rehab Nursing Orders-Ipoc (05/07/21 10:22) Physical Therapy Rehab Orders (05/07/21 10:22) Occupational Therapy Rehab Ord (05/07/21 10:22) Speech Therapy Rehab Orders (05/07/21 10:22) Cbc With Automated Diff (05/08/21 06:00) Comprehensive Metabolic Panel (05/08/21 06:00) Precautions (Aru) (05/07/21 10:22) Rehab-Intensity Of Therapy (05/07/21 10:22) Initiate Admission Nursing Pro .admission (05/07/21 10:22) Alprazolam Tablet (Xanax Tablet) (05/07/21 10:30) Calcium Carbonate Chew Tablet (Antacid C (05/07/21 10:30) Diphenhydramine Tablet (Benadryl Tablet) (05/07/21 10:30) Docusate Sodium Capsule (Colace Capsule) (05/07/21 21:00) Docusate Sodium Capsule (Colace Capsule) (05/07/21 10:30) Bisacodyl Suppository (Dulcolax Supposit (05/07/21 10:30) Lactulose Oral Solution (Enulose Oral So (05/07/21 10:30) Na Phos/Na Biphos Enema (Fleet Enema [place] (05/07/21 10:30) Guaifenesin/Codeine Syrup (Robitussin Ac (05/07/21 10:30) Loperamide Tablet (Imodium Tablet) (05/07/21 10:30) Melatonin Tablet (Melatonin Tablet) (05/07/21 10:30) Polyethylene Glycol Powder Pkt (Miralax (05/07/21 21:00) Ondansetron Oral Dissolve Tab (Zofran (05/07/21 10:30) Senna S Tablet (Senokot S Tablet) (05/07/21 21:00) Initiate Admission Nursing Pro .admission (05/07/21 10:22) General/Regular (05/07/21 Lunch) Transfer - Bed/Room/Location (05/07/21 11:11) Patient Visit (05/07/21 ) Pt Eval Moderate Complexity (05/07/21 ) Functional Activities, Ea 15 (05/07/21 ) Patient Visit (05/07/21 ) Exercise Therap, Ea 15 Min (05/07/21 ) Gait Training, Ea 15 Min (05/07/21 ) Albuterol Pre-Mix Nebs (Rt) (Proventil (05/07/21 18:15) Alprazolam Tablet (Xanax Tablet) (05/07/21 18:15) Amlodipine Tablet (Norvasc Tablet) (05/08/21 09:00) Apixaban Tablet (Eliquis Tablet) (05/07/21 21:00) Atorvastatin Tablet (Lipitor Tablet) (05/07/21 21:00) Diltiazem Cd 24 Hr Capsule (Cardizem Cd (05/07/21 21:00) Docusate Sodium Capsule (Colace Capsule) (05/07/21 18:15) Doxazosin Tablet (Cardura Tablet) (05/07/21 21:00) Fluticasone Nasal Lamar (Flonase Nasal S (05/07/21 18:15) Furosemide Tablet (Lasix Tablet) (05/07/21 18:15) Albuterol/Ipra Inhalation Soln (Duoneb I (05/07/21 21:00) Lisinopril Tablet (Zestril Tablet) (05/08/21 09:00) Loratadine Tablet (Claritin Tablet) (05/08/21 09:00) Metoprolol Succinate (Xl) Tab (Toprol Xl (05/07/21 21:00) Montelukast Tablet (Singulair Tablet) (05/07/21 21:00) Sertraline Tablet (Zoloft Tablet) (05/08/21 09:00) Trazodone Tablet (Desyrel Tablet) (05/07/21 21:00) (Nf) Cholecalciferol (Vitamin D3) (Vitam (05/08/21 09:00) (Nf) Estradiol (Estradiol Tablet) (05/08/21 09:00) (Nf) Potassium Chloride (05/07/21 18:15) Svn Small Volume Nebulizer (05/07/21 18:06) Cefepime Injection (Maxipime Injection) (05/07/21 18:15) Methylprednisolone Sod Succ (Solu-Medrol (05/07/21 19:00) Estradiol Tablet (Estrace Tablet) (05/08/21 09:00) Cholecalciferol Capsule/Tablet (Vitamin (05/08/21 09:00) Potassium Chloride (Tablet) (K Dur Table (05/07/21 18:30) Consult Physician (05/07/21 23:06) Patient Visit (05/08/21 ) Functional Activities, Ea 15 (05/08/21 ) Exercise Therap, Ea 15 Min (05/08/21 ) Gait Training, Ea 15 Min (05/08/21 ) Therapeutic, Group (05/08/21 ) Prednisone Tablet (Deltasone Tablet) (05/09/21 07:00) Cefdinir Capsule (Omnicef Capsule) (05/09/21 09:00) Rehab Nursing Orders: Ongoing Assess. of Cognitive Status, Ongoing Assess. of Function Status, Bladder Management, Bladder Scan, Bladder Training, Bowel Management, Bowel Training, Disease Management & Educaiton, DVT Prophylaxis, Fall Prevention, Fluid/Electrolyte/Nutrition Mgmt, Infection Prevention, Medication Management & Education, Management of Risks & Complications, Management of Skin Intergrity, Nutrition Management, Pain Management, Patient/Family Support, Safety Management Intensity of Therapy to be met Patient to be seen: Min.3h per day/5 of 7d PT IPOC Problem List: Activity Tolerance, Functional Strength, Safety, Balance, Gait, Transfer, Bed Mobility, ROM Treatment Plan: Continue Plan of Care Bed Mobility, Education, Functional Activity Sesar, Functional Strength, Group Therapy, Gait, Safety, Therapeutic Exercise, Transfers Treatment Duration: May 28, 2021 Frequency: At least 5 of 7 days/Wk (IRF) Estimated Hrs Per Day: 1.5 hours per day OT IPOC Problems: Decreased Activ Tolerance, Decreased UE Strength, Impaired Self-Care Skills OT Treatment, Training and Edu: Yes Plan of Care: ADL Retraining, Functional Mobility, Group Exercise/Act as Ind, UE Funct Exercise/Act Treatment Duration: May 23, 2021 Frequency: At least 5 of 7 days/Wk (IRF) Estimated Hrs Per Day: 1.[address] IPOC Speech Therapy Treatment Plan: Discontinue ST Treatment Duration: May 08, 2021 Frequency: Modified Program (IRF) Estimated Hrs Per Day: Other Cement Or Concrete Finishing Supervisor/Case Mgmt C[employer] Finishing Supervisor/Case Managemen: Discharge Planning Dietitian/Bail Bondsman Dietitian/Bail Bondsman to monitor nutritional status and make changes and/or recommendations as needed and work with speech pathology on dietary upgrades as the occur. Physician IPOC Medical Issues being managed closely and that require the 24 hour availability of a physician: Recent ER visits x4 and hospital stays x3 due to A. fib with RVR and COPD exacerbation will require aggressive rehab in order to return back to independent living Medical Issues: Bowel/Bladder Function, DVT Prophylaxis, Falls Precautions, Fluid/Electrolyte/Nutrition Balance, Infection Protection, Pain Management Brief Synthesis of Preadmission Screen, Post-Admission Evaluation, and Therapy Evaluations: PT and OT will focus on increasing stamina to assure smooth transition to home to prevent recurrent ER visits and hospital stays Medical Prognosis: Good Anticipated Length of Stay: 5 days ANAY DARNELL DO May 08, 2021 11:43
--- NOTE | 2021-05-08 15:02 | Therapy Group Daily Note ---
Therapy Daily Group Note Patient Education Topic Other List Below (Nutrition & Exercises) Exercises LE Seated Exercise, UE Exercise Session Ratio (pt:therapist): 4:1 Goal of Session: Education on ARU Expectations, UE/LE Strengthing Goal Met for this Session: Yes Pt Benefit of Group: Contributions to Others, F/U Use of Strategies @Home, Increased Functional Safety, Increased Functional Strength, Improved Cognition, Recognition of Peers, Socialization Other/Notes Pt ambulated to [facility] for OT/PT group. Group consisted of introductions (name, place living, favorite fall therapy), socialization, seated UE/LE exercises, and educational topics involving nutrition, exercise. Pt introduced self appropriately, actively listened to peers and complete B UE/LE seated exercises. Pt acknowledged understanding by verbalizing understanding and giving personal stories. Pt participated in a multiple choice question/answer session about educational topics. After session, pt sitting in recliner. Call light/phone in reach. All needs met in room. Start Time: 13:00 Stop Time: 14:00 Total Billed Treatment Time: 60 Total Billed Treatment 1, SUSANA GUERRA LAST PULLER May 08, 2021 15:02
--- NOTE | 2021-05-08 16:44 | ST Cognitive Linguistic Eval ---
Speech Evaluation-General Medical Diagnosis COPD exacerbation Onset Date: May 05, 2021 Therapy Diagnosis Therapy Diagnosis: WNL cognitive-communication Precautions Precautions: Cardiac Referral Referring Physician: Breanna Broderick Reason for Referral: Evaluation/Treatment Medical History Pertinent Medical History: Atrial Fib, DM, HTN Afib, HTN, DM Current History Afib, HTN, DM, COPD Reviewed History: Yes Social History Home: Single Level Current Living Status: Alone Speech PLF-Current Status Prior Level of Function Pt was living in her home, independent with ADLs Subjective Pt was cooperative and pleasant during the evaluation. She was sitting upright, alert in chair Language Eval: Auditory Comprehends Simple Yes/No Ques: Functional Indent/Objects Multiple Tapia: Functional Ident/Pics in Multiple Tapia: Functional Follows 1-Step Commands: Functional Follows Complex Directions: Functional Follows General Conversations: Functional Language Eval: Verbal Language Completes Spontaneous Greeting: Functional Produces Auto, Serial Info: Functional Imitates Simple Words/Phrases: Functional Word Finding: Functional Requests Basic Needs: Functional States Basic Personal Info: Functional Expresses Complex Ideas: Functional Cognitive Patient Orientation Patient was oriented x4 Objective Cognitive Domain Attention: WNL Memory: WNL Problem Solving: Functional Executive Functions: WNL Visuospatial Skills: WNL Composite Severity Rating: WNL Clock Drawing Severity Rating: WNL Score: 27/30 Range: Normal Pt scored WNL for cognitive skills using the [facility] Mental Status ([facility]) Examination Objective Formal/Standardized Tests [facility] Mental Status ([facility]) Examination Results /30 indicates normal cognitive skills. No concerns in cognition at this time. Oral Motor/Speech Production WFL; Able to participate in complex conversation. Appropriate utterance length and 100% intelligibility Impression Pt's cognition is WFL and scored in the normal range. No concerns with cognition at this time. Speech Patient Assess Expression of Ideas/Wants: Expression (4) Understanding Verbal Content: Understands (4) Brief Interview-Mental Status: Yes Repetition of Three Words: Three (3) Temporal Orientation: Year: Correct (3) Temporal Orientation: Month: Accurate within 5 days(2) Temporal Orientation: Day: Correct (1) Recall : Wear to say "Sock": Yes, no cue required (2) Recall : Color: Yes, no cue required (2) Recall : Bed: Yes, no cue required (2) Memory/Recall Ability: Current season, That he or she is in a hsp/hsp unit Speech-Plan Patient/Family Goals Patient/Family Goals: Pt plans to return to home. She lives in [place]. Treatment Plan Speech Therapy Treatment Plan: Discontinue ST Frequency: 1 time per month Estimated Hrs Per Day: Other Rehab Potential: Good Pt/Family Agrees to Plan: Yes Safety Risks/Education Teaching Recipient: Patient Teaching Methods: Discussion Response to Teaching: Verbalize Understanding Education Topics Provided: Results of evaluation and safety at home Time Speech Therapy Time In: 15:50 Speech Therapy Time Out: 16:05 Total Billed Time: 15 Billed Treatment Time 1, SPSNDMILAGROS GOTTI May 08, 2021 16:43
--- NOTE | 2021-05-08 17:25 | Progress Note - Cardiology ---
Cardiology SOAP Progress Note Subjective: No cp or palp or syncope Gen weakness and malaise Shortness of breath with mild to mod activity No n/v/d Objective: I&O/Vital Signs 05/08/21 05/08/21 05/08/21 05/08/21 06:44 08:26 09:00 10:31 Temp 36.3 Pulse 52 56 Resp 20 B/P (MAP) 141/72 (95) Pulse Ox 95 95 O2 Delivery Nasal Cannula Nasal Cannula Nasal Cannula O2 Flow Rate 2.00 2.00 2.00 05/08/21 12:25 Pulse 70 Weight (Pounds): 291 Weight (Ounces): 6.0 Weight (Calculated Kilograms): 132.259969 Constitutional: AAO x 3, well-developed, well-nourished Respiratory: No accessory muscle use; other (good, bilat air entry) Cardiovascular: regular rate-rhythm, S1 and S2, systolic murmur (soft [place] at card base) Gastrointestional: No tender; soft; No guarding, No rebound; audible bowel sounds Extremities: No clubbing, No cyanosis, No significant edema Neurologic/Psychiatric: oriented x 3, other (moves all limbs equally) Skin: No rash on exposed areas, No ulcerations on exposed areas Results/Procedures: Labs Laboratory Tests 05/08/21 06:20: White Blood Count 9.7, Red Blood Count 3.93, Hemoglobin 11.4L, Hematocrit 35, Mean Corpuscular Volume 88, Mean Corpuscular Hemoglobin 29, Mean Corpuscular Hemoglobin Concent 33, Red Cell Distribution Width 13.2, Platelet Count 203, Mean Platelet Volume 9.5, Immature Granulocyte % (Auto) 4, Neutrophils (%) (Auto) 85H, Lymphocytes (%) (Auto) 7L, Monocytes (%) (Auto) 3, Eosinophils (%) (Auto) 0, Basophils (%) (Auto) 0, Neutrophils # (Auto) 8.3H, Lymphocytes # (Auto) 0.7L, Monocytes # (Auto) 0.3, Eosinophils # (Auto) 0.0, Basophils # (Auto) 0.0, Immature Granulocyte # (Auto) 0.4H, Sodium Level 138, Potassium Level 4.4, Chloride Level 106, Carbon Dioxide Level 22, Anion Gap 10, Blood Urea Nitrogen 26H, Creatinine 0.80, Estimat Glomerular Filtration Rate 70, BUN/Creatinine Ratio 33, Glucose Level 219H, Calcium Level 8.8, Corrected Calcium 9.7, Total Bilirubin 0.4, Aspartate Amino Transf (AST/SGOT) 21, Alanine Aminotransferase (ALT/SGPT) 50, Alkaline Phosphatase 125, Total Protein 5.4L, Albumin 2.9L Laboratory Tests 05/08/21 06:20 A/P: Assessment: Progressive dyspnea - Redemonstrated nodular, masslike consolidation in the left midlung which is unchanged per CXR of 05-06-21, managed by Dr Broderick Paroxysmal A fib and typical A flutter - first documented on 09-30-18 at [facility]). Placed on flecainide at [facility] on 09/30/18 - has had typical atrial flutter ablation by Dr Thompson on 01/30/19 - has had ILR placement by Dr Thompson n 04/06/19 - Post a-fib ablation on 05-22-2019 by . Now off flecainide - ILR interrogation of Feb 2021 showed episodes of a-fib with RVR in January - awaiting apptt at [facility] for recurrent a fib at [facility] (Dr Thompson) - OAC with Eliquis CAD - Minor coronary artery disease per cardiac catheterization of July 2006. - MPI of 01/17/15 did not show ischemia or infarction, and LVEF was 54% - Echo 12/16/18 showed LVEF 60-65%, mild MR, RVSP 25 mmHg Abnormal ECG - RBBB, chronic History of bronchial asthma - managed by PCP Hyperlipidemia - being treated and being followed by Dr. Broderick. Glucose intolerance - being managed by Dr. Broderick Hypertension - fairly well controlled Obesity - Elevated body mass index of approximately 44 Chronic diastolic CHF - clinically compensated Carotid dz - Minimal carotid arterial disease on carotid u/s of 03/09/17 H/o mild pulmonary hypertension - probable related to obesity-hypoventilation syndrome due to body habitus, improved since treatment of ADOLPH. Obstructive sleep apnea syndrome - treated with C-PAP therapy. History of overactive bladder and urinary incontinence - S/p botox injection in September 2017 and Mar 2019 by her urologist in [facility] in [place]. Orthopedic - Left knee and R hip replacement. Plan: * Continue current cardiac regimen * Dr Broderick managing pneumonia and pulm issues * Monitor labs from time to time QAMAR GONZALEZ MD FACP [facility] May 08, 2021 17:25
[2021-05-08 20:00] VITALS: BP 131/62
[2021-05-08] MEDS: MONTELUKAST 10 MG (SINGULAIR) TAB PO SCH (21:55)
[2021-05-08] MEDS: traZODone 50 MG (DESYREL) TAB PO SCH (21:55)
[2021-05-08] MEDS: doxAzosin 1 MG (CARDURA) TAB PO SCH (22:04)
[2021-05-08] MEDS: ALPRAZolam 0.25 MG (XANAX) TAB PO PRN (22:05)
[2021-05-09] MEDS: CEFEPIME INJECTION 1,000 MG in WATER (STERILE) FOR INJECTION 10 ML IV SCH (00:11)
[2021-05-09] MEDS: predniSONE 20 MG TAB PO SCH (06:44)
[2021-05-09] MEDS: RT-ALBUTEROL/IPRATROPIUM 3 ML (DUONEB) VIAL INH SCH ×2 (06:50→21:41)
[2021-05-09 08:00] VITALS: BP 134/62
[2021-05-09] MEDS: SENNA W/DOCUSATE (SENOKOT S) TABLET PO SCH ×2 (08:16→20:01)
[2021-05-09] MEDS: VITAMIN D3 125 MCG (5,000 UNITS) CAPSULE PO SCH (08:17)
[2021-05-09] MEDS: DOCUSATE SODIUM 100 MG (COLACE) CAP PO SCH ×2 (08:17→20:01)
[2021-05-09] MEDS: LORATADINE (CLARITIN) 10 MG TAB PO SCH (08:17)
[2021-05-09] MEDS: lisINopril 20 MG (PRINIVIL) TABLET PO SCH (08:17)
[2021-05-09] MEDS: ESTRADIOL 1 MG TAB (ESTRACE) PO SCH (08:17)
[2021-05-09] MEDS: SERTRALINE 100 MG (ZOLOFT) TAB PO SCH (08:17)
[2021-05-09] MEDS: APIXABAN 5 MG (ELIQUIS) TABLET PO SCH ×2 (08:17→20:00)
[2021-05-09] MEDS: amLODIPine 10 MG (NORVASC) TAB PO SCH (08:17)
[2021-05-09] MEDS: CEFDINIR 300 MG (OMNICEF) CAP PO SCH ×2 (08:18→20:00)
[2021-05-09] MEDS: polyethylene glycoL POWDER 17 GM (MIRALAX) PACK PO SCH ×2 (08:18→20:01)
--- NOTE | 2021-05-09 08:52 | Occupational Ther Daily Note ---
OT Current Status-Daily Note Subjective Pt alert, sitting in chair when therapy entered. Pt agreed to therapy. No c/o pain reported. Mental Status/Objective Patient Orientation: Person, Place, Time, Situation Attachments: IV, Oxygen, Telemetry ADL-Treatment Pt agreed to take shower. Throughout session, pt required vc for oxygen tubing. Pt ambulated to closet using FWW to retrieve UB/LB dressing independently. Pt ambulated to shower and transferred to shower bench using FWW independently. While seated at shower bench pt doffed UB dressing. Pt sit-stand from shower bench using grab bars to doff LB dressing independently. Once seated, pt threaded B LE out of LB dressing. Pt cleansed/dried UB, LB, chest, abdomen, buttocks, and ollie parts independently. Pt required shower bench, grab bars, and hand held shower head to complete shower independently. Pt donned UB dressing independently. Pt threaded B LE through LB dressing. Sit-stand from chair to FWW to hike LB dressing independently. Pt completed oral hygiene and hair brushing/drying independently while seated in w/c due to decreased standing tolerance. Therapy Code Descriptions/Definitions Functional [place] Measure: 0=Not Assessed/NA 4=Minimal Assistance 1=Total Assistance 5=Supervision or Setup 2=Maximal Assistance 6=Modified [place] 3=Moderate Assistance 7=Complete IndependenceSCALE: Activities may be completed with or without assistive devices. 4-Gdhronhthz-xriaogn completes the activity by him/herself with no assistance from a helper. 5-Set-up or Clean-up Assistance-helper sets up or cleans up; patient completes activity. [place] assists only prior to or following the activity. 4-Supervision or Touching Assistance-helper provides verbal cues and/or touching/steadying and/or contact guard assistance as patient completes activity. Assistance may be provided throughout the activity or intermittently. 3-Partial/Moderate Assistance-helper does LESS THAN HALF the effort. [place] lifts, holds or supports trunk or limbs, but provides less than half the effort. 2-Substantial/Maximal Assistance-helper does MORE THAN HALF the effort. [place] lifts or holds trunk or limbs and provides more than half the effort. 4-Tajdmwtrs-kzcehl does ALL the effort. Patient does none of the effort to complete the activity. Or, the assistance of 2 or more helpers is required for the patient to complete the activity. If activity was not attempted, code reason: 7-Patient Refused. 9-Not Applicable-not attempted and the patient did not perform the activity before the current illness, exacerbation or injury. 10-Not Attempted due to Environmental Limitations-(lack of equipment, weather restraints, etc.). 88-Not Attempted due to Medical Conditions or Safety Concerns. Other Treatment Skilled instruction required of BUE green theraband exercises. Pt completed x2 sets of 10 reps of BUE green theraband in all planes while seated in recliner to increase activity tolerance for safe and functional daily task. Pt required resting break during exercise due to fatigue and low endurance. After session, pt sitting in recliner. All needs met and call light in reach. Education OT Patient Education: Energy conservation, Exercise program, Home exercise program Teaching Recipient: Patient Teaching Methods: Demonstration, Discussion Response to Teaching: Verbalize Understanding, Return Demonstration OT Short Term Goals Short Term Goals Time Frame: May 14, 2021 Oral hygiene: 5 Toileting hygiene: 5 Shower/bathe self: 5 Upper body dressin Lower body dressin OT Cream Dumper Goals Cream Dumper Goals Time Frame: May 23, 2021 Eating (QC): 6 Oral Hygiene (QC): 6 Toileting Hygiene (QC): 6 Shower/Bathe Self (QC): 6 Upper Body Dressing (QC): 6 Lower Body Dressing (QC): 6 On/Off Footwear (QC): 6 Additional Goals: 1-Demonstrate ADL Tasks, 2-Verbalize Understanding, 3- ImproveStrength/Sesar 1=Demonstrate adherence to instructed precautions during ADL tasks. 2=Patient will verbalize/demonstrate understanding of assistive devices/modifications for ADL. 3=Patient will improve strength/tolerance for activity to enable patient to perform ADL's. OT Education/Plan Problem List/Assessment Assessment: Decreased Activ Tolerance, Decreased UE Strength, Impaired Self- Care Skills Discharge Recommendations Plan/Recommendations: Continue POC Treatment Plan/Plan of Care Patient would benefit from OT for education, treatment and training to promote independence in ADL's, mobility, safety and/or upper extremity function for ADL's. Plan of Care: ADL Retraining, Functional Mobility, Group Exercise/Act as Ind, UE Funct Exercise/Act Treatment Duration: May 23, 2021 Frequency: At least 5 of 7 days/Wk (IRF) Estimated Hrs Per Day: 1.5 hours per day Rehab Potential: Good Time/GCodes Start Time: 08:00 Stop Time: 09:00 Total Time Billed (hr/min): 60 Billed Treatment Time 1 visit- ADL 3 (45 mins) EX 1 (15 mins) 60 mins SHARONA TERAN May 09, 2021 08:52
--- NOTE | 2021-05-09 10:01 | Physical Therapy Daily Note ---
PT Daily Note-Current Subjective Pt in recliner upon arrival and agrees to tx. Pt has no c/o pain at this time. Mental Status Patient Orientation: Person, Place, Time, Situation Transfers SCALE: Activities may be completed with or without assistive devices. 6-Wiwfbvendp-eqwewym completes the activity by him/herself with no assistance from a helper. 5-Set-up or Clean-up Assistance-helper sets up or cleans up; patient completes activity. [place] assists only prior to or following the activity. 4-Supervision or Touching Assistance-helper provides verbal cues and/or touching/steadying and/or contact guard assistance as patient completes activity. Assistance may be provided throughout the activity or intermittently. 3-Partial/Moderate Assistance-helper does LESS THAN HALF the effort. [place] lifts, holds or supports trunk or limbs, but provides less than half the effort. 2-Substantial/Maximal Assistance-helper does MORE THAN HALF the effort. [place] lifts or holds trunk or limbs and provides more than half the effort. 6-Zzvhzwans-fveuga does ALL the effort. Patient does none of the effort to complete the activity. Or, the assistance of 2 or more helpers is required for the patient to complete the activity. If activity was not attempted, code reason: 7-Patient Refused. 9-Not Applicable-not attempted and the patient did not perform the activity before the current illness, exacerbation or injury. 10-Not Attempted due to Environmental Limitations-(lack of equipment, weather restraints, etc.). 88-Not Attempted due to Medical Conditions or Safety Concerns. Sit to Stand (QC): 5 Weight Bearing Full Weight Bearing Full Weight Bearing Gait Training Does the Patient Walk?: Yes Distance: 200' Walk 10 feet (QC): 4 Walk 50 ft with 2 Turns(QC): 4 Walk 150 ft (QC): 4 Gait Persons Needed: 1 Gait Assistive Device: Cane Single Point Pt introduced to SPC for amb today, pt states she uses one at home but is "wobbly" at times. CGA pt able to amb 200' w/o any LOB. Exercises NuStep Minutes: 20 NuStep Workload: 4 Treatments Pt sit to stand from recliner and amb to bathroom SBA w/ FWW. Pt amb to therapy gym and completes NuStep on WL of 4 for 20 minutes. Pt attempts amb w/ SPC, pt able to do so safely. Pt has slightly unsteady gait, CGA required. Pt returns to recliner in room and is left with all needs met, call light in hand. Assessment Current Status: Good Progress Pt introduced to SPC, would suggest to use FWW w/ nursing for now and when pt feels fatigued for safety. Will cont. to use SPC in tx PT Short Term Goals Short Term Goals Time Frame: May 14, 2021 Roll Left & Right: 6 Sit to lyin Lying to sitting on side of be: 6 Sit to stand: 4 (SBA) Chair/ffc-il-rfmof transfer: 4 (SBA) Walk 10 feet: 4 (SBA) Walk 50 feet with two turns: 4 (SBA) Walk 150 feet: 4 (SBA) PT Adult Educator Goals Adult Educator Goals PT Adult Educator Goals Time Frame: May 28, 2021 Roll Left & Right (QC): 6 Sit to Lying (QC): 6 Lying-Sitting on Side/Bed(QC): 6 Sit to Stand (QC): 6 Chair/Pzn-rl-Uxsgi Xfer(QC): 6 Toilet Transfer (QC): 6 Car Transfer (QC): 6 Does the Patient Walk: Yes Walk 10 feet (QC): 6 Walk 50ft with 2 Turns (QC): 6 Walk 150 ft (QC): 6 Walking 10ft on Uneven Surface: 6 1 Step (curb) (QC): 4 4 Steps (QC): 4 12 Steps (QC): 88 Picking up an Object (QC): 4 Wheel 50 feet with 2 turns (QC: 9 Wheel 150 feet: 9 PT Plan Treatment/Plan Treatment Plan: Continue Plan of Care Treatment Plan: Bed Mobility, Education, Functional Activity Sesar, Functional Strength, Group Therapy, Gait, Safety, Therapeutic Exercise, Transfers Treatment Duration: May 28, 2021 Frequency: At least 5 of 7 days/Wk (IRF) Estimated Hrs Per Day: 1.5 hours per day Patient and/or Family Agrees t: Yes Time/GCodes Time In: 900 Time Out: 1000 Total Billed Treatment Time: 60 Total Billed Treatment 1, FA, EX, GT x2 COOL,KYRIE DIRECTOR CORPORATE May 09, 2021 10:01
--- NOTE | 2021-05-09 11:29 | PM&R Progress Note ---
Subjective HPI/CC On Admission Date Seen by Provider: May 09, 2021 Time Seen by Provider: 11:00 Subjective/Events-last exam 05/09/2021: Patient doing really well Change dose of her steroids and antibiotics to p.o. She rescheduled her appointment with Dr. Hoyt for 2 weeks later Check meds and labs Wednesday discharge 05/08/2021: Patient doing very well Settling in well No wheezing today Lasix will be given due to fluid retention Wants to reschedule consultation appoint with Dr. Hoyt at until she is fully recovered because of the long ride back and forth Dr. Ang is in agreement with this plan Check meds and labs Maintain on antibiotics Review of Systems General: Fatigue Pulmonary: Dyspnea Objective Exam Vital Signs Vital Signs Date Time Temp Pulse Resp B/P (MAP) Pulse Ox O2 Delivery O2 Flow Rate FiO2 05/10/21 01:00 42 05/09/21 21:00 Nasal Cannula 2.00 05/09/21 20:00 36.2 20 162/69 (100) 96 Capillary Refill : General Appearance: No Apparent Distress, WD/WN, Anxious, Chronically ill, Obese HEENT: PERRL/EOMI, Normal ENT Inspection, Pharynx Normal Neck: Full Range of Motion, Normal Inspection, Non Tender, Supple, Carotid Bruit Respiratory: Chest Non Tender, Lungs Clear, No Accessory Muscle Use, No Respiratory Distress, Wheezing (Subtle upper respiratory) Cardiovascular: No Edema, No Gallop, No JVD, No Murmur, Normal Peripheral Pulses, Irregularly Irregular, Tachycardia Gastrointestinal: Normal Bowel Sounds, No Organomegaly, No Pulsatile Mass, Non Tender, Soft Back: Normal Inspection, No CVA Tenderness, No Vertebral Tenderness Extremity: Normal Capillary Refill, Normal Inspection, Normal Range of Motion, Non Tender, No Calf Tenderness, No Pedal Edema Neurologic/Psychiatric: Alert, Oriented x3, Normal Mood/Affect, admissions clinician II-XII Norm as Tested, Abnormal Gait, Motor Weakness (Generalized 4/5) Skin: Normal Color, Warm/Dry Lymphatic: No Adenopathy Results/Procedures Lab Patient resulted labs reviewed. FIM Transfers Therapy Code Descriptions/Definitions Functional [place] Measure: 0=Not Assessed/NA 4=Minimal Assistance 1=Total Assistance 5=Supervision or Setup 2=Maximal Assistance 6=Modified [place] 3=Moderate Assistance 7=Complete IndependenceSCALE: Activities may be completed with or without assistive devices. 7-Axzktpwsyv-bfpktue completes the activity by him/herself with no assistance from a helper. 5-Set-up or Clean-up Assistance-helper sets up or cleans up; patient completes activity. [place] assists only prior to or following the activity. 4-Supervision or Touching Assistance-helper provides verbal cues and/or touching/steadying and/or contact guard assistance as patient completes activity. Assistance may be provided throughout the activity or intermittently. 3-Partial/Moderate Assistance-helper does LESS THAN HALF the effort. [place] lifts, holds or supports trunk or limbs, but provides less than half the effort. 2-Substantial/Maximal Assistance-helper does MORE THAN HALF the effort. [place] lifts or holds trunk or limbs and provides more than half the effort. 1-Xlhzhyixj-rrgxuf does ALL the effort. Patient does none of the effort to complete the activity. Or, the assistance of 2 or more helpers is required for the patient to complete the activity. If activity was not attempted, code reason: 7-Patient Refused. 9-Not Applicable-not attempted and the patient did not perform the activity before the current illness, exacerbation or injury. 10-Not Attempted due to Environmental Limitations-(lack of equipment, weather restraints, etc.). 88-Not Attempted due to Medical Conditions or Safety Concerns. Roll Left to Right (QC): 6 Sit to Lying (QC): 6 Sit to Stand (QC): 5 Chair/Yse-bb-Czkgh Xfer(QC): 4 Car Transfer (QC): 4 Gait Training Does the Patient Walk?: Yes Distance: 200' Walk 10 feet (QC): 4 Walk 50 ft with 2 Turns(QC): 4 Walk 150 ft (QC): 4 Walking 10ft/uneven surface-QC: 4 Gait Persons Needed: 1 Gait Assistive Device: Cane Single Point Wheelchair Training Does the Pt Use a Wheelchair?: No Wheel 50 ft with 2 turns (QC): 9 Wheel 150 ft (QC): 9 Stair Training Stair Training: Handrails/: 2 handrails #of Steps: 4 1 Step (curb) (QC): 5 4 Steps (QC): 5 12 Steps (QC): 88 Stairs: Pattern: Step to Balance Picking up an Object (QC): 88 ADL-Treatment Eating (QC): 6 Oral Hygiene (QC): 7 Shower/Bathe Self (QC): 4 Upper Body Dressing (QC): 5 Lower Body Dressing (QC): 4 On/Off Footwear (QC): 4 Toileting Hygiene (QC): 4 Assessment/Plan Assessment and Plan Assess & Plan/Chief Complaint Assessment: COPD myopathy Asthma/COPD with current acute exacerbation Left lower lobe pneumonia facility acquired Debility Recurrence of atrial fibrillation status post ablations in process of seeing Dr. 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 prednisone tomorrow 05/09/2021: Maintain oral antibiotic and prednisone Monitor telemetry (1) Myopathy (2) SIRS (systemic inflammatory response syndrome) (3) Pneumonia (4) Chronic diastolic heart failure (5) Persistent atrial fibrillation (6) ADOLPH on CPAP Status: Chronic (7) Insomnia Status: Chronic (8) Anxiety Status: Chronic (9) Mixed hyperlipidemia ANAY DARNELL DO May 09, 2021 11:29
--- NOTE | 2021-05-09 14:05 | Occupational Ther Daily Note ---
OT Current Status-Daily Note Subjective Pt alert, sitting in recliner when therapy entered. Pt agreed to therapy. No c/o pain reported. Mental Status/Objective Patient Orientation: Person, Place, Time, Situation Attachments: IV, Oxygen, Telemetry ADL-Treatment Therapy Code Descriptions/Definitions Functional [place] Measure: 0=Not Assessed/NA 4=Minimal Assistance 1=Total Assistance 5=Supervision or Setup 2=Maximal Assistance 6=Modified [place] 3=Moderate Assistance 7=Complete IndependenceSCALE: Activities may be completed with or without assistive devices. 4-Edkhedvtku-iakgrkb completes the activity by him/herself with no assistance from a helper. 5-Set-up or Clean-up Assistance-helper sets up or cleans up; patient completes activity. [place] assists only prior to or following the activity. 4-Supervision or Touching Assistance-helper provides verbal cues and/or touching/steadying and/or contact guard assistance as patient completes activity. Assistance may be provided throughout the activity or intermittently. 3-Partial/Moderate Assistance-helper does LESS THAN HALF the effort. [place] lifts, holds or supports trunk or limbs, but provides less than half the effort. 2-Substantial/Maximal Assistance-helper does MORE THAN HALF the effort. [place] lifts or holds trunk or limbs and provides more than half the effort. 7-Bjrkkmxyo-gjmjvw does ALL the effort. Patient does none of the effort to complete the activity. Or, the assistance of 2 or more helpers is required for the patient to complete the activity. If activity was not attempted, code reason: 7-Patient Refused. 9-Not Applicable-not attempted and the patient did not perform the activity before the current illness, exacerbation or injury. 10-Not Attempted due to Environmental Limitations-(lack of equipment, weather restraints, etc.). 88-Not Attempted due to Medical Conditions or Safety Concerns. Other Treatment Pt sit-stand from recliner using cane independently. Pt ambulated from room to gym using cane independently. Once in gym, pt searched/reached for cones outside [place] located throughout the gym to increase oxygen tubing management and safety in home. Pt required vc for where tubing was. Pt participated in standing tolerance and FM skill task of grasping clothespin of different resistance and placing them on rack while standing. Pt completed task x2 for each UE and required grasping the most resistance with BUE to place on largest rack. Pt requ ired resting break during task due to decrease standing tolerance and fatigue. Pt participated in 10 min of arm bike at min resistance to increase BUE strength for improved independence in ADLs. Pt ambulated back to room using cane independently. Pt transferred to recliner. After therapy, pt sitting in recliner. All needs met and call light in reach. Education OT Patient Education: Energy conservation, Exercise program Teaching Recipient: Patient Teaching Methods: Demonstration, Discussion Response to Teaching: Verbalize Understanding, Return Demonstration OT Short Term Goals Short Term Goals Time Frame: May 14, 2021 Oral hygiene: 5 Toileting hygiene: 5 Shower/bathe self: 5 Upper body dressin Lower body dressin OT Postal Supervisor Goals Half-Way Goals Time Frame: May 23, 2021 Eating (QC): 6 Oral Hygiene (QC): 6 Toileting Hygiene (QC): 6 Shower/Bathe Self (QC): 6 Upper Body Dressing (QC): 6 Lower Body Dressing (QC): 6 On/Off Footwear (QC): 6 Additional Goals: 1-Demonstrate ADL Tasks, 2-Verbalize Understanding, 3- ImproveStrength/Sesar 1=Demonstrate adherence to instructed precautions during ADL tasks. 2=Patient will verbalize/demonstrate understanding of assistive de vices/modifications for ADL. 3=Patient will improve strength/tolerance for activity to enable patient to perform ADL's. OT Education/Plan Problem List/Assessment Assessment: Decreased Activ Tolerance, Decreased UE Strength, Impaired Self- Care Skills Discharge Recommendations Plan/Recommendations: Continue POC Treatment Plan/Plan of Care Patient would benefit from OT for education, treatment and training to promote independence in ADL's, mobility, safety and/or upper extremity function for ADL's. Plan of Care: ADL Retraining, Functional Mobility, Group Exercise/Act as Ind, UE Funct Exercise/Act Treatment Duration: May 23, 2021 Frequency: At least 5 of 7 days/Wk (IRF) Estimated Hrs Per Day: 1.5 hours per day Rehab Potential: Good Time/GCodes Start Time: 13:00 Stop Time: 13:30 Total Time Billed (hr/min): 30 Billed Treatment Time 1 visit- FA 1 (20 mins) EX 1(10 mins) 30 mins SHARONA TERAN May 09, 2021 14:05
--- NOTE | 2021-05-09 14:58 | Physical Therapy Daily Note ---
PT Daily Note-Current Subjective Pt in recliner upon arrival and agrees to tx. Pt has no c/o pain and states she thinks the will be leaving on Wednesday. Mental Status Patient Orientation: Person, Place, Time, Situation Transfers SCALE: Activities may be completed with or without assistive devices. 1-Dppwfigavz-dbbepvd completes the activity by him/herself with no assistance from a helper. 5-Set-up or Clean-up Assistance-helper sets up or cleans up; patient completes activity. [place] assists only prior to or following the activity. 4-Supervision or Touching Assistance-helper provides verbal cues and/or touching/steadying and/or contact guard assistance as patient completes activity. Assistance may be provided throughout the activity or intermittently. 3-Partial/Moderate Assistance-helper does LESS THAN HALF the effort. [place] lifts, holds or supports trunk or limbs, but provides less than half the effort. 2-Substantial/Maximal Assistance-helper does MORE THAN HALF the effort. [place] lifts or holds trunk or limbs and provides more than half the effort. 1-Ymsenksks-cavamt does ALL the effort. Patient does none of the effort to complete the activity. Or, the assistance of 2 or more helpers is required for the patient to complete the activity. If activity was not attempted, code reason: 7-Patient Refused. 9-Not Applicable-not attempted and the patient did not perform the activity before the current illness, exacerbation or injury. 10-Not Attempted due to Environmental Limitations-(lack of equipment, weather restraints, etc.). 88-Not Attempted due to Medical Conditions or Safety Concerns. Sit to Stand (QC): 5 Weight Bearing Full Weight Bearing Full Weight Bearing Gait Training Does the Patient Walk?: Yes Distance: 200', 150' Walk 10 feet (QC): 4 Walk 50 ft with 2 Turns(QC): 4 Walk 150 ft (QC): 4 Gait Persons Needed: 1 Gait Assistive Device: Cane Single Point Pt more stable with SPC in PM tx, advised pt to use at home until she gains more strength Stair Training Stair Training: Handrails/: 2 handrails #of Steps: 4 1 Step (curb) (QC): 4 4 Steps (QC): 4 Stairs: Pattern: Step to Pt states she has 3 steps at home with 2 hand rails, completed stair training SBA and VC for sequencing of LE Treatments Pt amb 200' w/ SPC on ARU and to therapy gym for a seated rest break. Pt completes stair training, then has seated rest break. Pt completes balance activities in // bars on Air Ex, pt holds static stance 1 minute SBA, closes eyes 1 minute, weight shifts with eyes closed 1 minute, and another 1 minute with eyes open, all requiring CGA/SBA. Post seated rest break, pt steps back onto AirEx for a dynamic balance activity, reaching w/ B UE in all planes and across midline. Pt performs activity for 8 minutes in total, with a rest break half way through. Pt had slight LOB twice, but self corrected each time. Pt amb back to room and returns to recliner with all needs met, call light in hand. Assessment Current Status: Good Progress Pt expressed concern for balance in am tx, but pt able to complete balance activities SBA/CGA w/ only 2 occurrences of LOB that were both self corrected. Pt more stable w/ SPC, PT suggest pt use SPC at home until pt gains more strength PT Short Term Goals Short Term Goals Time Frame: May 14, 2021 Roll Left & Right: 6 Sit to lyin Lying to sitting on side of be: 6 Sit to stand: 4 (SBA) Chair/qjv-lc-begiq transfer: 4 (SBA) Walk 10 feet: 4 (SBA) Walk 50 feet with two turns: 4 (SBA) Walk 150 feet: 4 (SBA) PT Metal Smelter Goals Metal Smelter Goals PT Metal Smelter Goals Time Frame: May 28, 2021 Roll Left & Right (QC): 6 Sit to Lying (QC): 6 Lying-Sitting on Side/Bed(QC): 6 Sit to Stand (QC): 6 Chair/Dzy-vo-Esetj Xfer(QC): 6 Toilet Transfer (QC): 6 Car Transfer (QC): 6 Does the Patient Walk: Yes Walk 10 feet (QC): 6 Walk 50ft with 2 Turns (QC): 6 Walk 150 ft (QC): 6 Walking 10ft on Uneven Surface: 6 1 Step (curb) (QC): 4 4 Steps (QC): 4 12 Steps (QC): 88 Picking up an Object (QC): 4 Wheel 50 feet with 2 turns (QC: 9 Wheel 150 feet: 9 PT Plan Treatment/Plan Treatment Plan: Continue Plan of Care Treatment Plan: Bed Mobility, Education, Functional Activity Sesar, Functional Strength, Group Therapy, Gait, Safety, Therapeutic Exercise, Transfers Treatment Duration: May 28, 2021 Frequency: At least 5 of 7 days/Wk (IRF) Estimated Hrs Per Day: 1.5 hours per day Patient and/or Family Agrees t: Yes Time/GCodes Time In: 1400 Time Out: 1430 Total Billed Treatment Time: 30 Total Billed Treatment 1, GT, NM KYRIE COOL LEADERSHIP RECRUITER May 09, 2021 14:58
[2021-05-09 20:00] VITALS: BP 162/69
[2021-05-09] MEDS: MONTELUKAST 10 MG (SINGULAIR) TAB PO SCH (20:00)
[2021-05-09 21:11] VITALS: BP 162/69
[2021-05-09] MEDS: doxAzosin 1 MG (CARDURA) TAB PO SCH (22:00)
[2021-05-09] MEDS: traZODone 50 MG (DESYREL) TAB PO SCH (22:00)
[2021-05-09] MEDS ORDERED: SALINE NASAL SPRAY (OCEAN) 45 ML BTL PRN (22:00)
[2021-05-09] MEDS: ALPRAZolam 0.25 MG (XANAX) TAB PO PRN (22:01)
[2021-05-09] MEDS ORDERED: CATHETER FLUSH 10 ML SYR IV PRN (22:15)
[2021-05-10] MEDS: predniSONE 20 MG TAB PO SCH (06:21)
[2021-05-10] MEDS: CATHETER FLUSH 10 ML SYR IV SCH ×2 (06:22→14:19)
[2021-05-10] MEDS: RT-ALBUTEROL/IPRATROPIUM 3 ML (DUONEB) VIAL INH SCH ×2 (07:39→21:13)
[2021-05-10 08:28] VITALS: BP 126/58
[2021-05-10] MEDS: LORATADINE (CLARITIN) 10 MG TAB PO SCH (09:05)
[2021-05-10] MEDS: ESTRADIOL 1 MG TAB (ESTRACE) PO SCH (09:05)
[2021-05-10] MEDS: amLODIPine 10 MG (NORVASC) TAB PO SCH (09:06)
[2021-05-10] MEDS: CEFDINIR 300 MG (OMNICEF) CAP PO SCH ×2 (09:07→21:52)
[2021-05-10] MEDS: VITAMIN D3 125 MCG (5,000 UNITS) CAPSULE PO SCH (09:07)
[2021-05-10] MEDS: APIXABAN 5 MG (ELIQUIS) TABLET PO SCH ×2 (09:07→21:52)
[2021-05-10] MEDS: SERTRALINE 100 MG (ZOLOFT) TAB PO SCH (09:07)
[2021-05-10] MEDS: SENNA W/DOCUSATE (SENOKOT S) TABLET PO SCH ×2 (09:08→22:31)
[2021-05-10] MEDS: polyethylene glycoL POWDER 17 GM (MIRALAX) PACK PO SCH ×2 (09:08→22:31)
[2021-05-10] MEDS: DOCUSATE SODIUM 100 MG (COLACE) CAP PO SCH ×2 (09:08→22:31)
[2021-05-10] MEDS: lisINopril 20 MG (PRINIVIL) TABLET PO SCH (09:11)
--- NOTE | 2021-05-10 09:29 | Physical Therapy Daily Note ---
PT Daily Note-Current Subjective Patient in recliner pre tx, agrees to PT, has no complaints of pain. Patient may be discharging tomorrow. Appearance Patient in recliner post tx with nurse call, phone, tray, all needs met. Patient will be independent in her room using a rolling walker, nurse notified, recommended patient use the walker instead of the cane for stability and to watch her O2 line. Mental Status Patient Orientation: Person, Place, Situation Attachments: Oxygen Transfers SCALE: Activities may be completed with or without assistive devices. 1-Cqycsjujpv-fkshgzl completes the activity by him/herself with no assistance from a helper. 5-Set-up or Clean-up Assistance-helper sets up or cleans up; patient completes activity. [place] assists only prior to or following the activity. 4-Supervision or Touching Assistance-helper provides verbal cues and/or dez robina/steadying and/or contact guard assistance as patient completes activity. Assistance may be provided throughout the activity or intermittently. 3-Partial/Moderate Assistance-helper does LESS THAN HALF the effort. [place] lifts, holds or supports trunk or limbs, but provides less than half the effort. 2-Substantial/Maximal Assistance-helper does MORE THAN HALF the effort. [place] lifts or holds trunk or limbs and provides more than half the effort. 0-Ophgbabfm-rcptar does ALL the effort. Patient does none of the effort to complete the activity. Or, the assistance of 2 or more helpers is required for the patient to complete the activity. If activity was not attempted, code reason: 7-Patient Refused. 9-Not Applicable-not attempted and the patient did not perform the activity before the current illness, exacerbation or injury. 10-Not Attempted due to Environmental Limitations-(lack of equipment, weather restraints, etc.). 88-Not Attempted due to Medical Conditions or Safety Concerns. Roll Left & Right (QC): 6 Sit to Lying (QC): 6 Lying to Sitting/Side of Bed(Q: 6 Sit to Stand (QC): 6 Chair/Hzk-qa-Rurwz Xfer(QC): 6 Toilet Transfer (QC): 6 Car Transfer (QC): 4 Patient performs bed mobility and supine <-> sit with independence, independent with sit <-> stand and transfers, SBA for car transfer. Weight Bearing Full Weight Bearing Full Weight Bearing Gait Training Distance: 150'x2 Walk 10 feet (QC): 6 Walk 50 ft with 2 Turns(QC): 6 Walk 150 ft (QC): 6 Walking 10ft/uneven surface-QC: 4 Gait Assistive Device: FWW Patient ambulates 150' with a single point cane with independence (including 50' with at least 2 turns of 90 degrees but needs SBA for 10' over an uneven surface). Patient ambulates very slowly. Wheelchair Training Does the Pt Use a Wheelchair?: No Stair Training Stair Training: Handrails/: 2 handrails #of Steps: 4 1 Step (curb) (QC): 4 4 Steps (QC): 4 12 Steps (QC): 88 Stairs: Pattern: Step to Balance Picking up an Object (QC): 4 Treatments bed mobility and transfer training, ambulation, stair training Assessment Current Status: Fair Progress good progress during her stay PT Short Term Goals Short Term Goals Time Frame: May 14, 2021 Roll Left & Right: 6 Sit to lyin Lying to sitting on side of be: 6 Sit to stand: 4 (SBA) Chair/ygy-wa-wvlfv transfer: 4 (SBA) Walk 10 feet: 4 (SBA) Walk 50 feet with two turns: 4 (SBA) Walk 150 feet: 4 (SBA) PT Fdc Goals Fdc Goals PT Fdc Goals Time Frame: May 28, 2021 Roll Left & Right (QC): 6 Sit to Lying (QC): 6 Lying-Sitting on Side/Bed(QC): 6 Sit to Stand (QC): 6 Chair/Bfh-zn-Izzgp Xfer(QC): 6 Toilet Transfer (QC): 6 Car Transfer (QC): 6 Does the Patient Walk: Yes Walk 10 feet (QC): 6 Walk 50ft with 2 Turns (QC): 6 Walk 150 ft (QC): 6 Walking 10ft on Uneven Surface: 6 1 Step (curb) (QC): 4 4 Steps (QC): 4 12 Steps (QC): 88 Picking up an Object (QC): 4 Wheel 50 feet with 2 turns (QC: 9 Wheel 150 feet: 9 PT Plan Problem List Problem List: Activity Tolerance, Functional Strength, Safety, Balance, Gait, Transfer, ROM Treatment/Plan Treatment Plan: Continue Plan of Care Treatment Plan: Bed Mobility, Education, Functional Activity Sesar, Functional Strength, Group Therapy, Gait, Safety, Therapeutic Exercise, Transfers Treatment Duration: May 28, 2021 Frequency: At least 5 of 7 days/Wk (IRF) Estimated Hrs Per Day: 1.5 hours per day Patient and/or Family Agrees t: Yes Safety Risks/Education Patient Education: Gait Training, Transfer Techniques, Steps, Correct Positioning, Safety Issues Teaching Recipient: Patient Teaching Methods: Demonstration, Discussion Response to Teaching: Reinforcement Needed Time/GCodes Time In: 899 Time Out: 919 Total Billed Treatment Time: 20 Total Billed Treatment 1 visit FA 20' ABHISHEK THOMAS PT May 10, 2021 09:28
--- NOTE | 2021-05-10 10:20 | PM&R Progress Note ---
Subjective HPI/CC On Admission Date Seen by Provider: May 10, 2021 Time Seen by Provider: 13:00 Subjective/Events-last exam 05/10/2021: Patient ready for discharge tomorrow No major issues Lungs are clear 05/09/2021: Patient doing really well Change dose of her steroids and antibiotics to p.o. She rescheduled her appointment with Dr. Hoyt for 2 weeks later Check meds and labs Wednesday discharge 05/08/2021: Patient doing very well Settling in well No wheezing today Lasix will be given due to fluid retention Wants to reschedule consultation appoint with Dr. Hoyt at until she is fully recovered because of the long ride back and forth Dr. Ang is in agreement with this plan Check meds and labs Maintain on antibiotics Review of Systems General: Fatigue Objective Exam Vital Signs Vital Signs Date Time Temp Pulse Resp B/P (MAP) Pulse Ox O2 Delivery O2 Flow Rate FiO2 05/10/21 21:14 97 Nasal Cannula 2.00 05/10/21 20:00 36.9 56 20 141/69 (93) Capillary Refill : General Appearance: No Apparent Distress, WD/WN, Anxious, Chronically ill, Obese HEENT: PERRL/EOMI, Normal ENT Inspection, Pharynx Normal Neck: Full Range of Motion, Normal Inspection, Non Tender, Supple, Carotid Bruit Respiratory: Chest Non Tender, Lungs Clear, No Accessory Muscle Use, No Respiratory Distress, Wheezing (Subtle upper respiratory) Cardiovascular: No Edema, No Gallop, No JVD, No Murmur, Normal Peripheral Pulses, Irregularly Irregular, Tachycardia Gastrointestinal: Normal Bowel Sounds, No Organomegaly, No Pulsatile Mass, Non Tender, Soft Back: Normal Inspection, No CVA Tenderness, No Vertebral Tenderness Extremity: Normal Capillary Refill, Normal Inspection, Normal Range of Motion, Non Tender, No Calf Tenderness, No Pedal Edema Neurologic/Psychiatric: Alert, Oriented x3, Normal Mood/Affect, stripper color II-XII Norm as Tested, Abnormal Gait, Motor Weakness (Generalized 4/5) Skin: Normal Color, Warm/Dry Lymphatic: No Adenopathy Results/Procedures Lab Patient resulted labs reviewed. FIM Transfers Therapy Code Descriptions/Definitions Functional [place] Measure: 0=Not Assessed/NA 4=Minimal Assistance 1=Total Assistance 5=Supervision or Setup 2=Maximal Assistance 6=Modified [place] 3=Moderate Assistance 7=Complete IndependenceSCALE: Activities may be completed with or without assistive devices. 8-Iocdpzjzbw-tjglkaf completes the activity by him/herself with no assistance from a helper. 5-Set-up or Clean-up Assistance-helper sets up or cleans up; patient completes activity. [place] assists only prior to or following the activity. 4-Supervision or Touching Assistance-helper provides verbal cues and/or touching/steadying and/or contact guard assistance as patient completes activity. Assistance may be provided throughout the activity or intermittently. 3-Partial/Moderate Assistance-helper does LESS THAN HALF the effort. [place] li fts, holds or supports trunk or limbs, but provides less than half the effort. 2-Substantial/Maximal Assistance-helper does MORE THAN HALF the effort. [place] lifts or holds trunk or limbs and provides more than half the effort. 5-Kqfjnsiip-jnezvv does ALL the effort. Patient does none of the effort to complete the activity. Or, the assistance of 2 or more helpers is required for the patient to complete the activity. If activity was not attempted, code reason: 7-Patient Refused. 9-Not Applicable-not attempted and the patient did not perform the activity before the current illness, exacerbation or injury. 10-Not Attempted due to Environmental Limitations-(lack of equipment, weather restraints, etc.). 88-Not Attempted due to Medical Conditions or Safety Concerns. Roll Left to Right (QC): 6 Sit to Lying (QC): 6 Sit to Stand (QC): 6 Chair/Wpz-ck-Abdnr Xfer(QC): 6 Car Transfer (QC): 4 Gait Training Does the Patient Walk?: Yes Distance: 150'x2 Walk 10 feet (QC): 6 Walk 50 ft with 2 Turns(QC): 6 Walk 150 ft (QC): 6 Walking 10ft/uneven surface-QC: 4 Gait Persons Needed: 1 Gait Assistive Device: FWW Wheelchair Training Does the Pt Use a Wheelchair?: No Wheel 50 ft with 2 turns (QC): 9 Wheel 150 ft (QC): 9 Stair Training Stair Training: Handrails/: 2 handrails #of Steps: 4 1 Step (curb) (QC): 4 4 Steps (QC): 4 12 Steps (QC): 88 Stairs: Pattern: Step to Balance Picking up an Object (QC): 4 ADL-Treatment Eating (QC): 6 Oral Hygiene (QC): 7 Shower/Bathe Self (QC): 4 Upper Body Dressing (QC): 5 Lower Body Dressing (QC): 4 On/Off Footwear (QC): 4 Toileting Hygiene (QC): 4 Assessment/Plan Assessment and Plan Assess & Plan/Chief Complaint Assessment: COPD myopathy Asthma/COPD with current acute exacerbation Left lower lobe pneumonia facility acquired Debility Recurrence of atrial fibrillation status post ablations in process of seeing Dr. 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 prednisone tomorrow 05/09/2021: Maintain oral antibiotic and prednisone Monitor telemetry 05/10/2021: Discharge home tomorrow (1) Myopathy (2) SIRS (systemic inflammatory response syndrome) (3) Pneumonia (4) Chronic diastolic heart failure (5) Persistent atrial fibrillation (6) ADOLPH on CPAP Status: Chronic (7) Insomnia Status: Chronic (8) Anxiety Status: Chronic (9) Mixed hyperlipidemia ANAY DARNELL DO May 10, 2021 10:20
[2021-05-10] MEDS ORDERED: CEFD300C3 PO (13:35)
[2021-05-10] MEDS ORDERED: PRED10TA22 PO (13:35)
[2021-05-10 20:00] VITALS: BP 141/69
[2021-05-10] MEDS: traZODone 50 MG (DESYREL) TAB PO SCH (21:51)
[2021-05-10] MEDS: MONTELUKAST 10 MG (SINGULAIR) TAB PO SCH (21:52)
[2021-05-10] MEDS: ALPRAZolam 0.25 MG (XANAX) TAB PO PRN (21:52)
--- NOTE | 2021-05-11 06:42 | Discharge Summary ---
Diagnosis/Chief Complaint Date of Admission May 07, 2021 at 11:11 Date of Discharge Discharge Date: May 11, 2021 Discharge Diagnosis Assessment: COPD myopathy Asthma/COPD with current acute exacerbation Left lower lobe pneumonia facility acquired Debility Recurrence of atrial fibrillation status post ablations in process of seeing Dr. 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 prednisone tomorrow 05/09/2021: Maintain oral antibiotic and prednisone Monitor telemetry (1) Myopathy (2) SIRS (systemic inflammatory response syndrome) (3) Pneumonia (4) Chronic diastolic heart failure (5) Persistent atrial fibrillation (6) ADOLPH on CPAP Status: Chronic (7) Insomnia Status: Chronic (8) Anxiety Status: Chronic (9) Mixed hyperlipidemia Discharge Summary Discharge Physical Examination Allergies: Coded Allergies: sulfamethoxazole (Verified Allergy, Intermediate, rash, SOB, 10/23/18) trimethoprim (Verified Allergy, Intermediate, rash, SOB, 10/23/18) cephalexin (Verified Allergy, Unknown, 10/02/18) Vitals & I&Os Vital Signs Date Time Temp Pulse Resp B/P (MAP) Pulse Ox O2 Delivery O2 Flow Rate FiO2 05/11/21 10:30 36.5 58 20 146/72 97 Nasal Cannula 2.00 General Appearance: Alert, Oriented X3, Cooperative Respiratory: Clear to Auscultation Cardiovascular: Regular Rate Neuro: Normal Gait, Normal Speech, Strength at 5/5 X4 Ext Psych/Mental Status: Mental Status NL Hospital Course Was the Problem List Reviewed?: Yes Hospital course: Patient had a brief hospital course for 5 days after she was admitted after multiple ER visits and hospital stays and failure at home due to atrial fibrillation with rapid ventricular response and acute exacerbation for COPD. Patient was admitted from my office due to fever patient was found to have left lower lobe pneumonia and clinical exam consistent. Patient was not back to baseline activity so she met criteria for inpatient rehab so she finished up on her IV antibiotics transition to Omnicef twice daily and prednisone taper dose. She was ready for discharge and back to her baseline activity. Labs (last 24 hrs) Laboratory Tests 05/08/21 06:20: White Blood Count 9.7, Red Blood Count 3.93, Hemoglobin 11.4L, Hematocrit 35, Mean Corpuscular Volume 88, Mean Corpuscular Hemoglobin 29, Mean Corpuscular Hemoglobin Concent 33, Red Cell Distribution Width 13.2, Platelet Count 203, Mean Platelet Volume 9.5, Immature Granulocyte % (Auto) 4, Neutrophils (%) (Auto) 85H, Lymphocytes (%) (Auto) 7L, Monocytes (%) (Auto) 3, Eosinophils (%) (Auto) 0, Basophils (%) (Auto) 0, Neutrophils # (Auto) 8.3H, Lymphocytes # (Auto) 0.7L, Monocytes # (Auto) 0.3, Eosinophils # (Auto) 0.0, Basophils # (Auto) 0.0, Immature Granulocyte # (Auto) 0.4H, Sodium Level 138, Potassium Level 4.4, Chloride Level 106, Carbon Dioxide Level 22, Anion Gap 10, Blood Urea Nitrogen 26H, Creatinine 0.80, Estimat Glomerular Filtration Rate 70, BUN/Creatinine Ratio 33, Glucose Level 219H, Calcium Level 8.8, Corrected Calcium 9.7, Total Bilirubin 0.4, Aspartate Amino Transf (AST/SGOT) 21, Alanine Aminotransferase (ALT/SGPT) 50, Alkaline Phosphatase 125, Total Protein 5.4L, Albumin 2.9L Pending Labs Laboratory Tests 05/08/21 06:20: White Blood Count 9.7, Red Blood Count 3.93, Hemoglobin 11.4, Hematocrit 35, Mean Corpuscular Volume 88, Mean Corpuscular Hemoglobin 29, Mean Corpuscular Hemoglobin Concent 33, Red Cell Distribution Width 13.2, Platelet Count 203, Mean Platelet Volume 9.5, Immature Granulocyte % (Auto) 4, Neutrophils (%) (Auto) 85, Lymphocytes (%) (Auto) 7, Monocytes (%) (Auto) 3, Eosinophils (%) (Auto) 0, Basophils (%) (Auto) 0, Neutrophils # (Auto) 8.3, Lymphocytes # (Auto) 0.7, Monocytes # (Auto) 0.3, Eosinophils # (Auto) 0.0, Basophils # (Auto) 0.0, Immature Granulocyte # (Auto) 0.4, Sodium Level 138, Potassium Level 4.4, Chloride Level 106, Carbon Dioxide Level 22, Anion Gap 10, Blood Urea Nitrogen 26, Creatinine 0.80, Estimat Glomerular Filtration Rate 70, BUN/Creatinine Ratio 33, Glucose Level 219, Calcium Level 8.8, Corrected Calcium 9.7, Total Bilirubin 0.4, Aspartate Amino Transf (AST/SGOT) 21, Alanine Aminotransferase (ALT/SGPT) 50, Alkaline Phosphatase 125, Total Protein 5.4, Albumin 2.9 Discharge Home Medications: Active Scripts Active Prednisone 10 Mg Tab.ds.pk 10 Mg PO DAILY Take 3 tabs(30mg) once daily,decrease by 1 tab(10MG)daily. Cefdinir 300 Mg Capsule 300 Mg PO BID Doxazosin Mesylate 1 Mg Tablet 1 Mg PO HS 30 Days Diltiazem 24Hr ER (Diltiazem HCl) 240 Mg Cap.er.24h 240 Mg PO BID Metoprolol Succinate 25 Mg Tab.er.24h 25 Mg PO BID Iprat-Albut 0.5-3(2.5) mg/3 ml (Ipratropium/Albuterol Sulfate) 3 Ml Ampul.neb 3 Ml INH RTBID Norvasc (Amlodipine Besylate) 10 Mg Tablet 10 Mg PO DAILY Lisinopril 20 Mg Tablet 40 Mg PO DAILY Reported ALPRAZolam 0.25 Mg Tablet 0.25 Mg PO Q8H PRN Docusate Sodium 100 Mg Capsule 100 Mg PO TID PRN Potassium Chloride 10 Meq Capsule.er 20 Meq PO DAILY PRN TAKES 2 (10MEQ) CAPS Vitamin D3 (Cholecalciferol (Vitamin D3)) 125 Mcg/1 Ml Drops 125 Mcg PO DAILY Furosemide 40 Mg Tablet 40 Mg PO DAILY PRN Loratadine 10 Mg Tablet 10 Mg PO DAILY Proair Hfa (Albuterol Sulfate) 1 Puff Puff 2 Puff IH Q4H PRN Montelukast Sodium 10 Mg Tablet 10 Mg PO HS Atorvastatin Calcium 20 Mg Tablet 20 Mg PO HS Trazodone HCl 50 Mg Tablet 50 Mg PO HS Sertraline HCl 100 Mg Tablet 150 Mg PO DAILY TAKES 1 & 1/2 (100MG) TABLET Eliquis (Apixaban) 5 Mg Tablet 5 Mg PO BID Fluticasone Propionate 16 Gm [place].susp 2 Sprays NS HS PRN Estradiol Tablet (Estradiol) 0.5 Mg Tablet 0.5 Mg PO DAILY Instructions to patient/family Please see electronic discharge instructions given to patient. Diagnosis/Problems Diagnosis/Problems (1) Myopathy (2) SIRS (systemic inflammatory response syndrome) (3) Pneumonia (4) Chronic diastolic heart failure (5) Persistent atrial fibrillation (6) ADOLPH on CPAP Status: Chronic (7) Insomnia Status: Chronic (8) Anxiety Status: Chronic (9) Mixed hyperlipidemia ANAY DARNELL DO May 11, 2021 06:42
[2021-05-11] MEDS: CATHETER FLUSH 10 ML SYR IV SCH ×2 (06:51→06:52)
[2021-05-11] MEDS ORDERED: predniSONE 20 MG TAB PO SCH (07:00)
[2021-05-11 07:30] VITALS: BP 146/72
[2021-05-11] MEDS: SERTRALINE 100 MG (ZOLOFT) TAB PO SCH (08:57)
[2021-05-11] MEDS: VITAMIN D3 125 MCG (5,000 UNITS) CAPSULE PO SCH (08:59)
[2021-05-11] MEDS: amLODIPine 10 MG (NORVASC) TAB PO SCH (08:59)
[2021-05-11] MEDS: APIXABAN 5 MG (ELIQUIS) TABLET PO SCH (08:59)
[2021-05-11] MEDS: ESTRADIOL 1 MG TAB (ESTRACE) PO SCH (08:59)
[2021-05-11] MEDS: lisINopril 20 MG (PRINIVIL) TABLET PO SCH (08:59)
[2021-05-11] MEDS: LORATADINE (CLARITIN) 10 MG TAB PO SCH (09:00)
[2021-05-11] MEDS: RT-ALBUTEROL/IPRATROPIUM 3 ML (DUONEB) VIAL INH SCH (09:02)
[2021-05-11] MEDS: CEFDINIR 300 MG (OMNICEF) CAP PO SCH (09:19)
[2021-05-11 10:30] VITALS: BP 146/72
--- NOTE | 2021-05-12 08:49 | Therapy Team Discharge Summary ---
Therapy Discharge Summary Discharge Recommendations Date of Discharge May 11, 2021 at 10:30 Occupational Therapy Pt admitted to ARU with COPD myopathy. At OF, she was independent with all ADLS and functional mobility, using cane PRN. Upon initial evaluation, pt was independent with eating, required set up assistance for UE dressing, supervision with showering, lower body dressing, footwear and toileting. OT tx focused on increasing BUE strength and activity tolerance, and increasing safety and independence with ADLs and functional mobility. At discharge, pt was independent with all ADLs, meeting all LTGs. Pt discharged from facility, d/c from OT. Decreased Activ Tolerance, Decreased UE Strength, Impaired Self-Care Skills PT Manager Wireless Goals Nursing Home Goals PT Nursing Home Goals Time Frame: May 28, 2021 Roll Left to Right (QC): 6 Sit to Lying (QC): 6 Lying-Sitting on Side/Bed(QC): 6 Sit to Stand (QC): 6 Chair/Ciz-qn-Gdxmf Xfer(QC): 6 Car Transfer (QC): 6 Does the Patient Walk: Yes Walk 10 feet (QC): 6 Walk 10ft-Uneven Surface(QC): 6 Walk 50ft with 2 Turns (QC): 6 Walk 150 ft (QC): 6 Wheel 50 feet with 2 turns (QC: 9 1 Step (curb) (QC): 4 4 Steps (QC): 4 12 Steps (QC): 88 Picking up an Object (QC): 4 OT Nursing Home Goals Manager [employer] Goals Time Frame: May 23, 2021 Eating (QC): 6 (met) Oral Hygiene (QC): 6 (met) Shower/Bathe Self (QC): 6 (met) Upper Body Dressing (QC): 6 (met) Lower Body Dressing (QC): 6 (met) On/Off Footwear (QC): 6 (met) Toileting Hygiene (QC): 6 (met) Toilet/Commode Transfer (QC): 6 (met) Additional Goals: 1-Demonstrate ADL Tasks, 2-Verbalize Understanding, 3-I mproveStrength/Sesar 1=Demonstrate adherence to instructed precautions during ADL tasks. 2=Patient will verbalize/demonstrate understanding of assistive devices/modifications for ADL. 3=Patient will improve strength/tolerance for activity to enable patient to perform ADL's. RAMÓN BURGESS OT May 12, 2021 08:49
--- NOTE | 2021-05-12 13:43 | Therapy Team Discharge Summary ---
Therapy Discharge Summary Discharge Recommendations Date of Discharge May 11, 2021 at 10:30 Physical Therapy Patient came to rehab with COPD exacerbation. Upon evaluation patient performed bed mobility and supine <-> sit with independence, sit <-> stand and transfers with CGA, car transfer CGA, ambulated 250' with a rolling walker with CGA (including 50' with at least 2 turns of 90 degrees and 10' over an uneven surface), and went up and down 1 step using a rolling walker with CGA. Patient has been performing bed mobility and transfer training, balance and endurance training, functional strengthening, stair training, gait training, and education. Patient has made good progress and has met all of her manager long term care goals except for a car transfer and ambulating over an uneven surface. Now, patient performs bed mobility and supine <-> sit with independence, independent with sit <-> stand and transfers, SBA for car transfer, ambulates 150' with a s [place] cane with independence (including 50' with at least 2 turns of 90 degrees but needs SBA for 10' over an uneven surface), can olive picker an object from the floor with CGA, and can go up and down 4 steps using 2 handrails with CGA/SBA. Patient has been discharged from this facility and will be discharged from PT at this time. Occupational Therapy Decreased Activ Tolerance, Decreased UE Strength, Impaired Self-Care Skills PT Snf Goals Snf Goals PT Fur Finisher Tailor Goals Time Frame: May 28, 2021 Roll Left to Right (QC): 6 Sit to Lying (QC): 6 Lying-Sitting on Side/Bed(QC): 6 Sit to Stand (QC): 6 Chair/Ahx-ti-Udhac Xfer(QC): 6 Car Transfer (QC): 6 Does the Patient Walk: Yes Walk 10 feet (QC): 6 Walk 10ft-Uneven Surface(QC): 6 Walk 50ft with 2 Turns (QC): 6 Walk 150 ft (QC): 6 Wheel 50 feet with 2 turns (QC: 9 1 Step (curb) (QC): 4 4 Steps (QC): 4 12 Steps (QC): 88 Picking up an Object (QC): 4 OT Fur Finisher Tailor Goals Fur Finisher Tailor Goals Time Frame: May 23, 2021 Eating (QC): 6 (met) Oral Hygiene (QC): 6 (met) Shower/Bathe Self (QC): 6 (met) Upper Body Dressing (QC): 6 (met) Lower Body Dressing (QC): 6 (met) On/Off Footwear (QC): 6 (met) Toileting Hygiene (QC): 6 (met) Toilet/Commode Transfer (QC): 6 (met) Additional Goals: 1-Demonstrate ADL Tasks, 2-Verbalize Understanding, 3- ImproveStrength/Sesar 1=Demonstrate adherence to instructed precautions during ADL tasks. 2=Patient will verbalize/demonstrate understanding of assistive devices/modifications for ADL. 3=Patient will improve strength/tolerance for activity to enable patient to perform ADL's. ABHISHEK THOMAS PT May 12, 2021 13:43
== END 2021-05-11 10:30 | disposition home or self-care (01) | DRG 91 ==
PROVIDERS: ADMIT Internal Medicine; ATTEND Internal Medicine
DX: G72.89 Other specified myopathies (principal); J18.9 Pneumonia, unspecified organism; J44.0 Chronic obstructive pulmonary disease with (acute) lower respiratory infection; J44.1 Chronic obstructive pulmonary disease with (acute) exacerbation; I50.32 Chronic diastolic (congestive) heart failure; I48.92 Unspecified atrial flutter; Z68.41 Body mass index [BMI] 40.0-44.9, adult; I48.19 Other persistent atrial fibrillation; R41.0 Disorientation, unspecified; I11.0 Hypertensive heart disease with heart failure; I25.10 Atherosclerotic heart disease of native coronary artery without angina pectoris; Z79.01 Long term (current) use of anticoagulants; I27.20 Pulmonary hypertension, unspecified; G47.33 Obstructive sleep apnea (adult) (pediatric); E66.9 Obesity, unspecified; I45.10 Unspecified right bundle-branch block; E78.00 Pure hypercholesterolemia, unspecified; E78.2 Mixed hyperlipidemia; K21.9 Gastro-esophageal reflux disease without esophagitis; M19.91 Primary osteoarthritis, unspecified site; E11.9 Type 2 diabetes mellitus without complications; H54.3 Unqualified visual loss, both eyes; F41.9 Anxiety disorder, unspecified; F32.A Depression, unspecified; Z86.16 Personal history of COVID-19; Z88.1 Allergy status to other antibiotic agents; Z88.2 Allergy status to sulfonamides; Z96.652 Presence of left artificial knee joint; Z96.641 Presence of right artificial hip joint
CPT/HCPCS: 36415; 80053; 85025; 94640; 94760

== ENCOUNTER 2021-05-26 12:57 | Emergency (ER) | payer MEDICARE ==
[~2021-05-26] VITALS: Ht 170 cm; Wt 124.2 kg
[~2021-05-26 12:57] MED LIST changes: +CEFD300C3 PO; +DOXA1TAB2 PO
[2021-05-26] MEDS ORDERED: NS IV 500 ML 500 ML IV ONE (13:30)
[2021-05-26 13:47] LABS: BASOPHILS % (AUTO) 0 % (0-10); EOSINOPHILS # (AUTO) 0.1 10^3/uL (0.0-0.3); EOSINOPHILS % (AUTO) 1 % (0-10); HEMATOCRIT 40 % (35-52); HEMOGLOBIN 13.2 g/dL (11.5-16.0); LYMPHOCYTES % (AUTO) 9 % (12-44); MEAN CORPUSCULAR HEMOGLOBIN 29 pg (25-34); MEAN CORPUSCULAR HGB CONC 33 g/dL (32-36); MEAN CORPUSCULAR VOLUME 88 fL (80-99); MEAN PLATELET VOLUME 9.1 fL (9.0-12.2); MONOCYTES # (AUTO) 0.8 10^3/uL (0.0-1.0); MONOCYTES % (AUTO) 7 % (0-12); NEUTROPHILS # (AUTO) 9.6 10^3/uL (1.8-7.8); NEUTROPHILS % (AUTO) 83 % (42-75); PLATELET COUNT 174 10^3/uL (130-400); WHITE BLOOD COUNT 11.6 10^3/uL (4.3-11.0)
--- NOTE | 2021-05-26 13:48 | Diagnostic Imaging Report ---
INDICATION: Sepsis. COMPARISON: 05/06/2021. FINDINGS: Single frontal view of the chest demonstrates normal heart size and pulmonary vascularity. The lungs are well aerated and clear. No large pleural effusion or pneumothorax is seen. The visualized osseous structures show no acute abnormalities. IMPRESSION: 1. No acute cardiopulmonary process. Dictated by: Dictated on workstation # [id number]
[2021-05-26 14:01] LABS: INR 1.2 (0.8-1.4); PROTHROMBIN TIME PATIENT 15.2 SEC (12.2-14.7)
[2021-05-26 14:06] LABS: ALBUMIN 4.1 GM/DL (3.2-4.5); BILIRUBIN,TOTAL 1.1 MG/DL (0.1-1.0); CALCIUM 9.1 MG/DL (8.5-10.1); CREATININE SERUM 0.76 MG/DL (0.60-1.30); TOTAL PROTEIN 6.4 GM/DL (6.4-8.2)
--- NOTE | 2021-05-26 14:11 | ED GU-Female ---
General Chief Complaint: - Reproductive Stated Complaint: BACK PAIN, NAUSEA, CHILLS Nursing Triage Note: PT PRESENTS TO ED VIA POV FROM HOME WITH COMPLAINTS OF URINARY FREQUENCY/UREGENCY, GENERALIZED WEAKNESS, R SIDED FLANK PAIN AND NAUSEA STARTING SINCE WEDNESDAY. Source: patient Exam Limitations: no limitations History of Present Illness Date Seen by Provider: May 26, 2021 Time Seen by Provider: 13:27 Initial Comments Here with report of right-sided flank pain and nausea for the last few days. She reports urinating quite a bit although she is on Lasix. She also notes that she has had diarrhea in the same timeframe that is new. Does have history of COPD and recent hospitalizations for pneumonia and COPD. Has history of A. fib and she is on anticoagulant as well as furosemide. Denies fever but does have chills. Denies blood in urine or stool. Does report her ankle seem to be swelling but she is feeling dehydrated. She has had previous urinary tract infections multiple times. Does report urgency and frequency. Timing/Duration: getting worse, other (3 days) Severity/Quality: aching Location: right flank Radiation: back Activities at Onset: none Modifying Factors: Improves With Defecating; Worsens With Eating Associated Symptoms: dysuria, lower back pain, urinary frequency Allergies and Home Medications Allergies Coded Allergies: sulfamethoxazole (Verified Allergy, Intermediate, rash, SOB, 10/23/18) trimethoprim (Verified Allergy, Intermediate, rash, SOB, 10/23/18) cephalexin (Verified Allergy, Unknown, 10/02/18) Patient Home Medication List Home Medication List Reviewed: Yes ALPRAZolam (ALPRAZolam) 0.25 Mg Tablet, 0.25 MG PO Q8H PRN for ANXIETY, (Reported) Entered as Reported by: TOMI OCONNOR on 04/17/21 1700 Albuterol Sulfate (Proair Hfa) 1 Puff Puff, 2 PUFF IH Q4H PRN for SHORTNESS OF BREATH, (Reported) Entered as Reported by: EDGARDO RIVAS on 12/15/18 1531 Amlodipine Besylate (Norvasc) 10 Mg Tablet, 10 MG PO DAILY Prescribed by: RASHAUN HORN on 04/21/21 0920 Apixaban (Eliquis) 5 Mg Tablet, 5 MG PO BID, (Reported) Entered as Reported by: EDGARDO RIVAS on 10/03/18 1127 Atorvastatin Calcium (Atorvastatin Calcium) 20 Mg Tablet, 20 MG PO HS, (Report ed) Entered as Reported by: EDGARDO RIVAS on 10/03/18 1127 Cefdinir (Cefdinir) 300 Mg Capsule, 300 MG PO BID Prescribed by: ANAY DARNELL on 05/10/21 1335 Cephalexin (Cephalexin) 500 Mg Capsule, 500 MG PO BID Prescribed by: FARHEEN FOY on 05/26/21 1522 Cholecalciferol (Vitamin D3) (Vitamin D3) 125 Mcg/1 Ml Drops, 125 MCG PO DAILY, (Reported) Entered as Reported by: TOMI OCONNOR on 06/17/20 1121 Diltiazem HCl (Diltiazem 24Hr ER) 240 Mg Cap.er.24h, 240 MG PO BID Prescribed by: RASHAUN HORN on 04/30/21 0943 Docusate Sodium (Docusate Sodium) 100 Mg Capsule, 100 MG PO TID PRN for CONSTIPATION-1ST LINE, (Reported) Entered as Reported by: TOMI OCONNOR on 04/17/21 1700 Doxazosin Mesylate (Doxazosin Mesylate) 1 Mg Tablet, 1 MG PO HS Prescribed by: ANAY DARNELL on 05/07/21 1007 Estradiol (Estradiol Tablet) 0.5 Mg Tablet, 0.5 MG PO DAILY, (Reported) Entered as Reported by: VICTOR MANUEL DASILVA on 05/28/16 1331 Fluticasone Propionate (Fluticasone Propionate) 16 Gm [place].susp, 2 SPRAYS NS HS PRN for ALLERGIES, (Reported) Entered as Reported by: EDGARDO RIVAS on 10/03/18 1127 Furosemide (Furosemide) 40 Mg Tablet, 40 MG PO DAILY PRN for FLUID RETENTION, (Reported) Entered as Reported by: TOMI OCONNOR on 05/22/19 0744 Ipratropium/Albuterol Sulfate (Iprat-Albut 0.5-3(2.5) mg/3 ml) 3 Ml Ampul.neb, 3 ML INH RTBID Prescribed by: ANAY DARNELL on 04/21/21 0929 L. Acidophilus/Bulgaricus (Lactinex Chewable Tablet) 1 Each Tab.chew, 1 EACH PO TID Prescribed by: FARHEEN FOY on 05/26/21 1522 Lisinopril (Lisinopril) 20 Mg Tablet, 40 MG PO DAILY Prescribed by: ANAY DARNELL on 04/21/21 0903 Loratadine (Loratadine) 10 Mg Tablet, 10 MG PO DAILY, (Reported) Entered as Reported by: TOMI OCONNOR on 05/22/19 0744 Metoprolol Succinate (Metoprolol Succinate) 25 Mg Tab.er.24h, 25 MG PO BID Prescribed by: RASHAUN HORN on 04/30/21 0943 Montelukast Sodium (Montelukast Sodium) 10 Mg Tablet, 10 MG PO HS, (Reported) Entered as Reported by: EDGARDO RIVAS on 10/03/18 1127 Potassium Chloride (Potassium Chloride) 10 Meq Capsule.er, 20 MEQ PO DAILY PRN for WHEN TAKING FUROSEMIDE, (Reported) Entered as Reported by: TOMI OCONNOR on 06/17/20 1121 Prednisone (Prednisone) 10 Mg Tab.ds.pk, 10 MG PO DAILY Prescribed by: ANAY DARNELL on 05/10/21 1335 Sertraline HCl (Sertraline HCl) 100 Mg Tablet, 150 MG PO DAILY, (Reported) Entered as Reported by: EDGARDO RIVAS on 10/03/18 1127 Trazodone HCl (Trazodone HCl) 50 Mg Tablet, 50 MG PO HS, (Reported) Entered as Reported by: EDGARDO RIVAS on 10/03/18 1127 Review of Systems Review of Systems Constitutional: see HPI, chills; No fever EENTM: No nose congestion, No throat pain Respiratory: cough (Chronic); No short of breath Cardiovascular: No chest pain; edema Gastrointestinal: abdominal pain, diarrhea, nausea; No vomiting Genitourinary: see HPI Musculoskeletal: see HPI, back pain, muscle pain Skin: no symptoms reported All Other Systemes Reviewed Negative Unless Noted: Yes Past Rcubzxn-Gphicw-Afwvul Hx Patient Social History Tobacco Use?: No Substance use?: No Alcohol Use?: No Immunizations Up To Date Tetanus Booster (TDap): Less than 5yrs First/Initial COVID19 Vaccinat: 09/2020 Second COVID19 Vaccination Jamar: 09/2020 Third COVID19 Vaccination Date: 09/2020 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 Surgeries: Yes (HIATAL HERNIA, L TKR, R HIP REPLACEMENT, BLADDER x8, BILAT FOOT SX) Orthopedic Respiratory: Yes Asthma, Sleep Apnea Currently Using CPAP: Yes Currently Using BIPAP: No Cardiac: Yes Atrial Fibrillation, Chronic Edema/Swelling, High Cholesterol, Hypertension Neurological: No Reproductive Disorders: No RESEARCH INTERN History: Menopausal Sexually Transmitted Disease: No Genitourinary: Yes (BOTOX FOR URINARY INCONT Q 6 MONTHS) Kidney Infection, Bladder Infection Gastrointestinal: Yes Gastroesophageal Reflux Musculoskeletal: Yes Arthritis, Chronic Back Pain Endocrine: No Diabetes, Non-Insulin dep Cataract Loss of Vision: Bilateral Hearing Impairment: Denies Cancer: No Psychosocial: Yes Anxiety, Depression Integumentary: No Blood Disorders: No Adverse Reaction/Blood Tranf: No Family Medical History Reviewed Nursing Family Hx Arthritis 19 MOTHER Cataracts 19 FATHER 19 MOTHER Colon cancer 19 FATHER Deafness or hearing loss 19 FATHER Dementia 19 FATHER FH: macular degeneration 19 MOTHER FH: prostate cancer 19 FATHER FH: skin cancer 19 FATHER Gout 19 MOTHER Hypertension 19 FATHER 19 MOTHER Myocardial infarction 19 FATHER 19 MOTHER Physical Exam Vital Signs Vital Signs - First Documented 05/26/21 13:17 Temp 36.5 Pulse 83 Resp 22 B/P (MAP) 126/77 (93) Pulse Ox 97 Capillary Refill : Less Than 3 Seconds Height, Weight, BMI Height: 5'7.00" Weight: 291lbs. 6.0oz. 132.256036cp; 42.00 BMI Method:Stated General Appearance: WD/WN, no apparent distress, obese HEENT: PERRL/EOMI, pharynx normal Neck: full range of motion, supple Cardiovascular: regular rate, rhythm, no murmur, other (Sinus rhythm on monitor) Respiratory: lungs clear, normal breath sounds Gastrointestinal: non tender, soft Back: normal inspection, no vertebral tenderness, CVA tenderness (R); No CVA tenderness (L) (Mild) Extremities: non-tender, no calf tenderness, pedal edema (Nonpitting to mid tibia down) Neurologic/Psychiatric: alert, oriented x 3 Skin: normal color, warm/dry Focused Exam Lactate Level 05/26/21 13:44: Lactic Acid Level 1.28 Lactic Acid Level Laboratory Tests Test 05/26/21 13:44 Lactic Acid Level 1.28 MMOL/L (0.50-2.00) Progress/Results/Core Measures Suspected Sepsis SIRS Temperature: Pulse: 83 Respiratory Rate: 22 Laboratory Tests 05/26/21 13:44: White Blood Count 11.6H Blood Pressure 126 /77 Mean: 93 05/26/21 13:44: Lactic Acid Level 1.28 Laboratory Tests 05/26/21 13:44: Creatinine 0.76, INR Comment 1.2, Platelet Count 174, Total Bilirubin 1.1H Results/Orders Lab Results Laboratory Tests Test 05/26/21 13:44 05/26/21 14:25 Range/Units White Blood Count 11.6 H 4.3-11.0 10^3/uL Red Blood Count 4.51 3.80-5.11 10^6/uL Hemoglobin 13.2 11.5-16.0 g/dL Hematocrit 40 35-52 % Mean Corpuscular Volume 88 80-99 fL Mean Corpuscular Hemoglobin 29 25-34 pg Mean Corpuscular Hemoglobin Concent 33 32-36 g/dL Red Cell Distribution Width 14.4 10.0-14.5 % Platelet Count 174 130-400 10^3/uL Mean Platelet Volume 9.1 9.0-12.2 fL Immature Granulocyte % (Auto) 1 % Neutrophils (%) (Auto) 83 H 42-75 % Lymphocytes (%) (Auto) 9 L 12-44 % Monocytes (%) (Auto) 7 0-12 % Eosinophils (%) (Auto) 1 0-10 % Basophils (%) (Auto) 0 0-10 % Neutrophils # (Auto) 9.6 H 1.8-7.8 10^3/uL Lymphocytes # (Auto) 1.0 1.0-4.0 10^3/uL Monocytes # (Auto) 0.8 0.0-1.0 10^3/uL Eosinophils # (Auto) 0.1 0.0-0.3 10^3/uL Basophils # (Auto) 0.0 0.0-0.1 10^3/uL Immature Granulocyte # (Auto) 0.1 0.0-0.1 10^3/uL Prothrombin Time 15.2 H 12.2-14.7 SEC INR Comment 1.2 0.8-1.4 Activated Partial Thromboplast Time 32 24-35 SEC Sodium Level 141 135-145 MMOL/L Potassium Level 4.0 3.6-5.0 MMOL/L Chloride Level 106 98-107 MMOL/L Carbon Dioxide Level 23 21-32 MMOL/L Anion Gap 12 5-14 MMOL/L Blood Urea Nitrogen 12 7-18 MG/DL Creatinine 0.76 0.60-1.30 MG/DL Estimat Glomerular Filtration Rate 74 BUN/Creatinine Ratio 16 Glucose Level 103 70-105 MG/DL Lactic Acid Level 1.28 0.50-2.00 MMOL/L Calcium Level 9.1 8.5-10.1 MG/DL Corrected Calcium 9.0 8.5-10.1 MG/DL Total Bilirubin 1.1 H 0.1-1.0 MG/DL Aspartate Amino Transf (AST/SGOT) 14 5-34 U/L Alanine Aminotransferase (ALT/SGPT) 17 0-55 U/L Alkaline Phosphatase 73 40-136 U/L Total Protein 6.4 6.4-8.2 GM/DL Albumin 4.1 3.2-4.5 GM/DL Urine Color YELLOW Urine Clarity CLOUDY Urine pH 6.0 5-9 Urine Specific [place] 1.010 L 1.016-1.022 Urine Protein NEGATIVE NEGATIVE Urine Glucose (UA) NEGATIVE NEGATIVE Urine Ketones NEGATIVE NEGATIVE Urine Nitrite NEGATIVE NEGATIVE Urine Bilirubin NEGATIVE NEGATIVE Urine Urobilinogen 0.2 < = 1.0 MG/DL Urine Leukocyte Esterase 2+ H NEGATIVE Urine RBC (Auto) 3+ H NEGATIVE Urine RBC 10-25 H /HPF Urine WBC 25-50 H /HPF Urine Squamous Epithelial Cells NONE /HPF Urine Crystals NONE /LPF Urine Bacteria FEW H /HPF Urine Casts NONE /LPF Urine Mucus NEGATIVE /LPF Urine Culture Indicated CULTURE PENDING My Orders Orders - FARHEEN FOY MD Cbc With Automated Diff (05/26/21 13:30) Comprehensive Metabolic Panel (05/26/21 13:30) Blood Culture (05/26/21 13:30) Sputum Culture (05/26/21 13:30) Urinalysis (05/26/21 13:30) Urine Culture (05/26/21 13:30) Protime With Inr (05/26/21 13:30) Partial Thromboplastin Time (05/26/21 13:30) Chest 1 View, Ap/Pa Only (05/26/21 13:30) Ed Iv/Invasive Line Start (05/26/21 13:30) Vital Signs Adult Sepsis Patie Q15M (05/26/21 13:30) O2 (05/26/21 13:30) Remove Rings In Anticipation O (05/26/21 13:30) Lactic Acid Analyzer (05/26/21 13:30) Ns Iv 500 Ml (Sodium Chloride 0.9%) (05/26/21 13:30) Stool Culture (05/26/21 14:48) C Difficile Ag + Toxin A/B. (05/26/21 14:48) Isolation Central Supply Req (05/26/21 14:48) Medications Given in ED Current Medications Medications Dose Ordered Sig/Lisa Route Start Time Stop Time Status Last Admin Dose Admin Sodium Chloride 500 ml @ 0 mls/hr Q0M ONCE IV 05/26/21 13:30 05/26/21 13:32 DC 05/26/21 13:38 0 MLS/HR Vital Signs/I&O 05/26/21 13:17 Temp 36.5 Pulse 83 Resp 22 B/P (MAP) 126/77 (93) Pulse Ox 97 Capillary Refill : Less Than 3 Seconds Blood Pressure Mean: 93 Progress Note : Progress Note Seen and evaluated. Sepsis protocol initiated given history. UA ordered. Patient had mix of urine and stool so straight cath UA specimen ordered. Normal saline 500 mL bolus. Monitor patient. 1520: Labs reviewed as well as UA. There is question of urinary tract infection with right flank pain and dysuria. May be colonization versus acute infection. She has also had moderate significant diarrhea after antibiotics so we will get stool sample and C. difficile sample. I have discussed the case with Dr. Darnell. She is recommending Lactinex 3 times daily #60 and we have decided on cephalexin 500 mg p.o. 3 times daily. I have reviewed the last 10 years of microbiology samples for UA and found that she is either had contamination and or different organisms but they have all been sensitive to cephalexin as well as Bactrim. Patient has allergy to Bactrim. She does have cephalexin listed as an allergy and I have talked with the patient about this. She states that she thought it made her foggy headed at one point but she has had multiple doses first generation ceph alosporins as well as third and fourth generation cephalosporins here without adverse effect. She was sent home from previous hospitalization on cefdinir without problems. Patient believes it is okay to take cephalexin. I have sent prescription but did twice daily dosing for UTI instead of 3 times daily. This was discussed with the patient. Dr. Darnell updated. I will send a copy of the chart to her office. She will see Dr. Darnell on at 1300 which is 05/29/2021. Pending stool sample and then discharged home. Discharged home with return precautions. Patient verbalized understanding instructions and agreement with plan. 1625: Patient unable to provide stool sample so she was given outpatient order and will bring sample into the lab when she is able to produce that. Discharged home. Diagnostic Imaging Diagonstic Imaging: Xray Plain Films/CT/US/NM/MRI: chest Comments [facility]. [place], [place] NAME: TUSHAR ESTEVEZ [facility] REC#: [id number] PT STATUS: REG ER : 1945 PHYSICIAN: FARHEEN FOY MD ADMIT DATE: 05/26/21/ER Draft Date of Exam:05/26/21 CHEST 1 VIEW, AP/PA ONLY INDICATION: Sepsis. COMPARISON: 05/06/2021. FINDINGS: Single frontal view of the chest demonstrates normal heart size and pulmonary vascularity. The lungs are well aerated and clear. No large pleural effusion or pneumothorax is seen. The visualized osseous structures show no acute abnormalities. IMPRESSION: 1. No acute cardiopulmonary process. Dictated on workstation # [id number] Dict: 05/26/21 1346 Trans: 05/26/21 1347 [id number] Interpreted by: KIM BEAVERS MD Electronically signed by: Departure Impression Primary Impression: Urinary tract infection Qualified Codes: N30.01 - Acute cystitis with hematuria Additional Impression: Diarrhea Qualified Codes: R19.7 - Diarrhea, unspecified Disposition: HOME, SELF-CARE Condition: Improved Departure-Patient Inst. Decision time for Depature: 15:28 Referrals: ANAY DARNELL DO (PCP/Family) Primary Care Physician Patient Instructions: Clostridioides difficile (DC), Diarrhea, Adult ED, Urinary Tract Infection, Adult (DC) Add. Discharge Instructions: All discharge instructions reviewed with patient and/or family. Voiced understanding. You will follow up with Dr. Darnell on , 05/29/2021 at 1 p.m. Take medications as directed. Continue home medications as previously prescribed. Return for worse pain, fever, vomiting, weakness, breathing problems or other concerns as needed. You do have stool culture pending and you will be called if you have results concerning for C. difficile infection causing diarrhea. You were given discharge instructions related to this so you had some background information in case needed. When you collect the sample, bring the sample and the paperwork in to the registration for lab and turned the sample into the lab. It is important that you wash your hands well after going to the bathroom to prevent spread of infection to other people if it is C. difficile. Scripts Cephalexin (Cephalexin) 500 Mg Capsule 500 MG PO BID for 7 Days, #14 CAP 0 Refills Prov: FARHEEN FOY MD 05/26/21 L. Acidophilus/Bulgaricus (Lactinex Chewable Tablet) 1 Each Tab.chew 1 EACH PO TID, #60 TAB Prov: FARHEEN FOY MD 05/26/21 Copy Copies To 1: ANAY DARNELL TIMOTHY D MD May 26, 2021 14:11
[2021-05-26 14:31] LABS: BILIRUBIN,URINE NEGATIVE (NEGATIVE); CLARITY,URINE CLOUDY; COLOR,URINE YELLOW; GLUCOSE, URINE (UA) NEGATIVE (NEGATIVE); KETONES,URINE NEGATIVE (NEGATIVE); LEUKOCYTE ESTERASE ,URINE 2+ (NEGATIVE); NITRITE,URINE NEGATIVE (NEGATIVE); PROTEIN,URINE NEGATIVE (NEGATIVE)
[2021-05-26 14:39] LABS: BACTERIA,URINE FEW /HPF; WBC,URINE 25-50 /HPF
[2021-05-26] MEDS ORDERED: CEPH500C PO (15:22)
[2021-05-26] MEDS ORDERED: ACID1TAB5 PO (15:22)
[2021-05-26 16:35] VITALS: BP 165/90
== END 2021-05-26 16:39 | disposition home or self-care (01) ==
LOC: EDUNIT# 12:57 → ER 13:00
DX: N39.0 Urinary tract infection, site not specified (principal); R19.7 Diarrhea, unspecified; J44.9 Chronic obstructive pulmonary disease, unspecified; G47.30 Sleep apnea, unspecified; I10 Essential (primary) hypertension; E78.00 Pure hypercholesterolemia, unspecified; F41.9 Anxiety disorder, unspecified; F32.9 Major depressive disorder, single episode, unspecified; I48.91 Unspecified atrial fibrillation; E11.9 Type 2 diabetes mellitus without complications; E66.9 Obesity, unspecified; Z68.41 Body mass index [BMI] 40.0-44.9, adult; Z79.01 Long term (current) use of anticoagulants; Z79.899 Other long term (current) drug therapy
CPT/HCPCS: 36415; 51701; 71045; 80053; 81000; 83605; 85025; 85610; 85730; 87040; 87077; 87088; 87186

== ENCOUNTER → 2021-05-28 | Outpatient (CLI) | payer MEDICARE ==
[~2021-05-28] MED LIST changes: +ACID1TAB5 PO; +CEPH500C PO
== END ==
LOC: LAB 09:26
PROVIDERS: ATTEND Emergency Medicine
DX: R19.7 Diarrhea, unspecified (principal)
CPT/HCPCS: 87015; 87045; 87046; 87324; 87449; 87899

== ENCOUNTER → 2021-06-11 | Outpatient (CLI) | payer MEDICARE ==
--- NOTE | 2021-06-11 11:45 | Diagnostic Imaging Report ---
Indication: Routine screening. Comparison is made with prior mammogram from 04/19/2020 and 03/16/2019. 2-D and 3-D bilateral screening mammography was performed with CAD. Both breasts are heterogeneously dense, limiting the sensitivity of mammography. Numerous circumscribed nodules in the retroareolar right breast are again noted and appears similar to prior exam. Scattered benign calcifications are noted. No spiculated mass or malignant-appearing microcalcifications are seen. Axillae are unremarkable. IMPRESSION: BI-RADS Category 2 No mammographic features suspicious for malignancy are identified. ACR BI-RADS Category 2: Benign findings. Result letter will be mailed to the patient. Note: At least 10% of breast cancer is not imaged by mammography. Dictated by: Dictated on workstation # [id number]
== END ==
LOC: RAD 09:45
PROVIDERS: ATTEND Internal Medicine
DX: Z12.31 Encounter for screening mammogram for malignant neoplasm of breast (principal)
CPT/HCPCS: 77063; 77067

== ENCOUNTER → 2021-06-26 | Outpatient (CLI) | payer MEDICARE ==
[~2021-06-26] MED LIST changes: +MONT-40 PO; -MONT10TA32 PO; +POTA-160 PO; -POTA10TA36 PO; +POTA10TA37 PO; -POTA10TA6 PO; +TIZA-186 PO; -TIZA4TAB4 PO
--- NOTE | 2021-06-26 12:28 | Diagnostic Imaging Report ---
INDICATION: Cough. Comparison with 04/19/2021. FINDINGS: PA and lateral views. The lungs are well aerated. There are no infiltrates or masses. The heart is mildly enlarged. The pulmonary vasculature is normal. No pneumothorax or pleural effusion. There is clinical research monitor implanted over the left chest wall. No bony abnormalities. IMPRESSION: Cardiomegaly with no acute abnormalities noted. Dictated by: Dictated on workstation # [id number]
== END ==
LOC: RAD 11:24
PROVIDERS: ATTEND Internal Medicine
DX: I51.7 Cardiomegaly (principal)
CPT/HCPCS: 71046

== ENCOUNTER → 2021-07-08 | Outpatient (CLI) | payer MEDICARE ==
[~2021-07-08] MED LIST changes: +RT-ALBUTEROL SULF 2.5 MG/3 ML PRE-MIX VIAL INH ONE
== END ==
LOC: RT 13:25
PROVIDERS: ATTEND Internal Medicine
DX: J44.9 Chronic obstructive pulmonary disease, unspecified (principal)
CPT/HCPCS: 94060; 94621; 94640; 94726; 94729

== ENCOUNTER → 2021-12-29 | Outpatient (CLI) | payer MEDICARE ==
[~2021-12-29] MED LIST changes: -RT-ALBUTEROL SULF 2.5 MG/3 ML PRE-MIX VIAL INH ONE
--- NOTE | 2021-12-29 10:50 | Diagnostic Imaging Report ---
INDICATION: Right foot pain. Time of Exam: 10:15 AM 3 views of the right foot were obtained. Severe degenerative changes at the 1st MTP joint are noted with joint space narrowing and marginal osteophyte formation. Metatarsals are intact. No definite periosteal reaction or stress reaction is identified. The phalanges appear intact. Midfoot and hindfoot are unremarkable apart from a plantar calcaneal spur. IMPRESSION: Chronic changes. No acute abnormality is detected. Dictated by: Dictated on workstation # [id number]
--- NOTE | 2021-12-29 11:14 | Diagnostic Imaging Report ---
INDICATION: Right ankle pain. Time of Exam: 10:13 AM 3 views of the right ankle were obtained. Alignment is normal. Ankle mortise is well maintained. Talar dome is smooth. There are well-corticated osseous densities adjacent to the medial and lateral malleoli which may represent old avulsions. No acute fracture is identified. There does appear to be some generalized soft tissue swelling about the ankle. Plantar calcaneal spur is noted. IMPRESSION: Chronic changes and soft tissue swelling. No acute bony abnormality is detected. Dictated by: Dictated on workstation # [id number]
== END ==
LOC: RAD 09:50
PROVIDERS: ATTEND Family Medicine
DX: M79.671 Pain in right foot (principal); M25.571 Pain in right ankle and joints of right foot; M25.471 Effusion, right ankle; I10 Essential (primary) hypertension
CPT/HCPCS: 73610; 73630

== ENCOUNTER 2022-07-16 15:41 | Inpatient (IN) | payer MEDICARE ==
[~2022-07-16] VITALS: Ht 170 cm; Wt 124.2 kg
[~2022-07-16 15:41] MED LIST changes: +ALBU8.5H6 IH; +POTA-177 PO; -POTA10TA37 PO; -RT-ALBUINH IH
[2022-07-16] MEDS ORDERED: NS IV 1000 ML 1,000 ML IV SCH ×2 (16:15→20:30)
--- NOTE | 2022-07-16 16:23 | ED General ---
General Chief Complaint: Cough/Cold/Flu Symptoms Stated Complaint: WEAKNESS Nursing Triage Note: PT TO [facility] BY [facility] WITH CC OF COUGH, RUNNY NOSE AND WEAKNESS SINCE WEDNESDAY, GETTING WORSE, WEAK TO THE POINT SHE FELL AND HIT HER HEAD, DENIES HEAD OR NECK PAIN AT THIS TIME History of Present Illness Date Seen by Provider: Jul 16, 2022 Time Seen by Provider: 16:15 Initial Comments 77-year-old female presents to the ED via EMS for complaints of bilateral leg weakness. Patient reports she became weak and fell hit the back of her head on an end table just prior to arrival. Patient denies any pain in the back of her head or in her neck. Patient does take Eliquis. Patient denies dizziness or loss of consciousness. Patient also reports a recent cough. Reports her family has influenza. Patient reports history of recurrent UTIs without symptoms. Allergies and Home Medications Allergies Coded Allergies: sulfamethoxazole (Verified Allergy, Intermediate, rash, SOB, 10/23/18) trimethoprim (Verified Allergy, Intermediate, rash, SOB, 10/23/18) gabapentin (Verified Allergy, Unknown, 05/29/21) Patient Home Medication List Home Medication List Reviewed: Yes ALPRAZolam (ALPRAZolam) 0.25 Mg Tablet, 0.25 MG PO Q8H PRN for ANXIETY, (Reported) Entered as Reported by: TOMI OCONNOR on 04/17/21 1700 Albuterol Sulfate (Ventolin Hfa) 1 Puff Puff, 2 PUFF IH Q4H PRN for SHORTNESS OF BREATH, (Reported) Entered as Reported by: EDGARDO RIVAS on 12/15/18 1531 Amlodipine Besylate (Norvasc) 10 Mg Tablet, 10 MG PO DAILY Prescribed by: RASHAUN HORN on 04/21/21 0920 Apixaban (Eliquis) 5 Mg Tablet, 5 MG PO BID, (Reported) Entered as Reported by: EDGARDO RIVAS on 10/03/18 1127 Atorvastatin Calcium (Atorvastatin Calcium) 20 Mg Tablet, 20 MG PO HS, (Repo rted) Entered as Reported by: EDGARDO RIVAS on 10/03/18 1127 Cefdinir (Cefdinir) 300 Mg Capsule, 300 MG PO BID Prescribed by: ANAY DARNELL on 05/10/21 1335 Cephalexin (Cephalexin) 500 Mg Capsule, 500 MG PO BID Prescribed by: FARHEEN FOY on 05/26/21 1522 Cholecalciferol (Vitamin D3) (Vitamin D3) 125 Mcg/1 Ml Drops, 125 MCG PO DAILY, (Reported) Entered as Reported by: TOMI OCONNOR on 06/17/20 1121 Diltiazem HCl (Diltiazem 24Hr ER) 240 Mg Cap.er.24h, 240 MG PO BID Prescribed by: RASHAUN HORN on 04/30/21 0943 Docusate Sodium (Docusate Sodium) 100 Mg Capsule, 100 MG PO TID PRN for CONSTIPATION-1ST LINE, (Reported) Entered as Reported by: TOMI OCONNOR on 04/17/21 1700 Doxazosin Mesylate (Doxazosin Mesylate) 1 Mg Tablet, 1 MG PO HS Prescribed by: ANAY DARNELL on 05/07/21 1007 Estradiol (Estradiol Tablet) 0.5 Mg Tablet, 0.5 MG PO DAILY, (Reported) Entered as Reported by: VICTOR MANUEL DASILVA on 05/28/16 1331 Fluticasone Propionate (Fluticasone Propionate) 16 Gm [place].susp, 2 SPRAYS NS HS PRN for ALLERGIES, (Reported) Entered as Reported by: EDGARDO RIVAS on 10/03/18 1127 Furosemide (Furosemide) 40 Mg Tablet, 40 MG PO DAILY PRN for FLUID RETENTION, (Reported) Entered as Reported by: TOMI OCONNOR on 05/22/19 0744 Ipratropium/Albuterol Sulfate (Iprat-Albut 0.5-3(2.5) mg/3 ml) 3 Ml Ampul.neb, 3 ML INH RTBID Prescribed by: ANAY ADRNELL on 04/21/21 0929 L. Acidophilus/Bulgaricus (Lactinex Chewable Tablet) 1 Each Tab.chew, 1 EACH PO TID Prescribed by: FARHEEN FOY on 05/26/21 152 Lisinopril (Lisinopril) 20 Mg Tablet, 40 MG PO DAILY Prescribed by: ANAY DARNELL on 04/21/21 0903 Loratadine (Loratadine) 10 Mg Tablet, 10 MG PO DAILY, (Reported) Entered as Reported by: TOMI OCONNOR on 05/22/19 0744 Metoprolol Succinate (Metoprolol Succinate) 25 Mg Tab.er.24h, 25 MG PO BID Prescribed by: RASHAUN HORN on 04/30/21 0943 Montelukast Sodium (Montelukast Sodium) 10 Mg Tablet, 10 MG PO HS, (Reported) Entered as Reported by: EDGARDO RIVAS on 10/03/18 1127 Potassium Chloride (Potassium Chloride) 10 Meq Capsule.er, 20 MEQ PO DAILY PRN for WHEN TAKING FUROSEMIDE, (Reported) Entered as Reported by: TOMI OCONNOR on 06/17/20 1121 Prednisone (Prednisone) 10 Mg Tab.ds.pk, 10 MG PO DAILY Prescribed by: ANAY DARNELL on 05/10/21 1335 Sertraline HCl (Sertraline HCl) 100 Mg Tablet, 150 MG PO DAILY, (Reported) Entered as Reported by: EDGARDO RIVAS on 10/03/18 112 Trazodone HCl (Trazodone HCl) 50 Mg Tablet, 50 MG PO HS, (Reported) Entered as Reported by: EDGARDO RIVAS on 10/03/18 112 Review of Systems Review of Systems Constitutional: chills; No dizziness, No fever; weakness Respiratory: cough Cardiovascular: no symptoms reported Gastrointestinal: No diarrhea; nausea; No vomiting Genitourinary: no symptoms reported Psychiatric/Neurological: Weakness Past Vypuxah-Qudfsg-Rjlpla Hx Patient Social History Tobacco Use?: No Substance use?: No Alcohol Use?: No Immunizations Up To Date Tetanus Booster (TDap): Less than 5yrs First/Initial COVID19 Vaccinat: 09/2020 Second COVID19 Vaccination Jamar: 09/2020 Third COVID19 Vaccination Date: 09/2020 Seasonal Allergies Seasonal Allergies: Yes Past Medical History Surgery/Hospitalization HX: 03/2021 COPD/PNEUMONIA, AFIB RVR, HEART ABLATIONS, BLADDER ISSUES, 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 Surgeries: Yes (HIATAL HERNIA, L TKR, R HIP REPLACEMENT, BLADDER x8, BILAT FOOT SX) Orthopedic Respiratory: Yes Asthma, Sleep Apnea Currently Using CPAP: Yes Currently Using BIPAP: No Cardiac: Yes Atrial Fibrillation, Chronic Edema/Swelling, High Cholesterol, Hypertension Neurological: No Reproductive Disorders: No DIRECTOR TRADE History: Menopausal Sexually Transmitted Disease: No Genitourinary: Yes (BOTOX FOR URINARY INCONT Q 6 MONTHS) Kidney Infection, Bladder Infection Gastrointestinal: Yes Gastroesophageal Reflux Musculoskeletal: Yes Arthritis, Chronic Back Pain Endocrine: No Diabetes, Non-Insulin dep Cataract Loss of Vision: Bilateral Hearing Impairment: Denies Cancer: No Psychosocial: Yes Anxiety, Depression Integumentary: No Blood Disorders: No Adverse Reaction/Blood Tranf: No Family Medical History Arthritis 19 MOTHER Cataracts 19 FATHER 19 MOTHER Colon cancer 19 FATHER Deafness or hearing loss 19 FATHER Dementia 19 FATHER FH: macular degeneration 19 MOTHER FH: prostate cancer 19 FATHER FH: skin cancer 19 FATHER Gout 19 MOTHER Hypertension 19 FATHER 19 MOTHER Myocardial infarction 19 FATHER 19 MOTHER Physical Exam Vital Signs Vital Signs - First Documented 07/16/22 07/16/22 15:55 18:15 Temp 38.1 Pulse 81 Resp 18 B/P (MAP) 142/92 (109) Pulse Ox 94 O2 Delivery Room Air O2 Flow Rate 2.00 Capillary Refill : Less Than 3 Seconds Height, Weight, BMI Height: 5'7.00" Weight: 291lbs. 6.0oz. 132.135293yy; 42.00 BMI Method:Stated General Appearance: No Apparent Distress, WD/WN HEENT: PERRL/EOMI Neck: Full Range of Motion, Normal Inspection, Supple Respiratory: Lungs Clear, Normal Breath Sounds, No Accessory Muscle Use, No Respiratory Distress Cardiovascular: Regular Rate, Rhythm, Systolic Murmur Neurologic/Psychiatric: Alert, Oriented x3 Skin: Normal Color, Warm/Dry Progress/Results/Core Measures Suspected Sepsis SIRS Temperature: Pulse: 81 Respiratory Rate: 18 Laboratory Tests 07/16/22 18:00: White Blood Count 7.0 Blood Pressure 142 /92 Mean: 109 Laboratory Tests 07/16/22 18:00: Creatinine 0.82, Platelet Count 185, Total Bilirubin 0.8 Results/Orders Lab Results Laboratory Tests Test 07/16/22 15:59 07/16/22 18:00 07/16/22 18:13 Range/Units Influenza Type A (RT-PCR) Detected H Not Detecte Influenza Type B (RT-PCR) Not Detected Not Detecte SARS-CoV-2 RNA (RT-PCR) Not Detected Not Detecte White Blood Count 7.0 4.3-11.0 10^3/uL Red Blood Count 4.33 3.80-5.11 10^6/uL Hemoglobin 12.8 11.5-16.0 g/dL Hematocrit 38 35-52 % Mean Corpuscular Volume 88 80-99 fL Mean Corpuscular Hemoglobin 30 25-34 pg Mean Corpuscular Hemoglobin Concent 34 32-36 g/dL Red Cell Distribution Width 14.0 10.0-14.5 % Platelet Count 185 130-400 10^3/uL Mean Platelet Volume 9.4 9.0-12.2 fL Immature Granulocyte % (Auto) 1 % Neutrophils (%) (Auto) 84 H 42-75 % Lymphocytes (%) (Auto) 7 L 12-44 % Monocytes (%) (Auto) 8 0-12 % Eosinophils (%) (Auto) 0 0-10 % Basophils (%) (Auto) 0 0-10 % Neutrophils # (Auto) 5.9 1.8-7.8 10^3/uL Lymphocytes # (Auto) 0.5 L 1.0-4.0 10^3/uL Monocytes # (Auto) 0.6 0.0-1.0 10^3/uL Eosinophils # (Auto) 0.0 0.0-0.3 10^3/uL Basophils # (Auto) 0.0 0.0-0.1 10^3/uL Immature Granulocyte # (Auto) 0.1 0.0-0.1 10^3/uL Neutrophils % (Manual) 87 % Lymphocytes % (Manual) 10 % Monocytes % (Manual) 3 % Blood Morphology Comment NORMAL Sodium Level 138 135-145 MMOL/L Potassium Level 3.8 3.6-5.0 MMOL/L Chloride Level 105 98-107 MMOL/L Carbon Dioxide Level 19 L 21-32 MMOL/L Anion Gap 14 5-14 MMOL/L Blood Urea Nitrogen 13 7-18 MG/DL Creatinine 0.82 0.60-1.30 MG/DL Estimat Glomerular Filtration Rate 75 BUN/Creatinine Ratio 16 Glucose Level 102 70-105 MG/DL Calcium Level 8.7 8.5-10.1 MG/DL Corrected Calcium 8.8 8.5-10.1 MG/DL Total Bilirubin 0.8 0.1-1.0 MG/DL Aspartate Amino Transf (AST/SGOT) 18 5-34 U/L Alanine Aminotransferase (ALT/SGPT) 19 0-55 U/L Alkaline Phosphatase 75 40-136 U/L Total Protein 6.3 L 6.4-8.2 GM/DL Albumin 3.9 3.2-4.5 GM/DL Urine Color YELLOW Urine Clarity SL CLOUDY Urine pH 6.0 5-9 Urine Specific [place] >=1.030 1.016-1.022 Urine Protein NEGATIVE NEGATIVE Urine Glucose (UA) NEGATIVE NEGATIVE Urine Ketones NEGATIVE NEGATIVE Urine Nitrite POSITIVE H NEGATIVE Urine Bilirubin NEGATIVE NEGATIVE Urine Urobilinogen 0.2 < = 1.0 MG/DL Urine Leukocyte Esterase TRACE H NEGATIVE Urine RBC (Auto) 1+ H NEGATIVE Urine RBC 0-2 /HPF Urine WBC 25-50 H /HPF Urine Squamous Epithelial Cells 0-2 /HPF Urine Crystals NONE /LPF Urine Bacteria LARGE H /HPF Urine Casts NONE /LPF Urine Mucus NEGATIVE /LPF Urine Culture Indicated YES My Orders Orders - PILAR WALTON [employer]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 Covid 19 Inhouse Test (07/16/22 15:56) Influenza A And B By Pcr (07/16/22 15:56) Cbc With Automated Diff (07/16/22 16:14) Comprehensive Metabolic Panel (07/16/22 16:14) Urinalysis (07/16/22 16:14) Urine Culture (07/16/22 16:14) Chest 1 View, Ap/Pa Only (07/16/22 16:14) Ed Iv/Invasive Line Start (07/16/22 16:14) Ekg Tracing (07/16/22 16:14) O2 (07/16/22 16:14) Ns Iv 1000 Ml (Sodium Chloride 0.9%) (07/16/22 16:15) Ct Head/Cervical Spine Wo (07/16/22 16:14) Straight Cath For Spec.-Adult (07/16/22 17:58) Manual Differential (07/16/22 18:00) Ceftriaxone 1 Gm Pre-Mix (Rocephin 1 Gm (07/16/22 18:45) Ed Admission (Communication) (07/16/22 18:42) Medications Given in ED Current Medications Medications Dose Ordered Sig/Lisa Route Start Time Stop Time Status Last Admin Dose Admin Ceftriaxone Sodium/Dextrose 50 ml @ 100 mls/hr ONCE ONCE IV 07/16/22 18:45 07/16/22 19:14 DC 07/16/22 18:48 100 MLS/HR Vital Signs/I&O 07/16/22 07/16/22 15:55 18:15 Temp 38.1 Pulse 81 Resp 18 B/P (MAP) 142/92 (109) Pulse Ox 94 98 O2 Delivery Room Air Nasal Cannula O2 Flow Rate 2.00 Capillary Refill : Less Than 3 Seconds Blood Pressure Mean: 109 Progress Note : Time: 16:22 Progress Note Due to complaints of weakness with a fall EKG, labs, CT head, and IV fluids ordered. Recent exposure to influenza, influenza and COVID test ordered. Patient has a history of recurrent UTIs without symptoms. Urinalysis ordered. ECG Initial ECG Impression Date: Jul 16, 2022 Initial ECG Rhythm: Normal Sinus Initial ECG Intervals: Normal Comment RBBB, unchanged from previous Diagnostic Imaging Diagonstic Imaging: CT Plain Films/CT/US/NM/MRI: head, other (neck) Comments Date of Exam:07/16/22 CT HEAD/CERVICAL SPINE WO PROCEDURE: CT head and CT cervical spine without contrast. TECHNIQUE: Multiple contiguous axial images were obtained through the brain and cervical spine without the use of intravenous contrast. Sagittal and coronal reformations through the cervical spine were then performed. Auto Exposure Controls were utilized during the CT exam to meet ALARA standards for radiation dose reduction. INDICATION: Trauma COMPARISON: None available. FINDINGS: Head: No hyperdense hemorrhage or space-occupying mass. No hydrocephalus or midline shift. No evidence of territorial infarct. Basilar cisterns are patent. No focal scalp swelling. No skull fracture. Mucosal thickening in the ethmoid and sphenoid sinuses. Mastoid air cells are clear. Cervical spine: No acute fracture or traumatic malalignment. No high-grade spinal canal narrowing. Airway is patent. No cervical lymphadenopathy. Visualized thyroid is normal. IMPRESSION: 1. No acute intracranial process or skull fracture. 2. No acute fracture or traumatic malalignment of the cervical spine. Dictated by: Dictated on workstation # [id number] Dict: 07/16/221721 Trans: 07/16/22 172 [facility] [id number] Interpreted by: WILMAR HESS MD Electronically signed by: WILMAR HESS MD 07/16/221724 Diagonstic Imaging: Xray Plain Films/CT/US/NM/MRI: chest Comments Date of Exam:07/16/22 CHEST 1 VIEW, AP/PA ONLY CHEST 1 VIEW, AP/PA ONLY Indication: Cough Comparison: 06/26/2021 Findings: No focal airspace disease in the visualized lungs. No pleural effusion or pneumothorax. Normal cardiomediastinal silhouette. Impression: 1. No acute cardiopulmonary process by portable radiography. Dictated by: Dictated on workstation # [id number] Dict: 07/16/221728 Trans: 07/16/221729 [facility] [id number] Interpreted by: WILMAR HESS MD Electronically signed by: WILMAR HESS MD 07/16/221729 Departure Communication (Admissions) Time/Spoke to Admitting Phy: 18:[address] Darnell about admission. Impression Primary Impression: Upper respiratory infection Qualified Codes: J06.9 - Acute upper respiratory infection, unspecified Additional Impressions: UTI (urinary tract infection) Qualified Codes: N30.00 - Acute cystitis without hematuria Influenza Disposition: ADMITTED INPATIENT Condition: Stable Admissions Decision to Admit Reason: Admit from ER (General) Decision to Admit/Date: Jul 16, 2022 Time/Decision to Admit Time: 18:10 Departure-Patient Inst. Referrals: ANAY DARNELL DO (PCP/Family) Primary Care Physician PILAR WALTON APRN Jul 16, 2022 16:23
--- NOTE | 2022-07-16 17:26 | Diagnostic Imaging Report ---
PROCEDURE: CT head and CT cervical spine without contrast. TECHNIQUE: Multiple contiguous axial images were obtained through the brain and cervical spine without the use of intravenous contrast. Sagittal and coronal reformations through the cervical spine were then performed. Auto Exposure Controls were utilized during the CT exam to meet ALARA standards for radiation dose reduction. INDICATION: Trauma COMPARISON: None available. FINDINGS: Head: No hyperdense hemorrhage or space-occupying mass. No hydrocephalus or midline shift. No evidence of territorial infarct. Basilar cisterns are patent. No focal scalp swelling. No skull fracture. Mucosal thickening in the ethmoid and sphenoid sinuses. Mastoid air cells are clear. Cervical spine: No acute fracture or traumatic malalignment. No high-grade spinal canal narrowing. Airway is patent. No cervical lymphadenopathy. Visualized thyroid is normal. IMPRESSION: 1. No acute intracranial process or skull fracture. 2. No acute fracture or traumatic malalignment of the cervical spine. Dictated by: Dictated on workstation # [id number]
--- NOTE | 2022-07-16 17:31 | Diagnostic Imaging Report ---
CHEST 1 VIEW, AP/PA ONLY Indication: Cough Comparison: 06/26/2021 Findings: No focal airspace disease in the visualized lungs. No pleural effusion or pneumothorax. Normal cardiomediastinal silhouette. Impression: 1. No acute cardiopulmonary process by portable radiography. Dictated by: Dictated on workstation # [id number]
[2022-07-16 18:17] LABS: BASOPHILS % (AUTO) 0 % (0-10); EOSINOPHILS % (AUTO) 0 % (0-10); HEMATOCRIT 38 % (35-52); HEMOGLOBIN 12.8 g/dL (11.5-16.0); LYMPHOCYTES # (AUTO) 0.5 10^3/uL (1.0-4.0); LYMPHOCYTES % (AUTO) 7 % (12-44); MEAN CORPUSCULAR HEMOGLOBIN 30 pg (25-34); MEAN CORPUSCULAR HGB CONC 34 g/dL (32-36); MEAN CORPUSCULAR VOLUME 88 fL (80-99); MEAN PLATELET VOLUME 9.4 fL (9.0-12.2); MONOCYTES # (AUTO) 0.6 10^3/uL (0.0-1.0); MONOCYTES % (AUTO) 8 % (0-12); NEUTROPHILS # (AUTO) 5.9 10^3/uL (1.8-7.8); NEUTROPHILS % (AUTO) 84 % (42-75); PLATELET COUNT 185 10^3/uL (130-400)
[2022-07-16 18:19] LABS: BILIRUBIN,URINE NEGATIVE (NEGATIVE); CLARITY,URINE SL CLOUDY; COLOR,URINE YELLOW; GLUCOSE, URINE (UA) NEGATIVE (NEGATIVE); KETONES,URINE NEGATIVE (NEGATIVE); LEUKOCYTE ESTERASE ,URINE TRACE (NEGATIVE); NITRITE,URINE POSITIVE (NEGATIVE); PROTEIN,URINE NEGATIVE (NEGATIVE)
[2022-07-16 18:22] LABS: ALBUMIN 3.9 GM/DL (3.2-4.5); POTASSIUM 3.8 MMOL/L (3.6-5.0)
[2022-07-16 18:23] LABS: CALCIUM 8.7 MG/DL (8.5-10.1)
[2022-07-16 18:25] LABS: TOTAL PROTEIN 6.3 GM/DL (6.4-8.2)
[2022-07-16 18:26] LABS: BILIRUBIN,TOTAL 0.8 MG/DL (0.1-1.0)
[2022-07-16 18:28] LABS: CREATININE SERUM 0.82 MG/DL (0.60-1.30)
[2022-07-16 18:30] LABS: BACTERIA,URINE LARGE /HPF; RBC,URINE 0-2 /HPF; SQUAMOUS EPITHELIAL CELL,UR 0-2 /HPF; WBC,URINE 25-50 /HPF
[2022-07-16] MEDS ORDERED: cefTRIAXone 1 GM PRE-MIX 50 ML IV ONE (18:45)
[2022-07-16 18:50] LABS: LYMPHOCYTES % (MANUAL) 10 %; MONOCYTES % (MANUAL) 3 %; NEUTROPHILS % (MANUAL) 87 %; RBC MORPH NORMAL
[2022-07-16 20:15] VITALS: BP 155/77
[2022-07-16] MEDS ORDERED: ALPRAZolam 0.25 MG (XANAX) TAB PO PRN (20:30)
[2022-07-16] MEDS ORDERED: ONDANSETRON 4 MG (ZOFRAN) ORAL DISSOLVE TAB PO PRN (20:30)
[2022-07-16] MEDS ORDERED: BISACODYL 10 MG SUPP (DULCOLAX) PR PRN (20:30)
[2022-07-16] MEDS ORDERED: CALCIUM CARBONATE 500 MG (TUMS) TAB.CHEW PO PRN (20:30)
[2022-07-16] MEDS ORDERED: ACETAMINOPHEN 325 MG TABLET PO PRN (20:30)
[2022-07-16] MEDS ORDERED: diphenhydrAMINE 50 MG/ML INJ (BENADRYL) IVP PRN (20:30)
[2022-07-16] MEDS ORDERED: diphenhydrAMINE 25 MG TAB (BENADRYL) PO PRN (20:30)
[2022-07-16] MEDS ORDERED: MILK OF MAGNESIA 400 MG/5 ML 30 ML UDC PO PRN (20:30)
[2022-07-16] MEDS ORDERED: MELATONIN 3 MG TABLET PO PRN (20:30)
[2022-07-16] MEDS ORDERED: ANTACID SUSP 30 ML UDC (MYLANTA) PO PRN (20:30)
[2022-07-16] MEDS ORDERED: ONDANSETRON 4 MG/2 ML (SDV) Z0FRAN IV PRN (20:30)
[2022-07-16] MEDS ORDERED: LACTULOSE SYRUP 10GM/15ML (ENULOSE) 30ML UDC PO PRN (20:30)
[2022-07-16] MEDS ORDERED: morphine INJ 4 MG/ML 1 ML (VIAL/SYRINGE) IV PRN (20:30)
[2022-07-16] MEDS ORDERED: polyethylene glycoL POWDER 17 GM (MIRALAX) PACK PO PRN (20:30)
[2022-07-16] MEDS ORDERED: SERTRALINE 100 MG (ZOLOFT) TAB PO SCH (21:00)
[2022-07-16] MEDS: FLECAINIDE 100 MG (TAMBOCOR) TAB PO SCH (22:05)
[2022-07-16] MEDS: SENNOSIDES 8.6 MG (SENOKOT) TAB PO SCH (22:05)
[2022-07-16] MEDS: traZODone 50 MG (DESYREL) TAB PO SCH (22:06)
[2022-07-16] MEDS: APIXABAN 5 MG (ELIQUIS) TABLET PO SCH (22:06)
[2022-07-16] MEDS: doxAzosin 4 MG (CARDURA) TAB PO SCH (22:06)
[2022-07-16] MEDS: DOCUSATE SODIUM 100 MG (COLACE) CAP PO SCH (22:07)
[2022-07-16] MEDS: MONTELUKAST 10 MG (SINGULAIR) TAB PO SCH (22:07)
[2022-07-16] MEDS: OSELTAMIVIR 75 MG (TAMIFLU) CAPSULE PO SCH (22:07)
[2022-07-16] MEDS: RT-ALBUTEROL/IPRATROPIUM 3 ML (DUONEB) VIAL INH SCH (22:45)
[2022-07-17] VITALS (7 sets, daily range): BP systolic 119–151; BP diastolic 59–77
[2022-07-17] MEDS: RT-ALBUTEROL/IPRATROPIUM 3 ML (DUONEB) VIAL INH SCH ×6 (02:40→22:50)
--- NOTE | 2022-07-17 04:59 | History & Physical ---
History of Present Illness HPI/Chief Complaint Chief complaint: Clinical decompensation from influenza A HPI: This is a 77-year-old female clinic patient of mine for 19 years who has a past medical history of paroxysmal atrial fibrillation, diastolic heart failure, obstructive sleep apnea and hypertension with chronic lymphedema who presents following worsening status with cough and shortness of breath. Influenza A was diagnosed on swab but COVID was negative. She was admitted placed on broad- spectrum antibiotics for recurrent UTI and Tamiflu. She requires oxygen 24/ and has already been up with therapy. Source: patient Exam Limitations: no limitations Date Seen 07/17/22 Time Seen by a Provider: 11:00 Attending Physician Breanna Broderick DO PCP Admitting Physician: Breanna Broderick DO Attending Physician: Breanna Broderick DO Referring Physician Date of Admission Jul 16, 2022 at 18:48 Home Medications & Allergies Home Medications Reviewed patient Home Medication Reconciliation performed by pharmacy medication reconciliations biotechnician and/or nursing. Patients Allergies have been reviewed. Allergies Allergies Coded Allergies sulfamethoxazole (Verified Allergy, Intermediate, rash, SOB, 10/23/18) trimethoprim (Verified Allergy, Intermediate, rash, SOB, 10/23/18) gabapentin (Verified Allergy, Unknown, 05/29/21) Past [place]-Gkhxgp-Obpynm Hx Past Med/Social Hx: Reviewed Nursing Past Med/Soc Hx, Reviewed and Corrections made Patient Social History Marrital Status: Employed/Student: retired Alcohol Use: Denies Use Alcohol Beverage of Choice: Wine Smoking Status: Never a Smoker Type Used: Cigarettes 2nd Hand Smoke Exposure: No Recent Hopitalizations: No Immunizations Up To Date Tetanus Booster (TDap): Less than 5yrs Date of Pneumonia Vaccine: Apr 04, 2020 Date of Influenza Vaccine: May 08, 2022 Seasonal Allergies Seasonal Allergies: Yes Past Medical History Surgeries: Orthopedic Respiratory: Asthma, Sleep Apnea Currently Using CPAP: Yes Currently Using BIPAP: No Cardiac: Atrial Fibrillation, Chronic Edema/Swelling, High Cholesterol, Hypertension Reproductive: No Sexually Transmitted Disease: No Menopausal Genitourinary: Kidney Infection, Bladder Infection Gastrointestinal: Gastroesophageal Reflux Musculoskeletal: Arthritis, Chronic Back Pain Endocrine: Diabetes, Non-Insulin dep HEENT: Cataract Loss of Vision: Bilateral Hearing Impairment: Denies Psychosocial: Anxiety, Depression History of Blood Disorders: No Adverse Reaction to Blood Singh: No Family History Arthritis 19 MOTHER Cataracts 19 FATHER 19 MOTHER Colon cancer 19 FATHER Deafness or hearing loss 19 FATHER Dementia 19 FATHER FH: macular degeneration 19 MOTHER FH: prostate cancer 19 FATHER FH: skin cancer 19 FATHER Gout 19 MOTHER Hypertension 19 FATHER 19 MOTHER Myocardial infarction 19 FATHER 19 MOTHER Review of Systems Constitutional: see HPI, malaise, weakness EENTM: no symptoms reported Respiratory: cough, dyspnea on exertion, short of breath Cardiovascular: no symptoms reported Gastrointestinal: no symptoms reported Genitourinary: no symptoms reported Musculoskeletal: back pain, joint pain Skin: no symptoms reported Psychiatric/Neurological: No Symptoms Reported All Other Systems Reviewed Negative Unless Noted: Yes Physical Exam Physical Exam Vital Signs Vital Signs - First Documented 07/16/22 07/16/22 15:55 18:15 Temp 38.1 Pulse 81 Resp 18 B/P (MAP) 142/92 (109) Pulse Ox 94 O2 Delivery Room Air O2 Flow Rate 2.00 Capillary Refill : Less Than 3 Seconds Height, Weight, BMI Height: 5'7.00" Weight: 291lbs. 6.0oz. 132.095762zt; 42.97 BMI Method:Stated General Appearance: WD/WN, Anxious, Chronically ill, Mild Distress, Obese HEENT: PERRL/EOMI Neck: Full Range of Motion, Normal Inspection, Supple Respiratory: Lungs Clear, Normal Breath Sounds, No Accessory Muscle Use, No Respiratory Distress, Decreased Breath Sounds Cardiovascular: Regular Rate, Rhythm, Systolic Murmur Neurologic/Psychiatric: Alert, Oriented x3, No Motor/Sensory Deficits, Normal Mood/Affect, clam sorter II-XII Norm as Tested Skin: Normal Color, Warm/Dry Results Results/Procedures Labs Laboratory Tests 07/16/22 18:00 07/17/22 05:20 Patient resulted labs reviewed. Assessment/Plan Admission Diagnosis Assessment: Influenza A with clinical decompensation Asthma/COPD with current acute exacerbation Debility chronic Recurrence of atrial fibrillation status post ablations now chronic A. fib Hypertension Obstructive sleep apnea on CPAP with oxygen Previous 2019 Nocturnal hypoxia on oxygen Anxiety Depression Recurrent UTI history with acute UTI Plan: Rocephin Supportive care Tamiflu Hep-Lock IV fluid Therapy Admission Status: Inpatient Order (span 2 midnights) Reason for Inpatient Admission: Influenza A with acute on chronic respiratory failure Diagnosis/Problems Diagnosis/Problems (1) Influenza Status: Acute (2) UTI (urinary tract infection) Status: Acute Qualifiers: Urinary tract infection type: acute cystitis Hematuria presence: without hematuria Qualified Codes: N30.00 - Acute cystitis without hematuria (3) ADOLPH on CPAP Status: Chronic (4) Anxiety Status: Chronic (5) Persistent atrial fibrillation (6) Chronic diastolic heart failure (7) Primary hypertension (8) Hyperlipidemia Status: Chronic BREANNA BRODERICK DO Jul 17, 2022 04:59
[2022-07-17 05:46] LABS: BASOPHILS % (AUTO) 0 % (0-10); EOSINOPHILS % (AUTO) 0 % (0-10); HEMATOCRIT 34 % (35-52); HEMOGLOBIN 11.5 g/dL (11.5-16.0); LYMPHOCYTES # (AUTO) 0.5 10^3/uL (1.0-4.0); LYMPHOCYTES % (AUTO) 10 % (12-44); MEAN CORPUSCULAR HEMOGLOBIN 30 pg (25-34); MEAN CORPUSCULAR HGB CONC 34 g/dL (32-36); MEAN CORPUSCULAR VOLUME 89 fL (80-99); MONOCYTES # (AUTO) 0.5 10^3/uL (0.0-1.0); MONOCYTES % (AUTO) 10 % (0-12); NEUTROPHILS # (AUTO) 3.9 10^3/uL (1.8-7.8); NEUTROPHILS % (AUTO) 79 % (42-75); PLATELET COUNT 165 10^3/uL (130-400); WHITE BLOOD COUNT 4.9 10^3/uL (4.3-11.0)
[2022-07-17 06:05] LABS: ALBUMIN 3.4 GM/DL (3.2-4.5); POTASSIUM 3.5 MMOL/L (3.6-5.0)
[2022-07-17 06:06] LABS: CALCIUM 8.3 MG/DL (8.5-10.1)
[2022-07-17 06:07] LABS: TOTAL PROTEIN 5.5 GM/DL (6.4-8.2)
[2022-07-17 06:09] LABS: BILIRUBIN,TOTAL 0.5 MG/DL (0.1-1.0)
[2022-07-17 06:11] LABS: CREATININE SERUM 0.76 MG/DL (0.60-1.30)
[2022-07-17] MEDS: SENNOSIDES 8.6 MG (SENOKOT) TAB PO SCH ×2 (07:57→21:04)
[2022-07-17] MEDS: APIXABAN 5 MG (ELIQUIS) TABLET PO SCH ×2 (07:58→21:00)
[2022-07-17] MEDS: DOCUSATE SODIUM 100 MG (COLACE) CAP PO SCH ×2 (07:58→21:04)
[2022-07-17] MEDS: ESTRADIOL 1 MG TAB (ESTRACE) PO SCH (07:58)
[2022-07-17] MEDS: lisINopril 20 MG (PRINIVIL) TABLET PO SCH (07:58)
[2022-07-17] MEDS: LORATADINE (CLARITIN) 10 MG TAB PO SCH (07:58)
[2022-07-17] MEDS: FLECAINIDE 100 MG (TAMBOCOR) TAB PO SCH ×2 (07:58→20:59)
[2022-07-17] MEDS: SERTRALINE 100 MG (ZOLOFT) TAB PO SCH (07:59)
[2022-07-17] MEDS: OSELTAMIVIR 75 MG (TAMIFLU) CAPSULE PO SCH ×2 (08:19→21:00)
--- NOTE | 2022-07-17 09:39 | Physical Therapy Evaluation ---
PT Evaluation-General Medical Diagnosis Admission Date Jul 16, 2022 at 18:48 Medical Diagnosis: influenza A Onset Date: Jul 16, 2022 Therapy Diagnosis Therapy Diagnosis: impaired mobility Height/Weight Height (Feet): 5 Height (Inches): 7.00 Weight (Pounds): 291 Weight (Ounces): 6.0 Precautions Precautions/Isolations: Droplet Isolation Weight Bear Status Right Lower Extremity: Right Weight Bearing/Tolerated Left Lower Extremity: Left Weight Bearing/Tolerated Referral Physician: Breanna Broderick DO Reason for Referral: Evaluation/Treatment Medical History Pertinent Medical History: Atrial Fib, DM, HTN Additional Medical History Past Medical History Surgeries: Orthopedic Respiratory: Asthma, Sleep Apnea Currently Using CPAP: Yes Currently Using BIPAP: No Cardiac: Atrial Fibrillation, Chronic Edema/Swelling, High Cholesterol, Hypertension Reproductive: No Sexually Transmitted Disease: No Menopausal Genitourinary: Kidney Infection, Bladder Infection Gastrointestinal: Gastroesophageal Reflux Musculoskeletal: Arthritis, Chronic Back Pain Endocrine: Diabetes, Non-Insulin dep HEENT: Cataract Loss of Vision: Bilateral Hearing Impairment: Denies Psychosocial: Anxiety, Depression History of Blood Disorders: No Adverse Reaction to Blood Singh: No Reviewed History: Yes Social History Patient states she lives in prison, alone, level entry Prior Prior Level of Function SCALE: Activities may be completed with or without assistive devices. 3-Pqvzfpyhod-udnnfax completes the activity by him/herself with no assistance from a helper. 5-Set-up or Clean-up Assistance-helper sets up or cleans up; patient completes activity. [place] assists only prior to or following the activity. 4-Supervision or Touching Assistance-helper provides verbal cues and/or touching/steadying and/or contact guard assistance as patient completes activity. Assistance may be provided throughout the activity or intermittently. 3-Partial/Moderate Assistance-helper does LESS THAN HALF the effort. [place] lifts, holds or supports trunk or limbs, but provides less than half the effort. 2-Substantial/Maximal Assistance-helper does MORE THAN HALF the effort. [place] lifts or holds trunk or limbs and provides more than half the effort. 9-Kedppzczf-qykmvj does ALL the effort. Patient does none of the effort to complete the activity. Or, the assistance of 2 or more helpers is required for the patient to complete the activity. If activity was not attempted, code reason: 7-Patient Refused. 9-Not Applicable-not attempted and the patient did not perform the activity b efore the current illness, exacerbation or injury. 10-Not Attempted due to Environmental Limitations-(lack of equipment, weather restraints, etc.). 88-Not Attempted due to Medical Conditions or Safety Concerns. Bed Mobility: 6 Transfers (B,C,W/C): 6 Gait: 6 Indoor Mobility (Ambulation): Independent PT Evaluation-Current Subjective Patient in recliner pre tx, agrees to PT, has no complaints of pain. Pt/Family Goals to be independent at home Objective Patient Orientation: Person, Place, Situation Attachments: Oxygen, IV ROM/Strength ROM Lower Extremities WNL Strength Lower Extremities grossly 4/5 BLE Sensory Hearing: Functional Sensation Right Lower Extremit: Intact Sensation Left Lower Extremity: Intact Transfers Sit to Stand (QC): 4 Chair/Nsc-li-Ulrdp Xfer(QC): 4 SBA Gait Does the Patient Walk?: Yes Mode of Locomotion: Walk Anticipated Mode of Locomotion: Walk Walk 10 feet (QC): 4 Distance: 50' Gait Assistive Device: FWW Comments/Gait Description ambulated about her room for a total of about 50', SBA, slow but steady ambulation Balance Sitting Static: Normal Sitting Dynamic: Normal Standing Static: Good Standing Dynamic: Good Treatment BLE seated exercises x20 (AP, LAQ) Assessment/Needs Patient in recliner post tx with nurse call, phone, tray, all needs met. Patient has impaired mobility but only needs SBA for transfers and ambulation Rehab Potential: Fair PT Crushing Machine Operator Goals Crushing Machine Operator Goals PT Crushing Machine Operator Goals Time Frame: Jul 24, 2022 Roll Left & Right (QC): 6 Sit to Lying (QC): 6 Lying-Sitting on Side/Bed(QC): 6 Sit to Stand (QC): 6 Chair/Gac-yc-Kuqmq Xfer(QC): 6 Walk 10 feet (QC): 6 Walk 50ft with 2 Turns (QC): 6 Walk 150 ft (QC): 6 PT Plan Problem List Problem List: Activity Tolerance, Functional Strength, Safety, Balance, Gait, Transfer, Bed Mobility, ROM Treatment/Plan Treatment Plan: Continue Plan of Care Treatment Plan: Bed Mobility, Education, Functional Activity Sesar, Functional Strength, Gait, Safety, Therapeutic Exercise, Transfers Treatment Duration: Jul 24, 2022 Frequency: 6 times per week Estimated Hrs Per Day: .25 hour per day Patient and/or Family Agrees t: Yes Safety Risks/Education Patient Education: Gait Training, Transfer Techniques, Correct Positioning, Safety Issues Teaching Recipient: Patient Teaching Methods: Demonstration, Discussion Response to Teaching: Reinforcement Needed Discharge Recommendations Plan Patient will perform bed mobility and transfer training, balance and endurance training, functional strengthening, gait training, and education, to improve functional mobility and independence at home. Therapy Discharge Recommendati: Home & Family, Post Acute PT Time Time In: 910 Time Out: 926 DATE: Jul 17, 2022 Total Billed Treatment Time: 16 Total Billed Treatment 1 visit EVL 16' ABHISHEK THOMAS PT Jul 17, 2022 09:39
[2022-07-17] MEDS: RT--FLUTICASONE/SALMETEROL 113-14 (AIRDUO RespiCLICK) IH SCH ×2 (09:40→19:12)
--- NOTE | 2022-07-17 10:45 | Occupational Therapy Eval ---
OT Evaluation-General/PLF Medical Diagnosis Admission Date Jul 16, 2022 at 18:48 Medical Diagnosis: influenza A Onset Date: Jul 16, 2022 Therapy Diagnosis Therapy Diagnosis: reduced endurance/SOA Height/Weight Height (Feet): 5 Height (Inches): 7.00 Weight (Pounds): 291 Weight (Ounces): 6.0 Precautions Precautions/Isolations: Droplet Isolation, Fall Prevention Referral Physician: Breanna Broderick DO Referral Reason: Evaluation/Treatment Medical History Pertinent Medical History: Atrial Fib, DM, HTN Current History Pt presented to hospital with cough, runny nose, weakness and s/p a fall. Per patient, she lives in alone in a [facility] apartment. She states she just moved there 2 days ago. Pt was indep with adls and iadls but reports that she will be having a housekeeper head 1x biweekly. Pt uses a cane at baseline and oxygen PRN. Reviewed History: Yes Social History Home: Apartment Current Living Status: Alone Entry Into Home: Level Entry ADL-Prior Level of Function SCALE: Activities may be completed with or without assistive devices. 9-Rsbccketct-hnmdxdj completes the activity by him/herself with no assistance from a helper. 5-Set-up or Clean-up Assistance-helper sets up or cleans up; patient completes activity. [place] assists only prior to or following the activity. 4-Supervision or Touching Assistance-helper provides verbal cues and/or touching/steadying and/or contact guard assistance as patient completes activity. Assistance may be provided throughout the activity or intermittently. 3-Partial/Moderate Assistance-helper does LESS THAN HALF the effort. [place] lifts, holds or supports trunk or limbs, but provides less than half the effort. 2-Substantial/Maximal Assistance-helper does MORE THAN HALF the effort. [place] lifts or holds trunk or limbs and provides more than half the effort. 8-Rmplhjzjl-bgtocp does ALL the effort. Patient does none of the effort to complete the activity. Or, the assistance of 2 or more helpers is required for the patient to complete the activity. If activity was not attempted, code reason: 7-Patient Refused. 9-Not Applicable-not attempted and the patient did not perform the activity before the current illness, exacerbation or injury. 10-Not Attempted due to Environmental Limitations-(lack of equipment, weather restraints, etc.). 88-Not Attempted due to Medical Conditions or Safety Concerns. Self Care: Independent Functional Cognition: Independent DME/Equipment: Bath Chair, Grab Bars, Shower Drive Self: Yes OT Current Status Subjective Pt denies pain, feels a little weak but overall much better. Appearance Pt returned to sitting in recliner, all needs within reach. Mental Status/Objective Patient Orientation: Person, Place, Situation Attachments: IV, Oxygen, Telemetry Current Glasses/Contacts: Yes Hearing Aids: No Dentures/Partials: No Hand Dominance: Right Upper Extremity ROM WFL Upper Extremity Strength WFL ADL-Treatment Eating (QC): 6 Oral Hygiene (QC): 5 On/Off Footwear (QC): 4 Pt able to don/doff bilateral socks with extra time/effort and SOA exhibited when bending forward. Pt could benefit from instruction on AE. She reports that she owns a language pathologist but does not use if for ADLs. Willing to learn next session. Pt able to stand with SBA, steady on feet. At this time, pt may benefit from short term OT to address energy conservation, adaptive equipment use, and overall endurance. Education OT Patient Education: Correct positioning, Energy conservation, Modified ADL techniques, Purpose of tx/functional activities, Use of adapted equipment Teaching Recipient: Patient Teaching Methods: Demonstration, Discussion Response to Teaching: Verbalize Understanding, Return Demonstration, Reinforcement Needed OT Sales Special Agent Goals [facility] Goals Time Frame: Jul 22, 2022 Toileting Hygiene (QC): 6 Shower/Bathe Self (QC): 4 Upper Body Dressing (QC): 5 Lower Body Dressing (QC): 5 On/Off Footwear (QC): 5 Additional Goals: 1-Demonstrate ADL Tasks, 2-Verbalize Understanding, 3- ImproveStrength/Sesar 1=Demonstrate adherence to instructed precautions during ADL tasks. 2=Patient will verbalize/demonstrate understanding of assistive devices/modifications for ADL. 3=Patient will improve strength/tolerance for activity to enable patient to perform ADL's. OT Education/Plan Problem List/Assessment Assessment: Decreased Activ Tolerance, Impaired I ADL's, Impaired Self-Care Skills Discharge Recommendations Plan/Recommendations: Continue POC Therapy Discharge Recommendati: Other, See Comments Target Placement Home alone vs home with home health pending progress Treatment Plan/Plan of Care Treatment,Training & Education: Yes Patient would benefit from OT for education, treatment and training to promote independence in ADL's, mobility, safety and/or upper extremity function for ADL's. Plan of Care: ADL Retraining, Functional Mobility, Group Exercise/Act as Ind, UE Funct Exercise/Act Treatment Duration: Jul 22, 2022 Frequency: 3 times per week (3-5x/week ) Estimated Hrs Per Day: .25 hour per day Rehab Potential: Good Time Start Time: 10:12 Stop Time: 10:23 DATE: Jul 17, 2022 Total Time Billed (hr/min): 11 Billed Treatment Time 1 visit Janet Lopez OT Jul 17, 2022 10:45
[2022-07-17] MEDS ORDERED: ESTR42.511 VG (11:52)
[2022-07-17] MEDS ORDERED: LISI20TA26 PO (11:52)
[2022-07-17] MEDS ORDERED: FLEC100T PO (11:52)
[2022-07-17] MEDS ORDERED: DILT240C87 PO (11:52)
[2022-07-17] MEDS ORDERED: FLUT1DIS28 INH (11:52)
[2022-07-17] MEDS ORDERED: DOXA1TAB2 PO (11:52)
[2022-07-17] MEDS ORDERED: cefTRIAXone 1 GM PRE-MIX 50 ML IV SCH (18:00)
[2022-07-17] MEDS: traZODone 50 MG (DESYREL) TAB PO SCH (20:59)
[2022-07-17] MEDS: doxAzosin 4 MG (CARDURA) TAB PO SCH (21:00)
[2022-07-17] MEDS: MONTELUKAST 10 MG (SINGULAIR) TAB PO SCH (21:00)
[2022-07-18] MEDS: RT-ALBUTEROL/IPRATROPIUM 3 ML (DUONEB) VIAL INH SCH ×3 (02:26→10:15)
[2022-07-18 03:16] VITALS: BP 133/61
[2022-07-18 07:06] LABS: BASOPHILS % (AUTO) 1 % (0-10); EOSINOPHILS % (AUTO) 1 % (0-10); HEMATOCRIT 35 % (35-52); HEMOGLOBIN 11.5 g/dL (11.5-16.0); LYMPHOCYTES # (AUTO) 0.8 10^3/uL (1.0-4.0); LYMPHOCYTES % (AUTO) 21 % (12-44); MEAN CORPUSCULAR HEMOGLOBIN 29 pg (25-34); MEAN CORPUSCULAR HGB CONC 33 g/dL (32-36); MEAN CORPUSCULAR VOLUME 90 fL (80-99); MONOCYTES # (AUTO) 0.4 10^3/uL (0.0-1.0); MONOCYTES % (AUTO) 11 % (0-12); NEUTROPHILS # (AUTO) 2.4 10^3/uL (1.8-7.8); NEUTROPHILS % (AUTO) 66 % (42-75); PLATELET COUNT 154 10^3/uL (130-400); WHITE BLOOD COUNT 3.7 10^3/uL (4.3-11.0)
[2022-07-18 07:29] LABS: ALBUMIN 3.4 GM/DL (3.2-4.5); BILIRUBIN,TOTAL 0.3 MG/DL (0.1-1.0); CALCIUM 8.4 MG/DL (8.5-10.1); CREATININE SERUM 0.75 MG/DL (0.60-1.30); POTASSIUM 3.3 MMOL/L (3.6-5.0); TOTAL PROTEIN 5.7 GM/DL (6.4-8.2)
[2022-07-18] MEDS: RT--FLUTICASONE/SALMETEROL 113-14 (AIRDUO RespiCLICK) IH SCH (07:43)
[2022-07-18 07:49] VITALS: BP 135/70
[2022-07-18] MEDS ORDERED: KCL 20 MEQ TAB (K-DUR) PO NR (08:00)
[2022-07-18] MEDS: SERTRALINE 100 MG (ZOLOFT) TAB PO SCH (08:34)
[2022-07-18] MEDS: ESTRADIOL 1 MG TAB (ESTRACE) PO SCH (08:34)
[2022-07-18] MEDS: OSELTAMIVIR 75 MG (TAMIFLU) CAPSULE PO SCH (08:34)
[2022-07-18] MEDS: LORATADINE (CLARITIN) 10 MG TAB PO SCH (08:35)
[2022-07-18] MEDS: FLECAINIDE 100 MG (TAMBOCOR) TAB PO SCH (08:35)
[2022-07-18] MEDS: APIXABAN 5 MG (ELIQUIS) TABLET PO SCH (08:35)
[2022-07-18] MEDS: lisINopril 20 MG (PRINIVIL) TABLET PO SCH (08:35)
[2022-07-18] MEDS: DOCUSATE SODIUM 100 MG (COLACE) CAP PO SCH (10:37)
[2022-07-18] MEDS: SENNOSIDES 8.6 MG (SENOKOT) TAB PO SCH (10:37)
--- NOTE | 2022-07-18 10:58 | Physical Therapy Progress Note ---
Therapy Progress Note Pt. states she is doing well and planning to go home by noon today. Pt. states she walked a lot in her room yesterday and feels good about her mobility. Pt. declines PT this date per discharging soon. [id number] MELISSA NUNEZ PT Jul 18, 2022 10:58
[2022-07-18] MEDS ORDERED: OSLT75C PO (11:20)
[2022-07-18] MEDS ORDERED: CEFD300C3 PO (11:23)
--- NOTE | 2022-07-18 11:23 | Discharge Summary ---
Diagnosis/Chief Complaint Date of Admission Jul 16, 2022 at 18:48 Date of Discharge Discharge Date: Jul 18, 2022 Discharge Diagnosis Assessment: Influenza A with clinical decompensation Asthma/COPD with current acute exacerbation Debility chronic Recurrence of atrial fibrillation status post ablations now chronic A. fib Hypertension Obstructive sleep apnea on CPAP with oxygen Previous 2019 Nocturnal hypoxia on oxygen Anxiety Depression Recurrent UTI history with acute UTI Discharge Summary Discharge Physical Examination Allergies: Coded Allergies: sulfamethoxazole (Verified Allergy, Intermediate, rash, SOB, 10/23/18) trimethoprim (Verified Allergy, Intermediate, rash, SOB, 10/23/18) gabapentin (Verified Allergy, Unknown, 05/29/21) Vitals & I&Os Vital Signs Date Time Temp Pulse Resp B/P (MAP) Pulse Ox O2 Delivery O2 Flow Rate FiO2 07/18/22 12:10 36.8 59 22 135/70 96 Nasal Cannula 2.00 General Appearance: Alert, Oriented X3, Cooperative Respiratory: Clear to Auscultation Cardiovascular: Regular Rate Psych/Mental Status: Mental Status NL Hospital Course Was the Problem List Reviewed?: Yes Patient had a brief hospital course when she was admitted for influenza A and clinical status decline. UTI acute on chronic diagnosed and that was Klebsiella and Rocephin was initiated and transition to Omnicef as an outpatient at discharge. Tamiflu was started and she was much improved back to baseline activity and oxygen level patient was discharged in improved condition. Labs (last 24 hrs) Laboratory Tests 07/16/22 15:59: Influenza Type A (RT-PCR) DetectedH, Influenza Type B (RT-PCR) Not Detected, SARS-CoV-2 RNA (RT-PCR) Not Detected 07/16/22 18:00: White Blood Count 7.0, Red Blood Count 4.33, Hemoglobin 12.8, Hematocrit 38, Mean Corpuscular Volume 88, Mean Corpuscular Hemoglobin 30, Mean Corpuscular Hemoglobin Concent 34, Red Cell Distribution Width 14.0, Platelet Count 185, Mean Platelet Volume 9.4, Immature Granulocyte % (Auto) 1, Neutrophils (%) (Auto) 84H, Lymphocytes (%) (Auto) 7L, Monocytes (%) (Auto) 8, Eosinophils (%) (Auto) 0, Basophils (%) (Auto) 0, Neutrophils # (Auto) 5.9, Lymphocytes # (Auto) 0.5L, Monocytes # (Auto) 0.6, Eosinophils # (Auto) 0.0, Basophils # (Auto) 0.0, Immature Granulocyte # (Auto) 0.1, Neutrophils % (Manual) 87, Lymphocytes % (Manual) 10, Monocytes % (Manual) 3, Blood Morphology Comment NORMAL, Sodium Level 138, Potassium Level 3.8, Chloride Level 105, Carbon Dioxide Level 19L, Anion Gap 14, Blood Urea Nitrogen 13, Creatinine 0.82, Estimat Glomerular Filtration Rate 75, BUN/Creatinine Ratio 16, Glucose Level 102, Calcium Level 8.7, Corrected Calcium 8.8, Total Bilirubin 0.8, Aspartate Amino Transf (AST/SGOT) 18, Alanine Aminotransferase (ALT/SGPT) 19, Alkaline Phosphatase 75, Total Protein 6.3L, Albumin 3.9 07/16/22 18:13: Urine Color YELLOW, Urine Clarity SL CLOUDY, Urine pH 6.0, Urine Specific [place] >=1.030, Urine Protein NEGATIVE, Urine Glucose (UA) NEGATIVE, Urine Ketones NEGATIVE, Urine Nitrite POSITIVEH, Urine Bilirubin NEGATIVE, Urine Urobilinogen 0.2, Urine Leukocyte Esterase TRACEH, Urine RBC (Auto) 1+H, Urine RBC 0-2, Urine WBC 25-50H, Urine Squamous Epithelial Cells 0-2, Urine Crystals NONE, Urine Bacteria LARGEH, Urine Casts NONE, Urine Mucus NEGATIVE, Urine Culture Indicated YES 07/17/22 05:20: White Blood Count 4.9, Red Blood Count 3.84, Hemoglobin 11.5, Hematocrit 34L, Mean Corpuscular Volume 89, Mean Corpuscular Hemoglobin 30, Mean Corpuscular H emoglobin Concent 34, Red Cell Distribution Width 14.3, Platelet Count 165, Mean Platelet Volume 10.0, Immature Granulocyte % (Auto) 1, Neutrophils (%) (Auto) 79H, Lymphocytes (%) (Auto) 10L, Monocytes (%) (Auto) 10, Eosinophils (%) (Auto) 0, Basophils (%) (Auto) 0, Neutrophils # (Auto) 3.9, Lymphocytes # (Auto) 0.5L, Monocytes # (Auto) 0.5, Eosinophils # (Auto) 0.0, Basophils # (Auto) 0.0, Immature Granulocyte # (Auto) 0.0, Sodium Level 138, Potassium Level 3.5L, Chloride Level 108H, Carbon Dioxide Level 21, Anion Gap 9, Blood Urea Nitrogen 11, Creatinine 0.76, Estimat Glomerular Filtration Rate 82, BUN/Creatinine Ratio 14, Glucose Level 109H, Calcium Level 8.3L, Corrected Calcium 8.8, Total Bilirubin 0.5, Aspartate Amino Transf (AST/SGOT) 21, Alanine Aminotransferase (ALT/SGPT) 17, Alkaline Phosphatase 73, Total Protein 5.5L, Albumin 3.4 07/18/22 05:50: White Blood Count 3.7L, Red Blood Count 3.95, Hemoglobin 11.5, Hematocrit 35, Mean Corpuscular Volume 90, Mean Corpuscular Hemoglobin 29, Mean Corpuscular Hemoglobin Concent 33, Red Cell Distribution Width 14.4, Platelet Count 154, Mean Platelet Volume 10.0, Immature Granulocyte % (Auto) 1, Neutrophils (%) (Auto) 66, Lymphocytes (%) (Auto) 21, Monocytes (%) (Auto) 11, Eosinophils (%) (Auto) 1, Basophils (%) (Auto) 1, Neutrophils # (Auto) 2.4, Lymphocytes # (Auto) 0.8L, Monocytes # (Auto) 0.4, Eosinophils # (Auto) 0.0, Basophils # (Auto) 0.0, Immature Granulocyte # (Auto) 0.0, Sodium Level 142, Potassium Level 3.3L, Chloride Level 110H, Carbon Dioxide Level 23, Anion Gap 9, Blood Urea Nitrogen 12, Creatinine 0.75, Estimat Glomerular Filtration Rate 83, BUN/Creatinine Ratio 16, Glucose Level 104, Calcium Level 8.4L, Corrected Calcium 8.9, Total Bilirubin 0.3, Aspartate Amino Transf (AST/SGOT) 25, Alanine Aminotransferase (ALT/SGPT) 19, Alkaline Phosphatase 72, Total Protein 5.7L, Albumin 3.4 Microbiology 07/16/22 Urine Culture - Final, Complete Klebsiella pneumoniae Pending Labs Microbiology Date/Time Source Procedure Growth Status 07/16/22 18:13 Urine Straight Cath, In/Out Urine Culture - Final Klebsiella pneumoniae Complete Laboratory Tests 07/16/22 15:59: Influenza Type A (RT-PCR) Detected, Influenza Type B (RT-PCR) Not Detected, SARS-CoV-2 RNA (RT-PCR) Not Detected 07/16/22 18:00: White Blood Count 7.0, Red Blood Count 4.33, Hemoglobin 12.8, Hematocrit 38, Mean Corpuscular Volume 88, Mean Corpuscular Hemoglobin 30, Mean Corpuscular Hemoglobin Concent 34, Red Cell Distribution Width 14.0, Platelet Count 185, Mean Platelet Volume 9.4, Immature Granulocyte % (Auto) 1, Neutrophils (%) (Auto) 84, Lymphocytes (%) (Auto) 7, Monocytes (%) (Auto) 8, Eosinophils (%) (Auto) 0, Basophils (%) (Auto) 0, Neutrophils # (Auto) 5.9, Lymphocytes # (Auto) 0.5, Monocytes # (Auto) 0.6, Eosinophils # (Auto) 0.0, Basophils # (Auto) 0.0, Immature Granulocyte # (Auto) 0.1, Neutrophils % (Manual) 87, Lymphocytes % (Manual) 10, Monocytes % (Manual) 3, Blood Morphology Comment NORMAL, Sodium Level 138, Potassium Level 3.8, Chloride Level 105, Carbon Dioxide Level 19, Anion Gap 14, Blood Urea Nitrogen 13, Creatinine 0.82, Estimat Glomerular Filtration Rate 75, BUN/Creatinine Ratio 16, Glucose Level 102, Calcium Level 8.7, Corrected Calcium 8.8, Total Bilirubin 0.8, Aspartate Amino Transf (AST/SGOT) 18, Alanine Aminotransferase (ALT/SGPT) 19, Alkaline Phosphatase 75, Total Protein 6.3, Albumin 3.9 07/16/22 18:13: Urine Color YELLOW, Urine Clarity SL CLOUDY, Urine pH 6.0, Urine Specific [place] >=1.030, Urine Protein NEGATIVE, Urine Glucose (UA) NEGATIVE, Urine Ketones NEGATIVE, Urine Nitrite POSITIVE, Urine Bilirubin NEGATIVE, Urine Urobilinogen 0.2, Urine Leukocyte Esterase TRACE, Urine RBC (Auto) 1+, Urine RBC 0-2, Urine WBC 25-50, Urine Squamous Epithelial Cells 0-2, Urine Crystals NONE, Urine Bacteria LARGE, Urine Casts NONE, Urine Mucus NEGATIVE, Urine Culture Indicated YES 07/17/22 05:20: White Blood Count 4.9, Red Blood Count 3.84, Hemoglobin 11.5, Hematocrit 34, Mean Corpuscular Volume 89, Mean Corpuscular Hemoglobin 30, Mean Corpuscular Hemoglobin Concent 34, Red Cell Distribution Width 14.3, Platelet Count 165, Mean Platelet Volume 10.0, Immature Granulocyte % (Auto) 1, Neutrophils (%) (Auto) 79, Lymphocytes (%) (Auto) 10, Monocytes (%) (Auto) 10, Eosinophils (%) (Auto) 0, Basophils (%) (Auto) 0, Neutrophils # (Auto) 3.9, Lymphocytes # (Auto) 0.5, Monocytes # (Auto) 0.5, Eosinophils # (Auto) 0.0, Basophils # (Auto) 0.0, Immature Granulocyte # (Auto) 0.0, Sodium Level 138, Potassium Level 3.5, Chloride Level 108, Carbon Dioxide Level 21, Anion Gap 9, Blood Urea Nitrogen 11, Creatinine 0.76, Estimat Glomerular Filtration Rate 82, BUN/Creatinine Ratio 14, Glucose Level 109, Calcium Level 8.3, Corrected Calcium 8.8, Total Bilirubin 0.5, Aspartate Amino Transf (AST/SGOT) 21, Alanine Aminotransferase (ALT/SGPT) 17, Alkaline Phosphatase 73, Total Protein 5.5, Albumin 3.4 07/18/22 05:50: White Blood Count 3.7, Red Blood Count 3.95, Hemoglobin 11.5, Hematocrit 35, Mean Corpuscular Volume 90, Mean Corpuscular Hemoglobin 29, Mean Corpuscular Hemoglobin Concent 33, Red Cell Distribution Width 14.4, Platelet Count 154, Mean Platelet Volume 10.0, Immature Granulocyte % (Auto) 1, Neutrophils (%) (Auto) 66, Lymphocytes (%) (Auto) 21, Monocytes (%) (Auto) 11, Eosinophils (%) (Auto) 1, Basophils (%) (Auto) 1, Neutrophils # (Auto) 2.4, Lymphocytes # (Auto) 0.8, Monocytes # (Auto) 0.4, Eosinophils # (Auto) 0.0, Basophils # (Auto) 0.0, Immature Granulocyte # (Auto) 0.0, Sodium Level 142, Potassium Level 3.3, Ch loride Level 110, Carbon Dioxide Level 23, Anion Gap 9, Blood Urea Nitrogen 12, Creatinine 0.75, Estimat Glomerular Filtration Rate 83, BUN/Creatinine Ratio 16, Glucose Level 104, Calcium Level 8.4, Corrected Calcium 8.9, Total Bilirubin 0.3, Aspartate Amino Transf (AST/SGOT) 25, Alanine Aminotransferase (ALT/SGPT) 19, Alkaline Phosphatase 72, Total Protein 5.7, Albumin 3.4 Discharge Home Medications: Active Scripts Active Cefdinir 300 Mg Capsule 300 Mg PO BID Tamiflu (Oseltamivir Phosphate) 75 Mg Cap 75 Mg PO BID 3 Days Reported Estradiol 0.01 % Cream.appl 1 Appful VG EVERY 72 HOURS Flecainide Acetate 100 Mg Tablet 100 Mg PO BID Doxazosin Mesylate 1 Mg Tablet 1 Mg PO HS Advair 100-50 Diskus (Fluticasone/Salmeterol) 100 Mcg-50 Mcg/Dose Blst.w.dev 1 Puff INH BID Diltiazem ER (Diltiazem HCl) 240 Mg Capsule.er 240 Mg PO BID Lisinopril 20 Mg Tablet 40 Mg PO DAILY TAKES 2 (20MG) TABS ALPRAZolam 0.25 Mg Tablet 0.25 Mg PO HS PRN Potassium Chloride 10 Meq Capsule.er 20 Meq PO DAILY TAKES 2 (10MEQ) CAPS Vitamin D3 (Cholecalciferol (Vitamin D3)) 125 Mcg/1 Ml Drops 125 Mcg PO DAILY Furosemide 40 Mg Tablet 40 Mg PO DAILY Loratadine 10 Mg Tablet 10 Mg PO DAILY Ventolin Hfa (Albuterol Sulfate) 1 Puff Puff 2 Puff IH Q4H PRN Montelukast Sodium 10 Mg Tablet 10 Mg PO HS Atorvastatin Calcium 20 Mg Tablet 20 Mg PO HS Trazodone HCl 50 Mg Tablet 50 Mg PO HS Sertraline HCl 100 Mg Tablet 150 Mg PO DAILY TAKES 1 & 1/2 (100MG) TABLET Eliquis (Apixaban) 5 Mg Tablet 5 Mg PO BID Estradiol Tablet (Estradiol) 0.5 Mg Tablet 0.5 Mg PO DAILY Instructions to patient/family Please see electronic discharge instructions given to patient. Diagnosis/Problems Diagnosis/Problems (1) Influenza Status: Acute (2) UTI (urinary tract infection) Status: Acute Qualifiers: Qualified Codes: N30.00 - Acute cystitis without hematuria (3) ADOLPH on CPAP Status: Chronic (4) Anxiety Status: Chronic (5) Persistent atrial fibrillation (6) Chronic diastolic heart failure (7) Primary hypertension (8) Hyperlipidemia Status: Chronic ANAY DARNELL DO Jul 18, 2022 11:23
[2022-07-18] MEDS ORDERED: RELABEL FOR HOME USE MC SCH (11:30)
[2022-07-18] MEDS ORDERED: OSELTAMIVIR 75 MG (TAMIFLU) CAPSULE PO SCH (11:30)
[2022-07-18 12:10] VITALS: BP 135/70
--- NOTE | 2022-07-20 12:04 | Physician Query Clarification ---
PQ-Uncertain Diagnosis Admission/Discharge Admission Date: Jul 16, 2022 at 18:48 Discharge Date: Jul 18, 2022 at 12:10 Dr. Broderick, The medical record reflects the following clinical scenario: History/Risk Factors: Influenza A, COPD AE, UTI Clinical Findings: dyspnea on exertion, SOB, cough, decreased breath sounds Treatment: Bipap, Albuterol Question: Is acute on chronic respiratory failure a clinically valid diagnosis? Acute on chronic respiratory failure was documented in the H&P under reason for admission with no further documentation in the medical record. Please document a response in Progress Note or Discharge Summary. 1. Yes, clinically valid, condition resolved. 2. No, condition ruled out. 3. Other, with explanation of clinical findings. 4. Undetermined, no explanation for clinical findings. PHYSICIAN RESPONSE Diagnosis clinically valid: Yes, Conditon resolved In responding to this query, please exercise your independent professional j udgment. The purpose of this communication is to more accurately reflect the complexity of your patients condition. The fact that a question is asked does not imply that any particular answer is desired or expected. Thank you for your timely response to this clarification. Requestors name: Erinn THIS PHYSICIAN QUERY FORM IS A PERMANENT PART OF THE MEDICAL RECORD ERINN ORTIZ Jul 20, 2022 12:04 ANAY BRODERICK DO Jul 20, 2022 14:36
== END 2022-07-18 12:10 | disposition home or self-care (01) | DRG 193 ==
LOC: EDUNIT# 15:41 → ER 15:43 → 4TH 18:48
PROVIDERS: ADMIT Internal Medicine; ATTEND Internal Medicine
PROC: 5A09357 Assistance with Respiratory Ventilation, Less than 24 Consecutive Hours, Continuous Positive Airway Pressure (ICD-10-PCS; principal; 2022-07-17)
DX: J10.1 Influenza due to other identified influenza virus with other respiratory manifestations (principal); J96.20 Acute and chronic respiratory failure, unspecified whether with hypoxia or hypercapnia; I48.19 Other persistent atrial fibrillation; J44.1 Chronic obstructive pulmonary disease with (acute) exacerbation; N39.0 Urinary tract infection, site not specified; I50.32 Chronic diastolic (congestive) heart failure; Z79.01 Long term (current) use of anticoagulants; G47.33 Obstructive sleep apnea (adult) (pediatric); B96.1 Klebsiella pneumoniae [K. pneumoniae] as the cause of diseases classified elsewhere; Z20.822 Contact with and (suspected) exposure to COVID-19; I89.0 Lymphedema, not elsewhere classified; I11.0 Hypertensive heart disease with heart failure; E78.00 Pure hypercholesterolemia, unspecified; K21.9 Gastro-esophageal reflux disease without esophagitis; M19.91 Primary osteoarthritis, unspecified site; E11.9 Type 2 diabetes mellitus without complications; H54.3 Unqualified visual loss, both eyes; F41.9 Anxiety disorder, unspecified; F32.A Depression, unspecified; I45.10 Unspecified right bundle-branch block; F17.210 Nicotine dependence, cigarettes, uncomplicated; Z79.52 Long term (current) use of systemic steroids; Z96.652 Presence of left artificial knee joint; Z96.641 Presence of right artificial hip joint; Z82.49 Family history of ischemic heart disease and other diseases of the circulatory system
CPT/HCPCS: 36415; 51701; 70450; 71045; 72125; 80053; 81000; 85007; 85025; 85027; 87077; 87088; 87186; 87636; 93005; 94640; 94660; 94760

== ENCOUNTER → 2022-07-31 | Outpatient (CLI) | payer MEDICARE ==
[~2022-07-31] MED LIST changes: +ESTR42.511 VG; +OSLT75C PO
--- NOTE | 2022-07-31 15:42 | Diagnostic Imaging Report ---
INDICATION: Routine screening. COMPARISON is made with prior exams from 06/11/2021 and 04/19/2020. 2-D and 3-D bilateral screening mammography was performed with CAD. Both breasts are heterogeneously dense, limiting the sensitivity of mammography. Circumscribed masses retroareolar right breast are again noted. Circumscribed lesions left breast are also noted. No new mass is identified. There are scattered benign calcifications. No definite spiculated mass or malignant appearing microcalcifications are seen. Axillae are unremarkable. IMPRESSION: BI-RADS Category 2 No mammographic features suspicious for malignancy are identified. ACR BI-RADS Category 2: Benign findings. Result letter will be mailed to the patient. Note: At least 10% of breast cancer is not imaged by mammography. Dictated by: Dictated on workstation # [id number]
== END ==
LOC: RAD 10:51
PROVIDERS: ATTEND Internal Medicine
DX: Z12.31 Encounter for screening mammogram for malignant neoplasm of breast (principal)
CPT/HCPCS: 77063; 77067

== ENCOUNTER 2022-11-19 14:09 | Emergency (ER) | payer MEDICARE ==
[~2022-11-19] VITALS: Ht 170 cm; Wt 128.0 kg
[~2022-11-19 14:09] MED LIST changes: -POTA10CA43 PO; +POTA10CA44 PO
[2022-11-19] MEDS ORDERED: NS IV 500 ML 500 ML IV STA (14:30)
--- NOTE | 2022-11-19 14:30 | ED Cardiac General ---
History of Present Illness General Chief Complaint: Cardiac/General Problems Stated Complaint: AFIB | ELEVATED HEART RATE Nursing Triage Note: PT TO RM 5 PER W/C PT CO OF RAPID HR AND A-FIB. STARTED AT APPROX 11:00 THIS AM. PT STATES STARTED W KRUEGER AND THEN APPLE WATCH STATES HAD AFIB. PT CALL DR ANG AND WAS SENT TO ED. PT DENIES C/P PT CO OF SOA AND WEAKNESS. Source: patient Exam Limitations: no limitations History of Present Illness Date Seen by Provider: Nov 19, 2022 Time Seen by Provider: 14:18 Initial Comments Patient is a 77-year-old female who presents to the emergency department with a chief complaint of generalized weakness, frontal headache and being in A-fib. Patient states that she noticed her symptoms around 11:00 this morning. She had a headache, took a couple of Tylenol and continued to feel poorly until she called the ambulance. She is not short of breath, she is not nauseous. She recently had a bladder procedure at a week ago. She had to come off her Eliquis for a few days prior to that procedure but is now back on it. She s tates that she has been off her Lasix recently and is retaining some fluid in her legs. She is a patient of Dr. Paul, she has had prior ablations and also follows with Dr. Hoyt at . She denies any recent fevers, chills, productive cough. No dysuria of this week. No diarrhea or bloody stools. She has not missed or skipped any of her other medications including her diltiazem. Current heart rate 110-119 A-fib. Blood pressure systolic 135. Satting 97% on room air. Timing/Duration: 1-3 hours Severity: moderate Activities at Onset: rest NTG SL [employer]: No ASA po [employer]: No Associated Systoms: Headaches, Weakness Allergies and Home Medications Allergies Coded Allergies: sulfamethoxazole (Verified Allergy, Intermediate, rash, SOB, 10/23/18) trimethoprim (Verified Allergy, Intermediate, rash, SOB, 10/23/18) gabapentin (Verified Allergy, Unknown, 05/29/21) Patient Home Medication List Home Medication List Reviewed: Yes ALPRAZolam (ALPRAZolam) 0.25 Mg Tablet, 0.25 MG PO HS PRN for ANXIETY/SLEEP, (Reported) Entered as Reported by: TOMI OCONNOR on 04/17/21 1700 Albuterol Sulfate (Ventolin Hfa) 1 Puff Puff, 2 PUFF IH Q4H PRN for SHORTNESS OF BREATH, (Reported) Entered as Reported by: EDGARDO RIVAS on 12/15/18 1531 Apixaban (Eliquis) 5 Mg Tablet, 5 MG PO BID, (Reported) Entered as Reported by: EDGARDO RIVAS on 10/03/18 1127 Atorvastatin Calcium (Atorvastatin Calcium) 20 Mg Tablet, 20 MG PO HS, (Reported) Entered as Reported by: EDGARDO RIVAS on 10/03/18 1127 Cefdinir (Cefdinir) 300 Mg Capsule, 300 MG PO BID Prescribed by: ANAY DARNELL on 07/18/22 1123 Cholecalciferol (Vitamin D3) (Vitamin D3) 125 Mcg/1 Ml Drops, 125 MCG PO DAILY, (Reported) Entered as Reported by: TOMI OCONNOR on 06/17/20 1121 Diltiazem HCl (Diltiazem ER) 240 Mg Capsule.er, 240 MG PO BID, (Reported) Entered as Reported by: TOMI OCONNOR on 07/17/22 1152 Doxazosin Mesylate (Doxazosin Mesylate) 1 Mg Tablet, 1 MG PO HS, (Reported) Entered as Reported by: TOMI OCONNOR on 07/17/22 1152 Estradiol (Estradiol Tablet) 0.5 Mg Tablet, 0.5 MG PO DAILY, (Reported) Entered as Reported by: VICTOR MANUEL DASILVA on 05/28/16 1331 Estradiol (Estradiol) 0.01 % Cream.appl, 1 APPFUL VG EVERY 72 HOURS, (Reported) Entered as Reported by: TOMI OCONNOR on 07/17/22 1152 Flecainide Acetate (Flecainide Acetate) 100 Mg Tablet, 100 MG PO BID, (Reported) Entered as Reported by: TOMI OCONNOR on 07/17/22 1152 Fluticasone/Salmeterol (Advair 100-50 Diskus) 100 Mcg-50 Mcg/Dose Blst.w.dev, 1 PUFF INH BID, (Reported) Entered as Reported by: TOMI OCONNOR on 07/17/22 1152 Furosemide (Furosemide) 40 Mg Tablet, 40 MG PO DAILY, (Reported) Entered as Reported by: TOMI OCONNOR on 05/22/19 0744 Lisinopril (Lisinopril) 20 Mg Tablet, 40 MG PO DAILY, (Reported) Entered as Reported by: TOMI OCONNOR on 07/17/22 1152 Loratadine (Loratadine) 10 Mg Tablet, 10 MG PO DAILY, (Reported) Entered as Reported by: TOMI OCONNOR on 05/22/19 0744 Montelukast Sodium (Montelukast Sodium) 10 Mg Tablet, 10 MG PO HS, (Reported) Entered as Reported by: EDGARDO RIVAS on 10/03/18 1127 Oseltamivir Phosphate (Tamiflu) 75 Mg Cap, 75 MG PO BID Prescribed by: ANAY DARNELL on 07/18/22 1120 Potassium Chloride (Potassium Chloride) 10 Meq Capsule.er, 20 MEQ PO DAILY, (Reported) Entered as Reported by: TOMI OCONNOR on 06/17/20 1121 Sertraline HCl (Sertraline HCl) 100 Mg Tablet, 150 MG PO DAILY, (Reported) Entered as Reported by: EDGARDO RIVAS on 10/03/18 1127 Trazodone HCl (Trazodone HCl) 50 Mg Tablet, 50 MG PO HS, (Reported) Entered as Reported by: EDGARDO RIVAS on 10/03/18 1127 Review of Systems Review of Systems Constitutional: see HPI EENTM: No Symptoms Reported Respiratory: No Symptoms Reported Cardiovascular: Irregular Heart Rate, Palpitations Gastrointestinal: No Symptoms Reported Genitourinary: No Symptoms Reported Musculoskeletal: no symptoms reported Skin: no symptoms reported Psychiatric/Neurological: Weakness (generalized weakness) All Other Systems Reviewed Negative Unless Noted: Yes Past Irjxcrk-Gklolz-Kcwpke Hx Patient Social History Tobacco Use?: No Substance use?: No Alcohol Use?: No Pt feels they are or have been: No Immunizations Up To Date Tetanus Booster (TDap): Less than 5yrs Influenza Vaccine Up-to-Date: Yes; Up-to-Date First/Initial COVID19 Vaccinat: 09/2020 Second COVID19 Vaccination Jamar: 09/2020 Third COVID19 Vaccination Date: 09/2020 Seasonal Allergies Seasonal Allergies: Yes Past Medical History Surgery/Hospitalization HX: 03/2021 COPD/PNEUMONIA, AFIB RVR, HEART ABLATIONS, BLADDER ISSUES, 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 Surgeries: Yes (HIATAL HERNIA, L TKR, R HIP REPLACEMENT, BLADDER x8, BILAT FOOT SX) Orthopedic Respiratory: Yes Asthma, Sleep Apnea Currently Using CPAP: Yes Currently Using BIPAP: No Cardiac: Yes Atrial Fibrillation, Chronic Edema/Swelling, High Cholesterol, Hypertension Neurological: No Reproductive Disorders: No 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 Sexually Transmitted Disease: No Genitourinary: Yes (BOTOX FOR URINARY INCONT Q 6 MONTHS) Kidney Infection, Bladder Infection Gastrointestinal: Yes Gastroesophageal Reflux Musculoskeletal: Yes Arthritis, Chronic Back Pain Endocrine: No Diabetes, Non-Insulin dep Cataract Loss of Vision: Bilateral Hearing Impairment: Denies Cancer: No Psychosocial: Yes Anxiety, Depression Integumentary: No Blood Disorders: No Adverse Reaction/Blood Tranf: No Family Medical History Arthritis 19 MOTHER Cataracts 19 FATHER 19 MOTHER Colon cancer 19 FATHER Deafness or hearing loss 19 FATHER Dementia 19 FATHER FH: macular degeneration 19 MOTHER FH: prostate cancer 19 FATHER FH: skin cancer 19 FATHER Gout 19 MOTHER Hypertension 19 FATHER 19 MOTHER Myocardial infarction 19 FATHER 19 MOTHER Physical Exam Vital Signs Vital Signs - First Documented 11/19/22 11/19/22 14:12 16:45 Temp 37.0 Pulse 123 Resp 29 B/P (MAP) 135/84 (101) Pulse Ox 94 O2 Delivery Room Air Capillary Refill : Less Than 3 Seconds Height, Weight, BMI Height: 5'7.00" Weight: 291lbs. 6.0oz. [id number]; 44.00 BMI Method:Stated General Appearance: No Apparent Distress, WD/WN, Obese HEENT: PERRL/EOMI Neck: Normal Inspection Respiratory: Lungs Clear, Normal Breath Sounds, No Accessory Muscle Use, No Respiratory Distress Cardiovascular: Normal Peripheral Pulses, Irregularly Irregular, Tachycardia Gastrointestinal: Non Tender, Soft Extremity: Normal Capillary Refill, Normal Range of Motion, Non Tender, No Calf Tenderness, Pedal Edema Neurologic/Psychiatric: Alert, Oriented x3, No Motor/Sensory Deficits, Normal Mood/Affect, floor coverer II-XII Norm as Tested Skin: Normal Color, Warm/Dry Progress/Results/Core Measures Results/Orders Lab Results Laboratory Tests Test 11/19/22 14:20 Range/Units White Blood Count 9.4 4.3-11.0 10^3/uL Red Blood Count 5.02 3.80-5.11 10^6/uL Hemoglobin 14.2 11.5-16.0 g/dL Hematocrit 43 35-52 % Mean Corpuscular Volume 85 80-99 fL Mean Corpuscular Hemoglobin 28 25-34 pg Mean Corpuscular Hemoglobin Concent 33 32-36 g/dL Red Cell Distribution Width 13.8 10.0-14.5 % Platelet Count 235 130-400 10^3/uL Mean Platelet Volume 9.5 9.0-12.2 fL Immature Granulocyte % (Auto) 1 % Neutrophils (%) (Auto) 74 42-75 % Lymphocytes (%) (Auto) 17 12-44 % Monocytes (%) (Auto) 7 0-12 % Eosinophils (%) (Auto) 2 0-10 % Basophils (%) (Auto) 0 0-10 % Neutrophils # (Auto) 7.0 1.8-7.8 10^3/uL Lymphocytes # (Auto) 1.6 1.0-4.0 10^3/uL Monocytes # (Auto) 0.6 0.0-1.0 10^3/uL Eosinophils # (Auto) 0.2 0.0-0.3 10^3/uL Basophils # (Auto) 0.0 0.0-0.1 10^3/uL Immature Granulocyte # (Auto) 0.1 0.0-0.1 10^3/uL Sodium Level 141 135-145 MMOL/L Potassium Level 3.6 3.6-5.0 MMOL/L Chloride Level 107 98-107 MMOL/L Carbon Dioxide Level 24 21-32 MMOL/L Anion Gap 10 5-14 MMOL/L Blood Urea Nitrogen 18 7-18 MG/DL Creatinine 0.76 0.60-1.30 MG/DL Estimat Glomerular Filtration Rate 82 BUN/Creatinine Ratio 24 Glucose Level 113 H 70-105 MG/DL Calcium Level 9.3 8.5-10.1 MG/DL Magnesium Level 1.9 1.6-2.4 MG/DL Troponin I < 0.028 <0.028 NG/ML B-Type Natriuretic Peptide 40.4 <100.0 PG/ML My Orders Orders - ISRAEL BELL MD Ekg Tracing (11/19/22 14:16) Ed Iv/Invasive Line Start (11/19/22 14:30) Cbc With Automated Diff (11/19/22 14:30) Basic Metabolic Panel (11/19/22 14:30) Magnesium (11/19/22 14:30) Chest 1 View, Ap/Pa Only (11/19/22 14:30) Bnp Rishi (11/19/22 14:30) Troponin I Rishi (11/19/22 14:30) Ns Iv 500 Ml (Sodium Chloride 0.9%) (11/19/22 14:30) Ekg Tracing (11/19/22 16:04) Vital Signs/I&O 11/19/22 11/19/22 14:12 16:45 Temp 37.0 37.0 Pulse 123 95 Resp 29 20 B/P (MAP) 135/84 (101) 135/84 Pulse Ox 94 97 O2 Delivery Room Air 11/20/22 00:00 Intake Total 500 ml Balance 500 ml Blood Pressure Mean: 101 Progress Progress Note #1: Time: 16:30 Progress Note Patient seen and evaluated by me. Evaluation today includes physical exam, EKG, CBC, basic metabolic panel, magnesium, troponin, BNP and chest x-ray. Pertinent physical exam findings include well-developed well-nourished obese female in no acute distress. Irregularly irregular heartbeat, tachycardic at 115. Lungs are clear. Abdomen is benign. Mild edema bilateral lower extremities. No focal neurologic deficits. Differential diagnosis based on history and physical exam A-fib with RVR, electrolyte derangement, dehydration. Labs independently interpreted by me, CBC is normal, basic metabolic panel magnesium troponin and BNP are all negative/within normal limits. Chest x-ray independent interpretation by me no focal infiltrates or effusions. Mild cardiomegaly. EKG shows A-fib with RVR rate at [address] depression in leads V4, V5 and V6, likely demand ischemic change. Patient is treated in the emergency department with 500 cc of normal saline. Monitored. Case was discussed with Dr. Darnell, the patient's primary care physician who recommended consultation with Dr. Paul, emery wheel worker. I spoke with her emery wheel worker and at the time as she was still in A-fib RVR he recommended loading with digoxin and he would see her in the office tomorrow. She is on a rather large dose of diltiazem, 240 mg twice daily. While I was talking to Dr. Paul I was notified by the patient's nurse, Jody QUINTANA that the patient had converted back to normal sinus in the low 70s. Second EKG is pending. Anticipate discharged home with follow-up with Dr. Darnell and Dr. Paul. Progress Note #2: Time: 16:36 Progress Note Patient feels much better after 4 PM when she converted. We will send her home to follow-up with Dr. Paul Initial ECG Impression Date: Nov 19, 2022 Initial ECG Impression Time: 14:36 Initial ECG Rate: 111 Initial ECG Rhythm: A Fib/Flutter Initial ECG Impression: Atrial Fibrillation w/RVR Comment Slight ST depression noted in V4, V5 and V6, A-fib with rapid ventricular response. Right bundle branch block EKG : EKG Time: 16:33 Rate: 67 Rhythm: Normal Sinus Intervals [place] interval 197 QRS 166 QTc 464 ECG Comparisson: Changed Comment Sinus arrhythmia with right bundle branch block, no significant ST elevation or depression. Diagnostic Imaging Diagonstic Imaging: Xray Plain Films/CT/US/NM/MRI: chest Comments [facility], [place] NAME: TUSHAR ESTEVEZ [facility] REC#: [id number] PT STATUS: REG ER : 1945 PHYSICIAN: ISRAEL BELL MD ADMIT DATE: 11/19/22/ER Draft Date of Exam:11/19/22 CHEST 1 VIEW, AP/PA ONLY INDICATION: Palpitations, weakness. TECHNIQUE: Frontal chest obtained at 02:47 p.m. and compared to 07/16/2022. FINDINGS: There is cardiomegaly with mild central vascular congestion. There is no focal infiltrate or pneumothorax or pleural fluid. IMPRESSION: Cardiomegaly and mild central vascular congestion. No focal infiltrate or pneumothorax or pleural fluid. Dictated on workstation # [id number] Dict: 11/19/22 1456 Trans: 11/19/22 1501 [id number] Interpreted by: WOLF HENRY MD Electronically signed by: Departure Communication (Admissions) Time/Spoke to Consulting Phy: 16:[address] Ang (cardiology) Impression Primary Impression: Atrial fibrillation with RVR Additional Impression: Weakness Disposition: 01 HOME, SELF-CARE Condition: Improved Departure-Patient Inst. Decision time for Depature: 16:36 Referrals: ANAY DARNELL DO (PCP/Family) Primary Care Physician QAMAR ANG MD [facility] Patient Instructions: Atrial Fibrillation Add. Discharge Instructions: Continue your current medications. Be sure and take your Eliquis every day. Please call Dr. Ang's office in the morning to see him tomorrow in clinic. If you have any return of symptoms or new, emergent concerns please return to the emergency room for reevaluation. Copy Copies To 1: ANAY DARNELL DO Copies To 2: QAMAR ANG MD [facility] ISRAEL BELL MD Nov 19, 2022 14:30
[2022-11-19 14:38] LABS: BASOPHILS % (AUTO) 0 % (0-10); EOSINOPHILS # (AUTO) 0.2 10^3/uL (0.0-0.3); EOSINOPHILS % (AUTO) 2 % (0-10); HEMATOCRIT 43 % (35-52); HEMOGLOBIN 14.2 g/dL (11.5-16.0); LYMPHOCYTES # (AUTO) 1.6 10^3/uL (1.0-4.0); LYMPHOCYTES % (AUTO) 17 % (12-44); MEAN CORPUSCULAR HEMOGLOBIN 28 pg (25-34); MEAN CORPUSCULAR HGB CONC 33 g/dL (32-36); MEAN CORPUSCULAR VOLUME 85 fL (80-99); MEAN PLATELET VOLUME 9.5 fL (9.0-12.2); MONOCYTES # (AUTO) 0.6 10^3/uL (0.0-1.0); MONOCYTES % (AUTO) 7 % (0-12); NEUTROPHILS % (AUTO) 74 % (42-75); PLATELET COUNT 235 10^3/uL (130-400); WHITE BLOOD COUNT 9.4 10^3/uL (4.3-11.0)
[2022-11-19 14:58] LABS: CHLORIDE 107 MMOL/L (98-107); POTASSIUM 3.6 MMOL/L (3.6-5.0); SODIUM 141 MMOL/L (135-145)
[2022-11-19 14:59] LABS: CALCIUM 9.3 MG/DL (8.5-10.1); GLUCOSE 113 MG/DL (70-105)
[2022-11-19 15:01] LABS: CARBON DIOXIDE 24 MMOL/L (21-32)
--- NOTE | 2022-11-19 15:02 | Diagnostic Imaging Report ---
INDICATION: Palpitations, weakness. TECHNIQUE: Frontal chest obtained at 02:47 p.m. and compared to 07/16/2022. FINDINGS: There is cardiomegaly with mild central vascular congestion. There is no focal infiltrate or pneumothorax or pleural fluid. IMPRESSION: Cardiomegaly and mild central vascular congestion. No focal infiltrate or pneumothorax or pleural fluid. Dictated by: Dictated on workstation # [id number]
[2022-11-19 15:03] LABS: CREATININE SERUM 0.76 MG/DL (0.60-1.30); GFR ESTIMATED 82
[2022-11-19 15:04] LABS: BUN/CREATININE RATIO 24
[2022-11-19 15:06] LABS: MAGNESIUM 1.9 MG/DL (1.6-2.4)
[2022-11-19 16:45] VITALS: BP 135/84
== END 2022-11-19 16:50 | disposition home or self-care (01) ==
LOC: EDUNIT# 14:09 → ER 14:11
DX: I48.91 Unspecified atrial fibrillation (principal); I51.7 Cardiomegaly; R60.0 Localized edema; E66.9 Obesity, unspecified; G47.30 Sleep apnea, unspecified; Z68.41 Body mass index [BMI] 40.0-44.9, adult; Z86.79 Personal history of other diseases of the circulatory system; Z79.01 Long term (current) use of anticoagulants; Z99.89 Dependence on other enabling machines and devices
CPT/HCPCS: 36415; 71045; 80048; 83735; 83880; 84484; 85025; 93005

== ENCOUNTER → 2023-02-19 | Outpatient (CLI) | payer MEDICARE ==
[~2023-02-19] MED LIST changes: +DILT120C71 PO; -DILT120C85 PO; +DILT240C74 PO; -DILT240C87 PO; -POTA10CA44 PO; +POTA10CA84 PO
--- NOTE | 2023-02-19 15:07 | Diagnostic Imaging Report ---
PROCEDURE: US Renal/Bladder. TECHNIQUE: Multiple real-time grayscale images were obtained over the kidneys in various projections bilaterally. INDICATION: History of urinary tract infections. COMPARISON: None. FINDINGS: Right: The right kidney measures 10.9 cm in length. Renal cortical thickness and echogenicity are within normal limits. There is no evidence of calculi, solid focal mass or hydronephrosis. No perinephric fluid collections are identified. Left: The left kidney measures 11.5 cm in length. Renal cortical thickness and echogenicity are within normal limits. There is no evidence of calculi, solid focal mass or hydronephrosis. No perinephric fluid collections are identified. There is no abdominal ascites. Both ureteral jets are visualized. Views of the pelvis demonstrate a moderately distended urinary bladder. No large intraluminal filling defect or calculi are identified. IMPRESSION: 1. No acute renal abnormalities identified. Dictated by: Dictated on workstation # [id number]
== END ==
LOC: RAD 09:36
PROVIDERS: ATTEND Urology
DX: Z87.440 Personal history of urinary (tract) infections (principal)
CPT/HCPCS: 76770

== ENCOUNTER 2023-05-05 04:38 | Emergency (ER) | payer MEDICARE ==
[~2023-05-05] VITALS: Ht 170 cm; Wt 127.0 kg
[2023-05-05] MEDS ORDERED: NS IV 500 ML 500 ML IV STA (05:06)
[2023-05-05] MEDS ORDERED: ONDANSETRON INJECTION 4 MG/2 ML (SDV) IVP ONE (05:15)
--- NOTE | 2023-05-05 05:16 | ED General ---
General Chief Complaint: Fever-Adult/Adol Stated Complaint: DIZZY/CHILLS/NAUSEA/SHAKEY Nursing Triage Note: PATIENT STATES LAST NIGHT AROUND 2230 FEVER, CHILLS, NAUSEA, SHAKEY STATES SHE DID RECEIVED HER FLU AND COVID VACCINE YESTERDAY. PATIENT STATES SHE ALSO HAS A HISTORY OF UTIS STATES INCT OF URINE, Source of Information: Patient Exam Limitations: No Limitations (ISRAEL BELL MD) History of Present Illness Date Seen by Provider: May 05, 2023 Time Seen by Provider: 05:00 Initial Comments Patient is a 78yo female who lives alone complaint of generalized weakness, just not feeling well. increased urinary freqency, chronic incontinence. SHe is anticoagulated in a fib. Dr Darnell is her PCP. SHe goes to for bladder management. Had her covid and flu vaccines yesterday and states she has a sore left arm. Has chronic pain in her left leg. It has been worse in the last 24 hr as well. nauseated this morning. no cp. no diarrhea. no fever but chills. Timing/Duration: 12-24 Hours Severity: Moderate Associated Systoms: Fever/Chills (chills), Malaise, Nausea/Vomiting (nausea without vomiting), Weakness (ISRAEL BELL MD) Allergies and Home Medications Allergies Coded Allergies: sulfamethoxazole (Verified Allergy, Intermediate, rash, SOB, 10/23/18) trimethoprim (Verified Allergy, Intermediate, rash, SOB, 10/23/18) gabapentin (Verified Allergy, Unknown, 05/29/21) Patient Home Medication List Home Medication List Reviewed: Yes (WOODY CAMPO MD) ALPRAZolam (ALPRAZolam) 0.25 Mg Tablet, 0.25 MG PO HS PRN for ANXIETY/SLEEP, (Reported) Entered as Reported by: TOMI OCONNOR on 04/17/21 1700 Albuterol Sulfate (Ventolin Hfa) 1 Puff Puff, 2 PUFF IH Q4H PRN for SHORTNESS OF BREATH, (Reported) Entered as Reported by: EDGARDO RIVAS on 12/15/18 1531 Apixaban (Eliquis) 5 Mg Tablet, 5 MG PO BID, (Reported) Entered as Reported by: EDGARDO RIVAS on 10/03/18 1127 Atorvastatin Calcium (Atorvastatin Calcium) 20 Mg Tablet, 20 MG PO HS, (Reported) Entered as Reported by: EDGARDO RIVAS on 10/03/18 1127 Cefdinir (Cefdinir) 300 Mg Capsule, 300 MG PO BID Prescribed by: ANAY DARNELL on 07/18/22 1123 Cholecalciferol (Vitamin D3) (Vitamin D3) 125 Mcg/1 Ml Drops, 125 MCG PO DAILY, (Reported) Entered as Reported by: TOMI OCONNOR on 06/17/20 112 Diltiazem HCl (Diltiazem ER) 240 Mg Capsule.er, 240 MG PO BID, (Reported) Entered as Reported by: TOMI OCONNOR on 07/17/22 115 Doxazosin Mesylate (Doxazosin Mesylate) 1 Mg Tablet, 1 MG PO HS, (Reported) Entered as Reported by: TOMI OCONNOR on 07/17/22 115 Estradiol (Estradiol Tablet) 0.5 Mg Tablet, 0.5 MG PO DAILY, (Reported) Entered as Reported by: VICTOR MANUEL DASILVA on 05/28/16 1331 Estradiol (Estradiol) 0.01 % Cream.appl, 1 APPFUL VG EVERY 72 HOURS, (Reported) Entered as Reported by: TOMI OCONNOR on 07/17/22 115 Flecainide Acetate (Flecainide Acetate) 100 Mg Tablet, 100 MG PO BID, (Reported) Entered as Reported by: TOMI OCONNOR on 07/17/22 115 Fluticasone/Salmeterol (Advair 100-50 Diskus) 100 Mcg-50 Mcg/Dose Blst.w.dev, 1 PUFF INH BID, (Reported) Entered as Reported by: TOMI OCONNOR on 07/17/22 115 Furosemide (Furosemide) 40 Mg Tablet, 40 MG PO DAILY, (Reported) Entered as Reported by: TOMI OCONNOR on 05/22/19 07 Lisinopril (Lisinopril) 20 Mg Tablet, 40 MG PO DAILY, (Reported) Entered as Reported by: TOMI OCONNOR on 07/17/22 115 Loratadine (Loratadine) 10 Mg Tablet, 10 MG PO DAILY, (Reported) Entered as Reported by: TOMI OCONNOR on 05/22/19 0744 Montelukast Sodium (Montelukast Sodium) 10 Mg Tablet, 10 MG PO HS, (Reported) Entered as Reported by: EDGARDO RIVAS on 10/03/18 1127 Oseltamivir Phosphate (Tamiflu) 75 Mg Cap, 75 MG PO BID Prescribed by: ANAY DARNELL on 07/18/22 1120 Potassium Chloride (Potassium Chloride) 10 Meq Capsule.er, 20 MEQ PO DAILY, (Reported) Entered as Reported by: TOMI OCONNOR on 06/17/20 1121 Sertraline HCl (Sertraline HCl) 100 Mg Tablet, 150 MG PO DAILY, (Reported) Entered as Reported by: EDGARDO RIVAS on 10/03/18 1127 Trazodone HCl (Trazodone HCl) 50 Mg Tablet, 50 MG PO HS, (Reported) Entered as Reported by: EDGARDO RIVAS on 10/03/18 1127 Review of Systems Review of Systems Constitutional: see HPI, chills EENTM: no symptoms reported Respiratory: no symptoms reported Cardiovascular: no symptoms reported Gastrointestinal: nausea Genitourinary: frequency, incontinence, other (frequent UTI's - followed by [facility]) Musculoskeletal: other (incr left leg pain in the last 24 hours) Skin: no symptoms reported Psychiatric/Neurological: Anxiety (ISRAEL BELL MD) All Other Systems Reviewed Negative Unless Noted: Yes (ISRAEL BELL MD) Past Cdsdiyj-Yzryvi-Amdeui Hx Immunizations Up To Date Tetanus Booster (TDap): Less than 5yrs Influenza Vaccine Up-to-Date: Yes; Up-to-Date First/Initial COVID19 Vaccinat: 09/2020 Second COVID19 Vaccination Jamar: 09/2020 Third COVID19 Vaccination Date: 09/2020 (ISRAEL BELL MD) Seasonal Allergies Seasonal Allergies: Yes (ISRAEL BELL MD) Past Medical History Surgery/Hospitalization HX: 03/2021 COPD/PNEUMONIA, AFIB RVR, HEART ABLATIONS, BLADDER ISSUES, 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 Surgeries: Yes (HIATAL HERNIA, L TKR, R HIP REPLACEMENT, BLADDER x8, BILAT FOOT SX) Orthopedic Respiratory: Yes Asthma, Sleep Apnea Currently Using CPAP: Yes Currently Using BIPAP: No Cardiac: Yes Atrial Fibrillation, Chronic Edema/Swelling, High Cholesterol, Hypertension Neurological: No Reproductive Disorders: No CADDY History: Menopausal Sexually Transmitted Disease: No Genitourinary: Yes (BOTOX FOR URINARY INCONT Q 6 MONTHS) Kidney Infection, Bladder Infection Gastrointestinal: Yes Gastroesophageal Reflux Musculoskeletal: Yes Arthritis, Chronic Back Pain Endocrine: No Diabetes, Non-Insulin dep Cataract Loss of Vision: Bilateral Hearing Impairment: Denies Cancer: No Psychosocial: Yes Anxiety, Depression Integumentary: No Blood Disorders: No Adverse Reaction/Blood Tranf: No (ISRAEL BELL MD) Family Medical History Arthritis 19 MOTHER Cataracts 19 FATHER 19 MOTHER Colon cancer 19 FATHER Deafness or hearing loss 19 FATHER Dementia 19 FATHER FH: macular degeneration 19 MOTHER FH: prostate cancer 19 FATHER FH: skin cancer 19 FATHER Gout 19 MOTHER Hypertension 19 FATHER 19 MOTHER Myocardial infarction 19 FATHER 19 MOTHER Physical Exam Vital Signs Vital Signs - First Documented 05/05/23 04:57 Temp 37.7 Pulse 65 Resp 20 B/P (MAP) 165/90 (115) Pulse Ox 95 O2 Delivery Room Air (WOODY CAMPO MD) Vital Signs Capillary Refill : Less Than 3 Seconds (ISRAEL BELL MD) Height, Weight, BMI Height: 5'7.00" Weight: 291lbs. 6.0oz. [id number]; 43.00 BMI Method:Stated General Appearance: No Apparent Distress, WD/WN, Anxious, Obese Eyes: Bilateral Eye Normal Inspection, Bilateral Eye PERRL, Bilateral Eye EOMI HEENT: PERRL/EOMI, Moist Mucous Membranes Neck: Normal Inspection Respiratory: Lungs Clear, Normal Breath Sounds, No Accessory Muscle Use, No Respiratory Distress Cardiovascular: Regular Rate, Rhythm, Normal Peripheral Pulses Gastrointestinal: Non Tender, Soft Extremity: Normal Capillary Refill, Normal Range of Motion Neurologic/Psychiatric: Alert, Oriented x3, No Motor/Sensory Deficits Skin: Normal Color, Warm/Dry (ISRAEL BELL MD) Progress/Results/Core Measures Suspected Sepsis SIRS Temperature: Pulse: 65 Respiratory Rate: 20 Blood Pressure 165 /90 Mean: 115 (ISRAEL BELL MD) Results/Orders Lab Results Laboratory Tests Test 05/05/23 05:19 05/05/23 05:34 Range/Units Urine Color YELLOW Urine Clarity CLEAR Urine pH 5.5 5-9 Urine Specific Babb 1.015 L 1.016-1.022 Urine Protein NEGATIVE NEGATIVE Urine Glucose (UA) NEGATIVE NEGATIVE Urine Ketones NEGATIVE NEGATIVE Urine Nitrite NEGATIVE NEGATIVE Urine Bilirubin NEGATIVE NEGATIVE Urine Urobilinogen 0.2 < = 1.0 MG/DL Urine Leukocyte Esterase NEGATIVE NEGATIVE Urine RBC (Auto) TRACE H NEGATIVE Urine RBC 0-2 /HPF Urine WBC 2-5 /HPF Urine Squamous Epithelial Cells 2-5 /HPF Urine Crystals NONE /LPF Urine Bacteria TRACE /HPF Urine Casts NONE /LPF Urine Mucus SMALL H /LPF Urine Culture Indicated NO White Blood Count 7.6 4.3-11.0 10^3/uL Red Blood Count 4.92 3.80-5.11 10^6/uL Hemoglobin 14.3 11.5-16.0 g/dL Hematocrit 43 35-52 % Mean Corpuscular Volume 88 80-99 fL Mean Corpuscular Hemoglobin 29 25-34 pg Mean Corpuscular Hemoglobin Concent 33 32-36 g/dL Red Cell Distribution Width 14.0 10.0-14.5 % Platelet Count 186 130-400 10^3/uL Mean Platelet Volume 9.3 9.0-12.2 fL Immature Granulocyte % (Auto) 1 % Neutrophils (%) (Auto) 84 H 42-75 % Lymphocytes (%) (Auto) 8 L 12-44 % Monocytes (%) (Auto) 7 0-12 % Eosinophils (%) (Auto) 1 0-10 % Basophils (%) (Auto) 0 0-10 % Neutrophils # (Auto) 6.4 1.8-7.8 10^3/uL Lymphocytes # (Auto) 0.6 L 1.0-4.0 10^3/uL Monocytes # (Auto) 0.5 0.0-1.0 10^3/uL Eosinophils # (Auto) 0.1 0.0-0.3 10^3/uL Basophils # (Auto) 0.0 0.0-0.1 10^3/uL Immature Granulocyte # (Auto) 0.1 0.0-0.1 10^3/uL Neutrophils % (Manual) 81 % Lymphocytes % (Manual) 9 % Monocytes % (Manual) 9 % Eosinophils % (Manual) 1 % Blood Morphology Comment NORMAL Sodium Level 142 135-145 MMOL/L Potassium Level 4.1 3.6-5.0 MMOL/L Chloride Level 107 98-107 MMOL/L Carbon Dioxide Level 25 21-32 MMOL/L Anion Gap 10 5-14 MMOL/L Blood Urea Nitrogen 14 7-18 MG/DL Creatinine 0.84 0.60-1.30 MG/DL Estimat Glomerular Filtration Rate 72 BUN/Creatinine Ratio 17 Glucose Level 115 H 70-105 MG/DL Calcium Level 9.4 8.5-10.1 MG/DL (WOODY CAMPO MD) My Orders Orders - WOODY CAMPO MD Urine Culture (05/05/23 06:46) (WOODY CAMPO MD) Medications Given in ED Current Medications Medications Dose Ordered Sig/Lisa Route Start Time Stop Time Status Last Admin Dose Admin Ondansetron HCl 4 mg ONCE ONCE IVP 05/05/23 05:15 05/05/23 05:16 DC 05/05/23 05:32 4 MG (WOODY CAMPO MD) Vital Signs/I&O 05/05/23 04:57 Temp 37.7 Pulse 65 Resp 20 B/P (MAP) 165/90 (115) Pulse Ox 95 O2 Delivery Room Air (WOODY CAMPO MD) Vital Signs/I&O Capillary Refill : Less Than 3 Seconds (ISRAEL BELL MD) Blood Pressure Mean: 115 Progress Note : Time: 06:53 Progress Note Care of this patient was assumed from Dr. Bell at shift change with pending chemistry. All labs were reviewed and interpreted by me. Urine demonstrated only scant to WBC and trace bacteria. It did not meet the threshold for automatic culture. However, because of her history of significant and complicated urinary tract infections, I offered to obtain a culture for her. Patient appreciated this offer and requested that the culture be ordered. I have recommended she review culture results with her PCP or urologist later this week. CBC was reviewed and was relatively unremarkable except relative lymphopenia was noted. This pattern can be seen with COVID-19 infection. I am uncertain if the same pattern can be seen with the new COVID vaccination. I offered COVID-19 testing which patient declined. She will return if symptoms worsen. See discharge instructions for further discussion. (WOODY CAMPO MD) Departure Impression Primary Impression: Malaise Additional Impressions: Adverse reaction to vaccine Qualified Codes: [id number] - Adverse effect of other vaccines and biological substances, initial encounter Frequent urinary tract infections Disposition: 01 HOME, SELF-CARE Condition: Stable Departure-Patient Inst. Decision time for Depature: 06:49 (WOODY CAMPO MD) Referrals: ANAY DARNELL DO (PCP/Family) Primary Care Physician Patient Instructions: Urinary Tract Infection, Adult ED Add. Discharge Instructions: There was no significant evidence of urinary tract infection on your urinalysis today. There was trace bacteria and 2-5 WBC (white blood cells) present but this does not reach the threshold for culture. Because of your significant history of urinary tract infections, a culture was ordered for further investigation. Results should be available in about 48 hours, likely sometime on Wednesday. Please contact your urologist or primary care provider to follow-up on culture results after 48 hours. Alternatively, you may contact the ER if you are unable to obtain results from one of your doctors. Expect some degree of aching, headache, elevated heart rate, and general malaise after receiving vaccinations. Your symptoms today may simply be related to receiving multiple vaccinations yesterday. You may treat with Tylenol (aceta minophen) up to 1000 mg every 6 hours as needed. Drink plenty of clear liquids to stay well-hydrated. If your symptoms are escalating and you need further evaluation, please return to the emergency room or contact your doctor. All discharge instructions reviewed with patient and/or family. Voiced understanding. Copy Copies To 1: ANAY DARNELL KATHRYN M MD May 05, 2023 05:16 WOODY CAMPO MD May 05, 2023 06:52
[2023-05-05 05:38] LABS: BASOPHILS % (AUTO) 0 % (0-10); EOSINOPHILS # (AUTO) 0.1 10^3/uL (0.0-0.3); EOSINOPHILS % (AUTO) 1 % (0-10); HEMATOCRIT 43 % (35-52); HEMOGLOBIN 14.3 g/dL (11.5-16.0); LYMPHOCYTES # (AUTO) 0.6 10^3/uL (1.0-4.0); LYMPHOCYTES % (AUTO) 8 % (12-44); MEAN CORPUSCULAR HEMOGLOBIN 29 pg (25-34); MEAN CORPUSCULAR HGB CONC 33 g/dL (32-36); MEAN CORPUSCULAR VOLUME 88 fL (80-99); MEAN PLATELET VOLUME 9.3 fL (9.0-12.2); MONOCYTES # (AUTO) 0.5 10^3/uL (0.0-1.0); MONOCYTES % (AUTO) 7 % (0-12); NEUTROPHILS # (AUTO) 6.4 10^3/uL (1.8-7.8); NEUTROPHILS % (AUTO) 84 % (42-75); PLATELET COUNT 186 10^3/uL (130-400); WHITE BLOOD COUNT 7.6 10^3/uL (4.3-11.0)
[2023-05-05 05:46] LABS: BILIRUBIN,URINE NEGATIVE (NEGATIVE); CLARITY,URINE CLEAR; COLOR,URINE YELLOW; GLUCOSE, URINE (UA) NEGATIVE (NEGATIVE); KETONES,URINE NEGATIVE (NEGATIVE); LEUKOCYTE ESTERASE ,URINE NEGATIVE (NEGATIVE); NITRITE,URINE NEGATIVE (NEGATIVE); PH,URINE 5.5 (5-9); PROTEIN,URINE NEGATIVE (NEGATIVE)
[2023-05-05 05:48] LABS: BACTERIA,URINE TRACE /HPF; RBC,URINE 0-2 /HPF
[2023-05-05 05:55] LABS: POTASSIUM 4.1 MMOL/L (3.6-5.0)
[2023-05-05 05:57] LABS: CALCIUM 9.4 MG/DL (8.5-10.1)
[2023-05-05 06:01] LABS: CREATININE SERUM 0.84 MG/DL (0.60-1.30)
[2023-05-05 06:14] LABS: EOSINOPHILS % (MANUAL) 1 %; LYMPHOCYTES % (MANUAL) 9 %; MONOCYTES % (MANUAL) 9 %; NEUTROPHILS % (MANUAL) 81 %
[2023-05-05 06:15] LABS: RBC MORPH NORMAL
[2023-05-05 07:01] VITALS: BP 144/80
== END 2023-05-05 07:02 | disposition home or self-care (01) ==
LOC: EDUNIT# 04:38 → ER 04:41
DX: R53.81 Other malaise (principal); T50.Z95A Adverse effect of other vaccines and biological substances, initial encounter; N39.0 Urinary tract infection, site not specified; R11.2 Nausea with vomiting, unspecified; E66.9 Obesity, unspecified; I48.91 Unspecified atrial fibrillation; G47.30 Sleep apnea, unspecified; Z99.89 Dependence on other enabling machines and devices; Z68.41 Body mass index [BMI] 40.0-44.9, adult; Z79.01 Long term (current) use of anticoagulants
CPT/HCPCS: 36415; 80048; 81000; 85007; 85027; 87088